=== PATIENT | female | born 1960 | race Caucasian/White ===

== ENCOUNTER 2023-01-17 10:10 | Inpatient (IN) | payer SELFPAY ==
[2023-01-17] VITALS (116 sets, daily range): BP systolic 42–114; BP diastolic 0–79; PULSE 64–83; RESP 14–33; TEMP 36.5–37; O2SAT 20–100; BMI 17.4
--- NOTE | 2023-01-17 10:31 | ECG_ITS ---
[facility] Test Date: 2023-01-17 Pat Name: LESVIA MALDONADO Department: Room: - Gender: Female Credit Support Specialist: : 1960 Requested By: [id number] Order Number: [id number] Reading MD: VANESSA CAVAZOS Measurements Intervals [place] Rate: 74 P: 67 MO: 174 QRS: 61 QRSD: 94 T: 66 QT: 412 QTc: 439 Interpretive Statements 1100 Sinus rhythm 1470 with occasional supraventricular premature complexes 9140 abnormal rhythm ECG No previous ECG available for comparison Electronically Signed On 01-18-2023 7:08:06 EDT by VANESSA CAVAZOS
--- NOTE | 2023-01-17 10:33 | ED.GENADUL1 ---
HPI - General Adult General Chief complaint: Nausea/Vomiting/Diarrhea Stated complaint: GENERAL WEAKNESS Time Seen by Provider: 01/17/23 10:17 Source: patient and family Limitations: no limitations History of Present Illness HPI narrative: 62-year-old female presents for weakness. She's been feeling this way for a few days. She's been having diarrhea. She has a history of rectal cancer and last had radiation about three weeks ago. She has not been vomiting and hasn't had a fever. She is not complaining of abdominal or fever. No cough or shortness of breath. She's been feeling weak. Related Data Home Medications Medication Instructions Recorded Confirmed benzonatate 100 mg capsule 100 mg PO TID PRN cough 01/17/23 01/17/23 buspirone 5 mg tablet 5 mg PO BID 01/17/23 01/17/23 capecitabine 500 mg tablet 1,500 mg PO BID PRN radiologic 01/17/23 01/17/23 visualization cetirizine 10 mg capsule (All Day 10 mg PO DAILY 01/17/23 01/17/23 Allergy (cetirizine)) diphenoxylate-atropine 2.5 1 tab PO BID 01/17/23 01/17/23 mg-0.025 mg tablet famotidine 20 mg tablet 20 mg PO BID 01/17/23 01/17/23 hydroxyzine pamoate 25 mg capsule 25 mg PO BEDTIME 01/17/23 01/17/23 lidocaine 5 % topical cream 1 applic topical TID PRN pain 01/17/23 01/17/23 (AneCream5) naloxone 4 mg/actuation nasal spray 4 mg intranasal Q3M 01/17/23 01/17/23 oxycodone 5 mg tablet 5 mg PO Q6H PRN pain 01/17/23 01/17/23 prochlorperazine maleate 10 mg 10 mg PO Q6H PRN nausea and 01/17/23 01/17/23 tablet (Compazine) vomiting sertraline 50 mg tablet 50 mg PO DAILY 01/17/23 01/17/23 silver sulfadiazine 1 % topical 1 applic topical BID 01/17/23 01/17/23 cream (Silvadene) Allergies Allergy/AdvReac Type Severity Reaction Status Date / Time No Known Drug Allergies Allergy Verified 01/17/23 10:30 Review of Systems ROS Narrative A ten point review of systems is negative except as noted above. Exam Narrative Exam Narrative: Nurses note and vital signs reviewed and patient is not hypoxic. General: The patient appears well and in no apparent distress. Patient is resting comfortably on cart. Skin: Warm, dry, pallor noted. There is no rash noted. Head: Normocephalic, atraumatic Eye: Normal conjunctiva, no drainage Ears, Nose, Mouth, and Throat: oral mucosa is moist. Nares patent. Cardiovascular: Regular Rate and Rhythm Respiratory: Patient is in no distress, no accessory muscle use, lungs are clear to auscultation, no wheezing, rales or rhonchi Back: non-tender GI: soft and nontender Musculoskeletal: The patient has no evidence of calf tenderness, no pitting edema, symmetrical pulses noted bilaterally Neurological: A&O, normal speech Psychiatric: Cooperative Constitutional Vital Signs, click to edit/add: Last Vital Signs Temp 97.7 F 01/17/23 10:19 Pulse 68 01/17/23 12:10 Resp 14 01/17/23 12:10 BP 74/30 L 01/17/23 12:19 Pulse Ox 98 01/17/23 10:25 O2 Del Method Room Air 01/17/23 10:19 Course Vital Signs Vital signs: Vital Signs Temperature 97.7 F 01/17/23 10:19 Pulse Rate 71 01/17/23 10:19 Respiratory Rate 24 01/17/23 10:19 Blood Pressure 80/50 L 01/17/23 10:19 Pulse Oximetry 96 01/17/23 10:19 Oxygen Delivery Method Room Air 01/17/23 10:19 Temperature 97.7 F 01/17/23 10:19 Pulse Rate 68 01/17/23 12:10 Respiratory Rate 14 01/17/23 12:10 Blood Pressure 74/30 L 01/17/23 12:19 Pulse Oximetry 98 01/17/23 10:25 Oxygen Delivery Method Room Air 01/17/23 10:19 Medical Decision Making MDM Narrative Medical decision making narrative: the patient is hypotensive. She's been given IV fluids and blood is ordered. Hemoglobin is 7.0 and stool is heme negative. I do not have an available hemoglobin for comparison. Chest x-ray per radiologist suggested the possibility of pneumonia but she doesn't have a fever or cough or an elevated WBC and she's not complaining of shortness of breath. I've low clinical suspicion for pneumonia. Nonetheless she is covered with IV Rocephin and Zithromax. I do not suspect that her hypotension is secondary to the pneumonia or sepsis. Findings are discussed with the patient and she is being admitted. Differential Diagnosis Differential Diagnosis: acute kidney injury, anemia Lab Data Lab results reviewed: Yes I reviewed the patient's lab results Labs: Lab Results 01/17/23 01/17/23 Range/Units 10:40 12:44 WBC 12.1 H (4.0-11.0) 10^3/uL RBC 1.83 L (4.20-5.40) 10^6/uL Hgb 7.0 L (12.0-16.0) g/dL Hct 21.4 L* (36.0-48.0) % MCV 116.9 H (81.0-99.0) fL MCH 38.3 H (26.7-34.0) pg MCHC 32.7 (29.9-35.2) g/dL RDW 21.9 H (11.0-15.0) % Plt Count 175 (150-450) 10^3/uL MPV 11.3 (9.5-13.5) fL Seg Neuts % (Manual) 85.0 Band Neutrophils % 7.0 H (0-5) % Lymphocytes % (Manual) 2.0 L (20.5-60.0) % Monocytes % (Manual) 2.0 (1.7-12.0) % Eosinophils % (Manual) 3.0 (0.9-7.0) % Basophils % (Manual) 0.0 L (0.2-2.0) % Metamyelocytes % 1.0 Myelocytes % 1.0 Neutrophils # (Manual) 10.28 H (1.4-6.5) 10^3/uL Band Neutrophils # 0.8 H (0.0-0.3) 10^3/uL Lymphocytes # (Manual) 0.24 L (1.20-3.80) 10^3/uL Monocytes # (Manual) 0.24 L (0.30-0.80) 10^3/uL Eosinophils # (Manual) 0.36 (0.00-0.70) 10^3/uL Basophils # (Manual) 0.00 (0.00-0.10) 10^3/uL Metamyelocytes # 0.12 Myelocytes # 0.12 Hypochromasia 2+ Macrocytosis 2+ Target Cells 1+ Stomatocytes 1+ Sodium 132 L (136-145) mmol/L Potassium 3.2 L (3.5-5.1) mmol/L Chloride 98 (98-107) mmol/L Carbon Dioxide 21.4 (21.0-32.0) mmol/L Anion Gap 15.8 BUN 34.0 H (7.0-18.0) mg/dL Creatinine 1.16 H (0.55-1.02) mg/dL Est GFR ( Amer) 57 L (>=60) Est GFR (Non-Af Amer) 47 L (>=60) BUN/Creatinine Ratio 29.3 Glucose 125 H (74-106) mg/dL Lactate 1.9 (0.4-2.0) mmol/L Calcium 8.4 L (8.5-10.1) mg/dL Troponin I High Sens 50.7 (4.0-51.3) pg/mL Stool Occult Blood Negative Imaging Data Chest x-ray: Radiologist's impression: Procedure: XR chest 1V EXAMINATION: XR chest 1V HISTORY: weak , hypotension, doesn't feel well, history of anal cancer COMPARISON: No relevant comparison available. FINDINGS: LUNGS: Dense patchy opacities within the left upper lobe. VASCULATURE: No increased pulmonary vasculature. PLEURA: No pneumothorax, effusion, or pleural thickening. CARDIAC: No cardiomegaly or cardiac silhouette abnormality. MEDIASTINUM: No visible mass or adenopathy. BONES: No fracture or visible bone lesion. OTHER: Negative. IMPRESSION: 1. Suspect left upper lobe pneumonia. A mass cannot be excluded. Follow-up chest x-ray after treatment is recommended to document clearing. Electronically authenticated by: SARAH MACIAS Date: 01/17/2023 13: Discharge Plan Discharge Chief Complaint: Nausea/Vomiting/Diarrhea Clinical Impression: Acute hypotension, Anemia, Lung mass Patient Disposition: Admitted As Inpatient Time of Disposition Decision: 14:37 Condition: Good Prescriptions / Home Meds: No Action buspirone 5 mg tablet 5 mg PO BID benzonatate 100 mg capsule 100 mg PO TID PRN (Reason: cough) capecitabine 500 mg tablet 1,500 mg PO BID PRN (Reason: radiologic visualization) Rx Instructions: TAKE 3 TABLETS 12 HR APART MON-FRI ON EACH DAY OF RADIATION All Day Allergy (cetirizine) 10 mg capsule 10 mg PO DAILY diphenoxylate-atropine 2.5-0.025 mg tablet 1 tab PO BID famotidine 20 mg tablet 20 mg PO BID hydroxyzine pamoate 25 mg capsule 25 mg PO BEDTIME lidocaine [AneCream5] 5 % cream 1 applic topical TID PRN (Reason: pain) naloxone 4 mg/actuation spray,non-aerosol 4 mg intranasal Q3M Rx Instructions: spray 1 dose into ONE nostril; alternate nostrils w each dose until help arrives oxycodone 5 mg tablet 5 mg PO Q6H PRN (Reason: pain) prochlorperazine maleate [Compazine] 10 mg tablet 10 mg PO Q6H PRN (Reason: nausea and vomiting) sertraline 50 mg tablet 50 mg PO DAILY silver sulfadiazine [Silvadene] 1 % cream 1 applic topical BID Rx Instructions: apply a 1.5 mm thickness Referrals: Physician,Non-Staff, MD [Primary Care Provider] - 1 week
[2023-01-17] MEDS: 0.9 % SODIUM CHLORIDE 1,000 ML 1000 ML IV ×3 (10:48→16:23)
[2023-01-17 10:50] LABS: Mean Corpuscular HGB Conc 32.7 g/dL (29.9-35.2); Mean Corpuscular Hemoglobin 38.3 pg (26.7-34.0); Mean Corpuscular Volume 116.9 fL (81.0-99.0); Mean Platelet Volume 11.3 fL (9.5-13.5); Platelet Count 175 10^3/uL (150-450); Red Blood Count 1.83 10^6/uL (4.20-5.40); Red Cell Distribution Width 21.9 % (11.0-15.0); White Blood Count 12.1 10^3/uL (4.0-11.0)
[2023-01-17 10:53] LABS: Hematocrit 21.4 % (36.0-48.0)
[2023-01-17 11:19] LABS: Anion Gap 15.8; BUN Creatinine Ratio 29.3; Calcium 8.4 mg/dL (8.5-10.1); Carbon Dioxide 21.4 mmol/L (21.0-32.0); Chloride 98 mmol/L (98-107); Estimated GFR (African America 57 (>=60); Estimated GFR (Non-African Ame 47 (>=60); Glucose 125 mg/dL (74-106); Potassium 3.2 mmol/L (3.5-5.1); Sodium 132 mmol/L (136-145)
[2023-01-17 11:30] LABS: Troponin I High Sensitivity 50.7 pg/mL (4.0-51.3)
[2023-01-17 11:35] LABS: Band Neutrophils Absolute 0.8 10^3/uL (0.0-0.3); Segmented Neut Absolute Manual 10.28 10^3/uL (1.4-6.5)
[2023-01-17 11:36] LABS: Eosinophils Absolute Manual 0.36 10^3/uL (0.00-0.70); Lymphocytes Absolute Manual 0.24 10^3/uL (1.20-3.80); Metamyelocytes Absolute Manual 0.12; Monocytes Absolute Manual 0.24 10^3/uL (0.30-0.80); Myelocytes Absolute Manual 0.12
[2023-01-17 11:37] LABS: Hypochromasia 2+
[2023-01-17 11:38] LABS: Macrocytosis 2+; Stomatocytes 1+; Target Cells 1+
--- NOTE | 2023-01-17 12:53 | XR_ITS ---
The [address] [address] Patient Name: LESVIA MALDONADO MRN: [id number] date: 1960 Sex: F Assigned Patient Location: ER Current Patient Location: ER Accession/Order Number: [id number] Exam Date: 01/17/2023 12:48 Report Date: 01/17/2023 13:25 At the request of: ANITRA LOVE Procedure: XR chest 1V EXAMINATION: XR chest 1V HISTORY: weak , hypotension, doesn't feel well, history of anal cancer COMPARISON: No relevant comparison available. FINDINGS: LUNGS: Dense patchy opacities within the left upper lobe. VASCULATURE: No increased pulmonary vasculature. PLEURA: No pneumothorax, effusion, or pleural thickening. CARDIAC: No cardiomegaly or cardiac silhouette abnormality. MEDIASTINUM: No visible mass or adenopathy. BONES: No fracture or visible bone lesion. OTHER: Negative. XR/XR chest 1V IMPRESSION: 1. Suspect left upper lobe pneumonia. A mass cannot be excluded. Follow-up chest x-ray after treatment is recommended to document clearing. Electronically authenticated by: SARAH MACIAS Date: 01/17/2023 13:25
[2023-01-17] MEDS: CEFTRIAXONE 1,000 MG in 0.9 % SODIUM CHLORIDE 50 ML 100 MG IV (13:49)
[2023-01-17 13:51] LABS: Occult Blood Negative
[2023-01-17 14:00] LABS: Lactate/Lactic Acid 1.9 mmol/L (0.4-2.0)
[2023-01-17] MEDS: AZITHROMYCIN 500 MG in 0.9 % SODIUM CHLORIDE 250 ML 250 MG IV (14:17)
[2023-01-17 15:24] LABS: Hematocrit 15.8 % (36.0-48.0); Hemoglobin 5.1 g/dL (12.0-16.0)
--- NOTE | 2023-01-17 15:55 | P.HP_ITS ---
Patient seen and examined, agree with assessment and plan below. Presented with hypotension and anemia. C/o cough and SOB and found pneumonia. Started on zosyn. Continued IV fluids and gave 2 units PRBC. Monitor Hgb. BP continued to decline and started levophed. Monitor labs. Diagnosis: 1. Septic shock 2. Pnemonia 3. Anemia due to chemo 4.HERB 5. Dehydration 6. Radiaton colitis 7. Hypokalemia 8. Hyponatremia 9. Rectal cancer 10. PCM H&P: HPI History of Present Illness Chief complaint: SEPSIS/PNA/HYPOTENSION/HERB/DEHYDRATION/ANEMIA Narrative: Date/Time of exam: 01/17/23 4386 This is a 62-year-old female patient with a past medical history significant for anal cancer s/p 6-week course of chemotherapy and radiation, depression, And environmental allergies; who presented to the ED today complaining of severe generalized weakness and fatigue. The patient was diagnosed with rectal cancer approximately 1 year ago. She was initiated on a 6-week course of chemotherapy and radiation in October and this was completed at the end of November. Since the completion of her therapy she has had almost daily diarrhea. She has not noted any blood in her stool. She does not complain of abdominal cramping or pain with her diarrhea and denies any significant nausea and vomiting. She has had a very poor appetite over the last month. She began coughing about 10 days ago which is intermittently productive of clear sputum. She reports subjective fevers and chills with measured a low-grade temperature of 99.4 at least once at home. She reports being lightheaded and severely weak for the last week. When she was having difficulty ambulating from the bed to the bathroom she decided to present to the ED for further evaluation. Work-up in the ED revealed significant abnormalities including anemia (7.0), leukocytosis (12.1), mild hyponatremia (132), hypokalemia (3.2), HERB (BUN 34, CR 1.16, EGFR 47). A Lactic acid was 1.9, troponin 50.7, and a fecal occult blood was negative for occult bleeding. Chest x-ray revealed a left upper lobe pneumonia which cannot exclude mass. The patient's blood pressure was very low, initially 80/50 but dropped down to 43/30 during her time in the ED. She was treated with 2 L of IVF boluses and 2 units of PRBCs have been ordered. A repe at [facility] that was obtained just prior to blood administration revealed her hemoglobin had dropped to 5.1, likely from hemodilution. The patient is being admitted as an inpatient to the hospitalist service in ICU with suspected sepsis from pneumonia, severe hypotension/septic shock, severe anemia, left upper lobe pneumonia, HERB, hyponatremia, and hypokalemia. At the time of my exam the patient is resting on a cart in the ED with her spouse at the bedside. She is very pale and somewhat lethargic but remains awake and cooperative with exam and oriented x3. She is cachectic and reports very poor appetite for the last month. She denies chest pain, shortness of breath, significant nausea and vomiting, abdominal pain or any other acute complaint other than noted above. She has noted significant lightheadedness and severe fatigue over the last 1 week. After discussion with the patient and her spouse at the bedside she confirms that she is a full code. Review of Systems ROS Status of ROS 10 or more systems reviewed and unremarkable except as noted in history and below [facility] Medical History (Updated 01/18/23 @ 09:04 by Pratibha Powers NP) Acute hypotension ?I95.9 - Hypotension, unspecified (ICD-10) Anemia ?D64.9 - Anemia, unspecified (ICD-10) Depression ?F32.A - Depression, unspecified (ICD-10) Diarrhea ?R19.7 - Diarrhea, unspecified (ICD-10) GERD (gastroesophageal reflux disease) ?K21.9 - Gastro-esophageal reflux disease without esophagitis (ICD-10) Lung mass ?R91.8 - Other nonspecific abnormal finding of lung field (ICD-10) Meds Home Medications and Allergies Home Medications Medication Instructions Recorded Confirmed Type benzonatate 100 mg capsule 100 mg PO TID PRN cough 01/17/23 01/17/23 History buspirone 5 mg tablet 5 mg PO BID 01/17/23 01/17/23 History capecitabine 500 mg tablet 1,500 mg PO BID PRN radiologic 01/17/23 01/17/23 History visualization cetirizine 10 mg capsule (All Day 10 mg PO DAILY 01/17/23 01/17/23 History Allergy (cetirizine)) diphenoxylate-atropine 2.5 1 tab PO BID 01/17/23 01/17/23 History mg-0.025 mg tablet famotidine 20 mg tablet 20 mg PO BID 01/17/23 01/17/23 History hydroxyzine pamoate 25 mg capsule 25 mg PO BEDTIME PRN sleep 01/17/23 01/17/23 History lidocaine-prilocaine 2.5 %-2.5 % 1 applic topical TID PRN pain 01/17/23 01/17/23 History topical cream naloxone 4 mg/actuation nasal spray 4 mg intranasal Q3M 01/17/23 01/17/23 History oxycodone 5 mg tablet 5 mg PO Q6H PRN pain 01/17/23 01/17/23 History pantoprazole 20 mg tablet,delayed 20 mg PO DAILY 01/17/23 01/17/23 History release (Protonix) prochlorperazine maleate 10 mg 10 mg PO Q6H PRN nausea and 01/17/23 01/17/23 History tablet (Compazine) vomiting sertraline 50 mg tablet 50 mg PO DAILY 01/17/23 01/17/23 History silver sulfadiazine 1 % topical 1 applic topical BID 01/17/23 01/17/23 History cream (Silvadene) Allergies Allergy/AdvReac Type Severity Reaction Status Date / Time No Known Drug Allergies Allergy Verified 01/17/23 10:30 Exam Constitutional Vital Signs, click to edit/add: Last Vital Signs Temp 97.7 F 01/17/23 10:19 Pulse 69 01/17/23 15:20 Resp 15 01/17/23 15:20 BP 78/0 L 01/17/23 15:20 Pulse Ox 98 01/17/23 10:25 O2 Del Method Room Air 01/17/23 10:19 Documenting provider has reviewed patient's vital signs: yes Common normals: oriented x3 and alert General appearance: cooperative, anxious, lethargic and frail appearing Nutritional appearance: cachectic Orientation/consciousness: Yes awake HENMT Common normals: normocephalic, head/scalp atraumatic, hearing grossly normal bilaterally, external ears normal and external nose normal; oral mucous membranes not moist (very dry) and gingiva not normal (very pale) Head and scalp: normocephalic and atraumatic Face and sinus: normal facial exam Nose: external nose normal External ear: external ears normal Mouth: tongue not abnormal Eye Common normals: PERRL, EOMs intact bilaterally and no scleral icterus; conjunctivae abnormal (very pale) General eye: normal appearance of both eyes Alignment: alignment normal Eyelid: eyelids normal Pupil: PERRL Neck & C-Spine Common normals: full ROM, supple and no JVD Chest Common normals: inspection of chest normal Chest: symmetrical chest wall rise Respiratory Common normals: normal respiratory effort, no retractions, no use of accessory muscles and clear to auscultation bilaterally Effort & inspection: able to speak in complete sentences Auscultation: clear to auscultation bilaterally Cardio Common normals: no JVD, regular rate, regular rhythm, S1 normal heart sound, S2 normal heart sound, no gallops, no clicks, no murmurs, no rub and peripheral pulses 2+ throughout Rate: regular rate Rhythm: regular rhythm Heart sounds: S1 normal and S2 normal Peripheral pulses: pulses 2+ throughout GI Common normals: Normal to inspection, nondistended, normoactive bowel sounds present, soft to palpation, non-tender, no hepatosplenomegaly, no masses and no bruits Palpation: soft and no hepatosplenomegaly Bladder/kidney exam: bladder normal to palpation Bimanual exam- vagina & uterus: bladder normal to palpation Back & Pelvis Common normals: thoracic and lumbar spine normal to inspection Extremity Common normals: normal capillary refill and no pedal edema General: normal exam except as noted; no clubbing and no cyanosis Neuro [place] Coma Scale: document GCS findings [place] coma scale eye opening: Spontaneous Cira coma scale verbal response: Orientated Cira coma scale motor response: Obey commands Cira coma scale total score: 15 Common normals: oriented x3, CN's II-XII intact bilaterally, moves all extremities, no focal motor deficits and no sensory deficits noted Sensorium/orientation: awake and alert Speech: speech normal Motor exam: strength 5/5 throughout Psych Common normals: mental status grossly normal, thought process normal, affect normal and activity/motor behavior normal Thought process: normal thought process Results Labs Labs: Short CBC 01/17/23 01/17/23 Range/Units 10:40 14:49 WBC 12.1 H (4.0-11.0) 10^3/uL Hgb 7.0 L 5.1 L* (12.0-16.0) g/dL Hct 21.4 L* 15.8 L* (36.0-48.0) % Plt Count 175 (150-450) 10^3/uL BMP 01/17/23 10:40 Sodium 132 L Potassium 3.2 L Chloride 98 Carbon Dioxide 21.4 BUN 34.0 H Creatinine 1.16 H Glucose 125 H Calcium 8.4 L Pulse Oximetry Attestation: I have reviewed the pertinent pulse oximetry results. ECG Attestation: ?I have reviewed the pertinent ECG results. Prior ECG tracings: not available for review Interpretation: Interpretive Statements 1100 Sinus rhythm 1470 with occasional supraventricular premature complexes 9140 abnormal rhythm ECG No previous ECG available for comparison Imaging Chest x-ray: Attestation: I have reviewed the pertinent imaging results. Radiologist's impression: IMPRESSION: 1. Suspect left upper lobe pneumonia. A mass cannot be excluded. Follow-up chest x-ray after treatment is recommended to document clearing. Assessment and Plan Assessment and Plan (1) Septic shock: Assessment and Plan: ACUTE * Adm inpatient to ICU * Suspected 2/2 to Pneumonia in an immunosuppressed pt * Severe volume contraction, in setting of dehydration and severe anemia, is at least contributing if not the primary cause of severe hypotension * Sepsis AEB: * SEP1 criteria: RR 24, WBC 12.1, MAP 60, Source - LEI PNA * SEP3 criteria: qSOFA of 2 (SBP 43-80, RR 24-33), Source - LEI PNA * 2 liters IVF boluses given in ED. Give a 3rd liter bolus now * Meets 30 ml/kg bolus + * delayed cap refill but no mottling * Pt alert and oriented, somewhat lethargic * 2un PRBCs ordered - transfuse now * Likely initiate levophed gtt per ICU protocol to keep MAP > 65 if BP does not stabilize after 3rd bolus * Lactic acid WNL but borderline at 1.9 - repeat now * Procalcitonin now * CMP now for full end organ evaluation * IVPB ABX as noted below * BC x 2 drawn in ED (2) Pneumonia: Assessment and Plan: ACUTE * LEI infiltrate noted CXR * Cough and subjective fever/chills x 10 days * Cannot r/o lung mass based on imaging * Repeat CXR in AM * Consider CT chest pending clinical course * IVPB Rocephin & Azithromycin given in ED. D/C * Start Zosyn IVPB for broad gram neg coverage including pseudomonas in immunosuppressed pt * Low threshold to add broader gram pos coverage like vanco pending clinical course * CBC, CMP daily (3) Dehydration: Assessment and Plan: ACUTE * 2/2 prolonged diarrhea and poor oral intak * 3 Liter IVF boluses then LR at 125/hr * CMP in AM (4) HERB (acute kidney injury): Assessment and Plan: ACUTE * Likely d/t dehydration and volume contraction - SE of chemotherapy also possible * IVFs as above * Hold renal toxic meds if any * repeat CMP in AM (5) Anemia associated with chemotherapy: Assessment and Plan: ACUTE * Hgb 7.0 in ED, down to 5.1 post 2L IVF boluses * Suspect 2/2 chemotherapy and depressed RBC production * No evidence of active bleeding * Pt denies black or bloody stools * FOB neg in ED * 2 un PRBCs ordered to transfuse - pending * HH q6h for now for close monitoring * Protonix IVP for GI protection * CBC daily (6) Hypokalemia: Assessment and Plan: ACUTE * Suspect GI losses w/ persistent diarrhea. 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 * Suspected * Significant daily diarrhea x 1 month or more since radiation treatments * Obtain c-diff to ensure no infectious origin * Consider oncology consult pending clinical course * Consider lamotil once c-diff is negative (9) Protein-calorie malnutrition, severe: Assessment and Plan: SUB-ACUTE * Weight loss d/t poor appetite, chemotherapy/radiation, active cancer * Ballast Cleaning Operator consult * Strict I&O * Daily weights (10) Depression: Assessment and Plan: CHRONIC * Continue home SSRI (11) GERD (gastroesophageal reflux disease): Assessment and Plan: CHRONIC * Hold home famotidine * Start daily IVP PPI (12) Rectal cancer: Assessment and Plan: CHRONIC * Defer to outpatient management per oncology at [facility]
[2023-01-17] MEDS: POTASSIUM CHLORIDE 40 MEQ in 0.9 % SODIUM CHLORIDE 250 ML 67.5 MEQ IV ×2 (17:00→22:53)
[2023-01-17] MEDS: POTASSIUM CHLORIDE 10 MEQ ER TABLET 40 MEQ PO (17:06)
[2023-01-17] MEDS: PANTOPRAZOLE SODIUM 40 MG VIAL IV (17:06)
[2023-01-17] MEDS: LACTATED RINGER'S SOLUTION 1,000 ML 125 ML IV (17:11)
[2023-01-17 17:32] LABS: Lactate/Lactic Acid 0.8 mmol/L (0.4-2.0)
[2023-01-17] MEDS: NOREPINEPHRINE BITARTRATE 4 MG in DEXTROSE 5 % IN WATER 250 ML 38.1 MG IV ×2 (17:45→23:36)
[2023-01-17 18:15] LABS: Adenovirus NOT DETECTED (NOT DETECTE); Bordetella parapertussis NOT DETECTED (NOT DETECTE); Coronavirus 229E NOT DETECTED (NOT DETECTE); Coronavirus HKU1 NOT DETECTED (NOT DETECTE); Coronavirus NL63 NOT DETECTED (NOT DETECTE); Coronavirus OC43 NOT DETECTED (NOT DETECTE); Human Metapneumovirus NOT DETECTED (NOT DETECTE); Human Rhinovirus/Enterovirus NOT DETECTED (NOT DETECTE); Influenza A NOT DETECTED (NOT DETECTE); Influenza B NOT DETECTED (NOT DETECTE); Mycoplasma pneumoniae NOT DETECTED (NOT DETECTE); Parainfluenza Virus 1 NOT DETECTED (NOT DETECTE); Parainfluenza Virus 2 NOT DETECTED (NOT DETECTE); Parainfluenza Virus 3 NOT DETECTED (NOT DETECTE); Parainfluenza Virus 4 NOT DETECTED (NOT DETECTE); Respiratory Syncytial Virus NOT DETECTED (NOT DETECTE); SARS-CoV-2 NOT DETECTED (NOT DETECTE)
[2023-01-17] MEDS: PIPERACILLIN SODIUM/TAZOBACTAM 3.375 GM in 0.9 % SODIUM CHLORIDE 50 ML IV (22:53)
[2023-01-17 22:59] LABS: Hematocrit 28.4 % (36.0-48.0); Hemoglobin 9.3 g/dL (12.0-16.0)
[2023-01-18] VITALS (96 sets, daily range): BP systolic 68–156; BP diastolic 37–130; PULSE 62–87; RESP 12–33; TEMP 36.6–36.9; O2SAT 93–98
[2023-01-18] MEDS: LACTATED RINGER'S SOLUTION 1,000 ML 125 ML IV ×2 (00:32→08:53)
[2023-01-18 03:48] LABS: Basophils Percent Auto 0.2 % (0.2-2.0); Eosinophils Percent Auto 0.2 % (0.9-7.0); Hemoglobin 9.1 g/dL (12.0-16.0); Immature Granulocytes Abs Auto 0.39 10^3/uL (0.00-0.03); Immature Granulocytes Pct Auto 2.3 % (0.0-0.5); Lymphocytes Absolute Auto 0.2 10^3/uL (1.2-3.8); Lymphocytes Percent Auto 1.2 % (20.5-60.0); Mean Corpuscular HGB Conc 33.7 g/dL (29.9-35.2); Mean Corpuscular Hemoglobin 35.3 pg (26.7-34.0); Mean Corpuscular Volume 104.7 fL (81.0-99.0); Mean Platelet Volume 10.8 fL (9.5-13.5); Monocytes Absolute Auto 0.9 10^3/uL (0.3-0.8); Monocytes Percent Auto 5.3 % (1.7-12.0); Neutrophils Absolute Auto 15.6 10^3/uL (1.4-6.5); Neutrophils Percent Auto 90.8 % (43.0-75.0); Platelet Count 179 10^3/uL (150-450); Red Blood Count 2.58 10^6/uL (4.20-5.40); Red Cell Distribution Width 24.9 % (11.0-15.0); White Blood Count 17.2 10^3/uL (4.0-11.0)
[2023-01-18 04:07] LABS: Alanine Aminotransferase 17 U/L (14-59); Albumin Globulin Ratio 0.5; Albumin Level 1.7 g/dL (3.4-5.0); Alkaline Phosphatase 219 U/L (46-116); Anion Gap 11.7; Aspartate Amino Transferase 34 U/L (15-37); BUN Creatinine Ratio 20.4; Bilirubin Total 1.1 mg/dL (0.2-1.0); Calcium 7.5 mg/dL (8.5-10.1); Carbon Dioxide 20.6 mmol/L (21.0-32.0); Chloride 107 mmol/L (98-107); Estimated GFR (African America >60 (>=60); Estimated GFR (Non-African Ame 57 (>=60); Globulin 3.4 g/dL; Glucose 130 mg/dL (74-106); Potassium 5.3 mmol/L (3.5-5.1); Sodium 134 mmol/L (136-145); Total Protein 5.1 g/dL (6.4-8.2)
[2023-01-18] MEDS: PIPERACILLIN SODIUM/TAZOBACTAM 3.375 GM in 0.9 % SODIUM CHLORIDE 50 ML IV ×3 (06:05→21:09)
--- NOTE | 2023-01-18 07:00 | XR_ITS ---
The [address] [address] Patient Name: LESVIA MALDONADO MRN: [id number] date: 1960 Sex: F Assigned Patient Location: ICU Current Patient Location: ICU Accession/Order Number: [id number] Exam Date: 01/18/2023 06:20 Report Date: 01/18/2023 07:13 At the request of: CATALINO KELLEY Procedure: XR chest 1V EXAMINATION: XR chest 1V HISTORY: PNA surveillance COMPARISON: XR chest 01/17/2023 FINDINGS: LUNGS: Dense patchy and confluent opacities within left upper lobe. Right lung is clear. VASCULATURE: No increased pulmonary vasculature. PLEURA: No pneumothorax, effusion, or pleural thickening. CARDIAC: No cardiomegaly or cardiac silhouette abnormality. MEDIASTINUM: No visible mass or adenopathy. BONES: No fracture or visible bone lesion. OTHER: Negative. XR/XR chest 1V IMPRESSION: 1. Marked infiltrates within left upper lobe; increased since prior study. Electronically authenticated by: SARAH MACIAS Date: 01/18/2023 07:13
[2023-01-18] MEDS: NOREPINEPHRINE BITARTRATE 4 MG in DEXTROSE 5 % IN WATER 250 ML 38.1 MG IV ×2 (07:37→14:53)
[2023-01-18 08:54] LABS: Alanine Aminotransferase 42 U/L (14-59); Albumin Globulin Ratio 0.5; Albumin Level 2.1 g/dL (3.4-5.0); Alkaline Phosphatase 276 U/L (46-116); Aspartate Amino Transferase 105 U/L (15-37); Bilirubin Total 0.5 mg/dL (0.2-1.0); Total Protein 6.1 g/dL (6.4-8.2)
[2023-01-18] MEDS: SERTRALINE HCL 50 MG TABLET PO (09:08)
[2023-01-18] MEDS: BUSPIRONE HCL 10 MG TABLET 5 MG PO ×2 (09:08→21:02)
[2023-01-18] MEDS: SILVER SULFADIAZINE 1% CREAM 25 GM TUBE 1 APPLIC TOPICAL ×2 (09:09→21:03)
[2023-01-18 10:10] LABS: Potassium 4.3 mmol/L (3.5-5.1)
[2023-01-18 10:20] LABS: Lactate/Lactic Acid 0.9 mmol/L (0.4-2.0)
--- NOTE | 2023-01-18 10:39 | CM.NOTE ---
Rounds made with Dr. Velazquez. Dr. Velazquez discussed plan of care with Amber. He will be adding Solumedrol IV, breathing treatments, Robitussin for cough and would like a stool sample collected. Would also like Amber to work with PT/OT for her c/o weakness. Amebr verbalizes agreement with all.
--- NOTE | 2023-01-18 10:49 | CM.NOTE ---
Discussed with Amber that I would have a Financial Counselor speak with her and see what we maybe able to help her with in regards to financial status. Amber was agreeable. Financial Counselors notified regarding self pay status
--- NOTE | 2023-01-18 11:06 | P.PN_ITS ---
Patient seen and examined, agree with assessment and plan. Hgb stable. BP remains low and wean levophed. Continue antibiotics. Added steroids and duoneb. Diagnosis: 1. Septic shock 2. Pnemonia 3. Anemia due to chemo 4.HERB 5. Dehydration 6. Radiaton colitis 7. Hypokalemia 8. Hyponatremia 9. Rectal cancer 10. PCM Progress Note: Subjective Subjective Interval history: Date/Time of Exam: 01/18/23 1008 The patient is currently resting in bed. She reports feeling better , stating I can breathe . She is not currently requiring O2 supplementation, but her respiratory rate was intermittently elevated above 30 overnight, but is currently well controlled. On my exam I do not appreciate wheezing but states lung sounds at the LEI are significantly diminished. Chest x-ray obtained this morning shows worsening infiltrate, likely because the patient has now been rehydrated. Patient is also requiring Levophed pressor support at this time but nursing will attempt to wean off if able to keep her map above 65. Her potassium level was elevated this morning above what was expected. We will repeat a potassium level now as this may reflect lab error. If in fact her potassium does remain elevated we will initiate treatment modalities as indicated. In general the patient's condition is improving but is still guarded. Exam Constitutional Vital Signs, click to edit/add: Last Vital Signs Temp 98.4 F 01/18/23 08:00 Pulse 75 01/18/23 08:00 Resp 18 01/18/23 08:00 BP 90/62 01/18/23 08:00 Pulse Ox 97 01/18/23 08:00 O2 Del Method Room Air 01/18/23 08:00 Common normals: no apparent distress, oriented x3 and alert General appearance: cooperative and other (Lethargy resolved) Nutritional appearance: cachectic Orientation/consciousness: Yes awake HENMT Common normals: normocephalic, head/scalp atraumatic and hearing grossly normal bilaterally Head and scalp: normocephalic and atraumatic Eye Common normals: PERRL, EOMs intact bilaterally, conjunctivae normal and no scleral icterus General eye: normal appearance of both eyes Conjunctiva: conjunctiva(e) normal Pupil: PERRL Neck & C-Spine Common normals: no JVD Chest Common normals: inspection of chest normal Chest: symmetrical chest wall rise Respiratory Common normals: normal respiratory effort, no use of accessory muscles and clear to auscultation bilaterally Effort & inspection: able to speak in complete sentences Auscultation: clear to auscultation bilaterally and diminished lung sounds (LEI) Cardio Common normals: no JVD, regular rate, regular rhythm, S1 normal heart sound, S2 normal heart sound, no gallops, no clicks, no murmurs, no rub and peripheral pulses 2+ throughout Rate: regular rate Rhythm: regular rhythm Heart sounds: S1 normal and S2 normal Peripheral pulses: pulses 2+ throughout GI Common normals: Normal to inspection, nondistended, normoactive bowel sounds present, soft to palpation, non-tender and no hepatosplenomegaly Palpation: soft and no hepatosplenomegaly Bladder/kidney exam: bladder normal to palpation Extremity Common normals: normal to inspection and no calf tenderness General: no clubbing, no cyanosis and no edema Neuro Common normals: oriented x3, CN's II-XII intact bilaterally, moves all extremities, no focal motor deficits and no sensory deficits noted Sensorium/orientation: awake and alert Psych Common normals: mental status grossly normal Progress Note: Objective Labs Labs: Short CBC 01/17/23 01/17/23 01/18/23 Range/Units 14:49 22:54 03:40 WBC 17.2 H (4.0-11.0) 10^3/uL Hgb 5.1 L* 9.3 L 9.1 L (12.0-16.0) g/dL Hct 15.8 L* 28.4 L 27.0 L (36.0-48.0) % Plt Count 179 (150-450) 10^3/uL BMP 01/17/23 01/18/23 01/18/23 10:40 03:40 09:49 Sodium 132 L 134 L Potassium 3.2 L 5.3 H 4.3 Chloride 98 107 Carbon Dioxide 21.4 20.6 L BUN 34.0 H 20.0 H Creatinine 1.16 H 0.98 Glucose 125 H 130 H Calcium 8.4 L 7.5 L Liver Function 01/17/23 01/18/23 Range/Units 10:40 03:40 Total Bilirubin 0.5 1.1 H (0.2-1.0) mg/dL AST 105 H 34 (15-37) U/L ALT 42 17 (14-59) U/L Alkaline Phosphatase 276 H 219 H (46-116) U/L Albumin 2.1 L 1.7 L (3.4-5.0) g/dL Pulse Oximetry Attestation: I have reviewed the pertinent pulse oximetry results. Imaging Chest x-ray: Attestation: I have reviewed the pertinent imaging results. Radiologist's impression: IMPRESSION: 1. Marked infiltrates within left upper lobe; increased since prior study. Progress Note: A&P Assessment and Plan (1) Septic shock: Assessment and Plan: ACUTE * Slightly improved - condition still guarded * Suspected 2/2 to Pneumonia in an immunosuppressed pt * Severe volume contraction, in setting of dehydration and severe anemia, is at least contributing if not the primary cause of severe hypotension * Sepsis AEB: * SEP1 criteria: RR 24, WBC 12.1, MAP 60, Source - LEI PNA * SEP3 criteria: qSOFA of 2 (SBP 43-80, RR 24-33), Source - LEI PNA * Pt currently on Levophed pressor support to keep MAP > 65 * Significant hypotension refractory to adequate fluid resuscitation and PRBC transfusions * Nursing to titrate down/off if BP supports this * Lactic acid remains WNL * Procalcitonin now - sendout, result pending * IVPB ABX as noted below * BC x 2 drawn in ED - result pending (2) Pneumonia: Assessment and Plan: ACUTE * LEI infiltrate noted on CXR on admission * Cough and subjective fever/chills x 10 days * Worsening on CXR today after pt rehydrated * Dyspnea/SOB improved today * Cannot r/o lung mass based on imaging * Consider CT chest pending clinical course * Continue Zosyn IVPB for broad gram neg coverage including pseudomonas in immunosuppressed pt * Add Vancomycin for broader gram pos coverage in immunosuppressed pt * Sputum culture if possible to guide ABX coverage * Add solumedrol, guaifenisen, and breathing tx today * Wheezing appreciated by attending physician on exam * Consider supplemental O2 if hypoxia or sustained tachypnea/dyspnea is noted * CBC, CMP daily (3) Anemia associated with chemotherapy: Assessment and Plan: ACUTE Laboratory Tests 01/17/23 01/17/23 01/17/23 10:40 14:49 22:54 Hgb 7.0 L 5.1 L* 9.3 L 01/18/23 03:40 Hgb 9.1 L * Improved/stable after 2 un PRBC transfusions overnight * Suspect 2/2 chemotherapy/radiation and depressed RBC production * No evidence of active bleeding * Pt denies black or bloody stools * FOB neg in ED * HH q6h x 2 more then d/c * Protonix IVP for GI protection * CBC daily (4) HERB (acute kidney injury): Assessment and Plan: ACUTE Laboratory Tests 01/17/23 01/17/23 01/17/23 10:40 10:40 10:40 BUN 34.0 H Creatinine 1.16 H Est GFR (Non-Af Amer) 47 L 01/18/23 01/18/23 01/18/23 03:40 03:40 03:40 BUN 20.0 H Creatinine 0.98 Est GFR (Non-Af Amer) 57 L * Improving/resolving * Likely d/t dehydration and volume contraction - SE of chemotherapy also possible * IVFs as above * Hold renal toxic meds if any * None noted * repeat CMP in AM (5) Dehydration: Assessment and Plan: ACUTE * Mildly improved but significant clinical dehydration persists * 2/2 prolonged diarrhea and poor oral intake * Continue LR at 125/hr * CMP in AM (6) Hypokalemia: Assessment and Plan: ACUTE Laboratory Tests 01/17/23 01/18/23 10:40 03:40 Potassium 3.2 L 5.3 H * Resolving - remains at risk of electrolyte disturbances * Suspect GI losses w/ persistent diarrhea. Poor po intake likely also contributing * AM K+ lab abnormally elevated. 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 * Suspected * Significant daily diarrhea x 1 month or more since radiation treatments * Obtain c-diff to ensure no infectious origin - specimen still pending * Consider oncology consult pending clinical course * Order home lamotil once c-diff is negative (9) Protein-calorie malnutrition, severe: Assessment and Plan: SUB-ACUTE * Weight loss d/t poor appetite, chemotherapy/radiation, active cancer * Spot Machine Operator consult * Strict I&O * Daily weights (10) Depression: Assessment and Plan: CHRONIC * Continue home SSRI (11) GERD (gastroesophageal reflux disease): Assessment and Plan: CHRONIC * Hold home famotidine * Start daily IVP PPI for gastric protection while inpatient (12) Rectal cancer: Assessment and Plan: CHRONIC * Defer to outpatient management per oncology at [facility]
--- NOTE | 2023-01-18 11:06 | PM.PN ---
Progress Note: Subjective Subjective Interval history: Date/Time of Exam: 01/18/23 1008 The patient is currently resting in bed. She reports feeling better , stating I can breathe . She is not currently requiring O2 supplementation, but her respiratory rate was intermittently elevated above 30 overnight, but is currently well controlled. On my exam I do not appreciate wheezing but states lung sounds at the LEI are significantly diminished. Chest x-ray obtained this morning shows worsening infiltrate, likely because the patient has now been rehydrated. Patient is also requiring Levophed pressor support at this time but nursing will attempt to wean off if able to keep her map above 65. Her potassium level was elevated this morning above what was expected. We will repeat a potassium level now as this may reflect lab error. If in fact her potassium does remain elevated we will initiate treatment modalities as indicated. In general the patient's condition is improving but is still guarded. Exam Constitutional Vital Signs, click to edit/add: Last Vital Signs Temp 98.4 F 01/18/23 08:00 Pulse 75 01/18/23 08:00 Resp 18 01/18/23 08:00 BP 90/62 01/18/23 08:00 Pulse Ox 97 01/18/23 08:00 O2 Del Method Room Air 01/18/23 08:00 Common normals: no apparent distress, oriented x3 and alert General appearance: cooperative and other (Lethargy resolved) Nutritional appearance: cachectic Orientation/consciousness: Yes awake [facility] Common normals: normocephalic, head/scalp atraumatic and hearing grossly normal bilaterally Head and scalp: normocephalic and atraumatic Eye Common normals: PERRL, EOMs intact bilaterally, conjunctivae normal and no scleral icterus General eye: normal appearance of both eyes Conjunctiva: conjunctiva(e) normal Pupil: PERRL Neck & C-Spine Common normals: no JVD Chest Common normals: inspection of chest normal Chest: symmetrical chest wall rise Respiratory Common normals: normal respiratory effort, no use of accessory muscles and clear to auscultation bilaterally Effort & inspection: able to speak in complete sentences Auscultation: clear to auscultation bilaterally and diminished lung sounds (LEI) Cardio Common normals: no JVD, regular rate, regular rhythm, S1 normal heart sound, S2 normal heart sound, no gallops, no clicks, no murmurs, no rub and peripheral pulses 2+ throughout Rate: regular rate Rhythm: regular rhythm Heart sounds: S1 normal and S2 normal Peripheral pulses: pulses 2+ throughout GI Common normals: Normal to inspection, nondistended, normoactive bowel sounds present, soft to palpation, non-tender and no hepatosplenomegaly Palpation: soft and no hepatosplenomegaly Bladder/kidney exam: bladder normal to palpation Extremity Common normals: normal to inspection and no calf tenderness General: no clubbing, no cyanosis and no edema Neuro Common normals: oriented x3, CN's II-XII intact bilaterally, moves all extremities, no focal motor deficits and no sensory deficits noted Sensorium/orientation: awake and alert Psych Common normals: mental status grossly normal Progress Note: Objective Labs Labs: Short CBC 01/17/23 01/17/23 01/18/23 Range/Units 14:49 22:54 03:40 WBC 17.2 H (4.0-11.0) 10^3/uL Hgb 5.1 L* 9.3 L 9.1 L (12.0-16.0) g/dL Hct 15.8 L* 28.4 L 27.0 L (36.0-48.0) % Plt Count 179 (150-450) 10^3/uL BMP 01/17/23 01/18/23 01/18/23 10:40 03:40 09:49 Sodium 132 L 134 L Potassium 3.2 L 5.3 H 4.3 Chloride 98 107 Carbon Dioxide 21.4 20.6 L BUN 34.0 H 20.0 H Creatinine 1.16 H 0.98 Glucose 125 H 130 H Calcium 8.4 L 7.5 L Liver Function 01/17/23 01/18/23 Range/Units 10:40 03:40 Total Bilirubin 0.5 1.1 H (0.2-1.0) mg/dL AST 105 H 34 (15-37) U/L ALT 42 17 (14-59) U/L Alkaline Phosphatase 276 H 219 H (46-116) U/L Albumin 2.1 L 1.7 L (3.4-5.0) g/dL Pulse Oximetry Attestation: I have reviewed the pertinent pulse oximetry results. Imaging Chest x-ray: Attestation: I have reviewed the pertinent imaging results. Radiologist's impression: IMPRESSION: 1. Marked infiltrates within left upper lobe; increased since prior study. Progress Note: A&P Assessment and Plan (1) Septic shock: Assessment and Plan: ACUTE Slightly improved - condition still guarded Suspected 2/2 to Pneumonia in an immunosuppressed pt Severe volume contraction, in setting of dehydration and severe anemia, is at least contributing if not the primary cause of severe hypotension Sepsis AEB: SEP1 criteria: RR 24, WBC 12.1, MAP 60, Source - LEI PNA SEP3 criteria: qSOFA of 2 (SBP 43-80, RR 24-33), Source - LEI PNA Pt currently on Levophed pressor support to keep MAP > 65 Significant hypotension refractory to adequate fluid resuscitation and PRBC transfusions Nursing to titrate down/off if BP supports this Lactic acid remains WNL Procalcitonin now - sendout, result pending IVPB ABX as noted below BC x 2 drawn in ED - result pending (2) Pneumonia: Assessment and Plan: ACUTE LEI infiltrate noted on CXR on admission Cough and subjective fever/chills x 10 days Worsening on CXR today after pt rehydrated Dyspnea/SOB improved today Cannot r/o lung mass based on imaging Consider CT chest pending clinical course Continue Zosyn IVPB for broad gram neg coverage including pseudomonas in immunosuppressed pt Add Vancomycin for broader gram pos coverage in immunosuppressed pt Sputum culture if possible to guide ABX coverage Add solumedrol, guaifenisen, and breathing tx today Wheezing appreciated by attending physician on exam Consider supplemental O2 if hypoxia or sustained tachypnea/dyspnea is noted CBC, CMP daily (3) Anemia associated with chemotherapy: Assessment and Plan: ACUTE Laboratory Tests 01/17/23 01/17/23 01/17/23 10:40 14:49 22:54 Hgb 7.0 L 5.1 L* 9.3 L 01/18/23 03:40 Hgb 9.1 L Improved/stable after 2 un PRBC transfusions overnight Suspect 2/2 chemotherapy/radiation and depressed RBC production No evidence of active bleeding Pt denies black or bloody stools FOB neg in ED HH q6h x 2 more then d/c Protonix IVP for GI protection CBC daily (4) HERB (acute kidney injury): Assessment and Plan: ACUTE Laboratory Tests 01/17/23 01/17/23 01/17/23 10:40 10:40 10:40 BUN 34.0 H Creatinine 1.16 H Est GFR (Non-Af Amer) 47 L 01/18/23 01/18/23 01/18/23 03:40 03:40 03:40 BUN 20.0 H Creatinine 0.98 Est GFR (Non-Af Amer) 57 L Improving/resolving Likely d/t dehydration and volume contraction - SE of chemotherapy also possible IVFs as above Hold renal toxic meds if any None noted repeat CMP in AM (5) Dehydration: Assessment and Plan: ACUTE Mildly improved but significant clinical dehydration persists 2/2 prolonged diarrhea and poor oral intake Continue LR at 125/hr CMP in AM (6) Hypokalemia: Assessment and Plan: ACUTE Laboratory Tests 01/17/23 01/18/23 10:40 03:40 Potassium 3.2 L 5.3 H Resolving - remains at risk of electrolyte disturbances Suspect GI losses w/ persistent diarrhea. Poor po intake likely also contributing AM K+ lab abnormally elevated. 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 Suspected Significant daily diarrhea x 1 month or more since radiation treatments Obtain c-diff to ensure no infectious origin - specimen still pending Consider oncology consult pending clinical course Order home lamotil once c-diff is negative (9) Protein-calorie malnutrition, severe: Assessment and Plan: SUB-ACUTE Weight loss d/t poor appetite, chemotherapy/radiation, active cancer Guest Experience Specialist consult Strict I&O Daily weights (10) Depression: Assessment and Plan: CHRONIC Continue home SSRI (11) GERD (gastroesophageal reflux disease): Assessment and Plan: CHRONIC Hold home famotidine Start daily IVP PPI for gastric protection while inpatient (12) Rectal cancer: Assessment and Plan: CHRONIC Defer to outpatient management per oncology at [facility]
[2023-01-18] MEDS: METHYLPREDNISOLONE SOD SUCC PF 125 MG/2 ML VIAL 60 MG IVP ×2 (12:03→17:09)
[2023-01-18] MEDS: VANCOMYCIN HCL 750 MG in 0.9 % SODIUM CHLORIDE 250 ML 250 MG IV (12:03)
--- NOTE | 2023-01-18 13:55 | PC.NURSE ---
1340- messaged to Miroslava Powers NP for oral BP meds and updated with recent BPS.
[2023-01-18] MEDS: LACTATED RINGER'S SOLUTION 1,000 ML 150 ML IV (14:56)
[2023-01-18] MEDS: 0.9 % SODIUM CHLORIDE 1,000 ML 1000 ML IV (14:57)
[2023-01-18 15:17] LABS: Hematocrit 26.5 % (36.0-48.0); Hemoglobin 8.8 g/dL (12.0-16.0)
[2023-01-18] MEDS: PANTOPRAZOLE SODIUM 40 MG VIAL IV (17:09)
[2023-01-18] MEDS: IPRATROPIUM/ALBUTEROL SULFATE 3 ML AMPUL.NEB IH (17:12)
--- NOTE | 2023-01-18 19:38 | RESP.RT ---
No PRN breathing tx given. No respiratory distress noted.
[2023-01-18] MEDS: NOREPINEPHRINE BITARTRATE 4 MG in DEXTROSE 5 % IN WATER 250 ML 30.48 MG IV (21:25)
[2023-01-18 21:31] LABS: Hematocrit 26.1 % (36.0-48.0); Hemoglobin 8.7 g/dL (12.0-16.0)
[2023-01-19] VITALS (19 sets, daily range): BP systolic 93–132; BP diastolic 63–83; PULSE 64–88; RESP 14–24; TEMP 36.2–36.7; O2SAT 92–98; BMI 18.8
[2023-01-19] MEDS: LACTATED RINGER'S SOLUTION 1,000 ML 150 ML IV ×2 (00:05→06:03)
[2023-01-19] MEDS: METHYLPREDNISOLONE SOD SUCC PF 125 MG/2 ML VIAL 60 MG IVP ×5 (00:05→23:10)
[2023-01-19] MEDS: VANCOMYCIN HCL 750 MG in 0.9 % SODIUM CHLORIDE 250 ML 250 MG IV ×3 (00:06→22:53)
[2023-01-19 05:10] LABS: Basophils Percent Auto 0.2 % (0.2-2.0); Hemoglobin 7.6 g/dL (12.0-16.0); Immature Granulocytes Abs Auto 0.16 10^3/uL (0.00-0.03); Immature Granulocytes Pct Auto 2.5 % (0.0-0.5); Lymphocytes Absolute Auto 0.2 10^3/uL (1.2-3.8); Lymphocytes Percent Auto 2.5 % (20.5-60.0); Mean Corpuscular HGB Conc 33.3 g/dL (29.9-35.2); Mean Corpuscular Hemoglobin 34.7 pg (26.7-34.0); Mean Corpuscular Volume 104.1 fL (81.0-99.0); Mean Platelet Volume 10.8 fL (9.5-13.5); Monocytes Absolute Auto 0.2 10^3/uL (0.3-0.8); Monocytes Percent Auto 3.5 % (1.7-12.0); Neutrophils Absolute Auto 5.7 10^3/uL (1.4-6.5); Neutrophils Percent Auto 91.3 % (43.0-75.0); Platelet Count 105 10^3/uL (150-450); Red Blood Count 2.19 10^6/uL (4.20-5.40); Red Cell Distribution Width 24.9 % (11.0-15.0); White Blood Count 6.3 10^3/uL (4.0-11.0)
[2023-01-19 05:18] LABS: Hematocrit 22.8 % (36.0-48.0)
[2023-01-19 05:32] LABS: Alanine Aminotransferase 14 U/L (14-59); Albumin Globulin Ratio 0.5; Albumin Level 1.4 g/dL (3.4-5.0); Alkaline Phosphatase 178 U/L (46-116); Anion Gap 13.7; Aspartate Amino Transferase 16 U/L (15-37); BUN Creatinine Ratio 13.4; Bilirubin Total 0.6 mg/dL (0.2-1.0); Calcium 7.5 mg/dL (8.5-10.1); Carbon Dioxide 18.4 mmol/L (21.0-32.0); Chloride 108 mmol/L (98-107); Estimated GFR (African America >60 (>=60); Estimated GFR (Non-African Ame >60 (>=60); Glucose 154 mg/dL (74-106); Potassium 4.1 mmol/L (3.5-5.1); Sodium 136 mmol/L (136-145); Total Protein 4.4 g/dL (6.4-8.2)
[2023-01-19] MEDS: PIPERACILLIN SODIUM/TAZOBACTAM 3.375 GM in 0.9 % SODIUM CHLORIDE 50 ML IV ×3 (06:03→22:33)
[2023-01-19 06:38] LABS: A. calcoaceticus-baumannii Cpx NOT DETECTED (NOT DETECTE); Bacteroides fragilis NOT DETECTED (NOT DETECTE); Candida albicans NOT DETECTED (NOT DETECTE); Candida auris NOT DETECTED (NOT DETECTE); Candida glabrata NOT DETECTED (NOT DETECTE); Candida krusei NOT DETECTED (NOT DETECTE); Candida parapsilosis NOT DETECTED (NOT DETECTE); Candida tropicalis NOT DETECTED (NOT DETECTE); Cryptococcus neoformans/gattii NOT DETECTED (NOT DETECTE); Enterobacter cloacae complex NOT DETECTED (NOT DETECTE); Enterobacterales NOT DETECTED (NOT DETECTE); Enterococcus faecalis NOT DETECTED (NOT DETECTE); Enterococcus faecium NOT DETECTED (NOT DETECTE); Haemophilus influenzae NOT DETECTED (NOT DETECTE); Klebsiella aerogenes NOT DETECTED (NOT DETECTE); Klebsiella pneumoniae group NOT DETECTED (NOT DETECTE); Listeria monocytogenes NOT DETECTED (NOT DETECTE); Neisseria meningitidis NOT DETECTED (NOT DETECTE); Proteus spp. NOT DETECTED (NOT DETECTE); Pseudomonas aeruginosa NOT DETECTED (NOT DETECTE); Salmonella spp. NOT DETECTED (NOT DETECTE); Serratia marcescens NOT DETECTED (NOT DETECTE); Staphylococcus lugdunensis NOT DETECTED (NOT DETECTE); Stenotrophomonas maltophilia NOT DETECTED (NOT DETECTE); Streptococcus agalactiae NOT DETECTED (NOT DETECTE); Streptococcus pneumoniae NOT DETECTED (NOT DETECTE); Streptococcus pyogenes NOT DETECTED (NOT DETECTE); Streptococcus spp. NOT DETECTED (NOT DETECTE)
--- NOTE | 2023-01-19 08:11 | SWNOTE1 ---
SW looked over therapy notes and HH and walker recommended. Pt is a true self pay and has no insurance. SW to let pt know if she would like Home Health and walker it would be out of pocket. SW to check cancer services for walker.
[2023-01-19 08:27] LABS: Staphylococcus epidermidis DETECTED (NOT DETECTE); Staphylococcus spp. DETECTED (NOT DETECTE); mecA/C DETECTED (NOT DETECTE)
--- NOTE | 2023-01-19 08:56 | SWNOTE1 ---
MAHAMED called and left message for cancer services in [place] to see if they have any walkers in stock. MAHAMED checked HH list and [facility] charges $150.00 per visit. MAHAMED has messages out to other HH companies as well.
--- NOTE | 2023-01-19 09:41 | SWNOTE1 ---
MAHAMED spoke with Cancer Services in [place], they do have all walkers in stock (walker with wheels, standard walker, and rollators). Pt will just need to fill out a form and bring with her when picking up walker. MAHAMED printed form from website and provided to patient. MAHAMED also gave pt a pamphlet in regards to Cancer services that has address and phone number on it as well. MAHAMED let her know they are open 9-3 Sunday thru Sunday. MAHAMED also let her know if she wants Home health it would be out of pocket. She was aware as case management let her know. MAHAMED is waiting to hear back from a few other HH companies to see if they are any cheaper.
[2023-01-19] MEDS: SERTRALINE HCL 50 MG TABLET PO (09:42)
[2023-01-19] MEDS: BUSPIRONE HCL 10 MG TABLET 5 MG PO ×2 (09:42→21:24)
[2023-01-19] MEDS: SILVER SULFADIAZINE 1% CREAM 25 GM TUBE 1 APPLIC TOPICAL ×2 (09:44→21:26)
--- NOTE | 2023-01-19 09:54 | SWNOTE1 ---
[facility] [place] is not able to take on any private pay at this time.
--- NOTE | 2023-01-19 10:00 | SWNOTE1 ---
AMHAMED spoke with [facility] and they will call back with pricing.
--- NOTE | 2023-01-19 10:06 | SWNOTE1 ---
[facility] HH is $150 per visit. [facility] HH is $180 for an eval and $120 per treament.
--- NOTE | 2023-01-19 11:18 | CM.NOTE ---
Rounds made with Dr. Velazquez, no discharge today. Pt will have blood transfusion and SW working on costs for HH services and getting home walker for pt.
--- NOTE | 2023-01-19 12:08 | P.PN_ITS ---
Patient seen and examined, agree with assessment and plan. Patient feels better this am and less SOB. Hgb decreased and will give blood. BP improved and off levophed. Continue antibiotics and steroids. Use duoneb PRN. Diagnosis: 1. Septic shock 2. Pnemonia 3. Anemia due to chemo 4.HERB 5. Dehydration 6. Radiaton colitis 7. Hypokalemia 8. Hyponatremia 9. Rectal cancer 10. PCM Progress Note: Subjective Subjective Interval history: Date/Time of Exam: 01/19/23 0945 The patient is again resting in bed during my exam. Her countenance is brighter and she reports feeling improved today. She notes specifically that her breathing continues improving, she is coughing less, and has less pleuritic pain on the left side. Pleuritic pain was not mentioned by this patient prior to today's visit, but phyllis notes onset of this discomfort approximately 10 days ago and it is notably better today. She also notes increased energy and feels less depressed. Her preliminary BCID panel resulted w/ MRSE today, but regular blood cultures remain negative x 48 hrs. This may represent contaminant, but the pt is receiving IVPB Vancomycin which is appropriate treatment if bacteremia w/ MRSE is confirmed. The respiratory panel was negative for all atypical and viral URI pathogens. We have not been able to collect a sputum sample to date. Her hemoglobin is dropping again today although no active bleeding is identified. She will receive an additional 1 unit of PRBCs this morning and we will repeat a hemoglobin after that is completed. An additional unit will be considered pending results. She likely will need Epoetin as an outpatient but we defer this to her managing oncology service. Nursing was able to wean off her Levophed drip during the night and her blood pressure remained stable with a MAP of 65 or greater since that time. Hopefully the patient will be able to be discharged within the next 24 to 48 hours if her condition continues to improve. ADDENDUM 1345: Nursing reports abrupt drop in BP again (72/54). Pt denies any change in subjective condition. No fevers or chills. PRBCs tx already completed. Levophed gtt reinitiated to keep MAP > 65. Give additional 1 liter bolus now. Repeat BC x 2 and lactic acid as immunosuppressed pt may not evidence usual immune response to sepsis/bacteremia. Pt to remain in ICU for close monitoring. Exam Constitutional Vital Signs, click to edit/add: Last Vital Signs Temp 97.7 F 01/19/23 10:20 Pulse 64 01/19/23 10:20 Resp 16 01/19/23 10:20 BP 101/67 01/19/23 10:20 Pulse Ox 98 01/19/23 10:00 O2 Del Method Room Air 01/19/23 10:20 O2 Flow Rate 95 01/18/23 15:45 Common normals: no apparent distress, oriented x3 and alert General appearance: cooperative and other (Lethargy resolved) Nutritional appearance: cachectic Orientation/consciousness: Yes awake HENMT Common normals: normocephalic, head/scalp atraumatic and hearing grossly normal bilaterally Head and scalp: normocephalic and atraumatic Eye Common normals: PERRL, EOMs intact bilaterally, conjunctivae normal and no scleral icterus General eye: normal appearance of both eyes Conjunctiva: conjunctiva(e) normal Pupil: PERRL Neck & C-Spine Common normals: no JVD Chest Common normals: inspection of chest normal Chest: symmetrical chest wall rise Respiratory Common normals: normal respiratory effort and no use of accessory muscles Effort & inspection: able to speak in complete sentences Auscultation: wheezes (faint, EE LLL squeek) and diminished lung sounds (LEI - improving ) Cardio Common normals: no JVD, regular rate, regular rhythm, S1 normal heart sound, S2 normal heart sound, no gallops, no clicks, no murmurs, no rub and peripheral pulses 2+ throughout Rate: regular rate Rhythm: regular rhythm Heart sounds: S1 normal and S2 normal Peripheral pulses: pulses 2+ throughout GI Common normals: Normal to inspection, nondistended, normoactive bowel sounds present, soft to palpation, non-tender and no hepatosplenomegaly Palpation: soft and no hepatosplenomegaly Bladder/kidney exam: bladder normal to palpation Extremity Common normals: normal to inspection and no calf tenderness General: no clubbing, no cyanosis and no edema Neuro Common normals: oriented x3, CN's II-XII intact bilaterally, moves all extremities, no focal motor deficits and no sensory deficits noted Sensorium/orientation: awake and alert Psych Common normals: mental status grossly normal Progress Note: Objective Labs Labs: Short CBC 01/18/23 01/18/23 01/19/23 Range/Units 15:02 21:24 04:45 WBC 6.3 (4.0-11.0) 10^3/uL Hgb 8.8 L 8.7 L 7.6 L (12.0-16.0) g/dL Hct 26.5 L 26.1 L 22.8 L* (36.0-48.0) % Plt Count 105 L (150-450) 10^3/uL BMP 01/19/23 04:45 Sodium 136 Potassium 4.1 Chloride 108 H Carbon Dioxide 18.4 L BUN 11.0 Creatinine 0.82 Glucose 154 H Calcium 7.5 L Liver Function 01/19/23 Range/Units 04:45 Total Bilirubin 0.6 (0.2-1.0) mg/dL AST 16 (15-37) U/L ALT 14 (14-59) U/L Alkaline Phosphatase 178 H (46-116) U/L Albumin 1.4 L (3.4-5.0) g/dL Progress Note: A&P Assessment and Plan (1) Septic shock: Assessment and Plan: ACUTE * Improving * Suspected 2/2 to Pneumonia in an immunosuppressed pt * Sepsis AEB: * SEP1 criteria: RR 24, WBC 12.1, MAP 60, Source - LEI PNA * SEP3 criteria: qSOFA of 2 (SBP 43-80, RR 24-33), Source - LEI PNA * Pt currently on Levophed pressor support to keep MAP > 65 * Pt weaned off levophed gtt last night after receiving an additional 1liter bolus * BP has remained stable w/ MAP > 65 since * Procalcitonin - sendout, result pending * IVPB ABX as noted below * BC x 2 drawn in ED - final result pending * BCID PCR resulted w/ MRSE today - unclear if this is contaminant * Regular BC plates remain neg x 48hrs * Adequate tx w/ IVPB Vanco if confirmed positive (2) Pneumonia: Assessment and Plan: ACUTE * Improving * LEI infiltrate noted on CXR on admission * Dyspnea/SOB/cough continue to improve * L chest wall pleuritic pain improving * Repeat CXR in AM * Cannot r/o lung mass based on imaging * Consider CT chest pending clinical course * Continue Zosyn IVPB for broad gram neg coverage including pseudomonas in immunosuppressed pt * Continue Vancomycin IVPB for broad gram pos coverage in immunosuppressed pt * Sputum culture if possible to guide ABX coverage - unable to obtain to date * Continue solumedrol, guaifenisen, and breathing tx * Wheezing improved * Consider supplemental O2 if hypoxia or sustained tachypnea/dyspnea is noted * CBC, CMP daily (3) Anemia associated with chemotherapy: Assessment and Plan: ACUTE Laboratory Tests 01/19/23 04:45 Hgb 7.6 L * Hgb trending down again today w/o active bleeding * Tx 1 un PRBCs now * Repeat HH 1 hr post tx - consider further tx pending result * Suspect 2/2 chemotherapy/radiation and depressed RBC production * Protonix IVP for GI protection * CBC daily (4) HERB (acute kidney injury): Assessment and Plan: ACUTE Laboratory Tests 01/19/23 04:45 BUN 11.0 Creatinine 0.82 Est GFR (Non-Af Amer) >60 * Resolved * repeat CMP in AM (5) Dehydration: Assessment and Plan: ACUTE * Improving * 2/2 prolonged diarrhea and poor oral intake * Continue LR at 150/hr, increased rate yesterday * CMP in AM (6) Hypokalemia: Assessment and Plan: ACUTE Laboratory Tests 01/19/23 04:45 Potassium 4.1 * Resolved * CMP daily (7) Acute hyponatremia: Assessment and Plan: ACUTE Laboratory Tests 01/19/23 04:45 Sodium 136 * Resolved (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 * Suspected * Significant daily diarrhea x 1 month or more since radiation treatments * Obtain c-diff to ensure no infectious origin - specimen still pending * Order home lamotil once c-diff is negative * Defer to OP management per established oncology service after discharge (9) Protein-calorie malnutrition, severe: Assessment and Plan: SUB-ACUTE * Weight loss d/t poor appetite, chemotherapy/radiation, active cancer * Sleeping Car Porter consult * Continue Strict I&O and Daily weights (10) Depression: Assessment and Plan: CHRONIC * Continue home SSRI (11) GERD (gastroesophageal reflux disease): Assessment and Plan: CHRONIC * Hold home famotidine * Start daily IVP PPI for gastric protection while inpatient (12) Rectal cancer: Assessment and Plan: CHRONIC * Defer to outpatient management per oncology at [facility]
[2023-01-19 12:57] LABS: Hematocrit 29.9 % (36.0-48.0)
[2023-01-19 12:58] LABS: Hemoglobin 9.7 g/dL (12.0-16.0)
[2023-01-19 13:56] LABS: C. Difficile PCR NEGATIVE (NEGATIVE)
[2023-01-19 15:03] LABS: Lactate/Lactic Acid 1.8 mmol/L (0.4-2.0)
[2023-01-19] MEDS: 0.9 % SODIUM CHLORIDE 1,000 ML 1000 ML IV (15:09)
--- NOTE | 2023-01-19 15:09 | SWNOTE1 ---
SW went back in and spoke with pt and significant other. SW asked if she wants to do the home health, private pay. She stated her sister will pay for it, but then asked if it was house cleaning, etc. SW let her know that home health is just physical therapy and occupational therapy. SW let her know that SW does have list of private caregivers that do offer that assistance. Pt is interested and will take list. SW to also print off home health company list as well so pt has it in case she does at some point feel she needs it. Pt did voice when she worked with therapy she did not give it her all, but she is feeling better now. She does not feel she will need PT/OT now at home.
[2023-01-19] MEDS: PANTOPRAZOLE SODIUM 40 MG VIAL IV (16:47)
[2023-01-19] MEDS: OXYCODONE HCL 5 MG TABLET PO (21:23)
[2023-01-19] MEDS: BENZONATATE 100 MG CAPSULE PO (21:24)
[2023-01-19] MEDS: NOREPINEPHRINE BITARTRATE 4 MG in DEXTROSE 5 % IN WATER 250 ML 15.24 MG IV (22:00)
[2023-01-19] MEDS: LACTATED RINGER'S SOLUTION 1,000 ML 125 ML IV (22:22)
[2023-01-20] VITALS (50 sets, daily range): BP systolic 94–134; BP diastolic 52–89; PULSE 54–84; RESP 1–29; TEMP 36.2–36.6; O2SAT 87–99
[2023-01-20 05:49] LABS: Basophils Percent Auto 0.2 % (0.2-2.0); Hematocrit 26.4 % (36.0-48.0); Hemoglobin 8.8 g/dL (12.0-16.0); Immature Granulocytes Pct Auto 1.5 % (0.0-0.5); Lymphocytes Absolute Auto 0.2 10^3/uL (1.2-3.8); Lymphocytes Percent Auto 2.7 % (20.5-60.0); Mean Corpuscular HGB Conc 33.3 g/dL (29.9-35.2); Mean Corpuscular Hemoglobin 33.6 pg (26.7-34.0); Mean Corpuscular Volume 100.8 fL (81.0-99.0); Mean Platelet Volume 12.1 fL (9.5-13.5); Monocytes Absolute Auto 0.3 10^3/uL (0.3-0.8); Monocytes Percent Auto 3.9 % (1.7-12.0); Neutrophils Absolute Auto 6.1 10^3/uL (1.4-6.5); Neutrophils Percent Auto 91.7 % (43.0-75.0); Platelet Count 109 10^3/uL (150-450); Red Blood Count 2.62 10^6/uL (4.20-5.40); Red Cell Distribution Width 24.7 % (11.0-15.0); White Blood Count 6.6 10^3/uL (4.0-11.0)
[2023-01-20 06:13] LABS: Alanine Aminotransferase 12 U/L (14-59); Albumin Globulin Ratio 0.5; Albumin Level 1.4 g/dL (3.4-5.0); Alkaline Phosphatase 154 U/L (46-116); Anion Gap 12.8; Aspartate Amino Transferase 17 U/L (15-37); BUN Creatinine Ratio 15.4; Bilirubin Total 0.5 mg/dL (0.2-1.0); Calcium 7.4 mg/dL (8.5-10.1); Carbon Dioxide 20.1 mmol/L (21.0-32.0); Chloride 107 mmol/L (98-107); Estimated GFR (African America >60 (>=60); Estimated GFR (Non-African Ame >60 (>=60); Globulin 2.9 g/dL; Glucose 147 mg/dL (74-106); Potassium 3.9 mmol/L (3.5-5.1); Sodium 136 mmol/L (136-145); Total Protein 4.3 g/dL (6.4-8.2)
[2023-01-20] MEDS: PIPERACILLIN SODIUM/TAZOBACTAM 3.375 GM in 0.9 % SODIUM CHLORIDE 50 ML IV ×3 (06:38→22:10)
[2023-01-20] MEDS: METHYLPREDNISOLONE SOD SUCC PF 125 MG/2 ML VIAL 60 MG IVP ×4 (06:38→22:10)
--- NOTE | 2023-01-20 07:00 | XR_ITS ---
The [address] [address] Patient Name: LESVIA MALDONADO MRN: [id number] date: 1960 Sex: F Assigned Patient Location: ICU Current Patient Location: ICU Accession/Order Number: [id number] Exam Date: 01/20/2023 05:15 Report Date: 01/20/2023 07:15 At the request of: CATALINO KELLEY Procedure: XR chest 1V PROCEDURE: XR chest 1V DATE: 01/20/2023 4:15 AM CDT COMPARISONS: 01/18/2023 CLINICAL INDICATION: 62 years Female Pneumonia surveillance FINDINGS: The heart and mediastinum remain stable. Today's exam is a less than optimal inspiratory radiograph than previous exam resulting in some perihilar and infrahilar atelectasis on the present exam. Prominent heterogeneous opacity is noted of the upper third of the left lung as on previous exam. Presumably this represents inflammatory infiltrate based on the history provided. One must consider however that this is an atypical inflammatory infiltrate such as granulomatous changes. Also, continued follow-up is necessary to document resolution. There is a small chance that this is associated with neoplastic process of the left upper lung field. CT of the chest may be helpful. There is no evidence of pleural effusion or pneumothorax. XR/XR chest 1V IMPRESSION: The chest is similar to previous exam. Prominent heterogeneous opacity of the upper third of the left lung remains in limited previous exam. As discussed above, at some point, consideration could be given to cross-sectional imaging to further evaluate this process. Electronically authenticated by: MEGA SIDDIQUI Date: 01/20/2023 07:15
--- NOTE | 2023-01-20 07:43 | P.PN_ITS ---
Progress Note: Subjective Subjective Interval history: no events overnight, patient has been off the levophed. still reports two loose bowel movements overnight. No abdominal pain. Denies any fevers or chills. States overall she feels much improved since admission is just really tired. At bedside today we discussed and summarized her plan of care she is in agreement with doing a CT of the chest and abdomen today. Exam Narrative Exam Narrative: General: Patient is alert, and oriented to person, place and time with normal affect, proper hygiene Skin: no visible rashes, or ulcers Head: atraumatic, acephalic Eyes: PERRLA, no nystagmus present, conjunctiva clear, no scleral icterus Ears:normal gross auditory acuity Heart: Normal rate and rhythm, no murmurs/rubs/gallops Lungs: no audible wheezes, crackles and normal breath sounds all lung nova Abdomen: Normal audible bowel sounds, no distension, No palpable masses, no organomegaly, no rebound/guarding/ or rigidity Musculoskeletal: no swelling bilateral lower extremities Neuro: CN II-X grossly intact, normal sensation upper and lower extremities Constitutional Vital Signs, click to edit/add: Last Vital Signs Temp 97.1 F L 01/20/23 06:00 Pulse 65 01/20/23 06:00 Resp 20 01/20/23 06:00 BP 105/62 01/20/23 07:31 Pulse Ox 96 01/20/23 06:00 O2 Del Method Room Air 01/20/23 06:00 O2 Flow Rate 95 01/18/23 15:45 Progress Note: Objective Labs Labs: Short CBC 01/19/23 01/20/23 Range/Units 12:53 04:57 WBC 6.6 (4.0-11.0) 10^3/uL Hgb 9.7 L 8.8 L (12.0-16.0) g/dL Hct 29.9 L 26.4 L (36.0-48.0) % Plt Count 109 L (150-450) 10^3/uL BMP 01/20/23 04:57 Sodium 136 Potassium 3.9 Chloride 107 Carbon Dioxide 20.1 L BUN 14.0 Creatinine 0.91 Glucose 147 H Calcium 7.4 L Liver Function 01/20/23 Range/Units 04:57 Total Bilirubin 0.5 (0.2-1.0) mg/dL AST 17 (15-37) U/L ALT 12 L (14-59) U/L Alkaline Phosphatase 154 H (46-116) U/L Albumin 1.4 L (3.4-5.0) g/dL Progress Note: A&P Assessment and Plan (1) Pneumonia: Assessment and Plan: as seen in the left upper lobe noted on chest x-ray, will get a CT scan of the chest. White blood cell count is within normal range, patient is on vancomycin and Zosyn for broad-spectrum coverage. So far blood cultures and sputum cultures have been negative. Continue steroid, guaifenesin, breathing treatments as nee ded (2) Septic shock: Assessment and Plan: due to #1, still having issues with hypotension at times they feel this is more dehydration and septic shock. Feel this sepsis has resolved. (3) Anemia associated with chemotherapy: Assessment and Plan: patient has received one unit of packed red blood cells, hemoglobin is stable this morning 8.8 with no acute bleeding. We'll continue to monitor daily. (4) HERB (acute kidney injury): Assessment and Plan: will continue IV fluids with LR at one twenty-five. Kidney function normal this morning (5) Dehydration: Assessment and Plan: improving with IV fluids (6) Hypokalemia: Assessment and Plan: resolved, monitor daily (7) Acute hyponatremia: Assessment and Plan: resolved monitor daily (8) Radiation colitis: Assessment and Plan: causing the severe dehydration and electrolyte abnormalities, may restart home medication (9) Protein-calorie malnutrition, severe: Assessment and Plan: nutrition/dietary consult consider supplements (10) Depression: Assessment and Plan: continue home medications (11) GERD (gastroesophageal reflux disease): Assessment and Plan: continue IV Protonix 40 mg every 24 hours (12) Rectal cancer: Assessment and Plan: Will reassess CT the abdomen and pelvis given anemia Plan patient is full code SCDs and compression stockings for deep vein thrombosis prophylaxis given acute anemia Patient continues to improve but still awaiting multiple cultures and will continue to need hospital services.
[2023-01-20] MEDS: SERTRALINE HCL 50 MG TABLET PO (09:25)
[2023-01-20] MEDS: BUSPIRONE HCL 10 MG TABLET 5 MG PO ×2 (09:25→20:39)
[2023-01-20] MEDS: SILVER SULFADIAZINE 1% CREAM 25 GM TUBE 1 APPLIC TOPICAL ×2 (09:29→20:42)
--- NOTE | 2023-01-20 09:48 | REH.PTDLY ---
Physical Therapy Daily Note PT Daily Note/Assess Start: 01/18/23 13:27 Freq: Status: Active Protocol: Document 01/20/23 09:46 SNEHAL (Rec: 01/20/23 09:47 SNEHAL [id number]) Visit Not Completed Visit Not Completed Due to: Pt refusing Other Reason Visit Not Completed Talked with pt about therapy benefits, but pt reports yesterday was a lot and she is just exhausted. Declines therapy. Nursing states to try back in a little bit after she gets her medicine, tried back and nursing reports she talked with pt and pt is still refusing therapy today. Physical Therapy Daily Note/Assessment Time In 09:40 Time Out 09:45
[2023-01-20] MEDS: VANCOMYCIN HCL 750 MG in 0.9 % SODIUM CHLORIDE 250 ML 250 MG IV ×2 (11:39→22:12)
--- NOTE | 2023-01-20 11:39 | CT_ITS ---
The [address] [address] Patient Name: LESVIA MALDONADO MRN: [id number] date: 1960 Sex: F Assigned Patient Location: ICU Current Patient Location: ICU Accession/Order Number: [id number] Exam Date: 01/20/2023 15:35 Report Date: 01/20/2023 17:04 At the request of: MARTITA FRAIRE Procedure: CT chest w con EXAM: CT abdomen pelvis w con, CT chest w con HISTORY: radiation colitis, history of rectal cancer COMPARISON: None. TECHNIQUE: Axial CT imaging was performed through the chest, abdomen, and pelvis with intravenous contrast, using angiogram protocol. Multiplanar reformats were performed. Dose reduction techniques were achieved by using automated exposure control and/or adjustment of mA and/or kV according to patient size and/or use of iterative reconstruction technique. CHEST FINDINGS: Lungs: No pneumothorax. There is bilateral centrilobular emphysema. There are bilateral moderate pleural effusions and right lower lobe consolidations. There are groundglass attenuation with interlobular septal thickening involving left upper lobe and small region of the left lower lobe. There is also left apical consolidation with multiple cavities/bulbae. Above findings are representing multifocal pneumonia/necrotizing pneumonia. Airways: Patent. Mediastinum: No adenopathy. Aorta: No aneurysm. Cardiac: Normal size. No pericardial effusion. Pulmonary vasculature: There is filling defect in the left interlobar pulmonary artery, extending into the segmental branches of the left upper lobe and lower lobe and filling defect in the segmental branches of the right upper and lower lobes, representing acute pulmonary embolism. Bones: No acute bony abnormality. Axilla: No adenopathy. Thyroid gland: No abnormality demonstrated on provided imaging. Soft tissues: Unremarkable. Additional findings: None. ABDOMEN AND PELVIS FINDINGS: GI upper: Unremarkable. Liver: Hepatic steatosis. Normal size and contour. Gallbladder: No significant abnormality. No cholelithiasis. Biliary system: No intra or extrahepatic biliary ductal dilatation. Spleen: Normal size. There are innumerable low-density lesions throughout the spleen, too small to characterize. Pancreas: Prominent main pancreatic duct measuring up to 0.3 cm. Pancreatic divisum. Adrenal glands: Normal adrenal glands. Kidneys/ureters: Multiple bilateral focal cortical thinning, likely due to prior infection/ischemia. No hydronephrosis. No nephrolithiasis or ureterolithiasis. Vessels: No aneurysm. Lymph Nodes: No lymphadenopathy. Small bowel: No dilatation. There appears mild circumferential wall thickening of the jejunum, representing enteritis. Colon: No wall thickening or dilatation. There are colonic diverticulosis without evidence of acute diverticulitis. Appendix: No findings of appendicitis. Peritoneal cavity: No pneumoperitoneum. Moderate pelvic free fluid. Lower : Siddiqui catheter balloon is seen within the urinary bladder. Unremarkable ovary. Bones: No acute bony abnormality. Soft tissues: Anasarca. Additional findings: None. CT/CT chest w con IMPRESSION: CT evidence of acute pulmonary embolism involving the left interlobar pulmonary artery, extending into the segmental branches of the left upper lobe and lower lobe and filling defect in the segmental branches of the right upper and lower lobes. Bilateral moderate pleural effusions, right lower lobe consolidation as well as left upper lobe consolidation and multiple cavities/bullae and bilateral groundglass attenuation as described above, representing multifocal pneumonia/necrotizing pneumonia. There appears mild circumferential wall thickening of the jejunum, representing enteritis. Moderate pelvic free fluid. Anasarca. Critical results were NOTIFIED by TELEPHONE BY Dr. Ame Gao MD to MARION, NURSE At 01/20/2023 4:37 PM EDT. Electronically authenticated by: AME GAO Date: 01/20/2023 17:04
--- NOTE | 2023-01-20 11:39 | CT_ITS ---
The [address] [address] Patient Name: LESVIA MALDONADO MRN: [id number] date: 1960 Sex: F Assigned Patient Location: ICU Current Patient Location: ICU Accession/Order Number: [id number] Exam Date: 01/20/2023 15:35 Report Date: 01/20/2023 17:04 At the request of: MARTITA FRAIRE Procedure: CT abdomen pelvis w con EXAM: CT abdomen pelvis w con, CT chest w con HISTORY: radiation colitis, history of rectal cancer COMPARISON: None. TECHNIQUE: Axial CT imaging was performed through the chest, abdomen, and pelvis with intravenous contrast, using angiogram protocol. Multiplanar reformats were performed. Dose reduction techniques were achieved by using automated exposure control and/or adjustment of mA and/or kV according to patient size and/or use of iterative reconstruction technique. CHEST FINDINGS: Lungs: No pneumothorax. There is bilateral centrilobular emphysema. There are bilateral moderate pleural effusions and right lower lobe consolidations. There are groundglass attenuation with interlobular septal thickening involving left upper lobe and small region of the left lower lobe. There is also left apical consolidation with multiple cavities/bulbae. Above findings are representing multifocal pneumonia/necrotizing pneumonia. Airways: Patent. Mediastinum: No adenopathy. Aorta: No aneurysm. Cardiac: Normal size. No pericardial effusion. Pulmonary vasculature: There is filling defect in the left interlobar pulmonary artery, extending into the segmental branches of the left upper lobe and lower lobe and filling defect in the segmental branches of the right upper and lower lobes, representing acute pulmonary embolism. Bones: No acute bony abnormality. Axilla: No adenopathy. Thyroid gland: No abnormality demonstrated on provided imaging. Soft tissues: Unremarkable. Additional findings: None. ABDOMEN AND PELVIS FINDINGS: GI upper: Unremarkable. Liver: Hepatic steatosis. Normal size and contour. Gallbladder: No significant abnormality. No cholelithiasis. Biliary system: No intra or extrahepatic biliary ductal dilatation. Spleen: Normal size. There are innumerable low-density lesions throughout the spleen, too small to characterize. Pancreas: Prominent main pancreatic duct measuring up to 0.3 cm. Pancreatic divisum. Adrenal glands: Normal adrenal glands. Kidneys/ureters: Multiple bilateral focal cortical thinning, likely due to prior infection/ischemia. No hydronephrosis. No nephrolithiasis or ureterolithiasis. Vessels: No aneurysm. Lymph Nodes: No lymphadenopathy. Small bowel: No dilatation. There appears mild circumferential wall thickening of the jejunum, representing enteritis. Colon: No wall thickening or dilatation. There are colonic diverticulosis without evidence of acute diverticulitis. Appendix: No findings of appendicitis. Peritoneal cavity: No pneumoperitoneum. Moderate pelvic free fluid. Lower : Siddiqui catheter balloon is seen within the urinary bladder. Unremarkable ovary. Bones: No acute bony abnormality. Soft tissues: Anasarca. Additional findings: None. CT/CT abdomen pelvis w con IMPRESSION: CT evidence of acute pulmonary embolism involving the left interlobar pulmonary artery, extending into the segmental branches of the left upper lobe and lower lobe and filling defect in the segmental branches of the right upper and lower lobes. Bilateral moderate pleural effusions, right lower lobe consolidation as well as left upper lobe consolidation and multiple cavities/bullae and bilateral groundglass attenuation as described above, representing multifocal pneumonia/necrotizing pneumonia. There appears mild circumferential wall thickening of the jejunum, representing enteritis. Moderate pelvic free fluid. Anasarca. Critical results were NOTIFIED by TELEPHONE BY Dr. Ame Gao MD to MARION, NURSE At 01/20/2023 4:37 PM EDT. Electronically authenticated by: AME GAO Date: 01/20/2023 17:04
[2023-01-20] MEDS: LACTATED RINGER'S SOLUTION 1,000 ML 125 ML IV ×2 (12:51→20:49)
[2023-01-20] MEDS: OXYCODONE HCL 5 MG TABLET PO ×2 (15:38→22:24)
[2023-01-20 16:08] LABS: Procalcitonin 2.09 ng/mL (0.00-0.08)
[2023-01-20] MEDS: DIPHENOXYLATE HCL 2.5 MG/ATROPINE 0.025 MG TABLET 1 TAB PO (16:30)
--- NOTE | 2023-01-20 17:20 | PC.NURSE ---
1411- call from in regards to CT results, gave verbal report. Then notified of findings and received orders. Once report received, copied it forward to [id number].
[2023-01-20] MEDS: PANTOPRAZOLE SODIUM 40 MG VIAL IV (17:30)
[2023-01-20 18:32] LABS: Bilirubin Urine NEGATIVE (NEGATIVE); Blood Urine TRACE-I (NEGATIVE); Clarity Urine CLEAR (CLEAR); Color Urine LT. YELLOW (YELLOW); Glucose Urine UA NEGATIVE (NEGATIVE); Ketones Urine NEGATIVE (NEGATIVE); Leukocyte Esterase Urine NEGATIVE (NEGATIVE); Nitrite Urine NEGATIVE (NEGATIVE); Protein Urine NEGATIVE (NEG/TRACE); Urobilinogen Urine 0.2 EU/dL (0.2-1.0)
[2023-01-20 18:40] LABS: WBC Urine 0-2 #/HPF (NONE SEEN)
[2023-01-20 18:41] LABS: Bacteria Urine TRACE #/HPF (NONE SEEN); Cast Seen? NONE SEEN #/LPF (NONE SEEN); Crystals Seen? None Seen #/HPF (None Seen); Mucus Urine NONE SEEN (NONE SEEN); Squamous Epithelial Cell Urine FEW #/LPF (NONE/RARE); Urine Culture Indicated NO
[2023-01-20] MEDS: ENOXAPARIN SODIUM 60 MG/0.6 ML SYRINGE SUBQ (20:39)
[2023-01-21] VITALS (23 sets, daily range): BP systolic 100–128; BP diastolic 54–70; PULSE 48–66; RESP 14–20; TEMP 36.1–37.1; O2SAT 87–97
[2023-01-21] MEDS: METHYLPREDNISOLONE SOD SUCC PF 125 MG/2 ML VIAL 60 MG IVP ×4 (05:16→22:23)
[2023-01-21] MEDS: PIPERACILLIN SODIUM/TAZOBACTAM 3.375 GM in 0.9 % SODIUM CHLORIDE 50 ML IV ×3 (05:16→23:45)
[2023-01-21] MEDS: LACTATED RINGER'S SOLUTION 1,000 ML 125 ML IV ×3 (05:18→20:42)
[2023-01-21 05:28] LABS: Hematocrit 27.1 % (36.0-48.0); Hemoglobin 8.8 g/dL (12.0-16.0); Mean Corpuscular HGB Conc 32.5 g/dL (29.9-35.2); Mean Corpuscular Volume 104.6 fL (81.0-99.0); Mean Platelet Volume 12.4 fL (9.5-13.5); Platelet Count 85 10^3/uL (150-450); Red Blood Count 2.59 10^6/uL (4.20-5.40); Red Cell Distribution Width 24.6 % (11.0-15.0); White Blood Count 4.7 10^3/uL (4.0-11.0)
[2023-01-21 05:58] LABS: Alanine Aminotransferase 11 U/L (14-59); Albumin Globulin Ratio 0.5; Albumin Level 1.4 g/dL (3.4-5.0); Alkaline Phosphatase 136 U/L (46-116); Anion Gap 14.1; Aspartate Amino Transferase 19 U/L (15-37); BUN Creatinine Ratio 19.4; Bilirubin Total 0.4 mg/dL (0.2-1.0); Calcium 7.4 mg/dL (8.5-10.1); Carbon Dioxide 18.7 mmol/L (21.0-32.0); Chloride 106 mmol/L (98-107); Estimated GFR (African America >60 (>=60); Estimated GFR (Non-African Ame 57 (>=60); Globulin 2.7 g/dL; Glucose 133 mg/dL (74-106); Potassium 3.8 mmol/L (3.5-5.1); Sodium 135 mmol/L (136-145); Total Protein 4.1 g/dL (6.4-8.2)
[2023-01-21 06:49] LABS: Lymphocytes Absolute Manual 0.04 10^3/uL (1.20-3.80); Monocytes Absolute Manual 0.18 10^3/uL (0.30-0.80); Segmented Neut Absolute Manual 4.46 10^3/uL (1.4-6.5); Toxic Granulation 2+
[2023-01-21 06:50] LABS: Anisocytosis 2+; Macrocytosis 1+
--- NOTE | 2023-01-21 07:35 | P.PN_ITS ---
Progress Note: Subjective Subjective Interval history: patient reports some shortness of breath last night, oxygen sats dropped to eighty-eight percent so 2 L nasal cannula was applied. Patient has been doing well on room air this morning she denies any chest discomfort or shortness of breath at the time of exam. She denies any fevers chills or abdominal pain. I spent time at bedside today to discuss the findings of the CT scan of the chest and abdomen that was performed yesterday, we discussed the bilateral pulmonary emboli and how Lovenox injections were started yesterday for this. Also discussed plan for tomorrow is to consult a supervisor color making and mainframe developer and echocardiogram also. She plans to give me her oncologists name and number so that I can also coordinate care with him tomorrow when his clinic is open. Patient denies any other concerns at this time and states that she is feeling overall better since her admission. Exam Narrative Exam Narrative: General: Patient is alert, and oriented to person, place and time with normal affect, proper hygiene Skin: no visible rashes, or ulcers Head: atraumatic, acephalic Eyes: PERRLA, no nystagmus present, conjunctiva clear, no scleral icterus Ears:normal gross auditory acuity Heart: Normal rate and rhythm, no murmurs/rubs/gallops Lungs: no audible wheezes, crackles and normal breath sounds all lung nova Abdomen: Normal audible bowel sounds, no distension, No palpable masses, no organomegaly, no rebound/guarding/ or rigidity Musculoskeletal: no swelling bilateral lower extremities Neuro: CN II-X grossly intact, normal sensation upper and lower extremities Constitutional Vital Signs, click to edit/add: Last Vital Signs Temp 98.7 F 01/21/23 04:00 Pulse 55 L 01/21/23 05:50 Resp 16 01/21/23 04:00 BP 102/65 01/21/23 05:30 Pulse Ox 94 L 01/21/23 05:50 O2 Del Method Nasal Cannula 01/21/23 05:18 O2 Flow Rate 2 01/21/23 05:18 Progress Note: Objective Labs Labs: Short CBC 01/21/23 Range/Units 04:16 WBC 4.7 (4.0-11.0) 10^3/uL Hgb 8.8 L (12.0-16.0) g/dL Hct 27.1 L (36.0-48.0) % Plt Count 85 L (150-450) 10^3/uL BMP 01/21/23 04:16 Sodium 135 L Potassium 3.8 Chloride 106 Carbon Dioxide 18.7 L BUN 19.0 H Creatinine 0.98 Glucose 133 H Calcium 7.4 L Liver Function 01/21/23 Range/Units 04:16 Total Bilirubin 0.4 (0.2-1.0) mg/dL AST 19 (15-37) U/L ALT 11 L (14-59) U/L Alkaline Phosphatase 136 H (46-116) U/L Albumin 1.4 L (3.4-5.0) g/dL Urine 01/20/23 Range/Units 13:00 Urine Color Lt. yellow (YELLOW) Urine Clarity Clear (CLEAR) Urine pH 6.0 (5.0-9.0) Ur Specific Cades 1.020 (1.005-1.025) Urine Protein Negative (NEG/TRACE) mg/dL Urine Glucose (UA) Negative (NEGATIVE) mg/dL Progress Note: A&P Assessment and Plan (1) Bilateral pulmonary embolism: Assessment and Plan: as seen on CT of the chest which showed acute pulmonary embolism involving the left intralobar pulmonary artery extending into segmental branches of the left upper lobe and lower lobe as well as filling defect in the segmental branches of the right upper and right lower lobes. Bilateral moderate pleural effusions. I started therapeutic Lovenox at 60 mg twice a day. willl consult pulmonary tomorrow for further recommendations. patient with known history of rectal carcinoma. Will also discuss case with her oncologist for any further recommendations. (2) Pneumonia: Assessment and Plan: White blood cell count is within normal range, patient is on vancomycin and Zosyn for broad-spectrum coverage. So far blood cultures have been positive ?1 for MRSE sensitive to vancomycin. sputum cultures pending. Continue steroid, guaifenesin, breathing treatments as needed.CT scan showed right lower lobe consolidation and left upper lobe consolidation with bilateral groundglass attenuation representing multifocal pneumonia. Continue with broad-spectrum coverage. (3) Septic shock: Assessment and Plan: normal lactate, normal white blood cell count, afebrile. Sepsis has improved (4) Anemia associated with chemotherapy: Assessment and Plan: patient has received one unit of packed red blood cells, hemoglobin is stable this morning 8.8 with no acute bleeding. We'll continue to monitor daily. (5) HERB (acute kidney injury): Assessment and Plan: will continue IV fluids with LR at one twenty-five. Kidney function normal this morning (6) Dehydration: Assessment and Plan: improving with IV fluids (7) Hypokalemia: Assessment and Plan: resolved, monitor daily (8) Acute hyponatremia: Assessment and Plan: resolved monitor daily (9) Radiation colitis: Assessment and Plan: causing the severe dehydration and electrolyte abnormalities, continue steroids, CT scan showed circumferential wall thickening of the jejunum representing enteritis with moderate pelvic free fluid, we'll get a stool culture and also discuss with her oncologist. (10) Protein-calorie malnutrition, severe: Assessment and Plan: nutrition/dietary consult consider supplements (11) Depression: Assessment and Plan: continue home medications (12) GERD (gastroesophageal reflux disease): Assessment and Plan: continue IV Protonix 40 mg every 24 hours (13) Rectal cancer: Assessment and Plan: radiation therapy approximately three weeks ago, patient reports remission Plan patient is full code therapeutic Lovenox for active bilateral PE's Patient continues to improve but still awaiting multiple cultures, consults, echocardiogram and new finding of bilateral PE's
[2023-01-21] MEDS: SERTRALINE HCL 50 MG TABLET PO (09:22)
[2023-01-21] MEDS: ENOXAPARIN SODIUM 60 MG/0.6 ML SYRINGE SUBQ ×2 (09:22→20:42)
[2023-01-21] MEDS: BUSPIRONE HCL 10 MG TABLET 5 MG PO ×2 (09:22→20:42)
[2023-01-21] MEDS: SILVER SULFADIAZINE 1% CREAM 25 GM TUBE 1 APPLIC TOPICAL ×2 (09:23→20:42)
--- NOTE | 2023-01-21 11:02 | CA_ITS ---
Patient: LESVIA MALDONADO Exam Date: 01/22/2023 : 1960 Gender:F Ordering : MARTITA FRAIRE . Admission #: [id number] Family : DR Ceasar Velazquez . Order #: [id number] CLICK HERE TO VIEW EXAM ECHOCARDIOGRAM REPORT PROCEDURE: CA ECHO DOPPLER COMPLETE INDICATIONS: Pulmonary Emboli bilaterally, MRSA in blood, rectal cancer - chemo therapy, anemia COMPARISON: None. DESCRIPTION: COMPLETE ECHOCARDIOGRAM Real-time transthoracic echocardiography with 2D, M-mode, spectral and color flow Doppler performed. QUALITY: Technical quality was good. LEFT VENTRICLE: Normal chamber size. Normal left ventricular wall thickness. Normal systolic function. LV EF: Normal left ventricular ejection fraction, (>55%). DIASTOLIC: Diastolic function is indeterminate. ATRIAL SEPTUM: LEFT ATRIUM: Normal chamber size. RIGHT ATRIUM: Normal chamber size. RIGHT VENTRICLE: Normal chamber size. TRICUSPID VALVE: Normal mobility and thickness. No stenosis with trivial regurgitation. No evidence of pulmonary hypertension. RVSP 33 mmHg MITRAL VALVE: Normal mobility and thickness. No evidence of mitral valve stenosis. Mild to moderate mitral regurgitation. AORTIC VALVE: Normal trileaflet appearance. Thickened aortic valve. Normal leaflet mobility. No evidence of aortic valve stenosis. Mild to moderate aortic regurgitation. AORTIC ROOT: Ascending aorta is mildly dilated (3.8 cm). The aortic root is mildly dilated and measures 3.9 cm. PULMONIC VALVE: Normal thickness and mobility. No stenosis. No regurgitation. PERICARDIUM: No evidence of pericardial effusion. IVC: Collapses with inspirations. IVC is normal in size. PLEURA: CONCLUSION: 1. Normal left ventricular systolic function. LVEF is 55 to 60%. 2. Normal right ventricular size and systolic function. 3. Mild to moderate mitral regurgitation. 4. Mild to moderate aortic regurgitation. 5. Normal right-sided pressures. 6. Unable to rule out valvular vegetations on this transthoracic study. If there is clinical suspicion of endocarditis then a transesophageal echocardiogram will provide better assessment. Adult Echocardiography Procedure Report Left Ventricle LVEDD (3.7 - 5.6 cm): 4.85 cm LVESD (2.2 - 4.0 cm): 3.17 cm LVIVS thickness (0.6 - 1.2 cm): 0.83 cm LVPW thickness (0.5 - 1.0 cm): 0.91 cm e': 0.08 m/s E - e': 9.75 LVOT Max Gradient: 3.92 mm[Hg] LVOT Area (cm2): 0.99 m/s Peak Velocity (LVOT): 0.99 m/s LVOT Diameter 2.27 cm Left Atrium LA Volume Index (2D A2C): 28.69 ml/m2 Left Atrium Systolic Dimension: 2.79 cm Mitral Valve MV E to A Ratio: 0.94 Mitral Valve A-Wave Peak Velocity: 0.80 m/s Mitral Valve E-Wave Peak Velocity: 0.75 m/s Right Ventricle Aorta AO Root Diam: 3.89 cm Ascending Ao Diam: 3.82 cm Aortic Valve AoV Area (Peak Song): 3.70 cm2, 3.70 cm2 Peak Velocity(Antegrade Flow): 1.09 m/s Peak Gradient(Antegrade Flow): 4.71 mm[Hg] Tricuspid Valve Peak Velocity (Regurgitant Flow): 2.76 m/s Pulmonic Valve Peak Velocity: 0.71 m/s Peak Gradient: 2.27 mm[Hg], 1.82 mm[Hg] Right Atrium Right Atrium Systolic Pressure: 51.52 ml, 51.52 ml Dictated by: Dyllan Gonzalez M.D. on 01/22/2023 at 18:40 Approved by: Dyllan Gonzalez M.D. on 01/22/2023 at 18:47
[2023-01-21] MEDS: VANCOMYCIN HCL 750 MG in 0.9 % SODIUM CHLORIDE 250 ML 250 MG IV ×2 (11:40→22:23)
[2023-01-21] MEDS: PANTOPRAZOLE SODIUM 40 MG VIAL IV (16:31)
[2023-01-21] MEDS: HYDROXYZINE PAMOATE 25 MG CAPSULE PO (16:31)
[2023-01-21] MEDS: OXYCODONE HCL 5 MG TABLET PO (20:45)
[2023-01-22] VITALS (20 sets, daily range): BP systolic 112–130; BP diastolic 56–73; PULSE 49–74; RESP 16–20; TEMP 36.2–36.8; O2SAT 89–98
[2023-01-22] MEDS: LACTATED RINGER'S SOLUTION 1,000 ML 125 ML IV ×3 (04:41→18:19)
[2023-01-22] MEDS: METHYLPREDNISOLONE SOD SUCC PF 125 MG/2 ML VIAL 60 MG IVP (04:44)
[2023-01-22] MEDS: PIPERACILLIN SODIUM/TAZOBACTAM 3.375 GM in 0.9 % SODIUM CHLORIDE 50 ML IV (05:08)
[2023-01-22 05:43] LABS: Hematocrit 26.8 % (36.0-48.0); Hemoglobin 8.9 g/dL (12.0-16.0); Mean Corpuscular HGB Conc 33.2 g/dL (29.9-35.2); Mean Corpuscular Hemoglobin 33.7 pg (26.7-34.0); Mean Corpuscular Volume 101.5 fL (81.0-99.0); Platelet Count 94 10^3/uL (150-450); Red Blood Count 2.64 10^6/uL (4.20-5.40); Red Cell Distribution Width 23.5 % (11.0-15.0); White Blood Count 6.1 10^3/uL (4.0-11.0)
[2023-01-22 06:06] LABS: Alanine Aminotransferase 17 U/L (14-59); Albumin Globulin Ratio 0.5; Albumin Level 1.3 g/dL (3.4-5.0); Alkaline Phosphatase 127 U/L (46-116); Anion Gap 14.1; Aspartate Amino Transferase 23 U/L (15-37); BUN Creatinine Ratio 22.2; Bilirubin Total 0.4 mg/dL (0.2-1.0); Calcium 6.9 mg/dL (8.5-10.1); Carbon Dioxide 21.2 mmol/L (21.0-32.0); Chloride 105 mmol/L (98-107); Estimated GFR (African America >60 (>=60); Estimated GFR (Non-African Ame >60 (>=60); Globulin 2.7 g/dL; Glucose 136 mg/dL (74-106); Potassium 3.3 mmol/L (3.5-5.1); Sodium 137 mmol/L (136-145)
--- NOTE | 2023-01-22 06:27 | RESP.RT ---
placed on 2L nasal cannula at this time. Spo2= 91%
[2023-01-22 07:31] LABS: Anisocytosis 1+; Lymphocytes Absolute Manual 0.42 10^3/uL (1.20-3.80); Monocytes Absolute Manual 0.06 10^3/uL (0.30-0.80); Segmented Neut Absolute Manual 5.61 10^3/uL (1.4-6.5)
[2023-01-22 07:32] LABS: Macrocytosis 1+
--- NOTE | 2023-01-22 08:20 | P.PN_ITS ---
Progress Note: Subjective Subjective Interval history: patient denies any shortness of breath or chest pain. She does note that her anxiety and depression have been worse since being hospitalized and the Vistaril that was started yesterday seems to be helping. She denies any fevers or cough. No other concerns or issues this morning. Exam Narrative Exam Narrative: General: Patient is alert, and oriented to person, place and time with normal affect, proper hygiene Skin: no visible rashes, or ulcers Head: atraumatic, acephalic Eyes: PERRLA, no nystagmus present, conjunctiva clear, no scleral icterus Ears:normal gross auditory acuity Heart: Normal rate and rhythm, no murmurs/rubs/gallops Lungs: no audible wheezes, crackles and normal breath sounds all lung nova Abdomen: Normal audible bowel sounds, no distension, No palpable masses, no organomegaly, no rebound/guarding/ or rigidity Musculoskeletal: no swelling bilateral lower extremities Neuro: CN II-X grossly intact, normal sensation upper and lower extremities Constitutional Vital Signs, click to edit/add: Last Vital Signs Temp 97.8 F 01/22/23 04:00 Pulse 54 L 01/22/23 05:00 Resp 17 01/22/23 04:00 BP 120/60 01/22/23 04:00 Pulse Ox 91 L 01/22/23 05:00 O2 Del Method Nasal Cannula 01/22/23 04:00 O2 Flow Rate 2 01/22/23 04:00 Progress Note: Objective Labs Labs: Short CBC 01/22/23 Range/Units 04:58 WBC 6.1 (4.0-11.0) 10^3/uL Hgb 8.9 L (12.0-16.0) g/dL Hct 26.8 L (36.0-48.0) % Plt Count 94 L (150-450) 10^3/uL BMP 01/22/23 04:58 Sodium 137 Potassium 3.3 L Chloride 105 Carbon Dioxide 21.2 BUN 20.0 H Creatinine 0.90 Glucose 136 H Calcium 6.9 L Liver Function 01/22/23 Range/Units 04:58 Total Bilirubin 0.4 (0.2-1.0) mg/dL AST 23 (15-37) U/L ALT 17 (14-59) U/L Alkaline Phosphatase 127 H (46-116) U/L Albumin 1.3 L (3.4-5.0) g/dL Progress Note: A&P Assessment and Plan (1) Bilateral pulmonary embolism: Assessment and Plan: as seen on CT of the chest which showed acute pulmonary embolism involving the left intralobar pulmonary artery extending into segmental branches of the left upper lobe and lower lobe as well as filling defect in the segmental branches of the right upper and right lower lobes. Bilateral moderate pleural effusions. I started therapeutic Lovenox at 60 mg twice a day but will place on eliquis today 5mg BID. willl consult pulmonary tomorrow for further recommendations. patient with known history of rectal carcinoma. Will also discuss case with her oncologist for any further recommendations.I have called Dr. Rosemarie Smith's office with [facility] oncology this morning and have not received a call back. (2) Pneumonia: Assessment and Plan: White blood cell count is within normal range, patient is on vancomycin and Zosyn for broad-spectrum coverage. So far blood cultures have been positive ?1 for MRSE sensitive to vancomycin. sputum cultures pending. stop steroid, continues guaifenesin, breathing treatments as needed.CT scan showed right lower lobe consolidation and left upper lobe consolidation with bilateral groundglass attenuation representing multifocal pneumonia. Continue with broad-spectrum coverage, but given improvement and no positive cultures, will stop the vanc and zosyn today and place on Oral Levaquin. (3) Septic shock: Assessment and Plan: normal lactate, normal white blood cell count, afebrile. Sepsis resolved. (4) Anemia associated with chemotherapy: Assessment and Plan: patient has received one unit of packed red blood cells, hemoglobin is stable this morning 8.8 with no acute bleeding. We'll continue to monitor daily. (5) HERB (acute kidney injury): Assessment and Plan: will continue IV fluids with LR at one twenty-five. 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 (10) Protein-calorie malnutrition, severe: Assessment and Plan: nutrition/dietary consult consider supplements (11) Depression: Assessment and Plan: continue home medications (12) GERD (gastroesophageal reflux disease): Assessment and Plan: continue IV Protonix 40 mg every 24 hours, transition to PO today (13) Rectal cancer: Assessment and Plan: radiation therapy approximately three weeks ago, patient reports remission Plan patient is full code therapeutic Lovenox for active bilateral PE's, transition to Eliquis today Patient continues to improve but still awaiting multiple cultures, consults, echocardiogram and new finding of bilateral PE's
[2023-01-22] MEDS: SILVER SULFADIAZINE 1% CREAM 25 GM TUBE 1 APPLIC TOPICAL ×2 (09:03→20:40)
[2023-01-22] MEDS: SERTRALINE HCL 50 MG TABLET PO (09:04)
[2023-01-22] MEDS: ENOXAPARIN SODIUM 60 MG/0.6 ML SYRINGE SUBQ (09:04)
[2023-01-22] MEDS: BUSPIRONE HCL 10 MG TABLET 5 MG PO ×2 (09:04→20:40)
[2023-01-22] MEDS: L. ACIDOPHILUS/L.BULGARICUS 1 PACKET GRAN.PACK PO (09:25)
[2023-01-22] MEDS: OXYCODONE HCL 5 MG TABLET PO ×2 (09:25→18:15)
[2023-01-22] MEDS: VANCOMYCIN HCL 750 MG in 0.9 % SODIUM CHLORIDE 250 ML 250 MG IV (11:03)
--- NOTE | 2023-01-22 11:19 | PT.DAILY ---
Physical Therapy Daily Note PT Daily Note/Assess Start: 01/18/23 13:27 Freq: Status: Active Protocol: Document 01/22/23 11:07 ALTHEA (Rec: 01/22/23 11:19 ALTHEA [id number]) Visit Not Completed Visit Not Completed Visit Not Completed Due to: Pt refusing Other Reason Visit Not Completed Pt declines Pt this morning. Reports she has been up moving around. Nursing present at this time. Physical Therapy Daily Note/Assessment Time In/Time Out Time In 11:05 Time Out 11:09 Pain In Pain N/A Pain Out Pain N/A GG. Functional Abilities and Goals-Complete for Swing Bed Patients Only [id number]. Self-Care [id number]. Mobility
--- NOTE | 2023-01-22 12:08 | CM.NOTE ---
Rounds made with Dr. Ellis. Encouraged Amber to participate with Nannette Clark stated she was exhausted and maybe later today will participate. No plan for discharge today.
--- NOTE | 2023-01-22 12:39 | P.PLCN_ITS ---
History of Present Illness History of Present Illness Consult date: 01/22/23 Requesting physician: Darcy Ellis Reason for consult: pulmonary embolism Chief complaint: SEPSIS/PNA/HYPOTENSION/HERB/DEHYDRATION/ANEMIA Narrative: 62yo female with history of anal/rectal cancer originally admitted for fatigue and weakness developed dyspnea and chest discomfort. CTA chest was performed which noted multiple pulmonary emboli and infiltrates. She was started on anticoagulation and antibiotics. She states she is feeling better than on admission. Still has some RODRIGUEZ, but no further chest pain. [facility] Medical History Acute hypotension ?I95.9 - Hypotension, unspecified (ICD-10) Anemia ?D64.9 - Anemia, unspecified (ICD-10) Depression ?F32.A - Depression, unspecified (ICD-10) Diarrhea ?R19.7 - Diarrhea, unspecified (ICD-10) GERD (gastroesophageal reflux disease) ?K21.9 - Gastro-esophageal reflux disease without esophagitis (ICD-10) Lung mass ?R91.8 - Other nonspecific abnormal finding of lung field (ICD-10) Meds Home Medications and Allergies Home Medications Medication Instructions Recorded Confirmed Type benzonatate 100 mg capsule 100 mg PO TID PRN cough 01/17/23 01/17/23 History buspirone 5 mg tablet 5 mg PO BID 01/17/23 01/17/23 History capecitabine 500 mg tablet 1,500 mg PO BID PRN radiologic 01/17/23 01/17/23 History visualization cetirizine 10 mg capsule (All Day 10 mg PO DAILY 01/17/23 01/17/23 History Allergy (cetirizine)) diphenoxylate-atropine 2.5 1 tab PO BID 01/17/23 01/17/23 History mg-0.025 mg tablet famotidine 20 mg tablet 20 mg PO BID 01/17/23 01/17/23 History hydroxyzine pamoate 25 mg capsule 25 mg PO BEDTIME PRN sleep 01/17/23 01/17/23 History lidocaine-prilocaine 2.5 %-2.5 % 1 applic topical TID PRN pain 01/17/23 01/17/23 History topical cream naloxone 4 mg/actuation nasal spray 4 mg intranasal Q3M 01/17/23 01/17/23 History oxycodone 5 mg tablet 5 mg PO Q6H PRN pain 01/17/23 01/17/23 History pantoprazole 20 mg tablet,delayed 20 mg PO DAILY 01/17/23 01/17/23 History release (Protonix) prochlorperazine maleate 10 mg 10 mg PO Q6H PRN nausea and 01/17/23 01/17/23 History tablet (Compazine) vomiting sertraline 50 mg tablet 50 mg PO DAILY 01/17/23 01/17/23 History silver sulfadiazine 1 % topical 1 applic topical BID 01/17/23 01/17/23 History cream (Silvadene) Allergies Allergy/AdvReac Type Severity Reaction Status Date / Time No Known Drug Allergies Allergy Verified 01/17/23 10:30 Exam Constitutional Vital Signs, click to edit/add: Last Vital Signs Temp 97.8 F 01/22/23 04:00 Pulse 52 L 01/22/23 12:00 Resp 18 01/22/23 08:00 BP 130/73 01/22/23 08:00 Pulse Ox 92 L 01/22/23 08:00 O2 Del Method Room Air 01/22/23 08:00 O2 Flow Rate 2 01/22/23 04:00 Documenting provider has reviewed patient's vital signs: yes Common normals: no apparent distress (laying supine in bed) General appearance: cooperative and comfortable HENMT Other: Wearing nasal cannula Chest Common normals: inspection of chest normal Chest: symmetrical chest wall rise Cardio Rate: bradycardic (~55) Rhythm: regular rhythm GI Inspection: normal to inspection Extremity Common normals: normal to inspection and no clubbing, cyanosis or edema Psych Common normals: mental status grossly normal Activity/motor behavior: appropriate eye contact Results Laboratory Findings Abnormal lab findings: Abnormal Labs 01/17/23 01/17/23 01/17/23 10:40 13:04 13:09 WBC 12.1 H RBC 1.83 L Hgb 7.0 L Hct 21.4 L* MCV 116.9 H MCH 38.3 H RDW 21.9 H Plt Count Neut % (Auto) Lymph % (Auto) Eos % (Auto) Neut # (Auto) Lymph # (Auto) [place] # (Auto) Abs Immat Gran (auto) Band Neutrophils % 7.0 H Lymphocytes % (Manual) 2.0 L Monocytes % (Manual) Eosinophils % (Manual) Basophils % (Manual) 0.0 L Imm/Tot Granulo (auto) Neutrophils # (Manual) 10.28 H Band Neutrophils # 0.8 H Lymphocytes # (Manual) 0.24 L Monocytes # (Manual) 0.24 L Sodium 132 L Potassium 3.2 L Chloride Carbon Dioxide BUN 34.0 H Creatinine 1.16 H Est GFR ( Amer) 57 L Est GFR (Non-Af Amer) 47 L Glucose 125 H Calcium 8.4 L Total Bilirubin AST 105 H ALT Alkaline Phosphatase 276 H Total Protein 6.1 L Albumin 2.1 L Procalcitonin 2.09 H Urine RBC Urine WBC Ur Squamous Epith Cells Urine Bacteria Staphylococcus sp PCR Detected A* mecA/C-Methicil Resis Gene Detected A* Staph epidermidis (PCR) Detected A* Crossmatch 01/17/23 01/17/23 01/17/23 14:49 14:49 22:54 WBC RBC Hgb 5.1 L* 9.3 L Hct 15.8 L* 28.4 L MCV MCH RDW Plt Count Neut % (Auto) Lymph % (Auto) Eos % (Auto) Neut # (Auto) Lymph # (Auto) [place] # (Auto) Abs Immat Gran (auto) Band Neutrophils % Lymphocytes % (Manual) Monocytes % (Manual) Eosinophils % (Manual) Basophils % (Manual) Imm/Tot Granulo (auto) Neutrophils # (Manual) Band Neutrophils # Lymphocytes # (Manual) Monocytes # (Manual) Sodium Potassium Chloride Carbon Dioxide BUN Creatinine Est GFR ( Amer) Est GFR (Non-Af Amer) Glucose Calcium Total Bilirubin AST ALT Alkaline Phosphatase Total Protein Albumin Procalcitonin Urine RBC Urine WBC Ur Squamous Epith Cells Urine Bacteria Staphylococcus sp PCR mecA/C-Methicil Resis Gene Staph epidermidis (PCR) Crossmatch See Detail See Detail 01/18/23 01/18/23 01/18/23 03:40 15:02 21:24 WBC 17.2 H RBC 2.58 L Hgb 9.1 L 8.8 L 8.7 L Hct 27.0 L 26.5 L 26.1 L MCV 104.7 H MCH 35.3 H RDW 24.9 H Plt Count Neut % (Auto) 90.8 H Lymph % (Auto) 1.2 L Eos % (Auto) 0.2 L Neut # (Auto) 15.6 H Lymph # (Auto) 0.2 L [place] # (Auto) 0.9 H Abs Immat Gran (auto) 0.39 H Band Neutrophils % Lymphocytes % (Manual) Monocytes % (Manual) Eosinophils % (Manual) Basophils % (Manual) Imm/Tot Granulo (auto) 2.3 H Neutrophils # (Manual) Band Neutrophils # Lymphocytes # (Manual) Monocytes # (Manual) Sodium 134 L Potassium 5.3 H Chloride Carbon Dioxide 20.6 L BUN 20.0 H Creatinine Est GFR ( Amer) Est GFR (Non-Af Amer) 57 L Glucose 130 H Calcium 7.5 L Total Bilirubin 1.1 H AST ALT Alkaline Phosphatase 219 H Total Protein 5.1 L Albumin 1.7 L Procalcitonin Urine RBC Urine WBC Ur Squamous Epith Cells Urine Bacteria Staphylococcus sp PCR mecA/C-Methicil Resis Gene Staph epidermidis (PCR) Crossmatch 01/19/23 01/19/23 01/20/23 04:45 12:53 04:57 WBC RBC 2.19 L 2.62 L Hgb 7.6 L 9.7 L 8.8 L Hct 22.8 L* 29.9 L 26.4 L MCV 104.1 H 100.8 H MCH 34.7 H RDW 24.9 H 24.7 H Plt Count 105 L 109 L Neut % (Auto) 91.3 H 91.7 H Lymph % (Auto) 2.5 L 2.7 L Eos % (Auto) 0.0 L 0.0 L Neut # (Auto) Lymph # (Auto) 0.2 L 0.2 L [place] # (Auto) 0.2 L Abs Immat Gran (auto) 0.16 H 0.10 H Band Neutrophils % Lymphocytes % (Manual) Monocytes % (Manual) Eosinophils % (Manual) Basophils % (Manual) Imm/Tot Granulo (auto) 2.5 H 1.5 H Neutrophils # (Manual) Band Neutrophils # Lymphocytes # (Manual) Monocytes # (Manual) Sodium Potassium Chloride 108 H Carbon Dioxide 18.4 L 20.1 L BUN Creatinine Est GFR ( Amer) Est GFR (Non-Af Amer) Glucose 154 H 147 H Calcium 7.5 L 7.4 L Total Bilirubin AST ALT 12 L Alkaline Phosphatase 178 H 154 H Total Protein 4.4 L 4.3 L Albumin 1.4 L 1.4 L Procalcitonin Urine RBC Urine WBC Ur Squamous Epith Cells Urine Bacteria Staphylococcus sp PCR mecA/C-Methicil Resis Gene Staph epidermidis (PCR) Crossmatch 01/20/23 01/21/23 01/22/23 13:00 04:16 04:58 WBC RBC 2.59 L 2.64 L Hgb 8.8 L 8.9 L Hct 27.1 L 26.8 L MCV 104.6 H 101.5 H MCH RDW 24.6 H 23.5 H Plt Count 85 L 94 L Neut % (Auto) Lymph % (Auto) Eos % (Auto) Neut # (Auto) Lymph # (Auto) [place] # (Auto) Abs Immat Gran (auto) Band Neutrophils % Lymphocytes % (Manual) 1.0 L 7.0 L Monocytes % (Manual) 1.0 L Eosinophils % (Manual) 0.0 L 0.0 L Basophils % (Manual) 0.0 L 0.0 L Imm/Tot Granulo (auto) Neutrophils # (Manual) Band Neutrophils # Lymphocytes # (Manual) 0.04 L 0.42 L Monocytes # (Manual) 0.18 L 0.06 L Sodium 135 L Potassium 3.3 L Chloride Carbon Dioxide 18.7 L BUN 19.0 H 20.0 H Creatinine Est GFR ( Amer) Est GFR (Non-Af Amer) 57 L Glucose 133 H 136 H Calcium 7.4 L 6.9 L Total Bilirubin AST ALT 11 L Alkaline Phosphatase 136 H 127 H Total Protein 4.1 L 4.0 L Albumin 1.4 L 1.3 L Procalcitonin Urine RBC 2-5 A Urine WBC 0-2 A Ur Squamous Epith Cells Few A Urine Bacteria Trace A Staphylococcus sp PCR mecA/C-Methicil Resis Gene Staph epidermidis (PCR) Crossmatch Diagnostic Findings CT scan - chest: report reviewed and image reviewed (Bilateral pulmonary emboli, bilateral effusions, LEI cavitary area, emphysema) Assessment and Plan Assessment and Plan (1) Bilateral pulmonary embolism: Assessment and Plan: 1. Bilateral pulmonary emboli. Given cancer history, cannot R/O related to malignancy. She will need at least 3-6 months of anticoagulation; if cancer is not resolving by that time, argument can be made for extended anticoagulation or even possibly lifelong. Transition from LMWH to DOAC. As she already has an on cologist, I suggested she could follow up there for further management. Consider BLE Dopplers if not done already. Echocardiogram pending. 2. Left upper lobe cavitary lesion, pneumonia. Question manifestations of pulmonary infarctions opposed to actual infectious pneumonia - pulmonary emboli and associated ischemic/infarcted areas can mimic pneumonia. Regardless, benefits > risks for treatment with antibiotics in this patient. She will need a F/U CT in 2-3 months to document resolution of the LEI cavitary lesion. 3. Bilateral pleural effusions. Suspect related to pulmonary emboli. Can be monitored for now. No plans for thoracentesis at this time. 4. Centrilobular emphysema. Smoking cessation/celibacy. 5. Anal/rectal cancer. F/U with oncology.
[2023-01-22] MEDS: LEVOFLOXACIN 500 MG TABLET PO (13:30)
[2023-01-22] MEDS: OMEPRAZOLE 40 MG CAPSULE.DR PO (13:30)
--- NOTE | 2023-01-22 15:18 | P.CN_ITS ---
Discussed with P[employer] OPERATOR Yoselin Klein, I agree with the assessment and plan. Consult Note: HPI Data of Consult Consult date: 01/22/23 Requesting Physician: Darcy Ellis DO Primary Care Provider: Non-Staff Physician, MD Consult Narrative Reason for consult: Bradycardia Narrative: Pleasant 62 yo female presented to [facility] for weakness, fatigue. Past medical history significant for anal cancer s/p 6-week course of chemotherapy and radiation, depression, And environmental allergies; who presented to the ED complaining of severe generalized weakness and fatigue. The patient was diagnosed with rectal cancer approximately 1 year ago. She was initiated on a 6-week course of chemotherapy and radiation in October and this was completed at the end of November. She was found to be acutely anemic has received 3 units PRBC's. Cardiology was consulted r/t noted bradycardia, being that pt is in ICU and limited activity currently therefore difficult to assess if pt is asymptomatic or not with bradycardia. Pt denied any personal h/o cardiac disease, heart surgery or procedures in the past. States she quit smoking about 6 weeks ago. Denied chest pain, orthopnea, palpitations, near syncope or syncope over the last 1 month. cc:: CC: Darcy Ellis DO Review of Systems ROS Constitutional Reports: fatigue Cardiovascular Denies: chest pain, palpitations, edema, lightheadedness or shortness of breath with exertion Respiratory Denies: shortness of breath [facility] Medical History Acute hypotension ?I95.9 - Hypotension, unspecified (ICD-10) Anemia ?D64.9 - Anemia, unspecified (ICD-10) Depression ?F32.A - Depression, unspecified (ICD-10) Diarrhea ?R19.7 - Diarrhea, unspecified (ICD-10) GERD (gastroesophageal reflux disease) ?K21.9 - Gastro-esophageal reflux disease without esophagitis (ICD-10) Lung mass ?R91.8 - Other nonspecific abnormal finding of lung field (ICD-10) Meds Home Medications and Allergies Home Medications Medication Instructions Recorded Confirmed Type benzonatate 100 mg capsule 100 mg PO TID PRN cough 01/17/23 01/17/23 History buspirone 5 mg tablet 5 mg PO BID 01/17/23 01/17/23 History capecitabine 500 mg tablet 1,500 mg PO BID PRN radiologic 01/17/23 01/17/23 History visualization cetirizine 10 mg capsule (All Day 10 mg PO DAILY 01/17/23 01/17/23 History Allergy (cetirizine)) diphenoxylate-atropine 2.5 1 tab PO BID 01/17/23 01/17/23 History mg-0.025 mg tablet famotidine 20 mg tablet 20 mg PO BID 01/17/23 01/17/23 History hydroxyzine pamoate 25 mg capsule 25 mg PO BEDTIME PRN sleep 01/17/23 01/17/23 History lidocaine-prilocaine 2.5 %-2.5 % 1 applic topical TID PRN pain 01/17/23 01/17/23 History topical cream naloxone 4 mg/actuation nasal spray 4 mg intranasal Q3M 01/17/23 01/17/23 History oxycodone 5 mg tablet 5 mg PO Q6H PRN pain 01/17/23 01/17/23 History pantoprazole 20 mg tablet,delayed 20 mg PO DAILY 01/17/23 01/17/23 History release (Protonix) prochlorperazine maleate 10 mg 10 mg PO Q6H PRN nausea and 01/17/23 01/17/23 History tablet (Compazine) vomiting sertraline 50 mg tablet 50 mg PO DAILY 01/17/23 01/17/23 History silver sulfadiazine 1 % topical 1 applic topical BID 01/17/23 01/17/23 History cream (Silvadene) Allergies Allergy/AdvReac Type Severity Reaction Status Date / Time No Known Drug Allergies Allergy Verified 01/17/23 10:30 Exam Constitutional Vital Signs, click to edit/add: Last Vital Signs Temp 97.8 F 01/22/23 13:34 Pulse 54 L 01/22/23 13:47 Resp 18 01/22/23 13:34 BP 112/68 01/22/23 13:34 Pulse Ox 98 01/22/23 13:34 O2 Del Method Nasal Cannula 01/22/23 13:34 O2 Flow Rate 2 01/22/23 13:34 Common normals: no apparent distress, oriented x3, alert and well nourished General appearance: cooperative, comfortable and well kempt Respiratory Common normals: normal respiratory effort, no retractions, no use of accessory muscles and clear to auscultation bilaterally Cardio Common normals: no JVD, regular rate (Bradycardia- HR 55-58 bpm on tele), S1 normal heart sound, S2 normal heart sound, no gallops, no clicks, no murmurs and no rub Peripheral pulses: pulses 2+ throughout Extremity Common normals: normal capillary refill and no clubbing, cyanosis or edema Neuro Common normals: oriented x3, moves all extremities, no focal motor deficits and no sensory deficits noted Results Labs Labs: Short CBC 01/22/23 Range/Units 04:58 WBC 6.1 (4.0-11.0) 10^3/uL Hgb 8.9 L (12.0-16.0) g/dL Hct 26.8 L (36.0-48.0) % Plt Count 94 L (150-450) 10^3/uL BMP 01/22/23 04:58 Sodium 137 Potassium 3.3 L Chloride 105 Carbon Dioxide 21.2 BUN 20.0 H Creatinine 0.90 Glucose 136 H Calcium 6.9 L Liver Function 01/22/23 Range/Units 04:58 Total Bilirubin 0.4 (0.2-1.0) mg/dL AST 23 (15-37) U/L ALT 17 (14-59) U/L Alkaline Phosphatase 127 H (46-116) U/L Albumin 1.3 L (3.4-5.0) g/dL Initial HGb 5.1 on 01/17/23 ECG Attestation: ?I have reviewed the pertinent ECG results. Interpretation: EKG 01/17/23 Interpretive Statements 1100 Sinus rhythm 1470 with occasional supraventricular premature complexes 9140 abnormal rhythm ECG No previous ECG available for comparison Electronically Signed On 01-18-2023 7:08:06 EDT by VANESSA CAVAZOS Additional Findings Additional findings: Echocardiogram ordered- no results currently Assessment and Plan Assessment and Plan (1) Bilateral pulmonary embolism: Assessment and Plan: Managed by primary service, starting eliquis anticoagulation. (2) Asymptomatic bradycardia: Assessment and Plan: Noted asymptomatic sinus bradycardia- recommend event monitor at discharge to assess for any significant pauses, heart block or symptoms. Awaiting echocardiogram final results Replace electrolytes to maintain K+ > 4 and MAG > 2, recommend to maintain HGb > 8. Avoid all AV annie blocking agents. EKG ordered today to assess QT duration in light of levoquin. 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
--- NOTE | 2023-01-22 15:24 | ECG_ITS ---
[facility] Test Date: 2023-01-22 Pat Name: LESVIA MALDONADO Department: Room: [facility] Gender: Female Waste Elimination: : 1960 Requested By: [id number] Order Number: [id number] Reading MD: VANESSA CAVAZOS Measurements Intervals [place] Rate: 57 P: 32 RI: 180 QRS: 42 QRSD: 92 T: 51 QT: 500 QTc: 491 Interpretive Statements SINUS BRADYCARDIA LOW QRS VOLTAGE IN PRECORDIAL LEADS [QRS DEFLECTION < 1.0 mV IN CHEST LEADS] PROLONGED QT INTERVAL Compared to ECG 01/17/2023 10:53:29 Low QRS voltage now present Prolonged QT interval now present Sinus rhythm no longer present Electronically Signed On 01-24-2023 7:00:45 EDT by VANESSA CAVAZOS
[2023-01-22] MEDS: APIXABAN 5 MG TABLET PO (20:40)
--- NOTE | 2023-01-22 20:40 | RESP.RT ---
Sp02 ranging ranging from 87%-89% on 2L nasal cannula. Increased up to 3L and Sp02 increased to 90%.
[2023-01-23] VITALS (19 sets, daily range): BP systolic 101–127; BP diastolic 62–72; PULSE 54–72; RESP 18; TEMP 36.6; O2SAT 88–96
[2023-01-23] MEDS: LACTATED RINGER'S SOLUTION 1,000 ML 125 ML IV ×3 (02:18→18:49)
[2023-01-23] MEDS: OMEPRAZOLE 40 MG CAPSULE.DR PO (05:31)
--- NOTE | 2023-01-23 08:28 | PT.DAILY ---
Physical Therapy Daily Note PT Daily Note/Assess Start: 01/18/23 13:27 Freq: Status: Active Protocol: Document 01/23/23 08:27 ALTHEA (Rec: 01/23/23 08:28 ALTHEA [id number]) Visit Not Completed Visit Not Completed Visit Not Completed Due to: Pt refusing Other Reason Visit Not Completed Pt cont to refuse PT. Just wishes to rest. Reminded pt benefits of PT and she verbalized understanding but cont to decline. Will follow up tomorrow. Physical Therapy Daily Note/Assessment Time In/Time Out Time In 08:25 Time Out 08:28 GG. Functional Abilities and Goals-Complete for Swing Bed Patients Only [id number]. Self-Care [id number]. Mobility
--- NOTE | 2023-01-23 09:09 | US_ITS ---
The [place] [id number] Patient Name: LESVIA MALDONADO MRN: [id number] date: 1960 Sex: F Assigned Patient Location: [place] Current Patient Location: [place] Accession/Order Number: [id number] Exam Date: 01/23/2023 09:20 Report Date: 01/23/2023 10:14 At the request of: MARTITA FRAIRE Procedure: US venous doppler LE BI US venous doppler LE BI, 01/23/2023 9:20 AM EDT INDICATION: bilateral PE's COMPARISON: There is no appropriate prior study for comparison. There is no deep vein thrombosis in the bilateral femoral and popliteal and peroneal and posterior tibialis veins. The veins are all compressible. There is bilateral associated soft tissue swelling, left more than right. US/US venous doppler LE BI IMPRESSION: No deep vein thrombosis in the current study. Electronically authenticated by: FELIX PEOPLES Date: 01/23/2023 10:14
--- NOTE | 2023-01-23 09:16 | PM.DS1 ---
DS: Providers Provider Date of admission: 01/17/23 15:43 Primary care physician: Non-Staff Physician, Consults: 01/17/23 Consult to Dietitian Routine Reason For Exam: poor appetite Reason for consultation: poor appetite Has provider been notified: No 01/18/23 09:04 Consult to Dietitian Routine Reason For Exam: protein kassie malnutrition; Anal CA Reason for consultation: protein kassie malnutrition; Anal CA Has provider been notified: No 01/18/23 10:07 Occupational Therapy Eval and Treat Routine Reason for consultation: Weakness Physical Therapy Eval and Treat Routine Reason for consultation: Weakness 01/21/23 11:03 Consult to Cardiology Routine Reason for consultation: bilateral PE's, bacteremia, echo read Has provider been notified: No Consult to Pulmonology Routine Consulting Provider: Jett Frank Reason for consultation: Pneumonia, bilateral PE's Has provider been notified: Yes DS: Diagnosis Discharge Diagnosis (1) Bilateral pulmonary embolism: (2) Asymptomatic bradycardia: (3) Anemia: (4) Lung mass: (5) Septic shock: (6) Rectal cancer: (7) Protein-calorie malnutrition, severe: (8) Hypokalemia: (9) Acute hyponatremia: (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 FINAL TO FOLLOW. 01/17/23 13:09 Blood Culture Result 1 - Preliminary Blood NO GROWTH AT 36-48 HOURS. FINAL TO FOLLOW. Discharge Plan Discharge Condition: Good Discharge Medications: No Action buspirone 5 mg tablet 5 mg PO BID benzonatate 100 mg capsule 100 mg PO TID PRN (Reason: cough) capecitabine 500 mg tablet 1,500 mg PO BID PRN (Reason: radiologic visualization) Rx Instructions: TAKE 3 TABLETS 12 HR APART MON-FRI ON EACH DAY OF RADIATION All Day Allergy (cetirizine) 10 mg capsule 10 mg PO DAILY diphenoxylate-atropine 2.5-0.025 mg tablet 1 tab PO BID famotidine 20 mg tablet 20 mg PO BID hydroxyzine pamoate 25 mg capsule 25 mg PO BEDTIME PRN (Reason: sleep) naloxone 4 mg/actuation spray,non-aerosol 4 mg intranasal Q3M Rx Instructions: spray 1 dose into ONE nostril; alternate nostrils w each dose until help arrives oxycodone 5 mg tablet 5 mg PO Q6H PRN (Reason: pain) prochlorperazine maleate [Compazine] 10 mg tablet 10 mg PO Q6H PRN (Reason: nausea and vomiting) sertraline 50 mg tablet 50 mg PO DAILY silver sulfadiazine [Silvadene] 1 % cream 1 applic topical BID Rx Instructions: apply a 1.5 mm thickness pantoprazole [Protonix] 20 mg tablet,delayed release (DR/EC) 20 mg PO DAILY lidocaine-prilocaine 2.5-2.5 % cream 1 applic topical TID PRN (Reason: pain)
[2023-01-23] MEDS: BUSPIRONE HCL 10 MG TABLET 5 MG PO ×2 (10:02→20:40)
[2023-01-23] MEDS: APIXABAN 5 MG TABLET PO ×2 (10:02→20:41)
[2023-01-23] MEDS: SERTRALINE HCL 50 MG TABLET PO (10:03)
[2023-01-23] MEDS: SILVER SULFADIAZINE 1% CREAM 25 GM TUBE 1 APPLIC TOPICAL ×2 (10:03→22:00)
[2023-01-23] MEDS: OXYCODONE HCL 5 MG TABLET PO ×2 (10:33→20:40)
[2023-01-23] MEDS: DIPHENOXYLATE HCL 2.5 MG/ATROPINE 0.025 MG TABLET 1 TAB PO (10:33)
[2023-01-23] MEDS: HYDROXYZINE PAMOATE 25 MG CAPSULE PO (10:34)
--- NOTE | 2023-01-23 10:47 | SWNOTE1 ---
Pt will need home oxygen, SW called over to Cancer services in [place]. They would need patient to become established with them, by calling and filling out paperwork. They do offer financial assistance, which is usually for rent or bills but could be for oxygen. It is up to $200.00 per month, they would need to review it monthly. SW to let pt know. SW to get pricing from oxygen companies.
[2023-01-23 11:27] LABS: Hematocrit 30.8 % (36.0-48.0); Mean Corpuscular HGB Conc 32.5 g/dL (29.9-35.2); Mean Corpuscular Hemoglobin 34.1 pg (26.7-34.0); Mean Corpuscular Volume 105.1 fL (81.0-99.0); Mean Platelet Volume 12.6 fL (9.5-13.5); Platelet Count 92 10^3/uL (150-450); Red Blood Count 2.93 10^6/uL (4.20-5.40); Red Cell Distribution Width 23.2 % (11.0-15.0); White Blood Count 8.6 10^3/uL (4.0-11.0)
[2023-01-23 11:39] LABS: Alanine Aminotransferase 15 U/L (14-59); Albumin Globulin Ratio 0.4; Albumin Level 1.4 g/dL (3.4-5.0); Alkaline Phosphatase 137 U/L (46-116); Anion Gap 12.4; Aspartate Amino Transferase 35 U/L (15-37); BUN Creatinine Ratio 17.7; Bilirubin Total 0.7 mg/dL (0.2-1.0); Calcium 7.2 mg/dL (8.5-10.1); Carbon Dioxide 21.4 mmol/L (21.0-32.0); Chloride 105 mmol/L (98-107); Estimated GFR (African America >60 (>=60); Estimated GFR (Non-African Ame 59 (>=60); Globulin 3.2 g/dL; Glucose 77 mg/dL (74-106); Potassium 3.8 mmol/L (3.5-5.1); Sodium 135 mmol/L (136-145); Total Protein 4.6 g/dL (6.4-8.2)
--- NOTE | 2023-01-23 11:40 | CM.NOTE ---
Rounds made with Dr. Ellis, discussed discharge to home today. Pt will also need home oxygen, pt verbalizes understanding the out of pocket expense. Pt continues to refuse HH at this point. Dr. Ellis discussed safety at home and importance of getting up and moving, encouraged pt to work with PT today.
[2023-01-23 11:46] LABS: Lymphocytes Absolute Manual 0.17 10^3/uL (1.20-3.80); Monocytes Absolute Manual 0.17 10^3/uL (0.30-0.80); Segmented Neut Absolute Manual 8.25 10^3/uL (1.4-6.5)
[2023-01-23 11:47] LABS: Anisocytosis 3+; Macrocytosis 2+
--- NOTE | 2023-01-23 11:53 | SWNOTE1 ---
SW did get pricing for home oxygen. [facility] is $115.00 for concentrator and $25 for portability, then each tank is $9.00 a piece, SW to call back to see how often she will need tanks. [facility] is around $250.00 for everything. Pt did voice she is able to have a card on file. She is also going to reach out to family in regards to this. During huddle nursing also brought up hospice, SW did approach this with pt. SW asked if anyone has ever spoke with her about it, she stated they have. SW let her know we can have hospice come here and do an education with her and let her know what resources they can offer. SW let pt know it is likely hospice will be able to provide bed, oxygen, etc. Pt apologized as she was closing her eyes and just received a pain pill not long ago. SW then let pt know to think about it and it is possible she will be discharged today. Pt stated she is not sure she will discharge today. SW asked if she has been out of bed today? She stated no. SW encouraged her to get up and try to get to the bathroom. SW expressed we will need to see if she can ambulate since her plan is to return home. Pt voiced understanding. MAHAMED then asked if she had a preference on [employer] companies for home oxygen. She stated whatever is cheaper. SW to check with [employer] about tank pricing. SW to check back with pt as well in regards to hospice.
[2023-01-23] MEDS: LEVOFLOXACIN 500 MG TABLET PO (13:21)
[2023-01-23] MEDS: BENZONATATE 100 MG CAPSULE PO (13:22)
--- NOTE | 2023-01-23 13:35 | PM.PN ---
Progress Note: Subjective Subjective Interval history: patient denies any shortness of breath or chest pain. She does note that her anxiety and depression have been worse since being hospitalized and the Vistaril that was started yesterday seems to be helping. She denies any fevers or cough. No other concerns or issues this morning. still requiring oxygen, does not have at home. Exam Narrative Exam Narrative: General: Patient is alert, and oriented to person, place and time with normal affect, proper hygiene Heart: Normal rate and rhythm, no murmurs/rubs/gallops Lungs: no audible wheezes, crackles and normal breath sounds all lung nova Musculoskeletal: no swelling bilateral lower extremities Neuro: CN II-X grossly intact, normal sensation upper and lower extremities Constitutional Vital Signs, click to edit/add: Last Vital Signs Temp 97.9 F 01/23/23 13:29 Pulse 64 01/23/23 13:29 Resp 18 01/23/23 13:29 BP 101/63 01/23/23 13:29 Pulse Ox 90 L 01/23/23 13:29 O2 Del Method Nasal Cannula 01/23/23 13:29 O2 Flow Rate 3 01/23/23 13:29 Progress Note: Objective Labs Labs: Short CBC 01/23/23 Range/Units 11:16 WBC 8.6 (4.0-11.0) 10^3/uL Hgb 10.0 L (12.0-16.0) g/dL Hct 30.8 L (36.0-48.0) % Plt Count 92 L (150-450) 10^3/uL BMP 01/23/23 11:16 Sodium 135 L Potassium 3.8 Chloride 105 Carbon Dioxide 21.4 BUN 17.0 Creatinine 0.96 Glucose 77 Calcium 7.2 L Liver Function 01/23/23 Range/Units 11:16 Total Bilirubin 0.7 (0.2-1.0) mg/dL AST 35 (15-37) U/L ALT 15 (14-59) U/L Alkaline Phosphatase 137 H (46-116) U/L Albumin 1.4 L (3.4-5.0) g/dL Progress Note: A&P Assessment and Plan (1) Bilateral pulmonary embolism: Assessment and Plan: as seen on CT of the chest which showed acute pulmonary embolism involving the left intralobar pulmonary artery extending into segmental branches of the left upper lobe and lower lobe as well as filling defect in the segmental branches of the right upper and right lower lobes. Bilateral moderate pleural effusions. I started therapeutic Lovenox at 60 mg twice a day but now on eliquis 5mg BID. patient with known history of rectal carcinoma. I also discussed case with her oncologist for any further recommendations, Dr. Rosemarie Smith's office with [facility] oncology agrees with plan to discharge on Eliquis and they will see her in follow up. patient will need home oxygen of 2L NC continuous. Bilateral venous Doppler negative for DVT's (2) Pneumonia: Assessment and Plan: White blood cell count is within normal range. So far blood cultures have been positive ?1 for MRSE sensitive to Oral Levaquin. this was started yesterday and she will be discharged home on it tomorrow. (3) Rectal cancer: Assessment and Plan: follow with oncology (4) Protein-calorie malnutrition, severe: (5) Radiation colitis: Assessment and Plan: using topicals only , stool cultures negative. (6) Anemia associated with chemotherapy: Assessment and Plan: Hemoglobin stable Plan patient is full code eliquis for active bilateral PE's Patient continues to improve, will need home oxygen, discharge home tomorrow
--- NOTE | 2023-01-23 14:07 | SWNOTE1 ---
SW spoke with pt again in regards to her discharging today and her plans. Pt seems surprised that she is being discharged and voiced some worry as she is weak. SW explained to pt that therapy has been trying to encourage her to get up and work with them, but pt has been refusing. Pt stated she knows. SW asked if she is home alone all day, she stated during day and then at night her significant other is there. SW explained to her to help her weakness she has to get up and move even if she feels tired. SW then spoke with her about her oxygen. Pt is agreeable to pay, but she needs to talk with her significant other to put a card on file. She is going to call him around 2;30. SW to come back. SW gave her pricing and let her know it would be a monthly payment. SW let her know the cancer services in [place] can assist, but they need her to call and fill out paperwork. Pt has the pamphlet for cancer services. Pt also has home health list and caregiver list. SW then asked about hospice. Pt does not want them now, but possibly once home. SW to give her the numbers for hospice. Pt did ask about resources they can offer, SW let her know a variety of services and recommended she call, SW is not sure how private pay works in regards to hospice. SW has message out to a hospice company. SW to send script and face sheet to [facility]. Pt is aware that if she does get insurance she will need to perform a walk test to keep her oxygen, which could be done with PCP. Pt does not have a PCP, but could possibly do it through the oncologist. SW to also give pt resources in regards to PCP, but she is private pay. SW did ask her if she is looking into an insurance and she stated she is, she turns 63 next year. Pt spoke about medicare and she gets social security monthly. W let her know the enrollment period is soon and also provided her with a booklet from last year. SW asked about medicaid as well and let her know it is based on income. SW to come back and talk with pt around 2:30. SW sent referral to [facility].
--- NOTE | 2023-01-23 14:32 | SWNOTE1 ---
Pt is not being discharged home today. SW to encourage pt to get up and work with therapy today so she knows how strong she is and her limits. SW to set up oxygen today and let oxygen company know it will be tomorrow for discharge.
--- NOTE | 2023-01-23 15:44 | SWNOTE1 ---
MAHAMED has sent information to [facility] and will get card information to [facility] tomorrow once her significant other brings it in. SW updated her in regards to hospice. All of the hospices do have a out of pocket expense for self pay, but they do financial assistance forms with pt's to see if they qualify for help. MAHAMED explained this to pt. [facility] requested we send information over so they can follow up with pt after discharge, pt gave permission. MAHAMED asked if she would like any of them to come and talk with her prior to discharge and she stated she wants to get home and settled first. MAHAMED let her know if she changes her mind to let SW know.MAHAMED updated nursing.
--- NOTE | 2023-01-23 15:59 | SWNOTE1 ---
Information sent to [facility] and they will follow up with patient after discharge.
[2023-01-24] VITALS (17 sets, daily range): BP systolic 82–118; BP diastolic 58–73; PULSE 70–85; RESP 16–22; TEMP 36.7–36.9; O2SAT 90–98
[2023-01-24] MEDS: LACTATED RINGER'S SOLUTION 1,000 ML 125 ML IV (02:48)
[2023-01-24 04:44] LABS: Eosinophils Percent Auto 0.1 % (0.9-7.0); Hematocrit 27.3 % (36.0-48.0); Immature Granulocytes Abs Auto 0.05 10^3/uL (0.00-0.03); Immature Granulocytes Pct Auto 0.7 % (0.0-0.5); Lymphocytes Absolute Auto 0.1 10^3/uL (1.2-3.8); Lymphocytes Percent Auto 1.7 % (20.5-60.0); Mean Corpuscular Hemoglobin 33.3 pg (26.7-34.0); Mean Corpuscular Volume 101.1 fL (81.0-99.0); Mean Platelet Volume 11.5 fL (9.5-13.5); Monocytes Absolute Auto 0.2 10^3/uL (0.3-0.8); Monocytes Percent Auto 2.5 % (1.7-12.0); Neutrophils Absolute Auto 6.5 10^3/uL (1.4-6.5); Platelet Count 81 10^3/uL (150-450); Red Cell Distribution Width 22.8 % (11.0-15.0); White Blood Count 6.9 10^3/uL (4.0-11.0)
[2023-01-24 05:07] LABS: Alanine Aminotransferase 15 U/L (14-59); Albumin Globulin Ratio 0.5; Albumin Level 1.4 g/dL (3.4-5.0); Alkaline Phosphatase 130 U/L (46-116); Anion Gap 8.4; Aspartate Amino Transferase 23 U/L (15-37); BUN Creatinine Ratio 11.4; Bilirubin Total 0.6 mg/dL (0.2-1.0); Carbon Dioxide 27.2 mmol/L (21.0-32.0); Chloride 104 mmol/L (98-107); Estimated GFR (African America >60 (>=60); Estimated GFR (Non-African Ame >60 (>=60); Glucose 88 mg/dL (74-106); Sodium 137 mmol/L (136-145); Total Protein 4.4 g/dL (6.4-8.2)
[2023-01-24 05:15] LABS: Potassium 2.6 mmol/L (3.5-5.1)
[2023-01-24] MEDS: OMEPRAZOLE 40 MG CAPSULE.DR PO (06:33)
[2023-01-24] MEDS: POTASSIUM CHLORIDE 10 MEQ ER TABLET 40 MEQ PO ×3 (06:34→21:23)
[2023-01-24] MEDS: MAGNESIUM OXIDE 400 MG TABLET PO (06:34)
[2023-01-24] MEDS: SERTRALINE HCL 50 MG TABLET PO (09:34)
[2023-01-24] MEDS: APIXABAN 5 MG TABLET PO ×2 (09:34→20:42)
[2023-01-24] MEDS: BUSPIRONE HCL 10 MG TABLET 5 MG PO ×2 (09:34→20:42)
[2023-01-24] MEDS: POTASSIUM CHLORIDE IN WATER 10 MEQ/100 ML PIGGYBACK 100 MEQ IV (09:34)
--- NOTE | 2023-01-24 09:36 | SWNOTE1 ---
Pt has decided she would like to speak to hospice this morning before discharge. MAHAMED sent email to Donna at [facility]. MAHAMED also received phone call from Santosh her significant other who she has been living with for 8 years. He was calling to clarify discharge plan. He spoke with pt and she was not sure. SW did let him know we spoke about hospice yesterday and she is now open to them coming to speak with her today before discharge. SW also let him know she will need home oxygen and a walker at home. Hospice may be able to provide depending if she signs on. Santosh did state he is off work today and would be able to get walker. MAHAMED reminded him of Cancer Services and filling out form and they are open until 3pm. Santosh also mentioned her sister is coming from [facility] and she is a physical therapist and would like to be present for hospice visit. She should be in later this morning. MAHAMED sent email to [place] requesting they come around noon, waiting to hear back.
[2023-01-24] MEDS: SILVER SULFADIAZINE 1% CREAM 25 GM TUBE 1 APPLIC TOPICAL ×2 (09:37→20:43)
--- NOTE | 2023-01-24 10:37 | CM.NOTE ---
Rounds made with Dr. Ellis, discussed safe transition to home. Discussed with pt HH, Hospice, home oxygen. Pt at this time in agreement to speak with Hospice today. SW will reach out to Hospice.
--- NOTE | 2023-01-24 11:04 | P.PN_ITS ---
Progress Note: Subjective Subjective Interval history: patient denies any shortness of breath or chest pain. She denies any fevers or cough. No other concerns or issues this morning. still requiring oxygen, does not have at home. Long talk with patient about future wishes today. She was amendable to Hospice consult today. She also says she will work with therapy today so she can get home. We also discussed removal of urinary catheter today and her getting up to use bedside commode. All of these things need to happen to get her home. Exam Narrative Exam Narrative: General: Patient is alert, and oriented to person, place and time with normal affect, proper hygiene Heart: Normal rate and rhythm, no murmurs/rubs/gallops Lungs: no audible wheezes, crackles and normal breath sounds all lung nova Musculoskeletal: no swelling bilateral lower extremities Neuro: CN II-X grossly intact, normal sensation upper and lower extremities Constitutional Vital Signs, click to edit/add: Last Vital Signs Temp 98.5 F 01/24/23 06:42 Pulse 74 01/24/23 10:22 Resp 22 01/24/23 06:42 BP 118/73 01/24/23 06:42 Pulse Ox 95 01/24/23 06:42 O2 Del Method Nasal Cannula 01/24/23 06:42 O2 Flow Rate 3 01/24/23 06:42 Progress Note: Objective Labs Labs: Short CBC 01/23/23 01/24/23 Range/Units 11:16 04:20 WBC 8.6 6.9 (4.0-11.0) 10^3/uL Hgb 10.0 L 9.0 L (12.0-16.0) g/dL Hct 30.8 L 27.3 L (36.0-48.0) % Plt Count 92 L 81 L (150-450) 10^3/uL BMP 01/23/23 01/24/23 11:16 04:20 Sodium 135 L 137 Potassium 3.8 2.6 L* Chloride 105 104 Carbon Dioxide 21.4 27.2 BUN 17.0 10.0 Creatinine 0.96 0.88 Glucose 77 88 Calcium 7.2 L 7.0 L Liver Function 01/23/23 01/24/23 Range/Units 11:16 04:20 Total Bilirubin 0.7 0.6 (0.2-1.0) mg/dL AST 35 23 (15-37) U/L ALT 15 15 (14-59) U/L Alkaline Phosphatase 137 H 130 H (46-116) U/L Albumin 1.4 L 1.4 L (3.4-5.0) g/dL Progress Note: A&P Assessment and Plan (1) Bilateral pulmonary embolism: Assessment and Plan: as seen on CT of the chest which showed acute pulmonary embolism involving the left intralobar pulmonary artery extending into segmental branches of the left upper lobe and lower lobe as well as filling defect in the segmental branches of the right upper and right lower lobes. Bilateral moderate pleural effusions. I started therapeutic Lovenox at 60 mg twice a day but now on eliquis 5mg BID. patient with known history of rectal carcinoma. I also discussed case with her oncologist for any further recommendations, Dr. Rosemarie Smith's office with [facility] oncology agrees with plan to discharge on Eliquis and they will see her in follow up. patient will need home oxygen of 2L NC continuous. Bilateral venous Doppler negative for DVT's (2) Pneumonia: Assessment and Plan: White blood cell count is within normal range. So far blood cultures have been positive ?1 for MRSE sensitive to Oral Levaquin. (3) Hypokalemia: Assessment and Plan: replace today, at 2.6, recheck at 1300. 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 (7) Anemia associated with chemotherapy: Assessment and Plan: Hemoglobin stable Plan patient is full code eliquis for active bilateral PE's Patient continues to improve, will need home oxygen, discharge home tomorrow
--- NOTE | 2023-01-24 11:23 | SWNOTE1 ---
[facility] will be here around 12:00 to see pt, SW notified pt and Santosh.
[2023-01-24 13:56] LABS: Anion Gap 12.3; Calcium 7.2 mg/dL (8.5-10.1); Carbon Dioxide 26.8 mmol/L (21.0-32.0); Chloride 101 mmol/L (98-107); Estimated GFR (African America >60 (>=60); Estimated GFR (Non-African Ame >60 (>=60); Glucose 88 mg/dL (74-106); Potassium 3.1 mmol/L (3.5-5.1); Sodium 137 mmol/L (136-145)
--- NOTE | 2023-01-24 14:43 | SWNOTE1 ---
MAHAMED spoke with Donna from [facility] and pt, Santosh, and pt's sister are all interested in hospice services. Donna and a 7th grade social studies teacher from [place] will be coming back tomorrow to go over potential pricing for services/equipment in the home. SW to let nursing know. Pt is staying one more night, Dr. Ellis came in and let pt and family know she is able to stay one more night. Pt will be discharged on eliquis. MAHAMED and case management director took a discount/free sample card for eliquis and good rx card in as well and gave to pt's sister. Encouraged them to call the eliquis card to find out more information after the free 30day trial ends. [facility] did ask pt again about her finances and pt does get social security from her ex- and also a pension from her ex-, a total of about $2,000 per month. Pt does own her home with Santosh, her car is paid off. Pt and sister voiced she applied for medicaid and was denied.
[2023-01-24] MEDS: ENSURE HP 237 ML LIQUID PO ×2 (15:29→20:43)
[2023-01-24] MEDS: LEVOFLOXACIN 500 MG TABLET PO (15:29)
[2023-01-24] MEDS: OXYCODONE HCL 5 MG TABLET PO (20:47)
[2023-01-25] VITALS (11 sets, daily range): BP systolic 130; BP diastolic 75; PULSE 66–96; RESP 16; TEMP 36.6; O2SAT 94–95
[2023-01-25 05:04] LABS: Hematocrit 28.8 % (36.0-48.0); Hemoglobin 8.9 g/dL (12.0-16.0); Mean Corpuscular HGB Conc 30.9 g/dL (29.9-35.2); Mean Corpuscular Hemoglobin 33.5 pg (26.7-34.0); Mean Corpuscular Volume 108.3 fL (81.0-99.0); Mean Platelet Volume 12.2 fL (9.5-13.5); Platelet Count 82 10^3/uL (150-450); Red Blood Count 2.66 10^6/uL (4.20-5.40); Red Cell Distribution Width 23.1 % (11.0-15.0); White Blood Count 7.1 10^3/uL (4.0-11.0)
[2023-01-25 05:38] LABS: Alanine Aminotransferase 11 U/L (14-59); Albumin Globulin Ratio 0.4; Albumin Level 1.4 g/dL (3.4-5.0); Alkaline Phosphatase 145 U/L (46-116); Anion Gap 9.6; Aspartate Amino Transferase 16 U/L (15-37); BUN Creatinine Ratio 8.7; Bilirubin Total 0.6 mg/dL (0.2-1.0); Calcium 7.5 mg/dL (8.5-10.1); Carbon Dioxide 26.9 mmol/L (21.0-32.0); Chloride 102 mmol/L (98-107); Estimated GFR (African America >60 (>=60); Estimated GFR (Non-African Ame >60 (>=60); Globulin 3.3 g/dL; Glucose 94 mg/dL (74-106); Potassium 3.5 mmol/L (3.5-5.1); Sodium 135 mmol/L (136-145); Total Protein 4.7 g/dL (6.4-8.2)
[2023-01-25] MEDS: OMEPRAZOLE 40 MG CAPSULE.DR PO (05:42)
[2023-01-25] MEDS: POTASSIUM CHLORIDE 10 MEQ ER TABLET 40 MEQ PO ×2 (05:42→14:50)
[2023-01-25 06:40] LABS: Segmented Neut Absolute Manual 6.88 10^3/uL (1.4-6.5)
[2023-01-25 06:41] LABS: Lymphocytes Absolute Manual 0.07 10^3/uL (1.20-3.80); Monocytes Absolute Manual 0.14 10^3/uL (0.30-0.80); Toxic Vacuolation 3+
[2023-01-25 06:42] LABS: Anisocytosis 2+; Macrocytosis 2+
--- NOTE | 2023-01-25 10:25 | SWNOTE1 ---
Hospice is in room doing financial evaluation, after that is completed a nurse will do an eval. SW to check back in after this is completed.
[2023-01-25] MEDS: ENSURE HP 237 ML LIQUID PO (11:09)
[2023-01-25] MEDS: SILVER SULFADIAZINE 1% CREAM 25 GM TUBE 1 APPLIC TOPICAL (11:10)
[2023-01-25] MEDS: BUSPIRONE HCL 10 MG TABLET 5 MG PO (11:10)
[2023-01-25] MEDS: SERTRALINE HCL 50 MG TABLET 75 MG PO (11:10)
[2023-01-25] MEDS: APIXABAN 5 MG TABLET PO (11:10)
--- NOTE | 2023-01-25 12:44 | CM.NOTE ---
Rounds made with eric Hunter for discharge today. Pt will f/u with cloth tearer and oncologist. Pt will go home with [facility] to follow.
--- NOTE | 2023-01-25 12:47 | P.DS_ITS ---
DS: Providers Provider Date of admission: 01/17/23 15:43 Primary care physician: Non-Staff Physician, Admitting clinician: Ceasar Velazquez Consults: 01/17/23 Consult to Dietitian Routine Reason For Exam: poor appetite Reason for consultation: poor appetite Has provider been notified: No 01/18/23 09:04 Consult to Dietitian Routine Reason For Exam: protein kassie malnutrition; Anal CA Reason for consultation: protein kassie malnutrition; Anal CA Has provider been notified: No 01/18/23 10:07 Occupational Therapy Eval and Treat Routine Reason for consultation: Weakness Physical Therapy Eval and Treat Routine Reason for consultation: Weakness 01/21/23 11:03 Consult to Cardiology Routine Reason for consultation: bilateral PE's, bacteremia, echo read Has provider been notified: No Consult to Pulmonology Routine Consulting Provider: Jett Frank Reason for consultation: Pneumonia, bilateral PE's Has provider been notified: Yes 01/24/23 Consult to Hospice Routine Reason for consultation: cancer diagnosis Attending physician on discharge: Darcy Ellis DS: Diagnosis Discharge Diagnosis (1) Bilateral pulmonary embolism: (2) Pneumonia: (3) Hypokalemia: (4) Rectal cancer: (5) Protein-calorie malnutrition, severe: (6) Radiation colitis: (7) Anemia associated with chemotherapy: DS: Summary Hospital Course Hospital Course: Hospital course was complicated by: (1) Bilateral pulmonary embolism: Assessment and Plan: as seen on CT of the chest which showed acute pulmonary embolism involving the left intralobar pulmonary artery extending into segmental branches of the left upper lobe and lower lobe as well as filling defect in the segmental branches of the right upper and right lower lobes. Bilateral moderate pleural effusions. I started therapeutic Lovenox at 60 mg twice a day and at the time of discharge will be on eliquis 5mg BID. patient with known history of rectal carcinoma. I also discussed case with her oncologist for any further recommendations, Dr. Rosemarie Smith's office with [facility] oncology agrees with plan to discharge on Eliquis and they will see her in follow up. patient will need home oxygen of 2L NC continuous. Bilateral venous Doppler negative for DVT's (2) Pneumonia: Assessment and Plan: White blood cell count is within normal range. So far blood cultures have been positive ?1 for MRSE sensitive to Oral Levaquin, most likely contaminant, but will treat with 4 more days of oral levaquin as outpatient for a total of 7 days. (3) Hypokalemia: Assessment and Plan: replaced, will be discharged home on 20mEQ BID, 3.5 on discharge, will need repeat BMP 7 days. (4) Rectal cancer: Assessment and Plan: follow with oncology, plans to go home with hospice (5) Protein-calorie malnutrition, severe: Assessment and Plan: placed on Ensure BID, may continue outpatient (6) Radiation colitis: Assessment and Plan: using topicals only with bowel movements, has improved through out her stay , stool cultures negative. (7) Anemia associated with chemotherapy: Assessment and Plan: Hemoglobin stable at the time of discharge at 8.9, recheck CBC 7 days Lots of discharge planning took place, patient has a home walker now, home oxygen, and home hospice. She was given a 30 day voucher for EliAgilys and will need a PCP or her oncology team to apply for associate financial analyst for this. (8) depression: i increased her zoloft to 75mg daily. Status at Discharge Functional status at discharge: uses cane/walker Overall status at discharge: patient is progressing back to baseline Time Spent with Patient Time attestation: Total time spent providing and/or coordinating discharge services: Time spent: greater than 30 minutes Exam Narrative Exam Narrative: General: Patient is alert, and oriented to person, place and time with normal affect, proper hygiene, cachexia Skin: no visible rashes, or ulcers Head: atraumatic, acephalic Eyes: PERRLA, no nystagmus present, conjunctiva clear, no scleral icterus Ears: normal gross auditory acuity Nose: symmetric, no discharge, no maxillary or frontal sinus tenderness Mouth/Throat: no erythema, exudate, or tonsillar enlargement, normal dentition Neck: no masses palpated, normal thyroid Heart: Normal rate and rhythm, no murmurs/rubs/gallops Lungs: no audible wheezes, crackles and normal breath sounds all lung nova Abdomen: Normal audible bowel sounds, no distension, No palpable masses, no organomegaly, no rebound/guarding/ or rigidity Musculoskeletal: no swelling bilateral lower extremities Neuro: CN II-X grossly intact, normal sensation upper and lower extremities Constitutional Vital Signs, click to edit/add: Last Vital Signs Temp 97.9 F 01/25/23 05:46 Pulse 83 01/25/23 12:05 Resp 16 01/25/23 05:46 BP 130/75 01/25/23 05:46 Pulse Ox 95 01/25/23 12:15 O2 Del Method Nasal Cannula 01/25/23 12:15 O2 Flow Rate 2 01/25/23 12:15 DS: Data Data Completed and Pending Labs on day of discharge: Labs from last 24 hours 01/25/23 01/24/23 04:13 13:15 WBC 7.1 RBC 2.66 L Hgb 8.9 L Hct 28.8 L MCV 108.3 H MCH 33.5 MCHC 30.9 RDW 23.1 H Plt Count 82 L MPV 12.2 Seg Neuts % (Manual) 97.0 Lymphocytes % (Manual) 1.0 L Monocytes % (Manual) 2.0 Eosinophils % (Manual) 0.0 L Basophils % (Manual) 0.0 L Neutrophils # (Manual) 6.88 H Lymphocytes # (Manual) 0.07 L Monocytes # (Manual) 0.14 L Eosinophils # (Manual) 0.00 Basophils # (Manual) 0.00 Toxic Vacuolation 3+ Anisocytosis 2+ Macrocytosis 2+ Sodium 135 L 137 Potassium 3.5 3.1 L Chloride 102 101 Carbon Dioxide 26.9 26.8 Anion Gap 9.6 12.3 BUN 8.0 10.0 Creatinine 0.92 0.83 Est GFR ( Amer) >60 >60 Est GFR (Non-Af Amer) >60 >60 BUN/Creatinine Ratio 8.7 12.0 Glucose 94 88 Calcium 7.5 L 7.2 L Total Bilirubin 0.6 AST 16 ALT 11 L Alkaline Phosphatase 145 H Total Protein 4.7 L Albumin 1.4 L Globulin 3.3 Albumin/Globulin Ratio 0.4 Discharge Plan Discharge Disposition: Hospice - Home Condition: Good Discharge Medications: New levofloxacin 500 mg Tablet 500 mg PO Q24H 4 Days Qty: 4 0RF sertraline 50 mg Tablet 75 mg PO DAILY 30 Days Qty: 45 0RF potassium chloride [Klor-Con M10] 10 mEq Tablet,Er Particles/Crystals 20 meq PO BID 10 Days Qty: 40 0RF Eliquis 5 mg Tablet 5 mg PO BID 30 Days Qty: 60 0RF Continued buspirone 5 mg tablet 5 mg PO BID benzonatate 100 mg capsule 100 mg PO TID PRN (Reason: cough) capecitabine 500 mg tablet 1,500 mg PO BID PRN (Reason: radiologic visualization) Rx Instructions: TAKE 3 TABLETS 12 HR APART MON-FRI ON EACH DAY OF RADIATION All Day Allergy (cetirizine) 10 mg capsule 10 mg PO DAILY diphenoxylate-atropine 2.5-0.025 mg tablet 1 tab PO BID famotidine 20 mg tablet 20 mg PO BID hydroxyzine pamoate 25 mg capsule 25 mg PO BEDTIME PRN (Reason: sleep) naloxone 4 mg/actuation spray,non-aerosol 4 mg intranasal Q3M Rx Instructions: spray 1 dose into ONE nostril; alternate nostrils w each dose until help arrives oxycodone 5 mg tablet 5 mg PO Q6H PRN (Reason: pain) prochlorperazine maleate [Compazine] 10 mg tablet 10 mg PO Q6H PRN (Reason: nausea and vomiting) silver sulfadiazine [Silvadene] 1 % cream 1 applic topical BID Rx Instructions: apply a 1.5 mm thickness pantoprazole [Protonix] 20 mg tablet,delayed release (DR/EC) 20 mg PO DAILY lidocaine-prilocaine 2.5-2.5 % cream 1 applic topical TID PRN (Reason: pain) Discontinued sertraline 50 mg tablet 50 mg PO DAILY Activity: ambulate only with your walker and wear oxygen at all times Diet: advance to your usual diet Activity Restrictions/Additional Instructions: Follow up with Hem/onc as soon as possible, Dr. Rosemarie Smith, medical oncology will need bmp wear home oxygen 2L NC continuous will need at least 12 months of eliquis but may need longer per oncology recommendations. Forms: Portal Instructions Follow Up Appointments: Follow up appt. with Dr. Lowery (oncology) on @ 1:30pm at [facility] Office #: [phone] ext. [phone] Patient is to bring medications she is currently taking in their original bottles to the appt.
--- NOTE | 2023-01-25 13:31 | SWNOTE1 ---
Pt is going to go home with [facility]. Hospice and family were in room for financial meeting and nursing assessment. We are going to send pt home with one of our oxygen tanks and hospice or family would bring the tank back. Pt's sister has concentrator at the home and then Hospice will have rest of oxygen delivered to home. SW sent HCAP information that was completed to [facility]. SW answered all other questions family had and SW to send dc med rec to Hospice once completed. Hospice will stop at home this evening and also do a visit tomorrow morning.
[2023-01-25] MEDS: LEVOFLOXACIN 500 MG TABLET PO (14:50)
== END 2023-01-25 15:28 | disposition hospice, home (50) | DRG 871 ==
LOC: ER 14:37 → ICU 15:52 → MS 01-22 12:44
PROVIDERS: Family Medicine; Nurse Practitioner; Admitting Provider Family Medicine; Emergency Provider Emergency Medicine
DX: A41.1 Sepsis due to other specified staphylococcus (principal); E43 Unspecified severe protein-calorie malnutrition; J18.9 Pneumonia, unspecified organism; R65.21 Severe sepsis with septic shock; I26.99 Other pulmonary embolism without acute cor pulmonale; N17.9 Acute kidney failure, unspecified; K52.0 Gastroenteritis and colitis due to radiation; C20 Malignant neoplasm of rectum; E87.1 Hypo-osmolality and hyponatremia; Z16.11 Resistance to penicillins; E86.0 Dehydration; E87.6 Hypokalemia; I95.9 Hypotension, unspecified; R00.1 Bradycardia, unspecified; D64.81 Anemia due to antineoplastic chemotherapy; F32.A Depression, unspecified; K21.9 Gastro-esophageal reflux disease without esophagitis; R91.8 Other nonspecific abnormal finding of lung field; Z68.20 Body mass index [BMI] 20.0-20.9, adult; Z79.899 Other long term (current) drug therapy; Z87.891 Personal history of nicotine dependence
CPT/HCPCS: 0202U; 36415; 36430; 51702; 71045; 71260; 74177; 80048; 80053; 80202; 81001; 83605; 84132; 84145; 84484; 85014; 85018; 85025; 85027; 86850; 86900; 86901; 87040; 87045; 87070; 87150; 87186; 87493; 93005; 93306; 93970; 94640; 94761; 96361; 96365; 96366; 96367; 96368; 96372; 96375; 96376; 97110; 97161; 97165; 97530; 99285; G0328; J0456; J2930; J3370; J3480; P9016; Q9967

== ENCOUNTER 2023-01-30 07:31 | Outpatient (RCR) | payer SELFPAY | END 2023-02-06 23:59 | disposition home or self-care (01) | LOC: INF 07:31 | PROVIDERS: Visit Provider Internal Medicine Hematology & Oncology | DX: Z53.9 Procedure and treatment not carried out, unspecified reason (principal) ==

== ENCOUNTER 2023-08-21 07:42 | Outpatient (RCR) | payer SELFPAY | END 2023-09-07 23:59 | disposition home or self-care (01) | LOC: INF 07:42 | PROVIDERS: Visit Provider Internal Medicine Hematology & Oncology | DX: C21.0 Malignant neoplasm of anus, unspecified (principal); D64.9 Anemia, unspecified; D69.6 Thrombocytopenia, unspecified | CPT/HCPCS: G0463 ==

== ENCOUNTER 2023-10-15 12:50 | Outpatient (OUT) | payer MEDICARE, SELFPAY | END 2023-10-15 12:51 | disposition home or self-care (01) | LOC: PST 12:50 | PROVIDERS: Visit Provider Surgery | DX: Z01.818 Encounter for other preprocedural examination (principal); C21.0 Malignant neoplasm of anus, unspecified ==

== ENCOUNTER 2023-10-24 06:43 | Day surgery (SDC) | payer MEDICARE, OTHER, SELFPAY ==
--- OUTSIDE RECORDS SUMMARY | 2023-10-24 06:49 | XMS_ITS | CCD ---
Author Organization [facility] Care Team Providers Care Residential Child Care Counselor Name Role Phone Lizbeth Penaloza Primary Care Provider Lizbeth Penaloza Attending Provider [phone] Unavailable Primary Care Provider Unavailabl e Victoriano Chandler MD Unavailable Edgar Galloway Unavailable RUBIN Penaloza Primary Care Provider SADE Galloway Attending Provider MD Jun España Attending Provider Times, Yoselin Referring Provider Unavailable Unknown, Referring Provider Unavailable Unav ailable Unavailable Unavailable MD Jun España Attending Provider Times, Yoselin Referring Provider Unavailable MD Jun España Attending Provider Times, Yoselin Referring Provider Unavailable RUBIN Penalozafer Primary Care Provider MD Jun España Attending Provider Times, Yoselin Referring Provider Unavailable UNKNOWN, PCP Referring Unavailable UNKNOWN, PCP Primary Care Unavailable Dr. GRACY MCLAUGHLIN Attending Unavailable UNKNOWN, PCP Primary Care Unavailable Times, MD Yoselin Cloud Attending Unavailab JUJU Alonso Primary Care Physician [phone] Victoriano Chandler MD Unavailable Times Yoselin CARTER Unavailable Nahum Jones Attending Unavailable NONE, XXXX Referring Unavailable Richard CARTER, PhD, Mitra Unavailable Soltesz PharmD, Camron Unavailable [phone] Vinson b2b appointment setter, Naheed Unavailable Unavailable Vinson b2b appointment setter, Naheed Unavailable Unavailable Zevchek b2b appointment setter, Amber Unavailable Unavailabl e Giles b2b appointment setter, Gabby Unavailable [phone] Mery COMMISSIONED SALES ASSOCIATE-MONUMENT SETTER HELPER, Dana Unavailable [phone] Soltesz PharmD, Camron Unavailable [phone] Zevchek b2b appointment setter, Amber Unavailable Unavailabl e Giles b2b appointment setter, Gabby Unavailable [phone] Patria, Norleena R Attending Unavailable Patria Norleena R Admitting Unavailable Yobani Gonzales Referring Unavailable Lizbeth Penaloza Primary Care Unavailable PROVIDER, UNKNOWN Admitting Unavailable PROVIDER, UNKNOWN Attending Unavailable PROVIDER, UNKNOWN Attending Unavailable PROVIDER, UNKNOWN Admitting Unavailable PROVIDER, UNKNOWN Attending Unavailable BRELL, LARA Referring Unavailable PROVIDER, UNKNOWN Admitting Unavailable PROVIDER, UNKNOWN Admitting Unavailable OVE, MITRA Referring Unavailable PROVIDER, UNKNOWN Attending Unavailable PROVIDER, UNKNOWN Admitting Unavailable PROVIDER, UNKNOWN Attending Unavailable PROVIDER, UNKNOWN Attending Unavailable PROVIDER, UNKNOWN Admitting Unavailable PROVIDER, UNKNOWN Attending Unavailable PROVIDER, UNKNOWN Admitting Unavailable PROVIDER, UNKNOWN Attending Unavailable PROVIDER, UNKNOWN Admitting Unavailable TIMES, YOSELIN L. Referring Unavailable PROVIDER, UNKNOWN Attending Unavailable BRELL, LARA Referring Unavailable PROVIDER, UNKNOWN Admitting Unavailable PROVIDER, UNKNOWN Attending Unavailable PROVIDER, UNKNOWN Admitting Unavailable TIMES, YOSELIN L. Referring Unavailable PROVIDER, UNKNOWN Attending Unavailable PROVIDER, UNKNOWN Admitting Unavailable PROVIDER, UNKNOWN Attending Unavailable PROVIDER, UNKNOWN Admitting Unavailable PROVIDER, UNKNOWN Attending Unavailable PROVIDER, UNKNOWN Admitting Unavailable BRELL, LARA Referring Unavailable PROVIDER, UNKNOWN Attending Unavailable PROVIDER, UNKNOWN Admitting Unavailable TIMES, YOSELIN L. Referring Unavailable TIMES, YOSELIN L. Admitting Unavailable TIMES, YOSELIN L. Attending Unavailable PROVIDER, UNKNOWN Attending Unavailable PROVIDER, UNKNOWN Admitting Unavailable OVE, MITRA Referring Unavailable PROVIDER, UNKNOWN Attending Unavailable PROVIDER, UNKNOWN Admitting Unavailable OVE, MITRA Referring Unavailable BRELL, LARA Referring Unavailable PROVIDER, UNKNOWN Attending Unavailable BHUMI JAMESON Admitting Unavailable BRELL, LARA Referring Unavailable PROVIDER, UNKNOWN Attending Unavailable PROVIDER, UNKNOWN Admitting Unavailable PROVIDER, UNKNOWN Attending Unavailable BRELL, LARA Referring Unavailable PROVIDER, UNKNOWN Admitting Unavailable PROVIDER, UNKNOWN Admitting Unavailable PROVIDER, UNKNOWN Attending Unavailable PROVIDER, UNKNOWN Attending Unavailable PROVIDER, UNKNOWN Admitting Unavailable PROVIDER, UNKNOWN Admitting Unavailable PROVIDER, UNKNOWN Attending Unavailable PROVIDER, UNKNOWN Admitting Unavailable PROVIDER, UNKNOWN Attending Unavailable PROVIDER, UNKNOWN Admitting Unavailable PROVIDER, UNKNOWN Attending Unavailable PROVIDER, UNKNOWN Admitting Unavailable PROVIDER, UNKNOWN Attending Unavailable PROVIDER, UNKNOWN Admitting Unavailable PROVIDER, UNKNOWN Attending Unavailable PROVIDER, UNKNOWN Attending Unavailable PROVIDER, UNKNOWN Admitting Unavailable PROVIDER, UNKNOWN Attending Unavailable PROVIDER, UNKNOWN Admitting Unavailable PROVIDER, UNKNOWN Attending Unavailable PROVIDER, UNKNOWN Admitting Unavailable PROVIDER, UNKNOWN Attending Unavailable PROVIDER, UNKNOWN Admitting Unavailable PROVIDER, UNKNOWN Attending Unavailable PROVIDER, UNKNOWN Admitting Unavailable PROVIDER, UNKNOWN Attending Unavailable PROVIDER, UNKNOWN Admitting Unavailable PROVIDER, UNKNOWN Attending Unavailable PROVIDER, UNKNOWN Admitting Unavailable PROVIDER, UNKNOWN Attending Unavailable PROVIDER, UNKNOWN Admitting Unavailable PROVIDER, UNKNOWN Attending Unavailable PROVIDER, UNKNOWN Admitting Unavailable PROVIDER, UNKNOWN Attending Unavailable PROVIDER, UNKNOWN Admitting Unavailable TIMES, YOSELIN L. Referring Unavailable PROVIDER, UNKNOWN Attending Unavailable PROVIDER, UNKNOWN Admitting Unavailable PROVIDER, UNKNOWN Attending Unavailable PROVIDER, UNKNOWN Admitting Unavailable PROVIDER, UNKNOWN Attending Unavailable PROVIDER, UNKNOWN Admitting Unavailable PROVIDER, UNKNOWN Attending Unavailable PROVIDER, UNKNOWN Admitting Unavailable PROVIDER, UNKNOWN Attending Unavailable PROVIDER, UNKNOWN Admitting Unavailable PROVIDER, UNKNOWN Admitting Unavailable PROVIDER, UNKNOWN Attending Unavailable PROVIDER, UNKNOWN Attending Unavailable PROVIDER, UNKNOWN Admitting Unavailable TIMES, YOSELIN L. Referring Unavailable BRENEVIN, LARA Referring Unavailable PROVIDER, UNKNOWN Attending Unavailable PROVIDER, UNKNOWN Admitting Unavailable PROVIDER, UNKNOWN Admitting Unavailable PROVIDER, UNKNOWN Attending Unavailable PROVIDER, UNKNOWN Admitting Unavailable PROVIDER, UNKNOWN Attending Unavailable PROVIDER, UNKNOWN Admitting Unavailable PROVIDER, UNKNOWN Attending Unavailable PROVIDER, UNKNOWN Attending Unavailable PROVIDER, UNKNOWN Admitting Unavailable PROVIDER, UNKNOWN Attending Unavailable PROVIDER, UNKNOWN Admitting Unavailable BRELL, LARA Referring Unavailable PROVIDER, UNKNOWN Admitting Unavailable PROVIDER, UNKNOWN Attending Unavailable PROVIDER, UNKNOWN Attending Unavailable PROVIDER, UNKNOWN Admitting Unavailable PROVIDER, UNKNOWN Attending Unavailable PROVIDER, UNKNOWN Admitting Unavailable PROVIDER, UNKNOWN Attending Unavailable PROVIDER, UNKNOWN Admitting Unavailable PROVIDER, UNKNOWN Attending Unavailable PROVIDER, UNKNOWN Admitting Unavailable PROVIDER, UNKNOWN Attending Unavailable PROVIDER, UNKNOWN Admitting Unavailable PROVIDER, UNKNOWN Attending Unavailable PROVIDER, UNKNOWN Admitting Unavailable PROVIDER, UNKNOWN Attending Unavailable PROVIDER, UNKNOWN Admitting Unavailable PROVIDER, UNKNOWN Attending Unavailable PROVIDER, UNKNOWN Admitting Unavailable BRELL, LARA Referring Unavailable PROVIDER, UNKNOWN Attending Unavailable PROVIDER, UNKNOWN Admitting Unavailable PROVIDER, UNKNOWN Attending Unavailable PROVIDER, UNKNOWN Admitting Unavailable TIMES, YOSELIN L. Referring Unavailable BRELL, LARA Referring Unavailable JAMESON RENAE Admitting Unavailable JAMESON RENAE Attending Unavailable PROVIDER, UNKNOWN Attending Unavailable PROVIDER, UNKNOWN Admitting Unavailable ALLIE MATHEWS Attending Unavailable ALLIE MATHEWS Primary Care Unavailable CHEY INFANTE Attending Unavailable ALLIE MATHEWS Referring Unavailable ALLIE MATHEWS Primary Care Unavailable Times Yoselin CARTER Unavailable [phone] Mery AYANNADana Unavailable [phone] Unavailable Unavailable Unavailable Allergies Allergy Classification Reported Allergen(s) Allergy Type Date of Onset Reaction(s) Facility (1 source) No Known Medication Allergies; Translations: [No Known Medication Allergies] Propensity to adverse reactions (disorder) [facility] Repository (20 sources) Lactase; Translations: [LACTASE] [facility] Mold Extract Drug Allergy 5 [facility] (20 sources) Pollen; Translations: [POLLEN EXTRACT] Propensity to adverse reactions to drug [facility] HYDROmorphone; Translations: [HYDROMORPHONE] Drug Allergy 3 [facility] Mold; Translations: [MOLDS] Propensity to adverse reactions to drug (disorder) 5 [facility] Repository Medications Current Medications Medication Drug Class(es) Dates Sig (Normalized) Sig (Original) acetaminophen 325 mg / oxyCODONE hydrochloride 5 mg oral tablet (2 sources) Opioid Agonist Start: 07-19-2021 End: 07-19-2021 oxyCODONE-acetamin ophen (PERCOCET) 5-325 mg per tablet atropine sulfate 0.025 mg / diphenoxylate hydrochloride 2.5 mg oral tablet (3 sources) Anticholinergic, Cholinergic Muscarinic Antagonist, Antidiarrheal Start: 11-23-2022 End: 12-01-2022 take 1 tablet by mouth twice daily as needed for diarrhea diphenoxylate-atro pine (Lomotil) 2.5-0.025 MG per tablet Indications: Anal cancer (HCC) , Use of opiates for therapeutic purposes , Palliative care encounter , Cancer related pain , Palliative care by specialist , Neuropathic pain , Nausea and vomiting, unspecified vomiting type Take 1 Tablet by mouth 2 times daily as needed for Diarrhea for up to 7 days. 14 Tablet 0 11/23/2022 12/01/2022 Active benzonatate 100 mg oral capsule (20 sources) Non-narcotic Antitussive Start: 10-31-2022 take 1 capsule by mouth three times daily as needed benzonatate (Tessalon Perles) 100 MG capsule Indications: Viral upper respiratory tract infection Take 1 Capsule by mouth 3 times daily as needed. 60 Capsule 10/31/2022 Active busPIRone hydrochloride 5 mg oral tablet (20 sources) Start: 11-23-2022 End: 01-01-2023 take 1 tablet by mouth twice daily busPIRone (BUSPAR) 5 MG tablet TAKE 1 TABLET BY MOUTH TWICE A DAY 60 Tablet 01/01/2023 Active cetirizine hydrochloride 10 mg oral tablet (20 sources) Histamine-1 Receptor Antagonist Start: 10-26-2021 cetirizine (ZyrTEC) 10 MG tablet Cetirizine (Zyrtec) 10 mg Tablet Active 10 MG PO Daily October 26, 2021 12:00am 10/26/2021 Active ciprofloxacin 500 mg oral tablet (3 sources) Quinolone Antimicrobial Start: 11-02-2022 End: 11-07-2022 take 1 tablet by mouth twice daily ciprofloxacin (CIPRO) 500 MG tablet Take 1 Tablet by mouth 2 times daily for 5 days. 10 Tablet 0 11/02/2022 11/07/2022 Active 2 ml famotidine 10 mg/ml injection (20 sources) Histamine-2 Receptor Antagonist Start: 11-13-2022 Famotidine (PF) (PEPCID) 20 MG/2ML injection Start: 10-31-2022 take 20 mg by mouth once daily 20 mg, Oral, DAILY, First dose on Sun10/31/22 at 2100, Until Discontinued Start: 10-16-2022 End: 12-07-2022 take 1 tablet by mouth twice daily famotidine (Pepcid) 20 MG tablet Indications: Anal squamous cell carcinoma (HCC) , Heartburn Take 1 Tablet by mouth 2 times daily. 60 Tablet 3 10/16/2022 12/07/2022 Discontinued Start: 10-16-2022 Famotidine (PF ) (PEPCID) 20 MG/2ML injection 0.5 ml HYDROmorphone hydrochloride 1 mg/ml prefilled syringe (2 sources) Opioid Agonist Start: 2022 End: 11-03-2022 HYDROmorphone HCl PF (DILAUDID) 1 MG/ML injection Start: 07-19-2021 End: 07-20-2021 HYDROmorphone (DILAUDID) 1 m g/mL injection HYDROmorphone (DILAUDID) 0.2 MG/ML injection 0.2 mg (1 source) Start: 07-19-2021 End: 07-21-2021 HYDROmorphone (DILAUDID) 0.2 MG/ML injection 0.2 mg hydrOXYzine pamoate 25 mg oral capsule (20 sources) Antihistamine Start: 09-18-2023 End: 10-10-2023 take 1 capsule by mouth once daily at bedtime as needed hydrOXYzine pamoate (VISTARIL) 25 MG capsule TAKE 1 CAPSULE BY MOUTH EVERY DAY AT BEDTIME NEEDED 30 Capsule 10/10/2023 Active Start: 10-31-2022 hydrOXYzine (A TARAX) tablet Start: 06-09-2021 End: 01-31-2023 take 1 capsule by mouth at bedtime as needed hydrOXYzine pamoate (VISTARIL) 25 MG capsule Take 1 Capsule by mouth at bedtime as needed. 30 Capsule 0 01/01/2023 Active take 1 capsule by [facility] once daily as needed for anxiety Vistaril 25 MG 1 capsule as needed Orally every night as needed for anxiety/sleep for 20 day(s) Active ibuprofen 400 mg oral tablet (20 sources) Nonsteroidal Anti-inflammatory Drug ibuprofen (MOTRIN) 4 00 MG tablet 1 tablet with food or milk as needed 0 Active ibuprofen (Ibupr ofen 100 Gordon Strength) 100 MG chewable tablet Ibuprofen Active 0 Active Ibuprofen Active lidocaine 0.05 mg/mg topical ointment (20 sources) Antiarrhythmic, Amide Local Anesthetic Start: 11-15-2022 lidocaine (XYLOCAINE ) 5 % ointment Apply topically 3 times daily as needed. Apply thin layer to affected area. Mix equal parts of Lidocaine and Silvadene three times a day. 240 g 1 11/15/2022 Active Start: 08-28-2022 lidocaine (XYL OCAINE) 5 % ointment Apply a thick amount to affected area 2 times daily as needed. 30 g 1 08/28/2022 Active lidocaine 25 mg/ml / prilocaine 25 mg/ml topical cream (20 sources) Antiarrhythmic, Amide Local Anesthetic Start: 10-31-2022 lidocaine-prilocaine (E mLA) 2.5-2.5 % cream Start: 10-25-2022 lidocaine-pril ocaine (E mLA) 2.5-2.5 % cream Apply thin layer to affected area. 30 g 3 10/25/2022 Active loperamide hydrochloride 2 mg oral capsule (1 source) Opioid Agonist Start: 10-31-2022 loperamide (IM ODIUM) capsule loratadine 10 mg oral tablet (9 sources) loratadine (CLAR ITIN) 10 MG tablet 1 Tablet. 0 Active naloxone hydrochloride 40 mg/ml nasal spray (20 sources) Opioid Antagonist Start: 11-02-2022 naloxone 4 m g/0.1 mL nasal liquid Use 1 [place] in one nostril (alternate sides) as needed for Drug Overdose for up to 1 dose. Every 2-3 mins. until help arrives. 2 Each 1 11/02/2022 Active Start: 07-19-2021 naloxone (NARC AN) 0.4 MG/ML injection 24 hr nicotine 0.583 mg/hr transdermal system (1 source) Cholinergic Nicotinic Agonist Start: 2022 nicotine (NICODERM CQ) 14 mg/24HR patch Normal consistency supplement (2 sources) Start: 11-02-2022 Normal consist ency supplement Start: 2022 End: 2022 Normal consistency supplemen t ondansetron 4 mg disintegrating oral tablet (20 sources) Serotonin-3 Receptor Antagonist Start: 10-31-2022 ondansetron (ZOFRAN-ODT) disintegrating tablet Start: 10-11-2022 End: 02-06-2023 take 1 tablet by mouth every twelve hours as needed for nausea ondansetron (ZOFRAN-ODT) 8 MG disintegrating tablet Indications: Perianal mass Take 1 Tablet by mouth every 12 hours as needed for Nausea. 30 Tablet 3 10/11/2022 02/06/2023 Discontinued Start: 07-19-2021 End: 07-19-2021 ondansetron (ZOFRAN) 4 MG/2M L injection oxyCODONE hydrochloride 5 mg oral tablet (16 sources) Opioid Agonist Start: 11-23-2022 End: 12-08-2022 take 1 tablet by mouth every six hours as needed for pain oxyCODONE 5 MG immediate release tablet Indications: Anal cancer (HCC) , Use of opiates for therapeutic purposes , Palliative care encounter , Cancer related pain , Palliative care by specialist , Neuropathic pain , Nausea and vomiting, unspecified vomiting type Take 1 Tablet by mouth every 6 hours as needed for Pain for up to 7 days. 28 Tablet 0 12/01/2022 12/08/2022 Active Start: 11-13-2022 End: 11-20-2022 take 1 tablet by mouth every six hours as needed for pain oxyCODONE 5 MG immediate release tablet Indications: Anal cancer (HCC) , Cancer associated pain Take 1 Tablet by mouth every 6 hours as needed for Pain for up to 7 days. 28 Tablet 0 11/13/2022 11/20/2022 Active Start: 10-31-2022 End: 11-05-2022 take 2 tablets by mouth every four hours as needed oxyCODONE 5 MG immediate release tablet Indications: Anal squamous cell carcinoma (HCC) Take 2 Tablets by mouth every 4 hours as needed for up to 3 days. 36 Tablet 0 11/02/2022 11/05/2022 Active pantoprazole 20 mg delayed release oral tablet (12 sources) Proton Pump Inhibitor Start: 12-07-2022 take 1 tablet by mouth once daily pantoprazole (Protonix) 20 MG tablet Take 1 Tablet by mouth daily. 30 Tablet 12/07/2022 Active petrolatum 0.41 mg/mg topical ointment (1 source) Start: 2022 aquaphor ointment prochlorperazine 10 mg oral tablet (20 sources) Phenothiazine Start: 11-23-2022 End: 12-08-2022 take 1 tablet by mouth every six hours as needed for nausea prochlorperazine (COMPAZINE) 10 MG tablet Take 1 Tablet by mouth every 6 hours as needed for Nausea for up to 14 days. 56 Tablet 11/23/2022 Active sennosides, jail 8.6 mg oral tablet (20 sources) Start: 08-28-2022 take 1 tablet by mouth once daily as needed for constipation senna (SENOKOT) 8.6 MG tablet Take 1 Tablet by mouth daily as needed for Constipation. 30 Tablet 08/28/2022 Active sertraline 50 mg oral tablet (20 sources) Serotonin Reuptake Inhibitor Start: 10-31-2022 End: 01-01-2023 take 1 tablet by mouth once daily sertraline (ZOLOFT) 50 MG tablet TAKE 1 TABLET BY MOUTH EVERY DAY 30 Tablet 01/01/2023 Active Start: 12-02-2020 take 1 tablet by lory once daily Sertraline (Zoloft) 100 mg Tablet Active 100 MG PO Daily October 25, 2021 11:00pm silver sulfADIAZINE 10 mg/ml topical cream (20 sources) Sulfonamide Antibacterial Start: 11-08-2022 silver sulfadiazine (SILVADENE) 1 % cream Apply topically 2 times daily. Apply thin layer to affected area. Mix equal parts of Lidocaine and Silvadene 2-3 times a day 85 g 3 11/08/2022 Active traMADol hydrochloride 50 mg oral tablet (1 source) Opioid Agonist Start: 07-19-2021 End: 07-22-2021 take 1 tablet by mouth every eight hours as needed for pain tramadol (ULTRAM) 50 MG tablet Indications: Perianal mass Take 1 Tablet by mouth every 8 hours as needed for Pain for up to 3 days. 9 Tablet 0 07/19/2021 07/22/2021 Active Completed/Discontinued Medications Medication Drug Class(es) Dates Sig (Normalized) Sig (Original) acetaminophen 325 mg oral tablet (2 sources) Start: 2022 End: 2022 acetaminophen (TYLENOL) tablet Start: 08-28-2022 End: 09-07-2022 acetaminophen (TYLENOL) 500 MG tablet Take 2 Tablets by mouth every 8 hours as needed for Pain for up to 10 days. Do not take within 4 hours of other medications containing acetaminophen (Tylenol) 60 Tablet 0 08/28/2022 09/07/2022 Active [id number] 200 actuat albuterol 0.09 mg/actuat metered dose inhaler (20 sources) beta2-Adrenergic Agonist Start: 10-31-2022 take 2 puff(s) by inhalation every four hours as needed 2 Puff, Inhalation, EVERY 4 HOURS PRN, Starting on Sun10/31/22 at 2026, Until Discontinued, Wheezing Start: 10-31-2022 take 2 puff(s) by mo uth every four hours as needed for wheezing albuterol (PROVENTIL HFA) INHALATION HFA inhaler (VENTOLIN,PROAIR,PROVENTIL) 90mcg Indications: Viral upper respiratory tract infection Inhale 2 Puffs by mouth every 4 hours as needed for Wheezing. 8.5 g 10/31/2022 Active capecitabine 500 mg oral tablet (20 sources) Nucleoside Metabolic Inhibitor Start: 10-11-2022 End: 02-06-2023 take 3 tablets by mouth twice daily after mealtime capecitabine (XELODA) 500 MG tablet Indications: Perianal mass Take 3 tablets (1500 mg) by mouth in twice a day, 12 hours apart on each day radiotherapy is given, Sunday through Sunday. Doses should be taken with water within 30 minutes after a meal. Swallow tablets whole. Avoid cutting or crushing tablets.(825mg/m2/dose). 168 Tablet 0 10/11/2022 02/06/2023 Discontinued cefepime 2000 mg injection (1 source) Cephalosporin Antibacterial Start: 10-31-2022 2,000 mg, Intravenous, EVERY 12 HOURS ANTIBIOTIC, First dose on Sun10/31/22 at 2100, Until Discontinued docusate sodium 100 mg oral capsule (20 sources) Start: 08-28-2022 End: 11-23-2022 take 1 capsule by mouth twice daily docusate sodium (COLACE) 100 MG capsule Take 1 Capsule by mouth 2 times daily. 60 Capsule 3 08/28/2022 11/23/2022 Discontinued 1 ml heparin sodium, porcine 5000 unt/ml prefilled syringe (1 source) Unfractionated Heparin, Anti-coagulant Start: 07-19-2021 End: 07-19-2021 heparin (porcine) 5,000 units/mL injection Start: 07-19-2021 End: 07-19-2021 heparin (porcine) 5,000 unit s/mL injection iohexol (OMNIPAQUE) 300 MG/M L injection (3 sources) Start: 10-06-2022 End: 10-06-2022 iohexol (OMNIPAQUE) 300 MG/M L injection Start: 10-03-2022 End: 10-03-2022 iohexol (OMNIPAQUE) 300 MG/M L injection iohexol (OMNIPAQUE) 350 MG/ML injection (2 sources) Start: 10-03-2022 End: 10-03-2022 iohexol (OMNIPAQUE) 350 MG/ML injection 100 ml magnesium sulfate 40 mg/ml injection (1 source) Start: 10-31-2022 End: 2022 4,000 mg, Intravenous, ONCE, 1 dose, On Sun10/31/22 at 2100 mitomycin (MUTAMYCIN) 14 mg in 28 mL iv push (1 source) Start: 11-13-2022 End: 11-13-2022 mitomycin (MUTAMYCIN) 14 mg in 28 mL iv push mitomycin (MUTAMYCIN) 19 mg iv push (1 source) Start: 10-16-2022 End: 10-16-2022 mitomycin (MUTAMYCIN) 19 mg iv push naproxen 500 mg oral tablet (20 sources) Nonsteroidal Anti-inflammatory Drug Start: 09-29-2021 End: 11-23-2022 naproxen (NAPROSYN) 500 MG tablet Take by mouth every 12 hours. 0 09/29/2021 11/23/2022 Discontinued ondansetron 8mg / dexamethasone 10mg in NS 50 mL ivpb (Batched Premix) (2 sources) Start: 11-13-2022 End: 11-13-2022 ondansetron 8mg / dexamethasone 10mg in NS 50 mL ivpb (Batched Premix) Start: 10-16-2022 End: 10-16-2022 ondansetron 8mg / dexamethas one 10mg in NS 50 mL ivpb (Batched Premix) 50 ml sodium chloride 9 mg/m l injection (4 sources) Start: 12-07-2022 End: 12-07-2022 sodium chloride 0.9 % iv [place] [facility] Start: 11-13-2022 End: 11-13-2022 sodium chloride 0.9 % iv [place] [facility] Start: 07-19-2021 sodium chlorid e 0.9 % (PF) 0.9 % injection Start: 07-19-2021 sodium chlorid e 0.9 % iv infusion 7 actuat umeclidinium 0.0625 mg/actuat dry powder inhaler (1 source) Anticholinergic Start: 10-31-2022 take 1 puff(s) by inhalation once daily 1 Puff, Inhalation, DAILY RT, First dose on Sun10/31/22 at 2100, Until Discontinued 150 ml vancomycin 5 mg/ml injection (2 sources) Glycopeptide Antibacterial Start: 2022 End: 11-02-2022 vancomycin (VANCOCIN) 750 mg/150 mL iv soln (ROOM TEMP PREMIX) Start: 10-31-2022 End: 10-31-2022 vancomycin (VANCOCIN) 1,500 mg/300 mL (ROOM TEMP PREMIX) vancomycin lab draw (1 source) Start: 2022 End: 2022 vancomycin lab draw Problems Active Problems Problem Classification Problem Date Documented Da te Episodic/Chronic Anxiety disorders (20 sources) Generalized anxiety disorder; Translations: [Generalized anxiety disorder] Onset: 3 08-25-2022 Chronic Cancer of rectum and anus (20 sources) Malignant tumor of anus; Translations: [Malignant neoplasm of anus, unspecified] Onset: 2 Chronic Cancer; other and unspecified primary (1 source) Carcinoma in situ, unspecified; Translations: [Carcinoma in situ, unspecified] Onset: 3 Chronic Complications of surgical procedures or medical care (1 source) Anemia due to antineoplastic chemotherapy; Translations: [Anemia due to antineoplastic chemotherapy] Onset: 4 Chronic Diverticulosis and diverticulitis (20 sources) Diverticulitis of large intestine; Translations: [Diverticulitis of large intestine with perforation and abscess without bleeding] Onset: 7 08-25-2022 Chronic E Codes: Adverse effects of medical drugs (1 source) Adverse effect of antineoplastic and immunosuppressive drugs, initial encounter; Translations: [Adverse effect of antineoplastic and immunosuppressive drugs, initial encounter] Onset: 4 Episodic Genitourinary symptoms and ill-defined conditions (3 sources) Dysuria; Translations: [Dysuria] Onset: 2 Resolved: 2 Episodic Maintenance chemotherapy; radiotherapy (1 source) Patient encounter status; Translations: [Encounter for antineoplastic chemotherapy] 10-16-2022 Chronic Mood disorders (2 sources) Recurrent major depressive episodes, mild ; Translations: [Major depressive disorder, recurrent, mild] Chronic Nutritional deficiencies (20 sources) Vitamin D deficiency; Translations: [Vitamin D deficiency, unspecified] Onset: 2 08-25-2022 Chronic Osteoarthritis (2 sources) Osteoarthritis of multiple joints ; Translations: [Polyosteoarthritis, unspecified] Chronic Other aftercare (3 sources) Under care of palliative care physician; Translations: [Encounter for palliative care] 10-19-2022 Episodic Other aftercare (2 sources) High risk drug monitoring status; Translations: [snf (current) use of opiate analgesic] 11-23-2022 Episodic Other connective tissue disease (2 sources) Neuropathic pain; Translations: [Neuralgia and neuritis, unspecified] 11-23-2022 Episodic Other gastrointestinal disorders (1 source) Heartburn; Translations: [Heartburn] 10-16-2022 Episodic Other hematologic conditions (2 sources) Macrocytosis; Translations: [Other specified diseases of blood and blood-forming organs] Chronic Other nervous system disorders (3 sources) Pain due to neoplastic disease; Translations: [Neoplasm related pain (acute) (chronic)] 10-19-2022 Chronic Other nervous system disorders (1 source) Neoplasm related pain (acute) (chronic); Translations: [Neoplasm related pain (acute) (chronic)] Onset: Chronic Other nutritional; endocrine; and metabolic disorders (3 sources) Decreased body mass index; Translations: [Body mass index (BMI) 19.9 or less, adult] 12-07-2022 Episodic Other screening for suspected conditions (not mental disorders or infectious disease) (3 sources) Electrocardiogram abnormal; Translations: [Abnormal electrocardiogram [ECG] [EKG]] Episodic Other skin disorders (2 sources) Disorder of perianal skin; Translations: [Disorder of the skin and subcutaneous tissue, unspecified] Episodic Other upper respiratory disease (20 sources) Seasonal allergy; Translations: [Other seasonal allergic rhinitis] Onset: 3 08-25-2022 Chronic Residual codes; unclassified (4 sources) Body mass index 20-24 - normal; Translations: [Body mass index (BMI) 20.0-20.9, adult] Episodic Substance-related disorders (20 sources) Heavy tobacco smoker; Translations: [Nicotine dependence, cigarettes, uncomplicated] Onset: 7 08-25-2022 Chronic Thyroid disorders (4 sources) Multinodular goiter; Translations: [Nontoxic multinodular goiter] Chronic Unclassified (3 sources) NO SHOW 12-20-2022 Unclassified (1 source) new patient Onset: 4 Past or Other Problems Problem Classification Problem Date Documented Da te Episodic/Chronic Administrative/social admission (14 sources) Patient encounter status; Translations: [Other specified counseling] Onset: 3 10-26-2021 Episodic Anal and rectal conditions (20 sources) Perianal lump; Translations: [Other specified diseases of anus and rectum] Onset: 2 Episodic Diseases of white blood cells (20 sources) Febrile neutropenia; Translations: [Neutropenia, unspecified] Onset: 3 Resolved: 3 2022 Chronic Fever of unknown origin (2 sources) Fever; Translations: [Fever, unspecified] Onset: 3 10-31-2022 Episodic Fluid and electrolyte disorders (1 source) Dehydration; Translations: [Dehydration] Onset: 3 Episodic Fracture of upper limb (1 source) Displaced fracture of shaft of fifth metacarpal bone, left hand, initial encounter for closed fracture Onset: 2 Resolved: 2 Episodic Nausea and vomiting (4 sources) Nausea and vomiting; Translations: [Nausea with vomiting, unspecified] Onset: 3 11-23-2022 Episodic Other aftercare (1 source) 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; Translations: [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] Onset: 3 Episodic Other aftercare (1 source) Encounter for palliative care; Translations: [Encounter for palliative care] Onset: 3 Episodic Other connective tissue disease (1 source) Neuralgia and neuritis, unspecified; Translations: [Neuralgia and neuritis, unspecified] Onset: 3 Episodic Other gastrointestinal disorders (1 source) Diarrhea, unspecified; Translations: [Diarrhea, unspecified] Onset: 3 Episodic Other gastrointestinal disorders (1 source) Heartburn; Translations: [Heartburn] Onset: 3 Episodic Other injuries and conditions due to external causes (1 source) Injury, unspecified, initial encounter Onset: 2 Resolved: 2 Episodic Other non-epithelial cancer of skin (14 sources) Malignant neoplasm of gastrointestinal tract; 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] Onset: 3 Episodic Other nutritional; endocrine; and metabolic disorders (1 source) Body mass index (BMI) 19.9 or less, adult; Translations: [Body mass index (BMI) 19.9 or less, adult] Onset: 3 Episodic Other upper respiratory infections (1 source) Acute upper respiratory infection, unspecified; Translations: [Acute upper respiratory infection, unspecified] Onset: 3 Episodic Results Test Name Value Interpretation Reference Range Facil ity Progress Noteson 02-08-2023 Secretary Of Police Authentication Interface Message Text Normal [email or web address] Telephone Encounteron 2022 Secretary Of Police Authentication Interface Message Text Normal [facility] [email or web address] Authentication Interface Message Text Dr Ellis returning providers call requesting a call back. Can be reached at [phone]. Normal [facility] [email or web address] Telephone Encounteron 2022 Secretary Of Police Authentication Interface Message Text Dr. Darcy Ellis with [facility] calling requesting a return call regarding mutual patient. Patient is currently inpatient at [place] and Dr. Ellis would like to update Dr. Smith. Can be reached at [phone]. Thank you. Normal [email or web address] Progress Noteson 01-11-2023 Secretary Of Police Authentication Interface Message Text Pt scheduled for video visit. Not logged in x20 minutes. Pt called x2. Voicemail x2. Phone number left to call and reschedule. This encounter was opened in error. Patient was a No-Show. Please disregard. Normal [email or web address] Telephone Encounteron 2022 Secretary Of Police Authentication Interface Message Text Normal [facility] [email or web address] Authentication Interface Message Text Normal [email or web address] Progress Noteson 12-29-2022 Secretary Of Police Authentication Interface Message Text This encounter was opened in error. Patient was a No-Show. Please disregard. Called patient x2. No answer, unable to leave VM as VM box is full. Normal [email or web address] Telephone Encounteron 2022 Secretary Of Police Authentication Interface Message Text Normal [email or web address] Progress Noteson 12-19-2022 Secretary Of Police Authentication Interface Message Text Pt called x2. Voicemail left x2. This encounter was opened in error. Patient was a No-Show. Please disregard. Normal [facility] Progress Noteson 12-07-2022 Secretary Of Police Authentication Interface Message Text Normal [facility] Secretary Of Police Authentication Interface Message Text Normal [facility] Secretary Of Police Authentication Interface Message Text Normal [facility] Secretary Of Police Authentication Interface Message Text Normal [facility] Secretary Of Police Authentication Interface Message Text Normal [facility] Progress Noteson 12-04-2022 Secretary Of Police Authentication Interface Message Text Normal [facility] Telephone Encounteron 2022 Secretary [employer] Authentication Interface Message Text Spoke to pt, advised sertraline rx was sent to [facility] in [place], buspirone sent to [facility]. She requests buspirone be sent to her [facility], med pended to provider. Normal [facility] Secretary Of [employer] Authentication Interface Message Text Normal [facility] Progress Noteson 12-01-2022 Secretary Of Police Authentication Interface Message Text Normal [facility] Progress Noteson 11-29-2022 Secretary Of Police Authentication Interface Message Text Normal [facility] No Panel Informationon 11-27 Course Elapsed Days 42 [facility] Course First Treatment Date 10/16/2022 1:03 PM [facility] ID 1 [facility] Intent Unknown [facility] Last Treatment Date 11/27/2022 3:37 PM [facility] Course Start Date 10/03/2022 1:11 PM [facility] Plan Fractions Treated to Date 12 [facility] Plan Fractions Treated Today 28 [facility] Plan ID Pelvis Anus:1 [facility] Plan Prescribed Dose Per Fraction 1.8 Gy [facility] Primary Reference Point Anus [facility] Total Fractions Prescribed 14 [facility] Plan Total Prescribed Dose 2520 cGy [facility] Reference Point Dosage Given to Date 50.4 Gy [facility] Reference Point ID Anus ro ealth Reference Point Session Dosage [facility] PAIN MANAGEMENT PANELon 11-07 ALCOHOL-CLINICAL EDUCATION ASSISTANT Negative Normal Cutoff: 10 [facility] Comment on above: Order Comment: Scree n results are reported as positive (at or above the cutoff) or negative (below the cutoff).The LC-MS/MS testing (if applicable) was developed and its performance characteristics determined by [facility] in a manner consistent with CLIA requirements. This test has not been cleared or approved by the U.S. Food and Drug Administration; however, the FDA has determined that such clearance or approval is not necessary. Performed By: #### P MP ####S PATHOLOGY [id number] [place], [place], AMPHETAMINE Negative Normal Cutoff:1000 [facility] Comment on above: Order Comment: Scree n results are reported as positive (at or above the cutoff) or negative (below the cutoff).The LC-MS/MS testing (if applicable) was developed and its performance characteristics determined by [facility] in a manner consistent with CLIA requirements. This test has not been cleared or approved by the U.S. Food and Drug Administration; however, the FDA has determined that such clearance or approval is not necessary. Performed By: #### P MP ####S PATHOLOGY [id number] [place], [place], Benzodiazepines Ql (U) Negative Normal Cutoff: 200 [facility] Comment on above: Order Comment: Scree n results are reported as positive (at or above the cutoff) or negative (below the cutoff).The LC-MS/MS testing (if applicable) was developed and its performance characteristics determined by [facility] in a manner consistent with CLIA requirements. This test has not been cleared or approved by the U.S. Food and Drug Administration; however, the FDA has determined that such clearance or approval is not necessary. Performed By: #### P MP ####S PATHOLOGY [id number] [place], [place], COCAINE METABOLITE Negative Normal Cutoff: 300 [facility] Comment on above: Order Comment: Scree n results are reported as positive (at or above the cutoff) or negative (below the cutoff).The LC-MS/MS testing (if applicable) was developed and its performance characteristics determined by [facility] in a manner consistent with CLIA requirements. This test has not been cleared or approved by the U.S. Food and Drug Administration; however, the FDA has determined that such clearance or approval is not necessary. Performed By: #### P MP ####[facility] [id number] [place], [place], CREATININE, URINE 173 mg/dL Normal 10-300 [facility] Comment on above: Order Comment: Scree n results are reported as positive (at or above the cutoff) or negative (below the cutoff).The LC-MS/MS testing (if applicable) was developed and its performance characteristics determined by [facility] in a manner consistent with CLIA requirements. This test has not been cleared or approved by the U.S. Food and Drug Administration; however, the FDA has determined that such clearance or approval is not necessary. Performed By: #### P MP ####S PATHOLOGY [id number] [place], [place], FENTANYL Negative Normal Cutoff: 1 [facility] Comment on above: Order Comment: Scree n results are reported as positive (at or above the cutoff) or negative (below the cutoff).The LC-MS/MS testing (if applicable) was developed and its performance characteristics determined by [facility] in a manner consistent with CLIA requirements. This test has not been cleared or approved by the U.S. Food and Drug Administration; however, the FDA has determined that such clearance or approval is not necessary. Performed By: #### P MP ####S PATHOLOGY [id number] [place], [place], Methadone Ql (U) Negative Normal Cutoff: 300 [facility] Comment on above: Order Comment: Scree n results are reported as positive (at or above the cutoff) or negative (below the cutoff).The LC-MS/MS testing (if applicable) was developed and its performance characteristics determined by [facility] in a manner consistent with CLIA requirements. This test has not been cleared or approved by the U.S. Food and Drug Administration; however, the FDA has determined that such clearance or approval is not necessary. Performed By: #### P MP ####S PATHOLOGY [id number] [place], [place], NORBUPRENORPHINE Negative Normal Cutoff: 5 [facility] Comment on above: Order Comment: Scree n results are reported as positive (at or above the cutoff) or negative (below the cutoff).The LC-MS/MS testing (if applicable) was developed and its performance characteristics determined by [facility] in a manner consistent with CLIA requirements. This test has not been cleared or approved by the U.S. Food and Drug Administration; however, the FDA has determined that such clearance or approval is not necessary. Performed By: #### P MP ####S PATHOLOGY [id number] [place], [place], OPIATE Negative Normal Cutoff: 300 [facility] Comment on above: Order Comment: Scree n results are reported as positive (at or above the cutoff) or negative (below the cutoff).The LC-MS/MS testing (if applicable) was developed and its performance characteristics determined by The [facility] in a manner consistent with CLIA requirements. This test has not been cleared or approved by the U.S. Food and Drug Administration; however, the FDA has determined that such clearance or approval is not necessary. Result Comment: This test may exhibit a false positive result due to the interaction of the reagents with some naturally occurring substances and drugs. Performed By: #### P MP ####[facility] PATHOLOGY [id number] [place], [place], OXYCODONE Positive Abnormal Cutoff: 100 [facility] Comment on above: Order Comment: Scree n results are reported as positive (at or above the cutoff) or negative (below the cutoff).The LC-MS/MS testing (if applicable) was developed and its performance characteristics determined by The [facility] in a manner consistent with CLIA requirements. This test has not been cleared or approved by the U.S. Food and Drug Administration; however, the FDA has determined that such clearance or approval is not necessary. Result Comment: Oxyc odone and metabolites of Oxycodone (Oxymorphone, Noroxycodone, and Noroxymorphone) are measured/detected in this assay method. Performed By: #### P MP ####[facility] PATHOLOGY [id number] [place], [place], OXYCODONE CONFIRMATION Positive Abnormal Cutoff: 100 [facility] Comment on above: Order Comment: Scree n results are reported as positive (at or above the cutoff) or negative (below the cutoff).The LC-MS/MS testing (if applicable) was developed and its performance characteristics determined by The [facility] in a manner consistent with CLIA requirements. This test has not been cleared or approved by the U.S. Food and Drug Administration; however, the FDA has determined that such clearance or approval is not necessary. Performed By: #### P MP ####[facility] PATHOLOGY [id number] [place], [place], OXYMORPHONE CONFIRMATION Positive Abnormal Cutoff: 100 [facility] Comment on above: Order Comment: Scree n results are reported as positive (at or above the cutoff) or negative (below the cutoff).The LC-MS/MS testing (if applicable) was developed and its performance characteristics determined by The [facility] in a manner consistent with CLIA requirements. This test has not been cleared or approved by the U.S. Food and Drug Administration; however, the FDA has determined that such clearance or approval is not necessary. Performed By: #### P MP ####[facility] PATHOLOGY [id number] [place], [place], THC Positive Abnormal Cutoff: 50 [facility] Comment on above: Order Comment: Scree n results are reported as positive (at or above the cutoff) or negative (below the cutoff).The LC-MS/MS testing (if applicable) was developed and its performance characteristics determined by The [facility] in a manner consistent with CLIA requirements. This test has not been cleared or approved by the U.S. Food and Drug Administration; however, the FDA has determined that such clearance or approval is not necessary. Performed By: #### P MP ####[facility] PATHOLOGY [id number] [place], [place], THC CONFIRMATION Positive Abnormal Cutoff: 15 [facility] Comment on above: Order Comment: Scree n results are reported as positive (at or above the cutoff) or negative (below the cutoff).The LC-MS/MS testing (if applicable) was developed and its performance characteristics determined by The [facility] in a manner consistent with CLIA requirements. This test has not been cleared or approved by the U.S. Food and Drug Administration; however, the FDA has determined that such clearance or approval is not necessary. Result Comment: The drug analyte detected in this assay, 47-lhp-Cthfuen-delta 9-THC, is a metabolite of ahfax-7-jvqnpaqrwojmlbgdgirp (THC). Detection of 83-tpc-Hiyoqww-delta 9-THC suggests use of, or exposure to, a product containing THC. This test cannot distinguish between prescribed or non-prescribed forms of THC, nor can it distinguish between active or passive use. The 05-mnj-Xokehbu-delta 9-THC metabolite may be detected in urine for several weeks. Performed By: #### P MP ####[facility] [id number] [place], [place], Patient Instructionson 11-23 Secretary Of Police Authentication Interface Message Text Normal [facility] Progress Noteson 11-23-2022 Secretary Of Police Authentication Interface Message Text Normal [facility] Progress Noteson 11-20-2022 Secretary Of Police Authentication Interface Message Text Normal [facility] Secretary Of [employer] Authentication Interface Message Text Patient was identified by name and date of . Marek Bonilla Body Mass Index is 19.76. Body Surface Area is 1.86 square meters according to the formula of Maggy and Maggy. Patient at risk for falls:No Falls Risk protocol implemented: No Normal [facility] BASIC METABOLIC PANELon 08-0 Anion gap [Moles/Vol] 13 mmol/L Normal 10-20 [facility] Comment on above: Performed By: #### C H8, HEPATIC, MG ####[facility] [id number] [place], [place], Calcium [Mass/Vol] 9.2 mg/dL Normal 8.4-10.4 [facility] Comment on above: Performed By: #### C H8, HEPATIC, MG ####[facility] [id number] [place], [place], Chloride [Moles/Vol] 105 mmol/L Normal 97-111 [facility] Comment on above: Performed By: #### C H8, HEPATIC, MG ####[facility] [id number] [place], [place], CO2 [Moles/Vol] 24 mmol/L Normal 21-30 [facility] Comment on above: Performed By: #### C H8, HEPATIC, MG ####[facility] [id number] [place], [place], Creatinine [Mass/Vol] 1.12 mg/dL High 0.50-1.10 [facility] Comment on above: Performed By: #### C H8, HEPATIC, MG ####[facility] [id number] [place], [place], ESTIMATED GFR (CKD-EPI) 55 mL/min/1.73sqm Low >=60 [facility] Comment on above: Result Comment: 2020 CKD EPI Equation using Creatinine without RaceComment: Estimated glomerular filtration rate (eGFR) is calculated without a race coefficient. Values should be interpreted in the context of the patient's full clinical presentation.Reference:1. Sanford C, Bijan M, Jazmyne TAVERA, et al.. A Unifying Approach for GFR Estimation: Recommendations of the NKF-ASN Task Force on Reassessing the Inclusion of Race in Diagnosing Kidney Disease. [place] Journal of Kidney Diseases 2021;79(2):268-88.e1.2. N Engl J Med 2020 Vol. 385 Issue 19 Pages 4305-3258 Performed By: #### C H8, HEPATIC, MG ####[facility] [id number] [place], [place], Glucose [Mass/Vol] 98 mg/dL Normal 80-116 [facility] Comment on above: Performed By: #### C H8, HEPATIC, MG ####[facility] [id number] [place], [place], Potassium [Moles/Vol] 3.8 mmol/L Normal 3.3-5.3 [facility] Comment on above: Performed By: #### C H8, HEPATIC, MG ####[facility] [id number] [place], [place], Sodium [Moles/Vol] 138 mmol/L Normal 135-148 [facility] Comment on above: Performed By: #### C H8, HEPATIC, MG ####[facility] [id number] [place], [place], Urea nitrogen [Mass/Vol] 14 mg/dL Normal 8-22 [facility] Comment on above: Performed By: #### C H8, HEPATIC, MG ####[facility] [id number] [place], [id number] Basic metabolic 2000 panelon 11-13-2022 Anion gap [Moles/Vol] 13 mmol/L 10 - 20 [facility] Calcium [Mass/Vol] 9.2 mg/dL 8.4 - 10.4 mg/dL [facility] Chloride [Moles/Vol] 105 mmol/L 97 - 111 mmol/L [facility] CO2 [Moles/Vol] 24 mmol/L 21 - 30 mmol/L [facility] Creatinine [Mass/Vol] 1.12 mg/dL High 0.50 - 1.10 mg/dL [facility] GFR/1.73 sq M.predicted MDRD (S/P/Bld) [Vol rate/Area] 55 mL/min/{1.73_m2} Low - PINF [facility] Comment on above: 2020 CKD EPI Equatio n using Creatinine without Race Comment: Estimated glomerular filtration rate (eGFR) is calculated without a race coefficient. Values should be interpreted in the context of the patient's full clinical presentation. Reference: 1. Sanford C, Bakati M, Jazmyne DC, et al.. A Unifying Approach for GFR Estimation: Recommendations of the NKF-ASN Task Force on Reassessing the Inclusion of Race in Diagnosing Kidney Disease. [place] Journal of Kidney Diseases 202;79(2):268-88.e1. 2. N Engl J Med 2020 Vol. 385 Issue 19 Pages 3137-8571 Glucose [Mass/Vol] 98 mg/dL 80 - 116 mg/dL [facility] Interpretation and review of laboratory results Abnormal [facility] Potassium [Moles/Vol] 3.8 mmol/L 3.3 - 5.3 mmol /L [facility] Sodium [Moles/Vol] 138 mmol/L 135 - 148 mmol/L [facility] Urea nitrogen [Mass/Vol] 14 mg/dL 8 - 22 mg/dL [facility] CBC WITH DIFFERENTIALon Basophils (Bld) [#/Vol] 0.04 10*3/uL Normal 0.00-0.20 [facility] Comment on above: Performed By: #### C BCDSAT ####[facility] [id number] [place], [place], Basophils/100 WBC (Bld) 1.0 % Normal <=1.9 [facility] Comment on above: Performed By: #### C BCDSAT ####[facility] PATHOLOGY [id number] [place], [place], Eosinophils (Bld) [#/Vol] 0.13 10*3/uL Normal 0.00-0.70 [facility] Comment on above: Performed By: #### C BCDSAT ####[facility] PATHOLOGY [id number] [place], [place], Eosinophils/100 WBC (Bld) 3.2 % Normal 0.1-4.0 [facility] Comment on above: Performed By: #### C BCDSAT ####[facility] PATHOLOGY [id number] [place] [address], Erythrocyte distribution width (RBC) [Ratio] 13.9 % Normal 11.5-14.5 [facility] Comment on above: Performed By: #### C BCDSAT ####[facility] PATHOLOGY [id number] [place], [place], Hematocrit (Bld) [Volume fraction] 32.8 % Low 36.0-46.0 [facility] Comment on above: Performed By: #### C BCDSAT ####[facility] PATHOLOGY [id number] [place], [place], Hemoglobin (Bld) [Mass/Vol] 11.2 g/dL Low 12.0-15.0 [facility] [place] [facility] Comment on above: Performed By: #### C BCDSAT ####[facility] PATHOLOGY [id number] [place], [place], Lymphocytes (Bld) [#/Vol] 0.32 10*3/uL Low 1.00-4.80 [facility] [place] [facility] Comment on above: Performed By: #### C BCDSAT ####[facility] PATHOLOGY [id number] [place], [place], Lymphocytes/100 WBC (Bld) 7.8 % Low 24.0-44.0 The [facility] Comment on above: Performed By: #### C BCDSAT ####[facility] PATHOLOGY [id number] [place], [place], MCH (RBC) [Entitic mass] 35.4 pg High 26.0-34.0 The [facility] Comment on above: Performed By: #### C BCDSAT ####[facility] PATHOLOGY [id number] [place], MCHC (RBC) [Mass/Vol] 34.2 g/dL Normal 32.0-35.9 [facility] Comment on above: Performed By: #### C BCDSAT ####[facility] PATHOLOGY [id number] [place], MCV (RBC) [Entitic vol] 104 fL High 80-100 The [facility] Comment on above: Performed By: #### C BCDSAT ####[facility] PATHOLOGY [id number] [place], MONOCYTE DISTRIBUTION WIDTH Normal The [facility] Comment on above: Performed By: #### C BCDSAT ####[facility] PATHOLOGY [id number] [place], Monocytes (Bld) [#/Vol] 0.49 10*3/uL Normal 0.20-1.00 The [facility] Comment on above: Performed By: #### C BCDSAT ####[facility] PATHOLOGY [id number] [place], Monocytes/100 WBC (Bld) 12.1 % High 2.0-11.0 The [facility] Comment on above: Performed By: #### C BCDSAT ####[facility] PATHOLOGY [id number] [place], Neutrophils (Bld) [#/Vol] 3.10 10*3/uL Normal 1.50-8.00 The [facility] Comment on above: Performed By: #### C BCDSAT ####[facility] PATHOLOGY [id number] [place], Neutrophils/100 WBC (Bld) 76.0 % Normal 31.0-76.0 [facility] Comment on above: Performed By: #### C BCDSAT ####[facility] PATHOLOGY [id number] [place], Platelet mean volume (Bld) [Entitic vol] 8.1 fL Normal 7.5-11.2 The [facility] Comment on above: Performed By: #### C BCDSAT ####[facility] PATHOLOGY [id number] [place], Platelets (Bld) [#/Vol] 182 10*3/uL Normal 150-400 [facility] [place] [facility] Comment on above: Performed By: #### C BCDSAT ####[facility] PATHOLOGY [id number] [place], RBC (Bld) [#/Vol] 3.17 10*6/uL Low 4.00-5.20 The [facility] Comment on above: Performed By: #### C BCDSAT ####[facility] PATHOLOGY [id number] [place], WBC (Bld) [#/Vol] 4.1 10*3/uL Low 4.5-11.5 The [facility] Comment on above: Performed By: #### C BCDSAT ####[facility] PATHOLOGY [id number] [place], Basophils (Bld) [#/Vol] 0.04 10*3/uL 0.00 - 0.20 K/uL [facility] Basophils/100 WBC (Bld) 1.0 % NINF - 1.9 % [facility] Eosinophils (Bld) [#/Vol] 0.13 10*3/uL 0.00 - 0.70 K/uL [facility] Eosinophils/100 WBC (Bld) 3.2 % 0.1 - 4.0 % [facility] Erythrocyte distribution width (RBC) [Ratio] 13.9 % 11.5 - 14.5 % [facility] Hematocrit (Bld) [Volume fraction] 32.8 % Low 36.0 - 46.0 % [facility] Hemoglobin (Bld) [Mass/Vol] 11.2 g/dL Low 12.0 - 15.0 g/dL [facility] Interpretation and review of laboratory results Abnormal [facility] Lymphocytes (Bld) [#/Vol] 0.32 10*3/uL Low 1.00 - 4.80 K/uL [facility] Lymphocytes/100 WBC (Bld) 7.8 % Low 24.0 - 44.0 % [facility] MCH (RBC) [Entitic mass] 35.4 pg High 26.0 - 34.0 pg [facility] MCHC (RBC) [Mass/Vol] 34.2 g/dL 32.0 - 35.9 g/ dL [facility] MCV (RBC) [Entitic vol] 104 fL High 80 - 100 fL [facility] Monocyte distribution width Auto (Bld) [Entitic vol] [facility] Monocytes (Bld) [#/Vol] 0.49 10*3/uL 0.20 - 1.00 K/uL [facility] Monocytes/100 WBC (Bld) 12.1 % High 2.0 - 11.0 % [facility] Neutrophils (Bld) [#/Vol] 3.10 10*3/uL 1.50 - 8.00 K/uL [facility] Neutrophils/100 WBC (Bld) 76.0 % 31.0 - 76.0 % [facility] Platelet mean volume (Bld) [Entitic vol] 8.1 fL 7.5 - 11.2 fL [facility] Platelets (Bld) [#/Vol] 182 10*3/uL 150 - 400 K/uL [facility] RBC (Bld) [#/Vol] 3.17 10*6/uL Low [facility] WBC (Bld) [#/Vol] 4.1 10*3/uL Low 4.5 - 11.5 K/uL [facility] HEPATIC FUNCTION PANELon Albumin [Mass/Vol] 3.8 g/dL Normal 3.4-5.1 The [facility] Comment on above: Performed By: #### C H8, HEPATIC, MG ####[facility] [id number] [place] [address], ALK 116 IU/L Normal 40-200 The [facility] Comment on above: Performed By: #### C H8, HEPATIC, MG ####[facility] [id number] [place], ALT [Catalytic activity/Vol] 7 U/L Normal 7-40 The [facility] Comment on above: Performed By: #### Antoinette Gayle, HEPATIC, MG ####S PATHOLOGY [id number] [place], AST [Catalytic activity/Vol] 12 U/L Normal 7-40 The [facility] Comment on above: Performed By: #### Antoinette Gayle, HEPATIC, MG ####S PATHOLOGY [id number] [place], Bilirubin [Mass/Vol] 0.7 mg/dL Normal 0.1-1.5 The [facility] Comment on above: Performed By: #### Antoinette Gayle, HEPATIC, MG ####S PATHOLOGY [id number] [place], Bilirubin.direct [Mass/Vol] 0.12 mg/dL Normal 0.10-0.30 The [facility] Comment on above: Performed By: #### Antoinette Gayle, HEPATIC, MG ####S PATHOLOGY [id number] [place], Protein [Mass/Vol] 6.6 g/dL Normal 5.7-8.1 [facility] Comment on above: Performed By: #### Antoinette Gayle, HEPATIC, MG ####S PATHOLOGY [id number] [place], Albumin [Mass/Vol] 3.8 g/dL 3.4 - 5.1 g/dL [facility] ALP [Catalytic activity/Vol] 116 U/L [facility] ALT [Catalytic activity/Vol] 7 U/L [facility] AST [Catalytic activity/Vol] 12 U/L [facility] Bilirubin [Mass/Vol] 0.7 mg/dL 0.1 - 1.5 mg/dL [facility] Bilirubin.direct [Mass/Vol] 0.12 mg/dL 0.10 - 0.30 mg/dL [facility] Protein [Mass/Vol] 6.6 g/dL 5.7 - 8.1 g/dL [facility] MAGNESIUMon 11-13-2022 Magnesium [Mass/Vol] 1.8 mg/dL Normal 1.6-2.8 The [facility] Comment on above: Performed By: #### Antoinette Gayle, HEPATIC, MG ####[facility] [id number] [place], Magnesium [Mass/Vol] 1.8 mg/dL 1.6 - 2.8 mg/dL [facility] No Panel Informationon 11-13 Interpretation and review of laboratory results Normal [facility] Patient Instructionson 11-13 Secretary Of Police Authentication Interface Message Text Please start taking xeloda 1,000 MG twice daily (decrease from 1,500 mg twice daily) Normal [facility] Progress Noteson 11-13-2022 Secretary Of Police Authentication Interface Message Text Normal The [facility] Secretary Of Police Authentication Interface Message Text Normal The [facility] Secretary Of Police Authentication Interface Message Text Normal The [facility] BASIC METABOLIC PANELon 10-09 Anion gap [Moles/Vol] 12 mmol/L Normal 10-20 The [facility] Comment on above: Performed By: #### MG DAVID, CH8 ####[facility] [id number] [place], Calcium [Mass/Vol] 8.8 mg/dL Normal 8.4-10.4 The [facility] Comment on above: Performed By: #### MG DAVID, CH8 ####[facility] [id number] [place], Chloride [Moles/Vol] 103 mmol/L Normal 97-111 The [facility] Comment on above: Performed By: #### MG DAVID, CH8 ####[facility] [id number] [place], CO2 [Moles/Vol] 24 mmol/L Normal 21-30 The [facility] Comment on above: Performed By: #### MG DAVID, CH8 ####[facility] [id number] [place], Creatinine [Mass/Vol] 1.20 mg/dL High 0.50-1.10 The [facility] Comment on above: Performed By: #### MG DAVID, CH8 ####[facility] [id number] [place], ESTIMATED GFR (CKD-EPI) 51 mL/min/1.73sqm Low >=60 [facility] [place] [facility] Comment on above: Result Comment: 2020 CKD EPI Equation using Creatinine without RaceComment: Estimated glomerular filtration rate (eGFR) is calculated without a race coefficient. Values should be interpreted in the context of the patient's full clinical presentation.Reference:1. Sanford C, Bijan M, Jazmyne DC, et al.. A Unifying Approach for GFR Estimation: Recommendations of the NKF-ASN Task Force on Reassessing the Inclusion of Race in Diagnosing Kidney Disease. [place] Journal of Kidney Diseases 2021;79(2):268-88.e1.2. N Engl J Med 1 Vol. 385 Issue 19 Pages 8258-7522 Performed By: #### H MG MARGOT, CH8 ####S PATHOLOGY [id number] [place], [place], Glucose [Mass/Vol] 141 mg/dL High 80-116 [facility] [place] [facility] Comment on above: Performed By: #### MG DAVID, CH8 ####[facility] [id number] [place], Potassium [Moles/Vol] 4.2 mmol/L Normal 3.3-5.3 [facility] [place] [facility] Comment on above: Performed By: #### MG DAVID, CH8 ####[facility] [id number] [place], Sodium [Moles/Vol] 135 mmol/L Normal 135-148 [facility] [place] [employer] [facility] Comment on above: Performed By: #### MG DAVID, CH8 ####[facility] [id number] [place], Urea nitrogen [Mass/Vol] 16 mg/dL Normal 8-22 [facility] [place] [employer] [facility] Comment on above: Performed By: #### MG DAVID, CH8 ####[facility] [id number] [place], Basic metabolic 2000 panelon 11-06-2022 Anion gap [Moles/Vol] 12 mmol/L 10 - 20 [facility] Calcium [Mass/Vol] 8.8 mg/dL 8.4 - 10.4 mg/dL [facility] Chloride [Moles/Vol] 103 mmol/L 97 - 111 mmol/L [facility] CO2 [Moles/Vol] 24 mmol/L 21 - 30 mmol/L [facility] Creatinine [Mass/Vol] 1.20 mg/dL High 0.50 - 1.10 mg/dL [facility] GFR/1.73 sq M.predicted MDRD (S/P/Bld) [Vol rate/Area] 51 mL/min/{1.73_m2} Low - PINF [facility] Comment on above: 2020 CKD EPI Equatio n using Creatinine without Race Comment: Estimated glomerular filtration rate (eGFR) is calculated without a race coefficient. Values should be interpreted in the context of the patient's full clinical presentation. Reference: 1. Sanford Curry, Bijan M, Jazmyne TAVERA, et al.. A Unifying Approach for GFR Estimation: Recommendations of the NKF-ASN Task Force on Reassessing the Inclusion of Race in Diagnosing Kidney Disease. [place] Journal of Kidney Diseases 202;79(2):268-88.e1. 2. N Engl J Med 2020 Vol. 385 Issue 19 Pages 3017-2410 Glucose [Mass/Vol] 141 mg/dL High 80 - 116 mg/dL [facility] Potassium [Moles/Vol] 4.2 mmol/L 3.3 - 5.3 mmol /L [facility] Sodium [Moles/Vol] 135 mmol/L 135 - 148 mmol/L [facility] Urea nitrogen [Mass/Vol] 16 mg/dL 8 - 22 mg/dL [facility] CBC WITH DIFFERENTIALon 07-3 Basophils (Bld) [#/Vol] 0.02 10*3/uL Normal 0.00-0.20 [facility] Comment on above: Performed By: #### C BCDSAT ####S PATHOLOGY [id number] [place], Basophils/100 WBC (Bld) 0.5 % Normal <=1.9 [facility] Comment on above: Performed By: #### C BCDSAT ####[facility] [id number] [place], Eosinophils (Bld) [#/Vol] 0.05 10*3/uL Normal 0.00-0.70 [facility] Comment on above: Performed By: #### Antoinette MCQUEENAT ####[facility] PATHOLOGY [id number] [place], Eosinophils/100 WBC (Bld) 1.3 % Normal 0.1-4.0 [facility] Comment on above: Performed By: #### Antoinette MCQUEENAT ####[facility] PATHOLOGY [id number] [place] [address], Erythrocyte distribution width (RBC) [Ratio] 13.8 % Normal 11.5-14.5 [facility] Comment on above: Performed By: #### Antoinette MCQUEENAT ####[facility] PATHOLOGY [id number] [place] [address], Hematocrit (Bld) [Volume fraction] 33.1 % Low 36.0-46.0 [facility] Comment on above: Performed By: #### Antoinette MCQUEENAT ####[facility] PATHOLOGY [id number] [place] [address], Hemoglobin (Bld) [Mass/Vol] 11.5 g/dL Low 12.0-15.0 [facility] Comment on above: Performed By: #### Antoinette MCQUEENAT ####[facility] PATHOLOGY [id number] [place] [address], Lymphocytes (Bld) [#/Vol] 0.32 10*3/uL Low 1.00-4.80 [facility] [place] [facility] Comment on above: Performed By: #### Antoinette MCQUEENAT ####[facility] PATHOLOGY [id number] [place] [address], Lymphocytes/100 WBC (Bld) 8.0 % Low 24.0-44.0 [facility] Comment on above: Performed By: #### Antoinette MCQUEENAT ####[facility] PATHOLOGY [id number] [place], [place], MCH (RBC) [Entitic mass] 35.4 pg High 26.0-34.0 [facility] Comment on above: Performed By: #### Antoinette MCQUEENAT ####[facility] [id number] [place], MCHC (RBC) [Mass/Vol] 34.6 g/dL Normal 32.0-35.9 [facility] Comment on above: Performed By: #### Antoinette MCQUEENAT ####[facility] PATHOLOGY [id number] [place], MCV (RBC) [Entitic vol] 102 fL High 80-100 [facility] Comment on above: Performed By: #### Antoinette MCQUEENAT ####[facility] PATHOLOGY [id number] [place], MONOCYTE DISTRIBUTION WIDTH Normal [facility] Comment on above: Performed By: #### Antoinette MCQUEENAT ####[facility] PATHOLOGY [id number] [place], Monocytes (Bld) [#/Vol] 0.67 10*3/uL Normal 0.20-1.00 The [facility] Comment on above: Performed By: #### Antoinette MCQUEENAT ####[facility] PATHOLOGY [id number] [place], Monocytes/100 WBC (Bld) 16.9 % High 2.0-11.0 The [facility] Comment on above: Performed By: #### Antoinette MCQUEENAT ####[facility] PATHOLOGY [id number] [place], Neutrophils (Bld) [#/Vol] 2.92 10*3/uL Normal 1.50-8.00 The [facility] Comment on above: Performed By: #### Antoinette MCQUEENAT ####[facility] PATHOLOGY [id number] [place], Neutrophils/100 WBC (Bld) 73.4 % Normal 31.0-76.0 The [facility] Comment on above: Performed By: #### Antoinette MCQUEENAT ####S PATHOLOGY [id number] [place], Platelet mean volume (Bld) [Entitic vol] 8.0 fL Normal 7.5-11.2 [facility] Comment on above: Performed By: #### C RICHARAT ####[facility] [id number] [place], Platelets (Bld) [#/Vol] 72 10*3/uL Low 150-400 [facility] Comment on above: Performed By: #### C BCDSAT ####[facility] PATHOLOGY [id number] [place], RBC (Bld) [#/Vol] 3.24 10*6/uL Low 4.00-5.20 [facility] Comment on above: Performed By: #### C BCDSAT ####[facility] PATHOLOGY [id number] [place], WBC (Bld) [#/Vol] 4.0 10*3/uL Low 4.5-11.5 The [facility] Comment on above: Performed By: #### C BCDSAT ####[facility] PATHOLOGY [id number] [place], [place], CBC WITH DIFFERENTIALOrdered By: Maribeth Feng on 11-06-2022 Basophils (Bld) [#/Vol] 0.02 10*3/uL 0.00 - 0.20 K/uL [facility] Basophils/100 WBC (Bld) 0.5 % NINF - 1.9 % [facility] Eosinophils (Bld) [#/Vol] 0.05 10*3/uL 0.00 - 0.70 K/uL [facility] Eosinophils/100 WBC (Bld) 1.3 % 0.1 - 4.0 % [facility] Erythrocyte distribution width (RBC) [Ratio] 13.8 % 11.5 - 14.5 % [facility] Hematocrit (Bld) [Volume fraction] 33.1 % Low 36.0 - 46.0 % [facility] Hemoglobin (Bld) [Mass/Vol] 11.5 g/dL Low 12.0 - 15.0 g/dL [facility] Interpretation and review of laboratory results Abnormal [facility] Lymphocytes (Bld) [#/Vol] 0.32 10*3/uL Low 1.00 - 4.80 K/uL [facility] Lymphocytes/100 WBC (Bld) 8.0 % Low 24.0 - 44.0 % [facility] MCH (RBC) [Entitic mass] 35.4 pg High 26.0 - 34.0 pg [facility] MCHC (RBC) [Mass/Vol] 34.6 g/dL 32.0 - 35.9 g/ dL [facility] MCV (RBC) [Entitic vol] 102 fL High 80 - 100 fL [facility] Monocyte distribution width Auto (Bld) [Entitic vol] [facility] Monocytes (Bld) [#/Vol] 0.67 10*3/uL 0.20 - 1.00 K/uL [facility] Monocytes/100 WBC (Bld) 16.9 % High 2.0 - 11.0 % [facility] Neutrophils (Bld) [#/Vol] 2.92 10*3/uL 1.50 - 8.00 K/uL [facility] Neutrophils/100 WBC (Bld) 73.4 % 31.0 - 76.0 % [facility] Platelet mean volume (Bld) [Entitic vol] 8.0 fL 7.5 - 11.2 fL [facility] Platelets (Bld) [#/Vol] 72 10*3/uL Low 150 - 400 K/uL [facility] RBC (Bld) [#/Vol] 3.24 10*6/uL Low [facility] WBC (Bld) [#/Vol] 4.0 10*3/uL Low 4.5 - 11.5 K/uL [facility] HEPATIC FUNCTION PANELon Albumin [Mass/Vol] 4.0 g/dL Normal 3.4-5.1 The [facility] Comment on above: Performed By: #### H MG FROST CH8 ####S PATHOLOGY [id number] [place] [address], ALK 96 IU/L Normal 40-200 The [facility] Comment on above: Performed By: #### H MG FROST CH8 ####S PATHOLOGY [id number] [place] [address], ALT [Catalytic activity/Vol] 8 U/L Normal 7-40 The [facility] Comment on above: Performed By: #### H MG FROST CH8 ####S PATHOLOGY [id number] [place] [address], AST [Catalytic activity/Vol] 13 U/L Normal 7-40 The [facility] Comment on above: Performed By: #### H MG MARGOT, KLAUDIA8 ####[facility] PATHOLOGY [id number] [place], Bilirubin [Mass/Vol] 0.6 mg/dL Normal 0.1-1.5 The [facility] Comment on above: Performed By: #### H MG MARGOT, KLAUDIA8 ####[facility] PATHOLOGY [id number] [place], Bilirubin.direct [Mass/Vol] 0.13 mg/dL Normal 0.10-0.30 The [facility] Comment on above: Performed By: #### MG DAVID, KLAUDIA8 ####[facility] PATHOLOGY [id number] [place], Protein [Mass/Vol] 6.4 g/dL Normal 5.7-8.1 The [facility] Comment on above: Performed By: #### MG HERNANDEZ CH8 ####[facility] PATHOLOGY [id number] [place], Albumin [Mass/Vol] 4.0 g/dL 3.4 - 5.1 g/dL [facility] ALP [Catalytic activity/Vol] 96 U/L [facility] ALT [Catalytic activity/Vol] 8 U/L [facility] AST [Catalytic activity/Vol] 13 U/L [facility] Bilirubin [Mass/Vol] 0.6 mg/dL 0.1 - 1.5 mg/dL [facility] Bilirubin.direct [Mass/Vol] 0.13 mg/dL 0.10 - 0.30 mg/dL [facility] Interpretation and review of laboratory results Normal [facility] Protein [Mass/Vol] 6.4 g/dL 5.7 - 8.1 g/dL [facility] MAGNESIUMon 11-06-2022 Magnesium [Mass/Vol] 1.5 mg/dL Low 1.6-2.8 The [facility] Comment on above: Performed By: #### MG DAVID, KLAUDIA8 ####[facility] PATHOLOGY [id number] [place], Magnesium [Mass/Vol] 1.5 mg/dL Low 1.6 - 2.8 mg/dL [facility] No Panel Informationon 11-06 Interpretation and review of laboratory results Abnormal [facility] PAIN MANAGEMENT PANELon 10-09 ALCOHOL-CLINICAL EDUCATION ASSISTANT Negative Normal Cutoff: 10 [facility] Comment on above: Order Comment: Scree n results are reported as positive (at or above the cutoff) or negative (below the cutoff).The LC-MS/MS testing (if applicable) was developed and its performance characteristics determined by The [facility] in a manner consistent with CLIA requirements. This test has not been cleared or approved by the U.S. Food and Drug Administration; however, the FDA has determined that such clearance or approval is not necessary. Performed By: #### P MP ####S PATHOLOGY [id number] [place], [place], AMPHETAMINE Negative Normal Cutoff:1000 [facility] Comment on above: Order Comment: Scree n results are reported as positive (at or above the cutoff) or negative (below the cutoff).The LC-MS/MS testing (if applicable) was developed and its performance characteristics determined by [facility] in a manner consistent with CLIA requirements. This test has not been cleared or approved by the U.S. Food and Drug Administration; however, the FDA has determined that such clearance or approval is not necessary. Performed By: #### P MP ####S PATHOLOGY [id number] [place], Benzodiazepines Ql (U) Negative Normal Cutoff: 200 [facility] Comment on above: Order Comment: Scree n results are reported as positive (at or above the cutoff) or negative (below the cutoff).The LC-MS/MS testing (if applicable) was developed and its performance characteristics determined by The [facility] in a manner consistent with CLIA requirements. This test has not been cleared or approved by the U.S. Food and Drug Administration; however, the FDA has determined that such clearance or approval is not necessary. Performed By: #### P MP ####[facility] [id number] [place], COCAINE METABOLITE Negative Normal Cutoff: 300 [facility] Comment on above: Order Comment: Scree n results are reported as positive (at or above the cutoff) or negative (below the cutoff).The LC-MS/MS testing (if applicable) was developed and its performance characteristics determined by The [facility] in a manner consistent with CLIA requirements. This test has not been cleared or approved by the U.S. Food and Drug Administration; however, the FDA has determined that such clearance or approval is not necessary. Performed By: #### P MP ####[facility] PATHOLOGY [id number] [place], [place], CREATININE, URINE 261 mg/dL Normal 10-300 [facility] Comment on above: Order Comment: Scree n results are reported as positive (at or above the cutoff) or negative (below the cutoff).The LC-MS/MS testing (if applicable) was developed and its performance characteristics determined by The [facility] in a manner consistent with CLIA requirements. This test has not been cleared or approved by the U.S. Food and Drug Administration; however, the FDA has determined that such clearance or approval is not necessary. Performed By: #### P MP ####[facility] PATHOLOGY [id number] [place], [place], FENTANYL Positive Abnormal Cutoff: 1 [facility] Comment on above: Order Comment: Scree n results are reported as positive (at or above the cutoff) or negative (below the cutoff).The LC-MS/MS testing (if applicable) was developed and its performance characteristics determined by The [facility] in a manner consistent with CLIA requirements. This test has not been cleared or approved by the U.S. Food and Drug Administration; however, the FDA has determined that such clearance or approval is not necessary. Result Comment: This screen result is positive. This is an unconfirmed test result for clinical management. Your provider may order an additional test to confirm these results. The positive immunoassay screen result is presumptive and a secondary method must be used in order to obtain a confirmed analytical result. Performed By: #### P MP ####S PATHOLOGY [id number] [place], [place], FENTANYL CONFIRMED Not detected Normal Cutoff: 1 [facility] Comment on above: Order Comment: Scree n results are reported as positive (at or above the cutoff) or negative (below the cutoff).The LC-MS/MS testing (if applicable) was developed and its performance characteristics determined by [facility] in a manner consistent with CLIA requirements. This test has not been cleared or approved by the U.S. Food and Drug Administration; however, the FDA has determined that such clearance or approval is not necessary. Performed By: #### P MP ####[facility] PATHOLOGY [id number] [place], [place], Methadone Ql (U) Negative Normal Cutoff: 300 The [facility] Comment on above: Order Comment: Scree n results are reported as positive (at or above the cutoff) or negative (below the cutoff).The LC-MS/MS testing (if applicable) was developed and its performance characteristics determined by [facility] in a manner consistent with CLIA requirements. This test has not been cleared or approved by the U.S. Food and Drug Administration; however, the FDA has determined that such clearance or approval is not necessary. Performed By: #### P MP ####[facility] PATHOLOGY [id number] [place], [place], NORBUPRENORPHINE Negative Normal Cutoff: 5 [facility] Comment on above: Order Comment: Scree n results are reported as positive (at or above the cutoff) or negative (below the cutoff).The LC-MS/MS testing (if applicable) was developed and its performance characteristics determined by [facility] in a manner consistent with CLIA requirements. This test has not been cleared or approved by the U.S. Food and Drug Administration; however, the FDA has determined that such clearance or approval is not necessary. Performed By: #### P MP ####[facility] PATHOLOGY [id number] [place], [place], NORFENTANYL CONFIRMED Not detected Normal Cutoff: 1 T [facility] Comment on above: Order Comment: Scree n results are reported as positive (at or above the cutoff) or negative (below the cutoff).The LC-MS/MS testing (if applicable) was developed and its performance characteristics determined by [facility] in a manner consistent with CLIA requirements. This test has not been cleared or approved by the U.S. Food and Drug Administration; however, the FDA has determined that such clearance or approval is not necessary. Performed By: #### P MP ####[facility] PATHOLOGY [id number] [place], [place], OPIATE Positive Abnormal Cutoff: 300 The [employer] [place] [employer] [facility] Comment on above: Order Comment: Scree n results are reported as positive (at or above the cutoff) or negative (below the cutoff).The LC-MS/MS testing (if applicable) was developed and its performance characteristics determined by [facility] in a manner consistent with CLIA requirements. This test has not been cleared or approved by the U.S. Food and Drug Administration; however, the FDA has determined that such clearance or approval is not necessary. Result Comment: This test may exhibit a false positive result due to the interaction of the reagents with some naturally occurring substances and drugs. Performed By: #### P MP ####[facility] PATHOLOGY [id number] [place], [place], OXYCODONE Positive Abnormal Cutoff: 100 [facility] Comment on above: Order Comment: Scree n results are reported as positive (at or above the cutoff) or negative (below the cutoff).The LC-MS/MS testing (if applicable) was developed and its performance characteristics determined by [facility] in a manner consistent with CLIA requirements. This test has not been cleared or approved by the U.S. Food and Drug Administration; however, the FDA has determined that such clearance or approval is not necessary. Result Comment: Oxyc odone and metabolites of Oxycodone (Oxymorphone, Noroxycodone, and Noroxymorphone) are measured/detected in this assay method. Performed By: #### P MP ####[facility] PATHOLOGY [id number] [place], OXYCODONE CONFIRMATION Positive Abnormal Cutoff: 100 The [employer] [place] [employer] [facility] Comment on above: Order Comment: Scree n results are reported as positive (at or above the cutoff) or negative (below the cutoff).The LC-MS/MS testing (if applicable) was developed and its performance characteristics determined by [facility] [facility] in a manner consistent with CLIA requirements. This test has not been cleared or approved by the U.S. Food and Drug Administration; however, the FDA has determined that such clearance or approval is not necessary. Performed By: #### P MP ####[facility] PATHOLOGY [id number] [place], OXYMORPHONE CONFIRMATION Positive Abnormal Cutoff: 100 The [facility] Comment on above: Order Comment: Scree n results are reported as positive (at or above the cutoff) or negative (below the cutoff).The LC-MS/MS testing (if applicable) was developed and its performance characteristics determined by [facility] in a manner consistent with CLIA requirements. This test has not been cleared or approved by the U.S. Food and Drug Administration; however, the FDA has determined that such clearance or approval is not necessary. Performed By: #### P MP ####[facility] PATHOLOGY [id number] [place], [place], THC Positive Abnormal Cutoff: 50 The [facility] Comment on above: Order Comment: Scree n results are reported as positive (at or above the cutoff) or negative (below the cutoff).The LC-MS/MS testing (if applicable) was developed and its performance characteristics determined by [facility] in a manner consistent with CLIA requirements. This test has not been cleared or approved by the U.S. Food and Drug Administration; however, the FDA has determined that such clearance or approval is not necessary. Performed By: #### P MP ####[facility] PATHOLOGY [id number] [place], THC CONFIRMATION Positive Abnormal Cutoff: 15 [facility] Comment on above: Order Comment: Scree n results are reported as positive (at or above the cutoff) or negative (below the cutoff).The LC-MS/MS testing (if applicable) was developed and its performance characteristics determined by [facility] [facility] in a manner consistent with CLIA requirements. This test has not been cleared or approved by the U.S. Food and Drug Administration; however, the FDA has determined that such clearance or approval is not necessary. Result Comment: The drug analyte detected in this assay, 93-pvx-Mkahteo-delta 9-THC, is a metabolite of djait-2-gurjctilaaqrfsbhklhu (THC). Detection of 15-yka-Wvtepqn-delta 9-THC suggests use of, or exposure to, a product containing THC. This test cannot distinguish between prescribed or non-prescribed forms of THC, nor can it distinguish between active or passive use. The 30-lzc-Ruzqbsg-delta 9-THC metabolite may be detected in urine for several weeks. Performed By: #### P MP ####S PATHOLOGY [id number] [place], [place], Telephone Encounteron 2022 Secretary [employer] Police Authentication Interface Message Text Normal [facility] [place] [facility] BASIC METABOLIC PANELon 10-08 Anion gap [Moles/Vol] 14 mmol/L Normal 10-20 [facility] [place] [facility] Comment on above: Performed By: #### Law Pappas, CH8 ####S PATHOLOGY [id number] [place], [place], Calcium [Mass/Vol] 8.9 mg/dL Normal 8.4-10.4 [facility] [place] [facility] Comment on above: Performed By: #### Law Pappas, CH8 ####S PATHOLOGY [id number] [place], [place], Chloride [Moles/Vol] 110 mmol/L Normal 97-111 [facility] [place] [facility] Comment on above: Performed By: #### Law Pappas, CH8 ####S PATHOLOGY [id number] [place], CO2 [Moles/Vol] 18 mmol/L Low 21-30 [facility] [place] [facility] Comment on above: Performed By: #### Law Pappas, CH8 ####S PATHOLOGY [id number] [place], [place], Creatinine [Mass/Vol] 1.15 mg/dL High 0.50-1.10 [facility] [place] [facility] Comment on above: Performed By: #### Law Pappas, CH8 ####S PATHOLOGY [id number] [place], [place], ESTIMATED GFR (CKD-EPI) 53 mL/min/1.73sqm Low >=60 [facility] [place] [facility] Comment on above: Result Comment: 2020 CKD EPI Equation using Creatinine without RaceComment: Estimated glomerular filtration rate (eGFR) is calculated without a race coefficient. Values should be interpreted in the context of the patient's full clinical presentation.Reference:1. Sanford Curry, Bijan M, Jazmyne TAVERA, et al.. A Unifying Approach for GFR Estimation: Recommendations of the NKF-ASN Task Force on Reassessing the Inclusion of Race in Diagnosing Kidney Disease. [place] Journal of Kidney Diseases 2021;79(2):268-88.e1.2. N Engl J Med 2020 Vol. 385 Issue 19 Pages 5983-8688 Performed By: #### Law Pappas, CH8 ####[facility] [id number] [place], [place], Glucose [Mass/Vol] 96 mg/dL Normal 80-116 [facility] [place] [facility] Comment on above: Performed By: #### Law Pappas, CH8 ####[facility] PATHOLOGY [id number] [place], [place], Potassium [Moles/Vol] 4.0 mmol/L Normal 3.3-5.3 [facility] [place] [facility] Comment on above: Performed By: #### Law Pappas, CH8 ####[facility] PATHOLOGY [id number] [place], Sodium [Moles/Vol] 138 mmol/L Normal 135-148 [facility] [place] [facility] Comment on above: Performed By: #### Law Pappas, CH8 ####[facility] PATHOLOGY [id number] [place], Urea nitrogen [Mass/Vol] 12 mg/dL Normal 8-22 [facility] [place] [facility] Comment on above: Performed By: #### Law Pappas, CH8 ####[facility] PATHOLOGY [id number] [place], [place], Basic metabolic 2000 panelOr dered By: Farhana Stephens on 11-02-2022 Anion gap [Moles/Vol] 14 mmol/L 10 - 20 [facility] Calcium [Mass/Vol] 8.9 mg/dL 8.4 - 10.4 mg/dL [facility] Chloride [Moles/Vol] 110 mmol/L 97 - 111 mmol/L [facility] CO2 [Moles/Vol] 18 mmol/L Low 21 - 30 mmol/L [facility] Creatinine [Mass/Vol] 1.15 mg/dL High 0.50 - 1.10 mg/dL [facility] GFR/1.73 sq M.predicted MDRD (S/P/Bld) [Vol rate/Area] 53 mL/min/{1.73_m2} Low - PINF [facility] Comment on above: 2020 CKD EPI Equatio n using Creatinine without Race Comment: Estimated glomerular filtration rate (eGFR) is calculated without a race coefficient. Values should be interpreted in the context of the patient's full clinical presentation. Reference: 1. Sanford C, Bijan M, Jazmyne DC, et al.. A Unifying Approach for GFR Estimation: Recommendations of the NKF-ASN Task Force on Reassessing the Inclusion of Race in Diagnosing Kidney Disease. [place] Journal of Kidney Diseases 202;79(2):268-88.e1. 2. N Engl J Med 2020 Vol. 385 Issue 19 Pages 7072-8073 Glucose [Mass/Vol] 96 mg/dL 80 - 116 mg/[facility] Interpretation and review of laboratory results Abnormal [facility] Potassium [Moles/Vol] 4.0 mmol/L 3.3 - 5.3 mmol /L [facility] Sodium [Moles/Vol] 138 mmol/L 135 - 148 mmol/L [facility] Urea nitrogen [Mass/Vol] 12 mg/dL 8 - 22 mg/dL [facility] CBC WITH DIFFERENTIALOrdered By: Rommel West on 11-02-2022 Erythrocyte distribution width (RBC) [Ratio] 13.2 % 11.5 - 14.5 % [facility] Hematocrit (Bld) [Volume fraction] 33.6 % Low 36.0 - 46.0 % [facility] Hemoglobin (Bld) [Mass/Vol] 11.4 g/dL Low 12.0 - 15.0 g/dL [facility] MCH (RBC) [Entitic mass] 35.1 pg High 26.0 - 34.0 pg [facility] MCHC (RBC) [Mass/Vol] 34.0 g/dL 32.0 - 35.9 g/ dL [facility] MCV (RBC) [Entitic vol] 103 fL High 80 - 100 fL [facility] Monocyte distribution width Auto (Bld) [Entitic vol] [facility] Platelet mean volume (Bld) [Entitic vol] 7.4 fL Low 7.5 - 11.2 fL [facility] Platelets (Bld) [#/Vol] 41 10*3/uL Critically low 150 - 400 K/uL [facility] RBC (Bld) [#/Vol] 3.25 10*6/uL Low [facility] WBC (Bld) [#/Vol] 0.8 10*3/uL Critically low 4.5 - 11.5 K/ uL [facility] CBC WITH DIFFERENTIALon 10-08 Erythrocyte distribution width (RBC) [Ratio] 13.2 % Normal 11.5-14.5 The [facility] System Comment on above: Performed By: ###ALAN DE LA CRUZ ####[facility] PATHOLOGY [id number] [place], [place], Hematocrit (Bld) [Volume fraction] 33.6 % Low 36.0-46.0 The [facility] Comment on above: Performed By: ###ALAN DE LA CRUZ ####[facility] PATHOLOGY [id number] [place], Hemoglobin (Bld) [Mass/Vol] 11.4 g/dL Low 12.0-15.0 The [facility] Comment on above: Performed By: ###ALAN DE LA CRUZ ####[facility] PATHOLOGY [id number] [place], [place], MCH (RBC) [Entitic mass] 35.1 pg High 26.0-34.0 The [facility] Comment on above: Performed By: ###ALAN DE LA CRUZ ####[facility] PATHOLOGY [id number] [place], MCHC (RBC) [Mass/Vol] 34.0 g/dL Normal 32.0-35.9 The [facility] Comment on above: Performed By: ###ALAN DE LA CRUZ ####[facility] PATHOLOGY [id number] [place], MCV (RBC) [Entitic vol] 103 fL High 80-100 The [facility] Comment on above: Performed By: ###ALAN DE LA CRUZ ####[facility] PATHOLOGY [id number] [place], MONOCYTE DISTRIBUTION WIDTH Normal The [facility] Comment on above: Performed By: ###ALAN DE LA CRUZ ####S PATHOLOGY [id number] [place], Platelet mean volume (Bld) [Entitic vol] 7.4 fL Low 7.5-11.2 The [facility] Comment on above: Performed By: ###ALAN DE LA CRUZ ####S PATHOLOGY [id number] [place], Platelets (Bld) [#/Vol] 41 10*3/uL Critically low 150-400 The [facility] System Comment on above: Performed By: ###ALAN DE LA CRUZ ####[facility] PATHOLOGY [id number] [place], RBC (Bld) [#/Vol] 3.25 10*6/uL Low 4.00-5.20 The [facility] System Comment on above: Performed By: #### ALAN MCCARTY ####[facility] PATHOLOGY [id number] [place], WBC (Bld) [#/Vol] 0.8 10*3/uL Critically low 4.5-11.5 Th e [facility] System Comment on above: Performed By: ###ALAN DE LA CRUZ ####[facility] PATHOLOGY [id number] [place], [place], Care Plan Noteon 11-02-2022 Secretary Of Police Authentication Interface Message Text Normal The [facility] MAGNESIUMon 11-02-2022 Magnesium [Mass/Vol] 2.0 mg/dL Normal 1.6-2.8 The [facility] Comment on above: Performed By: ###FLACA Luevano ####[facility] PATHOLOGY [id number] [place], [place], Interpretation and review of laboratory results Normal [facility] Magnesium [Mass/Vol] 2.0 mg/dL 1.6 - 2.8 mg/dL [facility] MANUAL DIFF AND MORPHon 10-08 Cells Counted Total (Bld) [#] 50 {cells} [facility]ld[facility] [#/Vol] 0.06 10*3/uL 0.00 - 0.70 K/uL [facility] Eosin[facility]/100 WBC (Bld) 8.0 % High 0.1 - 4.0 % [facility] Lymphocytes (Bld) [#/Vol] 0.26 10*3/uL Low 1.00 - 4.80 K/uL [facility] Lymphocytes/100 WBC (Bld) 32.0 % 24.0 - 44.0 % [facility] Macrocytes Ql (Bld) Slight [facility] Monocytes (Bld) [#/Vol] 0.16 10*3/uL Low 0.20 - 1.00 K/uL [facility] Monocytes/100 WBC (Bld) 20.0 % High 2.0 - 11.0 % [facility] Neutrophils (Bld) [#/Vol] 0.32 10*3/uL Low 1.50 - 8.00 K/uL [facility] Neutrophils/100 WBC (Bld) 40.0 % 31.0 - 76.0 % [facility] Ovalocytes LM Ql (Bld) Few [facility] CELLS COUNTED TOTAL # IN BLOOD 50 Normal [facility] Comment on above: Performed By: ###ALAN DE LA CRUZ ####S PATHOLOGY [id number] [place], EOSINOPHILS % BY MANUAL COUNT 8.0 % High 0.1-4.0 [facility] [place] [facility] Comment on above: Performed By: ###ALAN DE LA CRUZ ####S PATHOLOGY [id number] [place], EOSINOPHILS ABS BY MANUAL COUNT 0.06 K/uL Normal 0.00-0.70 [facility] [place] [facility] Comment on above: Performed By: ###ALAN DE LA CRUZ ####[facility] PATH[facility] [id number] [place], LYMPHOCYTES % BY MANUAL COUNT 32.0 % Normal 24.0-44.0 [facility] [place] [facility] Comment on above: Performed By: ###ALAN DE LA CRUZ ####[facility] PATHOLOG[facility] [id number] [place], LYMPHOCYTES ABS BY MANUAL COUNT 0.26 K/uL Low 1.00-4.80 [facility] [place] [facility] Comment on above: Performed By: ###ALAN DE LA CRUZ ####S PATHOLOGY [id number] [place], MACROCYTOSIS Slight Normal The [facility] System Comment on above: Performed By: ###ALAN DE LA CRUZ ####S PATHOLOGY [id number] [place], MONOCYTES % BY MANUAL COUNT 20.0 % High 2.0-11.0 The [facility] System Comment on above: Performed By: #### ALAN MCCARTY ####[facility] PATH[facility] [id number] [place], MONOCYTES ABS BY MANUAL COUNT 0.16 K/uL Low 0.20-1.00 The [facility] System Comment on above: Performed By: #### ALAN MCCARTY ####S PATHOLOGY [id number] [place], NEUTROPHILS % BY MANUAL COUNT 40.0 % Normal 31.0-76.0 The [facility] System Comment on above: Performed By: #### ALAN MCCARTY ####S PATHOLOGY [id number] [place], NEUTROPHILS ABS BY MANUAL COUNT 0.32 K/uL Low 1.50-8.00 The [facility] System Comment on above: Performed By: ###ALAN DE LA CRUZ ####S PATHOLOGY [id number] [place], OVALOCYTES Few Normal The [facility] System Comment on above: Performed By: ###ALAN DE LA CRUZ ####S PATHOLOGY [id number] [place], MRSA SCREENOrdered By: Christoph Ozuna on 11-02-2022 Interpretation and review of laboratory results Normal [facility] MRSA isol Org specific cx Ql (Nose) No methicillin resistant Staphylococcus aureus isolated. No methicillin resistant Staphylococcus aureus isolated. [facility] No Panel InformationOrdered By: Rommel West on 11-02-2022 Interpretation and review of laboratory results [facility]normal [facility] Notes[facility] 11-02-2022 Secretary Of Police Authentication Interface Message Text Normal [facility] [place] [facility] B TYPE NATRIURETIC PEPTIDEon 2022 Natriuretic peptide B (Bld) [Mass/Vol] 63.0 pg/mL Normal <100.0 The [facility] System Comment on above: Performed By: #### B PL ####S PATHOLOGY [id number] [place] [address], Interpretation and review of laboratory results Normal [facility] Natriuretic peptide B (Bld) [Mass/Vol] 63.0 pg/mL NINF - 100.0 pg/mL [facility] BASIC METABOLIC PANELon 07- Anion gap [Moles/Vol] 14 mmol/L Normal 10-20 The [facility] System Comment on above: Performed By: #### Law Pappas, PROCAL, PHOS, CH8, URIC ####[facility] PATHOLOGY [id number] [place], Calcium [Mass/Vol] 8.3 mg/dL Low 8.4-10.4 The [facility] System Comment on above: Performed By: #### Law Pappas, PROCAL, PHOS, CH8, URIC ####[facility] PATHOLOGY [id number] [place], Chloride [Moles/Vol] 108 mmol/L Normal 97-111 The [facility] System Comment on above: Performed By: #### Law Pappas, PROCAL, PHOS, CH8, URIC ####[facility] PATHOLOGY [id number] [place], CO2 [Moles/Vol] 17 mmol/L Low 21-30 The [facility] System Comment on above: Performed By: #### Law G, PROCAL, PHOS, CH8, URIC ####S PATHOLOGY [id number] [place], Creatinine [Mass/Vol] 1.10 mg/dL Normal 0.50-1.10 The [facility] System Comment on above: Performed By: #### Law G, PROCAL, PHOS, CH8, URIC ####S PATHOLOGY [id number] [place], ESTIMATED GFR (CKD-EPI) 56 mL/min/1.73sqm Low >=60 [facility] [place] [facility] Comment on above: Result Comment: 2020 CKD EPI Equation using Creatinine without RaceComment: Estimated glomerular filtration rate (eGFR) is calculated without a race coefficient. Values should be interpreted in the context of the patient's full clinical presentation.Reference:1. Sanford C, Bijan M, Jazmyne TAVERA, et al.. A Unifying Approach for GFR Estimation: Recommendations of the NKF-ASN Task Force on Reassessing the Inclusion of Race in Diagnosing Kidney Disease. [place] Journal of Kidney Diseases 2021;79(2):268-88.e1.2. N Engl J Med 1 Vol. 385 Issue 19 Pages 0941-4759 Performed By: #### M G, PROCAL, PHOS, CH8, URIC ####[facility] PATH[facility] [id number] [place], Glucose [Mass/Vol] 112 mg/dL Normal 80-116 [facility] [place] [facility] Comment on above: Performed By: #### M G, PROCAL, PHOS, CH8, URIC ####[facility] PATH[facility] [id number] [place], Potassium [Moles/Vol] 4.2 mmol/L Normal 3.3-5.3 The [facility] [place] [facility] Comment on above: Performed By: #### M G, PROCAL, PHOS, CH8, URIC ####[facility] PATH[facility] [id number] [place], Sodium [Moles/Vol] 135 mmol/L Normal 135-148 [facility] [place] [facility] Comment on above: Performed By: #### M G, PROCAL, PHOS, CH8, URIC ####[facility] PATHOLOG[facility] [id number] [place], Urea nitrogen [Mass/Vol] 14 mg/dL Normal 8-22 [facility] [place] [facility] Comment on above: Performed By: #### M G, PROCAL, PHOS, CH8, URIC ####[facility] PATHOLOG[facility] [id number] [place], [place], Basic metabolic 2000 panelon 2022 Anion gap [Moles/Vol] 14 mmol/L 10 - 20 [facility] Calcium [Mass/Vol] 8.3 mg/dL Low 8.4 - 10.4 mg/dL [facility] Chloride [Moles/Vol] 108 mmol/L 97 - 111 mmol/L [facility] CO2 [Moles/Vol] 17 mmol/L Low 21 - 30 mmol/L [facility] Creatinine [Mass/Vol] 1.10 mg/dL 0.50 - 1.10 mg/dL [facility] GFR/1.73 sq M.predicted MDRD (S/P/Bld) [Vol rate/Area] 56 mL/min/{1.73_m2} Low - PINF [facility] Comment on above: 2020 CKD EPI Equatio n using Creatinine without Race Comment: Estimated glomerular filtration rate (eGFR) is calculated without a race coefficient. Values should be interpreted in the context of the patient's full clinical presentation. Reference: 1. Sanford C, Bijan M, Jazmyne TAVERA, et al.. A Unifying Approach for GFR Estimation: Recommendations of the NKF-ASN Task Force on Reassessing the Inclusion of Race in Diagnosing Kidney Disease. [place] Journal of Kidney Diseases 2021;79(2):268-88.e1. 2. N Engl J Med 1 Vol. 385 Issue 19 Pages 3741-9006 Glucose [Mass/Vol] 112 mg/dL 80 - 116 mg/dL [facility] Interpretation and review of laboratory results Abnormal [facility] Potassium [Moles/Vol] 4.2 mmol/L 3.3 - 5.3 mmol /L [facility] Sodium [Moles/Vol] 135 mmol/L 135 - 148 mmol/L [facility] Urea nitrogen [Mass/Vol] 14 mg/dL 8 - 22 mg/dL [facility] CBC WITH DIFFERENTIALOrdered By: Elisa Zhang on 2022 Erythrocyte distribution width (RBC) [Ratio] 13.3 % 11.5 - 14.5 % [facility] Hematocrit (Bld) [Volume fraction] 32.7 % Low 36.0 - 46.0 % [facility] Hemoglobin (Bld) [Mass/Vol] 11.1 g/dL Low 12.0 - 15.0 g/dL [facility] MCH (RBC) [Entitic mass] 35.2 pg High 26.0 - 34.0 pg [facility] MCHC (RBC) [Mass/Vol] 33.9 g/dL 32.0 - 35.9 g/ dL [facility] MCV (RBC) [Entitic vol] 104 fL High 80 - 100 [facility]L [facility] Monocyte distribution width Auto (Bld) [Entitic vol] [facility] Platelet mean volume (Bld) [Entitic vol] 7.4 fL Low 7.5 - 11.2 fL [facility] Platelets (Bld) [#/Vol] 36 10*3/uL Critically low 150 - 400 K/[facility]L [facility] RBC (Bld) [#/Vol] 3.15 10*6/uL [facility] WBC (Bld) [#/Vol] 0.8 10*3/uL Critically low 4.5 - 11.5 K/ uL [facility] CBC WITH DIFFERENTIALon 10-08 Erythrocyte distribution width (RBC) [Ratio] 13.3 % Normal 11.5-14.5 The [facility] Comment on above: Performed By: #### ALAN MCCARTY ####Carlos PATHOLOGY [id number] [place] [address], Hematocrit (Bld) [Volume fraction] 32.7 % Low 36.0-46.0 The [facility] Comment on above: Performed By: ###ALAN DE LA CRUZ ####S PATHOLOGY [id number] [place], [place], Hemoglobin (Bld) [Mass/Vol] 11.1 g/dL Low 12.0-15.0 The [facility] Comment on above: Performed By: ###ALAN DE LA CRUZ ####S PATHOLOGY [id number] [place], [place], MCH (RBC) [Entitic mass] 35.2 pg High 26.0-34.0 The [facility] Comment on above: Performed By: ###ALAN DE LA CRUZ ####S PATHOLOGY [id number] [place], [place], MCHC (RBC) [Mass/Vol] 33.9 g/dL Normal 32.0-35.9 The [facility] Comment on above: Performed By: #### ALAN MCCARTY ####Carlos PATHOLOGY [id number] [place], [place], MCV (RBC) [Entitic vol] 104 fL High 80-100 [facility] Comment on above: Performed By: ###ALAN DE LA CRUZ ####Carlos PATHOLOGY [id number] [place], [place], MONOCYTE DISTRIBUTION WIDTH Normal The [facility] Comment on above: Performed By: #### ALAN MCCARTY ####[facility] PATHOLOGY [id number] [place], Platelet mean volume (Bld) [Entitic vol] 7.4 fL Low 7.5-11.2 The [facility] Comment on above: Performed By: #### ALAN MCCARTY ####Carlos PATHOLOGY [id number] [place], Platelets (Bld) [#/Vol] 36 10*3/uL Critically low 150-400 The [facility] Comment on above: Performed By: ###ALAN DE LA CRUZ ####Carlos PATHOLOGY [id number] [place], RBC (Bld) [#/Vol] 3.15 10*6/uL Low 4.00-5.20 The [facility] Comment on above: Performed By: ###ALAN DE LA CRUZ ####[facility] PATHOLOGY [id number] [place], WBC (Bld) [#/Vol] 0.8 10*3/uL Critically low 4.5-11.5 Th e [facility] Comment on above: Performed By: ###ALAN DE LA CRUZ ####S PATHOLOGY [id number] [place], [place], Care Plan Noteon 2022 Secretary Of Police Authentication Interface Message Text Normal [facility] [place] [facility] Consultson 2022 Secretary Of Police Authentication Interface Message Text Normal The [facility] Secretary Of Police Authentication Interface Message Text Normal The [facility] EKG 12 LEAD - PERFORMon 10-08 Diagnosis Normal sinus rhythm Nonspecific ST abnormality Abnormal ECG When compared with ECG of 15-JUL-2021 16:12, Minimal criteria for Inferior infarct are no longer Present Confirmed by Norma ESCALANTE GRACE ([id number]) on 2022 3:12:25 PM [facility] P wave Atrium by EKG 75 BPM [facility] P wave axis 52 degrees [facility] P-R Interval 192 ms [facility] Q-T interval 384 ms [facility] Q-T interval corrected 428 ms [facility] QRS axis 32 degrees [facility] QRS duration 88 ms [facility] T wave axis 52 degrees [facility] MAGNESIUMon 2022 Magnesium [Mass/Vol] 2.8 mg/dL Normal 1.6-2.8 [facility] Comment on above: Performed By: #### M G, PROCYURI, PHOS, CH8, URIC ####[facility] PATHOLOGY [id number] [place], [id number] MAGNESIUMOrdered By: Florecita Santiago on 2022 Interpretation and review of laboratory results Normal [facility] Magnesium [Mass/Vol] 2.8 mg/dL 1.6 - 2.8 mg/dL [facility] MANUAL DIFF AND MORPHon 10-08 Atypical Lymph # 0.03 K/uL [facility] lt Band form neutrophils/100 WBC (Bld) 2 % NINF - 10 % [facility] Bands # 0.02 K/uL High NINF - 0.01 K/uL [facility] l[facility] Cells Counted Total (Bld) [#] 100 {cells} [facility] Eosinophils (Bld) [#/Vol] 0.04 10*3/uL 0.00 - 0.70 K/uL [facility] Eosinophils/100 WBC (Bld) 5.0 % High 0.1 - 4.0 % [facility] Lymphocytes (Bld) [#/Vol] 0.32 10*3/uL Low 1.00 - 4.80 K/uL [facility] Lymphocytes/100 WBC (Bld) 40.0 % 24.0 - 44.0 % [facility] Macrocytes Ql (Bld) Slight [facility] Monocytes (Bld) [#/Vol] 0.09 10*3/uL Low 0.20 - 1.00 K/uL [facility] Monocytes/100 WBC (Bld) 11.0 % 2.0 - 11.0 % [facility] Neutrophils (Bld) [#/Vol] 0.29 10*3/uL Low 1.50 - 8.00 K/uL [facility] Neutrophils/100 WBC (Bld) 36.0 % 31.0 - 76.0 % [facility] Ovalocytes LM Ql (Bld) Few [facility] Polychromasia LM Ql (Bld) Slight [facility] ReactiveLymph # 0.02 K/uL [facility] Variant lymphocytes/100 WBC (Bld) 2 % [facility] Variant lymphocytes/100 WBC (Bld) 4 % [facility] ATYPICAL LYMPHS % BY MANUAL COUNT 4 % Normal The [facility] Comment on above: Performed By: #### ALAN MCCARTY ####S PATHOLOGY [id number] [place], ATYPICAL LYMPHS ABS BY MANUAL COUNT 0.03 K/uL Normal The [facility] Comment on above: Performed By: #### ALAN MCCARTY ####S PATHOLOGY [id number] [place], BANDS % BY MANUAL COUNT 2 % Normal <=10 The [facility] Comment on above: Performed By: #### ALAN MCCARTY ####S PATHOLOGY [id number] [place], BANDS ABS BY MANUAL COUNT 0.02 K/uL High <0.01 The [facility] Comment on above: Performed By: ###ALAN DE LA CRUZ ####[facility] PATHOLOGY [id number] [place], CELLS COUNTED TOTAL # IN BLOOD 100 Normal The [facility] Comment on above: Performed By: #### ALAN MCCARTY ####S PATHOLOGY [id number] [place], EOSINOPHILS % BY MANUAL COUNT 5.0 % High 0.1-4.0 The [facility] Comment on above: Performed By: #### ALAN MCCARTY ####[facility] PATHOLOGY [id number] [place], EOSINOPHILS ABS BY MANUAL COUNT 0.04 K/uL Normal 0.00-0.70 The [facility] Comment on above: Performed By: #### Antoinette NAVARRETE, MDIFF ####[facility] PATHOLOGY [id number] [place], LYMPHOCYTES % BY MANUAL COUNT 40.0 % Normal 24.0-44.0 The [facility] Comment on above: Performed By: #### ALAN MCCARTY ####[facility] PATHOLOGY [id number] [place], LYMPHOCYTES ABS BY MANUAL COUNT 0.32 K/uL Low 1.00-4.80 The [facility] Comment on above: Performed By: #### ALAN MCCARTY ####S PATHOLOGY [id number] [place], MACROCYTOSIS Slight Normal The [facility] Comment on above: Performed By: #### ALAN MCCARTY ####S PATHOLOGY [id number] [place], MONOCYTES % BY MANUAL COUNT 11.0 % Normal 2.0-11.0 The [facility] Comment on above: Performed By: ###ALAN DE LA CRUZ ####S PATHOLOGY [id number] [place], MONOCYTES ABS BY MANUAL COUNT 0.09 K/uL Low 0.20-1.00 The [facility] Comment on above: Performed By: #### ALAN MCCARTY ####S PATHOLOGY [id number] [place], NEUTROPHILS % BY MANUAL COUNT 36.0 % Normal 31.0-76.0 The [facility] Comment on above: Performed By: #### ALAN MCCARTY ####S PATHOLOGY [id number] [place], NEUTROPHILS ABS BY MANUAL COUNT 0.29 K/uL Low 1.50-8.00 The [facility] Comment on above: Performed By: #### ALAN MCCARTY ####[facility] PATHOLOGY [id number] [place], OVALOCYTES Few Normal The [facility] Comment on above: Performed By: ###ALAN DE LA CRUZ ####[facility] PATHOLOGY [id number] [place], POLYCHROMASIA Slight Normal The [facility] Comment on above: Performed By: #### C ALAN NAVARRETE ####S PATHOLOGY [id number] [place], REACTIVE LYMPH ABS BY MANUAL COUNT 0.02 K/uL Normal The [facility] Comment on above: Performed By: #### Antoinette NAVARRETE MDIFF ####S PATHOLOGY [id number] [place], REACTIVE LYMPHS % BY MANUAL COUNT 2 % Normal The [facility] Comment on above: Performed By: #### C ALAN NAVARRETE ####[facility] PATHOLOGY [id number] [place], [place], MRSA SCREENon 2022 MRSA DNA MCKENZIE+probe Ql (Unsp spec) CMR: No methicillin resistant Staphylococcus aureus isolated. Normal No methicillin resistant Staphylococcus aureus isolated. The [facility] Comment on above: Performed By: #### C MR ####[facility] [id number] [place], [place] No Panel InformationOrdered By: Elisa Zhang on 2022 Interpretation and review of laboratory results Abnormal [facility] No Panel Informationon 11-01 Interpretation and review of laboratory results Normal [facility] PHOSPHORUSon 2022 Phosphate [Mass/Vol] 3.5 mg/dL Normal 2.5-4.8 The [facility] Comment on above: Performed By: #### M G, PROCAL, PHOS, CH8, URIC ####S PATHOLOGY [id number] [place], Phosphate [Mass/Vol] 3.5 mg/dL 2.5 - 4.8 mg/dL [facility] PROCALCITONINon 2022 PROCALCITONIN 0.10 ng/mL Normal <0.50 The [facility] Comment on above: Result Comment: Proc alcitonin Concentrations < 0.50 ng/mL = Low Risk of severe sepsis and/or septic shockProcalcitonin Concentrations > 2.00 ng/mL = High Risk of severe sepsis and/or septic shockConcentrations under 0.50 ng/mL do not exclude local infections or systemic infections in their initial stages (e.g. under six hours from onset of illness). Procalcitonin concentrations between 0.50 and 2.00 ng/mL should be interpreted with consideration of the patient's history. In this range, it is recommended to retest Procalcitonin within 6 to 24 hours. Performed By: #### M G, PROCAL, PHOS, CH8, URIC ####S PATHOLOGY [id number] [place], [place], Interpretation and review of laboratory results Normal [facility] Procalcitonin IA [Mass/Vol] 0.10 ng/mL NINF - 0.50 ng/mL [facility] Comment on above: Procalcitonin Concen trations < 0.50 ng/mL = Low Risk of severe sepsis and/or septic shock Procalcitonin Concentrations > 2.00 ng/mL = High Risk of severe sepsis and/or septic shock Concentrations under 0.50 ng/mL do not exclude local infections or systemic infections in their initial stages (e.g. under six hours from onset of illness). Procalcitonin concentrations between 0.50 and 2.00 ng/mL should be interpreted with consideration of the patient's history. In this range, it is recommended to retest Procalcitonin within 6 to 24 hours. [facility] [place] [facility] Progress Noteson 2022 Secretary Of Police Authentication Interface Message Text Dr. Renae notified of critical Platelet count and WBC value of 36 read back critical results. New orders received. notified of critical wbc value of 0.8. read back critical results. New orders received. Normal The [facility] [place] [facility] Secretary Of Police Authentication Interface Message Text Normal The [facility] [place] [facility] Secretary Of Police Authentication Interface Message Text Normal The [facility] [place] [facility] URIC ACIDon 2022 Urate [Mass/Vol] 4.9 mg/dL Normal 2.0-7.3 The [facility] [place] [facility] Comment on above: Performed By: #### M G, PROCAL, PHOS, CH8, URIC ####S PATHOLOGY [id number] [place], Urate [Mass/Vol] 4.9 mg/dL 2.0 - 7.3 mg/dL [facility] VANCOMYCIN RANDOMon 11-02-19 23 VANC R 15.1 ug/mL Normal 5.0-40.0 The [facility] Comment on above: Performed By: #### V ANC R ####[facility] PATHOLOGY [id number] [place], [place], Interpretation and review of laboratory results Normal [facility] Vancomycin [Mass/Vol] 15.1 ug/mL 5.0 - 40.0 ug/ mL [facility] XR CHEST AP OR PA 1 VIEWon 0 2022 XR CHEST AP OR PA 1 VIEW Normal The [facility] Addendum Noteon 10-31-2022 Secretary Of Police Authentication Interface Message Text Encounter addended by: Michelle Gomes RN on: 10/31/2022 6:25 PM Actions taken: MAR administration accepted, Clinical Note Signed Normal [facility] Secretary Of Police Authentication Interface Message Text Encounter addended by: Michelle Gomes RN on: 10/31/2022 4:54 PM Actions taken: MAR administration accepted Normal [facility] Secretary Of Police Authentication Interface Message Text Encounter addended by: Leticia Holden RN on: 10/31/2022 4:44 PM Actions taken: Clinical Note Signed Normal The [facility] [place] [facility] Secretary Of Police Authentication Interface Message Text Encounter addended by: Katherine Miguel RN on: 10/31/2022 4:09 PM Actions taken: Visit diagnoses modified, Order list changed, Diagnosis association updated Normal [facility] Secretary Of Police Authentication Interface Message Text Encounter addended by: Leticia Holden RN on: 10/31/2022 4:08 PM Actions taken: MAR administration edited, MAR administration accepted, Clinical Note Signed Normal [facility] Secretary Of Police Authentication Interface Message Text Encounter addended by: Leticia Holden RN on: 10/31/2022 4:00 PM Actions taken: LDA properties accepted, MAR administration accepted Normal [facility] Secretary Of Police Authentication Interface Message Text Encounter addended by: Lara Smith MD on: 10/31/2022 3:52 PM Actions taken: Order list changed Normal The [facility] AdmissionCareon 10-31-2022 Secretary Of Police Authentication Interface Message Text Normal The [facility] [place] [facility] BASIC METABOLIC PANELon 10-08 Anion gap [Moles/Vol] 13 mmol/L Normal 10-20 The [facility] [place] [facility] Comment on above: Performed By: #### Law Pappas, CH8, HEPATIC ####[facility] PATHOLOGY [id number] [place], [place], Calcium [Mass/Vol] 9.2 mg/dL Normal 8.4-10.4 The [facility] [place] [facility] Comment on above: Performed By: #### Law Pappas, CH8, HEPATIC ####[facility] PATHOLOGY [id number] [place], [place], Chloride [Moles/Vol] 103 mmol/L Normal 97-111 The [facility] [place] [facility] Comment on above: Performed By: #### Law Pappas, CH8, HEPATIC ####[facility] PATHOLOGY [id number] [place], CO2 [Moles/Vol] 22 mmol/L Normal 21-30 The [facility] [place] [facility] Comment on above: Performed By: #### Law Pappas, CH8, HEPATIC ####[facility] PATHOLOGY [id number] [place], Creatinine [Mass/Vol] 1.27 mg/dL High 0.50-1.10 The [facility] [place] [facility] Comment on above: Performed By: #### Law Pappas, CH8, HEPATIC ####[facility] PATHOLOGY [id number] [place], ESTIMATED GFR (CKD-EPI) 48 mL/min/1.73sqm Low >=60 The [facility] [place] [facility] Comment on above: Result Comment: 2020 CKD EPI Equation using Creatinine without RaceComment: Estimated glomerular filtration rate (eGFR) is calculated without a race coefficient. Values should be interpreted in the context of the patient's full clinical presentation.Reference:1. Sanford C, Bijan M, Jazmyne TAVERA, et al.. A Unifying Approach for GFR Estimation: Recommendations of the NKF-ASN Task Force on Reassessing the Inclusion of Race in Diagnosing Kidney Disease. [place] Journal of Kidney Diseases 2021;79(2):268-88.e1.2. N Engl J Med 2021 Vol. 385 Issue 19 Pages 4735-0197 Performed By: #### Law Pappas CH8, HEPATIC ####S PATHOLOGY [id number] [place], [place], Glucose [Mass/Vol] 94 mg/dL Normal 80-116 The [facility] Comment on above: Performed By: #### Law Pappas CH8, HEPATIC ####S PATHOLOGY [id number] [place], [place], Potassium [Moles/Vol] 4.3 mmol/L Normal 3.3-5.3 The [facility] Comment on above: Performed By: #### FLACA Pierre, HEPATIC ####S PATHOLOGY [id number] [place], [place], Sodium [Moles/Vol] 134 mmol/L Low 135-148 The [facility] Comment on above: Performed By: #### FLACA Pierre, HEPATIC ####S PATHOLOGY [id number] [place], [place], Urea nitrogen [Mass/Vol] 17 mg/dL Normal 8-22 The [facility] Comment on above: Performed By: #### FLACA Pierre, HEPATIC ####[facility] PATHOLOGY [id number] [place], BLOOD CULTUREon 10-31-2022 Bacteria identified Cx Nom (Bld) C BLOOD: No Growth Normal The [facility] Comment on above: Performed By: #### C BLOOD ####[facility] Rrkbpvqpv7846 [place], [place] CBC WITH DIFFERENTIALon 10-08 Erythrocyte distribution width (RBC) [Ratio] 13.3 % Normal 11.5-14.5 The [facility] Comment on above: Performed By: #### Antoinette NAVARRETE MDIFF ####S PATHOLOGY [id number] [place], Hematocrit (Bld) [Volume fraction] 35.7 % Low 36.0-46.0 The [facility] Comment on above: Performed By: #### Antoinette NAVARRETE MDIFF ####S PATHOLOGY [id number] [place], Hemoglobin (Bld) [Mass/Vol] 12.1 g/dL Normal 12.0-15.0 The [facility] [place] [facility] Comment on above: Performed By: ###ALAN DE LA CRUZ ####Carlos PATHOLOGY [id number] [place], [place], MCH (RBC) [Entitic mass] 34.8 pg High 26.0-34.0 The [facility] [place] [facility] Comment on above: Performed By: #### ALAN MCCARTY ####S PATHOLOGY [id number] [place], MCHC (RBC) [Mass/Vol] 33.9 g/dL Normal 32.0-35.9 The [facility] Comment on above: Performed By: #### ALAN MCCARTY ####Carlos PATHOLOGY [id number] [place], MCV (RBC) [Entitic vol] 103 fL High 80-100 The [facility] [place] [facility] Comment on above: Performed By: #### ALAN MCCARTY ####[facility] PATHOLOGY [id number] [place], MONOCYTE DISTRIBUTION WIDTH Normal The [facility] Comment on above: Performed By: #### ALAN MCCARTY ####[facility] PATHOLOGY [id number] [place], Platelet mean volume (Bld) [Entitic vol] 7.6 fL Normal 7.5-11.2 The [facility] [place] [facility] Comment on above: Performed By: ###ALAN ED LA CRUZ ####[facility] PATHOLOGY [id number] [place], Platelets (Bld) [#/Vol] 41 10*3/uL Critically low 150-400 The [facility] [place] [facility] Comment on above: Performed By: #### ALAN MCCARTY ####S PATHOLOGY [id number] [place], RBC (Bld) [#/Vol] 3.48 10*6/uL Low 4.00-5.20 The [facility] [place] [facility] Comment on above: Performed By: #### ALAN MCCARTY ####[facility] PATH[facility] [id number] [place], WBC (Bld) [#/Vol] 1.0 10*3/uL Critically low 4.5-11.5 Th e [facility] Comment on above: Performed By: #### ALAN MCCARTY ####[facility] PATHOLOGY [id number] [place], Care Plan Noteon 10-31-2022 Secretary Of Police Authentication Interface Message Text Normal The [facility] H AND Ryne 10-31-2022 Secretary Of Police Authentication Interface Message Text Normal The [facility] HEPATIC FUNCTION PANELon Albumin [Mass/Vol] 4.2 g/dL Normal 3.4-5.1 The [facility] Comment on above: Performed By: #### FLACA Pierre, HEPATIC ####S PATHOLOGY [id number] [place], [place], ALK 87 IU/L Normal 40-200 The [facility] Comment on above: Performed By: #### FLACA Pierre, HEPATIC ####S PATHOLOGY [id number] [place], ALT [Catalytic activity/Vol] 6 U/L Low 7-40 The [facility] Comment on above: Performed By: #### FLACA Pierre, HEPATIC ####[facility] PATHOLOG[facility] [id number] [place], AST [Catalytic activity/Vol] 11 U/L Normal 7-40 The [facility] Comment on above: Performed By: #### FLACA Pierre, HEPATIC ####[facility] PATHOLOGY [id number] [place], Bilirubin [Mass/Vol] 0.7 mg/dL Normal 0.1-1.5 The [facility] Comment on above: Performed By: #### FLACA Pierre, HEPATIC ####[facility] PATHOLOGY [id number] [place], Bilirubin.direct [Mass/Vol] 0.16 mg/dL Normal 0.10-0.30 The [facility] Comment on above: Performed By: #### Law Pappas CH8, HEPATIC ####[facility] PATHOLOG[facility] [id number] [place], Protein [Mass/Vol] 6.5 g/dL Normal 5.7-8.1 The [facility] Comment on above: Performed By: #### FLACA Pierre, HEPATIC ####[facility] PATHOLOGY [id number] [place], MAGNESIUMon 10-31-2022 Magnesium [Mass/Vol] 1.6 mg/dL Normal 1.6-2.8 The [facility] Comment on above: Performed By: #### Law Pappas CH8, HEPATIC ####[facility] PATHOLOGY [id number] [place], MANUAL DIFF AND MORPHon 10-08 ATYPICAL LYMPHS % BY MANUAL COUNT 1 % Normal The [facility] Comment on above: Performed By: #### ALAN MCCARTY ####[facility] PATHOLOGY [id number] [place], ATYPICAL LYMPHS ABS BY MANUAL COUNT 0.01 K/uL Normal The [facility] Comment on above: Performed By: ###ALAN DE LA CRUZ ####[facility] PATHOLOGY [id number] [place], BASOPHILS % BY MANUAL COUNT 1.0 % Normal <=1.9 The [facility] Comment on above: Performed By: #### ALAN MCCARTY ####[facility] PATHOLOGY [id number] [place], BASOPHILS ABS BY MANUAL COUNT 0.01 K/uL Normal 0.00-0.20 The [facility] Comment on above: Performed By: ###ALAN DE LA CRUZ ####[facility] PATHOLOGY [id number] [place], CELLS COUNTED TOTAL # IN BLOOD 100 Normal The [facility] Comment on above: Performed By: #### ALAN MCCARTY ####[facility] PATHOLOGY [id number] [place], EOSINOPHILS % BY MANUAL COUNT 5.0 % High 0.1-4.0 The [facility] Comment on above: Performed By: #### ALAN MCCARTY ####S PATHOLOGY [id number] [place], EOSINOPHILS ABS BY MANUAL COUNT 0.05 K/uL Normal 0.00-0.70 The [facility] Comment on above: Performed By: #### ALAN MCCARTY ####[facility] PATHOLOGY [id number] [place], LYMPHOCYTES % BY MANUAL COUNT 44.0 % Normal 24.0-44.0 The [facility] Comment on above: Performed By: #### ALAN MCCARTY ####S PATHOLOGY [id number] [place], LYMPHOCYTES ABS BY MANUAL COUNT 0.44 K/uL Low 1.00-4.80 The [facility] Comment on above: Performed By: #### ALAN MCCARTY ####S PATHOLOGY [id number] [place], MACROCYTOSIS Slight Normal The [facility] Comment on above: Performed By: #### ALAN MCCARTY ####[facility] PATHOLOGY [id number] [place], MONOCYTES % BY MANUAL COUNT 13.0 % High 2.0-11.0 The [facility] Comment on above: Performed By: #### ALAN MCCARTY ####S PATHOLOGY [id number] [place], MONOCYTES ABS BY MANUAL COUNT 0.13 K/uL Low 0.20-1.00 The [facility] Comment on above: Performed By: #### ALAN MCCARTY ####S PATHOLOGY [id number] [place], [place], NEUTROPHILS % BY MANUAL COUNT 36.0 % Normal 31.0-76.0 The [facility] Comment on above: Performed By: #### ALAN MCCARTY ####[facility] PATH[facility] [id number] [place], [place], NEUTROPHILS ABS BY MANUAL COUNT 0.36 K/uL Low 1.50-8.00 [facility] Comment on above: Performed By: #### C MD LANDONIFF ####[facility] PATH[facility] [id number] [place], [place], PATHOLOGY REVIEWon PATHOLOGIST SLIDE REVIEW Severe leukocytopenia and thrombocytopenia likely secondary to therapy effect. No blast cells, dysplastic changes or platelets clumps noted. Normal The [facility] [facility] Comment on above: Order Comment: Elect ronically Signed Out by Rhonda Ortiz MD on 2022.I certify that I personally conducted the diagnostic evaluation of the above specimen(s) and have rendered the final diagnosis(es). Performed By: #### P R ####[facility] PATHOLOGY [id number] [place], [place], Progress Noteson 10-31-2022 Secretary Of Police Authentication Interface Message Text Normal The [facility] Secretary Of Police Authentication Interface Message Text Normal The [facility] [employer] [facility] Secretary Of Police Authentication Interface Message Text Normal The [facility] Secretary Of Police Authentication Interface Message Text Normal The [facility] Telephone Encounteron 2022 Secretary Of Police Authentication Interface Message Text Patient was identified by name and date of . Brandon Cobos RN Pt wbc 1 plt 41. Critical results read to DR Smith, no intervention at this time Brandon Cobos RN Normal The [facility] Secretary Of [employer] Authentication Interface Message Text Normal The [facility] Secretary Of Police Authentication Interface Message Text Situation: Hard time breathing Background: pt called in to speak to nurse, pt on way to radiation and is demonstrating Assessment: pt sent to triage Recommendation: pt sent to triage Normal The [facility] URINALYSIS WITH REFLEX CULTU RE PERFORMABLEon 10-31-2022 Glucose Ql (U) Negative Normal Negative The [facility] Comment on above: Order Comment: A neg ative leukocyte esterase AND negative nitrite test or absence of pyuria (urine WBC count <= 5-10) make a UTI (urinary tract infection) very unlikely in a non-neutropenic adult (<=5% likelihood in many studies). A positive leukocyte esterase, nitrite and/or pyuria is a nonspecific result. This can be seen in conditions other than a UTI e.g. asymptomatic bacteriuria, gynecologic infections, sexually transmitted infections, and noninfectious conditions (positive predictive value for UTI around 50%) Performed By: #### C URINE ####[facility] Zqarkycte5522 [place], [place]#### urinalysiswcul ####[facility] PATHOLOGY [id number] [place] [address] Protein (U) [Mass/Vol] 10 mg/dL Normal Negative [facility] Comment on above: Order Comment: A neg ative leukocyte esterase AND negative nitrite test or absence of pyuria (urine WBC count <= 5-10) make a UTI (urinary tract infection) very unlikely in a non-neutropenic adult (<=5% likelihood in many studies). A positive leukocyte esterase, nitrite and/or pyuria is a nonspecific result. This can be seen in conditions other than a UTI e.g. asymptomatic bacteriuria, gynecologic infections, sexually transmitted infections, and noninfectious conditions (positive predictive value for UTI around 50%) Performed By: #### C URINE ####[facility] Tpmramhdn3364 [place], [place]#### urinalysiswcul ####[facility] PATHOLOGY [id number] [place] [address] SQUAMOUS EPITHELIAL 0-2 Normal 0-10 [facility] Comment on above: Order Comment: A neg ative leukocyte esterase AND negative nitrite test or absence of pyuria (urine WBC count <= 5-10) make a UTI (urinary tract infection) very unlikely in a non-neutropenic adult (<=5% likelihood in many studies). A positive leukocyte esterase, nitrite and/or pyuria is a nonspecific result. This can be seen in conditions other than a UTI e.g. asymptomatic bacteriuria, gynecologic infections, sexually transmitted infections, and noninfectious conditions (positive predictive value for UTI around 50%) Performed By: #### C URINE ####[facility] Kyoxoigba1184 [place], [place]#### urinalysiswcul ####[facility] PATHOLOGY [id number] [place] [address] U APPEAR Clear Normal Clear [facility] Comment on above: Order Comment: A neg ative leukocyte esterase AND negative nitrite test or absence of pyuria (urine WBC count <= 5-10) make a UTI (urinary tract infection) very unlikely in a non-neutropenic adult (<=5% likelihood in many studies). A positive leukocyte esterase, nitrite and/or pyuria is a nonspecific result. This can be seen in conditions other than a UTI e.g. asymptomatic bacteriuria, gynecologic infections, sexually transmitted infections, and noninfectious conditions (positive predictive value for UTI around 50%) Performed By: #### C URINE ####[facility] Jfnljxwao8285 [place], [place]#### urinalysiswcul ####[facility] PATHOLOGY [id number] [place] [address], U BACTERIA Few Normal [facility] Comment on above: Order Comment: A neg ative leukocyte esterase AND negative nitrite test or absence of pyuria (urine WBC count <= 5-10) make a UTI (urinary tract infection) very unlikely in a non-neutropenic adult (<=5% likelihood in many studies). A positive leukocyte esterase, nitrite and/or pyuria is a nonspecific result. This can be seen in conditions other than a UTI e.g. asymptomatic bacteriuria, gynecologic infections, sexually transmitted infections, and noninfectious conditions (positive predictive value for UTI around 50%) Performed By: #### C URINE ####[facility] Macqdlpms1053 [place], [place]#### urinalysiswcul ####[facility] PATHOLOGY [id number] [place] [address], U BILI Negative Normal Negative [facility] Comment on above: Order Comment: A neg ative leukocyte esterase AND negative nitrite test or absence of pyuria (urine WBC count <= 5-10) make a UTI (urinary tract infection) very unlikely in a non-neutropenic adult (<=5% likelihood in many studies). A positive leukocyte esterase, nitrite and/or pyuria is a nonspecific result. This can be seen in conditions other than a UTI e.g. asymptomatic bacteriuria, gynecologic infections, sexually transmitted infections, and noninfectious conditions (positive predictive value for UTI around 50%) Performed By: #### C URINE ####[facility] Dflgghmdj0401 [place], [place]#### urinalysiswcul ####[facility] PATHOLOGY [id number] [place], [place], U BLOOD Trace Abnormal Negative [facility] [place] [facility] Comment on above: Order Comment: A neg ative leukocyte esterase AND negative nitrite test or absence of pyuria (urine WBC count <= 5-10) make a UTI (urinary tract infection) very unlikely in a non-neutropenic adult (<=5% likelihood in many studies). A positive leukocyte esterase, nitrite and/or pyuria is a nonspecific result. This can be seen in conditions other than a UTI e.g. asymptomatic bacteriuria, gynecologic infections, sexually transmitted infections, and noninfectious conditions (positive predictive value for UTI around 50%) Performed By: #### C URINE ####[facility] Uhlwbukab4033 [place], [place]#### urinalysiswcul ####[facility] PATHOLOGY [id number] [place], [place], U COLOR Light Yellow Normal Colorless [facility] [place] [facility] Comment on above: Order Comment: A neg ative leukocyte esterase AND negative nitrite test or absence of pyuria (urine WBC count <= 5-10) make a UTI (urinary tract infection) very unlikely in a non-neutropenic adult (<=5% likelihood in many studies). A positive leukocyte esterase, nitrite and/or pyuria is a nonspecific result. This can be seen in conditions other than a UTI e.g. asymptomatic bacteriuria, gynecologic infections, sexually transmitted infections, and noninfectious conditions (positive predictive value for UTI around 50%) Performed By: #### C URINE ####[facility] Rafyjtwcn1909 [place], [place]#### urinalysiswcul ####[facility] PATHOLOGY [id number] [place], [place] U KETONE Negative Normal Negative [facility] [place] [employer] [facility] Comment on above: Order Comment: A neg ative leukocyte esterase AND negative nitrite test or absence of pyuria (urine WBC count <= 5-10) make a UTI (urinary tract infection) very unlikely in a non-neutropenic adult (<=5% likelihood in many studies). A positive leukocyte esterase, nitrite and/or pyuria is a nonspecific result. This can be seen in conditions other than a UTI e.g. asymptomatic bacteriuria, gynecologic infections, sexually transmitted infections, and noninfectious conditions (positive predictive value for UTI around 50%) Performed By: #### C URINE ####[facility] Pdpvrqlqu5756 [place], [place]#### urinalysiswcul ####[facility] PATHOLOGY [id number] [place], [place], U LEUK Positive Abnormal Negative The [facility] Comment on above: Order Comment: A neg ative leukocyte esterase AND negative nitrite test or absence of pyuria (urine WBC count <= 5-10) make a UTI (urinary tract infection) very unlikely in a non-neutropenic adult (<=5% likelihood in many studies). A positive leukocyte esterase, nitrite and/or pyuria is a nonspecific result. This can be seen in conditions other than a UTI e.g. asymptomatic bacteriuria, gynecologic infections, sexually transmitted infections, and noninfectious conditions (positive predictive value for UTI around 50%) Result Comment: Norm al urine specimens will not produce a positive reaction. Small amounts of leukocyte esterase, causing a positive reaction should be repeated, using a fresh urine specimen, from the same patient. Positive results require further testing for pyuria. Performed By: #### C URINE ####[facility] Pnhdsbheh5940 [place], [place]#### urinalysiswcul ####[facility] PATHOLOGY [id number] [place] [address], U NITRITE Negative Normal Negative The [facility] Comment on above: Order Comment: A neg ative leukocyte esterase AND negative nitrite test or absence of pyuria (urine WBC count <= 5-10) make a UTI (urinary tract infection) very unlikely in a non-neutropenic adult (<=5% likelihood in many studies). A positive leukocyte esterase, nitrite and/or pyuria is a nonspecific result. This can be seen in conditions other than a UTI e.g. asymptomatic bacteriuria, gynecologic infections, sexually transmitted infections, and noninfectious conditions (positive predictive value for UTI around 50%) Performed By: #### C URINE ####[facility] Yfygqfjlg6734 [place], [place]#### urinalysiswcul ####[facility] PATHOLOGY [id number] [place], [place], U PH 6.0 Normal 5.0-8.0 [facility] Comment on above: Order Comment: A neg ative leukocyte esterase AND negative nitrite test or absence of pyuria (urine WBC count <= 5-10) make a UTI (urinary tract infection) very unlikely in a non-neutropenic adult (<=5% likelihood in many studies). A positive leukocyte esterase, nitrite and/or pyuria is a nonspecific result. This can be seen in conditions other than a UTI e.g. asymptomatic bacteriuria, gynecologic infections, sexually transmitted infections, and noninfectious conditions (positive predictive value for UTI around 50%) Performed By: #### C URINE ####[facility] Uhrdhbtsv6185 [place], [place]#### urinalysiswcul ####[facility] PATHOLOGY [id number] [place], [place], U RBC 3-5 Abnormal 0-2 The [facility] [place] [place] [facility] Comment on above: Order Comment: A neg ative leukocyte esterase AND negative nitrite test or absence of pyuria (urine WBC count <= 5-10) make a UTI (urinary tract infection) very unlikely in a non-neutropenic adult (<=5% likelihood in many studies). A positive leukocyte esterase, nitrite and/or pyuria is a nonspecific result. This can be seen in conditions other than a UTI e.g. asymptomatic bacteriuria, gynecologic infections, sexually transmitted infections, and noninfectious conditions (positive predictive value for UTI around 50%) Performed By: #### C URINE ####[facility] Mtfyqpfve8809 [place], [place]#### urinalysiswcul ####[facility] PATHOLOGY [id number] [place], [place], U SG 1.012 Normal <=1.030 The [facility] Comment on above: Order Comment: A neg ative leukocyte esterase AND negative nitrite test or absence of pyuria (urine WBC count <= 5-10) make a UTI (urinary tract infection) very unlikely in a non-neutropenic adult (<=5% likelihood in many studies). A positive leukocyte esterase, nitrite and/or pyuria is a nonspecific result. This can be seen in conditions other than a UTI e.g. asymptomatic bacteriuria, gynecologic infections, sexually transmitted infections, and noninfectious conditions (positive predictive value for UTI around 50%) Performed By: #### C URINE ####[facility] Veoiyqhft4152 [place], [place]#### urinalysiswcul ####S PATHOLOGY [id number] [place] [address] U UROBILI Negative Normal Negative The [facility] Comment on above: Order Comment: A neg ative leukocyte esterase AND negative nitrite test or absence of pyuria (urine WBC count <= 5-10) make a UTI (urinary tract infection) very unlikely in a non-neutropenic adult (<=5% likelihood in many studies). A positive leukocyte esterase, nitrite and/or pyuria is a nonspecific result. This can be seen in conditions other than a UTI e.g. asymptomatic bacteriuria, gynecologic infections, sexually transmitted infections, and noninfectious conditions (positive predictive value for UTI around 50%) Performed By: #### C URINE ####[facility] [address] [place], [place] [address]#### urinalysiswcul ####S PATHOLOGY OZAAZRHKEU[address] [place] [address] U WBC 3-5 Abnormal 0-2 The [facility] Comment on above: Order Comment: A neg ative leukocyte esterase AND negative nitrite test or absence of pyuria (urine WBC count <= 5-10) make a UTI (urinary tract infection) very unlikely in a non-neutropenic adult (<=5% likelihood in many studies). A positive leukocyte esterase, nitrite and/or pyuria is a nonspecific result. This can be seen in conditions other than a UTI e.g. asymptomatic bacteriuria, gynecologic infections, sexually transmitted infections, and noninfectious conditions (positive predictive value for UTI around 50%) Performed By: #### C URINE ####[facility] Typlprxya2992 [place], [place]#### urinalysiswcul ####S PATHOLOGY [id number] [place] [address] URINE CULTUREon 10-31-2022 Bacteria identified Cx Nom (U) C URINE: Positive Culture Report ESCHERICHIA COLI 10,000-50,000 CFU/mL Escherichia coli Normal The [facility] Comment on above: Order Comment: 1,000 - 10,000 CFU/ml No significant growth; skin/urogenital contamination present. Performed By: #### C URINE ####[facility] Xjqmzbedc2342 [place], [place]#### urinalysiswcul ####[facility] PATHOLOGY [id number] [place], [place], HARI Normal The [facility] Comment on above: Order Comment: 1,000 - 10,000 CFU/ml No significant growth; skin/urogenital contamination present. Performed By: #### C URINE ####[facility] [address]jweqh6[address] [place], [place]#### urinalysiswcul ####[facility] PATHOLOGY [id number] [place], [place], XR Chest Single viewon 10-31 EXAMINATION: XR CHEST AP OR PA 1 VIEW 10/31/2022 09:02 PM CLINICAL HISTORY: Cough; Fever ASSOCIATED DIAGNOSIS: Fever, unspecified fever cause ORDERING PROVIDER: SOULEYMANE WHITLEY TECHNPERLA NOTE: COMPARISON: CT CHEST/ABD/PELVIS W/ CONTRAST 10/03/2022, 2:29 PM FINDINGS: Lines, tubes, and devices: None. Lungs and pleura: Emphysematous changes are again noted without focal pulmonary consolidation. No pleural effusion or pneumothorax. Cardiomediastinal silhouette: The cardiomediastinal silhouette is prominent in size and likely exaggerated by AP technique. Musculoskeletal: Degenerative changes in the bilateral acromioclavicular joints. 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 MACRO: None RADIOLOGY Anand Lilly MD - 10/31/2022 EXAMINATION: XR CHEST AP OR PA 1 VIEW 10/31/2022 09:02 PM CLINICAL HISTORY: Cough; Fever ASSOCIATED DIAGNOSIS: Fever, unspecified fever cause ORDERING PROVIDER: SOULEYMANE WHITLEY TECHNPERLA NOTE: COMPARISON: CT CHEST/ABD/PELVIS W/ CONTRAST 10/03/2022, 2:29 PM FINDINGS: Lines, tubes, and devices: None. Lungs and pleura: Emphysematous changes are again noted without focal pulmonary consolidation. No pleural effusion or pneumothorax. Cardiomediastinal silhouette: The cardiomediastinal silhouette is prominent in size and likely exaggerated by AP technique. Musculoskeletal: Degenerative changes in the bilateral acromioclavicular joints. 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 MACRO: None [facility] Study observation (narrative) [facility] XR Chest Single viewOrdered By: Anand Lilly on 10-31-2022 Vocab Work Phone: Progress Noteson 10-25-2022 Secretary Of Police Authentication Interface Message Text This encounter was opened in error. Patient was a No-Show. Please disregard. Patient left without being seen. Normal The [facility] Progress Noteson 10-19-2022 Secretary Of Police Authentication Interface Message Text Normal [facility] Secretary Of Police Authentication Interface Message Text .Patient was identified by name and date of . Alida Cano .Patient at risk for falls:No Falls Risk protocol implemented: No Normal [facility] Addendum Noteon 10-16-2022 Secretary Of Police Authentication Interface Message Text Encounter addended by: Ky Vegas APRN-CNS on: 10/16/2022 5:00 PM Actions taken: Clinical Note Signed Normal [facility] Patient Instructionson 10-16 Secretary Of Police Authentication Interface Message Text Normal [facility] Progress Noteson 10-16-2022 Secretary Of Police Authentication Interface Message Text Normal [facility] Secretary Of Police Authentication Interface Message Text Normal [facility] Secretary Of Police Authentication Interface Message Text Normal [facility] Progress Noteson 10-12-2022 Secretary Of Police Authentication Interface Message Text Normal [facility] Secretary Of Police Authentication Interface Message Text Xeloda prescription on file and can be filled here at our [facility] with a $11.16 co-pay. 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 Thank you for this referral, Naheed Vinson CPhT Normal The [facility] Telephone Encounteron 2022 Secretary Of Police Authentication Interface Message Text Patient called for Mychart help. Provided patient with her mychart activation code. Jennifer Nash RN, BSN, MEd, CHFN, RN-, [facility] [employer] [facility] [phone] Normal The [facility] Secretary [employer] Police Authentication Interface Message Text Left vm with appts. Tried calling several times. Normal The [facility] Progress Noteson 10-06-2022 Secretary Of Police Authentication Interface Message Text Normal The [facility] [facility] Secretary Of Police Authentication Interface Message Text Normal [facility] BASIC METABOLIC PANELon 09-08 Anion gap [Moles/Vol] 12 mmol/L Normal 10-20 The [facility] Comment on above: Performed By: #### FLACA HERNANDEZ, MG ####[facility] [id number] [place], [place], Calcium [Mass/Vol] 9.8 mg/dL Normal 8.4-10.4 The [facility] Comment on above: Performed By: #### FLACA HERNANDEZ, MG ####[facility] [id number] [place], [place], Chloride [Moles/Vol] 106 mmol/L Normal 97-111 The [facility] Comment on above: Performed By: #### FLACA HERNANDEZ, MG ####[facility] [id number] [place], [place], CO2 [Moles/Vol] 26 mmol/L Normal 21-30 The [facility] Comment on above: Performed By: #### FLACA HERNANDEZ, MG ####[facility] [id number] [place], [place], Creatinine [Mass/Vol] 1.13 mg/dL High 0.50-1.10 [facility] [place] [facility] Comment on above: Performed By: #### FLACA HERNANDEZ, MG ####[facility] [id number] [place], [place], ESTIMATED GFR (CKD-EPI) 55 mL/min/1.73sqm Low >=60 The [facility] Comment on above: Result Comment: 2020 CKD EPI Equation using Creatinine without RaceComment: Estimated glomerular filtration rate (eGFR) is calculated without a race coefficient. Values should be interpreted in the context of the patient's full clinical presentation.Reference:1. Sanford C, Bijan M, Jazmyne DC, et al.. A Unifying Approach for GFR Estimation: Recommendations of the NKF-ASN Task Force on Reassessing the Inclusion of Race in Diagnosing Kidney Disease. [place] Journal of Kidney Diseases 202;79(2):268-88.e1.2. N Engl J Med 1 Vol. 385 Issue 19 Pages 8280-4039 Performed By: #### FLACA HERNANDEZ, MG ####[facility] [id number] [place], [place], Glucose [Mass/Vol] 90 mg/dL Normal 80-116 [facility] [place] [facility] Comment on above: Performed By: #### FLACA HERNANDEZ, MG ####[facility] PATH[facility] [id number] [place], [place], Potassium [Moles/Vol] 5.4 mmol/L High 3.3-5.3 [facility] [place] [facility] Comment on above: Performed By: #### FLACA HERNANDEZ, MG ####[facility] PATH[facility] [id number] [place], [place], Sodium [Moles/Vol] 139 mmol/L Normal 135-148 [facility] [place] [facility] Comment on above: Performed By: #### FLACA HERNANDEZ, MG ####[facility] [id number] [place], [place], Urea nitrogen [Mass/Vol] 21 mg/dL Normal 8-22 [facility] [place] [place] [facility] Comment on above: Performed By: #### FLACA HERNANDEZ, MG ####S PATHOLOGY [id number] [place], [place], Basic metabolic 2000 panelon 10-03-2022 Anion gap [Moles/Vol] 12 mmol/L 10 - 20 [facility] Calcium [Mass/Vol] 9.8 mg/dL 8.4 - 10.4 mg/dL [facility] Chloride [Moles/Vol] 106 mmol/L 97 - 111 mmol/L [facility] CO2 [Moles/Vol] 26 mmol/L 21 - 30 mmol/L [facility] Creatinine [Mass/Vol] 1.13 mg/dL High 0.50 - 1.10 mg/dL [facility] GFR/1.73 sq M.predicted MDRD (S/P/Bld) [Vol rate/Area] 55 mL/min/{1.73_m2} Low - PINF [facility] Comment on above: 2020 CKD EPI Equatio n using Creatinine without Race Comment: Estimated glomerular filtration rate (eGFR) is calculated without a race coefficient. Values should be interpreted in the context of the patient's full clinical presentation. Reference: 1. Sanford C, Bijan M, Jazmyne TAVERA, et al.. A Unifying Approach for GFR Estimation: Recommendations of the NKF-ASN Task Force on Reassessing the Inclusion of Race in Diagnosing Kidney Disease. [place] Journal of Kidney Diseases 202;79(2):268-88.e1. 2. N Engl J Med 2020 Vol. 385 Issue 19 Pages 4201-4000 Glucose [Mass/Vol] 90 mg/dL 80 - 116 mg/dL [facility] Interpretation and review of laboratory results Abnormal [facility] Potassium [Moles/Vol] 5.4 mmol/L High 3.3 - 5.3 mmol /L [facility] Sodium [Moles/Vol] 139 mmol/L 135 - 148 mmol/L [facility] Urea nitrogen [Mass/Vol] 21 mg/dL 8 - 22 mg/dL [facility] CBC WITH DIFFERENTIALon 09-08 Basophils (Bld) [#/Vol] 0.05 10*3/uL Normal 0.00-0.20 [facility] [place] [facility] Comment on above: Performed By: #### C BCDSAT ####S PATHOLOGY [id number] [place], [place], Basophils/100 WBC (Bld) 0.8 % Normal <=1.9 The [facility] System Comment on above: Performed By: #### C BCDSAT ####S PATHOLOGY [id number] [place], [place], Eosinophils (Bld) [#/Vol] 0.18 10*3/uL Normal 0.00-0.70 The [facility] [place] [facility] Comment on above: Performed By: #### C BCDSAT ####S PATHOLOGY [id number] [place], [place], Eosinophils/100 WBC (Bld) 2.8 % Normal 0.1-4.0 [facility] Comment on above: Performed By: #### C RICHARAT ####[facility] PATHOLOGY [id number] [place], [place], Erythrocyte distribution width (RBC) [Ratio] 14.0 % Normal 11.5-14.5 [facility] Comment on above: Performed By: #### C RICHARAT ####[facility] PATHOLOGY [id number] [place] [address], Hematocrit (Bld) [Volume fraction] 45.7 % Normal 36.0-46.0 [facility] Comment on above: Performed By: #### C RICHARAT ####[facility] PATHOLOGY [id number] [place] [address], Hemoglobin (Bld) [Mass/Vol] 15.5 g/dL High 12.0-15.0 [facility] Comment on above: Performed By: #### C RICHARAT ####[facility] PATHOLOGY [id number] [place] [address], Lymphocytes (Bld) [#/Vol] 1.75 10*3/uL Normal 1.00-4.80 The [facility] [place] [facility] Comment on above: Performed By: #### C RICHARAT ####[facility] PATHOLOGY [id number] [place], Lymphocytes/100 WBC (Bld) 27.0 % Normal 24.0-44.0 The [facility] [place] [facility] Comment on above: Performed By: #### C RICHARAT ####S PATHOLOGY [id number] [place], [place], MCH (RBC) [Entitic mass] 35.1 pg High 26.0-34.0 [facility] [place] [facility] Comment on above: Performed By: #### C RICHARAT ####S PATHOLOGY [id number] [place], [place], MCHC (RBC) [Mass/Vol] 33.8 g/dL Normal 32.0-35.9 The [facility] [place] [facility] Comment on above: Performed By: #### C BCDSAT ####S PATHOLOGY [id number] [place], [place], MCV (RBC) [Entitic vol] 104 fL High 80-100 [facility] Comment on above: Performed By: #### Antoinette DALTONDSAT ####[facility] PATHOLOGY [id number] [place], [place], MONOCYTE DISTRIBUTION WIDTH Normal [facility] Comment on above: Performed By: #### Antoinette MCQUEENAT ####[facility] PATHOLOGY [id number] [place], [place], Monocytes (Bld) [#/Vol] 0.52 10*3/uL Normal 0.20-1.00 [facility] Comment on above: Performed By: #### Antoinette MCQUEENAT ####[facility] PATHOLOGY [id number] [place], Monocytes/100 WBC (Bld) 8.1 % Normal 2.0-11.0 [facility] Comment on above: Performed By: #### Antoinette MCQUEENAT ####[facility] PATHOLOGY [id number] [place], [place], Neutrophils (Bld) [#/Vol] 3.97 10*3/uL Normal 1.50-8.00 The [facility] Comment on above: Performed By: #### Antoinette MCQUEENAT ####[facility] PATHOLOGY [id number] [place], Neutrophils/100 WBC (Bld) 61.3 % Normal 31.0-76.0 The [facility] Comment on above: Performed By: #### Antoinette MCQUEENAT ####S PATHOLOGY [id number] [place], [place], Platelet mean volume (Bld) [Entitic vol] 8.4 fL Normal 7.5-11.2 [facility] Comment on above: Performed By: #### Antoinette BCGINAAT ####S PATHOLOGY [id number] [place], Platelets (Bld) [#/Vol] 149 10*3/uL Low 150-400 [facility] Comment on above: Performed By: #### Antoinette BCGINAAT ####[facility] PATHOLOGY [id number] [place], RBC (Bld) [#/Vol] 4.40 10*6/uL Normal 4.00-5.20 The [facility] System Comment on above: Performed By: #### C BCDSAT ####[facility] PATHOLOGY [id number] [place], WBC (Bld) [#/Vol] 6.5 10*3/uL Normal 4.5-11.5 The [facility] System Comment on above: Performed By: #### C BCDSAT ####[facility] PATHOLOGY [id number] [place], Basophils (Bld) [#/Vol] 0.05 10*3/uL 0.00 - 0.20 K/uL [facility] Basophils/100 WBC (Bld) 0.8 % NINF - 1.9 % [facility] Eosinophils (Bld) [#/Vol] 0.18 10*3/uL 0.00 - 0.70 K/uL [facility] Eosinophils/100 WBC (Bld) 2.8 % 0.1 - 4.0 % [facility] Erythrocyte distribution width (RBC) [Ratio] 14.0 % 11.5 - 14.5 % [facility] Hematocrit (Bld) [Volume fraction] 45.7 % 36.0 - 46.0 % [facility] Hemoglobin (Bld) [Mass/Vol] 15.5 g/dL High 12.0 - 15.0 g/dL [facility] Interpretation and review of laboratory results Abnormal [facility] Lymphocytes (Bld) [#/Vol] 1.75 10*3/uL 1.00 - 4.80 K/uL [facility] Lymphocytes/100 WBC (Bld) 27.0 % 24.0 - 44.0 % [facility] MCH (RBC) [Entitic mass] 35.1 pg High 26.0 - 34.0 pg [facility] MCHC (RBC) [Mass/Vol] 33.8 g/dL 32.0 - 35.9 g/ dL [facility] MCV (RBC) [Entitic vol] 104 fL High 80 - 100 fL [facility] Monocyte distribution width Auto (Bld) [Entitic vol] [facility] Monocytes (Bld) [#/Vol] 0.52 10*3/uL 0.20 - 1.00 K/uL [facility] Monocytes/100 WBC (Bld) 8.1 % 2.0 - 11.0 % [facility] Neutrophils (Bld) [#/Vol] 3.97 10*3/uL 1.50 - 8.00 K/uL [facility] Neutrophils/100 WBC (Bld) 61.3 % 31.0 - 76.0 % [facility] Platelet mean volume (Bld) [Entitic vol] 8.4 fL 7.5 - 11.2 fL [facility] Platelets (Bld) [#/Vol] 149 10*3/uL Low 150 - 400 K/uL [facility] RBC (Bld) [#/Vol] 4.40 10*6/uL [facility] WBC (Bld) [#/Vol] 6.5 10*3/uL 4.5 - 11.5 K/uL [facility] CT CHEST/ABD/PELVIS W/ CONTR Kiko 10-03-2022 CT CHEST/ABD/PELVIS W/ CONTRAST Normal The [facility] System CT Chest and Abdomen and Pel vis W contrast IVOrdered By: Boris Taylor on 10-03-2022 CT DLP 818.13 (mGy.cm) [facility] Work Phone: CT Series Topogram,C/A/P ,KIDNEY,BLADDER [facility] Work Phone: CTDI VOL 0.10 (mGy),6.77 (mGy),7.11 (mGy),6.44 (mGy) [facility] Work Phone: PHANTOM TYPE IEC Body Dosimetry Phantom,IEC Body Dosimetry Phantom,IEC Body Dosimetry Phantom,IEC Body Dosimetry Phantom [facility] Work Phone: [facility] Work Phone: CT Chest and Abdomen and Pel vis W contrast Crystal 10-03-2022 EXAMINATION: CT CHEST/ABD/PELVIS W/ CONTRAST 10/03/2022 02:29 PM CLINICAL HISTORY: staging anal cancer ASSOCIATED DIAGNOSIS: Anal cancer (HCC) ORDERING PROVIDER: [employer] NOTE: COMPARISON: None TECHNIQUE: Contiguous axial images were obtained through the chest abdomen and pelvis from the level of the thoracic inlet through the pubic symphysis following administration of intravenous contrast. MPR sagittal and coronal reconstructions were obtained from the axial data. Before infusion of intravenous contrast, radiology personnel investigated the possibility of an allergic history and of any history of reaction to iodinated contrast material. Contrast Protocol: Omnipaque 350 [>or =100lb] 100 ml [<100 lb] 1 ml per 1 lb. INTRA-PROCEDURE MEDS: iohexol (OMNIPAQUE) 300 MG/ML injection 30 mL Route: Oral iohexol (OMNIPAQUE) 350 MG/ML injection 100 mL Route: Intravenous Push FINDINGS: Cardiovasculature: Heart size is within normal limits. Ascending aortic ectasia, 4.5 cm. There is moderate ulcerated low-density atheromatous irregularity of the descending thoracic aorta. No dilation of the pulmonary trunk. Mediastinum/Pericard ium: No pericardial thickening or effusion. Pleura: No pleural effusion. Central Airways: Clear. Lungs: Moderate centrilobular emphysema. No mass or focal consolidation. Nodules: No nodules requiring follow-up. Lymph Nodes: No thoracic lymphadenopathy. Hepatobiliary: No focal liver lesion or biliary dilation. Pancreas: Within normal limits. Spleen: There are multifocal subcentimeter splenic hypodensities which are too small to characterize. Adrenal Glands: Unremarkable Kidneys, ureters, and bladder: Multiple renal cortical lobulations suggestive of scarring. No calcification referrable to the urinary tract or evidence of obstructive uropathy. Bladder is poorly assessed given underdistention. Abdominal and pelvic vasculature: Moderate mixed calcific and low-density aortoiliac atherosclerotic irregularity with mild fusiform ectasia of the infrarenal aortic segment, 2.4 cm. GI tract: No evidence of bowel obstruction. Appendectomy. 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 There is no significant confluent soft tissue at the perineum or extending to the mesorectal fat. Peritoneum and retroperitoneum: No free fluid or free air. Lymph Nodes: No abdominopelvic lymphadenopathy. Uterus and adnexa: Poorly assessed by CT. Visualized musculoskeletal structures: No acute fracture or destructive osseous lesion. Chronic and benign-appearing mild superior endplate compression deformities at T6-T8 with exaggeration of normal upper thoracic kyphosis. No significant spinal canal stenosis. IMPRESSION: 1. 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 There is no evidence of significant penetration into the surrounding soft tissues, locoregional annie metastasis, or evidence of distant metastatic disease. 2. Aortoiliac atherosclerotic calcification with ectasia of the ascending aorta and infrarenal aortic segment as detailed. MACRO: None RADIOLOGY Boris Taylor MD - 10/03/2022 EXAMINATION: CT CHEST/ABD/PELVIS W/ CONTRAST 10/03/2022 02:29 PM CLINICAL HISTORY: staging anal cancer ASSOCIATED DIAGNOSIS: Anal cancer (HCC) ORDERING PROVIDER: [facility] [facility] NOTE: COMPARISON: None TECHNIQUE: Contiguous axial images were obtained through the chest abdomen and pelvis from the level of the thoracic inlet through the pubic symphysis following administration of intravenous contrast. MPR sagittal and coronal reconstructions were obtained from the axial data. Before infusion of intravenous contrast, radiology personnel investigated the possibility of an allergic history and of any history of reaction to iodinated contrast material. Contrast Protocol: Omnipaque 350 [>or =100lb] 100 ml [<100 lb] 1 ml per 1 lb. INTRA-PROCEDURE MEDS: iohexol (OMNIPAQUE) 300 MG/ML injection 30 mL Route: Oral iohexol (OMNIPAQUE) 350 MG/ML injection 100 mL Route: Intravenous Push FINDINGS: Cardiovasculature: Heart size is within normal limits. Ascending aortic ectasia, 4.5 cm. There is moderate ulcerated low-density atheromatous irregularity of the descending thoracic aorta. No dilation of the pulmonary trunk. Mediastinum/Pericard ium: No pericardial thickening or effusion. Pleura: No pleural effusion. Central Airways: Clear. Lungs: Moderate centrilobular emphysema. No mass or focal consolidation. Nodules: No nodules requiring follow-up. Lymph Nodes: No thoracic lymphadenopathy. Hepatobiliary: No focal liver lesion or biliary dilation. Pancreas: Within normal limits. Spleen: There are multifocal subcentimeter splenic hypodensities which are too small to characterize. Adrenal Glands: Unremarkable Kidneys, ureters, and bladder: Multiple renal cortical lobulations suggestive of scarring. No calcification referrable to the urinary tract or evidence of obstructive uropathy. Bladder is poorly assessed given underdistention. Abdominal and pelvic vasculature: Moderate mixed calcific and low-density aortoiliac atherosclerotic irregularity with mild fusiform ectasia of the infrarenal aortic segment, 2.4 cm. GI tract: No evidence of bowel obstruction. Appendectomy. 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 There is no significant confluent soft tissue at the perineum or extending to the mesorectal fat. Peritoneum and retroperitoneum: No free fluid or free air. Lymph Nodes: No abdominopelvic lymphadenopathy. Uterus and adnexa: Poorly assessed by CT. Visualized musculoskeletal structures: No acute fracture or destructive osseous lesion. Chronic and benign-appearing mild superior endplate compression deformities at T6-T8 with exaggeration of normal upper thoracic kyphosis. No significant spinal canal stenosis. IMPRESSION: 1. 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 There is no evidence of significant penetration into the surrounding soft tissues, locoregional annie metastasis, or evidence of distant metastatic disease. 2. Aortoiliac atherosclerotic calcification with ectasia of the ascending aorta and infrarenal aortic segment as detailed. MACRO: None [facility] Radiology Study observation (narrative) [facility] [place] HEPATIC FUNCTION PANELon Albumin [Mass/Vol] 4.8 g/dL Normal 3.4-5.1 The [facility] Comment on above: Performed By: #### FLACA HERNANDEZ, MG ####S PATHOLOGY [id number] [place], [place], ALK 119 IU/L Normal 40-200 [facility] [place] [facility] Comment on above: Performed By: #### FLACA HERNANDEZ, MG ####S PATHOLOGY [id number] [place], [place], ALT [Catalytic activity/Vol] 13 U/L Normal 7-40 [facility] [place] [facility] Comment on above: Performed By: #### FLACA HERNANDEZ, MG ####[facility] PATHOLOGY [id number] [place], [place], AST [Catalytic activity/Vol] 21 U/L Normal 7-40 [facility] [place] [facility] Comment on above: Performed By: #### FLACA HERNANDEZ, MG ####[facility] PATHOLOGY [id number] [place], Bilirubin [Mass/Vol] 0.7 mg/dL Normal 0.1-1.5 [facility] [place] [facility] Comment on above: Performed By: #### H LFACA FROST, MG ####S PATHOLOGY [id number] [place], Bilirubin.direct [Mass/Vol] 0.12 mg/dL Normal 0.10-0.30 The [facility] System Comment on above: Performed By: #### FLACA HERNANDEZ, MG ####S PATHOLOGY [id number] [place], Protein [Mass/Vol] 7.6 g/dL Normal 5.7-8.1 The [facility] Comment on above: Performed By: #### FLACA HERNANDEZ, MG ####S PATHOLOGY [id number] [place], [place], Laboratory - Chemistry and C hemistry - challengeon 10-03-2022 Albumin [Mass/Vol] 4.8 g/dL 3.4 - 5.1 g/dL [facility] ALP [Catalytic activity/Vol] 119 U/L [facility] ALT [Catalytic activity/Vol] 13 U/L [facility] AST [Catalytic activity/Vol] 21 U/L [facility] Bilirubin [Mass/Vol] 0.7 mg/dL 0.1 - 1.5 mg/dL [facility] Bilirubin.direct [Mass/Vol] 0.12 mg/dL 0.10 - 0.30 mg/dL [facility] Magnesium [Mass/Vol] 1.8 mg/dL 1.6 - 2.8 mg/dL [facility] Protein [Mass/Vol] 7.6 g/dL 5.7 - 8.1 g/dL [facility] MAGNESIUMon 10-03-2022 Magnesium [Mass/Vol] 1.8 mg/dL Normal 1.6-2.8 The [facility] System Comment on above: Performed By: #### FLACA HERNANDEZ, ####S PATHOLOGY [id number] [place], [place], No Panel Informationon 10-03 Interpretation and review of laboratory results Normal [facility] Progress Noteson 10-03-2022 Secretary Of Police Authentication Interface Message Text Normal The [facility] Secretary Of Police Authentication Interface Message Text Normal The [facility] Secretary Of Police Authentication Interface Message Text Normal [facility] Secretary Of Police Authentication Interface Message Text Normal [facility] Secretary Of Police Authentication Interface Message Text Normal [facility] Telephone Encounteron 2022 Secretary Of Police Authentication Interface Message Text Ms. Maldonado appreciated to reschedule an appt with Dr. Smith from 10/04 to 10/03. [place] [employer], [employer] 10/02/2022 2:37 PM Normal [facility] Progress Noteson 09-27-2022 Secretary Of Police Authentication Interface Message Text Called patient re: chemoRTx for likely kly stage I anal Normal [facility] Telephone Encounteron 2022 Secretary [employer] Authentication Interface Message Text I spoke to Ms. Maldonado about the tumor board recommendations which include chemotherapy and radiation. I explained she also needs a staging CT chest/abd/pelvis. It is ordered. She will call and schedule it. Yoselin Padron MD Normal [facility] Tumor Board Noteon [employer] Authentication Interface Message Text Normal [facility] Telephone Encounteron 2022 Secretary Of Police Authentication Interface Message Text Normal [facility] Telephone Encounteron 2022 Secretary Of [employer] Authentication Interface Message Text Attempted to reach Ms. Maldonado to give her the path results from her surgery on 08/28/2022 but her voicemail is full. Yoselin Padron MD Normal [facility] Anesthesia Postprocedure Tati luationon 08-28-2022 Secretary [employer] Police Authentication Interface Message Text Normal The [facility] PSE Call H AND Ryne Secretary Of Police Authentication Interface Message Text Normal [facility] Telephone Encounteron 2022 Secretary Of Police Authentication Interface Message Text Patient has returned my call and confirmed her new date for her biopsy, August 28, 2022. Karolina Johnson Normal [facility] Secretary Of [employer] Authentication Interface Message Text Normal [facility] Telephone Encounteron 2022 Secretary Of Police Authentication Interface Message Text Normal [facility] ONC - Otheron 07-27-2022 ONC - Other [id number] 3#1.00CD:127 Normal [facility] Progress Noteson 07-25-2022 Secretary Of Police Authentication Interface Message Text Normal [facility] [place] [facility] Secretary Of Police Authentication Interface Message Text Patient was identified by name and date of . Marek Bonilla Body Mass Index is 21.37. Body Surface Area is 1.93 square meters according to the formula of Maggy and Maggy. Patient at risk for falls:No Falls Risk protocol implemented: No Normal The [facility] Telephone Encounteron 2022 Secretary Of Police Authentication Interface Message Text Normal The [facility] Coding Summary.on 06-12-2022 Coding Summary. CD:[id number] Gh0bWw+PGhlYWQ+PE1FV NCxW68yjWAgwQ1FX4bOZ N9GIBNURVXLXO1XOF1fi RB3PPfpR9MrstMn CcpcfWLnAF02LDs9TDF9 xMlyVKatdI1ihAZpN1e3 DeTxPS16qB37KQcwJOKv BlD0ZfDnpvmdtLTq F9ccNyDpqXVvGzp+PHRh YmxlIHdpZHRoPScxMDAl TkXuwCnmKR7uDm6dRNJa LWNvbGxhcHNlOiBj m7hcUNPwMZjyXA8meOmm P7DhaTM9TBNjg9s5Nt29 dHI+IGOrNVO9ePlqGIqy b355BwCwg8vqVTC5 vLTnOMipRLQ6D80ff4Q4 AJBiUHNaMOZ0kPD3pY7f vDazbrpnH6GmfKGdYhO9 PYO6fRSwvY6wzWmo rvcrxC9aWmr+N14JUT7V HAXOAL9CJmj3P5FkRnvv dHI+EL72QQJjAY71gJNy yZLjs5sfcWq2YtOi YIXsTMM9iZbzEQqfx7Co ECVtU70arGOxv3C9CQXk cQtvgVXmQoYbhJS0zY8k CAidhtwxl6bxkgwp Iwlkw4kynd35bH73J17o RHftUSLpDIF8WAMqUODw lNkmao7ucY3zIo9+IDxj a3hsg7kaaVj3NyPe JUGpzpUdwRveIJV8m9Kd Qw66R4LytWyan4NcAuf4 qz62sBSwe8M2pML5LXqo UZIlaX9oJCfaDhK1 HBIqQpZrtY25bTSoOHwd Km3txRpkcSxhII2xSQJw nvwhHANovO3gFNJbpAJp nAxqAI1nMFFzynkc t202NuDnTKF5QNPaoQEl Z2FsfC9sJiZjAIStFSPp X9HgxCVfKFsuP940QOlz TuL0KPApxeRgP4Qw RCUhqBpaDzY4c6Q9Op6U i7XshrxhUHQ7UHwgCJTs JuV0BtDuCxR2V9XsKjf9 XRSceWehQL2tW1Zt HWHsnotzyxeguVW4MVSq UQKiwN67sQTkEKpdTq7c l3M6i361NVReBZTniF42 Sa5nlCthFTQzkQFV rS4jeeuha0scfewcOfXd ZMXlLQp9SNf2VEEidIas YtRwATS2BtA3RXX9gPBb fY1irTinizrnuX0r Oyc+U51wjQ1hUMP6BFM7 jqwsUTTnkkJjZQ80IL59 I2ZoNlynuRQpfGS+PGRp nbSrvXbwIP6jUuKi h0gyx2AcHZdkU0ZbLFAl OErnRoj0HFVwRPJ7xRG3 nS3tAMXeCSabn2D1qWG6 J0HtolVowj5fu6fq LUXrAFguA32djHAfq5S7 VRSxlUJ3MVYyyJywAsWw yC80Esj+IWWdhFuha4Ei Sdevx4que9kubCs8 IjMwJSIgdmFsaWduPSJ0 t6QmVa83H73eEDpiPSCt KTBjFBIpWZTdoUuyrp1b bJ5qOo6+PGNvbCB3 cXC1qH7aKSFbGbF4ZTks C005ExSazCSsOvsvv6ud g2ntxAe7XvZsFWQoqmCr hRclPJT8s8YqIi46 S27eJTgpLMNpKSXjVZYs UJExuLxszm1ncA9zNb6+ BI6ja1yqyg28aP43vIX+ NGZeEYB5rSlfIIji FZQlhA3iYAniPzZ6SGRl HpTxaH02dNWdHJpaPo6e iWxwmCxmVY9xYFJdwsnh w898SvDfv9gvOZZb jUCjDWwlBPU4T89ct4D4 YCTvVZWvEUF4uYS5cZ3x bGlnbjogbGVmdDsgdmVy iIdgYYnsMIorG480 IHRvcDsnPlBhdGllbnQg OvNpHXb6P0BjCbu1INQm fPimDN0snXSnBBrpMp7n cQdkvObpOJ4hAYIz pcypl201CoCbb4dzNAEf xKHmFRseUWO7V15zd8P5 GJWfURDdAZM9cRS5eJ9p bGlnbjogbGVmdDsg duDrvTmlDWluFWlxO998 IHRvcDsnPkJpcnRoIERh tCM6ZF12WL51dFLiu4Z1 mRU7L8QoRSFpcoak vmpdrIF7TLVnYXQnaN69 Xc7ocXijOs2eEYQoYPK7 XAWljOCmO4CueN0kVyPq FLLzUPEnB5BnhIHb IVwxH297HCkgZdB2OVJr cbAuE5OiJEZamKyzZeQ0 h4H4Wk3EO2E6EN27DT41 xFRyq0L7tMW5Z5Bb FARcmhdnedcpdOG1DZEz BMVevN56Iu6ixEhnBy5a XMHzAKQ7SFMreXQmP7Uu eT6bZyNzTQBvXNHz S4NoyJFrHJveN843LPau FtT5FAVmazNzS6QzVXKf eNtrAaG3w7X8Bp7ABRp2 LD37NC65rPGiu7B1 vBY1J1LxZMJdvzterphb iXM3FQTvPYWisR37Te0s xUzhTe8nEUJiPZQ0RSKl jSRmA2UljT2tEqAm LWNlMCCoT4IhbQKxPYtm Q921VFbpUfM8ZRYtmxPl E5NiFIQjjWznYmO7y2H5 Lz9CVTNaUA30HMS2 tNK4SQ93SA05Z7XaWaia dGFibGU+PHRhYmxlIHdp ZHRoPScxMDAlJyBzdHls TK7lYr6rOZJrOSXd jWwpvTOpIoNhk4eeNEIr HNfaKD3lfYkgK7ClhXG9 PDBdw3l9Hl73I57jY1Mj dXA+QEYepLJ1oFT7 oL6sBwMnEkP6URysJ712 NoMquICvIbqgw3zfr1uu zZe2SkC4ARFrqmRxwNzv ILK5u6LzNs76G31n IHdpZHRoPSIxNSUiIHZh tXncnn1paO8pUv9+PGNv uEE7vXE3hF4sXhRuUiR2 ZXyqY629OfIurWZj Tqqxg0hur3pdnNk8AlIr PXNgryOqvMknDIK8t9Cv Ky58B6QocOvkd0YoEpk9 up44wJAuy3H9gRW2 B5CnQCVopbvueEJmeTyt HF9bVIZowvczKJRhsR1r IHOiK2i3PyUpTfB3QOaw Z3RxrdT0OGPrpYMc AYysUDP8N34yg8F1FTKq XHTdGDE4hCM6vH6woCzu bjogbGVmdDsgdmVydGlj TQzkZOwgH618ZNVn uZdlBOUesA0lRXEayXKm yTvkOY9cGIKjrlypLopT PdHPGNdsP3CKRQCOYbRV ML25QY35aTWhr3C2 wGC4N6OlUODzztjycllv aQM7BWBhTBQfcX55vQCy VKzeBs7zh8S6g356GABg CISlwZ50Zt1ckEja HBIrsTEJdP4tsdwzf2tg goqzFqRhKIIaCGh7JHa0 UWRzgDdtYcRzUCW8NvU5 AMV7nGFjqT0fsLtq vrijuM4yIrb+MDcvMjYv UMd5XVpczFW+PHRkIHN0 bAgkOFpeGSPulN8xTFTv W0s8QsIpFkO9RFeu B8TvLZNlxuujAn13iY0i VuUqJiW8TPywG4AgqyN8 HQBcqRHbJJsmTLG1G34m o5S9RNRtOISuHCD8 mLN2fA1kiDruauzfrRJt dDsgdmVydGljYWwtYWxp D092MKLwnFgqCaPqTJrc UKPlAH94IP14kNHu t3O8wBQ1L9UjQNTnzspl eeucmCQ9UPQzUUJdaR33 vLEqRRxjZi0bc5K4b550 LFPtIZMguA02Jt8f lQxhKHXnaXBFqR4qmddb w5hmvgflBxOcHCJsBCj4 NDv4MSIiaDsrAaDhSPK6 PpX2NFH6oZKlzX6c rBkfqucgtE6gGwu+RmVt DKafBJ71VT22aEYea3X6 qUM1H2SlTXMbdjgmrqdp oVO8FMInKQSnbW67 lRAgVXeeOz8ki3M6t481 QVUfQSSfvT32Ua9zyLoc SOQscKOEkP9eccabs6yb cjogIzAwMDAwMDt0 XZd6CJNecPjuUrRzAKO9 AeZ4XRP9iDKmlC2bmUsk penhrX6tEic+V3P1yWL6 aWVudDwvdGQ+PC90 aa12U2WtMzihAhe8LBVw HDL5fES9kO7jFUQrZQrq d0R9uID0K1LjvxGhvm7w l4gqWNKkNZguH88j yCGkf1F8CUDifUU2CEId rBqrFxCmpF49Vhp+PGNv hYfsj7HwZyycc8uic6tn sGp0CiQpALSrlaWb fAgoSJE9z7DeEw83H36e IHdpZHRoPSIzMCUiIHZh tAdulo4jpK2iHc0+PGNv vGE4iBF9pS9pRtEs WlB1CQkwQ517YsCscDLs Krrjd1cqj5tgwJf7NxFw SJFchsSwxMeiIYC5u8Ih Hb12H6EbeWhxb5Sz Nlj9bz69tUJyp6D5aRP4 D1KiHOVoxbtikIHpoWrz UU4wCDNljgcoHCUdfP0z TWDrX0t2ZbRfYiK6 MZkkY0IfelU9OOTrtGPu FQJrjVRVhO5fjcecu7bs hhjmKpCmGRZxTMq1ZIw5 LWFsaWduOiBsZWZ0 OlQ3UMU5rTMfzQ2yuGhs uayvcP3sWuf+ASh5p7if dLEiNK1wqLX5QT75DW86 nLMha5X6cRE0Y8Sk BGNjyrwukdfaxHM6PYYd MQSweR59Qg9lzUttIl3i EGTdGLX4HOWtiIKhD7Pg wH6rJcPeUYMhWCPv A2EqrRXtECdyH051CXyg WqT2VPJkzjGfA0SgMPAm vCocApZ5t6T1Jk8BUA87 DT26BX31uEDmv9F8 xZV2H7DcJFXceaotitvj qLR9WITuHPRfrG59Jb7h dAjjKd6pSREvARI6ISPp zTNdU0YqqY3eKlOx AJUmPFDeT6NcfKRuZYzf Z188BQidCyB4PLWytoIj E9YxKEVnpLdzZoC3v6F1 Ss7UDa94WQ30YP71 hNJbu3R6iKW7X7DoLGUt fxpbgvuqxWT7FXEnQKKg cT78Ff5siEiiLy4bBOGt SFR6MFTlnSFkL6Ug xZ2zJvLdCTAiJIKpT9Ev xXRnBSbjO140DEwpTuZ1 NEBdebTrG0NfPZHvkBpo RxL0x5Q0Dd0TYLio has1H5LcZxhbuKC+PC90 IVEkDA34fBDlwOClh0af nOw1HpKlCCSbZVO1jWhg RGvjg5QmUTJeF16g bGFw (more content not included)... Normal [facility] Oncology Progress Noteon Oncology Progress Note Patient: AMBER MALDONADO Age: 61 years Sex: Female : 1960 Associated Diagnoses: None Author: Nahum Jones DO History of Present Illness 61-year-old female referred for anal cancer. Outpatient medications include Claritin, sertraline, Vistaril. Past medical history includes only depression and seasonal allergies. 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 She had seen Dr. Desean Voss at [facility], given topical chemotherapy cream for 6 months and laser treatments with resolution of her symptoms. Sometime in early 2021 she noted anal discomfort. She had seen dermatology who performed biopsy and noted squamous cell carcinoma in situ. She was then referred to [facility] for anoscopy. She was having some bright red blood per rectum. I have biopsies from November 04, 2021 which were second opinion from a previous biopsy that was performed on July 19, 2021. From [facility] notes left anal verge perianal biopsies with a high-grade anal intraepithelial neoplasia AIN 3. Also AIN 3 is noted at the right anal verge, the left lateral perianal area of the left posterior perianal area and the right lateral perianal area. 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 She had seen Dr. Padron at [facility] in July 2021 and performed multiple biopsies of her 6 x 8 cm mass. In October [address] Dr. España notated that there was a perianal 6 x 8 cm tumor outside the anal canal with clear involvement of the anal verge and normal sphincter tone. She has seen Dr. Penelope Ewing and Dr. España in mid 2021. MRI of the pelvis was performed on December 15, 2021 which noted a focal area of T2 hyperintensity in the distal anus near the anal verge at 6 o'clock position measuring 6 x 6 mm, no MRI evidence of metastatic disease. There is thickening and abnormal enhancement involving into the gluteal creases bilaterally as well. Review of Systems Constitutional: Negative. Eye: Negative. Ear/Nose/Mouth/Throa t: Negative. Respiratory: Negative. Cardiovascular: Negative. Gastrointestinal: Negative. Genitourinary: Negative. Hematology/Lymphatic s: Negative. Endocrine: Negative. Immunologic: Negative. Musculoskeletal: Negative. Integumentary: Negative. Neurologic: Negative. Psychiatric: Negative. All other systems are negative Health Status Allergies: Allergic Reactions (Selected) No Known Medication Allergies Current medications: No qualifying data available , No qualifying data available Problem list: No problem items selected or recorded. Histories Past Medical History: No active or resolved past medical history items have been selected or recorded. Family History: No family history items have been selected or recorded. Procedure history: No active procedure history items have been selected or recorded. Social History Social & Psychosocial Habits No Data Available . Physical Examination Vital Signs 06/01/2022 9:27 EST Heart Rate Monitored 78 bpm SpO2 93 % 06/01/2022 9:27 EST Systolic Blood Pressure 145 mmHg HI Diastolic Blood Pressure 86 mmHg Mean Arterial Pressure, Monitered 106 mmHg 06/01/2022 9:27 EST Temperature Axillary 36.7 DegC 06/01/2022 9:27 EST Temperature Oral 36.7 DegC Respiratory Rate 18 br/min Blood Pressure Location Left arm Mean Arterial Pressure, Cuff 106 mmHg General: Alert and oriented. Eye: Pupils are equal, round and reactive to light, Extraocular movements are intact, Normal conjunctiva. HENT: Normocephalic, Oral mucosa is moist, No pharyngeal erythema. Neck: Supple, Non-tender. Respiratory: Lungs are clear to auscultation. Cardiovascular: Normal rate, Regular rhythm, No murmur. Gastrointestinal: Soft, Non-tender. Lymphatics: No cervical, supraclavicular, axilla, inguinal adenopathy.. Musculoskeletal Normal range of motion. Integumentary: Warm, Dry, [employer]. Neurologic: Alert, Oriented, Normal sensory. Psychiatric: Cooperative, Appropriate mood & affect. Thereis a large anal tumor evident with extension by about 5cm outside the anus along the skin surface. appears from outside as a large perianal erythematous plaque. No obviousl necrosis or bleeding. Anal tumor extends a few centimeters above theanal verge, exam limited by pain. Review / Management Results review: No qualifying data available . Impression and Plan Education and Follow-up: Counseled: Patient, Regarding diagnosis, Regarding treatment. Discharge Planning: Nahum Jones mri rectum/pelvis at [facility]. pet/ct at [facility]. f/u with Dr. España and me same day after this MRI and PET/CT. . Locally advanced anal cancer. This has gone untreated for many months now. She needs restaging prior to hopefully concurrent chemoradiation. i stressed to her the importance of having (more content not included)... Normal [facility] ONC - Otheron 06-06-2022 ONC - Other [id number] 79#1.00CD:127 [facility] ONC - Other [id number] 27#1.00CD:127 [facility] Consent for Treatmenton 05-11 Consent for Treatment [id number] #1.00CD:127 [facility] Oncology Noteon 06-01-2022 Oncology Note Oncology [facility] Office Visit/Treatment Note Current Patient Status/Reason: Patient here for scheduled Initial Clinic Visit. I accompanied Dr. Jones and Leah, medical student in room. Extensive medical history reviewed. Patient informed she has [employer]. Patient informs tumor is about the same as in December 2021. Treatment Plan: MRI and PET at [facility], refer to Dr. Escamilla for radiation needs appointment with Dr. Jones @ [facility] same day Follow-Up Appointment Info/Referrals: at [facility] Resources Offered: Discussed with patient to talk to her medical case worker at the [facility] to see if she can switch plans, since [employer] is not accepted at [facility]. Also, patient will talk to [facility] financial counseling to see what her options are. [facility] Comment on above: Result Comment: Elec tronically Signed By: Hari MASON, Kym Puckett.br\Date and Time Signed: 06/01/22 12:57 EST Physician Orderon 06-01-2022 Physician Order [id number] 1#1.00CD:127 [facility] ONC - Otheron 05-23-2022 ONC - Other [id number] 1#1.00CD:127 [facility] Outside Oncologyon 3 Outside Oncology [id number] 1#1.00CD:127 [facility] Outside Pathology Reporton 0 05-23-2022 Outside Pathology Report [id number] 2#1.00CD:127 [facility] Outside Radiologyon 05-23-19 Outside Radiology [id number] 0#1.00CD:127 [facility] AMB - Narrative Note-Social Workon 01-13-2022 AMB - Narrative Note-Social Work Discipline and Description: Discipline: Social Work Topic: Insurance Concerns Description: SW received call back from Pt this morning, however, SW spoke with her in the afternoon to address continued insurance concerns. MAHAMED inquired about Pt's status with applying for Medicaid and Financial Assistance application as this web content writer did not hear back from her since our initial contact early December. Pt reportedly returned completed applications to SW via email. However, this web content writer informed Pt applications/email were not received. MAHAMED asked Pt to forward email with attached documents; Pt was agreeable. Pt indicated she did inquire about Medicaid eligibility and was told she would not qualify. Pt also reportedly had follow up with [employer] regarding early mcc/Medicare eligibility. Pt was uncertain about eligibility for Medicare benefits if approved for early mcc. When discussing plan of care, Pt expressed frustration regarding possible change in treatment- RT at [facility] contingent upon MRI results vs surgery. MAHAMED provided active listening, supportive feedback. It is unclear how much follow up has been made to establish adequate insurance coverage since our initial encounter; however, SW reassured Pt that this web content writer is willing to assist her with applying for Financial Assistance and Medicaid. Pt will need to return applications to this web content writer for submission. SW also informed Pt of alternative option to enroll in Marketplace insurance for the upcoming 2022 as open-enrollment is quickly approaching. Pt also verbalized understanding when MAHAMED explained there are limited Marketplace plan in network with . Pt was appreciative of this web content writer's follow up. SW will submit Financial Assistance/Medicaid applications for processing once received. ~Jessica AGEE, [id number], Doc [facility] Electronic Signatures: Jessica Irving) (Signed 16-Jan-2022 10:28) Authored: Discipline and Description Last Updated: 16-Jan-2022 10:28 by Jessica Irving) [facility] AMB - Narrative Note-Social Workon 01-11-2022 AMB - Narrative Note-Social Work Discipline and Description: Discipline: Social Work Topic: Insurance Concerns Description: MAHAMED has been unable to reach Pt by phone since initial contact on 12/16 regarding status with applying for Medicaid and Financial Assistance. MAHAMED emailed the above both applications to Pt on 12/16/21. Pt was scheduled for procedure under the care of Dr. Gracy Cardona on 12/21 which was canceled due to lack of insurance coverage. MAHAMED attempted to reach Pt by phone again today, however, was unable to reach her. MAHAMED left a detailed message regarding the reason for this web content writer's call and contact info requesting follow up. MAHAMED will await call back from Pt. MAHAMED provided updates to Mini Cardenas RN. ~Jessica AGEE, [id number], Doc [facility] Electronic Signatures: Jessica Irving) (Signed 11-Jan-2022 11:08) Authored: Discipline and Description Last Updated: 11-Jan-2022 11:08 by Jessica Irving) [facility] AMB - Narrative Note-Social Workon 12-27-2021 AMB - Narrative Note-Social Work Discipline and Description: Discipline: Social Work Topic: Follow Up Description: SW has been awaiting response from Pt regarding completion of Medicaid and Financial Assistance applications with hopes to establish adequate insurance and/or coverage for continuation of medical care. SW emailed the above applications to Pt on 12/16/21. SW attempted to reach Pt by phone today, however, call went straight to voicemail. SW left a detailed message regarding the reason for this web content writer's call and contact info requesting follow up. SW will await call back from Pt. ~Jessica Irving [facility] [employer]IST, [id number], Doc [facility] Electronic Signatures: Jessica Ivring (MAHAMED) (Signed 27-Dec-2021 10:15) Authored: Discipline and Description Last Updated: 27-Dec-2021 10:15 by Jessica Irving (MAHAMED) Normal [facility] AMB - Narrative Note-Social Workon 12-16-2021 AMB - Narrative Note-Social Work Discipline and Description: Discipline: Social Work Topic: Insurance Concerns Description: SW received referral from Dr. Cardona's Nurse Partner, Mini Cardenas RN regarding Pt's insurance concerns. Per RN, Pt's scheduled surgery was recently canceled due to lack of insurance coverage. 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 Pt is reportedly unable to cover costs for much needed MRI of Pelvis and PET and has attempted to apply for Medicaid. Pt is reportedly is active w/ financial assistance at [facility]. SW had previously verified with [employer], Pt is not active with Financial Assistance. SW spoke with Pt by phone to further assess insurance needs/concerns. Pt confirms that her upcoming procedure scheduled for 12/21 has been canceled due to lack of insurance coverage. Pt reportedly has not had stable/adequate insurance for 4 years now, since moving from [place] to [place]. Pt reports she last carried Marketplace insurance- [employer] plan, however, could not maintain monthly premium payment and subjected deductibles and copays. Pt is unemployed, collects her ex-spouse monthly social security benefits and pension totally $2,075. 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 Pt is of early mcc age, however, she is uncertain if she will be able to collect early mcc while receiving her ex- benefits. MAHAMED discussed potential insurance options with Pt. Based on Pt's reported income, it's unclear if she will qualify for Medicaid, however, discussed plan to submit application to allow [employer] to make a determination. Pt reportedly has been denied Medicaid in the past. MAHAMED discussed that Marketplace open enrollment will be approaching soon, however, Pt does not feel this option is feasible given understanding that only accepts their MMO plan at this time. MAHAMED suggested Pt to consider applying for Financial Assistance. MAHAMED advised Pt to contact local [facility] Office- [phone] to inquire about early mcc and Medicare eligibility. Pt seemed receptive to reapplying for Medicaid and exploring Financial Assistance and early mcc/Medicare eligibility. MAHAMED discussed plan to email Medicaid application, ODM form, and Financial Assistance application to Pt. Pt is aware to complete respective forms and return to this web content writer for review/submission. Pt denies further questions at this time, appreciative of this web content writer's assistance. MAHAMED emailed pre-filled Medicaid application, ODM form, and Financial Assistance application to Pt at [email or web address] . SW following. ~Jessica Irving [employer] [employer], [id number], Doc [facility] Electronic Signatures: Jessica Irving (MAHAMED) (Signed 19-Dec-2021 09:05) Authored: Discipline and Description Last Updated: 19-Dec-2021 09:05 by Jessica Irving (MAHAMED) Normal [facility] Creatinine (Bld) [Mass/Vol]O rdered By: Jun España on 12-15-2021 Creatinine [Mass/Vol] 1.2 mg/dL 0.6-1.3 [facility] Comment on above: ER/ESD physician is notified/shown all ISTAT results.Critical values may be confirmed by laboratory testing ifdeemed necessary by ER attending doctor. No Panel InformationOrdered By: Jun España on 12-15-2021 POC Estimated GFR 55 [facility] Comment on above: GFR estimated refere nce range: According to KDOQI guidelines, <60 ml/min/1.73m2 is sufficient to diagnose a patient with chronic kidney disease. 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 Discussed diagnosis in detail. The diagnosis, pathophysiology treatment and alternatives, procedure, options, preparation, perioperative course, risks and possible outcomes were discussed in detail. I emphasized the significant possibility of recurrence and the need for close follow-up. We also discussed the issue of dysplasia - low and high grade and the risk of neoplastic change. We will start with an EUA/HRA and for excisional biopsy of one side of the lesion. If path is all AIN, will allow for tissue granulation and healing and then excise the other side. If pathology is cancer, will recommend chemoradiation. Risks of the procedure discussed including infection, bleeding, pain, urinary retention, anesthetic complications, poor healing. Discussed prolonged healing and pain at length. We extensively discussed smoking cessation and rationale. MRI prior to excision for planning/diagnostic purposes and because of concern of cancer. The plan was reviewed with the patient and all questions were answered. Thank you for allowing me to participate in the care of this patient. Please do not hesitate to be in touch. 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 She noted a recurrence for the past few months. She felt the lesion in the shower and no associated pain or tenderness. No change in bowel habits. 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 She was seen by Dr. Yoselin Padron at [facility] [place] and was found to have a 7x6cm red plague around the posterior half of the anus with a nodular area at the anal verge. On 07/19/21 she underwent EUA with biopsy. Pathology demonstrating HSIL. She presents today with her partner, Santosh. No tenderness today. She still feels that the lesion is present. No unintended weight loss. Her symptoms have improved since her biopsy in July. Mother with a history of colon polyps. Unsure if shes ever had an abnormal cervical pap. Moves her bowels once daily. Some urgency and incontinence. Has not had an episode of incontinence in over a month. No bleeding. She feels that her health is overall very well right now. She is able to walk for 10 minutes without stopping. Colonoscopy 2018 in [place] at [facility] in [place], [place] Current every day smoker 1ppd/Drinks about 2 drinks daily/No Illicit drug use PMH: anxiety PSH: colectomy for diverticulitis in 2016 NKDA No family history of CRC or IBD Employment: Not currently working Review of Systems Constitutional: no fever, no chills, no recent weight gain and no recent weight loss. Eyes: no loss of vision, no discharge from the eyes and no itching of the eyes. ENT: no neck pain, no throat symptoms, no ear symptoms and no nasal symptoms. Cardiovascular: no chest pain, no palpitations and no lower extremity edema. Respiratory: no shortness of breath, no cough and no shortness of breath during exertion. Gastrointestinal: as noted in HPI, no abdominal pain, no constipation, no heartburn, no vomiting, no blood in stools and bowel movement frequency normal. Genitourinary: no dysuria, no hematuria and no vaginal discharge. Musculoskeletal: no arthralgias and no myalgias. Integumentary: no skin lesions. Neurological: no headache and no dizziness. Endocrine: no heat or cold intolerance and no increased thirst. Hematologic/Lymphati c: no swollen glands, no tendency for easy bleeding and no tendency for easy bruising. Psychiatric: no anxiety, no depression and no emotional problems. All other systems have been reviewed and are negative for complaint. Allergies Medication No Known Drug Allergies Recorded By: Lola Martinez; 12/01/2021 9:22:14 AM Current Meds Medication NameInstruction hydrOXYzine Pamoate 25 MG Oral CapsuleTAKE 1 CAPSULE BY MOUTH EVERY 8 HOURS NEEDED MUST LAST 30 DAYS Sertraline HCl - 100 MG Oral TabletTAKE 1 TABLET BY MOUTH DAILY Vitals Vital Signs Recorded: [id number] 09:19AM Heart Rate70 Mqwofsyf565 Eopllltql68 Height6 ft Wntczo019 lb 2 oz BMI Jgvucgzunb29.36 kg/m2 BSA Calculated1.89 Tobacco Usea) Yes Patient encouraged to stop using tobacco productsYes Falls Screening (Age 18+)b) One or more falls in the last year Physical Exam Constitutional - General appearance: In no acute distress, well appearing and well nourished. Eyes Sclerae: Anicteric Neck - Exam: Appearance of the neck was normal. No neck masses observed. Pulmonary - Respiratory effort: Normal respiration. Auscultation of lungs: Clear to auscultation. Cardiovascular - Auscultation of heart: Normal rate and rhythm, no murmurs. Examinati (more content not included)... Normal [facility] Tobacco Screening.on 022 Fall risk assessment b) One or more fall s in the last year SK-Hxritht-Lt lwell 2100 Work Phone: Tobacco use status [facility]PHS a) Yes SJ-Lcxwabl-Dn lwell 2100 Work Phone: Tobacco Screening. Yes MG-Yonny bhargav-Rom lwell 2100 Work Phone: Outside Recordson 11-15-2021 Outside Records [id number] 9#1.00CD:127 Normal [facility] No Panel Informationon 11-04 ZM-Nmrjiim-On lwell 2100 Work Phone: [facility] Surgical Pathology Depar tmenton 11-04-2021 [facility] Surgical Pathology Department Name AMBER MALDONADO Pathologist: CRISTIN MARTINEZ MD Date of Procedure: 11/04/2021 Date Received: 11/04/2021 Date Reported 11/09/2021 Submitting Physician: PENELOPE EWING MD Location: [facility] Other External # FINAL DIAGNOSIS A. [id number] (07/19/2021): A. PERIANAL, LEFT ANAL VERGE, BIOPSIES: HIGH-GRADE ANAL INTRAEPITHELIAL NEOPLASIA (AIN 3), SEE NOTE. Note: P16 immunostaining demonstrates block staining pattern consistent with the above diagnosis. B. PERIANAL, RIGHT ANAL VERGE, BIOPSY: HIGH-GRADE ANAL INTRAEPITHELIAL NEOPLASIA (AIN 3). C. PERIANAL LEFT LATERAL, BIOPSY:HIGH-GRADE ANAL INTRAEPITHELIAL NEOPLASIA (AIN 3). D. PERIANAL, LEFT POSTERIOR, BIOPSY: HIGH-GRADE ANAL INTRAEPITHELIAL NEOPLASIA (AIN 3). E. PERIANAL, RIGHT LATERAL, BIOPSY:HIGH-GRADE ANAL INTRAEPITHELIAL NEOPLASIA (AIN 3). Wardsperson: Dr Darcy Moreno Electronically Signed Out By CRISTIN MARTINEZ MD/MARIUSZ By the signature on this report, the individual or group listed as making the Final Interpretation/Diagn osis certifies that they have reviewed this case. Clinical History: {Not Provided} Specimens Submitted As: A: [id number] (07/19/2021) Slide/Block Description Received from [facility], Department of Pathology, [address] [place] [address] , [place], [place] [address], are twenty-seven(27) microscope slides labeled [id number]. Keep Slides: N Slides Returned: N Personal Consult: N Normal [facility] Comment on above: Performed By: #### U [facility] #### [facility] Surgical Pathology Department [address] [facility] [address] Urine culture routineOrdered By: Edgar Galloway on 10-02-2021 Bacteria identified Cx Nom (U) 2 Days [facility] Urinalysis - AUTOMATEDon Appearance (U) cloudy [employer] Other Bilirubin Ql (U) small [facility] Other Color (U) edgar T3 [employer] Other Glucose Ql (U) Negative [employer] Other Hemoglobin Ql (U) Negative [employer] Other Ketones Ql (U) Negative [employer] Systems Other Leukocyte esterase Test strip Ql (U) trace [employer] Other Nitrite Ql (U) Negative [employer] Other pH (U) 6.0 [pH] [employer] Other Protein Ql (U) trace [employer] Other Specific gravity (U) [Rel density] 1.020 [employer] Other Urobilinogen (U) [Mass/Vol] 1.0 mg/dL [employer] Other Urinalysis - AUTOMATED [employer] Other XR hand LT min 3V*on 022 XR hand LT min 3V* [facility] [employer] Other XR hand LT min 3V* [facility] [employer] Other XR hand LT min 3V* [address] [place] [address] [employer] Other XR hand LT min 3V* [place] [id number] [employer] Other XR hand LT min 3V* XRay Report [employer] Other XR hand LT min 3V* Signed [employer] Other XR hand LT min 3V* Patient: Amber Maldonado MR#: [id number] [employer] Other XR hand LT min 3V* 05 [employer] Other XR hand LT min 3V* : 1960 Acct:[id number] [employer] Other XR hand LT min 3V* Age/Sex: 60 / F ADM Date: 09/29/21 [employer] Other XR hand LT min 3V* Loc: XDUCLY Room: Type: REG CLI [employer] Other XR hand LT min 3V* Attending Dr: Edgar Galloway [facility] [employer] Other XR hand LT min 3V* Copies to: Edgar Galloway COMMISSIONED SALES ASSOCIATE [employer] Other XR hand LT min 3V* Ordering Provider: Edgar Galloway APRN [employer] Other XR hand LT min 3V* Date of Service: 09/29/21 [employer] Other XR hand LT min 3V* XR/XR hand LT min 3V*: Injury [employer] Other XR hand LT min 3V* 3 viewsLEFT hand plain film [employer] Other XR hand LT min 3V* COMPARISON:None N [facility] [employer] Other XR hand LT min 3V* HISTORY:LEFT hand injury [employer] Other XR hand LT min 3V* Oblique fracture of the midshaft of the 5th metacarpal identified. No dislocation. Extensive 1st [employer] Other XR hand LT min 3V* carpometacarpal degeneration. [employer] Other XR hand LT min 3V* XR/XR hand LT min 3V* [employer] Other XR hand LT min 3V* IMPRESSION:Oblique fracture of the midshaft of the 5th metacarpal. [employer] Other XR hand LT min 3V* Impression dictated by: Bud Huertas M.D.09/29/2021 3:12 PM [employer] Other XR hand LT min 3V* Dictation Location: [place] [address] [employer] Other XR hand LT min 3V* Transcribed By: PWS 09/29/21 [facility] [employer] Other XR hand LT min 3V* Dictated By: Bud Huertas DO 09/29/21 [facility] [employer] Other XR hand LT min 3V* Signed By: [employer] Other XR hand LT min 3V* 09/29/[address] [place] [address] [employer] Other Cardiologyon 07-18-2021 P wave axis 48 degrees [facility] P-R Interval 176 ms [facility] Q-T interval 408 ms [facility] Q-T interval corrected 410 ms [facility] QRS axis 3 degrees [facility] QRS duration 80 ms [facility] T wave axis 55 degrees [facility] No Panel Informationon 07-18 Diagnosis Normal sinus rhythm Cannot rule out Inferior infarct (cited on or before 15-JUL-2021) Abnormal ECG When compared with ECG of 15-JUL-2021 16:12, (unconfirmed) No significant change was found Confirmed by FESTUS VARELA ([id number]) on 07/18/2021 9:47:05 [facility] by E[facility] 61 BPM [facility] Albumin [Mass/volume] in Ser um or Plasmaon 05-28-2020 Albumin [Mass/Vol] 4.0 g/dL 3.2-5.5 [facility] Automated basophil %on 05-28 Basophils/100 WBC (Bld) 0.4 % [facility] Automated basophil counton 0 05-28-2020 Basophils (Bld) [#/Vol] 0.0 10*3/uL 0.0-0.2 [facility] Automated blood lymphocyte c ount (number/volume)on 05-28-2020 Lymphocytes (Bld) [#/Vol] 1.3 10*3/uL 1.00-4.8 [facility] Automated blood lymphocyte c ount as percentage of total leukocyteson 05-28-2020 Lymphocytes/100 WBC (Bld) 18.7 % [facility] Automated blood monocyte cou nton 05-28-2020 Monocytes (Bld) [#/Vol] 0.6 10*3/uL 0.0-0.8 [facility] Automated blood platelet cou nt (count/volume)on 05-28-2020 Platelets (Bld) [#/Vol] 190 10*3/uL 150-450 [facility] Automated blood platelet koko n volume measurementon 05-28-2020 Platelet mean volume (Bld) [Entitic vol] 8.2 fL 6.3-10.7 [facility] Automated eosinophil %on Eosinophils/100 WBC (Bld) 1.3 % [facility] Automated eosinophil counton 05-28-2020 Eosinophils (Bld) [#/Vol] 0.1 10*3/uL 0.0-0.45 [facility] Automated erythrocyte distri bution width ratioon 05-28-2020 Erythrocyte distribution width (RBC) [Ratio] 15.8 % 11.9-15.3 [facility] Automated erythrocyte mean c orpuscular hemoglobin (mass per erythrocyte)on 05-28-2020 MCH (RBC) [Entitic mass] 34.3 pg 24.7-34.3 [facility] Automated erythrocyte mean c orpuscular hemoglobin concentration measurement (mass/volon 05-28-2020 MCHC (RBC) [Mass/Vol] 34.2 g/dL 32.0-35.0 [facility] Automated erythrocyte mean c orpuscular volumeon 05-28-2020 MCV (RBC) [Entitic vol] 100.4 fL 80-100 [facility] Automated monocyte %on 05-28 Monocytes/100 WBC (Bld) 9.2 % [facility] Automated neutrophil %on Neutrophils/100 WBC (Bld) 70.4 % [facility] Blood erythrocytes automated count (number/volume)on 05-28-2020 RBC (Bld) [#/Vol] 4.06 10*6/uL 3.60-5.00 [facility] Blood hemoglobin measurement (mass/volume)on 05-28-2020 Hemoglobin (Bld) [Mass/Vol] 13.9 g/dL 11.8-15.4 [facility] Blood leukocytes automated c ount (number/volume)on 05-28-2020 WBC (Bld) [#/Vol] 6.9 10*3/uL 4.5-11.0 [facility] Blood neutrophil count by au tomated method (number/volume)on 05-28-2020 Neutrophils (Bld) [#/Vol] 4.8 10*3/uL 1.8-7.7 [facility] Estimated glomerular filtrat ion rate (GFR) non- Americanon 05-28-2020 GFR/1.73 sq M predicted among non-blacks MDRD (S/P/Bld) [Vol rate/Area] 53 mL/min/{1.73_m2} [facility] Hematocrit [Volume Fraction] of Blood by Automated counton 05-28-2020 Hematocrit (Bld) [Volume fraction] 40.7 % 34.0-46.4 [facility] Metabolic Panelon 05-28-2020 Magnesium [Mass/Vol] 1.6 mg/dL 1.6-2.6 [facility] Otheron 05-28-2020 GFR/1.73 sq M.predicted MDRD (S/P/Bld) [Vol rate/Area] mL/min/{1.73_m2} [facility] Comment on above: GFR estimated refere nce range: According to KDOQI guidelines, <60 ml/min/1.73m2 is sufficient to diagnose a patient with chronic kidney disease. Nucleated RBC/100 WBC (Bld) [Ratio] 0.1 % 0-0.5 [facility] Pharmacy Creatinine Clearance (Chem N/A [facility] Protein [Mass/volume] in Ser um or Plasmaon 05-28-2020 Protein [Mass/Vol] 6.7 g/dL 6.1-7.9 [facility] Serum globulin measurement b y calculation (mass/volume)on 05-28-2020 Globulin (S) [Mass/Vol] 2.7 g/dL [facility] Serum or plasma alanine ruff otransferase measurement without P-5'-P (enzymatic activion 05-28-2020 ALT No additional P-5'-P [Catalytic activity/Vol] 21 U/L 10-60 [facility] Serum or plasma albumin/glob ulin mass ratioon 05-28-2020 Albumin/Globulin [Mass ratio] 1.5 {ratio} [facility] Serum or plasma alkaline j luis sphatase measurement (enzymatic activity/volume)on 05-28-2020 ALP [Catalytic activity/Vol] 118 U/L 32-92 [facility] Serum or plasma aspartate am inotransferase measurement (enzymatic activity/volume)on 05-28-2020 AST [Catalytic activity/Vol] 33 U/L 10-42 [facility] Serum or plasma calcium robe urement (mass/volume)on 02-19-2021 Calcium [Mass/Vol] 9.3 mg/dL 8.2-10.2 [facility] Serum or plasma chloride koko surement (moles/volume)on 05-28-2020 Chloride [Moles/Vol] 99 mmol/L 95-114 [facility] Serum or plasma creatinine m easurement with calculation of estimated glomerular filtron 05-28-2020 Creatinine [Mass/Vol] 1.05 mg/dL 0.44-1.03 [facility] Serum or plasma glucose robe urement (mass/volume)on 05-28-2020 Glucose [Mass/Vol] 96 mg/dL 70-100 [facility] Comment on above: ADA recommended refe rence rangeRandom Glucose Reference Range is dependent on time and content of last meal. Glucose of more than 200 mg/dL in a nonstressed, ambulatory subject supports the diagnosis of Diabetes Mellitus. Serum or plasma potassium me asurement (moles/volume)on 05-28-2020 Potassium [Moles/Vol] 4.1 mmol/L 3.5-5.1 [facility] Serum or plasma sodium measu rement (moles/volume)on 05-28-2020 Sodium [Moles/Vol] 135 mmol/L 136-146 [facility] Serum or plasma total biliru bin measurement (mass/volume)on 05-28-2020 Bilirubin [Mass/Vol] 1.0 mg/dL 0.3-1.2 [facility] Serum or plasma total carbon dioxide measurement (moles/volume)on 05-28-2020 CO2 [Moles/Vol] 25.9 mmol/L 22.0-30.0 [facility] Serum or plasma urea nitroge n measurement (mass/volume)on 05-28-2020 Urea nitrogen [Mass/Vol] 16 mg/dL 9-23 [facility] Vital Signs Date Time Vital Sign Value Performing Clinician Facility 12-07-2022 13:38-0400 Body height 182.9 cm Mitra Ramos MD, PhD Work Phone: [facility] 12-07-2022 13:38-0400 Body mass index (BMI) [Ratio] 18.63 kg/m2 Mitra Ramos MD, PhD Work Phone: [facility] 12-07-2022 13:38-0400 Body weight 62.32 kg Mitra Ramos MD, PhD Work Phone: [facility] 12-07-2022 13:38-0400 Diastolic blood pressure 49 mm[Hg] Mitra Ramos MD, PhD Work Phone: [facility] 12-07-2022 13:38-0400 Heart rate 66 /min Mitra Ramos MD, PhD Work Phone: [facility] 12-07-2022 13:38-0400 Respiratory rate 16 /min Mitra Ramos MD, PhD Work Phone: [facility] 12-07-2022 13:38-0400 SaO2% (BldA) [Mass fraction] 95 % Mitra Ramos MD, PhD Work Phone: [facility] 12-07-2022 13:38-0400 Systolic blood pressure 98 mm[Hg] [facility], PhD [facility] 11-02-2022 08:15-0400 Heart rate 68 /min Jameson Renae MD Work Phone: [facility] 11-02-2022 08:15-0400 Respiratory rate 18 /min Jameson Renae MD Work Phone: [facility] 11-02-2022 08:10-0400 SaO2% (BldA) [Mass fraction] 97 % [facility]ae MD [facility] 11-02-2022 05:22-0400 Body temperature 97.81 [degF] Jameson Renae MD Work Phone: [facility] 11-02-2022 05:22-0400 Diastolic blood pressure 68 mm[Hg] Jameson Renae MD Work Phone: [facility] 11-02-2022 05:22-0400 Systolic blood pressure 90 mm[Hg] Jameson Renae MD Work Phone: [employer] 2022 16:04-0400 Heart rate 75 /min Jameson Renae MD Work Phone: [facility] 10-31-2022 18:50-0400 Body height 182.9 cm Jameson Renae MD Work Phone: [facility] 10-31-2022 18:50-0400 Body mass index (BMI) [Ratio] 20.75 kg/m2 Jameson Renae MD Work Phone: [facility] 10-31-2022 18:50-0400 Body weight 69.4 kg Jameson Renae MD Work Phone: [employer] 10-19-2022 13:23-0400 Body mass index (BMI) [Ratio] 20.45 kg/m2 Dana Damko COMMISSIONED SALES ASSOCIATE-MONUMENT SETTER HELPER [facility] [place] [facility] 10-19-2022 13:23-0400 Body temperature 98.29 [degF] Dana Contrerasko COMMISSIONED SALES ASSOCIATE-MONUMENT SETTER HELPER Work Phone: [employer] 10-19-2022 13:23-0400 Body weight 70.31 kg Dana Damko COMMISSIONED SALES ASSOCIATE-MONUMENT SETTER HELPER Work Phone: [employer] 10-19-2022 13:23-0400 Diastolic blood pressure 78 mm[Hg] Dana Damko COMMISSIONED SALES ASSOCIATE-MONUMENT SETTER HELPER Work Phone: [employer] 10-19-2022 13:23-0400 Heart rate 58 /min Dana Damko COMMISSIONED SALES ASSOCIATE-MONUMENT SETTER HELPER Work Phone: [employer] 10-19-2022 13:23-0400 Respiratory rate 14 /min Dana Damko COMMISSIONED SALES ASSOCIATE-MONUMENT SETTER HELPER Work Phone: [employer] 10-19-2022 13:23-0400 SaO2% (BldA) [Mass fraction] 100 % Dana Damko COMMISSIONED SALES ASSOCIATE-MONUMENT SETTER HELPER Work Phone: [employer] 10-19-2022 13:23-0400 Systolic blood pressure 126 mm[Hg] aDna Ordonez COMMISSIONED SALES ASSOCIATE-MONUMENT SETTER HELPER Work Phone: [employer] 10-16-2022 10:16-0400 Body height 182.9 cm Benton-Min Song COMMISSIONED SALES ASSOCIATE-CARD GRINDER HELPER Work Phone: [employer] 10-16-2022 10:16-0400 Body mass index (BMI) [Ratio] 20.75 kg/m2 Benton-Min Song COMMISSIONED SALES ASSOCIATE-CARD GRINDER HELPER Work Phone: [employer] 10-16-2022 10:16-0400 Body temperature 98.1 [degF] Benton-Min Song COMMISSIONED SALES ASSOCIATE-CARD GRINDER HELPER Work Phone: [facility] 10-16-2022 10:16-0400 Body weight 69.4 kg Benton-Min Song COMMISSIONED SALES ASSOCIATE-CARD GRINDER HELPER Work Phone: [facility] 10-16-2022 10:16-0400 Diastolic blood pressure 84 mm[Hg] Benton-Min Song COMMISSIONED SALES ASSOCIATE-CARD GRINDER HELPER Work Phone: [employer] 10-16-2022 10:16-0400 Heart rate 85 /min Benton-Min Song COMMISSIONED SALES ASSOCIATE-CARD GRINDER HELPER Work Phone: [facility] 10-16-2022 10:16-0400 Respiratory rate 18 /min Benton-Min Song COMMISSIONED SALES ASSOCIATE-CARD GRINDER HELPER Work Phone: [facility] 10-16-2022 10:16-0400 SaO2% (BldA) [Mass fraction] 98 % Benton-Min Song COMMISSIONED SALES ASSOCIATE-CARD GRINDER HELPER Work Phone: [facility] 10-16-2022 10:16-0400 Systolic blood pressure 139 mm[Hg] Benton-Min Song COMMISSIONED SALES ASSOCIATE-CARD GRINDER HELPER Work Phone: [employer] 10-03-2022 09:32-0400 Body height 182.9 cm Mitra Ramos MD, PhD Work Phone: [facility] 10-03-2022 09:32-0400 Body mass index (BMI) [Ratio] 20.8 kg/m2 Mitra Ramos MD, PhD Work Phone: [facility] 10-03-2022 09:32-0400 Body temperature 98.4 [degF] Mitra Ramos MD, PhD Work Phone: [facility] 10-03-2022 09:32-0400 Body weight 69.58 kg Mitra Ramos MD, PhD Work Phone: [facility] 10-03-2022 09:32-0400 Diastolic blood pressure 79 mm[Hg] Mitra Ramos MD, PhD Work Phone: [facility] 10-03-2022 09:32-0400 Heart rate 70 /min Mitra Ramos MD, PhD Work Phone: [facility] 10-03-2022 09:32-0400 Respiratory rate 14 /min Mitra Ramos MD, PhD Work Phone: [facility] 10-03-2022 09:32-0400 SaO2% (BldA) [Mass fraction] 97 % Mitra Ramos MD, PhD Work Phone: [facility] 10-03-2022 09:32-0400 Systolic blood pressure 136 mm[Hg] Mitra Ramos MD, PhD Work Phone: [facility] 06-01-2022 09:27-0500 Heart rate 78 /min [facility] 06-01-2022 09:27-0500 SaO2% (BldA) [Mass fraction] 93 % [facility] 06-01-2022 09:27-0500 Diastolic blood pressure 86 mm[Hg] [facility] 06-01-2022 09:27-0500 Mean blood pressure 106 mm[Hg] [facility] 06-01-2022 09:27-0500 Systolic blood pressure 145 mm[Hg] [facility] 06-01-2022 09:27-0500 Body temperature 98.06 [degF] [facility] 06-01-2022 09:27-0500 Blood Pressure Location Nahum Jones [facility] 06-01-2022 09:27-0500 Body temperature 98.06 [degF] Nahum [facility] 06-01-2022 09:27-0500 Mean blood pressure 106 mm[Hg] Nahum Jones [facility] 06-01-2022 09:27-0500 Respiratory rate 18 /min Nahum [facility] 01-11-2022 14:42-0400 Body temperature 97 [degF] DNP Lizbeth Kaple Work Phone: [facility] 01-11-2022 14:42-0400 Body weight 68.94 kg DNP Lizbeth Kaple Work Phone: [facility] 01-11-2022 14:42-0400 Diastolic blood pressure 84 mm[Hg] DNP Lizbeth Kaple Work Phone: [facility] 01-11-2022 14:42-0400 Heart rate 93 /min DNP Lizbeth Kaple Work Phone: [facility] 01-11-2022 14:42-0400 Respiratory rate 16 /min DNP Lizbeth Kaple Work Phone: [facility] 01-11-2022 14:42-0400 SaO2% (BldA) [Mass fraction] 97 % DNP Lizbeth Kaple Work Phone: [facility] 01-11-2022 14:42-0400 Systolic blood pressure 136 mm[Hg] DNP Lizbeth Kaple Work Phone: [facility] 12-02-2021 14:32-0400 Body temperature 97.8 [degF] DNP Lizbeth Kaple Work Phone: [facility] 12-02-2021 14:32-0400 Body weight 68.03 kg DNP Lizbeth Kaple Work Phone: [facility] 12-02-2021 14:32-0400 Diastolic blood pressure 80 mm[Hg] DNP Lizbeth Blevinsclaudine Work Phone: [facility] 12-02-2021 14:32-0400 Heart rate 69 /min DNP Lizbeth Penaloza Work Phone: [facility] 12-02-2021 14:32-0400 Respiratory rate 16 /min DNP Lizbeth Blevinsclaudine Work Phone: [facility] 12-02-2021 14:32-0400 SaO2% (BldA) [Mass fraction] 94 % DNP Lizbeth Blevinsclaudine Work Phone: [facility] 12-02-2021 14:32-0400 Systolic blood pressure 142 mm[Hg] DNP Lizbeth Penaloza Work Phone: [facility] 12-01-2021 09:19-0400 Body height 182.88 cm Referring Provider Unknown WN-Hpmuwum-Kfeqwzf 2100 Work Phone: 12-01-2021 09:19-0400 Body mass index (BMI) [Ratio] 20.36 kg/m2 Referring Provider Unknown VY-Yqsbumx-Eckebme 2100 Work Phone: 12-01-2021 09:19-0400 Body surface area Derived from formula 1.89 m2 Referring Provider Unknown ZG-Ymkfvso-Qvdsdxq 2100 Work Phone: 12-01-2021 09:19-0400 Body weight 68.1 kg Referring Provider Unknown LR-Jceutrs-Rbpinss 2100 Work Phone: 12-01-2021 09:19-0400 Diastolic blood pressure 76 mm[Hg] Referring Provider Unknown CZ-Nhfrqah-Mxdqqld 2100 Work Phone: 12-01-2021 09:19-0400 Heart rate 70 /min Referring Provider Unknown UF-Wgupzdd-Xbugojd 2100 Work Phone: 12-01-2021 09:19-0400 Systolic blood pressure 122 mm[Hg] Referring Provider Unknown XN-Qllpmsn-Ownebve 2100 Work Phone: 10-26-2021 09:01-0400 Body height 182.88 cm DNP Lizbeth Penaloza Work Phone: [facility] 10-26-2021 08:17-0400 Body temperature 97.5 [degF] DNP Lizbeth Penaloza Work Phone: [facility] 10-26-2021 08:17-0400 Body weight 66.67 kg DNP Lizbeth Penaloza Work Phone: [facility] 10-26-2021 08:17-0400 Diastolic blood pressure 84 mm[Hg] DNP Lizbeth Penaloza Work Phone: [facility] 10-26-2021 08:17-0400 Heart rate 67 /min DNP Lizbeth Penaloza Work Phone: [facility] 10-26-2021 08:17-0400 Respiratory rate 16 /min DNP Lizbeth Penaloza Work Phone: [facility] 10-26-2021 08:17-0400 SaO2% (BldA) [Mass fraction] 93 % DNP Lizbeth Penaloza Work Phone: [facility] 10-26-2021 08:17-0400 Systolic blood pressure 132 mm[Hg] DNP Lizbeth Penaloza Work Phone: [facility] 09-29-2021 15:05-0400 Body height 185.42 cm Edgar Galloway Other [employer] Other 09-29-2021 15:05-0400 Body mass index (BMI) [Ratio] 19.13 kg/m2 Edgar Galloway Other [employer] Other 09-29-2021 15:05-0400 Body temperature 98.8 [degF] Edgar Galloway Other [employer] Other 09-29-2021 15:05-0400 Body weight 65.77 kg Edgar Galloway Other [employer] Other 09-29-2021 15:05-0400 Diastolic blood pressure 85 mm[Hg] Edgar Nilesh Other [employer] Other 09-29-2021 15:05-0400 Respiratory rate 18 /min Edgar Galloway Other [employer] Other 09-29-2021 15:05-0400 SaO2% (BldA) [Mass fraction] 99 % Edgar Galloway Other [employer] Other 09-29-2021 15:05-0400 Systolic blood pressure 136 mm[Hg] Edgar Nilesh Other [employer] Other 07-19-2021 11:15-0400 Body temperature 97.5 [degF] Yoselin Times Work Phone: [facility] 07-19-2021 11:15-0400 Diastolic blood pressure 80 mm[Hg] Yoselin Times Work Phone: [facility] 07-19-2021 11:15-0400 Heart rate 70 /min Yoselin Times Work Phone: [facility] 07-19-2021 11:15-0400 Respiratory rate 14 /min Yoselin Times Work Phone: [facility] 07-19-2021 11:15-0400 SaO2% (BldA) [Mass fraction] 96 % Yoselin Times Work Phone: [facility] 07-19-2021 11:15-0400 Systolic blood pressure 128 mm[Hg] Yoselin Times Work Phone: [facility] 07-19-2021 09:40-0400 Body height 182.9 cm Yoselin Times MD Work Phone: [facility] 07-19-2021 09:40-0400 Body mass index (BMI) [Ratio] 20.48 kg/m2 Yoselin Times MD Work Phone: [facility] 07-19-2021 09:40-0400 Body weight 68.49 kg Yoselin Times MD Work Phone: [facility] 07-18-2021 22:09-0400 Heart rate 61 /min Yoselin Times MD Work Phone: [facility] 07-15-2021 15:04-0400 Body height 182.9 cm Yoselin Times MD Work Phone: [facility] 07-15-2021 15:04-0400 Body mass index (BMI) [Ratio] 20.48 kg/m2 Yoselin Times MD Work Phone: [facility] 07-15-2021 15:04-0400 Body weight 68.49 kg Yoselin Times Work Phone: [facility] 07-15-2021 15:04-0400 Diastolic blood pressure 69 mm[Hg] Yoselin Times Work Phone: [facility] 07-15-2021 15:04-0400 Heart rate 84 /min Yoselin Times Work Phone: [facility] 07-15-2021 15:04-0400 Respiratory rate 18 /min Yoselin Times Work Phone: [facility] 07-15-2021 15:04-0400 Systolic blood pressure 151 mm[Hg] Yoselin Times Work Phone: [facility] 07-06-2021 14:58-0400 Diastolic blood pressure 82 mm[Hg] Victoriano Chandler MD Work Phone: [facility] 07-06-2021 14:58-0400 Heart rate 71 /min Victoriano Chandler MD Work Phone: [facility] 07-06-2021 14:58-0400 Systolic blood pressure 135 mm[Hg] Victoriano Chandler MD Work Phone: [facility] Encounters Encounter Date Encounter Type Care Provider Facility Start: 10-10-2023 End: 10-10-2023 Refill Chey Paz MD Work Phone: [facility] Comment on above: Refill Start: 09-17-2023 End: 09-18-2023 Refill Dana Ordonez COMMISSIONED SALES ASSOCIATE-MONUMENT SETTER HELPER Work Phone: [facility] Comment on above: Refill Start: 08-29-2023 End: 08-29-2023 ambulatory JOSEPH [facility] Start: 08-09-2023 End: 08-09-2023 ambulatory [facility] Start: 06-15-2023 End: 06-15-2023 ambulatory UNKNOWN PROVIDER Facility:[facility] Start: 05-13-2023 Letter encounter Victoriano perrin MD Work Phone: [facility] Start: 02-08-2023 ambulatory Camron garcia PharmD Work Phone: [facility] Start: 02-04-2023 Letter encounter Victoriano perrin MD Work Phone: [facility] Start: 01-23-2023 Telephone encounter Lara jeronimo MD Work Phone: [facility] Oncology Medical Start: 01-22-2023 Telephone encounter Lara jeronimo MD Work Phone: [facility] Comment on above: Speak with provider Start: 01-12-2023 End: 01-12-2023 Subsequent hospital visit by physician Alta Ramirez RD Work Phone: [facility] Comment on above: Dx: NO SHOW (Primary Dx) Start: 01-12-2023 End: 01-13-2023 ambulatory UNKNOWN PROVIDER Facility:[facility] Start: 12-30-2022 Refill Dana Ordonez COMMISSIONED SALES ASSOCIATE-MONUMENT SETTER HELPER Work Phone: [facility] Comment on above: Refill Start: 12-29-2022 ambulatory UNKNOWN PROVIDER Facili ty:[facility] Start: 12-29-2022 End: 12-29-2022 Telemedicine consultation with patient Dana Ordonez COMMISSIONED SALES ASSOCIATE-MONUMENT SETTER HELPER Work Phone: [facility] Oncology Palliative Care Comment on above: NO SHOW (Primary Dx) Start: 12-20-2022 End: 12-21-2022 ambulatory UNKNOWN PROVIDER Facility:[facility] Start: 12-20-2022 End: 12-20-2022 Subsequent hospital visit by physician Alta Ramirez RD Work Phone: [facility] Oncology Medical Comment on above: Dx: NO SHOW (Primary Dx) Start: 12-07-2022 End: 12-08-2022 ambulatory [facility] Facility:[facility] Start: 12-07-2022 End: 12-07-2022 Subsequent hospital visit by physician Jessika Acosta RN [facility] Oncology Medical Comment on above: Dx: Anal cancer (HCC ) (Primary Dx) Start: 12-07-2022 End: 12-07-2022 Office outpatient visit 15 minutes Mitra Ramos MD, PhD Work Phone: [facility] Radiation Oncology Comment on above: Anal squamous cell c arcinoma (HCC) (Primary Dx); Body mass index (BMI) 19.9 or less, adult Start: 12-01-2022 End: 12-01-2022 ambulatory UNKNOWN PROVIDER Facility:[facility] Start: 12-01-2022 End: 12-01-2022 Phys/qhp telephone evaluation 11-20 min Dana Ordonez COMMISSIONED SALES ASSOCIATE-MONUMENT SETTER HELPER Work Phone: [facility] Oncology Palliative Care Comment on above: Anal cancer (HCC); Use of opiates for therapeutic purposes; Palliative care encounter; Cancer related pain; Palliative care by specialist; Neuropathic pain; Nausea and vomiting, unspecified vomiting type Start: 11-29-2022 End: 11-29-2022 ambulatory Sanju Farmer MD Work Phone: [facility] Radiation Oncology Start: 11-29-2022 Documentation procedure Sanju Farmer MD Work Phone: [facility] Radiation Oncology Start: 11-28-2022 End: 11-28-2022 ambulatory [facility] Start: 11-27-2022 End: 11-27-2022 ambulatory UNKNOWN [facility]ER [facility] Start: 11-27-2022 End: 11-27-2022 ambulatory Victoriano Chandler MD Work Phone: [facility] Radiation Oncology Start: 11-27-2022 End: 11-27-2022 Documentation procedure Trilogy Work Phone: [facility] Radiation Oncology Start: 11-24-2022 End: 11-24-2022 ambulatory UNKNOWN PROVIDER Facility:[facility] Start: 11-23-2022 End: 11-23-2022 ambulatory UNKNOWN PROVIDER Facility:[facility] Start: 11-23-2022 End: 11-23-2022 Office outpatient visit 40 minutes Dana URENA Work Phone: [facility] Oncology Palliative Care Comment on above: Anal cancer (HCC) (P rimary Dx); Use of opiates for therapeutic purposes; Palliative care encounter; Cancer related pain; Palliative care by specialist; Neuropathic pain; Nausea and vomiting, unspecified vomiting type Start: 11-22-2022 End: 11-22-2022 ambulatory [facility]KNOWN [facility]ER [facility] Start: 11-21-2022 End: 11-21-2022 [facility]ulatory [facility] Start: 11-20-2022 End: 11-21-2022 ambulatory [facility] Start: 11-17-2022 End: 11-18-2022 ambulatory [facility]ER [facility] Start: 11-17-2022 End: 11-17-2022 Subsequent hospital visit by physician Onc Treatment [facility] Oncology Medical Comment on above: Dx: Anal cancer (HCC ) (Primary Dx) Start: 11-16-2022 End: 11-16-2022 ambulatory [facility] Start: 11-14-2022 End: 11-14-2022 ambulatory UNKNOWN PROVIDER Facility:[facility] Start: 11-13-2022 End: 11-14-2022 ambulatory UNKNOWN PROVIDER Facility:[facility] Start: 11-13-2022 End: 11-13-2022 Subsequent hospital visit by physician Alta Emmanuel RN Work Phone: [facility] Oncology Medical Comment on above: Dx: Anal squamous ce ll carcinoma (HCC) (Primary Dx) Start: 11-10-2022 End: 11-10-2022 ambulatory UNKNOWN PROVIDER Facility:[facility] Start: 11-09-2022 End: 11-09-2022 ambulatory UNKNOWN PROVIDER Facility:[facility] Start: 11-08-2022 End: 11-08-2022 ambulatory UNKNOWN PROVIDER Facility:[facility] Start: 11-07-2022 End: 11-07-2022 ambulatory UNKNOWN PROVIDER Facility:[facility] Start: 11-06-2022 ambulatory UNKNOWN PROVIDER Facili ty:[facility] Start: 11-06-2022 End: 11-06-2022 Clinical Support Pathology Provider [facility] Pathology Comment on above: Arrived Start: 11-03-2022 Orders Only Jana Veloz RN [facility] Radiation Oncology Start: 2022 End: 11-02-2022 Evaluation and management of inpatient LARA BRELL Facility:[facility] Start: 10-31-2022 End: 2022 Evaluation and management of inpatient LARA BRELL Facility:[facility] Start: 10-31-2022 End: 10-31-2022 Subsequent hospital visit by physician Jameson Renae MD Work Phone: [facility] Radiology Comment on above: Arrived Start: 10-31-2022 End: 11-02-2022 Evaluation and management of inpatient Jameson Renae MD Work Phone: [facility] GC [address] A Comment on above: Dx: Anal squamous ce ll carcinoma (HCC) (Primary Dx) Start: 10-31-2022 End: 10-31-2022 ambulatory LARA BRELL Facility:[facility] Start: 10-31-2022 End: 10-31-2022 ambulatory LARA BRELL Facility:[facility] Start: 10-31-2022 End: 10-31-2022 ambulatory UNKNOWN PROVIDER Facility:[facility] Start: 10-30-2022 End: 10-30-2022 ambulatory UNKNOWN PROVIDER Facility:[facility] Start: 10-27-2022 End: 10-27-2022 ambulatory UNKNOWN PROVIDER Facility:[facility] Start: 10-26-2022 End: 10-26-2022 ambulatory [facility]ER [facility] Start: 10-25-2022 End: 10-25-2022 ambulatory UNKNOWN PROVIDER [facility] Start: 10-24-2022 End: 10-24-2022 ambulatory UNKNOWN PROVIDER [facility] Start: 10-23-2022 End: 10-23-2022 ambulatory UNKNOWN PROVIDER Facility:[facility] Start: 10-20-2022 End: 10-20-2022 ambulatory UNKNOWN PROVIDER [facility] Start: 10-19-2022 End: 10-19-2022 ambulatory UNKNOWN PROVIDER [facility] Start: 10-19-2022 End: 10-20-2022 ambulatory UNKNOWN PROVIDER Facility:[facility] Start: 10-19-2022 End: 10-20-2022 Office outpatient new 60 minutes Dana Ordonez APRN-MONUMENT SETTER HELPER Work Phone: [facility] Oncology Palliative Care Comment on above: Palliative care enco unter (Primary Dx); Palliative care by specialist; Cancer related pain; Body mass index (BMI) 20.0-20.9, adult Start: 10-18-2022 End: 10-18-2022 ambulatory UNKNOWN PROVIDER Facility:[facility] Start: 10-17-2022 End: 10-17-2022 ambulatory UNKNOWN PROVIDER Facility:[facility] Start: 10-16-2022 End: 10-17-2022 ambulatory UNKNOWN PROVIDER Facility:[facility] Start: 10-16-2022 End: 10-16-2022 Subsequent hospital visit by physician Lyn Baum RN Work Phone: [facility] Oncology Medical Comment on above: Dx: Perianal mass (P rimary Dx) Start: 10-16-2022 End: 10-16-2022 Office outpatient visit 40 minutes Ky Vegas APRN-CARD GRINDER HELPER Work Phone: [facility] Oncology Medical Comment on above: Dx: Anal squamous ce ll carcinoma (HCC) (Primary Dx) Start: 10-11-2022 ambulatory Jennifer solis BSN Work Phone: [facility] Care Management/Patient Access Start: 10-11-2022 Coordination of care plan Robbin ratna JOINER Work Phone: [facility] Care Management/Patient Access Comment on above: care coordination Start: 10-06-2022 End: 10-06-2022 Specialty Pharmacy Camron Roque PharmD Work Phone: [facility] Comment on above: Specialty Pharmacy M edication Refill (Xeloda) Start: 10-06-2022 End: 10-06-2022 Nursing evaluation of patient and report Rad Onc Nurse [facility] Radiation Oncology Comment on above: Anal squamous cell c arcinoma (HCC) (Primary Dx) Start: 10-03-2022 End: 10-04-2022 ambulatory UNKNOWN PROVIDER Facility:[facility] Start: 10-03-2022 End: 10-03-2022 ambulatory UNKNOWN PROVIDER Facility:[facility] Start: 10-03-2022 End: 10-03-2022 Subsequent hospital visit by physician Bv Op Ct Scan 1 Work Phone: [facility] CT Scan Comment on above: Anal cancer (HCC) Start: 10-03-2022 End: 10-03-2022 Subsequent hospital visit by physician Leticia Holden RN Work Phone: [facility] Oncology Medical Comment on above: Dx: Anal squamous ce ll carcinoma (HCC) Start: 10-03-2022 End: 10-03-2022 ambulatory UNKNOWN PROVIDER Facility:[facility] Start: 10-03-2022 End: 10-03-2022 Office outpatient visit 25 minutes Lara Smith MD Work Phone: [facility] Oncology Medical Comment on above: Dx: Anal squamous ce ll carcinoma (HCC) (Primary Dx) Start: 10-03-2022 End: 10-03-2022 Office outpatient new 60 minutes Mitra Ramos MD, PhD Work Phone: [facility] Radiation Oncology Comment on above: Anal squamous cell c arcinoma (HCC) (Primary Dx); Body mass index (BMI) 20.0-20.9, adult Start: 10-02-2022 Telephone encounter Ky lovelace COMMISSIONED SALES ASSOCIATE-CARD GRINDER HELPER Work Phone: [facility] Oncology Medical Start: 09-27-2022 Orders Only Lara Nieto Work Phone: [facility] Oncology Medical Start: 09-17-2022 ambulatory Yoselin varghese MD Work Phone: [facility] Oncology Medical Start: 09-08-2022 Telephone encounter Yoselin Padron MD Work Phone: [facility] Surgery General Comment on above: Discuss results test /procedures Discuss results test /procedures; Discuss treatment plan Start: 09-06-2022 Telephone encounter Yoselin Padron MD Work Phone: [facility] Surgery General Comment on above: Discuss results test /procedures Start: 08-28-2022 End: 08-29-2022 ambulatory YOSELIN PADRON Facility:[facility] Start: 08-25-2022 ambulatory UNKNOWN PROVIDER Facili ty:[facility] Start: 08-25-2022 Encounter for other preprocedural examination [facility] Start: 08-09-2022 [facility] Yoselin Padron MD Work Phone: [facility] Surgery General Start: 07-25-2022 End: 07-26-2022 ambulatory UNKNOWN PROVIDER Facility:[facility] Start: 06-27-2022 Letter encounter Lara Smith MD Work Phone: [facility] Oncology Medical Start: 06-27-2022 Telephone encounter Yobani whitney DDS, MD Work Phone: [facility] Oncology Medical Start: 06-01-2022 End: 06-02-2022 ambulatory Nahum Jones Facility:[facility] Start: 06-01-2022 End: 06-01-2022 Patient encounter procedure Nahum Jones [facility] Start: 01-11-2022 End: 01-11-2022 Registered Recurring DNP Lizbeth Penaloza [facility] Start: 01-11-2022 End: 02-08-2022 ambulatory DNP Lizbeth Penaloza Work Phone: [facility] Work Phone: Start: 12-02-2021 End: 12-02-2021 Registered Recurring DNP Lizbeth Penaloza Work Phone: [facility] Start: 12-01-2021 ambulatory PCP UNKNOWN Facility:[facility] Start: 12-01-2021 Office consultation new/estab patient 80 min Referring Provider Unknown [id number] Work Phone: Start: 11-04-2021 ambulatory PCP UNKNOWN Facility:[facility] Start: 11-03-2021 End: 11-03-2021 Registered Recurring DNP Lizbeth Penaloza Work Phone: [facility] Start: 10-26-2021 End: 10-26-2021 Registered Recurring DNP Lizbteh Penaloza Work Phone: [facility] Start: 10-03-2021 End: 10-03-2021 ambulatory Edgar Galloway Other [employer] Other Start: 10-03-2021 Telephone encounter Edgar Galloway [facility] [address] Start: 09-29-2021 End: 09-29-2021 Patient encounter procedure DNP Lizbeth Penaloza Work Phone: [facility] Start: 09-29-2021 End: 09-29-2021 ambulatory Edgar Galloway Other [employer] Other Start: 09-29-2021 Office outpatient vi sit 15 minutes Edgar Galloway [facility] Start: 08-10-2021 Telephone [facility] Start: 08-01-2021 Telephone encounter Penelope Guzmán RN [facility] General Comment on above: Care Coordination Start: 04-20-2022 Telephone encounter Yoselin Padron MD Work Phone: [facility] Surgery General Start: 07-26-2021 Telephone encounter Yoselin Padron MD Work Phone: [facility] Surgery General Comment on above: Discuss results test /procedures Start: 07-19-2021 End: 07-19-2021 Subsequent hospital visit by physician Yoselin Padron MD Work Phone: [facility] Main OR Comment on above: Anal lesion (Primary Dx); Perianal mass Start: 07-15-2021 End: 07-19-2021 Office outpatient new 45 minutes Yoselin Padron MD Work Phone: [facility] General Comment on above: Perianal mass (Prima ry Dx); Abnormal electrocardiogram (ECG) (EKG); Body mass index (BMI) 20.0-20.9, adult Start: 07-15-2021 Admission to [facility] Yoselin Padron MD Work Phone: [facility] Surgery General Start: 07-15-2021 Telephone encounter Karolina Johnson [facility] Surgery General Start: 07-12-2021 Letter encounter Karolina Johnson [facility] Surgery General Start: 07-06-2021 End: 07-07-2021 Office outpatient new 45 minutes Victoriano Chandler MD Work Phone: [facility] Dermatology Comment on above: 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) Start: 06-09-2020 End: 06-09-2020 Patient encounter procedure Lizbeth Penaloza -Ultrasound [facility] Start: 05-28-2020 End: 05-28-2020 Patient encounter procedure Lizbeth Penaloza -Ultrasound [facility] Procedures Date Procedure Procedure Detail Performing Clinician Start: 12-07-2022 Introduction needle/intracatheter vein Benton-Min Ascencion COMMISSIONED SALES ASSOCIATE-CARD GRINDER HELPER Work Phone: Start: 12-07-2022 Iv infusion hydratio n initial 31 min-1 hour Benton-Min Ascencion COMMISSIONED SALES ASSOCIATE-CARD GRINDER HELPER Work Phone: Start: 11-27-2022 RAD ONC ARIA SESSION SUMMARY Rad Onc Provider Start: 11-23-2022 Drug screen, single Jatinder ie Damko COMMISSIONED SALES ASSOCIATE-MONUMENT SETTER HELPER Work Phone: Start: 11-13-2022 Iv infusion hydratio n initial 31 min-1 hour Lara Smith MD Work Phone: Start: 11-13-2022 Chemotx admn iv push tq 04/09 sbst/drug Lara Smith MD Work Phone: Start: 11-13-2022 Assay of magnesium Kinsey Smith MD Work Phone: Start: 11-13-2022 Hepatic function panel Lara Smith MD Work Phone: Start: 11-06-2022 Assay of magnesium Kinsey Smith MD Work Phone: Start: 11-06-2022 Hepatic function panel Lara Smith MD Work Phone: Start: 11-02-2022 Assay of magnesium Mandola n Nolanw PA-C Work Phone: Start: 2022 Cul prsmptv pthgnc o rganism scrn w/colony estimj Jameson Renae MD Work Phone: Start: 2022 Drug screen quantita tive vancomycin Autumn Trujillo [facility] Work Phone: Start: 2022 Assay of magnesium Mandola n Kadow PA-C Work Phone: Start: 10-31-2022 Radiologic exam ches t single view Souleymane Kadow PA-C Work Phone: Start: 10-31-2022 Ecg routine ecg w/le ast 12 lds trcg only w/o i&r Souleymane Kadow PA-C Work Phone: Start: 10-16-2022 Chemotx admn iv push tq 04/09 sbst/drug Lara Smith MD Work Phone: Start: 10-16-2022 Introduction needle/intracatheter vein Lara Smith MD Work Phone: Start: 10-03-2022 Ct abdomen & pelvis w/contrast material Yoselin Padron MD Work Phone: Start: 10-03-2022 Assay of magnesium Kinsey Smith MD Work Phone: Start: 10-03-2022 Hepatic function panel Lara Smith MD Work Phone: Start: 12-15-2021 MRI of pelvis with contrast RUBIN Lizbeth Ca Work Phone: Start: 09-29-2021 Plain X-ray of left hand DNP Lizbeth Ca Work Phone: Start: 07-15-2021 Ecg routine ecg w/le ast 12 lds trcg only w/o i&r To Be Assigned Start: 06-09-2020 US scan of thyroid Aidee Penaloza Start: 05-28-2020 Doppler ultrasonogra phy of bilateral carotid arteries Lizbeth Penaloza Urine culture DNP Lizbeth Tavares elenakelli Work Phone: Plan of Treatment Date Care Activity Detail Author Start: 05-28-2026 Cholesterol [Mass/volume] in Serum or Plasma Cholesterol [facility] Start: 06-15-2023 End: 06-15-2023 ambulatory 06/15/2023 10:00 AM EST Financial [facility] Office [address] [place] [id number] Shiloh, Financial Floor Polisher [facility] Business Office Start: 03-13-2023 End: 03-13-2023 Patient encounter procedure 03/13/2023 1:00 PM EST Office Visit [facility] Radiation Oncology [address] [place] [id number] Mitra Ramos MD, PhD [address] [place] [address] [facility] Radiation Oncology Start: 03-08-2023 End: 12-08-2023 PET+CT Guidance for limited for localization of tumor of Unspecified body region-- W [id number] IV and W contrast IV PET SUBSEQ/DIAG CT NCK/CHST/ABD/PEL W/ Imaging Routine Anal squamous cell carcinoma (HCC) Expected: 03/08/2023 (Approximate), Expires: 12/08/2023 [employer] Work Phone: Comment on above: Expected: 03/08/2023 (Approximate), Expires: 12/08/2023 Start: 03-07-2023 End: 03-07-2023 Patient encounter procedure [facility] Radiology Start: 02-06-2023 End: 02-06-2023 Patient encounter procedure 02/06/2023 10:00 AM EDT [facility] [address] [place] [id number] Lara Smith MD [address] [place] [id number] [facility] Start: 01-24-2023 End: 01-24-2023 [facility] Start: 01-23-2023 End: 01-23-2023 Patient encounter procedure 01/23/2023 9:30 AM EDT Appointment [facility] Medical [address] [place] [address] Ky Vegas APRN-CNS [address] [place] [id number] [facility] On[facility] Medical Start: 01-16-2023 End: 01-16-2023 Patient encounter procedure 01/16/2023 9:30 AM EDT Appointment [facility] Medical [address] [place] [id number] Lara Smith MD [address] [place] [id number] [facility] Start: 01-12-2023 End: 01-12-2023 Patient encounter procedure 01/12/2023 11:00 AM EDT Appointment [facility] [address] [place] [address] [place] [address] [facility] Oncology Medical Start: 01-09-2023 End: 01-09-2023 Patient encounter procedure 01/09/2023 9:30 AM EDT Appointment [facility] Rad[facility] CT [address] [place] [address] [facility] CT Start: 01-07-2023 Influenza vaccination Influenza Vacc ine (#1) [facility] Start: 12-29-2022 End: 12-29-2022 Telemedicine consultation with patient 12/29/2022 8:00 AM EDT Telemedicine [facility] Oncology Palliative Care [address] [place] [address] Dana Ordonez APRN-MONUMENT SETTER HELPER [address] [place] [address] [place] [address] [facility] Oncology Palliative Care Start: 12-20-2022 End: 12-20-2022 Patient encounter procedure 12/20/2022 9:00 AM EDT Appointment [facility] Oncology Medical [address] [place] [address] [place] [address] [facility] Oncology Medical Start: 12-08-2022 Influenza vaccination Influenza Vacc ine (#1) [facility] Start: 12-07-2022 End: 12-07-2022 Patient encounter procedure [facility] Radiation Oncology Start: 12-01-2022 End: 12-01-2022 Telemedicine consultation with patient 12/01/2022 9:00 AM EDT Telemedicine [facility] Oncology Palliative Care [address] [place] [address] Dana Ordonez, COMMISSIONED SALES ASSOCIATE-MONUMENT SETTER HELPER [address] [place] [address] [facility] Oncology Palliative Care Start: 11-29-2022 End: 11-29-2022 ambulatory [facility] Start: 11-28-2022 End: 11-28-2022 ambulatory [facility] Start: 11-27-2022 End: 11-27-2022 ambulatory [facility] Start: 11-24-2022 End: 11-24-2022 ambulatory [facility] Start: 11-23-2022 End: 11-23-2022 Patient encounter procedure 11/23/2022 2:30 PM EDT Office Visit [facility] [address] [place] [address] Dana Ordonez APRN-MONUMENT SETTER HELPER [address] [place] [address] [facility] Start: 11-23-2022 End: 11-23-2022 ambulatory [facility] Start: 11-22-2022 End: 11-22-2022 ambulatory [facility] Start: 11-21-2022 End: 11-21-2022 ambulatory [facility] Start: 11-20-2022 End: 11-20-2022 ambulatory [facility] Start: 11-17-2022 End: 11-17-2022 Patient encounter procedure 11/17/2022 3:00 PM EDT [facility] [address] [place] [address] [facility] Start: 11-17-2022 End: 11-17-2022 ambulatory [facility] Start: 11-16-2022 End: 11-16-2022 ambulatory [facility] Start: 11-16-2022 End: 11-16-2022 Patient encounter procedure 11/16/2022 1:00 PM EDT Office Visit [facility]iative [facility] [address] [place] [address] Dana Ordonez, COMMISSIONED SALES ASSOCIATE-MONUMENT SETTER HELPER [address] [place] [address] [facility] Palliative [facility] Start: 11-15-2022 End: 11-15-2022 ambulatory [facility] Start: 11-14-2022 End: 11-14-2022 ambulatory [facility] Start: 11-13-2022 End: 11-13-2022 ambulatory [facility] Start: 11-13-2022 End: 11-13-2022 Patient encounter procedure [facility] Start: 11-10-2022 End: 11-10-2022 ambulatory [facility] Start: 11-09-2022 End: 11-09-2022 ambulatory [facility] Start: 11-09-2022 End: 11-09-2022 Patient encounter procedure 11/09/2022 1:30 PM EDT [facility] [address] [facility] [place] [address] Dana Ordonez APRN-MONUMENT SETTER HELPER [address] [facility] [place] [address] [facility] Start: 11-08-2022 End: 11-08-2022 ambulatory [facility] Start: 11-07-2022 End: 11-07-2022 ambulatory [facility] Start: 11-06-2022 End: 11-06-2022 ambulatory [facility] Start: 11-06-2022 End: 12-04-2022 CBC W Auto Differential panel - Blood COMPLETE BLOOD COUNT W/DIFF Lab Routine Anal cancer (HCC) Expected: 11/06/2022, Expires: 12/04/2022 [facility] Work Phone: Comment on above: Expected: 11/06/2022 , Expires: 12/04/2022 Start: 11-03-2022 End: 11-03-2022 ambulatory [facility] Start: 11-02-2022 End: 11-02-2022 ambulatory [facility] Start: 11-02-2022 Screening for malign ant neoplasm of breast Mammography [facility] Start: 2022 End: 2022 ambulatory [facility] Start: 10-31-2022 End: 10-31-2022 ambulatory [facility] Start: 10-30-2022 End: 10-30-2022 ambulatory [facility] Start: 10-27-2022 End: 10-27-2022 ambulatory [facility] Start: 10-26-2022 End: 10-26-2022 ambulatory [facility] Start: 10-25-2022 End: 10-25-2022 Patient encounter procedure 10/25/2022 2:00 PM EDT Office [facility] [address] [place] [address] Dana Ordonez APRN-ESTIVEN [address] [place] [address] [facility] Start: 10-25-2022 End: 10-25-2022 ambulatory [facility] Start: 10-24-2022 End: 10-24-2022 ambulatory [facility] Start: 10-23-2022 End: 10-23-2022 ambulatory [facility] Start: 10-20-2022 End: 10-20-2022 ambulatory [facility] Start: 10-19-2022 End: 10-19-2022 ambulatory [facility] Start: 10-19-2022 End: 10-19-2022 Patient encounter procedure [facility] Start: 10-18-2022 End: 10-18-2022 ambulatory [facility] Start: 10-17-2022 End: 10-17-2022 ambulatory [facility] Start: 10-16-2022 End: 10-16-2022 ambulatory 10/16/2022 1:20 PM EDT Assessment/Treatment Report [facility] [address] [place] [address] Mitra Ramos MD, PhD [address] [place] [address] [facility] Radiation Oncology Start: 10-16-2022 End: 10-16-2022 Patient encounter procedure [facility] Oncology Medical Start: 10-06-2022 End: 10-06-2022 Patient encounter procedure 10/06/2022 9:00 AM EDT Office Visit [facility] Radiation Oncology [address] [place] [phone] Mitra Ramos MD, PhD [address] [place] [address] [facility] Radiation Oncology Start: 10-04-2022 End: 10-04-2022 Patient encounter procedure 10/04/2022 8:30 AM EDT Appointment [facility] Oncology Medical [address] [place] [phone] Lara Smith MD [address] [place] [address] [facility] Oncology Medical Start: 10-03-2022 End: 10-03-2022 Patient encounter procedure [facility] Radiation Oncology Start: 10-03-2022 End: 10-03-2022 Nursing evaluation of patient and report 10/03/2022 8:30 AM EDT Nurse Visit [facility] Radiation Oncology [address] [place] [address] [facility] Radiation Oncology Start: 08-25-2022 End: 08-25-2022 Patient encounter procedure 08/25/2022 Office Visit General Surgery Yoselin Padron MD [address] [place] [phone] [facility] Surgery General Start: 07-25-2022 End: 07-25-2022 Patient encounter procedure 07/25/2022 Appointment Oncology Medical Lara Smith MD [address] [place] [address] [facility] Oncology Medical Start: 01-07-2022 Influenza vaccination Influenza Vacc ine (#1) [facility] Start: 12-21-2021 [facility] Provider: Gracy Hayden , Status: Pen, Time: 9:30 AM [facility] Provider: Kory Hayden, Status: Pen, Time: 9:30 AM [id number] Work Phone: Start: 08-19-2021 End: 08-19-2021 Patient encounter procedure 08/19/2021 Office Visit General Surgery Yoselin Padron MD [address] [place] [phone] [facility] General Surgery Start: 07-19-2021 End: 07-19-2021 Admission to same day surgery center 07/19/2021 Surgery General Surgery Yoselin Padron MD [address] [place] [address] EUA, anal mass biopsies [facility] Main OR Comment on above: EUA, anal mass biops ies Start: 07-19-2021 End: 07-19-2021 EUA, RECTAL EUA, RECTAL Routine scheduled Perianal mass 07/19/2021 11:27 AM EDT [facility] Start: 07-19-2021 Subsequent hospital visit by physician 07/19/2021 Hospital Encounter General Surgery Yoselin Padron MD [address] [place] [address] [facility] Main OR Start: 07-19-2021 End: 07-19-2021 EUA, RECTAL EUA, RECTAL Routine scheduled Perianal mass 07/19/2021 10:09 AM EDT [facility] Start: 07-18-2021 End: 07-18-2021 Nursing evaluation of patient and report 07/18/2021 Nurse Visit Presurgical Evaluation [facility] Pre Surgical Evaluation Start: 07-15-2021 End: 07-15-2021 Patient encounter procedure 07/15/2021 Office Visit General Surgery Yoselin Padron MD [address] [place] [id number] [facility] Surgery General Start: 01-09-2021 COVID-19 Vaccine (3 - Booster for Pfizer series) COVID-19 Vaccine (3 - Booster for Pfizer series) [facility] Start: 11-07-2020 Influenza vaccination Influenza Vacc ine (#1) [facility] Start: 10-04-2020 COVID-19 Vaccine (2 - Pfizer series) COVID-19 Vaccine (2 - Pfizer series) [facility] Start: 10-04-2020 COVID-19 Vaccine (3 - Booster for Pfizer series) COVID-19 Vaccine (3 - Booster for Pfizer series) [facility] Start: 09-06-2020 COVID-19 Vaccine (3 - Pfizer risk series) COVID-19 Vaccine (3 - Pfizer risk series) [facility] Start: 08-30-2020 COVID-19 Vaccine (2 - Pfizer risk series) COVID-19 Vaccine (2 - Pfizer risk series) [facility] Start: 08-30-2020 COVID-19 Vaccine (2 - Pfizer series) COVID-19 Vaccine (2 - Pfizer series) [facility] Start: 2018 Hepatitis B (HBV) Vaccine (optional start 60+ years) Hepatitis B (HBV) Vaccine (optional start 60+ years) [facility] Start: 2018 RSV vaccine (optiona l 60+ years) RSV vaccine (optional 60+ years) [facility] Start: 2008 Measurement of occul t blood in single stool specimen FIT [facility] Start: 2008 Screening for malign ant neoplasm of breast Mammography [facility] Start: 2008 Screening for malign ant neoplasm of colon CRC Screening [facility] Start: 2008 Varicella-zoster vaccine (product) Shingles (RZV) Vaccine (1 of 2) [facility] Start: 11-02-2003 Cholesterol [Mass/volume] in Serum or Plasma Cholesterol [facility] Start: 11-02-2003 Screening for malign ant neoplasm of colon [facility] Start: 1998 Screening for malign ant neoplasm of breast Mammography [facility] Start: 11-02-1979 Screening for malign ant neoplasm of cervix Pap Smear [facility] Start: 1977 Hepatitis A (HAV) Vaccine (optional start 19+ years) Hepatitis A (HAV) Vaccine (optional start 19+ years) [facility] Start: 1977 Shingles (RZV) Vacci ne (1 of 2) Shingles (RZV) Vaccine (1 of 2) [facility] Start: 1976 Hepatitis C screening Hepatitis C An tibody [facility] Start: 1976 Tetanus + diphtheria + acellular pertussis vaccine (product) Tdap Booster [facility] Start: 1973 HIV screening [facility] Test [facility] Start: 1964 Pneumococcal [facility] Start: 1958 COVID-19 Vaccine ( formulation) COVID-19 Vaccine ( formulation) [facility] Start: 1958 Screening for malign ant neoplasm of colon [facility] End: 10-04-2023 Assay of magnesium MAGNESIUM Lab STAT Anal squamous cell carcinoma (HCC) 24 Occurrences starting 10/03/2022 until 10/04/2023, 1 completed [facility] Comment on above: 24 Occurrences start ing 10/03/2022 until 10/04/2023, 1 completed Assay of magnesium MAGNESIUM Lab Routine Daily until discontinued starting 2022, 2 completed [facility] Comment on above: Daily until disconti nued starting 2022, 2 completed End: 10-04-2023 Basic metabolic 2000 panel - Serum or Plasma BASIC METABOLIC PANEL Lab STAT Anal squamous cell carcinoma (HCC) 24 Occurrences starting 10/03/2022 until 10/04/2023, 1 completed [facility] Work Phone: Comment on above: 24 Occurrences start ing 10/03/2022 until 10/04/2023, 1 completed End: 11-03-2022 Basic metabolic 2000 panel - Serum or Plasma BASIC METABOLIC PANEL Lab Routine Morning Blood Draw for 1 Occurrences starting 11/03/2022 until 11/03/2022 [facility] Work Phone: Comment on above: Morning Blood Draw f or 1 Occurrences starting 11/03/2022 until 11/03/2022 BIOPSY, RECTAL BIOPSY, RECTAL R outine scheduled Perianal mass [facility] End: 10-04-2023 CBC W Auto Differential panel - Blood COMPLETE BLOOD COUNT W/DIFF Lab STAT Anal squamous cell carcinoma (HCC) 24 Occurrences starting 10/03/2022 until 10/04/2023, 1 completed [facility] Comment on above: 24 Occurrences start ing 10/03/2022 until 10/04/2023, 1 completed CBC W Auto Different ial panel - Blood COMPLETE BLOOD COUNT W/DIFF Lab Routine Daily until discontinued starting 2022, 2 completed [facility] Work Phone: Comment on above: Daily until disconti nued starting 2022, 2 completed Comprehensive metabo lic 2000 panel - Serum or Plasma [facility] Work Phone: Comprehensive metabo lic 2000 panel - Serum or Plasma [facility] Comprehensive metabo lic 2000 panel - Serum or Plasma [facility] Computed tomography for radiotherapy planning [facility] Work Phone: Computed tomography for radiotherapy planning [facility] Drug screen, single PAIN MANAGEM ENT PANEL Lab Routine Palliative care encounter Palliative care by specialist Cancer related pain Ordered: 10/19/2022 [facility] Work Phone: Comment on above: Ordered: 10/19/2022 Drug screen, single PAIN MANAGEM ENT PANEL Lab Routine Anal cancer (HCC) Use of opiates for therapeutic purposes 11/23/2022 2:09 PM EDT [facility] Work Phone: End: 10-04-2023 Hepatic function panel HEPATIC FUNCTION PANEL Lab STAT Anal squamous cell carcinoma (HCC) 24 Occurrences starting 10/03/2022 until 10/04/2023, 1 completed [facility] Comment on above: 24 Occurrences start ing 10/03/2022 until 10/04/2023, 1 completed MR Pelvis WO and W contrast IV [facility] Work Phone: MR Pelvis WO and W contrast IV [facility] Patient Education PET-CT Scan [facility] Work Phone: Surgical pathology procedure SPECIMEN FOR SURGICAL PATH Anatomic Pathology Routine Perianal mass Release Upon Ordering for 1 Occurrences starting 07/19/2021 [facility] Work Phone: Comment on above: Release Upon Orderin g for 1 Occurrences starting 07/19/2021 [facility] Immunizations Immunization Date Immunization Notes Care Provider Fa cility 08-09-2020 Pfizer-BioNTech COVID-19 Vacc 30 MCG/0.3ML Intramuscular Suspension Referring Provider Unknown [facility] 07-23-2020 Pfizer-BioNTech COVID-19 Vacc 30 MCG/0.3ML Intramuscular Suspension Referring Provider Unknown [id number] Work Phone: Payers Date Payer Category Payer Unknown [facility] 2021 Self-pay [id number] 2021 Unknown [id number] 2021 Unknown [id number]. 1.13.56.2.7.3. [id number] 1958 Unknown [id number] 2.16.840.1.467087.3.579.2.356 1958 Unknown [id number] 2.16.840.1.114311.3.579.2.356 1958 Unknown [id number] 2.16.840.1.332248.3.579.2.727 1958 Unknown [id number] 2.16.840.1.395528.3.579.2.732 1958 Unknown [id number] 2.16.840.1.452570.3.579.2.732 1958 Unknown [id number] 2.16.840.1.510595.3.579.2.73 1958 Unknown [id number] 2.16.840.1.956617.3.579.2.732 1958 Unknown [id number] 2.16.840.1.285819.3.579.2.73 1958 Unknown [id number] 2.16.840.1.034988.3.579.2. 1958 Unknown [id number] 2.16.840.1.583028.3.579.2. 1958 Unknown [id number] 2.16.840.1.441827.3.579.2. 1958 Unknown [id number] 2.16.840.1.187108.3.579.2. 1958 Unknown [id number] 2.16.840.1.942996.3.579.2. 1958 Unknown [id number] 2.16.840.1.032030.3.579.2. 1958 Unknown [id number] 2.16840.1.809910.3.579.2 1958 Unknown [id number] 2.16840.1.698180.3.579.2. 1958 Unknown [id number] 2.16840.1.243603.3.579.2 1958 Unknown [id number] 2.16840.1.890058.3.579.2. 1958 Unknown [id number] 2.16840.1.734737.3.579.2. 1958 Unknown [id number] 2.16.840.1.686908.3.579.2. 1958 Unknown [id number] 2.16840.1.521564.3.579.2. 1958 Unknown [id number] 2.16.840.1.935557.3.579.2. 1958 Unknown [id number] 2.16840.1.121026.3.579.2 1958 Unknown [id number] 2.16.840.1.437814.3.579.2.73 1958 Unknown [id number] 2.16.840.1.739444.3.579.2. 1958 Unknown [id number] 2.16.840.1.158842.3.579.2. 1958 Unknown [id number] 2.16840.1.563751.3.579.2. 1958 Unknown [id number] 2..840.1.109721.3.579.2. 1958 Unknown [id number] 2.840.1.026142.3.579.2 1958 Unknown [id number] 2.840.1.285037.3.579.2 1958 Unknown [id number] 2.840.1.772610.3.579.2 1958 Unknown [id number] 2.840.1.580123.3.579.2 1958 Unknown [id number] 2.840.1.183323.3.579.2. 1958 Unknown [id number] 2.840.1.223764.3.579.2 1958 Unknown [id number] 2.840.1.412585.3.579.2. 1958 Unknown [id number] 2.16840.1.393200.3.579.2 1958 Unknown [id number] 2.16840.1.585288.3.579.2 1958 Unknown [id number] 2.840.1.247496.3.579.2 1958 Unknown [id number] 2.16.840.1.660396.3.579.2.73 1958 Unknown [id number] 2.16.840.1.220136.3.579.2. 1958 Unknown [id number] 2.16.840.1.406888.3.579.2. 1958 Unknown [id number] 2.16.840.1.675688.3.579.2. 1958 Unknown [id number] 2.16.840.1.083792.3.579.2. 1958 Unknown [id number] 2.16840.1.868042.3.579.2 1958 Unknown [id number] 2.840.1.486474.3.579.2 1958 Unknown [id number] 2.16840.1.917637.3.579.2 1958 Unknown [id number] 2.16840.1.665010.3.579.2 1958 Unknown [id number] 2.16840.1.040461.3.579.2 1958 Unknown [id number] 2.840.1.166484.3.579.2. 1958 Unknown [id number] 2.16840.1.013144.3.579.2. 1958 Unknown [id number] 2.16840.1.807683.3.579.2. 1958 Unknown [id number] 2.16.840.1.290169.3.579.2. 1958 Unknown [id number] 2.16.840.1.848158.3.579.2. 1958 Unknown [id number] 2.16.840.1.000032.3.579.2.732 1958 Unknown [id number] 2.16.840.1.683187.3.579.2.732 1958 Unknown [id number] 2.16.840.1.828205.3.579.2.732 1958 Unknown [id number] 2.16.840.1.736359.3.579.2.73 1958 Unknown [id number] 2.16.840.1.017170.3.579.2.73 1958 Unknown [id number] 2.16.840.1.818681.3.579.2. 1958 Unknown [id number] 2.16.840.1.773985.3.579.2.73 1958 Unknown [id number] 2.16.840.1.506875.3.579.2. 1958 Unknown [id number] 2.16.840.1.072227.3.579.2. 1958 Unknown [id number] 2.16.840.1.774413.3.579.2. 1958 Unknown [id number] 2.16.840.1.397491.3.579.2. 1958 Unknown [id number] 2.16.840.1.276148.3.579.2.73 Private Health Insurance [id number] Self-pay [id number] Unknown [id number] Unknown HCAP/HFA/FAP Active [id number] Unknown HCAP/HFA/FAP Active [id number] Unknown [id number] 2.16.840.1.881246.3.579.2.531 Social History Date Type Detail Facility Tobacco smoking stat [facility] Unknown if ever smoked [facility] Start: 1960 Sex Assigned At Female [facility] Tobacco smoking stat [facility] Tobacco smoking consumption unknown [facility] Start: 1960 Sex Assigned At Not on file [facility] Start: 07-15-2021 End: 08-25-2022 Tobacco smoking status NHIS Smokes tobacco daily [facility] History of tobacco use [facility] Start: 10-12-2022 End: 12-07-2022 Sex Assigned At [facility] Start: 10-26-2021 End: 01-11-2022 Tobacco smoking status NHIS Smoker (finding) [facility] Tobacco smoking status No Smokin g Status Entered [facility] Start: 08-25-2022 End: 10-12-2022 Cigarettes smoked current (pack per day) - Reported 0.5 [facility] Work Phone: Start: 08-25-2022 Tobacco use and exposure Smokeless tobacco non-user [facility] Start: 08-29-2022 End: 12-07-2022 Alcohol intake Current drinker of alcohol (finding) [facility] Within the last year , have you been afraid of your partner or ex-partner? No [facility] Work Phone: How often do you get together with friends or relatives? Patient declined [facility] Do you belong to any clubs or organizations such as restorationist groups, unions, fraternal or athletic groups, or school groups? Yes [facility] Are you now , , , , never or living with a partner? Living with partner [facility] How hard is it for y ou to pay for the very basics like food, housing, medical care, and heating Very hard [facility] Do you feel stress - tense, restless, nervous, or anxious, or unable to sleep at night because your mind is troubled all the time - these days [OSQ] Rather much [facility] (I/We) worried wheth er (my/our) food would run out before (I/we) got money to buy more. Often true [facility] The food that (I/we) bought just didn't last, and (I/we) didn't have money to get more. Sometimes true [facility] Start: 10-12-2022 Education 15 [facility] Goals Date Patient Goal Desired Activity /State Clinical Notes 07-06-2021 to 02-08-2023 Camron Roque PharmD - 02/08/2023 4:10 PM EDTTelephone Encounter - Lara Smith MD - 01/23/2023 12:09 PM EDTTelephone Encounter - Lara Smith MD - 01/23/2023 12:09 PM EDTPatient Instructions Note Date & Type Note Facility 02-08-2023 History of Present illness Narrative Specialty Pharmacy Program Wrap Up/Discharge Note: Type of discharge: Discharge from all Specialty Pharmacy services. Opt-out date: 02/08/2023 Reason for discharge: Therapy completed Notes: patient completed concurrent xeloda/RT Ongoing/unmet needs: follow up/surveillance Discharge plan has been communicated to the patient; patient verbalizes understanding. Services can be resumed upon request from the patient or provider at any time. Thank you, Camron Roque, PharmD. Clinical Oncology Specialty Pharmacist [phone] documented in this encounter [facility] 01-23-2023 Telephone encounter Note Spoke with Dr. Darcy Ellis from [facility] where patient was admitted with sepsis from PNA and pulmonary emboli. Will be discharged today or tomorrow on eliquis and levaquin. Will cancel our f/u tomorrow and reschedule with her in 1-[address] Ellis will relay the message. Lara Smith MD [facility] 10-17-2023 Miscellaneous Notes Spoke with Dr. Darcy Ellis from [facility] where patient was admitted with sepsis from PNA and pulmonary emboli. Will be discharged today or tomorrow on eliquis and levaquin. Will cancel our f/u tomorrow and reschedule with her in 1-[address] Ellis will relay the message. Lara Smith MD documented in this encounter [facility] 01-23-[address] Ellis returning providers call requesting a call back. Can be reached at [phone]. [facility] 01-23-[address] Ellis returning providers call requesting a call back. Can be reached at [phone]. Dr. Darcy Ellis with [facility] calling requesting a return call regarding mutual patient. Patient is currently inpatient at [facility] and Dr. Ellis would like to update Dr. Smith. Can be reached at [phone]. Thank you. documented in this encounter [facility] 01-22-[address] Darcy Ellis with [facility] calling requesting a return call regarding mutual patient. Patient is currently inpatient at [facility] and Dr. Ellis would like to update Dr. Smith. Can be reached at [phone]. Thank you. [facility] 12-29-2022 History of Present illness Narrative This encounter was opened in error. Patient was a No-Show. Please disregard. Called patient x2. No answer, unable to leave VM as VM box is full. documented in this encounter [facility] 12-19-2022 History of Present illness Narrative Pt called x2. Voicemail left x2. This encounter was opened in error. Patient was a No-Show. Please disregard. documented in this encounter [facility] 12-07-2022 History of Present illness Narrative Patient was identified by name and date of . Jessika Acosta RN Patient at risk for falls:No Falls Risk protocol implemented: N/A Anal cancer (HCC) [262820] Pt presented to clinic for IVF. PIV placed to LFA on 2nd attempt using 22G angiocath, positive blood return noted. 1L NS bolus administered per orders. Pall care [employer] chairside during infusion. PIV removed, no s/s infiltrate or extravasation. Patient verbalized follow-up instructions and discharged to home in stable condition. Jessika Acosta RN documented in this encounter [facility] 12-07-2022 History of Present illness Narrative Patient here for follow up appointment with Dr Ramos, post radiation therapy for anal cancer, which was completed on 11/29/22. Treatment area pelvis with skin intact. No erythema or hyperpigmentation noted. Some anal pain- seeing Palliative care today. Appetite fair d/t c/o upset stomach. BP low and c/o feeling dizzy-getting IV hydration today.BM formed. Skin to perianal area starting to heal. Using Silvadene. No concerns or complaints at this time. Assessment conveyed to physician. PET ordered and will f/u in 3 months after. Patient was identified by name and date of . ABDI Coello Body Mass Index is 18.63. Body Surface Area is 1.82 square meters according to the formula of Maggy and Maggy. Patient at risk for falls:No Falls Risk protocol implemented: No Blood pressure 98/49, pulse 66, resp. rate 16, height 6' (1.829 m), weight 137 lb 6.4 oz (62.3 kg), SpO2 95 %. 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 The patient has progressed through prior treatment with topical cream. 2cm into posterior canal, 5cm arcelia-anal skin extension. PRIOR TREATMENT: 54 Gy in 30 fractions with lesser doses going to the elective pelvis, completing on 11/29/2022. The patient received concurrent mitomycin-C and Xeloda. TIME SINCE TREATMENT: 1 week INTERVAL HISTORY: The patient returned today to assess resolution of acute morbidity. Late in the treatment course she had been treated with oxycodone, and also Imodium for diarrhea. Narcotics were managed by palliative care, Dr. Dana Ordonez. Topical morbidity is improving considerably, and the patient is using Silvadene to good effect. There is increased pigmentation surrounding the area of desquamation, and desquamation agrees with pretreatment disease distribution. She has some abdominal cramping but is persistent, diarrhea has resolved, and there is increased flatulence, all likely due to recent RT. She also has been experiencing persistent low-grade nausea, with dizziness, and will see Medical Oncology later today. There was considerable weight loss over the course of treatment. A CT has already been scheduled for early January. She has upcoming appointments with Dr. Padron as well. PAST MEDICAL HISTORY: Past Medical History: Diagnosis Date Anxiety Depression with anxiety 08/25/2022 Diverticulitis of large intestine with abscess without bleeding 08/17/2016 Heavy tobacco smoker >10 cigarettes per day 08/17/2016 Perianal mass 07/15/2021 Added automatically from request for surgery [id number] Vitamin D deficiency 12/19/2011 PAST SURGICAL HISTORY: Past Surgical History: Procedure Laterality Date BIOPSY, RECTAL N/A 08/28/2022 Procedure: BIOPSY, RECTAL, ANAL MASS BIOPSY; Surgeon: Yoselin Padron MD; Location: [facility]OPER[facility]IVE SERVICES; Service: General COLECTOMY open, for diverticulitis EUA, RECTAL N/A 07/19/2021 Procedure: EUA, anal mass biopsies; Surgeon: Ysoelin Padron MD; Location: PERIOPERATIVE SERVICES; Service: General Social History Tobacco Use Smoking Status Every Day Packs/day: 0.50 Types: Cigarettes Smokeless Tobacco Never Social History Substance and Sexual Activity Alcohol Use Yes Alcohol/week: 4.0 standard drinks of alcohol Types: 4 Glasses of wine per week ALLERGIES: Allergies Allergen Reactions Lactase Diarrhea Dilaudid [Hydromorphone] Rash Molds & Smuts Pollen Extract Eye watering, headaches Eye watering, headaches CURRENT MEDICATIONS: Prior to Admission medications Medication Sig Start Date End Date Taking? Authorizing Provider busPIRone (BUSPAR) 5 MG tablet Take 1 Tablet by mouth 2 times daily. 12/04/22 Dana Ordonez APRN-CNP sertraline (ZOLOFT) 50 MG tablet Take 1 Tablet by mouth daily. 12/01/22 12/31/22 Dana Ordonez APRN-CNP oxyCODONE 5 MG immediate release tablet Take 1 Tablet by mouth every 6 hours as needed for Pain for up to 7 days. 12/01/22 12/08/22 Dana Ordonez APRN-CNP prochlorperazine (COMPAZINE) 10 MG tablet Take 1 Tablet by mouth every 6 hours as needed for Nausea for up to 14 days. 11/23/22 12/08/22 Dana Ordonez APRN-CNP lidocaine (XYLOCAINE) 5 % ointment Apply topically 3 times daily as needed. Apply thin layer to affected area. Mix equal parts of Lidocaine and Silvadene three times a day. 11/15/22 Mitra Ramos MD, PhD silver sulfadiazine (SILVADENE) 1 % cream Apply topically 2 times daily. Apply thin layer to affected area. Mix equal parts of Lidocaine and Silvadene 2-3 times a day 11/08/22 Mitra Ramos MD, PhD naloxone 4 mg/0.1 mL nasal liquid Use 1 [place] in one nostril (alternate sides) as needed for Drug Overdose for up to 1 dose. Every 2-3 mins. until help arrives. 11/02/22 Jameson Renae MD albuterol (PROVENTIL HFA) INHALATION HFA inhaler (VENTOLIN,PROAIR,PROVENTIL) 90mcg Inhale 2 Puffs by mouth every 4 hours as needed for Wheezing. 10/31/22 Kana Velazquez MD benzonatate (Tessalon Perles) 100 MG capsule Take 1 Capsule by mouth 3 times daily as needed. 10/31/22 Kana Velazquez MD lidocaine-prilocaine (E mLA) 2.5-2.5 % cream Apply thin layer to affected area. 10/25/22 Mitra Ramos MD, PhD famotidine (Pepcid) 20 MG tablet Take 1 Tablet by mouth 2 times daily. 10/16/22 Ky [place] APRN-CARD GRINDER HELPER ondansetron (ZOFRAN-ODT) 8 MG disintegrating tablet Take 1 Tablet by mouth every 12 hours as needed for Nausea. 10/11/22 Lara Smith MD capecitabine (XELODA) 500 MG tablet Take 3 tablets (1500 mg) by mouth in twice a day, 12 hours apart on each day radiotherapy is given, Sunday through Sunday. Doses should be taken with water within 30 minutes after a meal. Swallow tablets whole. Avoid cutting or crushing tablets.(825mg/m2/dose). 10/11/22 Lara Smith MD cetirizine (ZyrTEC) 10 MG tablet Cetirizine (Zyrtec) 10 mg Tablet Active 10 MG PO Daily October 26, 2021 12:00am 10/26/21 NON-EPICCARE, PROVIDER hydrOXYzine pamoate (VISTARIL) 25 MG capsule Take by mouth. 06/09/21 NON-EPICCARE, PROVIDER senna (SENOKOT) 8.6 MG tablet Take 1 Tablet by mouth daily as needed for Constipation. 08/28/22 Shira Taylor MD lidocaine (XYLOCAINE) 5 % ointment Apply a thick amount to affected area 2 times daily as needed. 08/28/22 Shira Taylor MD ECOG PERFORMANCE STATUS: 1 VITAL SIGNS: Vitals Recorded in This Encounter No data found in the last 1 encounters. PHYSICAL EXAMINATION: GENERAL: No acute distress. Alert, oriented, cooperative. Seen with . HEENT: WNL. NECK: No cervical or supraclavicular adenopathy. ABDOMEN: Nontender, nondistended, normal bowel sounds, soft, no masses. Increased pigmentation in regions consistent with recent RT. No palpable inguinal adenopathy. EXTREMITIES: No C/C/E, and in particular no lower extremity lymphedema. NEUROLOGIC: Ambulatory, no focal deficit. RECTAL: Persistent desquamation in the perianal region, in agreement with the pretreatment distribution of disease. There is new skin formation. A rectal exam was performed, and this revealed no persistent induration. The patient tolerated this fairly well, with mild discomfort. No bleeding. No evidence of rectal involvement. STUDIES: CT pending, early 01/29 IMPRESSION/PLAN: Excellent response to treatment, with no palpable persistent disease. Topical morbidity is resolving at the expected rate. There was no evidence of adenopathy. We will await the CT imaging, coming up in January. I plan to get a PET-CT at 3 months post treatment and see the patient back at that point. Thank you for allowing us to participate in the care of this patient. 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 The patient has progressed through prior treatment with topical cream. 2cm into posterior canal, 5cm arcelia-anal skin extension. Treatment Dates: 10/16/22 - 11/29/22 Site: Dose: Total # fractions: Dose per fraction: Energy: Field Technique PTV primary site 54Gy 30 1.8Gy 6MV photons IMRT/IGRT (VMAT) SIB PTV elective pelvis and inguinal nodes 45Gy 30 1.5Gy 6MV photons IMRT/IGRT (VMAT) SIB Concurrent therapy: The patient received concurrent mitomycin-C and Xeloda Technique: Radiotherapy was delivered utilizing intensity modulation to spare normal tissue, implemented with VMAT technique (volumetric modulated arc therapy). This was used to reduce dose to the bladder, bowel, and femoral heads. VMAT was implemented with 4 coaxial rotating arcs comprised of 6MV photons, modulated with an MLC. Simultaneous integrated boost (SIB) technique was used to differentially treat target volumes based on risk. Daily cone beam CT image guidance was used to allow reduced treatment planning margins, and reduce associated collateral dose. CBCT IGRT was aligned to pelvic skeletal anatomy. 0.5 cm bolus was used to increase perineal superficial dose, although much of this was auto-bolused in the frog-leg treatment position. Bolus D/C'd midway through treatment. Treatment course: Radiation treatment was well tolerated with the expected toxicity. She experienced diarrhea throughout treatment cores, effectively controlled with the Imodium. There were no significant urinary symptoms. There was no rectal bleeding. There was a brisk perianal reaction consistent with the initial malignancy and condyloma, and by completion this was confluent with a relatively mild skin reaction outside of the original distribution of malignancy. Superficial dose was increased with bolus, discontinued midway through treatment due to the skin reaction. Topical skin morbidity was effectively palliated with glucometer pro cream with lidocaine. At completion she was doing fairly well. Plan: Follow up in 1 week to assess resolution of treatment related morbidity. No imaging scheduled at this time. Thank you again for allowing us to participate in the care of this patient. 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 The patient has progressed through prior treatment with topical cream. 2cm into posterior canal, 5cm arcelia-anal skin extension. Treatment Dates: 10/16/22 - 11/29/22 Site: Dose: Total # fractions: Dose per fraction: Energy: Field Technique PTV primary site 54Gy 30 1.8Gy 6MV photons IMRT/IGRT (VMAT) SIB PTV elective pelvis and inguinal nodes 45Gy 30 1.5Gy 6MV photons IMRT/IGRT (VMAT) SIB Concurrent therapy: The patient received concurrent mitomycin-C and Xeloda Technique: Radiotherapy was delivered utilizing intensity modulation to spare normal tissue, implemented with VMAT technique (volumetric modulated arc therapy). This was used to reduce dose to the bladder, bowel, and femoral heads. VMAT was implemented with 4 coaxial rotating arcs comprised of 6MV photons, modulated with an MLC. Simultaneous integrated boost (SIB) technique was used to differentially treat target volumes based on risk. Daily cone beam CT image guidance was used to allow reduced treatment planning margins, and reduce associated collateral dose. CBCT IGRT was aligned to pelvic skeletal anatomy. 0.5 cm bolus was used to increase perineal superficial dose, although much of this was auto-bolused in the frog-leg treatment position. Bolus D/C'd midway through treatment. Treatment course: Radiation treatment was well tolerated with the expected toxicity. She experienced diarrhea throughout treatment cores, effectively controlled with the Imodium. There were no significant urinary symptoms. There was no rectal bleeding. There was a brisk perianal reaction consistent with the initial malignancy and condyloma, and by completion this was confluent with a relatively mild skin reaction outside of the original distribution of malignancy. Superficial dose was increased with bolus, discontinued midway through treatment due to the skin reaction. Topical skin morbidity was effectively palliated with Glucan Pro cream with lidocaine. At completion she was doing fairly well. Plan: Follow up in 1 week to assess resolution of treatment related morbidity. No imaging scheduled at this time. Thank you again for allowing us to participate in the care of this patient. Sincerely, Mitra Ramos MD PhD Director, Board Certified Radiation Oncologist [facility] Radiation Oncology [address] [place] [address] documented in this encounter [facility] 12-01-2022 History of Present illness Narrative Images from the original note were not included. PALLIATIVE CARE CONSULT NOTE: Requesting provider: Dr. Ramos Reason for consult: Symptom management + GOC Cancer Diagnosis: Anal Cell Cancer Cancer Treatment: Concurrent chemoradiation Chief Complaint / HPI: Amber Maldonado is a 62 year old female with a history of depression, anxiety, IBS, and anal cell cancer. --- Rectal pain - worse with BM. Oxycodone 3 -- in a day. --- helps. Diarrhea - 4-5 times daily minimum -- makes rectal pain worse. More anxious, irritable. Breakthrough nausea, but no vomiting. Updated IHPI: Pain is better controlled. Taking oxycodone 1-2 times daily. Nausea controlled. Diarrhea better controlled with increase in imodium - has not needed lomotil. States stools are starting to form. Has not tried buspar yet -- anxiety better managed with symptoms managed Specific Palliative Care ROS Initial Assessment: Pain No pain Dyspnea Denies Nausea/Vomiting Zofran -- as needed Constipation N/A Diarrhea Moving bowels daily - not diarrhea Weakness/Fatigue N/A Anxiety/Depression 50 mg Zoloft Hydroxyzine Appetite/Nutrition Good Insomnia/Sleep Getting to sleep is hard - but once asleep OK Other N/A SPIRITUAL / CULTURAL / PSYCHOSOCIAL / SUPPORT SYSTEM: Live at home with [facility] 2 children 38 year old - [place] (first grandchild due in 4 weeks -- will be girl) 36 year old lives in [place] --- Deven and Boris Cueva Pat - sister - coming to stay for a bit Advanced Directives: Code status - FULL CODE Living will/DPOA- - [place] - primary \OARRS was reviewed today. Additional documentation is necessary because (indicate below): OARRS Additional Documentation: Complete the following requirements (necessary when OARRS documentation is required): Concern for Abuse/diversion present: No Document progress toward treatment objectives: Stable Document functional status of patient ADL s : Stable Adverse Effects: No Analgesia Beneficial Aberrant Behaviors (RED FLAGS listed above): No 4. Treatment agreement/consent filed for opioid analgesics and stimulants? (Required when opioid analgesics ? 50 MME/Day for longer than 6 weeks or stimulants in compliance with State law and/or [facility] policy) No 5. Consider consult to security specialist. Referral to addiction medicine specialist is not indicated. Patient was advised that controlled substances may impair judgement, ability to process information, drive, or operate dangerous machinery. Controlled substances should not be mixed with alcohol or any other controlled medications without express direction from provider. Patient was informed of risks for misuse and potential for addiction, and advised on safe storage and disposal of controlled substances HISTORY: Medical - Past Medical History: Diagnosis Date Anxiety Depression with anxiety 08/25/2022 Diverticulitis of large intestine with abscess without bleeding 08/17/2016 Heavy tobacco smoker >10 cigarettes per day 08/17/2016 Perianal mass 07/15/2021 Added automatically from request for surgery [id number] Vitamin D deficiency 12/19/2011 Surgical Review of patient's past surgical history indicates: COLECTOMY open, for diverticulitis EUA, RECTAL (07/19/2021) Procedure: EUA, anal mass biopsies; Surgeon: Yoselin Padron MD; Location: PERIOPERATIVE SERVICES; Service: General BIOPSY, RECTAL (08/28/2022) Procedure: BIOPSY, RECTAL, ANAL MASS BIOPSY; Surgeon: Yoselin Padron MD; Location: PERIOPERATIVE SERVICES; Service: General Social- Social Determinants of Health Tobacco Use: High Risk (11/20/2022) Patient History Smoking Tobacco Use: Every Day Smokeless Tobacco Use: Never Passive Exposure: Not on file Alcohol Use: Not on file Financial Resource Strain: High Risk (10/12/2022) Overall Financial Resource Strain (CARDIA) Difficulty of Paying Living Expenses: Very hard Food Insecurity: Food Insecurity Present (10/12/2022) Hunger Vital Sign Worried About Running Out of Food in the Last Year: Often true Ran Out of Food in the Last Year: Sometimes true Transportation Needs: No Transportation Needs (10/12/2022) PRAPARE - Transportation Lack of Transportation (Medical): No Lack of Transportation (Non-Medical): No Physical Activity: Insufficiently Active (10/12/2022) Exercise Vital Sign Days of Exercise per Week: 4 days Minutes of Exercise per Session: 10 min Stress: Stress Concern Present (10/12/2022) [employer] - Occupational Stress Questionnaire Feeling of Stress : Rather much Social Connections: Unknown (10/12/2022) Social Connection and Isolation Panel [NHANES] Frequency of Communication with Friends and Family: Three times a week Frequency of Social Gatherings with Friends and Family: Patient refused Attends Mandaeism Services: Patient refused Active Member of Clubs or Organizations: Yes Attends Club or Organization Meetings: More than 4 times per year Marital Status: Living with partner Intimate Partner Violence: Not At Risk (10/12/2022) Humiliation, Afraid, Rape, and Kick questionnaire Fear of Current or Ex-Partner: No Emotionally Abused: No Physically Abused: No Sexually Abused: No Depression: Not on file Housing Stability: High Risk (10/12/2022) Housing Stability Vital Sign Unable to Pay for Housing in the Last Year: Yes Number of Places Lived in the Last Year: 1 Unstable Housing in the Last Year: No CURRENT MEDICATIONS: Current Outpatient Medications Medication Instructions albuterol (PROVENTIL HFA) INHALATION HFA inhaler (VENTOLIN,PROAIR,PROVENTIL) 90mcg 2 Puffs, Inhalation, EVERY 4 HOURS PRN benzonatate (TESSALON PERLES) 100 mg, Oral, 3 TIMES DAILY PRN busPIRone (BUSPAR) 5 mg, Oral, 2 TIMES DAILY capecitabine (XELODA) 500 MG tablet Take 3 tablets (1500 mg) by mouth in twice a day, 12 hours apart on each day radiotherapy is given, Sunday through Sunday. Doses should be taken with water within 30 minutes after a meal. Swallow tablets whole. Avoid cutting or crushing tablets.(825mg/m2/dose). cetirizine (ZyrTEC) 10 MG tablet Cetirizine (Zyrtec) 10 mg Tablet Active 10 MG PO Daily October 26, 2021 12:00am diphenoxylate-atropine (Lomotil) 2.5-0.025 MG per tablet 1 Tablet, Oral, 2 TIMES DAILY PRN famotidine (PEPCID) 20 mg, Oral, 2 TIMES DAILY hydrOXYzine pamoate (VISTARIL) 25 MG capsule Oral lidocaine (XYLOCAINE) 5 % ointment Apply a thick amount to affected area 2 times daily as needed. lidocaine (XYLOCAINE) 5 % ointment Topical, 3 TIMES DAILY PRN, Apply thin layer to affected area. Mix equal parts of Lidocaine and Silvadene three times a day. lidocaine-prilocaine (E mLA) 2.5-2.5 % cream Apply thin layer to affected area. naloxone 4 mg, Nasal (alternate sides), PRN, Every 2-3 mins. until help arrives. ondansetron (ZOFRAN-ODT) 8 mg, Oral, EVERY 12 HOURS PRN oxyCODONE 5 mg, Oral, EVERY 6 HOURS PRN prochlorperazine (COMPAZINE) 10 mg, Oral, EVERY 6 HOURS PRN senna (SENOKOT) 8.6 mg, Oral, DAILY PRN sertraline (ZOLOFT) 50 mg, Oral, DAILY silver sulfadiazine (SILVADENE) 1 % cream Topical, 2 TIMES DAILY, Apply thin layer to affected area. Mix equal parts of Lidocaine and Silvadene 2-3 times a day ALLERGIES: Allergies Allergen Reactions Lactase Diarrhea Dilaudid [Hydromorphone] Rash Molds & Smuts Pollen Extract Eye watering, headaches Eye watering, headaches PHYSICAL EXAMINATION: Physical Exam HENT: Head: Normocephalic. Mouth/Throat: Mouth: Mucous membranes are moist. Cardiovascular: Rate and Rhythm: Normal rate. Pulmonary: Effort: Pulmonary effort is normal. Breath sounds: Normal breath sounds. Musculoskeletal: General: Normal range of motion. Skin: General: Skin is warm. Neurological: General: No focal deficit present. Mental Status: She is alert and oriented to person, place, and time. LABS/ IMAGING: CBC (Last 5 results in the past 365 days) WBC RBC Hgb Hct MCV RDW Plt 11/13/22 1033 4.1 3.17 11.2 32.8 104 13.9 182 11/06/22 1343 4.0 3.24 11.5 33.1 102 13.8 72 11/02/22 0545 0.8 3.25 11.4 33.6 103 13.2 41 11/01/22 0303 0.8 3.15 11.1 32.7 104 13.3 36 10/31/22 1351 1.0 3.48 12.1 35.7 103 13.3 41 Basic Metabolic Panel (Last 5 results in the past 365 days) Na K Cl CO2 Gap Glu BUN Cr Ca Mg PO4 11/13/22 1033 1.8 11/13/22 1033 138 3.8 105 24 13 98 14 1.12 9.2 11/06/22 1343 1.5 11/06/22 1343 135 4.2 103 24 12 141 16 1.20 8.8 11/02/22 0545 138 4.0 110 18 14 96 12 1.15 8.9 11/02/22 0545 2.0 11/01/22 0303 135 4.2 108 17 14 112 14 1.10 8.3 11/01/22 0303 2.8 11/01/22 0303 3.5 10/31/22 1351 1.6 10/31/22 1351 134 4.3 103 22 13 94 17 1.27 9.2 Results for orders placed or performed during the hospital encounter of 11/13/22 (from the past 63865 hour(s)) HEPATIC FUNCTION PANEL Collection Time: 11/13/22 10:33 AM Result Value Ref Range Albumin 3.8 3.4 - 5.1 g/dL Bilirubin, Direct 0.12 0.10 - 0.30 mg/dL Bilirubin, Total 0.7 0.1 - 1.5 mg/dL Alkaline Phosphatase 116 40 - 200 IU/L ALT (SGPT) 7 7 - 40 IU/L AST (SGOT) 12 7 - 40 IU/L Protein, Total 6.6 5.7 - 8.1 g/dL *Note: Due to a large number of results and/or encounters for the requested time period, some results have not been displayed. A complete set of results can be found in Results Review. IMPRESSION/ RECOMMENDATIONS: #Anxiety - Continue sertraline - discussed increasing...wants to wait - Stop Vistaril - Start buspar 5 mg PO BID - can increase to TID -- has not tried yet. Anxiety better since symptoms more controlled - Offered behavioral health referral - Discussed TGP #Cancer related pain - Start oxycodone 5 mg PO Q6H PRN --- 1-2 times daily on average #Nausea - Continue Zofran 8 mg Q12H - Start compazine 10 mg Q6H PRN for breakthrough nausea #Diarrhea - Increase imodium --- 8 tabs a day - If still having diarrhea - can start lomotil BID - not needed #Anal Cell Cancer Discussed the role of palliative care in their care to support the patient and optimize symptom management , functional improvement, and to maximize or maintain their highest quality of life regardless of treatment or response to treatments or disease -- Discussed prognosis and disease trajectory in typical oncology patient -- Espoused hope for the best, prepare for the worse approach to care -- Discussed how the cancer center team will help guide them on medical decision making based on the patient's values, goals, disease stage/activity/trajectory, performance status and prognosis. #GOC/Advanced care planning/ Psychosocial support - FULL CODE - Davy Baeztrenadiane is primary support -- would like to complete ACD this visit and make Santosh her HCPOA. AYANNA Oropeza documented in this encounter [facility] 11-29-2022 History of Present illness Narrative Amber Maldonado is s/p 30/30 fractions, 5400 cgy. The treatment volume is the pelvis. Her appetite is good, stamina is good. Amber Maldonado has no new complaints or findings. There is no updated laboratory/imaging data Recommend: completing xrt, f/u in 4 weeks documented in this encounter [facility] 11-23-2022 Instructions Dana Ordonez APRN-CNP - 11/23/2022 3:12 PM EDT Pain: - Tylenol 1000 mg three times daily - Oxycodone 5 mg (1 tablet) every 6 hours as needed for breakthrough pain Anxiety: - Can stop the Hydroxyzine when start the buspar - Start buspar 5 mg (1 tablet) daily - increase to 3 times daily if needed after 3-5 days - Discussed increasing zoloft Diarrhea: - Increase imodium use -- can take up to 8 tablets (16 mg) total in 24 hour period - try this first - If not controlled with increased imodium - start Lomotil (1 tablet) twice a day. Can use imodium with this as needed to control diarrhea documented in this encounter [facility] 11-23-2022 History of Present illness Narrative Images from the original note were not included. PALLIATIVE CARE CONSULT NOTE: Requesting provider: Dr. Ramos Reason for consult: Symptom management + GOC Cancer Diagnosis: Anal Cell Cancer Cancer Treatment: Concurrent chemoradiation Chief Complaint / HPI: Amber Maldonado is a 62 year old female with a history of depression, anxiety, IBS, and anal cell cancer. IHPI: Rectal pain - worse with BM. Oxycodone 3 -- in a day. --- helps. Diarrhea - 4-5 times daily minimum -- makes rectal pain worse. More anxious, irritable. Breakthrough nausea, but no vomiting. Specific Palliative Care ROS Initial Assessment: Pain No pain Dyspnea Denies Nausea/Vomiting Zofran -- as needed Constipation N/A Diarrhea Moving bowels daily - not diarrhea Weakness/Fatigue N/A Anxiety/Depression 100 mg Zoloft Hydroxyzine Appetite/Nutrition Good Insomnia/Sleep Getting to sleep is hard - but once asleep OK Other N/A SPIRITUAL / CULTURAL / PSYCHOSOCIAL / SUPPORT SYSTEM: Live at home with [facility]afne Frost 2 children 38 year old - [place] (first grandchild due in 4 weeks -- will be girl) 36 year old lives in [place] --- Deven and Boris Cueva Pat - sister - coming to stay for a bit Advanced Directives: Code status - FULL CODE Living will/DPOA- - [place] - primary \OARRS was reviewed today. Additional documentation is necessary because (indicate below): OARRS Additional Documentation: Complete the following requirements (necessary when OARRS documentation is required): Concern for Abuse/diversion present: No Document progress toward treatment objectives: Stable Document functional status of patient ADL s : Stable Adverse Effects: No Analgesia Beneficial Aberrant Behaviors (RED FLAGS listed above): No 4. Treatment agreement/consent filed for opioid analgesics and stimulants? (Required when opioid analgesics ? 50 MME/Day for longer than 6 weeks or stimulants in compliance with State law and/or S policy) No 5. Consider consult to security specialist. Referral to addiction medicine specialist is not indicated. Patient was advised that controlled substances may impair judgement, ability to process information, drive, or operate dangerous machinery. Controlled substances should not be mixed with alcohol or any other controlled medications without express direction from provider. Patient was informed of risks for misuse and potential for addiction, and advised on safe storage and disposal of controlled substances HISTORY: Medical - Past Medical History: Diagnosis Date Anxiety Depression with anxiety 08/25/2022 Diverticulitis of large intestine with abscess without bleeding 08/17/2016 Heavy tobacco smoker >10 cigarettes per day 08/17/2016 Perianal mass 07/15/2021 Added automatically from request for surgery [id number] Vitamin D deficiency 12/19/2011 Surgical Review of patient's past surgical history indicates: COLECTOMY open, for diverticulitis EUA, RECTAL (07/19/2021) Procedure: EUA, anal mass biopsies; Surgeon: Yoselin Padron MD; Location: [facility]; Service: General BIOPSY, RECTAL (08/28/2022) Procedure: BIOPSY, RECTAL, ANAL MASS BIOPSY; Surgeon: Yoselin Padron MD; Location: [facility]; Service: General Social- Social Determinants of Health Tobacco Use: High Risk (11/20/2022) Patient History Smoking Tobacco Use: Every Day Smokeless Tobacco Use: Never Passive Exposure: Not on file Alcohol Use: Not on file Financial Resource Strain: High Risk (10/12/2022) Overall Financial Resource Strain (CARDIA) Difficulty of Paying Living Expenses: Very hard Food Insecurity: Food Insecurity Present (10/12/2022) Hunger Vital Sign Worried About Running Out of Food in the Last Year: Often true Ran Out of Food in the Last Year: Sometimes true Transportation Needs: No Transportation Needs (10/12/2022) PRAPARE - Transportation Lack of Transportation (Medical): No Lack of Transportation (Non-Medical): No Physical Activity: Insufficiently Active (10/12/2022) Exercise Vital Sign Days of Exercise per Week: 4 days Minutes of Exercise per Session: 10 min Stress: Stress Concern Present (10/12/2022) [employer] - Occupational Stress Questionnaire Feeling of Stress : Rather much Social Connections: Unknown (10/12/2022) Social Connection and Isolation Panel [NHANES] Frequency of Communication with Friends and Family: Three times a week Frequency of Social Gatherings with Friends and Family: Patient refused Attends Mandaeism Services: Patient refused Active Member of Clubs or Organizations: Yes Attends Club or Organization Meetings: More than 4 times per year Marital Status: Living with partner Intimate Partner Violence: Not At Risk (10/12/2022) Humiliation, Afraid, Rape, and Kick questionnaire Fear of Current or Ex-Partner: No Emotionally Abused: No Physically Abused: No Sexually Abused: No Depression: Not on file Housing Stability: High Risk (10/12/2022) Housing Stability Vital Sign Unable to Pay for Housing in the Last Year: Yes Number of Places Lived in the Last Year: 1 Unstable Housing in the Last Year: No CURRENT MEDICATIONS: Current Outpatient Medications Medication Instructions albuterol (PROVENTIL HFA) INHALATION HFA inhaler (VENTOLIN,PROAIR,PROVENTIL) 90mcg 2 Puffs, Inhalation, EVERY 4 HOURS PRN benzonatate (TESSALON PERLES) 100 mg, Oral, 3 TIMES DAILY PRN capecitabine (XELODA) 500 MG tablet Take 3 tablets (1500 mg) by mouth in twice a day, 12 hours apart on each day radiotherapy is given, Sunday through Sunday. Doses should be taken with water within 30 minutes after a meal. Swallow tablets whole. Avoid cutting or crushing tablets.(825mg/m2/dose). cetirizine (ZyrTEC) 10 MG tablet Cetirizine (Zyrtec) 10 mg Tablet Active 10 MG PO Daily October 26, 2021 12:00am docusate sodium (COLACE) 100 mg, Oral, 2 TIMES DAILY famotidine (PEPCID) 20 mg, Oral, 2 TIMES DAILY hydrOXYzine pamoate (VISTARIL) 25 MG capsule Oral lidocaine (XYLOCAINE) 5 % ointment Apply a thick amount to affected area 2 times daily as needed. lidocaine (XYLOCAINE) 5 % ointment Topical, 3 TIMES DAILY PRN, Apply thin layer to affected area. Mix equal parts of Lidocaine and Silvadene three times a day. lidocaine-prilocaine (E mLA) 2.5-2.5 % cream Apply thin layer to affected area. naloxone 4 mg, Nasal (alternate sides), PRN, Every 2-3 mins. until help arrives. naproxen (NAPROSYN) 500 MG tablet Oral, EVERY 12 HOURS ondansetron (ZOFRAN-ODT) 8 mg, Oral, EVERY 12 HOURS PRN senna (SENOKOT) 8.6 mg, Oral, DAILY PRN sertraline (ZOLOFT) 50 MG tablet 1 Tablet silver sulfadiazine (SILVADENE) 1 % cream Topical, 2 TIMES DAILY, Apply thin layer to affected area. Mix equal parts of Lidocaine and Silvadene 2-3 times a day ALLERGIES: Allergies Allergen Reactions Lactase Diarrhea Dilaudid [Hydromorphone] Rash Molds & Smuts Pollen Extract Eye watering, headaches Eye watering, headaches PHYSICAL EXAMINATION: Physical Exam HENT: Head: Normocephalic. Mouth/Throat: Mouth: Mucous membranes are moist. Cardiovascular: Rate and Rhythm: Normal rate. Pulmonary: Effort: Pulmonary effort is normal. Breath sounds: Normal breath sounds. Musculoskeletal: General: Normal range of motion. Skin: General: Skin is warm. Neurological: General: No focal deficit present. Mental Status: She is alert and oriented to person, place, and time. LABS/ IMAGING: CBC (Last 5 results in the past 365 days) WBC RBC Hgb Hct MCV RDW Plt 11/13/22 1033 4.1 3.17 11.2 32.8 104 13.9 182 11/06/22 1343 4.0 3.24 11.5 33.1 102 13.8 72 11/02/22 0545 0.8 3.25 11.4 33.6 103 13.2 41 11/01/22 0303 0.8 3.15 11.1 32.7 104 13.3 36 10/31/22 1351 1.0 3.48 12.1 35.7 103 13.3 41 Basic Metabolic Panel (Last 5 results in the past 365 days) Na K Cl CO2 Gap Glu BUN Cr Ca Mg PO4 11/13/22 1033 1.8 11/13/22 1033 138 3.8 105 24 13 98 14 1.12 9.2 11/06/22 1343 1.5 11/06/22 1343 135 4.2 103 24 12 141 16 1.20 8.8 11/02/22 0545 138 4.0 110 18 14 96 12 1.15 8.9 11/02/22 0545 2.0 11/01/22 0303 135 4.2 108 17 14 112 14 1.10 8.3 11/01/22 0303 2.8 11/01/22 0303 3.5 10/31/22 1351 1.6 10/31/22 1351 134 4.3 103 22 13 94 17 1.27 9.2 Results for orders placed or performed during the hospital encounter of 11/13/22 (from the past 36918 hour(s)) HEPATIC FUNCTION PANEL Collection Time: 11/13/22 10:33 AM Result Value Ref Range Albumin 3.8 3.4 - 5.1 g/dL Bilirubin, Direct 0.12 0.10 - 0.30 mg/dL Bilirubin, Total 0.7 0.1 - 1.5 mg/dL Alkaline Phosphatase 116 40 - 200 IU/L ALT (SGPT) 7 7 - 40 IU/L AST (SGOT) 12 7 - 40 IU/L Protein, Total 6.6 5.7 - 8.1 g/dL *Note: Due to a large number of results and/or encounters for the requested time period, some results have not been displayed. A complete set of results can be found in Results Review. IMPRESSION/ RECOMMENDATIONS: #Anxiety - Continue sertraline - discussed increasing...wants to wait - Stop Vistaril - Start buspar 5 mg PO BID - can increase to TID - Offered behavioral health referral - Discussed TGP #Cancer related pain - Start oxycodone 5 mg PO Q6H PRN #Nausea - Continue Zofran 8 mg Q12H - Start compazine 10 mg Q6H PRN for breakthrough nausea #Diarrhea - Increase imodium --- 8 tabs a day - If still having diarrhea - can start lomotil BID #Anal Cell Cancer Discussed the role of palliative care in their care to support the patient and optimize symptom management , functional improvement, and to maximize or maintain their highest quality of life regardless of treatment or response to treatments or disease -- Discussed prognosis and disease trajectory in typical oncology patient -- Espoused hope for the best, prepare for the worse approach to care -- Discussed how the cancer center team will help guide them on medical decision making based on the patient's values, goals, disease stage/activity/trajectory, performance status and prognosis. #GOC/Advanced care planning/ Psychosocial support - FULL CODE - Santosh Baez is primary support -- would like to complete ACD this visit and make Santosh her HCPOA. AYANNA Oropeza documented in this encounter [facility] 11-13-2022 History of Present illness Narrative Images from the original note were not included. Patient was identified by name and date of . Alta Emmanuel RN Patient at risk for falls:No Falls Risk protocol implemented: No CBC (Last 5 results in the past 365 days) WBC RBC Hgb Hct MCV RDW Plt 11/13/22 1033 4.1 3.17 11.2 32.8 104 13.9 182 11/06/22 1343 4.0 3.24 11.5 33.1 102 13.8 72 11/02/22 0545 0.8 3.25 11.4 33.6 103 13.2 41 11/01/22 0303 0.8 3.15 11.1 32.7 104 13.3 36 10/31/22 1351 1.0 3.48 12.1 35.7 103 13.3 41 Basic Metabolic Panel (Last 5 results in the past 365 days) Na K Cl CO2 Gap Glu BUN Cr Ca Mg PO4 11/13/22 1033 1.8 11/13/22 1033 138 3.8 105 24 13 98 14 1.12 9.2 11/06/22 1343 1.5 11/06/22 1343 135 4.2 103 24 12 141 16 1.20 8.8 11/02/22 0545 138 4.0 110 18 14 96 12 1.15 8.9 11/02/22 0545 2.0 11/01/22 0303 135 4.2 108 17 14 112 14 1.10 8.3 11/01/22 0303 2.8 11/01/22 0303 3.5 10/31/22 1351 1.6 10/31/22 1351 134 4.3 103 22 13 94 17 1.27 9.2 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 #22g PIV placed to right hand with positive blood return and patency. Labs obtained, resulted above, suitable for treatment. Patient admitted for neutropenic fever following last treatment, mitomycin and xeloda dose reductions. Patient reports understanding of new xeloda dosing (1,000 mg BID on days of radiation). Patient receiving pre-medications as ordered, tolerated mitomycin well without adverse reaction. Also receiving NS bolus for poor oral intake at home/diarrhea. Following treatment, PIV removed and patient discharged to radiation. Alta Emmanuel RN documented in this encounter [facility] 11-13-2022 Hospital Discharge instructions Alta Emmanuel RN - 11/13/2022 12:43 PM EDT Please start taking xeloda 1,000 MG twice daily (decrease from 1,500 mg twice daily) documented in this encounter [facility] 11-03-2022 Telephone encounter Note Patient was identified by name and date of . Jana Veloz RN Pt discharged from hospital yesterday for neutropenic fever. Radiation held d/t low ANC and Platelet count. Plan is for pt to get lab work 11/06 at least an hour before she comes in for radiation therapy. Lab work will be evaluated by Dr Ramos. Pt understands plan and states she is feeling a little better. Discussed neutropenic and bleeding precautions and all questions and concerns addressed by this nurse. [facility] 11-03-2022 Miscellaneous Notes Patient was identified by name and date of . Jana Veloz RN Pt discharged from hospital yesterday for neutropenic fever. Radiation held d/t low ANC and Platelet count. Plan is for pt to get lab work 11/06 at least an hour before she comes in for radiation therapy. Lab work will be evaluated by Dr Ramos. Pt understands plan and states she is feeling a little better. Discussed neutropenic and bleeding precautions and all questions and concerns addressed by this nurse. documented in this encounter [facility] 11-02-2022 Plan of care note Problem: Routine Care: Goal: Patient care will be managed and maintained throughout hospital stay per unit specific routine care procedure 11/02/2022 1430 by Jacques Child RN Outcome: Adequate for Discharge 11/02/2022 1430 by Jacques Child RN Outcome: Progressing Problem: Safety: Goal: Patient will remain free of falls during hospital stay 11/02/2022 1430 by Jacques Child RN Outcome: Adequate for Discharge 11/02/2022 1430 by Jacques Child RN Outcome: Progressing Goal: Free from injury during hospitalization 11/02/2022 1430 by Jacques Child RN Outcome: Adequate for Discharge 11/02/2022 1430 by Jacques Child RN Outcome: Progressing Problem: Acute Pain: Goal: Ability to identify pain intensity on a pain scale and rate it consistently will be achieved and maintained 11/02/2022 1430 by Jacques Child RN Outcome: Adequate for Discharge 11/02/2022 1430 by Jacques Child RN Outcome: Progressing Goal: Understanding of proper administration and use of medicines will be achieved 11/02/2022 1430 by Jacques Child RN Outcome: Adequate for Discharge 11/02/2022 1430 by Jacques Child RN Outcome: Progressing Goal: Acceptable level of pain which allows the patient to achieve functional outcome goals 11/02/2022 1430 by Jacques Child RN Outcome: Adequate for Discharge 11/02/2022 1430 by Jacques Child RN Outcome: Progressing Goal: Ability to identify factors that manage or decrease pain will be achieved 11/02/2022 1430 by Jacques Child RN Outcome: Adequate for Discharge 11/02/2022 1430 by Jacques Child RN Outcome: Progressing Problem: VTE Prophylaxis: Goal: Will be free of DVT 11/02/2022 1430 by Jacques Child RN Outcome: Adequate for Discharge 11/02/2022 1430 by Jacques Child RN Outcome: Progressing Problem: Discharge Planning: Goal: Discharge needs of the adult patient will be met 11/02/2022 1430 by Jacques Child RN Outcome: Adequate for Discharge 11/02/2022 1430 by Jacques Child RN Outcome: Progressing [facility] 11-02-2022 Miscellaneous Notes Problem: Routine Care: Goal: Patient care will be managed and maintained throughout hospital stay per unit specific routine care procedure 11/02/2022 1430 by Jacques Child RN Outcome: Adequate for Discharge 11/02/2022 1430 by Jacques Child RN Outcome: Progressing Problem: Safety: Goal: Patient will remain free of falls during hospital stay 11/02/2022 1430 by Jacques Child RN Outcome: Adequate for Discharge 11/02/2022 1430 by Jacques Child RN Outcome: Progressing Goal: Free from injury during hospitalization 11/02/2022 1430 by Jacques Child RN Outcome: Adequate for Discharge 11/02/2022 1430 by Jacques Child RN Outcome: Progressing Problem: Acute Pain: Goal: Ability to identify pain intensity on a pain scale and rate it consistently will be achieved and maintained 11/02/2022 1430 by Jacques Child RN Outcome: Adequate for Discharge 11/02/2022 1430 by Jacques Child RN Outcome: Progressing Goal: Understanding of proper administration and use of medicines will be achieved 11/02/2022 1430 by Jacques Child RN Outcome: Adequate for Discharge 11/02/2022 1430 by Jacques Child RN Outcome: Progressing Goal: Acceptable level of pain which allows the patient to achieve functional outcome goals 11/02/2022 1430 by Jacuqes Child RN Outcome: Adequate for Discharge 11/02/2022 1430 by Jacques Child RN Outcome: Progressing Goal: Ability to identify factors that manage or decrease pain will be achieved 11/02/2022 1430 by Jacques Child RN Outcome: Adequate for Discharge 11/02/2022 1430 by Jacques Child RN Outcome: Progressing Problem: VTE Prophylaxis: Goal: Will be free of DVT 11/02/2022 1430 by Jacques Child RN Outcome: Adequate for Discharge 11/02/2022 1430 by Jacques Child RN Outcome: Progressing Problem: Discharge Planning: Goal: Discharge needs of the adult patient will be met 11/02/2022 1430 by Jacques Child RN Outcome: Adequate for Discharge 11/02/2022 1430 by Jacques Child RN Outcome: Progressing Problem: Routine Care: Goal: Patient care will be managed and maintained throughout hospital stay per unit specific routine care procedure Outcome: Progressing Problem: Safety: Goal: Patient will remain free of falls during hospital stay Outcome: Progressing Goal: Free from injury during hospitalization Outcome: Progressing Problem: Acute Pain: Goal: Ability to identify pain intensity on a pain scale and rate it consistently will be achieved and maintained Outcome: Progressing Goal: Understanding of proper administration and use of medicines will be achieved Outcome: Progressing Goal: Acceptable level of pain which allows the patient to achieve functional outcome goals Outcome: Progressing Goal: Ability to identify factors that manage or decrease pain will be achieved Outcome: Progressing Problem: VTE Prophylaxis: Goal: Will be free of DVT Outcome: Progressing Problem: Discharge Planning: Goal: Discharge needs of the adult patient will be met Outcome: Progressing Problem: Routine Care: Goal: Patient care will be managed and maintained throughout hospital stay per unit specific routine care procedure Outcome: Progressing Problem: Safety: Goal: Patient will remain free of falls during hospital stay Outcome: Progressing Goal: Free from injury during hospitalization Outcome: Progressing Problem: Acute Pain: Goal: Ability to identify pain intensity on a pain scale and rate it consistently will be achieved and maintained Outcome: Progressing Goal: Understanding of proper administration and use of medicines will be achieved Outcome: Progressing Goal: Acceptable level of pain which allows the patient to achieve functional outcome goals Outcome: Progressing Goal: Ability to identify factors that manage or decrease pain will be achieved Outcome: Progressing Problem: VTE Prophylaxis: Goal: Will be free of DVT Outcome: Progressing Problem: Discharge Planning: Goal: Discharge needs of the adult patient will be met Outcome: Progressing AdmissionCare Guideline: Chemotherapy, Side Effects, Observation Based on the indications selected for the patient, the bed status of Admit to Observation was determined to be MET The following indications were selected as present at the time of evaluation of the patient: - Abnormal blood counts (eg, anemia, thrombocytopenia, neutropenia) AdmissionCare documentation entered by: May Baires [facility], 26th edition, Copyright [address] [facility], [facility] All Rights Reserved. [id number] documented in this encounter [facility] 11-02-2022 Note The [facility] 11-02-2022 Hospital course Narrative Images from the original note were not included. DISCHARGE SUMMARY [address] [id number] Amber Maldonado Date of : 1960 62 year old female Attending Jameson Renae MD Date of Admission 10/31/2022 Date of Discharge 11/02/2022 Final Diagnosis: Neutropenic fever (HCC) Hospital Problems as of 11/02/2022 * (Principal) RESOLVED: Neutropenic fever (HCC) Depression with anxiety Heavy tobacco smoker >10 cigarettes per day Vitamin D deficiency Anal squamous cell carcinoma (HCC) No discharge procedures on file. Future Appointments Date Time Provider Department Center 11/02/2022 2:40 PM TRILOGY [facility] 11/03/2022 2:40 PM TRILOGY [facility] 11/06/2022 2:20 PM TRILOGY [facility] 11/07/2022 2:20 PM TRILOGY [facility] 11/08/2022 2:20 PM TRILOGY [facility] 11/09/2022 1:30 PM Dana Ordonez APRN-MONUMENT SETTER HELPER ONC PALLIATI [facility] 11/09/2022 2:20 PM TRILOGY [facility] 11/10/2022 2:20 PM TRILOGY [facility] 11/13/2022 10:30 AM Ky Vegas APRN-CARD GRINDER HELPER OncMed [facility] 11/13/2022 11:00 AM ONC TREATMENT [facility] 11/13/2022 2:20 PM TRILOGY [facility] 11/14/2022 2:20 PM TRILOGY [facility] 11/15/2022 2:20 PM TRILOGY [facility] 11/16/2022 2:20 PM TRILOGY [facility] 2:20 [facility]/22[facility]22 2:20 [facility] 11/23/2022 2:20 PM [facility] 06/15/2023 10:00 AM Florencio, Financial Floor Polisher MAMI COLON Condition at Discharge improved Activity no restrictions Diet no restrictions Disposition home Functional Status ambulatory Physical Exam General: No acute discomfort. Eyes: Sclera anicteric. ENMT: MMM. No LAD. No JVD. Pulm: CTAB. Card: RRR, S1/2 audible, no murmurs Abd: Soft, non-tender, non-distended. BS+ Ext: No edema. Atraumatic. Skin: No rashes Neuro: A&O x3. Reason for Hospitalization Neutropenic fever Significant Findings BLOOD LABS: CBC/PT/INR WBC RBC Hgb Hct MCV RDW Plt PT aPTT INR 11/01/22 0303 0.8 3.15 11.1 32.7 104 13.3 36 10/31/22 1351 1.0 3.48 12.1 35.7 103 13.3 41 Basic Metabolic Panel Na K Cl CO2 Gap Glu BUN Cr Ca Mg PO4 11/01/22302 135 4.2 108 17 14 112 14 1.10 8.3 11/01/22 0303 2.8 11/01/22 0303 3.5 10/31/22 1351 1.6 10/31/22 1351 134 4.3 103 22 13 94 17 1.27 9.2 Hepatic/Biliary/Pancreas T Prot Albumin D Bili T Bili Alk Phos ALT AST Amylase Lipase 10/31/22 1351 6.5 4.2 0.16 0.7 87 6 11 Cardiac Troponin I CK total CK-MB BNP 11/01/22 0303 63.0 Fingerstick Glucose (last 72 hours) None Urine analysis Lab Results Component Value Date/Time ULEUK Positive (A) 10/31/2022 04:24 PM UNITR Negative 10/31/2022 04:24 PM URBC 3-5 (A) 10/31/2022 04:24 PM CULTURES: Blood Culture Blood culture 10/31/22 1609 No growth to date, culture reincubated [P] 10/31/22 1609 No growth to date, culture reincubated [P] [P] - Preliminary Result Urine Culture Urine culture 10/31/22 1624 Positive Culture Report 10,000-50,000 CFU/mL Escherichia coli Respiratory Culture, Misc None Pyogen Culture None Covid/Flu No results found for: SARSCOV, INFLUA, INFLUB IMAGING/OTHER: XR CHEST AP OR PA 1 VIEW Result Date: 10/31/2022 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 Hospital Course Amber Maldonado is a 62 year old female with a PMH of past smoker, COPD, GERD, MDD, KLEBER, Anal squamous cell carcinoma, presents from radiation therapy for severe neutropenia and stated fever over last 3 days, admitted for febrile neutropenia and further workup/care. Patient started on vanc/cefepime. CXR clear, blood cx negative, COVID negative. Urine culture grew sewell sensitive e. Coli which was though to be the source of her fever. She was transitioned to ciprofloxacin at d/c to complete 7 days of anti microbial therapy. Evaluated by onc d/t neutropenia. At this point did not feel that patient would benefit from G-CSF. Stable for d/c with close OP f/u with oncology. I provided the patient and/or family/surrogate with the following information: Explanation of the primary diagnosis, and secondary diagnoses where applicable, including test results, Discussion of any new medications and treatments, including expected benefits and potential major side effects, Explanation of previous treatments or medications that are discontinued, Discussion of post-hospital day-to-day care needs, and Follow-up plans, and warning signs that should prompt more urgent follow-up Current Discharge Medication List START taking these medications Details oxyCODONE 5 MG immediate release tablet Take 2 Tablets by mouth every 4 hours as needed for up to 3 days. Qty: 36 Tablet, Refills: 0 Associated Diagnoses: Anal squamous cell carcinoma (HCC) ciprofloxacin (CIPRO) 500 MG tablet Take 1 Tablet by mouth 2 times daily for 5 days. Qty: 10 Tablet, Refills: 0 naloxone 4 mg/0.1 mL nasal liquid Use 1 [place] in one nostril (alternate sides) as needed for Drug Overdose for up to 1 dose. Every 2-3 mins. until help arrives. Qty: 1 Each, Refills: 1 CONTINUE these medications which have NOT CHANGED Details albuterol (PROVENTIL HFA) INHALATION HFA inhaler (VENTOLIN,PROAIR,PROVENTIL) 90mcg Inhale 2 Puffs by mouth every 4 hours as needed for Wheezing. Qty: 8.5 g, Refills: 0 Comments: Dispense whatever albuterol is covered by insurance Associated Diagnoses: Viral upper respiratory tract infection benzonatate (Tessalon Perles) 100 MG capsule Take 1 Capsule by mouth 3 times daily as needed. Qty: 60 Capsule, Refills: 0 Associated Diagnoses: Viral upper respiratory tract infection lidocaine-prilocaine (E mLA) 2.5-2.5 % cream Apply thin layer to affected area. Qty: 30 g, Refills: 3 famotidine (Pepcid) 20 MG tablet Take 1 Tablet by mouth 2 times daily. Qty: 60 Tablet, Refills: 3 Associated Diagnoses: Anal squamous cell carcinoma (HCC); Heartburn ondansetron (ZOFRAN-ODT) 8 MG disintegrating tablet Take 1 Tablet by mouth every 12 hours as needed for Nausea. Qty: 30 Tablet, Refills: 3 Associated Diagnoses: Perianal mass capecitabine (XELODA) 500 MG tablet Take 3 tablets (1500 mg) by mouth in twice a day, 12 hours apart on each day radiotherapy is given, Sunday through Sunday. Doses should be taken with water within 30 minutes after a meal. Swallow tablets whole. Avoid cutting or crushing tablets.(825mg/m2/dose). Qty: 168 Tablet, Refills: 0 Comments: 28 days total Associated Diagnoses: Perianal mass cetirizine (ZyrTEC) 10 MG tablet Cetirizine (Zyrtec) 10 mg Tablet Active 10 MG PO Daily October 26, 2021 12:00am hydrOXYzine pamoate (VISTARIL) 25 MG capsule Take by mouth. naproxen (NAPROSYN) 500 MG tablet Take by mouth every 12 hours. docusate sodium (COLACE) 100 MG capsule Take 1 Capsule by mouth 2 times daily. Qty: 60 Capsule, Refills: 3 senna (SENOKOT) 8.6 MG tablet Take 1 Tablet by mouth daily as needed for Constipation. Qty: 30 Tablet, Refills: 0 lidocaine (XYLOCAINE) 5 % ointment Apply a thick amount to affected area 2 times daily as needed. Qty: 30 g, Refills: 1 sertraline (ZOLOFT) 50 MG tablet 1 Tablet. 35 minutes was personally spent on discharge planning on the day of discharge in coordination of care, counseling the patient, and preparation of discharge and transfer paperwork. documented in this encounter [facility] 2022 Plan of care note Problem: Routine Care: Goal: Patient care will be managed and maintained throughout hospital stay per unit specific routine care procedure Outcome: Progressing Problem: Safety: Goal: Patient will remain free of falls during hospital stay Outcome: Progressing Goal: Free from injury during hospitalization Outcome: Progressing Problem: Acute Pain: Goal: Ability to identify pain intensity on a pain scale and rate it consistently will be achieved and maintained Outcome: Progressing Goal: Understanding of proper administration and use of medicines will be achieved Outcome: Progressing Goal: Acceptable level of pain which allows the patient to achieve functional outcome goals Outcome: Progressing Goal: Ability to identify factors that manage or decrease pain will be achieved Outcome: Progressing Problem: VTE Prophylaxis: Goal: Will be free of DVT Outcome: Progressing Problem: Discharge Planning: Goal: Discharge needs of the adult patient will be met Outcome: Progressing [facility] 2022 Consult note Associated Order (s): NUTRITION NEW CONSULT Images from the original note were not included. Nutrition Inpatient Assessment Consult - Anal SCC, on chemrt, no appetite, loosing weight, cachexic, low energy Ht 6' 0 Current wt 69.4 kg Admit wt 69.4 kg BMI 20.75 IBW 72.7 kg Weight hx 07/15/2021 68.493 kg 151 lb 07/19/2021 68.493 kg 151 lb 07/25/2022 71.487 kg 157 lb 9.6 oz 08/25/2022 72.576 kg 160 lb 08/28/2022 72.576 kg 160 lb 10/03/2022 69.582 kg 153 lb 6.4 oz 10/16/2022 69.4 kg 153 lb 10/18/2022 70.126 kg 154 lb 9.6 oz 10/19/2022 70.308 kg 155 lb 10/31/2022 69.4 kg 153 lb ~4.4% wt loss in 2 months CBC (last 3 years, up to 5 values) WBC RBC Hgb Hct MCV RDW Plt 11/01/22 0303 0.8 3.15 11.1 32.7 104 13.3 36 10/31/22 1351 1.0 3.48 12.1 35.7 103 13.3 41 10/03/22 1158 6.5 4.40 15.5 45.7 104 14.0 149 Basic Metabolic Panel Na K Cl CO2 Gap Glu BUN Cr Ca Mg PO4 11/01/22302 135 4.2 108 17 14 112 14 1.10 8.3 11/01/22 0303 2.8 11/01/22 0303 3.5 10/31/22 1351 1.6 10/31/22 1351 134 4.3 103 22 13 94 17 1.27 9.2 LFT's (last 3 years, up to 5 values) T Prot Albumin D Bili T Bili Alk Phos ALT AST 10/31/22 1351 6.5 4.2 0.16 0.7 87 6 11 10/03/22 1158 7.6 4.8 0.12 0.7 119 13 21 No results found for: B12 No results found for: FOL Vital sign ranges over the past 24 hours (retrieved 2022 at 10:31 AM): Tmax (24 hours): 99.8 F (37.7 C) Pulse Av.3 Min: 68 Max: 84 Systolic (24hrs), Av , Min:91 , Max:141 Diastolic (24hrs), Av, Min:43, Max:75 MAP (mmHg) Av.8 mmHg Min: 52 mmHg Max: 82 mmHg Resp Av.9 Min: 17 Max: 18 SpO2 Av.3 % Min: 94 % Max: 100 % Nutrition Focused Physical Exam: Muscle loss: [place] region: slight depression Clavicle region: not visible/not prominent Scapula region: no depressions Hand: muscle bulges Anterior thigh: well rounded Posterior calf: well developed Fat loss: Orbital region: slightly dark [place]/somewhat hollow look Tricep/bicep region: some depth pinch/not ample Rib/back region: chest full/ribs do not show Edema: none Skin/Nails/Hair: intact, wnl Eyes/Nose/Mouth: RA Bms 10/31 x1 Meds: colace, pepcid, zofran prn, oxycodone prn Current diet order: Regular PO intake 50-75% Est needs: 7786-0513 kcal/d 25-30 kcal/kg (MSJ 1356 kcal) 70-90 g pro/d 1.0-1.3 g/kg 1700 ml/d 25 ml/kg Assessment: 62 year old female with PMHx of past smoker, COPD, GERD, MDD, KLEBER, anal SCC presents from radiation therapy for severe neutropenia. Admitted for febrile neutropenia and further workup/care. Started IV antibx. Pt with anemia/thrombocytopenia 2/2 ca + chemotherapy. Elevated MCV. Nutrition consulted for poor appetite and weight lose. Pt with ~4.4% wt loss x 2 months. Pt reported fair appetite, endorsed frequent diarrhea. Pt reported oatmeal, PB & J, lean meats, bananas, and jello were well tolerated. Encouraged increased PO intake as able. Pt declined Boost at this time, reports her father drank Boost prior to passing. Pt agreeable to trying Magic Cup while admitted. Pt interested in speaking with outpatient oncology RD. Nutrition Problems At risk for malnutrition 2/2 poor PO intake Nutrition Recommendations: Continue Regular diet Start Magic Cup BID Check B-12, MMA, folate - supplement low levels Weekly weights MD LAINEZ 101 referral at discharge - specify oncology RD Alta Butt RD Personal Pager: [phone] On-Call Nutrition Pager: [phone] Dietitian vs DietaryTech: Dietitian and Early Childhood Services Coordinator Vocab Work Phone: 2022 Consult note Associated Order (s): NUTRITION NEW CONSULT Images from the original note were not included. Nutrition Inpatient Assessment Consult - Anal SCC, on chemrt, no appetite, loosing weight, cachexic, low energy Ht 6' 0 Current wt 69.4 kg Admit wt 69.4 kg BMI 20.75 IBW 72.7 kg Weight hx 07/15/2021 68.493 kg 151 lb 07/19/2021 68.493 kg 151 lb 07/25/2022 71.487 kg 157 lb 9.6 oz 08/25/2022 72.576 kg 160 lb 08/28/2022 72.576 kg 160 lb 10/03/2022 69.582 kg 153 lb 6.4 oz 10/16/2022 69.4 kg 153 lb 10/18/2022 70.126 kg 154 lb 9.6 oz 10/19/2022 70.308 kg 155 lb 10/31/2022 69.4 kg 153 lb ~4.4% wt loss in 2 months CBC (last 3 years, up to 5 values) WBC RBC Hgb Hct MCV RDW Plt 11/01/22 0303 0.8 3.15 11.1 32.7 104 13.3 36 10/31/22 1351 1.0 3.48 12.1 35.7 103 13.3 41 10/03/22 1158 6.5 4.40 15.5 45.7 104 14.0 149 Basic Metabolic Panel Na K Cl CO2 Gap Glu BUN Cr Ca Mg PO4 11/01/22302 135 4.2 108 17 14 112 14 1.10 8.3 11/01/22 0303 2.8 11/01/22 0303 3.5 10/31/22 1351 1.6 10/31/22 1351 134 4.3 103 22 13 94 17 1.27 9.2 LFT's (last 3 years, up to 5 values) T Prot Albumin D Bili T Bili Alk Phos ALT AST 10/31/22 1351 6.5 4.2 0.16 0.7 87 6 11 10/03/22 1158 7.6 4.8 0.12 0.7 119 13 21 No results found for: B12 No results found for: FOL Vital sign ranges over the past 24 hours (retrieved 2022 at 10:31 AM): Tmax (24 hours): 99.8 F (37.7 C) Pulse Av.3 Min: 68 Max: 84 Systolic (24hrs), Av , Min:91 , Max:141 Diastolic (24hrs), Av, Min:43, Max:75 MAP (mmHg) Av.8 mmHg Min: 52 mmHg Max: 82 mmHg Resp Av.9 Min: 17 Max: 18 SpO2 Av.3 % Min: 94 % Max: 100 % Nutrition Focused Physical Exam: Muscle loss: [place] region: slight depression Clavicle region: not visible/not prominent Scapula region: no depressions Hand: muscle bulges Anterior thigh: well rounded Posterior calf: well developed Fat loss: Orbital region: slightly dark [place]/somewhat hollow look Tricep/bicep region: some depth pinch/not ample Rib/back region: chest full/ribs do not show Edema: none Skin/Nails/Hair: intact, wnl Eyes/Nose/Mouth: RA Bms 10/31 x1 Meds: colace, pepcid, zofran prn, oxycodone prn Current diet order: Regular PO intake 50-75% Est needs: 1621-2043 kcal/d 25-30 kcal/kg (MSJ 1356 kcal) 70-90 g pro/d 1.0-1.3 g/kg 1700 ml/d 25 ml/kg Assessment: 62 year old female with PMHx of past smoker, COPD, GERD, MDD, KLEBER, anal SCC presents from radiation therapy for severe neutropenia. Admitted for febrile neutropenia and further workup/care. Started IV antibx. Pt with anemia/thrombocytopenia 2/2 ca + chemotherapy. Elevated MCV. Nutrition consulted for poor appetite and weight lose. Pt with ~4.4% wt loss x 2 months. Pt reported fair appetite, endorsed frequent diarrhea. Pt reported oatmeal, PB & J, lean meats, bananas, and jello were well tolerated. Encouraged increased PO intake as able. Pt declined Boost at this time, reports her father drank Boost prior to passing. Pt agreeable to trying Magic Cup while admitted. Pt interested in speaking with outpatient oncology RD. Nutrition Problems At risk for malnutrition 2/2 poor PO intake Nutrition Recommendations: Continue Regular diet Start Magic Cup BID Check B-12, MMA, folate - supplement low levels Weekly weights MD LAINEZ 101 referral at discharge - specify oncology RD Alta Butt RD Personal Pager: [phone] On-Call Nutrition Pager: [phone] Dietitian vs DietaryTech: Dietitian and Early Childhood Services Coordinator Associated Order(s): IP HEMATOLOGY-ONCOLOGY CONSULT Images from the original note were not included. Name: Amber Maldonado Admit Date: 10/31/2022 Encounter Date: 2022 PCP: No primary care provider on file. Reason for consult: neutropenic fever Attending Provider: Jody Hematology/ Oncology Consult Note History of Present Illness Amber Maldonado is a 62 year old female with notable history of locally invasive anal squamous cell carcinoma presented on 10/31 for neutropenic fever with acute pancytopenia. Received C1D1 mitomycin and started capecitabine 10/16/22, as well as daily XRT. Last received XRT on 10/31 before being admitted. She says she had been feeling tired for the past 3 days. Had some episodes of diarrhea. She was admitted and started on IV fluids and vancomycin and cefepime. Patient currently feels much better today. No complaints at this time. Heme/Onc history Per patient was diagnosed in the mid- and was treated with creams in [place] 09/05/17 Endocervical curetting: -Low grade squamous intraepithelial lesion (cervical intraepithelial neoplasia 1) 07/19/2021 biopsies EUA Perianal, Left Anal Verge WELL-DIFFERENTIATED SQUAMOUS CELL CARCINOMA LIKELY INVASIVE in a background of high-grade anal intraepithelial neoplasia/CARCINOMA IN SITU (AIN3/CIS, see immunohistochemistry result). B. Perianal, Right Anal Verge At least high-grade anal intraepithelial neoplasia/CARCINOMA IN SITU (AIN3/CIS), invasion cannot be totally excluded. C. Perianal, Left Lateral WELL-DIFFERENTIATED SQUAMOUS CELL CARCINOMA LIKELY INVASIVE in a background of high-grade anal intraepithelial neoplasia/CARCINOMA IN SITU (AIN3/CIS). D. Perianal, Left Posterior WELL-DIFFERENTIATED SQUAMOUS CELL CARCINOMA LIKELY INVASIVE in a background of high-grade anal intraepithelial neoplasia/CARCINOMA IN SITU (AIN3/CIS). E. Perianal, Right lateral At least high-grade anal intraepithelial neoplasia/CARCINOMA IN SITU (AIN3/CIS), invasion cannot be totally excluded. No imaging for 5 years 08/28/22 anal verge biopsies Left posterior and lateral WELL-DIFFERENTIATED SQUAMOUS CELL CARCINOMA WITH MINUTE FOCAL SUPERFICIAL INVASION. 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 CT 10/03/22 1. 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 There is no evidence of significant penetration into the surrounding soft tissues, locoregional annie metastasis, or evidence of distant metastatic disease. 2. Aortoiliac atherosclerotic calcification with ectasia of the ascending aorta and infrarenal aortic segment as detailed. 10/16/22 Capecitabine 1500mg BID + Mitomycin + RXT Past Medical History Past Medical History: Diagnosis Date Anxiety Depression with anxiety 08/25/2022 Diverticulitis of large intestine with abscess without bleeding 08/17/2016 Heavy tobacco smoker >10 cigarettes per day 08/17/2016 Perianal mass 07/15/2021 Added automatically from request for surgery [id number] Vitamin D deficiency 12/19/2011 Past Surgical History Past Surgical History: Procedure Laterality Date BIOPSY, RECTAL N/A 08/28/2022 Procedure: BIOPSY, RECTAL, ANAL MASS BIOPSY; Surgeon: Yoselin Padron MD; Location: [facility]; Service: General COLECTOMY open, for diverticulitis EUA, RECTAL N/A 07/19/2021 Procedure: EUA, anal mass biopsies; Surgeon: Yoselin Padron MD; Location: PER[facility]OPER[facility]IVE SERVICES; Service: General Family History Family History Problem Relation Age of Onset Other (DCIS) Sister Social History [place] Social History Socioeconomic History Marital status: Unknown Highest education level: Associate degree: occupational, technical, or vocational program Tobacco Use Smoking status: Every Day Packs/day: 0.50 Types: Cigarettes Smokeless tobacco: Never Vaping Use Vaping Use: Never used Substance and Sexual Activity Alcohol use: Yes Alcohol/week: 4.0 standard drinks of alcohol Types: 4 Glasses of wine per week Drug use: Not Currently Social Determinants of Health Financial Resource Strain: High Risk (10/12/2022) Overall Financial Resource Strain (CARDIA) Difficulty of Paying Living Expenses: Very hard Food Insecurity: Food Insecurity Present (10/12/2022) Hunger Vital Sign Worried About Running Out of Food in the Last Year: Often true Ran Out of Food in the Last Year: Sometimes true Transportation Needs: No Transportation Needs (10/12/2022) PRAPARE - Transportation Lack of Transportation (Medical): No Lack of Transportation (Non-Medical): No Physical Activity: Insufficiently Active (10/12/2022) Exercise Vital Sign Days of Exercise per Week: 4 days Minutes of Exercise per Session: 10 min Stress: Stress Concern Present (10/12/2022) [employer] [employer] - Occupational Stress Questionnaire Feeling of Stress : Rather much Social Connections: Unknown (10/12/2022) Social Connection and Isolation Panel [NHANES] Frequency of Communication with Friends and Family: Three times a week Frequency of Social Gatherings with Friends and Family: Patient refused Attends Mandaeism Services: Patient refused Active Member of Clubs or Organizations: Yes Attends Club or Organization Meetings: More than 4 times per year Marital Status: Living with partner Intimate Partner Violence: Not At Risk (10/12/2022) Humiliation, Afraid, Rape, and Kick questionnaire Fear of Current or Ex-Partner: No Emotionally Abused: No Physically Abused: No Sexually Abused: No Housing Stability: High Risk (10/12/2022) Housing Stability Vital Sign Unable to Pay for Housing in the Last Year: Yes Number of Places Lived in the Last Year: 1 Unstable Housing in the Last Year: No Allergies Allergies Allergen Reactions Lactase Diarrhea Molds & Smuts Pollen Extract Eye watering, headaches Eye watering, headaches Medications vancomycin One Time Dose famotidine 20 mg Daily umeclidinium 1 Puff Q DAILY RT [MAR Hold] albuterol 2 Puff Q4H RT sertraline 50 mg Daily cefepime 2,000 mg Q12H Antibiotic docusate sodium 100 mg 2x Daily oxyCODONE 5 mg Q4H PRN oxyCODONE 10 mg Q4H PRN ondansetron 4 mg Q4H PRN lidocaine-prilocaine Q4H PRN hydrOXYzine 25 mg Q6H PRN loperamide 2 mg 4x Daily PRN albuterol 2 Puff Q4H PRN vancomycin dosing pharmacy consult As Directed Review of Systems 12-point ROS negative, except as specified in the HPI. Physical Exam BP 100/57 (BP Location: left arm) Pulse 71 Temp 98.5 F (36.9 C) (Oral) Resp 18 Ht 6' (1.829 m) Wt 153 lb (69.4 kg) SpO2 94% BMI 20.75 kg/m ECO General: awake, alert, no acute distress HEENT: normocephalic, atraumatic Neck: no palpable lymphadenopathy CV: normal rate, regular rhythm, no MRG Resp: CTAB, no labored breathing Abdominal: soft, non-tender, non-distended, active bowel sounds Extremities: full ROM, no lower extremity swelling Neuro: no focal neuro deficits Skin: no rashes, erythema, or ecchymoses Psych: normal affect and mood, appropriate judgment Labs Reviewed Imaging Reviewed Assessment/Plan Amber Maldonado is a 62 year old female with notable history of locally invasive anal squamous cell carcinoma presented on 10/31 for neutropenic fever with acute pancytopenia after starting C1D1 mitomycin and capecitabine 10/16/22 and daily XRT. Heme/onc consulted for he need for bone marrow stimulating agents. Patient likely neutropenic from both chemotherapy and XRT to the pelvic/anal region. In the midst of a neutropenic fever, the use of bone marrow stimulating agents is usually not provided. It would only shorten the length of stay by one day at a minimum. The patient is currently improving. We do not recommend any bone marrow stimulating agents at this time. We would recommend stopping vancomycin and continuing just cefepime until blood culture results come back. Thank you for this consult, and we will follow peripherally. Patient was seen and discussed with Dr. Vera. Jesus Fong MD Hematology-Oncology Fellow, PGY-4 Attending/Teaching Physician Note: I saw and evaluated Amber Maldonado. I personally obtained the cano and critical portions of the history and physical exam on 2022. I reviewed the fellow's documentation and discussed the patient with the fellow. I agree with the fellow's medical decision making as documented in the fellow's note. 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 She is presenting with neutropenic fever after starting C1D1 mitomycin C and capecitabine. She is hemodynamically stable so no indication to start growth factors. May need to dose adjust the chemotherapy as an outpatient for the next cycle. Carmine Vera DO, MS Division Hematology / Oncology 11/02/2022 11:20 AM documented in this encounter [facility] 2022 History of Present illness Narrative Dr. Renae notified of critical Platelet count and WBC value of 36 read back critical results. New orders received. notified of critical wbc value of 0.8. read back critical results. New orders received. Pharmacokinetic Dosing Service - VANCOMYCIN Name: Amber Maldonado Age:[age] year old Gender: female Ht: 6' 0 Wt: 69.4 kg Indication: Febrile Neutropenia Desired Ranges: 15-20 Day of therapy: 2 Assessment and Recommendations: The vancomycin level resulted as 15.1mcg/mL on 11/01 @ 745 before the 2nd dose (11 hours after the previous dose). The current dose of vancomycin requires adjustment due to rapidly therapeutic vancomycin level and borderline renal function . Will schedule 750mg every 12 hours to begin on 11/01 @1100. The next vancomycin level is due before the 4th dose. Pharmacy will post notes for trough levels upon return and for dose changes. The medication regimen has been updated per consult agreement procedures. Current Dose Active Vancomycin Orders (From admission, onward) Start Stop 10/31/222025 vancomycin dosing pharmacy consult Other, As Directed Question: Suspected Source/Reason for Therapy Answer: Febrile Neutropenia -- Lab Values: Creatinine Date Value Ref Range Status 2022 1.10 0.50 - 1.10 mg/dL Final 10/31/2022 1.27 (H) 0.50 - 1.10 mg/dL Final 10/03/2022 1.13 (H) 0.50 - 1.10 mg/dL Final No results found for: VANCTR Lab Results Component Value Date/Time VANCR 15.1 2022 07:47 AM Serum creatinine: 1.1 mg/dL 11/01/22 030 Estimated creatinine clearance: 56.61 mL/min Culture(s): PENDING Autumn Trujillo [facility] - Department of Pharmacy Services Images from the original note were not included. HOSPITAL MEDICINE DAILY PROGRESS NOTE SUBJECTIVE: Patient seen and examined. Epic reviewed. ROSINA. Tmax 99.6. Patient reports that she is feeling much better I think the IV abx really did the trick. Pain in rectal area, requesting save. Patient reports no cough, SOB, fever, BAZAN, nausea, vomiting, diarrhea, or dysuria. OBJECTIVE: BP 141/66 (BP Location: left arm) Pulse 83 Temp 99.2 F (37.3 C) (Oral) Resp 18 Ht 6' (1.829 m) Wt 153 lb (69.4 kg) SpO2 98% BMI 20.75 kg/m . General: No acute discomfort. Eyes: Sclera anicteric. ENMT: MMM. No LAD. No JVD. Pulm: Diminished at the bases b/l Card: RRR. S1/2 audible, no murmurs Abd: Soft, non-tender, non-distended. BS+ Ext: No edema. Atraumatic. Skin: No rashes Neuro: A&O x3. BLOOD LABS: CBC/PT/INR WBC RBC Hgb Hct MCV RDW Plt PT aPTT INR 10/31/22 1351 1.0 3.48 12.1 35.7 103 13.3 41 Basic Metabolic Panel Na K Cl CO2 Gap Glu BUN Cr Ca Mg PO4 11/01/22 0303 2.8 11/01/22 0303 3.5 10/31/22 1351 1.6 10/31/22 1351 134 4.3 103 22 13 94 17 1.27 9.2 Hepatic/Biliary/Pancreas T Prot Albumin D Bili T Bili Alk Phos ALT AST Amylase Lipase 10/31/22 1351 6.5 4.2 0.16 0.7 87 6 11 Cardiac Troponin I CK total CK-MB BNP 11/01/22 0303 63.0 Fingerstick Glucose (last 72 hours) None Urine analysis Lab Results Component Value Date/Time ULEUK Positive (A) 10/31/2022 04:24 PM UNITR Negative 10/31/2022 04:24 PM URBC 3-5 (A) 10/31/2022 04:24 PM CULTURES: Blood Culture None Urine Culture None Respiratory Culture, Misc None Pyogen Culture None Covid/Flu No results found for: SARSCOV, INFLUA, INFLUB IMAGING/OTHER: XR CHEST AP OR PA 1 VIEW Result Date: 10/31/2022 IMPRESSION: COPD/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 ASSESSMENT AND PLAN: Amber Maldonado is a 62 year old female with a PMH of past smoker, COPD, GERD, MDD, KLEBER, Anal squamous cell carcinoma, presents from radiation therapy for severe neutropenia and stated fever over last 3 days, admitted for febrile neutropenia and further workup/care. #Neutropenic fever. Patient with Tmax high 90s, low BP, but scheduling tylenol at home. CXR clear. UA with some LE and WBC. Procal low. Blood cx pending - Cont vanc/cefepime 10/31-. Monitor for toxicity I.e. Cr, mental status - F/u blood cx x2, urine cx. Check MRSA nares - CBC daily. 11/01/22 WBC 0.8, platelet 32 - Neutropenic precautions - Onc c/s for consideration of GCS-F #Anal SCC. F/b Dr. Smith. On Curative therapy per onc note; ChemoRT (capecitabine with mitomycin during radiation). #Cancer related pain #Anemia/thrombocytopenia 2/2 to ca + chemotherapy -Imodium for diarrhea -Zofran for nausea -Oxy 5-10mg q4h PRN mod/severe with dilaudid 1mg IVP breakthrough. Monitor for SE I.e. resp depression, somnolence - CBC daily as above - OP f/u with Dr. Smith #HERB v CKD. Only Cr on file is 1.13. Mild elevation to 1.23. Unclear true baseline - Trend BMP daily. Caution given use of vanco Chronic Medical Conditions #Tobacco abuse-cessation encouraged #COPD not in exac-cont incruse, albuterol PRN #GERD-PPI #MDD with KLEBER-SSRI with atarax PRN Resolved #HypoMg Prophylaxis: Risk>benefit (platelet <50) Code Status: Full Code Disposition: Pending hospital course Jameson Renae MD Internal Medicine Attending Physician Pager [phone] Pharmacy Renal Dosing Service Name: Amber Maldonado Age: [age] year old Gender: female Ht: 6' 0 Wt: 69.4 kg Patient is currently prescribed the following renally monitored Medication(s): Renally Adjusted Meds (720h ago, onward) Ordered Stop -- Relevant objective data reviewed: Serum creatinine: 1.27 mg/dL (H) 10/31/22 1351 Estimated creatinine clearance: 49.67 mL/min (A) Assessment and Recommendation: The medication required adjustment for renal function at the time of initial order verification. The original medication order cefepime 2 gm q8 hours has been updated to cefepime 2gm q12 hours. Medication therapy has been updated per consult agreement. Kelsey Dennison [facility] Department of Pharmacy Services Pharmacokinetic Dosing Service - VANCOMYCIN Initial Dosing Note Name: Amber Maldonado Age:[age] year old Gender: female Ht: 6' 0 Wt: 69.4 kg Indication: Febrile Neutropenia Desired Ranges: 15-20 Day of therapy: 1 Assessment and Recommendations: 10/31/22 HROBINSON1 - Day 1: Febrile Neutropenia; Renal function: CKD; Vanco load - 1500 mg ; Maintenance dose: to be determined by levels; Level due: 24 hours after last dose, Level not ordered. A loading dose of vancomycin 1500 mg IV once is recommended and has been ordered. Maintenance dosing of vancomycin dosed by levels is recommended and has been ordered. A vancomycin level is due 24 hrs after the last dose. Pharmacy will post notes for trough levels upon return and for dose changes. The medication regimen has been updated per consult agreement procedures. Current Dose Active Vancomycin Orders (From admission, onward) Start Stop 10/31/222129 vancomycin (VANCOCIN) 1,500 mg/300 mL (ROOM TEMP PREMIX) 1,500 mg, Intravenous, ONCE Question: Suspected Source/Reason for Therapy Answer: Fever/Leukocytosis Unknown Source 11/01/22 0929 Lab Values: Creatinine Date Value Ref Range Status 10/31/2022 1.27 (H) 0.50 - 1.10 mg/dL Final 10/03/2022 1.13 (H) 0.50 - 1.10 mg/dL Final No results found for: VANCTRNo results found for: VANCR Serum creatinine: 1.27 mg/dL (H) 10/31/22 1351 Estimated creatinine clearance: 49.67 mL/min (A) Culture(s): PENDING Kelsey Dennison RP - Department of Pharmacy Services documented in this encounter [facility] 2022 Consult note Associated Order (s): IP HEMATOLOGY-ONCOLOGY CONSULT Images from the original note were not included. Name: Amber Maldonado Admit Date: 10/31/2022 Encounter Date: 2022 PCP: No primary care provider on file. Reason for consult: neutropenic fever Attending Provider: Jody Hematology/ Oncology Consult Note History of Present Illness Amber Maldonado is a 62 year old female with notable history of locally invasive anal squamous cell carcinoma presented on 10/31 for neutropenic fever with acute pancytopenia. Received C1D1 mitomycin and started capecitabine 10/16/22, as well as daily XRT. Last received XRT on 10/31 before being admitted. She says she had been feeling tired for the past 3 days. Had some episodes of diarrhea. She was admitted and started on IV fluids and vancomycin and cefepime. Patient currently feels much better today. No complaints at this time. Heme/Onc history Per patient was diagnosed in the mid- and was treated with creams in [place] 09/05/17 Endocervical curetting: -Low grade squamous intraepithelial lesion (cervical intraepithelial neoplasia 1) 07/19/2021 biopsies EUA Perianal, Left Anal Verge WELL-DIFFERENTIATED SQUAMOUS CELL CARCINOMA LIKELY INVASIVE in a background of high-grade anal intraepithelial neoplasia/CARCINOMA IN SITU (AIN3/CIS, see immunohistochemistry result). B. Perianal, Right Anal Verge At least high-grade anal intraepithelial neoplasia/CARCINOMA IN SITU (AIN3/CIS), invasion cannot be totally excluded. C. Perianal, Left Lateral WELL-DIFFERENTIATED SQUAMOUS CELL CARCINOMA LIKELY INVASIVE in a background of high-grade anal intraepithelial neoplasia/CARCINOMA IN SITU (AIN3/CIS). D. Perianal, Left Posterior WELL-DIFFERENTIATED SQUAMOUS CELL CARCINOMA LIKELY INVASIVE in a background of high-grade anal intraepithelial neoplasia/CARCINOMA IN SITU (AIN3/CIS). E. Perianal, Right lateral At least high-grade anal intraepithelial neoplasia/CARCINOMA IN SITU (AIN3/CIS), invasion cannot be totally excluded. No imaging for 5 years 08/28/22 anal verge biopsies Left posterior and lateral WELL-DIFFERENTIATED SQUAMOUS CELL CARCINOMA WITH MINUTE FOCAL SUPERFICIAL INVASION. 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 CT 10/03/22 1. 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 There is no evidence of significant penetration into the surrounding soft tissues, locoregional annie metastasis, or evidence of distant metastatic disease. 2. Aortoiliac atherosclerotic calcification with ectasia of the ascending aorta and infrarenal aortic segment as detailed. 10/16/22 Capecitabine 1500mg BID + Mitomycin + RXT Past Medical History Past Medical History: Diagnosis Date Anxiety Depression with anxiety 08/25/2022 Diverticulitis of large intestine with abscess without bleeding 08/17/2016 Heavy tobacco smoker >10 cigarettes per day 08/17/2016 Perianal mass 07/15/2021 Added automatically from request for surgery [id number] Vitamin D deficiency 12/19/2011 Past Surgical History Past Surgical History: Procedure Laterality Date BIOPSY, RECTAL N/A 08/28/2022 Procedure: BIOPSY, RECTAL, ANAL MASS BIOPSY; Surgeon: Yoselin Padron MD; Location: PERIOPERATIVE SERVICES; Service: General COLECTOMY open, for diverticulitis EUA, RECTAL N/A 07/19/2021 Procedure: EUA, anal mass biopsies; Surgeon: Yoselin Padron MD; Location: PERIOPERATIVE SERVICES; Service: General Family History Family History Problem Relation Age of Onset Other (DCIS) Sister Social History [place] Social History Socioeconomic History Marital status: Unknown Highest education level: Associate degree: occupational, technical, or vocational program Tobacco Use Smoking status: Every Day Packs/day: 0.50 Types: Cigarettes Smokeless tobacco: Never Vaping Use Vaping Use: Never used Substance and Sexual Activity Alcohol use: Yes Alcohol/week: 4.0 standard drinks of alcohol Types: 4 Glasses of wine per week Drug use: Not Currently Social Determinants of Health Financial Resource Strain: High Risk (10/12/2022) Overall Financial Resource Strain (CARDIA) Difficulty of Paying Living Expenses: Very hard Food Insecurity: Food Insecurity Present (10/12/2022) Hunger Vital Sign Worried About Running Out of Food in the Last Year: Often true Ran Out of Food in the Last Year: Sometimes true Transportation Needs: No Transportation Needs (10/12/2022) PRAPARE - Transportation Lack of Transportation (Medical): No Lack of Transportation (Non-Medical): No Physical Activity: Insufficiently Active (10/12/2022) Exercise Vital Sign Days of Exercise per Week: 4 days Minutes of Exercise per Session: 10 min Stress: Stress Concern Present (10/12/2022) [employer] - Occupational Stress Questionnaire Feeling of Stress : Rather much Social Connections: Unknown (10/12/2022) Social Connection and Isolation Panel [NHANES] Frequency of Communication with Friends and Family: Three times a week Frequency of Social Gatherings with Friends and Family: Patient refused Attends Mandaeism Services: Patient refused Active Member of Clubs or Organizations: Yes Attends Club or Organization Meetings: More than 4 times per year Marital Status: Living with partner Intimate Partner Violence: Not At Risk (10/12/2022) Humiliation, Afraid, Rape, and Kick questionnaire Fear of Current or Ex-Partner: No Emotionally Abused: No Physically Abused: No Sexually Abused: No Housing Stability: High Risk (10/12/2022) Housing Stability Vital Sign Unable to Pay for Housing in the Last Year: Yes Number of Places Lived in the Last Year: 1 Unstable Housing in the Last Year: No Allergies Allergies Allergen Reactions Lactase Diarrhea Molds & Smuts Pollen Extract Eye watering, headaches Eye watering, headaches Medications vancomycin One Time Dose famotidine 20 mg Daily umeclidinium 1 Puff Q DAILY RT [MAR Hold] albuterol 2 Puff Q4H RT sertraline 50 mg Daily cefepime 2,000 mg Q12H Antibiotic docusate sodium 100 mg 2x Daily oxyCODONE 5 mg Q4H PRN oxyCODONE 10 mg Q4H PRN ondansetron 4 mg Q4H PRN lidocaine-prilocaine Q4H PRN hydrOXYzine 25 mg Q6H PRN loperamide 2 mg 4x Daily PRN albuterol 2 Puff Q4H PRN vancomycin dosing pharmacy consult As Directed Review of Systems 12-point ROS negative, except as specified in the HPI. Physical Exam BP 100/57 (BP Location: left arm) Pulse 71 Temp 98.5 F (36.9 C) (Oral) Resp 18 Ht 6' (1.829 m) Wt 153 lb (69.4 kg) SpO2 94% BMI 20.75 kg/m ECO General: awake, alert, no acute distress HEENT: normocephalic, atraumatic Neck: no palpable lymphadenopathy CV: normal rate, regular rhythm, no MRG Resp: CTAB, no labored breathing Abdominal: soft, non-tender, non-distended, active bowel sounds Extremities: full ROM, no lower extremity swelling Neuro: no focal neuro deficits Skin: no rashes, erythema, or ecchymoses Psych: normal affect and mood, appropriate judgment Labs Reviewed Imaging Reviewed Assessment/Plan Amber Maldonado is a 62 year old female with notable history of locally invasive anal squamous cell carcinoma presented on 10/31 for neutropenic fever with acute pancytopenia after starting C1D1 mitomycin and capecitabine 10/16/22 and daily XRT. Heme/onc consulted for he need for bone marrow stimulating agents. Patient likely neutropenic from both chemotherapy and XRT to the pelvic/anal region. In the midst of a neutropenic fever, the use of bone marrow stimulating agents is usually not provided. It would only shorten the length of stay by one day at a minimum. The patient is currently improving. We do not recommend any bone marrow stimulating agents at this time. We would recommend stopping vancomycin and continuing just cefepime until blood culture results come back. Thank you for this consult, and we will follow peripherally. Patient was seen and discussed with Dr. Vera. Jesus Fong MD Hematology-Oncology Fellow, PGY-4 Attending/Teaching Physician Note: I saw and evaluated Amber Maldonado. I personally obtained the cano and critical portions of the history and physical exam on 2022. I reviewed the fellow's documentation and discussed the patient with the fellow. I agree with the fellow's medical decision making as documented in the fellow's note. 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 She is presenting with neutropenic fever after starting C1D1 mitomycin C and capecitabine. She is hemodynamically stable so no indication to start growth factors. May need to dose adjust the chemotherapy as an outpatient for the next cycle. Carmine Vera DO, MS Division Hematology / Oncology 11/02/2022 11:20 AM T [facility] 10-31-2022 History and physical note Images from the original note were not included. GENERAL MEDICAL FLOOR HISTORY AND PHYSICAL Amber Maldonado [id number] 10/31/2022 Length of stay: 1 day(s) CHIEF COMPLAINT: No chief complaint on file. HPI: 61 year old female with a PMH of past smoker, COPD, GERD, MDD, KLEBER, Anal squamous cell carcinoma, presents from radiation therapy for severe neutropenia and stated fever over last 3 days, admitted for febrile neutropenia and further workup/care. Had fever and malaise over last 3 days. Cough and mild SOB was notable, which is not baseline per pt. Denied urinary symptoms, any s/sx of bleed. States fever for her is lower around 99, which she brought up to Dr. Smith and triggered a w/u that came out significant. Last RT session this AM. Had her PO chemo prior to Rt this AM. No abdominal pain. Appetite is poor, although hungry right now. Has early satiety and hard to force herself to eat. Loosing a lot of weight and feels weak. Supposed to have nutrition consult this week. Only uses ibuprofen for pain not tylenol or opioids. Im anxious and crawling out of my skin, I need something for anxiety . Past Medical History: Diagnosis Date Anxiety Depression with anxiety 08/25/2022 Diverticulitis of large intestine with abscess without bleeding 08/17/2016 Heavy tobacco smoker >10 cigarettes per day 08/17/2016 Perianal mass 07/15/2021 Added automatically from request for surgery [id number] Vitamin D deficiency 12/19/2011 Social History: Social History Tobacco Use Smoking status: Every Day Packs/day: 0.50 Types: Cigarettes Smokeless tobacco: Never Substance Use Topics Alcohol use: Yes Alcohol/week: 4.0 standard drinks of alcohol Types: 4 Glasses of wine per week reports that she does not currently use drugs. Family History: Family History Problem Relation Age of Onset Other (DCIS) Sister REVIEW OF SYSTEMS: As Above MEDCATIONS: No current facility-administered medications on file prior to encounter. Current Outpatient Medications on File Prior to Encounter Medication Sig Dispense Refill albuterol (PROVENTIL HFA) INHALATION HFA inhaler (VENTOLIN,PROAIR,PROVENTIL) 90mcg Inhale 2 Puffs by mouth every 4 hours as needed for Wheezing. 8.5 g 0 benzonatate (Tessalon Perles) 100 MG capsule Take 1 Capsule by mouth 3 times daily as needed. 60 Capsule 0 lidocaine-prilocaine (E mLA) 2.5-2.5 % cream Apply thin layer to affected area. 30 g 3 famotidine (Pepcid) 20 MG tablet Take 1 Tablet by mouth 2 times daily. 60 Tablet 3 ondansetron (ZOFRAN-ODT) 8 MG disintegrating tablet Take 1 Tablet by mouth every 12 hours as needed for Nausea. 30 Tablet 3 capecitabine (XELODA) 500 MG tablet Take 3 tablets (1500 mg) by mouth in twice a day, 12 hours apart on each day radiotherapy is given, Sunday through Sunday. Doses should be taken with water within 30 minutes after a meal. Swallow tablets whole. Avoid cutting or crushing tablets.(825mg/m2/dose). 168 Tablet 0 cetirizine (ZyrTEC) 10 MG tablet Cetirizine (Zyrtec) 10 mg Tablet Active 10 MG PO Daily October 26, 2021 12:00am hydrOXYzine pamoate (VISTARIL) 25 MG capsule Take by mouth. naproxen (NAPROSYN) 500 MG tablet Take by mouth every 12 hours. docusate sodium (COLACE) 100 MG capsule Take 1 Capsule by mouth 2 times daily. 60 Capsule 3 senna (SENOKOT) 8.6 MG tablet Take 1 Tablet by mouth daily as needed for Constipation. 30 Tablet 0 lidocaine (XYLOCAINE) 5 % ointment Apply a thick amount to affected area 2 times daily as needed. 30 g 1 sertraline (ZOLOFT) 50 MG tablet 1 Tablet. OBJECTIVE: BP 134/62 (BP Location: left arm) Pulse 79 Temp 98.5 F (36.9 C) (Oral) Resp 18 Ht 6' (1.829 m) Wt 153 lb (69.4 kg) SpO2 100% BMI 20.75 kg/m No intake or output data in the 24 hours ending 10/31/221912 PHYSICAL EXAM: General: Awake, alert, oriented. Sitting up in bed in no obvious respiratory distress or pain. Eyes: PERRLA, EOMI Head: Normocephalic and atraumatic ENMT: Oral mucosa is pink and moist, without lesions, no tonsillar swelling or exudates Neck: supple without obvious LAD, trachea midline, No JVD Respiratory: Lungs are clear in the upper nova, and diminished in the bases, bilaterally on auscultation Cardiovascular: RRR, S1S2, no m/r/g appreciated Chest/Breast: Atraumatic Gastrointestinal: Non-distended, no ecchymosis, active bowel sounds, soft, non-tender to palpation of all 4 quadrants Lymph: No obvious LAD appreciated Ext: No edema or discoloration. Skin: No obvious skin lesions, lumps, bumps, or sores appreciated Neuro: CN2-12 grossly intact Psych: appropriate mood and affect, no visual or auditory hallucinations, no suicidal or homicidal ideation. Appears calm, collect LAB DATA: Basic Metabolic Panel Na K Cl CO2 Gap Glu BUN Cr Ca Mg PO4 10/31/22 1351 1.6 10/31/22 1351 134 4.3 103 22 13 94 17 1.27 9.2 CBC/PT/INR WBC RBC Hgb Hct MCV RDW Plt PT aPTT INR 10/31/22 1351 1.0 3.48 12.1 35.7 103 13.3 41 WBC/Diff Neutro% Segs% Bands% Lymphs% Monos% Eos% Basos% 10/31/22 1351 36.0 44.0 13.0 5.0 1.0 CBC/PT/INR WBC RBC Hgb Hct MCV RDW Plt PT aPTT INR 10/31/22 1351 1.0 3.48 12.1 35.7 103 13.3 41 Hepatic/Biliary/Pancreas T Prot Albumin D Bili T Bili Alk Phos ALT AST Amylase Lipase 10/31/22 1351 6.5 4.2 0.16 0.7 87 6 11 Fingerstick Glucose (last 72 hours) None Cardiac None Blood Culture None Urine Culture None CSF Culture None TSH None IMAGING/OTHER: 10/03/22 CT Chest/A/P: 1. 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 There is no evidence of significant penetration into the surrounding soft tissues, locoregional annie metastasis, or evidence of distant metastatic disease. 2. Aortoiliac atherosclerotic calcification with ectasia of the ascending aorta and infrarenal aortic segment as detailed. ASSESSMENT AND PLAN: SUMMARY: 61 year old female with a PMH of past smoker, COPD, GERD, MDD, KLEBER, Anal squamous cell carcinoma, presents from radiation therapy for severe neutropenia and stated fever over last 3 days, admitted for febrile neutropenia and further workup/care. PROBLEM LIST: #Neutropenic Fever: #Acute Cystitis: #Thrombocytopenia: #Anal SSC: F/b Dr. Simth. On Curative therapy per onc note; ChemoRT (capecitabine with mitomycin during radiation). WBC 1 with ANC 360. Plt 41. No S/Sx Bleed. Leuk Est. +, 0-2 Epi Cells. UTI likely source of fever/infection s/p chemo causing severe neutropenia. HDS, appears BP soft earlier (). -Start Vanc + Cefepime -f/u C&S, adjust as necessary -Pending Blood Cx's x2 -CXR, Procal, Lactate, Uric, -Trend CBC daily -Neutropenic precautions -Since infectious w/u in place can give tylenol mild-mod, and oxy 5mg severe. -Topical Lidocaine cream to rectal region -Avoid NSAIDs with low plt and risk for bleed -Imodium for diarrhea -Zofran for nausea -Nutrition and onc consult, recs appreciated #Hypomagnesemia: Mg 1.6. Borderline, will replete. -Trend Mg post repletion Other Chronic Conditions: #Hx Smoking: #COPD: Mod Centrilobular Emphysema: -Albuterol PRN, Start Incruse #GERD: -Pepcid #MDD, KLEBER: -Cont. Sertraline -Atarax PRN Prophylaxis: SCD's, Benefit > Risk currently Code Status: Full Code Souleymane Whitley PA-C [facility] Medicine Associated attestation - Jameson Renae MD - 2022 6:17 AM EDT Emergency Department/Inpatient/Observation Split/Shared Documentation 2022, 6:17 AM MDM: I personally performed and obtained the entire medical decision making of this patient during this encounter and confirm the documentation of the entire encounter is accurate. I provided a substantive portion of the care of this patient. Please see my progress note dated 11/01 for updated assessment and plan. Jameson Renae MD [facility] 10-31-2022 History and physical note Images from the original note were not included. GENERAL MEDICAL FLOOR HISTORY AND PHYSICAL Amber Maldonado [id number] AC3-503/[id number] 10/31/2022 Length of stay: 1 day(s) CHIEF COMPLAINT: No chief complaint on file. HPI: 61 year old female with a PMH of past smoker, COPD, GERD, MDD, KLEBER, Anal squamous cell carcinoma, presents from radiation therapy for severe neutropenia and stated fever over last 3 days, admitted for febrile neutropenia and further workup/care. Had fever and malaise over last 3 days. Cough and mild SOB was notable, which is not baseline per pt. Denied urinary symptoms, any s/sx of bleed. States fever for her is lower around 99, which she brought up to Dr. Smith and triggered a w/u that came out significant. Last RT session this AM. Had her PO chemo prior to Rt this AM. No abdominal pain. Appetite is poor, although hungry right now. Has early satiety and hard to force herself to eat. Loosing a lot of weight and feels weak. Supposed to have nutrition consult this week. Only uses ibuprofen for pain not tylenol or opioids. Im anxious and crawling out of my skin, I need something for anxiety . Past Medical History: Diagnosis Date Anxiety Depression with anxiety 08/25/2022 Diverticulitis of large intestine with abscess without bleeding 08/17/2016 Heavy tobacco smoker >10 cigarettes per day 08/17/2016 Perianal mass 07/15/2021 Added automatically from request for surgery [id number] Vitamin D deficiency 12/19/2011 Social History: Social History Tobacco Use Smoking status: Every Day Packs/day: 0.50 Types: Cigarettes Smokeless tobacco: Never Substance Use Topics Alcohol use: Yes Alcohol/week: 4.0 standard drinks of alcohol Types: 4 Glasses of wine per week reports that she does not currently use drugs. Family History: Family History Problem Relation Age of Onset Other (DCIS) Sister REVIEW OF SYSTEMS: As Above MEDCATIONS: No current facility-administered medications on file prior to encounter. Current Outpatient Medications on File Prior to Encounter Medication Sig Dispense Refill albuterol (PROVENTIL HFA) INHALATION HFA inhaler (VENTOLIN,PROAIR,PROVENTIL) 90mcg Inhale 2 Puffs by mouth every 4 hours as needed for Wheezing. 8.5 g 0 benzonatate (Tessalon Perles) 100 MG capsule Take 1 Capsule by mouth 3 times daily as needed. 60 Capsule 0 lidocaine-prilocaine (E mLA) 2.5-2.5 % cream Apply thin layer to affected area. 30 g 3 famotidine (Pepcid) 20 MG tablet Take 1 Tablet by mouth 2 times daily. 60 Tablet 3 ondansetron (ZOFRAN-ODT) 8 MG disintegrating tablet Take 1 Tablet by mouth every 12 hours as needed for Nausea. 30 Tablet 3 capecitabine (XELODA) 500 MG tablet Take 3 tablets (1500 mg) by mouth in twice a day, 12 hours apart on each day radiotherapy is given, Sunday through Sunday. Doses should be taken with water within 30 minutes after a meal. Swallow tablets whole. Avoid cutting or crushing tablets.(825mg/m2/dose). 168 Tablet 0 cetirizine (ZyrTEC) 10 MG tablet Cetirizine (Zyrtec) 10 mg Tablet Active 10 MG PO Daily October 26, 2021 12:00am hydrOXYzine pamoate (VISTARIL) 25 MG capsule Take by mouth. naproxen (NAPROSYN) 500 MG tablet Take by mouth every 12 hours. docusate sodium (COLACE) 100 MG capsule Take 1 Capsule by mouth 2 times daily. 60 Capsule 3 senna (SENOKOT) 8.6 MG tablet Take 1 Tablet by mouth daily as needed for Constipation. 30 Tablet 0 lidocaine (XYLOCAINE) 5 % ointment Apply a thick amount to affected area 2 times daily as needed. 30 g 1 sertraline (ZOLOFT) 50 MG tablet 1 Tablet. OBJECTIVE: BP 134/62 (BP Location: left arm) Pulse 79 Temp 98.5 F (36.9 C) (Oral) Resp 18 Ht 6' (1.829 m) Wt 153 lb (69.4 kg) SpO2 100% BMI 20.75 kg/m No intake or output data in the 24 hours ending 10/31/221912 PHYSICAL EXAM: General: Awake, alert, oriented. Sitting up in bed in no obvious respiratory distress or pain. Eyes: PERRLA, EOMI Head: Normocephalic and atraumatic ENMT: Oral mucosa is pink and moist, without lesions, no tonsillar swelling or exudates Neck: supple without obvious LAD, trachea midline, No JVD Respiratory: Lungs are clear in the upper nova, and diminished in the bases, bilaterally on auscultation Cardiovascular: RRR, S1S2, no m/r/g appreciated Chest/Breast: Atraumatic Gastrointestinal: Non-distended, no ecchymosis, active bowel sounds, soft, non-tender to palpation of all 4 quadrants Lymph: No obvious LAD appreciated Ext: No edema or discoloration. Skin: No obvious skin lesions, lumps, bumps, or sores appreciated Neuro: CN2-12 grossly intact Psych: appropriate mood and affect, no visual or auditory hallucinations, no suicidal or homicidal ideation. Appears calm, collect LAB DATA: Basic Metabolic Panel Na K Cl CO2 Gap Glu BUN Cr Ca Mg PO4 10/31/22 1351 1.6 10/31/22 1351 134 4.3 103 22 13 94 17 1.27 9.2 CBC/PT/INR WBC RBC Hgb Hct MCV RDW Plt PT aPTT INR 10/31/22 1351 1.0 3.48 12.1 35.7 103 13.3 41 WBC/Diff Neutro% Segs% Bands% Lymphs% Monos% Eos% Basos% 10/31/22 1351 36.0 44.0 13.0 5.0 1.0 CBC/PT/INR WBC RBC Hgb Hct MCV RDW Plt PT aPTT INR 10/31/22 1351 1.0 3.48 12.1 35.7 103 13.3 41 Hepatic/Biliary/Pancreas T Prot Albumin D Bili T Bili Alk Phos ALT AST Amylase Lipase 10/31/22 1351 6.5 4.2 0.16 0.7 87 6 11 Fingerstick Glucose (last 72 hours) None Cardiac None Blood Culture None Urine Culture None CSF Culture None TSH None IMAGING/OTHER: 10/03/22 CT Chest/A/P: 1. 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 There is no evidence of significant penetration into the surrounding soft tissues, locoregional annie metastasis, or evidence of distant metastatic disease. 2. Aortoiliac atherosclerotic calcification with ectasia of the ascending aorta and infrarenal aortic segment as detailed. ASSESSMENT AND PLAN: SUMMARY: 61 year old female with a PMH of past smoker, COPD, GERD, MDD, KLEBER, Anal squamous cell carcinoma, presents from radiation therapy for severe neutropenia and stated fever over last 3 days, admitted for febrile neutropenia and further workup/care. PROBLEM LIST: #Neutropenic Fever: #Acute Cystitis: #Thrombocytopenia: #Anal SSC: F/b Dr. Smith. On Curative therapy per onc note; ChemoRT (capecitabine with mitomycin during radiation). WBC 1 with ANC 360. Plt 41. No S/Sx Bleed. Leuk Est. +, 0-2 Epi Cells. UTI likely source of fever/infection s/p chemo causing severe neutropenia. HDS, appears BP soft earlier (). -Start Vanc + Cefepime -f/u C&S, adjust as necessary -Pending Blood Cx's x2 -CXR, Procal, Lactate, Uric, -Trend CBC daily -Neutropenic precautions -Since infectious w/u in place can give tylenol mild-mod, and oxy 5mg severe. -Topical Lidocaine cream to rectal region -Avoid NSAIDs with low plt and risk for bleed -Imodium for diarrhea -Zofran for nausea -Nutrition and onc consult, recs appreciated #Hypomagnesemia: Mg 1.6. Borderline, will replete. -Trend Mg post repletion Other Chronic Conditions: #Hx Smoking: #COPD: Mod Centrilobular Emphysema: -Albuterol PRN, Start Incruse #GERD: -Pepcid #MDD, KLEBER: -Cont. Sertraline -Atarax PRN Prophylaxis: SCD's, Benefit > Risk currently Code Status: Full Code Souleymane Whitley PA-C [facility] Medicine Associated attestation - Jameson Renae MD - 2022 6:17 AM EDT Emergency Department/Inpatient/Observation Split/Shared Documentation 2022, 6:17 AM MDM: I personally performed and obtained the entire medical decision making of this patient during this encounter and confirm the documentation of the entire encounter is accurate. I provided a substantive portion of the care of this patient. Please see my progress note dated 11/01 for updated assessment and plan. Jameson Renae MD documented in this encounter [facility] 10-31-2022 Plan of care note Problem: Routine Care: Goal: Patient care will be managed and maintained throughout hospital stay per unit specific routine care procedure Outcome: Progressing Problem: Safety: Goal: Patient will remain free of falls during hospital stay Outcome: Progressing Goal: Free from injury during hospitalization Outcome: Progressing Problem: Acute Pain: Goal: Ability to identify pain intensity on a pain scale and rate it consistently will be achieved and maintained Outcome: Progressing Goal: Understanding of proper administration and use of medicines will be achieved Outcome: Progressing Goal: Acceptable level of pain which allows the patient to achieve functional outcome goals Outcome: Progressing Goal: Ability to identify factors that manage or decrease pain will be achieved Outcome: Progressing Problem: VTE Prophylaxis: Goal: Will be free of DVT Outcome: Progressing Problem: Discharge Planning: Goal: Discharge needs of the adult patient will be met Outcome: Progressing [facility] 10-31-2022 Note Formatting of this n ote might be different from the original. AdmissionCare Guideline: Chemotherapy, Side Effects, Observation Based on the indications selected for the patient, the bed status of Admit to Observation was determined to be MET The following indications were selected as present at the time of evaluation of the patient: - Abnormal blood counts (eg, anemia, thrombocytopenia, neutropenia) AdmissionCare documentation entered by: May Baires [facility], 26th edition, Copyright [address] [facility] All Rights Reserved. [id number] [facility] 10-19-2022 History of Present illness Narrative Images from the original note were not included. PALLIATIVE CARE CONSULT NOTE: Requesting provider: Dr. Ramos Reason for consult: Symptom management + GOC Cancer Diagnosis: Anal Cell Cancer Cancer Treatment: Concurrent chemoradiation Chief Complaint / HPI: Amber Maldonado is a 61 year old female with a history of depression, anxiety, IBS, and anal cell cancer. Specific Palliative Care ROS Initial Assessment: Pain No pain Dyspnea Denies Nausea/Vomiting Zofran -- as needed Constipation N/A Diarrhea Moving bowels daily - not diarrhea Weakness/Fatigue N/A Anxiety/Depression 100 mg Zoloft Hydroxyzine Appetite/Nutrition Good Insomnia/Sleep Getting to sleep is hard - but once asleep OK Other N/A SPIRITUAL / CULTURAL / PSYCHOSOCIAL / SUPPORT SYSTEM: Live at home with tl Santosh 2 children 38 year old - [place] (first grandchild due in 4 weeks -- will be girl) 36 year old lives in [place] --- Deven and Boris Cueva Pat - sister - coming to stay for a bit Advanced Directives: Code status - FULL CODE Living will/DPOA- - [place] - primary \OARRS was reviewed today. Additional documentation is necessary because (indicate below): OARRS Additional Documentation: Complete the following requirements (necessary when OARRS documentation is required): Concern for Abuse/diversion present: No Document progress toward treatment objectives: Stable Document functional status of patient ADL s : Stable Adverse Effects: No Analgesia Beneficial Aberrant Behaviors (RED FLAGS listed above): No 4. Treatment agreement/consent filed for opioid analgesics and stimulants? (Required when opioid analgesics ? 50 MME/Day for longer than 6 weeks or stimulants in compliance with State law and/or S policy) No 5. Consider consult to security specialist. Referral to addiction medicine specialist is not indicated. Patient was advised that controlled substances may impair judgement, ability to process information, drive, or operate dangerous machinery. Controlled substances should not be mixed with alcohol or any other controlled medications without express direction from provider. Patient was informed of risks for misuse and potential for addiction, and advised on safe storage and disposal of controlled substances HISTORY: Medical - Past Medical History: Diagnosis Date Anxiety Depression with anxiety 08/25/2022 Diverticulitis of large intestine with abscess without bleeding 08/17/2016 Heavy tobacco smoker >10 cigarettes per day 08/17/2016 Perianal mass 07/15/2021 Added automatically from request for surgery [id number] Vitamin D deficiency 12/19/2011 Surgical Review of patient's past surgical history indicates: COLECTOMY open, for diverticulitis EUA, RECTAL (07/19/2021) Procedure: EUA, anal mass biopsies; Surgeon: Yoselin Padron MD; Location: PERIOPERATIVE SERVICES; Service: General BIOPSY, RECTAL (08/28/2022) Procedure: BIOPSY, RECTAL, ANAL MASS BIOPSY; Surgeon: Yoselin Padron MD; Location: PERIOPERATIVE SERVICES; Service: General Social- Social Determinants of Health Tobacco Use: High Risk (10/19/2022) Patient History Smoking Tobacco Use: Every Day Smokeless Tobacco Use: Never Passive Exposure: Not on file Alcohol Use: Not on file Financial Resource Strain: High Risk (10/12/2022) Overall Financial Resource Strain (CARDIA) Difficulty of Paying Living Expenses: Very hard Food Insecurity: Food Insecurity Present (10/12/2022) Hunger Vital Sign Worried About Running Out of Food in the Last Year: Often true Ran Out of Food in the Last Year: Sometimes true Transportation Needs: No Transportation Needs (10/12/2022) PRAPARE - Transportation Lack of Transportation (Medical): No Lack of Transportation (Non-Medical): No Physical Activity: Insufficiently Active (10/12/2022) Exercise Vital Sign Days of Exercise per Week: 4 days Minutes of Exercise per Session: 10 min Stress: Stress Concern Present (10/12/2022) [employer] - Occupational Stress Questionnaire Feeling of Stress : Rather much Social Connections: Unknown (10/12/2022) Social Connection and Isolation Panel [NHANES] Frequency of Communication with Friends and Family: Three times a week Frequency of Social Gatherings with Friends and Family: Patient refused Attends Mandaeism Services: Patient refused Active Member of Clubs or Organizations: Yes Attends Club or Organization Meetings: More than 4 times per year Marital Status: Living with partner Intimate Partner Violence: Not At Risk (10/12/2022) Humiliation, Afraid, Rape, and Kick questionnaire Fear of Current or Ex-Partner: No Emotionally Abused: No Physically Abused: No Sexually Abused: No Depression: Not on file Housing Stability: High Risk (10/12/2022) Housing Stability Vital Sign Unable to Pay for Housing in the Last Year: Yes Number of Places Lived in the Last Year: 1 Unstable Housing in the Last Year: No CURRENT MEDICATIONS: Current Outpatient Medications Medication Instructions capecitabine (XELODA) 500 MG tablet Take 3 tablets (1500 mg) by mouth in twice a day, 12 hours apart on each day radiotherapy is given, Sunday through Sunday. Doses should be taken with water within 30 minutes after a meal. Swallow tablets whole. Avoid cutting or crushing tablets.(825mg/m2/dose). cetirizine (ZyrTEC) 10 MG tablet Cetirizine (Zyrtec) 10 mg Tablet Active 10 MG PO Daily October 26, 2021 12:00am docusate sodium (COLACE) 100 mg, Oral, 2 TIMES DAILY famotidine (PEPCID) 20 mg, Oral, 2 TIMES DAILY hydrOXYzine pamoate (VISTARIL) 25 MG capsule Oral ibuprofen (Ibuprofen 100 Gordon Strength) 100 MG chewable tablet Ibuprofen Active ibuprofen (MOTRIN) 400 MG tablet 1 tablet with food or milk as needed lidocaine (XYLOCAINE) 5 % ointment Apply a thick amount to affected area 2 times daily as needed. naproxen (NAPROSYN) 500 MG tablet Oral, EVERY 12 HOURS ondansetron (ZOFRAN-ODT) 8 mg, Oral, EVERY 12 HOURS PRN senna (SENOKOT) 8.6 mg, Oral, DAILY PRN sertraline (ZOLOFT) 100 MG tablet Sertraline (Zoloft) 100 mg Tablet Active 100 MG PO Daily October 26, 2021 12:00am sertraline (ZOLOFT) 50 MG tablet 1 Tablet ALLERGIES: Allergies Allergen Reactions Lactase Diarrhea Molds & Smuts Pollen Extract Eye watering, headaches Eye watering, headaches PHYSICAL EXAMINATION: Physical Exam HENT: Head: Normocephalic. Mouth/Throat: Mouth: Mucous membranes are moist. Cardiovascular: Rate and Rhythm: Normal rate. Pulmonary: Effort: Pulmonary effort is normal. Breath sounds: Normal breath sounds. Musculoskeletal: General: Normal range of motion. Skin: General: Skin is warm. Neurological: General: No focal deficit present. Mental Status: She is alert and oriented to person, place, and time. LABS/ IMAGING: CBC WBC RBC Hgb Hct MCV RDW Plt 10/03/22 1158 6.5 4.40 15.5 45.7 104 14.0 149 Basic Metabolic Panel Na K Cl CO2 Gap Glu BUN Cr Ca Mg PO4 10/03/22 1158 1.8 10/03/22 1158 139 5.4 106 26 12 90 21 1.13 9.8 Results for orders placed or performed during the hospital encounter of 10/03/22 (from the past 29733 hour(s)) HEPATIC FUNCTION PANEL Collection Time: 10/03/22 11:58 AM Result Value Ref Range Albumin 4.8 3.4 - 5.1 g/dL Bilirubin, Direct 0.12 0.10 - 0.30 mg/dL Bilirubin, Total 0.7 0.1 - 1.5 mg/dL Alkaline Phosphatase 119 40 - 200 IU/L ALT (SGPT) 13 7 - 40 IU/L AST (SGOT) 21 7 - 40 IU/L Protein, Total 7.6 5.7 - 8.1 g/dL *Note: Due to a large number of results and/or encounters for the requested time period, some results have not been displayed. A complete set of results can be found in Results Review. IMPRESSION/ RECOMMENDATIONS: #Anxiety - Continue sertraline and atarax PRN by PCP - Offered behavioral health referral - Discussed TGP #Anal Cell Cancer Discussed the role of palliative care in their care to support the patient and optimize symptom management , functional improvement, and to maximize or maintain their highest quality of life regardless of treatment or response to treatments or disease -- Discussed prognosis and disease trajectory in typical oncology patient -- Espoused hope for the best, prepare for the worse approach to care -- Discussed how the cancer center team will help guide them on medical decision making based on the patient's values, goals, disease stage/activity/trajectory, performance status and prognosis. -- Denies any pain or other concerning symptoms at this time. #GOC/Advanced care planning/ Psychosocial support - FULL CODE - Santosh Baez is primary support -- would like to complete ACD this visit and make Santosh her HCPOA. AYANNA Oropeza .Patient was identified by name and date of . Alida Cano .Patient at risk for falls:No Falls Risk protocol implemented: No documented in this encounter [facility] 10-16-2022 Note Encounter addended b y: Ky Vegas APRN-CNS on: 10/16/2022 5:00 PM Actions taken: Clinical Note Signed [facility] 10-16-2022 Miscellaneous Notes Encounter addended by: Ky Vegas APRN-CNS on: 10/16/2022 5:00 PM Actions taken: Clinical Note Signed documented in this encounter [facility] 10-16-2022 History of Present illness Narrative Patient was identified by name and date of . Lyn Baum RN Patient at risk for falls:No Falls Risk protocol implemented: N/A Perianal mass (Primary Diagnosis) [472962] Anal cancer (HCC) [471892] Encounter for antineoplastic chemotherapy [V58.11.ICD-9-CM] Pt presented to clinic for D1C1 mitomycin and xeloda. Pt had labs drawn previously. Chemo re-enforcement given to pt. Information on mitomycin given, including side effects risks and benefits. Stressed the importance of proper hand hygiene, hydration and of taking temperature when not feeling well. Pt encouraged to call if temperature is ever 100.4 degrees farenheit or higher. Pt verbalized understanding and encouraged to ask questions. Phone numbers given to pt to call with questions during office hours and non-office hours. 22 g x 1 in angio used for IV initiation in left forearm. IV checked for positive blood return. IV flushed with 10 ml of NaCl. Per MD pt ok for treatment. Pt given zof/dec as premeds followed by mitomycin per MD order. Pt tolerated treatment well. AVS printed and given to pt. IV flushed with 10 ml of NaCl prior to removal. Dressing applied. Pt encouraged to get labs drawn at any outpatient lab with no appt needed prior to next chemo. Lab locations with hours or operation and phone numbers attached to AVS. Pt verbalized follow up instructions and discharged home. Lyn Baum RN documented in this encounter [facility] 10-16-2022 Hospital Discharge instructions Lyn Baum RN - 10/16/2022 12:02 PM EDT Please get labs prior to 11/13/22 appt. No appt needed for labs if going to an outpatient lab. Labs needed are CBCD, BMP, Hepatic and Mag Pre-infusion labs The majority of cancer infusions will require labs the day before the infusion It is a requirement to have these labs drawn at any [facility] lab BEFORE your scheduled appointment. This will ensure a smoother experience the day of your infusion as the average turn around time for same day blood work is two hours. Typical pre-infusion labs include a CBC w/differential, BMP and LFT and your physician will have standing labs ordered. If you have a mediport and would like to come to the Cancer Center for an RN to access and draw labs, please let your nurse know and we will schedule you an appointment All other lab draws are walk-in and do not require an appointment If your appointment is on a Sunday, there are several labs that have Sunday/Sunday hours. If you have questions about what labs are required or when to have them drawn, please talk to your treatment nurse or call [phone] Lab Locations (recommend calling prior to confirm open hours as these are subject to change) [facility]: [phone]. Sunday-Sunday 7AM - 545PM [place]: [phone]. [phone]. Mondays 830AM - 530PM. Sunday-Sunday 830AM - 530PM. Sunday of the month 830AM - 1230PM [place]: [phone]. Sunday - Sunday 8AM - 5PM [place]: [phone]. [phone]. Sunday - Sunday 830AM - 730PM. Sunday 830AM - 4PM. Sunday 10AM - 2PM [place]: [phone]. [phone]. Sunday - Sunday 730AM - 5PM [place]: [phone]. [phone]. Sunday - Sunday 730AM - 730PM. Sunday 730AM - 4PM [place]: [phone]. [phone]. Sunday - Sunday 730AM - 5PM [place] (150): [phone]. [phone]. Sunday - Sunday 730AM - 730PM. Sunday 8AM - 4PM. Sunday 10AM-2PM If you are unsure, or have any questions, please ask! [facility] Care Staff : [phone] The following attachments cannot be sent through Care Everywhere.Mito[employer] (Systemic), ADULT (Czech)documented in this encounter [facility] 10-16-2022 History of Present illness Narrative Patient was identified by name and date of . Andrea Marquez Body Mass Index is 20.75. Body Surface Area is 1.90 square meters according to the formula of Maggy and Maggy. Patient at risk for falls:Yes Falls Risk protocol implemented: No Blood pressure 139/84, pulse 85, temperature 98.1 F (36.7 C), resp. rate 18, height 6' (1.829 m), weight 153 lb (69.4 kg), SpO2 98 %. Andrea Marquez Images from the original note were not included. [facility] Name: Amber Maldonado Medical Oncologist: Dr. Smith Date of Service: 10/16/2022 Referral: No referring provider defined for this encounter. PCP: No primary care provider on file. 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 B. Perianal, Right Anal Verge At least high-grade anal intraepithelial neoplasia/CARCINOMA IN SITU (AIN3/CIS), invasion cannot be totally excluded. C. Perianal, Left Lateral WELL-DIFFERENTIATED SQUAMOUS CELL CARCINOMA LIKELY INVASIVE in a background of high-grade anal intraepithelial neoplasia/CARCINOMA IN SITU (AIN3/CIS). D. Perianal, Left Posterior WELL-DIFFERENTIATED SQUAMOUS CELL CARCINOMA LIKELY INVASIVE in a background of high-grade anal intraepithelial neoplasia/CARCINOMA IN SITU (AIN3/CIS). E. Perianal, Right lateral At least high-grade anal intraepithelial neoplasia/CARCINOMA IN SITU (AIN3/CIS), invasion cannot be totally excluded. No imaging for 5 years 08/28/22 anal verge biopsies Left posterior and lateral WELL-DIFFERENTIATED SQUAMOUS CELL CARCINOMA WITH MINUTE FOCAL SUPERFICIAL INVASION. 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 CT 10/03/22 1. 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 There is no evidence of significant penetration into the surrounding soft tissues, locoregional annie metastasis, or evidence of distant metastatic disease. 2. Aortoiliac atherosclerotic calcification with ectasia of the ascending aorta and infrarenal aortic segment as detailed. 10/16/22 Capecitabine 1500mg BID + Mitomycin + RXT Interval history She presents today to start the chemo and RT. She denied nausea/vomiting/bleeding from anus. She has fatigue and anxiety from the new process. She usually has loose stools 2-3 times a day. She hardly has constipation. She eats well. She has arthritis in hands, managed with pain cream. She takes TUMs for heartburn as needed. Allergies: Lactase, Molds & smuts, and Pollen extract PMH: Past Medical History: Diagnosis Date Anxiety Depression with anxiety 08/25/2022 Diverticulitis of large intestine with abscess without bleeding 08/17/2016 Heavy tobacco smoker >10 cigarettes per day 08/17/2016 Perianal mass 07/15/2021 Added automatically from request for surgery [id number] Vitamin D deficiency 12/19/2011 Treatment of excessive growth as child with hormones until menstrual periods started to stop growth Medication: Current Outpatient Medications Medication Sig Dispense Refill loratadine (CLARITIN) 10 MG tablet 1 Tablet. sertraline (ZOLOFT) 50 MG tablet 1 Tablet. ibuprofen (MOTRIN) 400 MG tablet 1 tablet with food or milk as needed No current facility-administered medications for this encounter. FamHx: Review of patient's family history indicates: Problem: Other (DCIS) Relation: Sister Age of Onset: (Not Specified) No malignancy SocHx: Social History Socioeconomic History Marital status: Unknown Highest education level: Associate degree: occupational, technical, or vocational program Tobacco Use Smoking status: Every Day Packs/day: 0.50 Types: Cigarettes Smokeless tobacco: Never Substance and Sexual Activity Alcohol use: Yes Alcohol/week: 4.0 standard drinks of alcohol Types: 4 Glasses of wine per week Drug use: Not Currently Social Determinants of Health Financial Resource Strain: High Risk (10/12/2022) Overall Financial Resource Strain (CARDIA) Difficulty of Paying Living Expenses: Very hard Food Insecurity: Food Insecurity Present (10/12/2022) Hunger Vital Sign Worried About Running Out of Food in the Last Year: Often true Ran Out of Food in the Last Year: Sometimes true Transportation Needs: No Transportation Needs (10/12/2022) PRAPARE - Transportation Lack of Transportation (Medical): No Lack of Transportation (Non-Medical): No Physical Activity: Insufficiently Active (10/12/2022) Exercise Vital Sign Days of Exercise per Week: 4 days Minutes of Exercise per Session: 10 min Stress: Stress Concern Present (10/12/2022) [employer] [employer] - Occupational Stress Questionnaire Feeling of Stress : Rather much Social Connections: Unknown (10/12/2022) Social Connection and Isolation Panel [NHANES] Frequency of Communication with Friends and Family: Three times a week Frequency of Social Gatherings with Friends and Family: Patient refused Attends Mandaeism Services: Patient refused Active Member of Clubs or Organizations: Yes Attends Club or Organization Meetings: More than 4 times per year Marital Status: Living with partner Intimate Partner Violence: Not At Risk (10/12/2022) Humiliation, Afraid, Rape, and Kick questionnaire Fear of Current or Ex-Partner: No Emotionally Abused: No Physically Abused: No Sexually Abused: No Lives with significant other + two dogs Two children both 6'8 ROS: Review of Systems Constitutional: Positive for malaise/fatigue. Negative for chills, fever and weight loss. Respiratory: Negative for cough (smoker) and shortness of breath. Smokers cough dry Cardiovascular: Negative for chest pain. Gastrointestinal: Positive for heartburn. Negative for constipation, diarrhea, nausea and vomiting. Loose stools 2-3 times a day Genitourinary: Negative. Musculoskeletal: Positive for joint pain (hands). Reports low bone density Arthritis type? Skin: Negative for itching and rash. Neurological: Positive for headaches (intermittent, usual). Negative for focal weakness and weakness. Endo/Heme/Allergies: Does not bruise/bleed easily. Gestational seizures, resolved Psychiatric/Behavioral: Positive for substance abuse. Daily alcohol ; tobacco abuse; CBD gummies PE: Physical Exam Constitutional: Appearance: Normal appearance. HENT: Head: Normocephalic and atraumatic. Nose: No congestion or rhinorrhea. Eyes: General: No scleral icterus. Extraocular Movements: Extraocular movements intact. Conjunctiva/sclera: Conjunctivae normal. Pulmonary: Effort: Pulmonary effort is normal. No respiratory distress. Breath sounds: No wheezing. Abdominal: Comments: Arcelia anal skin with pink plaque, irregular shaped several centimeters - not assessed Musculoskeletal: General: Normal range of motion. Cervical back: Normal range of motion. Comments: Enlarged joints hands Skin: General: Skin is warm. Coloration: Skin is not jaundiced. Findings: No rash. Comments: Soft nodules x 3 without color change or pain on fingers and left elbow Neurological: General: No focal deficit present. Mental Status: She is alert and oriented to person, place, and time. Cranial Nerves: No cranial nerve deficit. Coordination: Coordination normal. Gait: Gait normal. Psychiatric: Behavior: Behavior normal. ECOG 0 BP 139/84 Pulse 85 Temp 98.1 F (36.7 C) Resp 18 Ht 6' (1.829 m) Wt 153 lb (69.4 kg) SpO2 98% BMI 20.75 kg/m Weight: Wt Readings from Last 10 Encounters: 10/16/22 153 lb (69.4 kg) 10/03/22 153 lb 6.4 oz (69.6 kg) 08/28/22 160 lb (72.6 kg) 08/25/22 160 lb (72.6 kg) 07/25/22 157 lb 9.6 oz (71.5 kg) 07/19/21 151 lb (68.5 kg) 07/15/21 151 lb (68.5 kg) Attends: with significant other Investigations: CBC (last 3 years, up to 5 values) WBC RBC Hgb Hct MCV RDW Plt 10/03/22 1158 6.5 4.40 15.5 45.7 104 14.0 149 Basic Metabolic Panel Na K Cl CO2 Gap Glu BUN Cr Ca 10/03/22 1158 139 5.4 106 26 12 90 21 1.13 9.8 all current data reviewed. Assessment: ECOG PS 0 EToH, tobacco abuse Insurance difficulties Likely invasive SCCa anal verge on biopsy last year 2021 H/o AIN III s/p laser + topical therapy 2017 OSH Now 08/28/22 anal verge biopsies Left posterior and lateral WELL-DIFFERENTIATED SQUAMOUS CELL CARCINOMA WITH MINUTE FOCAL SUPERFICIAL INVASION Tumor Board recommended cape + mitomycin + radiation therapy Dr. Smith explained therapy is curative in nature. Specifically we discussed the risk, benefits, and alternatives to treatment with capecitabine with mitomycin during radiation, which include, but are not limited to, myelosuppression potentially requiring blood transfusions for anemia, low platelets which could lead to bleeding and transfusion, low wbc increasing risk for infection; diarrhea; mucositis; 30% risk alopecia; nnkgbc-xijydmc-ebrobhsfjottagmulh; rare neurologic changes; nausea and vomiting; anorexia and dysguesia; dermatitis and dry skin; cardiac problems including CAD vasospasm and chest pain; hepatic and renal dysfunction; and rarely treatment-related . Not being treated with anti-cancer therapy is an option. The majority of the diarrhea is related to radiation and can be controlled with imodium; fatigue is very common. I reviewed her condition, stable to start cape + mitomycin and radiation today. Reiterated possible side effects, reviewed her baseline condition, and discussed treatment plan. Plan/orders: - continues RXT daily for 5 weeks - mitomycin on day 29 - cape 1500mg BID from Mon to Fri x 5 weeks: I will confirm it with Dr. Smith. - reviewed labs - discussed [facility] [place] in 3-4 week due to possible fatigue - f/u with social work - discussed anti-emetics and imodium as needed - pt deferred dermatology consult for nodules on hands and left elbow for now: close monitoring it for now. - Continue with other providers and medications as prescribed RTC in 4 weeks and prn Pt verbalized the understanding of the plan that we discussed. She was instructed to contact the medical team for any questions or concerns. All questions and concerns were addressed as pt was satisfied. The total time, 45 minutes Time-based billing justifications: Reviewing (chart, labs, and other clinical notes) Obtaining history (or reviewing separately obtained history) Patient visit (including performing a medically appropriate exam) Counseling/educating the patient/family/caregiver Ordering (medications, tests, procedures - including independent interpretation of results when not reported separately) Charting in [facility] GIRISH Bueno 10/16/2022 3:56 PM documented in this encounter [facility] 10-12-2022 History of Present illness Narrative Chemotherapy Education Note Amber Maldonado is a 61 year old female recently diagnosed with anal cancer. Pharmacist was consulted to educate patient on xeloda . Medication List Accurate as of October 06, 2022 11:59 PM. If you have any questions, ask your nurse or doctor. CONTINUE taking these medications cetirizine 10 MG tablet; Commonly known as: ZyrTEC docusate sodium 100 MG capsule; Commonly known as: COLACE; Take 1 Capsule by mouth 2 times daily. hydrOXYzine pamoate 25 MG capsule; Commonly known as: VISTARIL * ibuprofen 400 MG tablet; Commonly known as: MOTRIN * Ibuprofen 100 Gordon Strength 100 MG chewable tablet; Generic drug: ibuprofen lidocaine 5 % ointment; Commonly known as: XYLOCAINE; Apply a thick amount to affected area 2 times daily as needed. naproxen 500 MG tablet; Commonly known as: NAPROSYN senna 8.6 MG tablet; Commonly known as: SENOKOT; Take 1 Tablet by mouth daily as needed for Constipation. * sertraline 50 MG tablet; Commonly known as: ZOLOFT * sertraline 100 MG tablet; Commonly known as: ZOLOFT * This list has 4 medication(s) that are the same as other medications prescribed for you. Read the directions carefully, and ask your doctor or other care provider to review them with you. Hospital Outpatient Visit on 10/03/2022 Component Date Value Ref Range Status CTDI VOL 10/03/2022 0.10 (mGy),6.77 (mGy),7.11 (mGy),6.44 (mGy) Final PHANTOM TYPE 10/03/2022 IEC Body Dosimetry Phantom,IEC Body Dosimetry Phantom,IEC Body Dosimetry Phantom,IEC Body Dosimetry Phantom Final CT DLP 10/03/2022 818.13 (mGy.cm) Final CT Series 10/03/2022 Topogram,C/A/P ,KIDNEY,BLADDER Final Hospital Outpatient Visit on 10/03/2022 Component Date Value Ref Range Status Glucose 10/03/2022 90 80 - 116 mg/dL Final Sodium 10/03/2022 139 135 - 148 mmol/L Final Potassium 10/03/2022 5.4 (H) 3.3 - 5.3 mmol/L Final Carbon Dioxide 10/03/2022 26 21 - 30 mmol/L Final Chloride 10/03/2022 106 97 - 111 mmol/L Final Blood Urea Nitrogen 10/03/2022 21 8 - 22 mg/dL Final Creatinine 10/03/2022 1.13 (H) 0.50 - 1.10 mg/dL Final Calcium 10/03/2022 9.8 8.4 - 10.4 mg/dL Final Anion Gap 10/03/2022 12 10 - 20 Final Estimated GFR (CKD-EPI) 10/03/2022 55 (L) >=60 mL/min/1.73sqm Final Albumin 10/03/2022 4.8 3.4 - 5.1 g/dL Final Bilirubin, Direct 10/03/2022 0.12 0.10 - 0.30 mg/dL Final Bilirubin, Total 10/03/2022 0.7 0.1 - 1.5 mg/dL Final Alkaline Phosphatase 10/03/2022 119 40 - 200 IU/L Final ALT (SGPT) 10/03/2022 13 7 - 40 IU/L Final AST (SGOT) 10/03/2022 21 7 - 40 IU/L Final Protein, Total 10/03/2022 7.6 5.7 - 8.1 g/dL Final Magnesium 10/03/2022 1.8 1.6 - 2.8 mg/dL Final WBC 10/03/2022 6.5 4.5 - 11.5 K/uL Final RBC 10/03/2022 4.40 4.00 - 5.20 M/uL Final Hemoglobin 10/03/2022 15.5 (H) 12.0 - 15.0 g/dL Final Hematocrit 10/03/2022 45.7 36.0 - 46.0 % Final MCV 10/03/2022 104 (H) 80 - 100 fL Final MCH 10/03/2022 35.1 (H) 26.0 - 34.0 pg Final MCHC 10/03/2022 33.8 32.0 - 35.9 g/dL Final Platelet 10/03/2022 149 (L) 150 - 400 K/uL Final RDW-CV 10/03/2022 14.0 11.5 - 14.5 % Final MPV 10/03/2022 8.4 7.5 - 11.2 fL Final Neutrophils 10/03/2022 61.3 31.0 - 76.0 % Final Neutrophil # 10/03/2022 3.97 1.50 - 8.00 K/uL Final Lymphocytes 10/03/2022 27.0 24.0 - 44.0 % Final Lymphocytes # 10/03/2022 1.75 1.00 - 4.80 K/uL Final Monocytes 10/03/2022 8.1 2.0 - 11.0 % Final Monocyte # 10/03/2022 0.52 0.20 - 1.00 K/uL Final Eosinophil 10/03/2022 2.8 0.1 - 4.0 % Final Eosinophil # 10/03/2022 0.18 0.00 - 0.70 K/uL Final Basophils 10/03/2022 0.8 <=1.9 % Final Basophil # 10/03/2022 0.05 0.00 - 0.20 K/uL Final Medication list was reviewed and evaluated for potential drug interactions, baseline labs were reviewed including renal, hepatic, and other drug and disease specific values as well as potential toxicity risks for monitoring. Chemotherapy Education I had the pleasure of speaking with Amber. Administration, handling and storage requirements were discussed with the patient. I Discussed all premedications and supportive care medications with the patient. The patient was informed of the following AE: Fatigue, N/V/D, HFS, mucositis, neutropenia, thrombocytopenia. Patient and family/caregiver verbalized understanding. Adequate time was given to ask and address any questions and concerns. My Phone number was provided to the patient and she was encouraged to call with any questions/concerns. Will follow up in 4 weeks after the completion of RT to assess future treatment plan Camron Roque PharmD Oncology Specialty Pharmacist [id number] Date: 10/12/22 Xeloda prescription on file and can be filled here at our [facility] with a $11.16 co-pay. 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 Thank you for this referral, Naheed Vinson CPhT Images from the original note were not included. [facility] Referral (New) [facility] a prescription for capecitabine (Xeloda) for this patient on 10/10/2022. [facility] has been contacted to initiate a Prior Authorization for this medication. This is an antineoplastic therapy. Patient Information: Amber Maldonado is a 61 year old female [address] [place] [id number] Insurance on file: None Specialty Medication Medication and dosing: capecitabine (XELODA) 500 MG tablet- Take 3 tablets (1500 mg) by mouth in twice a day, 12 hours apart on each day radiotherapy is given, Sunday through Sunday. Doses should be taken with water within 30 minutes after a meal. Swallow tablets whole. Avoid cutting or crushing tablets.(825mg/m2/dose). Indication for treatment (ICD-10): Perianal mass [K62.89] Ordering and Authorizing Provider: Lara Smith MD [address] [place] [address] Supporting Clinical Information: Progress Notes 10/03/2022 (Dr. Smith) CC: invasive SCCa anal verge H/o AIN III s/p laser + topical therapy 2017 OSH 07/19/2021 biopsies EUA Perianal, Left Anal Verge WELL-DIFFERENTIATED SQUAMOUS CELL CARCINOMA LIKELY INVASIVE in a background of high-grade anal intraepithelial neoplasia/CARCINOMA IN SITU (AIN3/CIS, see immunohistochemistry result). Plan/orders: Cape + mitomycin consent and teaching ECOG PS: 0 Planned duration of therapy: see Oncology treatment plan in Episodes tab for details Goals of therapy: curative Potential barriers to treatment: insurance coverage, indirect and direct costs Prior treatments: No previous systemic therapies Current therapy: concurrent xeloda, Hi, RT Current Outpatient Medications: ibuprofen (Ibuprofen 100 Gordon Strength) 100 MG chewable tablet, Ibuprofen Active, Disp: , Rfl: cetirizine (ZyrTEC) 10 MG tablet, Cetirizine (Zyrtec) 10 mg Tablet Active 10 MG PO Daily October 26, 2021 12:00am, Disp: , Rfl: hydrOXYzine pamoate (VISTARIL) 25 MG capsule, Take by mouth., Disp: , Rfl: naproxen (NAPROSYN) 500 MG tablet, Take by mouth every 12 hours., Disp: , Rfl: sertraline (ZOLOFT) 100 MG tablet, Sertraline (Zoloft) 100 mg Tablet Active 100 MG PO Daily October 26, 2021 12:00am, Disp: , Rfl: docusate sodium (COLACE) 100 MG capsule, Take 1 Capsule by mouth 2 times daily., Disp: 60 Capsule, Rfl: 3 senna (SENOKOT) 8.6 MG tablet, Take 1 Tablet by mouth daily as needed for Constipation., Disp: 30 Tablet, Rfl: 0 lidocaine (XYLOCAINE) 5 % ointment, Apply topically 2 times daily as needed. Apply thick amount to affected area., Disp: 30 g, Rfl: 1 sertraline (ZOLOFT) 50 MG tablet, 1 Tablet., Disp: , Rfl: ibuprofen (MOTRIN) 400 MG tablet, 1 tablet with food or milk as needed, Disp: , Rfl: Current Facility-Administered Medications: iohexol (OMNIPAQUE) 300 MG/ML injection, 70 mL, Intravenous Push, One Time Dose, Mitra Ramos MD, PhD Clinically Significant Drug-Drug interactions: Y --Interaction: Ibuprofen/naproxen- duplication of therapy. --Recommendation: short course (7 ds) of naproxen back in 2021, no dispense history of ibuprofen Patient Active Problem List: Perianal mass [K62.89] Depression with anxiety [F41.8] Diverticulitis of large intestine with abscess without bleeding [K57.20] Heavy tobacco smoker >10 cigarettes per day [F17.210] Seasonal allergies [J30.2] Vitamin D deficiency [E55.9] Anal squamous cell carcinoma (HCC) [C21.0] Allergies: Allergies Allergen Reactions Lactase Diarrhea Molds & Smuts Pollen Extract Eye watering, headaches Eye watering, headaches Immunization History Administered Date(s) Administered Pfizer Monovalent (12+ yrs) SARS-COV-2 (COVID-19) vaccine, mRNA, spike protein, LNP, pres. free, 30 mcg/0.3mL dose (XOS=101) 07/23/2020, 08/09/2020 Pertinent Labs: CBC WBC RBC Hgb Hct MCV RDW Plt 10/03/22 1158 6.5 4.40 15.5 45.7 104 14.0 149 Basic Metabolic Panel Na K Cl CO2 Gap Glu BUN Cr Ca Mg PO4 10/03/22 1158 1.8 10/03/22 1158 139 5.4 106 26 12 90 21 1.13 9.8 CBC/PT/INR WBC RBC Hgb Hct MCV RDW Plt PT aPTT INR 10/03/22 1158 6.5 4.40 15.5 45.7 104 14.0 149 Latest Reference Range & Units 10/03/22 11:58 Albumin 3.4 - 5.1 g/dL 4.8 Protein, Total 5.7 - 8.1 g/dL 7.6 Bilirubin, Direct 0.10 - 0.30 mg/dL 0.12 Bilirubin, Total 0.1 - 1.5 mg/dL 0.7 Alkaline Phosphatase 40 - 200 IU/L 119 ALT (SGPT) 7 - 40 IU/L 13 AST (SGOT) 7 - 40 IU/L 21 Creatinine clearance from Cockroft-Gault: 56 ml/min based on creatinine of 1.13 on 10/03/2022 using actual weight 69.6 kg (IBW 73.1 kg ignored) Estimated GFR: 55 on 10/03/2022 Estimated body surface area is 1.9 meters squared as calculated from the following: Height as of 10/03/22: 6' (1.829 m). Weight as of 10/03/22: 153 lb 6.4 oz (69.6 kg). Recommended Lab Monitoring: CBC with differential (at baseline and prior to each cycle), hepatic function (as clinically indicated; more frequently if hepatotoxicity occurs), and kidney function (at baseline and as clinically indicated). Monitor hydration status at baseline and as clinically indicated. Recommended AE Monitoring: Monitor for signs/symptoms of diarrhea, dehydration, hand-foot syndrome, new or worsening serious skin reactions (eg, Yee-Fredy syndrome, toxic epidermal necrolysis), stomatitis, hepatotoxicity, nephrotoxicity, and cardiotoxicity. Promptly evaluate any symptoms suggestive of cardiotoxicity. Consider monitoring ECG in patients on concomitant QT-prolonging medications. Monitor adherence. Assessment: Patient with anal cancer starting concurrent chemo/RT. Plan to start RT 10/18. medication(s) are clinically appropriate PLAN: - Will submit to insurance for prior authorization - Pharmacy will update on progress in this encounter as updates are available. - Patient will be educated by pharmacist once medication is approved. Questions for [facility] may be directed to [phone] option 3. Thank you for the referral, Camron Roque PharmD Oncology Specialty Pharmacist [phone] documented in this encounter [facility] 10-11-2022 Telephone encounter Note Patient called for Mychart help. Provided patient with her mychart activation code. Jennifer Nash RN, MARISEL, ZAHEER Estarda, RN-KRYSTLE, [facility] T[employer] [facility] [phone] [facility] Work Phone: 10-11-2022 Miscellaneous Notes Patient called for Mychart help. Provided patient with her mychart activation code. Jennifer Nash RN, MARISEL, ZAHEER Estrada, RN-KRYSTLE, [facility] [employer] [facility] [phone] documented in this encounter [facility] 10-06-2022 History of Present illness Narrative Patient receiving a CT Simulation for anal cancer Allergies and other pertinent labs reviewed. Creatinine Date Value Ref Range Status 10/03/2022 1.13 (H) 0.50 - 1.10 mg/dL Final Estimated GFR (CKD-EPI) Date Value Ref Range Status 10/03/2022 55 (L) >=60 mL/min/1.73sqm Final Comment: 2020 CKD EPI Equation using Creatinine without Race Comment: Estimated glomerular filtration rate (eGFR) is calculated without a race coefficient. Values should be interpreted in the context of the patient's full clinical presentation. Reference: 1. Sanford C, Bijan M, Jazmyne DC, et al.. A Unifying Approach for GFR Estimation: Recommendations of the NKF-ASN Task Force on Reassessing the Inclusion of Race in Diagnosing Kidney Disease. [place] Journal of Kidney Diseases 202;79(2):268-88.e1. 2. N Engl J Med 1 Vol. 385 Issue 19 Pages 3722-8320 Patient educated on side effects. Patient taken to CT, placed in position by radiation therapist. Once in position, IV flushed with 10 mL NS then hooked up to IV #22 in left forearm contrast. Patient was assessed for a reaction after contrast administered. CT Simulation completed, IV was flushed with 10 mL NS. Pt tolerated procedure well. No reaction. All questions and concerns addressed about chemoradiation. She is aware that someone from Dr Smith team will be contacting her about chemotherapy schedule. Pt aware to push oral hydration for the next 24 hrs. documented in this encounter [facility] 10-03-2022 Evaluation note Diagnosis Anal squamous cell carcinoma (HCC)- Primary Malignant neoplasm of anus, unspecified site Body mass index (BMI) 20.0-20.9, adult documented in this encounter [id number] History of Present illness Narrative* Leticia Holden RN - 10/03/2022 12:57 PM EDT Amber Maldonado presents for oncology nurse visit Patient was identified by name and date of . Patient at risk for falls: No Falls Risk protocol implemented: No Has the patient started any medications, over the counter medications or herbal medications? No Blood drawn from Peripheral venipuncture RAC Complications: None. Leticia Holden RN documented in this [id number] History of Present illness Narrative* Lara Smith MD - 10/03/2022 10:05 AM EDT Referral: Yoselin Padron MD [address] [place] [address] PCP: No primary care provider on file. CC: invasive SCCa anal verge H/o AIN III s/p laser + topical therapy 2017 OSH HPI: 61 year old female presented with perianal mass to [facility] July 2021 07/19/2021 biopsies EUA Perianal, Left Anal Verge WELL-DIFFERENTIATED SQUAMOUS CELL CARCINOMA LIKELY INVASIVE in a background of high-grade anal intraepithelial neoplasia/CARCINOMA IN SITU (AIN3/CIS, see immunohistochemistry result). B. Perianal, Right Anal Verge At least high-grade anal intraepithelial neoplasia/CARCINOMA IN SITU (AIN3/CIS), invasion cannot betotally excluded. C. Perianal, Left Lateral WELL-DIFFERENTIATED SQUAMOUS CELL CARCINOMA LIKELY INVASIVE in a background of high-grade anal intraepithelial neoplasia/CARCINOMA IN SITU (AIN3/CIS). D. Perianal, Left Posterior WELL-DIFFERENTIATED SQUAMOUS CELL CARCINOMA LIKELY INVASIVE in a background of high-grade anal intraepithelial neoplasia/CARCINOMA IN SITU (AIN3/CIS). E. Perianal, Right lateral At least high-grade anal intraepithelial neoplasia/CARCINOMA IN SITU (AIN3/CIS), invasion cannot betotally excluded. No imaging for 5 years 08/28/22 anal verge biopsies Left posterior and lateral WELL-DIFFERENTIATED SQUAMOUS CELL CARCINOMA WITH MINUTE FOCAL SUPERFICIAL INVASION. 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 CT 10/03/22 scheduled this afternoon SHe presents today for assessment after a consultation with radiation oncology this am. Has no new physical concerns. Lives ~ [place] away but has to travel here for insurance reasons No change in BM:~ bid with slight bleeding with large BM. No new pain at site of disease. . No cough, SOB, or RODRIGUEZ above baseline - current smoker. Feels well. Allergies: Lactase, Molds & smuts, and Pollen extract PMH: Past Medical History: Diagnosis Date Anxiety Depression with anxiety 08/25/2022 Diverticulitis of large intestine with abscess without bleeding 08/17/2016 Heavy tobacco smoker >10 cigarettes per day 08/17/2016 Perianal mass 07/15/2021 Added automatically from request for surgery [id number] Vitamin D deficiency 12/19/2011 Treatment of excessive growth as child with hormones until menstrual periods started to stop growth Medication: Current Outpatient Medications Medication Sig Dispense Refill loratadine (CLARITIN) 10 MG tablet 1 Tablet. sertraline (ZOLOFT) 50 MG tablet 1 Tablet. ibuprofen (MOTRIN) 400 MG tablet 1 tablet with food or milk as needed No current facility-administered medications for this encounter. FamHx: Review of patient's family history indicates: Problem: Other (DCIS) Relation: Sister Age of Onset: (Not Specified) No malignancy SocHx: Social History Socioeconomic History Marital status: Unknown Tobacco Use Smoking status: Every Day Packs/day: 0.50 Types: Cigarettes Smokeless tobacco: Never Substance and Sexual Activity Alcohol use: Yes Alcohol/week: 4.0 standard drinks of alcohol Types: 4 Glasses of wine per week Drug use: Not Currently Lives with significant other + two dogs Two children both 6'8 ROS: Review of Systems Constitutional: Negative for weight loss. Respiratory: Positive for cough. Smokers cough dry Musculoskeletal: Reports low bone density Arthritis type? Endo/Heme/Allergies: Gestational seizures, resolved Psychiatric/Behavioral: Positive for substance abuse. Daily alcohol ; tobacco abuse; CBD gummies PE: Physical Exam Constitutional: Appearance: Normal appearance. HENT: Head: Normocephalic and atraumatic. Nose: No congestion or rhinorrhea. Eyes: General: No scleral icterus. Extraocular Movements: Extraocular movements intact. Conjunctiva/sclera: Conjunctivae normal. Pulmonary: Effort: Pulmonary effort is normal. No respiratory distress. Breath sounds: No wheezing. Abdominal: Comments: Arcelia anal skin with pink plaque, irregular shaped several centimeters Musculoskeletal: General: Normal range of motion. Cervical back: Normal range of motion. Comments: Enlarged joints hands Skin: General: Skin is warm. Coloration: Skin is not jaundiced. Findings: No rash. Neurological: General: No focal deficit present. Mental Status: She is alert and oriented to person, place, and time. Cranial Nerves: No cranial nerve deficit. Coordination: Coordination normal. Gait: Gait normal. Psychiatric: Behavior: Behavior normal. There were no vitals taken for this visit. Weight: Wt Readings from Last 10 Encounters: 10/03/22 153 lb 6.4 oz (69.6 kg) 08/28/22 160 lb (72.6 kg) 08/25/22 160 lb (72.6 kg) 07/25/22 157 lb 9.6 oz (71.5 kg) 07/19/21 151 lb (68.5 kg) 07/15/21 151 lb (68.5 kg) Attends: with significant other Investigations: CBC (last 3 years, up to 5 values) None Basic Metabolic Panel None all current data reviewed. Assessment: ECOG PS 0 EToH, tobacco abuse Insurance difficulties Likely invasive SCCa anal verge on biopsy last year 2021 H/o AIN III s/p laser + topical therapy 2017 OSH Now 08/28/22 anal verge biopsies Left posterior and lateral WELL-DIFFERENTIATED SQUAMOUS CELL CARCINOMA WITH MINUTE FOCAL SUPERFICIAL INVASION Tumor Board recommended cape + mitomycin + radiation therapy Discussed her situation. Explained therapy is curative in nature. Specifically we discussed the risk, benefits, and alternatives to treatment with capecitabine with mitomycin during radiation, which include, but are not limited to, myelosuppression potentially requiring blood transfusions for anemia, low platelets which could lead to bleeding and transfusion, low wbc increasing risk for infection; diarrhea; mucositis; 30% risk alopecia; voggke-pyijabv-rajzerzxtrxzpbwltb; rare neurologic changes; nausea and vomiting; anorexia and dysguesia; dermatitis and dry skin; cardiac problems including CAD vasospasm and chest pain; hepatic and renal dysfunction; and rarely treatment- related . Not being treated with anti-cancer therapy is an option. The majority of the diarrhea is related to radiation and can be controlled with imodium; fatigue isvery common. Had current questions answered to the best of my ability and agrees to proceed with the plan. Plan/orders: Cape + mitomycin consent and teaching CT scan today Labs today See social work today Follow-up on radiation start date - will order anti-emetic at that time Continue with other providers and medications as prescribed Call with any questions or concerns. F/u prn Lara Smith MD documented in this [id number] History of Present illness Narrative* Jana Veloz, RN - 10/03/2022 10:00 AM EDT RADIATION ONCOLOGY NURSING ASSESSMENT COMMENTS: Patient in to see Dr. Ramos for consultation for treatment of anal cancer. Radiation patient packet given to patient and information inside discussed with patient. All questions answered. ADL's:self care AMBULATION/MOBILITY: independent MOTOSENSORY: intact NUTRITION: Appetite fair to good CIRCULATORY: no problems RESPIRATORY: no problem ELIMINATION: mushy to liquid stools 1-2 times a day SKIN INTEGRITY:no problem SLEEP/REST: recent altertion in sleep pattern d/t stress PAIN: 06/16 anal pain. Co itching and burning-using Lidocaine 1-2 times a day to anus EMOTIONAL/MENTAL: Appropriate coping SURGICAL/OTHER DISEASE HISTORY: 08/28/22 anal bx Past Medical History: Diagnosis Date Anxiety Depression with anxiety 08/25/2022 Diverticulitis of large intestine with abscess without bleeding 08/17/2016 Heavy tobacco smoker >10 cigarettes per day 08/17/2016 Perianal mass 07/15/2021 Added automatically from request for surgery [id number] Vitamin D deficiency 12/19/2011 Review of patient's past surgical history indicates: COLECTOMY open, for diverticulitis EUA, RECTAL (07/19/2021) Procedure: EUA, anal mass biopsies; Surgeon: Yoselin Padron MD; Location: PERIOPERATIVE SERVICES; Service: General BIOPSY, RECTAL (08/28/2022) Procedure: BIOPSY, RECTAL, ANAL MASS BIOPSY; Surgeon: Yoselin Padron MD; Location: PERIOPERATIVE SERVICES; Service: General CHEMOTHERAPY DRUGS: 5FU cream 2016 PREVIOUS RADIATION THERAPY: Denies [employer] HISTORY: Onset of menopause 14-15 years ago CURRENT MEDICATIONS : Current Outpatient Medications on File Prior to Visit Medication Sig Dispense Refill ibuprofen (Ibuprofen 100 Gordon Strength) 100 MG chewable tablet Ibuprofen Active cetirizine (ZyrTEC) 10 MG tablet Cetirizine (Zyrtec) 10 mg Tablet Active 10 MG PO Daily October 26, 2021 12:00am hydrOXYzine pamoate (VISTARIL) 25 MG capsule Take by mouth. naproxen (NAPROSYN) 500 MG tablet Take by mouth every 12 hours. sertraline (ZOLOFT) 100 MG tablet Sertraline (Zoloft) 100 mg Tablet Active 100 MG PO Daily October 26, 2021 12:00am docusate sodium (COLACE) 100 MG capsule Take 1 Capsule by mouth 2 times daily. 60 Capsule 3 senna (SENOKOT) 8.6 MG tablet Take 1 Tablet by mouth daily as needed for Constipation. 30 Tablet 0 lidocaine (XYLOCAINE) 5 % ointment Apply topically 2 times daily as needed. Apply thick amount to affected area. 30 g 1 sertraline (ZOLOFT) 50 MG tablet 1 Tablet. ibuprofen (MOTRIN) 400 MG tablet 1 tablet with food or milk as needed No current facility-administered medications on file prior to visit. ALLERGIES: Allergies Allergen Reactions Lactase Diarrhea Molds & Smuts Pollen Extract Eye watering, headaches Eye watering, headaches FAMILY HISTORY: Family History Problem Relation Age of Onset Other (DCIS) Sister LIVING ARRANGEMENTS: lives with fiance Pt here to discuss radiation therapy for her anal cancer. Denies pacemaker/icd. Seeing Dr Smith today. Written and verbal information provided. All questions and concerns addressed by Dr Ramos. Plan isconcurrent chemoradiation. Jana Veloz, RN * Milagro Chavira MTA - 10/03/2022 9:33 AM EDT Patient was identified by name and date of . ABDI Coello Body Mass Index is 20.80. Body Surface Area is 1.90 square meters according to the formula of Maggy and Maggy. Patient at risk for falls:No Falls Risk protocol implemented: No Blood pressure 136/79, pulse 70, temperature 98.4 F (36.9 C), temperature source Oral, resp. rate 14, height 6' (1.829 m), weight 153 lb 6.4 oz (69.6 kg), SpO2 97 %. ABDI Coello * Mitra Ramos MD, PhD - 10/03/2022 9:00 AM EDT Images from the original note were not included. Requesting Physician: Dr. Yoselin Padron CURRENT COMPLAINT: squamous cell carcinoma of arcelia-anal skin and anal canal HPI: I was asked by Dr. 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 She has a several year history of being treated with topical 5 FU cream for perianal condylomas, with incomplete response. Due to persistent disease she underwent biopsies of the perianal skin by Dr. Padron in July, with biopsy showing focal suspicion for invasion. She has developed palpable disease extending up the posterior wall of the anal canal. The patient returned for biopsies of month later, to sample that area, and these also show well- differentiated squamous cell carcinoma with foci positive for invasion. The patient's case was discussed at the [facility] multidisciplinary GI tumor board, with the recommendation of concurrent chemoradiation. There has been no imaging, with a CT of the chest abdomen and pelvisto be done later today, at the [facility] in [place]. The patient has been seen by Dr. Smith from Hematology/Oncology. She does not yet have a port. She has been evaluated by Gynecology, and there was no vaginal involvement. She notes no rectal bleeding apart from a times when she experiences constipation. No obstructive symptoms. Past Medical History: Diagnosis Date Anxiety Depression with anxiety 08/25/2022 Diverticulitis of large intestine with abscess without bleeding 08/17/2016 Heavy tobacco smoker >10 cigarettes per day 08/17/2016 Perianal mass 07/15/2021 Added automatically from request for surgery [id number] Vitamin D deficiency 12/19/2011 Past Surgical History: Procedure Laterality Date BIOPSY, RECTAL N/A 08/28/2022 Procedure: BIOPSY, RECTAL, ANAL MASS BIOPSY; Surgeon: Yoselin Padron MD; Location: PERIOPERATIVE SERVICES; Service: General COLECTOMY open, for diverticulitis EUA, RECTAL N/A 07/19/2021 Procedure: EUA, anal mass biopsies; Surgeon: Yoselin Padron MD; Location: PERIOPERATIVE SERVICES; Service: General ALLERGIES: No Known Allergies MEDICATIONS: Current Outpatient Medications Medication Sig Dispense Refill docusate sodium (COLACE) 100 MG capsule Take 1 Capsule by mouth 2 times daily. 60 Capsule 3 senna (SENOKOT) 8.6 MG tablet Take 1 Tablet by mouth daily as needed for Constipation. 30 Tablet 0 lidocaine (XYLOCAINE) 5 % ointment Apply topically 2 times daily as needed. Apply thick amount to affected area. 30 g 1 sertraline (ZOLOFT) 50 MG tablet 1 Tablet. ibuprofen (MOTRIN) 400 MG tablet 1 tablet with food or milk as needed No current facility-administered medications for this visit. Social History Tobacco Use Smoking Status Every Day Packs/day: 0.50 Types: Cigarettes Smokeless Tobacco Never Social History Substance and Sexual Activity Alcohol Use Yes Alcohol/week: 4.0 standard drinks of alcohol Types: 4 Glasses of wine per week Social History Socioeconomic History Marital status: Unknown Tobacco Use Smoking status: Every Day Packs/day: 0.50 Types: Cigarettes Smokeless tobacco: Never Substance and Sexual Activity Alcohol use: Yes Alcohol/week: 4.0 standard drinks of alcohol Types: 4 Glasses of wine per week Drug use: Not Currently Family History Problem Relation Age of Onset Other (DCIS) Sister Review Of Systems: CONSTITUTIONAL: No weight loss or loss of appetite. HEENT: Negative RESPIRATORY: No dyspnea, cough, or wheezing apart from that associated with seasonal CARDIOVASCULAR: Negative, denies cardiac history. GASTROINTESTINAL: Negative GENITOURINARY: Negative, no hematuria or other MUSCULOSKELETAL: Denies skeletal pain. INTEGUMENT: Negative HEMATOLOGIC/LYMPHATIC: Negative NEUROLOGICAL: Negative A 10-point review of systems has been conducted and pertinent positives have been recorded. All other review of systems are negative. Labs: Labs to be drawn today, along with CT chest abdomen and pelvis. Radiology: CT C/A/P pending, due 10/03/22.... CT ABDOMEN W AND CT PELVIS W CONTRAST IV only 08/17/16 Order: [id number] Narrative PROCEDURE: CT SCAN OF ABDOMEN AND PELVIS WITH CONTRAST HISTORY: Lower abdominal pain and back pain. COMPARISON: None. CONTRAST: 80 ml of Omnipaque 350. FINDINGS: There is an extraluminal multiloculated structure seen to the left lateral aspect of the middle third of the sigmoid colon in the left hemipelvis. This entire process measures 4.3 cm x 3.4 cm x 5.1 cm in size and is associated with multiple fluid-filled and loculations. The largest of fluid loculation measures about 2.1 cm in diameter. This process isseen adjacent to a segment of the colon which shows severe eccentric wall thickening towards the lateral aspect. There are multiple diverticuli seen in the segment of the colon which shows a mild diffuse wall thickening along the entire length of the sigmoid colon. These findings are suspicious for a contained perforated diverticulitis with multiloculated diverticular abscess formation. There is no free air in the pelvis or the upper abdomen. There is no free fluid in the peritoneal cavity. The rest of the colon is unremarkable. There are postsurgical changes adjacent to cecum. Liver, gallbladder, pancreas, spleen, both kidneys and both adrenal glands are unremarkable. There is no free fluid in the upper abdomen. There is no free air in the peritoneal cavity. There is no paraaortic lymphadenopathy. The abdominal aorta is unremarkable. The urinary bladder is unremarkable. There is no free fluid in the pelvis. There is no pelvic lymphadenopathy. There are mild chronic atelectatic changes in the right posterior lung base. The lung bases are otherwise clear. There are no pleural effusions. IMPRESSION: The above findings are suspicious for a contained perforated diverticulitis of the sigmoid colon with a multiloculated diverticular abscess adjacent to the sigmoid colon. There is no free air in the pelvis the upper abdomen. There is no free fluid in the peritoneal cavity. FlasmaharPint Please Users: Please note all Radiology and Diagnostic Imaging results are subject to interpretation according toyour specific medical history and condition. The results in this report should be reviewed with your ordering or primary care physician as appropriate. Exam End: 08/17/16 16:52 Specimen Collected: 08/17/16 17:14 Last Resulted: 08/17/16 17:23 Received From: [facility] Result Received: 06/14/22 14:02 Pathology: Case Report Surgical Pathology Report Case: [id number] Authorizing Provider: Yoselin Padron MD Collected: 08/28/2022 1324 Ordering Location: [facility] OR Received: 08/29/2022 0951 Pathologist: Francoise Mcallister MD Specimens: A) - Rectal, Left Posterior anal verge B) - Rectal, Right Posterior anal margin C) - Rectal, Posterior midline D) - Rectal, Right lateral anal margin E) - Rectal, Left lateral anal margin F) - Rectal, Posterior midline anal verge G) - Rectal, Right Posterior Lateral Final Diagnosis A. Rectal, Left Posterior anal verge WELL-DIFFERENTIATED SQUAMOUS CELL CARCINOMA WITH MINUTE FOCAL SUPERFICIAL INVASION. B. 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 C. 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 D. 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 E. Rectal, Left lateral anal margin WELL-DIFFERENTIATED SQUAMOUS CELL CARCINOMA WITH MINUTE FOCAL FEATURES FAVORING INVASION. F. 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 G. 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 Case Report Surgical Pathology Report Case: [id number] Authorizing Provider: Yoselin Padron MD Collected: 07/19/2021 1112 Ordering Location: [facility] Main OR Received: 07/20/2021 1003 Pathologist: Georgina Carter MD Specimens: A) - Perianal, Left Anal Vert B) - Perianal, Right Anal Vert C) - Perianal, Left Lateral D) - Perianal, Left Posterior E) - Perianal, Right lateral Final Diagnosis A. Perianal, Left Anal Verge WELL-DIFFERENTIATED SQUAMOUS CELL CARCINOMA LIKELY INVASIVE in a background of high-grade anal intraepithelial neoplasia/CARCINOMA IN SITU (AIN3/CIS, see immunohistochemistry result). B. Perianal, Right Anal Verge At least high-grade anal intraepithelial neoplasia/CARCINOMA IN SITU (AIN3/CIS), invasion cannot betotally excluded. C. Perianal, Left Lateral WELL-DIFFERENTIATED SQUAMOUS CELL CARCINOMA LIKELY INVASIVE in a background of high-grade anal intraepithelial neoplasia/CARCINOMA IN SITU (AIN3/CIS). D. Perianal, Left Posterior WELL-DIFFERENTIATED SQUAMOUS CELL CARCINOMA LIKELY INVASIVE in a background of high-grade anal intraepithelial neoplasia/CARCINOMA IN SITU (AIN3/CIS). E. Perianal, Right lateral At least high-grade anal intraepithelial neoplasia/CARCINOMA IN SITU (AIN3/CIS), invasion cannot betotally excluded. . Physical Exam: Vitals: 10/03/22 0932 BP: 136/79 Pulse: 70 Resp: 14 Temp: 98.4 F (36.9 C) SpO2: 97% ECOG PS: 0 GENERAL: NAD, appears stated age. Alert and oriented HEENT: PERRLA, EOMI. Oral cavity WNL, no visible lesion, normal palate elevation. No trismus. NECK: No palpable cervical or supraclavicular adenopathy. No axillary adenopathy. RESPIRATORY/LUNGS: Clear to auscultation. No wheezing or rales. CARDIOVASCULAR/HEART: Regular rate and rhythm. No audible murmur. ABDOMEN/GASTROINTESTINAL: Soft, nontender, nondistended, normal bowel sounds. No palpable organomegaly. Well-healed midline surgical scar from prior surgery related to diverticulosis. No palpable inguinal adenopathy. EXTREMETIES: No cyanosis, clubbing, or edema. NEUROLOGICAL: No focal deficit. Romberg negative, normal gait. RECTAL: Extensive involvement of the perianal skin, primarily posterior to the anus and extending up to the coccyx, roughly 5cm extension from anal verge. The skin lesion was mobile, and did not appear to be deeply invasive. There is palpable extension in the anal canal, along the posterior anal canal extending 2 cm up. The mass was relatively soft, no extension into rectum. No vaginal involvement, confirmed by [employer]. cT3N0, CT pending later today. Pelvic exam deferred, no involvement per [employer] evaluation. 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 The patient has progressed through prior treatment with topical cream. The case was discussed at tumor board with the recommendation of concurrent chemoradiation, presumably mitomycin and 5 FU with radiotherapy. We would anticipate a dose of 54 Gy over 6 weeks, with lesser doses going to elective annie regions. The patient has financial limitations, with a significant co-pay on her diagnostic procedures, so I did not order a PET-CT after discussing this option with the patient. We will await the results of the diagnostic CT being done later today. Risks and benefits of radiotherapy were discussed with the patient in detail, informed consent signed. She is being scheduled to return in the few days for CT simulation, and we will plan to begin concurrently with systemic therapy. Thank you for this consult and allowing us to participate in the care of this patient. [employer] was done with voice recognition, all errors may not have been detected and corrected. documented in this [id number] Telephone encounter Note* Telephone Encounter - Ky Vegas APRN-CNS - 10/02/2022 2:36 PM EDT Ms. Maldonado appreciated to reschedule an appt with Dr. Smith from 10/04 to 10/03. GIRISH Bueno 10/02/2022 2:37 PM Vocab Work Phone: [phone] Miscellaneous Notes* Telephone Encounter - Ky Vegas APRN-CNS - 10/02/2022 2:36 PM EDT Ms. Maldonado appreciated to reschedule an appt with Dr. Smith from 10/04 to 10/03. GIRISH Bueno 10/02/2022 2:37 PM documented in this [id number] History of Present illness Narrative* Lara Smith MD - 09/27/2022 2:18 PM EDT Called patient re: chemoRTx for likely kly stage I anal documented in this [id number] NotePt called requesting update regarding Tumor Board meeting and pt's treatment plan. Please return pt's phone call. Ok to leave detailed message on pt's voicemail. Thanks.The Vocab [id number] Telephone encounter Note* Telephone Encounter - Alejandra Flowers RN - 09/26/2022 2:51 PM EDT Pt called requesting update regarding Tumor Board meeting and pt's treatment plan. Please return pt's phone call. Ok to leave detailed message on pt's voicemail. Thanks. [id number] Miscellaneous Notes* Telephone Encounter - Alejandra Flowers RN - 09/26/2022 2:51 PM EDT Pt called requesting update regarding Tumor Board meeting and pt's treatment plan. Please return pt's phone call. Ok to leave detailed message on pt's voicemail. Thanks. * Telephone Encounter - TimesYoselin MD - 09/08/2022 1:44 PM EDT I spoke to Cheryl about the pathology results. Two of the biopsies show well differentiated squamous call cancer with minute focal features favoring invasion. I am going to present her at tumor board to decide if this should be treated with chemo/xrt or topical 5 -FU. I will call her with those recommendations. Yoselin Padron MD documented in this [id number] Telephone encounter Note* Telephone Encounter - Yoselin Padron MD - 09/08/2022 1:44 PM EDT I spoke to Zain Maldonado about the pathology results. Two of the biopsies show well differentiated squamous call cancer with minute focal features favoring invasion. I am going to present her at tumor board to decide if this should be treated with chemo/xrt or topical 5 -FU. I will call her with those recommendations. Yoselin Padron MD [id number] Miscellaneous Notes* Telephone Encounter - Yoselin Padron MD - 09/08/2022 1:44 PM EDT I spoke to Zain Maldonado about the pathology results. Two of the biopsies show well differentiated squamous call cancer with minute focal features favoring invasion. I am going to present her at tumor board to decide if this should be treated with chemo/xrt or topical 5 -FU. I will call her with those recommendations. Yoselin Padron MD documented in this [id number] Telephone encounter Note* Telephone Encounter - Yoselin Padron MD - 09/06/2022 2:51 PM EDT Attempted to reach Ms. Maldonado to give her the path results from her surgery on 08/28/2022 but her voicemail is full. Yoselin Padron MD [id number] Miscellaneous Notes* Telephone Encounter - Yoselin Padron MD - 09/06/2022 2:51 PM EDT Attempted to reach Ms. Maldonado to give her the path results from her surgery on 08/28/2022 but her voicemail is full. Yoselin Padron MD documented in this [id number] Hospital Discharge instructions Follow Up Care 05/19/2022 10:32:22 With:Nahum Jones Address: [facility] [address] [place] [phone] Fax Business (1) When: Unknown Comments:mri rectum/pelvis at [facility]. pet/ct at [facility]. f/u with Dr. España and me same day after this MRI and PET/CT. [facility]08-27-2022 Progress note Author Penelope Ewing [facility] December 03, 2021 1:07pm Note Date/Time December 02, 2021 2: 41pm [facility] at [address] [address] Hem/Onc Follow Up Note - OP Signed Patient: Amber Maldonado MR#: [id number] : 1960 Acct:[id number] Age/Sex: 61 / F Type: REG RCR Copies to: MD Lizbeth Wyman DNP Times, Melissa~ Subjective Date/Time of Service: Date of Service: 12/02/2021 Time of Service: 14:40 Chief Complaint: Patient is here today for one month follow up visit for recurrent anal squamous cell carcinoma and saw surgeon at and here to discuss HPI: 12/02/2021: Amber was seen by Dr. Murphy yesterday at with review of imaging and exam. She recommends EUA/HRA (exam under anesthesia/high resolutionanoscopy) following pelvic MRI which the patient may obtain locally. She is planning local excision of unilateral involvement of perianal condyloma with at least HGSIL/possible invasive SqCC then will reschedule for surgical excision ofthe opposite side. If suspected sphincter involvement by MRI or anoscopy, the patient may be referred back for chemoradiation. She will return for followup about 6 weeks to review pathology and surgical recovery. Moderate complexity 35minutes for coordination of care. 11/03/2021: This is a telephone encounter follow-up to review recommendations from GI tumor board at [facility]. Patient was originally to be referred to Dr. Alcides Zuniga for surgical evaluation but recommendation was tosend to Dr. Gracy Murphy for evaluation and office anoscopy. Holding PET/CTat this time. Evaluate for potential wide local excision if anal canal is not involved. May be eligible for clinical trial. [facility] [place] [facility]. Radiation oncology Dr. Espñaa was updated to this plan as well as the patient by phone today. After evaluation by Dr. Murphy, if planis for chemoradiation, we may reschedule her staging PET/CT. This is a moderatecomplexity 20-minute phone visit to review results of tumor board and coordinatecare for surgical evaluation. ORIGINAL CONSULT 10/26/2021: This is a 60-year-old lady who presents referred from [facility] for diagnosis of recurrent anal carcinoma. 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 She was referred to Dr. Desean Peng at [facility] and we are requesting original records for pathology and her treatment plan at that time. She reports that she was given topical chemotherapy cream for 6 months and then had laser treatments with resolution of symptoms. She has never had a positive HIV and is never had an abnormal Pap smear. She has not had a Pap or pelvic examination for the last 8 years. Last menstrual period was at age 53 and she had natural menopause with all organs intact. She has not recently been tested for HIV, but has never beendocumented to have infection. About 4 months ago she noted some irregularity when wiping over her buttock. She reports that she was in the process of moving at that time and delayed care. She was referred to Dr. Livingston of dermatology who biopsied the area of concern demonstrating at least squamous cell carcinoma in situ. She then referred the patient to [facility] for anoscopy. Patient has noted some intermittent brightred blood per rectum over stools and also when she is cleaning the area. She does not have any significant diarrhea or other changes in stools and denies anysignificant pain. She does have a remote history of genital warts and has not received the HPV vaccine. Anal exam at [facility] reported involvement of anal verge, but no anoscopy was reported. DIAGNOSIS: 1. Initial diagnosis of squamous cell carcinoma in situ around 2015 ([facility]). Obtaining original records. 2. 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 Left anal verge: Well-differentiated squamous cell carcinoma, likely invasive in a background of high-grade anal intraepithelial neoplasia/carcinoma in situ (AIN3/CIS) B. Perianal right anal verge: At least high-grade anal intraepithelial neoplasia/carcinoma in situ (AIN3/CIS), invasion cannot be totally excluded C. Perianal, left lateral: Well-differentiated squamous cell carcinoma likely invasive in a background of high-grade anal intraepithelial neoplasia/carcinoma in situ (AIN3/CIS) D. Perianal, left posterior: Well-differentiated squamous cell carcinoma likelyinvasive in a background of high-grade anal intraepithelial neoplasia/carcinoma in situ (AIN3/CIS) B. Perianal, right lateral: At least high-grade anal intraepithelial neoplasia/carcinoma in situ (AIN3/CIS), invasion cannot be totally excluded - Summary of Therapies Summary of Therapies: 1. 2016 therapy of perianal carcinoma in situ (obtaining original records from [facility]): Topical chemotherapy cream for 6 months and then had lasertreatments with resolution of symptoms 2. Discussion of treatment options for recurrent perianal skin cancer/involvement of anal verge. Referred to Dr. Gracy Cardona at [facility] who requests MRI of pelvis prior to planned surgical excision of perianal condyloma with HGSIL ROS Details: All systems reviewed & no additional complaints except as documented Subjective/ROS - Narrative: No change in review of systems from original consult 10/26/2021 CONSTITUTIONAL: Negative for fatigue, negative for fever or night sweats. 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 HEAD AND NECK: Negative for changes in hearing and vision. Negative for mouth ulcers, nasal congestion and nasal drainage. PULMONARY: Negative for chest pain, cough and dyspnea. CARDIOVASCULAR: Negative for claudication and irregular heartbeat/palpitations. GASTROINTESTINAL: Negative for abdominal pain, constipation, decreased appetite,nausea, or vomiting. Intermittent bright red blood per rectum and loose stools,but no significant diarrhea. No pain with defecation GENITOURINARY: Negative for dysuria and hematuria. No history of prior HIV or known HPV related cancer (although had a reported history of genital warts). Postmenopausal with all organs intact. ENDOCRINE: Negative for cold intolerance and heat intolerance. CENTRAL NERVOUS SYSTEM: Negative for gait disturbance and headache. PSYCHIATRIC: Positive for anxiety disorder not Zoloft. No history of depression. DERMATOLOGICAL: Positive for 4-month history of perianal plaque lesion as per HPI, now 6 x 6 cm. Negative for pruritus and rash. No other signs of skin malignancy. MUSCULOSKELETAL: Negative for back pain and bone/joint symptoms. HEMATOLOGICAL: Negative for bleeding and easy bruising. Negative for history of transfusion or thromboembolic disease ALLERGY: Positive for environmental allergies on chronic Claritin. Denies medication or food allergies. PMFSH - History Attestation statement: The following information was validated with the patient. Source: Old Records Reviewed - Medical History Medical History: Medical History (Last Reviewed 12/03/21 @ 12:50 by Penelope Ewing MD) Anxiety - Surgical History Surgical History: Surgical History (Last Reviewed 12/03/21 @ 12:50 by Penelope Ewing MD) History of colectomy - Family History Family History: Family History (Last Reviewed 12/03/21 @ 12:50 by Penelope Ewing MD) Other No significant family history - Social History Smoking Status: Current every day smoker Tobacco Type: cigarettes Substance Use Type: None Home Medications & Allergies Allergies No Known Allergies Allergy (Verified 12/02/21 14:32) Home Medications cetirizine 10 mg tablet (Zyrtec) 10 mg PO DAILY 10/26/21 [History Confirmed 12/02/21] sertraline 100 mg tablet (Zoloft) 100 mg PO DAILY 10/26/21 [History Confirmed 12/02/21] Objective - Height/Weight Height/Weight: Height 6 ft Weight 68.039 kg - Vital Signs Vital Signs: 12/02/21 14:32 Temperature 97.8 F Pulse Rate [Left Brachial] 69 Respiratory Rate 16 Blood Pressure [Left Arm] 142/80 H 02 Sat by Pulse Oximetry 94 L Oxygen Delivery Method Room Air Physical Exam Narrative: CONSTITUTIONAL: The patient is in no acute distress. HEAD / FACE: Normocephalic. EYES: Pupils are equal and reactive to light. Conjunctivae and lids are benign in appearance. Ocular movement intact. EARS: Hearing grossly intact. -- Perianal exam showed pink macerated plaque with undulating borders 6 x 6 cm over the bilateral buttocks--less indurated than prior exam. Small area of nodularity on the left approximately 2 cm from the anal verge. No palpable inguinal adenopathy. Limited perianal exam, otherwise see exam from consult below on 10/26/2021: NOSE / MOUTH / THROAT: Nose, mouth, tongue and oropharynx are benign in appearance. No signs of inflammation. NECK / THYROID: Neck is supple. Thyroid is symmetrical, without thyromegaly, masses or palpable nodules. LYMPHATIC: No palpable cervical, supraclavicular, axillary, or inguinal adenopathy. RESPIRATORY: Normal to inspection. Lungs clear to auscultation and percussion. No wheezing, rales, rhonchi or rubs. Normal effort. CARDIOVASCULAR: Regular rate and rhythm. No murmurs, gallops, or rubs. VASCULAR: Carotid, radial, femoral and pedal pulses present bilaterally. No bruits. ABDOMEN: Bowel sounds normoactive. Soft, nontender and non-distended. No hepatosplenomegaly. No masses. -- Rectal exam with irregularity of anal ridge but no obvious mass lesion palpable. Radiation oncology performed vaginal/cervical exam with no obvious lesions or irregularities. GENITOURINARY: No CVA tenderness. No suprapubic fullness or tenderness. No groinadenopathy. No evidence of hernias. INTEGUMENTARY: The skin is remarkable for perianal plaque noted above but no other skin lesions. No rashes. No suspicious lesions BACK / SPINE: The back is nontender. MUSCULOSKELETAL: Normal musculature, no joint deformities or abnormalities, normal range of motion for all four extremities. EXTREMITIES: No edema, cyanosis or clubbing. No Nicolasa sign. NEUROLOGICAL: Alert and oriented. Cranial nerves intact. No gross motor or sensory deficits. PSYCHIATRIC: No anxiety or evidence of depression. - ECOG Performance Status ECOG Score: 0 Results - Labs Labs: CMP ordered prior to MRI for contrast - Impressions MRI pelvis with contrast ordered today and will be sent to Dr. Murphy for review. 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 This was treated in about 2015 with topical chemotherapy (presumed 5-FU) for about 6 months followedby laser treatment to the perianal skin. She was in complete remission for the past 6 years but 4 months ago noted recurrent plaque lesion over bilateral buttocks. She was moving at the time but was able to see Dr. Livingston of dermatology with biopsy confirming squamous cell carcinoma. She was referred for anoscopy at [facility] and on pathology review she was diagnosed with invasive carcinoma in the setting of AIN 3/BRAULIO on multiple biopsies. On 10/26/2021, she presented for evaluation with medical oncology and radiation oncology to discuss optimal therapy. I sent HIV (not performed) and presented her case in GI oncology tumor board. I am also sending her for [employer] evaluation to update her Pap smear given prior history of general warts and recurrent anal cancer. I reviewed prior records from [facility] to determine prior treatment and initial diagnosis. The patient was counseled regarding options of concurrent chemoradiation but [facility] GI tumor board recommended evaluation by Dr. Gracy Murphy. She saw Dr. Murphy yesterday with recommendation for pelvic MRI with contrast (ordered today) and evaluation underanesthesia with high resolution anoscopy. Holding PET/CT at this time. Evaluate for potential wide local excision (unilateral x 2 separate procedures) if anal canal is not involved. If anal canal involved by anoscopy, she may return for concurrent chemoradiation. Next f/u with me in 6 weeks to review pathology after surgical excision. The patient expressed understanding over this moderate complexity 35 minute visit for history and exam, review of outside records, and coordination of care with Dr. Murphy. (2) Coordination of complex care We discussed patient in [facility] to her tumor board as noted above. Follow-up after pelvic MRI which will be forwarded to Dr. Murphy for plannedsurgery if no anal canal involvement. - Time with Patient Time Spent with Patient (Follow Up Visit): 35 minutes - Coordination of care with Dr. Murphy for planned surgical excision Coordination of Care & Counseling Time: Greater than 50% of time spent with patient was for coordination of care (as documented) and [id number] counseling of patient and/or family. Dictated By: Penelope Ewing MD DD/ [id number] Signed By: <Electronically signed by MD Penelope Ewing> 12/03/21 [address] [facility] Work Phone: [phone] 309-452707-27-2022 Sam MALDONADO was presented at GI/Esophagus Tumor Board Conference Conference date: 02-Nov-2021 Presenting Provider(s): Dr. Penelope Ewing Referring provider(s): (Self) Presenting location(s): [facility] Conference Review Type: Treatment Planning Impression Review imaging. High grade squamous of perianal skin. No evidence of invasive ca and treated with topical chemo for 6mos and then laser treatments with resolution of symptoms. Has not had any [employer] eval for approx 8 years. Recent biopsy path report read (suspicious for but not diagnostic of invasion) - outside imaging not available. Poss recurrent dysplasia/ condyloma Primary site: Perianal skin Histology: Squamous cell ca GI/Esophagus/Rectal histology: Squamous Cell CA National Guidelines discussed: yes Recommendations Recommendations Clinical Trial (may be eligible) Surgery (consider wide local resection) Referrals Surgery (Colorectal) Other recommendations: At the very least in office anoscopy if not done already. May be eligible for clinical trial. Referral to colorectal surgery. Obtain outside path from [facility] [place]. Consider wide local resection. Disclaimer SCC tumor board recommendations represent the consensus opinion of physicians present at a weekly patient care conference. The treating SCC physician is not always present, and many of the physicians formulating the recommendation have not personally seen or examined the patient under discussion. It is understood that the treating [facility] physician considers the expertise of the Tumor Board Recommendation in formulating his/her plan for the patient. However, in many situations, based on individualized patient considerations, a different plan is determined by the treating physician to be the optimal medical management. Electronic Signatures: Lisa Saleh (COOR) (Signed 03-Nov-2021 20:18) Authored: Impression, Recommendations, Note, Disclaimer Last Updated: 03-Nov-2021 20:18 by Lisa Saleh (COOR)[facility]07-20-2022 Consult note Author Penelope Ewing [facility] October 26, 2021 12:16pm Note Date/Time October 26, 2021 8:21 am [facility] [place] [address] Hem/Onc Consult Note - OP Signed Patient: Amber Maldonado MR#: [id number] : 1960 Acct:[id number] Age/Sex: 60 / F Type: REG RCR Copies to: RUBIN Belcher MD Norleena Poynter, MD Times, Melissa~ HPI Date/Time of Service: Date of Service: 10/26/2021 Time of Service: 08:20 Referring Provider/PCP: Referring Provider: Yoselin Padron PCP: Lizbeth Penaloza DNP - History of Present Illness Reason for Consultation: 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 Now has recurrent biopsy-positive perianal carcinoma with involvement of the distal aspect of the anal canal. Requested evaluation for potential radiation therapy plus minus chemotherapy options. Chief Complaint: Patient is here today for a referrral from Dr Yoselin Padron MD for anal mass HPI: Dear Dr. Livingston and RUBIN Penaloza, I had the great pleasure of seeing your patient in consultation. Thank you verymuch for your referral. As you know this is a 60-year-old lady who presents referred from [facility] for diagnosis of recurrent anal carcinoma. 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 She was referred to Dr. Desean Peng at [facility] and we are requesting original records for pathology and her treatment plan at that time. She reports that she was given topical chemotherapy cream for 6 months and then had laser treatments with resolution of symptoms. She has never had a positive HIV and is never had an abnormal Pap smear. She has not had a Pap or pelvic examination for the last 8 years. Last menstrual period was at age 53 and she had natural menopause with all organs intact. She has not recently beentested for HIV, but has never been documented to have infection. About 4 months ago she noted some irregularity when wiping over her buttock. She reports that she was in the process of moving at that time and delayed care. She was referred to Dr. Livingston of dermatology who biopsied the area of concern demonstrating at least squamous cell carcinoma in situ. She then referred the patient to [facility] for anoscopy. Patient has noted some intermittent brightred blood per rectum over stools and also when she is cleaning the area. She does not have any significant diarrhea or other changes in stools and denies anysignificant pain. She does have a remote history of genital warts and has not received the HPV vaccine. Anoscopy was reviewed showing PMFSH - History Attestation statement: The following information was validated with the patient. Source: Old Records Reviewed - Medical History Medical History: Medical History (Last Reviewed 10/26/21 @ 08:43 by Penelope Ewing MD) Anxiety - Surgical History Surgical History: Surgical History (Last Reviewed 10/26/21 @ 08:43 by Penelope Ewing MD) History of colectomy - Family History Family History: Family History (Last Reviewed 10/26/21 @ 08:43 by Penelope Ewing MD) Other No significant family history - Social History Smoking Status: Current every day smoker Tobacco Type: cigarettes Substance Use Type: None Home Medications & Allergies Allergies No Known Allergies Allergy (Verified 10/25/21 16:04) Home Medications cetirizine 10 mg tablet (Zyrtec) 10 mg PO DAILY 10/26/21 [History Confirmed 10/26/21] sertraline 100 mg tablet (Zoloft) 100 mg PO DAILY 10/26/21 [History Confirmed 10/26/21] Subjective Data - Diagnosis DIAGNOSIS: 1. 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 Obtaining original records. 2. 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 Left anal verge: Well-differentiated squamous cell carcinoma, likely invasive in a background of high-grade anal intraepithelial neoplasia/carcinoma in situ (AIN3/CIS) B. Perianal right anal verge: At least high-grade anal intraepithelial neoplasia/carcinoma in situ (AIN3/CIS), invasion cannot be totally excluded C. Perianal, left lateral: Well-differentiated squamous cell carcinoma likely invasive in a background of high-grade anal intraepithelial neoplasia/carcinoma in situ (AIN3/CIS) D. Perianal, left posterior: Well-differentiated squamous cell carcinoma likelyinvasive in a background of high-grade anal intraepithelial neoplasia/carcinoma in situ (AIN3/CIS) B. Perianal, right lateral: At least high-grade anal intraepithelial neoplasia/carcinoma in situ (AIN3/CIS), invasion cannot be totally excluded - Summary of Therapies Summary of Therapies: 1. 2015 therapy of perianal carcinoma in situ (obtaining original records from [facility]): Topical chemotherapy cream for 6 months and then had lasertreatments with resolution of symptoms 2. Discussion of treatment options for recurrent perianal skin cancer/involvement of anal verge. Subjective/ROS - Narrative: CONSTITUTIONAL: Negative for fatigue, negative for fever or night sweats. HEAD AND NECK: Negative for changes in hearing and vision. Negative for mouth ulcers, nasal congestion and nasal drainage. PULMONARY: Negative for chest pain, cough and dyspnea. CARDIOVASCULAR: Negative for claudication and irregular heartbeat/palpitations. GASTROINTESTINAL: Negative for abdominal pain, constipation, decreased appetite,nausea, or vomiting. Intermittent bright red blood per rectum and loose stools,but no significant diarrhea. No pain with defecation GENITOURINARY: Negative for dysuria and hematuria. No history of prior HIV or known HPV related cancer (although had a reported history of genital warts). Postmenopausal with all organs intact. ENDOCRINE: Negative for cold intolerance and heat intolerance. CENTRAL NERVOUS SYSTEM: Negative for gait disturbance and headache. PSYCHIATRIC: Positive for anxiety disorder not Zoloft. No history of depression. DERMATOLOGICAL: Positive for 4-month history of perianal plaque lesion as per HPI, now 6 x 6 cm. Negative for pruritus and rash. No other signs of skin malignancy. MUSCULOSKELETAL: Negative for back pain and bone/joint symptoms. HEMATOLOGICAL: Negative for bleeding and easy bruising. Negative for history of transfusion or thromboembolic disease ALLERGY: Positive for environmental allergies on chronic Claritin. Denies medication or food allergies. ROS Details: All systems reviewed & no additional complaints except as documented Objective - Height/Weight Height/Weight: Weight 66.678 kg - Vital Signs Vital Signs: 10/26/21 08:17 Temperature 97.5 F L Pulse Rate [Left Brachial] 67 Respiratory Rate 16 Blood Pressure [Left Arm] 132/84 02 Sat by Pulse Oximetry 93 L Oxygen Delivery Method Room Air Physical Exam Narrative: CONSTITUTIONAL: The patient is in no acute distress. HEAD / FACE: Normocephalic. EYES: Pupils are equal and reactive to light. Conjunctivae and lids are benign in appearance. Ocular movement intact. EARS: Hearing grossly intact. NOSE / MOUTH / THROAT: Nose, mouth, tongue and oropharynx are benign in appearance. No signs of inflammation. NECK / THYROID: Neck is supple. Thyroid is symmetrical, without thyromegaly, masses or palpable nodules. LYMPHATIC: No palpable cervical, supraclavicular, axillary, or inguinal adenopathy. RESPIRATORY: Normal to inspection. Lungs clear to auscultation and percussion. No wheezing, rales, rhonchi or rubs. Normal effort. CARDIOVASCULAR: Regular rate and rhythm. No murmurs, gallops, or rubs. VASCULAR: Carotid, radial, femoral and pedal pulses present bilaterally. No bruits. ABDOMEN: Bowel sounds normoactive. Soft, nontender and non-distended. No hepatosplenomegaly. No masses. -- Perianal exam showed pink macerated plaque with undulating borders 6 x 6 cm over the bilateral buttocks. Small area of nodularity on the left approximately2 cm from the anal verge. No palpable inguinal adenopathy. -- Rectal exam with irregularity of anal ridge but no obvious mass lesion palpable. Radiation oncology performed vaginal/cervical exam with no obvious lesions or irregularities. GENITOURINARY: No CVA tenderness. No suprapubic fullness or tenderness. No groinadenopathy. No evidence of hernias. INTEGUMENTARY: The skin is remarkable for perianal plaque noted above but no other skin lesions. No rashes. No suspicious lesions BACK / SPINE: The back is nontender. MUSCULOSKELETAL: Normal musculature, no joint deformities or abnormalities, normal range of motion for all four extremities. EXTREMITIES: No edema, cyanosis or clubbing. No Nicolasa sign. NEUROLOGICAL: Alert and oriented. Cranial nerves intact. No gross motor or sensory deficits. PSYCHIATRIC: No anxiety or evidence of depression. - ECOG Performance Status ECOG Score: 0 Results - Labs Labs: No outside laboratories for review. We will order baseline CBC, CMP, and HIV prior to initiation of therapy. - Impressions No outside imaging for review. Discussed with Dr. España who recommended PET/CT for evaluation of distant metastatic disease and potential inguinal adenopathy (nonpalpable by exam) for radiation planning. This was ordered today. Assessment and Plan - TNM Staging Staging: Original diagnosis anal carcinoma in situ (Cross's disease) 6 years ago treated in [place], [place] (records pending) (1) Recurrent anal squamous cell carcinoma This is a 60-year-old lady who recently relocated from [place] who reported a prior history of carcinoma in situ of the perianal skin. This was treated in about 2015 with topical chemotherapy (presumed 5-FU) for about 6 months followedby laser treatment to the perianal skin. She was in complete remission for the past 6 years but 4 months ago noted recurrent Klak lesion over bilateral buttocks. She was moving at the time but was able to see Dr. Livingston of dermatology with biopsy confirming squamous cell carcinoma. She was referred for anoscopy at [facility] and was found to have invasive carcinoma in the setting of AIN 3/BRAULIO on multiple biopsies. Today she presents for evaluation with radiation oncology to discuss optimal therapy. I am sending HIV and sending up PET/CT with plan to discuss in GI oncology tumor board next Sunday. We will determine best approach, likely concurrent chemoradiation after review of PET/CT to exclude metastatic disease. I am also sending her forGYN evaluation to update her Pap smear given prior history of general warts and recurrent anal cancer. I also am requesting prior records from [facility] to determine prior treatment and initial diagnosis. The patient was counseled regarding likely option of concurrent chemoradiation but we will deferchemotherapy counseling until follow-up of her PET/CT and recommendations from [facility] GI tumor board. The patient expressed understanding over this high complexity visit for history and exam, review of outside records, and coordination of care with radiation oncology. I would like to thank you very much for the courtesy of this referral. I will keep you up-to-date with this patient's progress. Should you have any questionsregarding the management of this patient, please do not hesitate to contact me. Sincerely, Penelope Ewing MD, FACP Medical Oncology (2) Coordination of complex care Will discuss patient in [facility] to her tumor board as noted above. Follow-up will be scheduled following her PET/CT and chemotherapy counseling at that time. - Time with Patient Total Time Spent with Patient (Consult): 60 mins or more - 1 hour for review history and exam, additional 30 minutes for review of outside records and pathology, coordination of care with radiation oncology Coordination of Care & Counseling Time: Greater than 50% of time spent with patient was for coordination of care (as documented) and [id number] counseling of patient and/or family. Dictated By: Penelope Ewing MD DD/ 9 Signed By: <Electronically signed by MD Penelope Ewing> 10/26/21 12[address] [facility] Work Phone: [phone]) 844-240907-20-2022 Consult note Author Jun España [facility] October 26, 2021 10:19am Note Date/Time October 25, 2021 2:39 pm [facility] [place] [address] Rad Onc Consult Note - OP Signed Patient: Amber Maldonado MR#: [id number] : 1960 Acct:[id number] Age/Sex: 60 / F Type: REG RCR Copies to: MD Lizbeth Reyes DNP Melissa Times, MD Times, Melissa~ Assessment & Plan (1) Anal cancer Plan: 1. PET scan to complete staging and for radiation planning (can be done with CTSim for radiation planning) 2. [facility] tumor board presentation 4. CT simulation with contrast-planned for delivery of IMRT to the pelvic and inguinal lymph nodes with a boost to the primary tumor. Anticipate delivery of 50-54 Tripp to the primary tumor in approximately 28-30 fractions pending PET findings. Concurrent Chemo-Radiation: Patient's case has been discussed in a multidisciplinary fashion with recommendations for concurrent chemoradiation. Due to the increased complexity of try modality therapy, radiation planning as well as management will require increased time and consideration. Patient's care will also increase in complexity due to the increase in toxicities seen with concurrent treatment during his course. Assessment 60-year-old female presenting with a history of what appears to be AIN, status post topicals and laser therapy now with well differentiated squamous cell of the anus likely invasive with exam showing an 8 x 6 cm tumor with involvement of the anal verge and distal anal canal. Working stage IIb, cT3N0. Her pelvic exam today is negative for vaginal involvement and there is no palpable inguinallymphadenopathy. Based on her history and prior treatment it is reasonable to proceed with definitive management. We discussed the implications of her diagnosis and definitive management with concurrent chemoradiation in an effort to preserve her sphincter function. We will obtain a PET scan to complete her staging as I do not see where any prior imaging has been ordered. Pending PET findings and presuming localized disease I recommend IMRT to the pelvic and inguinal lymph nodes with a boost to the primary anal tumor to 50-54 Tripp. I provided a general overview of radiation treatment planning and delivery. We discussed the need for immobilization and CT simulation. Short and long-term side effects were reviewed in detail and her questions were answered. She was consented to receive care. We did discuss that due to her prior bowel resectionshe is at a higher risk of adhesions and scarring as well as long-term bowel complications. In addition the patient is currently smoking. Patient was counseled regarding the risks of continued smoking during the radiation course. We discussed the increase in both short-term and long-term toxicity and smoking cessation resources were reviewed. She understands that continued smoking can result in severe radiation side effects as well as a reduction in local control of their cancer. Patient met with medical oncology and HIV testing ordered. She is also being evaluated for the STAMP trial per tumor board recommendations. She is also been referred to [facility] for a Pap smear. HPI Date of Service: 10/26/21 HPI: 60-year-old female with a history of anal cancer treated with topical agents and laser therapy in 2016. She now presents with a new lesion. Oncologic history as follows:: July 19, 2021 seen at [facility] and was taken to the OR for biopsy. Per the operative note the lesion encompassed the posterior half of the anus extending out 5 cm from the anal verge. Posteriorly the distal aspect of the anal canal was involved. Lesion was 8 x 6 cm. A pudendal nerve block was utilized. Anoscopy showed the posterior anoderm distal aspect with involvement. Anteriorly the anoderm was normal. Punch biopsies were taken and sent to pathology. Final pathology confirmed well-differentiated squamous cell carcinoma likely invasive in a background of high-grade anal intraepithelial neoplasia/carcinoma in situ Today patient communicates her understanding of her diagnosis. She reports prior colon resection 5 years ago secondary to diverticulosis. Consequently shehas had altered bowel movements since that time which are currently unchanged. She denies any urinary symptoms no vaginal complaints. She denies any pain fromthe anal tumor. [facility] - Medical History Medical History: Medical History (Last Reviewed 10/26/21 @ 08:43 by Penelope Ewing MD) Anxiety - Surgical History Surgical History: Surgical History (Last Reviewed 10/26/21 @ 08:43 by Penelope Ewing MD) History of colectomy - Family History Family History: Family History (Last Reviewed 10/26/21 @ 08:43 by Penelope Ewing MD) Other No significant family history Home Medications & Allergies Allergies No Known Allergies Allergy (Verified 10/25/21 16:04) Home Medications cetirizine 10 mg tablet (Zyrtec) 10 mg PO DAILY 10/26/21 [History Confirmed 10/26/21] sertraline 100 mg tablet (Zoloft) 100 mg PO DAILY 10/26/21 [History Confirmed 10/26/21] Subjective ROS: I reviewed the 12-point Review of Systems with the patient as per our standard questionnaire. Objective Pain: 0/10 Karnofsky Performance Scale: 90%: Can perform normal activity, minor signs of disease Physical Exam: Physical exam General: alert and oriented female in no acute distress HEENT: normocephalic, extra ocular movements intact Lungs: normal work of breathing on room air Abdomen: non acute, midline lower abdominal surgical incision is well-healed. No tenderness to palpation MSK: extremities within normal limits Neuro: grossly intact Lymph: No palpable inguinal lymphadenopathy bilaterally GI: Examination of the perianal area shows tumor extending approximately 6 x 8 cm outside the anal canal. There is clear involvement of the anal verge. Digital rectal exam shows normal sphincter tone with tumor involvement at the very distal aspect of the anal canal. [facility]: Exam shows normal external genitalia. Speculum exam shows vaginal mucosa to be pink and moist without lesion. Unable to visualize the cervix which is within normal limits. Dictated By: Jun España MD DD/ [id number] Signed By: <Electronically signed by Jun España MD> 10/26/21 [address] [facility] Work Phone: [phone] 485-576806-23-2022 Evaluation note* Encounter Date Diagnosis Assessment Notes Treatment Notes Treatment Clinical Notes Sep, Injury (ICD-10 - T14.90XA) Sep, Closed displaced fracture of shaft of fifth metacarpal bone of left hand, initial encounter (ICD-10 - S62.327A) XR images and final report reviewed, oblique fracture noted. Area placed in splint today in office, n/v intact after placement. Encouraged RICE therapy discussed- rest, avoid excessive or strenuous activity, complete activity as tolerated; ice area for 15-20 minutes at a time multiple times a day, ensure thin cloth barrier between skin and ice; Splint wrap area. Advised patient to use rx of Naproxen as needed for discomfort. Patient to follow up with Ortho in 2-3 days. Immediate eval by ER for warning signs/symptoms as discussed including, but not limited to, increased swelling, bruising, fevers, red streaking, numbness/tingling, or if any or new concerning symptoms arise. Parent verbalizes understanding and is agreeable to treatment plan Sep, Dysuria (ICD-10 - R30.0) Discussed dipstick findings with patient. Will hold off on treatment until culture is back. If positive, will treat with appropriate antibiotic. Advised to increase fluids until results are known. Immediate evaluation in ER for warning signs/symptoms as discussed. Patient verbalizes understanding and is agreeable with treatment plan Sep, Other Hand fracture home care material was printed [employer] Other 05-25-2022 History of Present illness Narrative* [facility]: Yoselin Padron * MedOnc: Penelope Ewing * Amber is a 61 yo female with a history of anal dysplasia s/p topical chemo and lazer sx in 2016 ([place]). She noted a recurrence for the past few months. She felt the lesion in the shower and no associated pain or tenderness. No change in bowel habits. 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 She was seen by Dr. Yoselin Padron at [facility], [place] and was found to have a 7x6cm red plague around the posterior half of the anus with a nodular area at the anal verge. On 07/19/21 she underwent EUA with biopsy. Pathology demonstrating HSIL. * She presents today with her partner, Santosh. No tenderness today. She still feels that the lesion is present. No unintended weight loss. Her symptoms have improved since her biopsy in July. Mother with a history of colon polyps. Unsure if shes ever had an abnormal cervical pap. Moves her bowels once daily. Some urgency and incontinence. Has not had an episode of incontinence in over a month. No bleeding. She feels that her health is overall very well right now. She is able to walk for 10 minutes without stopping. * Colonoscopy 2018 in [place] at [facility] in [place], [place] * Current every day smoker 1ppd/Drinks about 2 drinks daily/No Illicit drug use * PMH: anxiety * PSH: colectomy for diverticulitis in 2016 * NKDA * No family history of CRC or IBD * Employment: Not currently working [id number] [address] Work Phone: [phone]) [phone] Miscellaneous Notes* Telephone Encounter - Karolina Johnson - 08/10/2021 12:15 PM EDT I have contacted patient to let her know that I have taken her signed medical records release to Medical Records. They will get her records and imaging over to Dr. Jun España for further treatment. Karolina Johnson Robinson to Dr. Yoselin Padron Colorectal Surgery documented in this [id number] Miscellaneous Notes* Telephone Encounter - Penelope Guzmán RN - 08/05/2021 11:57 AM EDT Provided pt with information [address] [place] [address] ,[place] [address] Verbalized understanding . Penelope Guzmán RN documented in this [id number] Miscellaneous Notes* Telephone Encounter - Yoselin Padron MD - 07/27/2021 5:47 PM EDT I spoke to Ms. Maldonado about the pathology results which showed invasive squamous cell cancer. I reviewed the diagnosis, staging, and management. She lives in [place] now and is moving to [place]. I suggested Ashlyn/Sunni. I will have our office refer to this [facility] location. She wants to follow up with me after radiation. She needs a CT chest/abd/pelvis for staging which can be done at . Yoselin Padron MD documented in this [id number] Miscellaneous Notes* Telephone Encounter - Yoselin Padron MD - 07/26/2021 5:10 PM EDT Message left for patient regarding pathology results. documented in this [id number] History and physical note* Yoselin Padron MD - 07/19/2021 10:15 AM EDT H&P reviewed. The patient was examined and there are no changes to the H&P. Yoselin Padron MD * Yoselin Padron MD - 07/19/2021 10:06 AM EDT Ms. 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 She has no blood per rectum, weight loss, or abdominal pain. She is accompanied by her to this visit. 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 Past Medical History: Diagnosis Date Anxiety Past Surgical History: Procedure Laterality Date COLECTOMY open, for diverticulitis No current facility-administered medications for this visit. No current outpatient medications on file. Facility-Administered Medications Ordered in Other Visits: sodium chloride 0.9 % iv infusion, , Intravenous, Continuous, Yoselin Padron MD Social History Socioeconomic History Marital status: Unknown Tobacco Use Smoking status: Current Every Day Smoker Types: Cigarettes Family History Problem Relation Age of Onset Other (DCIS) Sister Physical exam: leather belt loop cutter present Vitals Recorded in This Encounter 07/15/2021 1504 BP: 151/69 Pulse: 84 Resp: 18 Weight: 151 lb (68.5 kg) Height: 6' (1.829 m) Pain Score: 2 BMI: 20.48 CV: RRR Lung: CTAB Abd: soft, not tender or distended No inguinal adenopathy bilaterally In the left lateral position, the buttocks are spread apart. There is a 9x8 cm red plaque around the anus with a nodular area at the anal verge. On digital exam, part of this lesion extends into the anal canal. Assessment: Circumferential anal margin lesion Plan: I reviewed the exam results with the patient and her . I recommended biopsies in the operating room for diagnosis as well as documentation of the lesion. Possible diagnoses include AIN III or anal cancer. I reviewed what AIN is and the management of AIN and anal cancer. The patient's questions were answered. Surgery is scheduled for 07/19/2021. Yoselin Padron MD documented in this [id number] History of Present illness Narrative* Yoselin Padron MD - 07/19/2021 10:06 AM EDT Ms. 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 She has no blood per rectum, weight loss, or abdominal pain. She is accompanied by her to this visit. She had a shave biopsy by dermatology on 06/23/2021 which showed at least verrucoid Crsos's disease. Past Medical History: Diagnosis Date Anxiety Past Surgical History: Procedure Laterality Date COLECTOMY open, for diverticulitis No current facility-administered medications for this visit. No current outpatient medications on file. Facility-Administered Medications Ordered in Other Visits: sodium chloride 0.9 % iv infusion, , Intravenous, Continuous, Yoselin Padron MD Social History Socioeconomic History Marital status: Unknown Tobacco Use Smoking status: Current Every Day Smoker Types: Cigarettes Family History Problem Relation Age of Onset Other (DCIS) Sister Physical exam: leather belt loop cutter present Vitals Recorded in This Encounter 07/15/2021 1504 BP: 151/69 Pulse: 84 Resp: 18 Weight: 151 lb (68.5 kg) Height: 6' (1.829 m) Pain Score: 2 BMI: 20.48 CV: RRR Lung: CTAB Abd: soft, not tender or distended No inguinal adenopathy bilaterally In the left lateral position, the buttocks are spread apart. There is a 9x8 cm red plaque around the anus with a nodular area at the anal verge. On digital exam, part of this lesion extends into the anal canal. Assessment: Circumferential anal margin lesion Plan: I reviewed the exam results with the patient and her . I recommended biopsies in the operating room for diagnosis as well as documentation of the lesion. Possible diagnoses include AIN III or anal cancer. I reviewed what AIN is and the management of AIN and anal cancer. The patient's questions were answered. Surgery is scheduled for 07/19/2021. Yoselin Padron MD * Jaden Molina MD - 07/15/2021 3:51 PM EDT Images from the original note were not included. [facility] GENERAL SUR[facility] COLORECTAL SURGERY CONSULTATION, HISTORY & PHYSICAL Reason for consultation: SCC anus Referring physician: Geraldine HPI: 60 yof presents as referral from dermatology for follow up of anal SCC. Initially diagnosed approx 6 years ago, treated with topical 5-FU therapy followed by laser ablation. A recent biopsy obtained by outside dermatology demonstrated at least SCC in situ. Feels a mass surrounding her anus, with int ermittently noticing blood per rectum when wiping. Has had intermittent diarrhea (last episode several months ago) which improved with diet changes but not fully resolved. She denies any other symptoms, denies any CP/SOB/F/C/N/V, denies any night sweats or significant weight loss. PMH: Review of patient's past medical history indicates: Anxiety PSH: Review of patient's past surgical history indicates: COLECTOMY open, for diverticulitis MEDS: Zoloft ALL: NKDA FH: Family History Problem Relation Age of Onset Other (DCIS) Sister SH: Social History Socioeconomic History Marital status: Unknown Tobacco Use Smoking status: Current Every Day Smoker Types: Cigarettes Review Of Systems: Skin: negative Eyes: negative review of symptoms Ears/Nose/Throat: negative Respiratory: negative symptoms (no cough, hemoptysis, SOB, RODRIGUEZ, PND, wheezing) Cardiovascular: negative symptoms (No CP/Pressure/Tightness, palpitations, orthopnea, PND, SOB, RODRIGUEZ, edema, BAZAN or vision change) Gastrointestinal: negative symptoms (no abdominal pain, anorexia, n/v, indigestion, constipation, or diarrhea) Genitourinary: no urinary symptoms Neurologic: negative symptoms (no syncope, seizures, weakness, gait problems, numbness, burning pain, tremors, or memory loss) negative (no arthritic pain, no joint swelling, no muscle weakness) Psychiatric: negative (no sleep disturbance, anxiety, memory loss, disorientation, inattention, feelings of depression) Hematologic/Lymphatic/Immunologic: negative (no anemia, bleeding, bruising) Endocrine: negative review of symptoms PHYSICAL EXAM: VITALS: Vitals: 07/15/21 1504 BP: 151/69 Pulse: 84 Resp: 18 Physical Exam Constitutional: General: She is not in acute distress. Appearance: Normal appearance. She is normal weight. She is not ill-appearing, toxic-appearing or diaphoretic. HENT: Head: Normocephalic and atraumatic. Mouth/Throat: Mouth: Mucous membranes are moist. Pharynx: Oropharynx is clear. Eyes: General: No scleral icterus. Extraocular Movements: Extraocular movements intact. Pupils: Pupils are equal, round, and reactive to light. Cardiovascular: Rate and Rhythm: Normal rate and regular rhythm. Pulses: Normal pulses. Pulmonary: Effort: Pulmonary effort is normal. No respiratory distress. Breath sounds: No wheezing or rhonchi. Abdominal: General: Abdomen is flat. There is no distension. Palpations: Abdomen is soft. Tenderness: There is no guarding or rebound. Genitourinary: Comments: See images; extensive plaque measuring approximately 6x6cm. Small area of nodularity leftposterior approx 2cm from anal verge. No involvement of anus noted Musculoskeletal: General: Normal range of motion. Cervical back: Normal range of motion. Lymphadenopathy: Lower Body: No right inguinal adenopathy. No left inguinal adenopathy. Skin: General: Skin is warm and dry. Coloration: Skin is not jaundiced. Neurological: General: No focal deficit present. Mental Status: She is alert and oriented to person, place, and time. Mental status is at baseline. Psychiatric: Mood and Affect: Mood normal. Behavior: Behavior normal. ASSESSMENT/RECOMMENDATIONS: Amber Maldonado is a 60 year old female who presents to establish follow-up care for anal SCC. Physical exam with extensive plaque, which is soft, one small area of possible nodularity. Clinically appears to be more like AIN III rather than SCC, but will obtain biopsies for further clarity. Plan for anal EUA, biopsy on Sunday at [facility] Pt seen, d/w Dr. Padron, staff surgeon Jaden Molina MD Associated attestation - Yoselin Padron MD - 07/19/2021 11:18 AM EDT Teaching Physician Note: I saw and evaluated the patient. I personally obtained the cano and critical portions of the historyand physical exam on the date of this note. I reviewed the resident's documentation and discussed the patient with the resident. I agree with the resident's medical decision making as documented in the resident's note. Yoselin Padron MD * Autumn Urban RN - 07/15/2021 3:04 PM EDT Patient was identified by name and date of . Autumn Urban RN, RN Patient at risk for falls:No Falls Risk protocol implemented: No documented in this [id number] Miscellaneous Notes* Anesthesia Attestation - Carlos A Vazquez MD - 07/19/2021 7:00 AM EDT Anesthesia Attestation ATTESTATION OF INFORMED CONSENT FOR ANESTHESIA Anesthesia options were discussed with the patient and/or legal volunteer patient representative. The risks, benefits and alternatives were reviewed. Questions regarding anesthesia were answered. Patient and/or legal volunteer patient representative knows such anesthetics and procedures may be performed by Resident physicians, Certified Anesthesiologist Assistants, or Certified Nurse Anesthetists under the supervision of a physician. The patient /or the patient s legal representativeagree with the plan for anesthesia. * Blood Attestation - Carlos A Vazquez MD - 07/19/2021 7:00 AM EDT Blood Attestation ATTESTATION OF INFORMED CONSENT FOR BLOOD The transfusion of blood and/or blood components were discussed with the patient and/or legal volunteer patient representative. The risks, benefits and alternatives were reviewed. Questions regarding blood transfusions were answered. The patient /or the patient s legal volunteer patient representative agree with the plan for transfusion of blood and/or blood components. documented in this [id number] Miscellaneous Notes* Telephone Encounter - Karolina Johnson - 07/15/2021 6:18 PM EDT Attempted contacting patient about her telephone pse appointment but there was no answer. The following message was left: I wanted to confirm that you have been scheduled for your pse appointment on July 18t 10:15 am. I stated this would be a telephone visit and just wanted to double check that she was given this appointment. I stated to call the office Sunday at [phone] after 8:00 am if she had any additional questions about the pse appointment or surgery scheduled for July 19, 2021. Karolina Johnson Robinson to Dr. Yoselin Padron Colorectal Surgery documented in this [id number] Instructions* Patient Instructions* Yoselin Padron MD - 07/15/2021 3:49 PM EDT Date of Surgery: July 19, 2021 You will be called the day before surgery with an arrival time. Fasting Guidelines before Surgery When to stop eating and drinking before surgery [facility] is committed to the health and safety of our patients. It is very important to follow the instructions below to make sure there is nothing in your stomach before surgery for two reasons: 1.To prevent any food or liquid from getting into your lungs 2.To avoid delaying or rescheduling your surgery Examples OF: Solid Foods Anything with substance; bread meat milk orange juice fruits vegetables milkshakes Examples OF: Clear Liquids Any liquid that you can SEE THROUGH; water carbonated beverages Jell-O popsicles broth fruit juices WITHOUT pulp (apple, cranberry) tea or coffee WITHOUT cream The day BEFORE surgery You can eat your normal diet unless you were given different instructions by your surgeon. Please STOP eating solid food at midnight. On the MORNING of surgery NO solid foods on the day of surgery. You can drink clear liquids only. You MUST stop drinking 3 hours before your scheduled surgery time. 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 Patient reports that her cancer diagnosis was originally established about six years ago. At that time, management consisted of topical chemotherapy (likely 5- FU) followed by ablative laser treatment. She then remained in clinical remission for unknown duration with intermittent follow up by a new provider. She recently relocated to [place] from [place] and was seen by Dr. 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 Currently she has noticed bright red blood upon cleaning the area. Occasionally, she experiences episodes of diarrhea that have improved with dietary changes. Denies fevers, chills, fatigue, night s weats, constipation and dark/black stools. She has a history of genital warts many years ago. She does not recall receiving the HPV vaccine. Her last colonoscopy was three years ago-- unremarkable per patient. REVIEW OF SYSTEMS Review of systems: General: (-) fevers, (-) chills, (-) weight loss Skin: As discussed above PHYSICAL EXAM General: Pleasant female. No distress. Neurological: Alert and oriented x3. Psychiatric: Appropriate mood and affect. Skin: Examined buttocks, anus, perineum. Pt declined remainder of physical examination. - Radiating from the anus and extending onto the buttocks is a pink, macerated plaque with undulating borders ~ 5 x 5 cm. The posterior aspect of the plaque exhibits an ovoid shallow ulcer with yellowish slough-- corresponds to biopsy site. - No inguinal LAD ASSESSMENT & PLAN 1. 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 Discussed relationship to human papilloma virus. - Discussed the nature of her cancer and the potential for local growth and potential spread if left neglected or long-term untreated. This risk will be dependent on any disease extending internally onto mucosa/rectum. - Discussed anoscopy or colonoscopy for scoping biopsies and determination of tumor extent. Explained the need for interdisciplinary management. A referral to colorectal general surgery was made. - Explained that if a surgical procedure is indicated after her work-up is complete, it would be best to perform it under general anesthesia given the extent of the tumor, location (for patient comfort) and potential anal involvement. - Relayed that prognostic information cannot be accurately provided at this time since additional investigational tests are needed. - Consider GI tumor board - Answered all patient questions. Shanon Lopez MD Teaching Physician Note: I saw and evaluated the patient. I personally obtained the cano and critical portions of the historyand physical exam. I reviewed the resident's documentation and discussed the patient with the resident. I agree with the resident's medical decision making as documented in the resident's note. Time-based billing justifications: Reviewing (chart, labs, and other clinical notes) Obtaining history (or reviewing separately obtained history) Patient visit (including performing a medically appropriate exam) Counseling/educating the patient/family/caregiver Referring/communicating with other health childcare attendant - when not reported separately Charting in Epic Victoriano Chandler MD * Christi Chaves RN - 07/06/2021 2:58 PM EDT Identification was verified by patient verbalizing her name and date of . Patient at risk for falls:No Falls Risk protocol implemented: No Patient here for consult for skin cancer removal. Christi Chaves RN documented in this encounterMetroHealthEvaluation + Plan note No data available for this section [facility] Diagnosis Squamous cell carcinoma of perianal region- Primary Squamous cell carcinoma of skin of trunk, except scrotum documented in this encounter [facility]* Diagnosis Perianal mass- Primary Other symptoms involving digestive system Perianal mass Other symptoms involving digestive system documented in this encounter [facility]* Diagnosis Perianal mass- Primary Other symptoms involving digestive system Abnormal electrocardiogram (ECG) (EKG) Body mass index (BMI) 20.0-20.9, adult documented in this encounter [facility]* Diagnosis Perianal mass- Primary Other symptoms involving digestive system Anal lesion Other specified disorder of rectum and anus documented in this encounter [facility]* Diagnosis Anal cancer (HCC)- Primary Malignant neoplasm of anus, unspecified site Anal squamous cell carcinoma (HCC) Malignant neoplasm of anus, unspecified site documented in this encounter [facility] noteNo [place] Other evaluation note* Diagnosis Onset Date Resolution Status Anal cancer acute Recurrent anal squamous cell carcinoma chronic [facility] Work Phone: evaluation note* Diagnosis Onset Date Resolution Status Anal cancer acute Carcinoma in situ of anal margin chronic Coordination of complex care chronic Recurrent anal squamous cell carcinoma chronic [facility] Work Phone: evaluation note* Diagnosis Perianal mass- Primary Other symptoms involving digestive system documented in this encounter [facility]* Diagnosis Anal cancer (HCC)- Primary Malignant neoplasm of anus, unspecified site documented in this encounter [facility]* Diagnosis Squamous cell carcinoma of anal margin- Primary documented in this encounter [facility]* Diagnosis Anal squamous cell carcinoma (HCC)- Primary Malignant neoplasm of anus, unspecified site Treatment plan provided documented in this encounter [facility]* Diagnosis Anal squamous cell carcinoma (HCC) Malignant neoplasm of anus, unspecified site documented in this encounter [facility]* Diagnosis Anal cancer (HCC) Malignant neoplasm of anus, unspecified site documented in this encounter [facility]* Diagnosis Anal squamous cell carcinoma (HCC)- Primary Malignant neoplasm of anus, unspecified site documented in this encounter [facility]* Diagnosis Perianal mass- Primary Other symptoms involving digestive system Anal cancer (HCC) Malignant neoplasm of anus, unspecified site Encounter for antineoplastic chemotherapy documented in this encounter [facility]* Diagnosis Anal squamous cell carcinoma (HCC)- Primary Malignant neoplasm of anus, unspecified site Heartburn documented in this encounter [facility]* Diagnosis Palliative care encounter- Primary Encounter for palliative care Palliative care by specialist Cancer related pain Neoplasm related pain (acute) (chronic) Body mass index (BMI) 20.0-20.9, adult documented in this encounter [facility]* Diagnosis Neutropenic fever (HCC)- Primary Neutropenia, unspecified Anal squamous cell carcinoma (HCC) Malignant neoplasm of anus, unspecified site Vitamin D deficiency Unspecified vitamin D deficiency Heavy tobacco smoker >10 cigarettes per day Depression with anxiety Dysthymic disorder Fever, unspecified fever cause Neutropenic fever (HCC) Neutropenia, unspecified Abnormal electrocardiogram (ECG) (EKG) Anal cancer (HCC) Malignant neoplasm of anus, unspecified site Depression with anxiety Dysthymic disorder Vitamin D deficiency Unspecified vitamin D deficiency Anal cancer (HCC) Malignant neoplasm of anus, unspecified site Heavy tobacco smoker >10 cigarettes per day documented [facility]* Diagnosis Anal cancer (HCC)- Primary Malignant neoplasm of anus, unspecified site documented in this encounter [facility]* Diagnosis Anal squamous cell carcinoma (HCC) Malignant neoplasm of anus, unspecified site Anal cancer (HCC) Malignant neoplasm of anus, unspecified site documented in this encounter [facility]* Diagnosis Anal squamous cell carcinoma (HCC)- Primary Malignant neoplasm of anus, unspecified site Anal cancer (HCC) Malignant neoplasm of anus, unspecified site Perianal mass Other symptoms involving digestive system documented in this encounter [facility]* Diagnosis Anal cancer (HCC)- Primary Malignant neoplasm of anus, unspecified site documented in this encounter [facility]* Diagnosis Anal cancer (HCC)- Primary Malignant neoplasm of anus, unspecified site Use of opiates for therapeutic purposes Palliative care encounter Encounter for palliative care Cancer related pain Neoplasm related pain (acute) (chronic) Palliative care by specialist Neuropathic pain Neuralgia, neuritis, and radiculitis, unspecified Nausea and vomiting, unspecified vomiting type documented in this encounter [facility]* Diagnosis Anal cancer (HCC) Malignant neoplasm of anus, unspecified site Use of opiates for therapeutic purposes Palliative care encounter Encounter for palliative care Cancer related pain Neoplasm related pain (acute) (chronic) Palliative care by specialist Neuropathic pain Neuralgia, neuritis, and radiculitis, unspecified Nausea and vomiting, unspecified vomiting type documented in this [facility]* Diagnosis Anal squamous cell carcinoma (HCC)- Primary Malignant neoplasm of anus, unspecified site Body mass index (BMI) 19.9 or less, adult documented in this encounter [facility]* Diagnosis Anal cancer (HCC)- Primary Malignant neoplasm of anus, unspecified site documented in this encounter [facility]* Diagnosis NO SHOW- Primary documented in this encounter [facility]* Diagnosis NO SHOW- Primary documented in this encounter [facility]* Diagnosis NO SHOW- Primary documented in this encounter [facility] noteNo assessment information [facility]: History general Narrative - Reported* Type Description Date Medical History TOPICAL CANCER ON BUTTOCKS Surgical History BOWEL RECONSTRUCTION [place] [facility] Other Hospital Discharge instructions* Instructions* Lizbeth Garcia RN - 07/19/2021 Home Going Instructions After an Anorectal Operation Diet: A normal diet with appropriate fiber content can be resumed unless otherwise specified by your surgeon. Alcohol: Alcoholic beverages should be avoided until the following day or while using narcotics. Activity: Walking and climbing stairs is acceptable, but strenuous activity (e.g., lifting objects weighing over 30 lbs, sit-ups, push-ups) should be avoided for 4 weeks. Driving: Do not drive a vehicle while still uncomfortable or while taking narcotics. When you return to driving, do not go alone the first time. Wound care: The wound usually heals in 2 weeks and should be kept generally clean with a daily shower or bath. Sit in a tub of warm water in the morning and evening and after each bowel movement if you can. Do not put anything into the water like soap, Epsom salts or other products. After a shower or bath, gently dry the wound. If you have a drainage tube, you may experience pus-like or mucus drainage around or through the tube. Medications: If you were prescribed pain pills, use them as directed. If you are still having pain despite taking the pills, it is OK to take 600mg ibuprofen (advil, motrin) every 6 hours - you can buy this over the counter at any drug store. Do not take tylenol (acetaminophen) while taking pain pills. Take colace twice per day to keep stools soft. If you are having diarrhea, stop taking. If you are having trouble having a bowel movement, it is OK to take 30cc of milk of magnesia. Do not use any suppositories or enemas Can apply bacitracin to perianal area 1-2 times per day. Potential problems: Bleeding A small amount of bleeding may occur and is normal. If you experience large amounts of bleeding or see clots (look like jelly or Jello), you must call your surgeon for advice. Drainage A small amount of drainage is expected. Heavy pus-like drainage or passage of gas or stool from thevagina, especially if is a new complaint, may indicate a problem, and you must call your surgeon for advice. Difficulty urinating Try sitting in a tub of warm water, or standing under a warm shower. If you feel like you need to void and cannot, call your surgeon or go to the nearest emergency department. Surgical infections Fever over 101 F, or worsening pain, may indicate a serious infection, and you must immediately call your surgeon for advice. Office visits: Follow-up appointments are usually scheduled 4 weeks following surgery. Please call Dr. Padron' office: [phone] to make an appointment at your convenience. For other questions or concerns, please contact Dr. Padron at the number listed below. On weekends or after-hours, call [phone] and ask to speak with the surgery resident feather boner Yoselin Padron MD, FACS, FASCRS Colorectal Graduate Assistant Athletic Trainerspanner operator, [address] [id number] PERIOPERATIVE DISCHARGE/HOME-GOING INSTRUCTIONS ANESTHESIA - GENERAL (ADULT) If a problem arises, you may contact your physician by calling [phone] and asking for the resident feather boner for Colorectal service. Special Care Needs: Activity: Rest at home today and tomorrow, then progress to your regular activities as tolerated. Diet: Clear liquids are best tolerated at first. If you are not nauseated, you can progress your diet to solid foods as tolerated. Possible post-operative precautions: Call you doctor or clinic for: 1. Signs of infection such as fever or chills. 2. Severe pain that in not relieved by Tylenol or your pain medicine prescription. 3. You may have a sore throat - it is usually gone in 1 to 2 days. Post-anesthesia safety: Possible side effects include drowsiness, dizziness, or inability to think clearly. For your safety, do not drive, drink alcoholic beverages, take any unprescribed medication or make any important decisions for 24 hours. A responsible adult should be with you for 24 hours. If no urine by 7pm or you become very uncomfortable and can t urinate, call [phone] or come to the emergency room. The day after surgery, a nurse will call to check on you. However, if there are any questions or concerns, please call us at the number listed in the home going instructions. documented in this encounterMetroHealthHospital Discharge instructionsAmbulatory Orders* Imaging on Disk Time Frame: 1 Day, Location: Determined By Patient [facility] Work Phone: Progress note Author Penelope Ewing [facility] December 03, 2021 1:07pm Note Date/Time December 02, 2021 2: 41pm [facility] [place] [address] Hem/Onc Follow Up Note - OP Signed Patient: Amber Maldonado MR#: [id number] : 1960 Acct:[id number] Age/Sex: 61 / F Type: REG RCR Copies to: MD Lizbeth Wyman DNP Times, Melissa~ Subjective Date/Time of Service: Date of Service: 12/02/2021 Time of Service: 14:40 Chief Complaint: Patient is here today for one month follow up visit for recurrent anal squamous cell carcinoma and saw surgeon at and here to discuss HPI: 12/02/2021: Amber was seen by Dr. Murphy yesterday at with review of imaging and exam. She recommends EUA/HRA (exam under anesthesia/high resolutionanoscopy) following pelvic MRI which the patient may obtain locally. She is planning local excision of unilateral involvement of perianal condyloma with at least HGSIL/possible invasive SqCC then will reschedule for surgical excision ofthe opposite side. If suspected sphincter involvement by MRI or anoscopy, the patient may be referred back for chemoradiation. She will return for followup about 6 weeks to review pathology and surgical recovery. Moderate complexity 35minutes for coordination of care. 11/03/2021: This is a telephone encounter follow-up to review recommendations from GI tumor board at [facility]. Patient was originally to be referred to Dr. Alcides Zuniga for surgical evaluation but recommendation was tosend to Dr. Gracy Murphy for evaluation and office anoscopy. Holding PET/CTat this time. Evaluate for potential wide local excision if anal canal is not involved. May be eligible for clinical trial. [facility] [place] [facility]. Radiation oncology Dr. España was updated to this plan as well as the patient by phone today. After evaluation by Dr. Murphy, if planis for chemoradiation, we may reschedule her staging PET/CT. This is a moderatecomplexity 20-minute phone visit to review results of tumor board and coordinatecare for surgical evaluation. ORIGINAL CONSULT 10/26/2021: This is a 60-year-old lady who presents referred from [facility] for diagnosis of recurrent anal carcinoma. 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 She was referred to Dr. Desean Peng at [facility] and we are requesting original records for pathology and her treatment plan at that time. She reports that she was given topical chemotherapy cream for 6 months and then had laser treatments with resolution of symptoms. She has never had a positive HIV and is never had an abnormal Pap smear. She has not had a Pap or pelvic examination for the last 8 years. Last menstrual period was at age 53 and she had natural menopause with all organs intact. She has not recently been tested for HIV, but has never beendocumented to have infection. About 4 months ago she noted some irregularity when wiping over her buttock. She reports that she was in the process of moving at that time and delayed care. She was referred to Dr. Livingston of dermatology who biopsied the area of concern demonstrating at least squamous cell carcinoma in situ. She then referred the patient to [facility] for anoscopy. Patient has noted some intermittent brightred blood per rectum over stools and also when she is cleaning the area. She does not have any significant diarrhea or other changes in stools and denies anysignificant pain. She does have a remote history of genital warts and has not received the HPV vaccine. Anal exam at [facility] reported involvement of anal verge, but no anoscopy was reported. DIAGNOSIS: 1. Initial diagnosis of squamous cell carcinoma in situ around 2015 ([facility]). Obtaining original records. 2. 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 Left anal verge: Well-differentiated squamous cell carcinoma, likely invasive in a background of high-grade anal intraepithelial neoplasia/carcinoma in situ (AIN3/CIS) B. Perianal right anal verge: At least high-grade anal intraepithelial neoplasia/carcinoma in situ (AIN3/CIS), invasion cannot be totally excluded C. Perianal, left lateral: Well-differentiated squamous cell carcinoma likely invasive in a background of high-grade anal intraepithelial neoplasia/carcinoma in situ (AIN3/CIS) D. Perianal, left posterior: Well-differentiated squamous cell carcinoma likelyinvasive in a background of high-grade anal intraepithelial neoplasia/carcinoma in situ (AIN3/CIS) B. Perianal, right lateral: At least high-grade anal intraepithelial neoplasia/carcinoma in situ (AIN3/CIS), invasion cannot be totally excluded - Summary of Therapies Summary of Therapies: 1. 2016 therapy of perianal carcinoma in situ (obtaining original records from [facility]): Topical chemotherapy cream for 6 months and then had lasertreatments with resolution of symptoms 2. Discussion of treatment options for recurrent perianal skin cancer/involvement of anal verge. Referred to Dr. Gracy Cardona at [facility] who requests MRI of pelvis prior to planned surgical excision of perianal condyloma with HGSIL ROS Details: All systems reviewed & no additional complaints except as documented Subjective/ROS - Narrative: No change in review of systems from original consult 10/26/2021 CONSTITUTIONAL: Negative for fatigue, negative for fever or night sweats. 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 HEAD AND NECK: Negative for changes in hearing and vision. Negative for mouth ulcers, nasal congestion and nasal drainage. PULMONARY: Negative for chest pain, cough and dyspnea. CARDIOVASCULAR: Negative for claudication and irregular heartbeat/palpitations. GASTROINTESTINAL: Negative for abdominal pain, constipation, decreased appetite,nausea, or vomiting. Intermittent bright red blood per rectum and loose stools,but no significant diarrhea. No pain with defecation GENITOURINARY: Negative for dysuria and hematuria. No history of prior HIV or known HPV related cancer (although had a reported history of genital warts). Postmenopausal with all organs intact. ENDOCRINE: Negative for cold intolerance and heat intolerance. CENTRAL NERVOUS SYSTEM: Negative for gait disturbance and headache. PSYCHIATRIC: Positive for anxiety disorder not Zoloft. No history of depression. DERMATOLOGICAL: Positive for 4-month history of perianal plaque lesion as per HPI, now 6 x 6 cm. Negative for pruritus and rash. No other signs of skin malignancy. MUSCULOSKELETAL: Negative for back pain and bone/joint symptoms. HEMATOLOGICAL: Negative for bleeding and easy bruising. Negative for history of transfusion or thromboembolic disease ALLERGY: Positive for environmental allergies on chronic Claritin. Denies medication or food allergies. PMF - History Attestation statement: The following information was validated with the patient. Source: Old Records Reviewed - Medical History Medical History: Medical History (Last Reviewed 12/03/21 @ 12:50 by Penelope Ewing MD) Anxiety - Surgical History Surgical History: Surgical History (Last Reviewed 12/03/21 @ 12:50 by Penelope Ewing MD) History of colectomy - Family History Family History: Family History (Last Reviewed 12/03/21 @ 12:50 by Penelope Ewing MD) Other No significant family history - Social History Smoking Status: Current every day smoker Tobacco Type: cigarettes Substance Use Type: None Home Medications & Allergies Allergies No Known Allergies Allergy (Verified 12/02/21 14:32) Home Medications cetirizine 10 mg tablet (Zyrtec) 10 mg PO DAILY 10/26/21 [History Confirmed 12/02/21] sertraline 100 mg tablet (Zoloft) 100 mg PO DAILY 10/26/21 [History Confirmed 12/02/21] Objective - Height/Weight Height/Weight: Height 6 ft Weight 68.039 kg - Vital Signs Vital Signs: 12/02/21 14:32 Temperature 97.8 F Pulse Rate [Left Brachial] 69 Respiratory Rate 16 Blood Pressure [Left Arm] 142/80 H 02 Sat by Pulse Oximetry 94 L Oxygen Delivery Method Room Air Physical Exam Narrative: CONSTITUTIONAL: The patient is in no acute distress. HEAD / FACE: Normocephalic. EYES: Pupils are equal and reactive to light. Conjunctivae and lids are benign in appearance. Ocular movement intact. EARS: Hearing grossly intact. -- Perianal exam showed pink macerated plaque with undulating borders 6 x 6 cm over the bilateral buttocks--less indurated than prior exam. Small area of nodularity on the left approximately 2 cm from the anal verge. No palpable inguinal adenopathy. Limited perianal exam, otherwise see exam from consult below on 10/26/2021: NOSE / MOUTH / THROAT: Nose, mouth, tongue and oropharynx are benign in appearance. No signs of inflammation. NECK / THYROID: Neck is supple. Thyroid is symmetrical, without thyromegaly, masses or palpable nodules. LYMPHATIC: No palpable cervical, supraclavicular, axillary, or inguinal adenopathy. RESPIRATORY: Normal to inspection. Lungs clear to auscultation and percussion. No wheezing, rales, rhonchi or rubs. Normal effort. CARDIOVASCULAR: Regular rate and rhythm. No murmurs, gallops, or rubs. VASCULAR: Carotid, radial, femoral and pedal pulses present bilaterally. No bruits. ABDOMEN: Bowel sounds normoactive. Soft, nontender and non-distended. No hepatosplenomegaly. No masses. -- Rectal exam with irregularity of anal ridge but no obvious mass lesion palpable. Radiation oncology performed vaginal/cervical exam with no obvious lesions or irregularities. GENITOURINARY: No CVA tenderness. No suprapubic fullness or tenderness. No groinadenopathy. No evidence of hernias. INTEGUMENTARY: The skin is remarkable for perianal plaque noted above but no other skin lesions. No rashes. No suspicious lesions BACK / SPINE: The back is nontender. MUSCULOSKELETAL: Normal musculature, no joint deformities or abnormalities, normal range of motion for all four extremities. EXTREMITIES: No edema, cyanosis or clubbing. No Nicolasa sign. NEUROLOGICAL: Alert and oriented. Cranial nerves intact. No gross motor or sensory deficits. PSYCHIATRIC: No anxiety or evidence of depression. - ECOG Performance Status ECOG Score: 0 Results - Labs Labs: CMP ordered prior to MRI for contrast - Impressions MRI pelvis with contrast ordered today and will be sent to Dr. Murphy for review. 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 This was treated in about 2015 with topical chemotherapy (presumed 5-FU) for about 6 months followedby laser treatment to the perianal skin. She was in complete remission for the past 6 years but 4 months ago noted recurrent plaque lesion over bilateral buttocks. She was moving at the time but was able to see Dr. Livingston of dermatology with biopsy confirming squamous cell carcinoma. She was referred for anoscopy at [facility] and on pathology review she was diagnosed with invasive carcinoma in the setting of AIN 3/BRAULIO on multiple biopsies. On 10/26/2021, she presented for evaluation with medical oncology and radiation oncology to discuss optimal therapy. I sent HIV (not performed) and presented her case in GI oncology tumor board. I am also sending her for [employer] evaluation to update her Pap smear given prior history of general warts and recurrent anal cancer. I reviewed prior records from [facility] to determine prior treatment and initial diagnosis. The patient was counseled regarding options of concurrent chemoradiation but [facility] GI tumor board recommended evaluation by Dr. Gracy Murphy. She saw Dr. Murphy yesterday with recommendation for pelvic MRI with contrast (ordered today) and evaluation underanesthesia with high resolution anoscopy. Holding PET/CT at this time. Evaluate for potential wide local excision (unilateral x 2 separate procedures) if anal canal is not involved. If anal canal involved by anoscopy, she may return for concurrent chemoradiation. Next f/u with me in 6 weeks to review pathology after surgical excision. The patient expressed understanding over this moderate complexity 35 minute visit for history and exam, review of outside records, and coordination of care with Dr. Murphy. (2) Coordination of complex care We discussed patient in [facility] to her tumor board as noted above. Follow-up after pelvic MRI which will be forwarded to Dr. Murphy for plannedsurgery if no anal canal involvement. - Time with Patient Time Spent with Patient (Follow Up Visit): 35 minutes - Coordination of care with Dr. Murphy for planned surgical excision Coordination of Care & Counseling Time: Greater than 50% of time spent with patient was for coordination of care (as documented) and [id number] counseling of patient and/or family. Dictated By: Penelope Ewing MD DD/ 1440 Signed By: <Electronically signed by MD Penelope Ewing> 12/03/21 1307 [facility] Work Phone: Progress note Author Jun España [facility] January 11, 2022 3:51pm Note Date/Time January 11, 2022 2: 36pm [facility] [place] [address] Rad Onc Follow Up Note - OP Signed Patient: Amber Maldonado MR#: [id number] : 1960 Acct:[id number] Age/Sex: 61 / F Type: REG RCR Copies to: MD Gracy Reyes MD Jennifer M Kaple, [facility] Date of Service Service Date: 01/11/22 Assessment & Plan (1) Anal cancer Plan: Patient provided consent forms and will contact us if she would like to proceed. CT simulation with contrast-planned for delivery of IMRT to the pelvic and inguinal lymph nodes with a boost to the primary tumor. Anticipate delivery of 50.4 Tripp to the primary tumor in approximately 28fx Concurrent Chemo-Radiation: Patient's case has been discussed in a multidisciplinary fashion with recommendations for concurrent chemoradiation. Due to the increased complexity of try modality therapy, radiation planning as well as management will require increased time and consideration. Patient's care will also increase in complexity due to the increase in toxicities seen with concurrent treatment during his course. Assessment 61-year-old female who presented earlier in the summer of this year with a history of what appears to be AIN, status post topicals and laser therapy now with well differentiated squamous cell of the anus likely invasive with exam showing an 8 x 6 cm tumor/condyloma with involvement of the anal verge and distal anal canal. I again reviewed her pathology which shows well differentiated squamous cell likely invasive in a background of high-grade analintraepithelial neoplasia/carcinoma in situ. Her recent MRI shows a primary tumor measured 6 mm in size in the large surrounding area involving the gluteal fold is consistent with persistent condyloma. However the anoscopy completed on December 01 by her surgeon was negative for any primary findings in the anal canal. I discussed with the patient my concern that we would be delivering full course chemoradiation for what is concerning for microscopic disease or small volume disease obscured by the extent of condyloma. However patient also understands that after what is been several months of delay she also needs to make a treatment decision to move forward as this could become much worse. While her MRI and path support moving forward with cancer treatment she understands that the recommendations have been for surgical resection from the tumor board. I again provided a general overview of radiation treatment planning and delivery. We discussed the need for immobilization and CT simulation. Short and long-term side effects were reviewed in detail and her questions were answered. She was consented to receive care. We did discuss that due to her prior bowel resection she is at a higher risk of adhesions and scarring as well as long-term bowel complications. Patient continues to smoke. Patient was counseled regarding the risks of continued smoking during the radiation course. We discussed the increase in both short- term and long-term toxicity and smoking cessation resources were reviewed. She understands that continued smoking can result in severe radiationside effects as well as a reduction in local control of their cancer. Follow Up Note - Narrative HPI: 61-year-old female with a history of anal cancer treated with topical agents and laser therapy in 2015. She was originally seen in consultation in mid October 2021. Her case was presented at tumor board and she was sent for consideration of surgical resection. Oncologic history as follows:: July 19, 2021 seen at [facility] and was taken to the OR for biopsy. Per the operative note the lesion encompassed the posterior half of the anus extending out 5 cm from the anal verge. Posteriorly the distal aspect of the anal canal was involved. Lesion was 8 x 6 cm. A pudendal nerve block was utilized. Anoscopy showed the posterior anoderm distal aspect with involvement. Anteriorly the anoderm was normal. Punch biopsies were taken and sent to pathology. Final pathology confirmed well-differentiated squamous cell carcinoma likely invasive in a background of high-grade anal intraepithelial neoplasia/carcinoma in situ At consult she reported prior colon resection 5 years ago secondary to diverticulosis. Consequently she has had altered bowel movements since that time which are currently unchanged. From the available notes it appears she was being considered for surgical resection however due to insurance issues this has not been completed. December 01, 2021 patient underwent anoscopy with no primary identified in the anal canal. December 15, 2021 MRI of the pelvis confirmed a focal area of T2 hyperintensity involving the distal anus near the anal verge at approximately 6 o'clock position measuring 6 x 6 mm suspicious for the patient's primary lesion. No gross invasion is seen. No MRI evidence of local metastatic disease. There wasthickening and abnormal enhancement involving the gluteal creases bilaterally. Today she denies any urinary symptoms no vaginal complaints. She denies any pain from the anal tumor. Patient states she has been providing financial assistance by [facility]. She did not undergo surgery due to lack of insurance she would have to pay 3000 [id number]. Physical exam General: alert and oriented male in no acute distress HEENT: normocephalic, extra ocular movements intact Lungs: normal work of breathing on room air Abdomen: non acute MSK: extremities within normal limits Neuro: grossly intact Lymph: No palpable inguinal lymphadenopathy bilaterally GI: Examination of the perianal area shows tumor/condyloma extending approximately 6 x 8 cm outside the anal canal. There is clear involvement of the anal verge. Digital rectal exam questionable for it small palpable abnormality anteriorly at the top of the anal canal. Prior [employer] Exam shows normal external genitalia. Speculum exam shows vaginal mucosa to be pink and moist without lesion. Able to visualize the cervix which is within normal limits. Dictated By: Jun España MD DD/ 1433 Signed By: <Electronically signed by Jun España MD> 01/11/22 1551 [facility] Work Phone: Progress note No data available for this section [facility] N[facility] Auth/Cert Specialty Diagnoses / Procedures Referred By Contac t Referred To Contact General Surgery Diagnoses Perianal mass Perianal mass [K62.89] Procedures ANORECTAL EXAM, SURGICAL, REQUIRING ANESTHESIA (GENERAL, SPINAL, OR EPIDURAL), DIAGNOSTIC BIOPSY, ANORECTAL WALL, ANAL APPROACH EUA, anal mass biopsies Vito, Yoselin Ojeda MD [address] [place] [address] [facility] [address] [place] [address] Phone: [phone] Referral ID Status Reason Start Date Expiration Date Visits Re quested Visits Authorized [id number] 3 3 [facility] Advance Directives Advance Directive Response Recorded Date/ Time Advance Directives No December 03, 2018 12:55pm Advance Directive Response Recorded Date/ Time Advance Directives No December 03, 2018 1:55pm Documents on File Type Date Recorded Patient Integrated Marketing Manager Expl anation Living Will 10/23/2022 3:19 PM Living [facility] Power of [employer] 10/23/2022 3:12 PM Healthcare Power of [employer] Latest Code Status on File Code Status Date Activated Date Inactivated Comments Full Code 10/31/2022 8:26 PM Question Answer Comments Documentation of decision process for this code status: Patient and surrogate unable or unavailable to discuss. There is no previous documentation of code status. Defaulting to Full Code Documents on File Type Date Recorded Patient Integrated Marketing Manager Expl anation Living Will 10/23/2022 3:19 PM Living [facility] Power of [employer] 10/23/2022 3:12 PM Healthcare Power of [employer] Latest Code Status on File Code Status Date Activated Date Inactivated Comments Full Code 10/31/2022 8:26 PM 11/02/2022 5:10 PM Question Answer Comments Documentation of decision process for this code status: Patient and surrogate unable or unavailable to discuss. There is no previous documentation of code status. Defaulting to Full Code Latest Code Status on File Code Status Date Activated Date Inactivated Comments Full Code 10/31/2022 8:26 PM 11/02/2022 5:10 PM Question Answer Comments Documentation of decision process for this code status: Patient and surrogate unable or unavailable to discuss. There is no previous documentation of code status. Defaulting to Full Code Date Activated Date Inactivated Comments 10/31/2022 8:26 PM 11/02/2022 5:10 PM Question Answer Comments Documentation of decision pr ocess for this code status: Patient and surrogate unable or unavailable to discuss. There is no previous documentation of code status. Defaulting to Full Code Chief Complaint and Reason for Visit Chief Complaint Shortness of Breath Chief Complaint Shortness of Breath Thyroid Nodule Chief Complaint T14.90XA Squ Cell Carcinoma of Buttock & Perianal area Reason for Visit Anal cancer Recurrent anal squamous cell carcinoma Chief Complaint T14.90XA Squ Cell Carcinoma of Buttock & Perianal area Reason for Visit Anal cancer Carcinoma in situ of anal margin Coordination of complex care Recurrent anal squamous cell carcinoma Chief Complaint Squ Cell Carcinoma o f Buttock & Perianal area Reason for Visit Anal cancer Carcinoma in situ of anal margin Coordination of complex care Recurrent anal squamous cell carcinoma Assessments No Assessments Information AvailableNo Assessments Information Available Reason for Referral Specialty Diagnoses / Procedures Referred By Alf srinivasan Referred To Contact General Surgery Diagnoses Squamous cell carcinoma of perianal region Procedures GENERAL SURGERY SERVICE REQUEST Victoriano Chandler MD [address] [place] [address] Yoselin Padron MD [address] [place] [place] [address] Referral ID Status Reason Start Date Expiration Date V isits Requested Visits Authorized [id number] Authorized 07/06/2021 01/02/2022 3 3 Specialty Diagnoses / Procedures Referred By Alf srinivasan Referred To Contact Hematology/Oncology Diagnoses Anal cancer (HCC) Anal squamous cell carcinoma (HCC) Yoselin Padron MD [address] [place] [place] [address] [facility] [id number] [place] [address] Phone: [phone] Referral ID Status Reason Start Date Expiration Date Visits Requested Visits Authorized [id number] Authorized Transfer of Care-outside, patient preference 08/05/2021 08/01/2022 3 3 Comments This pt is looking for Oncology care in the [facility] and RAD oncology. Needs CT scans Insurance is through [phone] [place] [address] Specialty Diagnoses / Procedures Referred By Contac t Referred To Contact Palliative Care Diagnoses Anal squamous cell carcinoma (HCC) Mitra Ramos MD, PhD [address] [place] [place] [address] [facility] [address] [place] [address] Referral ID Status Reason Start Date Expiration Date V isits Requested Visits Authorized [id number] Authorized 10/03/2022 10/04/2023 3 3 Scheduling Instructions Please call the Palliative Care office/clinic at to set up an appointment. Question Answer Reason for Referral Cancer [2] Comments Anal cancer pt that will be getting chemoradiation Specialty Diagnoses / Procedures Referred By Contac t Referred To Contact Nutrition Diagnoses Anal squamous cell carcinoma (HCC) Mitra Ramos MD, PhD [address] [place] [place] [address] [facility] [address] [place] [address] Referral ID Status Reason Start Date Expiration Date Visits Requested Visits Authorized [id number] Authorized Consultatio n-[facility] 10/03/2022 10/04/2023 20 20 Scheduling Instructions Please call the Nutrition Clinic at to schedule an appointment if one was not made for you today. Question Answer Please specify primary reason for consult. Oncology Nutrition Comments Most recent visit in Nutrition was on 10/03/2022 with Lara Smith MD Specialty Diagnoses / Procedures Referred By Contac t Referred To Contact Radiology Diagnoses Anal cancer (HCC) Procedures CT CHEST/ABD/PELVIS W/ CONTRAST Times, Yoselin Ojeda MD [address] [place] [place] [address] [facility] [address] SCAN Referral ID Status Reason Start Date Expiration Date V isits Requested Visits Authorized [id number] Closed Transfer of Care-[facility] 09/28/2022 12/27/2022 1 1 Specialty Diagnoses / Procedures Referred By Contac t Referred To Contact Radiology Diagnoses Anal squamous cell carcinoma (HCC) Procedures PET SUBSEQ/DIAG CT NCK/CHST/ABD/PEL W/ Mitra Ramos MD, PhD [address] [place] [place] [address] [facility] PET SCAN [address] [place] [address] Referral ID Status Reason Start Date Expiration Date V isits Requested Visits Authorized [id number] Authorized 03/08/2023 12/07/2023 1 1 Chief Complaint Anal dysplasia Summary Purpose Family History No Family History Records Found Additional Source Comments Reason for Visit (unrecogniz ed section and content) Reason Onset Date Comments No Show 01/12/2023 Specialty Diagnoses / Procedures Referred By Contac t Referred To Contact Nutrition Diagnoses Anal squamous cell carcinoma (HCC) Mitra Ramos MD, PhD [address] [place] [place] [address] [facility] [address] [place] [address] Referral ID Status Reason Start Date Expiration Date Visits Requested Visits Authorized [id number] Authorized Consultatio [facility] 10/03/2022 10/04/2023 20 20 Reason Comments Chemotherapy Blood test Specialty Diagnoses / Procedures Referred By Contac t Referred To Contact Oncology Medical Diagnoses Perianal mass Lara Smith MD [address] [place] [place] [address] Referral ID Status Reason Start Date Expiration Date V isits Requested Visits Authorized [id number] Authorized 10/06/2022 04/01/2023 2 2 Reason Comments Consult with specialist Specialty Diagnoses / Procedures Referred By Contac t Referred To Contact Diagnoses VERRICOID CROSS'S DISEASE, RIGHT MEDIAL BUTTOCK Procedures DERMATOLOGY SERVICE REQUEST LVL 3 EST PT, LOW MDM, 20-29 MINUTES Lizbeth Livingston MD [address] [place] [id number] Victoriano Chandler MD [address] [place] [address] Referral ID Status Reason Start Date Expiration Date Visits Requested Visits Authorized [id number] Authorized Transfer of Care-[facility] 07/01/2021 12/28/2021 3 3 Reason Comments New patient, to establish relationship Specialty Diagnoses / Procedures Referred By Contac t Referred To Contact General Surgery Diagnoses Squamous cell carcinoma of perianal region Procedures GENERAL SURGERY SERVICE REQUEST Victoriano Chandler MD [address] [place] [address] Yoselin Padron MD [address] [place] [place] [address] Referral ID Status Reason Start Date Expiration Date V isits Requested Visits Authorized [id number] Authorized 07/06/2021 01/02/2022 3 3 Reason Onset Date Comments Discuss results test/procedures 07/26/2021 Reason Onset Date Comments Care Coordination 08/01/2021 Reason Onset Date Comments Discuss results test/procedures 09/06/2022 Reason Onset Date Comments Discuss results test/procedures 09/08/2022 Reason Onset Date Comments Discuss results test/procedures 09/08/2022 Discuss treatment plan 09/08/2022 Reason Comments Consult with specialist Specialty Diagnoses / Procedures Referred By Contac t Referred To Contact Radiation Oncology Diagnoses Anal cancer (HCC) Yoselin Padron MD [address] [place] [place] [address] [facility] [address] [place] [address] Referral ID Status Reason Start Date Expiration Date V isits Requested Visits Authorized [id number] Pending Review 09/26/2022 09/27/2023 3 3 Specialty Diagnoses / Procedures Referred By Contac t Referred To Contact Radiology Diagnoses Anal cancer (HCC) Procedures CT CHEST/ABD/PELVIS W/ CONTRAST Yoselin Padron MD [address] [place] [place] [address] [facility] [address] SCAN Referral ID Status Reason Start Date Expiration Date V isits Requested Visits Authorized [id number] Closed Transfer of Care-[facility] 09/28/2022 12/27/2022 1 1 Reason Comments care coordination Reason Onset Date Comments Specialty Pharmacy Medication Refill 10/06/2022 Xeloda Reason Comments Chemotherapy Reason Comments Monitoring/follow-up Specialty Diagnoses / Procedures Referred By Contac t Referred To Contact Palliative Care Diagnoses Anal squamous cell carcinoma (HCC) Mitra Ramos MD, PhD [address] [place] [place] [address] [facility] [address] [place] [address] Referral ID Status Reason Start Date Expiration Date V isits Requested Visits Authorized [id number] Authorized 10/03/2022 10/04/2023 3 3 Specialty Diagnoses / Procedures Referred By Contac t Referred To Contact Oncology Medical Diagnoses Neutropenic fever (HCC) Procedures N/A Jameson Renae MD [address] [place] [place] [address] [facility] [address] [place] [id number] Phone: [phone] Referral ID Status Reason Start Date Expiration Date Visits Re quested Visits Authorized [id number] 3 3 Reason Comments palliative care Reason Comments Dehydration Reason Onset Date Comments No Show 12/20/2022 Reason Onset Date Comments No Show 12/29/2022 Reason Comments Refill Reason Onset Date Comments Speak with provider 01/22/2023 Care Teams (unrecognized sec tion and content) Residential Child Care Counselor Relationship Specialty Start Date End Date Victoriano Chandler MD [address] [place] [address] [place] [address] Physician Dermatology 07/09/21 Residential Child Care Counselor Relationship Specialty Start Date End Date Victoriano Chandler MD [address] [place] [address] [place] [address] Physician Dermatology 07/09/21 Residential Child Care Counselor Relationship Specialty Start Date End Date Victoriano Chandler MD [address] [place] [address] [place] [address] Physician Dermatology 07/09/21 Residential Child Care Counselor Relationship Specialty Start Date End Date Victoriano Chadnler MD [address] [place] [address] [address] [place] [id number] Physician Dermatology 07/09/21 Residential Child Care Counselor Relationship Specialty Start Date End Date Victoriano Chandler MD [address] [place] [address] [place] [address] Physician Dermatology 07/09/21 Residential Child Care Counselor Relationship Specialty Start Date End Date Victoriano Chandler MD [address] [place] [address] [place] [address] Physician Dermatology 07/09/21 Residential Child Care Counselor Relationship Specialty Start Date End Date Victoriano Chandler MD [address] [place] [address] [place] [address] Physician Dermatology 07/09/21 Team Status: Inactive Member Role Status Dates Lizbeth Penaloza DNP Primary Care Provider Active Edgar Galloway APRN Attending Provider Active Team Status: Active Member Role Status Dates Lizbeth Penaloza DNP Primary Care Provider Active Jun España MD Attending Provider Active Vito Wyatt Referring Provider Active Team Status: Active Member Role Status Dates Lizbeth Penaloza DNP Primary Care Provider Active Residential Child Care Counselor Relationship Specialty Start Date End Date Victoriano Chandler MD [address] [place] [address] [place] [address] Physician Dermatology 07/09/21 Times, Yoselin Ojeda MD [address] [place] [address] Physician Colon & Rectal Surgery 08/13/21 Residential Child Care Counselor Relationship Specialty Start Date End Date Victoriano Chandler MD [address] [place] [address] [place] [address] Physician Dermatology 07/09/21 Times, Yoselin Ojeda MD [address] [place] [address] Physician Colon & Rectal Surgery 08/13/21 Residential Child Care Counselor Relationship Specialty Start Date End Date Victoriano Chandler MD [address] [place] [address] [place] [address] Physician Dermatology 07/09/21 Times, Yoselin Ojeda MD [address] [place] [address] Physician Colon & Rectal Surgery 08/13/21 Residential Child Care Counselor Relationship Specialty Start Date End Date Victoriano Chandler MD [address] [place] [address] [place] [address] Physician Dermatology 07/09/21 Times, Yoselin Ojeda MD [address] [place] [address] Physician Colon & Rectal Surgery 08/13/21 Residential Child Care Counselor Relationship Specialty Start Date End Date Victoriano Chandler MD [address] [place] [address] [place] [address] Physician Dermatology 07/09/21 Times, Yoselin Ojeda MD [address] [place] [address] Physician Colon & Rectal Surgery 08/13/21 Residential Child Care Counselor Relationship Specialty Start Date End Date Victoriano Chandler MD [address] [place] [address] [place] [address] Physician Dermatology 07/09/21 Times, Yoselin Ojeda MD [address] [place] [address] Physician Colon & Rectal Surgery 08/13/21 Residential Child Care Counselor Relationship Specialty Start Date End Date Victoriano Chandler MD [address] [place] [address] [place] [address] Physician Dermatology 07/09/21 Times, Yoselin Ojeda MD [address] [place] [address] Physician Colon & Rectal Surgery 08/13/21 Residential Child Care Counselor Relationship Specialty Start Date End Date Victoriano Chandler MD [address] [place] [address] [place] [address] Physician Dermatology 07/09/21 Times, Yoselin Ojeda MD [address] [place] [address] Physician Colon & Rectal Surgery 08/13/21 Residential Child Care Counselor Relationship Specialty Start Date End Date Victoriano Chandler MD [address] [place] [address] [place] [address] Physician Dermatology 07/09/21 Times, Yoseiln Ojeda MD [address] [place] [address] Physician Colon & Rectal Surgery 08/13/21 Residential Child Care Counselor Relationship Specialty Start Date End Date Victoriano Chandler MD [address] [place] [address] [place] [address] Physician Dermatology 07/09/21 Times, Yoselin Ojeda MD [address] [place] [address] Physician Colon & Rectal Surgery 08/13/21 Residential Child Care Counselor Relationship Specialty Start Date End Date Victoriano Chandler MD [address] [place] [address] [place] [address] Physician Dermatology 07/09/21 Times, Yoselin Ojeda MD [address] [place] [address] Physician Colon & Rectal Surgery 08/13/21 Residential Child Care Counselor Relationship Specialty Start Date End Date Victoriano Chandler MD [address] [place] [address] [address] [place], [place] [address] Physician Dermatology 07/09/21 Times, Yoselin Ojeda MD [address] [place] [address] 39924 Physician Colon & Rectal Surgery 08/13/21 Mitra Ramos MD, PhD [address] [place] [address] 91509 Physician Radiation Oncology 10/07/22 Camron Roque, PharmD [address] [place] [address] [place] [address] Pharmacist Pharmacology and Toxicology 10/11/22 Naheed Vinson, b2b appointment setter [address] [place] [address] [place] [address] Tech Pharmacology and Toxicology 10/11/22 Residential Child Care Counselor Relationship Specialty Start Date End Date Victoriano Chandler MD [address] [place] [address] [place] [address] Physician Dermatology 07/09/21 Times, Yoselin Ojeda MD [address] [place] [address] 42533 Physician Colon & Rectal Surgery 08/13/21 Mitra Ramos MD, PhD [address] [place] [address] 23867 Physician Radiation Oncology 10/07/22 Camron Roque, PharmD [address] [place] [address] [place] [address] Pharmacist Pharmacology and Toxicology 10/11/22 Naheed Vinson, b2b appointment setter[address] [place] [address] Tech Pharmacology and Toxicology 10/11/22 10/12/22 Amber Barakat CPhT Tech Pharmacology and Toxicology 10/12/22 Residential Child Care Counselor Relationship Specialty Start Date End Date Victoriano Chandler MD [address] [place] [address] [place] [address] Physician Dermatology 07/09/21 Times, Yoselin Ojeda MD [address] [place] [address] 86893 Physician Colon & Rectal Surgery 08/13/21 Mitra Ramos MD, PhD [address] [place] [address] 09842 Physician Radiation Oncology 10/07/22 Camron Roque, PharmD [address] [place] [address] [place] [address] Pharmacist Pharmacology and Toxicology 10/11/22 Amber Barakat [facility] Tech Pharmacology and Toxicology 10/12/22 Residential Child Care Counselor Relationship Specialty Start Date End Date Victoriano Chandler MD [address] [place] [address] [place] [address] Physician Dermatology 07/09/21 Times, Yoselin Ojeda MD [address] [place] [address] 98567 Physician Colon & Rectal Surgery 08/13/21 Mitra Ramos MD, PhD [address] [place] [address] 49463 Physician Radiation Oncology 10/07/22 Camron Roque, PharmD [address] [place] [address] [place] [address] Pharmacist Pharmacology and Toxicology 10/11/22 Amber Barakat [facility] Tech Pharmacology and Toxicology 10/12/22 Residential Child Care Counselor Relationship Specialty Start Date End Date Victoriano Chandler MD [address] [place] [address] [place] [address] Physician Dermatology 07/09/21 Times, Yoselin Ojeda MD [address] [place] [address] 17484 Physician Colon & Rectal Surgery 08/13/21 Mitra Ramos MD, PhD [address] [place] [address] 06012 Physician Radiation Oncology 10/07/22 Camron Roque, PharmD [address] [place] [address] [place] [address] Pharmacist Pharmacology and Toxicology 10/11/22 Amber Barkaat [facility] Tech Pharmacology and Toxicology 10/12/22 Residential Child Care Counselor Relationship Specialty Start Date End Date Victoriano Chandler MD [address] [place] [address] [place] [address] Physician Dermatology 07/09/21 Times, Yoselin Ojeda MD [address] [place] [address] 24731 Physician Colon & Rectal Surgery 08/13/21 Mitra Ramos MD, PhD [address] [place] [address] 41726 Physician Radiation Oncology 10/07/22 Camron Roque, PharmD [address] [place] [address] [place] [address] Pharmacist Pharmacology and Toxicology 10/11/22 Amber Barakat CPhT Tech Pharmacology and Toxicology 10/12/22 Gabby Giles CPhT [address] [place] [address] [place] [address] Medication Building Estimator Pharmacology and Toxicology 10/27/22 Residential Child Care Counselor Relationship Specialty Start Date End Date Victoriano Chandler MD [address] [place] [address] [address] [place] [id number] Physician Dermatology 07/09/21 Times, Yoselin Ojeda MD [address] [place], [place] [address] Physician Colon & Rectal Surgery 08/13/21 Mitra Ramos MD, PhD [address] [place], [place] [address] Physician Radiation Oncology 10/07/22 Camron Roque, PharmD [address] [place] [address] [place] [address] Pharmacist Pharmacology and Toxicology 10/11/22 Amber Barakat CPhT Tech Pharmacology and Toxicology 10/12/22 Gabby Gilse CPhT [address] [place] [address] [place] [address] Medication Building Estimator Pharmacology and Toxicology 10/27/22 Residential Child Care Counselor Relationship Specialty Start Date End Date Victoriano Chandler MD [address] [place] [address] [place] [address] Physician Dermatology 07/09/21 Times, Yoselin Ojeda MD [address] [place] [address] 89197 Physician Colon & Rectal Surgery 08/13/21 Mitra Ramos MD, PhD [address] [place] [address] 91496 Physician Radiation Oncology 10/07/22 Camron Roque, PharmD [address] [place] [address] [place] [address] Pharmacist Pharmacology and Toxicology 10/11/22 Amber Barakat CPhT Tech Pharmacology and Toxicology 10/12/22 Gabby Giles CPhT [address] [place] [address] [place] [address] Medication Building Estimator Pharmacology and Toxicology 10/27/22 Residential Child Care Counselor Relationship Specialty Start Date End Date Victoriano Chandler MD [address] [place] [address] [place] [address] Physician Dermatology 07/09/21 Times, Yoselin Ojeda MD [address] [place] [address] 64761 Physician Colon & Rectal Surgery 08/13/21 Mitra Ramos MD, PhD [address] [place] [address] 28918 Physician Radiation Oncology 10/07/22 Camron Roque, PharmD [address] [place] [address] [place] [address] Pharmacist Pharmacology and Toxicology 10/11/22 Amber Barakat CPhT Tech Pharmacology and Toxicology 10/12/22 Gabby Giles CPhT [address] [place] [address] [place] [address] Medication Building Estimator Pharmacology and Toxicology 10/27/22 Residential Child Care Counselor Relationship Specialty Start Date End Date Victoriano Chandler MD [address] [place] [address] [place] [address] Physician Dermatology 07/09/21 Times, Yoselin Ojeda MD [address] [place] [address] 43608 Physician Colon & Rectal Surgery 08/13/21 Mitra Ramos MD, PhD [address] [place] [address] 90364 Physician Radiation Oncology 10/07/22 Camron Roque, PharmD [address] [place] [address] [place] [address] Pharmacist Pharmacology and Toxicology 10/11/22 Amber Barakat CPhT Tech Pharmacology and Toxicology 10/12/22 Gabby Giles CPhT [address] [place] [address] [place] [address] Medication Building Estimator Pharmacology and Toxicology 10/27/22 Residential Child Care Counselor Relationship Specialty Start Date End Date Victoriano Chandler MD [address] [place] [address] [place] [address] Physician Dermatology 07/09/21 Times, Yoselin Ojeda MD [address] [place] [address] 14262 Physician Colon & Rectal Surgery 08/13/21 Mitra Ramos MD, PhD [address] [place] [address] 77501 Physician Radiation Oncology 10/07/22 Camron Roque, PharmD [address] [place] [address] [place] [address] Pharmacist Pharmacology and Toxicology 10/11/22 Amber Barakat CPhT Tech Pharmacology and Toxicology 10/12/22 Gabby Giles CPhT [address] [place] [address] [place] [address] Medication Building Estimator Pharmacology and Toxicology 10/27/22 Dana Ordonez APRN-MONUMENT SETTER HELPER [address] [place] [address] [place] [address] TURRET LATHE OPERATOR Hematology/Oncology 11/11/22 Residential Child Care Counselor Relationship Specialty Start Date End Date Victoriano Chandler MD [address] [place] [address] [place] [address] Physician Dermatology 07/09/21 Times, Yoselin Ojeda MD [address] [place] [place] [address] Physician Colon & Rectal Surgery 08/13/21 Mitra Ramos MD, PhD [address] [place], [place] [address] Physician Radiation Oncology 10/07/22 Camron Roque, GabeD [address] [place] [address] [place] [address] Pharmacist Pharmacology and Toxicology 10/11/22 Amber Barakat CPhT Tech Pharmacology and Toxicology 10/12/22 Gabby Giles CPhT [address] [place] [address] [place] [address] Medication Building Estimator Pharmacology and Toxicology 10/27/22 Dana Ordonez APRN-MONUMENT SETTER HELPER [address] [place] [address] [place] [address] TURRET LATHE OPERATOR Hematology/Oncology 11/11/22 Residential Child Care Counselor Relationship Specialty Start Date End Date Victoriano Chandler MD [address] [place] [address] [place] [address] Physician Dermatology 07/09/21 Times, Yoselin Ojeda MD [address] [place] [address] 80729 Physician Colon & Rectal Surgery 08/13/21 Mitra Ramos MD, PhD [address] [place] [address] 36192 Physician Radiation Oncology 10/07/22 Camron Roque, PharmD [address] [place] [address] [place] [address] Pharmacist Pharmacology and Toxicology 10/11/22 Amber Barakat CPhT Tech Pharmacology and Toxicology 10/12/22 Gabby Giles CPhT [address] [place] [address] [place] [address] Medication Building Estimator Pharmacology and Toxicology 10/27/22 Dana Ordonez, COMMISSIONED SALES ASSOCIATE-MONUMENT SETTER HELPER [address] [place] [address] [place] [address] TURRET LATHE OPERATOR Hematology/Oncology 11/11/22 Residential Child Care Counselor Relationship Specialty Start Date End Date Victoriano Chandler MD [address] [place] [address] [place] [address] Physician Dermatology 07/09/21 Times, Yoselin Ojeda MD [address] [place] [address] 82580 Physician Colon & Rectal Surgery 08/13/21 Mitra Ramos MD, PhD [address] [place] [address] 81990 Physician Radiation Oncology 10/07/22 Camron Roque, PharmD [address] [place] [address] [place] [address] Pharmacist Pharmacology and Toxicology 10/11/22 Amber Barakat CPhT Tech Pharmacology and Toxicology 10/12/22 Gabby Giles CPhT [address] [place] [address] [place] [address] Medication Building Estimator Pharmacology and Toxicology 10/27/22 Dana Ordonez, COMMISSIONED SALES ASSOCIATE-MONUMENT SETTER HELPER [address] [place] [address] [place] [address] TURRET LATHE OPERATOR Hematology/Oncology 11/11/22 Residential Child Care Counselor Relationship Specialty Start Date End Date Victoriano Chandler MD [address] [place] [address] [place] [address] Physician Dermatology 07/09/21 Times, Yoselin Ojeda MD [address] [place] [address] 22491 Physician Colon & Rectal Surgery 08/13/21 Mitra Ramos MD, PhD [address] [place] [address] 52110 Physician Radiation Oncology 10/07/22 Camron Roque, PharmD [address] [place] [address] [place] [address] Pharmacist Pharmacology and Toxicology 10/11/22 Amber Barakat CPhT Tech Pharmacology and Toxicology 10/12/22 Gabby Giles CPhT [address] [place] [address] [address] [place] [id number] Medication Building Estimator Pharmacology and Toxicology 10/27/22 Dana Ordonez APRN-MONUMENT SETTER HELPER [address] [place] [address] [address] [place] [id number] TURRET LATHE OPERATOR Hematology/Oncology 11/11/22 Residential Child Care Counselor Relationship Specialty Start Date End Date Victoriano Chandler MD [address] [place] [address] [address] [place] [id number] Physician Dermatology 07/09/21 Times, Yoselin Ojeda MD [address] [place] [place] [address] Physician Colon & Rectal Surgery 08/13/21 Mitra Ramos MD, PhD [address] [place] [place] [address] Physician Radiation Oncology 10/07/22 Camron Roque, GabeD [address] [place] [address] [address] [place] [id number] Pharmacist Pharmacology and Toxicology 10/11/22 Amber Barakat CPhT Tech Pharmacology and Toxicology 10/12/22 Gabby Giles CPhT [address] [place] [address] [address] [place] [id number] Medication Building Estimator Pharmacology and Toxicology 10/27/22 Dana Ordonez APRN-MONUMENT SETTER HELPER [address] [place] [address] [address] [place] [id number] TURRET LATHE OPERATOR Hematology/Oncology 11/11/22 Residential Child Care Counselor Relationship Specialty Start Date End Date Victoriano Chandler MD [address] [place] [address] [address] [place] [id number] Physician Dermatology 07/09/21 Times, Yoselin Ojeda MD [address] [place] [address] 00304 Physician Colon & Rectal Surgery 08/13/21 Mitra Ramos MD, PhD [address] [place] [address] 17351 Physician Radiation Oncology 10/07/22 Camron Roque, PharmD [address] [place] [address] [place] [address] Pharmacist Pharmacology and Toxicology 10/11/22 Amber Barakat CPhT Tech Pharmacology and Toxicology 10/12/22 Gabby Giles CPhT [address] [place] [address] [place] [address] Medication Building Estimator Pharmacology and Toxicology 10/27/22 Dana Ordonez, COMMISSIONED SALES ASSOCIATE-MONUMENT SETTER HELPER [address] [place] [address] [place] [address] TURRET LATHE OPERATOR Hematology/Oncology 11/11/22 Residential Child Care Counselor Relationship Specialty Start Date End Date Victoriano Chandler MD [address] [place] [address] [place] [address] Physician Dermatology 07/09/21 Times, Yoselin Ojeda MD [address] [place] [address] 13366 Physician Colon & Rectal Surgery 08/13/21 Mitra Ramos MD, PhD [address] [place] [address] 11496 Physician Radiation Oncology 10/07/22 Camron Roque, PharmD [address] [place] [address] [place] [address] Pharmacist Pharmacology and Toxicology 10/11/22 Amber Barakat CPhT Tech Pharmacology and Toxicology 10/12/22 Gabby Giles CPhT [address] [place] [address] [place] [address] Medication Building Estimator Pharmacology and Toxicology 10/27/22 Dana Ordonez APRN-MONUMENT SETTER HELPER [address] [place] [address] [place] [address] TURRET LATHE OPERATOR Hematology/Oncology 11/11/22 Residential Child Care Counselor Relationship Specialty Start Date End Date Victoriano Chandler MD [address] [place] [address] [place] [address] Physician Dermatology 07/09/21 Times, Yoselin Ojeda MD [address] [place] [address] 21602 Physician Colon & Rectal Surgery 08/13/21 Mitra Ramos MD, PhD [address] [place] [address] 44437 Physician Radiation Oncology 10/07/22 Camron Roque, PharmD [address] [place] [address] [place] [address] Pharmacist Pharmacology and Toxicology 10/11/22 Amber Barakat CPhT Tech Pharmacology and Toxicology 10/12/22 Gabby Giles CPhT [address] [place] [address] [place] [address] Medication Building Estimator Pharmacology and Toxicology 10/27/22 Dana Ordonez APRN-MONUMENT SETTER HELPER [address] [place] [address] [place] [address] TURRET LATHE OPERATOR Hematology/Oncology 11/11/22 Residential Child Care Counselor Relationship Specialty Start Date End Date Victoriano Chandler MD [address] [place] [address] [place] [address] Physician Dermatology 07/09/21 Times, Yoselin Ojeda MD [address] [place] [place] [address] Physician Colon & Rectal Surgery 08/13/21 Mitra Ramos MD, PhD [address] [place] [place] [address] Physician Radiation Oncology 10/07/22 Camron Roque, PharmD [address] [place] [address] [address] [place] [id number] Pharmacist Pharmacology and Toxicology 10/11/22 Amber Barakat CPhT Tech Pharmacology and Toxicology 10/12/22 Gabby Giles CPhT [address] [place] [address] [address] [place] [id number] Medication Building Estimator Pharmacology and Toxicology 10/27/22 Dana Ordonez, COMMISSIONED SALES ASSOCIATE-MONUMENT SETTER HELPER [address] [place] [address] [place] [address] TURRET LATHE OPERATOR Hematology/Oncology 11/11/22 Residential Child Care Counselor Relationship Specialty Start Date End Date Victoriano Chandler MD [address] [place] [address] [address] [place] [id number] Physician Dermatology 07/09/21 Times, Yoselin Ojeda MD [address] [place] [address] 72688 Physician Colon & Rectal Surgery 08/13/21 Mitra Ramos MD, PhD [address] [place] [address] 56179 Physician Radiation Oncology 10/07/22 Camron Roque, PharmD [address] [place] [address] [place] [address] Pharmacist Pharmacology and Toxicology 10/11/22 Amber Barakat CPhT Tech Pharmacology and Toxicology 10/12/22 Gabby Giles CPhT [address] [place] [address] [place] [address] Medication Building Estimator Pharmacology and Toxicology 10/27/22 Dana Ordonez, COMMISSIONED SALES ASSOCIATE-MONUMENT SETTER HELPER [address] [place] [address] [place] [address] TURRET LATHE OPERATOR Hematology/Oncology 11/11/22 Residential Child Care Counselor Relationship Specialty Start Date End Date Victoriano Chandler MD [address] [place] [address] [place] [address] Physician Dermatology 07/09/21 Times, Yoselin Ojeda MD [address] [place] [address] 09597 Physician Colon & Rectal Surgery 08/13/21 Mitra Ramos MD, PhD [address] [place] [address] 53693 Physician Radiation Oncology 10/07/22 Camron Roque, PharmD [address] [place] [address] [place] [address] Pharmacist Pharmacology and Toxicology 10/11/22 Amber Barakat CPhT Tech Pharmacology and Toxicology 10/12/22 Gabby Giles CPhT [address] [place] [address] [place] [address] Medication Building Estimator Pharmacology and Toxicology 10/27/22 Dana Ordonez APRN-MONUMENT SETTER HELPER [address] [place] [address] [place] [address] TURRET LATHE OPERATOR Hematology/Oncology 11/11/22 Residential Child Care Counselor Relationship Specialty Start Date End Date Victoriano Chandler MD [address] [place] [address] [place] [address] Physician Dermatology 07/09/21 Times, Yoselin Ojeda MD [address] [place] [address] 31925 Physician Colon & Rectal Surgery 08/13/21 Mitra Ramos MD, PhD [address] [place] [address] 80181 Physician Radiation Oncology 10/07/22 Camron Roque, PharmD [address] [place] [address] [place] [address] Pharmacist Pharmacology and Toxicology 10/11/22 Amber Barakat CPhT Tech Pharmacology and Toxicology 10/12/22 Gabby Giles CPhT [address] [place] [address] [place] [address] Medication Building Estimator Pharmacology and Toxicology 10/27/22 Dana Ordonez APRN-CNP [address] [place] [address] [place] [address] TURRET LATHE OPERATOR Hematology/Oncology 11/11/22 Residential Child Care Counselor Relationship Specialty Start Date End Date Victoriano Chandler MD [address] [place] [address] [place] [address] Physician Dermatology 07/09/21 Times, Yoselin Ojeda MD [address] [place] [address] 79726 Physician Colon & Rectal Surgery 08/13/21 Mitra Ramos MD, PhD [address] [place] [address] 72789 Physician Radiation Oncology 10/07/22 Camron Roque, PharmD [address] [place] [address] [place] [address] Pharmacist Pharmacology and Toxicology 10/11/22 Amber Barakat CPhT Tech Pharmacology and Toxicology 10/12/22 Gabby Giles CPhT [address] [place] [address] [place] [address] Medication Building Estimator Pharmacology and Toxicology 10/27/22 Dana Ordonez, COMMISSIONED SALES ASSOCIATE-MONUMENT SETTER HELPER [address] [place] [address] [place] [address] TURRET LATHE OPERATOR Hematology/Oncology 11/11/22 Residential Child Care Counselor Relationship Specialty Start Date End Date Victoriano Chandler MD [address] [place] [address] [place] [address] Physician Dermatology 07/09/21 Times, Yoselin Ojeda MD [address] [place] [address] 64205 Physician Colon & Rectal Surgery 08/13/21 Mitra Ramos MD, PhD [address] [place] [address] 58756 Physician Radiation Oncology 10/07/22 Camron Roque, PharmD [address] [place] [address] [place] [address] Pharmacist Pharmacology and Toxicology 10/11/22 02/08/23 Amber Barakat CPhT Tech Pharmacology and Toxicology 10/12/22 02/08/23 Gabby Giles CPhT [address] [place] [address] [place] [address] Medication Building Estimator Pharmacology and Toxicology 10/27/22 02/08/23 Dana Ordonez, COMMISSIONED SALES ASSOCIATE-MONUMENT SETTER HELPER [address] [place] [address] [place] [address] TURRET LATHE OPERATOR Hematology/Oncology 11/11/22 Residential Child Care Counselor Relationship Specialty Start Date End Date Victoriano Chandler MD [address] [place] [address] [place] [address] Physician Dermatology 07/09/21 Times, Yoselin Ojeda MD [address] [place] [address] 17534 Physician Colon & Rectal Surgery 08/13/21 Mitra Ramos MD, PhD [address] [place] [address] 48414 Physician Radiation Oncology 10/07/22 Camron Roque, PharmD [address] [place] [address] [place] [address] Pharmacist Pharmacology and Toxicology 10/11/22 02/08/23 Amber Barakat CPhT Tech Pharmacology and Toxicology 10/12/22 02/08/23 Gabby Giles CPhT [address] [place] [address] [place] [address] Medication Building Estimator Pharmacology and Toxicology 10/27/22 02/08/23 Dana Ordonez APRN-CNP [address] [place] [address] [place] [address] TURRET LATHE OPERATOR Hematology/Oncology 11/11/22 Residential Child Care Counselor Relationship Specialty Start Date End Date Victoriano Chandler MD [address] [place] [address] [place] [address] Physician Dermatology 07/09/21 Times, Yoselin Ojeda MD [address] [place] [address] 87737 Physician Colon & Rectal Surgery 08/13/21 Mitra Ramos MD, PhD [address] [place] [address] 24459 Physician Radiation Oncology 10/07/22 Dana Ordonez APRN-MONUMENT SETTER HELPER [address] [place] [address] [place] [address] TURRET LATHE OPERATOR Hematology/Oncology 11/11/22 Residential Child Care Counselor Relationship Specialty Start Date End Date Victoriano Chandler MD [address] [place] [address] [place] [address] Physician Dermatology 07/09/21 Times, Yoselin Ojeda MD [address] [place] [address] 99746 Physician Colon & Rectal Surgery 08/13/21 Mitra Ramos MD, PhD [address] [place] [address] 15084 Physician Radiation Oncology 10/07/22 Dana Ordonez APRN-MONUMENT SETTER HELPER [address] [place] [address] [place] [address] TURRET LATHE OPERATOR Hematology/Oncology 11/11/22 Residential Child Care Counselor Relationship Specialty Start Date End Date Victoriano hCandler MD [address] [place] [address] [place] [address] Physician Dermatology 07/09/21 Times, Yoselin Ojeda MD [address] [place], [place] [address] Physician Colon & Rectal Surgery 08/13/21 Mitra Ramos MD, PhD [address] [place] [address] 47110 Physician Radiation Oncology 10/07/22 Dana Ordonez, COMMISSIONED SALES ASSOCIATE-MONUMENT SETTER HELPER [address] [place] [address] [place] [address] TURRET LATHE OPERATOR Hematology/Oncology 11/11/22 Scheduled Active and Recently Administ ered Medications (unrecognized section and content) Medication Order 07/17/2021 07/18/2021 07/19/2021 heparin (porcine) 5,000 units/mL injection (COMPLETED) 5,000 Units, Subcutaneous, ONCE, 1 dose, On Sun07/19/21 at 1000, Pre-op 0952 (Given - Provid er: Cindy Ham RN) Continuous Medication Order 07/17/2021 07/18/2021 07/19/2021 sodium chloride 0.9 % iv infusion Intravenous, at 50 mL/hr, CONTINUOUS, Starting on Sun07/19/21 at 1000, Until Discontinued 1000 (Due) PRN Medication Order 07/17/2021 07/18/2021 07/19/2021 bupivacaine (MARCAINE) 20 mL, lidocaine (XYLOCAINE) 1 % 20 mL, dose administered = 33 mL given 40 mL sc injection (CANCELED) PRN, Starting on Sun07/19/21 at 1112, Until Sun07/19/21 at 1112 1112 (Given - Provid er: Yoselin Padron MD) HYDROmorphone (DILAUDID) 0.2 MG/ML injection 0.2 mg 0.2 mg, Intravenous Push, PACU EVERY 15 MIN PRN X 4 DOSES, 4 doses, Starting on Sun07/19/21 at 1030, Until Coby 07/21/21 at 1029, Moderate Pain (pain score 4,5,6), PACU Now HYDROmorphone (DILAUDID) 1 mg/mL injection 0.5 mg, Intravenous Push, PACU EVERY 15 MIN PRN X 4 DOSES, 4 doses, Starting on Sun07/19/21 at 1030, Until Sun07/20/21 at 2359, Severe Pain (pain score 7,8,9,10), PACU Now naloxone (NARCAN) 0.4 MG/ML injection 0.4 mg, Intravenous Push, PRN, Starting on Sun07/19/21 at 1030, Until Discontinued, Respiratory Rate Less Than 8 for adults and less than 12 for Peds or for suspected overdose, PACU Now ondansetron (ZOFRAN) 4 MG/2ML injection 4 mg, Intravenous Push, PACU ONCE PRN, Starting on Sun07/19/21 at 1030, Until Sun07/19/21 at 1629, Nausea, Vomiting, PACU Now oxyCODONE-acetaminophen (PERCOCET) 5-325 mg per tablet 1 Tablet, Oral, PACU ONCE PRN, Starting on Sun07/19/21 at 1030, Until Sun07/19/21 at 1629, Mild Pain (pain score 1,2,3), PACU Now oxyCODONE-acetaminophen (PERCOCET) 5-325 mg per tablet 2 Tablet, Oral, PRN, 1 dose, Starting on Sun07/19/21 at 1030, Until Discontinued, Moderate Pain (pain score 4,5,6), PACU Now sodium chloride 0.9 % (PF) 0.9 % injection 3 mL, Intravenous Push, PRN, Starting on Sun07/19/21 at 1030, Until Discontinued, For medication administration and blood draw, PACU Now Scheduled Medication Order 10/31/2022 2022 11/02/2022 acetaminophen (TYLENOL) tablet (COMPLETED) 650 mg, Oral, ONCE, 1 dose, On Sun11/01/22 at 1800 1727 (Given - Provider: Archana Albarran RN) cefepime (MAXIPIME) 2-5 GM-%(50ML) in dextrose 5% 50 mL ivpb 2,000 mg, Intravenous, EVERY 12 HOURS ANTIBIOTIC, First dose on Sun10/31/22 at 2100, Until Discontinued 0029 (IV New Bag - Provider: Frank Koo RN)1040 (IV New Bag - Provider: Archana Albarran RN)214 (IV New Bag - Provider: Frank Koo RN) 105 (IV New Bag - Provider: Jacques Child RN)2200 (Due) docusate sodium (COLACE) capsule 100 mg, Oral, 2 TIMES DAILY, First dose on Sun10/31/22 at 2100, Until Discontinued 2044 (Given - Provider: Frank Koo RN) 0839 (Given - Provider: Archana Albarran RN)2145 (Hold/Not Given - Provider: Frank Koo RN - Reason: Patient refused) 09 (Hold/Not Given - Provider: Jacques Child RN - Reason: Patient refused)2099 (Due) famotidine (PEPCID) tablet 20 mg, Oral, DAILY, First dose on Sun10/31/22 at 2100, Until Discontinued 2044 (Given - Provider: Frank Koo RN) 0839 (Given - Provider: Archana Albarran RN) 0825 (Given - Provider: Jacques Child RN) magnesium sulfate 4 GM/100ML in 100 mL ivpb (COMPLETED) 4,000 mg, Intravenous, ONCE, 1 dose, On Sun10/31/22 at 2100 2044 (IV New Bag - Provider: Frank Koo RN) nicotine (NICODERM CQ) 14 mg/24HR patch 14 mg, Transdermal, DAILY, First dose on Sun11/01/22 at 0930, Until Discontinued 912 (Patch Applied - Provider: Archana Albarran RN) 08 (Patch Removal - Provider: Jacques Child, MARLON)0827 (Patch Applied - Provider: Jacques Child, RN) Normal consistency supplement (CANCELED) Oral, 2 TIMES DAILY WITH MEALS, First dose on Sun11/01/22 at 1700, Until Discontinued, Normal Consistency Supplement: Magic Cup 1700 (Given - Provider: Archana Albarran, RN) Normal consistency supplement Oral, 3 TIMES DAILY WITH MEALS, First dose (after last modification) on Sun11/02/22 at 0800, Until Discontinued, Normal Consistency Supplement: Magic Cup 0800 (Given - Provider: Jacques Child, RN)1200 (Given - Provider: Jacques Child RN)1700 (Due) sertraline (ZOLOFT) tablet 50 mg, Oral, DAILY, First dose on Sun10/31/22 at 2100, Until Discontinued 2044 (Given - Provider: Frank Koo, MARLON) 0839 (Given - Provider: Archana Albarran, MARLON) 0825 (Given - Provider: Jacques Child, RN) umeclidinium (INCRUSE ELLIPTA) 62.5 MCG/ACT inhalation blister 1 Puff, Inhalation, DAILY RT, First dose on Sun10/31/22 at 2100, Until Discontinued 2099 (Hold/Not Given - Provider: Jose Roberto Nice, RT - Reason: Medication unavailable) 0800 (Hold/Not Given - Provider: Jessenia Rosenthal - Reason: Patient refused - Comment: pt states she does not use it at home) 0810 (Given - Provider: Lizbeth Loera, RT) vancomycin (VANCOCIN) 1,500 mg/300 mL (ROOM TEMP PREMIX) (COMPLETED) 1,500 mg, Intravenous, ONCE, 1 dose, On Sun10/31/22 at 2130 2054 (IV New Bag - Provider: Frank Koo RN) vancomycin (VANCOCIN) 750 mg/150 mL iv soln (ROOM TEMP PREMIX) (CANCELED) 750 mg, Intravenous, EVERY 12 HOURS, First dose on Sun11/01/22 at 1100, Until Discontinued 1038 (IV New Bag - Provider: Archana Albarran RN)2324 (IV New Bag - Provider: Frank Koo RN) vancomycin lab draw (COMPLETED) Other, ONCE, 1 dose, On Sun11/01/22 at 0900 0900 (Given - Provider: Archana Albarran RN) PRN Medication Order 10/31/2022 2022 11/02/2022 albuterol (PROVENTIL HFA) 108 (90 Base) MCG/ACT HFA inhaler 2 Puff, Inhalation, EVERY 4 HOURS PRN, Starting on Sun10/31/22 at 2025, Until Discontinued, Wheezing aquaphor ointment Topical, 3 TIMES DAILY PRN, Starting on Sun11/01/22 at 1432, Until Discontinued, Dry Skin 1553 (Given - Provider: Archana Albarran RN) HYDROmorphone HCl PF (DILAUDID) 1 MG/ML injection 1 mg, Intravenous Push, EVERY 3 HOURS PRN, Starting on Sun11/01/22 at 1046, Until Sun11/03/22 at 1045, Breakthrough Pain 1147 (Given - Provider: Archana Albarran RN) hydrOXYzine (ATARAX) tablet 25 mg, Oral, EVERY 6 HOURS PRN, Starting on Sun10/31/22 at 2027, Until Discontinued, Anxiety 2054 (Given - Provider: Frank Koo RN) 1832 (Given - Provider: Archana Albarran RN) 0530 (Given - Provider: Frank Koo RN)1203 (Given - Provider: Jacques Child RN) lidocaine-prilocaine (E mLA) 2.5-2.5 % cream Topical, EVERY 4 HOURS PRN, Starting on Sun10/31/22 at 2026, Until Discontinued, rectal pain 1553 (Given - Provider: Archana Albarran RN) loperamide (IMODIUM) capsule 2 mg, Oral, 4 TIMES DAILY PRN, Starting on Sun10/31/22 at 2028, Until Discontinued, Diarrhea ondansetron (ZOFRAN-ODT) disintegrating tablet 4 mg, Oral, EVERY 4 HOURS PRN, Starting on Sun10/31/22 at 2026, Until Discontinued, Nausea 2054 (Given - Provider: Frank Koo RN) 0208 (Given - Provider: Frank Koo RN)1147 (Given - Provider: Archnaa Albarran RN)2145 (Given - Provider: Frank Koo RN) 0530 (Given - Provider: Frank Koo RN)1250 (Given - Provider: Jacques Child RN) oxyCODONE immediate release tablet (CANCELED) 5 mg, Oral, EVERY 4 HOURS PRN, Starting on Sun10/31/22 at 2027, Until Sun11/01/22 at 0626, Severe Pain (pain score 7,8,9,10) 2055 (Given - Provider: Frank Koo RN) 0208 (Given - Provider: Frank Koo RN) oxyCODONE immediate release tablet 5 mg, Oral, EVERY 4 HOURS PRN, Starting on Sun11/01/22 at 0625, Until Discontinued, Moderate Pain (pain score 4,5,6) 1725 (Given - Provider: Archana Albarran RN) oxyCODONE immediate release tablet 10 mg, Oral, EVERY 4 HOURS PRN, Starting on Sun11/01/22 at 0625, Until Discontinued, Severe Pain (pain score 7,8,9,10) 0839 (Given - Provider: Archana Albarran RN)2143 (Given - Provider: Frank Koo RN) 0530 (Given - Provider: Frank Koo RN) Goals (unrecognized section and content) Goals may be documented in a n alternate section INFORMATION SOURCE (unrecogn ized section and content) DATE CREATED AUTHOR 12/03/2021 [facility] DATE CREATED AUTHOR AUTHOR'S ORGANIZ ATION 03/13/2022 [facility] DATE CREATED AUTHOR AUTHOR'S ORGANIZ ATION 07/27/2022 [facility] DATE CREATED AUTHOR AUTHOR'S ORGANIZ ATION 02/17/2023 [facility] DATE CREATED AUTHOR AUTHOR'S ORGANIZ ATION 06/16/2023 [facility] DATE CREATED AUTHOR AUTHOR'S ORGANIZ ATION 09/01/2023 [facility] FOR RECORDS PERTAINING TO PATIENTS WHO ARE OR HAVE BEEN ENROLLED IN A CHEMICAL DEPENDENCY/SUBSTANCEABUSE PROGRAM, SOME INFORMATION MAY BE OMITTED. This clinical summary was aggregated from multiple sources. Caution should be exercised in using it in the provision of clinical care. This summary normalizes information from multiple sources, and as a consequence, information in this document may materially change the coding, format and clinical context of patient data. In addition, data may be omitted in some cases. CLINICAL DECISIONS SHOULD BE BASED ON THE PRIMARY CLINICAL RECORDS. [facility] [employer] [facility]. provides no warranty or guarantee of the accuracy or completeness of information in this document.
[2023-10-24 06:55] VITALS: BP 127/75; PULSE 76; TEMP 36.3; O2SAT 99; BMI 18.8
--- NOTE | 2023-10-24 07:05 | PM.GSPRC ---
Date of procedure: 10/24/23 Indications for Procedure: History of anal cancer Pre-op diagnosis: History of anal cancer Post-op diagnosis: other (History of anal cancer/diverticulosis with evidence of colon resection sigmoid colon) Procedure: colonoscopy biopsy of perianal tissues Findings: Diverticulosis and anastomosis sigmoid colon Postradiation changes perianal tissues Anesthesia: MAC Surgeon: Fran Bolanos Procedure Summary: PROCEDURE: The patient was taken to the Endoscopy Suite, placed in the left lateral recumbent position, given IV sedation as above. A rectal digital exam was performed. The sphincter tone was found to be normal. No rectal masses were appreciated. The Olympus video colonoscope was advanced under direct visualization to the rectum, sigmoid colon, descending colon, transverse colon and ascending colon to the ileocecal valve. The underside of the valve was seen. Appendiceal lumen was visualized. The scope was slowly withdrawn with air being desufflated as it was withdrawn. There was evidence of an anastomosis in the sigmoid colon about 20 cm from prior colon resection. No gross tumors or polyps were seen. There is diffuse inflammation around the perianal area consistent with postradiation changes of about 12 to 15 cm. Biopsies were taken of this area. The patient tolerated the procedure well and went to the Recovery Area in satisfactory condition. I recommend screening colonoscopy in 5 years unless problems. Estimated blood loss (mL): 0 Complications: No Condition: stable Disposition: PACU
[2023-10-24] MEDS: LACTATED RINGER'S SOLUTION 1,000 ML 50 ML IV (07:30)
[2023-10-24 08:31] VITALS: BP 100/73; PULSE 71; TEMP 36.1; O2SAT 97
[2023-10-24 08:45] VITALS: BP 110/72; PULSE 72; O2SAT 98
[2023-10-24 09:00] VITALS: BP 146/74; PULSE 64; O2SAT 99
== END 2023-10-24 09:09 | disposition home or self-care (01) ==
PROVIDERS: Visit Provider Surgery
PROC: (CPT 45380; principal; 2023-10-24 07:55)
DX: Z08 Encounter for follow-up examination after completed treatment for malignant neoplasm (principal); Z85.048 Personal history of other malignant neoplasm of rectum, rectosigmoid junction, and anus; K57.30 Diverticulosis of large intestine without perforation or abscess without bleeding; Z90.49 Acquired absence of other specified parts of digestive tract; Z92.21 Personal history of antineoplastic chemotherapy; Z87.891 Personal history of nicotine dependence; Z59.89 Other problems related to housing and economic circumstances; K21.9 Gastro-esophageal reflux disease without esophagitis; Z86.711 Personal history of pulmonary embolism
CPT/HCPCS: 45380; 88305; J2704

== ENCOUNTER 2023-11-06 07:30 | Outpatient (RCR) | payer MEDICARE, OTHER, SELFPAY ==
[2023-10-09 14:22] LABS: Hematocrit 44.3 % (36.0-48.0); Hemoglobin 14.4 g/dL (12.0-16.0); Mean Corpuscular HGB Conc 32.5 g/dL (29.9-35.2); Mean Corpuscular Hemoglobin 33.6 pg (26.7-34.0); Mean Corpuscular Volume 103.3 fL (81.0-99.0); Mean Platelet Volume 9.1 fL (9.5-13.5); Platelet Count 155 10^3/uL (150-450); Red Blood Count 4.29 10^6/uL (4.20-5.40); Red Cell Distribution Width 14.9 % (11.0-15.0); White Blood Count 6.2 10^3/uL (4.0-11.0)
[2023-10-09 14:44] LABS: Percent Iron Saturation 35.6 %
[2023-10-09 14:45] LABS: Alanine Aminotransferase 21 U/L (14-59); Albumin Globulin Ratio 1.1; Alkaline Phosphatase 190 U/L (46-116); Anion Gap 12.9; Aspartate Amino Transferase 15 U/L (15-37); BUN Creatinine Ratio 19.9; Bilirubin Total 0.5 mg/dL (0.2-1.0); Calcium 9.2 mg/dL (8.5-10.1); Carbon Dioxide 27.6 mmol/L (21.0-32.0); Chloride 105 mmol/L (98-107); Estimated GFR (African America 47 (>=60); Estimated GFR (Non-African Ame 39 (>=60); Globulin 3.7 g/dL; Glucose 86 mg/dL (74-106); Potassium 4.5 mmol/L (3.5-5.1); Sodium 141 mmol/L (136-145); Total Protein 7.7 g/dL (6.4-8.2)
[2023-10-09 15:09] LABS: Eosinophils Absolute Manual 0.06 10^3/uL (0.00-0.70); Lymphocytes Absolute Manual 0.99 10^3/uL (1.20-3.80); Monocytes Absolute Manual 0.49 10^3/uL (0.30-0.80); Segmented Neut Absolute Manual 4.65 10^3/uL (1.4-6.5)
[2023-10-09 15:10] LABS: Macrocytosis 2+
== END 2023-11-07 23:59 | disposition home or self-care (01) ==
LOC: INF 07:30
PROVIDERS: Visit Provider Internal Medicine Hematology & Oncology
DX: C21.0 Malignant neoplasm of anus, unspecified (principal); C64.9 Malignant neoplasm of unspecified kidney, except renal pelvis; D69.6 Thrombocytopenia, unspecified
CPT/HCPCS: 36415; 80053; 82378; 82728; 83540; 83550; 85007; 85027; G0463

== ENCOUNTER 2024-01-28 14:52 | Outpatient (OUT) | payer MEDICARE, OTHER, SELFPAY ==
--- NOTE | 2024-01-28 16:01 | PE_ITS ---
The [address] [address] Patient Name: LESVIA MALDONADO MRN: [id number] date: 1960 Sex: F Assigned Patient Location: PETCT Current Patient Location: PETCT Accession/Order Number: [id number] Exam Date: 01/28/2024 15:03 Report Date: 01/31/2024 18:00 At the request of: LAWANDA CA Procedure: PET skull to mid thigh PET/CT: HISTORY: Colorectal cancer diagnosed in 2013, history of radiation therapy and chemotherapy in 2023. COMPARISON: CT chest, abdomen and pelvis 01/20/2023. TECHNIQUE: The patient was injected with 14.08 mCi of F-18 fluorodeoxyglucose (FDG), and an emission scan was performed from the base of the skull to the mid thigh. Noncontrast CT was performed for attenuation correction and anatomic localization. The blood glucose level was 91 mg/dl. The uptake time was 53 minutes. FINDINGS: HEAD AND NECK: There is a physiologic distribution of activity, with no hypermetabolic foci. CHEST: The SUVmax of the mediastinum = 3.0 using the patient's body weight as the normalization method. There is a physiologic distribution of activity, with no hypermetabolic mediastinal, hilar, or pulmonary foci. ABDOMEN AND PELVIS: There is a physiologic distribution of activity within the liver, spleen, adrenal glands, urinary tract and bowel, with no hypermetabolic foci. MUSCULOSKELETAL SYSTEM: There is moderate, likely inflammatory activity around the shoulders bilaterally. There is mild activity in the bilateral L4-L5 facet joints consistent with facet arthropathy. There is an otherwise normal distribution of activity in the bone marrow. ADDITIONAL CT FINDINGS: The ascending thoracic aorta is dilated at 4.7 cm. Previously measured 3.9 cm on 01/20/2023. There is moderate upper lobe predominant emphysema and there is moderate left apical pleuroparenchymal scarring. There is a prominent bleb in the medial left lung apex. There is moderate bilateral renal cortical scarring. There is diffuse atherosclerotic calcification of the aorta, iliac and femoral arteries. There are postsurgical changes consistent with sigmoid colectomy. There is mild presacral soft tissue thickening suggestive of posttreatment changes. PET/PET skull to mid thigh IMPRESSION: 1. No evidence of tumor recurrence or metastatic disease. 2. Additional CT findings as described above including increasing dilatation of the ascending thoracic aorta measuring 4.7 cm. Consider vascular consultation. Electronically authenticated by: SARAH BERNAL Date: 01/31/2024 18:00
== END 2024-01-28 14:53 | disposition home or self-care (01) ==
LOC: PETCT 14:52
PROVIDERS: PCP Family Medicine; Visit Provider Internal Medicine Hematology & Oncology
DX: D64.9 Anemia, unspecified (principal); C21.0 Malignant neoplasm of anus, unspecified; D69.6 Thrombocytopenia, unspecified
CPT/HCPCS: 78815; A9552

== ENCOUNTER 2024-05-13 07:42 | Outpatient (RCR) | payer MEDICARE, OTHER, SELFPAY ==
--- OUTSIDE RECORDS SUMMARY | 2024-05-13 07:46 | XMS_ITS | CCD ---
Author Organization [facility] Care Team Providers Care Staple Laster Name Role Phone Lizbeth Penaloza Primary Care Provider Lizbeth Penaloza Attending Provider [phone] Unavailable Primary Care Provider Unavailabl e Victoriano Chandler MD Unavailable [phone] Edagr Galloway Unavailable RUBIN Penaloza Primary Care Provider SADE Galloway Attending Provider MD Jun España Attending Provider Times, Yoselin Referring Provider Unavailable Unknown, Referring Provider Unavailable Unav ailable Unavailable Unavailable MD Jun España Attending Provider Times, Yoselin Referring Provider Unavailable MD Jun España Attending Provider Times, Yoselin Referring Provider Unavailable RUBIN Penalozanifer Primary Care Provider MD Jun España Attending Provider Times, Yoselin Referring Provider Unavailable UNKNOWN, PCP Referring Unavailable UNKNOWN, PCP Primary Care Unavailable Dr. GRACY MCLAUGHLIN Attending Unavailable UNKNOWN, PCP Primary Care Unavailable Times, MD Yoselin Cloud Attending Unavailab JUJU Alonso Primary Care Physician Victoriano Chandler MD Unavailable Times Yoselin CARTER Unavailable [phone] Nahum Jones Attending Unavailable NONE, XXXX Referring Unavailable Richard CARTER, PhD, Mitra Unavailable Soltesz PharmD, Camron Unavailable [phone] Vinson mandolin repairer, Naheed Unavailable Unavailable Vinson mandolin repairer, Naheed Unavailable Unavailable Zevchek mandolin repairer, Amber Unavailable Unavailabl e Giles mandolin repairer, Gabby Unavailable [phone] Mery MAMMOGRAPHY TECH-PSYCHOLOGIST [facility], Dana Unavailable [phone] Soltesz PharmD, Camron Unavailable [phone] Zevchek mandolin repairer, Amber Unavailable Unavailabl e Giles mandolin repairer, Gabby Unavailable [phone] PROVIDER, UNKNOWN Admitting Unavailable PROVIDER, UNKNOWN Attending [...] LARA Referring Unavailable PROVIDER, UNKNOWN Attending Unavailable JAMESON RENAE Admitting Unavailable BRELL, LARA Referring Unavailable PROVIDER, [...] Admitting Unavailable TIMES, YOSELIN L. Referring Unavailable DANNY, LARA Referring Unavailable PROVIDER, UNKNOWN Attending Unavailable [...] L. Referring Unavailable BRELL, LARA Referring Unavailable RENAE, JAMESON Admitting Unavailable RENAE, JAMESON Attending Unavailable PROVIDER, UNKNOWN Attending Unavailable PROVIDER, UNKNOWN Admitting Unavailable Times MD, Yoselin L. Unavailable Mery STUART-Dana JEAN-BAPTISTE Unavailable [phone] DO Chey Infante Attending Provider Chey Infante Admitting Unavailable Chey Infante Attending Unavailable Furlong Gio WATT Primary Care Provider RICKLONGGIO Attending Unavailable FURLONG, GIO G Primary Care Unavailable CHEY INFANTE Attending Unavailable FURLONG, GIO Mian Referring Unavailable FURLONG, GIO G Primary Care Unavailable DARCY MENA Attending Unavailable FURLONG, GIO G Referring Unavailable FURLONG, GIO G Primary Care Unavailable FURLONG, GIO G Attending Unavailable FURLONG, GIO G Referring Unavailable FURLONG, GIO G Primary Care Unavailable FURLONG, GIO G Attending Unavailable FURLONG, GIO G Referring Unavailable FURLONG, GIO G Primary Care Unavailable FURLONG, GIO G Referring Unavailable FURLONG, GIO G Primary Care Unavailable Unavailable Unavailable Unavailable Allergies Allergy Classification Reported Allergen(s) Allergy Type Date of Onset Reaction(s) Facility (1 source) No Known Medication Allergies; Translations: [No Known Medication Allergies] Propensity to adverse reactions (disorder) [facility] Repository (20 sources) Lactase; Translations: [LACTASE] [facility] Mold Extract Drug Allergy 5 [facility] (20 sources) Pollen; Translations: [POLLEN EXTRACT] Propensity to adverse reactions to drug 6 [facility] (20 sources) HYDROmorphone; Translations: [HYDROMORPHONE] Drug Allergy 3 Rash [facility] (1 source) Mold; Translations: [MOLDS] Propensity to adverse reactions to drug (disorder) 5 [facility] Repository Medications Current Medications Medication Drug Class(es) Dates Sig (Normalized) Sig (Original) acetaminophen 325 mg / oxyCODONE hydrochloride 5 mg oral tablet (2 sources) Opioid Agonist Start: 07-19-2021 End: 07-19-2021 oxyCODONE-acetami nophen (PERCOCET) 5-325 mg per tablet atropine sulfate 0.025 mg / diphenoxylate hydrochloride 2.5 mg oral tablet (3 sources) Anticholinergic, Cholinergic Muscarinic Antagonist, Antidiarrheal Start: 11-23-2022 End: 12-01-2022 take 1 tablet by mouth twice daily as needed for diarrhea diphenoxylate-atr opine (Lomotil) 2.5-0.025 MG per tablet Indications: Anal [...] 5 mg oral tablet (20 sources) Start: 01-25-2023 take 1 tablet by mouth twice daily busPIRone (BUSPAR) 5 mg tablet 1 tablet 2 TIMES DAILY (route: oral) 01/25/2023 Active Start: 11-23-2022 End: 01-01-2023 take 1 tablet [...] days. 10 Tablet 0 11/02/2022 11/07/2022 Active famotidine 20 mg oral tablet (20 sources) Histamine-2 Receptor Antagonist Start: 07-29-2023 End: 10-30-2023 take 1 tablet by mouth twice daily as needed for gastroesophageal reflux disease famotidine (PEPCID) 20 mg tablet Take 1 tablet (20 mg total) by mouth 2 (two) times a day as needed for heartburn. 60 tablet 2 10/30/2023 Active Start: 11-13-2022 Famotidine (PF ) (PEPCID) 20 MG/2ML injection Start: 10-31-2022 take [...] mg oral capsule (20 sources) Antihistamine Start: 12-23-2023 take 1 capsule by mouth once daily as needed hydrOXYzine (VISTARIL) 25 mg capsule Take 1 capsule (25 mg total) by mouth nightly as needed for itching. 30 capsule 5 12/23/2023 Active Start: 01-25-2023 End: 12-21-2023 take 1 capsule by mouth once daily at bedtime as needed hydrOXYzine pamoate (VISTARIL) 25 MG capsule TAKE 1 CAPSULE BY MOUTH EVERY DAY AT BEDTIME NEEDED 30 Capsule 11/19/2023 Active Start: 10-31-2022 hydrOXYzine (A TARAX) tablet Start: 06-09-2021 End: 01-31-2023 take 1 capsule by mouth at bedtime as needed hydrOXYzine pamoate (VISTARIL) 25 MG capsule Take 1 Capsule by mouth at bedtime as needed. 30 Capsule 0 01/01/2023 Active ibuprofen 400 mg oral tablet (20 sources) Nonsteroidal Anti-inflammatory Drug take 1 tablet by mouth every eight hours as needed for pain ibuprofen (MOTRIN) 400 mg tablet Indications: pain Take 1 tablet (400 mg total) by mouth every 8 (eight) hours as needed for pain Indications: pain. Active ibuprofen (Ibupr ofen 100 Gordon Strength) [...] as needed. 30 g 1 08/28/2022 Active Start: 08-28-2022 End: 10-30-2023 lidocaine (XYLOCAINE) 5 % oi ntment Apply topically. 08/28/2022 10/30/2023 Discontinued lidocaine 25 mg/ml / prilocaine 25 mg/ml topical cream (20 sources) Antiarrhythmic, Amide Local Anesthetic Start: 10-31-2022 lidocaine-prilocaine (E mLA) 2.5-2.5 % cream Start: 10-25-2022 lidocaine-pril ocaine (E mLA) 2.5-2.5 % cream Apply thin layer to affected area. 30 g 3 10/25/2022 Active Start: 10-25-2022 End: 10-18-2023 lidocaine-prilocaine (EMLA) cream APPLY THIN LAYER TO AFFECTED AREA DIRECTED 10/25/2022 10/18/2023 Discontinued (Duplicate Listing) loperamide hydrochloride 2 mg oral capsule (1 source) Opioid Agonist Start: 10-31-2022 loperamide (IMODIUM) capsule loratadine 10 mg oral tablet (9 sources) loratadine (CLARITIN) 10 MG tablet 1 Tablet. 0 Active LORazepam 0.5 mg oral tablet (20 sources) Benzodiazepine Start: 04-23-2024 take 1 tablet by mouth every six hours as needed for anxiety and anxiety and anxiety LORazepam (ATIVAN) 0.5 mg tablet Indications: Anxiety Take 1 tablet (0.5 mg total) by mouth every 6 (six) hours as needed for anxiety. 30 tablet 1 04/23/2024 Active Start: 10-11-2023 take 1 tablet by lory th every six hours as needed for anxiety LORazepam (ATIVAN) 0.5 mg tablet Indications: Anxiety TAKE 1 TABLET BY MOUTH EVERY 6 HOURS NEEDED FOR ANXIETY. 30 tablet 1 10/11/2023 Active Start: 09-11-2023 End: 04-22-2024 take 1 tablet by mouth every six hours as needed for anxiety and anxiety and anxiety LORazepam (ATIVAN) 0.5 mg tablet Indications: Anxiety Take 1 tablet (0.5 mg total) by mouth every 6 (six) hours as needed for anxiety. 30 tablet 1 02/29/2024 04/22/2024 Discontinued (Reorder) Start: 01-25-2023 End: 09-11-2023 take 1 tablet by mouth every four hours as needed LORazepam (ATIVAN) 0.5 mg tablet 1 tablet NEEDED EVERY 4 HOURS (route: oral) 01/25/2023 09/11/2023 Discontinued (Reorder) 24 hr nicotine 0.583 mg/hr transdermal system [...] 07-19-2021 ondansetron (ZOFRAN) 4 MG/2M L injection pantoprazole 20 mg delayed release oral tablet (20 sources) Proton Pump Inhibitor Start: 12-07-2022 End: 10-30-2023 take 1 tablet by mouth once daily as needed pantoprazole (PROTONIX) 20 mg EC tablet 20 mg NEEDED DAILY (route: oral) 03/08/2023 Active peg 3350-sod sulf,[id number]-zia-eky 178.7-7.3-0.5 gram recon soln (1 source) Start: 08-29-2023 End: 08-30-2023 peg 3350-sod sulf,ajoa-uuo-cuy 178.7-7.3-0.5 gram recon soln Take 1 kit by mouth once daily for 1 dose. Please see instructional sheet given by physicians office. 1 each 08/29/2023 08/30/2023 Active petrolatum 0.41 mg/mg topical ointment (1 source) Start: 2022 aquaphor ointment prochlorperazine 10 mg oral tablet (20 sources) Phenothiazine Start: 11-23-2022 End: 12-08-2022 take 1 tablet by mouth every six hours as needed for nausea prochlorperazine (COMPAZINE) 10 MG tablet Take 1 Tablet by mouth every 6 hours as needed for Nausea for up to 14 days. 56 Tablet 11/23/2022 Active sennosides, nursing home 8.6 mg oral tablet (20 sources) Start: 08-28-2022 take 1 tablet by mouth once daily as needed for constipation senna (SENOKOT) 8.6 MG tablet Take 1 Tablet by mouth daily as needed for Constipation. 30 Tablet 08/28/2022 Active sertraline 50 mg oral tablet (20 sources) Serotonin Reuptake Inhibitor Start: 12-31-2023 sertraline (ZOLOFT) 50 mg tablet TAKE 1 AND 1/2 TABLETS BY MOUTH IN THE MORNING 135 tablet 1 12/31/2023 Active Start: 10-01-2023 End: 12-31-2023 take 1.5 tablets by mouth in the morning sertraline (ZOLOFT) 50 mg tablet Take 1.5 tablets (75 mg total) by mouth in the morning. 45 tablet 2 10/01/2023 12/31/2023 Discontinued Start: 10-31-2022 End: 01-01-2023 take 1 tablet by mouth once daily sertraline (ZOLOFT) 50 MG tablet TAKE 1 TABLET BY MOUTH EVERY DAY 30 Tablet 01/01/2023 Active Start: 12-02-2020 take 1 tablet by lory th once daily Sertraline (Zoloft) 100 mg Tablet Active 100 MG PO Daily October 26, 2021 12:00am take 1.5 tablets by mouth in the morning sertraline (ZOLOFT) 50 mg tablet Take 1.5 tablets (75 mg total) by mouth in the morning. Active traMADol hydrochloride 50 mg oral tablet (1 source) Opioid Agonist Start: 07-19-2021 End: 07-22-2021 take 1 tablet by mouth every eight hours as needed for pain tramadol (ULTRAM) 50 MG tablet Indications: Perianal mass Take 1 Tablet by mouth every 8 hours as needed for Pain for up to 3 days. 9 Tablet 0 07/19/2021 07/22/2021 Active divalproex sodium 250 mg delayed release oral tablet (6 sources) Mood Stabilizer, Anti-epileptic Agent Start: 03-18-2024 End: 04-10-2024 take 1 tablet by mouth in the morning, then take 1 tablet by mouth at bedtime divalproex (DEPAKOTE) 250 mg EC tablet TAKE 1 TABLET (250 MG TOTAL) BY MOUTH IN THE MORNING AND 1 TABLET (250 MG TOTAL) BEFORE BEDTIME. 180 tablet 1 04/10/2024 Active Completed/Discontinued Medications Medication Drug Class(es) Dates [...] (Tylenol) 60 Tablet 0 08/28/2022 09/07/2022 Active [id number] 200 actuat albuterol 0.09 mg/actuat metered dose inhaler (20 sources) beta2-Adrenergic Agonist Start: 10-31-2022 take 2 puff(s) by inhalation every four hours as needed 2 Puff, Inhalation, EVERY 4 HOURS PRN, Starting on Sun10/31/22 at 6, Until Discontinued, Wheezing Start: 10-31-2022 take 2 [...] ONCE, 1 dose, On Sun10/31/22 at 2100 midodrine hydrochloride 10 mg oral tablet (17 sources) alpha-Adrenergic Agonist Start: 07-03-2023 End: 03-18-2024 take 1 tablet by mouth twice daily midodrine (PROAMATINE) 10 mg tablet TAKE 1 TABLET BY MOUTH TWICE A DAY FOR HYPOTENSION 07/03/2023 03/18/2024 Discontinued (Therapy completed) mitomycin (MUTAMYCIN) 14 mg in 28 mL iv push (1 source) Start: 11-13-2022 End: 11-13-2022 mitomycin (MUTAMYCIN) 14 mg in 28 mL iv push mitomycin (MUTAMYCIN) 19 mg iv push (1 source) Start: 10-16-2022 End: 10-16-2022 mitomycin (MUTAMYCIN) 19 mg iv push naloxone hydrochloride 40 mg/ml nasal spray (20 sources) Opioid Antagonist Start: 02-15-2023 End: 08-29-2023 naloxone (NARCAN) 4 mg/actuation spray,non-aerosol nasal spray Per instructions DIRECTED (route: nasal) 02/15/2023 08/29/2023 Discontinued (Patient Stopped On Own) Start: 11-02-2022 naloxone 4 mg/ 0.1 mL nasal liquid Use 1 [place] in one nostril (alternate sides) as needed for Drug Overdose for up to 1 dose. Every 2-3 mins. until help arrives. 2 Each 1 11/02/2022 Active Start: 11-02-2022 End: 08-29-2023 naloxone (NARCAN) 4 mg/actua tion spray,non-aerosol nasal spray 1 spray (4 mg total). 11/02/2022 08/29/2023 Discontinued (Patient Stopped On Own) Start: 07-19-2021 naloxone (NARC AN) 0.4 MG/ML injection naproxen 500 mg oral tablet (20 sources) [...] in NS 50 mL ivpb (Batched Premix) oxyCODONE hydrochloride 5 mg oral tablet (18 sources) Opioid Agonist Start: 01-25-2023 End: 08-29-2023 take 1 tablet by mouth every six hours as needed oxyCODONE (ROXICODONE) 5 mg immediate release tablet 5 mg NEEDED EVERY 6 HOURS (route: oral) 01/25/2023 08/29/2023 Discontinued (Patient Stopped On Own) Start: 11-23-2022 End: 12-08-2022 take 1 tablet [...] days. 36 Tablet 0 11/02/2022 11/05/2022 Active potassium chloride 10 meq extended release oral tablet (17 sources) Start: 07-29-2023 End: 03-18-2024 potassium chloride (K-TAB,KLOR-CON) 10 MEQ CR tablet Take 1 tablet (10 mEq total) by mouth in the morning. 07/29/2023 03/18/2024 Discontinued (Therapy completed) silver sulfADIAZINE 10 mg/ml topical cream (20 sources) Sulfonamide Antibacterial Start: 01-25-2023 End: 10-30-2023 silver sulfADIAZINE (SILVADENE, SSD) 1 % cream Per instructions 2 TIMES DAILY (route: topical) 01/25/2023 10/30/2023 Discontinued (Therapy completed) Start: 11-08-2022 silver sulfadi azine (SILVADENE) 1 % cream Apply topically 2 times daily. Apply thin layer to affected area. Mix equal parts of Lidocaine and Silvadene 2-3 times a day 85 g 3 11/08/2022 Active 50 ml sodium chloride 9 mg/m l [...] Date Documented Da te Episodic/Chronic Administrative/social admission (16 sources) Patient encounter status; Translations: [Other specified counseling] Onset: 3 10-26-2021 Episodic Anxiety disorders (20 sources) Generalized anxiety disorder; Translations: [Generalized anxiety disorder] Onset: 3 08-25-2022 Chronic Aortic; peripheral; and visceral artery aneurysms (2 sources) Thoracic aortic aneurysm without rupture; Translations: [Thoracic aortic aneurysm without rupture, unspecified part ([facility])] 03-18-2024 Chronic Cancer of rectum and anus (20 sources) Malignant tumor of anus; Translations: [Malignant neoplasm of anus, unspecified] Onset: 3 Chronic Cancer; other and unspecified primary (1 source) Carcinoma in situ, unspecified; Translations: [Carcinoma in situ, unspecified] Onset: 3 Chronic Complications of surgical procedures or medical care (20 sources) Anemia due to antineoplastic chemotherapy; 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] Onset: 3 08-09-2023 Chronic Diverticulosis and diverticulitis (20 sources) Diverticulitis of large intestine; Translations: [Diverticulitis of large intestine with perforation and abscess without bleeding] Onset: 7 08-25-2022 Chronic Epilepsy; convulsions (3 sources) Seizure; Translations: [Unspecified convulsions] Onset: 4 03-18-2024 Episodic Esophageal disorders (20 sources) Gastroesophageal reflux disease; Translations: [Gastro-esophageal reflux disease without esophagitis] 08-09-2023 Chronic Genitourinary symptoms and ill-defined conditions (3 sources) Dysuria; Translations: [Dysuria] Onset: 2 Resolved: 2 Episodic Immunizations and screening for infectious disease (2 sources) Needs influenza immunization; Translations: [Encounter for immunization] Onset: 4 03-18-2024 Episodic Maintenance chemotherapy; radiotherapy (1 source) Patient encounter status; Translations: [Encounter for antineoplastic chemotherapy] 10-16-2022 Chronic Mood disorders (20 sources) Recurrent major depressive episodes, mild ; Translations: [Major depressive disorder, recurrent, mild] Onset: 4 08-09-2023 Chronic Nutritional deficiencies (20 sources) Vitamin D deficiency; Translations: [Vitamin D deficiency, unspecified] Onset: 2 08-25-2022 Chronic Osteoarthritis (2 sources) Osteoarthritis of multiple joints ; Translations: [Polyosteoarthritis, unspecified] Chronic Other aftercare (3 sources) Under care of palliative care physician; Translations: [Encounter for palliative care] 10-19-2022 Episodic Other aftercare (2 sources) High risk drug monitoring status; Translations: [senior living (current) use of opiate analgesic] 11-23-2022 Episodic [...] Translations: [Neoplasm related pain (acute) (chronic)] Onset: 3 Chronic Other non-epithelial cancer of skin (15 sources) Malignant neoplasm of gastrointestinal tract; 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] Onset: 3 Episodic Other nutritional; endocrine; and metabolic disorders (3 sources) Decreased body mass index; Translations: [Body mass index (BMI) 19.9 or less, adult] 12-07-2022 Episodic Other screening for suspected conditions (not mental disorders or infectious disease) (8 sources) Electrocardiogram abnormal; Translations: [Abnormal electrocardiogram [ECG] [EKG]] Onset: 4 Episodic Other skin disorders (2 sources) Disorder of perianal skin; Translations: [Disorder of the skin and subcutaneous tissue, unspecified] Episodic Other upper respiratory disease (20 sources) Seasonal allergy; Translations: [Other seasonal allergic rhinitis] Onset: 3 08-25-2022 Chronic Residual codes; unclassified (4 sources) Body mass index 20-24 - normal; Translations: [Body mass index (BMI) 20.0-20.9, adult] Episodic Screening and history of mental health and substance abuse codes (1 source) Encounter for screening for depression; Translations: [Encounter for screening for depression] Onset: 4 Episodic Substance-related disorders (20 sources) Heavy tobacco smoker; Translations: [Nicotine dependence, cigarettes, uncomplicated] Onset: 7 08-25-2022 Chronic Thyroid disorders (4 sources) Multinodular goiter; Translations: [Nontoxic multinodular goiter] Chronic Unclassified (3 sources) NO SHOW 12-20-2022 Unclassified (1 source) Thoracic aortic aneurysm, without rupture, unspecified; Translations: [Thoracic aortic aneurysm, without rupture, unspecified] Onset: 4 Unclassified (1 source) Annual Exam Onset: 4 Unclassified (1 source) new patient Onset: 4 Past or Other Problems Problem Classification Problem Date Documented Da te Episodic/Chronic Anal and rectal conditions (20 sources) Perianal lump; Translations: [Other specified diseases of anus and rectum] Onset: 2 Episodic Diseases of white blood cells (20 sources) Febrile neutropenia; Translations: [Neutropenia, unspecified] Onset: 3 Resolved: 3 2022 Chronic E Codes: Adverse effects of medical drugs (1 source) Adverse effect of antineoplastic and immunosuppressive drugs, initial encounter; Translations: [Adverse effect of antineoplastic and immunosuppressive drugs, initial encounter] Onset: 4 Episodic Fever of unknown origin (2 sources) Fever; Translations: [Fever, unspecified] Onset: 3 10-31-2022 Episodic Fluid and electrolyte disorders (20 sources) Dehydration; Translations: [Hypokalemia] Onset: 3 08-09-2023 Episodic Fracture of upper limb (1 source) Displaced fracture of shaft of fifth metacarpal bone, left hand, initial encounter for closed fracture Onset: 2 Resolved: 2 Episodic Mood disorders (20 sources) Mood disorders Onset: 4 Resolved: 4 10-30-2023 Nausea and vomiting (4 sources) Nausea and vomiting; Translations: [Nausea with vomiting, unspecified] Onset: 3 11-23-2022 Episodic Other aftercare (1 source) senior living (current) use of opiate analgesic; Translations: [senior living (current) use of opiate analgesic] Onset: 3 [...] encounter Onset: 2 Resolved: 2 Episodic Other non-traumatic joint disorders (12 sources) Multiple joint pain; Translations: [Pain in unspecified joint] Onset: 4 10-30-2023 Episodic Other nutritional; endocrine; and metabolic disorders (1 source) Body mass index (BMI) 19.9 or less, adult; Translations: [Body mass index (BMI) 19.9 or less, adult] Onset: 3 Episodic Other upper respiratory infections (1 source) Acute upper respiratory infection, unspecified; Translations: [Acute upper respiratory infection, unspecified] Onset: 3 Episodic Pulmonary heart disease (20 sources) H/O: pulmonary embolus; Translations: [Personal history of pulmonary embolism] Onset: 4 08-09-2023 Episodic Results Test Name Value Interpretation Reference Range [facility]il [facility] COMPREHENSIVE METABOLIC PANE Scotty 03-18-2024 Albumin [Mass/Vol] 4.9 g/dL Normal 3.2-5.3 [facility] Comment on above: Performed By: #### Antoinette WAGNER, [id number] #### [facility] ([id number]) [address], [address] [place] [address] ALP [Catalytic activity/Vol] 151 U/L High 39-130 [facility] Comment on above: Performed By: #### Antoinette WAGNER [id number] #### [facility] ([id number]) [address], [address] [place] [address] ALT [Catalytic activity/Vol] 14 U/L Normal 0-31 [facility] Comment on above: Performed By: #### Antoinette WAGNER [id number] #### [facility] ([id number]) [address], [address] [place] [address] Anion gap [Moles/Vol] 12 mmol/L Normal 5-15 [facility] Comment on above: Performed By: #### Antoinette WAGNER [id number] #### [facility] ([id number]) [address], [address] [place] [address] AST [Catalytic activity/Vol] 18 U/L Normal 0-41 [facility] Comment on above: Performed By: #### Antoinette WAGNER [id number] #### [facility] ([id number]) [address], [address] [place] [address] Bilirubin [Mass/Vol] 0.8 mg/dL Normal 0.3-1.2 [facility] Comment on above: Performed By: #### Antoinette WAGNER [id number] #### [facility] ([id number]) [address], [address] [place] [address] Calcium [Mass/Vol] 10.0 mg/dL Normal 8.5-10.5 [facility] Comment on above: Performed By: #### Antoinette WAGNER [id number] #### [facility] ([id number]) [address], [address] [place] [address] Chloride [Moles/Vol] 104 mmol/L Normal 98-109 [facility] Comment on above: Performed By: #### C BERNARD, 80284-5 #### [facility] ([id number]) [address], [address] [place] [address] CO2 [Moles/Vol] 24 mmol/L Normal 22-32 [facility] Comment on above: Performed By: #### C BERNARD, [id number] #### [facility] ([id number]) [address], [address] [place] [address] Creatinine [Mass/Vol] 1.38 mg/dL High 0.40-1.00 [facility] Comment on above: Result Comment: METH OD TRACEABLE TO IDMS STANDARD Performed By: #### C BERNARD, [id number] #### [facility] ([id number]) [address], [address] [place] [address] GFR/1.73 sq M.predicted among non-blacks MDRD (S/P/Bld) [Vol rate/Area] 42 mL/min/{1.73_m2} Low >59 [facility] Comment on above: Result Comment: Reported eGFR is based on the CKD-EPI 2020 equation that does not use a race coefficient. Performed By: #### C BERNARD, [id number] #### [facility] ([id number]) [address], [address] [place] [address] Glucose [Mass/Vol] 101 mg/dL High 65-99 [facility] Comment on above: Performed By: #### C BERNARD, 44183-4 #### [facility] ([id number]) [address], [address] [place] [address] Potassium [Moles/Vol] 4.1 mmol/L Normal 3.5-5.0 [facility] Comment on above: Performed By: #### C BERNARD, 36252-6 #### [facility] ([id number]) [address], [address] [place] [address] Protein [Mass/Vol] 7.9 g/dL Normal 6.0-8.0 [facility] Comment on above: Performed By: #### Antoinette WAGNER, 98080-8 #### [facility] ([id number]) [address], [address] [place] [address] Sodium [Moles/Vol] 140 mmol/L Normal 134-146 [facility] Comment on above: Performed By: #### Antoinette WAGNER, 53564-4 #### [facility] ([id number]) [address], [address] [place] [address] Urea nitrogen [Mass/Vol] 23 mg/dL Normal 5-27 [facility] Comment on above: Performed By: #### Antoinette WAGNER, 45575-5 #### [facility] ([id number]) [address], [address] [place] [address] Comprehensive metabolic pane scotty 03-18-2024 Albumin [Mass/Vol] 4.9 g/dL 3.2 - 5.3 g/dL [facility] ALP [Catalytic activity/Vol] 151 U/L High 39 - 130 U/L [facility] ALT No additional P-5'-P [Catalytic activity/Vol] 14 U/L 0 - 31 U/L [facility] Anion gap [Moles/Vol] 12 mmol/L 5 - 15 mmol/L [facility] AST [Catalytic activity/Vol] 18 U/L 0 - 41 U/L [facility] Bilirubin [Mass/Vol] 0.8 mg/dL 0.3 - 1.2 mg/dL [facility] Calcium [Mass/Vol] 10 mg/dL 8.5 - 10.5 mg/dL [facility] Chloride [Moles/Vol] 104 mmol/L 98 - 109 mmol/L [facility] CO2 [Moles/Vol] 24 mmol/L 22 - 32 mmol/L [facility] Creatinine [Mass/Vol] 1.38 mg/dL High 0.40 - 1.00 mg/dL [facility] Comment on above: METHOD TRACEABLE TO [facility] STANDARD eGFR (CKD-EPI)non-race dependent 42 Low - PINF [facility] Comment on above: Reported eGFR is based on the CKD-EPI 2020 equation that does not use a race coefficient. Glucose [Mass/Vol] 101 mg/dL High 65 - 99 mg/dL [facility] Potassium [Moles/Vol] 4.1 mmol/L 3.5 - 5.0 mmol /L [facility] Protein [Mass/Vol] 7.9 g/dL 6.0 - 8.0 g/dL [facility] Sodium [Moles/Vol] 140 mmol/L 134 - 146 mmol/L [facility] Urea nitrogen [Mass/Vol] 23 mg/dL 5 - 27 mg/dL [facility] Lipid 1996 panelon 4 Cholesterol [Mass/Vol] 305 mg/dL High 150 - 200 mg/dL [facility] Cholesterol in HDL [Mass/Vol] 72 mg/dL 39 - PINF mg/dL [facility] Comment on above: HDL <40 mg/dL - High Risk HDL > or = 40mg/dL- Desirable HDL >60 mg/dL - Negative Risk Cholesterol in LDL [Mass/Vol] 195 mg/dL High NINF - 130 mg/dL [facility] Comment on above: LDL <100 mg/dL - Desirable LDL >160 mg/dL - High Risk Cholesterol in VLDL [Mass/Vol] 38 mg/dL High 0 - 30 mg/dL [facility] Cholesterol.total/Cho lesterol in HDL [Mass ratio] 4.2 {ratio} 1.0 - 5.0 [facility] Triglyceride [Mass/Vol] 188 mg/dL High 27 - 150 mg/dL [facility] Cholesterol [Mass/Vol] 305 mg/dL High 150-200 [facility] Comment on above: Performed By: #### Antoinette WAGNER, 17426-3 #### [facility] ([id number]) [address], [address] [place] [address] Cholesterol in HDL [Mass/Vol] 72 mg/dL Normal >39 [facility] Comment on above: Result Comment: HDL <40 mg/dL - High Risk HDL > or = 40mg/dL- Desirable HDL >60 mg/dL - Negative Risk Performed By: #### Antoinette WAGNER, 46652-6 #### [facility] ([id number]) [address], [address] [place] [address] Cholesterol in LDL [Mass/Vol] 195 mg/dL High <130 [facility] Comment on above: Result Comment: LDL <100 mg/dL - Desirable LDL >160 mg/dL - High Risk Performed By: #### Antoinette WAGNER, 62852-2 #### [facility] ([id number]) [address], [address] [place] [address] Cholesterol in VLDL [Mass/Vol] 38 mg/dL High 0-30 [facility] Comment on above: Performed By: #### Antoinette WAGNER, 98006-0 #### [facility] ([id number]) [address], [address] [place] [address] CHOLESTEROL:HDL 4.2 Normal 1.0-5.0 [facility] Comment on above: Performed By: #### Antoinette WAGNER, 63893-8 #### [facility] ([id number]) [address], [address] [place] [address] Triglyceride [Mass/Vol] 188 mg/dL High 27-150 [facility] Comment on above: Performed By: #### C , 82105-9 #### [facility] ([id number]) [address] [place] [address] No Panel Informationon 03-18 Interpretation and review of laboratory results Abnormal [facility] Colonoscopyon 10-24-2023 [facility] Scotty 10-24-2023 L Specimen: [id number] Received: 10/24/23 Status: JOSEPHINE Lundy Num: [id number] Spec Type: Surgical Subm Dr: Chey Infante DO Tissues: A Colon Biopsy (PERIANAL TISSUE BX) Procedures: HE/2, Gross/Micro L4 Age/ Patient Sex Location Account Attending Physician Amber Maldonado 62/F [facility] [id number] Chey Infante DO SPEC NUM: [id number] RECD: 10/24/23 STATUS: JOSEPHINE LUNDY NUM: [id number] NEHEMIAS: 10/24/[address]: Chey Infante DO ENTERED: 10/24/23 [facility] DR: Jose Morejon SPEC TYPE: Surgical DEPT: FAHEEM AVILA ORDERED: HE/2, Gross/Micro L4 ORDERED: HE/2, Gross/Micro L4 Pathological Diagnosis Perianal tissue biopsy: -Multiple small fragments of benign squamous mucosa of the anal canal type with mild nonspecific squamous acanthosis -No evidence of malignancy, chronic inflammation or secondary infection, or any obvious squamous dysplasia identified Clinical Information Recurrent anal squamous cell carcinoma, diverticulosis Gross Description Received in formalin labeled with the patient's name, date of and perianal tissue BX are 4 pale agarwal mucosal tissue fragments measuring in aggregate 0.9 x 0.2 x 0.1 cm, entirely submitted in A1. Microscopic Description Microscopic examinations are performed supporting the above interpretation Specimen: [id number] Received: 10/24/23 Status: JOSEPHINE Lundy Num: [id number] Spec Type: Surgical Subm Dr: Chey Infante DO Tissues: A Colon Biopsy (PERIANAL TISSUE BX) Procedures: HE/2, Gross/Micro L4 Patient: CherylAmber [id number] (Continued) Specimen: [id number] Received: 10/24/23 (Continued) Signed (signature on file) Jose Diaz MD 10/26/23 1919 Specimen: [id number] Received: 10/24/23 Status: JOSEPHINE Lundy Num: [id number] Spec Type: Surgical Subm Dr: Chey Infante DO Tissues: A Colon Biopsy (PERIANAL TISSUE BX) Procedures: HE/[place], Gross/Micro L4 Patient: Amber Maldonado [id number] (Continued) Specimen: [id number] Received: 10/24/23 (Continued) CPT Codes 31237 Specimen: [id number] Received: 10/24/23 Status: JOSEPHINE Lundy Num: [id number] Spec Type: Surgical Subm Dr: Chey Infante DO Tissues: A Colon Biopsy (PERIANAL TISSUE BX) Procedures: HE/2, Gross/Micro L4 Patient: Amber Maldonado [id number] (Continued) Signed (signature on file) Jose Diaz MD 10/26/231918 Normal [facility] Surgical PathologyOrdered By : Charo Holland on 10-24-2023 [employer] Progress Noteson 02-08-2023 [employer]aker Authentication Interface Message Text Normal [facility] Telephone Encounteron 2022 Interior Plant Caretaker Authentication Interface Message Text Normal [facility] Plant Caretaker Authentication Interface Message Text Dr Ellis returning providers call requesting a call back. Can be reached at [phone]. Normal [facility] Telephone Encounteron 2022 Interior Plant Caretaker Authentication Interface Message Text Dr. Darcy Ellis with [facility] calling requesting a return call regarding mutual patient. Patient is currently inpatient at [place] and Dr. Ellis would like to update Dr. Smith. Can be reached at [phone]. Thank you. Normal [facility] Progress Noteson 01-11-2023 Interior [employer] Caretaker Authentication Interface Message Text Pt scheduled for video visit. Not logged in x20 minutes. Pt called x2. Voicemail x2. Phone number left to call and reschedule. This encounter was opened in error. Patient was a No-Show. Please disregard. Normal [facility] Telephone Encounteron 2022 Interior Plant Caretaker Authentication Interface Message Text Normal [facility] Interior Plant Caretaker Authentication Interface Message Text Normal [facility] Progress Noteson 12-29-2022 Interior Plant Caretaker Authentication Interface Message Text This encounter was opened in error. Patient was a No-Show. Please disregard. Called patient x2. No answer, unable to leave VM as VM box is full. Normal [facility] Telephone Encounteron 2022 Interior Plant Caretaker Authentication Interface Message Text Normal [facility] Progress Noteson 12-19-2022 Interior Plant Caretaker Authentication Interface Message Text Pt called x2. Voicemail left x2. This encounter was opened in error. Patient was a No-Show. Please disregard. Normal [facility] Progress Noteson 12-07-2022 Interior Plant Caretaker Authentication Interface Message Text Normal [facility] Interior Plant Caretaker Authentication Interface Message Text Normal [facility] Interior Plant Caretaker Authentication Interface Message Text Normal [facility] Interior Plant Caretaker Authentication Interface Message Text Normal [facility] Interior Plant Caretaker Authentication Interface Message Text Normal [facility] Progress Noteson 12-04-2022 Interior Plant Caretaker Authentication Interface Message Text Normal [facility] Telephone Encounteron 2022 Interior Plant Caretaker Authentication Interface Message Text Spoke to pt, advised sertraline rx was sent to [facility] in [place], [facility]one [facility]. She requests buspirone be sent to her [facility], med pended to provider. Normal [facility] Interior Plant Caretaker Authentication Interface Message Text Normal [facility] Progress Noteson 12-01-2022 Interior Plant Caretaker Authentication Interface Message Text Normal [facility] Progress Noteson 11-29-2022 Interior Plant Caretaker Authentication Interface Message Text Normal [facility] No Panel Informationon 11-27 Course Elapsed [...] Date 50.4 Gy [facility] Point ID Shamika Huertaro[facility] ealth Reference Point Session Dosage Given 1.8 Gy [facility] PANELon 11-07 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 This test has not been cleared or approved by the U.S. Food and Drug Administration; however, the FDA has determined that such clearance or approval is not necessary. Performed By: #### P MP ####S PATHOLOGY [id number] [place] [address], AMPHETAMINE Negative Normal Cutoff:1000 [facility] Comment on above: Order Comment: Scree n results are reported as positive (at or above the cutoff) or negative (below the cutoff).The LC-MS/MS testing (if applicable) was developed and its performance characteristics determined by [facility] in a manner consistent with CLIA requirements. This test has not been cleared or approved by the U.S. Food and Drug Administration; however, the FDA has determined that such clearance or approval is not necessary. Performed By: #### P MP ####[facility] [id number] [place], [place], Benzodiazepines Ql (U) Negative Normal Cutoff: 200 [facility] Comment on above: Order Comment: Scree n results are reported as positive (at or above the cutoff) or negative (below the cutoff).The LC-MS/MS testing (if applicable) was developed and its performance characteristics determined by [facility] in a manner consistent with CLIA requirements. This test has not been cleared or approved by the U.S. Food and Drug Administration; however, the FDA has determined that such clearance or approval is not necessary. Performed By: #### P MP ####[facility] [id number] [place], [place], COCAINE METABOLITE Negative Normal Cutoff: 300 [facility] Comment on above: Order Comment: Scree n results are reported as positive (at or above the cutoff) or negative (below the cutoff).The LC-MS/MS testing (if applicable) was developed and its performance characteristics determined by [facility] in a manner consistent with CLIA requirements. This test has not been cleared or approved by the U.S. Food and Drug Administration; however, the FDA has determined that such clearance or approval is not necessary. Performed By: #### P MP ####[facility] PATHOLOGY [id number] [place], [place], CREATININE, URINE 173 mg/dL Normal 10-300 [facility] Comment on above: Order Comment: Scree n results are reported as positive (at or above the cutoff) or negative (below the cutoff).The LC-MS/MS testing (if applicable) was developed and its performance characteristics determined by [facility] in a manner consistent with CLIA requirements. This test has not been cleared or approved by the U.S. Food and Drug Administration; however, the FDA has determined that such clearance or approval is not necessary. Performed By: #### P MP ####[facility] PATHOLOGY [id number] [place], [place], FENTANYL Negative Normal Cutoff: 1 [facility] Comment on above: Order Comment: Scree n results are reported as positive (at or above the cutoff) or negative (below the cutoff).The LC-MS/MS testing (if applicable) was developed and its performance characteristics determined by [facility] in a manner consistent with CLIA requirements. This test has not been cleared or approved by the U.S. Food and Drug Administration; however, the FDA has determined that such clearance or approval is not necessary. Performed By: #### P MP ####[facility] PATHOLOGY [id number] [place], [place], Methadone Ql (U) Negative Normal Cutoff: 300 [facility] Comment on above: Order Comment: Scree [...] not necessary. Performed By: #### P MP ####[facility] PATHOLOGY [id number] [place], [place], NORBUPRENORPHINE Negative Normal Cutoff: 5 The [...] not necessary. Performed By: #### P MP ####[facility] PATHOLOGY [id number] [place], [place], OPIATE Negative Normal Cutoff: 300 [facility] Comment on above: Order Comment: Scree n results are reported as positive (at or above the cutoff) or negative (below the cutoff).The LC-MS/MS testing (if applicable) was developed and its performance characteristics determined by [facility] in a manner consistent with CLIA [...] and drugs. Performed By: #### P MP ####[facility] PATHOLOGY [id number] [place], [place], OXYCODONE Positive Abnormal Cutoff: 100 [facility] Comment on above: Order Comment: Scree n results are reported as positive (at or above the cutoff) or negative (below the cutoff).The LC-MS/MS testing (if applicable) was developed and its performance characteristics determined by [facility] in a manner consistent with CLIA requirements. This test has not been cleared or approved by the U.S. Food and Drug Administration; however, the FDA has determined that such clearance or approval is not necessary. Result Comment: Oxyc odone and metabolites of Oxycodone (Oxymorphone, Noroxycodone, and Noroxymorphone) are measured/detected in this assay method. Performed By: #### P MP ####S PATHOLOGY [id number] [place], [place], OXYCODONE CONFIRMATION Positive Abnormal Cutoff: 100 [facility] Comment on above: Order Comment: Scree n results are reported as positive (at or above the cutoff) or negative (below the cutoff).The LC-MS/MS testing (if applicable) was developed and its performance characteristics determined by [facility] in a manner consistent with CLIA requirements. This test has not been cleared or approved by the U.S. Food and Drug Administration; however, the FDA has determined that such clearance or approval is not necessary. Performed By: #### P MP ####[facility] PATHOLOGY [id number] [place] [address], OXYMORPHONE CONFIRMATION Positive Abnormal Cutoff: 100 [facility] Comment on above: Order Comment: Scree n results are reported as positive (at or above the cutoff) or negative (below the cutoff).The LC-MS/MS testing (if applicable) was developed and its performance characteristics determined by [facility] in a manner consistent with CLIA requirements. This test has not been cleared or approved by the U.S. Food and Drug Administration; however, the FDA has determined that such clearance or approval is not necessary. Performed By: #### P MP ####[facility] PATHOLOGY [id number] [place], [place], THC Positive Abnormal Cutoff: 50 [facility] Comment on above: Order Comment: Scree n results are reported as positive (at or above the cutoff) or negative (below the cutoff).The LC-MS/MS testing (if applicable) was developed and its performance characteristics determined by [facility] in a manner consistent with CLIA requirements. This test has not been cleared or approved by the U.S. Food and Drug Administration; however, the FDA has determined that such clearance or approval is not necessary. Performed By: #### P MP ####[facility] PATHOLOGY [id number] [place], [place], THC CONFIRMATION Positive Abnormal Cutoff: 15 [facility] Comment on above: Order Comment: Scree n results are reported as positive (at or above the cutoff) or negative (below the cutoff).The LC-MS/MS testing (if applicable) was developed and its performance characteristics determined by [facility] in a manner consistent with CLIA requirements. This test has not been cleared or approved by the U.S. Food and Drug Administration; however, the FDA has determined that such clearance or approval is not necessary. Result Comment: The drug analyte detected in this assay, 97-cqo-Gymvyge-delta 9-THC, is a metabolite of kjowg-3-ueycisimiirzelhihkvn (THC). Detection of 53-rxx-Vtvgkms-delta 9-THC suggests use of, or exposure to, a product containing THC. This test cannot distinguish between prescribed or non-prescribed forms of THC, nor can it distinguish between active or passive use. The 07-hsh-Ggflked-delta 9-THC metabolite may be detected in urine for several weeks. Performed By: #### P MP ####[facility] [id number] [place], [place], Patient Instructionson 11-23 Interior Plant Caretaker Authentication Interface Message Text Normal [facility] Progress Noteson 11-23-2022 Interior Plant Caretaker Authentication Interface Message Text Normal [facility] Progress Noteson 11-20-2022 Interior Plant Caretaker Authentication Interface Message Text Normal [facility] Interior Plant Caretaker Authentication Interface Message Text Patient was identified by name and date of . Marek Bonilla Body Mass Index is 19.76. Body Surface Area is 1.86 square meters according to the formula of Maggy and Maggy. Patient at risk for falls:No Falls Risk protocol implemented: No Normal [facility] BASIC METABOLIC PANELon 08-0 Anion gap [Moles/Vol] 13 mmol/L Normal 10-20 [facility] Comment on above: Performed By: #### C H8, HEPATIC, MG ####[facility] [id number] [place], [place], Calcium [Mass/Vol] 9.2 mg/dL Normal 8.4-10.4 [facility] Comment on above: Performed By: #### C H8, HEPATIC, MG ####[facility] [id number] [place], [place], Chloride [Moles/Vol] 105 mmol/L Normal 97-111 [facility] Comment on above: Performed By: #### C H8, HEPATIC, MG ####[facility] [id number] [place], [place], CO2 [Moles/Vol] 24 mmol/L Normal 21-30 [facility] Comment on above: Performed By: #### C H8, HEPATIC, MG ####[facility] [id number] [place], [place], Creatinine [Mass/Vol] 1.12 mg/dL High 0.50-1.10 [facility] Comment on above: Performed By: #### C H8, HEPATIC, MG ####[facility] [id number] [place], [place], ESTIMATED GFR (CKD-EPI) 55 mL/min/1.73sqm Low >=60 [facility] Comment on above: Result Comment: 2020 [...] Inclusion of Race in Diagnosing Kidney Disease. Citizen Of [place] Journal of Kidney Diseases 2021;79(2):268-88.e1.2. N Engl J Med 2020 Vol. 385 Issue 19 Pages [phone] Performed By: #### C H8, HEPATIC, MG ####[facility] [id number] [place], [place], Glucose [Mass/Vol] 98 mg/dL Normal 80-116 [facility] Comment on above: Performed By: #### C H8, HEPATIC, MG ####[facility] PATH[facility] [id number] [place], [place], Potassium [Moles/Vol] 3.8 mmol/L Normal 3.3-5.3 [facility] Comment on above: Performed By: #### C H8, HEPATIC, MG ####[facility] [id number] [place], [place], Sodium [Moles/Vol] 138 mmol/L Normal 135-148 [facility] Comment on above: Performed By: #### C H8, HEPATIC, MG ####[facility] [id number] [place], [place], Urea nitrogen [Mass/Vol] 14 mg/dL Normal 8-22 [facility] Comment on above: Performed By: #### C H8, HEPATIC, MG ####[facility] [id number] [place], [place], Basic metabolic 2000 panelon 11-13-2022 Anion gap [Moles/Vol] 13 mmol/L 10 - 20 [facility] Calcium [Mass/Vol] 9.2 mg/dL 8.4 - 10.4 mg/dL [facility] Chloride [Moles/Vol] 105 mmol/L 97 - 111 mmol/L [facility] CO2 [Moles/Vol] 24 mmol/L 21 - 30 mmol/L [facility] Creatinine [Mass/Vol] 1.12 mg/dL High 0.50 - 1.10 mg/dL [facility] GFR/1.73 sq M.predicted MDRD (S/P/Bld) [Vol rate/Area] 55 mL/min/{1.73_m2} Low - PINF [facility] Comment on above: 2020 CKD EPI Equatio [...] Inclusion of Race in Diagnosing Kidney Disease. Citizen Of [place] Journal of Kidney Diseases 202;79(2):268-88.e1. 2. N Engl J Med 2020 Vol. 385 Issue 19 Pages 6518-1891 Glucose [Mass/Vol] 98 mg/dL 80 - 116 mg/dL [facility] Interpretation and review of laboratory results Abnormal [facility] Potassium [Moles/Vol] 3.8 mmol/L 3.3 - 5.3 mmol /L [facility] Sodium [Moles/Vol] 138 mmol/L 135 - 148 mmol/L [facility] Urea nitrogen [Mass/Vol] 14 mg/dL 8 - 22 mg/dL [facility] CBC WITH DIFFERENTIALon 080 -2022 Basophils (Bld) [#/Vol] 0.04 10*3/uL Normal 0.00-0.20 [facility] Comment on above: Performed By: #### C BCDSAT ####[facility] PATHOLOGY [id number] [place], [place], Basophils/100 WBC (Bld) 1.0 % Normal <=1.9 [facility] Comment on above: Performed By: #### C BCDSAT ####[facility] PATHOLOGY [id number] [place] [address], Eosinophils (Bld) [#/Vol] 0.13 10*3/uL Normal 0.00-0.70 [facility] Comment on above: Performed By: #### C BCDSAT ####[facility] PATHOLOGY [id number] [place] [address], Eosinophils/100 WBC (Bld) 3.2 % Normal 0.1-4.0 [facility] [place] Comment on above: Performed By: #### C BCDSAT ####[facility] PATHOLOGY [id number] [place] [address], Erythrocyte distribution width (RBC) [Ratio] 13.9 % Normal 11.5-14.5 [facility] Comment on above: Performed By: #### C BCDSAT ####[facility] PATHOLOGY [id number] [place] [address], Hematocrit (Bld) [Volume fraction] 32.8 % Low 36.0-46.0 [facility] Comment on above: Performed By: #### C BCDSAT ####[facility] PATHOLOGY [id number] [place], [place], Hemoglobin (Bld) [Mass/Vol] 11.2 g/dL Low 12.0-15.0 [facility] Comment on above: Performed By: #### C BCDSAT ####[facility] PATHOLOGY [id number] [place], [place], Lymphocytes (Bld) [#/Vol] 0.32 10*3/uL Low 1.00-4.80 [facility] Comment on above: Performed By: #### C BCDSAT ####[facility] PATHOLOGY [id number] [place], [place], Lymphocytes/100 WBC (Bld) 7.8 % Low 24.0-44.0 [facility] Comment on above: Performed By: #### C BCDSAT ####[facility] PATHOLOGY [id number] [place], [place], MCH (RBC) [Entitic mass] 35.4 pg High 26.0-34.0 [facility] Comment on above: Performed By: #### C BCDSAT ####[facility] PATHOLOGY [id number] [place] [address], MCHC (RBC) [Mass/Vol] 34.2 g/dL Normal 32.0-35.9 [facility] Comment on above: Performed By: #### C BCDSAT ####[facility] PATHOLOGY [id number] [place] [address], MCV (RBC) [Entitic vol] 104 fL High 80-100 [facility] Comment on above: Performed By: #### C BCDSAT ####[facility] PATHOLOGY [id number] [place], [place], MONOCYTE DISTRIBUTION WIDTH Normal [facility] Comment on above: Performed By: #### C BCDSAT ####S PATHOLOGY [id number] [place], [place], Monocytes (Bld) [#/Vol] 0.49 10*3/uL Normal 0.20-1.00 [facility] Comment on above: Performed By: #### C BCDSAT ####[facility] PATHOLOGY [id number] [place], [place], Monocytes/100 WBC (Bld) 12.1 % High 2.0-11.0 [facility] Comment on above: Performed By: #### C BCDSAT ####[facility] PATHOLOGY [id number] [place], [place], Neutrophils (Bld) [#/Vol] 3.10 10*3/uL Normal 1.50-8.00 [facility] Comment on above: Performed By: #### C BCDSAT ####[facility] PATHOLOGY [id number] [place], [place], Neutrophils/100 WBC (Bld) 76.0 % Normal 31.0-76.0 [facility] Comment on above: Performed By: #### C BCDSAT ####[facility] PATHOLOGY [id number] [place], [place], Platelet mean volume (Bld) [Entitic vol] 8.1 fL Normal 7.5-11.2 The [facility] [place] Comment on above: Performed By: #### C BCDSAT ####[facility] PATHOLOGY [id number] [place] [address], Platelets (Bld) [#/Vol] 182 10*3/uL Normal 150-400 The [facility] [place] Comment on above: Performed By: #### C BCDSAT ####[facility] PATHOLOGY [id number] [place], [place], RBC (Bld) [#/Vol] 3.17 10*6/uL Low 4.00-5.20 [facility] Comment on above: Performed By: #### C BCDSAT ####[facility] PATHOLOGY [id number] [place] [address], WBC (Bld) [#/Vol] 4.1 10*3/uL Low 4.5-11.5 The [facility] [place] Comment on above: Performed By: #### C BCDSAT ####[facility] PATHOLOGY [id number] [place], Basophils (Bld) [#/Vol] 0.04 10*3/uL 0.00 - 0.20 K/uL [facility] Basophils/100 WBC (Bld) 1.0 % NINF - 1.9 % [facility] Eosinophils (Bld) [#/Vol] 0.13 10*3/uL 0.00 - 0.70 K/uL [facility] Eosinophils/100 WBC (Bld) 3.2 % 0.1 - 4.0 % [facility] Erythrocyte distribution width (RBC) [Ratio] 13.9 % 11.5 - 14.5 % [facility] Hematocrit (Bld) [Volume fraction] 32.8 % Low 36.0 - 46.0 % [facility] Hemoglobin (Bld) [Mass/Vol] 11.2 g/dL Low 12.0 - 15.0 g/dL [facility] [...] 10*3/uL Low 4.5 - 11.5 K/uL [facility] HEPATIC FUNCTION PANELon 08- 07-2023 Albumin [Mass/Vol] 3.8 g/dL Normal 3.4-5.1 The [facility] Comment on above: Performed By: #### Antoinette Gayle, HEPATIC, MG ####S PATHOLOGY [id number] [place], [place], ALK 116 IU/L Normal 40-200 [facility] Comment on above: Performed By: #### Antoinette Gayle, HEPATIC, MG ####S PATHOLOGY [id number] [place], [place], ALT [Catalytic activity/Vol] 7 U/L Normal 7-40 [facility] Comment on above: Performed By: #### Antoinette Gayle, HEPATIC, MG ####S PATHOLOGY [id number] [place], [place], AST [Catalytic activity/Vol] 12 U/L Normal 7-40 [facility] Comment on above: Performed By: #### Antoinette Gayle, HEPATIC, MG ####S PATHOLOGY [id number] [place], Bilirubin [Mass/Vol] 0.7 mg/dL Normal 0.1-1.5 [facility] Comment on above: Performed By: #### Antoinette Gayle, HEPATIC, MG ####S PATHOLOGY [id number] [place], Bilirubin.direct [Mass/Vol] 0.12 mg/dL Normal 0.10-0.30 [facility] Comment on above: Performed By: #### Antoinette Gayle, HEPATIC, MG ####S PATHOLOGY [id number] [place], Protein [Mass/Vol] 6.6 g/dL Normal 5.7-8.1 [facility] Comment on above: Performed By: #### Antoinette Gayle, HEPATIC, MG ####[facility] [id number] [place], Albumin [Mass/Vol] 3.8 g/dL 3.4 - 5.1 g/dL [facility] ALP [Catalytic activity/Vol] 116 U/L [facility] ALT [Catalytic activity/Vol] 7 U/L [facility] AST [Catalytic activity/Vol] 12 U/L [facility] Bilirubin [Mass/Vol] 0.7 mg/dL 0.1 - 1.5 mg/dL [facility] Bilirubin.direct [Mass/Vol] 0.12 mg/dL 0.10 - 0.30 mg/dL [facility] Protein [Mass/Vol] 6.6 g/dL 5.7 - 8.1 g/dL [facility] MAGNESIUMon 11-13-2022 Magnesium [Mass/Vol] 1.8 mg/dL Normal 1.6-2.8 [facility] Comment on above: Performed By: #### C Mela8, HEPATIC, MG ####[facility] PATHOLOGY [id number] [place], [place], Magnesium [Mass/Vol] 1.8 mg/dL 1.6 - 2.8 mg/dL [facility] No Panel Informationon 11-13 Interpretation and review of laboratory results Normal [facility] Patient Instructionson 11-13 [employer] Authentication Interface Message Text Please start taking xeloda 1,000 MG twice daily (decrease from 1,500 mg twice daily) Normal [facility] Progress Noteson 11-13-2022 [employer] Authentication Interface Message Text Normal [facility] [employer] Authentication Interface Message Text Normal [facility] [employer] Authentication Interface Message Text Normal [facility] BASIC METABOLIC PANELon 07- Anion gap [Moles/Vol] 12 mmol/L Normal 10-20 [facility] Comment on above: Performed By: #### MG DAVID, CH8 ####[facility] PATH[facility]Y [id number] [place], [place], Calcium [Mass/Vol] 8.8 mg/dL Normal 8.4-10.4 [facility] Comment on above: Performed By: #### MG DAVID, CH8 ####[facility] PATH[facility]Y [id number] [place], [place], Chloride [Moles/Vol] 103 mmol/L Normal 97-111 [facility] Comment on above: Performed By: #### MG DAVID, CH8 ####[facility] PATH[facility]Y [id number] [place], CO2 [Moles/Vol] 24 mmol/L Normal 21-30 [facility] Comment on above: Performed By: #### H MG FROST CH8 ####S PATHOLOGY [id number] [place], [place], Creatinine [Mass/Vol] 1.20 mg/dL High 0.50-1.10 [facility] Comment on above: Performed By: #### MG HERNANDEZ CH8 ####S PATHOLOGY [id number] [place], [place], ESTIMATED GFR (CKD-EPI) 51 mL/min/1.73sqm Low >=60 [facility] Comment on above: Result Comment: 2020 [...] Inclusion of Race in Diagnosing Kidney Disease. Citizen Of [place] Journal of Kidney Diseases 2021;79(2):268-88.e1.2. N Engl J Med 1 Vol. 385 Issue 19 Pages [id number] Performed By: #### H MG MARGOT CH8 ####S PATHOLOGY [id number] [place], [place], Glucose [Mass/Vol] 141 mg/dL High 80-116 [facility] Comment on above: Performed By: #### MG DAVID, CH8 ####S PATHOLOGY [id number] [place], [place], Potassium [Moles/Vol] 4.2 mmol/L Normal 3.3-5.3 [facility] Comment on above: Performed By: #### MG DAVID, CH8 ####[facility] PATH[facility] [id number] [place], [place], Sodium [Moles/Vol] 135 mmol/L Normal 135-148 [facility] Comment on above: Performed By: #### H MG MARGOT, CH8 ####[facility] PATHOLOGY [id number] [place], [id number] Urea nitrogen [Mass/Vol] 16 mg/dL Normal 8-22 [facility] Comment on above: Performed By: #### H MG MARGOT, CH8 ####[facility] PATH[facility]Y [id number] [place], [place], Basic metabolic 2000 panelon 11-06-2022 Anion gap [Moles/Vol] 12 mmol/L 10 - [address] [facility] [facility] Calcium [Mass/Vol] 8.8 mg/dL 8.4 - 10.4 mg/dL [facility] Chloride [Moles/Vol] 103 mmol/L 97 - 111 mmol/L [facility] CO2 [Moles/Vol] 24 mmol/L 21 - 30 mmol/L [facility] Creatinine [Mass/Vol] 1.20 mg/dL High 0.50 [...] Inclusion of Race in Diagnosing Kidney Disease. Citizen Of [place] Journal of Kidney Diseases 202;79(2):268-88.e1. 2. N Engl J Med 2020 Vol. 385 Issue 19 Pages [phone] Glucose [Mass/Vol] 141 mg/dL High 80 - 116 mg/dL [facility] Potassium [Moles/Vol] 4.2 mmol/L 3.3 - 5.3 mmol /L [facility] Sodium [Moles/Vol] 135 mmol/L 135 - 148 mmol/L [facility] Urea nitrogen [Mass/Vol] 16 mg/dL 8 - 22 mg/dL [facility] CBC WITH DIFFERENTIALon 10-09 Basophils (Bld) [#/Vol] 0.02 10*3/uL Normal 0.00-0.20 [facility] Comment on above: Performed By: #### C KRYSTLEDSAT ####[facility] PATHOLOGY [id number] [place] [address], Basophils/100 WBC (Bld) 0.5 % Normal <=1.9 [facility] Comment on above: Performed By: #### C KRYSTLEDSAT ####[facility] PATHOLOGY [id number] [place] [address], Eosinophils (Bld) [#/Vol] 0.05 10*3/uL Normal 0.00-0.70 [facility] Comment on above: Performed By: #### Antoinette MCQUEENAT ####[facility] PATHOLOGY [id number] [place] [address], Eosinophils/100 WBC (Bld) 1.3 % Normal 0.1-4.0 [facility] Comment on above: Performed By: #### Antoinette MCQUEENAT ####[facility] PATHOLOGY [id number] [place] [address], Erythrocyte distribution width (RBC) [Ratio] 13.8 % Normal 11.5-14.5 [facility] Comment on above: Performed By: #### Antoinette MCQUEENAT ####[facility] PATHOLOGY [id number] [place] [address], Hematocrit (Bld) [Volume fraction] 33.1 % Low 36.0-46.0 [facility] Comment on above: Performed By: #### C RICHARAT ####[facility] PATHOLOGY [id number] [place] [address], Hemoglobin (Bld) [Mass/Vol] 11.5 g/dL Low 12.0-15.0 [facility] Comment on above: Performed By: #### Antoinette MCQUEENAT ####[facility] PATHOLOGY [id number] [place] [address], Lymphocytes (Bld) [#/Vol] 0.32 10*3/uL Low 1.00-4.80 [facility] Comment on above: Performed By: #### C RICHARAT ####[facility] PATHOLOGY [id number] [place], [place], Lymphocytes/100 WBC (Bld) 8.0 % Low 24.0-44.0 [facility] Comment on above: Performed By: #### C BCDSAT ####[facility] PATHOLOGY [id number] [place], [place], MCH (RBC) [Entitic mass] 35.4 pg High 26.0-34.0 [facility] Comment on above: Performed By: #### C BCDSAT ####[facility] PATHOLOGY [id number] [place], MCHC (RBC) [Mass/Vol] 34.6 g/dL Normal 32.0-35.9 [facility] Comment on above: Performed By: #### C BCDSAT ####[facility] PATHOLOGY [id number] [place], MCV (RBC) [Entitic vol] 102 fL High 80-100 The [facility] [place] Comment on above: Performed By: #### C BCDSAT ####[facility] PATHOLOGY [id number] [place], MONOCYTE DISTRIBUTION WIDTH Normal [facility] Comment on above: Performed By: #### Antoinette MCQUEENAT ####[facility] PATHOLOGY [id number] [place], Monocytes (Bld) [#/Vol] 0.67 10*3/uL Normal 0.20-1.00 The [facility] [place] Comment on above: Performed By: #### Antoinette BCDSAT ####[facility] PATHOLOGY [id number] [place] [address], Monocytes/100 WBC (Bld) 16.9 % High 2.0-11.0 [facility] Comment on above: Performed By: #### Antoinette BCDSAT ####[facility] PATHOLOGY [id number] [place], Neutrophils (Bld) [#/Vol] 2.92 10*3/uL Normal 1.50-8.00 [facility] Comment on above: Performed By: #### Antoinette BCGINAAT ####[facility] PATHOLOGY [id number] [place], Neutrophils/100 WBC (Bld) 73.4 % Normal 31.0-76.0 [facility] Comment on above: Performed By: #### C BCDSAT ####[facility] PATHOLOGY [id number] [place], Platelet mean volume (Bld) [Entitic vol] 8.0 fL Normal 7.5-11.2 [facility] Comment on above: Performed By: #### C BCDSAT ####[facility] PATHOLOGY [id number] [place], Platelets (Bld) [#/Vol] 72 10*3/uL Low 150-400 [facility] Comment on above: Performed By: #### C BCDSAT ####[facility] PATHOLOGY [id number] [place], RBC (Bld) [#/Vol] 3.24 10*6/uL Low 4.00-5.20 [facility] Comment on above: Performed By: #### C BCDSAT ####[facility] PATHOLOGY [id number] [place], WBC (Bld) [#/Vol] 4.0 10*3/uL Low 4.5-11.5 The [facility] [place] Comment on above: Performed By: #### C BCDSAT ####[facility] PATHOLOGY [id number] [place], [place], CBC WITH DIFFERENTIALOrdered By: Maribeth Feng [...] 72 10*3/uL Low 150 - 400 K/uL [facility] RBC (Bld) [#/Vol] 3.24 10*6/uL Low [facility] WBC (Bld) [#/Vol] 4.0 10*3/uL Low 4.5 - 11.5 K/uL [facility]ELon Albumin [Mass/Vol] 4.0 g/dL Normal 3.4-5.1 [facility] Comment on above: Performed By: #### H MG FROST CH8 ####[facility] PATH[facility]Y [id number] [place] [address], ALK 96 IU/L Normal 40-200 [facility] Comment on above: Performed By: #### MG HERNANDEZ CH8 ####[facility] PATHOLOGY [id number] [place] [address], ALT [Catalytic activity/Vol] 8 U/L Normal 7-40 [facility] Comment on above: Performed By: #### MG HERNANDEZ CH8 ####[facility] PATHOLOGY [id number] [place] [address], AST [Catalytic activity/Vol] 13 U/L Normal 7-40 [facility] Comment on above: Performed By: #### MG HERNANDEZ CH8 ####[facility] PATHOLOGY [id number] [place] [address], Bilirubin [Mass/Vol] 0.6 mg/dL Normal 0.1-1.5 [facility] Comment on above: Performed By: #### MG HERNANDEZ CH8 ####[facility] PATHOLOGY [id number] [place] [address], Bilirubin.direct [Mass/Vol] 0.13 mg/dL Normal 0.10-0.30 [facility] Comment on above: Performed By: #### MG HERNANDEZ CH8 ####[facility] PATHOLOGY [id number] [place] [address], Protein [Mass/Vol] 6.4 g/dL Normal 5.7-8.1 [facility] Comment on above: Performed By: #### MG HERNANDEZ CH8 ####[facility] PATHOLOGY [id number] [place] [address], Albumin [Mass/Vol] 4.0 g/dL 3.4 - 5.1 g/dL [facility] ALP [Catalytic activity/Vol] 96 U/L [facility] ALT [Catalytic activity/Vol] 8 U/L [facility] AST [Catalytic activity/Vol] 13 U/L [facility] Bilirubin [Mass/Vol] 0.6 mg/dL 0.1 - 1.5 mg/dL [facility] Bilirubin.direct [Mass/Vol] 0.13 mg/dL 0.10 - 0.30 mg/dL [facility] Interpretation and review of laboratory results Normal [facility] Protein [Mass/Vol] 6.4 g/dL 5.7 - 8.1 g/dL [facility] MAGNESIUMon 11-06-2022 Magnesium [Mass/Vol] 1.5 mg/dL Low 1.6-2.8 [facility] Comment on above: Performed By: #### H EPATIC, MG, CH8 ####[facility] PATH[facility] [id number] [place], [place], Magnesium [Mass/Vol] 1.5 mg/dL Low 1.6 - 2.8 mg/dL [facility] No Panel Informationon 11-06 Interpretation and review of laboratory results Abnormal [facility] 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 This test has not been cleared or approved by the U.S. Food and Drug Administration; however, the FDA has determined that such clearance or approval is not necessary. Performed By: #### P MP ####S PATHOLOGY [id number] [place], [place], AMPHETAMINE Negative Normal Cutoff:1000 [facility] Comment on above: Order Comment: Scree n results are reported as positive (at or above the cutoff) or negative (below the cutoff).The LC-MS/MS testing (if applicable) was developed and its performance characteristics determined by [facility] in a manner consistent with CLIA requirements. This test has not been cleared or approved by the U.S. Food and Drug Administration; however, the FDA has determined that such clearance or approval is not necessary. Performed By: #### P MP ####[facility] PATH[facility] [id number] [place], [place], Benzodiazepines Ql (U) Negative Normal Cutoff: 200 [facility] Comment on above: Order Comment: Scree [...] not necessary. Performed By: #### P MP ####[facility] PATHOLOGY [id number] [place], [place], COCAINE METABOLITE Negative Normal Cutoff: 300 [facility] [...] not necessary. Performed By: #### P MP ####[facility] PATHOLOGY [id number] [place], [place], CREATININE, URINE 261 mg/dL Normal 10-300 [facility] Comment on above: Order Comment: Scree n results are reported as positive (at or above the cutoff) or negative (below the cutoff).The LC-MS/MS testing (if applicable) was developed and its performance characteristics determined by [facility] in a manner consistent with CLIA requirements. This test has not been cleared or approved by the U.S. Food and Drug Administration; however, the FDA has determined that such clearance or approval is not necessary. Performed By: #### P MP ####[facility] PATHOLOGY [id number] [place], [place], FENTANYL Positive Abnormal Cutoff: 1 [facility] Comment on above: Order Comment: Scree n results are reported as positive (at or above the cutoff) or negative (below the cutoff).The LC-MS/MS testing (if applicable) was developed and its performance characteristics determined by [facility] in a manner consistent with CLIA [...] Performed By: #### P MP ####S PATHOLOGY [id number] [place], [place], FENTANYL CONFIRMED Not detected Normal Cutoff: 1 [facility] Comment on above: Order Comment: Scree n results are reported as positive (at or above the cutoff) or negative (below the cutoff).The LC-MS/MS testing (if applicable) was developed and its performance characteristics determined by [facility] in a manner consistent with CLIA requirements. This test has not been cleared or approved by the U.S. Food and Drug Administration; however, the FDA has determined that such clearance or approval is not necessary. Performed By: #### P MP ####S PATHOLOGY [id number] [place], [place], Methadone Ql (U) Negative Normal Cutoff: 300 [facility] Comment on above: Order Comment: Scree n results are reported as positive (at or above the cutoff) or negative (below the cutoff).The LC-MS/MS testing (if applicable) was developed and its performance characteristics determined by [facility] in a manner consistent with CLIA requirements. This test has not been cleared or approved by the U.S. Food and Drug Administration; however, the FDA has determined that such clearance or approval is not necessary. Performed By: #### P MP ####[facility] PATH[facility] [id number] [place], [place], NORBUPRENORPHINE Negative Normal Cutoff: 5 [facility] Comment on above: Order Comment: Scree n results are reported as positive (at or above the cutoff) or negative (below the cutoff).The LC-MS/MS testing (if applicable) was developed and its performance characteristics determined by [facility] in a manner consistent with CLIA requirements. This test has not been cleared or approved by the U.S. Food and Drug Administration; however, the FDA has determined that such clearance or approval is not necessary. Performed By: #### P MP ####[facility] PATHOLOGY [id number] [place], [place], NORFENTANYL CONFIRMED Not detected Normal Cutoff: 1 T [facility] Comment on above: Order Comment: Scree n results are reported as positive (at or above the cutoff) or negative (below the cutoff).The LC-MS/MS testing (if applicable) was developed and its performance characteristics determined by The [facility] in a manner consistent with CLIA requirements. This test has not been cleared or approved by the U.S. Food and Drug Administration; however, the FDA has determined that such clearance or approval is not necessary. Performed By: #### P MP ####[facility] PATHOLOGY [id number] [place], [place], OPIATE Positive Abnormal Cutoff: 300 [facility] Comment on above: Order Comment: Scree n results are reported as positive (at or above the cutoff) or negative (below the cutoff).The LC-MS/MS testing (if applicable) was developed and its performance characteristics determined by [facility] in a manner consistent with CLIA [...] and drugs. Performed By: #### P MP ####[facility] PATHOLOGY [id number] [place], [place], OXYCODONE Positive Abnormal Cutoff: 100 [facility] Comment on above: Order Comment: Scree n results are reported as positive (at or above the cutoff) or negative (below the cutoff).The LC-MS/MS testing (if applicable) was developed and its performance characteristics determined by [facility] in a manner consistent with CLIA requirements. This test has not been cleared or approved by the U.S. Food and Drug Administration; however, the FDA has determined that such clearance or approval is not necessary. Result Comment: Oxyc odone and metabolites of Oxycodone (Oxymorphone, Noroxycodone, and Noroxymorphone) are measured/detected in this assay method. Performed By: #### P MP ####[facility] PATH[facility] [id number] [place], [place], OXYCODONE CONFIRMATION Positive Abnormal Cutoff: 100 [facility] Comment on above: Order Comment: Scree n results are reported as positive (at or above the cutoff) or negative (below the cutoff).The LC-MS/MS testing (if applicable) was developed and its performance characteristics determined by [facility] in a manner consistent with CLIA requirements. This test has not been cleared or approved by the U.S. Food and Drug Administration; however, the FDA has determined that such clearance or approval is not necessary. Performed By: #### P MP ####[facility] PATHOLOGY [id number] [place], [place], OXYMORPHONE CONFIRMATION Positive Abnormal Cutoff: 100 [facility] Comment on above: Order Comment: Scree n results are reported as positive (at or above the cutoff) or negative (below the cutoff).The LC-MS/MS testing (if applicable) was developed and its performance characteristics determined by [facility] in a manner consistent with CLIA requirements. This test has not been cleared or approved by the U.S. Food and Drug Administration; however, the FDA has determined that such clearance or approval is not necessary. Performed By: #### P MP ####[facility] PATHOLOGY [id number] [place], [place], THC Positive Abnormal Cutoff: 50 [facility] Comment on above: Order Comment: Scree n results are reported as positive (at or above the cutoff) or negative (below the cutoff).The LC-MS/MS testing (if applicable) was developed and its performance characteristics determined by [facility] in a manner consistent with CLIA requirements. This test has not been cleared or approved by the U.S. Food and Drug Administration; however, the FDA has determined that such clearance or approval is not necessary. Performed By: #### P MP ####[facility] PATHOLOGY [id number] [place], [place], THC CONFIRMATION Positive Abnormal Cutoff: 15 [facility] Comment on above: Order Comment: Scree n results are reported as positive (at or above the cutoff) or negative (below the cutoff).The LC-MS/MS testing (if applicable) was developed and its performance characteristics determined by [facility] in a manner consistent with CLIA requirements. This test has not been cleared or approved by the U.S. Food and Drug Administration; however, the FDA has determined that such clearance or approval is not necessary. Result Comment: The drug analyte detected in this assay, 86-lrq-Jfryjvm-delta 9-THC, is a metabolite of xfhwj-7-dyimibxlzfzzaazdcszu (THC). Detection of 82-bwg-Jtulzly-delta 9-THC suggests use of, or exposure to, a product containing THC. This test cannot distinguish between prescribed or non-prescribed forms of THC, nor can it distinguish between active or passive use. The 87-xpk-Qnicuvb-delta 9-THC metabolite may be detected in urine for several weeks. Performed By: #### P MP ####S PATHOLOGY [id number] [place], [place], Telephone Encounteron 2022 [employer]aker Authentication Interface Message Text Normal [facility] BASIC METABOLIC PANELon 10-08 Anion gap [Moles/Vol] 14 mmol/L Normal 10-20 [facility] Comment on above: Performed By: #### Law Pappas CH8 ####S PATHOLOGY [id number] [place], [place], Calcium [Mass/Vol] 8.9 mg/dL Normal 8.4-10.4 [facility] Comment on above: Performed By: #### Law Pappas CH8 ####S PATHOLOGY [id number] [place], [place], Chloride [Moles/Vol] 110 mmol/L Normal 97-111 [facility] Comment on above: Performed By: #### Law Pappas CH8 ####S PATHOLOGY [id number] [place], [place], CO2 [Moles/Vol] 18 mmol/L Low 21-30 [facility] Comment on above: Performed By: #### Law Pappas, KLAUDIA8 ####S PATHOLOGY [id number] [place], [place], Creatinine [Mass/Vol] 1.15 mg/dL High 0.50-1.10 [facility] Comment on above: Performed By: #### Law Pappas, CH8 ####S PATHOLOGY [id number] [place], [place], ESTIMATED GFR (CKD-EPI) 53 mL/min/1.73sqm Low >=60 [facility] Comment on above: Result Comment: 2020 [...] Inclusion of Race in Diagnosing Kidney Disease. Citizen Of [place] Journal of Kidney Diseases 2021;79(2):268-88.e1.2. N Engl J Med 2020 Vol. 385 Issue 19 Pages [phone] Performed By: #### Law Pappas CH8 ####S PATHOLOGY [id number] [place], [place], Glucose [Mass/Vol] 96 mg/dL Normal 80-116 [facility] Comment on above: Performed By: #### Law Pappas CH8 ####S PATHOLOGY [id number] [place], [place], Potassium [Moles/Vol] 4.0 mmol/L Normal 3.3-5.3 [facility] Comment on above: Performed By: #### Law Pappas, CH8 ####[facility] [id number] [place], [place], Sodium [Moles/Vol] 138 mmol/L Normal 135-148 The [facility] Comment on above: Performed By: #### Law Pappas, CH8 ####[facility] PATHOLOGY [id number] [place], [place], Urea nitrogen [Mass/Vol] 12 mg/dL Normal 8-22 The [facility] [place] Comment on above: Performed By: #### Law Pappas, CH8 ####[facility] PATHOLOGY [id number] [place], [place], Basic metabolic 2000 panelOr dered By: Farhana Stephens on 11-02-2022 Anion gap [Moles/Vol] 14 mmol/L 10 - 20 Met [facility] Calcium [Mass/Vol] 8.9 mg/dL 8.4 - 10.4 mg/dL [facility] Chloride [Moles/Vol] 110 mmol/L 97 - 111 mmol/L [facility] CO2 [Moles/Vol] 18 mmol/L Low 21 - 30 mmol/L [facility] Creatinine [Mass/Vol] 1.15 mg/dL High 0.50 [...] Inclusion of Race in Diagnosing Kidney Disease. Citizen Of [place] Journal of Kidney Diseases 202;79(2):268-88.e1. 2. N Engl J Med 1 Vol. 385 Issue 19 Pages 4474-5863 Glucose [Mass/Vol] 96 mg/dL 80 - 116 mg/dL [facility] Interpretation and review of laboratory results Abnormal [facility] Potassium [Moles/Vol] 4.0 mmol/L 3.3 - 5.3 mmol /L [facility] Sodium [Moles/Vol] 138 mmol/L 135 - 148 mmol/L [facility] Urea nitrogen [Mass/Vol] 12 mg/dL 8 - 22 mg/dL [facility] CBC WITH DIFFERENTIALOrdered By: Rommel West [...] 10*3/uL Critically low 150 - 400 K/uL [facility] RBC (Bld) [#/Vol] 3.25 10*6/uL Low [facility] WBC (Bld) [#/Vol] 0.8 10*3/uL Critically low 4.5 - 11.5 K/ uL [facility] CBC WITH DIFFERENTIALon 10-08 Erythrocyte distribution width (RBC) [Ratio] 13.2 % Normal 11.5-14.5 The [facility] Comment on above: Performed By: ###ALAN DE LA CRUZ ####[facility] PATHOLOG[facility] [id number] [place] [address], Hematocrit (Bld) [Volume fraction] 33.6 % Low 36.0-46.0 [facility] Comment on above: Performed By: ###ALAN DE LA CRUZ ####[facility] PATH[facility] [id number] [place], [place], Hemoglobin (Bld) [Mass/Vol] 11.4 g/dL Low 12.0-15.0 The [facility] Comment on above: Performed By: ###ALAN DE LA CRUZ ####[facility] PATHOLOGY [id number] [place], [place], MCH (RBC) [Entitic mass] 35.1 pg High 26.0-34.0 The [facility] Comment on above: Performed By: ###ALAN DE LA CRUZ ####[facility] PATH[facility] [id number] [place], [place], MCHC (RBC) [Mass/Vol] 34.0 g/dL Normal 32.0-35.9 The [facility] Comment on above: Performed By: #### ALAN MCCARTY ####S PATHOLOGY [id number] [place], [place], MCV (RBC) [Entitic vol] 103 fL High 80-100 The [facility] [place] Comment on above: Performed By: ###ALAN DE LA CRUZ ####S PATHOLOGY [id number] [place], [place], MONOCYTE DISTRIBUTION WIDTH Normal The [facility] [place] Comment on above: Performed By: #### ALAN MCCARTY ####[facility] PATHOLOG[facility] [id number] [place], [place], Platelet mean volume (Bld) [Entitic vol] 7.4 fL Low 7.5-11.2 The [facility] [place] Comment on above: Performed By: ###ALAN DE LA CRUZ ####[facility] PATH[facility] [id number] [place], Platelets (Bld) [#/Vol] 41 10*3/uL Critically low 150-400 The [facility] [place] Comment on above: Performed By: ###ALAN DE LA CRUZ ####[facility] PATH[facility] [id number] [place], RBC (Bld) [#/Vol] 3.25 10*6/uL Low 4.00-5.20 The [facility] [place] Comment on above: Performed By: ###ALAN DE LA CRUZ ####[facility] PATH[facility] [id number] [place], WBC (Bld) [#/Vol] 0.8 10*3/uL Critically low 4.5-11.5 Th e [facility] [place] Comment on above: Performed By: ###ALAN DE LA CRUZ ####S PATHOLOGY [id number] [place], [place], Care Plan Noteon 11-02-2022 Interior Plant C[employer]aker Authentication Interface Message Text Normal [facility] MAGNESIUMon 11-02-2022 Magnesium [Mass/Vol] 2.0 mg/dL Normal 1.6-2.8 The [facility] [place] Comment on above: Performed By: #### Law Pappas CH8 ####[facility] PATHOLOGY [id number] [place], [place], Interpretation and review of laboratory results Normal [facility] Magnesium [Mass/Vol] 2.0 mg/dL 1.6 - 2.8 mg/dL [facility] MANUAL DIFF AND MORPHon 07-2 Cells Counted Total (Bld) [#] 50 {cells} [facility] Eosinophils (Bld) [#/Vol] 0.06 10*3/uL 0.00 - 0.70 K/uL [facility] Eosinophils/100 WBC (Bld) 8.0 % High 0.1 [...] TOTAL # IN BLOOD 50 Normal The [facility] Comment on above: Performed By: #### ALAN MCCARTY ####[facility] PATHOLOGY [id number] [place], [place], EOSINOPHILS % BY MANUAL COUNT 8.0 % High 0.1-4.0 [facility] Comment on above: Performed By: ###ALAN DE LA CRUZ ####[facility] PATHOLOGY [id number] [place], EOSINOPHILS ABS BY MANUAL COUNT 0.06 K/uL Normal 0.00-0.70 [facility] Comment on above: Performed By: #### ALAN MCCARTY ####[facility] PATHOLOGY [id number] [place], LYMPHOCYTES % BY MANUAL COUNT 32.0 % Normal 24.0-44.0 The [facility] Comment on above: Performed By: ###ALAN DE LA CRUZ ####[facility] PATHOLOGY [id number] [place], LYMPHOCYTES ABS BY MANUAL COUNT 0.26 K/uL Low 1.00-4.80 The [facility] Comment on above: Performed By: #### ALAN MCCARTY ####[facility] PATHOLOGY [id number] [place], [place], MACROCYTOSIS Slight Normal The [facility] Comment on above: Performed By: #### ALAN MCCARTY ####[facility] PATHOLOGY [id number] [place], [place], MONOCYTES % BY MANUAL COUNT 20.0 % High 2.0-11.0 The [facility] Comment on above: Performed By: ###ALAN DE LA CRUZ ####S PATHOLOGY [id number] [place], MONOCYTES ABS BY MANUAL COUNT 0.16 K/uL Low 0.20-1.00 The [facility] Comment on above: Performed By: ###ALAN DE LA CRUZ ####S PATHOLOGY [id number] [place], NEUTROPHILS % BY MANUAL COUNT 40.0 % Normal 31.0-76.0 The [facility] Comment on above: Performed By: ###ALAN DE LA CRUZ ####[facility] PATHOLOGY [id number] [place], NEUTROPHILS ABS BY MANUAL COUNT 0.32 K/uL Low 1.50-8.00 The [facility] Comment on above: Performed By: ###ALAN DE LA CRUZ ####[facility] PATHOLOGY [id number] [place], OVALOCYTES Few Normal The [facility] Comment on above: Performed By: ###ALAN DE LA CRUZ ####[facility] PATHOLOGY [id number] [place], [place], MRSA SCREENOrdered By: Christoph Ozuna on 11-02-2022 Interpretation and review of laboratory results Normal [facility] MRSA isol Org specific cx Ql (Nose) No methicillin resistant Staphylococcus aureus isolated. No methicillin resistant Staphylococcus aureus isolated. [facility] No Panel InformationOrdered By: Rommel West on 11-02-2022 Interpretation and review of laboratory results Abnormal [facility] Progress Noteson 11-02-2022 [employer] Plant C[employer]aker Authentication Interface Message Text Normal [facility] B TYPE NATRIURETIC PEPTIDEon 2022 Natriuretic peptide B (Bld) [Mass/Vol] 63.0 pg/mL Normal <100.0 The [facility] [place] Comment on above: Performed By: #### B PL ####[facility] PATHOLOGY [id number] [place], [place], Interpretation and review of laboratory results Normal [facility] Natriuretic peptide B (Bld) [Mass/Vol] 63.0 pg/mL NINF - 100.0 pg/mL [facility] BASIC METABOLIC PANELon 10-08 Anion gap [Moles/Vol] 14 mmol/L Normal 10-20 The [facility] Comment on above: Performed By: #### Law Pappsa PROCAL PHOS, CH8, URIC ####S PATHOLOGY [id number] [place], Calcium [Mass/Vol] 8.3 mg/dL Low 8.4-10.4 The [facility] Comment on above: Performed By: #### Law Pappas PROCAL PHOS, CH8, URIC ####[facility] PATHOLOGY [id number] [place], Chloride [Moles/Vol] 108 mmol/L Normal 97-111 The [facility] Comment on above: Performed By: #### Law Pappas PROCAL PHOS, CH8, URIC ####[facility] PATHOLOGY [id number] [place], CO2 [Moles/Vol] 17 mmol/L Low 21-30 The [facility] [place] Comment on above: Performed By: #### Law Pappas PROCAL, PHOS, CH8, URIC ####[facility] PATHOLOGY [id number] [place], Creatinine [Mass/Vol] 1.10 mg/dL Normal 0.50-1.10 [facility] Comment on above: Performed By: #### M G, PROCAL, PHOS, CH8, URIC ####S PATHOLOGY [id number] [place], [place], ESTIMATED GFR (CKD-EPI) 56 mL/min/1.73sqm Low >=60 [facility] Comment on above: Result Comment: 2020 [...] Inclusion of Race in Diagnosing Kidney Disease. Citizen Of [place] Journal of Kidney Diseases 2021;79(2):268-88.e1.2. N Engl J Med 2020 Vol. 385 Issue 19 Pages [phone] Performed By: #### Law G, PROCAL, PHOS, CH8, URIC ####S PATHOLOGY [id number] [place], Glucose [Mass/Vol] 112 mg/dL Normal 80-116 The [facility] [place] Comment on above: Performed By: #### M G, PROCAL, PHOS, CH8, URIC ####S PATHOLOGY [id number] [place], [place], Potassium [Moles/Vol] 4.2 mmol/L Normal 3.3-5.3 The [facility] Comment on above: Performed By: #### M G, PROCAL, PHOS, CH8, URIC ####S PATHOLOGY [id number] [place], Sodium [Moles/Vol] 135 mmol/L Normal 135-148 The [facility] [place] Comment on above: Performed By: #### M G, PROCAL, PHOS, CH8, URIC ####S PATHOLOGY [id number] [place], Urea nitrogen [Mass/Vol] 14 mg/dL Normal 8-22 The [facility] Comment on above: Performed By: #### M Mian, PASTORA BARRERA, CH8, URIC ####[facility] PATHOLOGY [id number] [place], [place], Basic metabolic 2000 panelon 2022 Anion gap [Moles/Vol] 14 mmol/L 10 - [address] [facility] Cal[facility] [Mass/Vol] 8.3 mg/dL Low 8.4 - 10.4 mg/dL [facility] Chloride [Moles/Vol] 108 mmol/L 97 - 111 mmol/L [facility] CO2 [Moles/Vol] 17 mmol/L Low 21 - 30 mmol/L [facility] Creatinine [Mass/Vol] 1.10 mg/dL 0.50 - 1.10 mg/dL [facility] GFR/1.73 sq M.predicted MDRD (S/P/Bld) [Vol rate/Area] 56 mL/min/{1.73_m2} Low - PINF [facility] Comment on above: 2020 CKD EPI Equatio [...] Inclusion of Race in Diagnosing Kidney Disease. Citizen Of [place] Journal of Kidney Diseases 2021;79(2):268-88.e1. 2. N Engl J Med 2020 Vol. 385 Issue 19 Pages 5692-5864 Glucose [Mass/Vol] 112 mg/dL 80 - 116 mg/dL [facility] Interpretation and review of laboratory results Abnormal [facility] Potassium [Moles/Vol] 4.2 mmol/L 3.3 - 5.3 mmol /L [facility] Sodium [Moles/Vol] 135 mmol/L 135 - 148 mmol/L [facility] Urea nitrogen [Mass/Vol] 14 mg/dL 8 - 22 mg/dL [facility] CBC WITH DIFFERENTIALOrdered By: Elisa Zhang on 2022 Erythrocyte distribution width (RBC) [Ratio] 13.3 % 11.5 - 14.5 % [facility] Hematocrit (Bld) [Volume fraction] 32.7 % Low [...] - 11.2 fL [facility] Platelets (Bld) [#/Vol] 36 10*3/uL Critically low 150 - 400 K/uL [facility] RBC (Bld) [#/Vol] 3.15 10*6/uL Low [facility] WBC (Bld) [#/Vol] 0.8 10*3/uL Critically low 4.5 - 11.5 K/ uL [facility] CBC WITH DIFFERENTIALon 10-08 Erythrocyte distribution width (RBC) [Ratio] 13.3 % Normal 11.5-14.5 The [facility] Comment on above: Performed By: #### ALAN MCCARTY ####[facility] PATH[facility] [id number] [place], Hematocrit (Bld) [Volume fraction] 32.7 % Low 36.0-46.0 The [facility] Comment on above: Performed By: #### ALAN MCCARTY ####[facility] PATHOLOG[facility] [id number] [place], Hemoglobin (Bld) [Mass/Vol] 11.1 g/dL Low 12.0-15.0 The [facility] Comment on above: Performed By: #### ALAN MCCARTY ####[facility] PATHOLOGY [id number] [place], MCH (RBC) [Entitic mass] 35.2 pg High 26.0-34.0 The [facility] Comment on above: Performed By: #### ALAN MCCARTY ####[facility] PATH[facility] [id number] [place], MCHC (RBC) [Mass/Vol] 33.9 g/dL Normal 32.0-35.9 The [facility] Comment on above: Performed By: #### ALAN MCCARTY ####[facility] PATH[facility] [id number] [place], MCV (RBC) [Entitic vol] 104 fL High 80-100 The [facility] Comment on above: Performed By: #### ALAN MCCARTY ####[facility] PATH[facility] [id number] [place], MONOCYTE DISTRIBUTION WIDTH Normal The [facility] Comment on above: Performed By: #### ALAN MCCARTY ####[facility] PATH[facility] [id number] [place], Platelet mean volume (Bld) [Entitic vol] 7.4 fL Low 7.5-11.2 The [facility] Comment on above: Performed By: ###ALAN DE LA CRUZ ####[facility] PATH[facility] [id number] [place] [address], Platelets (Bld) [#/Vol] 36 10*3/uL Critically low 150-400 The [facility] Comment on above: Performed By: #### ALAN MCCARTY ####[facility] PATH[facility] [id number] [place], RBC (Bld) [#/Vol] 3.15 10*6/uL Low 4.00-5.20 The [facility] Comment on above: Performed By: ###ALAN DE LA CRUZ ####[facility] PATH[facility] [id number] [place], WBC (Bld) [#/Vol] 0.8 10*3/uL Critically low 4.5-11.5 Th e [facility] Comment on above: Performed By: ###ALAN DE LA CRUZ ####[facility] PATH[facility] [id number] [place], [place], Care Plan Noteon 2022 [employer] C[employer] Authentication Interface Message Text Normal [facility] Consultson 2022 [employer] Plant Caretaker Authentication Interface Message Text Normal [facility] [employer] C[employer]aker Authentication Interface Message Text Normal The [facility] EKG 12 LEAD - PERFORMon 10-08 Diagnosis Normal sinus rhythm Nonspecific ST abnormality Abnormal ECG When compared with ECG of 15-JUL-2021 16:12, Minimal criteria for Inferior infarct are no longer Present Confirmed by Norma ESCALANTE GRACE ([id number]) on 2022 3:12:25 PM [facility] P wave At[facility] by EKG 75 BPM [facility] P wave axis 52 degrees [facility] P-R Interval 192 ms [facility] Q-T interval 384 ms [facility] Q-T interval corrected 428 ms [facility] QRS axis 32 degrees [facility] QRS duration 88 ms [facility] T wave axis 52 degrees [facility] MAGNESIUMon 2022 Magnesium [Mass/Vol] 2.8 mg/dL Normal 1.6-2.8 The [facility] Comment on above: Performed By: #### M Mian, PASTORA BARRERA, CH8, URIC ####[facility] PATHOLOG[facility] [id number] [place], [place], MAGNESIUMOrdered By: Florecita Santiago on 2022 Interpretation and review of laboratory results Normal [facility] Magnesium [Mass/Vol] 2.8 mg/dL 1.6 - 2.8 mg/dL [facility] MANUAL DIFF AND MORPHon 10-08 Atypical Lymph # 0.03 K/uL [facility] Band form neutrophils/100 WBC (Bld) 2 % NINF - 10 % [facility] Bands # 0.02 K/uL High NINF - 0.01 K/uL [facility] lth Cells Counted Total (Bld) [#] 100 {cells} [facility] Eosinophils (Bld) [#/Vol] 0.04 10*3/uL 0.00 - 0.70 K/uL [facility] Eosinophils/100 WBC (Bld) 5.0 % High 0.1 [...] 0.29 10*3/uL Low 1.50 - 8.00 K/uL [facility] Neutrophils/100 WBC (Bld) 36.0 % 31.0 - 76.0 % [facility] Ovalocytes LM Ql (Bld) Few [facility] Polychromasia LM Ql (Bld) Slight [facility] ReactiveLymph # 0.02 K/uL [facility] Variant lymphocytes/100 WBC (Bld) 2 % [facility] Variant lymphocytes/100 WBC (Bld) 4 % [facility] ATYPICAL LYMPHS % BY MANUAL COUNT 4 % Normal [facility] Comment on above: Performed By: #### ALAN MCCARTY ####S PATHOLOGY [id number] [place], ATYPICAL LYMPHS ABS BY MANUAL COUNT 0.03 K/uL Normal [facility] Comment on above: Performed By: #### ALAN MCCARTY ####S PATHOLOGY [id number] [place], BANDS % BY MANUAL COUNT 2 % Normal <=10 The [facility] Comment on above: Performed By: #### ALAN MCCARTY ####[facility] PATH[facility] [id number] [place], BANDS ABS BY MANUAL COUNT 0.02 K/uL High <0.01 The [facility] Comment on above: Performed By: #### ALAN MCCARTY ####[facility] PATHOLOGY [id number] [place], CELLS COUNTED TOTAL # IN BLOOD 100 Normal [facility] Comment on above: Performed By: #### ALAN MCCARTY ####[facility] PATHOLOG[facility] [id number] [place], EOSINOPHILS % BY MANUAL COUNT 5.0 % High 0.1-4.0 The [facility] Comment on above: Performed By: #### ALAN MCCARTY ####[facility] PATHOLOGY [id number] [place], EOSINOPHILS ABS BY MANUAL COUNT 0.04 K/uL Normal 0.00-0.70 The [facility] Comment on above: Performed By: #### ALAN MCCARTY ####S PATHOLOGY [id number] [place], LYMPHOCYTES % BY MANUAL COUNT 40.0 % Normal 24.0-44.0 The [facility] Comment on above: Performed By: #### ALAN MCCARTY ####S PATHOLOGY [id number] [place], [place], LYMPHOCYTES ABS BY MANUAL COUNT 0.32 K/uL Low 1.00-4.80 [facility] Comment on above: Performed By: #### ALAN MCCARTY ####S PATHOLOGY [id number] [place], [place], MACROCYTOSIS Slight Normal [facility] Comment on above: Performed By: #### ALAN MCCARTY ####S PATHOLOGY [id number] [place], [place], MONOCYTES % BY MANUAL COUNT 11.0 % Normal 2.0-11.0 [facility] Comment on above: Performed By: #### ALAN MCCARTY ####[facility] PATH[facility] [id number] [place], [place], MONOCYTES ABS BY MANUAL COUNT 0.09 K/uL Low 0.20-1.00 [facility] Comment on above: Performed By: #### ALAN MCCARTY ####[facility] PATHOLOGY [id number] [place], NEUTROPHILS % BY MANUAL COUNT 36.0 % Normal 31.0-76.0 [facility] Comment on above: Performed By: #### ALAN MCCARTY ####[facility] PATHOLOGY [id number] [place], NEUTROPHILS ABS BY MANUAL COUNT 0.29 K/uL Low 1.50-8.00 [facility] Comment on above: Performed By: #### ALAN MCCARTY ####[facility] PATHOLOGY [id number] [place], OVALOCYTES Few Normal [facility] Comment on above: Performed By: #### ALAN MCCARTY ####S PATHOLOGY [id number] [place], POLYCHROMASIA Slight Normal [facility] Comment on above: Performed By: #### ALAN MCCARTY ####S PATHOLOGY [id number] [place], REACTIVE LYMPH ABS BY MANUAL COUNT 0.02 K/uL Normal [facility] Comment on above: Performed By: #### ALAN MCCARTY ####S PATHOLOGY [id number] [place], REACTIVE LYMPHS % BY MANUAL COUNT 2 % Normal [facility] Comment on above: Performed By: #### ALAN MCCARTY ####S PATHOLOGY [id number] [place], [place], MRSA SCREENon 2022 MRSA DNA MCKENZIE+probe Ql (Unsp spec) CMR: No methicillin resistant Staphylococcus aureus isolated. Normal No methicillin resistant Staphylococcus aureus isolated. [facility] Comment on above: Performed By: #### C MR ####[facility] Gybdvjmdq6723 [place], [place] No Panel InformationOrdered By: Elisa Zhang on 2022 Interpretation and review of laboratory results Abnormal [facility] No Panel Informationon 11-01 Interpretation and review of laboratory results Normal [facility] PHOSPHORUSon 2022 Phosphate [Mass/Vol] 3.5 mg/dL Normal 2.5-4.8 [facility] Comment on above: Performed By: #### M G, PROCAL, PHOS, CH8, URIC ####S PATHOLOGY [id number] [place], [place], Phosphate [Mass/Vol] 3.5 mg/dL 2.5 - 4.8 mg/dL [facility] PROCALCITONINon 2022 PROCALCITONIN 0.10 ng/mL Normal <0.50 [facility] Comment on above: Result Comment: Proc [...] #### M G, PROCAL, PHOS, CH8, URIC ####[facility] PATHOLOGY [id number] [place], [place], Interpretation and review of laboratory results Normal [facility] Procalcitonin IA [Mass/Vol] 0.10 ng/mL NINF - 0.50 ng/mL [facility] Comment on above: Procalcitonin Concen trations < [...] retest Procalcitonin within 6 to 24 hours. [facility] Progress Noteson 2022 [employer] Authentication Interface Message Text Dr. Renae notified of critical Platelet count and WBC value of 36 read back critical results. New orders received. notified of critical wbc value of 0.8. read back critical results. New orders received. Normal [facility] [employer]aker Authentication Interface Message Text Normal [facility] Interior [employer]aker Authentication Interface Message Text Normal [facility] URIC ACIDon 2022 Urate [Mass/Vol] 4.9 mg/dL Normal 2.0-7.3 [facility] Comment on above: Performed By: #### M G, PROCAL, PHOS, CH8, URIC ####[facility] PATHOLOGY [id number] [place], Urate [Mass/Vol] 4.9 mg/dL 2.0 - 7.3 mg/dL [facility] VANCOMYCIN RANDOMon 11-02-19 23 VANC R 15.1 ug/mL Normal 5.0-40.0 [facility] Comment on above: Performed By: #### V ANC R ####[facility] PATHOLOGY [id number] [place], [place], Interpretation and review of laboratory results Normal [facility] Vancomycin [Mass/Vol] 15.1 ug/mL 5.0 - 40.0 ug/ mL [facility] XR CHEST AP OR PA 1 VIEWon 0 2022 XR CHEST AP OR PA 1 VIEW Normal [facility] Addendum Noteon 10-31-2022 [employer] Authentication Interface Message Text Encounter addended by: Michelle Gomes RN on: 10/31/2022 6:25 PM Actions taken: MAR administration accepted, Clinical Note Signed Normal [facility] [employer]aker Authentication Interface Message Text Encounter addended by: Michelle Gomes RN on: 10/31/2022 4:54 PM Actions taken: MAR administration accepted Normal [facility] [employer]aker Authentication Interface Message Text Encounter addended by: Leticia Holden RN on: 10/31/2022 4:44 PM Actions taken: Clinical Note Signed Normal [facility] [employer] Authentication Interface Message Text Encounter addended by: Katherine Miguel RN on: 10/31/2022 4:09 PM Actions taken: Visit diagnoses modified, Order list changed, Diagnosis association updated Normal [facility] [employer]aker Authentication Interface Message Text Encounter addended by: Leticia Holden RN on: 10/31/2022 4:08 PM Actions taken: MAR administration edited, MAR administration accepted, Clinical Note Signed Normal [facility] [employer]aker Authentication Interface Message Text Encounter addended by: Leticia Holden RN on: 10/31/2022 4:00 PM Actions taken: LDA properties accepted, MAR administration accepted Normal [facility] [employer]aker Authentication Interface Message Text Encounter addended by: Lara Smith MD on: 10/31/2022 3:52 PM Actions taken: Order list changed Normal [facility] AdmissionCareon 10-31-2022 [employer]aker Authentication Interface Message Text Normal [facility] BASIC METABOLIC PANELon 10-08 Anion gap [Moles/Vol] 13 mmol/L Normal 10-20 [facility] Comment on above: Performed By: #### Law Pappas CH8, HEPATIC ####[facility] PATHOLOGY [id number] [place], [place], Calcium [Mass/Vol] 9.2 mg/dL Normal 8.4-10.4 [facility] Comment on above: Performed By: #### Law Pappas CH8, HEPATIC ####[facility] PATHOLOGY [id number] [place], [place], Chloride [Moles/Vol] 103 mmol/L Normal 97-111 [facility] Comment on above: Performed By: #### Law Pappas, CH8, HEPATIC ####[facility] PATHOLOGY [id number] [place], CO2 [Moles/Vol] 22 mmol/L Normal 21-30 [facility] Comment on above: Performed By: #### Law Pappas, CH8, HEPATIC ####[facility] PATHOLOGY [id number] [place], Creatinine [Mass/Vol] 1.27 mg/dL High 0.50-1.10 [facility] Comment on above: Performed By: #### Law G, CH8, HEPATIC ####[facility] PATHOLOGY [id number] [place], ESTIMATED GFR (CKD-EPI) 48 mL/min/1.73sqm Low >=60 [facility] Comment on above: Result Comment: 2020 [...] Inclusion of Race in Diagnosing Kidney Disease. Citizen Of [place] Journal of Kidney Diseases 2021;79(2):268-88.e1.2. N Engl J Med 2020 Vol. 385 Issue 19 Pages [phone] Performed By: #### FLACA Pierre, HEPATIC ####[facility] PATHOLOGY [id number] [place], Glucose [Mass/Vol] 94 mg/dL Normal 80-116 [facility] [place] Comment on above: Performed By: #### FLACA Pierre, HEPATIC ####[facility] PATHOLOGY [id number] [place], Potassium [Moles/Vol] 4.3 mmol/L Normal 3.3-5.3 [facility] Comment on above: Performed By: #### FLACA Pierre, HEPATIC ####[facility] PATHOLOGY [id number] [place], Sodium [Moles/Vol] 134 mmol/L Low 135-148 The [facility] [place] Comment on above: Performed By: #### FLACA Pierre, HEPATIC ####[facility] PATHOLOGY [id number] [place], Urea nitrogen [Mass/Vol] 17 mg/dL Normal 8-22 [facility] Comment on above: Performed By: #### FLACA Pierre, HEPATIC ####[facility] PATHOLOGY [id number] [place], BLOOD CULTUREon 10-31-2022 Bacteria identified Cx Nom (Bld) C BLOOD: No Growth Normal The [facility] [place] Comment on above: Performed By: #### C BLOOD ####[facility] Zhtgawpyf2312 [place], [place] CBC WITH DIFFERENTIALon 10-08 Erythrocyte distribution width (RBC) [Ratio] 13.3 % Normal 11.5-14.5 [facility] Comment on above: Performed By: ###ALAN DE LA CRUZ ####S PATHOLOGY [id number] [place], Hematocrit (Bld) [Volume fraction] 35.7 % Low 36.0-46.0 [facility] Comment on above: Performed By: ###ALAN DE LA CRUZ ####S PATHOLOGY [id number] [place], Hemoglobin (Bld) [Mass/Vol] 12.1 g/dL Normal 12.0-15.0 [facility] Comment on above: Performed By: ###ALAN DE LA CRUZ ####[facility] PATHOLOGY [id number] [place] [address], MCH (RBC) [Entitic mass] 34.8 pg High 26.0-34.0 The [facility] [place] Comment on above: Performed By: #### ALAN MCCARTY ####[facility] PATHOLOGY [id number] [place], MCHC (RBC) [Mass/Vol] 33.9 g/dL Normal 32.0-35.9 [facility] Comment on above: Performed By: ###ALAN DE LA CRUZ ####[facility] PATHOLOGY [id number] [place], MCV (RBC) [Entitic vol] 103 fL High 80-100 [facility] Comment on above: Performed By: ###ALAN DE LA CRUZ ####[facility] PATHOLOGY [id number] [place], MONOCYTE DISTRIBUTION WIDTH Normal [facility] Comment on above: Performed By: ###ALAN DE LA CRUZ ####S PATHOLOGY [id number] [place], [place], Platelet mean volume (Bld) [Entitic vol] 7.6 fL Normal 7.5-11.2 [facility] Comment on above: Performed By: #### ALAN MCCARTY ####[facility] PATH[facility] [id number] [place], Platelets (Bld) [#/Vol] 41 10*3/uL Critically low 150-400 [facility] Comment on above: Performed By: ###ALAN DE LA CRUZ ####[facility] PATH[facility] [id number] [place], RBC (Bld) [#/Vol] 3.48 10*6/uL Low 4.00-5.20 [facility] Comment on above: Performed By: ###ALAN DE LA CRUZ ####S PATHOLOGY [id number] [place], WBC (Bld) [#/Vol] 1.0 10*3/uL Critically low 4.5-11.5 Th e [facility] Comment on above: Performed By: ###ALAN DE LA CRUZ ####[facility] PATHOLOGY [id number] [place], [place], Care Plan Noteon 10-31-2022 [employer] C[employer]aker Authentication Interface Message Text Normal [facility] H AND Ryne 10-31-2022 Interior Plant C[employer]aker Authentication Interface Message Text Normal [facility] HEPATIC FUNCTION PANELon Albumin [Mass/Vol] 4.2 g/dL Normal 3.4-5.1 [facility] Comment on above: Performed By: #### FLACA Pierre, HEPATIC ####[facility] PATHOLOGY [id number] [place], [place], ALK 87 IU/L Normal 40-200 [facility] Comment on above: Performed By: #### FLACA Pierre, HEPATIC ####[facility] PATHOLOGY [id number] [place], ALT [Catalytic activity/Vol] 6 U/L Low 7-40 [facility] Comment on above: Performed By: ###FLACA Luevano, HEPATIC ####[facility] PATHOLOGY [id number] [place], AST [Catalytic activity/Vol] 11 U/L Normal 7-40 [facility] Comment on above: Performed By: #### FLACA Pierre, HEPATIC ####[facility] PATHOLOGY [id number] [place], Bilirubin [Mass/Vol] 0.7 mg/dL Normal 0.1-1.5 [facility] Comment on above: Performed By: #### FLACA Pierre, HEPATIC ####[facility] PATHOLOGY [id number] [place], Bilirubin.direct [Mass/Vol] 0.16 mg/dL Normal 0.10-0.30 [facility] Comment on above: Performed By: #### FLACA Pierre, HEPATIC ####S PATHOLOGY [id number] [place], Protein [Mass/Vol] 6.5 g/dL Normal 5.7-8.1 [facility] Comment on above: Performed By: #### FLACA Pierre, HEPATIC ####S PATHOLOGY [id number] [place], MAGNESIUMon 10-31-2022 Magnesium [Mass/Vol] 1.6 mg/dL Normal 1.6-2.8 [facility] Comment on above: Performed By: #### FLACA Pierre, HEPATIC ####S PATHOLOGY [id number] [place], MANUAL DIFF AND MORPHon 10-08 ATYPICAL LYMPHS % BY MANUAL COUNT 1 % Normal [facility] Comment on above: Performed By: #### ALAN MCCARTY ####[facility] PATHOLOGY [id number] [place], ATYPICAL LYMPHS ABS BY MANUAL COUNT 0.01 K/uL Normal [facility] Comment on above: Performed By: #### ALAN MCCARTY ####[facility] PATHOLOGY [id number] [place], BASOPHILS % BY MANUAL COUNT 1.0 % Normal <=1.9 [facility] Comment on above: Performed By: ###ALAN DE LA CRUZ ####[facility] PATHOLOGY [id number] [place], BASOPHILS ABS BY MANUAL COUNT 0.01 K/uL Normal 0.00-0.20 [facility] Comment on above: Performed By: #### ALAN MCCARTY ####S PATHOLOGY [id number] [place] [address], CELLS COUNTED TOTAL # IN BLOOD 100 Normal [facility] Comment on above: Performed By: #### ALAN MCCARTY ####[facility] PATHOLOGY [id number] [place], EOSINOPHILS % BY MANUAL COUNT 5.0 % High 0.1-4.0 [facility] Comment on above: Performed By: #### ALAN MCCARTY ####S PATHOLOGY [id number] [place] [address], EOSINOPHILS ABS BY MANUAL COUNT 0.05 K/uL Normal 0.00-0.70 [facility] Comment on above: Performed By: #### ALAN MCCARTY ####S PATHOLOGY [id number] [place] [address], LYMPHOCYTES % BY MANUAL COUNT 44.0 % Normal 24.0-44.0 The [facility] Comment on above: Performed By: #### ALAN MCCARTY ####S PATHOLOGY [id number] [place] [address], LYMPHOCYTES ABS BY MANUAL COUNT 0.44 K/uL Low 1.00-4.80 The [facility] Comment on above: Performed By: #### ALAN MCCARTY ####S PATHOLOGY [id number] [place], MACROCYTOSIS Slight Normal [facility] Comment on above: Performed By: #### ALAN MCCARTY ####[facility] PATHOLOGY [id number] [place], MONOCYTES % BY MANUAL COUNT 13.0 % High 2.0-11.0 [facility] Comment on above: Performed By: #### ALAN MCCARTY ####[facility] PATHOLOGY [id number] [place] [address], MONOCYTES ABS BY MANUAL COUNT 0.13 K/uL Low 0.20-1.00 [facility] Comment on above: Performed By: #### Antoinette NAVARRETE MDIFF ####S PATHOLOGY [id number] [place], NEUTROPHILS % BY MANUAL COUNT 36.0 % Normal 31.0-76.0 [facility] Comment on above: Performed By: #### Antoinette NAVARRETE MDIFF ####S PATHOLOGY [id number] [place], NEUTROPHILS ABS BY MANUAL COUNT 0.36 K/uL Low 1.50-8.00 The [facility] [place] Comment on above: Performed By: #### C MD LANDONIFF ####[facility] PATHOLOGY [id number] [place], [place], PATHOLOGY REVIEWon PATHOLOGIST SLIDE REVIEW Severe leukocytopenia and thrombocytopenia likely secondary to therapy effect. No blast cells, dysplastic changes or platelets clumps noted. Normal [facility] Comment on above: Order Comment: Elect ronically Signed Out by Rhonda Ortiz MD on 2022.I certify that I personally conducted the diagnostic evaluation of the above specimen(s) and have rendered the final diagnosis(es). Performed By: #### P R ####[facility] PATHOLOGY [id number] [place], [place], Progress Noteson 10-31-2022 Interior Plant C[employer]aker Authentication Interface Message Text Normal [facility] Interior Plant Caretaker Authentication Interface Message Text Normal [facility] Interior Plant Caretaker Authentication Interface Message Text Normal [facility] Interior Plant Caretaker Authentication Interface Message Text Normal [facility] Telephone Encounteron 2022 Interior Plant Caretaker Authentication Interface Message Text Patient was identified by name and date of . Brandon Cobos RN Pt wbc 1 plt 41. Critical results read to DR Smith, no intervention at this time Brandon Cobos RN Normal [facility] Interior Plant Caretaker Authentication Interface Message Text Normal [facility] Interior Plant Caretaker Authentication Interface Message Text Situation: Hard time breathing Background: pt called in to speak to nurse, pt on way to radiation and is demonstrating Assessment: pt sent to triage Recommendation: pt sent to triage Normal [facility] URINALYSIS WITH REFLEX CULTU RE PERFORMABLEon 10-31-2022 Glucose Ql (U) Negative Normal Negative [facility] Comment on above: Order Comment: A [...] around 50%) Performed By: #### C URINE ####[facility] Qlcbcujnt5195 [place], [place]#### urinalysiswcul ####[facility] PATHOLOGY EATDCANPLI[address] [place] [address] Protein (U) [Mass/Vol] 10 mg/dL Normal Negative [facility] Comment on above: Order Comment: A [...] around 50%) Performed By: #### C URINE ####[facility] Uquegyqhw5664 [place], [place]#### urinalysiswcul ####S PATHOLOGY [id number] [place], [place], SQUAMOUS EPITHELIAL 0-2 Normal 0-10 [facility] Comment on above: Order Comment: A [...] around 50%) Performed By: #### C URINE ####[facility] Uifqvdwsi8386 [place], [place]#### urinalysiswcul ####[facility] PATHOLOGY [id number] [place] [address], U APPEAR Clear Normal Clear [facility] Comment on above: Order Comment: A [...] around 50%) Performed By: #### C URINE ####[facility] Swamojfix2584 [place], [place]#### urinalysiswcul ####[facility] PATHOLOGY [id number] [place], [place], U BACTERIA Few Normal [facility] Comment on above: Order Comment: [...] around 50%) Performed By: #### C URINE ####[facility] Foauqrctw5221 [place], [place]#### urinalysiswcul ####S PATHOLOGY CZRJJKNFHZ3084 [place], [place], U BILI Negative Normal Negative [facility] Comment on above: Order Comment: [...] around 50%) Performed By: #### C URINE ####[facility] Rgiviztym7575 [place], [place]#### urinalysiswcul ####[facility] PATHOLOGY [id number] [place] [address], U BLOOD Trace Abnormal Negative [facility] Comment on above: Order Comment: A [...] around 50%) Performed By: #### C URINE ####[facility] Iwhmxrjj[address] [place], [place] [address]#### urinalysiswcul ####[facility] PATHOLOGY [id number] [place] [address], U COLOR Light Yellow Normal Colorless [facility] Comment on above: Order Comment: [...] around 50%) Performed By: #### C URINE ####[facility] Yseulqjxx7992 [place], [place]#### urinalysiswcul ####[facility] PATHOLOGY [id number] [place] [address] U KETONE Negative Normal Negative The [facility] Comment on above: Order Comment: A [...] around 50%) Performed By: #### C URINE ####[facility] [address]cdcqkxx[address] [place], [place] [address]#### urinalysiswcul ####[facility] PATHOLOGY DIBCZCULDH[address] [place] [address] U LEUK Positive Abnormal Negative The [facility] Comment on above: Order Comment: A [...] for pyuria. Performed By: #### C URINE ####[facility] Pwnlyjezw6646 [place], [place]#### urinalysiswcul ####S PATHOLOGY [id number] [place], [place], U NITRITE Negative Normal Negative The [facility] Comment on above: Order Comment: A [...] around 50%) Performed By: #### C URINE ####[facility] [address]tr[address] [place], [place] [address]#### urinalysiswcul ####[facility] PATHOLOGY [id number] [place] [address], U PH 6.0 Normal 5.0-8.0 [facility] Comment on above: Order Comment: A [...] around 50%) Performed By: #### C URINE ####[facility] Jpvqxuinf[address] [place], [place] [address]#### urinalysiswcul ####S PATHOLOGY RAQOCIADDR2332 [place], [place], U RBC 3-5 Abnormal 0-2 [facility] Comment on above: Order Comment: A [...] around 50%) Performed By: #### C URINE ####[facility] Qmaytjrll0271 [place], [place]#### urinalysiswcul ####[facility] PATHOLOGY [id number] [place], [place], U SG 1.012 Normal <=1.030 The [facility] Comment on above: Order Comment: A [...] around 50%) Performed By: #### C URINE ####[facility] Rxhlbbfmp6488 [place], [place]#### urinalysiswcul ####[facility] PATHOLOGY [id number] [place] [address], U UROBILI Negative Normal Negative The [facility] Comment on above: Order Comment: A [...] around 50%) Performed By: #### C URINE ####[facility] Vnayfrnpz8963 [place], [place]#### urinalysiswcul ####[facility] PATHOLOGY [id number] [place], [place], U WBC 3-5 Abnormal 0-2 The [facility] Comment on above: Order Comment: A [...] around 50%) Performed By: #### C URINE ####[facility] Fbtbadyel6423 [place], [place]#### urinalysiswcul ####[facility] PATHOLOGY [id number] [place] [address], URINE CULTUREon 10-31-2022 Bacteria identified Cx Nom (U) C URINE: Positive Culture Report ESCHERICHIA COLI 10,000-50,000 CFU/mL Escherichia coli Normal The [facility] Comment on above: Order Comment: 1,000 - 10,000 CFU/ml No significant growth; skin/urogenital contamination present. Performed By: #### C URINE ####[facility] [address]ucxxyiu[address] [place], [place] [address]#### urinalysiswcul ####[facility] PATHOLOGY [id number] [place], [place], HARI Normal The [facility] Comment on above: Order Comment: 1,000 - 10,000 CFU/ml No significant growth; skin/urogenital contamination present. Performed By: #### C URINE ####[facility] L[address] [place], [place] [id number]#### urinalysiswcul ####[facility] PATHOLOGY [id number] [place] [address], XR Chest Single viewon 10-31 EXAMINATION: XR CHEST AP OR PA 1 VIEW 10/31/2022 09:02 PM CLINICAL HISTORY: Cough; Fever ASSOCIATED DIAGNOSIS: Fever, unspecified fever cause ORDERING PROVIDER: SOULEYMANE WHITLEY TECHNOLOGISTS NOTE: COMPARISON: CT CHEST/ABD/PELVIS W/ CONTRAST 10/03/2022, [...] unspecified fever cause ORDERING PROVIDER: SOULEYMANE WHITLEY TECHNOLOGISTS NOTE: COMPARISON: CT CHEST/ABD/PELVIS W/ CONTRAST 10/03/2022, 2:29 PM FINDINGS: Lines, tubes, and devices: None. Lungs and pleura: Emphysematous changes are again noted without focal pulmonary consolidation. No pleural effusion or pneumothorax. Cardiomediastinal silhouette: The cardiomediastinal silhouette is prominent in size and likely exaggerated by AP technique. Musculoskeletal: Degenerative changes in the bilateral acromioclavicular joints. 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 MACRO: None [facility] Study observation (narrative) [facility] XR Chest Single viewOrdered By: Anand Lilly on 10-31-2022 [facility] Work Phone: Progress Noteson 10-25-2022 Interior Plant Caretaker Authentication Interface Message Text This encounter was opened in error. Patient was a No-Show. Please disregard. Patient left without being seen. Normal [facility] Progress Noteson 10-19-2022 Interior Plant Caretaker Authentication Interface Message Text Normal [facility] Interior Plant Caretaker Authentication Interface Message Text .Patient was identified by name and date of . Alida Cano .Patient at risk for falls:No Falls Risk protocol implemented: No Normal The [facility] Addendum Noteon 10-16-2022 Interior Plant Caretaker Authentication Interface Message Text Encounter addended by: Ky Vegas APRN-BRIEN on: 10/16/2022 5:00 PM Actions taken: Clinical Note Signed Normal The [facility] Patient Instructionson 10-16 Interior Plant Caretaker Authentication Interface Message Text Normal The [facility] Progress Noteson 10-16-2022 Interior Plant Caretaker Authentication Interface Message Text Normal [facility] Interior Plant Caretaker Authentication Interface Message Text Normal [facility] Interior Plant Caretaker Authentication Interface Message Text Normal [facility] Progress Noteson 10-12-2022 Interior Plant Caretaker Authentication Interface Message Text Normal [facility] Interior Plant Caretaker Authentication Interface Message Text Xeloda prescription on file and can be filled here at our [facility] with a $11.16 co-pay. 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 Thank you for this referral, Naheed Vinson CPhT Normal The [facility] Telephone Encounteron 2022 Interior Plant Caretaker Authentication Interface Message Text Patient called for Mychart help. Provided patient with her mychart activation code. Jennifer Nash RN, BSN, MEd, CHFN, RN-, [facility] Sheet Fed Printer [facility] [phone] Normal [facility] Interior Plant Caretaker Authentication Interface Message Text Left vm with appts. Tried calling several times. Normal [facility] Progress Noteson 10-06-2022 Interior Plant Caretaker Authentication Interface Message Text Normal [facility] Interior Plant Caretaker Authentication Interface Message Text Normal The [facility] BASIC METABOLIC PANELon - Anion gap [Moles/Vol] 12 mmol/L Normal 10-20 [facility] Comment on above: Performed By: #### H FLACA FROST, MG ####[facility] [id number] [place], [place], Calcium [Mass/Vol] 9.8 mg/dL Normal 8.4-10.4 [facility] Comment on above: Performed By: #### H FLACA FROST, MG ####[facility]Y [id number] [place], [place], Chloride [Moles/Vol] 106 mmol/L Normal 97-111 [facility] Comment on above: Performed By: #### H FLACA FROST, MG ####[facility] [id number] [place], [place], CO2 [Moles/Vol] 26 mmol/L Normal 21-30 [facility] Comment on above: Performed By: #### H FLACA FROST, MG ####[facility] PATH[facility]Y [id number] [place], [place], Creatinine [Mass/Vol] 1.13 mg/dL High 0.50-1.10 [facility] Comment on above: Performed By: #### FLACA HERNANDEZ, MG ####[facility] PATH[facility]Y [id number] [place], [place], ESTIMATED GFR (CKD-EPI) 55 mL/min/1.73sqm Low >=60 [facility] Comment on above: Result Comment: 2020 [...] Inclusion of Race in Diagnosing Kidney Disease. Citizen Of [place] Journal of Kidney Diseases 2021;79(2):268-88.e1.2. N Engl J Med 2020 Vol. 385 Issue 19 Pages 7537-8502 Performed By: #### FLACA HERNANDEZ, MG ####S PATHOLOGY [id number] [place], [place], Glucose [Mass/Vol] 90 mg/dL Normal 80-116 [facility] Comment on above: Performed By: #### FLACA HERNANDEZ, MG ####S PATHOLOGY [id number] [place], [place], Potassium [Moles/Vol] 5.4 mmol/L High 3.3-5.3 [facility] Comment on above: Performed By: #### FLACA HERNANDEZ, MG ####[facility] [id number] [place], [place], Sodium [Moles/Vol] 139 mmol/L Normal 135-148 [facility] Comment on above: Performed By: #### FLACA HERNANDEZ, MG ####[facility] PATHOLOGY [id number] [place], [place], Urea nitrogen [Mass/Vol] 21 mg/dL Normal 8-22 [facility] Comment on above: Performed By: #### H EPATIC, CH8, MG ####[facility] PATHOLOGY [id number] [place], [address] Basic metabolic 2000 panelon 10-03-2022 Anion gap [Moles/Vol] 12 mmol/L 10 - 20 [facility] Calcium [Mass/Vol] 9.8 mg/dL 8.4 - 10.4 mg/dL [facility] Chloride [Moles/Vol] 106 mmol/L 97 - 111 mmol/L [facility] CO2 [Moles/Vol] 26 mmol/L 21 - 30 mmol/L [facility] Creatinine [Mass/Vol] 1.13 mg/dL High 0.50 - 1.10 mg/dL [facility] GFR/1.73 sq M.predicted MDRD (S/P/Bld) [Vol rate/Area] 55 mL/min/{1.73_m2} Low - PINF [facility] Comment on above: 2020 CKD EPI Equatio [...] Inclusion of Race in Diagnosing Kidney Disease. Citizen Of [place] Journal of Kidney Diseases 2021;79(2):268-88.e1. 2. N Engl J Med 2020 Vol. 385 Issue 19 Pages 5582-8891 Glucose [Mass/Vol] 90 mg/dL 80 - 116 mg/dL [facility] Interpretation and review of laboratory results Abnormal [facility] Potassium [Moles/Vol] 5.4 mmol/L High 3.3 - 5.3 mmol /L [facility] Sodium [Moles/Vol] 139 mmol/L 135 - 148 mmol/L [facility] Urea nitrogen [Mass/Vol] 21 mg/dL 8 - 22 mg/dL [facility] CBC WITH DIFFERENTIALon 09-08 Basophils (Bld) [#/Vol] 0.05 10*3/uL Normal 0.00-0.20 The [facility] Comment on above: Performed By: #### C BCDSAT ####[facility] [id number] [place], [place], Basophils/100 WBC (Bld) 0.8 % Normal <=1.9 [facility] Comment on above: Performed By: #### C BCDSAT ####[facility] PATHOLOGY [id number] [place], [place], Eosinophils (Bld) [#/Vol] 0.18 10*3/uL Normal 0.00-0.70 [facility] Comment on above: Performed By: #### C BCDSAT ####[facility] PATHOLOGY [id number] [place], [place], Eosinophils/100 WBC (Bld) 2.8 % Normal 0.1-4.0 [facility] Comment on above: Performed By: #### C BCDSAT ####[facility] PATHOLOGY [id number] [place], [place], Erythrocyte distribution width (RBC) [Ratio] 14.0 % Normal 11.5-14.5 [facility] Comment on above: Performed By: #### C BCDSAT ####[facility] PATHOLOGY [id number] [place], [place], Hematocrit (Bld) [Volume fraction] 45.7 % Normal 36.0-46.0 [facility] Comment on above: Performed By: #### C BCDSAT ####[facility] PATHOLOGY [id number] [place], [place], Hemoglobin (Bld) [Mass/Vol] 15.5 g/dL High 12.0-15.0 [facility] Comment on above: Performed By: #### C BCDSAT ####[facility] PATHOLOGY [id number] [place], [place], Lymphocytes (Bld) [#/Vol] 1.75 10*3/uL Normal 1.00-4.80 [facility] Comment on above: Performed By: #### C BCDSAT ####[facility] PATHOLOGY [id number] [place], [place], Lymphocytes/100 WBC (Bld) 27.0 % Normal 24.0-44.0 [facility] Comment on above: Performed By: #### C BCDSAT ####[facility] PATHOLOGY [id number] [place], [place], MCH (RBC) [Entitic mass] 35.1 pg High 26.0-34.0 [facility] Comment on above: Performed By: #### C RICHARAT ####[facility] PATHOLOGY [id number] [place], [place], MCHC (RBC) [Mass/Vol] 33.8 g/dL Normal 32.0-35.9 [facility] Comment on above: Performed By: #### C RICHARAT ####[facility] PATHOLOGY [id number] [place], [place], MCV (RBC) [Entitic vol] 104 fL High 80-100 The [facility] Comment on above: Performed By: #### Antoinette MCQUEENAT ####[facility] PATHOLOGY [id number] [place], [place], MONOCYTE DISTRIBUTION WIDTH Normal The [facility] [place] Comment on above: Performed By: #### Antoinette MCQUEENAT ####[facility] PATHOLOGY [id number] [place], [place], Monocytes (Bld) [#/Vol] 0.52 10*3/uL Normal 0.20-1.00 The [facility] Comment on above: Performed By: #### Antoinette MCQUEENAT ####[facility] PATHOLOGY [id number] [place], [place], Monocytes/100 WBC (Bld) 8.1 % Normal 2.0-11.0 The [facility] Comment on above: Performed By: #### Antoinette BCGINAAT ####[facility] PATHOLOGY [id number] [place], [place], Neutrophils (Bld) [#/Vol] 3.97 10*3/uL Normal 1.50-8.00 [facility] Comment on above: Performed By: #### C BCGINAAT ####[facility] PATHOLOGY [id number] [place], [place], Neutrophils/100 WBC (Bld) 61.3 % Normal 31.0-76.0 The [facility] [place] Comment on above: Performed By: #### C RICHARAT ####[facility] PATHOLOGY [id number] [place], [place], Platelet mean volume (Bld) [Entitic vol] 8.4 fL Normal 7.5-11.2 The [facility] Comment on above: Performed By: #### C BCDSAT ####[facility] PATHOLOGY [id number] [place], [place], Platelets (Bld) [#/Vol] 149 10*3/uL Low 150-400 The [facility] Comment on above: Performed By: #### C BCDSAT ####[facility] PATHOLOGY [id number] [place], [place], RBC (Bld) [#/Vol] 4.40 10*6/uL Normal 4.00-5.20 The [facility] Comment on above: Performed By: #### C BCDSAT ####[facility] PATHOLOGY [id number] [place], [place], WBC (Bld) [#/Vol] 6.5 10*3/uL Normal 4.5-11.5 The [facility] System Comment on above: Performed By: #### C BCDSAT ####[facility] PATHOLOGY [id number] [place], [place], Basophils (Bld) [#/Vol] 0.05 10*3/uL 0.00 [...] 15.5 g/dL High 12.0 - 15.0 g/dL [facility] Interpretation and review of laboratory results [...] (Bld) 61.3 % 31.0 - 76.0 % [facility] Platelet mean volume (Bld) [Entitic vol] 8.4 fL 7.5 - 11.2 fL [facility] Platelets (Bld) [#/Vol] 149 10*3/uL Low 150 - 400 K/uL [facility] RBC (Bld) [#/Vol] 4.40 10*6/uL [facility] WBC (Bld) [#/Vol] 6.5 10*3/uL 4.5 - 11.5 K/uL [facility]ST/ABD/PELVIS W/ CONTR Kiko 10-03-2022 CT CHEST/ABD/PELVIS W/ CONTRAST Normal [facility] Chest and Abdomen and Pel vis W contrast IVOrdered By: Boris Taylor on 10-03-2022 CT DLP 818.13 (mGy.cm) [facility] Work Phone: CT Series Topogram,C/A/P ,KIDNEY,BLADDER [facility] Work Phone: CTDI VOL 0.10 (mGy),6.77 (mGy),7.11 (mGy),6.44 (mGy) [facility] Work Phone: PHANTOM TYPE IEC Body Dosimetry Phantom,IEC Body Dosimetry Phantom,IEC Body Dosimetry Phantom,IEC Body Dosimetry Phantom [facility] Work Phone: [facility] Work Phone: CT Chest and Abdomen and [...] ASSOCIATED DIAGNOSIS: Anal cancer (HCC) ORDERING PROVIDER: [facility] TECHNOLOGISTS NOTE: COMPARISON: None TECHNIQUE: Contiguous axial [...] infrarenal aortic segment as detailed. MACRO: None [facility] Radiology Study observation (narrative) [facility] [place] HEPATIC FUNCTION PANELon Albumin [Mass/Vol] 4.8 g/dL Normal 3.4-5.1 [facility] Comment on above: Performed By: #### H FLACA FROST, MG ####[facility] PATH[facility] [id number] [place], [place], ALK 119 IU/L Normal 40-200 [facility] Comment on above: Performed By: #### H FLACA FROST, MG ####[facility] PATH[facility]Y [id number] [place], [place], ALT [Catalytic activity/Vol] 13 U/L Normal 7-40 [facility] Comment on above: Performed By: #### FLACA HERNANDEZ, MG ####S PATHOLOGY [id number] [place], [place], AST [Catalytic activity/Vol] 21 U/L Normal 7-40 The [facility] Comment on above: Performed By: #### FLACA HERNANDEZ, MG ####S PATHOLOGY [id number] [place], [place], Bilirubin [Mass/Vol] 0.7 mg/dL Normal 0.1-1.5 The [facility] Comment on above: Performed By: #### FLACA HERNANDEZ, MG ####S PATHOLOGY [id number] [place], [place], Bilirubin.direct [Mass/Vol] 0.12 mg/dL Normal 0.10-0.30 The [facility] Comment on above: Performed By: #### FLACA HERNANDEZ, MG ####S PATHOLOGY [id number] [place], [place], Protein [Mass/Vol] 7.6 g/dL Normal 5.7-8.1 The [facility] Comment on above: Performed By: #### FLACA HERNANDEZ, MG ####S PATHOLOGY [id number] [place], [place], Laboratory - Chemistry and C hemistry - challengeon 10-03-2022 Albumin [Mass/Vol] 4.8 g/dL 3.4 - 5.1 g/dL [facility] ALP [Catalytic activity/Vol] 119 U/L [facility] ALT [Catalytic activity/Vol] 13 U/L [facility] AST [Catalytic activity/Vol] 21 U/L [facility] Bilirubin [Mass/Vol] 0.7 mg/dL 0.1 - 1.5 mg/dL [facility] Bilirubin.direct [Mass/Vol] 0.12 mg/dL 0.10 - 0.30 mg/dL [facility] Magnesium [Mass/Vol] 1.8 mg/dL 1.6 - 2.8 mg/dL [facility] Protein [Mass/Vol] 7.6 g/dL 5.7 - 8.1 g/dL [facility] MAGNESIUMon 10-03-2022 Magnesium [Mass/Vol] 1.8 mg/dL Normal 1.6-2.8 The [facility] Comment on above: Performed By: #### H MARGOT, KLAUDIA8, MG ####[facility] PATH[facility] [id number] [place], [address] No Panel Informationon 10-03 Interpretation and review of laboratory results Normal [facility] Progress Noteson 10-03-2022 Interior Plant Caretaker Authentication Interface Message Text Normal [facility] Interior Plant Caretaker Authentication Interface Message Text Normal [facility] Interior Plant Caretaker Authentication Interface Message Text Normal [facility] Interior Plant Caretaker Authentication Interface Message Text Normal [facility] Interior Plant Caretaker Authentication Interface Message Text Normal [facility] Telephone Encounteron 2022 Interior Plant Caretaker Authentication Interface Message Text Ms. Maldonado appreciated to reschedule an appt with Dr. Smith from 10/04 to 10/03. 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 Maldonado about the tumor board recommendations which include chemotherapy and radiation. I explained she also needs a staging CT chest/abd/pelvis. It is ordered. She will call and schedule it. Yoselin Padron MD Normal [facility] Tumor Board Noteon 3 Interior Plant Caretaker Authentication Interface Message Text Normal [facility] Telephone Encounteron 2022 Interior Plant Caretaker Authentication Interface Message Text Normal [facility] Telephone Encounteron 2022 Interior Plant Caretaker Authentication Interface Message Text Attempted to reach Ms. Maldonado to give her the path results from her surgery on 08/28/2022 but her voicemail is full. Yoselin Padron MD Normal [facility] Anesthesia Postprocedure Tati luationon 08-28-2022 Interior Plant Caretaker Authentication Interface Message Text Normal [facility] PSE Call H AND Ryne 3 Interior Plant Caretaker Authentication Interface Message Text Normal [facility] Telephone Encounteron 2022 Interior Plant Caretaker Authentication Interface Message Text Patient has returned my call and confirmed her new date for her biopsy, August 28, 2022. Karolina Johnson Normal [facility] Interior Plant Caretaker Authentication Interface Message Text Normal [facility] Telephone Encounteron 2022 Interior Plant Caretaker Authentication Interface Message Text Normal [facility] ONC - Otheron 07-27-2022 ONC - Other [id number] 3#1.00CD:127 Normal [facility] Progress Noteson 07-25-2022 Interior Plant Caretaker Authentication Interface Message Text Normal [facility] Interior Plant Caretaker Authentication Interface Message Text Patient was identified by name and date of . Marek Bonilla Body Mass Index is 21.37. Body Surface Area is 1.93 square meters according to the formula of Maggy and Maggy. Patient at risk for falls:No Falls Risk protocol implemented: No Normal [facility] Telephone Encounteron 2022 Interior Plant Caretaker Authentication Interface Message Text Normal [facility] Coding Summary.on 06-12-2022 Coding Summary. CD:[id number] Gh0bWw+PGhlYWQ+PE1FV SIyL71ftIJqeS1BX0bPV I7RWSRZUDHGCL9XTY4zi HM3WVdkT5VxtlMc DpamyPArWE65PNi6MPU1 nNufKWdjaR6vbZGrJ4y8 SbVqIR66mW96ZMroCSBb YmW9PjWmdjbrwPYy U6rvZlDajPQeHww+PHRh YmxlIHdpZHRoPScxMDAl YtChpWtcMC6vYi2iIRFi LWNvbGxhcHNlOiBj t9svRUMsGBvnFG3jjLtw B0MysZU6OERdn1e0Aa73 dHI+XPAwHTV3yQrvIEan t065FgYpr2jfNDG4 aFQlPJhrQZM7N46qv0L1 DPCwWSPtOZO7nOD0eW2r lFruaqelS5YehQDzKxV4 MMV5cCXsmW9vuKez clfxoF1zVgb+Y60QEG1X LEIBMU6ZVcy1I2UtCtax dHI+WT44OYLkLC04sQCw wKIya0vlzAc6SgBt PRDnGWQ7jAlrFJjgp7Ob VSCyC41hzEInq4S3WBXz nJcijDVoKjOenQB7rX5m TEogqjuzx0zjhnjc Bvwrg7mcqr46yV54V22g UFyrALSbDFE5MTUjBBFm hIcypm8irH0cTi3+IDxj i1qnb6omfSj8BsVo QHRuggEopCmwONM7w0Ll Ur40X9EhtPufl5WaFpm9 lt78gZGfg8J2vMG5OMhv NXAubT4pMGalLuK2 CKAwFeRsfT33qYIlTQal Dk7moCezbSpzBW1cDEUf jjdjMPLtrJ3fQEMakFSo jRhrNN4zMPTuufvp a284IoSeHBI9NKJbxOZc G0NbwR8eCtKbNBCyQMFd W2EniHBjMGunX358QFyn WgV3IVCdpkHiR1Th TUAufAkvGtH0m8I1Cd2W p5MenzylJZM2AHfqTYTm LrH1GaMuKvZ4O5SsLua1 VLVcrVtdFA3tR7Xg ZRCuxptvknrixWK8YYCh XVHmrO08nQVzPRdpBe1c c8X7q630WWIqTBTouG16 Vz9cnPveBRMnnPMH vR2vdqqnk0zrbernSvSz TTTpBNj1WLj9WAGifInr IhLeUDP3KkB3VHF4xFJf uH9jsGhzoktmqH8t Oyc+D64nvP9sOQQ0MOA2 sscoPPBflmUwLK78PQ96 E5KqZpkddQPocVX+PGRp cjEapKvrLN2xLjAf e6tyo0TkUTykR5UxRKCl MChfZdl1BRNiBEB3uSN5 eD5oXUBsDCkim7U4iIN0 O0TdbrNiag8fq4vx IEDhFOhsZ11vuJPxz4G1 FDTmtOC2ZWNlfOkgLhXc bP65Mty+ZAYytXkbo5Hi Mgmjv3fzk5kksCc5 IjMwJSIgdmFsaWduPSJ0 s8CxZg03U20fIYzwMGKn DZTeWNDoUMNwmRxmgs4v yY0xYt2+PGNvbCB3 dMD1zV9sUIRpZgX7YIuz J658UmKluVUsDmytb8vd y9iihLg0JcXgBADvjnEb gAmbDQH6y7SsJp84 J32aJBcnUGWlXVDeCAWp EWXsjBvqqf0zwW1iIi1+ MI1xf2icpb30vV73oEY+ QEJeNLK5jVnlKUao VAGfqD2bNBvoVgE0XHYk PkYpcL82pUFvWUdmXc8c fBvatCieFI3rBVIecciz n598JeZta4tsRSZh kJOuNQytPAH5C52az1Z0 BDFbHDJpTTO7vIG1qM4l bGlnbjogbGVmdDsgdmVy gFjdBEamPBrrQ931 IHRvcDsnPlBhdGllbnQg FcVfNJb1S9PsRdu5GNVo lUriAW8ryGLxWYcfRr4c hNokjJeoCC4oJFUl gxwuf384KsHnv4wdTKIl uXXdIPewLEE5D24gs1Q9 AIUwVFXnJUJ5aTH4uA5y bGlnbjogbGVmdDsg tmMahGczBTomZWpiW906 IHRvcDsnPkJpcnRoIERh rJZ1RV02SR37iVPra9L1 dVX9K2AxCHGnvzwi hlattAG2EGVzGJLdgB27 Zu1cqBpmHi2eZSMrFEG8 ZVHqwVKcR6HltO4zNrQp UAPaTRPsN9FraARi FTzbF951EUxvKeC3BFLy skTiF7LkECSotJjkTvC3 j9R6Ev9LD2D6QK54YV66 aXIgx8J9dGO3I6Vs XTHxqvdpzbptqGQ8TWAi RQKfcV77Yj7zyVudAt6z DAVvEAQ4QNUwsWEcF9Zw tM1xQdNtGZLxAJEm B1XwiCKzGFtzM948TIol RuH1MDAhwqAhH6SxCCOw cKvwCiM1i1V4Rc0CDUt1 QQ74ZP73uLMye9J3 pBE7R7SuHLIrbszkashv kVW1VFWlWRDmrY91Ss0a hMxwTj3kDDLmAPS2DHCa zRAyA2GllE3vMmPg ERZxISOzE1BiqUXvRFlh H111OMzlTdO0XOCvpmKm T9GaHPEftAswSfI4i7A0 Iw3PDYTcWD04DKN0 bWD2WS35SH06W0InXrnn dGFibGU+PHRhYmxlIHdp ZHRoPScxMDAlJyBzdHls OP2yAs2hNDKdAPVf cHszvTUlGlEoy0vhPNZc GCfoAO5zmYduL2MvlEC3 WRUcx5l6Mz08M97wA9Hy dXA+JUBahDY2hCE1 yW5hCtIaUtS2STryS445 LsTpjFNwBoicr8bgz2tq oBz0McE3FRZckxZszRvp OFO1u3TxCu27M82w IHdpZHRoPSIxNSUiIHZh zAggqt3bzQ6lHw6+PGNv iLD1eQC8nY4dYcOzNhU7 SHbqT920GdDoqUQf Ybwhi6vsn5dztKv8CkCr XLLtcxNptOivUTA1o4Pt Wf17F3VfoJqjb8CwOrd5 kz37bYRjx4E6dCQ3 T4OaAVBsqbttjHByuWfo GW2oQBArphyrEWJjcY8c KMFkQ3z1QjXvFaL4TTss Q9BccrG7IIZskMGy GFyiXXF0N86lq4F0LOKa AOLnNYA8jRI9xM6hhUsi bjogbGVmdDsgdmVydGlj APbdRRkuF539RAYg hLfvCZTcqR2iNIGyrYWz eEdnDV2yUUFtuntbCytN SfOKPUauG8EQVLPKVgHP AK76MQ09mRObg0K9 dAE2U1JaODBwgrxwejgf rRD1NOSfDMVlcG68tYOn BWsjJa4ah1L1v963WNPb YIOuvP09Rh9khHkg OPVvbKOImW7hiydvx8if qemiQdFzWDEiRCv7GBj4 DVCtvEoaIrDqNJC6KmJ9 PMF8eQVfjW2sxCik epbxcF4lYet+MDcvMjYv KGf6WTnixFE+PHRkIHN0 qVebAUwbNFFpgW4vJIAp W4t2WvEsLyU2XQwf G9GpTHEwnttvHm77cX3d SpQvQaI4GFhrF7FehhE5 RUDwpLVvUSduMHC7N73c x3Q2CEDcJOUhCMH5 zIW0hF1fdYhasnwxjGEw dDsgdmVydGljYWwtYWxp E680DZBxbYboGzJqCEtp DUIaCH62TD49zNVr m0V7fBZ2C4EvFJBozifc obtmhPA1UORsDJAfbQ76 cPNzGVihGt2cn3A4d968 RXEnPLHzlC56Av1y wFwkZRVobNKYzG8bdbxx j1uxwpjiCsSlEVNaHEz6 OAc5TCDpxHsdFvFgMEK4 DrA0CYA7vARouK4e gOlloiyzzL6zLmh+RmVt BLybTD28UM34dTAiy7G3 mHJ6B7QqEMPbpremovrc cIU4ALPhUECagY79 lVIlGRapTb3it8J5c625 BLAzAMWdfQ22Hg7vbLrj MDTawMXUnN4vypoco0ct cjogIzAwMDAwMDt0 QOq0XQRasAvhBhIbEGS0 LuM7BVW9mVPguI2zfMdl mmwciE2lToe+B6I5sUH2 aWVudDwvdGQ+PC90 nb57Q4VsWpqzTje3BFMf IVA4hGF6gS0wZUFfPHxb o8T6kGN9G4LsfkIsne4x x0nbDWNcXLbeC69e mSWtw4K4OCHaeQT7OXPz zLlkBsMcgF34Ezh+PGNv bYzph7DnFixza2vto8zl zWd6QsWjZZQzfhGo iUvzSFR6k8DsOr81O23v IHdpZHRoPSIzMCUiIHZh dXiggt1ofK4aXf3+PGNv sON3tOZ8rO1hHeYc EaS9QMsfL384JuTytHGk Zhqch1gdb1nukKb9DbBh XOWbcaOsvUgwODG9v5Bb Sk21T3OcvUarz3Bc Ukk3kb15mLDsl4P2xWA4 Q4YzBHOjlnvywUWuhOff WM1yCQSawmseSXCahW1d HWRuP6c4NdAvRmM7 XIvmI5SyvdW7ZUDzqXQx VSBnyLYArW1sonclm4dx idgnKvDgVWMyHFx3IMw8 LWFsaWduOiBsZWZ0 NwH6SOA2vLZthR4zpWak fcrexI7wQck+JHi8h5jw iWSoYC1oeNB0MU14QW99 tMEyo0Y6rAN0R5Uh FRDpzntwuexwrLS6MDNi FNGwdV93Pt8xeVmxUk2r WSVoAHX6RILadNPgL6Iz dT0wJgFzPHCcOEWw H9JvdVRnWMgqO118GNdl OcG9OWHqniQmM9ApAGEc lGteHtK7t4C5Bm7PCT79 DV98XS18cYToh7O2 cMP4Y9JyRFRjqpcroljs sVH5IXNeEUHrrB78Rf7c jNlqXu5aTRIaLTQ5ETPy zDElQ6HcvM7mBpEy ZBRdKBBnN1MxrCHiOSlq Y164PUrzEeQ8TXRqnzGx G8NlPBOdnBiiKzQ6j9F7 Yx2KIo90AK49MY43 rYNiu3T6eOT3H2MwHFEi zajgfvktuGW3SBUiEJTx kU42Ec1sgKbjZk7oSNZc ZJT2UCFyyTQmB2Eb sF7qOiKgWCVjRLDbH0Ui mTPtOZqhU791HWdrExA8 MKWqmhBcO7NwKTAeuPer UbV9y6A4Yh0QGAus agi6T7HjHfzwyCP+PC90 PALeST04rUDzlCBmr1em [id number] [id number] bGFw (more content not included)... Normal [facility] Oncology Progress Noteon Oncology Progress Note Patient: AMBER MALDONADO Age: 61 years Sex: Female : 1960 Associated Diagnoses: None Author: Nahum Jones DO History of Present Illness 61-year-old female referred for anal cancer. Outpatient medications include Claritin, sertraline, Vistaril. Past medical history includes only depression and seasonal allergies. Sometime between 2013 and 2015 [facility] have a perianal carcinoma in situ. She had seen Dr. Desean Voss at [facility], given topical chemotherapy cream for 6 months and laser treatments with resolution of her symptoms. Sometime in early 2021 she noted anal discomfort. She had seen dermatology who performed biopsy and noted squamous cell carcinoma in situ. She was then referred to [facility] for anoscopy. She was having some bright red blood per rectum. I have biopsies from November 04, 2021 which were second opinion from a previous biopsy that was performed on July 19, 2021. From [facility] notes left anal verge perianal biopsies with a high-grade anal intraepithelial neoplasia AIN 3. Also AIN 3 is noted at the right anal verge, the left lateral perianal area of the left posterior perianal area and the right lateral perianal area. Apparently the original report from 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 She had seen Dr. Padron at [facility] in July 2021 and performed multiple biopsies [...] Normal range of motion. Integumentary: Warm, Dry, [place]. Neurologic: Alert, Oriented, Normal sensory. Psychiatric: Cooperative, [...] Discharge Planning: Nahum Jones mri rectum/pelvis at [facility]. pet/ct at [facility]. f/u with Dr. España and me same day after this MRI and PET/CT. . Locally advanced anal cancer. This has gone untreated for many months now. She needs restaging prior to hopefully concurrent chemoradiation. i stressed to her the importance of having (more content not included)... Normal [facility] ONC - Otheron 06-06-2022 ONC - Other [id number] 79#1.00CD:127 Normal [facility] ONC - Other [id number] 27#1.00CD:127 [facility] Consent for Treatmenton 05-11 Consent for Treatment [id number] #1.00CD:127 [facility] Oncology Noteon 06-01-2022 Oncology Note Oncology Cripple [facility]aser Office Visit/Treatment Note Current Patient Status/Reason: Patient here for scheduled Initial Clinic Visit. I accompanied Dr. Jones and Leah, medical student in room. Extensive medical history reviewed. Patient informed she has [employer] [employer]. Patient informs tumor is about the same as in December 2021. Treatment Plan: MRI and PET at [facility], refer to Dr. Escamilla for radiation needs appointment with Dr. Jones @ [facility] same day Follow-Up Appointment Info/Referrals: at [facility] Resources Offered: Discussed with patient to talk to her correctional counselor/case manager at the [facility] to see if she can switch plans, since [employer] is not accepted at [facility]. Also, patient will talk to [facility] financial counseling to see what her options are. [facility] Comment on above: Result Comment: Elec tronically Signed By: Hari MASON, Kym Lord\.br\Date and Time Signed: 06/01/22 12:57 EST Physician Orderon 06-01-2022 Physician Order [id number] 1#1.00CD:127 [facility] ONC - Otheron 05-23-2022 ONC - Other [id number] 1#1.00CD:127 [facility] Outside Oncologyon Outside Oncology [id number] 1#1.00CD:127 [facility] Outside Pathology Reporton 0 05-23-2022 Outside Pathology Report [id number] 2#1.00CD:127 [facility] Outside Radiologyon 05-23-19 Outside Radiology [id number] 0#1.00CD:127 [facility] AMB - Narrative Note-Social Workon 01-13-2022 AMB - Narrative Note-Social Work Discipline and Description: Discipline: Social Work Topic: Insurance Concerns Description: SW received call back from Pt this morning, however, SW spoke with her in the afternoon to address continued insurance concerns. MAHAMED inquired about Pt's status with applying for Medicaid and Financial Assistance application as this video games storywriter did not hear back from her since our initial contact early December. Pt reportedly returned completed applications to MAHAMED via email. However, this video games storywriter informed Pt applications/email were not received. SW asked Pt to forward email with attached documents; Pt was agreeable. Pt indicated she did inquire about Medicaid eligibility and was told she would not qualify. Pt also reportedly had follow up with [facility] regarding early longterm/Medicare eligibility. Pt was uncertain about eligibility for Medicare benefits if approved for early longterm. When discussing plan of care, Pt expressed frustration regarding possible change in treatment- RT at [facility] contingent upon MRI results vs surgery. SW provided active listening, supportive feedback. It is unclear how much follow up has been made to establish adequate insurance coverage since our initial encounter; however, SW reassured Pt that this video games storywriter is willing to assist her with applying for Financial Assistance and Medicaid. Pt will need to return applications to this video games storywriter for submission. SW also informed Pt of alternative option to enroll in Marketplace insurance for the upcoming 2022 year as open-enrollment is quickly approaching. Pt also verbalized understanding when MAHAMED explained there are limited [employer] plan in network with . Pt was appreciative of this video games storywriter's follow up. MAHAMED will submit Financial Assistance/Medicaid applications for processing once received. ~Jessica Irving [facility], [id number], Doc Halo Electronic Signatures: Jessica Irving (MAHAMED) (Signed 16-Jan-2022 10:28) Authored: Discipline and Description Last Updated: 16-Jan-2022 10:28 by Jessica Irving) Normal [facility] AMB - Narrative Note-Social Workon 01-11-2022 AMB [...] detailed message regarding the reason for this video games storywriter's call and contact info requesting follow up. SW will await call back from Pt. SW provided updates to Mini Cardenas RN. ~Jessica Irving [facility], [id number], Doc Halo Electronic Signatures: Jessica Irving (MAHAMDE) (Signed 11-Jan-2022 11:08) Authored: Discipline and Description Last Updated: 11-Jan-2022 11:08 by Jessica Irving (MAHAMED) [facility] AMB - Narrative Note-Social Workon 12-27-2021 AMB [...] detailed message regarding the reason for this video games storywriter's call and contact info requesting follow up. SW will await call back from Pt. ~Jessica Irving [facility], [id number], Doc [employer] Electronic Signatures: Jessica Irving (MAHAMED) (Signed 27-Dec-2021 10:15) Authored: Discipline and Description Last Updated: 27-Dec-2021 10:15 by Jessica Irving (MAHAMED) [facility] AMB - Narrative Note-Social Workon 12-16-2021 AMB [...] reportedly is active w/ financial assistance at [facility]. SW had previously verified with Nazanin Partida, Pt is not active with Financial Assistance. SW spoke with Pt by phone to further assess insurance needs/concerns. Pt confirms that her upcoming procedure scheduled for 12/21 has been canceled due to lack of insurance coverage. Pt reportedly has not had stable/adequate insurance for 4 years now, since moving from [place] to [place]. Pt reports she last carried Marketplace insurance- [employer] plan, however, could not maintain monthly premium payment and subjected deductibles and copays. Pt is unemployed, collects her ex-spouse monthly social security benefits and pension totally $2,075. 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 Pt is of early longterm age, however, she is uncertain if she will be able to collect early longterm while receiving her ex- benefits. MAHAMED discussed potential insurance options with Pt. Based on Pt's reported income, it's unclear if she will qualify for Medicaid, however, discussed plan to submit application to allow [employer] to make a determination. Pt reportedly has been denied Medicaid in the past. SW discussed that Market[employer] open enrollment will be approaching soon, however, Pt does not feel this option is feasible given understanding that only accepts their MMO plan at this time. MAHAMED suggested Pt to consider applying for Financial Assistance. MAHAMED advised Pt to contact local [facility] Office- [phone] to inquire about early longterm and Medicare eligibility. Pt seemed receptive to reapplying for Medicaid and exploring Financial Assistance and early longterm/Medicare eligibility. MAHAMED discussed plan to email Medicaid application, ODM form, and Financial Assistance application to Pt. Pt is aware to complete respective forms and return to this video games storywriter for review/submission. Pt denies further questions at this time, appreciative of this video games storywriter's assistance. MAHAMED emailed pre-filled Medicaid application, ODM form, and Financial Assistance application to Pt at [email or web address] . MAHAMED following. ~Jessica Irving [facility], [id number], Doc Halo Electronic Signatures: Jessica Irving (MAHAMED) (Signed 19-Dec-2021 09:05) Authored: Discipline and Description Last Updated: 19-Dec-2021 09:05 by Jessica Irving) Normal [facility] Creatinine (Bld) [Mass/Vol]O rdered By: Jun España on 12-15-2021 Creatinine [Mass/Vol] 1.2 mg/dL 0.6-1.3 [facility] Comment on above: ER/ESD physician is notified/shown all ISTAT results.Critical values may be confirmed by laboratory testing ifdeemed necessary by ER attending doctor. No Panel InformationOrdered By: Jun España on 12-15-2021 POC Estimated GFR 55 [facility] Comment on above: GFR estimated refere nce range: According to KDOQI guidelines, <60 ml/min/1.73m2 is sufficient to diagnose a patient with chronic kidney disease. POC Estimated GFR Non- Amer 45 [facility] Initial Visit (Colon and Rec [...] do not hesitate to be in touch. Gracy Dominguez MD Chief Complaint Anal dysplasia History of Present Illness [facility]: [facility]: Penelope Clark is a 61 yo female [...] was seen by Dr. Yoselin Padron at [facility] [place] and was found to have a 7x6cm [...] without stopping. Colonoscopy 2018 in [place] at [facility] in [place], [place] Current every day smoker 1ppd/Drinks about [...] BY MOUTH DAILY Vitals Vital Signs Recorded: 01Dec2021 09:19AM Heart Rate70 Okkikvpm227 Mjqmfrnml50 Height6 ft Bjquhf434 lb 2 oz BMI Olttvyihod98.36 kg/m2 BSA Calculated1.89 Tobacco Usea) Yes Patient [...] murmurs. Examinati (more content not included)... Normal [facility] Tobacco Screening.on 022 Fall risk assessment b) One or more fall s in the last year CV-Hfpojkn-Fv lwell 2100 Work Phone: Tobacco use status CPHS a) Yes BS-Vsrlgee-Il lwell 2100 Work Phone: Tobacco Screening. Yes MG-Yonny bhargav-Rom lwell 2100 Work Phone: Outside Recordson 11-15-2021 Outside Records [id number] 9#1.00CD:127 Normal [facility] No Panel Informationon 11-04 MJ-Foyxsoc-Wb lwell 2100 Work Phone: [facility] Surgical Pathology Depar tmenton 11-04-2021 [facility] Surgical Pathology Department Name AMBER MALDONADO Pathologist: CRISTIN MARTINEZ MD Date of Procedure: 11/04/2021 Date Received: 11/04/2021 Date Reported 11/09/2021 Submitting Physician: PENELOPE EWING MD Location: [facility] Other External # FINAL DIAGNOSIS A. [id number] (07/19/2021): A. PERIANAL, LEFT ANAL VERGE, BIOPSIES: [...] LATERAL, BIOPSY:HIGH-GRADE ANAL INTRAEPITHELIAL NEOPLASIA (AIN 3). Detonator Maker: Dr Darcy Moreno Electronically Signed Out By CRISTIN MARTINEZ MD/MARIUSZ By the signature on this report, the individual or group listed as making the Final Interpretation/Diagn osis certifies that they have reviewed this case. Clinical History: {Not Provided} Specimens Submitted As: A: [id number] (07/19/2021) Slide/Block Description Received from [facility], Department of Pathology, [address] [place] [address] [place] [address], are twenty-seven(27) microscope slides labeled [id number]. Keep Slides: N Slides Returned: N Personal Consult: N Normal [facility] Comment on above: Performed By: #### U [facility] #### [facility] Surgical Pathology Department [address] [address] [facility] [address] Urine culture routineOrdered By: Edgar Galloway on 10-02-2021 Bacteria identified Cx Nom (U) 2 Days [facility] Urinalysis - AUTOMATEDon Appearance (U) cloudy [employer] Other Bilirubin Ql (U) small [employer] Other Color (U) edgar [facility] Other Glucose Ql (U) Negative [employer] Other Hemoglobin Ql (U) Negative [employer] Other Ketones Ql (U) Negative [employer] Other Leukocyte esterase Test strip Ql (U) trace [facility] Other Nitrite Ql (U) Negative [employer] Other pH (U) 6.0 [pH] [facility] Other Protein Ql (U) trace [employer] Other Specific gravity (U) [Rel density] 1.020 [facility] Other Urobilinogen (U) [Mass/Vol] 1.0 mg/dL [facility] Other Urinalysis - AUTOMATED [facility] Other XR hand LT min 3V*on 022 XR hand LT min 3V* [facility] Goshi Other XR hand LT min 3V* [facility] Other XR hand LT min 3V* [address] [place] [address] [employer] Other XR hand LT min 3V* [facility] Goshi Other XR hand LT min 3V* XRay Report [employer] Other XR hand LT min 3V* Signed [facility] Other XR hand LT min 3V* Patient: Amber Maldonado MR#: [id number] [employer] Other XR hand LT min 3V* 05 [facility] Other XR hand LT min 3V* : 1960 Acct:[id number] [facility] Other XR hand LT min 3V* Age/Sex: 60 / F ADM Date: 09/29/21 [facility] Other XR hand LT min 3V* Loc: XDUCLY Room: Type: REG CLI [facility] Other XR hand LT min 3V* Attending Dr: Edgar Galloway MAMMOGRAPHY TECH [facility] Other XR hand LT min 3V* Copies to: Edgar Galloway APRN [facility] Other XR hand LT min 3V* Ordering Provider: Edgar Galloway APRN [facility] Other XR hand LT min 3V* Date of Service: 09/29/21 [facility] Other XR hand LT min 3V* XR/XR hand LT min 3V*: Injury [facility] Other XR hand LT min 3V* 3 viewsLEFT hand plain film [facility] Other XR hand LT min 3V* COMPARISON:[facility] [employer] Other XR hand LT min 3V* HISTORY:LEFT hand injury [facility] Other XR hand LT min 3V* Oblique fracture of the midshaft of the 5th metacarpal identified. No dislocation. 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 [facility] Other XR hand LT min 3V* XR/XR hand LT min 3V* [facility] Other XR hand LT min 3V* IMPRESSION:Oblique fracture of the midshaft of the 5th metacarpal. [facility] Other XR hand LT min 3V* Impression dictated by: Bud Huertas M.D.09/29/2021 3:12 PM [facility] Other XR hand LT min 3V* Dictation Location: [place] [address] [facility] Other XR hand LT min 3V* Transcribed By: DEMAR 09/29/21 1512 [facility] [employer] Other XR hand LT min 3V* Dictated By: Bud Huertas DO 09/29/21 1501 [facility] [employer] Other XR hand LT min 3V* Signed By: [facility] Other XR hand LT min 3V* 09/29/21 1512 [facility] [employer] Other Cardiologyon 07-18-2021 P wave axis 48 degrees [facility] P-R Interval 176 ms [facility] Q-T interval [...] FESTUS VARELA ([id number]) on 07/18/2021 9:47:05 PM [facility] P wave At[facility] by EKG 61 BPM [facility] Albumin [Mass/volume] in Ser um or Plasmaon 05-28-2020 Albumin [Mass/Vol] 4.0 g/dL 3.2-5.5 [facility] Automated basophil %on 05-28 Basophils/100 WBC (Bld) 0.4 % [facility] Automated basophil counton 0 05-28-2020 Basophils (Bld) [#/Vol] 0.0 10*3/uL 0.0-0.2 [facility] Automated blood lymphocyte c ount (number/volume)on 05-28-2020 Lymphocytes (Bld) [#/Vol] 1.3 10*3/uL 1.00-4.8 [facility] Automated blood lymphocyte c ount as percentage of total leukocyteson 05-28-2020 Lymphocytes/100 WBC (Bld) 18.7 % [facility] Automated blood monocyte cou nton 05-28-2020 Monocytes (Bld) [#/Vol] 0.6 10*3/uL 0.0-0.8 [facility] Automated blood platelet cou nt (count/volume)on 05-28-2020 Platelets (Bld) [#/Vol] 190 10*3/uL 150-450 [facility] Automated blood platelet koko n volume measurementon 05-28-2020 Platelet mean volume (Bld) [Entitic vol] 8.2 fL 6.3-10.7 [facility] Automated eosinophil %on Eosinophils/100 WBC (Bld) 1.3 % [facility] Automated eosinophil counton 05-28-2020 Eosinophils (Bld) [#/Vol] 0.1 10*3/uL 0.0-0.45 [facility] Automated erythrocyte distri bution width ratioon 05-28-2020 Erythrocyte distribution width (RBC) [Ratio] 15.8 % 11.9-15.3 [facility] Automated erythrocyte mean c orpuscular hemoglobin (mass per erythrocyte)on 05-28-2020 MCH (RBC) [Entitic mass] 34.3 pg 24.7-34.3 [facility] Automated erythrocyte mean c orpuscular hemoglobin concentration measurement (mass/volon 05-28-2020 MCHC (RBC) [Mass/Vol] 34.2 g/dL 32.0-35.0 [facility] Automated erythrocyte mean c orpuscular volumeon 05-28-2020 MCV (RBC) [Entitic vol] 100.4 fL 80-100 [facility] Automated monocyte %on 05-28 Monocytes/100 WBC (Bld) 9.2 % [facility] Automated neutrophil %on Neutrophils/100 WBC (Bld) 70.4 % [facility] Blood erythrocytes automated count (number/volume)on 05-28-2020 RBC (Bld) [#/Vol] 4.06 10*6/uL 3.60-5.00 [facility] Blood hemoglobin measurement (mass/volume)on 05-28-2020 Hemoglobin (Bld) [Mass/Vol] 13.9 g/dL 11.8-15.4 [facility] Blood leukocytes automated c ount (number/volume)on 05-28-2020 WBC (Bld) [#/Vol] 6.9 10*3/uL 4.5-11.0 [facility] Blood neutrophil count by au tomated method (number/volume)on 05-28-2020 Neutrophils (Bld) [#/Vol] 4.8 10*3/uL 1.8-7.7 [facility] Estimated glomerular filtrat ion rate (GFR) non- Americanon 05-28-2020 GFR/1.73 sq M predicted among non-blacks MDRD (S/P/Bld) [Vol rate/Area] 53 mL/min/{1.73_m2} [facility] Hematocrit [Volume Fraction] of Blood by Automated counton 05-28-2020 Hematocrit (Bld) [Volume fraction] 40.7 % 34.0-46.4 [facility] Metabolic Panelon 05-28-2020 Magnesium [Mass/Vol] 1.6 mg/dL 1.6-2.6 [facility] Otheron 05-28-2020 GFR/1.73 sq M.predicted MDRD (S/P/Bld) [Vol rate/Area] mL/min/{1.73_m2} [facility] Comment on above: GFR estimated refere nce range: According to KDOQI guidelines, <60 ml/min/1.73m2 is sufficient to diagnose a patient with chronic kidney disease. Nucleated RBC/100 WBC (Bld) [Ratio] 0.1 % 0-0.5 [facility] Creatinine Clearance (Chem N/A [facility] Protein [Mass/volume] in Ser um or Plasmaon 05-28-2020 Protein [Mass/Vol] 6.7 g/dL 6.1-7.9 [facility] Serum globulin measurement b y calculation (mass/volume)on 05-28-2020 Globulin (S) [Mass/Vol] 2.7 g/dL [facility] Serum or plasma alanine ruff otransferase measurement without P-5'-P (enzymatic activion 05-28-2020 ALT No additional P-5'-P [Catalytic activity/Vol] 21 U/L 10-60 [facility] Serum or plasma albumin/glob ulin mass ratioon 05-28-2020 Albumin/Globulin [Mass ratio] 1.5 {ratio} [facility] Serum or plasma alkaline j luis sphatase measurement (enzymatic activity/volume)on 05-28-2020 ALP [Catalytic activity/Vol] 118 U/L 32-92 [facility] Serum or plasma aspartate am inotransferase measurement (enzymatic activity/volume)on 05-28-2020 AST [Catalytic activity/Vol] 33 U/L 10-42 [facility] Serum or plasma calcium robe urement (mass/volume)on 05-28-2020 Calcium [Mass/Vol] 9.3 mg/dL 8.2-10.2 [facility] Serum or plasma chloride koko surement (moles/volume)on 05-28-2020 Chloride [Moles/Vol] 99 mmol/L 95-114 [facility] Serum or plasma creatinine m easurement with calculation of estimated glomerular filtron 05-28-2020 Creatinine [Mass/Vol] 1.05 mg/dL 0.44-1.03 [facility] Serum or plasma glucose robe urement (mass/volume)on 05-28-2020 Glucose [Mass/Vol] 96 mg/dL 70-100 [facility] Comment on above: ADA recommended refe rence rangeRandom Glucose Reference Range is dependent on time and content of last meal. Glucose of more than 200 mg/dL in a nonstressed, ambulatory subject supports the diagnosis of Diabetes Mellitus. Serum or plasma potassium me asurement (moles/volume)on 05-28-2020 Potassium [Moles/Vol] 4.1 mmol/L 3.5-5.1 [facility] Serum or plasma sodium measu rement (moles/volume)on 05-28-2020 Sodium [Moles/Vol] 135 mmol/L 136-146 [facility] Serum or plasma total biliru bin measurement (mass/volume)on 05-28-2020 Bilirubin [Mass/Vol] 1.0 mg/dL 0.3-1.2 [facility] Serum or plasma total carbon dioxide measurement (moles/volume)on 05-28-2020 CO2 [Moles/Vol] 25.9 mmol/L 22.0-30.0 [facility] Serum or plasma urea nitroge n measurement (mass/volume)on 05-28-2020 Urea nitrogen [Mass/Vol] 16 mg/dL 12-30 [facility] Vital Signs Date Time Vital Sign Value Performing Clinician Facility 03-18-2024 13:11-0500 Body height 185.4 cm Gio Furlong DO [facility] 03-18-2024 13:11-0500 Body mass index (BMI) [Ratio] 20.82 kg/m2 Gio Furlong DO Work Phone[facility] 03-18-2024 13:11-0500 Body temperature 97.81 [degF] Gio Furlong DO Work Phone[facility] 03-18-2024 13:11-0500 Body weight 71.58 kg Gio Furlong DO Work [facility] 03-18-2024 13:11-0500 Diastolic blood pressure 70 mm[Hg] Gio Furlong DO [facility] 03-18-2024 13:11-0500 Heart rate 95 /min Gio Furlong DO Work [facility] 03-18-2024 13:11-0500 Respiratory rate 18 /min Gio Furlong DO Work Phone: [facility] 03-18-2024 13:11-0500 SaO2% (BldA) [Mass fraction] 97 % Gio Furlong DO Work Phone: [facility] 03-18-2024 13:11-0500 Systolic blood pressure 100 mm[Hg] Gio Furlong DO Work Phone: [facility] 10-30-2023 13:49-0400 Body height 185.4 cm Gio Furlong DO Work Phone: [facility] [employer] 10-30-2023 13:49-0400 Body mass index (BMI) [Ratio] 18.93 kg/m2 Gio Furlong DO Work Phone: [facility] [employer] [facility] 10-30-2023 13:49-0400 Body temperature 98.71 [degF] Gio Furlong DO Work Phone: [facility] [facility] 10-30-2023 13:49-0400 Body weight 65.09 kg Gio Furlong DO Work Phone: [facility] 10-30-2023 13:49-0400 Diastolic blood pressure 80 mm[Hg] Gio Furlong DO Work Phone: [facility] 10-30-2023 13:49-0400 Heart rate 59 /min Gio Furlong DO Work Phone: [facility] 10-30-2023 13:49-0400 Respiratory rate 18 /min Gio Furlong DO Work Phone: [facility] 10-30-2023 13:49-0400 SaO2% (BldA) [Mass fraction] 97 % Gio Furlong DO Work Phone: [facility] 10-30-2023 13:49-0400 Systolic blood pressure 110 mm[Hg] Gio Furlong DO Work Phone: [facility] 10-18-2023 12:12-0400 Body height 185.4 cm Darcy Quinonesoll MAMMOGRAPHY TECH-PSYCHOLOGIST [employer] Work Phone: [facility] 10-18-2023 12:12-0400 Body mass index (BMI) [Ratio] 18.58 kg/m2 Darcy Quinonesoll MAMMOGRAPHY TECH-PSYCHOLOGIST [employer] Work Phone: [facility] 10-18-2023 12:12-0400 Body weight 63.87 kg Darcy Quinonesoll MAMMOGRAPHY TECH-PSYCHOLOGIST [employer] Work Phone: [facility] 10-18-2023 12:12-0400 Diastolic blood pressure 77 mm[Hg] Darcydarian Mena MAMMOGRAPHY TECH-PSYCHOLOGIST [employer]ICE Work Phone: [facility] 10-18-2023 12:12-0400 Heart rate 81 /min Darcy Mena MAMMOGRAPHY TECH-PSYCHOLOGIST [employer] Work Phone: [facility] 10-18-2023 12:12-0400 Systolic blood pressure 106 mm[Hg] Darcy Mena MAMMOGRAPHY TECH-PSYCHOLOGIST [employer]ICE Work Phone: [facility] 12-07-2022 13:38-0400 Body height 182.9 cm Mitra Ramos MD, PhD Work Phone: [facility] [place] 12-07-2022 13:38-0400 Body mass index (BMI) [Ratio] 18.63 kg/m2 Mitra Ramos MD, PhD [facility] 12-07-2022 13:38-0400 Body weight 62.32 kg Mitra Ramos MD, PhD Work Phone: [facility] [place] 12-07-2022 13:38-0400 Diastolic blood pressure 49 mm[Hg] Mitra Ramos MD, PhD [facility] Phone[facility] 12-07-2022 13:38-0400 Heart rate 66 /min Mitra Ramos MD, PhD Work Phone[facility] 12-07-2022 13:38-0400 Respiratory rate 16 /min Mitra Ramos MD, PhD Work Phone: [facility] [place] 12-07-2022 13:38-0400 SaO2% (BldA) [Mass fraction] 95 % Mirta Ramos MD, PhD Work Phone[facility] 12-07-2022 13:38-0400 Systolic blood pressure 98 mm[Hg] Mitra Ramos MD, PhD Work Phone[facility] 11-02-2022 08:15-0400 Heart rate 68 /min Jameson Renae MD Work [facility] 11-02-2022 08:15-0400 Respiratory rate 18 /min Jameson Renae MD [facility] 11-02-2022 08:10-0400 SaO2% (BldA) [Mass fraction] 97 % Jameson Renae MD [facility] 11-02-2022 05:22-0400 Body temperature 97.81 [degF] Jameson Renae MD [facility] 11-02-2022 05:22-0400 Diastolic blood pressure 68 mm[Hg] Jameson Renae MD [facility] 11-02-2022 05:22-0400 Systolic blood pressure 90 mm[Hg] Jameson Renae MD [facility] Phone[facility] 2022 16:04-0400 Heart rate 75 /min Jameson Renae MD [facility] 10-31-2022 18:50-0400 Body height 182.9 cm Jameson Renae MD [facility] 10-31-2022 18:50-0400 Body mass index (BMI) [Ratio] 20.75 kg/m2 Jameson Renae MD [facility] 10-31-2022 18:50-0400 Body weight 69.4 kg Jameson Renae MD [facility] Phone[facility] 10-19-2022 13:23-0400 Body mass index (BMI) [Ratio] 20.45 kg/m2 Dana URENA Work Phone: [facility] 10-19-2022 13:23-0400 Body temperature 98.29 [degF] Dana URENA [facility] Phone[facility] 10-19-2022 13:23-0400 Body weight 70.31 kg Dana URENA Work Phone: [facility] 10-19-2022 13:23-0400 Diastolic blood pressure 78 mm[Hg] Dana Ordonez APRN-PSYCHOLOGIST [employer] Work Phone: [facility] 10-19-2022 13:23-0400 Heart rate 58 /min Dana Ordonez APRN-PSYCHOLOGIST [employer]IVATE [employer]ACTICE Work Phone: [facility] 10-19-2022 13:23-0400 Respiratory rate 14 /min Dana Ordonez APRN-PSYCHOLOGIST [employer]IVATE [employer] Work Phone: [facility] 10-19-2022 13:23-0400 SaO2% (BldA) [Mass fraction] 100 % Dana Ordonez APRN-PSYCHOLOGIST [employer]IVATE [employer]ACTICE Work Phone: [facility] 10-19-2022 13:23-0400 Systolic blood pressure 126 mm[Hg] Dana Ordonez APRN-PSYCHOLOGIST [employer]IVATE [employer]ACTICE Work Phone: [facility] 10-16-2022 10:16-0400 Body height 182.9 cm Benton-Min Song MAMMOGRAPHY TECH-CARGO SUPERVISOR Work Phone: [facility] 10-16-2022 10:16-0400 Body mass index (BMI) [Ratio] 20.75 kg/m2 Benton-Min Song MAMMOGRAPHY TECH-CARGO SUPERVISOR Work Phone: [facility] 10-16-2022 10:16-0400 Body temperature 98.1 [degF] Benton-Min Song MAMMOGRAPHY TECH-CARGO SUPERVISOR Work Phone: [facility] 10-16-2022 10:16-0400 Body weight 69.4 kg Benton-Min Song MAMMOGRAPHY TECH-CARGO SUPERVISOR Work Phone: [facility] 10-16-2022 10:16-0400 Diastolic blood pressure 84 mm[Hg] Benton-Min Song MAMMOGRAPHY TECH-CARGO SUPERVISOR Work Phone: [facility] 10-16-2022 10:16-0400 Heart rate 85 /min Benton-Min Song MAMMOGRAPHY TECH-CARGO SUPERVISOR Work Phone: [facility] 10-16-2022 10:16-0400 Respiratory rate 18 /min Benton-Min Song MAMMOGRAPHY TECH-CARGO SUPERVISOR Work Phone: [facility] 10-16-2022 10:16-0400 SaO2% (BldA) [Mass fraction] 98 % [place] APRNOobafit Work Phone: [facility] 10-16-2022 10:16-0400 Systolic blood pressure 139 mm[Hg] [place] APRNOobafit Work Phone: [facility] 10-03-2022 09:32-0400 Body height 182.9 cm Mitra Ramos MD, PhD Work Phone: [facility] 10-03-2022 09:32-0400 Body mass index (BMI) [Ratio] 20.8 kg/m2 Mitra Ramos MD, PhD Work Phone: [facility] 10-03-2022 09:32-0400 Body temperature 98.4 [degF] Mitra Ramos MD, PhD Work Phone: [facility] 10-03-2022 09:32-0400 Body weight 69.58 kg Mitra Ramos MD, PhD Work Phone: [facility] 10-03-2022 09:32-0400 Diastolic blood pressure 79 mm[Hg] Mitra Ramos MD, PhD Work Phone: [facility] 10-03-2022 09:32-0400 Heart rate 70 /min Mitra Ramos MD, PhD Work Phone: [facility] 10-03-2022 09:32-0400 Respiratory rate 14 /min Mitra Ramos MD, PhD Work Phone: [facility] 10-03-2022 09:32-0400 SaO2% (BldA) [Mass fraction] 97 % Mitra Ramos MD, PhD Work Phone: [facility] 10-03-2022 09:32-0400 Systolic blood pressure 136 mm[Hg] Mitra Ramos MD, PhD [facility] Phone[facility] 06-01-2022 09:27-0500 Heart rate 78 /min Nahum Jones [facility] 06-01-2022 09:27-0500 SaO2% (BldA) [Mass fraction] 93 % Nahummy Jones [facility] 06-01-2022 09:27-0500 Diastolic blood pressure 86 mm[Hg] Nahum Jones [facility] 06-01-2022 09:27-0500 Mean blood pressure 106 mm[Hg] [facility]-01-2022 09:27-0500 Systolic blood pressure 145 mm[Hg] [facility] 06-01-2022 09:27-0500 Body temperature 98.06 [degF] [facility] 06-01-2022 09:27-0500 Blood Pressure Location [facility] 06-01-2022 09:27-0500 Body temperature 98.06 [degF] [facility] 06-01-2022 09:27-0500 Mean blood pressure 106 mm[Hg] [facility] 06-01-2022 09:27-0500 Respiratory rate 18 /min [facility] 01-11-2022 14:42-0400 Body temperature 97 [degF] DNP Lizbeth Ca Work Phone: [facility] 01-11-2022 14:42-0400 Body weight 68.94 kg DNP Lizbeth aC Work Phone: [facility] 01-11-2022 14:42-0400 Diastolic blood pressure 84 mm[Hg] DNP Lizbeth Felicityle Work Phone: [facility] 01-11-2022 14:42-0400 Heart rate 93 /min DNP Lizbeth Felicityle Work Phone: [facility] 01-11-2022 14:42-0400 Respiratory rate 16 /min DNP Lizbeth Felicityle Work Phone: [facility] 01-11-2022 14:42-0400 SaO2% (BldA) [Mass fraction] 97 % DNP Lizbeth Kaple Work Phone: 4(531)[phone] [place] [address] 01-11-2022 14:42-0400 Systolic blood pressure 136 mm[Hg] DNP Lizbeth Kaple Work Phone: 8(827)537-714544 [place] [address] 12-02-2021 14:32-0400 Body temperature 97.8 [degF] DNP Lizbeth Kaple Work Phone: 9(042)[phone] [place] [address] 12-02-2021 14:32-0400 Body weight 68.03 kg DNP Lizbeth Kaple Work Phone: 4(285)409-326544 [place] [address] 12-02-2021 14:32-0400 Diastolic blood pressure 80 mm[Hg] DNP Lizbeth Kaple Work Phone: 0(336)229-330544 [place] [address] 12-02-2021 14:32-0400 Heart rate 69 /min DNP Lizbeth Kaple Work Phone: 2(019)473-650844 [place] [address] 12-02-2021 14:32-0400 Respiratory rate 16 /min DNP Lizbeth Kaple Work Phone: [facility] 12-02-2021 14:32-0400 SaO2% (BldA) [Mass fraction] 94 % DNP Lizbeth Kaple Work Phone: 7(961)102-977744 [place] [address] 12-02-2021 14:32-0400 Systolic blood pressure 142 mm[Hg] DNP Lizbeth Kaple Work Phone: [facility] 12-01-2021 09:19-0400 Body height 182.88 cm Referring Provider Unknown XX-Jgtevcx-Erknzfg 2099 Work Phone: 12-01-2021 09:19-0400 Body mass index (BMI) [Ratio] 20.36 kg/m2 Referring Provider Unknown AX-Oxgfzmw-Jhufxaw 2099 Work Phone: 12-01-2021 09:19-0400 Body surface area Derived from formula 1.89 m2 Referring Provider Unknown OQ-Mpmcyyv-Qqmnwgv 2100 Work Phone: 12-01-2021 09:19-0400 Body weight 68.1 kg Referring Provider Unknown TY-Hrfspqt-Kznyfqb 2100 Work Phone: 12-01-2021 09:19-0400 Diastolic blood pressure 76 mm[Hg] Referring Provider Unknown LV-Hjmthhq-Bsfloyj 2100 Work Phone: 12-01-2021 09:19-0400 Heart rate 70 /min Referring Provider Unknown SY-Bpzlbed-Izylran 2100 Work Phone: 12-01-2021 09:19-0400 Systolic blood pressure 122 mm[Hg] Referring Provider Unknown EP-Dtuuqeq-Jzwvaqv 2100 Work Phone: 10-26-2021 09:01-0400 Body height 182.88 cm DNP Lizbeth Penaloza Work Phone: [facility] 10-26-2021 08:17-0400 Body temperature 97.5 [degF] DNP Lizbeth Penaloza Work Phone: [facility] 10-26-2021 08:17-0400 Body weight 66.67 kg DNP Lizbeth Penaloza Work Phone: [facility] 10-26-2021 08:17-0400 Diastolic blood pressure 84 mm[Hg] DNP Lizbeth Penaloza Work Phone: [facility] 10-26-2021 08:17-0400 Heart rate 67 /min DNP Lizbeth Penaloza Work Phone: [facility] 10-26-2021 08:17-0400 Respiratory rate 16 /min DNP Lizbeth Penaloza Work Phone: [facility] 10-26-2021 08:17-0400 SaO2% (BldA) [Mass fraction] 93 % DNP Lizbeth Penaloza Work Phone: [facility] 10-26-2021 08:17-0400 Systolic blood pressure 132 mm[Hg] DNP Lizbeth Penaloza Work Phone: [facility] 09-29-2021 15:05-0400 Body height 185.42 cm Edgra Galloway Other [employer] Other 09-29-2021 15:05-0400 Body mass index (BMI) [Ratio] 19.13 kg/m2 Edgar Galloway Other [employer] Other 09-29-2021 15:05-0400 Body temperature 98.8 [degF] Edgar Galloway Other [employer] Other 09-29-2021 15:05-0400 Body weight 65.77 kg Edgar Galloway Other [employer] Other 09-29-2021 15:05-0400 Diastolic blood pressure 85 mm[Hg] Edgar Galloway Other [employer] Other 09-29-2021 15:05-0400 Respiratory rate 18 /min Edgar Galloway Other [employer] Other 09-29-2021 15:05-0400 SaO2% (BldA) [Mass fraction] 99 % Edgar Galloway Other [employer] Other 09-29-2021 15:05-0400 Systolic blood pressure 136 mm[Hg] Edgar Galloway Other [employer] Other 07-19-2021 11:15-0400 Body temperature 97.5 [degF] Yoselin Padron MD Work Phone: [facility] 07-19-2021 11:15-0400 Diastolic blood pressure 80 mm[Hg] Yoselin Times MD Work Phone: [facility] 07-19-2021 11:15-0400 Heart rate 70 /min Yoselin Times MD Work Phone: [facility] 07-19-2021 11:15-0400 Respiratory rate 14 /min Yoselin Times MD Work Phone: [facility] 07-19-2021 11:15-0400 SaO2% (BldA) [Mass fraction] 96 % Yoselin Times MD Work Phone: [facility] 07-19-2021 11:15-0400 Systolic blood pressure 128 mm[Hg] Yoselin Times Work Phone: [facility] 07-19-2021 09:40-0400 Body height 182.9 cm Yoselin Times Work Phone: [facility] 07-19-2021 09:40-0400 Body mass index (BMI) [Ratio] 20.48 kg/m2 Yoselin Times Work Phone: [facility] 07-19-2021 09:40-0400 Body weight 68.49 kg Yoselin Times Work Phone: [facility] 07-18-2021 22:09-0400 Heart rate 61 /min Yoselin Times Work Phone: [facility] 07-15-2021 15:04-0400 Body height 182.9 cm Yoselin Times Work Phone: [facility] 07-15-2021 15:04-0400 Body mass index (BMI) [Ratio] 20.48 kg/m2 Yoselin Times Work Phone: [facility] 07-15-2021 15:04-0400 Body weight 68.49 kg Yoselin Times Work Phone: [facility] 07-15-2021 15:04-0400 Diastolic blood pressure 69 mm[Hg] Yoselin Times Work Phone: [facility] 07-15-2021 15:04-0400 Heart rate 84 /min Yoselin Padron MD Work Phone: [facility] 07-15-2021 15:04-0400 Respiratory rate 18 /min Yoselin Padron MD Work Phone: [facility] 07-15-2021 15:04-0400 Systolic blood pressure 151 mm[Hg] Yoselin Padron MD Work Phone: [facility] 07-06-2021 14:58-0400 Diastolic blood pressure 82 mm[Hg] Victoriano Chandler MD Work Phone: [facility] 07-06-2021 14:58-0400 Heart rate 71 /min Victoriano Chandler MD [facility] 07-06-2021 14:58-0400 Systolic blood pressure 135 mm[Hg] Victoriano Chandler MD [facility] En[facility]ters Encounter Date Encounter Type Care Provider Facility Start: 05-06-2024 End: 05-06-2024 Telephone [facility] Start: 04-22-2024 End: 04-23-2024 Refill Lupe Peng [facility] Comment on above: Anxiety Start: 04-15-2024 End: 04-15-2024 Telephone encounter Shira Johnson [facility] Start: 04-10-2024 End: 04-10-2024 Refill Gio Chan DO Work Phone: [facility] Start: 03-18-2024 End: 03-18-2024 ambulatory [facility] Start: 03-18-2024 Encounter for genera l adult medical examination without abnormal findings [facility] Start: 03-18-2024 End: 03-18-2024 Patient encounter procedure Gio Chan DO Work Phone: [facility] Comment on above: Welcome to Medicare preventive visit (Primary Dx); Need for immunization against influenza; Screening for depression; Anxiety; Screening for heart disease; Seizure ([facility] Thoracic aortic aneurysm without rupture, unspecified part ([facility]); Depression, unspecified depression type; Gastroesophageal reflux disease, unspecified whether esophagitis present Start: 03-18-2024 End: 03-18-2024 Patient encounter status Gio Chan DO Work Phone: [facility] Start: 03-18-2024 End: 03-18-2024 ambulatory [facility] Start: 03-18-2024 Encounter for genera l adult medical examination without abnormal findings [facility] Start: 02-29-2024 End: 02-29-2024 Refill Gio Chan DO Work Phone: [facility] Comment on above: Anxiety Start: 02-29-2024 End: 02-29-2024 Refill Sheree Waddell [facility] Comment on above: Anxiety Start: 12-31-2023 End: 12-31-2023 Refill Gio Chan DO Work Phone: [facility] Start: 12-21-2023 End: 12-23-2023 Refill Lupe Khoury [facility] Start: 12-17-2023 End: 12-17-2023 Refill Gio Chan DO Work Phone: [facility] Comment on above: Anxiety Start: 11-17-2023 End: 11-19-2023 Refill Chey Paz MD Work Phone: [facility] Comment on above: Refill Start: 10-30-2023 End: 10-30-2023 ambulatory [facility] Start: 10-30-2023 End: 10-30-2023 Office outpatient visit 25 minutes Gio Chan DO Work Phone: [facility] Comment on above: Anxiety (Primary Dx) ; Encounter for screening mammogram for malignant neoplasm of breast; Gastroesophageal reflux disease, unspecified whether esophagitis present; Anemia due to chemotherapy; Depression, unspecified depression type; Hypokalemia; Multiple joint pain Start: 10-29-2023 End: 10-29-2023 Telephone encounter Radha Juan Luislenore [facility] Start: 10-24-2023 End: 10-24-2023 ambulatory Chey Infante [facility] Comment on above: Recurrent anal squam ous cell carcinoma (CMS-HCC) Start: 10-24-2023 End: 10-24-2023 Departed Referred DO Chey Infante Work Phone: [facility] Start: 10-18-2023 End: 10-18-2023 ambulatory [facility] Start: 10-18-2023 End: 10-18-2023 Office outpatient visit 15 minutes [facility] [place] MAMMOGRAPHY TECH-PSYCHOLOGIST [employer] Work Phone: [facility] General Surgery Comment on above: Recurrent anal squam ous cell carcinoma (CMS-HCC) (Primary Dx); Anemia due to chemotherapy Start: 10-10-2023 End: 10-11-2023 Refill Chey Paz MD Work Phone: [facility] Comment on above: Refill Anxiety Start: 10-01-2023 End: 10-01-2023 Refill Lupe Peng [facility] Start: 09-17-2023 End: 09-18-2023 Refill Dana Ordonez MAMMOGRAPHY TECH-PSYCHOLOGIST [employer] Work Phone: [facility] Comment on above: Refill Start: 09-11-2023 End: 09-11-2023 Refill Lupe Peng [facility] Comment on above: Anxiety (Primary Dx) Start: 08-29-2023 End: 08-29-2023 ambulatory CHEY INFANTE [facility] Start: 08-29-2023 End: 08-29-2023 Office outpatient new 45 minutes Chey Infante DO Work Phone: [facility] Comment on above: Recurrent anal squam ous cell carcinoma (CMS-HCC) (Primary Dx); Anemia due to chemotherapy Start: 08-21-2023 End: 08-22-2023 Telephone encounter Chey Infante DO Work Phone: [facility] Start: 08-09-2023 End: 08-09-2023 ambulatory [facility] Start: 06-15-2023 End: 06-15-2023 ambulatory UNKNOWN PROVIDER Facility:[facility] Start: 05-13-2023 Letter encounter Victoriano perrin MD [facility] Start: 02-08-2023 ambulatory Camron garcia PharmD Work Phone: [facility] Start: 02-04-2023 Letter encounter Victoriano perrin MD [facility] Phone[facility] Start: 01-23-2023 Telephone encounter Lara jeronimo MD Work Phone: [facility] Start: 01-22-2023 Telephone encounter Lara jeronimo MD Work Phone: [facility] Comment on above: Speak with provider Start: 01-12-2023 End: 01-12-2023 Subsequent hospital visit by physician Alta Ramirez RD Work Phone: [facility] Comment on above: Dx: NO SHOW (Primary Dx) Start: 01-12-2023 End: 01-13-2023 ambulatory UNKNOWN PROVIDER Facility:[facility] Start: 12-30-2022 Refill Dana Mery STUART-PSYCHOLOGIST [employer] Work Phone: [facility] Comment on above: Refill Start: 12-29-2022 ambulatory [facility] Start: 12-29-2022 End: 12-29-2022 Telemedicine consultation with patient Dana Contrerasdick MAMMOGRAPHY TECH-PSYCHOLOGIST [employer] Work Phone: [facility] Comment on above: NO SHOW (Primary Dx) Start: 12-20-2022 End: 12-21-2022 ambulatory UNKNOWN PROVIDER Facility:[facility] Start: 12-20-2022 End: 12-20-2022 Subsequent hospital visit by physician Alta Ramirez RD Work Phone: [facility] Comment on above: Dx: NO SHOW (Primary Dx) Start: 12-07-2022 End: 12-08-2022 ambulatory [facility] Start: 12-07-2022 End: 12-07-2022 Subsequent hospital visit by physician Jessika Acosta RN [facility] Comment on above: Dx: Anal cancer (HCC ) (Primary Dx) Start: 12-07-2022 End: 12-07-2022 Office outpatient visit 15 minutes Mitra Ramos MD, PhD Work Phone: [facility] On[facility] Comment on above: Anal squamous cell c arcinoma (HCC) (Primary Dx); Body mass index (BMI) 19.9 or less, adult Start: 12-01-2022 End: 12-01-2022 ambulatory UNKNOWN PROVIDER Facility:[facility] Start: 12-01-2022 End: 12-01-2022 Phys/qhp telephone evaluation 11-20 min Dana URENA Work Phone: [facility] Comment on above: Anal cancer (HCC); Use of opiates for therapeutic purposes; Palliative care encounter; Cancer related pain; Palliative care by specialist; Neuropathic pain; Nausea and vomiting, unspecified vomiting type Start: 11-29-2022 End: 11-29-2022 ambulatory Sanju Farmer MD Work Phone: [facility] Start: 11-29-2022 Documentation procedure Sanju Farmer MD Work Phone: [facility] Start: 11-28-2022 End: 11-28-2022 ambulatory UNKNOWN PROVIDER Facility:[facility] Start: 11-27-2022 End: 11-27-2022 ambulatory UNKNOWN PROVIDER Facility:[facility] Start: 11-27-2022 End: 11-27-2022 ambulatory Victoriano Chandler MD Work Phone: [facility] Start: 11-27-2022 End: 11-27-2022 Documentation procedure [employer] Work Phone: [facility] Start: 11-24-2022 End: 11-24-2022 ambulatory UNKNOWN [facility]ER [facility] Start: 11-23-2022 End: 11-23-2022 ambulatory UNKNOWN PROVIDER Facility:[facility] Start: 11-23-2022 End: 11-23-2022 Office outpatient visit 40 minutes Dana URENA Work Phone: [facility] Comment on above: Anal cancer (HCC) (P rimary Dx); Use of opiates for therapeutic purposes; Palliative care encounter; Cancer related pain; Palliative care by specialist; Neuropathic pain; Nausea and vomiting, unspecified vomiting type Start: 11-22-2022 End: 11-22-2022 ambulatory UNKNOWN [facility]ER [facility] Start: 11-21-2022 End: 11-21-2022 ambulatory [facility]ER [facility] Start: 11-20-2022 End: 11-21-2022 ambulatory UNKNOWN PROVIDER [facility] Start: 11-17-2022 End: 11-18-2022 ambulatory UNKNOWN PROVIDER [facility] Start: 11-17-2022 End: 11-17-2022 Subsequent hospital visit by physician Onc Treatment [facility] Comment on above: Dx: Anal cancer (HCC ) (Primary Dx) Start: 11-16-2022 End: 11-16-2022 ambulatory [facility] Start: 11-14-2022 End: 11-14-2022 ambulatory [facility] Start: 11-13-2022 End: 11-14-2022 ambulatory UN[facility] PROVIDER [facility] Start: 11-13-2022 End: 11-13-2022 Subsequent hospital visit by physician Alta Emmanuel RN Work Phone: [facility] Oncology Medical Comment on above: Dx: Anal squamous ce ll carcinoma (HCC) (Primary Dx) Start: 11-10-2022 End: 11-10-2022 ambulatory UN[facility] PROVIDER [facility] Start: 11-09-2022 End: 11-09-2022 ambulatory UNKNOWN PROVIDER Facility:[facility] Start: 11-08-2022 End: 11-08-2022 ambulatory UNKNOWN PROVIDER Facility:[facility] Start: 11-07-2022 End: 11-07-2022 ambulatory UNKNOWN PROVIDER Facility:[facility] Start: 11-06-2022 ambulatory UNKNOWN PROVIDER Facili ty:[facility] Start: 11-06-2022 End: 11-06-2022 Clinical Support Pathology Provider [facility] Pathology Comment on above: Arrived Start: 11-03-2022 Orders Only Jana Veloz RN [facility] Radiation Oncology Start: 2022 End: 11-02-2022 Evaluation and management of inpatient LARA BRE Facility:[facility] Start: 10-31-2022 End: 2022 Evaluation and management of inpatient [facility] Facility:[facility] Start: 10-31-2022 End: 10-31-2022 Subsequent hospital visit by physician Jameson Renae MD Work Phone: [facility] Radiology Comment on above: Arrived Start: 10-31-2022 End: 11-02-2022 Evaluation and management of inpatient Jameson Renae MD Work Phone: [facility] [address] [facility] A Comment on above: Dx: Anal squamous ce ll carcinoma (HCC) (Primary Dx) Start: 10-31-2022 End: 10-31-2022 ambulatory [facility] Facility:[facility] Start: 10-31-2022 End: 10-31-2022 ambulatory LARA BRELL Facility:[facility] Start: 10-31-2022 End: 10-31-2022 ambulatory UNKNOWN PROVIDER Facility:[facility] Start: 10-30-2022 End: 10-30-2022 ambulatory UNKNOWN PROVIDER Facility:[facility] Start: 10-27-2022 End: 10-27-2022 ambulatory UNKNOWN PROVIDER Facility:[facility] Start: 10-26-2022 End: 10-26-2022 ambulatory UNKNOWN PROVIDER Facility:[facility] Start: 10-25-2022 End: 10-25-2022 ambulatory UNKNOWN PROVIDER Facility:[facility] Start: 10-24-2022 End: 10-24-2022 ambulatory [facility] Start: 10-23-2022 End: 10-23-2022 ambulatory UN[facility] PROVIDER [facility] Start: 10-20-2022 End: 10-20-2022 ambulatory [facility] PROVIDER [facility] Start: 10-19-2022 End: 10-19-2022 ambulatory UN[facility] PROVIDER [facility] Start: 10-19-2022 End: 10-20-2022 ambulatory UNKNOWN PROVIDER [facility] Start: 10-19-2022 End: 10-20-2022 Office outpatient new 60 minutes Dana Ordonez MAMMOGRAPHY TECH-PSYCHOLOGIST [employer] Work Phone: [facility] Oncology Palliative Care Comment on above: Palliative care enco unter (Primary Dx); Palliative care by specialist; Cancer related pain; Body mass index (BMI) 20.0-20.9, adult Start: 10-18-2022 End: 10-18-2022 ambulatory UNKNOWN PROVIDER Facility:[facility] Start: 10-17-2022 End: 10-17-2022 ambulatory [facility] Start: 10-16-2022 End: 10-17-2022 ambulatory [facility]ER [facility] Start: 10-16-2022 End: 10-16-2022 Subsequent hospital visit by physician Lyn Baum RN Work Phone: [facility] On[facility] Medical Comment on above: Dx: Perianal mass (P rimary Dx) Start: 10-16-2022 End: 10-16-2022 Office outpatient visit 40 minutes Ky Vegas APRN-CARGO SUPERVISOR Work Phone: [facility] Medical Comment on above: Dx: Anal squamous ce ll carcinoma (HCC) (Primary Dx) Start: 10-11-2022 ambulatory Jennifer solis BSN Work Phone: [facility] Care Management/Patient Access Start: 10-11-2022 Coordination of care plan Robbin Nash BSN Work Phone: [facility] Care Management/Patient Access Comment on above: care coordination Start: 10-06-2022 End: 10-06-2022 Specialty Pharmacy Camron Roque PharmD Work Phone: [facility] Comment on above: Specialty Pharmacy M edication Refill (Xeloda) Start: 10-06-2022 End: 10-06-2022 Nursing evaluation of patient and report Rad Onc Nurse [facility] Radiation Oncology Comment on above: Anal squamous cell c arcinoma (HCC) (Primary Dx) Start: 10-03-2022 End: 10-04-2022 ambulatory UNKNOWN PROVIDER Facility:[facility] Start: 10-03-2022 End: 10-03-2022 ambulatory UNKNOWN PROVIDER Facility:[facility] Start: 10-03-2022 End: 10-03-2022 Subsequent hospital visit by physician Bv Op Ct Scan 1 Work Phone: [facility] CT Scan Comment on above: Anal cancer (HCC) Start: 10-03-2022 End: 10-03-2022 Subsequent hospital visit by physician Leticia Holden RN Work Phone: [facility] Medical Comment on above: Dx: Anal squamous ce ll carcinoma (HCC) Start: 10-03-2022 End: 10-03-2022 ambulatory UNKNOWN PROVIDER Facility:[facility] Start: 10-03-2022 End: 10-03-2022 Office outpatient visit 25 minutes Lara Smith MD Work Phone: [facility] Medical Comment on above: Dx: Anal squamous ce ll carcinoma (HCC) (Primary Dx) Start: 10-03-2022 End: 10-03-2022 Office outpatient new 60 minutes Mitra Ramos MD, PhD Work Phone: [facility] Radiation Oncology Comment on above: Anal squamous cell c arcinoma (HCC) (Primary Dx); Body mass index (BMI) 20.0-20.9, adult Start: 10-02-2022 Telephone encounter [place] MAMMOGRAPHY TECH-CARGO SUPERVISOR Work Phone: [facility] Medical Start: 09-27-2022 Orders Only Lara Nieto Work Phone: [facility] Medical Start: 09-17-2022 ambulatory Yoselin varghese MD Work Phone: [facility] Start: 09-08-2022 Telephone encounter Yoselin Padron MD Work Phone: [facility] Surgery General Comment on above: Discuss results test /procedures Discuss results test /procedures; Discuss treatment plan Start: 09-06-2022 Telephone encounter Yoselin Padron MD Work Phone: [facility] Surgery General Comment on above: Discuss results test /procedures Start: 08-28-2022 End: 08-29-2022 ambulatory YOSELIN PADRON Facility:[facility] Start: 08-25-2022 ambulatory UNKNOWN PROVID[facility] Start: 08-25-2022 Encounter for other preprocedural examination [facility]KNOWN [facility] Start: 08-09-2022 Admission to [facility] Yoselin Padron MD Work Phone: [facility] Surgery General Start: 07-25-2022 End: 07-26-2022 ambulatory UNKNOWN PROVIDER Facility:[facility] Start: 06-27-2022 Letter encounter Lara Smith MD Work Phone: [facility] Medical Start: 06-27-2022 Telephone encounter Yobani whitney DDS, MD Work Phone: [facility] Start: 06-01-2022 End: 06-02-2022 ambulatory Nahum Jones Facility:[facility] Start: 06-01-2022 End: 06-01-2022 Patient encounter procedure Nahum Jones [facility] Start: 01-11-2022 End: 01-11-2022 ambulatory DNP Lizbeth Penaloza Work Phone: [facility] Work Phone: Start: 01-11-2022 End: 01-11-2022 Registered Recurring DNP Lizbeth Penaloza [facility] Start: 12-02-2021 End: 12-02-2021 Registered Recurring DNP Lizbeth Penaloza [facility] Start: 12-01-2021 ambulatory PCP UNKNOWN Facility:[id number] Start: 12-01-2021 Office consultation new/estab patient 80 min Referring Provider Unknown [id number] Work Phone: Start: 11-04-2021 ambulatory PCP UNKNOWN Facility:[facility] Start: 11-03-2021 End: 11-03-2021 Registered Recurring DNP Lizbeth Ca [facility] Start: 10-26-2021 End: 10-26-2021 Registered Recurring DNP Lizbeth Ca Work Phone[facility] [place] Start: 10-03-2021 End: 10-03-2021 ambulatory Edgar Galloway Other [facility] Other Start: 10-03-2021 Telephone encounter Edgar Galloway [facility] [address] Start: 09-29-2021 End: 09-29-2021 Patient encounter procedure DNP Lizbeth Blevinsclaudine Work Phone: [facility] Start: 09-29-2021 End: 09-29-2021 ambulatory Edgar Galloway Other [facility] Other Start: 09-29-2021 Office outpatient vi sit 15 minutes Edgar Galloway [facility] [place] Start: 08-10-2021 Telephone encounter Karolina Johnson [facility] Surgery General Start: 08-01-2021 Telephone encounter Penelope Guzmán RN [facility] Surgery General Comment on above: Care Coordination Start: 07-27-2021 Telephone encounter Yoselin Padron MD Work Phone: [facility] Start: 07-26-2021 Telephone encounter Yoselin Padron MD Work Phone: [facility] General Comment on above: Discuss results test /procedures Start: 07-19-2021 End: 07-19-2021 Subsequent hospital visit by physician Yoselin Padron MD Work Phone: [facility] Main OR Comment on above: Anal lesion (Primary Dx); Perianal mass Start: 07-15-2021 End: 07-19-2021 Office outpatient new 45 minutes Yoselin Padron MD Work Phone: [facility] Surgery General Comment on above: Perianal mass (Prima ry Dx); Abnormal electrocardiogram (ECG) (EKG); Body mass index (BMI) 20.0-20.9, adult Start: 07-15-2021 Admission to [facility] Yoselin Padron MD Work Phone: [facility] General Start: 07-15-2021 Telephone encounter Karolinageneva Johnson [facility] Start: 07-12-2021 Letter encounter Karolina Johnson [facility] Start: 07-06-2021 End: 07-07-2021 Office outpatient new 45 minutes Victoriano Chandler MD Work Phone: [facility] Dermatology Comment on above: 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) Start: 06-09-2020 End: 06-09-2020 Patient encounter procedure Lizbeth Penaloza -Ultrasound [facility] Start: 05-28-2020 End: 05-28-2020 Patient encounter procedure Lizbeth Penaloza -Ultrasound [facility] Procedures Date Procedure Procedure Detail Performing Clinician Start: 03-18-2024 Adult depression scr eening assessment Gio Rickmeenakshi DO Work Phone: Start: 10-30-2023 Adult depression scr eening assessment Gio Rickmeenakshi DO Work Phone: Start: 10-24-2023 Level i surg patholo gy gross examination only Not In System Ref Prov Start: 10-24-2023 End: 10-24-2023 Colonoscopy Chey Infante DO Work Phone: Start: 10-18-2023 Follow-up visit Follow-up DARCY MENA Start: 08-09-2023 Adult depression scr eening assessment Chey Infante DO Work Phone: Start: 12-07-2022 Introduction needle/intracatheter vein B[place]-Min Song MAMMOGRAPHY TECH-CARGO SUPERVISOR Work Phone: Start: 12-07-2022 Iv infusion hydratio n initial 31 min-1 hour B[place]-Min Song MAMMOGRAPHY TECH-CARGO SUPERVISOR Work Phone: Start: 11-27-2022 RAD ONC ARIA SESSION SUMMARY Rad Onc Provider Start: 11-23-2022 Drug screen, single Jatinder ie Mery MAMMOGRAPHY TECH-PSYCHOLOGIST [employer] Work Phone: Start: 11-13-2022 Iv infusion hydratio [...] Work Phone: Start: 11-02-2022 Assay of magnesium Wellington Franciscow PA-C Work Phone: Start: 2022 Cul prsmptv pthgnc o rganism scrn w/colony estimj Jameson Renae MD Work Phone: Start: 2022 Drug screen quantita tive vancomycin Autumn Trujillo [facility] Work Phone: Start: 2022 Assay of magnesium Dyla n Kadow PA-C Work Phone: Start: 10-31-2022 Radiologic exam ches t single view Souleymane Kadow PA-C Work Phone: Start: 10-31-2022 Ecg routine ecg w/le ast 12 lds trcg only w/o i&r Souleymane Whitley PA-C Work Phone: Start: 10-16-2022 Chemotx admn [...] Start: 12-15-2021 MRI of pelvis with contrast DNP Lizbeth Penaloza Work Phone: Start: 11-02-2021 Mammography Gio Cabrera meenakshi DO Work Phone: Start: 09-29-2021 Plain X-ray of left hand DNP iLzbeth Penaloza Work Phone: Start: 07-15-2021 Ecg routine ecg w/le ast 12 lds trcg only w/o i&r To Be Assigned Start: 06-09-2020 US scan of thyroid Aidee Penaloza Start: 05-28-2020 Doppler ultrasonogra phy of bilateral carotid arteries Lizbeth Penaloza Start: 01-02-2012 Microscopic observat ion [Identifier] in Cervix by Cyto stain Chey Infante DO Work Phone: Urine culture DNP Lizbeth Chaitanya abad Work Phone: Plan of Treatment Date Care Activity Detail Author Start: 10-23-2033 Screening for malign ant neoplasm of colon Colonoscopy [facility] Start: 10-23-2028 Screening for malign ant neoplasm of colon Colonoscopy [facility] Start: 05-28-2026 Cholesterol [Mass/volume] in Serum or Plasma Cholesterol [facility] Start: 03-18-2025 Adult BMI Screening Adult BMI Screen ing [facility] Start: 03-18-2025 Depression Screening Depression Scre ening [facility] Start: 03-18-2025 Fall Risk Screening Fall Risk Screen ing [facility] Start: 03-18-2025 Medicare Annual Well ness Visit Medicare Annual Wellness Visit [facility] Start: 03-18-2025 Tobacco Screening Tobacco Screening [facility] Start: 10-29-2024 Adult BMI Screening Adult BMI Screen ing [facility] Start: 10-29-2024 Depression Screening Depression Scre ening [facility] Start: 10-29-2024 Tobacco Screening Tobacco Screening [facility] Start: 10-17-2024 Adult BMI Screening Adult BMI Screen ing [facility] Start: 10-17-2024 Tobacco Screening Tobacco Screening [facility] Start: 08-28-2024 Tobacco Screening Tobacco Screening [facility] Start: 08-08-2024 Adult BMI Screening Adult BMI Screen ing [facility] Start: 08-08-2024 Depression Screening Depression Scre ening [facility] Start: 08-08-2024 Tobacco Screening Tobacco Screening [facility] Start: 06-17-2024 End: 06-17-2024 Patient encounter procedure 06/17/2024 1:30 PM EDT Office Visit [facility] Internal Medicine - Family Medicine [address] [place] [address] Gio Chan, DO [address], [place] [address] [facility] Internal Medicine - Family Medicine Start: 06-09-2024 End: 06-09-2024 Patient encounter procedure 06/09/2024 1:00 PM EST Office Visit [facility] Internal Medicine - Family Medicine [address] [place] [address] Gio Chan, DO [address], [place] [address] [facility] Internal Medicine - Family Medicine Start: 03-10-2024 End: 03-10-2024 Patient encounter procedure 03/10/2024 11:30 AM EST Office Visit [facility] Internal Medicine - Family Medicine [address] [place] [address] Gio Chan, DO [address], [place] [address] [facility] - [facility] Start: 01-31-2024 End: 01-31-2024 Patient encounter procedure 01/31/2024 2:15 PM EDT Office Visit [facility] Internal [facility] - Family Medicine [address] [place] [address] Gio Chan, DO [address], [place] [address] [facility] - [facility] Start: 01-08-2024 Influenza vaccination Influenza Vacc ine (#1) [facility] Start: 12-09-2023 Influenza vaccination Influenza Vacc ine [facility] Start: 11-02-2023 Fall Risk Screening Fall Risk Screen ing [facility] Start: 10-30-2023 End: 10-29-2024 DBT Breast - bilateral screening Mammography screening bilateral with CAD Imaging Routine Encounter for screening mammogram for malignant neoplasm of breast Expected: 10/30/2023, Expires: 10/29/2024 [facility] Work Phone: Comment on above: Expected: 10/30/2023 , Expires: 10/29/2024 Start: 10-30-2023 End: 10-30-2023 Patient encounter procedure 10/30/2023 1:30 PM EDT Office Visit [facility] Internal Medicine - Family Medicine [address] [place] [address] Gio Chan, DO [address], [place] [address] [facility] Internal [facility] - [facility] Medicine Start: 10-24-2023 End: 10-24-2023 Patient encounter procedure 10/24/2023 8:00 AM EDT Procedure visit [facility] General Surgery [address] [place] [id number] Chey Infante, DO [address] [place] [address] [facility] General Surgery Start: 10-21-2023 DTaP,Tdap and Td Vaccines (2 - Td or Tdap) DTaP,Tdap and Td Vaccines (2 - Td or Tdap) [facility] Start: 10-19-2023 End: 10-19-2023 Patient encounter procedure 10/19/2023 1:30 PM EDT Office Visit [facility] General Surgery [address] [place] [phone] Darcy Mena, MAMMOGRAPHY TECH-PSYCHOLOGIST [employer] [address] [place] [address] [facility] General Surgery Start: 08-29-2023 End: 08-29-2023 Patient encounter procedure 08/29/2023 2:00 PM EDT Office Visit [facility] General Surgery [address] [place] [phone] Chey Infante, DO [address] [place] [address] [facility] General Surgery Start: 06-15-2023 End: 06-15-2023 ambulatory 06/15/2023 10:00 AM EST Financial Counseling [facility] Business Office [address] [place] [address] [employer] [facility] Business Office Start: 03-13-2023 End: 03-13-2023 Patient encounter procedure 03/13/2023 1:00 PM EST Office Visit [facility] Radiation Oncology [address] [place] [address] Mitra Ramos MD, PhD [address] [place] [address] [facility] Start: 03-08-2023 End: 12-08-2023 PET+CT Guidance for limited for localization of tumor of Unspecified body region-- W [id number] IV and W contrast IV PET SUBSEQ/DIAG CT NCK/CHST/ABD/PEL W/ Imaging Routine Anal squamous cell carcinoma (HCC) Expected: 03/08/2023 (Approximate), Expires: 12/08/2023 [employer] Work Phone: Comment on above: Expected: 03/08/2023 (Approximate), Expires: 12/08/2023 Start: 03-07-2023 End: 03-07-2023 Patient encounter procedure [facility] Start: 02-06-2023 End: 02-06-2023 Patient encounter procedure 02/06/2023 10:00 AM EDT Appointment [facility] [address] [place] [address] Lara Smith MD [address] [place] [address] [facility] Start: 01-24-2023 End: 01-24-2023 Patient encounter procedure [facility] Start: 01-23-2023 End: 01-23-2023 Patient encounter procedure 01/23/2023 9:30 AM EDT Appointment [facility] [address] [place] [address] Ky Vegas APRN-CARGO SUPERVISOR [address] [place] [address] [facility] Start: 01-16-2023 End: 01-16-2023 Patient encounter procedure 01/16/2023 9:30 AM EDT Appointment [facility] [address] [place] [address] Lara Smith MD [address] [place] [address] [facility] Start: 01-12-2023 End: 01-12-2023 Patient encounter procedure 01/12/2023 11:00 AM EDT Appointment [facility] [address] [place] [address] [place] [address] [facility] Start: 01-09-2023 End: 01-09-2023 Patient encounter procedure 01/09/2023 9:30 AM EDT Appointment [facility] [address] [place] [address] [facility] Start: 01-07-2023 Influenza vaccination Influenza Vacc ine (#1) [facility] Start: 12-29-2022 End: 12-29-2022 Telemedicine consultation with patient 12/29/2022 8:00 AM EDT Telemedicine [facility] On[facility] Palliative Care [address] [place] [address] Dana Ordonez APRN-ESTIVEN [address] [place] [address] [facility] Palliative Care Start: 12-20-2022 End: 12-20-2022 Patient encounter procedure 12/20/2022 9:00 AM EDT Appointment [facility] [address] [place] [address] [place] [address] [facility] Start: 12-08-2022 COVID-19 Vaccine ( season) COVID-19 Vaccine ( season) [facility] Start: 12-08-2022 Influenza vaccination Influenza Vacc ine (#1) [facility] Start: 12-07-2022 End: 12-07-2022 Patient encounter procedure [facility] Start: 12-01-2022 End: 12-01-2022 Telemedicine consultation with patient 12/01/2022 9:00 AM EDT Telemedicine [facility] [address] [place] [address] Dana Ordonez APRN-PSYCHOLOGIST [employer] [address] [place] [address] [facility] Start: 11-29-2022 End: 11-29-2022 ambulatory [facility] Start: 11-28-2022 End: 11-28-2022 ambulatory [facility] Start: 11-27-2022 End: 11-27-2022 ambulatory [facility] Start: 11-24-2022 End: 11-24-2022 ambulatory [facility] Start: 11-23-2022 End: 11-23-2022 Patient encounter procedure 11/23/2022 2:30 PM EDT Office Visit [facility] [address] [place] [address] Dana Ordonez APRN-PSYCHOLOGIST [employer] [address] [place] [address] [facility] Start: 11-23-2022 End: 11-23-2022 ambulatory [facility] Start: 11-22-2022 End: 11-22-2022 ambulatory [facility] Start: 11-21-2022 End: 11-21-2022 ambulatory [facility] Start: 11-20-2022 End: 11-20-2022 ambulatory [facility] Start: 11-17-2022 End: 11-17-2022 Patient encounter procedure 11/17/2022 3:00 PM EDT Appointment [facility] [address] [place] [address] [facility] Start: 11-17-2022 End: 11-17-2022 ambulatory [facility] Start: 11-16-2022 End: 11-16-2022 ambulatory [facility] Start: 11-16-2022 End: 11-16-2022 Patient encounter procedure 11/16/2022 1:00 PM EDT [facility] [address] [place] [address] Dana Ordonez APRN-PSYCHOLOGIST [employer] [address] [place] [address] [facility] Start: 11-15-2022 End: 11-15-2022 ambulatory [facility] Start: 11-14-2022 End: 11-14-2022 ambulatory [facility] Start: 11-13-2022 End: 11-13-2022 ambulatory [facility] Start: 11-13-2022 End: 11-13-2022 [facility] Start: 11-10-2022 End: 11-10-2022 ambulatory [facility] Start: 11-09-2022 End: 11-09-2022 ambulatory [facility] Start: 11-09-2022 End: 11-09-2022 Patient encounter procedure 11/09/2022 1:30 PM EDT [facility] [address] [place] [address] Dana Ordonez APRN-PSYCHOLOGIST [facility] [address] [place] [address] [facility] Start: 11-08-2022 End: 11-08-2022 ambulatory [facility] Start: 11-07-2022 End: 11-07-2022 ambulatory [facility] Start: 11-06-2022 End: 11-06-2022 ambulatory [facility] Start: 11-06-2022 End: 12-04-2022 CBC W Auto Differential panel - Blood COMPLETE BLOOD COUNT W/DIFF Lab Routine Anal cancer (HCC) Expected: 11/06/2022, Expires: 12/04/2022 [facility] Work Phone: Comment on above: Expected: 11/06/2022 , Expires: 12/04/2022 Start: 11-03-2022 End: 11-03-2022 ambulatory [facility] Start: 11-02-2022 End: 11-02-2022 ambulatory [facility] Start: 11-02-2022 Screening for malign ant neoplasm of breast [facility] Start: 2022 End: 2022 ambulatory [facility] Start: 10-31-2022 End: 10-31-2022 ambulatory [facility] Start: 10-30-2022 End: 10-30-2022 ambulatory [facility] Start: 10-27-2022 End: 10-27-2022 ambulatory [facility] Start: 10-26-2022 End: 10-26-2022 ambulatory [facility] Start: 10-25-2022 End: 10-25-2022 Patient encounter procedure 10/25/2022 2:00 PM EDT [facility] [address] [facility] [place] [phone] Dana Ordonez APRN-ESTIVEN [address] [facility] [place] [address] [facility] Start: 10-25-2022 End: [...] ambulatory 10/16/2022 1:20 PM EDT Assessment/Treatment Report [facility] Radiation Oncology [address] [place] [phone] Mitra Ramos MD, PhD [address] [place] [phone] [facility] Radiation Oncology Start: 10-16-2022 End: 10-16-2022 Patient encounter procedure [facility] Oncology Medical Start: 10-06-2022 End: 10-06-2022 Patient encounter procedure 10/06/2022 9:00 AM EDT Office Visit [facility] Radiation Oncology [address] [place] [phone] Mitra Ramos MD, PhD [address] [place] [address] [facility] Radiation Oncology Start: 10-04-2022 End: 10-04-2022 Patient encounter procedure 10/04/2022 8:30 AM EDT Appointment [facility] Oncology Medical [address] [place] [address] Lara Smith MD [address] [place] [address] [facility] Oncology Medical Start: 10-03-2022 End: 10-03-2022 [facility] Start: 10-03-2022 End: 10-03-2022 Nursing evaluation of patient and report 10/03/2022 8:30 AM EDT Nurse Visit [facility] Radiation Oncology [address] [place] [phone] [facility] Radiation Oncology Start: 08-25-2022 End: 08-25-2022 Patient encounter procedure 08/25/2022 Office Visit General Surgery Times, Yoselin Ojeda MD [address] [place] [address] [facility] Surgery General Start: 07-25-2022 End: 07-25-2022 Patient encounter procedure 07/25/2022 Appointment Oncology Medical Lara Smith MD [address] [place] [phone] [facility] Oncology Medical Start: 01-07-2022 Influenza vaccination Influenza Vacc ine (#1) [facility] Start: 12-21-2021 [facility], Provider: Gracy Hayden, Status: Pen, Time: 9:30 AM [facility], Provider: Kory Hayden, Status: Pen, Time: 9:30 AM [id number] Work Phone: Start: 08-19-2021 End: 08-19-2021 Patient encounter procedure 08/19/2021 Office Visit General Surgery Yoselin Padron MD [address] [place] [phone] [facility] General Surgery Start: 07-19-2021 End: 07-19-2021 Admission to same day surgery center 07/19/2021 Surgery General Surgery Vito, Yoselin Ojeda MD [address] [place] [phone] EUA, anal mass biopsies [facility] Main OR Comment on above: EUA, anal mass biops ies Start: 07-19-2021 End: 07-19-2021 EUA, RECTAL EUA, RECTAL Routine scheduled Perianal mass 07/19/2021 11:27 AM EDT [facility] Start: 07-19-2021 Subsequent hospital visit by physician 07/19/2021 Hospital Encounter General Surgery Yoselin Padron MD [address] [place] [address] [facility] Main OR Start: 07-19-2021 End: 07-19-2021 EUA, RECTAL EUA, RECTAL Routine scheduled Perianal mass 07/19/2021 10:09 AM EDT [facility] Start: 07-18-2021 End: 07-18-2021 Nursing evaluation of patient and report 07/18/2021 Nurse Visit Presurgical Evaluation [facility] Pre Surgical Evaluation Start: 07-15-2021 End: 07-15-2021 Patient encounter procedure 07/15/2021 Office Visit General Surgery Times, Yoselin Ojeda MD [address] [place] [address] [facility] Surgery General Start: 01-09-2021 COVID-19 Vaccine (3 - Booster for Pfizer series) COVID-19 Vaccine (3 - Booster for Pfizer series) [facility] Start: 11-07-2020 Influenza vaccination Influenza Vacc ine (#1) [facility] Start: 10-04-2020 COVID-19 Vaccine (2 - Pfizer series) COVID-19 Vaccine (2 - Pfizer series) [facility] Start: 10-04-2020 COVID-19 Vaccine (3 - Booster for Pfizer series) COVID-19 Vaccine (3 - Booster for Pfizer series) [facility] Start: 09-06-2020 COVID-19 Vaccine (3 - Pfizer risk series) COVID-19 Vaccine (3 - Pfizer risk series) [facility] Start: 08-30-2020 COVID-19 Vaccine (2 - Pfizer risk series) COVID-19 Vaccine (2 - Pfizer risk series) [facility] Start: 08-30-2020 COVID-19 Vaccine (2 - Pfizer series) COVID-19 Vaccine (2 - Pfizer series) [facility] Start: 2018 Hepatitis B (HBV) Vaccine (optional start 60+ years) Hepatitis B (HBV) Vaccine (optional start 60+ years) [facility] Start: 2018 RSV vaccine (optiona l 60+ years) RSV vaccine (optional 60+ years) [facility] Start: 01-01-2015 Screening for malign ant neoplasm of cervix Pap Smear [facility] Start: 2008 Administration of varicella zoster vaccine Zoster (Shingles) Vaccine (1 of 2) [facility] Start: 2008 Measurement of occul t blood in single stool specimen FIT [facility] Start: 2008 Screening for malign ant neoplasm of breast Mammography [facility] Start: 2008 Screening for malign ant neoplasm of colon CRC Screening [facility] Start: 2008 Varicella-zoster vac cine (product) Shingles (RZV) Vaccine (1 of 2) [facility] Start: 11-02-2003 Cholesterol [Mass/volume] in Serum or Plasma Cholesterol [facility] Start: 11-02-2003 Screening for malign ant neoplasm of colon [facility] Start: 1998 Screening for malign ant neoplasm of breast Mammography [facility] Start: 11-02-1979 Screening for malign ant neoplasm of cervix Pap Smear [facility] Start: 1977 Administration of varicella zoster vaccine Zoster (Shingles) Vaccine (1 of 2) [facility] Start: 1977 Hepatitis A (HAV) Vaccine (optional start 19+ years) Hepatitis A (HAV) Vaccine (optional start 19+ years) [facility] Start: 1977 Shingles (RZV) Vacci ne (1 of 2) Shingles (RZV) Vaccine (1 of 2) [facility] Start: 1976 Adult BMI Follow Up Plan Adult BMI Follow Up Plan [facility] Start: 1976 Hepatitis C screening Hepatitis C An tibody [facility] Start: 1976 Tetanus + diphtheria + acellular pertussis vaccine (product) Tdap Booster [facility] Start: 1973 HIV screening HIV Test [facility] Start: 1964 Pneumococcal vaccination [facility] Start: 1958 COVID-19 Vaccine ( formulation) COVID-19 Vaccine ( formulation) [facility] Start: 1958 Medicare Annual Well ness Visit Medicare Annual Wellness Visit [facility] Start: 1958 Screening for malign ant neoplasm of colon [facility] End: 10-04-2023 Assay of magnesium MAGNESIUM Lab STAT Anal squamous cell carcinoma (HCC) 24 Occurrences starting 10/03/2022 until 10/04/2023, 1 completed [facility] Comment on above: 24 Occurrences start ing 10/03/2022 until 10/04/2023, 1 completed Assay of magnesium MAGNESIUM Lab Routine Daily until discontinued starting 2022, 2 completed [facility] Comment on above: Daily until disconti nued starting 2022, 2 completed End: 10-04-2023 Basic metabolic 2000 panel - Serum or Plasma BASIC METABOLIC PANEL Lab STAT Anal squamous cell carcinoma (HCC) 24 Occurrences starting 10/03/2022 until 10/04/2023, 1 completed [employer] [facility] Work Phone: Comment on above: 24 Occurrences start ing 10/03/2022 until 10/04/2023, 1 completed End: 11-03-2022 Basic metabolic 2000 panel - Serum or Plasma BASIC METABOLIC PANEL Lab Routine Morning Blood Draw for 1 Occurrences starting 11/03/2022 until 11/03/2022 [employer] [facility] Work Phone: Comment on above: Morning Blood Draw f or 1 Occurrences starting 11/03/2022 until 11/03/2022 BIOPSY, RECTAL BIOPSY, RECTAL R outine scheduled Perianal mass [facility] End: 10-04-2023 CBC W Auto Differential panel - Blood COMPLETE BLOOD COUNT W/DIFF Lab STAT Anal squamous cell carcinoma (HCC) 24 Occurrences starting 10/03/2022 until 10/04/2023, 1 completed [employer] Comment on above: 24 Occurrences start ing 10/03/2022 until 10/04/2023, 1 completed CBC W Auto Different ial panel - Blood COMPLETE BLOOD COUNT W/DIFF Lab Routine Daily until discontinued starting 2022, 2 completed [employer] [facility] Work Phone: Comment on above: Daily until disconti nued starting 2022, 2 completed End: 08-28-2024 Colonoscopy Colonoscopy GI Routine Recurrent anal squamous cell carcinoma (CMS-HCC) 1 Occurrences starting 08/29/2023 until 08/28/2024 [facility] Work Phone: Comment on above: 1 Occurrences starti ng 08/29/2023 until 08/28/2024 Comprehensive metabo lic 2000 panel - Serum or Plasma [facility] Work Phone: Comprehensive metabo lic 2000 panel - Serum or Plasma [facility] Comprehensive metabo lic 2000 panel - Serum or Plasma [facility] Computed tomography for radiotherapy planning [facility] Work Phone: Computed tomography for radiotherapy planning [facility] Drug screen, single PAIN MANAGEM ENT PANEL Lab Routine Palliative care encounter Palliative care by specialist Cancer related pain Ordered: 10/19/2022 [employer] [facility] Work Phone: Comment on above: Ordered: 10/19/2022 Drug screen, single PAIN MANAGEM ENT PANEL Lab Routine Anal cancer (HCC) Use of opiates for therapeutic purposes 11/23/2022 2:09 PM EDT [employer] [facility] Work Phone: End: 10-04-2023 Hepatic function panel HEPATIC FUNCTION PANEL Lab STAT Anal squamous cell carcinoma (HCC) 24 Occurrences starting 10/03/2022 until 10/04/2023, 1 completed [facility] Comment on above: 24 Occurrences start ing 10/03/2022 until 10/04/2023, 1 completed MR Pelvis WO and W contrast IV [facility] Work Phone: MR Pelvis WO and W contrast IV [facility] Patient Education PET-CT Scan [facility] Work Phone: Surgical pathology procedure SPECIMEN FOR SURGICAL PATH Anatomic Pathology Routine Perianal mass Release Upon Ordering for 1 Occurrences starting 07/19/2021 [employer] [facility] Work Phone: Comment on above: Release Upon Orderin g for 1 Occurrences starting 07/19/2021 [facility] Immunizations Immunization Date Immunization Notes Care Provider Fa cili 03-18-2024 Seasonal trivalent influenza vaccine, adjuvanted, preservative free Gio Chan DO Work Phone: [employer] 03-18-2024 Immunization, In Clinic,; Translations: [Drug or medicament (substance)] Gio Chan DO Work Phone: [employer] 08-09-2020 [employer] COVID-19 Vacc 30 MCG/0.3ML Intramuscular Suspension Referring Provider Unknown [facility] 07-23-2020 Pfizer-[employer] COVID-19 Vacc 30 MCG/0.3ML Intramuscular Suspension Referring Provider Unknown [id number] Work Phone: 10-20-2013 tetanus and diphther ia toxoids, adsorbed, preservative free, for adult use (5 Lf of tetanus toxoid and 2 Lf of diphtheria toxoid) Chey Mckeonisabel DO Work Phone: [facility] Payers Date Payer Category Payer Self-pay [id number] 2023 Managed Care Other (unspecified) [id number] 2023 Medicare [id number]. 1.13.424.2.7. [id number] 2023 Medicare [id number] 2023 Medicare [id number] 2022 Unknown [employer]AP[employer] 2022 Unknown [id number] 2021 Unknown [id number]. 1.13.56.2.7.3 .304982.315 1958 Unknown [id number] 2.16.840.1.334629.3.579.2.35 6 1958 Unknown [id number] 2.16.840.1.324928.3.579.2.35 6 1958 Unknown [id number] 2.16.840.1.920789.3.579.2.72 7 1958 Unknown [id number] 2.16.840.1.290337.3.579.2.73 2 1958 Unknown [id number] 2.16.840.1.824065.3.579.2.73 2 1958 Unknown [id number] 2.16.840.1.034942.3.579.2.73 2 1958 Unknown [id number] 2.16.840.1.060200.3.579.2.73 2 1958 Unknown [id number] 2.16.840.1.446944.3.579.2.73 2 1958 Unknown [id number] 2.16.840.1.769895.3.579.2.73 2 1958 Unknown [id number] 2.16.840.1.097753.3.579.2.73 2 1958 Unknown [id number] 2.16.840.1.925641.3.579.2.73 2 1958 Unknown [id number] 2.16.840.1.158067.3.579.2.73 2 1958 Unknown [id number] 2.16.840.1.074722.3.579.2.73 2 1958 Unknown [id number] 2.16.840.1.331536.3.579.2.73 2 1958 Unknown [id number] 2.16.840.1.297070.3.579.2.73 2 1958 Unknown [id number] 2.16.840.1.987975.3.579.2.73 2 1958 Unknown [id number] 2.16.840.1.571694.3.579.2.73 2 1958 Unknown [id number] 2.16.840.1.719587.3.579.2.73 2 1958 Unknown [id number] 2.16.840.1.164958.3.579.2.73 2 1958 Unknown [id number] 2.16.840.1.070614.3.579.2.73 2 1958 Unknown [id number] 2.16.840.1.842975.3.579.2.73 2 1958 Unknown [id number] 2.16.840.1.549125.3.579.2.73 2 1958 Unknown [id number] 2.16.840.1.938817.3.579.2.73 2 1958 Unknown [id number] 2.16.840.1.233046.3.579.2.73 2 1958 Unknown [id number] 2.16.840.1.681189.3.579.2.73 2 1958 Unknown [id number] 2.16.840.1.756077.3.579.2.73 2 1958 Unknown [id number] 2.16.840.1.659225.3.579.2.73 2 1958 Unknown [id number] 2.16.840.1.282270.3.579.2.73 2 1958 Unknown [id number] 2.16.840.1.061656.3.579.2.73 2 1958 Unknown [id number] 2.16.840.1.584678.3.579.2.73 2 1958 Unknown [id number] 2.16.840.1.817887.3.579.2.73 2 1958 Unknown [id number] 2.16.840.1.475374.3.579.2.73 2 1958 Unknown [id number] 2.16.840.1.290001.3.579.2.73 2 1958 Unknown [id number] 2.16.840.1.936777.3.579.2.73 2 1958 Unknown [id number] 2.16.840.1.346712.3.579.2.73 2 1958 Unknown [id number] 2.16.840.1.214749.3.579.2.73 2 1958 Unknown [id number] 2.16.840.1.791632.3.579.2.73 2 1958 Unknown [id number] 2.16.840.1.028282.3.579.2.73 2 1958 Unknown [id number] 2.16.840.1.605259.3.579.2.73 2 1958 Unknown [id number] 2.16.840.1.671900.3.579.2.73 2 1958 Unknown [id number] 2.16.840.1.521372.3.579.2.73 2 1958 Unknown [id number] 2.16.840.1.086428.3.579.2.73 2 1958 Unknown [id number] 2.16.840.1.315183.3.579.2.73 2 1958 Unknown [id number] 2.16.840.1.124560.3.579.2.73 2 1958 Unknown [id number] 2.16.840.1.553783.3.579.2.73 2 1958 Unknown [id number] 2.16.840.1.473845.3.579.2.73 2 1958 Unknown [id number] 2.16.840.1.985476.3.579.2.73 2 1958 Unknown [id number] 2.16.840.1.462322.3.579.2.73 2 1958 Unknown [id number] 2.16.840.1.714834.3.579.2.73 2 1958 Unknown [id number] 2.16.840.1.097227.3.579.2.73 2 1958 Unknown [id number] 2.16.840.1.989344.3.579.2.73 2 1958 Unknown [id number] 2.16.840.1.486817.3.579.2.73 2 1958 Unknown [id number] 2.16.840.1.565328.3.579.2.73 2 1958 Unknown [id number] 2.16.840.1.485436.3.579.2.73 2 1958 Unknown [id number] 2.16.840.1.281625.3.579.2.73 2 1958 Unknown [id number] 2.16.840.1.469039.3.579.2.73 2 1958 Unknown [id number] 2.16.840.1.026503.3.579.2.73 2 1958 Unknown [id number] 2.16.840.1.566297.3.579.2.73 2 1958 Unknown [id number] 2.16.840.1.911910.3.579.2.73 2 1958 Unknown [id number] 2.16.840.1.436660.3.579.2.73 2 1958 Unknown [id number] 2.16.840.1.730206.3.579.2.73 2 1958 Unknown [id number] 2.16.840.1.014860.3.579.2.73 2 1958 Unknown [id number] 2.16.840.1.927298.3.579.2.73 2 1958 Unknown [id number] 2.16.840.1.971627.3.579.2.73 2 1958 Unknown [id number] 2.16.840.1.466353.3.579.2.73 2 1958 Unknown [id number] 2.16.840.1.107762.3.579.2.12 86 1958 Unknown [id number] 2.16.840.1.691740.3.579.2.12 86 1958 Unknown [id number] 2.16.840.1.797868.3.579.2.12 86 1958 Unknown [id number] 2.16.840.1.946414.3.579.2.12 86 Private Health Insurance [id number] Self-pay [id number] Unknown [id number] Unknown HCAP/HFA/FAP Active [id number] Unknown HCAP/HFA/FAP Active [id number] Unknown [id number] 2.16.840.1.351053.3.579.2.53 1 Social History Date Type Detail Facility Tobacco smoking stat [facility] Unknown if ever smoked [facility] Start: 1960 Sex Assigned At Female [facility] Tobacco smoking stat [facility] Tobacco smoking consumption unknown [facility] Start: 1960 Sex Assigned At Not on file [facility] Start: 07-15-2021 End: 08-25-2022 Tobacco smoking status WIIS Smokes tobacco daily [facility] Start: 04-09-1993 History of tobacco use Cigarette Smoker [facility] Start: 10-12-2022 End: 03-18-2024 Sex Assigned At [facility] Start: 04-09-1993 End: 01-11-2022 Tobacco smoking status NHIS Smoker (finding) [facility] Tobacco smoking status No Smokin g Status Entered [facility] Start: 08-25-2022 End: 03-18-2024 Cigarettes smoked current (pack per day) - Reported 0.5 [facility] Work Phone: Start: 08-25-2022 End: 07-11-2024 Tobacco use and exposure Smokeless tobacco non-user [facility] Start: 08-29-2022 End: 03-18-2024 Alcohol intake Current drinker of alcohol (finding) [facility] Within the last year , have you been afraid of your partner or ex-partner? No [facility] Work Phone: How often do you get together with friends or relatives? Patient declined [facility] Do you belong to any clubs or organizations such as sabianism groups, [employer], [employer] or athletic groups, or school groups? Yes [...] days [OSQ] Rather much [facility] (I/We) worried whemalathi er (my/our) food would run out before (I/we) got money to buy more. Often true [facility] The food that (I/we) bought just didn't last, and (I/we) didn't have money to get more. Sometimes true [facility] Start: 10-12-2022 Education 15 [facility] Start: 08-09-2023 End: 10-18-2023 Tobacco smoking status NHIS Ex-smoker [facility] Start: 08-09-2023 Alcohol Comment occassionally [facility] Start: 11-10-2014 Sex Female (finding) [facility] How often to you hav e a drink containing alcohol? 2-3 time sa week [facility] How many standard dr inks containing alcohol do you have on a typical day? 3 or 4 [facility] How often do you hav e 6 or more drinks on 1 occasion? Never [facility] Goals Date Patient Goal Desired Activity /State Clinical Notes 07-06-2021 to 05-06-2024 Telephone Encounter - Shira Johnson CMA - 05/06/2024 9:36 AM ESTTelephone Encounter - Shira Johnson CMA - 05/06/2024 9:36 AM ESTTelephone Encounter - Shira Johnson CMA - 04/15/2024 10:24 AM EST Note Date & Type Note Facility 05-06-2024 Miscellaneous Notes Made 3 attempts to contact patient for new patient appointment with Vascular with no success. Patient also no showed 2 visits 05/06/24-LVM to cb to schedule appt 04/15/24-LVM to cb to schedule appt 03/25/24 LVM to cb to schedule appt 03/18/24 LVM to cb to schedule appt documented in this encounter [facility] 05-06-2024 Telephone encounter Note Made 3 attempts to contact patient for new patient appointment with Vascular with no success. Patient also no showed 2 visits 05/06/24-LVM to cb to schedule appt 04/15/24-LVM to cb to schedule appt 03/25/24 LVM to cb to schedule appt 03/18/24 LVM to cb to [facility] 04-15-2024 Miscellaneous Notes Made 3 attempts to contact patient for new patient appointment with Vascular with no success. 04/15/24-LVM to cb to schedule appt 03/25/24 LVM to cb to schedule appt 03/18/24 LVM to cb to schedule appt documented in this encounter [facility] 04-15-2024 Telephone encounter Note Made 3 attempts to contact patient for new patient appointment with Vascular with no success. 04/15/24-LVM to cb to schedule appt 03/25/24 LVM to cb to schedule appt 03/18/24 LVM to cb to schedule appt [facility] 03-18-2024 History of Present illness Narrative Subjective Amber Maldonado is a 63 y.o. female who presents for a Welcome to Medicare visit. The following portions of the patient's history were reviewed and updated as appropriate: Health Risk Assessment, allergies, past medical history, past surgical history, social history, family history, and immunization history Vitals: Vitals: 03/18/24 1311 BP: 100/70 Pulse: 95 Resp: 18 Temp: 36.6 C (97.8 F) SpO2: 97% Body mass index is 20.82 kg/m . History: Patient Active Problem List Diagnosis Date Noted Multiple joint pain 10/30/2023 Anxiety History of pulmonary embolism 08/09/2023 Depression 08/09/2023 Hypokalemia 08/09/2023 GERD (gastroesophageal reflux disease) Anemia due to chemotherapy 01/25/2023 Past Medical History: Diagnosis Date Anxiety Arthritis Cancer ([facility]) Depression GERD (gastroesophageal reflux disease) Pneumonia Visual impairment Past Surgical History: Procedure Laterality Date APPENDECTOMY COLONOSCOPY Family History Problem Relation Age of Onset COPD Mother 71 Emphysema Mother COPD Father Lung cancer Father at age 84 Colon cancer Father Thyroid disease Sister COPD Sister Breast cancer Sister Hypertension Sister Thyroid disease Sister No Known Problems Sister Depression Sister OD on street drugs-cocaine, EtOH and MJ with antidepressants Hypertension Brother Heart attack Brother No Known Problems Son No Known Problems Son No Known Problems Granddaughter Social History Tobacco Use Smoking status: Former Average packs/day: 1 pack/day for 29.0 years (29.0 ttl pk-yrs) Types: Cigarettes Start date: 1993 Smokeless tobacco: Never Substance Use Topics Alcohol use: Yes Comment: occassionally Allergies: No Known Allergies Current Outpatient Medications Medication Sig Dispense Refill busPIRone (BUSPAR) 5 mg tablet 1 tablet 2 TIMES DAILY (route: oral) famotidine (PEPCID) 20 mg tablet Take 1 tablet (20 mg total) by mouth 2 (two) times a day as needed for heartburn. 60 tablet 2 hydrOXYzine (VISTARIL) 25 mg capsule Take 1 capsule (25 mg total) by mouth nightly as needed for itching. 30 capsule 5 ibuprofen (MOTRIN) 400 mg tablet every 8 (eight) hours. LORazepam (ATIVAN) 0.5 mg tablet Take 1 tablet (0.5 mg total) by mouth every 6 (six) hours as needed for anxiety. 30 tablet 1 midodrine (PROAMATINE) 10 mg tablet TAKE 1 TABLET BY MOUTH TWICE A DAY FOR HYPOTENSION sertraline (ZOLOFT) 50 mg tablet TAKE 1 AND 1/2 TABLETS BY MOUTH IN THE MORNING 135 tablet 1 potassium chloride (K-TAB,KLOR-CON) 10 MEQ CR tablet Take 1 tablet (10 mEq total) by mouth in the morning. (Patient not taking: Reported on 03/18/2024) No current facility-administered medications for this visit. Immunization History Administered Date(s) Administered COVID-19, mRNA, LNP-S, PF, 30mcg/0.3mL Dose 07/23/2020, 08/09/2020 Td (adult), 5 Lf tetanus toxoid, preservative free, adsorbed 10/20/2013 Functional Ability/Safety Screening 1. Was the patient's timed Get Up & Go test unsteady or longer than 30 seconds? No 2. Does the patient need help with the phone, transportation, shopping, preparing meals, housework, laundry, medications or managing money? No 3. Does the patient's home have rugs in the hallway, lack grab bars in the bathroom, lack handrails on the stairs or have poor lighting? No 4. Have you noticed any hearing difficulties? No Hearing and/or Vision Screening: No results found. Cognitive Screening; Clock Drawing Test: Normal Advanced Directives: Living Will: Yes DPA for Health Care: Yes Review of Systems: Review of Systems Constitutional: Negative. HENT: Positive for hearing loss. Eyes: Negative. Respiratory: Negative. Objective Physical Exam Vitals reviewed. Exam conducted with a director [employer] present (Nikky Bentley MS III). Constitutional: General: She is not in acute distress. Appearance: Normal appearance. She is normal weight. She is not ill-appearing. HENT: Head: Normocephalic. Right Ear: Tympanic membrane, ear canal and external ear normal. Left Ear: Tympanic membrane, ear canal and external ear normal. Nose: Nose normal. Mouth/Throat: Lips: [place]. Mouth: Mucous membranes are moist. Pharynx: Oropharynx is clear. Uvula midline. Eyes: General: No scleral icterus. Extraocular Movements: Extraocular movements intact. Conjunctiva/sclera: Conjunctivae normal. Neck: Thyroid: No thyromegaly or thyroid tenderness. Vascular: No carotid bruit. Cardiovascular: Rate and Rhythm: Normal rate and regular rhythm. Heart sounds: Normal heart sounds. No murmur heard. Pulmonary: Effort: Pulmonary effort is normal. No respiratory distress. Breath sounds: No wheezing, rhonchi or rales. Abdominal: General: Bowel sounds are normal. There is no distension. Palpations: Abdomen is soft. There is no mass. Tenderness: There is no abdominal tenderness. There is no right CVA tenderness, left CVA tenderness, guarding or rebound. Hernia: No hernia is present. Musculoskeletal: Cervical back: Neck supple. Right lower leg: No edema. Left lower leg: No edema. Lymphadenopathy: Cervical: No cervical adenopathy. Skin: General: Skin is warm and dry. Findings: No lesion. Neurological: General: No focal deficit present. Mental Status: She is alert and oriented to person, place, and time. Cranial Nerves: Cranial nerves 2-12 are intact. Psychiatric: Attention and Perception: Attention and perception normal. Mood and Affect: Mood and affect normal. Speech: Speech normal. Behavior: Behavior normal. Behavior is cooperative. Thought Content: Thought content normal. Cognition and Memory: Cognition and memory normal. Judgment: Judgment normal. Assessment/Plan Encounter Diagnoses Name Primary? Welcome to Medicare preventive visit Yes Need for immunization against influenza Screening for depression Anxiety Screening for heart disease Seizure [place] Thoracic aortic aneurysm without rupture, unspecified part ([facility] Depression, unspecified depression type Gastroesophageal reflux disease, unspecified whether esophagitis present Health maintenance discussed. Depression screen showed mild depression. She is already on sertraline. She would like to stay on current dose. At least 3 minute spent administering and discussing. Cognitive evaluation did not reveal any impairment. She agrees to flu vaccine. Recommended shingles vaccine at the pharmacy. She has a history of seizures. She does have tremors like she used to get with the seizures. They are not grand mal seizures for part for seizures. She used to take Depakote. She would like to restart it. We will refer her to Neurology for further care. She is using lorazepam about once a day. She is not having any side effects. She is using high risk medication with benefit. Does help improve her ADLs. The OARRS/MAPPS database was reviewed today and found to be appropriate. No indication of medication diversion, or non compliance. She has not heard. She is doing well on famotidine p.r.n.. Her PET scan was reviewed and it showed an enlarging thoracic aortic aneurysm. Radiology recommended a vascular consult. She is asymptomatic. She agrees to the consult. documented in this encounter [facility] 02-29-2024 Miscellaneous Notes Pt requesting refill on [facility]azepam. [facility] documented in this encounter [facility] 02-29-2024 Telephone encounter Note Pt requesting refill on [facility]azepam. [facility] 10-30-2023 History of Present illness Narrative Subjective Patient ID: Amber Maldonado is a 62 y.o. female. ADA is here for a recheck. She had her colonoscopy and biopsy of an anal polyp and it was benign. Follow-up Associated symptoms include arthralgias (hands and thumb mostly). The following portions of the patient's history were reviewed and updated as appropriate: allergies, current medications, past family history, past medical history, past social history, past surgical history, problem list, and medication reconciliation was completed including current medication and post discharge medication. Review of Systems Musculoskeletal: Positive for arthralgias (hands and thumb mostly). Objective Physical Exam Vitals reviewed. Constitutional: General: She is not in acute distress. Appearance: She is underweight. HENT: Head: Normocephalic. Eyes: General: No scleral icterus. Extraocular Movements: Extraocular movements intact. Conjunctiva/sclera: Conjunctivae normal. Cardiovascular: Rate and Rhythm: Normal rate and regular rhythm. Pulses: Normal pulses. Heart sounds: Normal heart sounds. No murmur heard. Pulmonary: Effort: Pulmonary effort is normal. No respiratory distress. Breath sounds: Normal breath sounds. No wheezing, rhonchi or rales. Musculoskeletal: General: Tenderness and deformity (Heberden's and Yvan's nodules on multiple digits bilaterally; positive grind test on left thumb) present. Cervical back: Neck supple. Right lower leg: No edema. Left lower leg: No edema. Neurological: General: No focal deficit present. Mental Status: She is alert and oriented to person, place, and time. Psychiatric: Attention and Perception: Attention normal. Mood and Affect: Mood normal. Speech: Speech normal. Behavior: Behavior normal. Behavior is cooperative. Thought Content: Thought content normal. Cognition and Memory: Cognition normal. Judgment: Judgment normal. Assessment/Plan Aleah was seen today for follow-up. Diagnoses and all orders for this visit: Encounter for screening mammogram for malignant neoplasm of breast - Cancel: Mammography screening bilateral with CAD; Future - Mammography screening bilateral with CAD; Future Check mammogram to screen for breast cancer. She would pursue further evaluation and treatment if needed. Gastroesophageal reflux disease, unspecified whether esophagitis present She says she does not take the pantoprazole so I am going to remove that from the med list. He is taking famotidine twice a day. She is not having any heartburn. I recommended she cut it back to once a day at bedtime if she can and even then use it 1 every 12 hours as needed. Anemia due to chemotherapy He has an appointment coming up with Oncology and will have it check then. Depression, unspecified depression type Stable. Continue current regimen. Hypokalemia She said she had labs done at [facility] just recently but I do not have those. We will try to track those records down. Anxiety We discussed hydroxyzine and lorazepam. She is using both at bedtime with benefit. It helps her sleep. She is using high risk medication with benefit. Other orders - famotidine (PEPCID) 20 mg tablet; Take 1 tablet (20 mg total) by mouth 2 (two) times a day as needed for heartburn. Multiple joint pain Recommended to use hocl-anv-[id number] medications such as Tylenol or ibuprofen if she can tolerate it. Also topical agents are a good alternative. documented in this encounter [facility] [facility] 10-29-2023 Miscellaneous Notes ----- Message from Dr. Chey Infante, sent at 10/29/2023 12:12 PM EDT ----- Please call patient and let her know that her pathology reports are benign. ThanksDr. Pappas Spoke with patient regarding pathology results. Patient verbally understood with no further questions. documented in this encounter [facility] 10-29-2023 Telephone encounter Note ----- Message from Dr. Chey Infante DO sent at 10/29/2023 12:12 PM EDT ----- Please call patient and let her know that her pathology reports are benign. Thanks, Dr. Pappas [facility] 10-29-2023 Telephone encounter Note Spoke with patient regarding pathology results. Patient verbally understood with no further questions. [facility] 10-18-2023 History of Present illness Narrative Images from the original note were not included. [facility] [address] [id number] CONSULT NOTE CHIEF COMPLAINT Rectal bleeding/history of anal carcinoma referred by Oncology at the [facility] Amber Maldonado is a 62 y.o. female who presents for evaluation as referred by her medical oncologist(Dr. Lowery) at the [facility] who called asking to do a colonoscopy and a biopsy of anal mass. Patient has a known history of anal carcinoma diagnosed at [facility] 2 years ago but this was recurrence it was initially diagnosed as carcinoma in Situ 10 years ago when she lived in [place] and underwent chemo cream and then laser to the area. Since that time she has had chemo and radiation for 6 weeks last time she had radiation was November of 2022 but her sphincters feels like it is on fire and is sore all the time. Her last colonoscopy was 6-7 years ago in [place]. She was also found to be anemic. This is believed to be secondary to her chemotherapy. She had a prior diverticular resection performed about 7 years ago in [place]. MEDICATION Current Outpatient Medications: busPIRone (BUSPAR) 5 mg tablet, 1 tablet 2 TIMES DAILY (route: oral), Disp: , Rfl: famotidine (PEPCID) 20 mg tablet, TAKE 1 TABLET BY MOUTH 2 TIMES DAILY FOR GERD, Disp: , Rfl: hydrOXYzine (VISTARIL) 25 mg capsule, TAKE 1 CAPSULE BY MOUTH EVERYDAY AT BEDTIME NEEDED FOR INSOMNIA, Disp: , Rfl: ibuprofen (MOTRIN) 400 mg tablet, every 8 (eight) hours., Disp: , Rfl: lidocaine (XYLOCAINE) 5 % ointment, Apply topically., Disp: , Rfl: LORazepam (ATIVAN) 0.5 mg tablet, TAKE 1 TABLET BY MOUTH EVERY 6 HOURS NEEDED FOR ANXIETY., Disp: 30 tablet, Rfl: 1 midodrine (PROAMATINE) 10 mg tablet, TAKE 1 TABLET BY MOUTH TWICE A DAY FOR HYPOTENSION, Disp: , Rfl: pantoprazole (PROTONIX) 20 mg EC tablet, 20 mg NEEDED DAILY (route: oral), Disp: , Rfl: potassium chloride (K-TAB,KLOR-CON) 10 MEQ CR tablet, Take 1 tablet (10 mEq total) by mouth in the morning., Disp: , Rfl: sertraline (ZOLOFT) 50 mg tablet, Take 1.5 tablets (75 mg total) by mouth in the morning., Disp: 45 tablet, Rfl: 2 silver sulfADIAZINE (SILVADENE, SSD) 1 % cream, Per instructions 2 TIMES DAILY (route: topical) (Patient not taking: Reported on 10/18/2023), Disp: , Rfl: ALLERGY No Known Allergies MEDICAL HISTORY Past Medical History: Diagnosis Date Anxiety Arthritis Cancer (CMS-HCC) Depression GERD (gastroesophageal reflux disease) Pneumonia Visual impairment SURGICAL HISTORY Past Surgical History: Procedure Laterality Date APPENDECTOMY COLONOSCOPY SOCIAL HISTORY Social History Socioeconomic History Marital status: Spouse name: Not on file Number of children: Not on file Years of education: Not on file Highest education level: Not on file Occupational History Not on file Tobacco Use Smoking status: Former Average packs/day: 1 pack/day for 29.0 years (29.0 ttl pk-yrs) Types: Cigarettes Start date: 1993 Smokeless tobacco: Never Vaping Use Vaping status: Never Used Substance and Sexual Activity Alcohol use: Yes Comment: occassionally Drug use: Never Sexual activity: Not Currently Partners: Male Other Topics Concern Not on file Social History Narrative Not on file Social Determinants of Health Financial Resource Strain: High Risk (10/12/2022) Received from [facility] Overall Financial Resource Strain (CARDIA) Difficulty of Paying Living Expenses: Very hard Food Insecurity: No Food Insecurity (10/18/2023) Hunger Screening Food Insecurity - Worry: Never True Food Insecurity - Inability: Never True Transportation Needs: No Transportation Needs (10/12/2022) Received from [facility] PRAPARE - Transportation Lack of Transportation (Medical): No Lack of Transportation (Non-Medical): No Physical Activity: Insufficiently Active (10/12/2022) Received from [facility] Exercise Vital Sign Days of Exercise per Week: 4 days Minutes of Exercise per Session: 10 min Stress: Stress Concern Present (10/12/2022) Received from [facility] [employer] [place] [employer] - Occupational Stress Questionnaire Feeling of Stress : Rather much Social Connections: Unknown (10/12/2022) Received from [facility] Social Connection and Isolation Panel [NHANES] Frequency of Communication with Friends and Family: Three times a week Frequency of Social Gatherings with Friends and Family: Patient declined Attends Yazdanism Services: Patient declined Active Member of Clubs or Organizations: Yes Attends Club or Organization Meetings: More than 4 times per year Marital Status: Living with partner Interpersonal Safety: Not At Risk (10/12/2022) Received from [facility] Humiliation, Afraid, Rape, and Kick questionnaire Fear of Current or Ex-Partner: No Emotionally Abused: No Physically Abused: No Sexually Abused: No Housing Instability: High Risk (10/12/2022) Received from [facility] Housing Stability Vital Sign Unable to Pay for Housing in the Last Year: Yes Number of Places Lived in the Last Year: 1 Unstable Housing in the Last Year: No FAMILY HISTORY Family History Problem Relation Age of Onset COPD Mother Emphysema Mother COPD Father Lung cancer Father Colon cancer Father Thyroid disease Sister COPD Sister Breast cancer Sister Hypertension Sister Thyroid disease Sister No Known Problems Sister Depression Sister Hypertension Brother Heart attack Brother REVIEW OF SYSTEMS: Constitutional: Denies fevers, denies recent illnesses. Eyes: Denies any vision changes. ENT: Denies any throat pain. Neck: Denies any neck pain. Cardiovascular denies chest pain. Denies palpitations. Respiratory: Reports shortness of breath due to humid weather. Denies cough, denies history of asthma or any other pulmonary illnesses. Gastrointestinal: See chief complaint Genitourinary negative for dysuria hematuria urinary frequency or urgency. Musculoskeletal: Negative for extremity pains or joint discomfort. Neurologic: No change in sensation or paresthesias or history of seizure disorder skin: No rashes. Hematologic: No anemia. No purpura. No petechiae and no prolonged or excessive bleeding Allergic and immunologic: No pruritus. No swelling. Endocrine: No unexplained weight loss. No polydipsia. No polyuria. No polyphagia. PHYSICAL EXAM Constitutional: She is oriented to person, place, and time. Vital signs are normal. She appears well-developed and well-nourished. HEENT: Head: Normocephalic and atraumatic. Eyes: Conjunctivae, EOM and lids are normal. Neck: Trachea normal. Neck supple. No thyroid mass present. Cardiovascular: Normal rate and regular rhythm. Pulmonary/Chest: Effort normal and breath sounds normal. Abdominal: Soft. Normal appearance. She exhibits no distension and no mass. Musculoskeletal: Normal range of motion. Lymphadenopathy: She has no cervical adenopathy. Neurological: She is alert and oriented to person, place, and time. Skin: Skin is warm, dry and intact. Psychiatric: She has a normal mood and affect. Her speech is normal and behavior is normal. Cognition and memory are normal. IMPRESSION 1. History of anal carcinoma status post radiation chemotherapy from November 2022 2. Anemia from chemotherapy? 3. History of colon resection for diverticular disease 7 years ago in [place] ASSESSMENT & PLAN Colonoscopy with possible biopsy or polypectomy. I discussed the risks, benefits, alternatives to the above which may include perforation or bleeding or risks of anesthesia. They understood all the above and wished to proceed. 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 While intending to generate a timely document that accurately reflects the content of the visit, no guarantee can be provided that every grammatical or spelling mistake has been or will be identified or corrected. Thank you for your understanding. AYANNA Goodwin 10/18/23 1233 documented in this encounter [employer] 08-29-2023 History of Present illness Narrative Images from the original note were not included. [facility] [facility] [id number] CONSULT NOTE CHIEF COMPLAINT Rectal bleeding/history of anal carcinoma referred by Oncology at the [facility] Amber Maldonado is a 62 y.o. female who presents for evaluation as referred by her medical oncologist(Dr. Lowery) at the [facility] who called me last week asking if I would do a colonoscopy and a biopsy of anal mass. Patient has a known history of anal carcinoma diagnosed at [facility] 2 years ago but this was recurrence it was initially diagnosed as carcinoma in Situ 10 years ago when she lived in [place] and underwent chemo cream and then laser to the area. Since that time she has had chemo and radiation for 6 weeks last time she had radiation was November of 2022 but her sphincters feels like it is on fire and is sore all the time. Her last colonoscopy was 6-7 years ago in [place]. She was also found to be anemic. This is believed to be secondary to her chemotherapy. She had a prior diverticular resection performed about 7 years ago in [place]. MEDICATION Current Outpatient Medications: busPIRone (BUSPAR) 5 mg tablet, 1 tablet 2 TIMES DAILY (route: oral), Disp: , Rfl: famotidine (PEPCID) 20 mg tablet, TAKE 1 TABLET BY MOUTH 2 TIMES DAILY FOR GERD, Disp: , Rfl: hydrOXYzine (VISTARIL) 25 mg capsule, 1 capsule NEEDED AT BEDTIME (route: oral), Disp: , Rfl: hydrOXYzine (VISTARIL) 25 mg capsule, TAKE 1 CAPSULE BY MOUTH EVERYDAY AT BEDTIME NEEDED FOR INSOMNIA, Disp: , Rfl: ibuprofen (MOTRIN) 400 mg tablet, every 8 (eight) hours., Disp: , Rfl: lidocaine (XYLOCAINE) 5 % ointment, Apply topically., Disp: , Rfl: lidocaine-prilocaine (EMLA) cream, APPLY THIN LAYER TO AFFECTED AREA DIRECTED, Disp: , Rfl: LORazepam (ATIVAN) 0.5 mg tablet, 1 tablet NEEDED EVERY 4 HOURS (route: oral), Disp: , Rfl: midodrine (PROAMATINE) 10 mg tablet, TAKE 1 TABLET BY MOUTH TWICE A DAY FOR HYPOTENSION, Disp: , Rfl: pantoprazole (PROTONIX) 20 mg EC tablet, 20 mg NEEDED DAILY (route: oral), Disp: , Rfl: potassium chloride (K-TAB,KLOR-CON) 10 MEQ CR tablet, Take 1 tablet (10 mEq total) by mouth in the morning., Disp: , Rfl: sertraline (ZOLOFT) 50 mg tablet, Take 1.5 tablets (75 mg total) by mouth in the morning., Disp: , Rfl: silver sulfADIAZINE (SILVADENE, SSD) 1 % cream, Per instructions 2 TIMES DAILY (route: topical), Disp: , Rfl: peg 3350-sod sulf,[id number]-xdz 178.7-7.3-0.5 gram recon soln, Take 1 kit by mouth once daily for 1 dose. Please see instructional sheet given by physicians office., Disp: 1 each, Rfl: 0 ALLERGY No Known Allergies MEDICAL HISTORY Past Medical History: Diagnosis Date Anxiety Arthritis Cancer (CMS-HCC) Depression GERD (gastroesophageal reflux disease) Pneumonia Visual impairment SURGICAL HISTORY Past Surgical History: Procedure Laterality Date APPENDECTOMY COLONOSCOPY SOCIAL HISTORY Social History Socioeconomic History Marital status: Spouse name: Not on file Number of children: Not on file Years of education: Not on file Highest education level: Not on file Occupational History Not on file Tobacco Use Smoking status: Former Types: Cigarettes Smokeless tobacco: Never Vaping Use Vaping status: Never Used Substance and Sexual Activity Alcohol use: Yes Comment: occassionally Drug use: Never Sexual activity: Not Currently Partners: Male Other Topics Concern Not on file Social History Narrative Not on file Social Determinants of Health Financial Resource Strain: High Risk (10/12/2022) Received from [facility] Overall Financial Resource Strain (CARDIA) Difficulty of Paying Living Expenses: Very hard Food Insecurity: No Food Insecurity (08/09/2023) Hunger Screening Food Insecurity - Worry: Never True Food Insecurity - Inability: Never True Transportation Needs: No Transportation Needs (10/12/2022) Received from [facility] PRAPARE - Transportation Lack of Transportation (Medical): No Lack of Transportation (Non-Medical): No Physical Activity: Insufficiently Active (10/12/2022) Received from [facility] Exercise Vital Sign Days of Exercise per Week: 4 days Minutes of Exercise per Session: 10 min Stress: Stress Concern Present (10/12/2022) Received from [facility] [employer] [place] [employer] - Occupational Stress Questionnaire Feeling of Stress : Rather much Social Connections: Unknown (10/12/2022) Received from [facility] Social Connection and Isolation Panel [NHANES] Frequency of Communication with Friends and Family: Three times a week Frequency of Social Gatherings with Friends and Family: Patient declined Attends Yazdanism Services: Patient declined Active Member of Clubs or Organizations: Yes Attends Club or Organization Meetings: More than 4 times per year Marital Status: Living with partner Interpersonal Safety: Not At Risk (10/12/2022) Received from [facility] Humiliation, Afraid, Rape, and Kick questionnaire Fear of Current or Ex-Partner: No Emotionally Abused: No Physically Abused: No Sexually Abused: No Housing Instability: High Risk (10/12/2022) Received from [facility] Housing Stability Vital Sign Unable to Pay for Housing in the Last Year: Yes Number of Places Lived in the Last Year: 1 Unstable Housing in the Last Year: No FAMILY HISTORY History reviewed. No pertinent family history. REVIEW OF SYSTEMS: Constitutional: Denies fevers, denies recent illnesses. Eyes: Denies any vision changes. ENT: Denies any throat pain. Neck: Denies any neck pain. Cardiovascular denies chest pain. Denies palpitations. Respiratory: Denies shortness of breath, denies cough, denies history of asthma or any other pulmonary illnesses. Gastrointestinal: See chief complaint Genitourinary negative for dysuria hematuria urinary frequency or urgency. Musculoskeletal: Negative for extremity pains or joint discomfort. Neurologic: No change in sensation or paresthesias or history of seizure disorder skin: No rashes. Hematologic: No anemia. No purpura. No petechiae and no prolonged or excessive bleeding Allergic and immunologic: No pruritus. No swelling. Endocrine: No unexplained weight loss. No polydipsia. No polyuria. No polyphagia. PHYSICAL EXAM Constitutional: She is oriented to person, place, and time. Vital signs are normal. She appears well-developed and well-nourished. HEENT: Head: Normocephalic and atraumatic. Eyes: Conjunctivae, EOM and lids are normal. Neck: Trachea normal. Neck supple. No thyroid mass present. Cardiovascular: Normal rate and regular rhythm. Pulmonary/Chest: Effort normal and breath sounds normal. Abdominal: Soft. Normal appearance. She exhibits no distension and no mass. There is no hepatosplenomegaly or splenomegaly. There is negative Bro's sign. No hernia. Healed midline lower abdominal wall incision. Rectal exam: Shop Firer/Fireman present;. External skin surrounding the anus appears slightly reddened from radiation therapy sphincter tone is normal with gloved index finger and lubricant with minimal stenosis. No rectal masses appreciated. Musculoskeletal: Normal range of motion. Lymphadenopathy: She has no cervical adenopathy. Neurological: She is alert and oriented to person, place, and time. Skin: Skin is warm, dry and intact. Psychiatric: She has a normal mood and affect. Her speech is normal and behavior is normal. Cognition and memory are normal. IMPRESSION 1. History of anal carcinoma status post radiation chemotherapy from November 2022 2. Anemia from chemotherapy? 3. History of colon resection for diverticular disease 7 years ago in [place] ASSESSMENT & PLAN Colonoscopy with possible biopsy or polypectomy. I discussed the risks, benefits, alternatives to the above which may include perforation or bleeding or risks of anesthesia. They understood all the above and wished to proceed. I recommended she call her radiation oncologist at [facility] [place] in [place] to ask about a cream for burning sensation around the radiated area of the anus. She told me she would do so. 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 While intending to generate a timely document that accurately reflects the content of the visit, no guarantee can be provided that every grammatical or spelling mistake has been or will be identified or corrected. Thank you for your understanding. documented in this encounter [facility] 08-21-2023 Miscellaneous Notes Called Amber regarding the anal biopsy referral that our office received from [facility], I left a message on voicemail to call the office back to schedule an appointment. Amber called back and we scheduled her an appointment on 08/29/2023. documented in this encounter [facility] 08-21-2023 Telephone encounter Note Called Amber regarding the anal biopsy referral that our office received from [facility], I left a message on voicemail to call the office back to schedule an appointment. [facility] 08-21-2023 Telephone encounter Note Amber called back and we scheduled her an appointment on 08/29/2023. [facility] 02-08-2023 History of Present illness Narrative Specialty [...] or provider at any time. Thank you, Gabe SpiveyD. Clinical Oncology Specialty Pharmacist [phone] [id number] documented in this encounter [facility] 01-23-2023 Telephone encounter Note Spoke with Dr. Darcy Ellis from [facility] where patient was admitted with sepsis from PNA and pulmonary emboli. Will be discharged today or tomorrow on eliquis and levaquin. Will cancel our f/u tomorrow and reschedule with her in 1-[address] Ellis will relay the message. Lara Smith MD [facility] 01-23-2023 Miscellaneous Notes Spoke with Dr. Darcy Ellis from [facility] where patient was admitted with sepsis from PNA and pulmonary emboli. Will be discharged today or tomorrow on eliquis and levaquin. Will cancel our f/u tomorrow and reschedule with her in 1-[address] Ellis will relay the message. Lara Smith MD documented in this encounter [facility] 01-23-[address] Ellis returning providers call requesting a call back. Can be reached at [phone]. [facility] 01-23-[address] Ellis returning providers call requesting a call back. Can be reached at [phone]. Dr. Darcy Ellis with [facility] calling requesting a return call regarding mutual patient. Patient is currently inpatient at [place] and Dr. Ellis would like to update Dr. Smith. Can be reached at [phone]. Thank you. documented in this encounter [facility] 01-22-[address] Darcy Ellis with [facility] calling requesting a return call regarding mutual patient. Patient is currently inpatient at [place] and Dr. Ellis would like to update Dr. Smith. Can be reached at [phone]. Thank you. [facility] 12-29-2022 History of Present illness Narrative This encounter was opened in error. Patient was a No-Show. Please disregard. Called patient x2. No answer, unable to leave VM as VM box is full. documented in this encounter [facility] 12-19-2022 History of Present illness Narrative Pt called x2. Voicemail left x2. This encounter was opened in error. Patient was a No-Show. Please disregard. documented in this encounter [facility] 12-07-2022 History of Present illness Narrative Patient was identified by name and date of . Jessika Acosta RN Patient at risk for falls:No Falls Risk protocol implemented: N/A Anal cancer (HCC) [951002] Pt presented to clinic for IVF. PIV placed to LFA on 2nd attempt using 22G angiocath, positive blood return noted. 1L NS bolus administered per orders. Pall care NURSE STAFF INDUSTRIAL chairside during infusion. PIV removed, no s/s infiltrate or extravasation. Patient verbalized follow-up instructions and discharged to home in stable condition. Jessika Acosta RN documented in this encounter [facility] 12-07-2022 History of Present illness Narrative Patient [...] topical cream. 2cm into posterior canal, 5cm kevin-anal skin extension. PRIOR TREATMENT: 54 Gy in [...] 07/15/2021 Added automatically from request for surgery [id number] Vitamin D deficiency 12/19/2011 PAST SURGICAL HISTORY: [...] by mouth 2 times daily. 12/04/22 Dana Ordonez, MAMMOGRAPHY TECH-PSYCHOLOGIST [facility] sertraline (ZOLOFT) 50 MG tablet Take 1 Tablet by mouth daily. 12/01/22 12/31/22 Dana Ordonez APRN-PSYCHOLOGIST [facility] oxyCODONE 5 MG immediate release tablet Take 1 Tablet by mouth every 6 hours as needed for Pain for up to 7 days. 12/01/22 12/08/22 Dana Ordonez APRN-PSYCHOLOGIST [facility] prochlorperazine (COMPAZINE) 10 MG tablet Take 1 Tablet by mouth every 6 hours as needed for Nausea for up to 14 days. 11/23/22 12/08/22 Dana Ordonez APRN-PSYCHOLOGIST [facility] lidocaine (XYLOCAINE) 5 % ointment Apply topically [...] 4 mg/0.1 mL nasal liquid Use 1 [place] in one nostril (alternate sides) as needed [...] mouth 2 times daily. 10/16/22 Ky Vegas APRN-BRIEN ondansetron (ZOFRAN-ODT) 8 MG disintegrating tablet Take [...] of this patient. 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 The patient has progressed through prior treatment with topical cream. 2cm into posterior canal, 5cm kevin-anal skin extension. Treatment Dates: 10/16/22 - 11/29/22 [...] MD PhD Director, Board Certified Radiation Oncologist [facility] Radiation Oncology [address] [facility] documented in this encounter [facility] 12-04-2022 History of Present illness Narrative RADIATION TREATMENT (COMPLETION) SUMMARY DATE OF VISIT: 12/04/22 Patient Name: Amber Maldonado Date of : 1960 Diagnosis: T3N0M0 well-differentiated focally invasive G1 SCCa of the canal with extensive perianal skin involvement. The patient has progressed through prior treatment with topical cream. 2cm into posterior canal, 5cm kevin-anal skin extension. Treatment Dates: 10/16/22 - 11/29/22 [...] MD PhD Director, Board Certified Radiation Oncologist [facility] Radiation Oncology [address] [place] [address] documented in this encounter [facility] 12-01-2022 History of Present illness Narrative Images [...] / SUPPORT SYSTEM: [facility] children 38 year old - [place] (first grandchild due in 4 weeks -- will be girl) 36 year old lives in [place] --- Deven and Boris Cueva Pat - sister - coming to stay for a bit Advanced Directives: Code status - FULL CODE Living will/DPOA-HC - Lener - primary \OARRS was reviewed today. Additional [...] [facility] policy) No 5. Consider consult to vocational services specialist. Referral to addiction medicine specialist is [...] 07/15/2021 Added automatically from request for surgery [id number] Vitamin D deficiency 12/19/2011 Surgical Review of [...] 10 min Stress: Stress Concern Present (10/12/2022) [employer] - Occupational Stress Questionnaire Feeling of Stress : Rather much Social Connections: Unknown (10/12/2022) Social Connection and Isolation Panel [NHANES] Frequency of Communication with Friends and Family: Three times a week Frequency of Social Gatherings with Friends and Family: Patient refused Attends Yazdanism Services: Patient refused Active Member of Clubs [...] WBC RBC Hgb Hct MCV RDW Plt 08//23 1033 4.1 3.17 11.2 32.8 104 13.9 [...] hospital encounter of 11/13/22 (from the past 29198 hour(s)) HEPATIC FUNCTION PANEL Collection Time: 11/13/22 [...] HCPOA. AYANNA Oropeza documented in this encounter [facility] 11-29-2022 History of Present illness Narrative Amber Maldonado is s/p 30/30 fractions, 5400 cgy. The treatment volume is the pelvis. Her appetite is good, stamina is good. Amber Maldonado has no new complaints or findings. There is no updated laboratory/imaging data Recommend: completing xrt, f/u in 4 weeks documented in this encounter [facility] 11-23-2022 Instructions Dana Ordonez APRN-CNP - 11/23/2022 [...] to control diarrhea documented in this encounter [facility] 11-23-2022 History of Present illness Narrative Images [...] Frost 2 children 38 year old - [place] (first grandchild due in 4 weeks -- will be girl) 36 year old lives in [place] --- Deven and Boris Rosa M - sister - coming to stay for a bit Advanced Directives: Code status - FULL CODE Living will/DPOA- - [place] - primary \OARRS was reviewed today. Additional [...] S policy) No 5. Consider consult to vocational services specialist. Referral to addiction medicine specialist is [...] 07/15/2021 Added automatically from request for surgery [id number] Vitamin D deficiency 12/19/2011 Surgical Review of [...] 10 min Stress: Stress Concern Present (10/12/2022) [employer] - Occupational Stress Questionnaire Feeling of Stress : Rather much Social Connections: Unknown (10/12/2022) Social Connection and Isolation Panel [NHANES] Frequency of Communication with Friends and Family: Three times a week Frequency of Social Gatherings with Friends and Family: Patient refused Attends Yazdanism Services: Patient refused Active Member of Clubs [...] hospital encounter of 11/13/22 (from the past 82242 hour(s)) HEPATIC FUNCTION PANEL Collection Time: 11/13/22 [...] HCPOA. AYANNA Oropeza documented in this encounter [facility] 11-13-2022 History of Present illness Narrative Images [...] 1.27 9.2 Patient arrived to clinic for NURSE STAFF INDUSTRIAL visit, blood test and IVP mitomycin. #22g [...] Alta Emmanuel RN documented in this encounter [facility] 11-13-2022 Hospital Discharge instructions Alta Emmanuel RN - 11/13/2022 12:43 PM EDT Please start taking xeloda 1,000 MG twice daily (decrease from 1,500 mg twice daily) documented in this encounter [facility] 11-03-2022 Telephone encounter Note Patient was identified [...] questions and concerns addressed by this nurse. [facility] 11-03-2022 Miscellaneous Notes Patient was identified by name and date of . Jana Veloz RN Pt discharged from hospital yesterday for neutropenic fever. Radiation held 10/31- d/t low ANC and Platelet count. Plan is for pt to get lab work 11/06 at least an hour before she comes in for radiation therapy. Lab work will be evaluated by Dr Ramos. Pt understands plan and states she is feeling a little better. Discussed neutropenic and bleeding precautions and all questions and concerns addressed by this nurse. documented in this encounter [facility] 11-02-2022 Plan of care note Problem: Routine [...] 1430 by Jacques Child RN Outcome: Progressing [facility] 11-02-2022 Miscellaneous Notes Problem: Routine Care: Goal: [...] neutropenia) Ad[facility] documentation entered by: May Baires [facility], 26th edition, Copyright [address] [facility] All Rights Reserved. [id number] documented in this encounter [facility] 11-02-2022 Note [facility] 11-02-2022 Hospital course Narrative Images from the original note were not included. DISCHARGE SUMMARY [address] [address] Amber Maldonado Date of : 1960 62 [...] Time Provider Department Center 11/02/2022 2:40 PM [facility] 11/03/2022 2:[address] [facility] 11/06/2022 2:[address] [facility] 11/07/2022 2:[address] [facility] 11/08/2022 2:[address] [facility] 11/09/2022 1:30 PM Dana Ordonez, MAMMOGRAPHY TECH-PSYCHOLOGIST [facility] ONC PALLIATI [facility] 11/09/2022 2:[address] [facility] 11/10/2022 2:[address] [facility] 11/13/2022 10:30 AM Ky Vegas APRN-CARGO SUPERVISOR [facility]cMed [facility] 11/13/2022 11:00 [facility] 11/14[facility]22 2:[address] [facility] 11/15/2022 2:[address] [facility] 11/16/2022 2:[address] [facility] 11/17/2022 2:[address] [facility] 11/20/2022 2:[address] [facility] 11/21/2022 2:[address] [facility] 11/22/2022 2:[address] [facility] 11/23/2022 2:[address] [facility] 11/24/2022 2:00 PM [facility] 11/24/2022 2:[address] [facility] 06/15/2023 10:00 AM Florencio Financial Breaker Machine Tender MAMI COLON Condition at Discharge improved Activity [...] BUN Cr Ca Mg PO4 11/01/22 0303 135 4.2 108 17 14 112 14 1.10 8.3 11/01/22 0303 2.8 11/01/22 0303 3.5 10/31/22 1351 1.6 10/31/22 1351 134 4.3 103 22 13 94 17 1.27 9.2 Hepatic/Biliary/Pancreas T Prot Albumin D Bili T Bili Alk Phos ALT AST Amylase Lipase 10/31/22 1351 6.5 4.2 0.16 0.7 87 6 11 Cardiac Troponin I CK total CK-MB BNP 11/01/22 030 63.0 Fingerstick Glucose (last 72 hours) None [...] 4 mg/0.1 mL nasal liquid Use 1 [place] in one nostril (alternate sides) as needed [...] and transfer paperwork. documented in this encounter [facility] 2022 Plan of care note Problem: Routine [...] adult patient will be met Outcome: Progressing [facility] 2022 Consult note Associated Order (s): NUTRITION [...] RBC Hgb Hct MCV RDW Plt 11/01/22 030 0.8 3.15 11.1 32.7 104 13.3 36 10/31/22 1351 1.0 3.48 12.1 35.7 103 13.3 41 10/03/22 1158 6.5 4.40 15.5 45.7 104 14.0 149 Basic Metabolic Panel Na K Cl CO2 Gap Glu BUN Cr Ca Mg PO4 11/01/22302 135 4.2 108 17 14 112 14 1.10 8.3 11/01/22302 2.8 11/01/22302 3.5 10/31/22 1351 1.6 10/31/22 1351 134 [...] % Nutrition Focused Physical Exam: Muscle loss: [place] region: slight depression Clavicle region: not visible/not prominent Scapula region: no depressions Hand: muscle bulges Anterior thigh: well rounded Posterior calf: well developed Fat loss: Orbital region: slightly dark [place]/somewhat hollow look Tricep/bicep region: some depth pinch/not ample Rib/back region: chest full/ribs do not show Edema: none Skin/Nails/Hair: intact, wnl Eyes/Nose/Mouth: RA Bms 10/31 x1 Meds: colace, pepcid, zofran prn, oxycodone prn Current diet order: Regular PO intake 50-75% Est needs: 0093-9299 kcal/d 25-30 kcal/kg (MSJ 1356 kcal) 70-90 [...] folate - supplement low levels Weekly weights NUT 101 referral at discharge - specify oncology RD Alta Butt RD Personal Pager: [phone] On-Call Nutrition Pager: [phone] Dietitian vs DietaryTech: Dietitian and Hereditary Cancer Program Coordinator [employer] Work Phone: 2022 Consult note Associated Order [...] BUN Cr Ca Mg PO4 11/01/22 0303 135 4.2 108 17 14 [...] % Nutrition Focused Physical Exam: Muscle loss: [place] region: slight depression Clavicle region: not visible/not prominent Scapula region: no depressions Hand: muscle bulges Anterior thigh: well rounded Posterior calf: well developed Fat loss: Orbital region: slightly dark [place]/somewhat hollow look Tricep/bicep region: some depth pinch/not ample Rib/back region: chest full/ribs do not show Edema: none Skin/Nails/Hair: intact, wnl Eyes/Nose/Mouth: RA Bms 10/31 x1 Meds: colace, pepcid, zofran prn, oxycodone prn Current diet order: Regular PO intake 50-75% Est needs: 5513-2222 kcal/d 25-30 kcal/kg (MSJ 1356 kcal) 70-90 [...] folate - supplement low levels Weekly weights NUT 101 referral at discharge - specify oncology RD Alta Butt RD Personal Pager: [phone] On-Call Nutrition Pager: [phone] Dietitian vs DietaryTech: Dietitian and Hereditary Cancer Program Coordinator Associated Order(s): IP HEMATOLOGY-ONCOLOGY CONSULT Images [...] 07/15/2021 Added automatically from request for surgery [id number] Vitamin D deficiency 12/19/2011 Past Surgical History [...] Other (DCIS) Sister Social History Lives in [place] with Social History Socioeconomic History Marital status: [...] 10 min Stress: Stress Concern Present (10/12/2022) [employer] - Occupational Stress Questionnaire Feeling of Stress : Rather much Social Connections: Unknown (10/12/2022) Social Connection and Isolation Panel [NHANES] Frequency of Communication with Friends and Family: Three times a week Frequency of Social Gatherings with Friends and Family: Patient refused Attends Yazdanism Services: Patient refused Active Member of Clubs [...] 11/02/2022 11:20 AM documented in this encounter [facility] 2022 History of Present illness Narrative Dr. [...] 07:47 AM Serum creatinine: 1.1 mg/dL 11/01/22 0303 Estimated creatinine clearance: 56.61 mL/min Culture(s): PENDING Autumn Trujillo [facility] - Department of Pharmacy Services Images from [...] Glu BUN Cr Ca Mg PO4 11/01/22 030 2.8 11/01/22 0303 3.5 10/31/22 1351 1.6 10/31/22 1351 134 4.3 103 22 13 94 17 1.27 9.2 Hepatic/Biliary/Pancreas T Prot Albumin D Bili T Bili Alk Phos ALT AST Amylase Lipase 10/31/22 1351 6.5 4.2 0.16 0.7 87 6 11 Cardiac Troponin I CK total CK-MB BNP 11/01/22302 63.0 Fingerstick Glucose (last 72 hours) None [...] Renae MD Internal Medicine Attending Physician Pager [phone] Pharmacy Renal Dosing Service Name: Amber Maldonado [...] been updated per consult agreement. Kelsey Dennison [facility] Department of Pharmacy Services Pharmacokinetic Dosing Service [...] 49.67 mL/min (A) Culture(s): PENDING Kelsey Dennison [facility] Department of Pharmacy Services documented in this encounter [facility] 2022 Consult note Associated Order (s): IP [...] 07/15/2021 Added automatically from request for surgery [id number] Vitamin D deficiency 12/19/2011 Past Surgical History [...] Other (DCIS) Sister Social History Lives in [place] with Social History Socioeconomic History Marital status: [...] 10 min Stress: Stress Concern Present (10/12/2022) [employer] - Occupational Stress Questionnaire Feeling of Stress : Rather much Social Connections: Unknown (10/12/2022) Social Connection and Isolation Panel [NHANES] Frequency of Communication with Friends and Family: Three times a week Frequency of Social Gatherings with Friends and Family: Patient refused Attends Yazdanism Services: Patient refused Active Member of Clubs [...] appropriate judgment Labs Reviewed Imaging Reviewed Assessment/Plan Ambre Maldonado is a 62 year old female [...] Division Hematology / Oncology 11/02/2022 11:20 AM [facility] 10-31-2022 History and physical note Images from the original note were not included. GENERAL MEDICAL FLOOR HISTORY AND PHYSICAL Amber Maldonado [id number] 10/31/2022 Length of stay: 1 day(s) [...] 07/15/2021 Added automatically from request for surgery [id number] Vitamin D deficiency 12/19/2011 Social History: Social [...] Code Status: Full Code Souleymane Whitley PA-C [facility] Medicine Associated attestation - Jameson Renae [...] updated assessment and plan. Jameson Renae MD [facility] 10-31-2022 History and physical note Images from the original note were not included. GENERAL MEDICAL FLOOR HISTORY AND PHYSICAL Amber Maldonado [id number] 10/31/2022 Length of stay: 1 day(s) [...] 07/15/2021 Added automatically from request for surgery [id number] Vitamin D deficiency 12/19/2011 Social History: Social [...] Code Status: Full Code Souleymane Whitley PA-C [facility] Medicine Associated attestation - Jameson Renae [...] Jameson Renae MD documented in this encounter [facility] 10-31-2022 Plan of care note Problem: Routine [...] adult patient will be met Outcome: Progressing [facility] 10-31-2022 Note Formatting of this n ote [...] neutropenia) [facility] documentation entered by: May Baires [facility], 26th edition, Copyright 2021 [facility] All Rights Reserved. [id number]:00 T [facility] 10-19-2022 History of Present illness Narrative Images [...] Frost 2 children 38 year old - [place] (first grandchild due in 4 weeks -- will be girl) 36 year old lives in [place] --- Deven and Boris Cueva Pat - sister - coming to stay for a bit Advanced Directives: Code status - FULL CODE Living will/DPOA-HC - [place] - primary \OARRS was reviewed today. Additional [...] S policy) No 5. Consider consult to vocational services specialist. Referral to addiction medicine specialist is [...] 07/15/2021 Added automatically from request for surgery [id number] Vitamin D deficiency 12/19/2011 Surgical Review of [...] 10 min Stress: Stress Concern Present (10/12/2022) [employer] - Occupational Stress Questionnaire Feeling of Stress : Rather much Social Connections: Unknown (10/12/2022) Social Connection and Isolation Panel [NHANES] Frequency of Communication with Friends and Family: Three times a week Frequency of Social Gatherings with Friends and Family: Patient refused Attends Yazdanism Services: Patient refused Active Member of Clubs [...] hospital encounter of 10/03/22 (from the past 09406 hour(s)) HEPATIC FUNCTION PANEL Collection Time: 10/03/22 [...] protocol implemented: No documented in this encounter [facility] 10-16-2022 Note Encounter addended b y: Ky Vegas APRN-CNS on: 10/16/2022 5:00 PM Actions taken: Clinical Note Signed [facility] 10-16-2022 Miscellaneous Notes Encounter addended by: Ky Vegas APRN-CNS on: 10/16/2022 5:00 PM Actions taken: Clinical Note Signed documented in this encounter [facility] 10-16-2022 History of Present illness Narrative Patient was identified by name and date of . Lyn Baum RN Patient at risk for falls:No Falls Risk protocol implemented: N/A Perianal mass (Primary Diagnosis) [468370] Anal cancer (HCC) [153324] Encounter for antineoplastic chemotherapy [V58.11.ICD-9-CM] Pt presented [...] Lyn Baum RN documented in this encounter [facility] 10-16-2022 Hospital Discharge instructions Lyn Baum RN [...] to have these labs drawn at any [facility] lab BEFORE your scheduled appointment. This will [...] talk to your treatment nurse or call [phone] Lab Locations (recommend calling prior to confirm open hours as these are subject to change) [facility]: [phone]. Sunday-Sunday 7AM - 545PM [place]: [phone]. [phone]. Mondays 830AM - 530PM. Sunday-Sunday 830AM - 530PM. Sunday of the month 830AM - 1230PM [place]: [phone]. Sunday - Sunday 8AM - 5PM [place]: [phone]. [phone]. Sunday - Sunday 830AM - 730PM. Sunday 830AM - 4PM. Sunday 10AM - 2PM [place]: [phone]. [phone]. Sunday - Sunday 730AM - 5PM [place] [facility]: [phone]. [phone]. Sunday - Sunday 730AM - 730PM. Sunday 730AM - 4PM [place]: [phone]. . Sunday - Sunday 730AM - 5PM [place] ([address]): [phone]. [phone]. Sunday - Sunday 730AM - 730PM. Sunday 8AM - 4PM. Sunday 10AM-2PM If you are unsure, or have any questions, please ask! [facility] Staff : [phone] The following attachments cannot be sent through Care Everywhere.MitoMYcin (Systemic), ADULT (Japanese)documented in this encounter [facility] 10-16-2022 History of Present illness Narrative Patient [...] the original note were not included. [facility] Name: Amber Maldonado Medical Oncologist: Dr. Smith Date of Service: 10/16/2022 Referral: No referring provider defined for this encounter. PCP: No primary care provider on file. 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 OSH CC: First Chemo + RT HPI: 61 year old female presented with perianal mass to [facility] July 2021 09/05/17 Endocervical curetting: -Low grade [...] 07/15/2021 Added automatically from request for surgery [id number] Vitamin D deficiency 12/19/2011 Treatment of excessive [...] 10 min Stress: Stress Concern Present (10/12/2022) [place] [employer]ational [employer] - Occupational Stress Questionnaire Feeling of Stress : Rather much Social Connections: Unknown (10/12/2022) Social Connection and Isolation Panel [NHANES] Frequency of Communication with Friends and Family: Three times a week Frequency of Social Gatherings with Friends and Family: Patient refused Attends Yazdanism Services: Patient refused Active Member of Clubs [...] distress. Breath sounds: No wheezing. Abdominal: Comments: Kevin anal skin with pink plaque, irregular shaped [...] for infection; diarrhea; mucositis; 30% risk alopecia; lqfnlf-tkarata-cbbnxyosingkhlcklj; rare neurologic changes; nausea and vomiting; anorexia [...] - cape 1500mg BID from Mon to Sun x 5 weeks: I will confirm it with Dr. Smith. - reviewed labs - discussed [place] in 3-4 week due to possible fatigue [...] results when not reported separately) Charting in [facility] GIRISH Bueno 10/16/2022 3:56 PM documented in this encounter [facility] 10-12-2022 History of Present illness Narrative Chemotherapy [...] plan Camron Roque PharmD Oncology Specialty Pharmacist [id number] Date: 10/12/22 Xeloda prescription on file and can be filled here at our [facility] with a $11.16 co-pay. 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 Thank you for this referral, Naheed Vinson CPhT Images from the original note were not included. [facility]ty Pharmacy Referral (New) [facility] received a prescription for capecitabine (Xeloda) for this patient on 10/10/2022. [facility] has been contacted to initiate a Prior Authorization for this medication. This is an antineoplastic therapy. Patient Information: Amber Maldonado is a 61 year old female [address] [place] [address] [place] [address] Insurance on file: None Specialty Medication Medication [...] Ordering and Authorizing Provider: Lara Smith MD [address] [place] [address] Supporting Clinical Information: Progress Notes 10/03/2022 (Dr. [...] protein, LNP, pres. free, 30 mcg/0.3mL dose (VJZ=465) 07/23/2020, 08/09/2020 Pertinent Labs: CBC WBC RBC [...] pharmacist once medication is approved. Questions for [facility] may be directed to [phone] option 3. Thank you for the referral, Camron Roque PharmD Oncology Specialty Pharmacist [phone] [id number] documented in this encounter [facility] 10-11-2022 Telephone encounter Note Patient called for Mychart help. Provided patient with her mychart activation code. ELYSE Cárdenas RNN, Natalie CHFN, RN-KRYSTLE, [facility] Sheet Fed Printer [facility] [phone] [facility] Work Phone: 10-11-2022 Miscellaneous Notes Patient called for Mychart help. Provided patient with her mychart activation code. Jennifer Nash RN, BSN, Natalie, CHFN, RN-KRYSTLE, [facility] Sheet Fed Printer [facility] [phone] documented in this encounter [facility] 10-06-2022 History of Present illness Narrative Patient [...] Inclusion of Race in Diagnosing Kidney Disease. Citizen Of [place] Journal of Kidney Diseases 202;79(2):268-88.e1. 2. N Engl J Med 1 Vol. 385 Issue 19 Pages [phone] Patient educated on side effects. Patient taken [...] next 24 hrs. documented in this encounter [facility] 10-03-2022 Evaluation note Diagnosis Anal squamous cell carcinoma (HCC)- Primary Malignant neoplasm of anus, unspecified site Body mass index (BMI) 20.0-20.9, adult documented in this encounter [id number] History of Present illness Narrative* Leticia Holden RN - 10/03/2022 12:57 PM EDT Amber Maldonado presents for oncology nurse visit Patient was identified by name and date of . Patient at risk for falls: No Falls Risk protocol implemented: No Has the patient started any medications, over the counter medications or herbal medications? No Blood drawn from Peripheral venipuncture RAC Complications: None. Leticia Holden, RN documented in this [id number] History of Present illness Narrative* Lara Smith MD - 10/03/2022 10:05 AM EDT Referral: Yoselin Padron MD [address] [place] [address] PCP: No primary care provider on file. 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 Breath sounds: No wheezing. Abdominal: Comments: Kevin anal skin with pink plaque, irregular shaped [...] for infection; diarrhea; mucositis; 30% risk alopecia; nsdsqd-nwymrsj-gwuejbdpphpnpqunac; rare neurologic changes; nausea and vomiting; anorexia [...] prn Lara Smith MD documented in this [id number] History of Present illness Narrative* Jana Veloz RN - 10/03/2022 10:00 AM EDT RADIATION [...] 07/15/2021 Added automatically from request for surgery [id number] Vitamin D deficiency 12/19/2011 Review of patient's past surgical history indicates: COLECTOMY open, for diverticulitis EUA, RECTAL (07/19/2021) Procedure: EUA, anal mass biopsies; Surgeon: Yoselin Padron MD; Location: PERIOPERATIVE SERVICES; Service: General BIOPSY, RECTAL (08/28/2022) Procedure: BIOPSY, RECTAL, ANAL MASS BIOPSY; Surgeon: Yoselin Padron MD; Location: PERIOPERATIVE SERVICES; Service: General CHEMOTHERAPY DRUGS: 5FU cream 2016 PREVIOUS RADIATION THERAPY: Denies STUCCO APPLICATOR HISTORY: Onset of menopause 14-15 years ago [...] Other (DCIS) Sister LIVING ARRANGEMENTS: lives with fitl Pt here to discuss radiation therapy for her anal cancer. Denies pacemaker/icd. Seeing Dr Smith today. Written and verbal information provided. All questions and concerns addressed by Dr Ramos. Plan isconcurrent chemoradiation. Jana Veloz RN * Milagro Chavira MTA - 10/03/2022 [...] Padron CURRENT COMPLAINT: squamous cell carcinoma of kevin-anal skin and anal canal HPI: I was [...] The patient's case was discussed at the [facility] multidisciplinary GI tumor board, with the recommendation of concurrent chemoradiation. There has been no imaging, with a CT of the chest abdomen and pelvisto be done later today, at the [facility] in [place]. The patient has been seen by Dr. [...] 07/15/2021 Added automatically from request for surgery [id number] Vitamin D deficiency 12/19/2011 Past Surgical History: [...] PELVIS W CONTRAST IV only 08/17/16 Order: [id number] Narrative PROCEDURE: CT SCAN OF ABDOMEN AND [...] no free fluid in the peritoneal cavity. MyChart Users: Please note all Radiology and Diagnostic Imaging results are subject to interpretation according toyour specific medical history and condition. The results in this report should be reviewed with your ordering or primary care physician as appropriate. Exam End: 08/17/16 16:52 Specimen Collected: 08/17/16 17:14 Last Resulted: 08/17/16 17:23 Received From: [facility] Result Received: 06/14/22 14:02 Pathology: Case Report Surgical Pathology Report Case: [id number] Authorizing Provider: Yoselin Padron MD Collected: 08/28/2022 1324 Ordering Location: [facility] Main OR Received: 08/29/2022 8478 Pathologist: Francoise Mcallister MD Specimens: A) - [...] hyperparakeratosis. Case Report Surgical Pathology Report Case: [id number] Authorizing Provider: Yoselin Padron MD Collected: 07/19/2021 1112 Ordering Location: [facility] OR Received: 07/20/2021 1003 Pathologist: Georgina Carter [...] into rectum. No vaginal involvement, confirmed by STUCCO APPLICATOR. cT3N0, CT pending later today. Pelvic exam deferred, no involvement per STUCCO APPLICATOR evaluation. Assessment/Plan: 61-year-old female with a T3N0M0 [...] participate in the care of this patient. Interior Plant Caretaker was done with voice recognition, all errors may not have been detected and corrected. documented in this [id number] Telephone encounter Note* Telephone Encounter - Ky Vegas APRN-CNS - 10/02/2022 2:36 PM EDT Ms. Maldonado appreciated to reschedule an appt with Dr. Smith from 10/04 to 10/03. GIRISH Bueno 10/02/2022 2:37 PM [facility] [place] Work Phone: [phone] Miscellaneous Notes* Telephone Encounter - Ky Vegas APRN-CNS - 10/02/2022 2:36 PM EDT Ms. Maldonado appreciated to reschedule an appt with Dr. Smith from 10/04 to 10/03. GIRISH Bueno 10/02/2022 2:37 PM documented in this [id number] History of Present illness Narrative* Lara Smith MD - 09/27/2022 2:18 PM EDT Called patient re: chemoRTx for likely kly stage I anal documented in this [id number] NotePt called requesting update regarding Tumor Board meeting and pt's treatment plan. Please return pt's phone call. Ok to leave detailed message on pt's voicemail. Thanks.The [facility] [place] [id number] Telephone encounter Note* Telephone Encounter - Alejandra Flowers RN - 09/26/2022 2:51 PM EDT Pt called requesting update regarding Tumor Board meeting and pt's treatment plan. Please return pt's phone call. Ok to leave detailed message on pt's voicemail. Thanks. [id number] Miscellaneous Notes* Telephone Encounter - Alejandra Flowers RN - 09/26/2022 2:51 PM EDT Pt called requesting update regarding Tumor Board meeting and pt's treatment plan. Please return pt's phone call. Ok to leave detailed message on pt's voicemail. Thanks. * Telephone Encounter - Vito, Yoselin Ojeda MD - 09/08/2022 1:44 PM EDT I spoke to Ms. Maldonado about the pathology results. Two of the biopsies show well differentiated squamous call cancer with minute focal features favoring invasion. I am going to present her at tumor board to decide if this should be treated with chemo/xrt or topical 5 -FU. I will call her with those recommendations. Yoselin Padron MD documented in this [id number] Telephone encounter Note* Telephone Encounter - Vito, Yoselin Ojeda MD - 09/08/2022 1:44 PM EDT I spoke to Ms. Maldonado about the pathology results. Two of the biopsies show well differentiated squamous call cancer with minute focal features favoring invasion. I am going to present her at tumor board to decide if this should be treated with chemo/xrt or topical 5 -FU. I will call her with those recommendations. Yoselin Padron MD [id number] Miscellaneous Notes* Telephone Encounter - Yoselin Padron MD - 09/08/2022 1:44 PM EDT I spoke to Ms. Maldonado about the pathology results. Two of the biopsies show well differentiated squamous call cancer with minute focal features favoring invasion. I am going to present her at tumor board to decide if this should be treated with chemo/xrt or topical 5 -FU. I will call her with those recommendations. Yoselin Padron MD documented in this [id number] Telephone encounter Note* Telephone Encounter - Yoselin Padron MD - 09/06/2022 2:51 PM EDT Attempted to reach Ms. Maldonado to give her the path results from her surgery on 08/28/2022 but her voicemail is full. Yoselin Padron MD [id number] Miscellaneous Notes* Telephone Encounter - Vito, Yoselin Ojeda MD - 09/06/2022 2:51 PM EDT Attempted to reach Ms. Maldonado to give her the path results from her surgery on 08/28/2022 but her voicemail is full. Yoselin Padron MD documented in this [id number] Hospital Discharge instructions Follow Up Care 05/19/2022 10:32:22 With:Nahum Jones Address: [facility] [address] [place] [phone] Fax Business (1) When: Unknown Comments:mri rectum/pelvis at [facility]. pet/ct at [facility]. f/u with Dr. España and me same day after this MRI and PET/CT. [facility]08-27-2022 Progress note Author Peneolpe Ewing [facility] December 03, 2021 1:07pm Note Date/Time December 02, 2021 2: 41pm [facility] [place] [address] Hem/Onc Follow Up Note - OP Signed Patient: Amber Maldonado MR#: [id number] : 1960 Acct:[id number] Age/Sex: 61 / F Type: REG RCR Copies to: MD Lizbeth Wyman, [facility] Yoselin Padron~ Subjective Date/Time of Service: Date of Service: [...] review recommendations from GI tumor board at [facility]. Patient was originally to be referred to Dr. Alcides Zuniga for surgical evaluation but recommendation was tosend to Dr. Gracy Murphy for evaluation and office anoscopy. Holding PET/CTat this time. Evaluate for potential wide local excision if anal canal is not involved. May be eligible for clinical trial. [facility] [place] to review. Radiation oncology Dr. España was [...] a 60-year-old lady who presents referred from [facility] for diagnosis of recurrent anal carcinoma. 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 She was referred to Dr. Desena Peng at [facility] and we are requesting original records for [...] situ. She then referred the patient to [facility] for anoscopy. Patient has noted some intermittent brightred blood per rectum over stools and also when she is cleaning the area. She does not have any significant diarrhea or other changes in stools and denies anysignificant pain. She does have a remote history of genital warts and has not received the HPV vaccine. Anal exam at [facility] reported involvement of anal verge, but [...] in situ (obtaining original records from [facility]): Topical chemotherapy cream for 6 months and then had lasertreatments with resolution of symptoms 2. Discussion of treatment options for recurrent perianal skin cancer/involvement of anal verge. Referred to Dr. Gracy Cardona at [facility] who requests MRI of pelvis prior to planned surgical excision of perianal condyloma with HGSIL ROS Details: All systems reviewed & no additional complaints except as documented Subjective/ROS - Narrative: No change in review of systems from original consult 10/26/2021 CONSTITUTIONAL: Negative for fatigue, negative for fever or night sweats. 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 HEAD AND NECK: Negative for changes in [...] chronic Claritin. Denies medication or food allergies. 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 This was treated in about 2016 with topical chemotherapy (presumed 5-FU) for about [...] carcinoma. 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 On 10/26/2021, she presented for evaluation with medical oncology and radiation oncology to discuss optimal therapy. I sent HIV (not performed) and presented her case in GI oncology tumor board. I am also sending her for STUCCO APPLICATOR evaluation to update her Pap smear given prior history of general warts and recurrent anal cancer. I reviewed prior records from [facility] to determine prior treatment and initial diagnosis. The patient was counseled regarding options of concurrent chemoradiation but [facility] GI tumor board recommended evaluation by [...] of complex care We discussed patient in [facility] to her tumor board as noted [...] for coordination of care (as documented) and jlar-mu-llpe counseling of patient and/or family. Dictated By: Penelope Ewing MD DD/ 1440 Signed By: <Electronically signed by MD Penelope Ewing> 12/03/21 1304 [facility] Work Phone: [phone]) 811-418707-27-2022 Sam MALDONADO was presented at GI/Esophagus Tumor Board Conference Conference date: 02-Nov-2021 Presenting Provider(s): Dr. Penelope Ewing Referring provider(s): (Self) Presenting location(s): [facility] Conference Review Type: Treatment Planning Impression Review imaging. High grade squamous of perianal skin. No evidence of invasive ca and treated with topical chemo for 6mos and then laser treatments with resolution of symptoms. Has not had any STUCCO APPLICATOR eval for approx 8 years. Recent biopsy [...] to colorectal surgery. Obtain outside path from [facility] [place]. Consider wide local resection. Disclaimer SCC tumor [...] Last Updated: 03-Nov-2021 20:18 by Lisa Saleh (COOR)[facility]07-20-2022 Consult note Author Penelope Eiwng [facility] October 26, 2021 12:16pm Note Date/Time October 26, 2021 8:21 am [facility] at [address] [address] Hem/Onc Consult Note - OP Signed Patient: Amber Maldonado MR#: [id number] : 1960 Acct:[id number] Age/Sex: 60 / F Type: REG RCR Copies to: RUBIN Belcher MD Norleena Poynter, MD Times, Yoselin~ HPI Date/Time of Service: Date of Service: 10/26/2021 Time of Service: 08:20 Referring Provider/PCP: Referring Provider: Yoselin Padron PCP: Lizbeth Penaloza DNP - History of Present Illness Reason for Consultation: Previous diagnosis of perianal cancer (squamous cell carcinoma in situ) that wastreated in [facility] with topical chemotherapy followed by laser treatment. [...] a 60-year-old lady who presents referred from [facility] for diagnosis of recurrent anal carcinoma. 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 She was referred to Dr. Desean Peng at [facility] and we are requesting original records for [...] situ. She then referred the patient to [facility] for anoscopy. Patient has noted some intermittent [...] squamous cell carcinoma in situ around 2015 ([facility]). Obtaining original records. 2. Perianal squamous cell [...] in situ (obtaining original records from [facility]): Topical chemotherapy cream for 6 months and [...] (Cross's disease) 6 years ago treated in [place], [place] (records pending) (1) Recurrent anal squamous [...] carcinoma. She was referred for anoscopy at [facility] and was found to have invasive carcinoma [...] also am requesting prior records from [facility] to determine prior treatment and initial diagnosis. The patient was counseled regarding likely option of concurrent chemoradiation but we will deferchemotherapy counseling until follow-up of her PET/CT and recommendations from [facility] GI tumor board. The patient expressed [...] of complex care Will discuss patient in [facility] to her tumor board as noted [...] for coordination of care (as documented) and pjel-oo-echd counseling of patient and/or family. Dictated By: Penelope Ewing MD DD/ 9 Signed By: <Electronically signed by MD Penelope Ewing> 10/26/21 5717 [facility] Work Phone: [phone]) 676-490407-20-2022 Consult note Author Jun España [facility] October 26, 2021 10:19am Note Date/Time October 25, 2021 2:39 pm [facility] [place] [id number] Rad Onc Consult Note - OP Signed Patient: Amber Maldonado MR#: [id number] : 1960 Acct:[id number] Age/Sex: 60 / F Type: REG RCR Copies to: MD Lizbeth Reyes DNP Melissa Times, MD Times, Melissa~ Assessment & Plan (1) Anal cancer Plan: 1. PET scan to complete staging and for radiation planning (can be done with CTSim for radiation planning) 2. [facility] tumor board presentation 4. CT simulation with [...] recommendations. She is also been referred to STUCCO APPLICATOR for a Pap smear. HPI Date of Service: 10/26/21 HPI: 60-year-old female with a history of anal cancer treated with topical agents and laser therapy in 2016. She now presents with a new lesion. Oncologic history as follows:: July 19, 2021 seen at [facility] and was taken to the OR for [...] She denies any pain fromthe anal tumor. [facility] - Medical History Medical History: Medical History [...] 10 mg PO DAILY 10/26/21 [History Confirmed 07/20/22] sertraline 100 mg tablet (Zoloft) 100 mg [...] very distal aspect of the anal canal. STUCCO APPLICATOR: Exam shows normal external genitalia. Speculum exam shows vaginal mucosa to be pink and moist without lesion. Unable to visualize the cervix which is within normal limits. Dictated By: Jun España MD DD/ 1436 Signed By: <Electronically signed by Jun España MD> 10/26/21 1019 [facility] Work Phone: [phone]) 427-834306-23-2022 Evaluation note* Encounter Date Diagnosis Assessment Notes [...] Hand fracture home care material was printed [employer] Other 05-25-2022 History of Present illness Narrative* [facility] [place] CRS: Yoselin Padron * [facility] [facility] System: Penelope Ewing * Amber is a 61 yo female with a history of anal dysplasia s/p topical chemo and lazer sx in 2015 ([place]). She noted a recurrence for the past few months. She felt the lesion in the shower and no associated pain or tenderness. No change in bowel habits. 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 She was seen by Dr. Yoselin Padron at [facility] [place] and was found to have a 7x6cm [...] stopping. * Colonoscopy 2018 in [place] at [facility] in [place], [place] * Current every day smoker 1ppd/Drinks about 2 drinks daily/No Illicit drug use * PMH: anxiety * PSH: colectomy for diverticulitis in 2016 * NKDA * No family history of CRC or IBD * Employment: Not currently working [employer] Work Phone: [phone]) 808-149405-04-2022 Miscellaneous Notes* Telephone Encounter - Karolina Johnson - 08/10/2021 12:15 PM EDT I have contacted patient to let her know that I have taken her signed medical records release to Medical Records. They will get her records and imaging over to Dr. Jun España for further treatment. Karolina Johnson Certified Personal Chef to Dr. Yoselin Padron Colorectal Surgery documented in this [id number] Miscellaneous Notes* Telephone Encounter - Penelope Guzmán RN - 08/05/2021 11:57 AM EDT Provided pt with information [address] [place] [address] ,[place] [address] Verbalized understanding . Penelope Guzmán RN documented in this [id number] Miscellaneous Notes* Telephone Encounter - Vito, Yoselin Ojeda MD - 07/27/2021 5:47 PM EDT I spoke to Ms. Maldonado about the pathology results which showed invasive squamous cell cancer. I reviewed the diagnosis, staging, and management. She lives in [place] now and is moving to [place]. I suggested Ashlyn/Sunni. I will have our office refer to this [facility] location. She wants to follow up with me after radiation. She needs a CT chest/abd/pelvis for staging which can be done at . Yoselin Padron MD documented in this [id number] Miscellaneous Notes* Telephone Encounter - Yoselin Padron MD - 07/26/2021 5:10 PM EDT Message left for patient regarding pathology results. documented in this [id number] History and physical note* Yoselin Padron MD [...] of Onset Other (DCIS) Sister Physical exam: [employer] present Vitals Recorded in This Encounter 07/15/2021 [...] 07/19/2021. Yoselin Padron MD documented in this [id number] History of Present illness Narrative* Yoselin Padron [...] of Onset Other (DCIS) Sister Physical exam: [employer] present Vitals Recorded in This Encounter 07/15/2021 [...] from the original note were not included. [facility] GENERAL SURGERY COLORECTAL SURGERY CONSULTATION, HISTORY [...] for anal EUA, biopsy on Sunday at [facility] Pt seen, d/w Dr. Padron, staff surgeon [...] Risk protocol implemented: No documented in this [id number] Miscellaneous Notes* Anesthesia Attestation - Carlos A Vazquez MD - 07/19/2021 7:00 AM EDT Anesthesia Attestation ATTESTATION OF INFORMED CONSENT FOR ANESTHESIA Anesthesia options were discussed with the patient and/or legal hvac sales representative. The risks, benefits and alternatives were reviewed. Questions regarding anesthesia were answered. Patient and/or legal hvac sales representative knows such anesthetics and procedures may [...] were discussed with the patient and/or legal hvac sales representative. The risks, benefits and alternatives were reviewed. Questions regarding blood transfusions were answered. The patient /or the patient s legal hvac sales representative agree with the plan for transfusion of blood and/or blood components. documented in this [id number] Miscellaneous Notes* Telephone Encounter - Karolina Johnson [...] stated to call the office Sunday at [phone] after 8:00 am if she had any additional questions about the pse appointment or surgery scheduled for July 19, 2021. Karolina Johnson Certified Personal Chef to Dr. Yoselin Padron Colorectal Surgery documented in this [id number] Instructions* Patient Instructions* Yoselin Padron MD - 07/15/2021 3:49 PM EDT Date of Surgery: July 19, 2021 You will be called the day before surgery with an arrival time. Fasting Guidelines before Surgery When to stop eating and drinking before surgery [facility] is committed to the health and safety [...] your scheduled surgery time. documented in this [id number] History of Present illness Narrative* Victoriano Chandler [...] a new provider. She recently relocated to [place] from [place] and was seen by Dr. Lizbeth Livingston, [...] Counseling/educating the patient/family/caregiver Referring/communicating with other health gericare aide - when not reported separately Charting in [facility] Victoriano Chandler MD * Christi Chaves RN - 07/06/2021 2:58 PM EDT Identification was verified by patient verbalizing her name and date of . Patient at risk for falls:No Falls Risk protocol implemented: No Patient here for consult for skin cancer removal. Christi Chaves RN documented in this encounterMetroHealthEvaluation + Plan note No data available for this section [facility]* Diagnosis Squamous cell carcinoma of perianal [...] site documented in this encounter [facility] noteNo [place] [employer] Other Evaluation note* Diagnosis Onset Date Resolution Status Anal cancer acute Recurrent anal squamous cell carcinoma chronic [facility] Work Phone: Evaluation note* Diagnosis Onset Date Resolution Status Anal cancer acute Carcinoma in situ of anal margin chronic Coordination of complex care chronic Recurrent anal squamous cell carcinoma chronic [facility] Work Phone: Evaluation note* Diagnosis Perianal mass- Primary Other symptoms [...] in this encounter [facility] noteNo assessment [facility] Work Phone: Evaluation note* Diagnosis Anxiety Anxiety state, unspecified [facility] encounter [facility] Diagnosis Anxiety Anxiety state, unspecified documented in this encounter [facility]* Diagnosis Welcome to Medicare preventive visit- Primary Need for immunization against influenza Need for prophylactic vaccination and inoculation against influenza Screening for depression Anxiety Anxiety state, unspecified Screening for heart disease Screening for other and unspecified cardiovascular conditions Seizure ([facility]) Other convulsions Thoracic aortic aneurysm without rupture, unspecified part ([facility]) Depression, unspecified depression type Gastroesophageal reflux disease, unspecified whether esophagitis present [facility]* Diagnosis Anxiety Anxiety state, unspecified documented 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* Diagnosis Anxiety- Primary Anxiety state, unspecified [facility]* Diagnosis Recurrent anal squamous cell carcinoma ([facility]) Malignant neoplasm of anus, unspecified site documented in this encounter 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 Please call Dr. Padron' office: [phone] to make an appointment at your convenience. For other questions or concerns, please contact Dr. Padron at the number listed below. On weekends or after-hours, call [phone] and ask to speak with the surgery resident satellite instruction facilitator Yoselin Padron MD, FACS, FASCRS Colorectal Board Catchertechnical writer, [address] [address] PERIOPERATIVE DISCHARGE/HOME-GOING INSTRUCTIONS ANESTHESIA - GENERAL (ADULT) If a problem arises, you may contact your physician by calling [phone] and asking for the resident satellite instruction facilitator for Colorectal service. Special Care Needs: Activity: [...] very uncomfortable and can t urinate, call [phone] or come to the emergency room. The day after surgery, a nurse will call to check on you. However, if there are any questions or concerns, please call us at the number listed in the home going instructions. documented in this encounterMet[facility]HealthHospital Discharge instructionsAmbulatory Orders* Imaging on Disk Time Frame: 1 Day, Location: Determined By Patient [facility] Work Phone: InstructionsNot on filedocumented in this encounter [facility]ructionsNot on filedocumented in this encounter [facility] SystemInstructionsNot on filedocumented in this encounter [facility] SystemInstructionsNot on filedocumented in this encounter [facility]InstructionsNot on filedocumented in this encounter [facility] SystemInstructionsNot on filedocumented in this encounter [facility] SystemInstructionsNot on filedocumented in this encounter [facility] SystemInstructionsNot on filedocumented in this encounter [facility] SystemInstructionsNot on filedocumented in this encounter [facility] SystemProgress note Author Penelope Ewing [facility] December 03, 2021 1:07pm Note Date/Time December 02, 2021 2: 41pm [facility] at [address] [address] Hem/Onc Follow Up Note - OP Signed Patient: Amber Maldonado MR#: [id number] : 1960 Acct:[id number] Age/Sex: 61 / F Type: REG RCR Copies to: MD Lizbeth Wyman, Yoselin Bowman~ Subjective Date/Time of Service: Date of Service: [...] review recommendations from GI tumor board at [facility]. Patient was originally to be referred to Dr. Alcides Zuniga for surgical evaluation but recommendation was tosend to Dr. Gracy Murphy for evaluation and office anoscopy. Holding PET/CTat this time. Evaluate for potential wide local excision if anal canal is not involved. May be eligible for clinical trial. [facility] [place] to review. Radiation oncology Dr. España was [...] a 60-year-old lady who presents referred from [facility] for diagnosis of recurrent anal carcinoma. 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 She was referred to Dr. Desean Peng at [facility] and we are requesting original records for [...] situ. She then referred the patient to [facility] for anoscopy. Patient has noted some intermittent brightred blood per rectum over stools and also when she is cleaning the area. She does not have any significant diarrhea or other changes in stools and denies anysignificant pain. She does have a remote history of genital warts and has not received the HPV vaccine. Anal exam at [facility] reported involvement of anal verge, but [...] in situ (obtaining original records from [facility]): Topical chemotherapy cream for 6 months and then had lasertreatments with resolution of symptoms 2. Discussion of treatment options for recurrent perianal skin cancer/involvement of anal verge. Referred to Dr. Gracy Cardona at [facility] who requests MRI of pelvis prior to planned surgical excision of perianal condyloma with HGSIL ROS Details: All systems reviewed & no additional complaints except as documented Subjective/ROS - Narrative: No change in review of systems from original consult 10/26/2021 CONSTITUTIONAL: Negative for fatigue, negative for fever or night sweats. 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 On 10/26/2021, she presented for evaluation with medical oncology and radiation oncology to discuss optimal therapy. I sent HIV (not performed) and presented her case in GI oncology tumor board. I am also sending her for STUCCO APPLICATOR evaluation to update her Pap smear given prior history of general warts and recurrent anal cancer. I reviewed prior records from [facility] to determine prior treatment and initial diagnosis. The patient was counseled regarding options of concurrent chemoradiation but [facility] GI tumor board recommended evaluation by [...] of complex care We discussed patient in [facility] to her tumor board as noted [...] for coordination of care (as documented) and [id number] counseling of patient and/or family. Dictated By: Penelope Ewing MD DD/ [id number] Signed By: <Electronically signed by MD Penelope Ewing> 12/03/21 2165 [facility] Work Phone: Progress note Author Jun [facility] January 11, 2022 3:51pm Note Date/Time January 11, 2022 2: 36pm [facility] at [place] [id number] Rad Onc Follow Up Note - OP Signed Patient: Amber Maldonado MR#: [id number] : 1960 Acct:[id number] Age/Sex: 61 / F Type: REG RCR Copies to: MD Gracy Reyes MD Jennifer M Kaple, [facility] Date of Service Service Date: 01/11/22 Assessment [...] agents and laser therapy in 2016. She was originally seen in consultation in mid October 2021. Her case was presented at tumor board and she was sent for consideration of surgical resection. Oncologic history as follows:: July 19, 2021 seen at [facility] and was taken to the OR for [...] she has been providing financial assistance by [facility]. She did not undergo surgery due to lack of insurance she would have to pay 3000 [id number]. Physical exam General: alert and oriented male [...] the top of the anal canal. Prior STUCCO APPLICATOR Exam shows normal external genitalia. Speculum exam shows vaginal mucosa to be pink and moist without lesion. Able to visualize the cervix which is within normal limits. Dictated By: Jun España MD DD/ [id number] Signed By: <Electronically signed by Jun España MD> 01/11/22 1551 [facility] Work Phone: Progress note No data available for this section [facility]Reason for [facility] Narrative* Auth/Cert Specialty Diagnoses / Procedures Referred By Alf srinivasan Referred To Contact General Surgery Diagnoses Perianal mass Perianal mass [K62.89] Procedures ANORECTAL EXAM, SURGICAL, REQUIRING ANESTHESIA (GENERAL, SPINAL, OR EPIDURAL), DIAGNOSTIC BIOPSY, ANORECTAL WALL, ANAL APPROACH EUA, anal mass biopsies Times, Yoselin Ojeda MD [address] [place] [address] [employer] [address] [place] [address] Phone: [phone] Referral ID Status Reason Start Date Expiration Date Visits Re quested Visits Authorized [id number] 3 3 [facility] Advance Directives Advance Directive Response Recorded Date/ Time Advance Directives No December 03, 2018 12:55pm Advance Directive Response Recorded Date/ Time Advance Directives No December 03, 2018 1:55pm Documents on File Type Date Recorded Patient Assistant Prosecuting Attorney Expl anation Living Will 10/23/2022 3:19 PM Living [facility] Power of Glass Cutting Machine Operator 10/23/2022 3:12 PM Healthcare Power of Glass Cutting Machine Operator Latest Code Status on File Code Status Date Activated Date Inactivated Comments Full Code 10/31/2022 8:26 PM Question Answer Comments Documentation of decision process for this code status: Patient and surrogate unable or unavailable to discuss. There is no previous documentation of code status. Defaulting to Full Code Documents on File Type Date Recorded Patient Assistant Prosecuting Attorney Expl anation Living Will 10/23/2022 3:19 PM Living [facility] Power of Glass Cutting Machine Operator 10/23/2022 3:12 PM Healthcare Power of Glass Cutting Machine Operator Latest Code Status on File Code Status [...] Recurrent anal squamous cell carcinoma Chief Complaint Unknown Assessments No Assessments Information AvailableNo Assessments Information Available Reason for Referral Specialty Diagnoses / Procedures Referred By Contac t Referred To Contact General Surgery Diagnoses Squamous cell carcinoma of perianal region Procedures GENERAL SURGERY SERVICE REQUEST Victoriano Chandler MD [address] [place] [address] Yoselin Padron MD [address] [place] [address] Referral ID Status Reason Start Date Expiration Date V isits Requested Visits Authorized [id number] Authorized 07/06/2021 01/02/2022 3 3 Specialty Diagnoses / Procedures Referred By Contac t Referred To Contact Hematology/Oncology Diagnoses Anal cancer (HCC) Anal squamous cell carcinoma (HCC) Yoselin Padron MD [address] [place] [address] [facility] [address] [place] [address] Phone: [phone] Referral ID Status Reason Start Date Expiration Date Visits Requested Visits Authorized [id number] Authorized Transfer of Care-outside, patient preference 08/05/2021 08/01/2022 3 3 Comments This pt is looking for Oncology care in the [facility] and RAD oncology. Needs CT scans Insurance is through [phone] [place] [address] Specialty Diagnoses / Procedures Referred By Contac t Referred To Contact Palliative Care Diagnoses Anal squamous cell carcinoma (HCC) Mitra Ramos MD, PhD [address] [place] [address] [facility] [address] [place] [address] Referral ID Status Reason Start Date Expiration Date V isits Requested Visits Authorized [id number] Authorized 10/03/2022 10/04/2023 3 3 Scheduling Instructions Please call the Palliative Care office/clinic at to set up an appointment. Question Answer Reason for Referral Cancer [2] Comments Anal cancer pt that will be getting chemoradiation Specialty Diagnoses / Procedures Referred By Contac t Referred To Contact Nutrition Diagnoses Anal squamous cell carcinoma (HCC) Mitra Ramos MD, PhD [address] [place] [address] [facility] N[facility] [address] [place] [address] Referral ID Status Reason Start Date Expiration Date Visits Requested Visits Authorized [id number] Authorized Consultatio n-[facility] 10/03/2022 10/04/2023 20 20 Scheduling Instructions Please [...] CHEST/ABD/PELVIS W/ CONTRAST Times, Yoselin Ojeda MD [address] [place] [address] [facility] CT SCAN Referral ID Status Reason Start Date Expiration Date V isits Requested Visits Authorized [id number] Closed Transfer of Care-[facility] 09/28/2022 12/27/2022 1 1 Specialty Diagnoses / Procedures Referred By Contac t Referred To Contact Radiology Diagnoses Anal squamous cell carcinoma (HCC) Procedures PET SUBSEQ/DIAG CT NCK/CHST/ABD/PEL W/ Mitra Ramos MD, PhD [address] [place] [address] [facility] PET SCAN [address] [place] [address] Referral ID Status Reason Start Date Expiration Date V isits Requested Visits Authorized [id number] Authorized 03/08/2023 12/07/2023 1 1 Chief Complaint Anal dysplasia Summary Purpose Family History Relationship Condition Age at Onset Recorded Date/T rayna Not Specified No pertinent family history Unknown father Malignant neoplasm Unknown Unknown mother History of stroke Unknown No Family History Records Found Additional Source Comments Reason for Visit (unrecogniz ed section and content) Reason Onset Date Comments No Show 01/12/2023 Specialty Diagnoses / Procedures Referred By Contac t Referred To Contact Nutrition Diagnoses Anal squamous cell carcinoma (HCC) Mitra Ramos MD, PhD [address] [place] [address] [facility] [address] [place] [address] Referral ID Status Reason Start Date Expiration Date Visits Requested Visits Authorized [id number] Authorized Consultatio n-[facility] 10/03/2022 10/04/2023 20 20 Reason Comments Chemotherapy Blood test Specialty Diagnoses / Procedures Referred By Contac t Referred To Contact Oncology Medical Diagnoses Perianal mass Lara Smith MD [address] [place] [address] Referral ID Status Reason Start Date Expiration Date V isits Requested Visits Authorized [id number] Authorized 10/06/2022 04/01/2023 2 2 Reason Comments Consult with specialist Specialty Diagnoses / Procedures Referred By Contac t Referred To Contact Diagnoses VERRICOID CROSS'S DISEASE, RIGHT MEDIAL BUTTOCK Procedures DERMATOLOGY SERVICE REQUEST LVL 3 EST PT, LOW MDM, 20-29 MINUTES Lizbeth Livingston MD [address] [place] [id number] Victoriano Chandler MD [address] [place] [address] [place] [address] Referral ID Status Reason Start Date Expiration Date Visits Requested Visits Authorized [id number] Authorized Transfer of Care-[facility] 07/01/2021 12/28/2021 3 3 Reason Comments New patient, to establish relationship Specialty Diagnoses / Procedures Referred By Contac t Referred To Contact General Surgery Diagnoses Squamous cell carcinoma of perianal region Procedures GENERAL SURGERY SERVICE REQUEST Victoriano Chandler MD [address] [place] [address] [place] [address] Yoselin Padron MD [address] [place], [place] [id number] Referral ID Status Reason Start Date Expiration Date V isits Requested Visits Authorized [id number] Authorized 07/06/2021 01/02/2022 3 3 Reason Onset [...] Diagnoses Anal cancer (HCC) Yoselin Padron MD [address] [place] [address] [facility] RAD ONCOLOGY [address] [place] [address] Referral ID Status Reason Start Date Expiration Date V isits Requested Visits Authorized [id number] Pending Review 09/26/2022 09/27/2023 3 3 Specialty Diagnoses / Procedures Referred By Contac t Referred To Contact Radiology Diagnoses Anal cancer (HCC) Procedures CT CHEST/ABD/PELVIS W/ CONTRAST Yoselin Padron MD [address] [place] [address] [facility] CT SCAN Referral ID Status Reason Start Date Expiration Date V isits Requested Visits Authorized [id number] Closed Transfer of [facility] 09/28/2022 12/27/2022 1 1 Reason Comments care coordination Reason Onset Date Comments Specialty Pharmacy Medication Refill 10/06/2022 Xeloda Reason Comments Chemotherapy Reason Comments Monitoring/follow-up Specialty Diagnoses / Procedures Referred By Contac t Referred To Contact Palliative Care Diagnoses Anal squamous cell carcinoma (HCC) Mitra Ramos MD, PhD [address] [place] [address] [facility] [address] [place] [address] Referral ID Status Reason Start Date Expiration Date V isits Requested Visits Authorized [id number] Authorized 10/03/2022 10/04/2023 3 3 Specialty Diagnoses / Procedures Referred By Contac t Referred To Contact Oncology Medical Diagnoses Neutropenic fever (HCC) Procedures N/A Jameson Renae MD [address] [place] [address] [email or web address] [address] [place] [id number] Phone: [phone] Referral ID Status Reason Start Date Expiration Date Visits Re quested Visits Authorized [id number] 3 3 Reason Comments palliative care Reason Comments Dehydration Reason Onset Date Comments No Show 12/20/2022 Reason Onset Date Comments No Show 12/29/2022 Reason Comments Refill Reason Onset Date Comments Speak with provider 01/22/2023 Reason Comments Med Refill Reason Comments Annual Exam medicare Reason Comments Med Change Request Reason Onset Date Comments Med Refill 04/22/2024 Reason Onset Date Comments Med Refill 10/01/2023 Reason Comments Follow-up Update H&P, Colonosc opy scheduled 10/24/23 at [facility] Reason Onset Date Comments Med Refill 09/11/2023 Reason Comments Follow-up 3 month Reason Onset Date Comments Med Refill 12/21/2023 Care Teams (unrecognized sec tion and content) Staple Laster Relationship Specialty Start Date End Date Victoriano Chandler MD [address] [place] [address] [place] [address] Physician Dermatology 07/09/21 Staple Laster Relationship Specialty Start Date End Date Victoriano Chandler MD [address] [place] [address] [place] [address] Physician Dermatology 07/09/21 Staple Laster Relationship Specialty Start Date End Date Victoriano Chandler MD [address] [place] [address] [place] [address] Physician Dermatology 07/09/21 Staple Laster Relationship Specialty Start Date End Date Victoriano Chandler MD [address] [place] [address] [place] [address] Physician Dermatology 07/09/21 Staple Laster Relationship Specialty Start Date End Date Victoriano Chandler MD [address] [place] [address] [place] [address] Physician Dermatology 07/09/21 Staple Laster Relationship Specialty Start Date End Date Victoriano Chandler MD [address] [place] [address] [place] [address] Physician Dermatology 07/09/21 Staple Laster Relationship Specialty Start Date End Date Victoriano Chandler MD [address] [place] [address] [place] [address] Physician Dermatology 07/09/21 Team Status: Inactive Member Role Status Dates Lizbeth Penaloza DNP Primary Care Provider Active Edgar Galloway APRN Attending Provider Active Team Status: Active Member Role Status Dates Lizbeth Penaloza DNP Primary Care Provider Active Jun España MD Attending Provider Active Vito Wyatt Referring Provider Active Team Status: Active Member Role Status Dates Lizbeth Penaloza DNP Primary Care Provider Active Staple Laster Relationship Specialty Start Date End Date Victoriano Chandler MD [address] [place] [address] [place] [address] Physician Dermatology 07/09/21 Times, Yoselin Ojeda MD [address] [place] [address] Physician Colon & Rectal Surgery 08/13/21 Staple Laster Relationship Specialty Start Date End Date Victoriano Chandler MD [address] [place] [address] [place] [address] Physician Dermatology 07/09/21 Times, Yoselin Ojeda MD [address] [place] [address] Physician Colon & Rectal Surgery 08/13/21 Staple Laster Relationship Specialty Start Date End Date Victoriano Chandler MD [address] [place] [address] [place] [address] Physician Dermatology 07/09/21 Times, Yoselin Ojeda MD [address] [place] [address]142 Physician Colon & Rectal Surgery 08/13/21 Staple Laster Relationship Specialty Start Date End Date Victoriano Chandler MD [address] [place] [address] [place] [address] Physician Dermatology 07/09/21 Times, Yoseiln Ojeda MD [address] [place] [address]70 Physician Colon & Rectal Surgery 08/13/21 Staple Laster Relationship Specialty Start Date End Date Victoriano Chandler MD [address] [place] [address] [place] [address] Physician Dermatology 07/09/21 Times, Yoselin Ojeda MD [address] [place] [address]58 Physician Colon & Rectal Surgery 08/13/21 Staple Laster Relationship Specialty Start Date End Date Victoriano Chandler MD [address] [place] [address] [place] [address] Physician Dermatology 07/09/21 Times, Yoselin Ojeda MD [address] [place] [address]57 Physician Colon & Rectal Surgery 08/13/21 Staple Laster Relationship Specialty Start Date End Date Victoriano Chandler MD [address] [place] [address] [place] [address] Physician Dermatology 07/09/21 Times, Yoselin Ojeda MD [address] [place] [address] 15962 Physician Colon & Rectal Surgery 08/13/21 Staple Laster Relationship Specialty Start Date End Date Victoriano Chandler MD [address] [place] [address] [place] [address] Physician Dermatology 07/09/21 Times, Yoselin Ojeda MD [address] [place] [address] 10322 Physician Colon & Rectal Surgery 08/13/21 Staple Laster Relationship Specialty Start Date End Date Victoriano Chandler MD [address] [place] [address] [place] [address] Physician Dermatology 07/09/21 Times, Yoselin Ojeda MD [address] [place] [address] 59531 Physician Colon & Rectal Surgery 08/13/21 Staple Laster Relationship Specialty Start Date End Date Victoriano Chandler MD [address] [place] [address] [place] [address] Physician Dermatology 07/09/21 Times, Yoselin Ojeda MD [address] [place] [address] 75383 Physician Colon & Rectal Surgery 08/13/21 Staple Laster Relationship Specialty Start Date End Date Victoriano Chandler MD [address] [place] [address] [place] [address] Physician Dermatology 07/09/21 Times, Yoselin Ojeda MD [address] [place] [address] 11623 Physician Colon & Rectal Surgery 08/13/21 Staple Laster Relationship Specialty Start Date End Date Victoriano Chandler MD [address] [place] [address] [place] [address] Physician Dermatology 07/09/21 Times, Yoselin Ojeda MD [address] [place] [address] 56044 Physician Colon & Rectal Surgery 08/13/21 Mitra Ramos MD, PhD [address] [place] [address]88 Physician Radiation Oncology 10/07/22 Camron Roque, PharmD [address] [place] [address] [place] [address] Pharmacist Pharmacology and Toxicology 10/11/22 Naheed Vinson CPhT [address] [place] [address] [place] [address] Tech Pharmacology and Toxicology 10/11/22 Staple Laster Relationship Specialty Start Date End Date Victoriano Chandler MD [address] [place] [address] [place] [address] Physician Dermatology 07/09/21 Times, Yoselin Ojeda MD [address] [place] [address] 84262 Physician Colon & Rectal Surgery 08/13/21 Mitra Ramos MD, PhD [address] [place] [address] 59270 Physician Radiation Oncology 10/07/22 Camron Roque, PharmD [address] [place] [address] [place] [address] Pharmacist Pharmacology and Toxicology 10/11/22 Naheed Vinson CPhT [address] [place] [address] [place] [address] Tech Pharmacology and Toxicology 10/11/22 10/12/22 Amber Barakat CPhT Tech Pharmacology and Toxicology 10/12/22 Staple Laster Relationship Specialty Start Date End Date Victoriano Chandler MD [address] [place] [address] [address] [place], [facility] Physician Dermatology 07/09/21 Times, Yoselin Ojeda MD [address] [place], [place] [address] Physician Colon & Rectal Surgery 08/13/21 Mitra Ramos MD, PhD [address] [place] [address] Physician Radiation Oncology 10/07/22 Camron Roque, PharmD [address] [place] [address] [place] [address] Pharmacist Pharmacology and Toxicology 10/11/22 Amber Barakat CPhT Tech Pharmacology and Toxicology 10/12/22 Staple Laster Relationship Specialty Start Date End Date Victoriano Chandler MD [address] [place] [address] [place] [address] Physician Dermatology 07/09/21 Times, Yoselin Ojeda MD [address] [place] [address] Physician Colon & Rectal Surgery 08/13/21 Mitra Ramos MD, PhD [address] [place] [address] Physician Radiation Oncology 10/07/22 Camron Roque, PharmD [address] [place] [address] [place] [address] Pharmacist Pharmacology and Toxicology 10/11/22 Amber Barakat, Poppy Tech Pharmacology and Toxicology 10/12/22 Staple Laster Relationship Specialty Start Date End Date Victoriano Chandler MD [address] [place] [address] [place] [address] Physician Dermatology 07/09/21 Times, Yoselin Ojeda MD [address] [place] [address] 64070 Physician Colon & Rectal Surgery 08/13/21 Mitra Ramos MD, PhD [address] [place] [address] 78363 Physician Radiation Oncology 10/07/22 Camron Roque, PharmD [address] [place] [address] [place] [address] Pharmacist Pharmacology and Toxicology 10/11/22 Amber Barakat CPhT Tech Pharmacology and Toxicology 10/12/22 Staple Laster Relationship Specialty Start Date End Date Victoriano Chandler MD [address] [place] [address] [place] [address] Physician Dermatology 07/09/21 Times, Yoselin Ojeda MD [address] [place], [place] [address] Physician Colon & Rectal Surgery 08/13/21 Mitra Ramos MD, PhD [address] [place] [address] 43058 Physician Radiation Oncology 10/07/22 Camron Roque, PharmD [address] [place] [address] [place] [address] Pharmacist Pharmacology and Toxicology 10/11/22 Amber Barakat, Poppy Tech Pharmacology and Toxicology 10/12/22 Gabby Giles CPhT [address] [place] [address] [place] [address] Medication Photonics Engineering Technologist Pharmacology and Toxicology 10/27/22 Staple Laster Relationship Specialty Start Date End Date Victoriano Chandler MD [address] [place] [address] [place] [address] Physician Dermatology 07/09/21 Times, Yoselin Ojeda MD [address] [place] [address] 49048 Physician Colon & Rectal Surgery 08/13/21 Mitra Ramos MD, PhD [address] [place] [address] 76821 Physician Radiation Oncology 10/07/22 Camron Roque, PharmD [address] [place] [address] [place] [address] Pharmacist Pharmacology and Toxicology 10/11/22 Amber Barakat CPhT Tech Pharmacology and Toxicology 10/12/22 Gabby Giles CPhT [address] [place] [address] [place] [address] Medication Photonics Engineering Technologist Pharmacology and Toxicology 10/27/22 Staple Laster Relationship Specialty Start Date End Date Victoriano Chandler MD [address] [place] [address] [place] [address] Physician Dermatology 07/09/21 Times, Yoselin Ojeda MD [address] [place] [address] 17174 Physician Colon & Rectal Surgery 08/13/21 Mitra Ramos MD, PhD [address] [place] [address] 71424 Physician Radiation Oncology 10/07/22 Camron Roque, PharmD [address] [place] [address] [place] [address] Pharmacist Pharmacology and Toxicology 10/11/22 Amber Barakat CPhT Tech Pharmacology and Toxicology 10/12/22 Gabby Giles CPhT [address] [place] [address] [place] [address] Medication Photonics Engineering Technologist Pharmacology and Toxicology 10/27/22 Staple Laster Relationship Specialty Start Date End Date Victoriano Chandler MD [address] [place] [address] [place] [address] Physician Dermatology 07/09/21 Times, Yoselin Ojeda MD [address] [place] [address] 95522 Physician Colon & Rectal Surgery 08/13/21 Mitra Ramos MD, PhD [address] [place] [address] 65189 Physician Radiation Oncology 10/07/22 Camron Roque, PharmD [address] [place] [address] [place] [address] Pharmacist Pharmacology and Toxicology 10/11/22 Amber Barakat CPhT Tech Pharmacology and Toxicology 10/12/22 Gabby Giles CPhT [address] [place] [address] [place] [address] Medication Photonics Engineering Technologist Pharmacology and Toxicology 10/27/22 Staple Laster Relationship Specialty Start Date End Date Victoriano Chandler MD [address] [place] [address] [place] [address] Physician Dermatology 07/09/21 Times, Yoselin Ojeda MD [address] [place] [address] 59851 Physician Colon & Rectal Surgery 08/13/21 Mitra Ramos MD, PhD [address] [place] [address] 00443 Physician Radiation Oncology 10/07/22 Camron Roque, PharmD [address] [place] [address] [place] [address] Pharmacist Pharmacology and Toxicology 10/11/22 Amber Barakat CPhT Tech Pharmacology and Toxicology 10/12/22 Gabby Giles CPhT [address] [place] [address] [place] [address] Medication Photonics Engineering Technologist Pharmacology and Toxicology 10/27/22 Staple Laster Relationship Specialty Start Date End Date Victoriano Chandler MD [address] [place] [address] [place] [address] Physician Dermatology 07/09/21 Times, Yoselin Ojeda MD [address] [place] [address] 78717 Physician Colon & Rectal Surgery 08/13/21 Mitra Ramos MD, PhD [address] [place] [address] 04080 Physician Radiation Oncology 10/07/22 Camron Roque, PharmD [address] [place] [address] [place] [address] Pharmacist Pharmacology and Toxicology 10/11/22 Amber Barakat CPhT Tech Pharmacology and Toxicology 10/12/22 Gabby Giles CPhT [address] [place] [address] [place] [address] Medication Photonics Engineering Technologist Pharmacology and Toxicology 10/27/22 Dana Ordonez APRN-PSYCHOLOGIST [employer] [address] [place] [address] [place] [address] MOTOR BUILDER WINDER Hematology/Oncology 11/11/22 Staple Laster Relationship Specialty Start Date End Date Victoriano Chandler MD [address] [place] [address] [place] [address] Physician Dermatology 07/09/21 Times, Yoselin Ojeda MD [address] [place] [address] 77386 Physician Colon & Rectal Surgery 08/13/21 Mitra Ramos MD, PhD [address] [place] [address] 24215 Physician Radiation Oncology 10/07/22 Camron Roque, PharmD [address] [place] [address] [place] [address] Pharmacist Pharmacology and Toxicology 10/11/22 Amber Barakat CPhT Tech Pharmacology and Toxicology 10/12/22 Gabby Giles CPhT [address] [place] [address] [place] [address] Medication Photonics Engineering Technologist Pharmacology and Toxicology 10/27/22 Dana Ordonez APRN-PSYCHOLOGIST [employer] [address] [place] [address] [place] [address] MOTOR BUILDER WINDER Hematology/Oncology 11/11/22 Staple Laster Relationship Specialty Start Date End Date Victoriano Chandler MD [address] [place] [address] [place] [address] Physician Dermatology 07/09/21 Times, Yoselin Ojeda MD [address] [place] [address] 02132 Physician Colon & Rectal Surgery 08/13/21 Mitra Ramos MD, PhD [address] [place] [address] 29977 Physician Radiation Oncology 10/07/22 Camron Roque, PharmD [address] [place] [address] [place] [address] Pharmacist Pharmacology and Toxicology 10/11/22 Amber Barakat CPhT Tech Pharmacology and Toxicology 10/12/22 Gabby Giles CPhT [address] [place] [address] [place] [address] Medication Photonics Engineering Technologist Pharmacology and Toxicology 10/27/22 Dana Ordonez, MAMMOGRAPHY TECH-PSYCHOLOGIST [employer] [address] [place] [address] [place] [address] MOTOR BUILDER WINDER Hematology/Oncology 11/11/22 Staple Laster Relationship Specialty Start Date End Date Victoriano Chandler MD [address] [place] [address] [place] [address] Physician Dermatology 07/09/21 Times, Yoselin Ojeda MD [address] [place] [address] 03780 Physician Colon & Rectal Surgery 08/13/21 Mitra Ramos MD, PhD [address] [place] [address] 72802 Physician Radiation Oncology 10/07/22 Camron Roque, PharmD [address] [place] [address] [place] [address] Pharmacist Pharmacology and Toxicology 10/11/22 Amber Barakat CPhT Tech Pharmacology and Toxicology 10/12/22 Gabby Giles CPhT [address] [place] [address] [place] [address] Medication Photonics Engineering Technologist Pharmacology and Toxicology 10/27/22 Dana Ordonez APRN-PSYCHOLOGIST [employer] [address] [place] [address] [place] [address] MOTOR BUILDER W[employer]ER Hematology/Oncology 11/11/22 Staple Laster Relationship Specialty Start Date End Date Victoriano Chandler MD [address] [place] [address] [address] [place] [id number] Physician Dermatology 07/09/21 Times, Yoselin Ojeda MD [address] [place] [address] Physician Colon & Rectal Surgery 08/13/21 Mitra Ramos MD, PhD [address] [place] [address] 68401 Physician Radiation Oncology 10/07/22 Camron Roque, PharmD [address] [place] [address] [place] [address] Pharmacist Pharmacology and Toxicology 10/11/22 Amber Barakat CPhT Tech Pharmacology and Toxicology 10/12/22 Gabby Giles CPhT [address] [place] [address] [place] [address] Medication Photonics Engineering Technologist Pharmacology and Toxicology 10/27/22 Dana Ordonez APRN-PSYCHOLOGIST [employer] [address] [place] [address] [place] [address] MOTOR BUILDER WINDER Hematology/Oncology 11/11/22 Staple Laster Relationship Specialty Start Date End Date Victoriano Chandler MD [address] [place] [address] [place] [address] Physician Dermatology 07/09/21 Times, Yoselin Ojeda MD [address] [place] [address] 40321 Physician Colon & Rectal Surgery 08/13/21 Mitra Ramos MD, PhD [address] [place] [address] 18307 Physician Radiation Oncology 10/07/22 Camron Roque, PharmD [address] [place] [address] [place] [address] Pharmacist Pharmacology and Toxicology 10/11/22 Amber Barakat CPhT Tech Pharmacology and Toxicology 10/12/22 Gabby Giles CPhT [address] [place] [address] [place] [address] Medication Photonics Engineering Technologist Pharmacology and Toxicology 10/27/22 Dana Ordonez, MAMMOGRAPHY TECH-PSYCHOLOGIST [employer] [address] [place] [address] [place] [address] MOTOR BUILDER W[employer]ER Hematology/Oncology 11/11/22 Staple Laster Relationship Specialty Start Date End Date Victoriano Chandler MD [address] [place] [address] [place] [address] Physician Dermatology 07/09/21 Times, Yoselin Ojeda MD [address] [place] [address] 43283 Physician Colon & Rectal Surgery 08/13/21 Mitra Ramos MD, PhD [address] [place] [address] 03027 Physician Radiation Oncology 10/07/22 Camron Roque, PharmD [address] [place] [address] [place] [address] Pharmacist Pharmacology and Toxicology 10/11/22 Amber Barakat CPhT Tech Pharmacology and Toxicology 10/12/22 Gbaby Giles CPhT [address] [place] [address] [place] [address] Medication Photonics Engineering Technologist Pharmacology and Toxicology 10/27/22 Dana Ordonez, MAMMOGRAPHY TECH-PSYCHOLOGIST [employer] [address] [place] [address] [place] [address] MOTOR BUILDER WINDER Hematology/Oncology 11/11/22 Staple Laster Relationship Specialty Start Date End Date Victoriano Chandler MD [address] [place] [address] [place] [address] Physician Dermatology 07/09/21 Times, Yoselin Ojeda MD [address] [place] [address] 44493 Physician Colon & Rectal Surgery 08/13/21 Mitra Ramos MD, PhD [address] [place] [address] 71522 Physician Radiation Oncology 10/07/22 Camron Roque, PharmD [address] [place] [address] [place] [address] Pharmacist Pharmacology and Toxicology 10/11/22 Amber Barakat CPhT Tech Pharmacology and Toxicology 10/12/22 Gabby Giles CPhT [address] [place] [address] [address] [place] [phone] Medication Photonics Engineering Technologist Pharmacology and Toxicology 10/27/22 Dana Ordonez APRN-PSYCHOLOGIST [employer] [address] [place] [address] [address] [place] [phone] MOT[employer] BUILDER W[employer]ER Hematology/Oncology 11/11/22 Staple Laster Relationship Specialty Start Date End Date Victoriano Chandler MD [address] [place] [address] [address] [place] [phone] Physician Dermatology 07/09/21 Times, Yoselin Ojeda MD [address] [place] [address] Physician Colon & Rectal Surgery 08/13/21 Mitra Ramos MD, PhD [address] [place] [address] Physician Radiation Oncology 10/07/22 Camron Roque, PharmD [address] [place] [address] [address] [place] [phone] Pharmacist Pharmacology and Toxicology 10/11/22 Amber Barakat CPhT Tech Pharmacology and Toxicology 10/12/22 Gabby Giles CPhT [address] [place] [address] [address] [place] [phone] Medication Photonics Engineering Technologist Pharmacology and Toxicology 10/27/22 Dana Ordonez APRN-PSYCHOLOGIST [employer] [address] [place] [address] [address] [place] [phone] MOTOR BUILDER WINDER Hematology/Oncology 11/11/22 Staple Laster Relationship Specialty Start Date End Date Victoriano Chandler MD [address] [place] [address] [address] [place] [phone] Physician Dermatology 07/09/21 Times, Yoselin Ojeda MD [address] [place] [address] 33550 Physician Colon & Rectal Surgery 08/13/21 Mitra Ramos MD, PhD [address] [place] [address] 23471 Physician Radiation Oncology 10/07/22 Camron Roque, PharmD [address] [place] [address] [place] [address] Pharmacist Pharmacology and Toxicology 10/11/22 Amber Barakat CPhT Tech Pharmacology and Toxicology 10/12/22 Gabby Giles CPhT [address] [place] [address] [place] [address] Medication Photonics Engineering Technologist Pharmacology and Toxicology 10/27/22 Dana Ordonez, MAMMOGRAPHY TECH-PSYCHOLOGIST [employer] [address] [place] [address] [place] [address] MOT[employer] BUIL[employer] W[employer]ER Hematology/Oncology 11/11/22 Staple Laster Relationship Specialty Start Date End Date Victoriano Chandler MD [address] [place] [address] [place] [address] Physician Dermatology 07/09/21 Times, Yoselin Ojeda MD [address] [place] [address] 89587 Physician Colon & Rectal Surgery 08/13/21 Mitra Ramos MD, PhD [address] [place] [address] 10948 Physician Radiation Oncology 10/07/22 Camron Roque, PharmD [address] [place] [address] [place] [address] Pharmacist Pharmacology and Toxicology 10/11/22 Amber Barakat CPhT Tech Pharmacology and Toxicology 10/12/22 Gabby Giles CPhT [address] [place] [address] [place] [address] Medication Photonics Engineering Technologist Pharmacology and Toxicology 10/27/22 Dana Ordonez APRN-PSYCHOLOGIST [employer] [address] [place] [address] [place] [address] [employer] Hematology/Oncology 11/11/22 Staple Laster Relationship Specialty Start Date End Date Victoriano Chandler MD [address] [place] [address] [place] [address] Physician Dermatology 07/09/21 Times, Yoselin Ojeda MD [address] [place] [address] Physician Colon & Rectal Surgery 08/13/21 Mitra Ramos MD, PhD [address] [place] [address] Physician Radiation Oncology 10/07/22 Camron Roque, PharmD [address] [place] [address] [place] [address] Pharmacist Pharmacology and Toxicology 10/11/22 Amber Barakat CPhT Tech Pharmacology and Toxicology 10/12/22 Gabby Giles CPhT [address] [place] [address] [place] [address] Medication Photonics Engineering Technologist Pharmacology and Toxicology 10/27/22 Dana Ordonez APRN-PSYCHOLOGIST [facility] [address] [place] [address] [place] [address] MOTOR BUILDER WINDER Hematology/Oncology 11/11/22 Staple Laster Relationship Specialty Start Date End Date Victoriano Chandler MD [address] [place] [address] [place] [address] Physician Dermatology 07/09/21 Times, Yoselin Ojeda MD [address] [place] [address] Physician Colon & Rectal Surgery 08/13/21 Mitra Ramos MD, PhD [address] [place] [address] Physician Radiation Oncology 10/07/22 Camron Roque, GabeD [address] [place] [address] [address] [place] [phone] Pharmacist Pharmacology and Toxicology 10/11/22 Amber Barakat CPhT Tech Pharmacology and Toxicology 10/12/22 Gabby Giles CPhT [address] [place] [address] [address] [place] [phone] Medication Photonics Engineering Technologist Pharmacology and Toxicology 10/27/22 Dana Ordonez, MAMMOGRAPHY TECH-PSYCHOLOGIST [facility] [address] [place] [address] [place] [address] MOTOR BUILDER WINDER Hematology/Oncology 11/11/22 Staple Laster Relationship Specialty Start Date End Date Victoriano Chandler MD [address] [place] [address] [address] [place] [phone] Physician Dermatology 07/09/21 Times, Yoselin Ojeda MD [address] [place] [address] Physician Colon & Rectal Surgery 08/13/21 Mitra Ramos MD, PhD [address] [place] [address] Physician Radiation Oncology 10/07/22 Camron Roque, PharmD [address] [place] [address] [place] [address] Pharmacist Pharmacology and Toxicology 10/11/22 Amber Barakat CPhT Tech Pharmacology and Toxicology 10/12/22 Gabby Giles CPhT [address] [place] [address] [place] [address] Medication Photonics Engineering Technologist Pharmacology and Toxicology 10/27/22 Dana Ordonez, MAMMOGRAPHY TECH-PSYCHOLOGIST [facility] [address] [place] [address] [place] [address] MOTOR BUILDER WINDER Hematology/Oncology 11/11/22 Staple Laster Relationship Specialty Start Date End Date Victoriano Chandler MD [address] [place] [address] [place] [address] Physician Dermatology 07/09/21 Times, Yoselin Ojeda MD [address] [place] [address] Physician Colon & Rectal Surgery 08/13/21 Mitra Ramos MD, PhD [address] [place] [address] Physician Radiation Oncology 10/07/22 Camron Roque, PharmD [address] [place] [address] [place] [address] Pharmacist Pharmacology and Toxicology 10/11/22 02/08/23 Amber Barakat CPhT Tech Pharmacology and Toxicology 10/12/22 02/08/23 Gabby Giles CPhT [address] [place] [address] [place] [address] Medication Photonics Engineering Technologist Pharmacology and Toxicology 10/27/22 02/08/23 Dana Ordonez APRN-PSYCHOLOGIST [facility] [address] [place] [address] [place] [address] MOTOR BUILDER WINDER Hematology/Oncology 11/11/22 Staple Laster Relationship Specialty Start Date End Date Victoriano Chandler MD [address] [place] [address] [place] [address] Physician Dermatology 07/09/21 Times, Yoselin Ojeda MD [address] [place] [address] Physician Colon & Rectal Surgery 08/13/21 Mitra Ramos MD, PhD [address] [place] [address] Physician Radiation Oncology 10/07/22 Camron Roque, PharmD [address] [place] [address] [place] [address] Pharmacist Pharmacology and Toxicology 10/11/22 02/08/23 Amber Barakat CPhT Tech Pharmacology and Toxicology 10/12/22 02/08/23 Gabby Giles [address] [place] [address] Medication Photonics Engineering Technologist Pharmacology and Toxicology 10/27/22 02/08/23 Dana Ordonez APRN-PSYCHOLOGIST [facility] [address] [place] [address] [place] [address] MOTOR BUILDER WINDER Hematology/Oncology 11/11/22 Staple Laster Relationship Specialty Start Date End Date Victoriano Chandler MD [address] [place] [address] [place] [address] Physician Dermatology 07/09/21 Times, Yoselin Ojeda MD [address] [place] [address] Physician Colon & Rectal Surgery 08/13/21 Mitra Ramos MD, PhD [address] [place] [address]182 Physician Radiation Oncology 10/07/22 Dana Ordonez APRN-PSYCHOLOGIST [facility] [address] [place] [address] [place] [address] MOTOR BUILDER WINDER Hematology/Oncology 11/11/22 Staple Laster Relationship Specialty Start Date End Date Victoriano Chandler MD [address] [place] [address] [place] [address] Physician Dermatology 07/09/21 Times, Yoselin Ojeda MD [address] [place] [address] Physician Colon & Rectal Surgery 08/13/21 Mitra Ramos MD, PhD [address] [place] [address] Physician Radiation Oncology 10/07/22 Dana Ordonez APRN-PSYCHOLOGIST [facility] [address] [place] [address] [place] [address] MOTOR BUILDER WINDER Hematology/Oncology 11/11/22 Staple Laster Relationship Specialty Start Date End Date Victoriano Chandler MD [address] [place] [address] [place] [address] Physician Dermatology 07/09/21 Times, Yoselin Ojeda MD [address] [place], [place] [phone] Physician Colon & Rectal Surgery 08/13/21 Mitra Ramos MD, PhD [address] [place], [place] [phone] Physician Radiation Oncology 10/07/22 Dana Ordonez, MAMMOGRAPHY TECH-PSYCHOLOGIST [facility] [address] [place], [place] [phone] MOTOR BUILDER WINDER Hematology/Oncology 11/11/22 Team Status: Inactive Member Role Status Dates Chey Infante DO Attending Provider Active Start: October 24, 2023 End: October 24, 2023 Staple Laster Relationship Specialty Start Date End Date Gio Chan DO [address], [place] [address] PCP - General Family Medicine 08/09/23 Staple Laster Relationship Specialty Start Date End Date Gio Chan DO [address] [place] [address] PCP - General Family Medicine 08/09/23 Staple Laster Relationship Specialty Start Date End Date Gio Chan DO [address] [place] [address] PCP - General Family Medicine 08/09/23 Staple Laster Relationship Specialty Start Date End Date Gio Chan DO [address] [place] [address] PCP - General Family Medicine 08/09/23 Staple Laster Relationship Specialty Start Date End Date Gio Chan DO [address] [place] [address] PCP - General Family Medicine 08/09/23 Staple Laster Relationship Specialty Start Date End Date Gio Chan DO [address] [place] [address] PCP - General Family Medicine 08/09/23 Staple Laster Relationship Specialty Start Date End Date Gio Chan DO [address] [place] [address] PCP - General Family Medicine 08/09/23 Staple Laster Relationship Specialty Start Date End Date Gio Chan DO [address] [place] [address] PCP - General Family Medicine 08/09/23 Staple Laster Relationship Specialty Start Date End Date Gio Chan DO [address] [place] [address] PCP - General Family Medicine 08/09/23 Staple Laster Relationship Specialty Start Date End Date Gio Chan DO [address] [place] [address] PCP - General Family Medicine 08/09/23 Staple Laster Relationship Specialty Start Date End Date RicklcGio hilliard DO [address] [place] [address] PCP - General Family Medicine 08/09/23 Scheduled Active and Recently Administ ered Medications [...] doses, Starting on Sun07/19/21 at 1030, Until 07/20/21 at 2359, Severe Pain (pain score 7,8,9,10), [...] dose on Sun10/31/22 at 2100, Until Discontinued 28 (IV New Bag - Provider: Frank Koo RN)1040 (IV New Bag - Provider: Archana Albarran RN)214 (IV New Bag - Provider: Frank Koo RN) 1051 (IV New Bag - Provider: Jacques Child, MARLON)2200 (Due) docusate sodium (COLACE) capsule 100 mg, Oral, 2 TIMES DAILY, First dose on Sun10/31/22 at 2100, Until Discontinued 2044 (Given - Provider: Frank Koo RN) 0839 (Given - Provider: Archana Albarran RN)214 (Hold/Not Given - Provider: Frank Koo RN - Reason: Patient refused) 0900 (Hold/Not Given - Provider: Jacques Child RN - Reason: Patient refused)2099 (Due) famotidine (PEPCID) tablet 20 mg, Oral, DAILY, First dose on Sun10/31/22 at 2100, Until Discontinued 2044 (Given - Provider: Frank Koo RN) 0839 (Given - Provider: Archana Albarran, MARLON) 0825 (Given - Provider: Jacques Child RN) magnesium sulfate 4 GM/100ML in 100 mL ivpb (COMPLETED) 4,000 mg, Intravenous, ONCE, 1 dose, On Sun10/31/22 at 2099 2044 (IV New Bag - Provider: Frank Koo RN) nicotine (NICODERM CQ) 14 mg/24HR patch 14 mg, Transdermal, DAILY, First dose on Sun11/01/22 at 0930, Until Discontinued 912 (Patch Applied - Provider: Archana Albarran RN) 08 (Patch Removal - Provider: Jacques Child RN)08 (Patch Applied - Provider: Jacques Child RN) Normal consistency supplement (CANCELED) Oral, 2 TIMES DAILY WITH MEALS, First dose on Sun11/01/22 at 1700, Until Discontinued, Normal Consistency Supplement: Magic Cup 1700 (Given - Provider: Archana Albarran RN) Normal consistency supplement Oral, 3 TIMES DAILY WITH MEALS, First dose (after last modification) on Sun11/02/22 at 0800, Until Discontinued, Normal Consistency Supplement: Magic Cup 0800 (Given - Provider: Jacques Child RN)1200 (Given - Provider: Jacques Child RN)1700 (Due) sertraline (ZOLOFT) tablet 50 mg, Oral, DAILY, First dose on Sun10/31/22 at 2100, Until Discontinued 2044 (Given - Provider: Frank Koo RN) 0839 (Given - Provider: Archana Albarran, MARLON) 0825 (Given - Provider: Jacques Child RN) umeclidinium (INCRUSE ELLIPTA) 62.5 MCG/ACT inhalation [...] ONCE, 1 dose, On Sun10/31/22 at 2130 205 (IV New Bag - Provider: Frank Koo, RN) vancomycin (VANCOCIN) 750 mg/150 mL iv soln (ROOM TEMP PREMIX) (CANCELED) 750 mg, Intravenous, EVERY 12 HOURS, First dose on Sun11/01/22 at 1100, Until Discontinued 1038 (IV New Bag - Provider: Archana Albarran RN)2324 (IV New Bag - Provider: Frank Koo, MARLON) vancomycin lab draw (COMPLETED) Other, ONCE, 1 dose, On Sun11/01/22 at 0900 0900 (Given - Provider: Archana Albarran RN) PRN Medication Order 10/31/2022 2022 11/02/2022 albuterol (PROVENTIL HFA) 108 (90 Base) MCG/ACT HFA inhaler 2 Puff, Inhalation, EVERY 4 HOURS PRN, Starting on Sun10/31/22 at 202, Until Discontinued, Wheezing aquaphor ointment Topical, 3 TIMES DAILY PRN, Starting on Sun11/01/22 at 1432, Until Discontinued, Dry Skin 1553 (Given - Provider: Archana Albarran, MARLON) HYDROmorphone HCl PF (DILAUDID) 1 MG/ML injection 1 mg, Intravenous Push, EVERY 3 HOURS PRN, Starting on Sun11/01/22 at 1046, Until Sun11/03/22 at 1045, Breakthrough Pain 1147 (Given - Provider: Archana Albarran, MARLON) hydrOXYzine (ATARAX) tablet 25 mg, Oral, EVERY 6 HOURS PRN, Starting on Sun10/31/22 at 2027, Until Discontinued, Anxiety 2054 (Given - Provider: Frank Koo, MARLON) 183 (Given - Provider: Archana Albarran RN) 0530 (Given - Provider: Frank Koo, MARLON)1203 (Given - Provider: Jacques Child RN) lidocaine-prilocaine [...] on Sun10/31/22 at 2026, Until Discontinued, Nausea 205 (Given - Provider: Frank Koo RN) 0208 (Given - Provider: Frank Koo RN)1147 (Given - Provider: Archana Albarran RN)2145 (Given - Provider: Frank Koo RN) 0530 (Given - Provider: Frank Koo RN)1250 (Given - Provider: Jacques Child RN) oxyCODONE immediate release tablet (CANCELED) 5 mg, Oral, EVERY 4 HOURS PRN, Starting on Sun10/31/22 at 2027, Until Sun11/01/22 at 0626, Severe Pain (pain score 7,8,9,10) 2054 (Given - Provider: Frank Koo RN) [...] section and content) DATE CREATED AUTHOR 12/03/2021 [facility] DATE CREATED AUTHOR AUTHOR'S ORGANIZ ATION 03/13/2022 [facility] DATE CREATED AUTHOR AUTHOR'S ORGANIZ ATION 07/27/2022 [facility] DATE CREATED AUTHOR AUTHOR'S ORGANIZ ATION 06/16/2023 [facility] DATE CREATED AUTHOR AUTHOR'S ORGANIZ ATION 10/28/2023 [facility] DATE CREATED AUTHOR AUTHOR'S ORGANIZ ATION 03/21/2024 [facility] DATE CREATED AUTHOR AUTHOR'S ORGANIZ ATION 03/22/2024 [facility] FOR RECORDS PERTAINING TO PATIENTS WHO ARE [...] BE BASED ON THE PRIMARY CLINICAL RECORDS. [employer] provides no warranty or guarantee of the accuracy or completeness of information in this document.
[2024-05-13 10:15] LABS: Eosinophils Absolute Auto 0.1 10^3/uL (0.0-0.7); Eosinophils Percent Auto 2.6 % (0.9-7.0); Hemoglobin 14.9 g/dL (12.0-16.0); Immature Granulocytes Abs Auto 0.02 10^3/uL (0.00-0.03); Immature Granulocytes Pct Auto 0.5 % (0.0-0.5); Lymphocytes Absolute Auto 0.5 10^3/uL (1.2-3.8); Lymphocytes Percent Auto 13.1 % (20.5-60.0); Mean Corpuscular HGB Conc 33.9 g/dL (29.9-35.2); Mean Corpuscular Hemoglobin 33.9 pg (26.7-34.0); Mean Platelet Volume 9.4 fL (9.5-13.5); Monocytes Absolute Auto 0.5 10^3/uL (0.3-0.8); Monocytes Percent Auto 11.8 % (1.7-12.0); Neutrophils Absolute Auto 2.8 10^3/uL (1.4-6.5); Platelet Count 128 10^3/uL (150-450); Red Cell Distribution Width 14.1 % (11.0-15.0); White Blood Count 3.9 10^3/uL (4.0-11.0)
[2024-05-13 11:06] LABS: Alanine Aminotransferase 20 U/L (14-59); Albumin Globulin Ratio 1.1; Albumin Level 4.1 g/dL (3.4-5.0); Alkaline Phosphatase 189 U/L (46-116); Aspartate Amino Transferase 25 U/L (15-37); BUN Creatinine Ratio 14.4; Bilirubin Total 0.8 mg/dL (0.2-1.0); Calcium 9.2 mg/dL (8.5-10.1); Carbon Dioxide 25.7 mmol/L (21.0-32.0); Chloride 104 mmol/L (98-107); Estimated GFR (African America 41 (>=60 mL/min/1.73m^2); Estimated GFR (Non-African Ame 34 (>=60 mL/min/1.73m^2); Globulin 3.7 g/dL; Glucose 104 mg/dL (74-106); Potassium 4.7 mmol/L (3.5-5.1); Sodium 142 mmol/L (136-145); Total Protein 7.8 g/dL (6.4-8.2)
[2024-05-14 04:07] LABS: CEA 8.6 ng/mL (0.0-4.7); Vitamin B12 207 pg/mL (232-1245)
== END 2024-05-14 13:24 | disposition home or self-care (01) ==
LOC: HEMC 07:42
PROVIDERS: PCP Family Medicine; Visit Provider Internal Medicine Hematology & Oncology
DX: C21.0 Malignant neoplasm of anus, unspecified (principal); D69.6 Thrombocytopenia, unspecified; D64.9 Anemia, unspecified; K90.9 Intestinal malabsorption, unspecified; Z87.891 Personal history of nicotine dependence; Z86.711 Personal history of pulmonary embolism
CPT/HCPCS: 36415; 80053; 82306; 82378; 82607; 82728; 82746; 83540; 83550; 85025; G0463

== ENCOUNTER 2024-07-21 15:10 | Outpatient (OUT) | payer MEDICARE, OTHER, SELFPAY ==
--- NOTE | 2024-07-21 15:21 | PE_ITS ---
The [address] [address] Patient Name: LESVIA MALDONADO MRN: [id number] date: 1960 Sex: F Assigned Patient Location: PETCT Current Patient Location: Accession/Order Number: [id number] Exam Date: 07/22/2024 08:11 Report Date: 07/22/2024 08:35 At the request of: LAWANDA CA MD Procedure: PET skull to mid thigh PET/CT WITH FUSION CLINICAL DATA: Follow-up rectal cancer COMPARISON: 01/28/2024 Following the intravenous administration of 12.24 mCi of FDG, SPECT imaging in 3 planes was performed from the level the orbits through the groin. Patient's blood glucose level at the time of injection was 106 mg/dL. Spiral unenhanced CT was also performed for anatomic localization. The PET and CT images were fused. This CT exam was performed using one or more following dose reduction techniques: Automated exposure control, adjustment of the mA and/or kV according to patient size, or use of iterative reconstruction technique. NECK: There is physiologic oropharyngeal uptake. No pathologic adenopathy is identified CHEST: There are no enlarged or hypermetabolic mediastinal, hilar or axillary lymph nodes. No abnormal lung FDG uptake is seen. 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 Obstructive lung disease and apical scarring is seen. ABDOMEN/PELVIS: There is no abnormal hypermetabolism associated with the liver or adrenal glands. No enlarged or hypermetabolic abdominal or pelvic lymphadenopathy is seen. There is a focus of increased uptake at the distal rectum that was not seen previously. The SUV is 6.6. There is physiologic urinary tract and GI uptake. PET/PET skull to mid thigh IMPRESSION: NEW FOCUS OF INCREASED FDG UPTAKE AT THE LOWER RECTUM. CLINICAL CORRELATION WILL BE NEEDED TO EXCLUDE THE POSSIBILITY OF RECURRENT NEOPLASM. NO SUSPECTED METASTATIC DISEASE. Impression dictated by: Miryam Fuller M.D.07/22/2024 8:35 AM Dictation Location: [place] [address] Electronically authenticated by: [id number] Y Date: 07/22/2024 08:35
== END 2024-07-21 15:11 | disposition home or self-care (01) ==
LOC: PETCT 15:11
PROVIDERS: PCP Family Medicine; Visit Provider Internal Medicine Hematology & Oncology
DX: C21.8 Malignant neoplasm of overlapping sites of rectum, anus and anal canal (principal)
CPT/HCPCS: 78815; A9552

== ENCOUNTER 2024-08-05 07:35 | Outpatient (RCR) | payer MEDICARE, OTHER, SELFPAY ==
[2024-08-05 12:41] LABS: Basophils Percent Auto 0.7 % (0.2-2.0); Eosinophils Absolute Auto 0.1 10^3/uL (0.0-0.7); Eosinophils Percent Auto 2.1 % (0.9-7.0); Hematocrit 42.6 % (36.0-48.0); Hemoglobin 14.7 g/dL (12.0-16.0); Immature Granulocytes Abs Auto 0.02 10^3/uL (0.00-0.03); Immature Granulocytes Pct Auto 0.4 % (0.0-0.5); Lymphocytes Absolute Auto 0.7 10^3/uL (1.2-3.8); Lymphocytes Percent Auto 13.2 % (20.5-60.0); Mean Corpuscular HGB Conc 34.5 g/dL (29.9-35.2); Mean Corpuscular Hemoglobin 35.9 pg (26.7-34.0); Mean Corpuscular Volume 104.2 fL (81.0-99.0); Mean Platelet Volume 9.8 fL (9.5-13.5); Monocytes Absolute Auto 0.6 10^3/uL (0.3-0.8); Monocytes Percent Auto 10.8 % (1.7-12.0); Neutrophils Absolute Auto 3.9 10^3/uL (1.4-6.5); Neutrophils Percent Auto 72.8 % (43.0-75.0); Platelet Count 120 10^3/uL (150-450); Red Blood Count 4.09 10^6/uL (4.20-5.40); Red Cell Distribution Width 14.4 % (11.0-15.0); White Blood Count 5.4 10^3/uL (4.0-11.0)
[2024-08-05 12:56] LABS: Alanine Aminotransferase 23 U/L (14-59); Albumin Globulin Ratio 1.2; Albumin Level 4.1 g/dL (3.4-5.0); Alkaline Phosphatase 163 U/L (46-116); Anion Gap 14.1; Aspartate Amino Transferase 32 U/L (15-37); BUN Creatinine Ratio 10.9; Bilirubin Total 0.7 mg/dL (0.2-1.0); Calcium 9.6 mg/dL (8.5-10.1); Carbon Dioxide 25.6 mmol/L (21.0-32.0); Chloride 106 mmol/L (98-107); Estimated GFR (African America 43 (>=60 mL/min/1.73m^2); Estimated GFR (Non-African Ame 36 (>=60 mL/min/1.73m^2); Globulin 3.4 g/dL; Glucose 107 mg/dL (74-106); Potassium 4.7 mmol/L (3.5-5.1); Sodium 141 mmol/L (136-145); Total Protein 7.5 g/dL (6.4-8.2)
== END 2024-08-06 23:59 | disposition home or self-care (01) ==
LOC: HEMC 07:35
PROVIDERS: PCP Family Medicine; Visit Provider Internal Medicine Hematology & Oncology
DX: C21.0 Malignant neoplasm of anus, unspecified (principal); D64.9 Anemia, unspecified; D69.6 Thrombocytopenia, unspecified; K90.9 Intestinal malabsorption, unspecified; Z87.891 Personal history of nicotine dependence; Z86.711 Personal history of pulmonary embolism; Z87.01 Personal history of pneumonia (recurrent); F10.90 Alcohol use, unspecified, uncomplicated; N18.9 Chronic kidney disease, unspecified; Z92.21 Personal history of antineoplastic chemotherapy; Z92.3 Personal history of irradiation
CPT/HCPCS: 36415; 80053; 85025; G0463

== ENCOUNTER 2024-11-18 07:33 | Outpatient (RCR) | payer MEDICARE, OTHER, SELFPAY ==
[2024-11-17 12:25] LABS: Hematocrit 41.8 % (36.0-48.0); Hemoglobin 14.5 g/dL (12.0-16.0); Mean Corpuscular HGB Conc 34.7 g/dL (29.9-35.2); Mean Corpuscular Hemoglobin 38.4 pg (26.7-34.0); Mean Corpuscular Volume 110.6 fL (81.0-99.0); Platelet Count 134 10^3/uL (150-450); Red Blood Count 3.78 10^6/uL (4.20-5.40); White Blood Count 5.1 10^3/uL (4.0-11.0)
[2024-11-17 12:47] LABS: Iron 129.0 ug/dL (50.0-170.0); Percent Iron Saturation 37.5 %; Total Iron Binding Capacity 344.0 ug/dL (250.0-450.0)
[2024-11-17 12:52] LABS: Alanine Aminotransferase 48 U/L (14-59); Albumin Globulin Ratio 1.2; Albumin Level 4.2 g/dL (3.4-5.0); Alkaline Phosphatase 166 U/L (46-116); Anion Gap 16.6; Aspartate Amino Transferase 42 U/L (15-37); Blood Urea Nitrogen 20.0 mg/dL (7.0-18.0); Calcium 9.1 mg/dL (8.5-10.1); Carbon Dioxide 23.6 mmol/L (21.0-32.0); Chloride 105 mmol/L (98-107); Estimated GFR (African America 46 (>=60 mL/min/1.73m^2); Estimated GFR (Non-African Ame 38 (>=60 mL/min/1.73m^2); Globulin 3.4 g/dL; Glucose 121 mg/dL (74-106); Potassium 4.2 mmol/L (3.5-5.1); Sodium 141 mmol/L (136-145); Total Protein 7.6 g/dL (6.4-8.2)
[2024-11-17 13:55] LABS: Basophils Abs Manual 0.00 10^3/uL (0.00-0.10); Basophils Percent Manual 0.0 % (0.2-2.0); Eosinophils Absolute Manual 0.30 10^3/uL (0.00-0.70); Eosinophils Percent Manual 6.0 % (0.9-7.0); Lymphocytes Absolute Manual 1.12 10^3/uL (1.20-3.80); Lymphocytes Percent Manual 22.0 % (20.5-60.0); Monocytes Absolute Manual 0.30 10^3/uL (0.30-0.80); Monocytes Percent Manual 6.0 % (1.7-12.0); Segmented Neut Absolute Manual 3.36 10^3/uL (1.4-6.5); Segmented Neutrophils % Manual 66.0 (43.0-75.0)
[2024-11-17 13:59] LABS: Ferritin 739.0 ng/mL (8.0-252.0)
== END 2024-12-07 23:59 | disposition home or self-care (01) ==
LOC: HEMC 07:33
PROVIDERS: PCP Family Medicine; Visit Provider Internal Medicine Hematology & Oncology
DX: C21.1 Malignant neoplasm of anal canal (principal); D64.9 Anemia, unspecified; D69.6 Thrombocytopenia, unspecified; K90.9 Intestinal malabsorption, unspecified; N18.9 Chronic kidney disease, unspecified; Z86.711 Personal history of pulmonary embolism; Z87.01 Personal history of pneumonia (recurrent); D75.89 Other specified diseases of blood and blood-forming organs
CPT/HCPCS: 36415; 80053; 82728; 83540; 83550; 85007; 85027; G0463

== ENCOUNTER 2025-03-25 11:51 | Outpatient (OUT) | payer MEDICARE, OTHER, SELFPAY ==
--- OUTSIDE RECORDS SUMMARY | 2023-10-09 08:00 | XMS_ITS ---
Author Organization The [facility] in [place] Address [address] [place] [address] Care Team Providers Care Aerial Crop Duster Name Role Phone Gio Chan DO Primary Care Provider Unavail able Felicia Mckeon Unavailable [phone] REASON FOR VISIT MD Encounters Encounter Location Date Provider Diagnosis [facility] [address] [place] [address] 10/09/2023 Felicia Mckeon Plan Of Treatment Next Appt Details Provider Name:FELICIA LOWERY , 03/31/2025 01:30:00 PM, [address] [place], [address], Progress Notes * Amber MALDONADO MDOB: [birth year] (64 yo F)Acc No.[id number]:10/09/2023 UNLOCKED PROGRESS NOTE Progress Notes Patient: Chaitanya Amber LAI :?Felicia Lowery M.D.:1960???Age:62 Y ???Sex:FemaleDate:10/09/2023hone:[phone]:[address] [place], [id number]:Gio Chan DO Subjective: * Chief Complaints: * 1 . MD. * Medical History: Objective: * Vitals: Assessment: Plan: * Treatment: * * Electronic signature of Felicia Mckeon MD, [id number] on 03/25/2025 at 11:55 AM ESTSign off status: PendingVisit Status:?CONFPHONE (Voice) * Provider: Mine Lowery M.D. Date: 0 10/09/2023 Generated for Printing/Faxing/eTransmitting on:?03/25/2025 11:55 AM EST
--- OUTSIDE RECORDS SUMMARY | 2023-11-06 05:30 | XMS_ITS ---
Author Organization The [facility] in [place] Address [address] [place] [address] Care Team Providers Care Supervisor Dyer Name Role Phone Gio Chan DO Primary Care Provider Unavail able Felicia Mckeon Unavailable [phone] REASON FOR VISIT MD Encounters Encounter Location Date Provider Diagnosis [facility] [address] [place] [address] 11/06/2023 Felicia Mckeon Plan Of Treatment Next Appt Details Provider Name:FELICIA LOWERY , 03/31/2025 01:30:00 PM, [address] [place], [address], Progress Notes * Amber MALDONADO MDOB: [birth year] (64 yo F)Acc No.[id number]:11/06/2023 UNLOCKED PROGRESS NOTE Progress Notes Patient: Chaitanya Amber LAI :?Felicia Lowery M.D.:1960???Age:63 Y ???Sex:FemaleDate:11/06/2023hone:[phone]:[address] [place], [id number]:Gio Chan DO Subjective: * Chief Complaints: * 1 . MD. * Medical History: Objective: * Vitals: Assessment: Plan: * Treatment: * * Electronic signature of Felicia Mckeon MD, [id number] on 03/25/2025 at 11:54 AM ESTSign off status: PendingVisit Status:?PEN (Pending) * Provider: Mine Lowery M.D. Date: 0 11/06/2023 Generated for Printing/Faxing/eTransmitting on:?03/25/2025 11:54 AM EST
--- OUTSIDE RECORDS SUMMARY | 2024-03-27 08:00 | XMS_ITS ---
Author Organization [facility] Address [address] [place] [address] Care Team Providers Care Swamper Name Role Phone Jose Quezada Primary Care Provider REASON FOR VISIT CROWN PREP Encounters Encounter Location Date Provider [address] [address] 03/27/2024 Jose Quezada Plan Of Treatment Next Appt Details Provider Name:Maria R Crowder, 02:00:00 PM, [address], [place], [address], Provider Name:Sultana Hernandez, 07/29/2025 03:30:00 PM, [address] [place], [address], Progress Notes * LESVIA MALDONADO MDOB: [birth year] (64 yo F)Acc No.[id number]:03/27/2024 Patient:?LESVIA MALDONADO :?CURT PrinceOB:1960???Age:63 Y ???Sex:FemaleDate:03/27/2024hone:[phone]:[address], [id number] Subjective: * Chief Complaints: * C ROWN PREP * Electronic signature of Jose Quezada DDS on 03/25/2025 at 11:54 AM ESTSign off status: Pending * Provider: Mine Quezada DDS Date: 05/28/2023 Generated for Printing/Faxing/eTransmitting on:?03/25/2025 11:54 AM EST
--- OUTSIDE RECORDS SUMMARY | 2024-05-13 05:30 | XMS_ITS ---
Author Organization The [facility] in [place] Address [address] [place] [address] Care Team Providers Care Sawdust Drier Name Role Phone Gio Chan DO Primary Care Provider Unavail able Felicia Mckeon Unavailable [phone] REASON FOR VISIT MD Encounters Encounter Location Date Provider Diagnosis [facility] [address] [place] [address] 05/13/2024 Felicia Mckeon Plan Of Treatment Next Appt Details Provider Name:FELICIA LOWERY , 03/31/2025 01:30:00 PM, [address] [place], [address], Progress Notes * Amber MALDONADO MDOB: [birth year] (64 yo F)Acc No.[id number]:05/13/2024 UNLOCKED PROGRESS NOTE Progress Notes Patient: Chaitanya Amber LAI :?Felicia Lowery M.D.:1960???Age:63 Y ???Sex:FemaleDate:05/13/2024Phone:[phone]:[address] [place], [id number]:Gio Chan DO Subjective: * Chief Complaints: * 1 . MD. * Medical History: Objective: * Vitals: Assessment: Plan: * Treatment: * * Electronic signature of Felicia Mckeon MD, [id number] on 03/25/2025 at 11:55 AM ESTSign off status: PendingVisit Status:?CONFPHONE (Voice) * Provider: Mine Lowery M.D. Date: 0 05/13/2024 Generated for Printing/Faxing/eTransmitting on:?03/25/2025 11:55 AM EST
--- OUTSIDE RECORDS SUMMARY | 2024-08-05 08:00 | XMS_ITS ---
Author Organization The [facility] in [place] Address [address] [place] [address] Care Team Providers Care Correction Officer Supervisor Name Role Phone Gio Chan DO Primary Care Provider Unavail able Felicia Mckeon Unavailable [phone] REASON FOR VISIT MD Encounters Encounter Location Date Provider Diagnosis [facility] Oncology [address] [place] [address] 08/05/2024 Felicia Mckeon Plan Of Treatment Next Appt Details Provider Name:FELICIA LOWERY , 03/31/2025 01:30:00 PM, [address] [place], [address], Progress Notes * Amber MALDONADO MDOB: [birth year] (64 yo F)Acc No.[id number]:08/05/2024 UNLOCKED PROGRESS NOTE Progress Notes Patient: Chaitanya Amber LAI :?Felicia Lowery M.D.:1960???Age:63 Y ???Sex:FemaleDate:08/05/2024Phone:[phone]:[address] [place], [place]Zvo:Gio Chan DO Subjective: * Chief Complaints: * 1 . MD. * Medical History: Objective: * Vitals: Assessment: Plan: * Treatment: * * Electronic signature of Felicia Mckeon MD, [id number] on 03/25/2025 at 11:55 AM ESTSign off status: PendingVisit Status:?VOICEMSG (Voice) * Provider: Mine Lowery M.D. Date: 0 08/05/2024 Generated for Printing/Faxing/eTransmitting on:?03/25/2025 11:55 AM EST
--- OUTSIDE RECORDS SUMMARY | 2024-10-23 09:15 | XMS_ITS ---
Author Organization The [facility] in [place] Address [address] [place] [address] Care Team Providers Care Secondary School Registrar Name Role Phone Gio Chan DO Primary Care Provider Unavail able Felicia Mckeon Unavailable [phone] REASON FOR VISIT MD Encounters Encounter Location Date Provider Diagnosis [facility] Oncology [address] [place] [address] 10/23/2024 Felicia Mckeon Plan Of Treatment Next Appt Details Provider Name:FELICIA LOWERY , 03/31/2025 01:30:00 PM, [address] [place], [address], Progress Notes * Amber MALDONADO MDOB: [birth year] (64 yo F)Acc No.[id number]:10/23/2024 UNLOCKED PROGRESS NOTE Progress Notes Patient: Chaitanya Amber LAI :?Felicia Lowery M.D.:1960???Age:63 Y ???Sex:FemaleDate:10/23/2024Phone:[phone]:[address] [place], [place]Lmt:Gio Chan DO Subjective: * Chief Complaints: * 1 . MD. * Medical History: Objective: * Vitals: Assessment: Plan: * Treatment: * * Electronic signature of Felicia Mckeon MD, [id number] on 03/25/2025 at 11:55 AM ESTSign off status: PendingVisit Status:?CANC (Cancelled) * Provider: Mine Lowery M.D. Date: 0 10/23/2024 Generated for Printing/Faxing/eTransmitting on:?03/25/2025 11:55 AM EST
--- OUTSIDE RECORDS SUMMARY | 2024-10-28 09:00 | XMS_ITS ---
Author Organization The [facility] in [place] Address [address] [place] [address] Care Team Providers Care Human Factors Scientist Name Role Phone Gio Chan DO Primary Care Provider Unavail able Felicia Mckeon Unavailable [phone] REASON FOR VISIT MD Encounters Encounter Location Date Provider Diagnosis [facility] Oncology [address] [place] [address] 10/28/2024 Felicia Mckeon Plan Of Treatment Next Appt Details Provider Name:FELICIA LOWERY , 03/31/2025 01:30:00 PM, [address] [place], [address], Progress Notes * Amber MALDONADO MDOB: [birth year] (64 yo F)Acc No.[id number]:10/28/2024 UNLOCKED PROGRESS NOTE Progress Notes Patient: Chaitanya Amber LAI :?Felicia Lowery M.D.:1960???Age:63 Y ???Sex:FemaleDate:10/28/2024Phone:[phone]:[address] [place], [place]Gmo:Gio Chan DO Subjective: * Chief Complaints: * 1 . MD. * Medical History: Objective: * Vitals: Assessment: Plan: * Treatment: * * Electronic signature of Felicia Mckeon MD, [id number] on 03/25/2025 at 11:56 AM ESTSign off status: PendingVisit Status:?CANC (Cancelled) * Provider: Mine Lowery M.D. Date: 0 10/28/2024 Generated for Printing/Faxing/eTransmitting on:?03/25/2025 11:56 AM EST
--- OUTSIDE RECORDS SUMMARY | 2024-11-10 08:00 | XMS_ITS ---
Author Organization [facility] Address [address] [place] [address] Care Team Providers Care Grassroots Organizer Name Role Phone Jose Quezada Primary Care Provider REASON FOR VISIT CROWN PREP Encounters Encounter Location Date Provider Diagnosis [address] [address] 11/10/2024 Jose Quezada Plan Of Treatment Next Appt Details Provider Name:Maria R Crowder, 02:00:00 PM, [address], [place], [address], Provider Name:Sultana Hernandez, 07/29/2025 03:30:00 PM, [address] [place], [address], Progress Notes * LESVIA MALDONADO MDOB: [birth year] (64 yo F)Acc No.[id number]:11/10/2024 Patient:?LESVIA MALDONADO :?CURT PrinceOB:1960???Age:64 Y ???Sex:FemaleDate:11/10/2024Phone:[phone]:[address], [place] Subjective: * Chief Complaints: * C ROWN PREP * Electronic signature of Jose Quezada DDS on 03/25/2025 at 11:57 AM ESTSign off status: Pending * Provider: Mine Quezada DDS Date: 0 11/10/2024 Generated for Printing/Faxing/eTransmitting on:?03/25/2025 11:57 AM EST
--- OUTSIDE RECORDS SUMMARY | 2024-11-18 08:45 | XMS_ITS ---
Author Organization [facility] [place] Address [address] [place] [address] Care Team Providers Care Residential Finish Carpenter Name Role Phone Gio Chan DO Primary Care Provider Unavail able Felicia Mckeon Unavailable [phone] REASON FOR VISIT MD Encounters Encounter Location Date Provider Diagnosis The [facility] Oncology [address] [place] [address] 11/18/2024 Felicia Mckeon Plan Of Treatment Next Appt Details Provider Name:FELICIA LOWERY , 03/31/2025 01:30:00 PM, [address] [place], [address], Progress Notes * Amber MALDONADO MDOB: [birth year] (64 yo F)Acc No.[id number]:11/18/2024 UNLOCKED PROGRESS NOTE Progress Notes Patient: Chaitanya Amber LAI :?Felicia Lowery M.D.:1960???Age:64 Y ???Sex:FemaleDate:11/18/2024Phone:[phone]:[address] [place], [place]Hsy:Gio Chan DO Subjective: * Chief Complaints: * 1 . MD. * Medical History: Objective: * Vitals: Assessment: Plan: * Treatment: * * Electronic signature of Felicia Mckeon MD, [id number] on 03/25/2025 at 11:56 AM ESTSign off status: PendingVisit Status:?CONFPHONE (Voice) * Provider: Mine Lowery M.D. Date: 0 11/18/2024 Generated for Printing/Faxing/eTransmitting on:?03/25/2025 11:56 AM EST
--- OUTSIDE RECORDS SUMMARY | 2024-12-09 08:00 | XMS_ITS ---
Author Organization [facility] Servic es Address [address] [place] [address] Care Team Providers Care Inspector Air Carrier Name Role Phone Jose Quezada Primary Care Provider REASON FOR VISIT CROWN SEAT Encounters Encounter Location Date Provider Diagnosis [address] [place] [address] 12/09/2024 Jose Quezada Plan Of Treatment Next Appt Details Provider Name:Maria R Crowder, 02:00:00 PM, [address], [place], [address], Provider Name:Sultana Hernandez, 07/29/2025 03:30:00 PM, [address] [place], [address], Progress Notes * LESVIA MALDONADO MDOB: [birth year] (64 yo F)Acc No.[id number]:12/09/2024 Patient:?LESVIA MALDONADO :?CURT PrinceOB:1960???Age:64 Y ???Sex:FemaleDate:12/09/2024Phone:[phone]:[address], [place] Subjective: * Chief Complaints: * C ROWN SEAT * Electronic signature of Jose Quezada DDS on 03/25/2025 at 11:54 AM ESTSign off status: Pending * Provider: Mine Quezada DDS Date: 0 12/09/2024 Generated for Printing/Faxing/eTransmitting on:?03/25/2025 11:54 AM EST
--- OUTSIDE RECORDS SUMMARY | 2025-01-08 05:00 | XMS_ITS ---
Author Organization [facility] Servic es Address [address] [place] [address] Care Team Providers Care Netbackup Engineer Name Role Phone Jose Quezada Primary Care Provider [phone] [address] Esteban [phone] REASON FOR VISIT CRACKED TOOTH/PERIODIC Encounters Encounter Location Date Provider Diagnosis [facility] [address] [place] [address] 01/08/2025 Claritza Esteban Plan Of Treatment Next Appt Details Provider Name:Maria R Crowder, 02:00:00 PM, [address] [place], [address], Provider Name:Sultana Hernandez, 07/29/2025 03:30:00 PM, [address] [place], [address], Progress Notes * LESVIA MALDONADO MDOB: [birth year] (64 yo F)Acc No.[id number]:01/08/2025 Patient:?LESVIA MALDONADO :?Claritza EstebanDOB:1960???Age:64 Y???Sex: FemaleDate:01/08/2025Phone:[phone]:[address] [id number]:Agnish M Gholekar Subjective: * Chief Complaints: * C RACKED TOOTH/PERIODIC Billing Information: * Procedure Codes: * Electronic signature of Claritza Esteban DMD on 03/25/2025 at 11:55 AM ESTSign off status: Pending * Provider: Akash Esteban Date: Generated for Printing/Faxing/eTransmitting on:?03/25/2025 11:55 AM EST
--- OUTSIDE RECORDS SUMMARY | 2025-03-13 11:30 | XMS_ITS | Encounter Summary ---
Author Organization [facility] tem Address [id number] [place] [address] Care Team Providers Care Overlock Hemmer Name Role Phone Gio Chan DO Primary Care Provider + [phone] Reason for Visit * ReasonCommentsmedication reviewNeeds MAW Encounter Details DateTypeDepartmentCare Team (Latest Contact Info)Htehyuleoxg49/05/2025 11:30 AM ESTOffice Visit [facility] [address] [place] [address] Gio Chan DO [address], [facility] [place] [address] Anxiety (Primary Dx); Medication management; Reactive airway disease without complication, unspecified asthma severity, unspecified whether persistent Social History Tobacco UseTypesPacks/DayYears UsedDateSmoking Tobacco: XeundjLavuikrurv894 Started: 1993Smokeless Tobacco: NeverAlcohol UseStandard Drinks/WeekCommentsYes0 (1 standard drink = 0.6 oz pure alcohol)occassionallyAHC UtilitiesAnswerDate RecordedIn the past 12 months has the electric, gas, oil, or water company threatened to shut off services in your home?No03/18/2024Social Connection and Isolation PanelAnswerDate RecordedIn a typical week, how many times do you talk on the phone with family, friends, or neighbors?More than three times a week 03/18/2024How often do you get together with friends or relatives?Once a week 03/18/2024How often do you attend sabianism or jainism services?Never03/18/2024o you belong to any clubs or organizations such as sabianism groups, unions, fraternal or athletic groups, or school groups?Yes03/18/2024How often do you attend meetings of the clubs or organizations you belong to?More than 4 times per year03/18/2024re you , , , , never , or living with a partner?Living with zruqowx6003/18/2024UDIT-CAnswerDate Recorded Q1: How often do you have a drink containing alcohol?2-3 times a week03/18/2024 Q2: How many drinks containing alcohol do you have on a typical day when you are drinking?3 or Q3: How often do you have six or more drinks on one occasion?Never03/18/2024HQ-2AnswerDate RecordedTotal Jncrz43405/14/2024hildcare AnswerDate RecordedDo problems getting child welfare caseworker make 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 work or study?No03/18/2024EmploymentAnswerDate RecordedDo you need help finding a local career center and/or a training program?No03/18/2024Hunger Screening AnswerDate RecordedWithin the past 12 months we worried whether our food would run out before we got money to buy more.Never True03/13/2025Within the past 12 months the food we bought just didn't last and we didn't have money to get more. Never True03/13/2025Purpose - LifeAnswerDate RecordedI have a purpose and direction in my life.Agree03/18/2024CommentsNoSex and Gender Information ValueDate RecordedSex Assigned at BirthNot on fileLegal MfmAczxjg29/04/2015 9:55 PM EDTGender IdentityNot on fileSexual OrientationNot on filedocumented as of this encounter Last Filed Vital Signs Vital SignReadingTime TakenCommentsBlood Fljayzyv380/8403/13/2025 11:34 AM EST Itwkm311803/13/2025 11:34 AM BXNRjncqjexucm45.3 ??C (97.4 ??F)03/13/2025 11:34 AM ESTRespiratory Oozp7455/08/2024 11:34 AM ESTOxygen Zyvcgfhzeb88%03/13/2025 11:34 AM ESTInhaled Oxygen Concentration--Eidcvk53.4 kg (157 lb 6.4 oz)03/13/2025 11:34 AM YIPZwtilo295.9 cm (6' 0.01 )03/13/2025 11:34 AM ESTBody Mass Index21.34 03/13/2025 11:34 AM ESTdocumented in this encounter Functional Status * BPAnswerDate of FbkhhxiitvFitezh390/8403/13/2025 11:34 AM Bertha Norton CMA * TempAnswerDate of FzcprqelgwWbrrab20. 11:34 AM Bertha Norton CMA * Temp srcAnswerDate of IjtsoyibnxQconpxSqgnaudc53/05/2025 11:34 AM Bertha Norton CMA * PulseAnswerDate of VovkobwhhtNjnxrt8783/05/2025 11:34 AM Bertha Norton CMA * RespAnswerDate of XlfmouhusfSzbpmc6386/05/2025 11:34 AM Bertha Norton CMA * DjY2SdjdoqJspq of FfjganfsyrVszyeh4849/05/2025 11:34 AM Bertha Norton CMA * HeightAnswerDate of IfabppbzdgJpkexc19.5704503/13/2025 11:34 AM Bertha Norton CMA * WeightAnswerDate of ZgydetvnmqRfijjr4201. 11:34 AM Bertha Norton CMA * Food InsecurityQuestionAnswerDate of AssessmentAuthorWithin the past 12 months the food we bought just didn't last and we didn't have money to get more.Never True03/13/2025 11:35 AM Bertha Norton CMAWithin the past 12 months we worried whether our food would run out before we got money to buy more.Never True03/13/2025 11:35 AM Bertha Norton CMA * BEE (kcal)AnswerDate of GgcqznrvfxFixwef071148 11:34 AM Bertha Norton CMA * BSA (Calculated - sq m)AnswerDate of AssessmentAuthor1.912 11:34 AM Bertha Norton CMA * BMI (Calculated)AnswerDate of AzothxajkuUpdnbe56.312 11:34 AM Bertha Jacobs CMA * Weight in (lb) to have BMI = 25AnswerDate of GutqurexluXxleod86913 11:34 AM Bertha Norton CMA * Vitals TimerQuestionAnswerDate of AssessmentAutC[facility] Vitals TimerYes 03/13/2025 11:34 AM Bertha Norton CMA * Over the last 2 weeks, how often have you been bothered by any of the following problems?QuestionAnswerDate of AssessmentAuthorIf you checked off any problems, how difficult have these problems made it for you to do your work,take care of things at home, or get along with other people?Not difficult at all03/13/2025 11:35 AM Bertha Norton CMALittle interest or pleasure in doing wmuuiy863 11:35 AM Bertha Norton CMAFeeling down, depressed, or xsjnftap659/05/2025 11:35 AM Bertha Norton CMATotal Score0 03/13/2025 11:35 AM Bertha Norton CMA * BPAnswerDate of AmjbedepbfWlfjdz571/8403/13/2025 11:34 AM Bertha Norton CMA * TempAnswerDate of PplxndwxekOtptoy56.412 11:34 AM Bertha Norton CMA * Temp srcAnswerDate of PpfapeqivkYexmzwAmhqvznk84/05/2025 11:34 AM Bertha Norton CMA * PulseAnswerDate of YvethowshqBwwbmn6435/05/2025 11:34 AM Bertha Norton CMA * RespAnswerDate of TfqaihoqdiTowkvq0444 11:34 AM Bertha Norton CMA * WyC1GyeklwRded of FywppztaomUxqboe8383 11:34 AM Bertha Norton CMA * HeightAnswerDate of NamfmrgginAznglf86.8641203/13/2025 11:34 AM Bertha Norton CMA * WeightAnswerDate of DvknshgnomRyrcie6222.412 11:34 AM Bertha Norton CMA * BEE (kcal)AnswerDate of XewkzzdlenPodjkb737411 11:34 AM Bertha Norton CMA * BSA (Calculated - sq m)AnswerDate of AssessmentAuthor1.912 11:34 AM Bertha Norton CMA * BMI (Calculated)AnswerDate of SqwrxzprueTbmqjr06.312 11:34 AM Bertha Jcaobs CMA * Weight in (lb) to have BMI = 25AnswerDate of NorwkwjqgsXstvzl77875 11:34 AM Bertha Notron CMA documented as of this encounter Mental Status * BPAnswerEntry JjycSgvypj650/8403/13/2025 11:34 AM Bertha Norton CMA * TempAnswerEntry GofaQqmxgo24. 11:34 AM Bertha Norton CMA * Temp srcAnswerEntry RkjnLygbptOgawubgh87/05/2025 11:34 AM Bertha Norton CMA * PulseAnswerEntry OrtuCzlixg5617/05/2025 11:34 AM Bertha Norton CMA * RespAnswerEntry MwgjYkiiys8668/05/2025 11:34 AM Bertha Norton CMA * TcT9MhjmoiKcwyi QjcwVoeeur3411/05/2025 11:34 AM Bertha Norton CMA documented in this encounter Progress Notes * Gio Chan, DO - 03/13/2025 11:30 AM EST Subjective Patient ID: Amber Luna is a 64 y.o. female. Aleah presents for anxiety recheck. She is using Hydroxyzine 25 mg with just a little benefit. It did not work as well as lorazepam. She was able to do her ADLs with lorazepam. She is more irritable now. The hydroxyzine was not low more sedating and she did not feel like doing as much when she tookit. She was using recreational marijuana for pain but has decided to stop it. She would like to go back on the lorazepam since she did better on it. It took her weigh her anxiety without sedating her. She would like a rescue inhaler or recommendation of an inhaler to use qwtm-cok-lxbuzin. She gets wheezing periodically. Seems to be triggered by the cold air. She used to smoke but stopped smoking a couple years ago. The following portions of the patient's history were reviewed and updated as appropriate: allergies, current medications, past family history, past medical history, past social history, past surgicalhistory, problem list, and medication reconciliation was completed including current medication andpost discharge medication. Review of Systems Constitutional: Negative. Respiratory: Positive for shortness of breath and wheezing. Cardiovascular: Negative. Musculoskeletal: Positive for arthralgias. Neurological: Negative. Psychiatric/Behavioral: Positive for agitation. The patient is nervous/anxious. Objective Physical Exam Vitals reviewed. Constitutional: General: She is not in acute distress. Appearance: She is not ill-appearing. Cardiovascular: Rate and Rhythm: Normal rate and regular rhythm. Heart sounds: Normal heart sounds. No murmur heard. Pulmonary: Effort: Pulmonary effort is normal. No respiratory distress. Breath sounds: Normal breath sounds. No wheezing, rhonchi or rales. Musculoskeletal: Cervical back: Neck supple. Right lower leg: No edema. Left lower leg: No edema. Neurological: General: No focal deficit present. Mental Status: She is alert and oriented to person, place, and time. Cranial Nerves: Cranial nerves 2-12 are intact. Psychiatric: Attention and Perception: Attention normal. Mood and Affect: Mood and affect normal. Speech: Speech normal. Behavior: Behavior normal. Behavior is cooperative. Thought Content: Thought content normal. Cognition and Memory: Cognition normal. Judgment: Judgment normal. Assessment/Plan Aleah was seen today for medication review. Diagnoses and all orders for this visit: Anxiety - LORazepam (ATIVAN) 0.5 mg tablet; Take 1 tablet (0.5 mg total) by mouth every 12 (twelve) hours as needed for anxiety. - Drug Screen, Urine; Future - Drug Screen, Urine We discussed treatment of anxiety. Risks and benefits of medications discussed. We will restart lorazepam 0.5 mg Q12 hours p.r.n.. The OARRS/MAPPS database was reviewed today and found to be appropriate. No indication of medication diversion, or non compliance. Medication management - Drug Screen, Urine; Future - Drug Screen, Urine Check urine for drugs of abuse. Reactive airway disease without complication, unspecified asthma severity, unspecified whether persistent She should have a rescue inhaler available for wheezing. She does have a significant smoking history. May have a component of COPD. We discussed testing for COPD but she declined. We will try Airsupra. Other orders - albuterol-budesonide (AIRSUPRA) 90-80 mcg/actuation HFA aerosol inhaler; Inhale 2 puffs every 4 (four) hours as needed (wheeze). documented in this encounter Plan of Treatment DateTypeDepartmentCare Team (Latest Contact Info)Ijsksavkhjz19/09/2026 11:00 AM EDTOffice Visit [facility] [address] [place] [address] Gio Chan DO [address], [facility] [place] [address] documented as of this encounter Procedures Procedure NamePriorityDate/TimeAssociated DiagnosisCommentsDRUG SCREEN, URINE Uwaezsc1403/13/2025 12:35 PM EST Anxiety Medication management documented in this encounter Results * Drug Screen, Urine (03/13/2025 12:35 PM EST)ComponentValueRef RangeTest Method Analysis TimePerformed AtPathologist SignatureAMPHETAMINE/METHAMPNegative Koycvcjb12/05/2025 6:07 PM [facility] LABORATORYComment: AMPH/METH screening cut off = 1000 ng/mLCOCAINE METABOLITENegativeNegative 03/13/2025 6:07 PM [facility] LABORATORYComment:Cocaine screening cut off value = 300 ng/cIULRKXDVPqwodvvdPphmvbsr39/05/2025 6:07 PM [facility] LABORATORYComment:Ecstasy screening cut off value = 500 ng/eATOTXJXRFOOixrkxqbYdngkges66/05/2025 6:07 PM [facility] LABORATORYComment:Methadone screening cut off value = 300 ng/mL.Opiates SccndhaaKoslgqyd23/05/2025 6:07 PM [facility] Comment: Opiates screening cut off value = 300 ng/mL This test is used for the detection of codeine, hydrocodone (>1000 ng/mL), morphine and hydromorphone (>900 ng/mL) in urine. WSGQQRZBBCdomdceoWpqpocfo98/05/2025 6:07 PM [facility] LABORATORYComment: Oxycodone screening cut off value = 300 ng/mL This test is used for the detection of oxycodone and oxymorphone in urine. PUAHKPORJPESAHexntsxmMgwvkcfp45/05/2025 6:07 PM [facility] LABORATORYComment:Phencyclidine screening cut off value = 25 ng/mLCANNABINOIDS AtikyftjIagpdyoe82/05/2025 6:07 PM [facility] Comment:Cannabinoids/THC screening cut off value = 50 ng/mLUrine Barbiturates LqmjjhqrNolvefct25/05/2025 6:07 PM [facility] Comment:Barbiturates screening cut off value = 200 ng/mLBENZODIAZEPINESNegative Oxnhcfoo94/05/2025 6:07 PM [facility] LABORATORYComment: Benzodiazepines screening cut off value = 200 ng/mLSpecimen (Source)Anatomical Location / LateralityCollection Method / VolumeCollection TimeReceived TimeUrine 03/13/2025 12:35 PM EST03/13/2025 12:35 PM EST Narrative Authorizing ProviderResult TypeResult StatusDennis G Furlong DOURINE ORDERABLES Final ResultPerforming OrganizationAddressCity/State/ZIP CodePhone Number [facility] [address] [place] [address], documented in this encounter Visit Diagnoses Diagnosis Anxiety- Primary Anxiety state, unspecified Medication management Reactive airway disease without complication, unspecified asthma severity, unspecified whether persistent documented in this encounter Additional Health Concerns AssessmentNoted TimePHQ-9 Depression Total Score: 11:35 AM EST documented as of this encounter Care Teams Team MemberRelationshipSpecialtyStart DateEnd Date Gio Chan DO [address] [place] [address] PCP - GeneralFamily Medicine08/09/23documented as of this encounter
--- OUTSIDE RECORDS SUMMARY | 2025-03-25 11:55 | XMS_ITS | Clinical Summary ---
Author Organization [facility] Address [address] [facility] [place] [address] Care Team Providers Care Nurse Wound Name Role Phone Victoriano Chandler MD Unavailable [phone] Times, Yoselin Ojeda MD Unavailable [phone] Mahesh Ramos MD, PhD Unavailable [phone] Dana Ordonez APRN-CURB SUPERVISOR Unavailable [phone] Source Comments The following information is NOT included in Care Everywhere downloads:Psychiatric notes, ECG results, Cardiac Rehab notes, Pulmonary Function notes, data from [facility] (includes but not limited toPregnancy data,audiograms, eye exams, pre-surgical evaluation notes, well-child exam data).[facility] Allergies Active AllergyReactionsCriticalityNoted OqicXjnwdowgOdqwsjveexzeaZebk49/02/2023 BncentmSazegrgzGxvrki14/15/2016Molds & Smuts11/09/2014Pollen Uwtcytf0311/22/2015 Eye watering, headaches Eye watering, headaches Medications MedicationSigDispense QuantityRefillsLast FilledStart DateEnd DateStatus senna (SENOKOT) 8.6 MG tablet Take 1 Tablet by mouth daily as needed for Constipation. 30 Tablet 08/28/2022 2:41 PM EDT08/28/2022ctive lidocaine (XYLOCAINE) 5 % ointment Apply a thick amount to affected area 2 times daily as needed. 30 g 2:41 PM EDT08/28/2022ctive cetirizine (ZyrTEC) 10 MG tablet Cetirizine (Zyrtec) 10 mg Tablet Active 10 MG PO Daily October 26, 2021 12:00am 10/26/2021ctive lidocaine-prilocaine (E mLA) 2.5-2.5 % cream Apply thin layer to affected area. 30 g ctive benzonatate (Tessalon Perles) 100 MG capsule Indications:Viral upper respiratory tract infectionTake 1 Capsule by mouth 3 times daily as needed. 60 Capsule 11/06/2022 4:15 PM EDT10/31/2022ctive albuterol (PROVENTIL HFA) INHALATION HFA inhaler (VENTOLIN,PROAIR,PROVENTIL) 90mcg Indications:Viral upper respiratory tract infectionInhale 2 Puffs by mouth every 4 hours as needed for Wheezing. 8.5 g 11/06/2022 4:15 PM EDT10/31/2022ctive naloxone 4 mg/0.1 mL nasal liquid Use 1 [place] in one nostril (alternate sides) as needed for Drug Overdose for up to 1 dose. Every 2-3 mins. until help arrives. 2 Each ctive silver sulfadiazine (SILVADENE) 1 % cream Apply topically 2 times daily. Apply thin layer to affected area. Mix equal parts of Lidocaine and Silvadene 2-3 times a day 85 g 11:47 AM EDT11/08/2022ctive lidocaine (XYLOCAINE) 5 % ointment Apply topically 3 times daily as needed. Apply thin layer to affected area. Mix equal parts of Lidocaine and Silvadene three times a day. 240 g 8:56 AM EDT11/15/2022ctive prochlorperazine (COMPAZINE) 10 MG tablet Take 1 Tablet by mouth every 6 hours as needed for Nausea for up to 14 days. 56 Tablet 11/24/2022 3:12 PM EDT11/23/2022ctive pantoprazole (Protonix) 20 MG tablet Take 1 Tablet by mouth daily. 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 free, 30mcg/0.3mL dose (JWY=555)08/09/2020,07/23/2020 Family History Medical HistoryRelationNameCommentsDCISSisterRelationNameStatusCommentsSister Social History Tobacco UseTypesPacks/DayYears UsedDateSmoking Tobacco: Every DayCigarettes Smokeless Tobacco: Never Tobacco Cessation:Counseling Given: Yes Alcohol UseStandard Drinks/WeekCommentsYes4 (1 standard drink = 0.6 oz pure alcohol)Humiliation, Afraid, Rape, and Kick questionnaireAnswerDate Recorded Within the last year, have you been afraid of your partner or ex-partner?No 10/12/2022Within the last year, have you been humiliated or emotionally abused in other ways by your partner or ex-partner?No10/12/2022Within the last year, have you been kicked, hit, slapped, or otherwise physically hurt by your partner or ex-partner?No10/12/2022Within the last year, have you been raped or forced to have any kind of sexual activity by your partner or ex-partner?No10/12/2022 Social Connection and Isolation PanelAnswerDate RecordedIn a typical week, how many times do you talk on the phone with family, friends, or neighbors?Three times a week10/12/2022How often do you get together with friends or relatives? Patient rgcnlluz38/06/2023How often do you attend jewish or sikh services? Patient hbbdbyzb32/06/2023o you belong to any clubs or organizations such as jewish groups, unions, [employer] or athletic groups, or school groups?Yes 10/12/2022How often do you attend meetings of the clubs or organizations you belong to?More than 4 times per year10/12/2022re you , , , , never , or living with a partner?Living with partner 10/12/2022Overall Financial Resource Strain (CARDIA)AnswerDate RecordedHow hard is it for you to pay for the very basics like food, housing, medical care, and heating?Very hard10/12/2022[facility] [place] [facility] - Occupational Stress QuestionnaireAnswerDate RecordedDo you feel stress - tense, restless, nervous, or anxious, or unable to sleep at night because yourmind is troubled all the time - these days?Rather much10/12/2022Exercise Vital Sign AnswerDate RecordedOn average, how many days per week do you engage in moderate to strenuous exercise (like a brisk walk)?4 days10/12/2022On average, how many minutes do you engage in exercise at this level?10 min10/12/2022Hunger Vital SignAnswerDate RecordedWithin the past 12 months, you worried that your food would run out before you got the money to buymore.Often true10/12/2022Within the past 12 months, the food you bought just didn't last and you didn't have money to get more.Sometimes true10/12/2022RAPARE - TransportationAnswerDate Recorded In the past 12 months, has lack of transportation kept you from medical appointments or from getting medications?No10/12/2022In the past 12 months, has lack of transportation kept you from meetings, work, or from getting things needed for daily living?No10/12/2022Housing Stability Vital SignAnswerDate RecordedIn the last 12 months, was there a time when you were not able to pay the mortgage or rent on time?Yes10/12/2022In the last 12 months, how many places have you lived?In the last 12 months, was there a time when you did not have a steady place to sleep or slept in ashelter (including now)?No 10/12/2022EducationAnswerDate RecordedWhat is the highest level of school you have completed or the highest degree you have received?Associate degree: occupational, technical, or vocational phzbpye0610/12/2022Substance UseTypes Use/WeekCommentsNot CurrentlyCommentsNoSex and Gender InformationValue Date RecordedSex Assigned at BirthNot on fileLegal QivJeeyyo37/25/2022 4:04 PM EDTGender IdentityNot on fileSexual OrientationNot on file Last Filed Vital Signs Vital SignReadingTime TakenCommentsBlood Jnzeqyzl79/4908 1:38 PM EDT Dujlh313812/07/2022 1:38 PM XMYSrlpletkjgi43.7 ??C (98 ??F)11/20/2022 3:00 PM EDT Respiratory Rvrn8705 1:38 PM EDTOxygen Qlqlixdqjs16%12/07/2022 1:38 PM EDTInhaled Oxygen Concentration--Xrdoip55.3 kg (137 lb 6.4 oz)12/07/2022 1:38 PM CNBAahgcg517.9 cm (6')12/07/2022 1:38 PM EDTBody Mass Index18.6308 1:38 PM EDT Plan of Treatment Health MaintenanceDue DateLast UqteMtzdmfnmLsrzqkvmhvi92/26/1959Hepatitis C Coqxsjtb93/26/1977Tdap Tuhsqlp7211/01/1976Hepatitis A (HAV) Vaccine (optional start 19+ years)1977Pneumococcal Vaccine(s) (50+ yrs) (1 of 2 - PCV) 1977Shingles (RZV) Vaccine (1 of 2)1977CRC Zjoudxgnc45/26/2004 Cologuard (Stool DNA)11/02/2003FIT11/02/2003RSV vaccine (adult) (1 - Risk 50-74 years 1-dose series)2008Hepatitis B (HBV) Vaccine (optional start 60+ years)2018COVID-19 Vaccine (3 - Pfizer risk series)105/06/2020, 07/23/20204507Hwqdkemdple98/27/249796/, 11/02/2021, 11/02/2021, Additional history existsInfluenza Vaccine (#1)514349Gjgnlkbohfj48/10/2029 4Bone CdryjilpsfnhVfpjylizc40/18/2014Pap SmearDiscontinued Advance Directives TypeDate RecordedPatient RepresentativeExplanationLiving Will10/23/2022 3:19 PM Living WillHealthcare Power of Attorney10/23/2022 3:12 PMHealthcare Power of Air Purifier Servicer * Full Code (Latest Code Status on File) Date ActivatedDate InactivatedComments10/31/2022 8:26 PM11/02/2022 5:10 PMQuestion AnswerCommentsDocumentation of decision process for this code status:* Patient and surrogate unable or unavailable to discuss.?? There is no previous documentation of code status.?? Defaulting to Full Code Care Teams Team MemberRelationshipSpecialtyStart DateEnd Date Victoriano Chandler MD [address] [place] [address] [place] [address] PhysicianDermatology07/09/21 Times, Yoselin Ojeda MD [address] [place], [place] [id number] PhysicianColon & Rectal Surgery08/13/21 Mahesh Ramos MD, PhD [address] [place], [place] [id number] PhysicianRadiation Oncology10/07/22 Dana Ordonez, COSTUME SHOP MANAGER-CURB SUPERVISOR [address] [place] [address] [place] [address] APNHematology/Oncology11/11/22
--- OUTSIDE RECORDS SUMMARY | 2025-03-25 11:55 | XMS_ITS | Clinical Summary ---
Author Organization [facility] Address [address] [place] [address] Care Team Providers Care Restaurant Associate Name Role Phone Unavailable Primary Care Provider Unavailabl e Social History Tobacco UseTypesPacks/DayYears UsedDateSmoking Tobacco: Never AssessedArea Deprivation IndexAnswerDate RecordedNational Score (1-100), lower number is lower hcpa476304/21/2022State Score (1-10), lower number is lower riskNot on file 3Data from: https://www.neighborhoodatlas.medicine.[facility].edu/. Last address used for [address] [id number] and Gender InformationValueDate RecordedSex Assigned at BirthNot on fileLegal Sex Bkcwen8707/26/2021 3:23 PM EDTGender IdentityNot on fileSexual OrientationNot on file Plan of Treatment Health MaintenanceDue DateLast DoneCommentsAnxiety Yeqbdpvwi57/26/1977Depression Xljweyqkr67/26/1977Hepatitis C Vvivfiwjt12/26/1977Mammogram Ytcjyoija63/26/1999 CT Snwswhrghnsb87/26/2004Cologuard (FIT-DNA)11/02/20034944Uccqutfukcm11/26/2004 Colorectal Cancer Jvcwcvuke16/26/2004Diabetes Yblwclibe97/26/2004Fecal Occult Blood11/02/2003Lipid Wdzrarxvt88/26/5685Avqsoymjllqul16/26/2004Pneumococcal Vaccine: 50+ (1 of 1 - PCV)2008Shingrix Vaccine (1 of 2)2008 DTaP,Tdap,Td Vaccine (1 - Tdap)/one Density Screening 4Advance Directive Bbwmfjqlox18/01/2025ovid-19 Vaccine ( - season)2024Influenza Vaccine (#1)2024RSV Vaccine (1 - 1-dose 75+ series)2033ervical Cancer NvhdymzjeOfkixpixxifr65/28/2018
--- OUTSIDE RECORDS SUMMARY | 2025-03-25 11:55 | XMS_ITS | Clinical Summary ---
Author Organization [facility] Address [address] [place] [address] Care Team Providers Care Tomb Maker Helper Name Role Phone Mehreen Randhawa MD Primary Care Provider [phone] Elizabeth Garnica DELIVERY MOTORCYCLE DRIVER Unavailable [phone] Allergies No known active allergies Medications MedicationSigDispense QuantityRefillsLast FilledStart DateEnd DateStatus busPIRone (Buspar) 5 MG tablet Take 5 mg by mouth in the morning and 5 mg in the evening.01/01/2023ctive docusate sodium (Colace) 100 MG capsule 08/28/2022ctive hydrOXYzine pamoate (Vistaril) 25 MG capsule TAKE 1 CAPSULE BY MOUTH EVERY DAY AT BEDTIME NEEDEDActive ibuprofen 400 MG tablet every 8 (eight) hours.Active lidocaine-prilocaine (Emla) 2.5-2.5 % cream APPLY THIN LAYER TO AFFECTED AREA WHZEMPEO04/19/2023ctive loratadine (Claritin) 10 MG tablet 1 (one) time each day at the same time.Active pantoprazole (ProtoNix) 20 MG EC tablet Take 20 mg by mouth in the morning.12/07/2022ctive senna (Senokot) 8.6 MG tablet 08/28/2022ctive sertraline (Zoloft) 50 MG tablet Indications:Depression with anxietyTAKE 1 TABLET BY MOUTH EVERY DAY 90 tablet ctive Active Problems ProblemNoted DateDiagnosed DateSeasonal lfgoxrfnt38/14/2023Malignant neoplasm of overlapping sites of rectum, anus and anal canal12/21/2022epression with mlbcvob9312/21/2022Malignant tumor of anus12/21/2022 Family History Medical HistoryRelationNameCommentsCancerFatherPulmonary issuesMotherRelation NameStatusCommentsFatherMother Social History Tobacco UseTypesPacks/DayYears UsedDateSmoking Tobacco: Every DayCigarettes Smokeless Tobacco: Never Tobacco Cessation:Ready to Q uit: Not Asked; Counseling Given: Not Answered Alcohol UseStandard Drinks/WeekCommentsYes2 (1 standard drink = 0.6 oz pure alcohol)CommentsUnknownSex and Gender InformationValueDate RecordedSex Assigned at BirthNot on fileLegal ZweIddord46/15/2023 9:44 PM EDTGender Identity Not on fileSexual OrientationNot on file Last Filed Vital Signs Vital SignReadingTime TakenCommentsBlood Myhdgzzf246/80011/09/2021 12:00 PM EDT Pulse--Temperature--Respiratory Rate--Oxygen Saturation--Inhaled Oxygen Concentration--Psxcse76.7 kg (147 lb)11/09/2021 12:00 PM GIWLhoekq031.6 cm (5' 11.5 )11/09/2021 12:00 PM EDTBody Mass Index20.22011/09/2021 12:00 PM EDT Plan of Treatment Not on file Care Teams Team MemberRelationshipSpecialtyStart DateEnd Date Mehreen Randhawa MD [address] [place] [address] PCP - GeneralFamily Medicine12/21/22 Elizabeth Garnica NP [address] [place] [address] Nurse PractitionerFamily Medicine12/21/22
--- OUTSIDE RECORDS SUMMARY | 2025-03-25 11:55 | XMS_ITS ---
Author Organization [facility] Address [address] [facility] [place] [address] Care Team Providers Care Process Artist Name Role Phone Victoriano Chandler MD Unavailable [phone] Times, Yoselin Ojeda MD Unavailable [phone] Mahesh Ramos MD, PhD Unavailable [phone] Dana Ordonez APRN-NUCLEAR SUPERVISING OPERATOR Unavailable [phone] Active Problems ProblemNoted DateDiagnosed DateAnal ghursq3110/03/2022 Cancer Staging: Clinical stage from 10/03/2022:Stage IIB(cT3, cN0, cM0) - Unsigned Depression with aqhyotf7108/25/2022Seasonal fvqffkpes55/19/2023erianal mass 07/15/2021 Overview (07/15/2021): Added automatically from request for surgery [id number] Diverticulitis of large intestine with abscess without caztimqb39/11/2017Heavy tobacco smoker >10 cigarettes per day08/17/2016Vitamin D vacinigmof42/11/2012 Current Treatment and Therapy Plans OP SUPPORTIVE CARE PLAN (HYDRATION, ELECTROLYTE REPLACEMENT , BLOOD PREMEDICATIONS, PORT AND LINE ACCESS)* Plan Start Date:10/31/2022 Plan Provider:Quinn Alan RPh Linked Problems Anal cancer (HCC) Treatment MedicationsCurrent Day (Day 3, Cycle 2 - Planned for 12/09/2022)Next Day (Day 5, Cycle 2 - Planned for 12/11/2022)No medications scheduled.No medications scheduled.No medications scheduled. Past Treatment and Therapy Plans Radiation Treatments * Treatment PeriodEnergyFraction DoseFractionsTotal DosePlansPlannedPelvis Anus:108 - .8 Gy14 / 1425.2 GyPelvis Anus10/16/2022 - .8 Gy16 / 3054 GyReference YbbxujZqnanmnhfLeok30/10/2023 - 11/29/2022?54 Gy Lifetime Dose Tracking * ChemicalLifetime DoseAutomatic EntryManual UoosrLutntxprp39.407 mg/m2 (33 mg) 17.407 mg/m2 (33 mg)0 mg/m2 (0 mg) Resolved Problems ProblemNoted DateDiagnosed DateResolved DateNeutropenic fever2022 11/02/2022
--- OUTSIDE RECORDS SUMMARY | 2025-03-25 11:55 | XMS_ITS | Patient Health Record ---
Author Organization [facility] in [place] Address [address] [place] [address] Care Team Providers Care Wrapper Stemmer Operator Name Role Phone Gio Mathews DO Primary Care Provider Unavail able Felicia Mckeon Unavailable [phone] Results Component Value Reference Range Notes CBC AUTO DIFF (Not yet revie wed by provider) Interpretation: Performing Lab: Notes/Report: [facility] , White Blood Count 3.9 4.0-11.0 10 3/uL Red Blood Count4.404.20-5.40 10 6/qPEihxbfrnmy05.912.0-16.0 g/sYLxklwrfjwo93.0 36.0-48.0 %Mean Corpuscular Dqngnh006.081.0-99.0 fLMean Corpuscular Hemoglobin 33.926.7-34.0 pgMean Corpuscular HGB Conc33.929.9-35.2 g/dLRed Cell Distribution Width14.111.0-15.0 %Platelet Opoxx108430-561 10 3/uLMean Platelet Volume9.49.5- 13.5 fLNeutrophils Percent Auto71.043.0-75.0 %Lymphocytes Percent Auto13.120.5- 60.0 %Monocytes Percent Auto11.81.7-12.0 %Eosinophils Percent Auto2.60.9-7.0 % Basophils Percent Auto1.00.2-2.0 %Immature Granulocytes Pct Auto0.50.0-0.5 % Neutrophils Absolute Auto2.81.4-6.5 10 3/uLLymphocytes Absolute Auto0.51.2-3.8 10 3/uLMonocytes Absolute Auto0.50.3-0.8 10 3/uLEosinophils Absolute Auto0.10.0- 0.7 10 3/uLBasophils Absolute Auto0.00.0-0.1 10 3/uLImmature Granulocytes Abs Auto0.020.00-0.03 10 3/uLPerforming Lab:see note - [facility] LB FERRITIN (Not yet reviewed by provider) Interpretation: Performing Lab: Notes/Report: [facility] ,Szslqtpb327.08.0-252.0 ng/mLPerforming Lab:see note - [facility] LBFOLATE (Not yet reviewed by provider) Interpretation: Performing Lab: Notes/Report: [facility] ,Folate4.808.60-58.90 ng/mLPerforming Lab:see note - [facility] LB IRON AND TIBC (Not yet reviewed by provider) Interpretation: Performing Lab: Notes/Report: [facility] ,Enti944.050.0-170.0 ug/dLTotal Iron Binding Wyuuwafz229.0250.0-450.0 ug/dL Percent Iron Yikowzysqa98.0Performing Lab:see note - [facility] LB PROF 14(COMP METB) (Not yet reviewed by provider) Interpretation: Performing Lab: Notes/Report: [facility] ,Xioryt828159-515 mmol/LPotassium4.73.5-5.1 mmol/BArkwmlcx27069-768 mmol/LCarbon Lbgwoqm88.721.0-32.0 mmol/LAnion Gap17.4Gkvkxtm41795-598 mg/dLBlood Urea Rcvdnjwz70.07.0-18.0 mg/dLCreatinine1.530.55-1.02 mg/dLEstimated GFR ( Wceokru15>=60 mL/min/1.73m 2Estimated GFR (Non- Ame34>=60 mL/min/1.73m 2 BUN Creatinine Ratio14.0Buujfwl6.28.5-10.1 mg/dLBilirubin Total0.80.2-1.0 mg/dL Aspartate Amino Cxidnlehbmo4099-76 U/LAlanine Lqpyzsazajtcrasq8252-24 U/L Alkaline Wnskvgffpxh34455-930 U/LTotal Protein7.86.4-8.2 g/dLAlbumin Level4.1 3.4-5.0 g/dLGlobulin3.7Albumin Globulin Ratio1.1Performing Lab:see noteML - [facility] LBVITAMIN D 25 [place] (Not yet reviewed by provider) Interpretation: Performing Lab: Notes/Report: [facility] ,Vitamin D19.6 <20 ng/mL Vit D deficient 20-<30 ng/mL Vit D insufficient 30-100 ng/mL Vit D sufficient >100 ng/mL Potential Toxicity Performing Lab:see noteML - [facility] LBCEA (Not yet reviewed by provider) Interpretation: Performing Lab: Notes/Report: [facility] ,CEA8.60.0-4.7 ng/mL interpreted as absolute evidence of the presence or [facility] Electrochemiluminescence Immunoassay cannot be used interchangeably. Results cannot be Health Aide: Tristen Evans PhD, Phone: [phone] Values obtained with different assay methods or kits (ECLIA) [address] [place], [place] [address] Performed at: [facility] absence of malignant disease. Smokers <5.6 Nonsmokers <3.9 Performing Lab:see noteLC - [facility] LBVitamin B12 (Not yet reviewed by provider) Interpretation: Performing Lab: Notes/Report: [facility] ,Vitamin J12359487-2327 pg/mL Health Aide: Tristen Evans PhD, Phone: [phone] [address] [place] [phone] Performed at: [facility] Performing Lab:see noteLC - [facility] LBPET skull to mid thigh (Not yet reviewed by provider) Interpretation: Performing Lab: Notes/Report: Source Facility: [facility] [place] [address] [place] [address] PET Report Signed Patient: LESVIA MALDONADO MR#: [id number] : 1960 Acct:[id number] Age/Sex: 63 / F ADM Date: 07/21/24 Loc: PETCT Attending Dr: Felicia Lowery M.D. Ordering Physician: Felicia Lowery M.D. Date of Service: 07/21/24 Procedure(s): PET skull to mid thigh Accession Number(s): [id number] cc: Felicia Lowery M.D.; GIO MATHEWS [place] [id number] Patient Name: LESVIA MALDONADO MRN: [id number] date: 1960 Sex: F Assigned Patient Location: PETCT Current Patient Location: Accession/Order Number: [id number] Exam Date: 07/22/2024 08:11 Report Date: 07/22/2024 08:35 At the request of: FELICIA LOWERY MD Procedure: PET skull to mid thigh PET/CT WITH FUSION CLINICAL DATA: Follow-up rectal cancer COMPARISON: 01/28/2024 Following the intravenous administration of 12.24 mCi of FDG, SPECT imaging in 3 planes was performed from the level the orbits through the groin. Patient's blood glucose level at the time of injection was 106 mg/dL. Spiral unenhanced CT was also performed for anatomic localization. The PET and CT images were fused. This CT exam was performed using one or more following dose reduction techniques: Automated exposure control, adjustment of the mA and/or kV according to patient size, or use of iterative reconstruction technique. NECK: There is physiologic oropharyngeal uptake. No pathologic adenopathy is identified CHEST: There are no enlarged or hypermetabolic mediastinal, hilar or axillary lymph nodes. No abnormal lung FDG uptake is seen. 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 Obstructive lung disease and apical scarring is seen. ABDOMEN/PELVIS: There is no abnormal hypermetabolism associated with the liver or adrenal glands. No enlarged or hypermetabolic abdominal or pelvic lymphadenopathy is seen. There is a focus of increased uptake at the distal rectum that was not seen previously. The SUV is 6.6. There is physiologic urinary tract and GI uptake. PET/PET skull to mid thigh IMPRESSION: NEW FOCUS OF INCREASED FDG UPTAKE AT THE LOWER RECTUM. CLINICAL CORRELATION WILL BE NEEDED TO EXCLUDE THE POSSIBILITY OF RECURRENT NEOPLASM. NO SUSPECTED METASTATIC DISEASE. Impression dictated by: Miryam Fuller M.D.07/22/2024 8:35 AM Dictation Location: [place] [address] Electronically authenticated by: [id number] Y Date: 07/22/2024 08:35 Dictated By: Miryam Fuller M.D. Signed By: 07/22/24 1342 DD/ 0835 TD/TT: Yarn Spinner:PROF Linda(COMP METB) (Not yet reviewed by provider) Interpretation: Performing Lab: Notes/Report: [facility] ,Kbmsxb118284-329 mmol/LPotassium4.73.5-5.1 mmol/DUebcymda67978-060 mmol/LCarbon Cywtonf88.621.0-32.0 mmol/LAnion Gap14.3Eiynbsm33107-759 mg/dLBlood Urea Xesopjkq78.07.0-18.0 mg/dLCreatinine1.470.55-1.02 mg/dLEstimated GFR ( Lmvjhqi37>=60 mL/min/1.73m 2Estimated GFR (Non- Ame36>=60 mL/min/1.73m 2 BUN Creatinine Ratio10.9Edzfhff9.68.5-10.1 mg/dLBilirubin Total0.70.2-1.0 mg/dL Aspartate Amino Ujxeityxnzq8561-78 U/LAlanine Oosjphdnojkncvlq2443-70 U/L Alkaline Aszzkdpzcok04119-107 U/LTotal Protein7.56.4-8.2 g/dLAlbumin Level4.1 3.4-5.0 g/dLGlobulin3.4Albumin Globulin Ratio1.2Performing Lab:see noteML - [facility] LBCBC AUTO DIFF (Not yet reviewed by provider) Interpretation: Performing Lab: Notes/Report: [facility] ,White Blood Count5.14.0-11.0 10 3/uLRed Blood Count3.784.20-5.40 10 6/uL Rzjsaaazgd61.512.0-16.0 g/mNNrjwtiteji40.836.0-48.0 %Mean Corpuscular Volume 110.681.0-99.0 fLMean Corpuscular Tkpuoqeaop81.426.7-34.0 pgMean Corpuscular HGB Conc34.729.9-35.2 g/dLRed Cell Distribution Width13.911.0-15.0 %Platelet Count 336809-016 10 3/uLMean Platelet Volume9.99.5-13.5 fLPerforming Lab:see note - [facility] LBIRON AND TIBC (Not yet reviewed by provider) Interpretation: Performing Lab: Notes/Report: [facility] ,Egqi189.050.0-170.0 ug/dLTotal Iron Binding Jzviaeny039.0250.0-450.0 ug/dL Percent Iron Pimkzdtitp94.5Performing Lab:see noteML - [facility] LB PROF 14(COMP METB) (Not yet reviewed by provider) Interpretation: Performing Lab: Notes/Report: [facility] ,Dkwiom074093-459 mmol/LPotassium4.23.5-5.1 mmol/ICmijlroz90948-678 mmol/LCarbon Ntnacmc78.621.0-32.0 mmol/LAnion Gap16.4Kwjeuyx07371-036 mg/dLBlood Urea Upndpauf86.07.0-18.0 mg/dLCreatinine1.390.55-1.02 mg/dLEstimated GFR ( Wxzqkmg27>=60 mL/min/1.73m 2Estimated GFR (Non- Ame38>=60 mL/min/1.73m 2 BUN Creatinine Ratio14.4Tocuzsx0.18.5-10.1 mg/dLBilirubin Total0.60.2-1.0 mg/dL Aspartate Amino Dcuogcrjcom3056-09 U/LAlanine Hepdyicvecitdjmp2993-74 U/L Alkaline Rlqkewonmmf64428-904 U/LTotal Protein7.66.4-8.2 g/dLAlbumin Level4.2 3.4-5.0 g/dLGlobulin3.4Albumin Globulin Ratio1.2Performing Lab:see note - [facility] LBManual Differential (Not yet reviewed by provider) Interpretation: Performing Lab: Notes/Report: [facility] ,Segmented Neutrophils % Ceupxt73.043.0-75.0Lymphocytes Percent Nufzxf84.020.5- 60.0 %Monocytes Percent Manual6.01.7-12.0 %Eosinophils Percent Manual6.00.9-7.0 %Basophils Percent Manual0.00.2-2.0 %Segmented Neut Absolute Manual3.361.4-6.5 10 3/uLLymphocytes Absolute Manual1.121.20-3.80 10 3/uLMonocytes Absolute Manual 0.300.30-0.80 10 3/uLEosinophils Absolute Manual0.300.00-0.70 10 3/uLBasophils Abs Manual0.000.00-0.10 10 3/uLPerforming Lab:see noteML - [facility] LBCBC AUTO DIFF (Not yet reviewed by provider) Interpretation: Performing Lab: Notes/Report: [facility] ,White Blood Count5.44.0-11.0 10 3/uLRed Blood Count4.094.20-5.40 10 6/uL Peoezsjwkp56.712.0-16.0 g/bMKtosvjrydq40.636.0-48.0 %Mean Corpuscular Volume 104.281.0-99.0 fLMean Corpuscular Aydxiifzij51.926.7-34.0 pgMean Corpuscular HGB Conc34.529.9-35.2 g/dLRed Cell Distribution Width14.411.0-15.0 %Platelet Count 259335-317 10 3/uLMean Platelet Volume9.89.5-13.5 fLNeutrophils Percent Auto72.8 43.0-75.0 %Lymphocytes Percent Auto13.220.5-60.0 %Monocytes Percent Auto10.81.7- 12.0 %Eosinophils Percent Auto2.10.9-7.0 %Basophils Percent Auto0.70.2-2.0 % Immature Granulocytes Pct Auto0.40.0-0.5 %Neutrophils Absolute Auto3.91.4-6.5 10 3/uLLymphocytes Absolute Auto0.71.2-3.8 10 3/uLMonocytes Absolute Auto0.60.3-0.8 10 3/uLEosinophils Absolute Auto0.10.0-0.7 10 3/uLBasophils Absolute Auto0.00.0- 0.1 10 3/uLImmature Granulocytes Abs Auto0.020.00-0.03 10 3/uLPerforming Lab:see noteML - [facility] LBFERRITIN (Not yet reviewed by provider) Interpretation: Performing Lab: Notes/Report: [facility] ,Whgdpfgc258.08.0-252.0 ng/mLPerforming Lab:see noteML - [facility] LB Reason For Referral No Information Problems Problem Type SNOMED Code ICD Code Onset Dates Problem Status W/U Status Risk Notes Problem Anemia caused by ant ineoplastic agent (disorder) (119578265156007) 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) ActiveconfirmedProblemCentrilobular emphysema (49224318)Centrilobular emphysema (J43.2)ActiveconfirmedProblemRectal cancer (543790260)Rectal cancer (C20)Active confirmedProblemPoor appetite (20817954)Poor appetite (R63.0)Activeconfirmed Encounters Encounter Location Date Provider Diagnosis [facility] [address] [place] [facility] [place] [address] 11/18/2024 [facility] [address] [place] [address]/04/2025 [facility] [address] [place] [address] Of [facility] Pending Test Test Name Order Date CBC AUTO DIFF 10/09/2023 CBC AUTO DIFF 05/13/2024 CBC AUTO DIFF 08/05/2024 CBC AUTO DIFF 11/17/2024 FERRITIN 05/13/2024 FERRITIN 10/09/2023 FERRITIN 11/17/2024 FOLATE 05/13/2024 IRON AND TIBC 10/09/2023 IRON AND TIBC 05/13/2024 IRON AND TIBC 11/17/2024 PROF 14(COMP METB) 05/13/2024 PROF 14(COMP METB) 10/09/2023 PROF 14(COMP METB) 11/17/2024 PROF 14(COMP METB) 08/05/2024 VITAMIN D 25 [place] 05/13/2024 Manual Differential 10/09/2023 Manual Differential 11/17/2024 PET skull to mid thigh 01/31/2024 PET skull to mid thigh 07/22/2024 CEA 05/13/2024 CEA 10/09/2023 Vitamin B12 05/13/2024 Next Appt Details Provider Name:FELICIA LOWERY , 03/31/2025 01:30:00 PM, [address] [place], [address], Insurance Providers Payer Name Payer Address Payer Phone Subscriber Number Group Number Insured Name Patient Relationship to Insured Coverage Start Date Coverage End Date [place] [address] [place] [address] [id number] Nguyen Maldonado - patient is the [id number] MEDICARE SUPPLEMENTPO [address] [address] [place] [phone], KathrynSelf - patient is the insured
--- OUTSIDE RECORDS SUMMARY | 2025-03-25 11:55 | XMS_ITS | Clinical Summary ---
Author Organization [facility] Address [address] [place] [address] Phone Care Team Providers Care Facilities Flight Check Pilot Name Role Phone Unavailable Primary Care Provider Unavailabl e Social History Tobacco UseTypesPacks/DayYears UsedDateSmoking Tobacco: Never Assessed CommentsUnknownSex and Gender InformationValueDate RecordedSex Assigned at Not on fileLegal ZwrQeokof52/25/2022 10:37 PM ESTGender IdentityNot on file Sexual OrientationNot on file Last Filed Vital Signs Vital SignReadingTime TakenCommentsBlood Ekitlhxh067/7608 9:19 AM EDT Cvfnx0505 9:19 AM EDTTemperature--Respiratory Rate--Oxygen Saturation-- Inhaled Oxygen Concentration--Pxtydk20.1 kg (150 lb 2 oz)12/01/2021 9:19 AM EDT Bwckql220.9 cm (6')12/01/2021 9:19 AM EDTBody Mass Index20.3608 9:19 AM EDT Plan of Treatment Not on file
--- OUTSIDE RECORDS SUMMARY | 2025-03-25 11:56 | XMS_ITS | Encounter Summary ---
Author Organization [email or web address] TapBookAuthor Sys tem Address [id number] [address] [place] [address] Care Team Providers Care Pad Machine Offbearer Name Role Phone ElifGio hilliard Primary Care Provider + [phone] Encounter Details DateTypeDepartmentCare Team (Latest Contact Info)Udxhsfpiqwv53/09/2025[facility]ill [facility] [address] [place] [address] Andrew Daniel CMA Social History Tobacco UseTypesPacks/DayYears UsedDateSmoking Tobacco: OrbkvySyzbuxfobv760 Started: 1995Smokeless Tobacco: NeverAlcohol UseStandard Drinks/WeekCommentsYes0 (1 [...] a week 03/18/2024How often do you attend jainism or anabaptism services?Never4Do you belong to any clubs or organizations such as jainism groups, unions, fraternal or athletic groups, or school groups?Yes03/18/2024How often do you attend meetings of the clubs or organizations you belong to?More than 4 times per year03/18/2024re you , , , , never , or living with a partner?Living with gekknms4703/18/2024UDIT-CAnswerDate Recorded Q1: How often do you have a drink containing alcohol?2-3 times a week03/18/2024 Q2: How many drinks containing alcohol do you have on a typical day when you are drinking?3 or Q3: How often do you have six or more drinks on one occasion?Never03/18/2024HQ-2AnswerDate RecordedTotal Irvyd09805/14/2024hildcare AnswerDate RecordedDo problems getting infant childcare provider make 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 work [...] ValueDate RecordedSex Assigned at BirthNot on fileLegal QceIskbtj88/04/2015 9:55 PM EDTGender IdentityNot on fileSexual OrientationNot on filedocumented as of this encounter Plan of Treatment DateTypeDepartmentCare Team (Latest Contact Info)Mawgceoihue62/09/2026 11:00 AM EDTOffice Visit [facility] [address] [place] [address] Gio Chan, [address] [place] [address] documented as of this encounter Visit Diagnoses Not on filedocumented in this encounter Additional Health Concerns AssessmentNoted TimePHQ-9 Depression Total Score: 11:35 AM EST documented as of this encounter Care Teams Team MemberRelationshipSpecialtyStart DateEnd Date Gio Chan DO [address] [place] [address] PCP - GeneralFamily Medicine08/09/23documented as of this encounter
--- OUTSIDE RECORDS SUMMARY | 2025-03-25 11:56 | XMS_ITS | Encounter Summary ---
Author Organization [facility] Address [facility] [id number] [address] [place] [address] Care Team Providers Care Photocomposing Keyboard Operator Name Role Phone ElifGio hilliard Primary Care Provider + [phone] Encounter Details DateTypeDepartmentCare Team (Latest Contact Info)Uyqquoghcym08/09/2025Telephone [facility] [address] [place] [address] Florecita Thomas CMA Social History Tobacco UseTypesPacks/DayYears UsedDateSmoking Tobacco: ZhkeiqHihdswhnzy712 Started: 1995Smokeless Tobacco: NeverAlcohol UseStandard Drinks/WeekCommentsYes0 (1 [...] a week 03/18/2024How often do you attend mandaen or islam services?Never4Do you belong to any clubs or organizations such as mandaen groups, unions, fraternal or athletic groups, or school groups?Yes03/18/2024How often do you attend meetings of the clubs or organizations you belong to?More than 4 times per year03/18/2024re you , , , , never , or living with a partner?Living with ieegaxk8103/18/2024UDIT-CAnswerDate Recorded Q1: How often do you have a drink containing alcohol?2-3 times a week03/18/2024 Q2: How many drinks containing alcohol do you have on a typical day when you are drinking?3 or Q3: How often do you have six or more drinks on one occasion?Never03/18/2024HQ-2AnswerDate RecordedTotal Kcqrm95105/14/2024hildcare AnswerDate RecordedDo problems getting children counselor make 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 work [...] ValueDate RecordedSex Assigned at BirthNot on fileLegal EgcTugyxm10/04/2015 9:55 PM EDTGender IdentityNot on fileSexual OrientationNot on filedocumented as of this encounter Miscellaneous Notes * Telephone Encounter - Florecita Thomas CMA - 03/17/2025 3:10 PM EST Patient called and stated that her Airsupra was going to be 400.00. Is there anything else you can send in for her? documented in this encounter Plan of Treatment DateTypeDepartmentCare Team (Latest Contact Info)Nieldsgmqhv33/09/2026 11:00 AM EDTOffice Visit [facility] [address] [place] [address] Gio Chan DO [address], [place] [address] documented as of this encounter Visit Diagnoses Not on filedocumented in this encounter Additional Health Concerns AssessmentNoted TimePHQ-9 Depression Total Score: 11:35 AM EST documented as of this encounter Care Teams Team MemberRelationshipSpecialtyStart DateEnd Date Gio Chan DO [address], [place] [address] PCP - GeneralFamily Medicine08/09/23documented as of this encounter
--- OUTSIDE RECORDS SUMMARY | 2025-03-25 11:56 | XMS_ITS | Encounter Summary ---
Author Organization [facility] tem Address [id number] [address] [place] [address] Care Team Providers Care Sql Ssis Developer Name Role Phone Gio Chan DO Primary Care Provider + [phone] Encounter Details DateTypeDepartmentCare Team (Latest Contact Info)Luyacrrwpjt12/06/2025Results [facility] [address] [place] [address] Gio Chan DO [address], [place] [address] Drug Screen, Urine Social History Tobacco UseTypesPacks/DayYears UsedDateSmoking Tobacco: QxtrzyPiszqiqlsf076 Started: 1995Smokeless Tobacco: NeverAlcohol UseStandard Drinks/WeekCommentsYes0 (1 standard drink = 0.6 oz pure alcohol)occassionallyAHC UtilitiesAnswerDate RecordedIn the past 12 months has the [employer], oil, or water [employer] threatened to shut off services in your home?No03/18/2024Social Connection and Isolation PanelAnswerDate RecordedIn a typical week, how many times do you talk on the phone with family, friends, or neighbors?More than three times a week 03/18/2024How often do you get together with friends or relatives?Once a week 03/18/2024How often do you attend jewish or caodaism services?Never03/18/2024o you belong to any clubs or organizations such as jewish groups, unions, fraternal or athletic groups, or school groups?Yes03/18/2024How often do you attend meetings of the clubs or organizations you belong to?More than 4 times per year03/18/2024re you , , , , never , or living with a partner?Living with jupupts7203/18/2024UDIT-CAnswerDate Recorded Q1: How often do you have a drink containing alcohol?2-3 times a week03/18/2024 Q2: How many drinks containing alcohol do you have on a typical day when you are drinking?3 or Q3: How often do you have six or more drinks on one occasion?Never03/18/2024HQ-2AnswerDate RecordedTotal Rrqmf40305/14/2024hildcare AnswerDate RecordedDo problems getting child welfare caseworker [...] ValueDate RecordedSex Assigned at BirthNot on fileLegal BraIsoidj75/04/2015 9:55 PM EDTGender IdentityNot on fileSexual OrientationNot on filedocumented as of this encounter Plan of Treatment DateTypeDepartmentCare Team (Latest Contact Info)Duzwnnfbmjb72/09/2026 11:00 AM EDTOffice Visit [facility] [address] [place] [address] Gio Chan, DO [address], [place] [address] documented as of this encounter Visit Diagnoses Not on filedocumented in this encounter Additional Health Concerns AssessmentNoted TimePHQ-9 Depression Total Score: 11:35 AM EST documented as of this encounter Care Teams Team MemberRelationshipSpecialtyStart DateEnd Date Gio Chan DO [address] [facility], [place] [address] PCP - GeneralFamily Medicine08/09/23documented as of this encounter
--- OUTSIDE RECORDS SUMMARY | 2025-03-25 11:56 | XMS_ITS | Encounter Summary ---
Author Organization [employer] s tem Address [id number] [address] [place] [address] Care Team Providers Care Date Night Caregiver Name Role Phone RocioRojasGioella Pappas DO Primary Care Provider + [phone] Encounter Details DateTypeDepartmentCare Team (Latest Contact Info)Jtrrqvkxkzl22/05/2025Travel Social History Tobacco UseTypesPacks/DayYears UsedDateSmoking Tobacco: NwlpatUrttqcysaq778 Started: 1995Smokeless Tobacco: NeverAlcohol UseStandard Drinks/WeekCommentsYes0 (1 standard drink = 0.6 oz pure alcohol)occassionallyAHC UtilitiesAnswerDate RecordedIn the past 12 months has the electric, gas, oil, or water [employer] threatened to shut off services in your home?No03/18/2024Social Connection and Isolation PanelAnswerDate RecordedIn a typical week, how many times do you talk on the phone with family, friends, or neighbors?More than three times a week 03/18/2024How often do you get together with friends or relatives?Once a week 03/18/2024How often do you attend druze or congregation services?Never03/18/2024o you belong to any clubs or organizations such as druze groups, unions, fraternal or athletic groups, or school groups?Yes03/18/2024How often do you attend meetings of the clubs or organizations you belong to?More than 4 times per year03/18/2024re you , , , , never , or living with a partner?Living with jticbnw5703/18/2024UDIT-CAnswerDate Recorded Q1: How often do you have a drink containing alcohol?2-3 times a week03/18/2024 Q2: How many drinks containing alcohol do you have on a typical day when you are drinking?3 or Q3: How often do you have six or more drinks on one occasion?Never03/18/2024HQ-2AnswerDate RecordedTotal Soobw35205/14/2024hildcare AnswerDate RecordedDo problems getting child's nurse make 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 work [...] ValueDate RecordedSex Assigned at BirthNot on fileLegal BiiZsqczz90/04/2015 9:55 PM EDTGender IdentityNot on fileSexual OrientationNot on filedocumented as of this encounter Plan of Treatment DateTypeDepartmentCare Team (Latest Contact Info)Yfamexfgenc20/09/2026 11:00 AM EDTOffice Visit [facility] [address] [place] [address] Gio Chan DO [address] [address] documented as of this encounter Visit Diagnoses Not on filedocumented in this encounter Additional Health Concerns AssessmentNoted TimePHQ-9 Depression Total Score: 11:35 AM EST documented as of this encounter Care Teams Team MemberRelationshipSpecialtyStart DateEnd Date Gio Chan DO [address] [place] [address] [facility]08/09/23documented as of this encounter
--- OUTSIDE RECORDS SUMMARY | 2025-03-25 11:56 | XMS_ITS | Encounter Summary ---
Author Organization [facility] [employer] s tem Address [id number] [address] [place] [address] Care Team Providers Care Oxygen Plant Operator Name Role Phone Gio Chan DO Primary Care Provider + [phone] Encounter Details DateTypeDepartmentCare Team (Latest Contact Info)Tzcgoufzwos02/09/2025Orders Only [facility] [address] [place] [address] Gio Chna DO [address], [place] [address] Reactive airway disease without complication, unspecified asthma severity, unspecified whether persistent (Primary Dx) Social History Tobacco UseTypesPacks/DayYears UsedDateSmoking Tobacco: QnksmbLtqjmuqaut486 Started: 1995Smokeless Tobacco: NeverAlcohol UseStandard Drinks/WeekCommentsYes0 (1 standard drink = 0.6 oz pure alcohol)occassionallyAHC UtilitiesAnswerDate RecordedIn the past 12 months has the [employer], gas, oil, or water [employer] threatened to shut off services in your home?No03/18/2024Social Connection and Isolation PanelAnswerDate RecordedIn a typical week, how many times do you talk on the phone with family, friends, or neighbors?More than three times a week 03/18/2024How often do you get together with friends or relatives?Once a week 03/18/2024How often do you attend rastafari or adventist services?Never4Do you belong to any clubs or organizations such as rastafari groups, unions, fraternal or athletic groups, or school groups?Yes03/18/2024How often do you attend meetings of the clubs or organizations you belong to?More than 4 times per year03/18/2024re you , , , , never , or living with a partner?Living with tzsrqmq4603/18/2024UDIT-CAnswerDate Recorded Q1: How often do you have a drink containing alcohol?2-3 times a week03/18/2024 Q2: How many drinks containing alcohol do you have on a typical day when you are drinking?3 or Q3: How often do you have six or more drinks on one occasion?Never03/18/2024HQ-2AnswerDate RecordedTotal Llsrm92805/14/2024hildcare AnswerDate RecordedDo problems getting child care centre director make 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 work [...] ValueDate RecordedSex Assigned at BirthNot on fileLegal IyjHjkwzk60/04/2015 9:55 PM EDTGender IdentityNot on fileSexual OrientationNot on filedocumented as of this encounter Plan of Treatment DateTypeDepartmentCare Team (Latest Contact Info)Aidjjrdxowz26/09/2026 11:00 AM EDTOffice Visit [facility] [address] [place] [address] Gio Chan, DO [address], [place] [address] documented as of this encounter Visit Diagnoses Diagnosis Reactive airway disease without complication, unspecified asthma severity, unspecified whether persistent- Primary documented in this encounter Additional Health Concerns AssessmentNoted TimePHQ-9 Depression Total Score: 11:35 AM EST documented as of this encounter Care Teams Team MemberRelationshipSpecialtyStart DateEnd Date Gio Chan DO [address], [facility] [place] [address] PCP - GeneralFamily Medicine08/09/23documented as of this encounter
--- OUTSIDE RECORDS SUMMARY | 2025-03-25 11:57 | XMS_ITS | Patient Health Record ---
Author Organization [facility] Address [address] [place] [address] Care Team Providers Care Volcanology Professor Name Role Phone Ronenblane Jose Primary Care Provider [phone] Raquel Sheffield Unavailable [phone] Claritza Esteban Unavailable [phone] Maria R Crowder Unavailable [phone] Reason For Referral No Information Encounters Encounter Location Date Provider Diagnosis [facility] [address] [place] [address] 02/03/2025 Maria R Crowder [facility] [address] [place] [address]/14/2025 Maria R YiEncounter for dental examination and cleaning with abnormal findings Z01.21 ; Other dental procedure status Z98.818 and Dental caries on pit and fissure surface penetrating into dentin K02.52 Assessments Encounter Date Diagnosis (ICD Code) Assessment Notes Treatment Notes Treatment Clinical Notes Section Notes 01/20/2025 Encounter for dental examination and cleaning with abnormal findings (ICD-10 - Z01.21) 01/20/2025Other dental procedure status (ICD-10 - Z98.818)01/20/2025Dental caries on pit and fissure surface penetrating into dentin (ICD-10 - K02.52) Plan Of Treatment Next Appt Details Provider Name:Maria R Crowder, 02:00:00 PM, [address] [place], [address], Provider Name:Sultana Hernandez, 07/29/2025 03:30:00 PM, [address], [place], [address], Insurance Providers Payer Name Payer Address Payer Phone Subscriber Number Group Number Insured Name Patient Relationship to Insured Coverage Start Date Coverage End Date MEDICARE CGS [facility] [phone] [id number] Juan MALDONADO - patient is the [id number] 2023 MED[address]ARE [address] [address] [place] [id number], KATHRYNSelf - patient is the [id number] 2023[facility] [address] [place], [place] [id number], KATHRYNSelf - patient is the [id number] 2023
--- OUTSIDE RECORDS SUMMARY | 2025-03-25 11:57 | XMS_ITS | Clinical Summary ---
Author Organization [employer] tem Address [id number] [address] [place] [address] Care Team Providers Care Sales Analyst Name Role Phone Gio Chan DO Primary Care Provider + [phone] Allergies No known active allergies Medications MedicationSigDispense QuantityRefillsLast FilledStart DateEnd DateStatus famotidine (PEPCID) 20 mg tablet TAKE 1 TABLET BY MOUTH 2 TIMES A DAY NEEDED FOR HEARTBURN. 180 tablet 5Active busPIRone (BUSPAR) 10 mg tablet TAKE 1 TABLET (10 MG TOTAL) BY MOUTH IN THE MORNING AND BEFORE BEDTIME 180 tablet 5Active LORazepam (ATIVAN) 0.5 mg tablet Indications:AnxietyTake 1 tablet (0.5 mg total) by mouth every 12 (twelve) hours as needed for anxiety. 30 tablet 5Active sertraline (ZOLOFT) 50 mg tablet Take 1.5 tablets (75 mg total) by mouth in the morning. TAKE 1 AND 1/2 TABLETS BY MOUTH IN THE MORNING. 135 tablet 5Active albuterol (PROVENTIL HFA;VENTOLIN HFA) 90 mcg/actuation inhaler Indications:Reactive airway disease without complication, unspecified asthma severity, unspecified whether persistentInhale 2 puffs every 6 (six) hours as needed for wheezing. 18 g 5Active sertraline (ZOLOFT) 50 mg tablet TAKE 1 AND 1/2 TABLETS BY MOUTH IN THE MORNING 135 tablet Discontinued(Reorder) busPIRone (BUSPAR) 10 mg tablet Take 1 tablet (10 mg total) by mouth in the morning and 1 tablet (10 mg total) before bedtime. 60 tablet Discontinued hydrOXYzine (VISTARIL) 25 mg capsule Indications:AnxietyTAKE 1 CAPSULE BY MOUTH 3 TIMES A DAY NEEDED FOR ITCHING. 270 capsule Discontinued(Therapy completed) albuterol-budesonide (AIRSUPRA) 90-80 mcg/actuation HFA aerosol inhaler Inhale 2 puffs every 4 (four) hours as needed (wheeze). 10.7 g Discontinued(Cost of medication) Active Problems ProblemNoted DateDiagnosed DateRecurrent anal squamous cell vpuhykgeq44/03/2025 Thoracic aortic aneurysm without rupture, unspecified part06/09/2024 Assessment & Plan (07/03/2024 9:22 AM EDT): Surveillance imaging with a CT t in a year. Multiple joint pain10/30/2023History of pulmonary /02/2024epression 08/09/20233411Pagtoanrcuo77/02/2024nemia due to iqecghekfmxk79/19/2023ERD (gastroesophageal reflux disease)Anxiety Encounters DateTypeDepartmentCare BqdvJetanfdbqyc71/09/2025Orders Only [facility] [address] [place] [address] Gio Chan, DO Reactive airway disease without complication, unspecified asthma severity, unspecified whether persistent (Primary Dx)03/17/2025Telephone [facility] [address] [place] [address] Florecita Thomas [facility] 03/17/2025Refill [facility] [address] [place] [address] Andrew Daniel [facility] 03/14/2025Results Follow-Up [facility] [address] [place] [address] Gio Chan, DO Drug Screen, Urine03/13/2025 11:30 AM ESTOffice Visit [facility] [address] [place] [address] Gio Chan, DO Anxiety (Primary Dx); Medication management; Reactive airway disease without complication, unspecified asthma severity, unspecified whether qpyaepobzf84/05/8578Rwbzzm74/26/3914Yjibhn38/26/2025 Telephone [facility] [address] [place] [address] Bertha Solomon, [facility] 03/03/2025Refill [facility] [address] [place] [address] Gio Chan, DO 03/02/2025Telephone [facility] [address] [place] [address] Bertha Solomon, [facility] 02/27/2025Orders Only [facility] [address] [place] [address] Gio Chan, DO Ezgnnpc2102/26/2025Telephone [facility] [address] [place] [address] Bertha Solomon, [facility] 02/23/2025Refill [facility] [address] [place] [address] Gio Chan, DO 02/12/2025Refill [facility] [address] [place] [address] Gio Chan, DO Ditfkcs5202/09/2025Orders Only [facility] [address] [place] [address] Ref Prov, Not In System 01/14/2025 11:00 AM EDTOffice Visit [facility] [address] [place] [address] Gio Chan, DO Anxiety (Primary Dx); Depression, unspecified depression type; Seizure (CMS-HCC); Gastroesophageal reflux disease, unspecified whether esophagitis present 01/14/2025Travelfrom Last 3 Months Immunizations ImmunizationAdministration DatesNext DueInfluenza, Trivalent, Adjuvanted 03/18/2024Td (adult), 5 Lf tetanus toxoid, preservative free, ydyryjze68/14/2014 Family History Medical HistoryRelationNameCommentsHeart attackBrotherBobHypertensionBrotherBob Intracerebral hemorrhageBrotherBobfell and hit headCOPDFatherColon cancerFather Lung cancerFatherdied at age 84No Known JawfdrwkZbguvhdlxxqquYVGJEpfeag16 EmphysemaMotherBreast cancerSister 1ShannonCOPDSister 1ShannonThyroid disease Sister 1ShannonBack ProblemsSister 2Mary Patfusion with cageHypertensionSister 2 Anay PatThyroid diseaseSister 2Mary PatNo Known ProblemsSister 3Gretchen DepressionSister 4GraceOD on street drugs-cocaine, EtOH and MJ with antidepressantsNo Known ProblemsSon 1No Known ProblemsSon 2RelationNameStatus CommentsBrotherBobDeceasedFatherDeceasedGranddaughterAliveMotherDeceasedSister 1 ShannonAliveSister 2Mary PatAliveSister 3GretchenAliveSister 4GraceDeceasedSon 1 AliveSon 2Alive Social History Tobacco UseTypesPacks/DayYears UsedDateSmoking Tobacco: JdxacuShijbqoxpy286 Started: 1993Smokeless Tobacco: Never Tobacco Cessation:Counseling Given: Not Answered Alcohol UseStandard Drinks/WeekCommentsYes0 (1 standard drink = 0.6 oz pure alcohol)occassionallyAHC UtilitiesAnswerDate RecordedIn the past 12 months has the electric, gas, oil, or water [employer] threatened to shut off services in your home?No03/18/2024Social Connection and Isolation PanelAnswerDate RecordedIn a typical week, how many times do you talk on the phone with family, friends, or neighbors?More than three times a week03/18/2024How often do you get together with friends or relatives?Once a week03/18/2024How often do you attend druze or restoration services?Never03/18/2024o you belong to any clubs or organizations such as druze groups, unions, fraternal or athletic groups, or school groups? Yes03/18/2024How often do you attend meetings of the clubs or organizations you belong to?More than 4 times per year03/18/2024re you , , , , never , or living with a partner?Living with partner 03/18/2024UDIT-CAnswerDate RecordedQ1: How often do you have a drink containing alcohol?2-3 times a week03/18/2024Q2: How many drinks containing alcohol do you have on a typical day when you are drinking?3 or Q3: How often do you have six or more drinks on one occasion?Never03/18/2024HQ-2AnswerDate Recorded Total Newvy31905/14/2024hildcareAnswerDate RecordedDo problems getting director child development center make 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 work or study?No03/18/2024EmploymentAnswerDate RecordedDo you need help finding a local career center and/or a training program?No03/18/2024Hunger ScreeningAnswerDate RecordedWithin the past 12 months we worried whether our food would run out before we got money to buy more.Never True03/13/2025Within the past 12 months the food we bought just didn't last and we didn't have money to get more.Never True03/13/2025Purpose - LifeAnswerDate RecordedI have a purpose and direction in my life.Agree03/18/2024 CommentsNoSex and Gender InformationValueDate RecordedSex Assigned at BirthNot on fileLegal GlxCkqmhq18/04/2015 9:55 PM EDTGender IdentityNot on fileSexual OrientationNot on file Last Filed Vital Signs Vital SignReadingTime TakenCommentsBlood Lzmasraf292/8412/08/2024 11:34 AM EST Qatpy5717/08/2024 11:34 AM XNQSlsuhkycrsj07.3 ??C (97.4 ??F)03/13/2025 11:34 AM ESTRespiratory Ttvb584305/14/2024 11:34 AM ESTOxygen Jyvprfpeib70%03/13/2025 11:34 AM ESTInhaled Oxygen Concentration--Ygsmmr88.4 kg (157 lb 6.4 oz)03/13/2025 11:34 AM FVFUzgcie685.9 cm (6' 0.01 )03/13/2025 11:34 AM ESTBody Mass Index21.34 03/13/2025 11:34 AM EST Plan of Treatment DateTypeDepartmentCare Team (Latest Contact Info)Cktogoapudh64/09/2026 11:00 AM EDTOffice Visit [facility] [address] [place] [address] Gio Chan, DO [address], [place] [address] Health MaintenanceDue DateLast DoneCommentsZoster (Shingles) Vaccine (1 of 2) 1977DTaP,Tdap and Td Vaccines (1 - Tdap)RSV ( or age 60+ yrs) (1 - Risk 60-74 years 1-dose series)2018COVID-19 Vaccine (3 - Pfizer risk series)/06/2020, 07/23/20203994Cfxrakjnf34/27/2023 11/02/2021, 11/02/2021, 01/24/2014, Additional history existsMedicare Annual Wellness VisitInfluenza Kbgfddk60ostponed from 12/08/2024 (Patient Refused)Fall Risk Slvaevyvr39dult BMI Mjtfbdosj39Depression Tjzyfwiqx13Tobacco Xkgwtoltr86/1832Abanakomxhw73/19/463245/, 4Pap TqrykHbctbakpsbcu20/25/2012 Medical Devices Not on file Procedures Procedure NamePriorityDate/TimeAssociated DiagnosisCommentsDRUG SCREEN, URINE Yyafsyn0203/13/2025 12:35 PM EST Anxiety Medication management HM DIABETES EYE ANYJXsgaxyw06/03/2025 11:59 AM ESTPROVATION COLONOSCOPYRoutine 08/25/2024 11:23 AM EDT from Last 3 Months or Most Recently Relevant to Health Maintenance Results * Drug Screen, Urine (03/13/2025 12:35 PM EST)ComponentValueRef RangeTest Method Analysis TimePerformed AtPathologist SignatureAMPHETAMINE/METHAMPNegative Znazudnx17/05/2025 6:07 PM [facility]: AMPH/METH screening cut off = 1000 ng/mLCOCAINE METABOLITENegativeNegative 03/13/2025 6:07 PM [facility]ORYComment:Cocaine screening cut off value = 300 ng/kEOLEBXAOZyfzzerqWihcryyl94/05/2025 6:07 PM [facility]ORYComment:Ecstasy screening cut off value = 500 ng/zHCZVMLXENSYhwdockbQgnnqjsv30/05/2025 6:07 PM [facility]ORYComment:Methadone screening cut off value = 300 ng/mL.Opiates PllepctzFcpqdaml84/05/2025 6:07 PM [facility] Comment: Opiates screening cut off value = 300 ng/mL This test is used for the detection of codeine, hydrocodone (>1000 ng/mL), morphine and hydromorphone (>900 ng/mL) in urine. MUXEDEPOJVdoeddzaAskkznuq10/05/2025 6:07 PM [facility]ORYComment: Oxycodone screening cut off value = 300 ng/mL This test is used for the detection of oxycodone and oxymorphone in urine. MFHSICNHOFCRTZpiwisudJxotepic51/05/2025 6:07 PM [facility]ORYComment:Phencyclidine screening cut off value = 25 ng/mLCANNABINOIDS IjqjhqmcCjhdjpoq69/05/2025 6:07 PM [facility] Comment:Cannabinoids/THC screening cut off value = 50 ng/mLUrine Barbiturates UlqnohnnSluerrmy78/05/2025 6:07 PM [facility] Comment:Barbiturates screening cut off value = 200 ng/mLBENZODIAZEPINESNegative Anhmcchd32/05/2025 6:07 PM [facility]ORYComment: Benzodiazepines screening cut off value = 200 ng/mLSpecimen (Source)Anatomical Location / LateralityCollection Method / VolumeCollection TimeReceived TimeUrine 03/13/2025 12:35 PM EST03/13/2025 12:35 PM EST Narrative Authorizing ProviderResult TypeResult StatusDennis G Furlong DOURINE ORDERABLES Final ResultPerforming OrganizationAddressCity/State/ZIP CodePhone Number [facility] [address] [place] [address], * DIABETES EYE EXAM (02/09/2025 11:59 AM EST) Narrative Authorizing ProviderResult TypeResult StatusNot In System Ref ProvHEALTH MAINTENANCEFinal ResultPerforming OrganizationAddressCity/State/ZIP CodePhone Number MANUALLY TRANSCRIBED RESULTS * Colonoscopy Report (08/25/2024 11:23 AM EDT)Specimen (Source)Anatomical Location / LateralityCollection Method / VolumeCollection TimeReceived Time Narrative SYSTEMGENERATED, DOCUMENTATION - 08/25/2024 11:23 AM EDT This order has been auto-finalized for image and report archival in PACs. *For full report details, please reach out to your physician. ??This image is visible to you in MyChart.* Authorizing ProviderResult TypeResult StatusMichael E Grillis DOIMG OR IMG ORDERABLESFinal Result from Last 3 Months or Most Recently Relevant to Health Maintenance Insurance * Guarantor: Amber LunaAccoyenny TypeRelation to PatientDate of PhoneBilling AddressPersonal/QyoosoWwfp24/26/1961 [facility] [place] [address] Care Teams Team MemberRelationshipSpecialtyStart DateEnd Date Gio Chan DO [address], [place] [address] [facility]
[2025-03-25 12:10] LABS: Estimated GFR (African America 36 (>=60 mL/min/1.73m^2); Estimated GFR (Non-African Ame 30 (>=60 mL/min/1.73m^2)
[2025-03-25 12:11] LABS: Blood Urea Nitrogen 33.0 mg/dL (7.0-18.0)
--- NOTE | 2025-03-25 12:17 | MR_ITS ---
The [address] [address] Patient Name: LESVIA MALDONADO MRN: [id number] date: 1960 Sex: F Assigned Patient Location: LAB Current Patient Location: LAB Accession/Order Number: [id number] Exam Date: 03/25/2025 12:47 Report Date: 03/27/2025 14:28 At the request of: LAWANDA CA MD Procedure: MR pelvis wo/w con MRI OF THE PELVIS WITH AND WITHOUT CONTRAST: CLINICAL HISTORY: Anal cancer follow-up COMPARISON: MRI pelvis 12/15/2021 TECHNIQUE: Multisequence, multiplanar imaging of the pelvis was obtained before and after the use of IV contrast. Please note that anal/rectal protocol was not utilized. No small frgjy-xu-lius imaging was obtained. FINDINGS: Once again demonstrated is mild thickening involving the anal canal similar to the prior study. No gross invasion into the adjacent structures is noted. The abnormal enhancement seen on the prior study along the gluteal creases has reduced. Urinary bladder and urethra appear unremarkable. Uterus is atrophic with a small amount of presumed blood seen within the endometrial canal. No adnexal mass. Trace free fluid. No lymphadenopathy. No suspicious bony lesion. MR/MR pelvis wo/w con IMPRESSION: SUBOPTIMAL STUDY DUE TO PROTOCOL. ONCE AGAIN DEMONSTRATED IS MILD THICKENING INVOLVING THE ANAL CANAL SIMILAR TO THE PRIOR STUDY. NO GROSS INVASION INTO ADJACENT STRUCTURES IS SEEN. THE PREVIOUSLY IDENTIFIED ABNORMAL ENHANCEMENT ALONG THE GLUTEAL CREASE IS APPEARS TO HAVE REDUCED SINCE THE PRIOR STUDY. ATTENTION ON FOLLOW-UP IS SUGGESTED. ATROPHIC UTERUS WITH PRESUMED SMALL AMOUNT OF BLOOD SEEN WITHIN THE ENDOMETRIAL CANAL. THIS CAN BE FURTHER EVALUATED BY PELVIC ULTRASOUND. TRACE FREE FLUID.. Impression dictated by: Isaias Zapata Jr., D.O. 03/27/2025 2:28 PM Dictation Location: [place] [address] Electronically authenticated by: [id number] Y Date: 03/27/2025 14:28
== END 2025-03-25 11:52 | disposition home or self-care (01) ==
LOC: LAB 11:51
PROVIDERS: PCP Family Medicine; Visit Provider Internal Medicine Hematology & Oncology
DX: C21.0 Malignant neoplasm of anus, unspecified (principal); D64.9 Anemia, unspecified; D69.6 Thrombocytopenia, unspecified; K90.9 Intestinal malabsorption, unspecified
CPT/HCPCS: 36415; 72197; 82565; 84520; A9575

== ENCOUNTER 2025-03-31 13:25 | Outpatient (RCR) | payer MEDICARE, OTHER, SELFPAY ==
[2025-03-30 13:55] LABS: Hematocrit 44.7 % (36.0-48.0); Hemoglobin 15.4 g/dL (12.0-16.0); Immature Granulocytes Abs Auto 0.01 10^3/uL (0.00-0.03); Immature Granulocytes Pct Auto 0.2 % (0.0-0.5); Lymphocytes Absolute Auto 0.6 10^3/uL (1.2-3.8); Mean Corpuscular HGB Conc 34.5 g/dL (29.9-35.2); Mean Corpuscular Hemoglobin 35.9 pg (26.7-34.0); Mean Corpuscular Volume 104.2 fL (81.0-99.0); Platelet Count 124 10^3/uL (150-450); Red Blood Count 4.29 10^6/uL (4.20-5.40); White Blood Count 4.3 10^3/uL (4.0-11.0)
[2025-03-30 14:08] LABS: Alanine Aminotransferase 20 U/L (14-59); Albumin Globulin Ratio 1.2; Albumin Level 4.2 g/dL (3.4-5.0); Alkaline Phosphatase 152 U/L (46-116); Anion Gap 15.6; Aspartate Amino Transferase 21 U/L (15-37); Blood Urea Nitrogen 27.0 mg/dL (7.0-18.0); Calcium 9.5 mg/dL (8.5-10.1); Carbon Dioxide 23.0 mmol/L (21.0-32.0); Chloride 106 mmol/L (98-107); Estimated GFR (African America 43 (>=60 mL/min/1.73m^2); Estimated GFR (Non-African Ame 36 (>=60 mL/min/1.73m^2); Globulin 3.5 g/dL; Glucose 122 mg/dL (74-106); Potassium 4.6 mmol/L (3.5-5.1); Sodium 140 mmol/L (136-145); Total Protein 7.7 g/dL (6.4-8.2)
[2025-03-30 14:38] LABS: Iron 127.0 ug/dL (50.0-170.0); Percent Iron Saturation 37.5 %; Total Iron Binding Capacity 339.0 ug/dL (250.0-450.0)
[2025-03-30 14:54] LABS: Ferritin 708.0 ng/mL (8.0-252.0); Folate 5.80 ng/mL (8.60-58.90)
[2025-03-31 04:11] LABS: Vitamin B12 222 pg/mL (232-1245)
== END 2025-04-08 23:59 | disposition home or self-care (01) ==
LOC: HEMC 13:25
PROVIDERS: PCP Family Medicine; Visit Provider Internal Medicine Hematology & Oncology
DX: D64.9 Anemia, unspecified (principal); D69.6 Thrombocytopenia, unspecified; K90.9 Intestinal malabsorption, unspecified; R87.89 Other abnormal findings in specimens from female genital organs; Z85.048 Personal history of other malignant neoplasm of rectum, rectosigmoid junction, and anus; N18.9 Chronic kidney disease, unspecified
CPT/HCPCS: 36415; 80053; 82607; 82728; 82746; 83540; 83550; 85025; G0463

== ENCOUNTER 2025-04-07 09:53 | Outpatient (OUT) | payer MEDICARE, OTHER, SELFPAY ==
--- OUTSIDE RECORDS SUMMARY | 2023-10-09 08:00 | XMS_ITS ---
Author Organization [facility] in [place] Address [address] [place] [address] Care Team Providers Care Industrial Tech Instructor Name Role Phone Gio Chan DO Primary Care Provider Unavail able Felicia Mckeon Unavailable [phone] REASON FOR VISIT MD Encounters Encounter Location Date Provider Diagnosis [facility] [address] [place] [address] 10/09/2023 Felicia Mckeon Plan Of Treatment No Information Progress Notes * Amber MALDONADO MDOB: [birth year] (64 yo F)Acc No.[id number]:10/09/2023 UNLOCKED PROGRESS NOTE Progress Notes Patient: Chaitanya DICKINSONAmber BEJARANO Law :?Felicia Lowery M.D.:1960???Age:62 Y ???Sex:FemaleDate:10/09/2023hone:[phone]:[address] [place], [id number]:Gio Chan DO Subjective: * Chief Complaints: * 1 . MD. * Medical History: Objective: * Vitals: Assessment: Plan: * Treatment: * * Electronic signature of Felicia Mckeon MD, [id number] on 04/07/2025 at 09:58 AM ESTSign off status: PendingVisit Status:?CONFPHONE (Voice) * Provider: Mine Lowery M.D. Date: 0 10/09/2023 Generated for Printing/Faxing/eTransmitting on:?04/07/2025 09:58 AM EST
--- OUTSIDE RECORDS SUMMARY | 2023-11-06 05:30 | XMS_ITS ---
Author Organization The [facility] in [place] Address [address] [place] [address] Care Team Providers Care Beadworker Name Role Phone Gio Chan DO Primary Care Provider Unavail able Felicia Mckeon Unavailable [phone] REASON FOR VISIT MD Encounters Encounter Location Date Provider Diagnosis The [facility] [address] [place] [address] 11/06/2023 Felicia Mckeon Plan Of Treatment No Information Progress Notes * Amber MALDONADO MDOB: [birth year] (64 yo F)Acc No.[id number]:11/06/2023 UNLOCKED PROGRESS NOTE Progress Notes Patient: Chaitanya DICKINSONAmber BEJARANO Law :?Felicia Lowery M.D.:1960???Age:63 Y ???Sex:FemaleDate:11/06/2023hone:[phone]:[address] [place], [id number]:Gio Chan DO Subjective: * Chief Complaints: * 1 . MD. * Medical History: Objective: * Vitals: Assessment: Plan: * Treatment: * * Electronic signature of Felicia Mckeon MD, [id number] on 04/07/2025 at 09:56 AM ESTSign off status: PendingVisit Status:?PEN (Pending) * Provider: Mine Lowery M.D. Date: 0 11/06/2023 Generated for Printing/Faxing/eTransmitting on:?04/07/2025 09:56 AM EST
--- OUTSIDE RECORDS SUMMARY | 2024-03-27 08:00 | XMS_ITS ---
Author Organization [facility] Address [address] [place] [address] Care Team Providers Care Sr. Consultant Name Role Phone Jose Quezada Primary Care Provider REASON FOR VISIT CROWN PREP Encounters Encounter Location Date Provider Diagnosis [address] [place] [address] 03/27/2024 Jose Quezada Plan Of Treatment Next Appt Details Provider Name:Maria R Crowder, 02:00:00 PM, [address], [place], [address], Provider Name:Sultana Hernandez, 07/29/2025 03:30:00 PM, [address] [place], [address], Progress Notes * LESVIA MALDONADO MDOB: [birth year] (64 yo F)Acc No.[id number]:03/27/2024 Patient:?LESVIA MALDONADO :?CURT PrinceOB:1960???Age:63 Y ???Sex:FemaleDate:03/27/2024hone:[phone]:[address], [id number] Subjective: * Chief Complaints: * C ROWN PREP * Electronic signature of Jose Quezada DDS on 04/07/2025 at 09:56 AM ESTSign off status: Pending * Provider: Mine Quezada DDS Date: 05/28/2023 Generated for Printing/Faxing/eTransmitting on:?04/07/2025 09:56 AM EST
--- OUTSIDE RECORDS SUMMARY | 2024-05-13 05:30 | XMS_ITS ---
Author Organization The [facility] in [place] Address [address] [place] [address] Care Team Providers Care Broker Agricultural Produce Name Role Phone Gio Chan DO Primary Care Provider Unavail able Felicia Mckeon Unavailable [phone] REASON FOR VISIT MD Encounters Encounter Location Date Provider Diagnosis The [facility] [address] [place] [address] 05/13/2024 Felicia Mckeon Plan Of Treatment No Information Progress Notes * Amber MALDONADO MDOB: [birth year] (64 yo F)Acc No.[id number]:05/13/2024 UNLOCKED PROGRESS NOTE Progress Notes Patient: Chaitanya DICKINSONAmber BEJARANO Law :?Felicia Lowery M.D.:1960???Age:63 Y ???Sex:FemaleDate:05/13/2024Phone:[phone]:[address] [place], [place]Xuh:Gio Chan DO Subjective: * Chief Complaints: * 1 . MD. * Medical History: Objective: * Vitals: Assessment: Plan: * Treatment: * * Electronic signature of Felicia Mckeon MD, [id number] on 04/07/2025 at 09:57 AM ESTSign off status: PendingVisit Status:?CONFPHONE (Voice) * Provider: Mine Lowery M.D. Date: 0 05/13/2024 Generated for Printing/Faxing/eTransmitting on:?04/07/2025 09:57 AM EST
--- OUTSIDE RECORDS SUMMARY | 2024-08-05 08:00 | XMS_ITS ---
Author Organization The [facility] in [place] Address [address] [place] [address] Care Team Providers Care Manager Float Name Role Phone Gio Chan DO Primary Care Provider Unavail able Felicia Mckeon Unavailable [phone] REASON FOR VISIT MD Encounters Encounter Location Date Provider Diagnosis [facility] Oncology [address] [place] [address] 08/05/2024 Felicia Mckeon Plan Of Treatment No Information Progress Notes * Amber MALDONADO MDOB: [birth year] (64 yo F)Acc No.[id number]:08/05/2024 UNLOCKED PROGRESS NOTE Progress Notes Patient: Chaitanya DICKINSONAmber BEJARANO Law :?Felicia Lowery M.D.:1960???Age:63 Y ???Sex:FemaleDate:08/05/2024Phone:[phone]:[address] [place], [place]Jzr:Gio Chan DO Subjective: * Chief Complaints: * 1 . MD. * Medical History: Objective: * Vitals: Assessment: Plan: * Treatment: * * Electronic signature of Felicia Mckeon MD, [id number] on 04/07/2025 at 09:58 AM ESTSign off status: PendingVisit Status:?VOICEMSG (Voice) * Provider: Mine Lowery M.D. Date: 0 08/05/2024 Generated for Printing/Faxing/eTransmitting on:?04/07/2025 09:58 AM EST
--- OUTSIDE RECORDS SUMMARY | 2024-10-23 09:15 | XMS_ITS ---
Author Organization The [facility] in [place] Address [address] [place] [address] Care Team Providers Care Counselor Aid Name Role Phone Gio Chan DO Primary Care Provider Unavail able Felicia Mckeon Unavailable [phone] REASON FOR VISIT MD Encounters Encounter Location Date Provider Diagnosis [facility] Oncology [address] [place] [address] 10/23/2024 Felicia Mckeon Plan Of Treatment No Information Progress Notes * Amber MALDONADO MDOB: [birth year] (64 yo F)Acc No.[id number]:10/23/2024 UNLOCKED PROGRESS NOTE Progress Notes Patient: Chaitanya DICKINSONAmber BEJARANO Law :?Felicia Lowery M.D.:1960???Age:63 Y ???Sex:FemaleDate:10/23/2024Phone:[phone]:[address] [place], [place]Mag:Gio Chan DO Subjective: * Chief Complaints: * 1 . MD. * Medical History: Objective: * Vitals: Assessment: Plan: * Treatment: * * Electronic signature of Felicia Mckeon MD, [id number] on 04/07/2025 at 09:58 AM ESTSign off status: PendingVisit Status:?CANC (Cancelled) * Provider: Mine Lowery M.D. Date: 0 10/23/2024 Generated for Printing/Faxing/eTransmitting on:?04/07/2025 09:58 AM EST
--- OUTSIDE RECORDS SUMMARY | 2024-10-28 09:00 | XMS_ITS ---
Author Organization The [facility] in [place] Address [address] [place] [address] Care Team Providers Care Roaster Helper Name Role Phone Gio Chan DO Primary Care Provider Unavail able Felicia Mckeon Unavailable [phone] REASON FOR VISIT MD Encounters Encounter Location Date Provider Diagnosis [facility] Oncology [address] [place] [address] 10/28/2024 Felicia Mckeon Plan Of Treatment No Information Progress Notes * Amber MALDONADO MDOB: [birth year] (64 yo F)Acc No.[id number]:10/28/2024 UNLOCKED PROGRESS NOTE Progress Notes Patient: Chaitanya DICKINSONAmber BEJARANO Law :?Felicia Lowery M.D.:1960???Age:63 Y ???Sex:FemaleDate:10/28/2024Phone:[phone]:[address] [place], [place]Fuw:Gio Chan DO Subjective: * Chief Complaints: * 1 . MD. * Medical History: Objective: * Vitals: Assessment: Plan: * Treatment: * * Electronic signature of Felicia Mckeon MD, [id number] on 04/07/2025 at 09:58 AM ESTSign off status: PendingVisit Status:?CANC (Cancelled) * Provider: Mine Lowery M.D. Date: 0 10/28/2024 Generated for Printing/Faxing/eTransmitting on:?04/07/2025 09:58 AM EST
--- OUTSIDE RECORDS SUMMARY | 2024-11-10 08:00 | XMS_ITS ---
Author Organization [facility] Servic es Address [address] [place] [address] Care Team Providers Care Dress Shoe Inspector Name Role Phone Jose Quezada Primary Care Provider [phone] REASON FOR VISIT CROWN PREP Encounters Encounter Location Date Provider Diagnosis [address] [place] [address] 11/10/2024 Jose Quezada Plan Of Treatment Next Appt Details Provider Name:Maria R Crowder, 02:00:00 PM, [address], [place], [address], Provider Name:Sultana Hernandez, 07/29/2025 03:30:00 PM, [address], [place], [address], Progress Notes * LESVIA MALDONADO MDOB: [birth year] (64 yo F)Acc No.[id number]:11/10/2024 Patient:?LESVIA MALDONADO :?CURT PrinceOB:1960???Age:64 Y ???Sex:FemaleDate:11/10/2024Phone:[phone]:[address], [id number] Subjective: * Chief Complaints: * C ROWN PREP * Electronic signature of Jose Quezada DDS on 04/07/2025 at 09:59 AM ESTSign off status: Pending * Provider: Mine Quezada DDS Date: 0 11/10/2024 Generated for Printing/Faxing/eTransmitting on:?04/07/2025 09:59 AM EST
--- OUTSIDE RECORDS SUMMARY | 2024-11-18 08:45 | XMS_ITS ---
Author Organization [facility] in [place] Address [address] [place] [address] Care Team Providers Care Internet Sales Consultant Name Role Phone Gio Chan DO Primary Care Provider Unavail able Felicia Mckeon Unavailable [phone] REASON FOR VISIT MD Encounters Encounter Location Date Provider Diagnosis [facility] Oncology [address] [place] [address] 11/18/2024 Felicia Mckeon Plan Of Treatment No Information Progress Notes * Amber MALDONADO MDOB: [birth year] (64 yo F)Acc No.[id number]:11/18/2024 UNLOCKED PROGRESS NOTE Progress Notes Patient: Chaitanya DICKINSONAmber BEJARANO Law :?Felicia Lowery M.D.:1960???Age:64 Y ???Sex:FemaleDate:11/18/2024Phone:[phone]:[address] [place], [place]Pdy:Gio Chan DO Subjective: * Chief Complaints: * 1 . MD. * Medical History: Objective: * Vitals: Assessment: Plan: * Treatment: * * Electronic signature of Felicia Mckeon MD, [id number] on 04/07/2025 at 09:58 AM ESTSign off status: PendingVisit Status:?CONFPHONE (Voice) * Provider: Mine Lowery M.D. Date: 0 11/18/2024 Generated for Printing/Faxing/eTransmitting on:?04/07/2025 09:58 AM EST
--- OUTSIDE RECORDS SUMMARY | 2024-12-09 08:00 | XMS_ITS ---
Author Organization [facility] Servic es Address [address] [place] [address] Care Team Providers Care Medical Professionals Name Role Phone Jose Quezada Primary Care Provider REASON FOR VISIT CROWN SEAT Encounters Encounter Location Date Provider Diagnosis [address] [address] 12/09/2024 Jose Quezada Plan Of Treatment Next Appt Details Provider Name:Maria R Crowder, 02:00:00 PM, [address], [place], [address], Provider Name:Sultana Hernandez, 07/29/2025 03:30:00 PM, [address] [place], [address], Progress Notes * LESVIA MALDONADO MDOB: [birth year] (64 yo F)Acc No.[id number]:12/09/2024 Patient:?LESVIA MALDONADO :?CURT PrinceOB:1960???Age:64 Y ???Sex:FemaleDate:12/09/2024Phone:[phone]:[address], [id number] Subjective: * Chief Complaints: * C ROWN SEAT * Electronic signature of Jose Quezada DDS on 04/07/2025 at 09:57 AM ESTSign off status: Pending * Provider: Mine Quezada DDS Date: 0 12/09/2024 Generated for Printing/Faxing/eTransmitting on:?04/07/2025 09:57 AM EST
--- OUTSIDE RECORDS SUMMARY | 2025-01-08 05:00 | XMS_ITS ---
Author Organization [facility] Serv[facility] es Address [address] [place] [address] Care Team Providers Care Compensation Expert Name Role Phone Jose Quezada Primary Care Provider [phone] [phone] REASON FOR VISIT CRACKED TOOTH/PERIODIC Encounters Encounter Location Date Provider Diagnosis [facility] [address] [place] [address] 01/08/2025 Claritza Esteban Plan Of Treatment Next Appt Details Provider Name:Maria R Crowder, 02:00:00 PM, [address] [place], [address], Provider Name:Sultana Hernandez, 07/29/2025 03:30:00 PM, [address] [place], [address], Progress Notes * LESVIA MALDONADO MDOB: [birth year] (64 yo F)Acc No.[id number]:01/08/2025 Patient:?LESVIA MALDONADO :?Claritza EstebanDOB:1960???Age:64 Y???Sex: FemaleDate:01/08/2025Phone:[phone]:[address] [place]-[id number]:Agnish M Gholekar Subjective: * Chief Complaints: * C RACKED TOOTH/PERIODIC Billing Information: * Procedure Codes: * Electronic signature of Claritza Esteban DMD on 04/07/2025 at 09:57 AM ESTSign off status: Pending * Provider: Akash Esteban Date: 1 Generated for Printing/Faxing/eTransmitting on:?04/07/2025 09:57 AM EST
--- OUTSIDE RECORDS SUMMARY | 2025-03-31 08:30 | XMS_ITS ---
Author Organization The [facility] in [place] Address [address] [place] [address] Care Team Providers Care Power Engineer Name Role Phone Gio Chan DO Primary Care Provider Unavail able Felicia Mckeon Unavailable [phone] REASON FOR VISIT MD Encounters Encounter Location Date Provider Diagnosis [facility] On[facility] [address] [place] [address] 03/31/2025 Felicia Mckeon Plan Of Treatment No Information Progress Notes * Amber MALDONADO MDOB: [birth year] (64 yo F)Acc No.[id number]:03/31/2025 UNLOCKED PROGRESS NOTE Progress Notes Patient: Chaitanya DICKINSONAmber BEJARANO Law :?Felicia Lowery M.D.:1960???Age:64 Y ???Sex:FemaleDate:03/31/2025Phone:[phone]:[phone] [place], [place]Kwu:Gio Chan DO Subjective: * Chief Complaints: * 1 . MD. * Medical History: Objective: * Vitals: Assessment: Plan: * Treatment: * * Electronic signature of Felicia Mckeon MD, [id number] on 04/07/2025 at 09:58 AM ESTSign off status: PendingVisit Status:?PEN (Pending) * Provider: Mine Lowery M.D. Date: 06/01/2024 Generated for Printing/Faxing/eTransmitting on:?04/07/2025 09:58 AM EST
--- NOTE | 2025-04-07 09:55 | US_ITS ---
The [address] [address] Patient Name: LESVIA MALDONADO MRN: [id number] date: 1960 Sex: F Assigned Patient Location: US Current Patient Location: US Accession/Order Number: [id number] Exam Date: 04/07/2025 10:00 Report Date: 04/07/2025 11:02 At the request of: LAWANDA CA MD Procedure: US pelvis transvaginal ULTRASOUND PELVIS TRANSVAGINAL COMPARISON: PET/CT 07/21/2024 and MRI pelvis 03/25/2025 CLINICAL DATA: History of anal cancer. Endometrial fluid on MRI. Real-time ultrasound evaluation pelvis was performed utilizing a transvaginal approach. The uterus is small and retroverted. Estimated size is approximately 3.3 x 2.5 x 3.8 cm. There are echogenic foci within the myometrium which may be calcifications. There is fluid within the endometrial canal which measures approximately 1 cm in thickness. An echogenic focus also projects within the endometrial cavity. Neither ovary is identified. No adnexal cysts are identified. No free fluid is seen. US/US pelvis transvaginal IMPRESSION: ATROPHIC UTERUS. THICKENED ENDOMETRIUM CONTAINING FLUID. MYOMETRIAL CALCIFICATIONS. FIBROID DISEASE IS NOT EXCLUDED. Impression dictated by: Miryam Fuller M.D. 04/07/2025 11:02 AM Dictation Location: [place] [address] Electronically authenticated by: [id number] Y Date: 04/07/2025 11:02
--- OUTSIDE RECORDS SUMMARY | 2025-04-07 09:57 | XMS_ITS | Clinical Summary ---
Author Organization [facility] Address [address] [place] [address] Care Team Providers Care Safe Deposit Attendant Name Role Phone Mehreen Randhawa MD Primary Care Provider [phone] Elizabeth Garnica ROOM SERVICE SUPERVISOR Unavailable [phone] Allergies No known active allergies Medications MedicationSigDispense [...] cream APPLY THIN LAYER TO AFFECTED AREA CNVKOFZM34/19/2023ctive loratadine (Claritin) 10 MG tablet 1 (one) time each day at the same time.Active pantoprazole (ProtoNix) 20 MG EC tablet Take 20 mg by mouth in the morning.12/07/2022ctive senna (Senokot) 8.6 MG tablet 08/28/2022ctive sertraline (Zoloft) 50 MG tablet Indications:Depression with anxietyTAKE 1 TABLET BY MOUTH EVERY DAY 90 tablet ctive Active Problems ProblemNoted DateDiagnosed DateSeasonal azcrqmsct95/14/2023Malignant neoplasm of overlapping sites of rectum, anus and anal canal12/21/2022epression with qkkntbh4212/21/2022Malignant tumor of anus12/21/2022 Family History Medical HistoryRelationNameCommentsCancerFatherPulmonary issuesMotherRelation NameStatusCommentsFatherMother Social History Tobacco UseTypesPacks/DayYears UsedDateSmoking Tobacco: Every DayCigarettes Smokeless Tobacco: Never Tobacco Cessation:Ready to Q uit: Not Asked; Counseling Given: Not Answered Alcohol UseStandard Drinks/WeekCommentsYes2 (1 standard drink = 0.6 oz pure alcohol)CommentsUnknownSex and Gender InformationValueDate RecordedSex Assigned at BirthNot on fileLegal ItdRscwen97/15/2023 9:44 PM EDTGender Identity Not on fileSexual OrientationNot on file Last Filed Vital Signs Vital SignReadingTime TakenCommentsBlood Yawpztgk594/80011/09/2021 12:00 PM EDT Pulse--Temperature--Respiratory Rate--Oxygen Saturation--Inhaled Oxygen Concentration--Xreeog85.7 kg (147 lb)11/09/2021 12:00 PM RCCYomewn024.6 cm (5' 11.5 )11/09/2021 12:00 PM EDTBody Mass Index20.22011/09/2021 12:00 PM EDT Plan of Treatment Not on file Care Teams Team MemberRelationshipSpecialtyStart DateEnd Date Mehreen Randhawa MD [address] [place] [address] PCP - GeneralFamily Medicine12/21/22 Elizabeth Garnica NP [address] [place] [address] Nurse PractitionerFamily Medicine12/21/22
--- OUTSIDE RECORDS SUMMARY | 2025-04-07 09:57 | XMS_ITS | Patient Health Record ---
Author Organization The [facility] in [place] Address [address] [place] [address] Care Team Providers Care Parking Lot Spotter Name Role Phone RickGio arrieta DO Primary Care Provider Unavail able Felicia Mckeon Unavailable [phone] Results Component Value Reference Range Notes FERRITIN (Not yet reviewed b y provider) Interpretation: Performing Lab: Notes/Report: [facility] , Ferritin 739.0 8.0-252.0 ng/mL Performing Lab:see noteML - [facility] LBFOLATE (Not yet reviewed by provider) Interpretation: Performing Lab: Notes/Report: [facility] ,Folate4.808.60-58.90 ng/mLPerforming Lab:see noteML - [facility] LB PROF 14(COMP METB) (Not yet reviewed by provider) Interpretation: Performing Lab: Notes/Report: [facility] ,Apllnb403780-244 mmol/LPotassium4.73.5-5.1 mmol/KHxhcuvrr64154-773 mmol/LCarbon Nuompaa96.721.0-32.0 mmol/LAnion Gap17.3Cdfqebr85356-258 mg/dLBlood Urea Fpkmxvxg34.07.0-18.0 mg/dLCreatinine1.530.55-1.02 mg/dLEstimated GFR ( Lmwfkfh51>=60 mL/min/1.73m 2Estimated GFR (Non- Ame34>=60 mL/min/1.73m 2 BUN Creatinine Ratio14.8Subrmxn6.28.5-10.1 mg/dLBilirubin Total0.80.2-1.0 mg/dL Aspartate Amino Mqmntcavxqr2602-84 U/LAlanine Minggmtrulidzvcf4178-67 U/L Alkaline Wbyfvnpduoe73399-751 U/LTotal Protein7.86.4-8.2 g/dLAlbumin Level4.1 3.4-5.0 g/dLGlobulin3.7Albumin Globulin Ratio1.1Performing Lab:see noteML - [facility] LBVITAMIN D 25 [place] (Not yet reviewed by provider) Interpretation: Performing Lab: Notes/Report: [facility] ,Vitamin D19.6 <20 ng/mL Vit D deficient 20-<30 ng/mL Vit D insufficient 30-100 ng/mL Vit D sufficient >100 ng/mL Potential Toxicity Performing Lab:see noteML - [facility] LBPET skull to mid thigh (Not yet reviewed by provider) Interpretation: Performing Lab: Notes/Report: Source Facility: [place] [address] PET Report Signed Patient: LESVIA MALDONADO MR#: [id number] : 1960 Acct:[id number] Age/Sex: 63 / F ADM Date: 07/21/24 Loc: PETCT Attending Dr: Felicia Lowery M.D. Ordering Physician: Felicia Lowery M.D. Date of Service: 07/21/24 Procedure(s): PET skull to mid thigh Accession Number(s): [id number] cc: Felicia Lowery M.D.; GIO MATHEWS [place] [address] Patient Name: LESVIA MALDONADO MRN: [id number] date: 1960 Sex: F Assigned Patient Location: PETCT Current Patient Location: Accession/Order Number: [id number] Exam Date: 07/22/2024 08:11 Report Date: 07/22/2024 [...] Miryam Fuller M.D.07/22/2024 8:35 AM Dictation Location: [place] [address] Electronically authenticated by: [id number] Y Date: 07/22/2024 08:35 Dictated By: Miryam Fuller M.D. Signed By: 07/22/24 1342 DD/ 0835 TD/TT: Abalone Sheller:CBC AUTO DIFF (Not yet reviewed by provider) Interpretation: Performing Lab: Notes/Report: [facility] ,White Blood Count5.14.0-11.0 10 3/uLRed Blood Count3.784.20-5.40 10 6/uL Codtpdcnia23.512.0-16.0 g/qYVxbcmkfstv11.836.0-48.0 %Mean Corpuscular Volume 110.681.0-99.0 fLMean Corpuscular Xxyslggjzm28.426.7-34.0 pgMean Corpuscular HGB Conc34.729.9-35.2 g/dLRed Cell Distribution Width13.911.0-15.0 %Platelet Count 167122-434 10 3/uLMean Platelet Volume9.99.5-13.5 fLPerforming Lab:see noteML - [facility] LBIRON AND TIBC (Not yet reviewed by provider) Interpretation: Performing Lab: Notes/Report: [facility] ,Kudl982.050.0-170.0 ug/dLTotal Iron Binding Ivxtcstp704.0250.0-450.0 ug/dL Percent Iron Ficbobxlus10.5Performing Lab:see noteML - [facility] LB PROF 14(COMP METB) (Not yet reviewed by provider) Interpretation: Performing Lab: Notes/Report: [facility] ,Juddbl555232-474 mmol/LPotassium4.23.5-5.1 mmol/MCtgxliiv53819-969 mmol/LCarbon Irozsmy91.621.0-32.0 mmol/LAnion Gap16.0Ztiujji68962-873 mg/dLBlood Urea Juljntef38.07.0-18.0 mg/dLCreatinine1.390.55-1.02 mg/dLEstimated GFR ( Pzshnkv51>=60 mL/min/1.73m 2Estimated GFR (Non- Ame38>=60 mL/min/1.73m 2 BUN Creatinine Ratio14.3Akxkjop0.18.5-10.1 mg/dLBilirubin Total0.60.2-1.0 mg/dL Aspartate Amino Fulgpkqxeim6545-54 U/LAlanine Mxgpkxoofvyhhyvp1559-56 U/L Alkaline Uqapxedevmz02188-748 U/LTotal Protein7.66.4-8.2 g/dLAlbumin Level4.2 3.4-5.0 g/dLGlobulin3.4Albumin Globulin Ratio1.2Performing Lab:see noteML - [facility] LBManual Differential (Not yet reviewed by provider) Interpretation: Performing Lab: Notes/Report: [facility] ,Segmented Neutrophils % Xsfbgf46.043.0-75.0Lymphocytes Percent Zafyxm58.020.5- 60.0 %Monocytes Percent Manual6.01.7-12.0 %Eosinophils Percent Manual6.00.9-7.0 %Basophils Percent Manual0.00.2-2.0 %Segmented Neut Absolute Manual3.361.4-6.5 10 3/uLLymphocytes Absolute Manual1.121.20-3.80 10 3/uLMonocytes Absolute Manual 0.300.30-0.80 10 3/uLEosinophils Absolute Manual0.300.00-0.70 10 3/uLBasophils Abs Manual0.000.00-0.10 10 3/uLPerforming Lab:see noteML - [facility] LBFERRITIN (Not yet reviewed by provider) Interpretation: Performing Lab: Notes/Report: [facility] ,Xbkqwlaj556.08.0-252.0 ng/mLPerforming Lab:see note - [facility] LBPROF 14(COMP METB) (Not yet reviewed by provider) Interpretation: Performing Lab: Notes/Report: [facility] ,Dueqgu534907-009 mmol/LPotassium4.73.5-5.1 mmol/ETgfdoefz31262-426 mmol/LCarbon Vejwbqi04.621.0-32.0 mmol/LAnion Gap14.9Bmadrum34965-120 mg/dLBlood Urea Pzqqeweo45.07.0-18.0 mg/dLCreatinine1.470.55-1.02 mg/dLEstimated GFR ( Aigbbhq16>=60 mL/min/1.73m 2Estimated GFR (Non- Ame36>=60 mL/min/1.73m 2 BUN Creatinine Ratio10.1Kuykatu5.68.5-10.1 mg/dLBilirubin Total0.70.2-1.0 mg/dL Aspartate Amino Kqvmdnqckxo5204-91 U/LAlanine Wpguqyngectnybow3786-72 U/L Alkaline Rcnxbvsgziu90291-074 U/LTotal Protein7.56.4-8.2 g/dLAlbumin Level4.1 3.4-5.0 g/dLGlobulin3.4Albumin Globulin Ratio1.2Performing Lab:see note - [facility] LBCBC AUTO DIFF (Not yet reviewed by provider) Interpretation: Performing Lab: Notes/Report: [facility] ,White Blood Count5.44.0-11.0 10 3/uLRed Blood Count4.094.20-5.40 10 6/uL Lkelsmifrz82.712.0-16.0 g/qIYutrmltsnu05.636.0-48.0 %Mean Corpuscular Volume 104.281.0-99.0 fLMean Corpuscular Qvrvpyentt08.926.7-34.0 pgMean Corpuscular HGB Conc34.529.9-35.2 g/dLRed Cell Distribution Width14.411.0-15.0 %Platelet Count 186269-450 10 3/uLMean Platelet Volume9.89.5-13.5 fLNeutrophils Percent Auto72.8 43.0-75.0 %Lymphocytes Percent Auto13.220.5-60.0 %Monocytes Percent Auto10.81.7- 12.0 %Eosinophils Percent Auto2.10.9-7.0 %Basophils Percent Auto0.70.2-2.0 % Immature Granulocytes Pct Auto0.40.0-0.5 %Neutrophils Absolute Auto3.91.4-6.5 10 3/uLLymphocytes Absolute Auto0.71.2-3.8 10 3/uLMonocytes Absolute Auto0.60.3-0.8 10 3/uLEosinophils Absolute Auto0.10.0-0.7 10 3/uLBasophils Absolute Auto0.00.0- 0.1 10 3/uLImmature Granulocytes Abs Auto0.020.00-0.03 10 3/uLPerforming Lab:see noteML - [facility] LBVitamin B12 (Not yet reviewed by provider) Interpretation: Performing Lab: Notes/Report: [facility] ,Vitamin [id number] pg/mL Fuse Spooler: Tristen Evans PhD, Phone: [phone] [address] [place], [place] [phone] Performed at: - [facility] Performing Lab:see noteLC - [facility] LBCEA (Not yet reviewed by provider) Interpretation: Performing Lab: Notes/Report: [facility] ,CEA8.60.0-4.7 ng/mL interpreted as absolute evidence of the presence or [facility] Electrochemiluminescence Immunoassay cannot be used interchangeably. Results cannot be Fuse Spooler: Tristen Evans PhD, Phone: [phone] Values obtained with different assay methods or kits (ECLIA) [address] [place], [place] [phone] Performed at: [facility] absence of malignant disease. Smokers <5.6 Nonsmokers <3.9 Performing Lab:see noteLC - [facility] LBIRON AND TIBC (Not yet reviewed by provider) Interpretation: Performing Lab: Notes/Report: [facility] ,Vppk973.050.0-170.0 ug/dLTotal Iron Binding Fxhiihwb032.0250.0-450.0 ug/dL Percent Iron Mluzlljvdq40.0Performing Lab:see noteML - [facility] LB CBC AUTO DIFF (Not yet reviewed by provider) Interpretation: Performing Lab: Notes/Report: [facility] ,White Blood Count3.94.0-11.0 10 3/uLRed Blood Count4.404.20-5.40 10 6/uL Tjqaltsffo00.912.0-16.0 g/gGWhijfdmakp38.036.0-48.0 %Mean Corpuscular Volume 100.081.0-99.0 fLMean Corpuscular Wyvobnznol98.926.7-34.0 pgMean Corpuscular HGB Conc33.929.9-35.2 g/dLRed Cell Distribution Width14.111.0-15.0 %Platelet Count 258509-845 10 3/uLMean Platelet Volume9.49.5-13.5 fLNeutrophils Percent Auto71.0 43.0-75.0 %Lymphocytes Percent Auto13.120.5-60.0 %Monocytes Percent Auto11.81.7- 12.0 %Eosinophils Percent Auto2.60.9-7.0 %Basophils Percent Auto1.00.2-2.0 % Immature Granulocytes Pct Auto0.50.0-0.5 %Neutrophils Absolute Auto2.81.4-6.5 10 3/uLLymphocytes Absolute Auto0.51.2-3.8 10 3/uLMonocytes Absolute Auto0.50.3-0.8 10 3/uLEosinophils Absolute Auto0.10.0-0.7 10 3/uLBasophils Absolute Auto0.00.0- 0.1 10 3/uLImmature Granulocytes Abs Auto0.020.00-0.03 10 3/uLPerforming Lab:see noteML - [facility] LB Reason For Referral No Information Problems Problem Type SNOMED Code ICD Code Onset Dates Problem Status W/U Status Risk Notes Problem Anemia caused by ant ineoplastic agent (disorder) (645499689138295) 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 [address] [place] [address]/ [facility] [address] [place] [address]/[facility] [address] [place] [address]/5ADepartment of Veterans Affairs [facility] Plan Of Treatment Pending Test Test Name [...] CEA 05/13/2024 CEA 10/09/2023 Vitamin B12 05/13/2024 Insurance Providers Payer Name Payer Address Payer Phone Subscriber Number Group Number Insured Name Patient Relationship to Insured Coverage Start Date Coverage End Date [place] [address] [place] [address] [id number] Nguyen Maldonado - patient is the [id number] MEDICARE SUPPLEMENTPO [address] [address] [place] [id number], KathrynSelf - patient is the insured
--- OUTSIDE RECORDS SUMMARY | 2025-04-07 09:57 | XMS_ITS | Clinical Summary ---
Author Organization [facility] Address [address] [place] [address] Care Team Providers [employer] Flatbed Truck Driver Name Role Phone Unavailable Primary Care Provider Unavailabl e Social History Tobacco UseTypesPacks/DayYears UsedDateSmoking Tobacco: Never AssessedArea Deprivation IndexAnswerDate RecordedNational Score (1-100), lower number is lower orfy751504/21/2022State Score (1-10), lower number is lower riskNot on file 3Data from: https://www.neighborhoodatlas.medicine.[facility].edu/. Last address used for sfgeomjbmfb113 [id number] and Gender InformationValueDate RecordedSex Assigned at BirthNot on fileLegal Sex Qjbwkp1807/26/2021 3:23 PM EDTGender IdentityNot on fileSexual OrientationNot on file Plan of Treatment Health MaintenanceDue DateLast DoneCommentsAnxiety Okmfwmrar43/26/1977Depression Bbwfhrqgg10/26/1977Hepatitis C Qqlpmtjtu95/26/1977Mammogram Qpputxcze31/26/1999 CT Gwzpwqktlrpg68/26/2004Cologuard (FIT-DNA)11/02/20039439Qebgrkgahue72/26/2004 Colorectal Cancer Twwfcigrl68/26/2004Diabetes Hczjagpwg44/26/2004Fecal Occult Blood11/02/2003Lipid Gumrsgpqv66/26/1202Pmxovjnozopfx21/26/2004Pneumococcal Vaccine: 50+ (1 of 1 - PCV)2008Shingrix Vaccine (1 of 2)2008 DTaP,Tdap,Td Vaccine (1 - Tdap)/one Density Screening 4Advance Directive Vlkepozvar27/01/2025ovid-19 Vaccine ( - season)2024Influenza Vaccine (#1)2024RSV Vaccine (1 - 1-dose 75+ series)2033ervical Cancer QewkpqxifThmcmatfrorw90/28/2018
--- OUTSIDE RECORDS SUMMARY | 2025-04-07 09:57 | XMS_ITS ---
Author Organization [facility] Address [address] [facility] [place] [address] Care Team Providers Care Dry Kiln Operator Name Role Phone Victoriano Chandler MD Unavailable [phone] Times, Yoselin Ojeda MD Unavailable [phone] Mahesh Ramos MD, PhD Unavailable [phone] Dana Ordonez APRN-STOCK SHIPPER Unavailable [phone] Active Problems ProblemNoted DateDiagnosed DateAnal pwycbg3810/03/2022 Cancer Staging: Clinical stage from 10/03/2022:Stage IIB(cT3, cN0, cM0) - Unsigned Depression with wunetwk0608/25/2022Seasonal iuzztfdcb41/19/2023erianal mass 07/15/2021 Overview (07/15/2021): Added automatically from request for surgery [id number] Diverticulitis of large intestine with abscess without roevzcew63/11/2017Heavy tobacco smoker >10 cigarettes per day08/17/2016Vitamin D ozikahhkkv13/11/2012 Current Treatment and Therapy Plans OP SUPPORTIVE [...] Anus10/16/2022 - .8 Gy16 / 3054 GyReference HobsltHabosjisxFzzq21/10/2023 - 11/29/2022?54 Gy Lifetime Dose Tracking * ChemicalLifetime DoseAutomatic EntryManual MalhpNrgybmqnp52.407 mg/m2 (33 mg) 17.407 mg/m2 (33 mg)0 mg/m2 (0 mg) Resolved Problems ProblemNoted DateDiagnosed DateResolved DateNeutropenic fever2022 11/02/2022
--- OUTSIDE RECORDS SUMMARY | 2025-04-07 09:57 | XMS_ITS | Clinical Summary ---
Author Organization [facility] Address [address] [facility] [place] [address] Care Team Providers Care Car Lubricator Name Role Phone Victoriano Chandler MD Unavailable [phone] Times, Yoselin Ojeda MD Unavailable [phone] Mahesh Ramos MD, PhD Unavailable [phone] Dana Ordonez APRN-MOTION GRAPHICS ARTIST Unavailable [phone] Source Comments The following information is NOT included in Care Everywhere downloads:Psychiatric notes, ECG results, Cardiac Rehab notes, Pulmonary Function notes, data from PLUQ (includes but not limited toPregnancy data,audiograms, eye exams, pre-surgical evaluation notes, well-child exam data).[facility] Allergies Active AllergyReactionsCriticalityNoted SqwgXjukklypOxbagzghvazxlUpae33/02/2023 WjwbmnhVdybischVztxrr09/15/2016Molds & Smuts11/09/2014Pollen Vixcjss6311/22/2015 Eye watering, headaches Eye watering, headaches Medications [...] 4 mg/0.1 mL nasal liquid Use 1 [place] in one nostril (alternate sides) as needed [...] Capsule 4Active Active Problems ProblemNoted DateDiagnosed DateAnal vjvpxo2110/03/2022 Cancer Staging: Clinical stage from 10/03/2022:Stage IIB(cT3, cN0, cM0) - Unsigned Depression with mwwxxcy8008/25/2022Seasonal exbggmorc23/19/2023erianal mass 07/15/2021 Overview (07/15/2021): Added automatically from request for surgery [id number] Diverticulitis of large intestine with abscess without jmhepson04/11/2017Heavy tobacco smoker >10 cigarettes per day08/17/2016Vitamin D hwyuxoomgw54/11/2012 Resolved Problems ProblemNoted DateDiagnosed DateResolved DateNeutropenic fever2022 11/02/2022 Immunizations ImmunizationAdministration DatesNext DueInfluenza, Injectable, Trivalent, Adjuvanted, Preservative Free (ZWC=624)4Pfizer Monovalent (12+ yrs) SARS-COV-2 (COVID-19) vaccine, mRNA, spike protein, LNP, pres. free, 30mcg/0.3mL dose (LTI=066)08/09/2020,07/23/2020 Family History Medical HistoryRelationNameCommentsDCISSisterRelationNameStatusCommentsSister Social History Tobacco [...] get together with friends or relatives? Patient mlrhyhrd94/06/2023How often do you attend roman catholic or sikh services? Patient tglyntqm00/06/2023o you belong to any clubs or organizations such as roman catholic groups, unions, [employer] or athletic groups, or school groups?Yes 10/12/2022How often do you attend meetings of the clubs or organizations you belong to?More than 4 times per year10/12/2022re you , , , , never , or living with a partner?Living with partner 10/12/2022Overall Financial Resource Strain (CARDIA)AnswerDate RecordedHow hard is it for you to pay for the very basics like food, housing, medical care, and heating?Very hard10/12/2022[facility] - Occupational Stress QuestionnaireAnswerDate [...] have received?Associate degree: occupational, technical, or vocational binloie6710/12/2022Substance UseTypes Use/WeekCommentsNot CurrentlyCommentsNoSex and Gender InformationValue Date RecordedSex Assigned at BirthNot on fileLegal SjdJcfqzl00/25/2022 4:04 PM EDTGender IdentityNot on fileSexual OrientationNot on file Last Filed Vital Signs Vital SignReadingTime TakenCommentsBlood Frisejlv00/4908 1:38 PM EDT Nqtov250112/07/2022 1:38 PM GXEZllqmhcznkk02.7 ??C (98 ??F)11/20/2022 3:00 PM EDT Respiratory Jfja3323 1:38 PM EDTOxygen Abvxiiuhgq36%12/07/2022 1:38 PM EDTInhaled Oxygen Concentration--Hbrhop88.3 kg (137 lb 6.4 oz)12/07/2022 1:38 PM HUZUigbxa921.9 cm (6')12/07/2022 1:38 PM EDTBody Mass Index18.6308 1:38 PM EDT Plan of Treatment Health MaintenanceDue DateLast JkixLejfnathAskseehzlqa19/26/1959Hepatitis C Tsvikpaa97/26/1977Tdap Yvalrqw7311/01/1976Hepatitis A (HAV) Vaccine (optional start 19+ years)1977Pneumococcal Vaccine(s) (50+ yrs) (1 of 2 - PCV) 1977Shingles (RZV) Vaccine (1 of 2)1977CRC Gxjzsaxhp67/26/2004 Cologuard (Stool DNA)11/02/2003FIT11/02/2003RSV vaccine (adult) (1 - Risk 50-74 years 1-dose series)2008Hepatitis B (HBV) Vaccine (optional start 60+ years)2018COVID-19 Vaccine (3 - Pfizer risk series)105/06/2020, 07/23/20207110Dsbqzmlpzls67/27/225955/, 11/02/2021, 11/02/2021, Additional history existsInfluenza Vaccine (#1)511905Tbdnzmphvno32/10/2029 4Bone CdnhaibjtoagBhnqvugum25/18/2014Pap SmearDiscontinued Advance Directives TypeDate RecordedPatient RepresentativeExplanationLiving Will10/23/2022 3:19 PM Living WillHealthcare Power of Attorney10/23/2022 3:12 PMHealthcare Power of Oil Deliverer * Full Code (Latest Code Status on File) Date ActivatedDate InactivatedComments10/31/2022 8:26 PM11/02/2022 5:10 PMQuestion AnswerCommentsDocumentation of decision process for this code status:* Patient and surrogate unable or unavailable to discuss.?? There is no previous documentation of code status.?? Defaulting to Full Code Care Teams Team MemberRelationshipSpecialtyStart DateEnd Date Victoriano Chandler MD [address] [place] [address] [place] [address] PhysicianDermatology07/09/21 Times, Yoselin Ojeda MD [address] [place], [place] [address] PhysicianColon & Rectal Surgery08/13/21 Mahesh Ramos MD, PhD [address] [place], [place] [address] PhysicianRadiation Oncology10/07/22 Dana Ordonez, MINOR LEAGUE BASEBALL PLAYER-MOTION GRAPHICS ARTIST [address] [place] [address] [place] [address] APNHematology/Oncology11/11/22
--- OUTSIDE RECORDS SUMMARY | 2025-04-07 09:58 | XMS_ITS | Clinical Summary ---
Author Organization [facility] Address [address] [place] [address] Phone Care Team Providers Care Returned Materials Inspector Name Role Phone Unavailable Primary Care Provider Unavailabl e Social History Tobacco UseTypesPacks/DayYears UsedDateSmoking Tobacco: Never Assessed CommentsUnknownSex and Gender InformationValueDate RecordedSex Assigned at Not on fileLegal WvtWvexmw07/25/2022 10:37 PM ESTGender IdentityNot on file Sexual OrientationNot on file Last Filed Vital Signs Vital SignReadingTime TakenCommentsBlood Fyjczobs664/7608 9:19 AM EDT Bouqi6179 9:19 AM EDTTemperature--Respiratory Rate--Oxygen Saturation-- Inhaled Oxygen Concentration--Riwmov02.1 kg (150 lb 2 oz)12/01/2021 9:19 AM EDT Wskatw813.9 cm (6')12/01/2021 9:19 AM EDTBody Mass Index20.3608 9:19 AM EDT Plan of Treatment Not on file
--- OUTSIDE RECORDS SUMMARY | 2025-04-07 09:58 | XMS_ITS | CCD ---
Author Organization [facility] Care Team Providers Care Composing Machine Operator Name Role Phone Lizbeth Penaloza Primary Care Provider Lizbeth Penaloza Attending Provider Unavailable Primary Care Provider Unavailabl e Victoriano Chandler MD Unavailable Mary Carmen Galloway Unavailable RUBIN Penaloza Primary Care Provider SADE Galloway Attending Provider [phone] MD Jun España Attending Provider Times, Yoselin Referring Provider Unavailable Unknown, Referring Provider Unavailable Unav ailable Unavailable Unavailable MD Jun España Attending Provider Times, Yoselin Referring Provider Unavailable MD Jun España Attending Provider Times, Yoselin Referring Provider Unavailable RUBIN Penaloza Primary Care Provider MD Jun España Attending Provider Times, Yoselin Referring Provider Unavailable UNKNOWN, PCP Referring Unavailable UNKNOWN, PCP Primary Care Unavailable Dr. GRACY MCLAUGHLIN Attending Unavailable UNKNOWN, PCP Primary Care Unavailable Times, MD Yoselin Cloud Attending Unavailab JUJU Alonso Primary Care Physician [phone] Victoriano Chandler MD Unavailable [phone] Times Yoselin CARTER Unavailable [phone] Nahum Jones Attending Unavailable NONE, XXXX Referring Unavailable Richard CARTER, PhD, Mahesh Unavailable Soltesz PharmD, Camron Unavailable Vinson lead portfolio manager, Naheed Unavailable Unavailable Vinson lead portfolio manager, Naheed Unavailable Unavailable Zevchek lead portfolio manager, Amber Unavailable Unavailabl e Giles lead portfolio manager, Gabby Unavailable [phone] [facility] Dana Unavailable Soltesz PharmD, Camron Unavailable Zevchek lead portfolio manager, Amber Unavailable Unavailabl e Chan lead portfolio manager, Gabby Unavailable [phone] Yoselin Padron MD Unavailable [phone] [facility] Dana Unavailable DO Chey Infante Attending Provider Chey Infante Admitting Unavailable Chey Infante Attending Unavailable FURLONGGIO Referring Unavailable FURLONG, GIO aPppas Primary Care Unavailable Furlong Gio WATT Primary Care Provider [phone] Furlong Gio WATT Primary Care Provider DOMINICKNG, GIO Pappas Referring Unavailable FURLONG, GIO Pappas Primary Care Unavailable CHEY INFANTE Admitting Unavailable CHEY INFANTE Attending Unavailable CHEY INFANTE Referring Unavailable FURLONG, GIO Pappas Primary Care Unavailable FURLONG, GIO Pappas Attending Unavailable FURLONG, GIO Pappas Referring Unavailable FURLONG, GIO G Primary Care Unavailable FURLONG, GIO Pappas Attending Unavailable FURLONG, GIO G Referring Unavailable FURLONG, GIO G Primary Care Unavailable BETTE PIERCE Attending Unavailable FURLONG, GIO G Referring Unavailable FURLONG, GIO G Primary Care Unavailable ADRCY MENA Attending Unavailable FURLONG, GIO G Referring Unavailable FURLONG, GIO G Primary Care Unavailable FURLONG, GIO G Attending Unavailable FURLONG, GIO G Referring Unavailable FURLONG, GIO G Primary Care Unavailable FURLONG, GIO G Attending Unavailable FURLONG, GIO G Referring Unavailable FURLONG, GIO G Primary Care Unavailable FURLONG, GIO G Attending Unavailable FURLONG, GIO G Referring Unavailable GIO MATHEWS Primary Care Unavailable GIO MATHEWS Attending Unavailable GIO MATHEWS Referring Unavailable GIO MATHEWS Primary Care Unavailable Rocio DO Gio Pappas Primary Care Provider [phone] Unavailable Unavailable Unavailable Allergies Allergy ClassificationReported Allergen(s)Allergy TypeDate of OnsetReaction(s) Facility (1 source)No Known Medication Allergies; Translations: [No Known Medication Allergies]Propensity to adverse reactions (disorder)[facility] (20 sources)LactaseDrug Qmtqysc81-86-5176MdddvzsxEfbdwJzbwrt (20 sources)Mold ExtractDrug Yodceaf39-97-7821GgzmhWjifit (20 sources)PollenPropensity to adverse reactions to lurk22-72-0817TqmwlUrsglz (20 sources)HYDROmorphoneDrug Owpwdjz49-67-1265HadrUyuxqDvbpin Medications Current Medications MedicationDrug Class(es)DatesSig (Normalized)Sig (Original)acetaminophen 325 mg / oxyCODONE hydrochloride 5 mg oral tablet (2 sources)Opioid AgonistStart: 07-19-2021 End: 66-19-9730vcjKMGWXZ-acetaminophen (PERCOCET) 5-325 mg per tabletatropine sulfate 0.025 mg / diphenoxylate hydrochloride 2.5 mg oral tablet (3 sources)Anticholinergic, Cholinergic Muscarinic Antagonist, Antidiarrheal Start: 11-23-2022 End: 36-58-4666nvaq 1 tablet by mouth twice daily as needed for diarrhea diphenoxylate-atropine (Lomotil) 2.5-0.025 MG per tablet Indications: Anal cancer (HCC) , Use of opiates for therapeutic purposes , Palliative care encounter , Cancer related pain , Palliative care by specialist , Neuropathic pain , Nausea and vomiting, unspecified vomiting type Take 1 Tablet by mouth 2 times daily as needed for Diarrhea for up to 7 days. 14 Tablet 0 11/23/2022 12/01/2022 Activebenzonatate 100 mg oral capsule (20 sources)Non-narcotic AntitussiveStart: 37-60-8663zdgf 1 capsule by mouth three times daily as neededbenzonatate (Tessalon Perles) 100 MG capsule Indications: Viral upper respiratory tract infection Take 1 Capsule by mouth 3 times daily as needed. 60 Capsule 11/06/2022 4:15 PM EDT 10/31/2022 Active busPIRone hydrochloride 10 mg oral tablet (20 sources)Start: 06-09-2024 End: 53-16-8735mvsw 1 tablet by mouth in the morning, then take 1 tablet by mouth at bedtimebusPIRone (BUSPAR) 10 mg tablet Take 1 tablet (10 mg total) by mouth in the morning and 1 tablet (10 mg total) before bedtime. 60 tablet 2 01/14/2025 ActiveStart: 11-23-2022 End: 13-75-2583fwga 1 tablet by mouth twice dailybusPIRone (BUSPAR) 5 MG tablet TAKE 1 TABLET BY MOUTH TWICE A DAY 60 Tablet 01/01/2023 Activecetirizine hydrochloride 10 mg oral tablet (20 sources)Histamine-1 Receptor AntagonistStart: 80-37-5167qrmpoouxoc (ZyrTEC) 10 MG tablet Cetirizine (Zyrtec) 10 mg Tablet Active 10 MG PO Daily October 26, 022 12:00am 10/26/2021 Activeciprofloxacin 500 mg oral tablet (3 sources)Quinolone AntimicrobialStart: 11-02-2022 End: 14-30-0888pdre 1 tablet by mouth twice dailyciprofloxacin (CIPRO) 500 MG tablet Take 1 Tablet by mouth 2 times daily for 5 days. 10 Tablet 0 11/02/2022 11/07/2022 Activefamotidine 20 mg oral tablet (20 sources)Histamine-2 Receptor AntagonistStart: 07-29-2023 End: 55-43-7772jysc 1 tablet by mouth twice daily as needed for gastroesophageal reflux diseasefamotidine (PEPCID) 20 mg tablet TAKE 1 TABLET BY MOUTH 2 TIMES A DAY NEEDED FOR HEARTBURN. 30 tablet 5 07/25/2024 ActiveStart: 11-13-2022 Famotidine (PF) (PEPCID) 20 MG/2ML injectionStart: 99-16-1747ethl 20 mg by mouth once daily20 mg, Oral, DAILY, First dose on Sun10/31/22 at 2100, Until DiscontinuedStart: 10-16-2022 End: 20-88-1590cznc 1 tablet by mouth twice dailyfamotidine (Pepcid) 20 MG tablet Indications: Anal squamous cell carcinoma (HCC) , Heartburn Take 1Tablet by mouth 2 times daily. 60 Tablet 3 10/16/2022 12/07/2022 DiscontinuedStart: 49-28-8584Jfxhebfdds (PF) (PEPCID) 20 MG/2ML injection0.5 ml HYDROmorphone hydrochloride 1 mg/ml prefilled syringe (2 sources)Opioid AgonistStart: 2022 End: 47-58-2742BPGONphcguefn HCl PF (DILAUDID) 1 MG/ML injectionStart: 07-19-2021 End: 18-37-4730TOQVJarqpqaqv (DILAUDID) 1 mg/mL injectionHYDROmorphone (DILAUDID) 0.2 MG/ML injection 0.2 mg (1 source)Start: 07-19-2021 End: 94-66-8535LISUZiyjmdplo (DILAUDID) 0.2 MG/ML injection 0.2 mghydrOXYzine pamoate 25 mg oral capsule (20 sources)AntihistamineStart: 01-14-2025 End: 96-83-8471uxvo 1 capsule by mouth three times daily as neededhydrOXYzine (VISTARIL) 25 mg capsule Indications: Anxiety TAKE 1 CAPSULE BY MOUTH 3 TIMES A DAY NEEDED FOR ITCHING. 270 capsule 1 02/12/2025 ActiveStart: 01-25-2023 End: 99-59-6437bchn 1 capsule by mouth once daily at bedtime as needed hydrOXYzine pamoate (VISTARIL) 25 MG capsule TAKE 1 CAPSULE BY MOUTH EVERY DAY AT BEDTIME [id number] Capsule 11/19/2023 ActiveStart: 70-30-1057ojnrLPPeixr (ATARAX) tabletStart: 06-09-2021 End: 59-97-5140bhzo 1 capsule by mouth at bedtime as neededhydrOXYzine pamoate (VISTARIL) 25 MG capsule Take 1 Capsule by mouth at bedtime as needed. 30 Capsul e 0 01/01/2023 Activelidocaine 0.05 mg/mg topical ointment (20 sources)Antiarrhythmic, Amide Local AnestheticStart: 07-37-9002hcuhjyskv (XYLOCAINE) 5 % ointment Apply topically 3 times daily as needed. Apply thin layer to affected area. Mix equal parts of Lidocaine and Silvadene three times a day. 240 g 1 11/17/2022 8:56 AMEDT 11/15/2022 ActiveStart: 20-57-1773pofhqmljl (XYLOCAINE) 5 % ointment Apply a thick amount to affected area 2 times daily as needed. 30 g 1 08/28/2022 2:41 PM EDT 08/28/2022 ActiveStart: 08-28-2022 End: 92-41-6010iysfejndw (XYLOCAINE) 5 % ointment Apply topically. 08/28/2022 10/30/2023 Discontinuedlidocaine 25 mg/ml / prilocaine 25 mg/ml topical cream (20 sources)Antiarrhythmic, Amide Local AnestheticStart: 82-15-3499bmepdpdmm- prilocaine (E mLA) 2.5-2.5 % creamStart: 96-32-2773lbsbqulte-prilocaine (E mLA) 2.5-2.5 % cream Apply thin layer to affected area. 30 g 3 10/25/2022 Active Start: 10-25-2022 End: 35-41-2620maozyzpqt-prilocaine (EMLA) cream APPLY THIN LAYER TO AFFECTED AREA DIRECTED 10/25/2022 10/18/2023 Discontinued (Duplicate Listing) loperamide hydrochloride 2 mg oral capsule (1 source)Opioid AgonistStart: 74-02-6330uwfdeogzey (IMODIUM) capsuleloratadine 10 mg oral tablet (9 sources)loratadine (CLARITIN) 10 MG tablet 1 Tablet. 0 Activemineral oil 1000 mg/ml enema (2 sources)Start: 08-13-2024 End: 99-62-0206rbxf 133 mL rectal route oncemineral oil (FLEET) enema Indications: Abnormal gastrointestinal PET scan , History of carcinoma insitu of anal canal Insert 133 mL into the rectum once for 1 dose. 133 mL 08/13/2024 08/13/2024 Ugaocb67 hr nicotine 0.583 mg/hr transdermal system (1 source)Cholinergic Nicotinic AgonistStart: 85-76-1562ooosafrv (NICODERM CQ) 14 mg/24HR patchnitrofurantoin, macrocrystals 25 mg / nitrofurantoin, monohydrate 75 mg oral capsule (2 sources)Nitrofuran AntibacterialStart: 08-18-2024 End: 81-26-5613ygoj 1 capsule by mouth in the morning, then take 1 capsule by mouth at bedtimenitrofurantoin, macrocrystal-monohydrate, (MACROBID) 100 mg capsule Take 1 capsule (100 mg total) by mouth in the morning and 1 capsule (100 mg total) before bedtime. Do all this for 5 days. 10 capsule 08/18/2024 08/23/2024 ActiveNormal consistency supplement (2 sources)Start: 15-59-9094Rwppnm consistency supplementStart: 2022 End: 08-33-2526Hnjhjf consistency supplementondansetron 4 mg disintegrating oral tablet (20 sources)Serotonin-3 Receptor AntagonistStart: 29-23-1969wtzzqoaqqow (ZOFRAN- ODT) disintegrating tabletStart: 10-11-2022 End: 73-38-3971tcxc 1 tablet by mouth every twelve hours as needed for nausea ondansetron (ZOFRAN-ODT) 8 MG disintegrating tablet Indications: Perianal mass Take 1 Tablet by mouth every 12 hours as needed for Nausea. 30 Tablet 3 10/11/2022 02/06/2023 DiscontinuedStart: 07-19-2021 End: 27-89-5776xbbohokdakh (ZOFRAN) 4 MG/2ML injectionpantoprazole 20 mg delayed release oral tablet (20 sources)Proton Pump InhibitorStart: 12-07-2022 End: 35-14-5139lqcp 1 tablet by mouth once dailypantoprazole (Protonix) 20 MG tablet Take 1 Tablet by mouth daily. 30 Tablet 12/07/2022 Activepeg 3350-sod sulf,dneq-rif-udz 178.7-7.3-0.5 gram recon soln (1 source)Start: 08-29-2023 End: 69-42-9581ruk 3350-sod sulf,yptz-ibo-cqa 178.7-7.3-0.5 gram recon soln Take 1 kit by mouth once daily for 1 dose. Please see instructional sheet given by physicians office. 1 each 08/29/2023 08/30/2023 Activepetrolatum 0.41 mg/mg topical ointment (1 source)Start: 67-43-7363kzqjkfhj ointmentprochlorperazine 10 mg oral tablet (20 sources)PhenothiazineStart: 11-23-2022 End: 79-36-1960halw 1 tablet by mouth every six hours as needed for nausea prochlorperazine (COMPAZINE) 10 MG tablet Take 1 Tablet by mouth every 6 hours as needed for Nauseafor up to 14 days. 56 Tablet 11/24/2022 3:12 PM EDT 11/23/2022 Activesennosides, prison 8.6 mg oral tablet (20 sources)Start: 57-20-2140dubh 1 tablet by mouth once daily as needed for constipationsenna (SENOKOT) 8.6 MG tablet Take 1 Tablet by mouth daily as needed for Constipation. 30 Tablet 08/28/2022 2:41 PM EDT 08/28/2022 Activesertraline 50 mg oral tablet (20 sources)Serotonin Reuptake InhibitorStart: 10-01-2023 End: 11-61-1439npvi 1.5 tablets by mouth in the morningsertraline (ZOLOFT) 50 mg tablet Take 1.5 tablets (75 mg total) by mouth in the morning. 45 tablet 2 10/01/2023 12/31/2023 DiscontinuedStart: 10-31-2022 End: 26-15-0835hyofmdwzay (ZOLOFT) 50 mg tablet TAKE 1 AND 1/2 TABLETS BY MOUTH IN THE MORNING 135 tablet 1 06/07/2024 ActiveStart: 76-29-9914cnda 1 tablet by mouth once dailySertraline (Zoloft) 100 mg Tablet Active 100 MG PO Daily October 26, 2021 12:00amtake 1.5 tablets by mouth in the morningsertraline (ZOLOFT) 50 mg tablet Take 1.5 tablets (75 mg total) by mouth in the morning. ActivetraMADol hydrochloride 50 mg oral tablet (1 source)Opioid AgonistStart: 07-19-2021 End: 71-37-3299gkqi 1 tablet by mouth every eight hours as needed for pain tramadol (ULTRAM) 50 MG tablet Indications: Perianal mass Take 1 Tablet by mouth every 8 hours as needed for Pain for up to 3 days. 9 Tablet 0 07/19/2021 07/22/2021 Active Completed/Discontinued Medications MedicationDrug Class(es)DatesSig (Normalized)Sig (Original)acetaminophen 325 mg oral tablet (2 sources)Start: 2022 End: 34-99-2664jufusdjpddaif (TYLENOL) tabletStart: 08-28-2022 End: 42-59-1868gfmawaqaqreqv (TYLENOL) 500 MG tablet Take 2 Tablets by mouth every 8 hours as needed for Pain for up to 10 days. Do not take within 4 hours of other medications containing acetaminophen (Tylenol) 60Tablet 0 08/28/2022 09/07/2022 [id number] 200 actuat albuterol 0.09 mg/actuat metered dose inhaler (20 sources)beta2-Adrenergic AgonistStart: 81-11-9705kjdz 2 puff(s) by inhalation every four hours as needed2 Puff, Inhalation, EVERY 4 HOURS PRN, Starting on Sun10/31/22 at 2025, Until Discontinued, WheezingStart: 10-31-2022 take 2 puff(s) by mouth every four hours as needed for wheezingalbuterol (PROVENTIL HFA) INHALATION HFA inhaler (VENTOLIN,PROAIR,PROVENTIL) 90mcg Indications: Viral upper respiratory tract infection Inhale 2 Puffs by mouth every 4 hours as needed for Wheezing. 8.5 g 11/06/2022 4:15 PM EDT 10/31/2022 Activecapecitabine 500 mg oral tablet (20 sources)Nucleoside Metabolic InhibitorStart: 10-11-2022 End: 05-12-3149dmmw 3 tablets by mouth twice daily after mealtimecapecitabine (XELODA) 500 MG tablet Indications: Perianal mass Take 3 tablets (1500 mg) by mouth intwice a day, 12 hours apart on each day radiotherapy is given, Sunday through Sunday. Doses should be taken with water within 30 minutes after a meal. Swallow tablets whole. Avoid cutting or crushingtablets.(825mg/m2/dose). 168 Tablet 0 10/11/2022 02/06/2023 Discontinuedcefepime 2000 mg injection (1 source)Cephalosporin AntibacterialStart: ,000 mg, Intravenous, EVERY 12 HOURS ANTIBIOTIC, First dose on Sun10/31/22 at 2100, Until Discontinued docusate sodium 100 mg oral capsule (20 sources)Start: 08-28-2022 End: 02-64-1753tnjd 1 capsule by mouth twice dailydocusate sodium (COLACE) 100 MG capsule Take 1 Capsule by mouth 2 times daily. 60 Capsule 3 08/28/2022 11/23/2022 Discontinued1 ml heparin sodium, porcine 5000 unt/ml prefilled syringe (1 source)Unfractionated Heparin, Anti-coagulantStart: 07-19-2021 End: 81-11-9759zhzzjqd (porcine) 5,000 units/mL injectionStart: 07-19-2021 End: 32-13-0566dnakofv (porcine) 5,000 units/mL injectionibuprofen 400 mg oral tablet (20 sources)Nonsteroidal Anti-inflammatory Drug End: 02-17-5864mwfi 1 tablet by mouth every eight hours as needed for pain ibuprofen (MOTRIN) 400 mg tablet Indications: pain Take 1 tablet (400 mg total) by mouth every 8 (eight) hours as needed for pain Indications: pain. 06/09/2024 Discontinued (Therapy completed)ibuprofen (Ibuprofen 100 Gordon Strength) 100 MG chewable tablet Ibuprofen Active 0 ActiveIbuprofen Activeiohexol (OMNIPAQUE) 300 MG/ML injection (3 sources)Start: 10-06-2022 End: 48-86-2811oymzkey (OMNIPAQUE) 300 MG/ML injectionStart: 10-03-2022 End: 33-44-4151xbdbpzq (OMNIPAQUE) 300 MG/ML injectioniohexol (OMNIPAQUE) 350 MG/ML injection (2 sources)Start: 10-03-2022 End: 97-24-5470xghnwjk (OMNIPAQUE) 350 MG/ML injectionLORazepam 0.5 mg oral tablet (20 sources)BenzodiazepineStart: 12-25-2024 End: 52-08-1799kpmt 1 tablet by mouth every six hours as needed for anxiety and anxiety and anxietyLORazepam (ATIVAN) 0.5 mg tablet Indications: Anxiety TAKE 1 TABLET BY MOUTH EVERY 6 HOURS NEEDED FOR ANXIETY 30 tablet 12/25/2024 01/14/2025 Discontinued (Therapy completed)Start: 09-11-2023 End: 25-26-4278ijfy 1 tablet by mouth every six hours as needed for anxiety and anxiety and anxietyLORazepam (ATIVAN) 0.5 mg tablet Indications: Anxiety TAKE 1 TABLET BY MOUTH EVERY 6 HOURS NEEDED FOR ANXIETY 30 tablet 1 09/04/2024 12/25/2024 DiscontinuedStart: 01-25-2023 End: 75-48-9347ikzh 1 tablet by mouth every four hours as neededLORazepam (ATIVAN) 0.5 mg tablet 1 tablet NEEDED EVERY 4 HOURS (route: oral) 01/25/2023 09/11/2023 Discontinued (Reorder)100 ml magnesium sulfate 40 mg/ml injection (1 source)Start: 10-31-2022 End: ,000 mg, Intravenous, ONCE, 1 dose, On Sun10/31/22 at 2100 midodrine hydrochloride 10 mg oral tablet (17 sources)alpha-Adrenergic AgonistStart: 07-03-2023 End: 51-90-4848kzna 1 tablet by mouth twice dailymidodrine (PROAMATINE) 10 mg tablet TAKE 1 TABLET BY MOUTH TWICE A DAY FOR HYPOTENSION 07/03/2023 03/18/2024 Discontinued (Therapy completed)mitomycin (MUTAMYCIN) 14 mg in 28 mL iv push (1 source)Start: 11-13-2022 End: 02-56-2735oruxkzwrf (MUTAMYCIN) 14 mg in 28 mL iv pushmitomycin (MUTAMYCIN) 19 mg iv push (1 source)Start: 10-16-2022 End: 11-94-0255lxkfarzmm (MUTAMYCIN) 19 mg iv pushnaloxone hydrochloride 40 mg/ml nasal spray (20 sources)Opioid AntagonistStart: 02-15-2023 End: 14-37-8071tdqrinwz (NARCAN) 4 mg/actuation spray,non-aerosol nasal spray Per instructions DIRECTED (route:nasal) 02/15/2023 08/29/2023 Discontinued (Patient Stopped On Own)Start: 90-36-3827myfhimnb 4 mg/0.1 mL nasal liquid Use 1 [place] in one nostril (alternate sides) as needed for Drug Overdose for up to 1 dose. Every 2-3 mins. until help arrives. 2 Each 1 11/02/2022 ActiveStart: 11-02-2022 End: 98-51-4000pfvygigg (NARCAN) 4 mg/actuation spray,non-aerosol nasal spray 1 spray (4 mg total). 11/02/2022 08/29/2023 Discontinued (Patient Stopped On Own) Start: 31-55-0284lgydvlwt (NARCAN) 0.4 MG/ML injectionnaproxen 500 mg oral tablet (20 sources)Nonsteroidal Anti-inflammatory DrugStart: 09-29-2021 End: 09-99-2538nlbvsoeh (NAPROSYN) 500 MG tablet Take by mouth every 12 hours. 0 09/29/2021 11/23/2022 Discontinuedondansetron 8mg / dexamethasone 10mg in NS 50 mL ivpb (Batched Premix) (2 sources)Start: 11-13-2022 End: 67-42-9690tjjtesubnla 8mg / dexamethasone 10mg in NS 50 mL ivpb (Batched Premix)Start: 10-16-2022 End: 57-06-7465olrfnexifys 8mg / dexamethasone 10mg in NS 50 mL ivpb (Batched Premix)oxyCODONE hydrochloride 5 mg oral tablet (18 sources)Opioid AgonistStart: 01-25-2023 End: 16-59-9969pskv 1 tablet by mouth every six hours as neededoxyCODONE (ROXICODONE) 5 mg immediate release tablet 5 mg NEEDED EVERY 6 HOURS (route: oral) 01/25/2023 08/29/2023 Discontinued (Patient Stopped On Own)Start: 11-23-2022 End: 13-25-5278qbxc 1 tablet by mouth every six hours as needed for pain oxyCODONE 5 MG immediate release tablet Indications: Anal cancer (HCC) , Use of opiates for therapeutic purposes , Palliative care encounter , Cancer related pain , Palliative care by specialist , Neuropathic pain , Nausea and vomiting, unspecified vomiting type Take 1 Tablet by mouth every 6 hoursas needed for Pain for up to 7 days. 28 Tablet 0 12/01/2022 12/08/2022 ActiveStart: 11-13-2022 End: 09-16-2290smhi 1 tablet by mouth every six hours as needed for pain oxyCODONE 5 MG immediate release tablet Indications: Anal cancer (HCC) , Cancer associated pain Take 1 Tablet by mouth every 6 hours as needed for Pain for up to 7 days. 28 Tablet 0 11/13/2022 11/20/2022 ActiveStart: 10-31-2022 End: 35-91-2040aepz 2 tablets by mouth every four hours as neededoxyCODONE 5 MG immediate release tablet Indications: Anal squamous cell carcinoma (HCC) Take 2 Tablets by mouth every 4 hours as needed for up to 3 days. 36 Tablet 0 11/02/2022 11/05/2022 Activepotassium chloride 10 meq extended release oral tablet (17 sources)Start: 07-29-2023 End: 08-07-6651rgybcivsc chloride (K-TAB,KLOR-CON) 10 MEQ CR tablet Take 1 tablet (10 mEq total) by mouth in the morning. 07/29/2023 03/18/2024 Discontinued (Therapy completed)silver sulfADIAZINE 10 mg/ml topical cream (20 sources)Sulfonamide AntibacterialStart: 01-25-2023 End: 96-24-2317yjxdfq sulfADIAZINE (SILVADENE, SSD) 1 % cream Per instructions 2 TIMES DAILY (route: topical) 01/25/2023 10/30/2023 Discontinued (Therapy completed)Start: 91-38-3269dwwibx sulfadiazine (SILVADENE) 1 % cream Apply topically 2 times daily. Apply thin layer to affected area. Mix equal parts of Lidocaine and Silvadene 2-3 times a day 85 g 3 11/09/2022 11:47 AM EDT Qmmzux25 ml sodium chloride 9 mg/ml injection (4 sources)Start: 12-07-2022 End: 58-28-4912kurxbg chloride 0.9 % iv bolusStart: 11-13-2022 End: 11-15-8374xiawtm chloride 0.9 % iv bolusStart: 89-00-3710kgqwrg chloride 0.9 % (PF) 0.9 % injectionStart: 49-48-0269zttbrn chloride 0.9 % iv infusion7 actuat umeclidinium 0.0625 mg/actuat dry powder inhaler (1 source)AnticholinergicStart: 26-76-8847mykc 1 puff(s) by inhalation once daily1 Puff, Inhalation, DAILY RT, First dose on Sun10/31/22 at 2100, Until Discontinueddivalproex sodium 250 mg delayed release oral tablet (8 sources)Mood Stabilizer, Anti-epileptic AgentStart: 03-18-2024 End: 06-84-8535raro 1 tablet by mouth in the morning, then take 1 tablet by mouth at bedtimedivalproex (DEPAKOTE) 250 mg EC tablet TAKE 1 TABLET (250 MG TOTAL) BY MOUTH IN THE MORNING AND 1 TABLET (250 MG TOTAL) BEFORE BEDTIME. 180 tablet 1 04/10/2024 06/09/2024 Discontinued (Patient Stopped On Own)150 ml vancomycin 5 mg/ml injection (2 sources)Glycopeptide AntibacterialStart: 2022 End: 92-81-2803pzeuttezda (VANCOCIN) 750 mg/150 mL iv soln (ROOM TEMP PREMIX) Start: 10-31-2022 End: 49-54-3507ylcbwsjmad (VANCOCIN) 1,500 mg/300 mL (ROOM TEMP PREMIX) vancomycin lab draw (1 source)Start: 2022 End: 91-72-7579khloubeaqf lab draw Problems Active Problems Problem ClassificationProblemDateDocumented DateEpisodic/ChronicAbdominal pain (3 sources)Right lower quadrant pain; Translations: [Right lower quadrant pain] 96-50-8089XquxizcrPijkaewbuxejzg/social admission (16 sources)Patient encounter status; Translations: [Other specified counseling] 46-78-5067RvsntyyiXzhfeaq disorders (20 sources)Generalized anxiety disorder; Translations: [Generalized anxiety disorder]Onset: [id number]; peripheral; and visceral artery aneurysms (20 sources)Thoracic aortic aneurysm without rupture; Translations: [Thoracic aortic aneurysm without rupture, unspecified part ([facility]-HCC)]Onset: 06-09-2024 59-96-0303RhfiumnAqiumu of rectum and anus (20 sources)Malignant tumor of anus; Translations: [Malignant neoplasm of anus, unspecified]Onset: 56-85-8000EpybuvjZwotgw of rectum and anus (3 sources)Personal history of other malignant neoplasm of rectum, rectosigmoid junction, and anus; Translations: [History of malignant neoplasm of anus]Onset: 262537-35-8119OmjvejcjZiqpclsskfuyd of surgical procedures or medical care (20 sources)Anemia due to antineoplastic chemotherapy; 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]Onset: 876848-10-0132Dvwdslo Diverticulosis and diverticulitis (20 sources)Diverticulitis of large intestine; Translations: [Diverticulitis of large intestine with perforation and abscess without bleeding]Onset: 08-17-2016 54-73-2887ChpcarlOwmvoyqciv disorders (20 sources)Gastroesophageal reflux disease; Translations: [Gastro-esophageal reflux disease without esophagitis]66-03-7403ClbqljdPkwji of unknown origin (1 source)Fever; Translations: [Fever, unspecified]72-68-8967Lupbrqwg Genitourinary symptoms and ill-defined conditions (4 sources)Dysuria; Translations: [Dysuria]Onset: 09-29-2021 Resolved: 87-69-8302XskkzvetMiqkshiqbtv chemotherapy; radiotherapy (1 source)Patient encounter status; Translations: [Encounter for antineoplastic chemotherapy]28-58-9879TzltkmbQjuk disorders (20 sources)Recurrent major depressive episodes, mild ; Translations: [Major depressive disorder, recurrent, mild]Onset: 944171-12-4166PssnescWffgtm and vomiting (2 sources)Nausea and vomiting; Translations: [Nausea with vomiting, unspecified]56-69-6320EytkvrkmYhzfudcvddc deficiencies (20 sources)Vitamin D deficiency; Translations: [Vitamin D deficiency, unspecified]Onset: 361945-36-0462RmrvlpfJhhaurgpjjvipf (2 sources)Osteoarthritis of multiple joints ; Translations: [Polyosteoarthritis, unspecified]ChronicOther aftercare (3 sources)Under care of palliative care physician; Translations: [Encounter for palliative care]41-24-5145IyayptemRrsda aftercare (2 sources)High risk drug monitoring status; Translations: [MCC (current) use of opiate analgesic]81-63-0483KdlezwwjFpohy connective tissue disease (2 sources)Neuropathic pain; Translations: [Neuralgia and neuritis, unspecified] 81-63-2244HtxsewhaApius gastrointestinal disorders (1 source)Heartburn; Translations: [Heartburn]17-71-8844OphnealgMphad gastrointestinal disorders (2 sources)H/O lower GIT neoplasm; Translations: [Personal history of in-situ neoplasm of other and unspecified digestive organs]06-31-7911UawbqoaoKsuax hematologic conditions (2 sources)Macrocytosis; Translations: [Other specified diseases of blood and blood-forming organs]ChronicOther nervous system disorders (3 sources)Pain due to neoplastic disease; Translations: [Neoplasm related pain (acute) (chronic)]24-65-1542HflewlvSdskt non-epithelial cancer of skin (14 sources)Malignant neoplasm of gastrointestinal tract; 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]EpisodicOther nutritional; endocrine; and metabolic disorders (3 sources)Decreased body mass index; Translations: [Body mass index (BMI) 19.9 or less, adult]10-97-0269IhzgapanEmoxr skin disorders (2 sources)Disorder of perianal skin; Translations: [Disorder of the skin and subcutaneous tissue, unspecified]EpisodicOther upper respiratory disease (20 sources)Seasonal allergy; Translations: [Other seasonal allergic rhinitis] Onset: 048421-89-9413RtsjgklAksppprl codes; unclassified (4 sources)Body mass index 20-24 - normal; Translations: [Body mass index (BMI) 20.0-20.9, adult]EpisodicResidual codes; unclassified (1 source)Insomnia; Translations: [Insomnia, unspecified]73-12-5646Wbzoslac Residual codes; unclassified (1 source)Abnormal finding on evaluation jbondmqas01-81-3610AnveyzwxEezdxfvki- related disorders (20 sources)Heavy tobacco smoker; Translations: [Nicotine dependence, cigarettes, uncomplicated]Onset: 041884-40-8524MxonnbyRoufmsz disorders (4 sources)Multinodular goiter; Translations: [Nontoxic multinodular goiter] ChronicUnclassified (3 sources)NO UGZH55-82-7353Qexgpojpoctr (4 sources)Autogenerated ProblemOnset: 582110-55-9433Seokpryvackj (1 source)abnormal PET scanOnset: 17-04-6902Oycewyiszvmk (1 source)Personal history of in-situ neoplasm of other and unspecified digestive organs; Translations: [Personal history of in-situ neoplasm of other and unspecified digestive organs]Onset: 09-28-3261Txbtvjtjchla (1 source)Colon Cancer ScreeningOnset: 60-97-2019Xjrxypsojanl (1 source)Thoracic aortic aneurysm, without rupture, unspecified; Translations: [Thoracic aortic aneurysm, without rupture, unspecified]Onset: 06-09-2024 Unclassified (1 source)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-Thoracic aortic aneurysm without rupture, unspecified paOnset: 28-41-3507Dtxypkmadgam (1 source)Annual ExamOnset: 03-18-2024 Past or Other Problems Problem ClassificationProblemDateDocumented DateEpisodic/ChronicAnal and rectal conditions (20 sources)Perianal lump; Translations: [Other specified diseases of anus and rectum]Onset: 08-72-6084GiekuprfTukcvdlr of white blood cells (20 sources)Febrile neutropenia; Translations: [Neutropenia, unspecified]Onset: 2022 Resolved: 127951-14-4412DcjleydIuhflofs; convulsions (4 sources)Seizure; Translations: [Unspecified convulsions]Onset: 03-18-2024 81-81-3826DeexplqtLvqgx and electrolyte disorders (20 sources)Hypokalemia; Translations: [Hypokalemia]Onset: EpisodicFracture of upper limb (1 source)Displaced fracture of shaft of fifth metacarpal bone, left hand, initial encounter for closed fractureOnset: 09-29-2021 Resolved: 63-44-7716UhcghhdjKwabfjrzgbrzb and screening for infectious disease (2 sources)Needs influenza immunization; Translations: [Encounter for immunization]Onset: 147620-86-7033XxncstghDpjr disorders (20 sources)Mood disorders; Translations: [Depression, unspecified]Onset: 03-18-2024 Resolved: Other aftercare (1 source)Other residential (current) drug therapy; Translations: [Other residential (current) drug therapy]Onset: 80-32-4202InccjqytYkpze injuries and conditions due to external causes (1 source)Injury, unspecified, initial encounterOnset: 09-29-2021 Resolved: 42-85-0010RidzpdbmCyilj non-traumatic joint disorders (20 sources)Multiple joint pain; Translations: [Pain in unspecified joint]Onset: 119655-68-0311TjsglawaXxhzr screening for suspected conditions (not mental disorders or infectious disease) (12 sources)Electrocardiogram abnormal; Translations: [Abnormal electrocardiogram [ECG] [EKG]]Onset: 63-77-3290KtbbxkvpXkhqajnej heart disease (20 sources)H/O: pulmonary embolus; Translations: [Personal history of pulmonary embolism]Onset: 152653-15-9867AlpjltmlTipjbckl codes; unclassified (1 source)Insomnia, unspecified; Translations: [Insomnia, unspecified]Onset: 11-61-8131KxzwiybsRsqjifgbb and history of mental health and substance abuse codes (1 source)Encounter for screening for depression; Translations: [Encounter for screening for depression]Onset: 32-57-1188CmbbexuvDggcjaw tract infections (3 sources)Urinary tract infectious disease; Translations: [Urinary tract infection, site not specified]Onset: 281125-37-5668Emjyvmse Results Test NameValueInterpretationReference RangeFacilityTelephone Encounteron 04-25-1922Csggueqclcjhh Authentication Interface Message TextPt returned my call. Stated that she has been following w/oncologist closer to [place]. There are records in [place]. Reinforced with pt to continue to follow and she is aware. She was encouraged to call us if there is a need. Will close referral at this time. Cecy Ricci [facility] SystemDRUG SCREEN, URINEon 09-11-2024 AMPHETAMINE/METHAMPNegativeNormalNegativeUniversity Hospitals Conneaut Medical Centerca [facility] Comment on above:Order Comment: Confirmation available upon request.Result Comment: AMPH/METH screening cut off = 1000 ng/mLPerformed By: #### DSU #### [facility] ([facility]) [address] [place] [address] VIRBARBITURATESNegativeNormalNegativeUniversity Hospitals Conneaut Medical Centerca [facility] Ambulatory PPGComment on above:Order Comment: Confirmation available upon request.Result Comment: Barbiturates screening cut off value = 200 ng/mL Performed By: #### DSU #### [facility] ([facility]) [address] [place] [address] VIRBENZODIAZEPINESNegativeNormalNegativeJ.W. [facility] Hospital Ambulatory PPGComment on above:Order Comment: Confirmation available upon request.Result Comment: Benzodiazepines screening cut off value = 200 ng/mL Performed By: #### DSU #### [facility] ([facility]) [address] [place] [address] VIRCANNABINOIDSPositiveAbnormalNegativeJ.W. [facility] Hospital Ambulatory PPGComment on above:Order Comment: Confirmation available upon request.Result Comment: Cannabinoids/THC screening cut off value = 50 ng/mL Performed By: #### DSU #### [facility] ([facility]) [address] [place] [address] VIRCOCAINE METABOLITENegativeNormalNegativeJ.W. [facility] Hospital Ambulatory PPGComment on above:Order Comment: Confirmation available upon request.Result Comment: Cocaine screening cut off value = 300 ng/mLPerformed By: #### DSU #### [facility] ([facility]) [address] [place] [address] VIRECSTASYNegativeNormalNegativeJ.W. [facility] Hospital Ambulatory PPGComment on above:Order Comment: Confirmation available upon request.Result Comment: Ecstasy screening cut off value = 500 ng/mLPerformed By: #### DSU #### [facility] ([facility]) [address] [place] [address] VIRMETHADONENegativeNormalNegativeProAdena Health Systemca Hospital Ambulatory PPGComment on above:Order Comment: Confirmation available upon request.Result Comment: Methadone screening cut off value = 300 ng/mL.Performed By: #### DSU #### [facility] ([facility]) [address] [place] [address] VIROPIATESNegativeNormalNegativeUniversity Hospitals Conne[facility] Centerca Hospital Ambulatory PPGComment on above:Order Comment: Confirmation available upon request.Result Comment: Opiates screening cut off value = 300 ng/mL This test is used for the detection of codeine, hydrocodone (>1000 ng/mL), morphine and hydromorphone (>900 ng/mL) in urine.Performed By: #### DSU #### [facility] ([facility]) [address] [place] [address] VIROXYCODONENegativeNormalNegAdams County Regional [facility] Center Ambulatory PPGComment on above:Order Comment: Confirmation available upon request.Result Comment: Oxycodone screening cut off value = 300 ng/mL This test is used for the detection of oxycodone and oxymorphone in urine.Performed By: #### DSU #### [facility] ([facility]) [address] [place] [address] VIRPHENCYCLIDINENegativeNormalMercy Health St. [facility] Ambulatory PPGComment on above:Order Comment: Confirmation available upon request.Result Comment: Phencyclidine screening cut off value = 25 ng/mL Performed By: #### DSU #### [facility] ([facility]) [address] [place] [address] VIRDrug screen panel, emergencyon 72-82-8971Hcjervagrnei Screen method >1000 ng/mL Ql (U)NegativeNegativeWashington County Tuberculosis HospitalMedica Health SystemComment on above:AMPH/METH screening cut off = 1000 ng/mLBarbiturates Screen Ql (U)Negative NegativeWashington County Tuberculosis HospitalMedica Health SystemComment on above:Barbiturates screening cut off value = 200 ng/mLBenzodiazepines Ql (U)NegativeNegativeProMedica Health System Comment on above:Benzodiazepines screening cut off value = 200 ng/mLCocaine Ql (U)NegativeNegativeProMedica Health SystemComment on above:Cocaine screening cut off value = 300 ng/mLInterpretation and review of laboratory resultsAbnormal ProMedica Health SystemMethadone (Mec) [Mass/Mass]NegativeNegativeProMedica Health SystemComment on above:Methadone screening cut off value = 300 ng/mL. Methylenedioxymethamphetamine Screen Ql (U)NegativeNegativeWashington County Tuberculosis HospitalMedica Health SystemComment on above:Ecstasy screening cut off value = 500 ng/mLOpiates Ql (U) NegativeNegativeChildren's Hospital for Rehabilitation SystemComment on above:Opiates screening cut off value = 300 ng/mL This test is used for the detection of codeine, hydrocodone (>1000 ng/mL), morphine and hydromorphone (>900 ng/mL) in urine. oxyCODONE [Mass/Vol]NegativeNegativeChildren's Hospital for Rehabilitation SystemComment on above: Oxycodone screening cut off value = 300 ng/mL This test is used for the detection of oxycodone and oxymorphone in urine. Phencyclidine Screen method >25 ng/mL Ql (U)NegativeNegativeChildren's Hospital for Rehabilitation SystemComment on above:Phencyclidine screening cut off value = 25 ng/mL Tetrahydrocannabinol Screen method >50 ng/mL Ql (U)PositiveAbnormalNegative [facility] Health CenterComment on above:Cannabinoids/THC screening cut off value = 50 ng/mLConfirmation available upon request.[facility] HospitalURINE CULTUREon 32-36-6478Rtnzyslw identified Cx Nom (U)CULTURE RESULTS ESCHERICHIA COLI >100,000 CFU/mL Escherichia coli [ S = SUSCEPTIBLE R = RESISTANT I = INTERMEDIATE S-DO = Susceptible-dose dependent NS = Non-suscceptible NO = No Interpretation ] Organism: ESCHERICHIA COLI Antibiotic Interpretation HARI Status Ampicillin S 4.0 F AMP/SULBACTAM S <=^2.0 F PIPERACIL/TAZOBACTAM S <=^4.0 F Cefazolin (non-urinary) S 2.0 F Cefazolin (urinary) S 2.0 F Ceftriaxone S <=^0.25 F Gentamicin S <=^1.0 F Ciprofloxacin S <=^0.06 F Levofloxacin S <=^0.12 F Nitrofurantoin S <=^16.0 F Trimethoprim + Sulfamethoxazole S <=^1.0 FSusceptibleLake County Memorial Hospital - West Ambulatory PPGComment on above:Order Comment: Along with 10,000 to 50,000 CFU/mL Normal Urogenital Lorie.Performed By: #### UC #### [facility] ([facility]) [address] [place] [address] VIRPOCT urinalysis dipstick onlyon 40-00-2063Jdaazimvjc (U) cloudyPLicking Memorial HospitalExternal Poct Urine BilirubinTraHocking Valley Community HospitalExternal Poct Urine BloodNegativeOhioHealth Nelsonville Health CenterExternal Poct Urine Colordark yellowOhioHealth Nelsonville Health CenterExternal Poct Urine GlucoseNegative [facility] CenterExternal Poct Urine KetonesNegativeOhioHealth Nelsonville Health CenterExternal Poct Urine Leukocyte EsteraseTraHocking Valley Community HospitalExternal Poct Urine NitriteNegativeOhioHealth Nelsonville Health CenterExternal Poct Urine Ph5.5 [facility] CenterExternal Poct Urine ProteinTraHocking Valley Community Hospital External Poct Urine Specific Gravity1.025Ohio[facility] Health CenterExternal Poct Urine Urobilinogen0.2PJefferson HealthCOMPREHENSIVE METABOLIC PANELon 52-88-1271Ukxofeb [Mass/Vol]4.9 g/dLNormal3.2-5.3PCleveland Clinic Akron GeneralComment on above:Performed By: #### HOLDEN, 30614-3 #### [facility] ([id number]) [address], [address] [place], [place] [address]YZT [Catalytic activity/Vol]151 U/UMdmm13-081AvaCstszyCleveland Clinic FoundationComment on above:Performed By: #### HOLDEN, 88883-2 #### [facility] ([id number]) [address], [address] [place], [place] [address]IZZ [Catalytic activity/Vol]14 U/LNormal0-31ProMedOhio State East Hospital HospitalComment on above:Performed By: #### HOLDEN, 77063-6 #### [facility] ([id number]) [address], [address] [place], [place] [address]Qvdkm gap [Moles/Vol]12 mmol/LNormal5-15[facility] HospitalComment on above:Performed By: #### HOLDEN, 31309-8 #### [facility] ([id number]) [address], [address] [place], [place] [address]HFT [Catalytic activity/Vol]18 U/LNormal0-41ProCarraway Methodist Medical Center [place] HospitalComment on above:Performed By: #### HOLDEN, 44822-8 #### [facility] ([id number]) [address], [address] [place], [place] [address]Ycxrithwa [Mass/Vol]0.8 mg/dLNormal0.3-1.2PThe [facility] HospitalComment on above:Performed By: #### HOLDEN, 00682-2 #### [facility] ([id number]) [address], [facility] [address] [place], [place] [address]Otbpaag [Mass/Vol]10.0 mg/dLNormal8.5-10.5PThe [facility] HospitalComment on above:Performed By: #### HOLDEN, 13396-2 #### [facility] ([id number]) [address] [address] [place], [place] [address]Nhiqtnqc [Moles/Vol]104 mmol/ZBeogut75-565IwhInnufe [place] HospitalComment on above:Performed By: #### HOLDEN, 13505-6 #### [facility] ([id number]) [address], [address] [place], [place] [address]PO3 [Moles/Vol]24 mmol/MOqrpbw05-40AskKqycpw [facility] Comment on above:Performed By: #### HOLDEN, 43316-5 #### [facility] ([id number]) [address] [place], [place] [address]Seyvquosdu [Mass/Vol]1.38 mg/dLHigh0.40-1.00ProUniversity Hospitals Health System HospitalComment on above:Result Comment: METHOD TRACEABLE TO IDMS STANDARD Performed By: #### HOLDEN, 67510-4 #### [facility] ([id number]) [address], [address] [place], [place] [address]PQO/1.73 sq M.predicted among non-blacks MDRD (S/P/Bld) [Vol rate/Area]42 mL/min/{1.73_m2}Low>59ProCleveland Clinic FoundationComment on above: Result Comment: Reported eGFR is based on the CKD-EPI 2020 equation that does not use a race coefficient.Performed By: #### HOLDEN, 95196-9 #### [facility] ([id number]) [address], [address] [place], [place] [address]Nnovznq [Mass/Vol]101 mg/rFYfmz06-76LraKalprdClinton Memorial Hospital Comment on above:Performed By: #### HOLDEN, 73176-7 #### [facility] ([id number]) [address], [address] [place], [place] [address]Lfvxdauso [Moles/Vol]4.1 mmol/LNormal3.5-5.0ProCleveland Clinic FoundationComment on above:Performed By: #### HOLDEN, 16436-3 #### [facility] ([id number]) [address], [address] [place], [place] [address]Wkqigjm [Mass/Vol]7.9 g/dLNormal6.0-8.0[facility] Comment on above:Performed By: #### HOLDEN, 89129-5 #### [facility] ([id number]) [address], [address] [place], [place] [address]Yueuew [Moles/Vol]140 mmol/KGwsprk241-551SdaMlbtvu [place] HospitalComment on above:Performed By: #### HOLDEN, 53343-9 #### [facility] ([id number]) [address], [address] [place], [place] [address]Tfep nitrogen [Mass/Vol]23 mg/dLNormal5-27ProCleveland Clinic FoundationComment on above:Performed By: #### HOLDEN, 20432-4 #### [facility] ([id number]) [address], [address] [place], [place] [address]Gqjhwowmfsoiz metabolic panelon 72-13-7962Zijzuti [Mass/Vol]4.9 g/dL3.2 - 5.3 g/dLProCarraway Methodist Medical Center Health SystemALP [Catalytic activity/Vol]151 U/LHigh 39 - 130 U/LPrSpanish Peaks Regional Health Center Health SystemALT No additional P-5'-P [Catalytic activity/Vol]14 U/L0 - 31 U/[facility] Health SystemAnion gap [Moles/Vol]12 mmol/L5 - 15 mmol/LPrSpanish Peaks Regional Health Center Health SystemAST [Catalytic activity/Vol]18 U/L0 - 41 U/[facility] SystemBilirubin [Mass/Vol]0.8 mg/dL0.3 - 1.2 mg/dL [facility] SystemCalcium [Mass/Vol]10 mg/dL8.5 - 10.5 mg/dLProMedina Hospital SystemChloride [Moles/Vol]104 mmol/L98 - 109 mmol/[facility] SystemCO2 [Moles/Vol]24 mmol/L22 - 32 mmol/[facility] SystemCreatinine [Mass/Vol]1.38 mg/dLHigh0.40 - 1.00 mg/dLOhioHealth Nelsonville Health CenterComment on above:METHOD TRACEABLE TO IDTN STANDARDeGFR (CKD-EPI)non-race eiqistpgq65Uqb- PINHarry S. Truman Memorial Veterans' HospitalComment on above: Reported eGFR is based on the CKD-EPI 2020 equation that does not use a race coefficient. Glucose [Mass/Vol]101 mg/eMJvnc61 - 99 mg/dLChildren's Hospital for Rehabilitation SystemPotassium [Moles/Vol]4.1 mmol/L3.5 - 5.0 mmol/[facility] Health SystemProtein [Mass/Vol] 7.9 g/dL6.0 - 8.0 g/dLChildren's Hospital for Rehabilitation SystemSodium [Moles/Vol]140 mmol/L134 - 146 mmol/[facility] SystemUrea nitrogen [Mass/Vol]23 mg/dL5 - 27 mg/dL [facility] Health CenterLipid 1996 panelon 47-61-7205Gcjfujjbihb [Mass/Vol]305 mg/pDZfnq070 - 200 mg/dLOhioHealth Nelsonville Health CenterCholesterol in HDL [Mass/Vol]72 mg/dL39 - PINF mg/dLOhioHealth Nelsonville Health CenterComment on above: HDL <40 mg/dL - High Risk HDL > or = 40mg/dL- Desirable HDL >60 mg/dL - Negative Risk Cholesterol in LDL [Mass/Vol]195 mg/dLHighNINF - 130 mg/dLOhioHealth Nelsonville Health CenterComment on above: LDL <100 mg/dL - Desirable LDL >160 mg/dL - High Risk Cholesterol in VLDL [Mass/Vol]38 mg/dLHigh0 - 30 mg/dLOhioHealth Nelsonville Health Center Cholesterol.total/Cholesterol in HDL [Mass ratio]4.2 {ratio}1.0 - 5.0Ohio[facility] Health CenterTriglyceride [Mass/Vol]188 mg/yRYkfr30 - 150 mg/dLOhioHealth Nelsonville Health CenterCholesterol [Mass/Vol]305 mg/tCPllf708-636WkrGhvvxw [place] HospitalComment on above:Performed By: #### HOLDEN, 71091-0 #### [facility] ([id number]) [address] [place] [address], [facility] [address] [place], [place] [address]Wtterhyihat in HDL [Mass/Vol]72 mg/dLNormal>39ProCleveland Clinic FoundationComment on above:Result Comment: HDL <40 mg/dL - High Risk HDL > or = 40mg/dL- Desirable HDL >60 mg/dL - Negative Risk Performed By: #### HOLDEN, 18370-2 #### [facility] ([id number]) [facility], [address] [place], [place] [address]Vfkvjpclxru in LDL [Mass/Vol]195 mg/dLHigh<130ProCleveland Clinic FoundationComment on above:Result Comment: LDL <100 mg/dL - Desirable LDL >160 mg/dL - High Risk Performed By: #### HOLDEN, 23393-2 #### [facility] ([id number]) [address], [address] [place], [place] [address]Qvznsdflmuw in VLDL [Mass/Vol]38 mg/dLHigh0-30ProCleveland Clinic FoundationComment on above:Performed By: #### HOLDEN, 49620-5 #### [facility] ([id number]) [address], [address] [place], [place] [address]LHMFBBIMAZA:HDL4.3Esafjh9.0-5.0ProCleveland Clinic FoundationComment on above:Performed By: #### HOLDEN, 08968-3 #### [facility] ([id number]) [address], [address] [place], [place] [address]Icqihseqkntt [Mass/Vol]188 mg/cKHkzm72-768YsjQhvgvzCleveland Clinic FoundationComment on above:Performed By: #### HOLDEN, 42897-3 #### [facility] ([id number]) [address], [address] [place], [place] [address]Cj Panel Informationon 00-94-0928Yolpnrhwekbgxi and review of laboratory resultsAbnormalWellSpan Chambersburg Hospital Colonoscopyon 43-00-2399KriFslelmLicking Memorial HospitalLon 38-19-8891IUlggyybz: [id number] Received: 10/24/23 Status: JOSEPHINE Req Num: [id number] Spec Type: Surgical Subm Dr: Chey Infante DO Tissues: A Colon Biopsy (PERIANAL TISSUE BX) Procedures: HE/2, Gross/Micro L4 Age/ Patient Sex Location Account Attending Physician Amber Maldonado 62/F [facility] [id number] Chey Infante DO SPEC NUM: [id number] RECD: 10/24/23 STATUS: JOSEPHINE LUNDY NUM: [id number] NEHEMIAS: 10/24/[address] [facility] DR: Chey Infante DO ENTERED: 10/24/[address] [facility] [address]: Jose Salomon SPEC TYPE: Surgical DEPT: FAHEEM AVILA ORDERED: [...] are performed supporting the above interpretation Specimen: [id number] Received: 10/24/23 Status: JOSEPHINE Lundy Num: [id number] Spec Type: Surgical Subm Dr: Chey Infante DO Tissues: A Colon Biopsy (PERIANAL TISSUE BX) Procedures: HE/2, Gross/Micro L4 Patient: Amber Maldonado [id number] (Continued) Specimen: [id number] Received: 10/24/23 (Continued) Signed (signature on file) Jose Diaz MD 10/26/23 191 Specimen: [id number] Received: 10/24/23 Status: JOSEPHINE Lundy Num: [id number] Spec Type: Surgical Subm Dr: Chey Infante DO Tissues: A Colon Biopsy (PERIANAL TISSUE BX) Procedures: Jesi BREAUX/Amauri L4 Patient: Amber Maldonado [id number] (Continued) Specimen: [id number] Received: 10/24/23 (Continued) CPT Codes 43504 Specimen: [id number] Received: 10/24/23 Status: JOSEPHINE Lundy Num: [id number] Spec Type: Surgical Subm Dr: Chey Infante DO Tissues: A Colon Biopsy (PERIANAL TISSUE BX) Procedures: Jesi BREAUX/Amauri L4 Patient: Amber Maldonaod [id number] (Continued) Signed (signature on file) Lyric_ Jose Diaz MD 10/26/[address] [place] [address] Physician GroupSurgical PathologyOrdered By: Charo Holland on 44-41-6122MoqAfawntLicking Memorial HospitalNo Panel Informationon 11-27-2022 Course Elapsed Bmmq70NeczvVjhixoTcauno First Treatment Date10/16/2022 1:03 PM [facility] IN9YcxutVamhaqTglxnf IntentUnknownMetroHealthCourse Last Treatment Date11/27/2022 3:37 PMMetroHealthCourse Start Date10/03/2022 1:11 PM [facility]HealthPlan Fractions Treated to Xvbl20RadsxBenruxBagq Fractions Treated Lyclo35MvtyqVbebwaTtia IDPelvis Anus:1[facility]Plan Prescribed Dose Per Fraction1.8 GyMetroHealthPlan Primary Reference PointAnusMetroHealthPlan Total Fractions Ptwhahxcai77EatbiHmtvuoRcvb Total Prescribed Gqbm4368 cGyMetroHealth Reference Point Dosage Given to Date50.4 GyMetroHealthReference Point IDAnus MetroHealthReference Point Session Dosage Given1.8 GyMetroHealthSession Rvdrpx22 MetroHealthBasic metabolic 2000 panelon 40-85-2330Lyegy gap [Moles/Vol]13 mmol/L 10 - 20MetroHealthCalcium [Mass/Vol]9.2 mg/dL8.4 - 10.4 mg/dLMetroHealthChloride [Moles/Vol]105 mmol/L97 - 111 mmol/LMetroHealthCO2 [Moles/Vol]24 mmol/L21 - 30 mmol/LMetroHealthCreatinine [Mass/Vol]1.12 mg/dLHigh0.50 - 1.10 mg/dLMetroHealth GFR/1.73 sq M.predicted MDRD (S/P/Bld) [Vol rate/Area]55 mL/min/{1.73_m2}Low- PINFMetroHealthComment on above:2020 CKD EPI Equation using Creatinine without Race Comment: Estimated glomerular filtration rate (eGFR) is calculated without a race coefficient. Values should be interpreted in the context of the patient's full clinical presentation. Reference: 1. Sanford Curry, Bijan M, Jazmyne DC, et al.. A Unifying Approach for GFR Estimation: Recommendations of the NKF-ASN Task Force on Reassessing the Inclusion of Race in Diagnosing Kidney Disease. AmericanJournal of Kidney Diseases 202;79(2):268-88.e1. 2. N Engl J Med 1 Vol. 385 Issue 19 Pages 0384-4486 Glucose [Mass/Vol]98 mg/dL80 - 116 mg/dLMetroHealthInterpretation and review of laboratory resultsAbnormalMetroHealthPotassium [Moles/Vol]3.8 mmol/L3.3 - 5.3 mmol/LMetroHealthSodium [Moles/Vol]138 mmol/L135 - 148 mmol/LMetroHealthUrea nitrogen [Mass/Vol]14 mg/dL8 - 22 mg/dLMetroHealthCBC WITH DIFFERENTIALon 90-46-7079Oaopodocd (Bld) [#/Vol]0.04 10*3/uL0.00 - 0.20 K/uLMetroHealth Basophils/100 WBC (Bld)1.0 %NINF - 1.9 %MetroHealthEosinophils (Bld) [#/Vol]0.13 10*3/uL0.00 - 0.70 K/uLMetroHealthEosinophils/100 WBC (Bld)3.2 %0.1 - 4.0 % MetroHealthErythrocyte distribution width (RBC) [Ratio]13.9 %11.5 - 14.5 % MetroHealthHematocrit (Bld) [Volume fraction]32.8 %Low36.0 - 46.0 %[facility] Hemoglobin (Bld) [Mass/Vol]11.2 g/dLLow12.0 - 15.0 g/dLMetroHealthInterpretation and review of laboratory resultsAbnormalMetroHealthLymphocytes (Bld) [#/Vol] 0.32 10*3/uLLow1.00 - 4.80 K/uLMetroHealthLymphocytes/100 WBC (Bld)7.8 %Low24.0 - 44.0 %MetroHealthMCH (RBC) [Entitic mass]35.4 zeLqox67.0 - 34.0 pgMetroHealth MCHC (RBC) [Mass/Vol]34.2 g/dL32.0 - 35.9 g/dLMetroHealthMCV (RBC) [Entitic vol] 104 iFWhdl32 - 100 fLMetroHealthMonocyte distribution width Auto (Bld) [Entitic vol]MetroHealthMonocytes (Bld) [#/Vol]0.49 10*3/uL0.20 - 1.00 K/uLMetroHealth Monocytes/100 WBC (Bld)12.1 %High2.0 - 11.0 %MetroHealthNeutrophils (Bld) [#/Vol]3.10 10*3/uL1.50 - 8.00 K/uLMetroHealthNeutrophils/100 WBC (Bld)76.0 % 31.0 - 76.0 %MetroHealthPlatelet mean volume (Bld) [Entitic vol]8.1 fL7.5 - 11.2 fLMetroHealthPlatelets (Bld) [#/Vol]182 10*3/uL150 - 400 K/uLMetroHealthRBC (Bld) [#/Vol]3.17 10*6/uLLowMetroHealthWBC (Bld) [#/Vol]4.1 10*3/uLLow4.5 - 11.5 K/uLMetroHealthMetroHealthHEPATIC FUNCTION PANELon 99-67-0649Xsjgcef [Mass/Vol] 3.8 g/dL3.4 - 5.1 g/dLMetroHealthALP [Catalytic activity/Vol]116 U/LMetroHealth ALT [Catalytic activity/Vol]7 U/LMetroHealthAST [Catalytic activity/Vol]12 U/L MetroHealthBilirubin [Mass/Vol]0.7 mg/dL0.1 - 1.5 mg/dLMetroHealth Bilirubin.direct [Mass/Vol]0.12 mg/dL0.10 - 0.30 mg/dLMetroHealthProtein [Mass/Vol]6.6 g/dL5.7 - 8.1 g/dLMetroHealthMAGNESIUMon 70-91-8391Ounfgduaz [Mass/Vol]1.8 mg/dL1.6 - 2.8 mg/dLMetroHealthNo Panel Informationon 11-13-2022 Interpretation and review of laboratory resultsNormalMetroHealthMetroHealthBasic metabolic 2000 panelon 70-66-6468Bnhni gap [Moles/Vol]12 mmol/L10 - 20 MetroHealthCalcium [Mass/Vol]8.8 mg/dL8.4 - 10.4 mg/dLMetroHealthChloride [Moles/Vol]103 mmol/L97 - 111 mmol/LMetroHealthCO2 [Moles/Vol]24 mmol/L21 - 30 mmol/LMetroHealthCreatinine [Mass/Vol]1.20 mg/dLHigh0.50 - 1.10 mg/dLMetroHealth GFR/1.73 sq M.predicted MDRD (S/P/Bld) [Vol rate/Area]51 mL/min/{1.73_m2}Low- PINFMetroHealthComment on above:2020 CKD EPI Equation using Creatinine without Race [...] Inclusion of Race in Diagnosing Kidney Disease. AmericanJournal of Kidney Diseases 202;79(2):268-88.e1. 2. N Engl J Med 1 Vol. 385 Issue 19 Pages 1557-9696 Glucose [Mass/Vol]141 mg/sJFbsl91 - 116 mg/dLMetroHealthPotassium [Moles/Vol]4.2 mmol/L3.3 - 5.3 mmol/LMetroHealthSodium [Moles/Vol]135 mmol/L135 - 148 mmol/L MetroHealthUrea nitrogen [Mass/Vol]16 mg/dL8 - 22 mg/dLMetroHealthCBC WITH DIFFERENTIALOrdered By: Maribeth Feng on 91-12-7773Pbknocenu (Bld) [#/Vol]0.02 10*3/uL0.00 - 0.20 K/uLMetroHealthBasophils/100 WBC (Bld)0.5 %NINF - 1.9 % MetroHealthEosinophils (Bld) [#/Vol]0.05 10*3/uL0.00 - 0.70 K/uLMetroHealth Eosinophils/100 WBC (Bld)1.3 %0.1 - 4.0 %MetroHealthErythrocyte distribution width (RBC) [Ratio]13.8 %11.5 - 14.5 %MetroHealthHematocrit (Bld) [Volume fraction]33.1 %Low36.0 - 46.0 %MetroHealthHemoglobin (Bld) [Mass/Vol]11.5 g/dL Low12.0 - 15.0 g/dLMetroHealthInterpretation and review of laboratory results AbnormalMetroHealthLymphocytes (Bld) [#/Vol]0.32 10*3/uLLow1.00 - 4.80 K/uL MetroHealthLymphocytes/100 WBC (Bld)8.0 %Low24.0 - 44.0 %MetroHealthMCH (RBC) [Entitic mass]35.4 ttXpjo92.0 - 34.0 pgMetroHealthMCHC (RBC) [Mass/Vol]34.6 g/dL 32.0 - 35.9 g/dLMetroHealthMCV (RBC) [Entitic vol]102 wNZyoy26 - 100 fL MetroHealthMonocyte distribution width Auto (Bld) [Entitic vol][facility] Monocytes (Bld) [#/Vol]0.67 10*3/uL0.20 - 1.00 K/uLMetroHealthMonocytes/100 WBC (Bld)16.9 %High2.0 - 11.0 %MetroHealthNeutrophils (Bld) [#/Vol]2.92 10*3/uL1.50 - 8.00 K/uLMetroHealthNeutrophils/100 WBC (Bld)73.4 %31.0 - 76.0 %[facility] Platelet mean volume (Bld) [Entitic vol]8.0 fL7.5 - 11.2 fLMetroHealthPlatelets (Bld) [#/Vol]72 10*3/oFPvd951 - 400 K/uLMetroHealthRBC (Bld) [#/Vol]3.24 10*6/uL LowMetroHealthWBC (Bld) [#/Vol]4.0 10*3/uLLow4.5 - 11.5 K/uLMetroHealth MetroHealthHEPATIC FUNCTION PANELon 01-76-8338Rxiwwcw [Mass/Vol]4.0 g/dL3.4 - 5.1 g/dLMetroHealthALP [Catalytic activity/Vol]96 U/LMetroHealthALT [Catalytic activity/Vol]8 U/LMetroHealthAST [Catalytic activity/Vol]13 U/LMetroHealth Bilirubin [Mass/Vol]0.6 mg/dL0.1 - 1.5 mg/dLMetroHealthBilirubin.direct [Mass/Vol]0.13 mg/dL0.10 - 0.30 mg/dLMetroHealthInterpretation and review of laboratory resultsNormalMetroHealthProtein [Mass/Vol]6.4 g/dL5.7 - 8.1 g/dL MetroHealthMAGNESIUMon 77-00-6670Xlfmlmmar [Mass/Vol]1.5 mg/dLLow1.6 - 2.8 mg/dL MetroHealthNo Panel Informationon 95-52-4416Thdphlqjgglwgy and review of laboratory resultsAbnormalMetroHealthMetroHealthBasic metabolic 2000 panel Ordered By: Farhana Stephens on 37-18-2849Qjeso gap [Moles/Vol]14 mmol/L10 - 20 MetroHealthCalcium [Mass/Vol]8.9 mg/dL8.4 - 10.4 mg/dLMetroHealthChloride [Moles/Vol]110 mmol/L97 - 111 mmol/LMetroHealthCO2 [Moles/Vol]18 mmol/LLow21 - 30 mmol/LMetroHealthCreatinine [Mass/Vol]1.15 mg/dLHigh0.50 - 1.10 mg/dL MetroHealthGFR/1.73 sq M.predicted MDRD (S/P/Bld) [Vol rate/Area]53 mL/min/{1.73_m2}Low- PINFMetroHealthComment on above:2020 CKD EPI Equation using Creatinine without Race [...] Inclusion of Race in Diagnosing Kidney Disease. AmericanJournal of Kidney Diseases 2021;79(2):268-88.e1. 2. N Engl J Med 1 Vol. 385 Issue 19 Pages 3942-1283 Glucose [Mass/Vol]96 mg/dL80 - 116 mg/dLMetroHealthInterpretation and review of laboratory resultsAbnormalMetroHealthPotassium [Moles/Vol]4.0 mmol/L3.3 - 5.3 mmol/LMetroHealthSodium [Moles/Vol]138 mmol/L135 - 148 mmol/LMetroHealthUrea nitrogen [Mass/Vol]12 mg/dL8 - 22 mg/dLMetroHealthMetroHealthCBC WITH DIFFERENTIALOrdered By: Rommel West on 51-62-0432Ypndeyrmuky distribution width (RBC) [Ratio]13.2 %11.5 - 14.5 %MetroHealthHematocrit (Bld) [Volume fraction] 33.6 %Low36.0 - 46.0 %MetroHealthHemoglobin (Bld) [Mass/Vol]11.4 g/dLLow12.0 - 15.0 g/dLMetroHealthMCH (RBC) [Entitic mass]35.1 ddWmno10.0 - 34.0 pgMetroHealth MCHC (RBC) [Mass/Vol]34.0 g/dL32.0 - 35.9 g/dLMetroHealthMCV (RBC) [Entitic vol] 103 wJEpql26 - 100 fLMetroHealthMonocyte distribution width Auto (Bld) [Entitic vol]MetroHealthPlatelet mean volume (Bld) [Entitic vol]7.4 fLLow7.5 - 11.2 fL MetroHealthPlatelets (Bld) [#/Vol]41 10*3/uLCritically yql647 - 400 K/uL MetroHealthRBC (Bld) [#/Vol]3.25 10*6/uLLowMetroHealthWBC (Bld) [#/Vol]0.8 10*3/uLCritically low4.5 - 11.5 K/uLMetroHealthMAGNESIUMon 11-02-2022 Interpretation and review of laboratory resultsNormalMetroHealthMagnesium [Mass/Vol]2.0 mg/dL1.6 - 2.8 mg/dLMetroHealthMetroHealthMANUAL DIFF AND MORPHon 31-19-5126Senpf Counted Total (Bld) [#]50 {cells}MetroHealthEosinophils (Bld) [#/Vol]0.06 10*3/uL0.00 - 0.70 K/uLMetroHealthEosinophils/100 WBC (Bld)8.0 %High 0.1 - 4.0 %MetroHealthLymphocytes (Bld) [#/Vol]0.26 10*3/uLLow1.00 - 4.80 K/uL MetroHealthLymphocytes/100 WBC (Bld)32.0 %24.0 - 44.0 %MetroHealthMacrocytes Ql (Bld)SlightMetroHealthMonocytes (Bld) [#/Vol]0.16 10*3/uLLow0.20 - 1.00 K/uL MetroHealthMonocytes/100 WBC (Bld)20.0 %High2.0 - 11.0 %MetroHealthNeutrophils (Bld) [#/Vol]0.32 10*3/uLLow1.50 - 8.00 K/uLMetroHealthNeutrophils/100 WBC (Bld) 40.0 %31.0 - 76.0 %MetroHealthOvalocytes LM Ql (Bld)FewMetroHealthMRSA SCREEN Ordered By: Kate Ozuna on 84-90-6212Euxsgzyaqbsbnz and review of laboratory resultsNormalMetroHealthMRSA isol Org specific cx Ql (Nose)No methicillin resistant Staphylococcus aureus isolated.No methicillin resistant Staphylococcus aureus isolated.MetroHealthMetroHealthNo Panel InformationOrdered By: Rommel West on 98-95-8457Ktnfhcunbqeout and review of laboratory resultsAbnormal MetroHealthMetroHealthB TYPE NATRIURETIC PEPTIDEon 62-10-6585Ykfmhqpipmlvwy and review of laboratory resultsNormalMetroHealthNatriuretic peptide B (Bld) [Mass/Vol]63.0 pg/mLNINF - 100.0 pg/mLMetroHealthMetroHealthBasic metabolic 2000 panelon 56-39-3227Xwjcn gap [Moles/Vol]14 mmol/L10 - 20MetroHealthCalcium [Mass/Vol]8.3 mg/dLLow8.4 - 10.4 mg/dLMetroHealthChloride [Moles/Vol]108 mmol/L 97 - 111 mmol/LMetroHealthCO2 [Moles/Vol]17 mmol/LLow21 - 30 mmol/LMetroHealth Creatinine [Mass/Vol]1.10 mg/dL0.50 - 1.10 mg/dLMetroHealthGFR/1.73 sq M.predicted MDRD (S/P/Bld) [Vol rate/Area]56 mL/min/{1.73_m2}Low- PINF MetroHealthComment on above:202 CKD EPI Equation using Creatinine without Race [...] Inclusion of Race in Diagnosing Kidney Disease. AmericanJournal of Kidney Diseases 202;79(2):268-88.e1. 2. N Engl J Med 2020 Vol. 385 Issue 19 Pages 7088-6507 Glucose [Mass/Vol]112 mg/dL80 - 116 mg/dLMetroHealthInterpretation and review of laboratory resultsAbnormalMetroHealthPotassium [Moles/Vol]4.2 mmol/L3.3 - 5.3 mmol/LMetroHealthSodium [Moles/Vol]135 mmol/L135 - 148 mmol/LMetroHealthUrea nitrogen [Mass/Vol]14 mg/dL8 - 22 mg/dLMetroHealthMetroHealthCBC WITH DIFFERENTIALOrdered By: Elisa Zhang on 49-86-2159Xylgcwklgkb distribution width (RBC) [Ratio]13.3 %11.5 - 14.5 %MetroHealthHematocrit (Bld) [Volume fraction] 32.7 %Low36.0 - 46.0 %MetroHealthHemoglobin (Bld) [Mass/Vol]11.1 g/dLLow12.0 - 15.0 g/dLMetroHealthMCH (RBC) [Entitic mass]35.2 eqBxol65.0 - 34.0 pgMetroHealth MCHC (RBC) [Mass/Vol]33.9 g/dL32.0 - 35.9 g/dLMetroHealthMCV (RBC) [Entitic vol] 104 qRVboo36 - 100 fLMetroHealthMonocyte distribution width Auto (Bld) [Entitic vol]MetroHealthPlatelet mean volume (Bld) [Entitic vol]7.4 fLLow7.5 - 11.2 fL MetroHealthPlatelets (Bld) [#/Vol]36 10*3/uLCritically eri323 - 400 K/uL MetroHealthRBC (Bld) [#/Vol]3.15 10*6/uLLowMetroHealthWBC (Bld) [#/Vol]0.8 10*3/uLCritically low4.5 - 11.5 K/uLMetroHealthEKG 12 LEAD - PERFORMon 58-22-9372QvqtllkjeOpsplp sinus rhythm Nonspecific ST abnormality Abnormal ECG When compared with ECG of 15-JUL-2021 16:12, Minimal criteria for Inferior infarct are no longer Present Confirmed by Norma ESCALANTE GRACE ([id number]) on 2022 3:12:25 PM MetroHealthP wave Atrium by TGT66KZFRxiamNsixzbX wave obpt66nmdcdsrKvvjbPndteyW- R Lxxxxoeq871 msMetroHealthQ-T oniuprbd705 msMetroHealthQ-T interval corrected 428 msMetroHealthQRS vicw45htmgkxuHxraePwudumTZY bmascylz58 msMetroHealthT wave whdq87pdihrtuUohsqFauqdvOvegkLsrvfsYPAGXUQAGMhicafo By: Florecita Santiago on 99-64-2804Hsjcijgvxztsaj and review of laboratory resultsNormalMetroHealth Magnesium [Mass/Vol]2.8 mg/dL1.6 - 2.8 mg/dLMetroHealthMetroHealthMANUAL DIFF AND MORPHon 16-86-6745Iybwyxhe Lymph #0.03 K/uLMetroHealthBand form neutrophils/100 WBC (Bld)2 %NINF - 10 %MetroHealthBands #0.02 K/uLHighNINF - 0.01 K/uLMetroHealthCells Counted Total (Bld) [#]100 {cells}[facility] Eosinophils (Bld) [#/Vol]0.04 10*3/uL0.00 - 0.70 K/uLMetroHealthEosinophils/100 WBC (Bld)5.0 %High0.1 - 4.0 %MetroHealthLymphocytes (Bld) [#/Vol]0.32 10*3/uLLow 1.00 - 4.80 K/uLMetroHealthLymphocytes/100 WBC (Bld)40.0 %24.0 - 44.0 % MetroHealthMacrocytes Ql (Bld)SlightMetroHealthMonocytes (Bld) [#/Vol]0.09 10*3/uLLow0.20 - 1.00 K/uLMetroHealthMonocytes/100 WBC (Bld)11.0 %2.0 - 11.0 % MetroHealthNeutrophils (Bld) [#/Vol]0.29 10*3/uLLow1.50 - 8.00 K/uLMetroHealth Neutrophils/100 WBC (Bld)36.0 %31.0 - 76.0 %MetroHealthOvalocytes LM Ql (Bld)Few MetroHealthPolychromasia LM Ql (Bld)SlightMetroHealthReactiveLymph #0.02 K/uL MetroHealthVariant lymphocytes/100 WBC (Bld)2 %MetroHealthVariant lymphocytes/100 WBC (Bld)4 %MetroHealthNo Panel InformationOrdered By: Elisa Zhang on 60-95-6028Qrworgcmuntnkc and review of laboratory resultsAbnormal MetroHealthMetroHealthNo Panel Informationon 52-32-5400Wplnqprnmjfjaw and review of laboratory resultsNormalMetroHealthMetroHealthPHOSPHORUSon 2022 Phosphate [Mass/Vol]3.5 mg/dL2.5 - 4.8 mg/dLMetroHealthPROCALCITONINon 08-01-4560Ffxqadkifynjhh and review of laboratory resultsNormalMetroHealth Procalcitonin IA [Mass/Vol]0.10 ng/mLNINF - 0.50 ng/mLMetroHealthComment on above:Procalcitonin Concentrations < 0.50 ng/mL = Low Risk [...] retest Procalcitonin within 6 to 24 hours. MetroHealthURIC ACIDon 48-88-6379Icveq [Mass/Vol]4.9 mg/dL2.0 - 7.3 mg/dL MetroHealthVANCOMYCIN RANDOMon 51-25-3720Urpltldedzlguo and review of laboratory resultsNormalMetroHealthVancomycin [Mass/Vol]15.1 ug/mL5.0 - 40.0 ug/mL MetroHealthMetroHealthXR Chest Single viewon 85-27-7610FRNTVJZBFSY: XR CHEST AP OR PA 1 VIEW [...] COPD/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 MACRO: None Anand Hooper MD - 10/31/2022 EXAMINATION: XR CHEST AP [...] COPD/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 MACRO: None MetroHealthRadiology Study observation (narrative)MetroHealthXR Chest Single viewOrdered By: Anand Lilly on 60-35-9665FvfwhYteail Work Phone: basic metabolic 2000 panelon 14-20-3351Qgtst gap [Moles/Vol]12 mmol/L10 - 20MetroHealthCalcium [Mass/Vol]9.8 mg/dL8.4 - 10.4 mg/dLMetroHealthChloride [Moles/Vol]106 mmol/L97 - 111 mmol/LMetroHealthCO2 [Moles/Vol]26 mmol/L21 - 30 mmol/LMetroHealthCreatinine [Mass/Vol]1.13 mg/dLHigh 0.50 - 1.10 mg/dLMetroHealthGFR/1.73 sq M.predicted MDRD (S/P/Bld) [Vol rate/Area]55 mL/min/{1.73_m2}Low- PINFMetroHealthComment on above:202 CKD EPI Equation using Creatinine without Race [...] Inclusion of Race in Diagnosing Kidney Disease. AmericanJournal of Kidney Diseases 202;79(2):268-88.e1. 2. N Engl J Med 2021 Vol. 385 Issue 19 Pages 1871-4740 Glucose [Mass/Vol]90 mg/dL80 - 116 mg/dLMetroHealthInterpretation and review of laboratory resultsAbnormalMetroHealthPotassium [Moles/Vol]5.4 mmol/LHigh3.3 - 5.3 mmol/LMetroHealthSodium [Moles/Vol]139 mmol/L135 - 148 mmol/LMetroHealthUrea nitrogen [Mass/Vol]21 mg/dL8 - 22 mg/dLMetroHealthCBC WITH DIFFERENTIALon 22-93-0018Fskeywyim (Bld) [#/Vol]0.05 10*3/uL0.00 - 0.20 K/uLMetroHealth Basophils/100 WBC (Bld)0.8 %NINF - 1.9 %MetroHealthEosinophils (Bld) [#/Vol]0.18 10*3/uL0.00 - 0.70 K/uLMetroHealthEosinophils/100 WBC (Bld)2.8 %0.1 - 4.0 % MetroHealthErythrocyte distribution width (RBC) [Ratio]14.0 %11.5 - 14.5 % MetroHealthHematocrit (Bld) [Volume fraction]45.7 %36.0 - 46.0 %[facility] Hemoglobin (Bld) [Mass/Vol]15.5 g/pMHehl72.0 - 15.0 g/dLMetroHealth Interpretation and review of laboratory resultsAbnormalMetroHealthLymphocytes (Bld) [#/Vol]1.75 10*3/uL1.00 - 4.80 K/uLMetroHealthLymphocytes/100 WBC (Bld) 27.0 %24.0 - 44.0 %MetroHealthMCH (RBC) [Entitic mass]35.1 viWbsl50.0 - 34.0 pg MetroHealthMCHC (RBC) [Mass/Vol]33.8 g/dL32.0 - 35.9 g/dLMetroHealthMCV (RBC) [Entitic vol]104 tTVtvg95 - 100 fLMetroHealthMonocyte distribution width Auto (Bld) [Entitic vol]MetroHealthMonocytes (Bld) [#/Vol]0.52 10*3/uL0.20 - 1.00 K/uLMetroHealthMonocytes/100 WBC (Bld)8.1 %2.0 - 11.0 %MetroHealthNeutrophils (Bld) [#/Vol]3.97 10*3/uL1.50 - 8.00 K/uLMetroHealthNeutrophils/100 WBC (Bld) 61.3 %31.0 - 76.0 %MetroHealthPlatelet mean volume (Bld) [Entitic vol]8.4 fL7.5 - 11.2 fLMetroHealthPlatelets (Bld) [#/Vol]149 10*3/tUNma103 - 400 K/uL MetroHealthRBC (Bld) [#/Vol]4.40 10*6/uLMetroHealthWBC (Bld) [#/Vol]6.5 10*3/uL 4.5 - 11.5 K/uLMetroHealthMetroHealthCT Chest and Abdomen and Pelvis W contrast IVOrdered By: Boris Taylor on 48-08-9061MS RPO385.13 (mGy.cm)[facility] Work Phone: ct SeriesTopogram,C/A/P ,KIDNEY,BLADDERMetroHealth Work Phone: ctDI VOL0.10 (mGy),6.77 (mGy),7.11 (mGy),6.44 (mGy) [facility] Work Phone: [email or web address] [facility] Body Dosimetry Phantom,IEC Body Dosimetry Phantom,IEC Body Dosimetry Phantom,IEC Body DosimetryPhantom [facility] Work Phone: [facility] Work Phone: ct Chest and Abdomen and Pelvis W contrast Crystal [id number]: CT CHEST/ABD/PELVIS W/ CONTRAST 10/03/2022 02:29 PM CLINICAL HISTORY: staging anal cancer ASSOCIATED DIAGNOSIS: Anal cancer (HCC) ORDERING PROVIDER: [facility] TECHNOLOGISTS NOTE: COMPARISON: None TECHNIQUE: Contiguous axial images were obtained through the chest abdomen and pelvis from the level of the thoracic inlet through the pubic symphysis following administration of intravenous contrast. MPR sagittal and coronal reconstructions were obtained from the axial data. Before infusion of intr avenous contrast, radiology personnel investigated the possibility of [...] aorta. No dilation of the pulmonary trunk. Mediastinum/Pericardium: No pericardial thickening or effusion. Pleura: No [...] acute fracture or destructive osseous lesion. Chronic andbenign-appearing mild superior endplate compression deformities at T6-T8 [...] infrarenal aortic segment as detailed. MACRO: None Boris León MD - 10/03/2022 EXAMINATION: CT CHEST/ABD/PELVIS W/ CONTRAST 10/03/2022 02:29 PM CLINICAL HISTORY: staging anal cancer ASSOCIATED DIAGNOSIS: Anal cancer (HCC) ORDERING PROVIDER: [facility] TECHNOLOGISTS NOTE: COMPARISON: None TECHNIQUE: Contiguous axial images were obtained through the chest abdomen and pelvis from the level of the thoracic inlet through the pubic symphysis following administration of intravenous contrast. MPR sagittal and coronal reconstructions were obtained from the axial data. Before infusion of intr avenous contrast, radiology personnel investigated the possibility of [...] aorta. No dilation of the pulmonary trunk. Mediastinum/Pericardium: No pericardial thickening or effusion. Pleura: No [...] acute fracture or destructive osseous lesion. Chronic andbenign-appearing mild superior endplate compression deformities at T6-T8 [...] infrarenal aortic segment as detailed. MACRO: None MetroHealthRadiology Study observation (narrative)MetroHealthLaboratory - Chemistry and Chemistry - challengeon 69-56-3111Rnxrvoh [Mass/Vol]4.8 g/dL3.4 - 5.1 g/dLMetroHealthALP [Catalytic activity/Vol]119 U/LMetroHealthALT [Catalytic activity/Vol]13 U/LMetroHealthAST [Catalytic activity/Vol]21 U/LMetroHealth Bilirubin [Mass/Vol]0.7 mg/dL0.1 - 1.5 mg/dLMetroHealthBilirubin.direct [Mass/Vol]0.12 mg/dL0.10 - 0.30 mg/dLMetroHealthMagnesium [Mass/Vol]1.8 mg/dL1.6 - 2.8 mg/dLMetroHealthProtein [Mass/Vol]7.6 g/dL5.7 - 8.1 g/dLMetroHealthNo Panel Informationon 26-51-5137Ylpzueqmvmfjpr and review of laboratory results NormalMetroHealthMetroHealthONC - Otheron 72-26-1498VEA - Other [id number]#1.00CD:127[facility] HospitalCoding Summary.on 43-32-4723Rmpkxj Summary. CD:[id number]+PGhlYWQ+QY2HXFSpI65mtFPrtC6AQ5vAIV7FHHFYDSSKFR2SZN2zw OC5LWscQ2OsobBp [file] bGFw (more content not included)...NormalAtrium Healther [facility] CenterOncology Progress Noteon 14-37-8698Ftuirwcn Progress NotePatient: AMBER MALDONADO Age: 61 years Sex: Female : 1960 Associated Diagnoses: None Author: Nahum Jones DO History of Present Illness 61-year-old female referred for anal cancer. Outpatient medications include Claritin, sertraline, Vistaril. Past medical history includes only depression and seasonal allergies. 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 She had seen Dr. Desean Voss at [facility], given topical chemotherapy cream for 6 months and laser treatments with resolution of her symptoms. Sometime in early 2021 she noted anal discomfort. She had seen dermatology who performed biopsy and noted squamous cell carcinoma in situ. She was then referred to [facility] for anoscopy. She was having some bright red blood per rectum. I have biopsies from November 04, 2021 which were second opinion from a previous biopsy that was performed on July 19, 2021. From [facility] notes left anal verge perianal biopsies witha high-grade anal intraepithelial neoplasia AIN 3. Also AIN 3 is noted at the right anal verge, theleft lateral perianal area of the left posterior perianal area and the right lateral perianal area. 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 She had seen Dr. Padron at [facility] in July 2021 and performed multiple biopsies of her 6 x [address] In October [address]. España notated that [...] Review of Systems Constitutional: Negative. Eye: Negative. Ear/Nose/Mouth/Throat: Negative. Respiratory: Negative. Cardiovascular: Negative. Gastrointestinal: Negative. Genitourinary: Negative. Hematology/Lymphatics: Negative. Endocrine: Negative. Immunologic: Negative. Musculoskeletal: Negative. [...] Normal range of motion. Integumentary: Warm, Dry, [place]. Neurologic: Alert, Oriented, Normal sensory. Psychiatric: Cooperative, Appropriate mood & affect. Thereis a large anal tumor evident with extension by about 5cm outside the anus along the skin surface. appears from outside as a large perianal erythematous plaque. No obviousl necrosis or bleeding.Anal tumor extends a few centimeters above theanal verge, exam limited by pain. Review / Management Results review: No qualifying data available . Impression and Plan Education and Follow-up: Counseled: Patient, Regarding diagnosis, Regarding treatment. Discharge Planning: Nahum Jones mri rectum[facility]pel[facility]. pet[facility]ct [facility]. f/u with Dr. España and me same day after this MRI and PET/CT. . Locally advanced anal cancer. This has gone untreated for many months now. She needs restaging prior to hopefully concurrent chemoradiation. i stressed to her the importance of having (more content not included)...[facility] Huynh [facility] - Otheron [id number] - Other [id number]#1.00CD:127[facility]ON - [id number]#1.00CD:127Normal [facility] CompanyConsent for Treatmenton [id number] for [id number]#1.00CD:127[facility] HospitalOn[facility] Noteon [id number] NoteOncology [employer] Office Visit/Treatment Note Current Patient Status/Reason: Patient here for scheduled Initial Clinic Visit. I accompanied Dr. Jones and Leah, medical student in room. Extensive medical history reviewed. Patient informed she has [place] [employer]. Patient informs tumor is about the same as in December 2021. Treatment Plan: MRI and PET at [facility], refer to Dr. Escamilla for radiation needs appointment with Dr. Jones @ [facility] same day Follow-Up Appointment Info/Referrals: at [facility] Resources Offered: Discussed with patient to talk to her bilingual case manager at the [facility] to see if she can switch plans, since [employer] is not accepted at [facility]. Also, patient will talk to [facility] financial counseling to see what her options are.[facility] Fairfield HospitalComment on above:Result Comment: Electronically Signed By: Hari MASON, Kym Lobo\.grant\Date and Time Signed: 06/01/22 12:57 ESTPhysician Orderon [id number] Order [id number]#1.00CD:127[facility]Parma [facility] General HospitalON - Otheron 58-26-4693SGD - Other [id number]#1.00CD:127[facility] HospitalOutside Oncologyon 30-16-6167Wwqtnth Oncology [id number]:127[facility]agianaReg[facility] Hospital CompanyOutside Pathology Reporton 27-78-5625Zdnirkj Pathology Report [id number]:127NogianaRegency Hospital CompanyOutside Radiologyon 91-72-2221Ssdcvsy Radiology [id number]#1.00CD:127[facility] HospitalAMB - Narrative Note-Social Workon 71-82-5255ITT - Narrative Note-Social WorkDiscipline and Description: Discipline: Social Work Topic: Insurance Concerns Description: SW received call back from Pt this morning, however, SW spoke with her in the afternoon to address continued insurance concerns. SW inquired about Pt's status with applying for Medicaid and Financial Assistance application as this chief writer did not hear back from her since our initial contact early December. Pt reportedly returned completed applications to SW via email. However, this chief writer informed Pt applications/email were not received. SW asked Pt to forward email with attached documents; Pt was agreeable. Pt indicated she did inquire about Medicaid eligibility and was told she would not qualify. Pt also reportedly had follow up with [facility] regarding early custodial/Medicare eligibility. Pt was uncertain about eligibility for Medicare benefits if approved for early custodial. When discussing plan of care, Pt expressed frustration regarding possible change in treatment- RT at [facility] contingent upon MRI results vs surgery. SW provided active listening, supportive feedback. It is unclear how much follow up has been made to establish adequate insurance coverage since our initial encounter; however, SW reassured Pt that this chief writer is willing to assist her with applying for Financial Assistance and Medicaid. Pt will need to return applications to this chief writer for submission. SW also informed Pt of alternative option to enroll in Marketplace insurance for the upcoming 2022 year as open-enrollment is quickly approaching. Pt also verbalized understanding when SW explained there are limited Marketplace plan in network with . Pt was appreciative of this chief writer's follow up. SW will submit Financial Assistance/Medicaid applications for processing once received. ~Jessica AGEE, [id number], [employer] Electronic Signatures: Jessica Irving) (Signed 16-Jan-2022 10:28) Authored: Discipline and Description Last Updated: 16-Jan-2022 10:28 by Jessica Irving)[facility] HealthAMB - Narrative Note-Social Workon 26-70-1014OUU - Narrative Note-Social WorkDiscipline and Description: Discipline: Social Work Topic: Insurance [...] canceled due to lack of insurance coverage. SW attempted to reach Pt by phone again today, however, was unable to reach her. MAHAMED left a detailed message regarding the reason for this chief writer's call and contact info requesting follow up. MAHAMED will await call back from Pt. MAHAMED provided updates to Mini Cardenas RN. ~Jessica AGEE, [id number], [employer] Electronic Signatures: Jessica Irving (MAHAMED) (Signed 11-Jan-2022 11:08) Authored: Discipline and Description Last Updated: 11-Jan-2022 11:08 by Jessica Irving)[facility] HealthAMB - Narrative Note-Social Workon 31-59-6450VEF - Narrative Note-Social WorkDiscipline and Description: Discipline: Social Work Topic: Follow Up Description: MAHAMED has been awaiting response from Pt regarding completion of Medicaid and Financial Assistance applications with hopes to establish adequate insurance and/or coverage for continuation of medical care. MAHAMED emailed the above applications to Pt on 12/16/21. MAHAMED attempted to reach Pt by phone today, however, call went straight to voicemail. MAHAMED left a detailed message regarding the reason for this chief writer's call and contact info requesting follow up. SW will await call back from Pt. ~Jessica AGEE, [id number], [employer] Signatures: Jessica Irving) (Signed 27-Dec-2021 10:15) Authored: Discipline and Description Last Updated: 27-Dec-2021 10:15 by Jessica Irving)[facility] HealthAMB - Narrative Note-Social Workon 40-09-9868VDQ - Narrative Note-Social WorkDiscipline and Description: Discipline: Social Work Topic: Insurance [...] reportedly is active w/ financial assistance at [facility]. MAHAMED had previously verified with [facility], Pt is not active with Financial Assistance. SW spoke with Pt by phone to further assess insurance needs/concerns. Pt confirms that her upcoming procedure scheduled for 12/21 has been canceled due to lack of insurance coverage. Pt reportedly has not had stable/adequate insurance for 4 years now, since moving from [place] to [place]. Pt reports she last carried Marketplace insurance- [employer] plan, however, could not maintain monthly premium payment and subjected deductibles and copays. Pt is unemployed, collects her ex-spouse monthly social security benefits and pension totally $2,075. 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 Pt is of early custodial age, however, she is uncertain if she will be able to collect early custodial while receiving her ex- benefits. MAHAMED discussed potential insurance options with Pt. Based on Pt's reported income, it's unclear if she will qualify for Medicaid, however, discussed plan to submit application to allow S to make a determination. Pt reportedly has been denied Medicaid in the past. SW discussed that [employer] open enrollment will be approaching soon, however, Pt does not feel this option is feasible given understanding that only accepts their MMO plan at this time. MAHAMED suggested Pt to consider applying for Financial Assistance. MAHAMED advised Pt to contact local [facility] Office- [phone] to inquire about early custodial and Medicare eligibility. Pt seemed receptive to reapplying for Medicaid and exploring Financial Assistance and early custodial/Medicare eligibility. MAHAMED discussed plan to email Medicaid application, ODM form, and Financial Assistance application to Pt. Pt is aware to complete respective forms and return to this chief writer for review/submission. Pt denies further questions at this time, appreciative of this chief writer's assistance. MAHAMED emailed pre-filled Medicaid application, ODM form, and Financial Assistance application to Pt at [email or web address]. MAHAMED following. ~Jessica Irving MSSA EARLY CHILDHOOD ASSISTANT, [id number], Doc Halo Electronic Signatures: Jessica Irving (MAHAMED) (Signed 19-Dec-2021 09:05) Authored: Discipline and Description Last Updated: 19-Dec-2021 09:05 by Jessica Irving (MAHAMED)Essentia HealthCreatinine (Bld) [Mass/Vol]Ordered By: Jun España on 12-15-2021 Creatinine [Mass/Vol]1.2 mg/dL0.6-1.3FToledo HospitalComment on above:ER/ESD physician is notified/shown all ISTAT results.Critical values may be confirmed by laboratorytesting ifdeemed necessary by ER attending doctor.No Panel InformationOrdered By: Jun España on 66-56-6472CYT Estimated GFR K[address]xlbwi[address] [place], [place] [address]Comment on above:GFR estimated reference range: According to KDOQI guidelines, <60 ml/min/1.73m2 is sufficient todiagnose a patient with chronic kidney disease.POC Estimated GFR Non- Jkxp18Mawahlgbs[address] [place], [place] [address]Initial Visit (Colon and Rectal Surgery)on 46-45-8625Wzouzhr Visit (Colon and Rectal Surgery) Diagnoses/Problems Assessed [...] We also discussed the issue of dysplasia -low and high grade and the risk of neoplastic change. We will start with an EUA/HRA and for excisional biopsy of one side of the lesion. If path is all AIN, will allow for tissue granulation and healing and then excise the other side. If pathology is cancer, will recommend chemoradiation. Risks of the procedure discussed including infection, bleeding, pain, urinary retention, anestheticcomplications, poor healing. 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 She noted a recurrence for the past few months. She felt the lesion in the shower and no associated pain or tenderness. No change in bowel habits. 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 She was seen by Dr. Yoselin Ramirez and was found to have a 7x6cm red plague around the posterior half of the anus with a nodulararea at the anal verge. On 07/19/21 she [...] 10 minutes without stopping. Colonoscopy 2018 in [place] at [facility] in [place], [place] Current every day smoker 1ppd/Drinks about [...] or cold intolerance and no increased thirst. Hematologic/Lymphatic: no swollen glands, no tendency for easy [...] BY MOUTH DAILY Vitals Vital Signs Recorded: 44Tts1250 09:19AM Heart Rate70 Apxgdaqb164 Ytvnlsekw33 Height6 ft Ybesdd292 lb 2 oz BMI Jgjuauioln11.36 kg/m2 BSA Calculated1.89 Tobacco Usea) Yes Patient [...] rate and rhythm, no murmurs. Examinati (more contentnot included)...NormalUH TouchworksTobacco Screening.on 12-67-1724Lnlz risk assessmentb) One or more falls in the last year AG-Xbjprfg-Xmndpwi 2100 Work Phone: Tobacco use status CPHSa) QdoTV-Mfvrnup-Tjopjjn 2100 Work Phone: Tobacco Screening.VcvZK-Sintuea-Zdbbzbw 2099 Work Phone: Outside Recordson 78-83-4407Qnwsivo Records [id number]#1.00CD:[address] [place], [place] [address]No Panel Informationon 44-31-2439NK-Surgery-[place] 2099 Work Phone: [facility] Surgical Pathology Departmenton [id number] Surgical Pathology DepartmentName AMBER MALDONADO Pathologist: CRISTIN MARTINEZ MD Date of Procedure: 11/04/2021 Date Received: 11/04/2021 Date Reported 11/09/2021 Submitting Physician: PENELOPE EWING MD Location: [facility] Other External # FINAL DIAGNOSIS A. [id number] (07/19/2021): A. PERIANAL, LEFT ANAL VERGE, BIOPSIES: [...] LATERAL, BIOPSY:HIGH-GRADE ANAL INTRAEPITHELIAL NEOPLASIA (AIN 3). Ward Clerk: Dr Darcy Moreno Electronically Signed Out By CRISTIN MARTINEZ MD/MARIUSZ By the signature on this report, the individual or group listed as making the Final Interpretation/Diagnosis certifies that they have reviewed this case. Clinical History: {Not Provided} Specimens Submitted As: A: [id number] (07/19/2021) Slide/Block Description Received from [facility], Department of Pathology, [address] [place] [address] , [place] [address], are twenty-seven(27) microscope slides labeled [id number]. Keep Slides: N Slides Returned: N Personal Consult: [facility] CenterComment on above:Performed By: #### [facility] #### [facility] Surgical Pathology Department [address] [address]Ekmgr culture routineOrdered By: Mary Carmen Galloway on 10-02-2021 Bacteria identified Cx Nom (U)2 DaysWayne HospitalUrinalysis - AUTOMATEDon 48-94-3713Syllzxwitj (U)cloudyNwashington county memorial hospital [employer] Other Bilirubin Ql (U)smallGamify [employer] Other Color (U)[employer]OS Other Glucose Ql (U)[employer] Other Hemoglobin Ql (U)[employer] Other Ketones Ql (U)[employer] Other Leukocyte esterase Test strip Ql (U)[employer] Other Nitrite Ql (U)[employer] Other pH (U)6.0 [pH][employer] Other Protein Ql (U)[employer] Other Specific gravity (U) [Rel density]1.020Sparks [employer] Other Urobilinogen (U) [Mass/Vol]1.0 mg/dLSparks [employer] Other Urinalysis - AUTOMATEDGamify [employer] Other XR hand LT min 3V*on 75-47-8195OV hand LT min 3V* [facility] [employer] Other XR hand LT min 3V*[facility] [employer] Other xr hand LT min 3V*[address] [place] [address] [employer] Other XR hand LT min 3V*YENY Garces [address]Jslzn [employer] Other XR hand LT min 3V*XRay ReportSparks [employer] Other XR hand LT min 3V*SignedSparks [employer] Other XR hand LT min 3V*Patient: Amber Maldonado MR#: [id number] [employer] Other XR hand LT min 3V*[address] [place] [address] [employer] Other XR hand LT min 3V*: 1960 Acct:[id number] [employer] Other XR hand LT min 3V*Age/Sex: 60 / F ADM Date: 09/29/21 [facility] [employer] Other XR hand LT min 3V*Loc: XDUC Room: Type: [facility] [employer] Other XR hand LT min 3V*Attending Dr: Mary Carmen Galloway [facility] [employer] Other XR hand LT min 3V*Copies to: Mary Carmen Galloway [facility] [employer] Other XR hand LT min 3V*Ordering Provider: Mary Carmen Galloway [facility] [employer] Other XR hand LT min 3V*Date of Service: 09/29/21Sparks [employer] Other XR hand LT min 3V* XR/XR hand LT min 3V*: InjurySparks [employer] Other XR hand LT min 3V*3 viewsLEFT hand plain filmSparks [employer] Other XR hand LT min 3V*COMPARISON:[facility] [employer] Other XR hand LT min 3V*HISTORY:LEFT hand injuryNorth [employer] Other xr hand LT min 3V*Oblique fracture of the midshaft of the 5th metacarpal identified. No dislocation. Extensive 1stSparks [employer] Other XR hand LT min 3V*carpometacarpal degeneration.[employer] Other xr hand LT min 3V* XR/XR hand LT min 3V*[employer] Other XR hand LT min 3V*IMPRESSION:Oblique fracture of the midshaft of the 5th metacarpal.[employer] Other xr hand LT min 3V*Impression dictated by: Bud Huertas M.D.09/29/2021 3:12 PMNwashington county memorial hospital [employer] Other xr hand LT min 3V*Dictation Location: [address] [employer] Other xr hand LT min 3V*Transcribed By: [facility] 09/29/21 [facility] [employer] Other xr hand LT min 3V*Dictated By: Bud Huertas DO 09/29/[address] [place] [address] [employer] Other xr hand LT min 3V*Signed By:[employer] Other xr hand LT min 3V*09/29/[address] [place] [address] [employer] Other Cardiologyon 2P wave mmlo21uijmhsjXewquWdqunl P-R Khxtlsoh126 msMetroHealthQ-T dibecwil094 msMetroHealthQ-T interval corrected 410 msMetroHealthQRS hsuj7fgvhmdoSblwhIgqeucTKV vgjhexud24 msMetroHealthT wave klgh90voapahxIkjnhUhfflkGf Panel Informationon 01-84-8227BebpdxxbiDkglxs sinus rhythm Cannot rule out Inferior infarct (cited on or before 15-JUL-2021) Abnormal ECG When compared with ECG of 15-JUL-2021 16:12, (unconfirmed) No significant change was found Confirmed by FESTUS VARELA ([id number]) on 07/18/2021 9:47:05 PM MetroHealthP wave Atrium by BCN14YUVLpcjpFawbhkKcituPlsnhlAinqune [Mass/volume] in Serum or Plasmaon 66-49-3191Hiatluy [Mass/Vol]4.0 g/dL3.2-5.5FMercy Health Kings Mills Hospital CtrAutomated basophil %on 55-17-9218Ztgpjnomz/100 WBC (Bld)0.4 %[facility] CtrAutomated basophil counton 73-93-8715Wtjlspuxp (Bld) [#/Vol]0.0 10*3/uL0.0-0.2FMercy Health Kings Mills Hospital CtrAutomated blood lymphocyte count (number/volume)on 51-52-7292Qbglgodrwsf (Bld) [#/Vol]1.3 10*3/uL1.00-4.8[facility] CtrAutomated blood lymphocyte count as percentage of total leukocyteson 04-60-0944Hgxaftesjcg/100 WBC (Bld)18.7 % [facility] CtrAutomated blood monocyte counton 05-28-2020 Monocytes (Bld) [#/Vol]0.6 10*3/uL0.0-0.8[facility] CtrAutomated blood platelet count (count/volume)on 85-00-3646Eijpgpync (Bld) [#/Vol]190 10*3/iK132-025WgnsdfrrmTrihealth Bethes[facility] Hospital CtrAutomated blood platelet mean volume measurementon 39-25-7520Byzrmogh mean volume (Bld) [Entitic vol]8.2 fL6.3-10.7 [facility] CtrAutomated eosinophil %on 22-18-2708Jotkbnthkxh/100 WBC (Bld)1.3 %[facility] CtrAutomated eosinophil counton 86-42-4878Pmrzixgjdns (Bld) [#/Vol]0.1 10*3/uL0.0-0.45[facility] CtrAutomated erythrocyte distribution width ratioon 90-13-7772Iaonkhwhxss distribution width (RBC) [Ratio]15.8 %11.9-15.3FMercy Health [facility] Hospital Ctr Automated erythrocyte mean corpuscular hemoglobin (mass per erythrocyte)on 73-27-5433UPC (RBC) [Entitic mass]34.3 pg24.7-34.3FMercy Health Kings [facility] Hospital Ctr Automated erythrocyte mean corpuscular hemoglobin concentration measurement (mass/volon 44-06-6080FLOH (RBC) [Mass/Vol]34.2 g/dL32.0-35.0[facility] CtrAutomated erythrocyte mean corpuscular volumeon 51-72-4558OIS (RBC) [Entitic vol]100.4 qU79-605KvkvvhdvnTrihealth Bethesda Butler Hospital CtrAutomated monocyte %on 37-12-4728Ksjwddpjj/100 WBC (Bld)9.2 %[facility] CtrAutomated neutrophil %on 93-29-2906Jlascvlzpgx/100 WBC (Bld)70.4 %[facility]terson Medical CenterBlood erythrocytes automated count (number/volume)on 84-83-6226RXG (Bld) [#/Vol]4.06 10*6/uL3.60-5.00[facility] CtrBlood hemoglobin measurement (mass/volume)on 21-21-0387Vjqjdpclyk (Bld) [Mass/Vol]13.9 g/dL 11.8-15.4FMercy Health Kings Mills Hospital CtrBlood leukocytes automated count (number/volume)on 17-65-5819NOH (Bld) [#/Vol]6.9 10*3/uL4.5-11.0[facility] CtrBlood neutrophil count by automated method (number/volume)on 68-29-4371Lhsqwxqcmpv (Bld) [#/Vol]4.8 10*3/uL1.8-7.7FMercy Health Kings Mills Hospital CtrEstimated glomerular filtration rate (GFR) non- Americanon 05-28-2020 GFR/1.73 sq M predicted among non-blacks MDRD (S/P/Bld) [Vol rate/Area]53 mL/min/{1.73_m2}[facility] CtrHematocrit [Volume Fraction] of Blood by Automated counton 22-27-2172Ecqmwghmve (Bld) [Volume fraction]40.7 % 34.0-46.4FMercy Health Kings Mills Hospital CtrMetabolic Panelon 39-09-5429Mksexuwzm [Mass/Vol]1.6 mg/dL1.6-2.6FMercy Health Kings Mills Hospital CtrOtheron 05-28-2020 GFR/1.73 sq M.predicted MDRD (S/P/Bld) [Vol rate/Area]mL/min/{1.73_m2}[facility] CtrComment on above:GFR estimated reference range: According to KDOQI guidelines, <60 ml/min/1.73m2 is sufficient todiagnose a patient with chronic kidney disease.Nucleated RBC/100 WBC (Bld) [Ratio]0.1 %0-0.5FMercy Health Kings Mills Hospital CtrPharmacy Creatinine Clearance (ChemN/AFMercy Health Kings [facility] Hospital CtrProtein [Mass/volume] in Serum or Plasmaon 12-73-9292Sfljanb [Mass/Vol]6.7 g/dL6.1-7.9[facility] CtrSerum globulin measurement by calculation (mass/volume)on 31-05-6550Bxvlbmxx (S) [Mass/Vol]2.7 g/dLTrihealth Bethesda Butler Hospital CtrSerum or plasma alanine aminotransferase measurement without P-5'-P (enzymatic activion 46-80-9570ETG No additional P-5'-P [Catalytic activity/Vol]21 U/V28-52VmmvzmfuoTrihealth Bethes[facility] Butler Hospital CtrSerum or plasma albumin/globulin mass ratioon 33-58-8706Sutwpil/Globulin [Mass ratio]1.5 {ratio}[facility] CtrSerum or plasma alkaline phosphatase measurement (enzymatic activity/volume)on 50-31-9639MYM [Catalytic activity/Vol] 118 U/E10-21QiznsdwhjTrihealth Bethesda Butler Hospital CtrSerum or plasma aspartate aminotransferase measurement (enzymatic activity/volume)on 07-55-5923LTE [Catalytic activity/Vol]33 U/J49-02QylejizryTrihealth Bethesda Butler Hospital CtrSerum or plasma calcium measurement (mass/volume)on 28-42-0969Tyrezgj [Mass/Vol]9.3 mg/dL 8.2-10.2FMercy Health Kings [facility] Hospital CtrSerum or plasma chloride measurement (moles/volume)on 57-09-5059Arodgfyr [Moles/Vol]99 mmol/E01-127DdxlwvrbcTrihealth Bethesda Butler Hospital CtrSerum or plasma creatinine measurement with calculation of estimated glomerular filtron 43-06-4143Zsiobvzuwv [Mass/Vol]1.05 mg/dL0.44-1.03[facility] CtrSerum or plasma glucose measurement (mass/volume)on 02-86-8508Hcswopg [Mass/Vol]96 mg/uF18-690BmgxzkvbeTrihealth [facility]hes[facility] Hospital CtrComment on above:ADA recommended reference rangeRandom Glucose Reference Range is dependent on time and content of last meal. Glucose of more than 200 mg/dL in a nonstressed, ambulatory subject supports the diagnosisof Diabetes Mellitus.Serum or plasma potassium measurement (moles/volume)on 37-65-6904Yqprcqaqh [Moles/Vol]4.1 mmol/L3.5-5.1FMercy Health Kings Mills Hospital CtrSerum or plasma sodium measurement (moles/volume)on 96-97-1131Dnfidy [Moles/Vol]135 mmol/Q308-610 [facility] CtrSerum or plasma total bilirubin measurement (mass/volume)on 32-67-6210Qcznfsajh [Mass/Vol]1.0 mg/dL0.3-1.2FMercy Health Kings [facility] Hospital CtrSerum or plasma total carbon dioxide measurement (moles/volume)on 48-90-8123SE7 [Moles/Vol]25.9 mmol/L22.0-30.0[facility] CtrSerum or plasma urea nitrogen measurement (mass/volume)on 84-33-8872Zlkb nitrogen [Mass/Vol]16 mg/dL9-23[facility] Vital Signs Date TimeVital SignValuePerforming KugglssquAbjpehfb78-10-1556 11:07-0400Body .9 cmGood Samaritan Medical CenterTraffio DO Work Phone: [facility] CenterRenaissance Brewing10-08-2025 11:07-0400Body mass index (BMI) [Ratio]20.56 kg/g2PdbvyrTraffio DO Work Phone: [facility]10-08-2025 11:07-0400Body lwsuqwvgdam94.7 [degF]Gio Stylr DO Work Phone: [facility] [employer] Ngsrrv63-14-5663 11:07-0400Body ecznro57.77 kgDenella Cabreralong DO Work Phone: [facility]10-08-2025 11:07-0400Diastolic blood tevmgmya49 mm[Hg]Gio Furlong DO Work Phone: [facility] [place] Iqwjmb92-54-3459 11:07-0400Heart rate 61 /Cooperis Ricklong DO Work Phone: [facility] [place] Fbcslz17-08-7692 11:07-0400 Respiratory rate20 /minDhoneyis Furlong DO Work Phone: [facility]10-08-2025 11:07-2400QiB6% (BldA) [Mass fraction]100 %Gio Cabreralong DO Work Phone: [facility] [place] Fduwxh96-53-4072 11:07-0400Systolic blood sqtdykkw692 mm[Hg]Gio Cabreralong DO Work Phone: [facility] [place] Btmzlt69-85-0422 13:23-0400Body .9 cmDennis Ricklong DO Work Phone: [facility] [place] Kdwtzc81-89-8969 13:23-0400Body mass index (BMI) [Ratio]21.13 kg/r6Miywjs Furlong DO Work Phone: [facility] [place] Dhhqbi71-57-2559 13:23-0400Body yarfaxkzojo24.6 [degF]Gioella Cabreralong DO Work Phone: [facility] [place] Gzoqpd75-87-4506 13:23-0400Body gvtiti04.67 kgDennis Ricklong DO Work Phone: [facility]06-05-2025 13:23-0400Diastolic blood rsnfsedm67 mm[Hg]Gio Ricklong DO Work Phone: [facility]06-05-2025 13:23-0400Heart rate 82 /Maria Guadalupe Cabreralong DO Work Phone: [facility]06-05-2025 13:23-0400 Respiratory rate18 /minDsen Cabreralong DO Work Phone: [facility]06-05-2025 13:23-8304KoE0% (BldA) [Mass fraction]97 %Gio Cabreralong DO Work Phone: [facility]06-05-2025 13:23-0400Systolic blood lzabrfhl056 mm[Hg]Gio Cabreralong DO Work Phone: [facility]05-21-2025 09:43-0400Body qyxjdhvcugo84.39 [degF]Gio Cabreralong DO Work Phone: [facility]05-21-2025 09:43-0400Diastolic blood jqhxuzju16 mm[Hg]Gio Cabreralong DO Work Phone: [facility]05-21-2025 09:43-0400Heart rate 67 /Maria Guadalupe Asenciong DO Work Phone: [facility]05-21-2025 09:43-8852TsX9% (BldA) [Mass fraction]99 %Gio Cabreralong DO Work Phone: [facility]05-21-2025 09:43-0400Systolic blood tdguogux087 mm[Hg]Gio Asenciong DO Work Phone: [facility]05-13-2025 10:49-0400Body obiijg831.[address]05-13-2025 10:49-0400Body mass index (BMI) [Ratio]21.56 kg/m2Pmh [address] [place], [place] 9496305-13-2025 10:49-0400Body xpzlad58.[address] [place], [place] 9496305-12-2025 13:23-0400Body uwfsoy559.9 cmGio Cabreralong DO Work Phone: [facility] Orehkd12-50-7010 13:Body fhklosouqfn48.81 [degF]Gio Mathews DO Work Phone: [facility]05-12-2025 13:23-0Diastolic blood ookggdeq92 mm[Hg]Gio Asenciong DO Work Phone: [facility]05-12-2025 13:-0400Heart rate 87 /Maria Guadalupe Mathews DO Work Phone: [facility]05-12-2025 13:-0400 Respiratory rate18 /Maria Guadalupe Asenciong DO Work Phone: [facility]05-12-2025 13:-5873InX4% (BldA) [Mass fraction]98 %Gio Mathews DO Work Phone: [facility]05-12-2025 13:23-399Systolic blood vrxyzxpa440 mm[Hg]Gio Mathews DO Work Phone: [facility]05-05-2025 12:11-0400Body xnuifw622.9 cmDarcy Mena [employer] QUALITY TECHNICIAN-PODIATRIST ASSISTANT Work Phone: [facility]05-05-2025 12:11-0400Body mass index (BMI) [Ratio]21.65 kg/f6QudqtfgDarcy Quinonesoll [employer] QUALITY TECHNICIAN-PODIATRIST ASSISTANT Work Phone: [facility]05-05-2025 12:11-0400Body ktkoki59.39 kgDarcy Quinonesoll [employer] QUALITY TECHNICIAN-PODIATRIST ASSISTANT Work Phone: [facility]05-05-2025 12:11-0400Diastolic blood lnppttyt94 mm[Hg]Darcyluis fernando Mena [employer] QUALITY TECHNICIAN-PODIATRIST ASSISTANT Work Phone: [facility]05-05-2025 12:11-0400Systolic blood pqztatoc882 mm[Hg]Darcy Quinonesoll [employer] QUALITY TECHNICIAN-PODIATRIST ASSISTANT Work Phone: [facility]03-27-2025 09:04-0400Body tbeaza646.9 cmBette Pierce MD Work Phone: 1(332)[facility]03-27-2025 09:04-0400Body mass index (BMI) [Ratio]22.24 kg/j7AegdhubBette Pierce MD Work Phone: 1(806)[facility] Okzwxy51-03-2701 09:04-0400Body mipsydylmkf00.1 [degF]Bette Pierce MD Work Phone: 1(188)[facility]03-27-2025 09:04-0400Body awnwbf67.39 kgBette Pierce MD Work Phone: 1(605)[facility]03-27-2025 09:04-0400Diastolic blood rbdsikji79 mm[Hg]Bette Pierce MD Work Phone: 1(189)[facility]03-27-2025 09:04-0400Heart rate 93 /minBette Pierce MD Work Phone: 1(951)[facility]03-27-2025 09:04-6466NmM9% (BldA) [Mass fraction]97 %Bette Pierce MD Work Phone: 1(839)[facility]03-27-2025 09:04-0400Systolic blood mmzrirjr062 mm[Hg]Bette Pierce MD Work Phone: 1(650)[facility] Wwifjd62-66-4181 12:52-0500Body condvr431.4 cmDennis Furlong DO Work Phone: [facility] Rrhdqr73-29-1324 12:52-0500Body mass index (BMI) [Ratio]21.71 kg/d9Oftrtd Furlong DO Work Phone: [facility] Ntuzob57-53-3288 12:52-0500Body wzxxglyjchk11.29 [degF]Gio Cabreralong DO Work Phone: [facility] Xwqeri14-45-7998 12:52-0500Body uxdurw79.62 kgDennis Furlong DO Work Phone: [facility]03-03-2025 12:52-0500Diastolic blood sxomhayn05 mm[Hg]Gio Cabreralong DO Work Phone: [facility] Biysez16-92-0186 12:52-0500Heart rate 88 /Maria Guadalupe Cabreralong DO Work Phone: [phone] Tawbfs65-70-7049 12:52-0500 Respiratory rate20 /Maria Guadalupe Asenciong DO Work Phone: [facility] Pvsvxw56-21-5570 12:52-4486VyB5% (BldA) [Mass fraction]98 %Gio Asenciong DO Work Phone: [facility] Wsidbl93-92-6905 12:52-0500Systolic blood opgbferw926 mm[Hg]Gio Asenciong DO Work Phone: [facility] Ubimkx33-11-3751 13:11-0500Body .4 cmGio Asenciong DO Work Phone: [facility]12-10-2024 13:11-0500Body mass index (BMI) [Ratio]20.82 kg/g1Xqtejq Furlong DO Work Phone: [facility]12-10-2024 13:11-0500Body tgbqfsjwbog38.81 [degF]Gio Asenciong DO Work Phone: [facility] Eqffnu77-51-3594 13:11-0500Body lyrwsd39.58 kgDenella Asenciong DO Work Phone: [facility]12-10-2024 13:11-0500Diastolic blood mm[Hg]Gio Asenciong DO Work Phone: [facility] Zqhagy84-69-4405 13:11-0500Heart rate 95 /Maria Guadalupe Asenciong DO Work Phone: [facility] Rcdpgq43-65-1432 13:11-0500 Respiratory rate18 /minDhoneyis Furlong DO Work Phone: [facility] Tdcjba82-73-7178 13:11-9496SwP5% (BldA) [Mass fraction]97 %Gio Furlong DO Work Phone: [facility] Hngdrz26-05-7640 13:11-0500Systolic blood ywvkxgdb337 mm[Hg]Gioella Cabreralong DO Work Phone: [facility]07-23-2024 13:49-0400Body iowyzz119.4 cmDennis Ricklong DO Work Phone: [facility] Yziiat41-94-0935 13:49-0400Body mass index (BMI) [Ratio]18.93 kg/r0Byszyg Furlong DO Work Phone: [facility] Fmzubi98-68-6698 13:49-0400Body fdyjtmlgzyt81.71 [degF]Gioella Cabreralong DO Work Phone: [facility] Wnozcl28-55-8104 13:49-0400Body .09 kgDenella Cabreralong DO Work Phone: [facility] Gvihkh79-45-9845 13:49-0400Diastolic blood gapgccrf55 mm[Hg]Gio Cabreralong DO Work Phone: [facility] Tbjvku03-36-8003 13:49-0400Heart rate 59 /Cooperis Ricklong DO Work Phone: [facility] Rgoint73-79-5889 13:49-0400 Respiratory rate18 /Cooperis Furlong DO Work Phone: [facility] Byuimm14-80-5278 13:49-3588WiP9% (BldA) [Mass fraction]97 %Gio Cabreralong DO Work Phone: [facility] Zdjxvx52-03-9886 13:49-0400Systolic blood blzlibbb163 mm[Hg]Gio Mathews DO Work Phone: [facility] Tnrbtc37-74-3317 12:12-0400Body xhtzyf267.4 cmDracy Mena APRN-PODIATRIST ASSISTANT Work Phone: [facility]07-11-2024 12:12-0400Body mass index (BMI) [Ratio]18.58 kg/u1FcxestwDarcy Mena [employer] QUALITY TECHNICIAN-PODIATRIST ASSISTANT Work Phone: [facility]07-11-2024 12:12-0400Body lxizji29.87 kgDarcy Mena [employer] QUALITY TECHNICIAN-PODIATRIST ASSISTANT Work Phone: [facility]07-11-2024 12:12-0400Diastolic blood cavqnmcl34 mm[Hg]Darcy Mena APRN-PODIATRIST ASSISTANT Work Phone: [facility]07-11-2024 12:12-0400Heart rate 81 /minDarcy Mena APRN-PODIATRIST ASSISTANT Work Phone: [facility] Yxnbim79-64-0835 12:12-0400Systolic blood mm[Hg]Darcy Mena APRN-PODIATRIST ASSISTANT Work Phone: [facility]08-31-2023 13:38-0400Body oprmqg920.9 Kathy Ramos MD, PhD Work Phone: [phone]gZupnxx70-00-1900 13:38-0400Body mass index (BMI) [Ratio]18.63 kg/f0QkeqcMahesh Ramos MD, PhD Work Phone: [phone]jCjkhhm54-80-0229 13:38-0400Body mmuwiv70.32 kg Mahesh Ramos MD, PhD Work Phone: [phone]cZvelma90-62-1343 13:38-0400Diastolic blood edxdqkqe23 mm[Hg]Mahesh Ramos MD, PhD Work Phone: [phone]hhuSnmsdl85-71-2840 13:38-0400Heart rate66 /minMahesh Ramos MD, PhD Work Phone: [phone]ekoZmopux36-26-5123 13:38-0400Respiratory rate16 /Clover Ramos MD, PhD Work Phone: [phone]iSndhvs07-38-9989 13:38-4650EnV1% (BldA) [Mass fraction]95 %Mahesh Ramos MD, PhD Work Phone: [phone]uXxjzre00-51-2464 13:38-0400Systolic blood mm[Hg]Mahesh Ramos MD, PhD Work Phone: [phone]lKrjysa60-38-8508 08:15-0400Heart rate68 /Ivette Renae MD Work Phone: [phone]sPaadck97-25-9567 08:15-0400Respiratory rate18 /Ivette Renae MD Work Phone: [phone]jIjtzjt91-54-0998 08:10-4776FhF1% (BldA) [Mass fraction]97 %Jameson Renae MD Work Phone: [phone]pDzrveu01-67-7302 05:22-0400Body moknzxpsrll45.81 [degF]Jameson Renae MD Work Phone: [phone]ssuYifnqh43-81-4020 05:22-0400Diastolic blood dyapehpc42 mm[Hg]Jameson Renae MD Work Phone: [phone]vOsfgqi47-06-0884 05:22-0400Systolic blood fsobujho08 mm[Hg]Jameson Renae MD Work Phone: [phone]gGonglx69-02-8029 16:04-0400Heart rate75 /Ivette Renae MD Work Phone: [phone]JftzqAgenlw55-81-7978 18:50-0400Body azjuxx725.9 cm Jameson Renae MD Work Phone: [phone]mriaXfgqpw85-74-8553 18:50-0400Body mass index (BMI) [Ratio]20.75 kg/c1CsercJameson Renae MD Work Phone: 1(620) [phone]YjptjPospxt11-19-7902 18:50-0400Body .4 kg Jameson Renae MD Work Phone: [phone]ImrhiGnwiwy69-43-9315 13:23-0400Body mass index (BMI) [Ratio]20.45 kg/c2XqwvwDana Ordonez APRN-PODIATRIST ASSISTANT Work Phone: [phone]RrkljSireky52-10-7855 13:23-0400Body adxzrbvdydd43.29 [degF]Dana Ordonez F[employer] QUALITY TECHNICIAN-PODIATRIST ASSISTANT Work Phone: [phone]JaggjVcrflg82-36-7521 13:23-0400Body uppafa99.31 kg Dana Ordonez APRN-PODIATRIST ASSISTANT Work Phone: 1(180) [phone]nXvkirc04-50-9972 13:23-0400Diastolic blood odjtybza58 mm[Hg]Dana Ordonez APRN-PODIATRIST ASSISTANT Work Phone: [phone]zmiTuyzwl89-56-6301 13:23-0400Heart rate58 /minDana Ordonez F[employer] QUALITY TECHNICIAN-PODIATRIST ASSISTANT Work Phone: 1(798) [phone]hggdBbqlfx10-69-4845 13:23-0400Respiratory rate14 /minDana Ordonez F[employer] QUALITY TECHNICIAN-PODIATRIST ASSISTANT Work Phone: 1(175) [phone]rVqyjaj48-87-6495 13:23-6350FfY4% (BldA) [Mass fraction]100 %Dana Ordonez APRN-PODIATRIST ASSISTANT Work Phone: [phone]VikixBildqi48-65-8967 13:23-0400Systolic blood mm[Hg]Dana Ordonez APRN-PODIATRIST ASSISTANT Work Phone: [phone]NkvrgOlxfuo12-98-8416 10:16-0400Body ukihjy659.9 cm Benton-Min [employer] F[employer] QUALITY TECHNICIAN-LABOR SERVICE REPRESENTATIVE Work Phone: 1(579) [phone]uTqftvi49-63-8365 10:16-0400Body mass index (BMI) [Ratio]20.75 kg/e3Hokk-Anj Song [employer] QUALITY TECHNICIAN-LABOR SERVICE REPRESENTATIVE Work Phone: [phone]lNxalrn89-45-4566 10:16-0400Body iyadopiqixz90.1 [degF]Benton-Min Song [employer] QUALITY TECHNICIAN-LABOR SERVICE REPRESENTATIVE Work Phone: 1(174) [phone]cAtuzks40-53-9401 10:16-0400Body lfyxxz82.4 kg Benton-Min Song [employer] QUALITY TECHNICIAN-LABOR SERVICE REPRESENTATIVE Work Phone: [phone]pBhblzo73-03-2952 10:16-0400Diastolic blood hpbiupik49 mm[Hg]Benton-Min Song [employer] QUALITY TECHNICIAN-LABOR SERVICE REPRESENTATIVE Work Phone: [phone]ZdclmAfhevu30-85-0573 10:16-0400Heart rate85 /minJung- Min Song [employer] QUALITY TECHNICIAN-LABOR SERVICE REPRESENTATIVE Work Phone: 1(441) [phone]dYcfoto31-58-2841 10:16-0400Respiratory rate18 /minJung-Min Song [employer] QUALITY TECHNICIAN-LABOR SERVICE REPRESENTATIVE Work Phone: [phone]gBucrrh34-44-8664 10:16-4389SrH3% (BldA) [Mass fraction]98 %Benton-Min Song [employer] QUALITY TECHNICIAN-LABOR SERVICE REPRESENTATIVE Work Phone: 1(698) [phone]ikdOhwiux84-13-6461 10:16-0400Systolic blood rqxgyism426 mm[Hg]Benton-Min Song [employer] QUALITY TECHNICIAN-LABOR SERVICE REPRESENTATIVE Work Phone: [phone]6VcoxoEnuioj35-07-1915 09:32-0400Body ivuglr359.9 cm Mahesh Ramos MD, PhD Work Phone: [phone]eaiCxtdzo34-84-6118 09:32-0400Body mass index (BMI) [Ratio]20.8 kg/q1UjoebMahseh Ramos MD, PhD Work Phone: [phone]nCcrvkw33-37-0111 09:32-0400Body ehgohgesqmk86.4 [degF]Mahesh Ramos MD, PhD Work Phone: [phone]uFcwlrk35-42-1711 09:32-0400Body ezvqop96.58 kg Mahesh Ramos MD, PhD Work Phone: [phone]GwhqoUolyhf17-06-4373 09:32-0400Diastolic blood kcvpticg56 mm[Hg]Mahesh Ramos MD, PhD Work Phone: 1(864) [phone]viyqVctfnu14-78-8074 09:32-0400Heart rate70 /minMahesh Ramos MD, PhD Work Phone: 1(227) [phone]NyexyMnlcza71-71-2358 09:32-0400Respiratory rate14 /minMahesh Ramos MD, PhD Work Phone: 1(319) [phone]GplvtGkivfh29-66-9863 09:32-7863RaW8% (BldA) [Mass fraction]97 %Mahesh Ramos MD, PhD Work Phone: 1(635) [phone]gIsbkcd31-01-2388 09:32-0400Systolic blood ozxpayiz647 mm[Hg]Mahesh Ramos MD, PhD Work Phone: 1(165) [phone]LqcycHuuwvz88-05-7967 09:27-0500Heart rate78 /min [facility]02-23-2023 09:27-7431GaG7% (BldA) [Mass fraction]93 %[facility]02-23-2023 09:27-0500Diastolic blood ayxnphwt60 mm[Hg][facility]02-23-2023 09:27-0500Mean blood obegmotu820 mm[Hg][facility]02-23-2023 09:27-0500Systolic blood gothzghd083 mm[Hg][facility]02-23-2023 09:27-0500Body .06 [degF][facility]02-23-2023 09:27-0500Blood Pressure Location[facility]02-23-2023 09:27-0500Body aaogoqusvme58.06 [degF][facility]02-23-2023 09:27-0500Mean blood pressure 106 mm[Hg][facility] 09:27-0500 Respiratory rate18 /[facility]MarcC[facility]10-05-2022 14:42-0400Body dkgqrwzfhex45 [degF]DNP Lizbeth Kaple Work Phone: 1([phone] [place], [place] 6834210-05-2022 14:42-0400 Body oerpkk00.94 kgDNP Lizbeth Kaple Work Phone: 1(179)[address] [place], [place] 6834210-05-2022 14:42-0400 Diastolic blood mm[Hg]DNP Lizbeth Kaple Work Phone: 1(444)[address] [place], [place] 6834210-05-2022 14:42-0400 Heart rate93 /minDNP Lizbeth Kaple Work Phone: 1(488)[address] [place], [place] 6834210-05-2022 14:42-0400 Respiratory rate16 /minDNP Lizbeth Kaple Work Phone: 1([phone] [place], [place] 6834210-05-2022 14:42-0400 SaO2% (BldA) [Mass fraction]97 %DNP Lizbeth Kaple Work Phone: 1(694)[address] [place], [place] 6834210-05-2022 14:42-0400 Systolic blood pwolhpmp176 mm[Hg]DNP Lizbeth Kaple Work Phone: 1(341)[address] [place], [place] 6834208-26-2022 14:32-0400 Body vtbiwboftyg67.8 [degF]DNP Lizbeth Kaple Work Phone: 1(934)[address] [place], [place] 6834208-26-2022 14:32-0400 Body udbdqp97.03 kgDNP Lizbeth Kaple Work Phone: 1(303)[address] [place], [place] 6834208-26-2022 14:32-0400 Diastolic blood oqgthcan53 mm[Hg]DNP Lizbeth Kaple Work Phone: 1(363)[address] [place], [place] 6834208-26-2022 14:32-0400 Heart rate69 /MacoNP Lizbeth Penaloza Work Phone: [facility]08-26-2022 14:32-0400 Respiratory rate16 /minDNP Lizbeth Penaloza Work Phone: 1(170)3-[facility]08-26-2022 14:32-0400 SaO2% (BldA) [Mass fraction]94 %DNP Lizebth Penaloza Work Phone: [facility]895)[facility]26-2022 14:32-0400 Systolic blood jnoxmrlp084 mm[Hg]DNP Lizbeth Penaloza Work Phone: 1(051)180-[facility]08-25-2022 09:19-0400 Body xvotyq751.88 cmReferring Provider XbbcxddPG-Anzcekr-Kgjwcxh 2099 Work Phone: 1(273) 727-424908-25-2022 09:19-0400Body mass index (BMI) [Ratio] 20.36 kg/g6Xtrglbdro Provider CagobswUE-Hmohumc-Hirxwlj 2099 Work Phone: 1(284) 843-466608-25-2022 09:19-0400Body surface area Derived from formula1.89 w2Rupezpwzx Provider LnenqetAC-Bfiwgvd-Qvshcnm 2099 Work Phone: 1(737) 254-704408-25-2022 09:19-0400Body liktkz87.1 kgReferring Provider TrttdtcSP-Tgjwkdy-Wkhawlu 2099 Work Phone: 1(602) 979-386608-25-2022 09:19-0400Diastolic blood epijdqoo89 mm[Hg] Referring Provider AhojnmtYB-Ytohpnl-Pdaaxeb 2100 Work Phone: 1(444) 430-876008-25-2022 09:19-0400Heart rate70 /minReferring Provider NsrcghoSY-Iudffdl-Yyaqhcm 2099 Work Phone: 1(845) 423-489208-25-2022 09:19-0400Systolic blood xfjuzceg236 mm[Hg] Referring Provider KdoqiobQL-Uwnpqsx-Rdxjldc 2100 Work Phone: 1(615) 851-782707-20-2022 09:01-0400Body woboqn987.88 cmDNP Lizbeth Kaple Work Phone: 1(335)[address] [place], [place] 6834207-20-2022 08:17-0400 Body dmmhnsuaudv11.5 [degF]DNP Lizbeth Blevinsle Work Phone: 1(824)[address] [place], [place] 6834207-20-2022 08:17-0400 Body eoeysx02.67 kgDNP Lizbeth Blevinsle Work Phone: 1(573)[address] [place], [place] 6834207-20-2022 08:17-0400 Diastolic blood mfpoohqb88 mm[Hg]DNP Lizbeth Blevinsle Work Phone: 1(140)[address] [place], [place] 6834207-20-2022 08:17-0400 Heart rate67 /minDNP Lizbeth Blevinsle Work Phone: 1(533)[address] [place], [place] 6834207-20-2022 08:17-0400 Respiratory rate16 /minDNP Lizbeth Penaloza Work Phone: 1(178)[address] [place], [place] 6834207-20-2022 08:17-0400 SaO2% (BldA) [Mass fraction]93 %DNP Lizbeth Blevinsle Work Phone: 1(694)[address] [place], [place] 6834207-20-2022 08:17-0400 Systolic blood aywcqnkg211 mm[Hg]DNP Lizbeth Blevinsle Work Phone: 1([phone] [place], [place] 6834206-23-2022 15:05-0400 Body kojpaa670.42 cmAangelo Galloway Other [employer] Other 06-23-2022 15:05-0400Body mass index (BMI) [Ratio] 19.13 kg/r0ZejjjMary Carmen Galloway Other [employer] Other 06-23-2022 15:05-0400Body qzsscyvrxea13.8 [degF]Mary Carmen Galloway Other [employer] Other 06-23-2022 15:05-0400Body phvxbi51.77 kgDanieladiane Galloway Other [facility] [employer] Other 06-23-2022 15:05-0400Diastolic blood rcvtkamo50 mm[Hg] Mary Carmen Galloway Other [employer] Other 06-23-2022 15:05-0400Respiratory rate18 /minMary Carmen Galloway [facility] [employer] Other 06-23-2022 15:05-6080MnR3% (BldA) [Mass fraction]99 % Mary Carmen Galloway [facility] [employer] Other 06-23-2022 15:05-0400Systolic blood mfvkxohs483 mm[Hg] Mary Carmen Galloway [facility] [employer] Other 04-12-2022 11:15-0400Body tpcpibmbfmq48.5 [degF] [employer] Work Phone: [phone]FrqlhOvuxgh15-83-2678 11:15-0400Diastolic blood mrspyabn55 mm[Hg]Yoselin Times Work Phone: [phone]GlkoiFxzjzz32-09-7980 11:15-0400Heart rate70 /min Yoselin Times Work Phone: [phone]LfcnpFjimml49-19-2556 11:15-0400Respiratory rate14 /minMelissa Times Work Phone: [phone]SrqyeKrmjak26-77-4067 11:15-1516QbA7% (BldA) [Mass fraction]96 %Yoselin Times Work Phone: [phone]wFysdaf44-54-8138 11:15-0400Systolic blood tbupxiku795 mm[Hg]Yoselin Padron MD Work Phone: [phone]oIuugsw09-43-5259 09:40-0400Body ochmkb546.9 cm Yoselin Times Work Phone: [phone]pJudxjb83-34-5344 09:40-0400Body mass index (BMI) [Ratio]20.48 kg/j5Rxudqkr Times Work Phone: [phone]xHxxzvj33-59-0367 09:40-0400Body cdmuub78.49 kg Yoselin Times Work Phone: DfcbmDitiwz10-892924BxaftRjvilw02-45-6084 22:09-0400Heart rate61 /min Yoselin Times Work Phone: [phone]cFpmshg25-95-3222 15:04-0400Body .9 cm Yoselin Times Work Phone: [phone]gCtlpwj05-87-3845 15:04-0400Body mass index (BMI) [Ratio]20.48 kg/p4Aedmxmd Times Work Phone: WjtkrWygejq60-247530NfdmmQrgnwi73-40-1690 15:04-0400Body .49 kg Yoselin Times Work Phone: [phone]hXnaazu85-62-6422 15:04-0400Diastolic blood ewjooqix41 mm[Hg]Yoselin Times Work Phone: [phone]tDeilpi37-16-2251 15:04-0400Heart rate84 /min Yoselin Times Work Phone: [phone]dBhbboo37-36-1243 15:04-0400Respiratory rate18 /minMelissa Times Work Phone: VxmmcUnreuu77-820436UkjvaSxnvyr03-81-2754 15:04-0400Systolic blood liuvvrfg097 mm[Hg]Yoselin Times Work Phone: [phone]kOetgsu69-13-0061 14:58-0400Diastolic blood pdimyytm58 mm[Hg]Victoriano Chandler MD Work Phone: [phone]pWotleo60-01-4076 14:58-0400Heart rate71 /min Victoriano Chandler MD Work Phone: [phone]wWjdkaq17-64-1093 14:58-0400Systolic blood uyvxcvad399 mm[Hg]Victoriano Chandler MD Work Phone: [facility] Encounters Encounter DateEncounter [facility] ProviderFacilityStart: 02-12-2025 End: 20-11-3710WezxuxZbckjy G Furlong DO Work Phone: [facility] Physicians Internal Medicine - Family MedicineComment on above:AnxietyStart: 02-07-2025 End: 82-98-3798Wzzykf encounterThdung Chandler MD Work Phone: [facility] 01-14-2025 End: 40-57-8437kaizscfsajBQGHJQ [facility] Ambulatory PPGStart: 01-14-2025 End: 91-87-9787Spxrfv outpatient visit 25 minutesGood Samaritan Medical Centerella Mathews DO Work Phone: [facility] Phys[facility] Internal Medicine - Family MedicineComment on above:Anxiety (Primary Dx); Depression, unspecified depression type; Seizure (CMS-HCC); Gastroesophageal reflux disease, unspecified whether esophagitis presentStart: 12-22-2024 End: 82-85-5767CwhaaxLerprn G Furlong DO Work Phone: [facility] Phys[facility] Internal Medicine - Family MedicineComment on above:AnxietyStart: 11-28-2024 End: 14-88-3350Nlsozelxu encounterMasood Vlad Crowell MD Work Phone: [facility] Oncology MedicalStart: 11-27-2024 End: 91-49-3710Mcuozjpeg encounterMasood Vlad Crowell MD Work Phone: [facility] Oncology MedicalStart: 11-26-2024 End: 39-61-6583Ssxuzbqyyj OrdersDenella Mathews Work Phone: [facility] ServiceStart: 10-28-2024 End: 25-00-6361JsnvogWezwwp G Furlong DO Work Phone: [facility] Phys[facility] Internal Medicine - Family MedicineComment on above:Epigastric painStart: 10-20-2024 End: 02-89-7527HmsbxrFquvmq G Furlong DO Work Phone: [facility] Phys[facility] Internal Medicine - Family MedicineComment on above:Epigastric painStart: 09-11-2024 End: 75-53-6029Ydophn outpatient visit 25 minutesGio Mathews DO Work Phone: [facility] Phys[facility] Internal Medicine - Family MedicineComment on above:Anxiety (Primary Dx); Medication management; Depression, unspecified depression type; Gastroesophageal reflux disease, unspecified whether esophagitis presentStart: 09-11-2024 End: 53-58-3692ybcxexczroUIXBTHGordon [facility] Hospital Ambulatory PPGStart: 09-08-2024 End: 94-44-6950Selbeeilh encounterLakey Demarco [facility] Physicians General SurgeryStart: 09-04-2024 End: 38-72-3121RtioqdPavbtg G Furlong DO Work Phone: [facility] Physicians Internal Medicine - Family MedicineComment on above:AnxietyStart: 08-27-2024 End: 25-94-3142buluoaosxhFYVVFVGordon Memorial Hospital Ambulatory PPGStart: 08-27-2024 End: 94-06-4802Vrkkvw outpatient visit 5 minutesGio Mathews DO Work Phone: [facility] Physicians Internal Medicine - Family MedicineComment on above:Dysuria (Primary Dx); Right lower quadrant abdominal painStart: 08-25-2024 End: 47-33-1064Pcivgusrmr and management of inpatientThe Bellevue Hospitaltart: 08-19-2024 End: 85-12-4397oddllqradkVoa Pat Phone Call Provider [address] [place] [address] - Pre AdmitStart: 08-19-2024 End: 95-32-3752tlbiuazlqpHNEBQHBerkshire Medical Centertart: 08-18-2024 End: 98-38-8198Rskfpjjfr encounterRegandrew Braga AProMedspringhill [facility] Physicians [facility] SurgeryStart: 08-18-2024 End: 46-46-1894Xdxptp outpatient visit 15 minutesGio Asenciong DO Work Phone: [facility] Physicians Internal Medicine - Family MedicineComment on above:Urinary tract infection without hematuria, site unspecified (Primary Dx)Start: 08-18-2024 End: 39-72-2372hsawmwffxrKNOKNUColorado [facility] Ambulatory PPGStart: 08-11-2024 End: 76-30-2455xpzkyqflwxZESFFBXIndiana [facility] Amb[facility] PPG Start: 08-11-2024 End: 20-45-2158Pnltqw outpatient visit 15 minutesF[facility] FIBERGLASS QUALITY TECHNICIAN-PODIATRIST ASSISTANT Work Phone: [facility] Physicians General SurgeryComment on above: Abnormal gastrointestinal PET scan (Primary Dx); History of carcinoma in situ of anal canal; Abnormal findings on diagnostic imaging of other parts of digestive tractStart: 07-25-2024 End: 66-88-1118JjzdwmLhviiz G Furlong DO Work Phone: [facility] Physicians Internal Medicine - Family MedicineStart: 07-03-2024 End: 87-23-5057Lgwrwr outpatient new 45 minutesMohamed Sylvie Pierce MD Work Phone: [facility] Physicians [facility] Vascular SurgeryComment on above:Thoracic aortic aneurysm without rupture, unspecified part ([facility]-HCC)Start: 07-03-2024 End: 78-00-4766pnoknbcfrhBDIWTUS F OSMORIONLake County Memorial Hospital [facility] Ambulatory PPGStart: 06-09-2024 End: 37-41-1517Tbqrvd outpatient visit 25 minutesDenella Cabreralong DO Work Phone: [facility] Physicians Internal Medicine - Family MedicineComment on above:Anxiety (Primary Dx); Depression, unspecified depression type; Insomnia, unspecified type; Recurrent anal squamous cell carcinoma ([facility]-HCC); Thoracic aortic aneurysm without rupture, unspecified part ([facility]-HCC)Start: 06-09-2024 End: 30-32-9565ezsgbevjuoWOGYTHGordon Memorial Hospital Ambulatory PPGStart: 06-06-2024 End: 22-16-3220ZopabtGapsyk G Furlong DO Work Phone: [facility] Physicians Internal Medicine [facility] MedicineComment on above:AnxietyStart: 05-06-2024 End: 39-95-2800Vuppjbyhc encounterAllshahnaz Johnson [facility] Physicians Jobst VascularStart: 04-22-2024 End: 50-04-9391RvtaceKvzmx Peng LEONARDJ.W. Ruby Memorial Hospital Physicians Internal Medicine - Family MedicineComment on above:AnxietyStart: 04-15-2024 End: 14-39-4082Yuozsstqv encounterAllshahnaz Johnson CMAUniversity Hospitals Conneaut Medical Centergabi Physicians Jobst VascularStart: 04-10-2024 End: 13-20-3301RxdiylIcepta Mian Mathews DO Work Phone: [facility] Physicians Internal Medicine - [facility] MedicineStart: 03-18-2024 End: 62-44-9505leposohthfGWSPQX Mian CABRERAOhioHealth Grady Memorial Hospital HospitalStart: 25-43-6564Peqyvcvlf for general adult medical examination without abnormal findingsGIO [facility] HospitalStart: 03-18-2024 End: 35-46-8051Nwpwdyh encounter procedureGio Mathews DO Work Phone: [facility] Physicians Internal Medicine [facility] BraseltonComment on above:Welcome to Medicare preventive visit (Primary Dx); Need for immunization against influenza; Screening for depression; Anxiety; Screening for heart disease; Seizure ([facility]); Thoracic aortic aneurysm without rupture, unspecified part ([facility]); Depression, unspecified depression type; Gastroesophageal reflux disease, unspecified whether esophagitis presentStart: 03-18-2024 End: 41-04-7449Rtoswcm encounter statusGio Mathews DO Work Phone: [facility] SystemStart: 03-18-2024 End: 77-79-1764pxzroapxyhTCKRAYColorado Mental [facility] Ambulatory PPGStart: 58-21-8385Frdyvihki for general adult medical examination without abnormal findingsGIO Pappas [facility] Ambulatory PPGStart: 02-29-2024 End: 39-66-4892EukntwSzbwvv G Furlong DO Work Phone: [facility] Physicians Internal Medicine - Family MedicineComment on above:AnxietyStart: 02-29-2024 End: 89-89-7897FszyycNktrgzg Bairon [facility] Physicians Internal Medicine - Family MedicineComment on above:AnxietyStart: 12-31-2023 End: 30-92-7520MqbbouSgywmc G Furlong DO Work Phone: [facility] Physicians Internal Medicine - Family MedicineStart: 12-21-2023 End: 16-13-7616KokpkuFtivj Peng [facility] Physicians Internal Medicine - [facility] MedicineStart: 12-17-2023 End: 50-67-8279PsigwrAuxdcw G Rickbabak DO Work Phone: [facility] Physicians Internal Medicine - Family MedicineComment on above:AnxietyStart: 11-17-2023 End: 04-97-6780LevpogPzsuzerSolomon Paz MD Work Phone: [facility] Oncology Palliative CareComment on above: RefillStart: 10-30-2023 End: 81-42-2487Ghuepl outpatient visit [address] [place], [place] [address]Gio Mathews DO Work Phone: [facility] Physicians Internal Medicine - Family MedicineComment on above:Anxiety (Primary Dx); Encounter for screening mammogram for malignant neoplasm of breast; Gastroesophageal reflux disease, unspecified whether esophagitis present; Anemia due to chemotherapy; Depression, unspecified depression type; Hypokalemia; Multiple joint painStart: 10-29-2023 End: 98-77-1006Drahtyyld Kisha Demarco [facility] Physicians General SurgeryStart: 10-24-2023 End: 78-68-7450jiefuprepyPxgtqki [facility] CampusComment on above:Recurrent anal squamous cell carcinoma (CMS-HCC)Start: 10-24-2023 End: 60-43-8624Dmvxqsoc ReferredDO Chey Infante Work Phone: [facility] Path Spec Aime HospStart: 10-18-2023 End: 83-83-9361Jyimaa outpatient visit 15 minutesDarcy Mena FIBERGLASS QUALITY TECHNICIAN-PODIATRIST ASSISTANT Work Phone: [facility] Physicians General SurgeryComment on above: 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); Anemia due to chemotherapyStart: 10-10-2023 End: 30-03-0861RtliksNxpptucMichael Paz MD Work Phone: [facility] Oncology Palliative CareComment on above: RefillAnxietyStart: 10-01-2023 End: 89-98-4823LbwpdfMjyoo Peng [facility] Physicians Internal Medicine - Family MedicineStart: 09-17-2023 End: 94-81-0794IecszlJzibi Damko FIBERGLASS QUALITY TECHNICIAN-PODIATRIST ASSISTANT Work Phone: [facility] Oncology Palliative CareComment on above: RefillStart: 09-11-2023 End: 65-12-3720SnpmpuCdsad Peng [facility] Physicians Internal Medicine - Family MedicineComment on above:Anxiety (Primary Dx)Start: 08-29-2023 End: 00-62-3982Gbqcuy outpatient new 45 minutesMichael E Grillis DO Work Phone: [facility] Physicians General SurgeryComment on above: 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); Anemia due to chemotherapyStart: 08-29-2023 End: 28-99-3347Pdtlqp OnlyDarcy Mena FIBERGLASS QUALITY TECHNICIAN-PODIATRIST ASSISTANT Work Phone: [facility] Physicians General SurgeryStart: 08-21-2023 End: 26-90-9398Tkooxtppc encounterMichael E Grillis DO Work Phone: [facility] Physicians General SurgeryStart: 05-13-2023 Letter encounterVictoriano Chandler MD Work Phone: [facility]HealthStart: 78-52-1789uumqcoeoleBhajtql Soltesz PharmD Work Phone: [facility] PharmacyStart: 10-28-2064Xwqyrg encounterVictoriano Chandler MD Work Phone: [facility]HealthStart: 46-82-2761Uohgipzzc encounterRosemarie Smith MD Work Phone: [facility] Oncology MedicalStart: 35-14-6282Cjiofwrne encounterRosemarie Smith MD Work Phone: [facility] Oncology MedicalComment on above:Speak with providerStart: 01-12-2023 End: 01-94-8569Mqazfjbdcs hospital visit by Madison Ramirez RD Work Phone: [facility] Oncology MedicalComment on above:Dx: NO SHOW (Primary Dx)Start: 51-53-5427TkqqmuNpohx Damko FIBERGLASS QUALITY TECHNICIAN-PODIATRIST ASSISTANT Work Phone: [facility] Oncology Palliative CareComment on above: RefillStart: 12-29-2022 End: 88-76-4085Ojjlzvnesqxn consultation with patientElviakelli Mery FIBERGLASS QUALITY TECHNICIAN-PODIATRIST ASSISTANT Work Phone: [facility] Oncology Palliative CareComment on above: NO SHOW (Primary Dx)Start: 12-20-2022 End: 34-36-2237Yizabuuphn hospital visit by Madison Ramirez RD Work Phone: [facility] Oncology MedicalComment on above:Dx: NO SHOW (Primary Dx)Start: 12-07-2022 End: 10-19-9181Gkevqbykqu hospital visit by Gabby Acosta RN [facility] Oncology MedicalComment on above:Dx: Anal cancer (HCC) (Primary Dx) Start: 12-07-2022 End: 33-30-2458Htxyhc outpatient visit 15 Tommie Ramos MD, PhD Work Phone: [facility] Radiation OncologyComment on above:Anal squamous cell carcinoma (HCC) (Primary Dx); Body mass index (BMI) 19.9 or less, adultStart: 12-01-2022 End: 87-57-0182Cohe/qhp telephone evaluation 11-20 Palmer Ordonez FIBERGLASS QUALITY TECHNICIAN-PODIATRIST ASSISTANT Work Phone: [facility] Oncology Palliative CareComment on above: Anal cancer (HCC); Use of opiates for therapeutic purposes; Palliative care encounter; Cancer related pain; Palliative care by specialist; Neuropathic pain; Nausea and vomiting, unspecified vomiting typeStart: 85-42-0632pcvmfqmyaiDvdes M. Laye MD Work Phone: [facility] Radiation OncologyStart: 11-29-2022 Documentation procedureSanju Farmer MD Work Phone: [facility] Radiation OncologyStart: 11-27-2022 End: 26-14-6536dqpgyzanhdLkwaqx Knackstedt MD Work Phone: [facility] Radiation OncologyStart: 11-27-2022 End: 72-17-6997Tgchnaxuueqiv procedureTrilogy Work Phone: [facility] Radiation OncologyStart: 11-23-2022 End: 00-17-6302Qtdkjo outpatient visit 40 Barrett Ordonez FIBERGLASS QUALITY TECHNICIANSongdrop Work Phone: [facility] Oncology Palliative CareComment on above: Anal cancer (HCC) (Primary Dx); Use of opiates for therapeutic purposes; Palliative care encounter; Cancer related pain; Palliative care by specialist; Neuropathic pain; Nausea and vomiting, unspecified vomiting typeStart: 11-17-2022 End: 25-36-1115Fqerxtgzgy hospital visit by physicianOn TreatmentMetBluffton Hospital Oncology MedicalComment on above:Dx: Anal cancer (HCC) (Primary Dx)Start: 11-13-2022 End: 79-16-9663Moaxmgbbrz hospital visit by Madison Emmanuel RN Work Phone: [facility] Oncology MedicalComment on above:Dx: Anal squamous cell carcinoma (HCC) (Primary Dx)Start: 11-06-2022 End: 13-49-6434Bmpeulsz SupportPathology ProviderMercy Health Lorain Hospital PathologyComment on above:ArrivedStart: 74-05-8243TlcvvpLilli Veloz RN [facility] Radiation OncologyStart: 10-31-2022 End: 54-66-8931Vklvfpkyij hospital visit by physicianJameson Renae MD Work Phone: [facility] RadiologyComment on above:ArrivedStart: 10-31-2022 End: 62-04-8310Fwkcgnnezt and management of inpatientJameson Renae MD Work Phone: [facility] [address] [facility] AComment on above:Dx: Anal squamous cell carcinoma (HCC) (Primary Dx)Start: 10-19-2022 End: 09-27-6830Sethio outpatient new 60 minutesDana Ordonez FIBERGLASS QUALITY TECHNICIAN-PODIATRIST ASSISTANT Work Phone: MetStrataviaPremier Health [facility] Oncology Palliative CareComment on above: Palliative care encounter (Primary Dx); Palliative care by specialist; Cancer related pain; Body mass index (BMI) 20.0-20.9, adultStart: 10-16-2022 End: 52-78-0758Hnjzuungvq hospital visit by Michael Baum RN Work Phone: MetStrataviaPremier [facility] Oncology MedicalComment on above:Dx: Perianal mass (Primary Dx)Start: 10-16-2022 End: 32-93-5606Hulglj outpatient visit 40 minutesKy Vegas FIBERGLASS QUALITY TECHNICIAN-LABOR SERVICE REPRESENTATIVE Work Phone: MetStrataviaPremier [facility] Oncology MedicalComment on above:Dx: Anal squamous cell carcinoma (HCC) (Primary Dx)Start: 60-81-9030aokoinpwykQbdthy L. Sunyak BSN Work Phone: [facility] Care Management/Patient AccessStart: 01-54-6567Omtqejjetiku of care planJennifer PAPPASN Work Phone: [facility] Care Management/Patient AccessComment on above:care coordinationStart: 44-87-4747Vorvzbgyh PharmacyCamron Roque PharmD Work Phone: [facility] Specialty PharmacyComment on above:Specialty Pharmacy Medication Refill (Xeloda)Start: 10-06-2022 End: 45-88-5047Xqdhxlc evaluation of patient and reportRad Onc NurseMetroHealth Radiation OncologyComment on above:Anal squamous cell carcinoma (HCC) (Primary Dx)Start: 10-03-2022 End: 50-56-2123Geqiztpobu hospital visit by physicianBv Op Ct Scan 1 Work Phone: [facility] CT ScanComment on above:Anal cancer (HCC)Start: 10-03-2022 End: 34-57-0564Ryepclrlbq hospital visit by physicianLeticia Holden RN Work Phone: [facility] Oncology MedicalComment on above:Dx: Anal squamous cell carcinoma (HCC)Start: 10-03-2022 End: 48-78-1437Cipsnh outpatient visit 25 minutesRosemarie Smith MD Work Phone: [facility] Oncology MedicalComment on above:Dx: Anal squamous cell carcinoma (HCC) (Primary Dx)Start: 10-03-2022 End: 45-86-2706Rfncao outpatient new 60 minutesMahesh Ramos MD, PhD Work Phone: [facility] Radiation OncologyComment on above:Anal squamous cell carcinoma (HCC) (Primary Dx); Body mass index (BMI) 20.0-20.9, adultStart: 15-34-2505Zuqtjcayv encounterDonald Vegas FIBERGLASS QUALITY TECHNICIAN-LABOR SERVICE REPRESENTATIVE Work Phone: [facility] Oncology MedicalStart: 71-12-1974Fsjufb OnlyRosemarie Smith MD Work Phone: [facility] Oncology MedicalStart: 09-17-2022 ambulatoryYoselin Padron MD Work Phone: [facility] Oncology MedicalStart: 84-46-7545Nuixmlbsz encounterYoselin Padron MD Work Phone: [facility] Surgery GeneralComment on above:Discuss results test/proceduresDiscuss results test/procedures; Discuss treatment plan Start: 97-36-2987Ojoaqpdbt encounterYoselin Padron MD Work Phone: [facility] Surgery GeneralComment on above:Discuss results test/proceduresStart: 67-08-9816Anqkyctxc to same day surgery center Yoselin Padron MD Work Phone: [facility] Surgery GeneralStart: 98-95-6773Urjdhs encounterRosemarie Smith MD Work Phone: [facility] Oncology MedicalStart: 16-21-9664Aivlwgybf encounterYobani Gonzales DDS, MD Work Phone: [facility] Oncology MedicalStart: 06-01-2022 End: 16-98-4461hvszbkrrvvBygdygp AdamowgraceFacility:FTMCStart: 06-01-2022 End: 87-01-3712Wkqisdp encounter [facility] Start: 01-11-2022 End: 01-39-2403gxvhtgcblsXGH Lizbeth Penaloza Work Phone: [facility] Work Phone: Start: 01-11-2022 End: 39-25-7009Umnmpugwze RecurringDNP Lizbeth Penaloza Work Phone: [facility]-Cancer CenterStart: 12-02-2021 End: 70-38-8344Xgcfrfutuf RecurringDNP Lizbeth Penaloza Work Phone: [facility]-Cancer CenterStart: 86-89-2018dimovnzvilHPH UNKNOWNFacility:9284Start: 86-86-7376Qxkchr consultation new/estab patient 80 minReferring Provider MvpogszTS-Okcnzvj-Azvdpge 2100 Work Phone: Start: 59-53-3225fytertvhaoJMX UNKNOWNFacility:[facility] Start: 11-03-2021 End: 24-68-2377Mlrszdmump RecurringDNP Lizbeth Penaloza Work Phone: [facility]-Cancer CenterStart: 10-26-2021 End: 74-90-9737Wxvaanukis RecurringDNP Lizbeth Penaloza Work Phone: [facility]-Cancer CenterStart: 10-03-2021 End: 75-90-1610gsrrhnnapnTbhiu Keller Other [employer]Gam[employer] Other Start: 77-96-0151Vxczwfovd encounterAmber Abby [facility]gent [facility] Rohith RoadStart: 09-29-2021 End: 72-08-1116Uwrpzfe encounter procedureDNP Lizbeth Ca Work Phone: [facility] Ricky Start: 09-29-2021 End: 31-07-6130eptektpgzmRfevy Keller Other nowestern [facility] [employer] Other Start: 97-55-0144Mlnpco outpatient visit 15 minutes Mary Carmen GallowayMian Urgent Care ClydeStart: 17-68-7111Yylrsqkcq encounterVicki HoneycuttMetroHealth Surgery GeneralStart: 31-94-4552Xeozetcrj encounterAmy Kiss RNMetroHealth Surgery GeneralComment on above:Care CoordinationStart: 21-29-6653Qseouhixc encounterYoselin Padron MD Work Phone: [facility] Surgery GeneralStart: 12-79-6134Ulfomjaty encounterYoselin Padron MD Work Phone: [facility] Surgery GeneralComment on above:Discuss results test/proceduresStart: 07-19-2021 End: 87-09-2221Bboyfgizvl hospital visit by physicianYoselin Padron MD Work Phone: [facility]Prem[facility] Main ORComment on above:Anal lesion (Primary Dx); Perianal massStart: 07-15-2021 End: 41-59-3389Fzcfjg outpatient new 45 minutesYoselin Padron MD Work Phone: [facility] Surgery GeneralComment on above:Perianal mass (Primary Dx); Abnormal electrocardiogram (ECG) (EKG); Body mass index (BMI) 20.0-20.9, adultStart: 69-03-5120Njgjhnepx to same day surgery centerYoselin Padron MD Work Phone: [facility] Surgery GeneralStart: 48-38-6439Hieydjzpu encounterVicki [facility] Surgery GeneralStart: 05-62-7334Drpmhe encounterVicki St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)Start: 06-09-2020 End: 18-91-4713Azhzvmd encounter procedureJennifer Kaple-[facility] [place] Start: 05-28-2020 End: 27-99-5729Gypbiaz encounter procedureJennifer Kaple-[facility] [place] Procedures DateProcedureProcedure DetailPerforming ClinicianStart: 06-09-8049Wxlcz depression screening assessmentDennis Furlong DO Work Phone: Start: 85-13-5840Tzfy tst prsmv instrmnt chem analyzers pr dateDennis G Furlong DO Work Phone: Start: 09-55-2386Wpxqf depression screening assessment Gio Furlong DO Work Phone: Start: 53-44-0572TqtimwkxzhbJufpdw Furlong DO Work Phone: Start: 40-23-8340Fopmo dip stick/tablet rgnt non-auto w/o micrscpDennis G Furlong DO Work Phone: Start: 34-64-7838Onjxl depression screening assessment Gio Furlong DO Work Phone: Start: 24-25-0372Ldwmz depression screening assessment Gio Furlong DO Work Phone: Start: 58-81-3694Nmmvp depression screening assessment Gio Furlong DO Work Phone: Start: 72-33-7061Mmyld i surg pathology gross examination onlyNot In System Ref ProvStart: 10-24-2023 End: 98-69-2000GedejdvhontGoezdxl Kelli Infante DO Work Phone: Start: 16-55-3921Nhrhp depression screening assessment Chey Infante DO Work Phone: Start: 81-34-9359Ywwshvutjmpx needle/intracatheter veinJung-Min Song FIBERGLASS QUALITY TECHNICIAN-LABOR SERVICE REPRESENTATIVE Work Phone: Start: 16-87-5467Qq infusion hydration initial 31 min- 1 hourJung-Min Song FIBERGLASS QUALITY TECHNICIAN-LABOR SERVICE REPRESENTATIVE Work Phone: Start: 46-69-4358ICH ONC ARIA SESSION SUMMARYRad Onc ProviderStart: 45-64-1775Yzap screen, Ashley Ordonez FIBERGLASS QUALITY TECHNICIAN-PODIATRIST ASSISTANT Work Phone: Start: 28-33-0973Py infusion hydration initial 31 min- 1 Zachary Smith MD Work Phone: Start: 76-63-1039Fpaacel admn iv push tq 04/09 sbst/drugRosemarie Smith MD Work Phone: Start: 57-49-3616Jpjmc of Devyn Simth MD Work Phone: Start: 26-12-9360Znrjkem function Mesfin Smith MD Work Phone: Start: 58-83-1637Nncfs of Devyn Smith MD Work Phone: Start: 50-74-9370Eelzfvt function Mesfin Smith MD Work Phone: Start: 48-46-9250Uchij of Navin Whitley PA-C Work Phone: Start: 72-43-7116Qrg prsmptv pthgnc organism scrn w/colony Nii Renae MD Work Phone: Start: 32-69-7532Mlyb screen quantitative vancomycin Autumn Trujillo [facility] Work Phone: Start: 74-76-8112Alvfc of magnesiumDybridgette Whitley PA- Work Phone: Start: 41-79-5319Cyacdwduuh exam chest single view Souleymanebridgette Whitley PA-C Work Phone: Start: 16-45-7724Wkl routine ecg w/least 12 lds trcg only w/o i&rDylan Maryann PA- Work Phone: Start: 15-10-7663Ldacgkn admn iv push tq 04/09 sbst/drugRosemarie Smith MD Work Phone: Start: 23-10-5940Bsijpauhofps needle/intracatheter veinRosemarie Smith MD Work Phone: Start: 32-75-0179Vu abdomen & pelvis w/contrast Shireen Padron MD Work Phone: Start: 32-17-8950Uzvcu of magnesiumRosemarie Smith MD Work Phone: Start: 45-99-4685Wftktrl function panelRosemarie Smith MD Work Phone: Start: 33-42-1597SSV of pelvis with contrastDNP Lizbeth Penaloza Work Phone: Start: 17-59-8254EfszurwcnndQjbvwv Furlobabak DO Work Phone: Start: 84-00-7770Lezmy X-ray of left handDNP Lizbeth Ca Work Phone: Start: 14-56-0846Sth routine ecg w/least 12 lds trcg only w/o i&rTo Be AssignedStart: 33-27-5817BV scan of thyroidJuannnraheem Ca Start: 33-46-8552Mhiqbyj ultrasonography of bilateral carotid arteriesJennifer KapleStart: 33-24-1259Tpdtrcmzvpi observation [Identifier] in Cervix by Cyto stainChey Infante DO Work Phone: Urine cultureDELANA Lizbeth Penaloza Work Phone: Plan of Treatment DateCare ActivityDetailAuthorStart: 73-18-6562WNK ( or age 60+ yrs) (1 - 1-dose 75+ series)RSV ( or age 60+ yrs) (1 - 1-dose 75+ series) [facility] SystemStart: 00-87-8442Jwxsexduz for malignant neoplasm of colonColonoscopyProAdena Health Systemca Health SystemStart: 53-19-4778Pqqpoowam for malignant neoplasm of colonColonoscopyUniversity Hospitals Conneaut Medical Centerca [facility] SystemStart: 92-31-3322Mtnph panel CholesterolMetroHealthStart: 49-60-6049Xmemmvqrk for malignant neoplasm of colon ColonoscopyProAdena Health Systemca [facility] SystemStart: 13-79-1527Wshigmepi for malignant neoplasm of colonColonoscopyUniversity Hospitals Conneaut Medical Centerca [facility] SystemStart: 45-21-4636Lwtlkcbbqyp [Mass/volume] in Serum or PlasmaCholesterolMetroHealthStart: 82-23-1370Nciyd BMI ScreeningAdult BMI ScreeningUniversity Hospitals Conneaut Medical Centerca Health SystemStart: 00-30-5317Reqmdtrrxb ScreeningDepression ScreeningUniversity Hospitals Conneaut Medical Centerca Health SystemStart: 92-97-2576Pzbc Risk ScreeningFall Risk ScreeningUniversity Hospitals Conneaut Medical Centerca Health SystemStart: 01-41-3161Lycshrk ScreeningTobacco ScreeningUniversity Hospitals Conneaut Medical Centerca Health SystemStart: 48-59-3306Cwayc BMI ScreeningAdult BMI ScreeningWashington County Tuberculosis HospitalMedica Health SystemStart: 94-86-6425Meaqypvvmr ScreeningDepression ScreeningUniversity Hospitals Conneaut Medical Centerca Health SystemStart: 86-86-8540Pgtnwjm ScreeningTobacco ScreeningWashington County Tuberculosis HospitalMedica Health SystemStart: 99-35-4408Kmbwofx ScreeningTobacco ScreeningWashington County Tuberculosis HospitalMedica Health SystemStart: 09-57-3672Nwqce BMI ScreeningAdult BMI ScreeningProMedica Health SystemStart: 88-46-7975Efqxyoq ScreeningTobacco ScreeningWashington [facility] SystemStart: 98-74-9104Kuoyt BMI ScreeningAdult BMI ScreeningProMedica Health SystemStart: 52-93-7587Tygtevj ScreeningTobacco ScreeningProMedica Health SystemStart: 29-08-9317Tcohspz ScreeningTobacco ScreeningUniversity Hospitals Conneaut Medical Centerca Health SystemStart: 88-03-8514Jgofc BMI ScreeningAdult BMI ScreeningUniversity Hospitals Conneaut Medical Centerca [facility] SystemStart: 42-05-6439Woaetjk ScreeningTobacco ScreeningUniversity Hospitals Conneaut Medical Centerca Health SystemStart: 91-69-3596Ydmjt BMI ScreeningAdult BMI ScreeningUniversity Hospitals Conneaut Medical Centerca [facility] SystemStart: 07-03-2025 End: 19-75-3098HD Chest WO and CT angiogram Coronary arteries W contrast IVCT angiogram chest Imaging Routine Thoracic aortic aneurysm without rupture, unspecified part ([facility]-HCC) Expected: 07/03/2025 (Approximate), Expires: 07/03/2025[employer] Work Phone: Comment on above:Expected: 07/03/2025 (Approximate), Expires: 07/03/2025Start: 20-47-6758Hyzjuxi ScreeningTobacco ScreeningUniversity Hospitals Conneaut Medical Centerca Health SystemStart: 41-98-4744Nwymg BMI ScreeningAdult BMI ScreeningUniversity Hospitals Conneaut Medical Centerca [facility] SystemStart: 57-88-5710Yhsfhwjdwc ScreeningDepression ScreeningUniversity Hospitals Conneaut Medical Centerca Health SystemStart: 60-71-8113Bibs Risk ScreeningFall Risk ScreeningUniversity Hospitals Conneaut Medical Centerca [facility] SystemStart: 26-76-6960Qobdllp ScreeningTobacco ScreeningUniversity Hospitals Conneaut Medical Centerca Health SystemStart: 57-34-7958Oflfn BMI ScreeningAdult BMI ScreeningUniversity Hospitals Conneaut Medical Centerca [facility] SystemStart: 52-32-2663Ylplbyfebe ScreeningDepression ScreeningUniversity Hospitals Conneaut Medical Centerca [facility] SystemStart: 71-64-4812Xahw Risk ScreeningFall Risk ScreeningUniversity Hospitals Conneaut Medical Centerca [facility] SystemStart: 12-10-2025Medicare Annual Wellness VisitMedicare Annual Wellness VisitUniversity Hospitals Conneaut Medical Centerca Health SystemStart: 18-24-5634Gknogqt ScreeningTobacco Screening [facility] SystemStart: 01-14-2025 End: 11-52-5161Gcbgrik encounter jbkxjrdiu32/08/2025 11:00 AM EDT Office Visit [facility] [address] [place] [address] Gio Mathews, DO [address], [facility] [place] [address] [facility] MedicineStart: 90-09-4733Bsxydicjd vaccinationInfluenza Vaccine (#1)[facility]HealthStart: 09-45-9895Alhoqnmgm vaccinationProCarraway Methodist Medical Center Health SystemStart: 76-44-4555Aaosb BMI ScreeningAdult BMI ScreeningProAdena Health Systemca Health SystemStart: 70-65-0673Skkitgoxcs ScreeningDepression ScreeningProAdena Health Systemca Health SystemStart: 62-26-9537Ujdxdby ScreeningTobacco ScreeningProAdena Health Systemca Health SystemStart: 16-12-4640Hhhnx BMI ScreeningAdult BMI ScreeningProAdena Health Systemca Health SystemStart: 61-72-7401Muqhbfv ScreeningTobacco ScreeningProMedina Hospital SystemStart: 09-11-2024 End: 21-23-2653Yvwtbfj encounter /05/2025 1:30 PM EDT Office Visit [facility] Internal Medicine - Family Medicine [address] [place] [address] Gio Mathews, [address], [facility] [place] [address] [facility] Internal Medicine [facility] MedicineStart: 20-04-8329Tpwbhbz Screening Tobacco ScreeningChildren's Hospital for Rehabilitation SystemStart: 08-25-2024 End: 61-70-7439Japugdaug to same day surgery mvryia8508/25/2024 1:00 PM EDT - 08/25/2024 1:30 PM EDT [facility] [address] [place] [address] Chey Infante, DO [address] [place], [place] [id number] FLEXIBLE SIGMOIDOSCOPY [50778 (CPT )][facility] SurgeryComment on above:FLEXIBLE SIGMOIDOSCOPY [44176 (CPT )]Start: 08-25-2024 End: 74-92-8002Mloaefchyo knmxgjalqtcc30/19/2025 1:00 PM EDT Anesthesia Event [facility] Surgery [address] [place] [address] Adal Sagastume, DO [address] [facility], [place] [id number] [facility] SurgeryStart: 08-25-2024 End: 56-72-0926Euprmcbolqknm flx dx w/collj spec br/wa if pfrmdFLEXIBLE SIGMOIDOSCOPY abnormal PET scan 08/25/2024 1:00 PM EDTFREMONT SURGERYStart: 12-94-9817Noxfgxxarw hospital visit by jyjlznevp72/19/2025 1:00 PM EDT Hospital Encounter [facility] Surgery [address] [place] [address] Chey Infante, DO [address] [place] [address] [facility]Start: 08-19-2024 End: 77-74-2258fpfejwqnyx97/13/2025 2:30 PM EDT [facility] [address] [place] [phone] [facility] - Pre AdmitStart: 02-82-0239Unrcc BMI ScreeningAdult BMI ScreeningProAdena Health Systemca Health SystemStart: 53-21-3969Nimboybmze ScreeningDepression ScreeningProMedica Health SystemStart: 24-88-9745Pocivvx ScreeningTobacco ScreeningProAdena Health Systemca [facility] SystemStart: 07-03-2024 End: 58-00-9701Plbwohs encounter /27/2025 9:20 AM EDT [facility] [address] [place] [address] Bette Pierce MD [address], [address] [address] [facility] Jobst Vascular SurgeryStart: 06-17-2024 End: 46-30-3604Zvyickr encounter dmernucdk42/11/2025 1:30 PM EDT Office Visit [facility] Internal Medicine - Family Medicine [address] [place] [address] Gio Mathews, DO [address], [place] [address] [facility] MedicineStart: 06-09-2024 End: 88-57-9568Beikdmn encounter xhgmtlhuu95/03/2025 1:00 PM EST Office Visit [facility] - Family Medicine [address] [place] [address] Gio Mathews, DO [address], [place] [address] [facility] Internal Medicine - Family MedicineStart: 03-10-2024 End: 60-19-0862Dexulyb encounter sbumcnivh08/02/2024 11:30 AM EST Office Visit [facility] - Family Medicine [address] [place] [address] Gio Mathews, DO [address], [place] [address] [facility] Medicine - Family MedicineStart: 01-31-2024 End: 28-51-1079Nvuzbbd encounter yvijkfmkv79/24/2024 2:15 PM EDT Office Visit [facility] Medicine - Family Medicine [address] [place] [address] Gio Mathews, DO [address], [place] [address] [facility] Medicine - Family MedicineStart: 52-21-9695Gnqwebydv vaccinationInfluenza Vaccine (#1)[facility]HealthStart: 70-00-9627Lwwpxyhrb vaccinationInfluenza VaccineProMedina Hospital SystemStart: 15-86-3050Bier Risk ScreeningFall Risk ScreeningProMedina Hospital SystemStart: 10-30-2023 End: 32-80-5261GUB Breast - bilateral screeningMammography screening bilateral with CAD Imaging Routine Encounter for screening mammogram for malignant neoplasm of breast Expected: 10/30/2023, Expires: 10/29/2024[facility] Work Phone: Comment on above:Expected: 10/30/2023, Expires: 10/29/2024Start: 10-30-2023 End: 90-84-1945Ftnxihe encounter gnqoeuxux88/23/2024 1:30 PM EDT [facility] [address] [place] [address] Gio Mathews DO [address], [facility] [place] [place] [address] [facility] MedicineStart: 10-24-2023 End: 82-95-3375Tztszzw encounter uxjcyinsy92/17/2024 8:00 AM EDT [facility] General Surgery [address] [place] [address] Chey Infante DO [address] [place] [address] [facility] General SurgeryStart: 70-32-0414BAdM,Tdap and Td Vaccines (2 - Td or Tdap)DTaP,Tdap and Td Vaccines (2 - Td or Tdap)[facility] SystemStart: 10-19-2023 End: 75-41-9495Pcnuubp encounter wkfsncfif07/12/2024 1:30 PM EDT Office Visit [facility] General Surgery [address], [id number] Darcy Mena, F[employer]ERGLASS QUALITY TECHNICIAN-PODIATRIST ASSISTANT [address] [facility] [place] [address] [facility] General SurgeryStart: 08-29-2023 End: 14-38-9001Mghrema encounter vkageofiu69/22/2024 2:00 PM EDT Office Visit [facility] General Surgery [address], [id number] Chey Infante DO [address] [place], [place] [phone] [facility] Physicians General SurgeryStart: 06-15-2023 End: 73-89-6198jcaswhrwyb17/08/2024 10:00 AM EST Financial Counseling [facility] [employer] Office [address] [place] [address] [place] [employer] Eligibility SpecialistMansfield Hospital OfficeStart: 03-13-2023 End: 22-11-7376Gzjcnzg encounter kccqmhkhy54/05/2023 1:00 PM EST Office Visit [facility] [address] [place], [place] [phone] Mahesh Ramos MD, PhD [address] [place], [place] [address] [facility] OncologyStart: 03-08-2023 End: 63-30-9057BAK+CT Guidance for limited for localization of tumor of Unspecified body region-- W 18F-FDG IV andW contrast IVPET SUBSEQ/DIAG CT NCK/CHST/ABD/PEL W/ Imaging Routine Anal squamous cell carcinoma (HCC) Expected: 03/08/2023 (Approximate), Expires: 12/08/2023[employer] Work Phone: Comment on above:Expected: 03/08/2023 (Approximate), Expires: 12/08/2023Start: 03-07-2023 End: 17-63-8004Ojlxmoi encounter procedureMetroHealth RadiologyStart: 02-06-2023 End: 96-78-5451Hxpogjp encounter ojuzbqoze30/31/2023 10:00 AM EDT Appointment [facility] [address] [place] [address] Rosemarie Smith MD [address] [place] [address] [facility] MedicalStart: 01-24-2023 End: 36-31-2616Rphjlsx encounter procedureMetroPremier Health [facility] Oncology MedicalStart: 01-23-2023 End: 80-95-3918Tdqxyir encounter riezujhat18/17/2023 9:30 AM EDT Appointment [facility] [address] [place] [address] [place] APRN-BRIEN [address] [place] [address] [facility] Oncology MedicalStart: 01-16-2023 End: 18-84-5517Tegiyoe encounter awddwyxjh12/10/2023 9:30 AM EDT Appointment [facility] On[facility] Medical [address] [place] [address] Rosemarie Smith MD [address] [place] [address] [facility] Oncology MedicalStart: 01-12-2023 End: 15-78-9406Wddibap encounter ntclugmpl71/06/2023 11:00 AM EDT Appointment [facility] On[facility] Medical [address] [place] [address] [place] [address] [facility] Oncology MedicalStart: 01-09-2023 End: 56-42-9301Aafifel encounter rdkipdaer88/03/2023 9:30 AM EDT Appointment [facility] [address] [place] [address] [facility] CTStart: 17-62-7497Hmspqdysq vaccinationInfluenza Vaccine (#1)[facility]HealthStart: 12-29-2022 End: 12-41-1826Nzuwaqzysogt consultation with npuwnwk3012/29/2022 8:00 AM EDT Telemedicine [facility] [address] [place] [address] Dana Ordonez, F[employer] QUALITY TECHNICIAN-PODIATRIST ASSISTANT [address] [facility] [place] [address] [facility] Palliative CareStart: 12-20-2022 End: 28-43-1186Jytqvug encounter pvytujqva01/13/2023 9:00 AM EDT Appointment [facility] [address] [place] [address] Alta Ramirez, LIN [address] [place] [address] [facility] MedicalStart: 49-22-3621FZWGJ-19 Vaccine ( season)COVID-19 Vaccine ( season)[facility] SystemStart: 73-15-7654Kwtvsbyoc vaccinationInfluenza Vaccine (#1)[facility] HospitalStart: 12-07-2022 End: 81-85-2801Bdhsffr encounter procedureOhioHealth Radiation OncologyStart: 12-01-2022 End: 14-47-1020Spgnxvswdlcs consultation with klzmxkj2912/01/2022 9:00 AM EDT Telemedicine [facility] [address] [place] [address] Dana Ordonez, F[employer] QUALITY TECHNICIAN-PODIATRIST ASSISTANT [address] [place] [address] [facility] Palliative CareStart: 11-29-2022 End: 38-35-6628jmipynbuhfJsywwBhiszn Radiation OncologyStart: 11-28-2022 End: 61-69-3756rzoremroazNjitnBggzra Radiation OncologyStart: 11-27-2022 End: 52-49-8619zpsyrmvmceKiijzGzpuep Radiation OncologyStart: 11-24-2022 End: 31-31-6720hoceuizvyhTtgbdCfhrbl Radiation OncologyStart: 11-23-2022 End: 80-99-1823Dvrbqfn encounter iwpsgdsla54/17/2023 2:30 PM EDT Office [facility] [address] [place] [address] Dana Ordonez APRN-PODIATRIST ASSISTANT [address] [place] [address] [facility] Oncology Palliative CareStart: 11-23-2022 End: 78-00-7278zhwlwtsvauNaxguQvhaqb Radiation OncologyStart: 11-22-2022 End: 07-26-4459xtpeiumiowTyqebGdcbim Radiation OncologyStart: 11-21-2022 End: 58-07-2814lcqqqneyqfGmlnkEnjynf Radiation OncologyStart: 11-20-2022 End: 80-62-1918mtlgujhkfuQlereObskhg Radiation OncologyStart: 11-17-2022 End: 73-71-8859Jmfcpjf encounter arldqamzs28/11/2023 3:00 PM EDT Appointment [facility] [address] [place] [address] IjgmhFzjywp Oncology MedicalStart: 11-17-2022 End: 77-98-4526blzbsyxbhjZfkniGkwjyh Radiation OncologyStart: 11-16-2022 End: 72-29-2635nhdazsscusAtjbhHzjqqh Radiation OncologyStart: 11-16-2022 End: 56-56-5104Fxroksd encounter /10/2023 1:00 PM EDT Office Visit [facility] [address] [place] [address] Dana Ordonez, F[employer] QUALITY TECHNICIAN-PODIATRIST ASSISTANT [address] [place] [address] [facility] Palliative CareStart: 11-15-2022 End: 97-53-6871yyijlenmadXtanhVumize Radiation OncologyStart: 11-14-2022 End: 26-47-1407lqjsnlimhhTicguZdbqui Radiation OncologyStart: 11-13-2022 End: 67-79-9438pkvaatntlfNrdrbPihudc Radiation OncologyStart: 11-13-2022 End: 41-91-5773Mbwnsqs encounter procedureMetroPremier Health [facility] Oncology MedicalStart: 11-10-2022 End: 09-00-0636kedkuvwcskLmcmnKrwfjx Radiation OncologyStart: 11-09-2022 End: 80-08-3185jlxqsvebjpPyhvnNmefjn Radiation OncologyStart: 11-09-2022 End: 09-94-1195Fcjzbty encounter vqvdeaagg42/03/2023 1:30 PM EDT Office Visit [facility] [address] [place] [address] Dana Ordonez APRN-ESTIVEN [address] [place] [address] [facility] Palliative CareStart: 11-08-2022 End: 01-97-0516iiopahewblHraigEzzfca Radiation OncologyStart: 11-07-2022 End: 77-95-7508uieulmcyvyZanowBjonbk Radiation OncologyStart: 11-06-2022 End: 99-88-8359gckchhojdhHjuhcKvhnya Radiation OncologyStart: 11-06-2022 End: 56-40-3693PGB W Auto Differential panel - BloodCOMPLETE BLOOD COUNT W/DIFF Lab Routine Anal cancer (HCC) Expected: 11/06/2022, Expires: 12/04/2022[employer] Work Phone: Comment on above:Expected: 11/06/2022, Expires: 12/04/2022Start: 11-03-2022 End: 70-03-2591jatrvumvymGrkjhUxakne Radiation OncologyStart: 11-02-2022 End: 37-17-7087hxwapozjnbNgrqyZulsdk Radiation OncologyStart: 11-02-2022 Screening for malignant neoplasm of breastMetroHealthStart: 2022 End: 20-98-2372fqqikkfglcNwlgrAfqycp Radiation OncologyStart: 10-31-2022 End: 32-93-0627iyogknxypnZugxfWsvhys Radiation OncologyStart: 10-30-2022 End: 62-56-1578kelmbpxemvIlmafLohtet Radiation OncologyStart: 10-27-2022 End: 99-32-5440ddcqcnepktXerllZayasy Radiation OncologyStart: 10-26-2022 End: 94-07-3900dfzfokotbuYipguHthgla Radiation OncologyStart: 10-25-2022 End: 15-65-5339Svftkit encounter qpfgdsweh19/19/2023 2:00 PM EDT Office Visit [facility] [address] [place] [address] Dana Ordonez APRN-ESTIVEN [address] [place] [address] [facility] Palliative CareStart: 10-25-2022 End: 96-26-9200axwcmzuauyUmwdkYuaxku Radiation OncologyStart: 10-24-2022 End: 77-68-2313cgzzqykpruVgfqsDoglpe Radiation OncologyStart: 10-23-2022 End: 77-08-7056jsbkwekfacPdlklOxitwk Radiation OncologyStart: 10-20-2022 End: 59-79-8776zykbbgseilDcjjgYhtufr Radiation OncologyStart: 10-19-2022 End: 61-96-0848torqelvgcdBmytdJwqbqy Radiation OncologyStart: 10-19-2022 End: 41-53-3533Gzcaqvp encounter procedureMetroPremier Health [facility] Oncology Palliative Care Start: 10-18-2022 End: 21-72-6704miqabcinngTynarXdpvjt Radiation OncologyStart: 10-17-2022 End: 62-36-3367gfcjvyvnbtAcotzPqeqcl Radiation OncologyStart: 10-16-2022 End: 28-30-2233qxjhsoipec35/10/2023 1:20 PM EDT Assessment/Treatment Report [facility] [address] [place] [address] Mahesh Ramos MD, PhD [address] [place] [address] [facility] OncologyStart: 10-16-2022 End: 65-98-6873Uhtshxg encounter procedureMetBluffton Hospital Oncology MedicalStart: 10-06-2022 End: 16-02-0262Yfqydwa encounter ybmjaahwt56/30/2023 9:00 AM EDT Office Visit [facility] [address] [place] [address] Mahesh Ramos MD, PhD [address] [place] [address] [facility] OncologyStart: 10-04-2022 End: 40-26-2140Whpmiio encounter eusdiskhj95/28/2023 8:30 AM EDT Appointment [facility] [address] [place] [address] Rosemarie Smith MD [address] [place] [address] [facility] MedicalStart: 10-03-2022 End: 46-14-1755Xbnybcn encounter procedureMetBluffton Hospital Radiation OncologyStart: 10-03-2022 End: 65-30-1390Tnrdckg evaluation of patient and pltwuc1210/03/2022 8:30 AM EDT Nurse Visit [facility] [address] [place] [address] EnolyKeedzb Radiation OncologyStart: 08-25-2022 End: 33-55-4982Tjklxeh encounter aaadhntmq33/19/2023 Office Visit General Surgery Yoselin Padron MD [address] [place] [address] [facility] GeneralStart: 07-25-2022 End: 58-22-2564Kapwbhy encounter whoggnkgu48/18/2023 Appointment Oncology Medical Rosemarie Smith MD [address] [place] [address] [facility] Oncology MedicalStart: 32-47-0916Burbowlpg vaccinationInfluenza Vaccine (#1)[facility]HealthStart: 54-15-5167JRGJUUL, Provider: Gracy Hayden, Status: Pen, Time: 9:30 AM [facility], Provider: Gracy Hayden, Status: Pen, Time: 9:30 AM XH-Scucwzx-Ofnpgpr 2100 Work Phone: Start: 08-19-2021 End: 47-21-7151Ebycemw encounter ifwpidlnt88/13/2022 Office Visit General Surgery Times, Yoselin Ojeda MD [address] [place] [address] [facility] General Surgery Start: 07-19-2021 End: 56-04-0218Yojastadl to same day surgery ebzrad6307/19/2021 Surgery General Surgery Times, Yoselin Ojeda MD [address] [place] [address] EUA, anal mass biopsiesMetroPremier Health [facility] Main ORComment on above:EUA, anal mass biopsiesStart: 07-19-2021 End: 61-52-4907AOE, RECTALEUA, RECTAL Routine scheduled Perianal mass 07/19/2021 11:27 AM EDTPERIOPERATIVE SERVICESStart: 64-30-5805Ywcpdwcqba hospital visit by oxcdjrgpa77/12/2022 Hospital Encounter General Surgery Vito, Yoselin Ojeda MD [address] [place] [address] [facility] Main ORStart: 07-19-2021 End: 77-45-3182EMZ, RECTALEUA, RECTAL Routine scheduled Perianal mass 07/19/2021 10:09 AM EDTPERIOPERATIVE SERVICESStart: 07-18-2021 End: 29-09-0892Pojyuuy evaluation of patient and pncfag8107/18/2021 Nurse Visit Presurgical EvaluationMetroPremier Health [facility] Pre Surgical EvaluationStart: 07-15-2021 End: 58-45-4719Rafypcf encounter ekrbjacrq15/08/2022 Office Visit General Surgery Times, Yoselin Ojeda MD [address] [place] [address] [facility] Surgery GeneralStart: 06-45-3408TMEUZ-19 Vaccine (3 - Booster for Pfizer series)COVID-19 Vaccine (3 - Booster for Pfizer series)[facility]HealthStart: 45-63-2070Jidsfbgeb vaccination Influenza Vaccine (#1)[facility]HealthStart: 12-04-4214SSGSZ-19 Vaccine (2 - Pfizer series)COVID-19 Vaccine (2 - Pfizer series)[facility]HealthStart: 14-00-1220BUJBB-19 Vaccine (3 - Booster for Pfizer series)COVID-19 Vaccine (3 - Booster for Pfizer series)[facility]HealthStart: 59-08-7218YJPAG-19 Vaccine (3 - Pfizer risk series) COVID-19 Vaccine (3 - Pfizer risk series)[facility]HealthStart: 29-42-9362UDZQZ-19 Vaccine (2 - Pfizer risk series)COVID-19 Vaccine (2 - Pfizer risk series) [facility]HealthStart: 79-25-1465XVRWH-19 Vaccine (2 - Pfizer series)COVID-19 Vaccine (2 - Pfizer series)[facility]HealthStart: 76-70-4100Meaqfxkuy B (HBV) Vaccine (optional start 60+ years)Hepatitis B (HBV) Vaccine (optional start 60+ years) [facility]HealthStart: 47-26-5522UHD vaccine (adult) (1 - Risk 60-74 years 1-dose series)RSV vaccine (adult) (1 - Risk 60-74 years 1-dose series)[facility]HealthStart: 87-55-3722HDG vaccine (optional 60+ years)RSV vaccine (optional 60+ years) [facility]HealthStart: 28-31-8215Bbsikuclc for malignant neoplasm of cervixPap Smear [facility] SystemStart: 96-71-1916JHmR,Tdap and Td Vaccines (1 - Tdap) DTaP,Tdap and Td Vaccines (1 - Tdap)[facility] SystemStart: 2008 Administration of varicella zoster vaccineZoster (Shingles) Vaccine (1 of 2) [facility]MWood[facility] SystemStart: 78-44-3638Fydttiimxbc of occult blood in single stool specimenFITMetroHealthStart: 16-64-8839Xeyaexlab for malignant neoplasm of breastMammographyMetroHealthStart: 98-56-2403Otfscqzpy for malignant neoplasm of colonCRC ScreeningMetroHealthStart: 39-09-3888Pvqethhda-zoster vaccine (product) Shingles (RZV) Vaccine (1 of 2)[facility]HealthStart: 03-54-7996Vseondmcjrv [Mass/volume] in Serum or PlasmaCholesterolMetroHealthStart: 32-97-0308Plkttndvj for malignant neoplasm of colonMetroHealthStart: 54-62-3665Dpqvnekpt for malignant neoplasm of breastMammographyMetroHealthStart: 37-05-9566Tulegwirp for malignant neoplasm of cervixPap SmearMetroHealthStart: 63-03-8652Kqyfrwwsvuxflm of varicella zoster vaccineZoster (Shingles) Vaccine (1 of 2)ProMWoodwinds Health Campus SystemStart: 50-85-5616Orrorolrh A (HAV) Vaccine (optional start 19+ years) Hepatitis A (HAV) Vaccine (optional start 19+ years)[facility]HealthStart: 1977 Pneumococcal vaccinationPneumococcal Vaccine(s) (50+ yrs) (1 of 2 - PCV) [facility]HealthStart: 63-52-4836Vkqjqwiy (RZV) Vaccine (1 of 2)Shingles (RZV) Vaccine (1 of 2)[facility]HealthStart: 14-07-4546Ofgts BMI Follow Up PlanAdult BMI Follow Up PlanProMedina Hospital SystemStart: 69-48-9209Fsivgxfzt C screening Hepatitis C AntibodyMetroHealthStart: 40-32-3287Rhvsgqx + diphtheria + acellular pertussis vaccine (product)Tdap BoosterMetroHealthStart: 87-11-3820NSX screeningHIV TestMetroHealthStart: 38-28-4229Pqirtkmuwxea vaccinationMetroHealth Start: 37-81-9672GROFG-19 Vaccine ( formulation)COVID-19 Vaccine (2023 formulation)MetroHealthStart: 07-26-1959Medicare Annual Wellness Visit Medicare Annual Wellness VisitAnson Community Hospitaltart: 75-85-7760Lrddcgfgu for malignant neoplasm of colonMetroHealth End: 89-68-5884Yogay of magnesiumMAGNESIUM Lab STAT Anal squamous cell carcinoma (HCC) 24 Occurrences starting 10/03/2022 until 10/04/2023, 1 completed MetroHealthComment on above:24 Occurrences starting 10/03/2022 until 10/04/2023, 1 completedAssay of magnesiumMAGNESIUM Lab Routine Daily until discontinued starting 2022, 2 completedMetroHealthComment on above:Daily until discontinued starting 2022, 2 completed End: 30-50-4392Iryeaola identified in Urine by CultureUrine culture (clean catch) Microbiology Routine Dysuria Right lower quadrant abdominal pain 1 Occur rences starting 08/27/2024 until 08/27/2025[employer] Work Phone: Comment on above:1 Occurrences starting 08/27/2024 until 08/27/2025 End: 85-80-3566Mcoxq metabolic 2000 panel - Serum or PlasmaBASIC METABOLIC PANEL Lab STAT Anal squamous cell carcinoma (HCC) 24 Occurrences starting 10/03/2022 until 10/04/2023, 1 completedTHE [employer] Work Phone: Comment on above:24 Occurrences starting 10/03/2022 until 10/04/2023, 1 completed End: 90-28-1020Sgduj metabolic 2000 panel - Serum or PlasmaBASIC METABOLIC PANEL Lab Routine Morning Blood Draw for 1 Occurrences starting 11/03/2022 until [facility] [employer] Work Phone: Comment on above:Morning Blood Draw for 1 Occurrences starting 11/03/2022 until 11/03/2022IOPSY, RECTALBIOPSY, RECTAL Routine scheduled Perianal massPERIOPERATIVE SERVICES End: 96-55-1806IQF W Auto Differential panel - BloodCOMPLETE BLOOD COUNT W/DIFF Lab STAT Anal squamous cell carcinoma (HCC) 24 Occurrences starting 10/03/2022 until 10/04/2023, 1 completedMetroHealthComment on above:24 Occurrences starting 10/03/2022 until 10/04/2023, 1 completedCBC W Auto Differential panel - Blood COMPLETE BLOOD COUNT W/DIFF Lab Routine Daily until discontinued starting 2022, 2 completedTHE [employer] Work Phone: Comment on above:Daily until discontinued starting 2022, 2 completed End: 10-14-7550NrocidxgplqJxugmgjnqyh GI Routine Recurrent anal squamous cell carcinoma ([facility]) 1 Occurrences starting 08/29/2023 until 08/28/2024[employer] Work Phone: Comment on above:1 Occurrences starting 08/29/2023 until 08/28/2024omprehensive metabolic 1999 panel - Serum or PlasmaTrihealth [facility] Work Phone: Comprehensive metabolic 1999 panel - Serum or Plasma [facility] HospitalComprehensive metabolic 2000 panel - Serum or PlasmaWayne HospitalComputed tomography for radiotherapy planningTrihealth Bethesda [facility] Ctr Work Phone: Computed tomography for radiotherapy planningWayne Hospital End: 60-19-3746Tvsutmpgrs includes GFR, serumCreatinine includes GFR, serum Lab Routine Thoracic aortic aneurysm without rupture, unspecified part ([facility]) 1 Occurrences starting 07/03/2024 until 07/03/2025Pro[place] SystemComment on above:1 Occurrences starting 07/03/2024 until 07/03/2025Drug screen, single PAIN MANAGEMENT PANEL Lab Routine Palliative care encounter Palliative care by specialist Cancer related pain Ordered: 10/19/2022[employer] Work Phone: Comment on above:Ordered: 3Drug screen, singlePAIN MANAGEMENT PANEL Lab Routine Anal cancer (HCC) Use of opiates for therapeutic purposes 11/23/2022 2:09 PM EDTTHE [facility] SYSTEM Work Phone: End: 77-28-1124Yectqfaj sigmoidoscopyFlexible Sigmoidoscopy GI Routine Abnormal gastrointestinal PET scan History of carcinoma in situ of anal canal Abnormal findings on diagnostic imaging of other parts of digestive tract 1 Occurrences starting 08/13/2024 until 08/11/2025[employer] Work Phone: Comment on above:1 Occurrences starting 08/13/2024 until 08/11/2025 End: 76-41-1457Cdqnuuy function panelHEPATIC FUNCTION PANEL Lab STAT Anal squamous cell carcinoma (HCC) 24 Occurrences starting 10/03/2022 until 10/04/2023, 1 completedMetroHealthComment on above:24 Occurrences starting 10/03/2022 until 10/04/2023, 1 completedMR Pelvis WO and W contrast [facility] Work Phone: MR Pelvis WO and W contrast [facility] CenterPatient EducationPET-CT ScanTrihealth Bethesda [facility] Hospital Ctr Work Phone: Surgical pathology procedureSPECIMEN FOR SURGICAL PATH Anatomic Pathology Routine Perianal mass Release Upon Ordering for 1 Occu rrences starting 07/19/2021[facility] [employer] Work Phone: Comment on above:Release Upon Ordering for 1 Occurrences starting 07/19/2021[facility] Immunizations Immunization DateImmunizationNotesCare ZphsqykwSsaqzozu78-22-3221Jdsljtan trivalent influenza vaccine, adjuvanted, preservative freeDsen Rickhegg health center avera DO Work Phone: [facility] [place] Negexo42-30-7136Dvxyyduzrlxd, In Clinic,; Translations: [Drug or medicament (substance)]Gioella Cabrerahegg health center avera DO Work Phone: [facility] CenterBus[facility] HospitalXwfaii45-43-7362blkfyzoah virus vaccine, unspecified formulationDennis Furng DO Work Phone: [facility] CenterVhuxbt83-18-6025Nsaghn-ZahLImmy COVID-19 Vacc 30 MCG/0.3ML Intramuscular SuspensionReferring Provider Unknown NphevMheuus97-82-6915Tpjkid-EovBDiot COVID-19 Vacc 30 MCG/0.3ML Intramuscular SuspensionReferring Provider LhsewofLC-Nbkwzhy-Qgewyey 2100 Work Phone: [phone]jhvy and diphtheria toxoids, adsorbed, preservative free, for adult use (5 Lf of tetanus toxoid and 2 Lf of diphtheria toxoid)Chey Marroquincorey DO Work Phone: [facility] SystemBusy [facility] System Payers DatePayer CategoryPayerPolicy [id number] Care Other (unspecified) [id number] 2024Medicare [id number] [id number] [id number] [id number] 2022Unknown [id number] 2.16.840.1.858378.3.57[id number] 2.16.840.1.868255.3.57[id number] 2.16.840.1.381454.3.57[id number] 2.16.840.1.421458.3.57[id number] 2.16.840.1.140887.3.57[id number] 2.16.840.1.292103.3.57[id number] 2.16.840.1.013838.3.57[id number] 2.0.1.552079.3.57[id number] 2.0.1.182383.3.57[id number] 2.0.1.332648.3.57[id number] 2.0.1.191450.3.57[id number] 2.0.1.255182.3.57[id number] 2..1.519110.3.57[id number] 2..1.586121.3.579.2.1286Private Health [id number]-[id number]-[id number]/HFA/FAP [id number] [id number]-[id number]/HFA/FAP [id number] 2..1.726384.3.579.2.531 Social History DateTypeDetailFacilityTobacco smoking status NHISUnknown if ever smokedTrihealth Bethesda Butler Hospital CtrStart: 68-67-8021Cqm Assigned At BirthFeUniversity Hospitals Beachwood Medical CenterTobacco smoking status NHISTobacco smoking consumption unknownMetroHealthStart: 39-70-3855Tcf Assigned At BirthNot on fileMetroHealth Start: 07-15-2021 End: 75-26-0456Ueepeqd smoking status NHISSmokes tobacco dailyMetroHealthStart: 67-98-9540Ywqhbrj of tobacco useCigarette SmokerMetroHealthStart: 10-12-2022 End: 01-61-5241Wty [facility]1993 End: 85-55-1837Gqydibv smoking status NHISSmoker (finding)Wayne HospitalTobao smoking statusNo Smoking Status EnteredKettering Health Daytontart: 08-25-2022 End: 61-93-7768Chgqgufkav smoked current (pack per day) - Reported0.5[facility] Work Phone: Start: 08-25-2022 End: 82-43-6712Wpsgrtl use and exposureSmokeless tobacco non-userMetroHealth Start: 08-29-2022 End: 76-92-9168Mogjjwy intakeCurrent drinker of alcohol (finding)[facility] Within the last year, have you been afraid of your partner or ex-partner?No [facility] Work Phone: How often do you get together with friends or relatives?Patient declinedMetroHealthDo you belong to any clubs or organizations such as buddhism groups, unions, fraternal or athletic groups, or school groups? YesMetroHealthAre you now , , , , never or living with a partner?Living with partnerMetroHealthHow hard is it for you to pay for the very basics like food, housing, medical care, and heatingVery hard MetroHealthDo you feel stress - tense, restless, nervous, or anxious, or unable to sleep at night because yourmind is troubled all the time - these days [OSQ] Rather muchMetroHealth(I/We) worried whether (my/our) food would run out before (I/we) got money to buy more.Often trueMetroHealthThe food that (I/we) bought just didn't last, and (I/we) didn't have money to get more.Sometimes true MetroHealthStart: 53-79-1747Naptljcbi55NhetsXnrdakAamuh: 08-09-2023 End: 88-94-3033Oszjbgw smoking status NHISEx-smokerOhioHealth Nelsonville Health CenterHow often to you have a drink containing alcohol?2-3 time sa weekOhioHealth Nelsonville Health CenterHow many standard drinks containing alcohol do you have on a typical day?3 or 4OhioHealth [facility] Health CenterHow often do you have 6 or more drinks on 1 occasion?NeverAnson Community Hospitaltart: 74-04-2256Jtxmpxo Comment occassionalTogus VA Medical Center SystemStart: 11-10-2014 End: 78-82-2088UdoTyzutu (finding)[facility] Hospitaltart: 12-07-2022 Details of drug misuse behaviorMisused drugs in past (finding)[facility]Prem[facility] Goals DatePatient GoalDesired Activity/StatePersonal health goal Functional Status JehcDuqyjufqujRelmueShifcbtx48-58-7008Kbnblpidrlo anxiety disorder 7 item (KLEBER-7)[facility] Health CenterFapeor79-46-1649Jfhfqfuzaow anxiety disorder 7 item (KLEBER-7)[facility] Clinical Notes 07-06-2021 to 01-14-2025 Note Date & JoygFcfiTpiugimw75-54-9606 History of Present illness Narrative* Gio Mathews, DO - 01/14/2025 11:00 AM EDT Subjective Patient ID: Amber Maldonado is a 64 y.o. female. Aleah presents today for an anxiety recheck. She tried to stop all of her anxiety medications and realizes that she needs them. She had a real bad week with anxiety. She realizes that they were actually helping. She is okay using hydroxyzine instead of lorazepam. Hydroxyzine does help her sleep. Anxiety does impair her quality of life. Makes it more difficult to focus on ADLs and IADLs. She has not had any recurrence of her cancer. Her stomach is doing well on famotidine. The following portions of the patient's history were reviewed and updated as appropriate: allergies, current medications, past family history, past medical history, past social history, past surgicalhistory, problem list, and medication reconciliation was completed including current medication andpost discharge medication. Review of Systems Constitutional: Negative. Gastrointestinal: Negative. Psychiatric/Behavioral: Positive for dysphoric mood and sleep disturbance. The patient is nervous/anxious. Objective Physical Exam Vitals reviewed. Constitutional: General: She is not in acute distress. Appearance: She is not ill-appearing. Cardiovascular: Rate and Rhythm: Normal rate and regular rhythm. Heart sounds: Normal heart sounds. No murmur heard. Pulmonary: Effort: Pulmonary effort is normal. No respiratory distress. Breath sounds: Normal breath sounds. No wheezing, rhonchi or rales. Musculoskeletal: Cervical back: Neck supple. Neurological: General: No focal deficit present. Mental [...] normal. Assessment/Plan Aleah was seen today for 4 month check. Diagnoses and all orders for this visit: Anxiety - hydrOXYzine (VISTARIL) 25 mg capsule; Take 1 capsule (25 mg total) by mouth 3 (three) times a dayas needed for itching. May use hydroxyzine 25 mg every 8 hours as needed for anxiety or itching. Restart BuSpar 10 mg twice a day. Depression, unspecified depression type Restart sertraline Seizure ([facility]) She stopped Depakote on her own. There has been no recent seizures Gastroesophageal reflux disease, unspecified whether esophagitis present Stable. Continue famotidine Other orders - busPIRone (BUSPAR) 10 mg tablet; Take 1 tablet (10 mg total) by mouth 3 (three) times a day. documented in this encounterWashington County Tuberculosis HospitalCatalyst IT Services08-22-2025 Telephone encounter Note* Telephone Encounter - Ai Johnson - 11/28/2024 9:29 AM EDT Pt returned my call. Stated that she has been following w/oncologist closer to home. There are records in [place]. Reinforced with pt to continue to follow and she is aware. She was encouraged to call us if there is a need. Will close referral at this time. Lashell Johnson RN [id number] Miscellaneous Notes* Telephone Encounter - Ai Johnson - 11/28/2024 9:29 AM EDT Pt returned my call. Stated that she has been following w/oncologist closer to home. There are records in [facility]. Reinforced with pt to continue to follow and she is aware. She was encouraged to call us if there is a need. Will close referral at this time. Lashell Johnson RN documented in this [id number] NoteLvm w/cb number to schedule med onc appt. Former Brell pt, last seen 10/31/22. New referral from outside provider (Dr Mathews). Had negative rectal bx 08/25/24. If no new issues/concerns, can schedule w/Benton or Yuriy. Lashell Johnson RNThe [facility]08-21-[facility] Telephone encounter Note* Telephone Encounter - Ai Johnson - 11/27/2024 3:26 PM EDT Lvm w/cb number to schedule med onc appt. Former Brell pt, last seen 10/31/22. New referral from outside provider (Dr Mathews). Had negative rectal bx 08/25/24. If no new issues/concerns, can schedule w/Benton or Yuriy. Lashell Johnson RN [id number] Miscellaneous Notes* Telephone Encounter - Ai Johnson - 11/27/2024 3:26 PM EDT Lvm w/cb number to schedule med onc appt. Former Luis pt, last seen 10/31/22. New referral from outside provider (Dr Mathews). Had negative rectal bx 08/25/24. If no new issues/concerns, can schedule w/Chetan or Yuriy. Lashell Johnson RN documented in this [id number] History of Present illness Narrative* Gio Mathews, DO - 09/11/2024 1:30 PM EDT Subjective Patient ID: Amber Maldonado is a 63 y.o. female. Aleah presents today for a controlled substance visit. She is using lorazepam with benefit. Lorazepam helps with taking away her anxiety. She has chest heaviness. Also when she gets anxious she can not get things done but it helps relaxer to the point where she is not so high strong and is able to focus on tasks to get them done. She does get occasionally dizzy but is not sure if that is due to the medication or something else. She had to have a sigmoidoscopy due to an abnormal PET scan but the biopsies came back negative. We did cut back on her sertraline and she feels that it is working still. It may not be quite as good as it was but she was okay with the current dose. Her underlying cancer diagnosis is contributingto these problems. Her GERD is controlled on current dose. Her UTI symptoms have resolved with the antibiotic. The following portions of the patient's history were reviewed and updated as appropriate: allergies, current medications, past family history, past medical history, past social history, past surgicalhistory, problem list, and medication reconciliation was completed including current medication andpost discharge medication. Review of Systems Constitutional: Negative. HENT: Negative. Respiratory: Negative. Cardiovascular: Negative. Gastrointestinal: Negative. Endocrine: Negative. Genitourinary: Negative. Psychiatric/Behavioral: Positive for dysphoric mood. The patient is nervous/anxious. Objective Physical Exam Vitals reviewed. Exam conducted with a custom bike builder present (Michael Mak MS 3). Constitutional: General: She is not in acute distress. Appearance: Normal appearance. She is not ill-appearing. HENT: Head: Normocephalic. Cardiovascular: Rate and Rhythm: Normal rate and regular rhythm. Heart sounds: Normal heart sounds. No murmur heard. Abdominal: General: Abdomen is flat. Bowel sounds are normal. There is no distension. Palpations: Abdomen is soft. There is no mass. Tenderness: There is no abdominal tenderness. Hernia: No hernia is present. Musculoskeletal: Cervical back: Neck supple. Neurological: Mental Status: She is alert. Psychiatric: Attention and Perception: Attention normal. Mood and Affect: Mood and affect normal. Speech: Speech normal. Behavior: Behavior normal. Behavior is cooperative. Thought Content: Thought content normal. Cognition and Memory: Cognition normal. Judgment: Judgment normal. Assessment/Plan Aleah was seen today for 3 month f/u. Diagnoses and all orders for this visit: Anxiety - Drug screen panel, emergency; Future - Drug screen panel, emergency She is using lorazepam with benefit. It helps improve her quality of life and allows her to do ADLs. We will have her sign a controlled substance agreement and we will check a urine sample for presence of medication and drugs of abuse. Medication management - Drug screen panel, emergency; Future - Drug screen panel, emergency Check urine for presence of medication and drugs of abuse. Depression, unspecified depression type Stable on lower dose of sertraline. Continue current regimen. Gastroesophageal reflux disease, unspecified whether esophagitis present Stable on famotidine 20 mg twice a day as needed. documented in this encounterOhioHealth Nelsonville Health Center06-02-2025 Miscellaneous Notes* Telephone Encounter - Radha Demarco CMA - 09/08/2024 12:16 PM EDT ----- Message from Chey Infante DO sent at 09/08/2024 7:07 AM EDT ----- Please let patient know that there was acute and chronic inflammation and reactive changes consistent with radiation therapy effect. No cancer was seen. Thanks, Dr. Pappas she can follow up for repeat colonoscopy in 3 years. ----- Message ----- From: Lab, Background User Sent: 09/04/2024 1:34 PM EDT To: Chey Infante DO * Telephone Encounter - Radha Demarco CMA - 09/08/2024 12:16 PM EDT Spoke with patient regarding pathology results. Patient verbally understood with no further questions. Recall put in chart. documented in this encounterOhioHealth Nelsonville Health Center06-02-2025 Telephone encounter Note* Telephone Encounter - Radha Demarco CMA - 09/08/2024 12:16 PM EDT ----- Message from Chey Infante DO sent at 09/08/2024 7:07 AM EDT ----- Please let patient know that there was acute and chronic inflammation and reactive changes consistent with radiation therapy effect. No cancer was seen. Thanks, Dr. Pappas she can follow up for repeat colonoscopy in 3 years. ----- Message ----- From: Lab, Background User Sent: 09/04/2024 1:34 PM EDT To: Chey Infante DO [facility]06-02-2025 Telephone encounter Note* Telephone Encounter - Radha Demarco CMA - 09/08/2024 12:16 PM EDT Spoke with patient regarding pathology results. Patient verbally understood with no further questions. Recall put in chart. [facility]05-21-2025 History of Present illness Narrative* Gio Mathews DO - 08/27/2024 9:30 AM EDT Aleah presents today for a urinalysis to check for a UTI. She has been having right lower quadrant pain since her sigmoidoscopy. She is having chills, frequency and urgency. She recently had a courseof Macrobid. documented in this encounterOhioHealth Nelsonville Health Center05-13-2025 Miscellaneous Notes* Perioperative Nursing Note - Elizabeth Vallejo RN - 08/19/2024 2:30 PM EDT Preoperative Education Checklist- General Surgery date: 08/25/24 Surgery time: 1300 Arrival time: 1100 1. Bring a photo ID and your insurance card with you the day of surgery. You will check in at the main lobby of the [facility]- registration desk is straight ahead as soon as you walk in. Tell them you are here for surgery. 2. If you have a Living Will/Durable Power of Feed Adviser for Health Care that is not on file here, please bring a copy the day of surgery. 3. Please shower/bathe the night before surgery with the provided soap or wipes. Do not shower the morning of surgery- you will do use wipes when you arrive here at the hospital before getting into your surgical gown. Do not shave the area of your procedure for 2 days prior to your surgery. 4. NO powder, lotion, perfume/cologne, aftershave, make-up, deodorant, or hair products after you have bathed. 5. NO nail tongan/acrylic on at least one finger. If you are having a hand, wrist or foot surgery then all nail tongan and artificial/acrylic nails must be removed from that hand or foot. 6. Avoid ALL Aspirin and non-steroidal anti-inflammatory drugs and certain vitamins (Ibuprofen, Advil, Aleve, Excedrin, Meloxicam, Celebrex, fish/krill oil, etc.) for 7 days prior to surgery as instructed by your surgeon and/or your prescribing doctor. Tylenol IS ALLOWED. If you are on Ticlid, Xarelto, Eliquis, Pradaxa, Plavix or Coumadin, please check with your prescribing doctor for instructions for when to stop them. 7. If you use an inhaler, continue to use it routinely. 8. Nothing to eat or drink (not even water, gum, mints, or hard candy!) AFTER midnight prior to your surgery. 9. Take only medications that you are instructed to on the morning of surgery with a TINY SIP OF WATER. 10. Choose a responsible adult that will be able to drive you home when you are discharged from your hospital stay for your surgery and can stay with you in your home for 24 hours after your procedure. You must NOT drive any vehicle or operate any machinery for 24 hours after surgery. 11. When you dress for your appointment, please wear loose fitting clothing that is appropriate to accommodate your surgical area procedure. BRING WITH YOU ANY DEVICES YOU MAY NEED: CHRISTIAN hose, ice machine, sling/swath, brace or special shoe, oversized zip-up or button up shirt, CPAP machine if staying overnight. 12. Do NOT wear jewelry, watches, or any piercings or metal for surgery- leave these valuables and money at home. 13. Do NOT wear contact lenses for surgery- glasses are okay if needed. 14. The anesthesiologist will talk with you the day of surgery and will ask you to sign a Consent Form. 15. Refrain from smoking or any type of tobacco use for at least 8 hours and marijuana for 24 hoursprior to arrival for your surgery. 16. Notify your surgeon if you develop any illness before your surgery. 17. If you are staying overnight, please DO NOT BRING your home medications with you. 18. If you have any questions prior to surgery, please call the Preadmission Testing office at [phone], Mon.-Fri. 7 a.m.-3 p.m. Leave a voicemail if needed. Pre-Surgery Instructions: Medication Instructions busPIRone (BUSPAR) 10 mg tablet Stop taking 0 days prior to procedure famotidine (PEPCID) 20 mg tablet Stop taking 0 days prior to procedure hydrOXYzine (VISTARIL) 25 mg capsule Stop taking 0 days prior to procedure LORazepam (ATIVAN) 0.5 mg tablet Stop taking 0 days prior to procedure nitrofurantoin, macrocrystal-monohydrate, (MACROBID) 100 mg capsule Stop taking 0 days prior to procedure sertraline (ZOLOFT) 50 mg tablet Stop taking 0 days prior to procedure documented in this encounterOhioHealth Nelsonville Health Center05-13-2025 Nurse Note* Perioperative Nursing Note - Elizabeth Vallejo RN - 08/19/2024 2:30 PM EDT Preoperative Education Checklist- General Surgery date: 08/25/24 Surgery time: 1300 Arrival time: 1100 1. Bring a photo ID and your insurance card with you the day of surgery. You will check in at the main lobby of the [facility]- registration desk is straight ahead as soon as you walk in. Tell them you are here for surgery. 2. If you have a Living Will/Durable Power of Feed Adviser for Health Care that is not on file here, please bring a copy the day of surgery. 3. Please shower/bathe the night before surgery with the provided soap or wipes. Do not shower the morning of surgery- you will do use wipes when you arrive here at the hospital before getting into your surgical gown. Do not shave the area of your procedure for 2 days prior to your surgery. 4. NO powder, lotion, perfume/cologne, aftershave, make-up, deodorant, or hair products after you have bathed. 5. NO nail tongan/acrylic on at least one finger. If you are having a hand, wrist or foot surgery then all nail tongan and artificial/acrylic nails must be removed from that hand or foot. 6. Avoid ALL Aspirin and non-steroidal anti-inflammatory drugs and certain vitamins (Ibuprofen, Advil, Aleve, Excedrin, Meloxicam, Celebrex, fish/krill oil, etc.) for 7 days prior to surgery as instructed by your surgeon and/or your prescribing doctor. Tylenol IS ALLOWED. If you are on Ticlid, Xarelto, Eliquis, Pradaxa, Plavix or Coumadin, please check with your prescribing doctor for instructions for when to stop them. 7. If you use an inhaler, continue to use it routinely. 8. Nothing to eat or drink (not even water, gum, mints, or hard candy!) AFTER midnight prior to your surgery. 9. Take only medications that you are instructed to on the morning of surgery with a TINY SIP OF WATER. 10. Choose a responsible adult that will be able to drive you home when you are discharged from your hospital stay for your surgery and can stay with you in your home for 24 hours after your procedure. You must NOT drive any vehicle or operate any machinery for 24 hours after surgery. 11. When you dress for your appointment, please wear loose fitting clothing that is appropriate to accommodate your surgical area procedure. BRING WITH YOU ANY DEVICES YOU MAY NEED: CHRISTIAN hose, ice machine, sling/swath, brace or special shoe, oversized zip-up or button up shirt, CPAP machine if staying overnight. 12. Do NOT wear jewelry, watches, or any piercings or metal for surgery- leave these valuables and money at home. 13. Do NOT wear contact lenses for surgery- glasses are okay if needed. 14. The anesthesiologist will talk with you the day of surgery and will ask you to sign a Consent Form. 15. Refrain from smoking or any type of tobacco use for at least 8 hours and marijuana for 24 hoursprior to arrival for your surgery. 16. Notify your surgeon if you develop any illness before your surgery. 17. If you are staying overnight, please DO NOT BRING your home medications with you. 18. If you have any questions prior to surgery, please call the Preadmission Testing office at [phone], Mon.-Fri. 7 a.m.-3 p.m. Leave a voicemail if needed. Pre-Surgery Instructions: Medication Instructions busPIRone (BUSPAR) 10 mg tablet Stop taking 0 days prior to procedure famotidine (PEPCID) 20 mg tablet Stop taking 0 days prior to procedure hydrOXYzine (VISTARIL) 25 mg capsule Stop taking 0 days prior to procedure LORazepam (ATIVAN) 0.5 mg tablet Stop taking 0 days prior to procedure nitrofurantoin, macrocrystal-monohydrate, (MACROBID) 100 mg capsule Stop taking 0 days prior to procedure sertraline (ZOLOFT) 50 mg tablet Stop taking 0 days prior to procedure [facility]05-12-[facility]25 History of Present illness Narrative* Gio Mathews, DO - 08/18/2024 1:15 PM EDT Subjective Patient ID: Amber Maldonado is a 63 y.o. female. Aleah presents today for a possible urinary tract infection. Her symptoms started on with dysuria and frequency. She feels bloated. She only dribbles a small amount at a time. She denies fever, back pain, nausea or vomiting. She has had these in the past but it has been awhile. It feels similar to her previous infections. She had a PET scan and there was some activity seen near her rectum. That is where she had cancer. She has a flexible sigmoidoscopy coming up next week. Urinary Tract Infection This is a chronic problem. The current episode started in the past 7 days. The problem occurs everyurination. The problem has been unchanged. The quality of the pain is described as burning. There has been no fever. The following portions of the patient's history were reviewed and updated as appropriate: allergies, current medications, past family history, past medical history, past social history, past surgicalhistory, problem list, and medication reconciliation was completed including current medication andpost discharge medication. Review of Systems Neurological: Positive for dizziness (vertigo 2 weeks ago). Objective Physical Exam Vitals reviewed. Exam conducted with a custom bike builder present (Michael Mak MS3). Constitutional: General: She is not in acute distress. Appearance: Normal appearance. She is normal weight. She is not ill-appearing. HENT: Head: Normocephalic. Pulmonary: Effort: No respiratory distress. Abdominal: Tenderness: There is no right CVA tenderness or left CVA tenderness. Neurological: Mental Status: She is alert. Psychiatric: Attention and Perception: Attention normal. Mood and Affect: Mood and affect normal. Speech: Speech normal. Behavior: Behavior normal. Behavior is cooperative. Thought Content: Thought content normal. Cognition and Memory: Cognition normal. Judgment: Judgment normal. Assessment/Plan Aleah was seen today for urinary tract infection. Diagnoses and all orders for this visit: Urinary tract infection without hematuria, site unspecified - POCT urinalysis dipstick only She had a slightly abnormal urine which was suggestive of a urinary tract infection. I will cover with Macrobid 100 mg twice a day for 5 days since she has a procedure coming up and is symptomatic. Push fluids. Call if worse or new symptoms arise. Other orders - nitrofurantoin, macrocrystal-monohydrate, (MACROBID) 100 mg capsule; Take 1 capsule (100 mg total) by mouth in the morning and 1 capsule (100 mg total) before bedtime. Do all this for 5 days. documented in this encounterUniversity Hospitals Conneaut Medical CenterLiquidFrameworks [id number] Miscellaneous Notes* Telephone Encounter - LAUREN Lao - 08/18/2024 11:44 AM EDT Aleah called into the office to confirm her appointment time for her procedure on 08/25/24. Dr. Infante has a meeting at noon so her surgery was moved to 1 pm with an arrival time of 11:00 am. The patient expressed a complete understanding. documented in this encounterOhio[facility] Telephone encounter Note* Telephone Encounter - LAUREN Lao - 08/18/2024 11:44 AM EDT Aleah called into the office to confirm her appointment time for her procedure on 08/25/24. Dr. Infante has a meeting at noon so her surgery was moved to 1 pm with an arrival time of 11:00 am. The patient expressed a complete understanding. [facility]05-05-2025 History of Present illness Narrative* Darcy Mena, SADE-ESTIVEN - 08/11/2024 12:00 PM EDT Images from the original note were not included. Chief Complaint: Abnormal PET scan History of Present Illness Amber Maldonado is a 63 y.o. female who presents for evaluation as referred by her medical oncologist (Dr. Lowery) at the [facility]. She has a personal history of anal carcinoma originally diagnosed 11 years ago with recurrence of the cancer 3 years ago. She last had chemo and radiationAugust 2022. She also has a history of previous diverticular resection performed in [place]. On her most recent PET scan 07/22/2024 uptake was noted at the lower rectum with concern for recurrent neoplasm. Her last colonoscopy was 10/24/2023. No polyps were removed. Perianal tissue was biopsied showing benign mucosa with no evidence of malignancy. She denies any concerns or changes in her bowel habits. She reports chronic diarrhea for which she takes Imodium. Review of Systems Constitutional: Negative for fever and unexpected weight change. HENT: Negative for trouble swallowing. Respiratory: Negative for shortness of breath. Cardiovascular: Negative for chest pain. Gastrointestinal: Positive for diarrhea. Negative for abdominal pain, constipation and blood in stool. Genitourinary: Negative for dysuria and difficulty urinating. Musculoskeletal: Negative for gait problem. Skin: Negative for rash and wound. Neurological: Negative for dizziness, weakness and light-headedness. Hematological: Does not bruise/bleed easily. Psychiatric/Behavioral: Negative for confusion. Past Medical History: Diagnosis Date Anxiety Arthritis Cancer ([facility]) Depression GERD (gastroesophageal reflux disease) Pneumonia Visual impairment Past Surgical History: Procedure Laterality Date APPENDECTOMY COLONOSCOPY No Known Allergies Current Outpatient Medications: busPIRone (BUSPAR) 10 mg tablet, Take 1 tablet (10 mg total) by mouth 3 (three) times a day., Disp:60 tablet, Rfl: 2 famotidine (PEPCID) 20 mg tablet, TAKE 1 TABLET BY MOUTH 2 TIMES A DAY NEEDED FOR HEARTBURN., Disp: 30 tablet, Rfl: 5 hydrOXYzine (VISTARIL) 25 mg capsule, TAKE 1 CAPSULE BY MOUTH NIGHTLY NEEDED FOR ITCHING., Disp:90 capsule, Rfl: 1 LORazepam (ATIVAN) 0.5 mg tablet, TAKE 1 TABLET BY MOUTH EVERY 6 HOURS NEEDED FOR ANXIETY, Disp:30 tablet, Rfl: 1 sertraline (ZOLOFT) 50 mg tablet, TAKE 1 AND 1/2 TABLETS BY MOUTH IN THE MORNING, Disp: 135 tablet,Rfl: 1 Social History Socioeconomic History Marital status: Spouse [...] Social History Narrative Not on file Social Drivers of Health Financial Resource Strain: High Risk (10/12/2022) [facility] Financial Resource Strain (CARDIA) Difficulty of Paying Living Expenses: Very hard Food Insecurity: No Food Insecurity (07/03/2024) Hunger Screening Food Insecurity - Worry: Never True Food Insecurity - Inability: Never True Transportation Needs: No Transportation Needs (10/12/2022) Received from [facility] PRAPARE - Transportation Lack of Transportation (Medical): No Lack of Transportation (Non-Medical): No Physical Activity: Insufficiently Active (10/12/2022) Received from [facility] Exercise Vital Sign Days of Exercise per Week: 4 days Minutes of Exercise per Session: 10 min Stress: Stress Concern Present (10/12/2022) Received from [facility] [employer] - Occupational Stress Questionnaire Feeling of Stress : Rather much Social Connections: Moderately Integrated (03/18/2024) Social Connection and Isolation Panel [NHANES] Frequency of Communication with Friends and Family: More than three times a week Frequency of Social Gatherings with Friends and Family: Once a week Attends Spiritism Services: Never Active Member of Clubs or Organizations: Yes Attends Club or Organization Meetings: More than 4 times per year Marital Status: Living with partner Interpersonal Safety: Not At Risk (10/12/2022) Received from [facility] Humiliation, Afraid, Rape, and Kick questionnaire Fear of Current or Ex-Partner: No Emotionally Abused: No Physically Abused: No Sexually Abused: No Housing Instability: High Risk (10/12/2022) Received from [facility] Housing Stability Vital Sign Unable to Pay for Housing in the Last Year: Yes Number of Places Lived in the Last Year: 1 Unstable Housing in the Last Year: No Family History Problem Relation Age of Onset COPD Mother 71 Emphysema Mother COPD Father Lung cancer Father at age 84 Colon cancer Father Thyroid disease Sister COPD Sister Breast cancer Sister Hypertension Sister Thyroid disease Sister Back Problems Sister fusion with cage No Known Problems Sister Depression Sister OD on street drugs-cocaine, EtOH and MJ with antidepressants Hypertension Brother Heart attack Brother No Known Problems Son No Known Problems Son No Known Problems Granddaughter Objective Physical Exam Constitutional: General: She is not in acute distress. Appearance: Normal appearance. She is not ill-appearing. HENT: Head: Normocephalic and atraumatic. Mouth/Throat: Mouth: Mucous membranes are moist. Eyes: Pupils: Pupils are equal, round, and reactive to light. Cardiovascular: Rate and Rhythm: Normal rate. Pulmonary: Effort: Pulmonary effort is normal. No respiratory distress. Abdominal: General: There is no distension. Musculoskeletal: General: Normal range of motion. Skin: General: Skin is warm and dry. Neurological: Mental Status: She is alert and oriented to person, place, and time. Mental status is at baseline. Vital Signs: Blood pressure 101/50, height 182.9 cm (6'), weight 72.4 kg (159 lb 9.6 oz). Respiratory Source: No data recorded Admission Weight: Weight: 72.4 kg (159 lb 9.6 oz) Labs No results found for: WBC , HGB , HCT , MCV , PLT Lab Results Component Value Date GLU 101 (H) 03/18/2024 CALCIUM 10.0 03/18/2024 K 4.1 03/18/2024 CO2 24 03/18/2024 CL 104 03/18/2024 BUN 23 03/18/2024 CREATININE 1.38 (H) 03/18/2024 No results found for: AMYLASE No results found for: LIPASE Lab Results Component Value Date ALT 14 03/18/2024 AST 18 03/18/2024 ALKPHOS 151 (H) 03/18/2024 No results found for: INR , PROTIME Assessment History of anal carcinoma, last radiation/chemotherapy November 2022 Abnormal PET scan with uptake noted at the lower rectum concerning for recurrent neoplasm Plan Flexible sigmoidoscopy with biopsy. Evaluation included: Preparing to see the patient (e.g., review of tests) Obtaining and/or reviewing separately obtained history Performing a medically appropriate examination and/or evaluation Counseling and educating the patient/family/caregiver Referring and communicating with other health wound care specialist Abnormal gastrointestinal PET scan [R94.8] AYANNA GOODWIN [facility] [place] This note was created with the assistance of a speech recognition program. While intending to generate a timely document that accurately reflects the content of the visit, no guarantee can be provided that every grammatical or spelling mistake has been or will be identified or corrected. Thank you for your understanding. AYANNA Goodwin 08/13/24 0958 documented in this encounterOhioHealth [facility] Evaluation + Plan note* Assessment & Plan Note - Bette Pierce MD - 07/03/2024 9:22 AM EDT Associated Problem(s): Thoracic aortic aneurysm without rupture, unspecified part ([facility]) Surveillance imaging with a CT t in a year. [facility]03-27-2025 Miscellaneous Notes* Assessment & Plan Note - Bette Pierce MD - 07/03/2024 9:22 AM EDTAssociated Problem(s): Thoracic aortic aneurysm without rupture, unspecified part ([facility]) Surveillance imaging with a CT t in a year. documented in this encounterOhioHealth [facility]03-[facility] History of Present illness Narrative* Bette Pierce MD - 07/03/2024 9:20 AM EDT Images from the original note were not included. To: Gio Mathews, DO HPI: Amber Maldonado is a 63 y.o. female with Dilated ascending aorta at 4.7 cm. She was found to have that in the PET scan. She is tall and I discussed with her the potential of Marfan syndrome. She said both her kids were tested and they were negative.. Review of Systems: Review of Systems Constitutional: Negative. HENT: Negative. Respiratory: Negative. Cardiovascular: Negative. Gastrointestinal: Negative. Endocrine: Negative. Genitourinary: Negative. Musculoskeletal: Negative. Skin: Negative. Neurological: Negative. Hematological: Negative. Medications: Current Outpatient Medications on File Prior to Visit Medication Sig Dispense Refill busPIRone (BUSPAR) 10 mg tablet Take 1 tablet (10 mg total) by mouth 3 (three) times a day. 60 tablet 2 famotidine (PEPCID) 20 mg tablet Take 1 tablet (20 mg total) by mouth 2 (two) times a day as neededfor heartburn. 60 tablet 2 hydrOXYzine (VISTARIL) 25 mg capsule TAKE 1 CAPSULE BY MOUTH NIGHTLY NEEDED FOR ITCHING. 90 capsule 1 LORazepam (ATIVAN) 0.5 mg tablet TAKE 1 TABLET BY MOUTH EVERY 6 HOURS NEEDED FOR ANXIETY 30 tablet 1 sertraline (ZOLOFT) 50 mg tablet TAKE 1 AND 1/2 TABLETS BY MOUTH IN THE MORNING 135 tablet 1 No current facility-administered medications on file prior to visit. Past Medical History: Past Medical History: Diagnosis Date Anxiety Arthritis Cancer ([facility]) Depression GERD (gastroesophageal reflux disease) Pneumonia Visual impairment Past Surgical History: Past Surgical History: Procedure Laterality Date APPENDECTOMY COLONOSCOPY Social and Family History: Social History Socioeconomic History Marital status: Spouse [...] Social History Narrative Not on file Social Drivers of Health Financial Resource Strain: High Risk (10/12/2022) Received from [facility] Overall Financial Resource Strain (CARDIA) Difficulty of Paying Living Expenses: Very hard Food Insecurity: No Food Insecurity (07/03/2024) Hunger Screening Food Insecurity - Worry: Never True Food Insecurity - Inability: Never True Transportation Needs: No Transportation Needs (10/12/2022) Received from [facility] PRAPARE - Transportation Lack of Transportation (Medical): No Lack of Transportation (Non-Medical): No Physical Activity: Insufficiently Active (10/12/2022) Received from [facility] Exercise Vital Sign Days of Exercise per Week: 4 days Minutes of Exercise per Session: 10 min Stress: Stress Concern Present (10/12/2022) Received from [facility] [employer] - Occupational Stress Questionnaire Feeling of Stress : Rather much Social Connections: Moderately Integrated (03/18/2024) Social Connection and Isolation Panel [NHANES] Frequency of Communication with Friends and Family: More than three times a week Frequency of Social Gatherings with Friends and Family: Once a week Attends Spiritism Services: Never Active Member of Clubs or Organizations: Yes Attends Club or Organization Meetings: More than 4 times per year Marital Status: Living with partner Interpersonal Safety: Not At Risk (10/12/2022) Received from [facility] Humiliation, Afraid, Rape, and Kick questionnaire Fear of Current or Ex-Partner: No Emotionally Abused: No Physically Abused: No Sexually Abused: No Housing Instability: High Risk (10/12/2022) Received from [facility] Housing Stability Vital Sign Unable to Pay for Housing in the Last Year: Yes Number of Places Lived in the Last Year: 1 Unstable Housing in the Last Year: No Family History Problem Relation Age of Onset COPD Mother 71 Emphysema Mother COPD Father Lung cancer Father at age 84 Colon cancer Father Thyroid disease Sister COPD Sister Breast cancer Sister Hypertension Sister Thyroid disease Sister Back Problems Sister fusion with cage No Known Problems Sister Depression Sister OD on street drugs-cocaine, EtOH and MJ with antidepressants Hypertension Brother Heart attack Brother No Known Problems Son No Known Problems Son No Known Problems Granddaughter Recent Labs: Recent and relative labs were reviewed and interpreted and contributed to the assessment and plan below. Vitals: BP 132/88 (BP Site: Left Arm, BP Postition: Sitting, BP CUFF SIZE: M (9-13 inches)) Pulse 93 Temp (!) 35.6 C (96.1 F) (Temporal) Ht 182.9 cm (6') Wt 74.4 kg (164 lb) SpO2 97% BMI 22.24 kg/m Body mass index is 22.24 kg/m . Physical Exam: Physical Exam Constitutional: Appearance: Normal appearance. HENT: Head: Normocephalic and atraumatic. Mouth/Throat: Mouth: Mucous membranes are moist. Eyes: Extraocular Movements: Extraocular movements intact. Pupils: Pupils are equal, round, and reactive to light. Cardiovascular: Rate and Rhythm: Normal rate and regular rhythm. Pulmonary: Effort: Pulmonary effort is normal. Breath sounds: Normal breath sounds. Abdominal: General: Abdomen is flat. Bowel sounds are normal. Palpations: Abdomen is soft. Musculoskeletal: General: Normal range of motion. Cervical back: Normal range of motion. Skin: General: Skin is warm and dry. Neurological: General: No focal deficit present. Mental Status: She is alert and oriented to person, place, and time. Mental status is at baseline. Psychiatric: Mood and Affect: Mood normal. Behavior: Behavior normal. Thought Content: Thought content normal. Judgment: Judgment normal. Recent testing: PET scan Assessment and Plan: Problem List Thoracic aortic aneurysm without rupture, unspecified part ([facility]) Current Assessment & Plan Surveillance imaging with a CT t in a year. Aleah was seen today for family practitioner-thoracic aortic aneurysm without rupture, unspecified pa. Diagnoses and all orders for this visit: Thoracic aortic aneurysm without rupture, unspecified part ([facility]) - [facility] [place], [place] Bette Pierce MD, MADHU, RPVI, FSVS, FACS [facility] This note was created with the assistance of a speech recognition program. While intending to generate a timely document that accurately reflects the content of the visit, no guarantee can be provided that every grammatical or spelling mistake has been or will be identified or corrected. Thank you for your understanding. documented in this encounterOhioHealth [facility]03-[facility]25 History of Present illness Narrative* Gio Asenciobabak, DO - 06/09/2024 1:00 PM EST Subjective Patient ID: Amber Maldonado is a 63 y.o. female. Amber Maldonado is a 63 y.o. female presenting today for anxiety. She reports feeling anxious and overwhelmed. She has felt this way intermittently for several years, but reports a spike in her anxiety over the past couple months. She reports feeling really nervous, difficulty concentrating and paranoia. She reports she frequently starts tasks such as laundry but does follow through to completion. She also has occasional hyper fixation on her previous cancer diagnosis. She has tried yoga and breathing exercises which somewhat helps. She takes lorazepam, sertraline and buspirone which havehelped her sx. She also had a recent augment with her adult son which has impacted her mood. She expressed interest in speaking to a counselor. She did have an URI 2 weeks which has since resolved except for an occasional dry cough. Anxiety Symptoms include chest pain (chest heaviness when she feels anxious), decreased concentration and nervous/anxious behavior. Patient reports no confusion, dizziness, nausea, palpitations, shortness ofbreath or suicidal ideas. The following portions of the patient's history were reviewed and updated as appropriate: allergies, current medications, past family history, past medical history, past social history, past surgicalhistory, problem list, and medication reconciliation was completed including current medication andpost discharge medication. Review of Systems Constitutional: Negative for activity change, appetite change, fatigue, fever and unexpected weightchange. Eyes: Negative for visual disturbance. Respiratory: Negative for shortness of breath and wheezing. Cardiovascular: Positive for chest pain (chest heaviness when she feels anxious). Negative for palpitations. Gastrointestinal: Positive for blood in stool (Associated with her anal CA) and diarrhea. Negative for abdominal pain, nausea and vomiting. Endocrine: Positive for polyuria. Genitourinary: Negative for dysuria and hematuria. Neurological: Negative for dizziness and light-headedness. Psychiatric/Behavioral: Positive for agitation, behavioral problems, decreased concentration, dysphoric mood and sleep disturbance (Difficulty falling and staying asleep). Negative for confusion, hallucinations, self-injury and suicidal ideas. The patient is nervous/anxious and is hyperactive. Objective Physical Exam Constitutional: General: She is not in acute distress. Appearance: Normal appearance. She is not ill-appearing, toxic-appearing or diaphoretic. HENT: Head: Normocephalic and atraumatic. Eyes: Extraocular Movements: Extraocular movements intact. Pupils: Pupils are equal, round, and reactive to light. Cardiovascular: Rate and Rhythm: Normal rate and regular rhythm. Pulses: Normal pulses. Heart sounds: Normal heart sounds. No murmur heard. No friction rub. No gallop. Pulmonary: Effort: Pulmonary effort is normal. No respiratory distress. Breath sounds: Normal breath sounds. No stridor. No wheezing, rhonchi or rales. Chest: Chest wall: No tenderness. Abdominal: General: Abdomen is flat. There is no distension. Palpations: Abdomen is soft. There is no mass. Tenderness: There is no abdominal tenderness. There is no guarding or rebound. Hernia: No hernia is present. Musculoskeletal: Cervical back: Normal range of motion and neck supple. Skin: General: Skin is warm and dry. Coloration: Skin is not jaundiced or pale. Findings: No bruising, erythema, lesion or rash. Neurological: General: No focal deficit present. Mental Status: She is alert and oriented to person, place, and time. Psychiatric: Mood and Affect: Mood normal. Behavior: Behavior normal. Thought Content: Thought content normal. Judgment: Judgment normal. Assessment/Plan Aleah was seen today for anxiety. Diagnoses and all orders for this visit: Anxiety - [facility] [place], [place]; Future Increase BuSpar to 10 mg twice a day. Refer to [facility] for counseling. Depression, unspecified depression type Scored moderate on PHQ-9. Continue sertraline. We will increase BuSpar as it seems to be more anxiety related. Insomnia, unspecified type Can use Vistaril or lorazepam at bedtime. Other orders - busPIRone (BUSPAR) 10 mg tablet; Take 1 tablet (10 mg total) by mouth 3 (three) times a day. Note composed in part by Jose Roberto Caba MS3 06/09/24 12:51 PM documented in this encounterOhioHealth Nelsonville Health Center01-28-2025 Miscellaneous Notes* Telephone Encounter - Shira Johnson CMA - 05/06/2024 9:36 AM EST Made 3 attempts to contact patient for new patient appointment with Vascular with no success. Patient also no showed 2 visits 05/06/24-LVM to cb to schedule appt 04/15/24-LVM to cb to schedule appt 03/25/24 LVM to cb to schedule appt 03/18/24 LVM to cb to schedule appt documented in this encounterOhioHealth Nelsonville Health Center01-28-2025 Telephone encounter Note* Telephone Encounter - Shira Johnson CMA - 05/06/2024 9:36 AM EST Made 3 attempts to contact patient for new patient appointment with Vascular with no success. Patient also no showed 2 visits 05/06/24-LVM to cb to schedule appt 04/15/24-LVM to cb to schedule appt 03/25/24 LVM to cb to schedule appt 03/18/24 LVM to cb to schedule appt [facility] Center[facility]-07-2025 Miscellaneous Notes* Telephone Encounter - Shira Johnson CMA - 04/15/2024 10:24 AM EST Made 3 attempts to contact patient for new patient appointment with Vascular with no success. 04/15/24-LVM to cb to schedule appt 03/25/24 LVM to cb to schedule appt 03/18/24 LVM to cb to schedule appt documented in this encounterUniversity Hospitals Conneaut Medical CenterRenaissance Brewing01-07-2025 Telephone encounter Note* Telephone Encounter - Shira Johnson CMA - 04/15/2024 10:24 AM EST Made 3 attempts to contact patient for new patient appointment with Vascular with no success. 04/15/24-LVM to cb to schedule appt 03/25/24 LVM to cb to schedule appt 03/18/24 LVM to cb to schedule appt [employer]12-10-2024 History of Present illness Narrative* Gio Mathews, - 03/18/2024 1:00 PM EST Subjective Amber Maldonado is a 63 y.o. female who presents for a [place] to Medicare visit. The following portions of [...] mouth 2 (two) times a day as neededfor heartburn. 60 tablet 2 hydrOXYzine (VISTARIL) 25 [...] with the phone, transportation, shopping, preparing meals, housework,laundry, medications or managing money? No 3. Does the patient's home have rugs in the hallway, lack grab bars in the bathroom, lack handrailson the stairs or have poor lighting? No [...] Exam Vitals reviewed. Exam conducted with a custom bike builder present (Nikky Bentley MS III). Constitutional: General: She is not in acute distress. Appearance: Normal appearance. She is normal weight. She is not ill-appearing. HENT: Head: Normocephalic. Right Ear: Tympanic membrane, ear canal and external ear normal. Left Ear: Tympanic membrane, ear canal and external ear normal. Nose: Nose normal. Mouth/Throat: Lips: [place]. Mouth: Mucous membranes are moist. Pharynx: Oropharynx [...] depression Anxiety Screening for heart disease Seizure ([facility]) Thoracic aortic aneurysm without rupture, unspecified part ([facility]) Depression, unspecified depression type Gastroesophageal reflux disease, [...] any side effects. She is using high riskmedication with benefit. Does help improve her ADLs. [...] agrees to the consult. documented in this encounterUniversity Hospitals Conneaut Medical CenterLiquidFrameworks [id number] Miscellaneous Notes* Telephone Encounter - Sheree Waddell CMA - 02/29/2024 12:15 PM EST Pt requesting [facility]ill on [facility]epam. [facility] documented in this encounterOhioHealth Nelsonville Health Center11-22-2024 Telephone encounter Note* Telephone Encounter - Sheree Waddell CMA - 02/29/2024 12:15 PM EST Pt requesting refill on [facility]azepam. [facility] Certified Security [id number] History of Present illness Narrative* Gio G Rocio, - 10/30/2023 1:30 PM EDT Subjective Patient ID: Amber Maldonado is a [...] medication andpost discharge medication. Review of Systems Musculoskeletal: Positive [...] I recommended she cut it back to oncea day at bedtime if she can and even then use it 1 every 12 hours as needed. Anemia due to chemotherapy He has an appointment coming up with Oncology and will have it check then. Depression, unspecified depression type Stable. Continue current regimen. Hypokalemia She said she had labs done at [facility] just recently but I do not [...] heartburn. Multiple joint pain Recommended to use uect-nee-faaesvy medications such as Tylenol or ibuprofen if she can tolerate it. Also topical agents are a good alternative. documented in this encounterOhioHealth Nelsonville Health Center07-22-2024 Miscellaneous Notes* Telephone Encounter - Radha Demarco CMA - 10/29/2023 1:12 PM EDT ----- Message from Dr. Chey Infante DO sent at 10/29/2023 12:12 PM EDT ----- Please call patient and let her know that her pathology reports are benign. Thanks, Dr. Pappas * Telephone Encounter - Radha Demarco CMA - 10/29/2023 1:12 PM EDT Spoke with patient regarding pathology results. Patient verbally understood with no further questions. documented in this encounterOhioHealth Nelsonville Health Center07-22-2024 Telephone encounter Note* Telephone Encounter - Radha Demarco CMA - 10/29/2023 1:12 PM EDT ----- Message from Dr. Chey Infante, DO sent at 10/29/2023 12:12 PM EDT ----- Please call patient and let her know that her pathology reports are benign. ThanksDr. Pappas [facility]07-22-2024 Telephone encounter Note* Telephone Encounter - Radha Demarco CMA - 10/29/2023 1:12 PM EDT Spoke with patient regarding pathology results. Patient verbally understood with no further questions. [facility]07-11-2024 History of Present illness Narrative* Darcy Mena, SADE-PODIATRIST ASSISTANT - 10/18/2023 12:00 PM EDT Images from the original note were not included. [facility] PHYSICIANS GENERAL SURGERY [facility] [id number] CONSULT NOTE CHIEF COMPLAINT Rectal bleeding/history of anal carcinoma referred by Oncology at the [facility] Amber Maldonado is a 62 y.o. female who presents for evaluation as referred by her medical oncologist(Dr. Lowery) at the [facility] who called asking to do a colonoscopy and a biopsy of anal mass. Patient has a known history of anal carcinoma diagnosed at [facility] 2 years ago but this was recurrence it was initially diagnosed as carcinoma in Situ 10 years ago when she lived in [place] and underwent chemo cream and then laser to the area. Since that time she has had chemo and radiation for 6 weeks last time she had radiation was November of 2022 but her sphincters feels like it is on fire and is sore all the time. Her last colonoscopy was 6-7 years ago in [place]. She was also found to be anemic. This is believed to be secondary to her chemotherapy. She had a prior diverticular resection performed about 7 years ago in [place]. MEDICATION Current Outpatient Medications: busPIRone (BUSPAR) 5 [...] total) by mouth in the morning., Disp: 45tablet, Rfl: 2 silver sulfADIAZINE (SILVADENE, SSD) 1 [...] Resource Strain: High Risk (10/12/2022) Received from simplify[facility] Overall Financial Resource Strain (CARDIA) Difficulty of Paying Living Expenses: Very hard Food Insecurity: No Food Insecurity (10/18/2023) Hunger Screening Food Insecurity - Worry: Never True Food Insecurity - Inability: Never True Transportation Needs: No Transportation Needs (10/12/2022) Received from [facility] PRAPARE - Transportation Lack of Transportation (Medical): No Lack of Transportation (Non-Medical): No Physical Activity: Insufficiently Active (10/12/2022) Received from [facility] Exercise Vital Sign Days of Exercise per Week: 4 days Minutes of Exercise per Session: 10 min Stress: Stress Concern Present (10/12/2022) Received from [employer] [place] [employer] - Occupational Stress Questionnaire Feeling of Stress : Rather much Social Connections: Unknown (10/12/2022) Received from [facility] Social Connection and Isolation Panel [NHANES] Frequency of Communication with Friends and Family: Three times a week Frequency of Social Gatherings with Friends and Family: Patient declined Attends Spiritism Services: Patient declined Active Member of Clubs or Organizations: Yes Attends Club or Organization Meetings: More than 4 times per year Marital Status: Living with partner Interpersonal Safety: Not At Risk (10/12/2022) Received from [facility] Humiliation, Afraid, Rape, and Kick questionnaire Fear of Current or Ex-Partner: No Emotionally Abused: No Physically Abused: No Sexually Abused: No Housing Instability: High Risk (10/12/2022) Received from [facility] Housing Stability Vital Sign Unable to Pay [...] for diverticular disease 7 years ago in [place] ASSESSMENT & PLAN Colonoscopy with possible biopsy [...] patient/family/caregiver Referring and communicating with other health wound care specialist 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 While intending to generate a timely document that accurately reflects the content of the visit, no guarantee can be provided that every grammatical or spelling mistake has been or will be identified or corrected. Thank you for your understanding. AYANNA Goodwin 10/18/23 1233 documented in this encounterWashington County Tuberculosis HospitalOmaha [id number] History of Present illness Narrative* Chey Infante, DO - 08/29/2023 2:00 PM EDT Images from the original note were not included. [facility] PHYSICIANS GENERAL SURGERY [facility] [id number] CONSULT NOTE CHIEF COMPLAINT Rectal bleeding/history of anal carcinoma referred by Oncology at the [facility] Amber Maldonado is a 62 y.o. female who presents for evaluation as referred by her medical oncologist(Dr. Lowery) at the [facility] who called me last week asking if I would do a colonoscopy and a biopsy of anal mass. Patient has a known history of anal carcinoma diagnosed at [facility] 2 years ago but this was recurrence it was initially diagnosed as carcinoma in Situ 10 years ago when she lived in [place] and underwent chemo cream and then laser to the area. Since that time she has had chemo and radiation for 6 weeks last time she had radiation was November but her sphincters feels like it is on fire and is sore all the time. Her last colonoscopy was6-7 years ago in [place]. She was also found to be anemic. This is believed to be secondary to her chemotherapy. She had a prior diverticular resection performed about 7 years ago in [place]. MEDICATION Current Outpatient Medications: busPIRone (BUSPAR) 5 [...] (route: topical), Disp: , Rfl: peg 3350-sod sulf,ofak-dqe-bxg 178.7-7.3-0.5 gram recon soln, Take 1 kit [...] Resource Strain: High Risk (10/12/2022) Received from [facility] Overall Financial Resource Strain (CARDIA) Difficulty of Paying Living Expenses: Very hard Food Insecurity: No Food Insecurity (08/09/2023) Hunger Screening Food Insecurity - Worry: Never True Food Insecurity - Inability: Never True Transportation Needs: No Transportation Needs (10/12/2022) Received from [facility] PRAPARE - Transportation Lack of Transportation (Medical): No Lack of Transportation (Non-Medical): No Physical Activity: Insufficiently Active (10/12/2022) Received from [facility] Exercise Vital Sign Days of Exercise per Week: 4 days Minutes of Exercise per Session: 10 min Stress: Stress Concern Present (10/12/2022) Received from [facility] [place] [employer] - Occupational Stress Questionnaire Feeling of Stress : Rather much Social Connections: Unknown (10/12/2022) Received from [facility] Social Connection and Isolation Panel [NHANES] Frequency of Communication with Friends and Family: Three times a week Frequency of Social Gatherings with Friends and Family: Patient declined Attends Spiritism Services: Patient declined Active Member of Clubs or Organizations: Yes Attends Club or Organization Meetings: More than 4 times per year Marital Status: Living with partner Interpersonal Safety: Not At Risk (10/12/2022) Received from [facility] Humiliation, Afraid, Rape, and Kick questionnaire Fear of Current or Ex-Partner: No Emotionally Abused: No Physically Abused: No Sexually Abused: No Housing Instability: High Risk (10/12/2022) Received from [facility] Housing Stability Vital Sign Unable to Pay [...] midline lower abdominal wall incision. Rectal exam: Senior Examiner present;. External skin surrounding the anus appears [...] for diverticular disease 7 years ago in [place] ASSESSMENT & PLAN Colonoscopy with possible biopsy or polypectomy. I discussed the risks, benefits, alternatives to the above which may include perforation or bleeding or risks of anesthesia. They understood all the above and wished to proceed. I recommended she call her radiation oncologist at [facility] in [place] to ask about a cream for burning sensation around the radiated area of the anus. She told me she would do so. Evaluation included: Preparing to see the patient (e.g., review of tests) Obtaining and/or reviewing separately obtained history Performing a medically appropriate examination and/or evaluation Counseling and educating the patient/family/caregiver Referring and communicating with other health wound care specialist Recurrent anal squamous cell carcinoma ([facility]) [C21.0] Chey Infante DO This note was created with the assistance of a speech recognition program. While intending to generate a timely document that accurately reflects the content of the visit, no guarantee can be provided that every grammatical or spelling mistake has been or will be identified or corrected. Thank you for your understanding. documented in this encounterOhioHealth Nelsonville Health Center05-14-2024 Miscellaneous Notes* Telephone Encounter - Deedee Perry - 08/21/2023 10:37 AM EDT Called Amber regarding the anal biopsy referral that our office received from [facility], I left a message on voicemail to call the office back to schedule an appointment. * Telephone Encounter - Deedee Perry - 08/21/2023 10:37 AM EDT Amber called back and we scheduled her an appointment on 08/29/2023. documented in this encounterOhioHealth Nelsonville Health Center05-14-2024 Telephone encounter Note* Telephone Encounter - Deedee Perry - 08/21/2023 10:37 AM EDT Called Amber regarding the anal biopsy referral that our office received from [facility], I left a message on voicemail to call the office back to schedule an appointment. [facility]05-14-2024 Telephone encounter Note* Telephone Encounter - Deedee Perry - 08/21/2023 10:37 AM EDT Amber called back and we scheduled her an appointment on 08/29/2023. [id number] History of Present illness Narrative* Camron Roque, PharmD - 02/08/2023 4:10 PM EDT Specialty Pharmacy Program Wrap Up/Discharge Note: Type [...] Camron Roque, PharmD. Clinical Oncology Specialty Pharmacist [phone] [id number] documented in this [id number] Telephone encounter Note* Telephone Encounter - Rosemarie Smith MD - 01/23/2023 12:09 PM EDT Spoke with Dr. Darcy Ellis from [facility] where patient was admitted with sepsis from PNA and pulmonary emboli. Will be discharged today or tomorrow on eliquis and levaquin. Will cancel our f/u tomorrow and reschedule with her in 1-[address] Ellis will relay the message. Rosemarie Smith MD [id number] Miscellaneous Notes* Telephone Encounter - Rosemarie Smith MD - 01/23/2023 12:09 PM EDT Spoke with Dr. Darcy Ellis from [facility] where patient was admitted with sepsis from PNA and pulmonary emboli. Will be discharged today or tomorrow on eliquis and levaquin. Will cancel our f/u tomorrow and reschedule with her in 1-[address] Ellis will relay the message. Rosemarie Smith MD documented in this [id number] Telephone encounter Note* Telephone Encounter - Robby Allen - 01/23/2023 9:[address] Ellis returning providers call requesting a call back. Can be reached at [phone]. [id number] Miscellaneous Notes* Telephone Encounter - Robby Allen - 01/23/2023 9:[address] Ellis returning providers call requesting a call back. Can be reached at [phone]. * Telephone Encounter - Robby Allen - 01/22/2023 8:[address] Darcy Ellis with [facility] calling requesting a return call regarding mutual patient. Patient is currently inpatient at [facility] and Dr. Ellis would like to update Dr. Smith. Can be reached at [phone]. Thank you. documented in this [id number] Telephone encounter Note* Telephone Encounter - Robby Allen - 01/22/2023 8:[address] Darcy Ellis with [facility] calling requesting a return call regarding mutual patient. Patient is currently inpatient at [facility] and Dr. Ellis would like to update Dr. Smith. Can be reached at [phone]. Thank you. [id number] History of Present illness Narrative* Dana Ordonez APRN- CNP - 12/29/2022 8:07 AM EDT This encounter was opened in error. Patient was a No-Show. Please disregard. Called patient x2. No answer, unable to leave VM as VM box is full. documented in this [id number] History of Present illness Narrative* Alta Ramirez RD - 12/19/2022 8:28 AM EDT Pt called x2. Voicemail left x2. This encounter was opened in error. Patient was a No-Show. Please disregard. documented in this [id number] History of Present illness Narrative* Jessika Acosta RN - 12/07/2022 3:42 PM EDT Patient was identified by name and date of . Jessika Acosta RN Patient at risk for falls:No Falls Risk protocol implemented: N/A Anal cancer (HCC) [522465] Pt presented to clinic for IVF. PIV placed to LFA on 2nd attempt using 22G angiocath, positive blood return noted. 1L NS bolus administered per orders. Pall care HEAD BUTLER chairside during infusion. PIV removed, no s/s infiltrate or extravasation. Patient verbalized follow-up instructions and discharged to home in stable condition. Jessika Acosta RN documented in this [id number] History of Present illness Narrative* Jana Veloz RN - 12/07/2022 2:27 PM EDT Patient here for follow up appointment with Dr Ramos, post radiation therapy for anal cancer, which was completed on 11/29/22. Treatment area pelvis with skin intact. No erythema or hyperpigmentation noted. Some anal pain- seeing Palliative care today. Appetite fair d/t c/o upset stomach. BP low and c/o feeling dizzy-getting IV hydration today.BM formed. Skin to perianal area starting to heal. UsingSilvadene. No concerns or complaints at this time. Assessment conveyed to physician. PET ordered and will f/u in 3 months after. * Milagro Chavira MTA - 12/07/2022 1:37 PM EDT Patient was identified by name and date of . ABDI Coello Body Mass Index is 18.63. Body Surface Area is 1.82 square meters according to the formula of Maggy and Maggy. Patient at risk for falls:No Falls Risk protocol implemented: No Blood pressure 98/49, pulse 66, resp. rate 16, height 6' (1.829 m), weight 137 lb 6.4 oz (62.3 kg),SpO2 95 %. 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 The patient has progressed through prior [...] there is increased flatulence, all likely due torecent RT. She also has been experiencing persistent low-grade nausea, with dizziness, and will seeMedical Oncology later today. There was considerable weight loss over the course of treatment. A CThas already been scheduled for early January. She has upcoming appointments with Dr. Padron as well. PAST MEDICAL HISTORY: Past Medical History: Diagnosis Date Anxiety Depression with anxiety 08/25/2022 Diverticulitis of large intestine with abscess without bleeding 08/17/2016 Heavy tobacco smoker >10 cigarettes per day 08/17/2016 Perianal mass 07/15/2021 Added automatically from request for surgery [id number] Vitamin D deficiency 12/19/2011 PAST SURGICAL HISTORY: [...] every 6 hours as needed for Pain forup to 7 days. 12/01/22 12/08/22 Damko, Dana, FIBERGLASS QUALITY TECHNICIAN-PODIATRIST ASSISTANT prochlorperazine (COMPAZINE) 10 MG tablet Take 1 Tablet by mouth every 6 hours as needed for Nauseafor up to 14 days. 11/23/22 12/08/22 Dana Ordonez APRN-PODIATRIST ASSISTANT lidocaine (XYLOCAINE) 5 % ointment Apply topically 3 times daily as needed. Apply thin layer to affected area. Mix equal parts of Lidocaine and Silvadene three times a day. 11/15/22 Mahesh Ramos MD, PhD silver sulfadiazine (SILVADENE) 1 % cream Apply topically 2 times daily. Apply thin layer to affected area. Mix equal parts of Lidocaine and Silvadene 2-3 times a day 11/08/22 Mahesh Ramos MD, PhD naloxone 4 mg/0.1 mL nasal liquid Use 1 [place] in one nostril (alternate sides) as needed [...] Apply thin layer to affected area. 10/25/22 Mahesh Ramos MD, PhD famotidine (Pepcid) 20 MG tablet Take 1 Tablet by mouth 2 times daily. 10/16/22 Ky [place] APRN-LABOR SERVICE REPRESENTATIVE ondansetron (ZOFRAN-ODT) 8 MG disintegrating tablet Take 1 Tablet by mouth every 12 hours as neededfor Nausea. 10/11/22 Rosemarie Smith MD capecitabine (XELODA) 500 MG tablet Take 3 tablets (1500 mg) by mouth in twice a day, 12 hours apart on each day radiotherapy is given, Sunday through Sunday. Doses should be taken with water within 30 minutes after a meal. Swallow tablets whole. Avoid cutting or crushing tablets.(825mg/m2/dose). 10/11/22 Rosemarie Smith MD cetirizine (ZyrTEC) 10 MG tablet [...] We will await the CT imaging, coming upin January. I plan to get a PET-CT at 3 months post treatment and see the patient back at that point. Thank you for allowing us to participate in the care of this patient. 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 The patient has progressed through prior [...] CT image guidance was used to allow reducedtreatment planning margins, and reduce associated collateral dose. CBCT IGRT was aligned to pelvic skeletal anatomy. 0.5 cm bolus was used to increase perineal superficial dose, although much of thiswas auto-bolused in the frog-leg treatment position. Bolus D/C'd midway through treatment. Treatment course: Radiation treatment was well tolerated with the expected toxicity. She experienced diarrhea throughout treatment cores, effectively controlled with the Imodium. There were no significant urinary symptoms. There was no rectal bleeding. There was a brisk perianal reaction consistentwith the initial malignancy and condyloma, and by completion this was confluent with a relatively mild skin reaction outside of the original distribution of malignancy. Superficial dose was increasedwith bolus, discontinued midway through treatment due to the skin reaction. Topical skin morbidity was effectively palliated with glucometer pro cream with lidocaine. At completion she was doing fairly well. Plan: Follow up in 1 week to assess resolution of treatment related morbidity. No imaging scheduledat this time. Thank you again for allowing us to participate in the care of this patient. 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 The patient has progressed through prior [...] CT image guidance was used to allow reducedtreatment planning margins, and reduce associated collateral dose. CBCT IGRT was aligned to pelvic skeletal anatomy. 0.5 cm bolus was used to increase perineal superficial dose, although much of thiswas auto-bolused in the frog-leg treatment position. Bolus D/C'd midway through treatment. Treatment course: Radiation treatment was well tolerated with the expected toxicity. She experienced diarrhea throughout treatment cores, effectively controlled with the Imodium. There were no significant urinary symptoms. There was no rectal bleeding. There was a brisk perianal reaction consistentwith the initial malignancy and condyloma, and by completion this was confluent with a relatively mild skin reaction outside of the original distribution of malignancy. Superficial dose was increasedwith bolus, discontinued midway through treatment due to the skin reaction. Topical skin morbidity was effectively palliated with Glucan Pro cream with lidocaine. At completion she was doing fairly well. Plan: Follow up in 1 week to assess resolution of treatment related morbidity. No imaging scheduledat this time. Thank you again for allowing us to participate in the care of this patient. Sincerely, Mahesh Ramos MD PhD Director, Board Certified Radiation Oncologist [facility] [address] [place] [address] documented in this [id number] History of Present illness Narrative* Dana Ordonez, F[employer]ER[employer]ASS QUALITY TECHNICIAN-PODIATRIST ASSISTANT - 12/01/2022 8:56 AM EDT Images from the original note [...] / SUPPORT SYSTEM: Live at home with fiance - Christopher 2 children 38 year old - [place] (first grandchild due in 4 weeks -- will be girl) 36 year old lives in [place] --- Deven and Boris Cueva Pat - [...] S policy) No 5. Consider consult to neurology specialist. Referral to addiction medicine specialist is notindicated. Patient was advised that controlled substances may [...] 07/15/2021 Added automatically from request for surgery [id number] Vitamin D deficiency 12/19/2011 Surgical Review of patient's past surgical history indicates: COLECTOMY open, for diverticulitis EUA, RECTAL (07/19/2021) Procedure: EUA, anal mass biopsies; Surgeon: Yoselin Padron MD; Location: PERIOPERATIVE SERVICES; Service: General BIOPSY, RECTAL (08/28/2022) Procedure: BIOPSY, RECTAL, ANAL MASS BIOPSY; Surgeon: Yoselin Padorn MD; Location: PERIOPERATIVE SERVICES; Service: General Social- [...] 10 min Stress: Stress Concern Present (10/12/2022) [place] [employer] - Occupational Stress Questionnaire Feeling of Stress : Rather much Social Connections: Unknown (10/12/2022) Social Connection and Isolation Panel [NHANES] Frequency of Communication with Friends and Family: Three times a week Frequency of Social Gatherings with Friends and Family: Patient refused Attends Spiritism Services: Patient refused Active Member of Clubs [...] hospital encounter of 11/13/22 (from the past 06526 hour(s)) HEPATIC FUNCTION PANEL Collection Time: 11/13/22 [...] her HCPOA. AYANNA Oropeza documented in this [id number] History of Present illness Narrative* Sanju Farmer MD - 11/29/2022 3:44 PM EDT Amber Maldonado is s/p 30/30 fractions, 5400 cgy. The treatment volume is the pelvis. Her appetite is good, stamina is good. Amber Maldonado has no new complaints or findings. There is no updated laboratory/imaging data Recommend: completing xrt, f/u in 4 weeks documented in this [id number] Instructions* Patient Instructions* Dana Ordonez APRN-CNP - 11/23/2022 3:12 PM [...] needed to control diarrhea documented in this [id number] History of Present illness Narrative* Dana Ordonez APRN-CNP - 11/23/2022 2:34 PM EDT Images from the original note [...] / SUPPORT SYSTEM: Live at home with [facility] 2 children 38 year old - [place] (first grandchild due in 4 weeks -- will be girl) 36 year old lives in [place] --- Deven and Boris Cueva Pat - sister - coming to stay for a bit Advanced Directives: Code status - FULL CODE Living will/DPOA-HC - Christopher - primary \OARRS was reviewed today. Additional [...] S policy) No 5. Consider consult to neurology specialist. Referral to addiction medicine specialist is notindicated. Patient was advised that controlled substances may [...] 07/15/2021 Added automatically from request for surgery [id number] Vitamin D deficiency 12/19/2011 Surgical Review of [...] 10 min Stress: Stress Concern Present (10/12/2022) [place] [employer] - Occupational Stress Questionnaire Feeling of Stress : Rather much Social Connections: Unknown (10/12/2022) Social Connection and Isolation Panel [NHANES] Frequency of Communication with Friends and Family: Three times a week Frequency of Social Gatherings with Friends and Family: Patient refused Attends Spiritism Services: Patient refused Active Member of Clubs [...] hospital encounter of 11/13/22 (from the past 32561 hour(s)) HEPATIC FUNCTION PANEL Collection Time: 11/13/22 [...] her HCPOA. AYANNA Oropeza documented in this [id number] History of Present illness Narrative* Alta Emmanuel RN - 11/13/2022 2:56 PM EDT Images from the original note [...] 1.27 9.2 Patient arrived to clinic for HEAD BUTLER visit, blood test and IVP mitomycin. #22g PIV placed to right handwith positive blood return and patency. Labs obtained, [...] radiation. Alta Emmanuel RN documented in this [id number] Hospital Discharge instructions* Patient Instructions* Alta Emmanuel RN - 11/13/2022 12:43 PM EDT Please start taking xeloda 1,000 MG twice daily (decrease from 1,500 mg twice daily) documented in this [id number] Telephone encounter Note* Telephone Encounter - Jana Veloz RN - 11/03/2022 8:19 AM EDT Patient was identified by name and date of . Jana Veloz RN Pt discharged from hospital yesterday for neutropenic fever. Radiation held 10/31- d/t low ANC andPlatelet count. Plan is for pt to get lab work 11/06 at least an hour before she comes in for radiation therapy. Lab work will be evaluated by Dr Ramos. Pt understands plan and states she is feeling a little better. Discussed neutropenic and bleeding precautions and all questions and concerns addressed by this nurse. [id number] Miscellaneous Notes* Telephone Encounter - Jana Veloz RN - 11/03/2022 8:19 AM EDT Patient was identified by name and date of . Jana Veloz RN Pt discharged from hospital yesterday for neutropenic fever. Radiation held 10/31- d/t low ANC andPlatelet count. Plan is for pt to get lab work 11/06 at least an hour before she comes in for radiation therapy. Lab work will be evaluated by Dr Ramos. Pt understands plan and states she is feeling a little better. Discussed neutropenic and bleeding precautions and all questions and concerns addressed by this nurse. documented in this [id number] Plan of care note* Care Plan Note - Jacques Child RN - 11/02/2022 2:30 PM EDT Problem: Routine Care: Goal: Patient care will [...] the adult patient will be met 11/02/2022 143 by Jacques Child RN Outcome: Adequate for Discharge 11/02/2022 1430 by Jacques Child RN Outcome: Progressing [id number] Miscellaneous Notes* Care Plan Note - Jacques Child RN - 11/02/2022 2:30 PM EDT Problem: Routine Care: Goal: Patient care will [...] 1430 by Jacques Child RN Outcome: Progressing * Care Plan Note - Archana Albarran RN - 2022 10:44 AM EDT Problem: Routine Care: Goal: Patient care will [...] adult patient will be met Outcome: Progressing * Care Plan Note - Archana Albarran RN - 10/31/2022 6:45 PM EDT Problem: Routine Care: Goal: Patient care will [...] adult patient will be met Outcome: Progressing * AdmissionCare - May Baires APRN-CNP - 10/31/2022 6:37 PM EDT AdmissionCare Guideline: Chemotherapy, Side Effects, Observation Based on the indications selected for the patient, the bed status of Admit to Observation was determined to be MET The following indications were selected as present at the time of evaluation of the patient: - Abnormal blood counts (eg, anemia, thrombocytopenia, neutropenia) AdmissionCare documentation entered by: May Baires [facility], 26th edition, Copyright 2021 [facility] [place] All Rights Reserved. [id number]:45-04:00 documented in this [id number] Hospital course Narrative* Jameson Renae MD - 11/02/2022 6:41 AM EDT Images from the original note were not included. DISCHARGE SUMMARY [address] [address] Amber Maldonado Date of : 1960 62 [...] Department Center 11/02/2022 2:40 PM TRILOGY RadOnc [facility] 11/03/2022 2:40 PM TRILOGY RadOnc [facility] 11/06/2022 2:20 PM TRILOGY RadOnc [facility] 11/07/2022 2:20 PM TRILOGY RadOnc [facility] 11/08/2022 2:20 PM TRILOGY RadOnc [facility] 11/09/2022 1:30 PM Dana Ordonez APRN-PODIATRIST ASSISTANT ONC PALLIATI [facility] 11/09/2022 2:20 PM TRILOGY RadOnc [facility] 11/10/2022 2:20 PM TRILOGY RadOnc [facility] 11/13/2022 10:30 AM [place] APRN-LABOR SERVICE REPRESENTATIVE OncMed [facility] 11/13/2022 11:00 [facility]/13/2022 2:20 PM TRILOGY RadOnc [facility] 11/14/2022 2:20 PM TRILOGY RadOnc [facility] 11/15/2022 2:20 [facility] 11/16/2022 2:20 PM TRILOGY RadOnc [facility] 11/17/2022 2:20 PM TRILOGY RadOnc [facility] 11/20/2022 2:20 PM TRILOGY RadOnc [facility] 11/21/2022 2:20 PM [facility]Y [facility] 11/22/2022 2:20 PM TRILOGY RadOnc [facility] 11/23/2022 2:20 PM TRILOGY [facility] 11/24/2022 2:00 PM [employer] [facility] 11/24/2022 2:20 PM TRILOGY [facility] 06/15/2023 10:00 AM [employer] Clinical Rehabilitation Specialist MAMI COLON Condition at Discharge improved Activity [...] MCV RDW Plt PT aPTT INR 11/01/22 030 0.8 3.15 11.1 32.7 104 [...] therapy for severe neutropenia and stated fever overlast 3 days, admitted for febrile neutropenia and [...] previous treatments or medications that are discontinued, Discussionof post- hospital day-to-day care needs, and Follow-up plans, and warning signs that should prompt more urgent follow-up Current Discharge Medication List START taking these medications Details oxyCODONE 5 MG immediate release tablet Take 2 Tablets by mouth every 4 hours as needed for up to 3days. Qty: 36 Tablet, Refills: 0 Associated Diagnoses: Anal squamous cell carcinoma (HCC) ciprofloxacin (CIPRO) 500 MG tablet Take 1 Tablet by mouth 2 times daily for 5 days. Qty: 10 Tablet, Refills: 0 naloxone 4 mg/0.1 mL nasal liquid Use 1 [place] in one nostril (alternate sides) as needed [...] Tablet by mouth every 12 hours as neededfor Nausea. Qty: 30 Tablet, Refills: 3 Associated [...] discharge and transfer paperwork. documented in this [id number] Plan of care note* Care Plan Note - Archana Albarran RN - 2022 10:44 AM EDT Problem: Routine Care: Goal: Patient care will [...] adult patient will be met Outcome: Progressing [id number] Consult note* Alta Butt RD - 2022 10:30 AM EDTAssociated Order(s): NUTRITION NEW CONSULT Images from the original [...] % Nutrition Focused Physical Exam: Muscle loss: Pentecostal region: slight depression Clavicle region: not visible/not prominent Scapula region: no depressions Hand: muscle bulges Anterior thigh: well rounded Posterior calf: well developed Fat loss: Orbital region: slightly dark douglas/somewhat hollow look Tricep/bicep region: some depth pinch/not ample Rib/back region: chest full/ribs do not show Edema: none Skin/Nails/Hair: intact, wnl Eyes/Nose/Mouth: RA Bms / x1 Meds: colace, pepcid, zofran prn, oxycodone prn Current diet order: Regular PO intake 50-75% Est needs: 7748-8719 kcal/d 25-30 kcal/kg (MSJ 1356 kcal) 70-90 g pro/d 1.0-1.3 g/kg 1700 ml/d 25 ml/kg Assessment: 62 year old female with PMHx of past smoker, COPD, GERD, MDD, KLEBER, anal SCC presents from radiationtherapy for severe neutropenia. Admitted for febrile neutropenia [...] oncology RD Alta Butt RD Personal Pager: [phone] On-Call Nutrition Pager: [phone] Dietitian vs DietaryTech: Dietitian and Ship Engineer [employer] Work Phone: 1([phone] 783-309107-26-2023 Consult note* Alta Butt RD - 2022 10:30 AM EDTAssociated Order(s): NUTRITION NEW CONSULT Images from the original [...] WBC RBC Hgb Hct MCV RDW Plt 11/01/22302 0.8 3.15 11.1 32.7 104 13.3 36 10/31/22 1351 1.0 3.48 12.1 35.7 103 13.3 41 10/03/22 1158 6.5 4.40 15.5 45.7 104 14.0 149 Basic Metabolic Panel Na K Cl CO2 Gap Glu BUN Cr Ca Mg PO4 11/01/22302 135 4.2 108 17 14 112 14 1.10 8.3 11/01/22 0303 2.8 11/01/223 3.5 10/31/22 1351 1.6 10/31/22 1351 134 [...] % Nutrition Focused Physical Exam: Muscle loss: Pentecostal region: slight depression Clavicle region: not visible/not prominent Scapula region: no depressions Hand: muscle bulges Anterior thigh: well rounded Posterior calf: well developed Fat loss: Orbital region: slightly dark douglas/somewhat hollow look Tricep/bicep region: some depth pinch/not ample Rib/back region: chest full/ribs do not show Edema: none Skin/Nails/Hair: intact, wnl Eyes/Nose/Mouth: RA Bms 10/31 x1 Meds: colace, pepcid, zofran prn, oxycodone prn Current diet order: Regular PO intake 50-75% Est needs: 2935-4961 kcal/d 25-30 kcal/kg (MSJ 1356 kcal) 70-90 g pro/d 1.0-1.3 g/kg 1700 ml/d 25 ml/kg Assessment: 62 year old female with PMHx of past smoker, COPD, GERD, MDD, KLEBER, anal SCC presents from radiationtherapy for severe neutropenia. Admitted for febrile neutropenia [...] oncology RD Alta Butt RD Personal Pager: [phone] On-Call Nutrition Pager: [phone] Dietitian vs DietaryTech: Dietitian and Ship Engineer * Carmine Vera, - 2022 7:31 AM EDTAssociated Order(s): IP HEMATOLOGY-ONCOLOGY CONSULT Images from the [...] 3 days. Had some episodes of diarrhea. Shewas admitted and started on IV fluids and vancomycin and cefepime. Patient currently feels much better today. No complaints at this time. Heme/Onc history Per patient was diagnosed in the mid- and was treated with creams in [place] 09/05/17 Endocervical curetting: -Low grade squamous intraepithelial [...] effect, and marked hype rparakeratosis. CT 10/03/22 1. Squamous cell carcinoma of [...] 07/15/2021 Added automatically from request for surgery [id number] Vitamin D deficiency 12/19/2011 Past Surgical History [...] Other (DCIS) Sister Social History Lives in [place] with Social History Socioeconomic History Marital status: [...] 10 min Stress: Stress Concern Present (10/12/2022) [place] [employer] - Occupational Stress Questionnaire Feeling of Stress : Rather much Social Connections: Unknown (10/12/2022) Social Connection and Isolation Panel [NHANES] Frequency of Communication with Friends and Family: Three times a week Frequency of Social Gatherings with Friends and Family: Patient refused Attends Spiritism Services: Patient refused Active Member of Clubs [...] (36.9 C) (Oral) Resp 18 Ht 6' (1.829m) Wt 153 lb (69.4 kg) SpO2 94% [...] obtained the cano and critical portions of thehistory and physical exam on 2022. I reviewed [...] Oncology 11/02/2022 11:20 AM documented in this [id number] History of Present illness Narrative* Archana Albarran RN - 2022 9:[address] Renae notified of critical Platelet count and WBC value of 36 read back critical results. New orders received. notified of critical wbc value of 0.8. read back critical results. New orders received. * Autumn Trujillo [facility] - 2022 9:00 AM EDT Pharmacokinetic Dosing Service - VANCOMYCIN Name: Amber [...] every 12 hours to begin on 11/01 @1100.The next vancomycin level is due before the [...] clearance: 56.61 mL/min Culture(s): PENDING Autumn Trujillo [facility] - Department of Pharmacy Services * Jameson Renae MD - 2022 6:18 AM EDT Images from the original note [...] (37.3 C) (Oral) Resp 18 Ht 6' (1.829m) Wt 153 lb (69.4 kg) SpO2 98% [...] therapy for severe neutropenia and stated fever overlast 3 days, admitted for febrile neutropenia and [...] Renae MD Internal Medicine Attending Physician Pager [phone] * Kelsey Dennison [facility] - 10/31/2022 8:42 PM EDT Pharmacy Renal Dosing Service Name: Amber Maldonado [...] been updated per consult agreement. Kelsey Dennison [facility] Department of Pharmacy Services * Kelsey Dennison RP - 10/31/2022 8:40 PM EDT Pharmacokinetic Dosing Service - VANCOMYCIN Initial Dosing [...] 49.67 mL/min (A) Culture(s): PENDING Kelsey Dennison [facility] - Department of Pharmacy Services documented in this [id number] Consult note* Carmine Vera DO - 2022 7:31 AM EDTAssociated Order(s): IP HEMATOLOGY-ONCOLOGY CONSULT Images from the [...] 3 days. Had some episodes of diarrhea. Shewas admitted and started on IV fluids and vancomycin and cefepime. Patient currently feels much better today. No complaints at this time. Heme/Onc history Per patient was diagnosed in the mid-1999s and was treated with creams in [place] 09/05/17 Endocervical curetting: -Low grade squamous intraepithelial [...] effect, and marked hype rparakeratosis. CT 10/03/22 1. Squamous cell carcinoma of [...] 07/15/2021 Added automatically from request for surgery [id number] Vitamin D deficiency 12/19/2011 Past Surgical History Past Surgical History: Procedure Laterality Date BIOPSY, RECTAL N/A 08/28/2022 Procedure: BIOPSY, RECTAL, ANAL MASS BIOPSY; Surgeon: Ysoelin Padron MD; Location: PERIOPERATIVE SERVICES; Service: General COLECTOMY open, for diverticulitis EUA, RECTAL N/A 07/19/2021 Procedure: EUA, anal mass biopsies; Surgeon: Yoselin Padron MD; Location: PERIOPERATIVE SERVICES; Service: General Family History Family History Problem Relation Age of Onset Other (DCIS) Sister Social History Lives in [place] with Social History Socioeconomic History Marital status: [...] 10 min Stress: Stress Concern Present (10/12/2022) [place] [employer] - Occupational Stress Questionnaire Feeling of Stress : Rather much Social Connections: Unknown (10/12/2022) Social Connection and Isolation Panel [NHANES] Frequency of Communication with Friends and Family: Three times a week Frequency of Social Gatherings with Friends and Family: Patient refused Attends Spiritism Services: Patient refused Active Member of Clubs [...] (36.9 C) (Oral) Resp 18 Ht 6' (1.829m) Wt 153 lb (69.4 kg) SpO2 94% [...] obtained the cano and critical portions of thehistory and physical exam on 2022. I reviewed [...] Division Hematology / Oncology 11/02/2022 11:20 AM [id number] History and physical note* Souleymane Whitley PA-C - 10/31/2022 7:13 PM EDT Images from the original note were not included. GENERAL MEDICAL FLOOR HISTORY AND PHYSICAL Amber Maldonado [id number] [id number] 10/31/2022 Length of stay: 1 day(s) [...] 07/15/2021 Added automatically from request for surgery [id number] Vitamin D deficiency 12/19/2011 Social History: Social [...] Tablet by mouth every 12 hours as neededfor Nausea. 30 Tablet 3 capecitabine (XELODA) 500 [...] (36.9 C) (Oral) Resp 18 Ht 6' (1.829m) Wt 153 lb (69.4 kg) SpO2 100% [...] Non-distended, no ecchymosis, active bowel sounds, soft, non- tender to palpation of all 4 quadrants Lymph: [...] Code Status: Full Code Souleymane Whitley PA-C [facility] Medicine Associated attestation - Jameson Renae [...] updated assessment and plan. Jameson Renae MD [id number] History and physical note* Souleymane Whitley PA-C - 10/31/2022 7:13 PM EDT Images from the original note were not included. GENERAL MEDICAL FLOOR HISTORY AND PHYSICAL Amber Maldonado [id number] AC3-503/1 10/31/2022 Length of stay: 1 day(s) [...] 07/15/2021 Added automatically from request for surgery [id number] Vitamin D deficiency 12/19/2011 Social History: Social [...] Tablet by mouth every 12 hours as neededfor Nausea. 30 Tablet 3 capecitabine (XELODA) 500 [...] (36.9 C) (Oral) Resp 18 Ht 6' (1.829m) Wt 153 lb (69.4 kg) SpO2 100% BMI 20.75 kg/m No intake or output data in the 24 hours ending 10/31/22 1913 PHYSICAL EXAM: General: Awake, alert, oriented. Sitting [...] Non-distended, no ecchymosis, active bowel sounds, soft, non- tender to palpation of all 4 quadrants Lymph: [...] Code Status: Full Code Souleymane Whitley PA-C [facility] Medicine Associated attestation - Jameson Renae [...] plan. Jameson Renae MD documented in this [id number] Plan of care note* Care Plan Note - Archana Albarran RN - 10/31/2022 6:45 PM EDT Problem: Routine Care: Goal: Patient care will [...] adult patient will be met Outcome: Progressing [id number] Note* AdmissionCare - May Baires APRN-CNP - 10/31/2022 6:37 PM EDT AdmissionCare Guideline: Chemotherapy, Side Effects, Observation Based on the indications selected for the patient, the bed status of Admit to Observation was determined to be MET The following indications were selected as present at the time of evaluation of the patient: - Abnormal blood counts (eg, anemia, thrombocytopenia, neutropenia) AdmissionCare documentation entered by: May Baires [facility], 26th edition, Copyright [address] [facility] All Rights Reserved. [id number]:37:45-04:00 [id number] History of Present illness Narrative* Dana Ordonez, CARLOTTA JEAN-BAPTISTE - 10/19/2022 1:31 PM EDT Images from the original note [...] SUPPORT SYSTEM: Live at home with dafne Santosh 2 children 38 year old - [place] (first grandchild due in 4 weeks -- will be girl) 36 year old lives in [place] --- Deven and Boris Cueva Pat - sister - coming to stay for a bit Advanced Directives: Code status - FULL CODE Living will/DPOA- - Len - primary \OARRS was reviewed today. Additional [...] [facility] policy) No 5. Consider consult to neurology specialist. Referral to addiction medicine specialist is notindicated. Patient was advised that controlled substances may [...] 07/15/2021 Added automatically from request for surgery [id number] Vitamin D deficiency 12/19/2011 Surgical Review of [...] 10 min Stress: Stress Concern Present (10/12/2022) [place] [employer] - Occupational Stress Questionnaire Feeling of Stress : Rather much Social Connections: Unknown (10/12/2022) Social Connection and Isolation Panel [NHANES] Frequency of Communication with Friends and Family: Three times a week Frequency of Social Gatherings with Friends and Family: Patient refused Attends Spiritism Services: Patient refused Active Member of Clubs [...] hospital encounter of 10/03/22 (from the past 03851 hour(s)) HEPATIC FUNCTION PANEL Collection Time: 10/03/22 [...] and make Santosh her HCPOA. AYANNA Oropeza * RachaelMarnie robleshector - 10/19/2022 1:24 PM EDT .Patient was identified by name and date of . Alida Cano .Patient at risk for falls:No Falls Risk protocol implemented: No documented in this [id number] Note* Addendum Note - Ky Vegas APRN-CNS - 10/16/2022 5:00 PM EDTEncounter addended by: Donald Vegas APRN-CNS on: 10/16/2022 5:00 PM Actions taken: Clinical Note Signed [id number] Miscellaneous Notes* Addendum Note - yK Vegas APRN- CNS - 10/16/2022 5:00 PM EDTEncounter addended by: Ky Vegas APRN-CNS on: 10/16/2022 5:00 PM Actions taken: Clinical Note Signed documented in this [id number] History of Present illness Narrative* Lyn Baum RN - 10/16/2022 1:44 PM EDT Patient was identified by name and date of . Lyn Baum RN Patient at risk for falls:No Falls Risk protocol implemented: N/A Perianal mass (Primary Diagnosis) [683522] Anal cancer (HCC) [829237] Encounter for antineoplastic chemotherapy [V58.11.ICD-9-CM] Pt presented [...] call with questions during office hours and non- office hours. 22 g x 1 in angio [...] home. Lyn Baum RN documented in this [id number] Hospital Discharge instructions* Patient Instructions* Lyn Baum RN - 10/16/2022 12:02 PM EDT Please get labs prior to 11/13/22 appt. No appt needed for labs if going to an outpatient lab. Labs needed are CBCD, BMP, Hepatic and Mag Pre-infusion labs The majority of cancer infusions will require labs the day before the infusion It is a requirement to have these labs drawn at any [facility] lab BEFORE your scheduled appointment. This will [...] talk to your treatment nurse or call [phone] Lab Locations (recommend calling prior to confirm open hours as these are subject to change) Main [place]: [phone]. Sunday-Sunday 7AM - 545PM [place]: [phone]. [phone]. Mondays 830AM - 530PM. 830AM - 530PM. Sunday of the month 830AM - 1230PM [place]: [phone]. Sunday - Sunday 8AM - 5PM [place]: [phone]. [phone]. Sunday - Sunday 830AM - 730PM. Sunday 830AM - 4PM. Sunday 10AM - 2PM [place]: [phone]. [phone]. Sunday - Sunday 730AM - 5PM [place]: [phone]. [phone]. Sunday - Sunday 730AM - 730PM. Sunday 730AM - 4PM [place]: [phone]. [phone]. Sunday - Sunday 730AM - 5PM [place] (150): [phone]. [phone]. Sunday - Sunday 730AM - 730PM. Sunday 8AM - 4PM. Sunday 10AM-2PM If you are unsure, or have any questions, please ask! [facility] Care Staff : [phone] * Attachments The following attachments cannot be sent through Care Everywhere. * MitoMYcin (Systemic), ADULT (Croatian) documented in this [id number] History of Present illness Narrative* Andrea Kaur - 10/16/2022 10:18 AM EDT Patient was identified by name [...] (69.4 kg), SpO2 98 %. Andrea Marquez * Ky Vegas APRN-LABOR SERVICE REPRESENTATIVE - 10/16/2022 9:16 AM EDT Images from the original note were not included. [facility] Name: Amber Maldonado Medical Oncologist: Dr. Smith Date of Service: 10/16/2022 Referral: No referring provider defined for this encounter. PCP: No primary care provider on file. 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 CT 10/03/22 1. Squamous cell carcinoma of [...] 07/15/2021 Added automatically from request for surgery [id number] Vitamin D deficiency 12/19/2011 Treatment of excessive [...] 10 min Stress: Stress Concern Present (10/12/2022) [place] [employer] - Occupational Stress Questionnaire Feeling of Stress : Rather much Social Connections: Unknown (10/12/2022) Social Connection and Isolation Panel [NHANES] Frequency of Communication with Friends and Family: Three times a week Frequency of Social Gatherings with Friends and Family: Patient refused Attends Spiritism Services: Patient refused Active Member of Clubs [...] for infection; diarrhea; mucositis; 30% risk alopecia; naoecf-ykpixqy-nunrmffjnykzwdchjc; rare neurologic changes; nausea and vomiting; anorexia and dysguesia; dermatitis and dry skin; cardiac problems including CAD vasospasm and chest pain; hepatic and renal dysfunction; and rarely treatment-related . Not being treated with anti-cancer therapy is an option. The majority of the diarrhea is related to radiation and can be controlled with imodium; fatigue isvery common. I reviewed her condition, stable to start cape + mitomycin and radiation today. Reiterated possibleside effects, reviewed her baseline condition, and discussed treatment plan. Plan/orders: - continues RXT daily for 5 weeks - mitomycin on day 29 - cape 1500mg BID from Mon to Fri x 5 weeks: I will confirm it with Dr. Smith. - reviewed labs - discussed Hope Amlin in 3-4 week due to possible fatigue [...] - including independent interpretation of results when notreported separately) Charting in [facility] GIRISH Bueno 10/16/2022 3:56 PM documented in this [id number] History of Present illness Narrative* Camron Roque PharmD - 10/12/2022 9:36 AM EDT Chemotherapy Education Note Amber Maldonado is a [...] with Amber. Administration, handling and storage requirements werediscussed with the patient. I Discussed all premedications and supportive care medications with thepatient. The patient was informed of the following [...] plan Camron Roque PharmD Oncology Specialty Pharmacist [id number] Date: 10/12/22 * Naheed Vinson CPhT - 10/12/2022 9:12 AM EDT Xeloda prescription on file and can be filled here at our [facility] with a $11.16 co-pay. Medication is ready at [facility] for patient hop picker, at their request. Thank you for this referral, Naheed Vinson CPhT * Camron Roque, Jeimy - 10/06/2022 10:15 AM EDT Images from the original note were not included. [facility] Referral (New) [facility] received a prescription for capecitabine (Xeloda) for this patient on 10/10/2022. [facility] has been contacted to initiate a Prior Authorization for this medication. This is an antineoplastic therapy. Patient Information: Amber Maldonado is a 61 year old female [address] [place] [address] Insurance on file: None Specialty Medication Medication and dosing: capecitabine (XELODA) 500 MG tablet- Take 3 tablets (1500 mg) by mouth in twice a day, 12 hours apart on each day radiotherapy is given, Sunday through Sunday. Doses should be taken with water within 30 minutes after a meal. Swallow tablets whole. Avoid cutting or crushing tab lets.(825mg/m2/dose). Indication for treatment (ICD-10): Perianal mass [K62.89] Ordering and Authorizing Provider: Rosemarie Smith MD [address] [place] [address] Supporting Clinical Information: Progress Notes 10/03/2022 (Dr. [...] Tablet Active 10 MG PO Daily October 12:00am, Disp: , Rfl: hydrOXYzine pamoate (VISTARIL) [...] 70 mL, Intravenous Push, One Time Dose, Mahesh Ramos MD, PhD Clinically Significant Drug-Drug interactions: [...] spike protein, LNP, pres. free, 30mcg/0.3mL dose (HUE=278) 07/23/2020, 08/09/2020 Pertinent Labs: CBC WBC RBC [...] based on creatinine of 1.13 on 10/03/2022 usingactual weight 69.6 kg (IBW 73.1 kg ignored) [...] Monitor for signs/symptoms of diarrhea, dehydration, hand-foot syndrome,new or worsening serious skin reactions (eg, Yee-Fredy syndrome, toxic epidermal necrolysis),stomatitis, hepatotoxicity, nephrotoxicity, and cardiotoxicity. Promptly evaluate any symptoms suggestive of cardiotoxicity. Consider monitoring ECG in patients on concomitant QT- prolonging medications. Monitor adherence. Assessment: Patient with anal cancer starting concurrent chemo/RT. Plan to start RT 10/18. medication(s) are clinically appropriate PLAN: - Will submit to insurance for prior authorization - Pharmacy will update on progress in this encounter as updates are available. - Patient will be educated by pharmacist once medication is approved. Questions for [facility] may be directed to [phone] option 3. Thank you for the referral, Camron Roque PharmD Oncology Specialty Pharmacist [phone] [id number] documented in this [id number] Telephone encounter Note* Telephone Encounter - Jennifer Nash BSN - 10/11/2022 3:03 PM EDT Patient called for Mychart help. Provided patient with her mychart activation code. ELYSE Cárdenas RNN, MEd, CHFN, RN-BC, [facility] Geothermal Operations Manager [facility] [phone] [facility] Work Phone: [phone]) [phone] Miscellaneous Notes* Telephone Encounter - Jennifer Nash BSN - 10/11/2022 3:03 PM EDT Patient called for Mychart help. Provided patient with her mychart activation code. Jennifer Nash RN BSN, MEd, CHFN, RN-BC, [facility] Geothermal Operations Manager [facility] [phone] documented in this [id number] History of Present illness Narrative* Jana Veloz RN - 10/06/2022 9:22 AM EDT Patient receiving a CT Simulation for anal [...] Inclusion of Race in Diagnosing Kidney Disease. AmericanJournal of Kidney Diseases 2021;79(2):268-88.e1. 2. N Engl J Med 2020 Vol. 385 Issue 19 Pages 2325-0795 Patient educated on side effects. Patient taken to CT, placed in position by radiation therapist. Once in position, IV flushed with 10 mL NS then hooked up to IV #22 in left forearm contrast. Patient was assessed for a reaction aftercontrast administered. CT Simulation completed, IV was flushed with 10 mL NS. Pt tolerated procedure well. No reaction. All questions and concerns addressed about chemoradiation. She is aware that someone from Dr Smith team will be contacting her about chemotherapy schedule. Pt aware to push oral hydration for the next 24 hrs. documented in this [id number] Evaluation note* Diagnosis Anal squamous cell carcinoma (HCC)- Primary Malignant neoplasm of anus, unspecified site Body mass index (BMI) 20.0-20.9, adult documented in this encounter [id number] History of Present illness Narrative* Leticia Holden [...] None. Leticia Holden RN documented in this [id number] History of Present illness Narrative* Rosemarie Smith MD - 10/03/2022 10:05 AM EDT Referral: Yoselin Padron MD [address] [place] [address] PCP: No primary care provider on file. 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 F/u prn Rosemarie Smith MD documented in this [id number] History of Present illness Narrative* Jana Veloz, [...] altertion in sleep pattern d/t stress PAIN: 10 anal pain. Co itching and burning-using Lidocaine 1-2 times a day to anus EMOTIONAL/MENTAL: Appropriate coping SURGICAL/OTHER DISEASE HISTORY: 08/28/22 anal bx Past Medical History: Diagnosis Date Anxiety Depression with anxiety 08/25/2022 Diverticulitis of large intestine with abscess without bleeding 08/17/2016 Heavy tobacco smoker >10 cigarettes per day 08/17/2016 Perianal mass 07/15/2021 Added automatically from request for surgery [id number] Vitamin D deficiency 12/19/2011 Review of patient's past surgical history indicates: COLECTOMY open, for diverticulitis EUA, RECTAL (07/19/2021) Procedure: EUA, anal mass biopsies; Surgeon: Yoselin Padron MD; Location: PERIOPERATIVE SERVICES; Service: General BIOPSY, RECTAL (08/28/2022) Procedure: BIOPSY, RECTAL, ANAL MASS BIOPSY; Surgeon: Yoselin Padron MD; Location: PERIOPERATIVE SERVICES; Service: General CHEMOTHERAPY DRUGS: 5FU cream 2016 PREVIOUS RADIATION THERAPY: Denies GANG PUNCH OPERATOR HISTORY: Onset of menopause 14-15 years ago [...] Other (DCIS) Sister LIVING ARRANGEMENTS: lives with dafne Pt here to discuss radiation therapy for [...] kg), SpO2 97 %. ABDI Coello * Mahesh Ramos MD, PhD - 10/03/2022 9:00 AM [...] The patient's case was discussed at the [facility] multidisciplinary GI tumor board, with the recommendation of concurrent chemoradiation. There has been no imaging, with a CT of the chest abdomen and pelvisto be done later today, at the [facility] in [place]. The patient has been seen by Dr. [...] 07/15/2021 Added automatically from request for surgery [id number] Vitamin D deficiency 12/19/2011 Past Surgical History: [...] PELVIS W CONTRAST IV only 08/17/16 Order: [id number] Narrative PROCEDURE: CT SCAN OF ABDOMEN AND [...] 17:14 Last Resulted: 08/17/16 17:23 Received From: [facility] Result Received: 06/14/22 14:02 Pathology: Case Report Surgical Pathology Report Case: [id number] Authorizing Provider: Yoselin Padron MD Collected: 08/28/2022 1324 Ordering Location: [facility] OR Received: 08/29/2022 0964 Pathologist: Francoise Mcallister MD Specimens: A) - [...] hyperparakeratosis. Case Report Surgical Pathology Report Case: [id number] Authorizing Provider: Yoselin Padron MD Collected: 07/19/2021 1112 Ordering Location: [facility] OR Received: 07/20/2021 1003 Pathologist: Georgina [...] into rectum. No vaginal involvement, confirmed by GANG PUNCH OPERATOR. cT3N0, CT pending later today. Pelvic exam deferred, no involvement per GANG PUNCH OPERATOR evaluation. Assessment/Plan: 61-year-old female with a T3N0M0 [...] participate in the care of this patient. Executive Team Leader was done with voice recognition, all errors may not have been detected and corrected. documented in this [id number] Telephone encounter Note* Telephone Encounter - Ky Vegas APRN-CNS - 10/02/2022 2:36 PM EDT Ms. Maldonado appreciated to reschedule an appt with Dr. Smith from 10/04 to 10/03. GIRISH Bueno 10/02/2022 2:37 PM [facility] Phone: [phone] Miscellaneous Notes* Telephone Encounter - Ky Vegas APRN-CNS - 10/02/2022 2:36 PM EDT Ms. Maldonado appreciated to reschedule an appt with Dr. Smith from 10/04 to 10/03. GIRISH Bueno 10/02/2022 2:37 PM documented in this [id number] History of Present illness Narrative* Rosemarie Smith MD - 09/27/2022 2:18 PM EDT Called patient re: chemoRTx for likely kly stage I anal documented in this [id number] Telephone encounter Note* Telephone Encounter - Alejandra Flowers RN - 09/26/2022 2:51 PM EDT Pt called requesting update regarding Tumor Board meeting and pt's treatment plan. Please return pt's phone call. Ok to leave detailed message on pt's voicemail. Thanks. [id number] Miscellaneous Notes* Telephone Encounter - Alejandra Flowers RN - 09/26/2022 2:51 PM EDT Pt called requesting update regarding Tumor Board meeting and pt's treatment plan. Please return pt's phone call. Ok to leave detailed message on pt's voicemail. Thanks. * Telephone Encounter - Vito, Yoselin Oejda MD - 09/08/2022 1:44 PM EDT I [...] recommendations. Yoselin Padron MD documented in this [id number] Telephone encounter Note* Telephone Encounter - Yoselin [...] her with those recommendations. Yoselin Padron MD [id number] Miscellaneous Notes* Telephone Encounter - Vito, Yoselin [...] recommendations. Yoselin Padron MD documented in this [id number] Telephone encounter Note* Telephone Encounter - Vito, Yoselin Ojeda MD - 09/06/2022 2:51 PM EDT Attempted to reach Ms. Maldonado to give her the path results from her surgery on 08/28/2022 but her voicemail is full. Yoselin Padron MD [id number] Miscellaneous Notes* Telephone Encounter - Vito, Yoselin Ojeda MD - 09/06/2022 2:51 PM EDT Attempted to reach Ms. Maldonado to give her the path results from her surgery on 08/28/2022 but her voicemail is full. Yoselin Padron MD documented in this [id number] Hospital Discharge instructions Follow Up Care 05/19/2022 10:32:22 With:Nahum Jones Address: [facility] [place] [address] [phone] Fax Business (1) When: Unknown Comments:[facility]ct [facility]. f/u with Dr. España and me same day after this MRI and PET/CT. [facility]08-27-2022 Progress note Author Penelope Eiwng [facility] December 03, 2021 1:07pmNote Date/TimeAugust 2021 2:41pmUt [facility] at [address] [address] Hem/Onc Follow Up Note - OP Signed Patient: Amber Maldonado MR#: [id number] : 1960 Acct:[id number] Age/Sex: 61 / F Type: REG RCR Copies to: MD Lizbeth Wyman, RUBIN Padron, Yoselin~ Subjective Date/Time of Service: Date of Service: [...] to review recommendations from GI tumor board [facility]. Patient was originally to be referred to Dr. Alcides Zuniga for surgical evaluation but recommendation was tosend to Dr. Gracy Murphy for evaluation and office anoscopy. Holding PET/CTat this time. Evaluate for potential wide local excision if anal canal is not involved. May be eligible for clinical trial. [facility] Radiation oncology Dr. España was [...] a 60-year-old lady who presents referred from [facility] for diagnosis of recurrent anal carcinoma. 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 She was referred to Dr. Desean Peng at [facility] and we are requesting original records for [...] or pelvic examination for the last 8 years.Last menstrual period was at age 53 and [...] situ. She then referred the patient to [facility] for anoscopy. Patient has noted some intermittent brightred blood per rectum over stools and also when she is cleaning the area. She does not have any significantdiarrhea or other changes in stools and denies anysignificant pain. She does have a remote history of genital warts and has not received the HPV vaccine. Anal exam at [facility] reported involvement of anal verge, but no anoscopy was reported. DIAGNOSIS: 1. 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 Obtainingoriginal records. 2. 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 Left anal verge: Well-differentiated squamous cell carcinoma, likely invasive in a background ofhigh-grade anal intraepithelial neoplasia/carcinoma in situ (AIN3/CIS) B. [...] carcinoma in situ (obtaining original records from [facility]): Topical chemotherapy cream for 6 months [...] negative for fever or night sweats. 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 HEAD AND NECK: Negative for changes in [...] noted above but no other skin lesions. Norashes. 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 She was referred for anoscopy at [facility] and on pathology review she wasdiagnosed with invasive carcinoma in the setting of AIN 3/BRAULIO on multiple biopsies. On 10/26/2021, she presented for evaluation with medical oncology and radiation oncology to discuss optimal therapy. I sent HIV (not performed) and presented her case in GI oncology tumor board. I am also sending her for GANG PUNCH OPERATOR evaluation to update her Pap smear given prior history of general warts andrecurrent anal cancer. I reviewed prior records from [facility] to determine prior treatment and initial diagnosis. The patient was counseled regarding options of concurrent chemoradiation but [facility] tumor board recommended evaluation by Dr. Gracy Murphy. She saw Dr. Murphy yesterday with recommendation for pelvic MRI with contrast (ordered today) and evaluation underanesthesia with hig h resolution anoscopy. Holding PET/CT at this time. [...] of complex care We discussed patient in [facility] to her tumor board as noted above. [...] for coordination of care (as documented) and ddwo-zl-wyoq counseling of patient and/or family. Dictated By: Penelope Ewing MD DD/ 1440 Signed By: <Electronically signed by MD Penelope Ewing> 12/03/21 1302 [facility] Work Phone: [phone]) 323-250307-27-2022 AmandaTHANG MALDONADO was presented at GI/Esophagus Tumor Board Conference Conference date: 02-Nov-2021 Presenting Provider(s): Dr. Penelope Ewing Referring provider(s): (Self) Presenting location(s): [facility] Conference Review Type: Treatment Planning Impression Review imaging. High grade squamous of perianal skin. No evidence of invasive ca and treated with topical chemo for 6mos and then laser treatments with resolution of symptoms. Has not had any GANG PUNCH OPERATOR eval for approx 8 years. Recent biopsy [...] to colorectal surgery. [facility] wide local resection. Disclaimer SCC tumor [...] of [place]07-20-2022 Consult note Author Penelope Ewing [facility] October 26, 2021 12:16pmNote Date/TimeJuly 2021 8:21[facility] [place] [id number] Hem/Onc Consult Note - OP Signed Patient: Amber Maldonado MR#: [id number] : 1960 Acct:[id number] Age/Sex: 60 / F Type: REG RCR Copies to: RUBIN Belcher MD Norleena Poynter, MD Times, Melissa~ HPI Date/Time of Service: Date of Service: 10/26/2021 Time of Service: 08:20 Referring Provider/PCP: Referring Provider: Yoselin Padron PCP: Lizbeth Penaloza DNP - History of Present Illness Reason for Consultation: Previous diagnosis of perianal cancer (squamous cell carcinoma in situ) that wastreated in [facility] with topical chemotherapy followed by laser treatment. Now has recurrent biopsy-positiveperianal carcinoma with involvement of the distal aspect [...] a 60-year-old lady who presents referred from [facility] for diagnosis of recurrent anal carcinoma. 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 Shewas referred to Dr. Desean Peng at [facility] and we are requesting original records for [...] situ. She then referred the patient to [facility] for anoscopy. Patient has noted some intermittent brightred blood per rectum over stools and also when she is cleaning the area. She does not have any significantdiarrhea or other changes in stools and denies [...] squamous cell carcinoma in situ around 2015 ([facility]). Obtainingoriginal records. 2. 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 Left anal verge: Well-differentiated squamous cell carcinoma, likely invasive in a background ofhigh-grade anal intraepithelial neoplasia/carcinoma in situ (AIN3/CIS) B. [...] carcinoma in situ (obtaining original records from [facility]): Topical chemotherapy cream for 6 months [...] noted above but no other skin lesions. Norashes. No suspicious lesions BACK / SPINE: The [...] CBC, CMP, and HIV prior to initiation oftherapy. - Impressions No outside imaging for review. Discussed with Dr. España who recommended PET/CT for evaluation of distant metastatic disease and potential inguinal adenopathy (nonpalpable by exam) for radiation planning. This was ordered today. Assessment and Plan - TNM Staging Staging: Original diagnosis anal carcinoma in situ (Cross's disease) 6 years ago treated in [place], [place] (records pending) (1) Recurrent anal squamous cell carcinoma This is a 60-year-old lady who recently relocated from [place] who reported a prior history of carcinoma [...] carcinoma. She was referred for anoscopy at [facility] and was found to have invasive carcinoma in the setting of AIN 3/BRAULIO on multiple biopsies. Today she presents for evaluation with radiation oncology to discuss optimal therapy. I am sending HIV and sending up PET/CT with plan to discussin GI oncology tumor board next Sunday. We will determine best approach, likely concurrent chemoradiation after review of PET/CT to exclude metastatic disease. I am also sending her forGYN evaluation to update her Pap smear given prior history of general warts and recurrent anal cancer. I also am requesting prior records from [facility] to determine prior treatment and initial diagnosis. The patient was counseled regarding likely option of concurrent chemoradiation but we will deferchemotherapy counseling until follow-up of her PET/CT and recommendations from [facility] GI tumor board. The patient expressed understanding [...] of complex care Will discuss patient in [facility] to her tumor board as noted above. [...] for coordination of care (as documented) and byhb-rq-xfmh counseling of patient and/or family. Dictated By: Penelope Ewing MD DD/ 9 Signed By: <Electronically signed by MD Penelope Ewing> 10/26/21 1216 [facility] Work Phone: [phone]) 349-252707-20-2022 Consult note Author Jun España [facility] October 26, 2021 10:19amNote Date/TimeJuly 2021 2:39pmUt [facility] [place] [address] Rad Onc Consult Note - OP Signed Patient: Amber Maldonado MR#: [id number] : 1960 Acct:[id number] Age/Sex: 60 / F Type: REG RCR Copies to: MD Lizbeth Reyes DNP Melissa Times, MD Times, Melissa~ Assessment & Plan (1) Anal cancer Plan: 1. PET scan to complete staging and for radiation planning (can be done with CTSim for radiation planning) 2. [facility] tumor board presentation 4. CT simulation with [...] management will require increased time and consideration. Patient'scare will also increase in complexity due to [...] recommendations. She is also been referred to [facility] for a Pap smear. HPI Date of Service: 10/26/21 HPI: 60-year-old female with a history of anal cancer treated with topical agents and laser therapy [id number]. She now presents with a new lesion. Oncologic history as follows:: July 19, 2021 seen at [facility] and was taken to the OR for biopsy. Per the operative note the lesion encompassed the posterior half of the anus extending out 5 cm from the anal verge. Posteriorlythe distal aspect of the anal canal was [...] She denies any pain fromthe anal tumor. [facility] - Medical History Medical History: Medical History (Last Reviewed 10/26/21 @ 08:43 by Peenlope Ewing MD) Anxiety - Surgical History Surgical [...] verge. Digital rectal exam shows normal sphincter tonewith tumor involvement at the very distal aspect of the anal canal. [facility]: Exam shows normal external genitalia. Speculum exam shows vaginal mucosa to be pink and moist without lesion. Unable to visualize the cervix which is within normal limits. Dictated By: Jun España MD DD/ 1436 Signed By: <Electronically signed by Jun España MD> 10/26/21 1019 [facility] Work Phone: [phone]) 261-652606-23-2022 Evaluation note* Encounter Date Diagnosis Assessment Notes Treatment Notes Treatment Clinical Notes Sep, Injury (ICD-10 - T14.90XA) Sep,losed displaced fracture of shaft of fifth metacarpal bone of left hand, initial encounter (ICD-10- S62.327A) XR images and final report reviewed, oblique fracture noted. Area placed in splint today in office,n/v intact after placement. Encouraged RICE therapy discussed- [...] understanding and is agreeable to treatment plan Sep,2Dysuria (ICD-10 - R30.0) Discussed dipstick findings with patient. Will hold off on treatment until culture is back. If positive, will treat with appropriate antibiotic. Advised to increase fluids until results are known. Immediate evaluation in ER for warning signs/symptoms as discussed. Patient verbalizes understanding and is agreeable with treatment plan Sep,2OtherHand fracture home care material was printed [employer] Other 05-25-2022 History of Present illness Narrative* [facility] CRS: Yoselin Padron * [facility]: Penelope Ewing * Amber is a 61 yo female with a history of anal dysplasia s/p topical chemo and lazer sx in 2015 ([place]). She noted a recurrence for the past few months. She felt the lesion in the shower and no associated pain or tenderness. No change in bowel habits. 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 She was seen by Dr. Yoselin Padron at [facility] and was found to have a 7x6cm [...] minutes without stopping. * Colonoscopy 2018 in [place] at [facility] in [place], [place] * Current every day smoker 1ppd/Drinks about 2 drinks daily/No Illicit drug use * PMH: anxiety * PSH: colectomy for diverticulitis in 2016 * NKDA * No family history of CRC or IBD * Employment: Not currently working [id number] Work Phone: [phone]) 186-110405-04-2022 Miscellaneous Notes* Telephone Encounter - Karolina Johnson - 08/10/2021 12:15 PM EDT I have contacted patient to let her know that I have taken her signed medical records release to Medical Records. They will get her records and imaging over to Dr. Jun España for further treatment. Karolina Johnson [place] to Dr. Yoselin Padron Colorectal Surgery documented in this [id number] Miscellaneous Notes* Telephone Encounter - Penelope Guzmán RN - 08/05/2021 11:57 AM EDT Provided pt with information [address] [place] [address] ,[place] [address] Verbalized understanding . Penelope Guzmán RN documented in this [id number] Miscellaneous Notes* Telephone Encounter - Vito, Yoselin Ojeda MD - 07/27/2021 5:47 PM EDT I spoke to Ms. Maldonado about the pathology results which showed invasive squamous cell cancer. I reviewed the diagnosis, staging, and management. She lives in [place] now and is moving to [place]. I suggested Ashlyn/Sunni. I will have our office refer to this [facility] location. She wants to follow up with me after radiation. She needs a CT chest/abd/pelvis for staging which can be done at . Yoselin Padron MD documented in this [id number] Miscellaneous Notes* Telephone Encounter - Yoselin Padron MD - 07/26/2021 5:10 PM EDT Message left for patient regarding pathology results. documented in this [id number] History and physical note* Yoselin Padron MD - 07/19/2021 10:15 AM EDT H&P reviewed. The patient was examined and there are no changes to the H&P. Yoselin Padron MD * Yoselin Padron MD - 07/19/2021 10:06 AM EDT Ms. 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 Yoselin Padron MD documented in this [id number] History of Present illness Narrative* Yoselin Padron MD - 07/19/2021 10:06 AM EDT Ms. 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 [facility] COLORECTAL SURGERY CONSULTATION, HISTORY & [...] EUA, biopsy on Sunday at [facility], d/w Dr. Padron, staff surgeon [...] Risk protocol implemented: No documented in this [id number] Miscellaneous Notes* Anesthesia Attestation - Carlos A Vazquez MD - 07/19/2021 7:00 AM EDT Anesthesia Attestation ATTESTATION OF INFORMED CONSENT FOR ANESTHESIA Anesthesia options were discussed with the patient and/or legal telemarketing sales representative. The risks, benefits and alternatives were reviewed. Questions regarding anesthesia were answered. Patient and/or legal telemarketing sales representative knows such anesthetics and procedures [...] were discussed with the patient and/or legal telemarketing sales representative. The risks, benefits and alternatives were reviewed. Questions regarding blood transfusions were answered. The patient /or the patient s legal telemarketing sales representative agree with the plan for transfusion of blood and/or blood components. documented in this [id number] Miscellaneous Notes* Telephone Encounter - Karolina Johnson [...] stated to call the office Sunday at [phone] after 8:00 am if she had any additional questions about the pse appointment or surgery scheduled for July 19, 2021. Karolina Johnson Heat Treatment Technician to Dr. Yoselin Padron Colorectal Surgery documented in this [id number] Instructions* Patient Instructions* Yoselin Padron MD - 07/15/2021 3:49 PM EDT Date of Surgery: July 19, 2021 You will be called the day before surgery with an arrival time. Fasting Guidelines before Surgery When to stop eating and drinking before surgery [facility] is committed to the health and safety [...] your scheduled surgery time. documented in this [id number] History of Present illness Narrative* Victoriano Chandler [...] a new provider. She recently relocated to [place] from [place] and was seen by Dr. Lizbeth Livingston, [...] Counseling/educating the patient/family/caregiver Referring/communicating with other health wound care specialist - when not reported separately Charting in [...] note No data available for this section [facility] Diagnosis Squamous cell carcinoma of [...] site documented in this [facility] [employer] [employer] Other Evaluation note* Diagnosis Onset Date Resolution Status Anal cancer acuteRecurrent anal squamous cell carcinomachronic [facility] Work Phone: Evaluation note* Diagnosis Onset Date Resolution Status Anal cancer acuteCarcinoma in situ of anal marginchronicCoordination of complex carechronic Recurrent anal squamous cell carcinomachronic [facility] Work Phone: Evaluation note* Diagnosis Perianal mass- [...] in this encounter [facility] noteNo assessment information availableW[facility] Work Phone: Evaluation note* Diagnosis Anxiety Anxiety state, unspecified [facility] Diagnosis Anxiety- Primary Anxiety state, unspecified [facility]* Diagnosis Recurrent anal squamous cell carcinoma (CMS-HCC)- Primary Malignant neoplasm of anus, unspecified site 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 [facility] Diagnosis Recurrent anal squamous cell carcinoma (CMS-HCC)- Primary Malignant neoplasm of anus, unspecified site 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 [facility] Diagnosis Recurrent anal squamous cell carcinoma (CMS-HCC) Malignant neoplasm of anus, unspecified site [facility]* Diagnosis Anxiety Anxiety state, unspecified documented [facility] this encounter [facility]* Diagnosis Anxiety Anxiety state, unspecified documented [facility] encounter [facility]* Diagnosis Anxiety- Primary Anxiety state, unspecified Encounter for screening mammogram for malignant neoplasm of breast Gastroesophageal reflux disease, unspecified whether esophagitis present 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 Depression, unspecified depression type Hypokalemia Hypopotassemia Multiple joint pain Pain in joint, multiple sites documented in this encounter [facility]* Diagnosis Anxiety Anxiety state, unspecified documented [facility]* Diagnosis Welcome to Medicare preventive visit- Primary Need for immunization against influenza Need for prophylactic vaccination and inoculation against influenza Screening for depression Anxiety Anxiety state, unspecified Screening for heart disease Screening for other and unspecified cardiovascular conditions Seizure ([facility]) Other convulsions Thoracic aortic aneurysm without rupture, unspecified part ([facility]) Depression, unspecified depression type Gastroesophageal reflux disease, unspecified whether esophagitis present documented in this encounter [facility]* Diagnosis Anxiety Anxiety state, unspecified documented in this encounter [facility]* Diagnosis Anxiety- Primary Anxiety state, unspecified Depression, unspecified depression type Insomnia, unspecified type Recurrent anal squamous cell carcinoma (CMS-HCC) Malignant neoplasm of anus, unspecified site Thoracic aortic aneurysm without rupture, unspecified part ([facility]) documented in this encounter [facility]* Diagnosis Thoracic aortic aneurysm without rupture, unspecified part documented in this encounter [facility]* Diagnosis Thoracic aortic aneurysm without rupture, unspecified part Abnormal gastrointestinal PET scan- Primary History of carcinoma in situ of anal canal Abnormal findings on diagnostic imaging of other parts of digestive tract [facility] Diagnosis Thoracic aortic aneurysm without rupture, unspecified part Urinary tract infection without hematuria, site unspecified- Primary [facility] Diagnosis Thoracic aortic aneurysm without rupture, unspecified part Dysuria- Primary Right lower quadrant abdominal pain [facility] Diagnosis Thoracic aortic aneurysm without rupture, unspecified part Anxiety Anxiety state, unspecified [facility] Diagnosis Thoracic aortic aneurysm without rupture, unspecified part Anxiety- Primary Anxiety state, unspecified Medication management Depression, unspecified depression type Gastroesophageal reflux disease, unspecified whether esophagitis present documented [facility] this encounter [facility] Diagnosis Thoracic aortic aneurysm without rupture, unspecified part Epigastric pain Abdominal pain, epigastric documented [facility] this [facility] Diagnosis Thoracic aortic aneurysm without rupture, unspecified part Epigastric pain Abdominal pain, epigastric documented [facility]* Diagnosis History of anal cancer- Primary Malignant neoplasm of anus (HCC) Malignant neoplasm of anus, unspecified site [facility]* Diagnosis Thoracic aortic aneurysm without rupture, unspecified part Anxiety Anxiety state, unspecified documented [facility] Diagnosis Thoracic aortic aneurysm without rupture, unspecified part Anxiety- Primary Anxiety state, unspecified Depression, unspecified depression type Seizure (CMS-HCC) Other convulsions Gastroesophageal reflux disease, unspecified whether esophagitis present documented [facility] this encounter [facility] Diagnosis Thoracic aortic aneurysm without rupture, unspecified part Anxiety Anxiety state, unspecified documented in this encounter [facility] System[facility] general Narrative - Reported* Type Description Date Medical History TOPICAL CANCER ON BUTTOCKS Surgical HistoryBOWEL RECONSTRUCTION [employer] Other Hospital Discharge instructions* Instructions* Lizbeth Garcia [...] following surgery. Please call Dr. Padron' office: [phone] to make an appointment at your convenience. For other questions or concerns, please contact Dr. Padron at the number listed below. On weekends or after-hours, call [phone] and ask to speak with the surgery resident nutritionalist Yoselin Padron MD, FACS, FASCRS Colorectal Home Office Claim Specialistbehavioral therapy coordinator, [place] [phone] PERIOPERATIVE DISCHARGE/HOME-GOING INSTRUCTIONS ANESTHESIA - GENERAL (ADULT) If a problem arises, you may contact your physician by calling [phone] and asking for the resident nutritionalist for Colorectal service. Special Care Needs: Activity: [...] very uncomfortable and can t urinate, call [phone] or come to the emergency room. The day after surgery, a nurse will call to check on you. However, if there are any questions or concerns, please call us at the number listed in the home going instructions. [facility] in [facility] Discharge instructionsAmbulatory Orders* Imaging on Disk Time Frame: 1 Day, Location: Determined By Patient [facility] Work Phone: InstructionsNot on filedocumented in this encounter [facility]InstructionsNot on filedocumented in this encounter [facility] SystemInstructionsNot on filedocumented in this encounter [facility] [...] [facility] note Author Penelope Ewing [facility] December 03, 2021 1:07pmNote Date/TimeAugust 2021 2:41pmUt [facility] [place] [address] Hem/Onc Follow Up Note - OP Signed Patient: Amber Maldonado MR#: [id number] : 1960 Acct:[id number] Age/Sex: 61 / F Type: REG RCR [...] [facility] Patient was originally to be referred to Dr. Alcides Zuniga for surgical evaluation but recommendation was tosend to Dr. Gracy Murphy for evaluation and office anoscopy. Holding PET/CTat this time. Evaluate for potential wide local excision if anal canal is not involved. May be eligible for clinical trial. [facility] Radiation oncology Dr. España was [...] a 60-year-old lady who presents referred from [facility] for diagnosis of recurrent anal carcinoma. 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 She was referred to Dr. Desean Peng at [facility] and we are requesting original records for [...] or pelvic examination for the last 8 years.Last menstrual period was at age 53 and [...] situ. She then referred the patient to [facility] for anoscopy. Patient has noted some intermittent brightred blood per rectum over stools and also when she is cleaning the area. She does not have any significantdiarrhea or other changes in stools and denies anysignificant pain. She does have a remote history of genital warts and has not received the HPV vaccine. Anal exam at [facility] reported involvement of anal verge, but no anoscopy was reported. DIAGNOSIS: 1. 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 Obtainingoriginal records. 2. 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 Left anal verge: Well-differentiated squamous cell carcinoma, likely invasive in a background ofhigh-grade anal intraepithelial neoplasia/carcinoma in situ (AIN3/CIS) B. [...] carcinoma in situ (obtaining original records from [facility]): Topical chemotherapy cream for 6 months [...] negative for fever or night sweats. 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 HEAD AND NECK: Negative for changes in [...] chronic Claritin. Denies medication or food allergies. [facility] - History Attestation statement: The following information [...] noted above but no other skin lesions. Norashes. 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 She was referred for anoscopy at [facility] and on pathology review she wasdiagnosed with invasive carcinoma in the setting of AIN 3/BRAULIO on multiple biopsies. On 10/26/2021, she presented for evaluation with medical oncology and radiation oncology to discuss optimal therapy. I sent HIV (not performed) and presented her case in GI oncology tumor board. I am also sending her for [facility]PER[facility] evaluation to update her Pap smear given prior history of general warts andrecurrent anal cancer. I reviewed prior records from [facility] to determine prior treatment and initial diagnosis. The patient was counseled regarding options of concurrent chemoradiation but [facility] tumor board recommended evaluation by Dr. Gracy Murphy. She saw Dr. Murphy yesterday with recommendation for pelvic MRI with contrast (ordered today) and evaluation underanesthesia with hig h resolution anoscopy. Holding PET/CT at this time. [...] of complex care We discussed patient in [facility] to her tumor board as noted above. [...] for coordination of care (as documented) and [id number] counseling of patient and/or family. Dictated By: Penelope Ewing MD DD/ 1440 Signed By: <Electronically signed by MD Penelope Ewing> 12/03/21 1302 [facility] Work Phone: Progress note Author Kahlilangeles España [facility] January 11, 2022 3:51pmNote Date/TimeOct2021 2:36pmUt [facility] [place] [address] Rad Onc Follow Up Note - OP Signed Patient: Amber Maldonado MR#: [id number] : 1960 Acct:[id number] Age/Sex: 61 / F Type: REG RCR Copies to: MD Gracy Reyes MD Jennifer M Kaple, [facility] Date of Service Service Date: 01/11/22 [...] management will require increased time and consideration. Patient'scare will also increase in complexity due to [...] become much worse. While her MRI and pathsupport moving forward with cancer treatment she understands that the recommendations have been forsurgical resection from the tumor board. I again [...] in both short-term and long-term toxicity and smokingcessation resources were reviewed. She understands that continued smoking can result in severe radiationside effects as well as a reduction in local control of their cancer. Follow Up Note - Narrative HPI: 61-year-old female with a history of anal cancer treated with topical agents and laser therapy [id number]. She was originally seen in consultation in mid October 2021. Her case was presented at tumor board and she was sent for consideration of surgical resection. Oncologic history as follows:: July 19, 2021 seen at [facility] and was taken to the OR for biopsy. Per the operative note the lesion encompassed the posterior half of the anus extending out 5 cm from the anal verge. Posteriorlythe distal aspect of the anal canal was [...] resection 5 years ago secondary to diverticulosis. Consequentlyshe has had altered bowel movements since that [...] measuring 6 x 6 mm suspicious for thepatient's primary lesion. No gross invasion is seen. No MRI evidence of local metastatic disease. There wasthickening and abnormal enhancement involving the gluteal creases bilaterally. Today she denies any urinary symptoms no vaginal complaints. She denies any pain from the anal tumor. Patient states she has been providing financial assistance by [facility]. She did not undergo surgery due to lack of insurance she would have to pay 3000 [id number]. Physical exam General: alert and oriented male in no acute distress HEENT: normocephalic, extra ocular movements intact Lungs: normal work of breathing on room air Abdomen: non acute MSK: extremities within normal limits Neuro: grossly intact Lymph: No palpable inguinal lymphadenopathy bilaterally GI: Examination of the perianal area shows tumor/condyloma extending approximately 6 x 8 cm outsidethe anal canal. There is clear involvement of the anal verge. Digital rectal exam questionable for it small palpable abnormality anteriorly at the top of the anal canal. 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 Speculum exam shows vaginal mucosa to be pink and moist without lesion. Able to visualize the cervix which is within normal limits. Dictated By: Jun España MD DD/ 1433 Signed By: <Electronically signed by Jun España MD> 01/11/22 1551 [facility] Work Phone: Progress note No data available for this section [facility] HospitalReason for visit Narrative* Auth/CertSpecialty Diagnoses / ProceduresReferred By ContactReferred To ContactGeneral Surgery Diagnoses Perianal mass Perianal mass [K62.89] Procedures ANORECTAL EXAM, SURGICAL, REQUIRING ANESTHESIA (GENERAL, SPINAL, OR EPIDURAL), DIAGNOSTIC BIOPSY, ANORECTAL WALL, ANAL APPROACH EUA, anal mass biopsies Times, Yoselin Ojeda MD [facility] [place] [address] [facility] [address] [place] [address] Phone: [phone] Referral Dulce DateExpiration DateVisits RequestedVisits [id number] [facility] Advance Directives Advance Directive Response Recorded Date/ Time Advance Directives No December 03, 2018 12:55pm Advance Directive Response Recorded Date/ Time Advance Directives No December 03, 2018 1:55pm TypeDate RecordedPatient RepresentativeExplanationLiving Will10/23/2022 3:19 PM Living WillHealthcare Power of Attorney10/23/2022 3:12 PMHealthcare Power of AttorneyCode StatusDate ActivatedDate InactivatedCommentsFull Code10/31/2022 8:26 PMQuestionAnswerCommentsDocumentation of decision process for this code status: Patient and surrogate unable or unavailable to discuss. There is no previous documentation of code status. Defaulting to Full CodeTypeDate RecordedPatient RepresentativeExplanationLiving Will10/23/2022 3:19 PMLiving WillHealthcare Power of Attorney10/23/2022 3:12 PMHealthcare Power of AttorneyCode StatusDate ActivatedDate InactivatedCommentsFull Code10/31/2022 8:26 PM11/02/2022 5:10 PM QuestionAnswerCommentsDocumentation of decision process for this code status: Patient and surrogate unable or unavailable to discuss. There is no previous documentation of code status. Defaulting to Full CodeCode StatusDate Activated Date InactivatedCommentsFull Code10/31/2022 8:26 PM11/02/2022 5:10 PMQuestion AnswerCommentsDocumentation of decision process for this code status:Patient and surrogate unable or unavailable to discuss. There is no previous documentation of code status. Defaulting to Full CodeDate ActivatedDate InactivatedComments 10/31/2022 8:26 PM11/02/2022 5:10 PMQuestionAnswerCommentsDocumentation of decision process for this code status:* Patient and surrogate unable or unavailable to discuss. There is no previous documentation of code status. Defaulting to Full Code Date ActivatedDate InactivatedComments10/31/2022 8:26 PM11/02/2022 5:10 PMQuestion AnswerCommentsDocumentation of decision process for this code status:* Patient and surrogate unable or unavailable to discuss. There is no previous documentation of code status. Defaulting to Full Code Chief Complaint and Reason for Visit Chief Complaint Shortness of Breath Chief Complaint Shortness of Breath Thyroid Nodule Chief Complaint T14.90XA Squ Cell Carcinoma of Buttock & Perianal areaReason for VisitAnal cancer Recurrent anal squamous cell carcinoma Chief Complaint T14.90XA Squ Cell Carcinoma of Buttock & Perianal areaReason for VisitAnal cancer Carcinoma in situ of anal margin Coordination of complex care Recurrent anal squamous cell carcinoma Chief Complaint Squ Cell Carcinoma o f Buttock & Perianal area Reason for Visit Anal cancer Carcinoma in situ of anal margin Coordination of complex care Recurrent anal squamous cell carcinoma Chief Complaint Unknown Assessments No Assessments Information AvailableNo Assessments Information Available Reason for Referral SpecialtyDiagnoses / ProceduresReferred By ContactReferred To ContactGeneral Surgery Diagnoses Squamous cell carcinoma of perianal region Procedures GENERAL SURGERY SERVICE REQUEST Victoriano Chandler MD [address] [place] [address] Yoselin Padron MD [address] [place] [address] Referral IDStatusTobinStyuly DateExpiration DateVisits RequestedVisits [id number]/30/20229/[id number] / Procedures Referred By ContactReferred To ContactHematology/Oncology Diagnoses Anal cancer (HCC) Anal squamous cell carcinoma (HCC) Yoselin Padron MD [address] [place] [address] [facility] [id number] [place] [address] Phone: [phone] Referral IDStatusEveasonStwest halifax DateExpiration DateVisits RequestedVisits [id number] Transfer of Care-outside, patient preference / Comments This pt is looking for Oncology care in the [facility] and RAD oncology. Needs CT scans Insurance is through [phone] [place] [address] SpecialtyDiagnoses / ProceduresReferred By ContactReferred To ContactPalliative Care Diagnoses Anal squamous cell carcinoma (HCC) Mahesh Ramos MD, PhD [address] [place] [address] [facility] [address] [place] [address] Referral IDStatusReasonStwest halifax DateExpiration DateVisits RequestedVisits [id number]/27/20236/27/202433 Scheduling Instructions Please call the Palliative Care office/clinic at to set up an appointment. QuestionAnswer Reason for Referral Cancer [2] Comments Anal cancer pt that will be getting chemoradiation SpecialtyDiagnoses / ProceduresReferred By ContactReferred To ContactNutrition Diagnoses Anal squamous cell carcinoma (HCC) Mahesh Ramos MD, PhD [address] [place] [address] [facility] [address] [place] [address] Referral IDStatusReasonStwest hal[place] DateExpiration DateVisits RequestedVisits [id number] Consultation-[facility] 020 Scheduling Instructions Please call the Nutrition Clinic at to schedule an appointment if one was not made for you today. QuestionAnswer Please specify primary reason for consult. Oncology Nutrition Comments Most recent visit in Nutrition was on 10/03/2022 with Rosemarie Smith MD SpecialtyDiagnoses / ProceduresReferred By ContactReferred To ContactRadiology Diagnoses Anal cancer (HCC) Procedures CT CHEST/ABD/PELVIS W/ CONTRAST Times, Yoselin Ojeda MD [address] [place] [address] [facility] CT SCAN Referral IDStatusReasonStwest halifax DateExpiration DateVisits RequestedVisits [id number] Transfer of Care-[facility] [id number] / ProceduresReferred By ContactReferred To ContactRadiology Diagnoses Anal squamous cell carcinoma (HCC) Procedures PET SUBSEQ/DIAG CT NCK/CHST/ABD/PEL W/ Mahesh Ramos MD, PhD [address] [place] [address] [facility] PET SCAN [address] [place] [address] Referral IDStatusReasonStart DateExpiration DateVisits RequestedVisits [id number]/30/20238/30/202411 Chief Complaint Anal dysplasia Summary Purpose Family History Relationship Condition Age at Onset Recorded Date/T rayna Not Specified No pertinent family history Unknown fatherMalignant neoplasmUnknownDeceasedUnknownmotherHistory of strokeUnknownNo Family History Records Found Additional Source Comments Reason for Visit (unrecogniz ed section and content) ReasonOnset DateCommentsNo Show01/12/2023SpecialtyDiagnoses / ProceduresReferred By ContactReferred To ContactNutrition Diagnoses Anal squamous cell carcinoma (HCC) Mahesh Ramos MD, PhD [address] [place] [address] [facility] [address] [place] [address] Referral IDStatusReasonStart DateExpiration DateVisits RequestedVisits [id number] Consultation-[facility] /[id number]gyHobhy testSpecialtyDiagnoses / ProceduresReferred By ContactReferred To ContactOncology Medical Diagnoses Perianal mass Rosemarie Smith MD [address] [place] [address] Referral IDStatusReasonStart DateExpiration DateVisits RequestedVisits [id number]/30/202312/296040VaxuckIsgsvbtlZrdddiy with specialistSpecialtyDiagnoses / ProceduresReferred By ContactReferred To Contact Diagnoses VERRICOID CROSS'S DISEASE, RIGHT MEDIAL BUTTOCK Procedures DERMATOLOGY SERVICE REQUEST LVL 3 EST PT, LOW MDM, 20-29 MINUTES Lizbeth Livingston MD [facility] [place] [address] Victoriano Chandler MD [address] [place] [address] [place] [address] Referral IDStatusReasonStart DateExpiration DateVisits RequestedVisits [id number] Transfer of Care-[facility] /[id number] patient, to establish relationship SpecialtyDiagnoses / ProceduresReferred By ContactReferred To ContactGeneral Surgery Diagnoses Squamous cell carcinoma of perianal region Procedures GENERAL SURGERY SERVICE REQUEST Victoriano Chandler MD [address] [place] [address] [place] [address] Yoselin Padron MD [address] [place] [address] Referral IDStatusReasonStart DateExpiration DateVisits RequestedVisits [id number]/30/20229/537388DmrjmuWiuia DateCommentsDiscuss results test/aahqrtkmem43/19/2022ReasonOnset DateCommentsCare Coordination 2ReasonOnset DateCommentsDiscuss results test/vqupnjpyce36/31/2023 ReasonOnset DateCommentsDiscuss results test/xzaoihqcwz56/02/2023ReasonOnset DateCommentsDiscuss results test/qnhzjifuuf03/02/2023iscuss treatment plan 09/08/2022ReasonCommentsConsult with specialistSpecialtyDiagnoses / Procedures Referred By ContactReferred To ContactRadiation Oncology Diagnoses Anal cancer (HCC) Yoselin Padron MD [address] [place] [address] [facility] [address] [place] [address] Referral IDStatusReasonStart DateExpiration DateVisits RequestedVisits [id number] [id number] / ProceduresReferred By ContactReferred To ContactRadiology Diagnoses Anal cancer (HCC) Procedures CT CHEST/ABD/PELVIS W/ CONTRAST Yoselin Padron MD [address] [place] [address] [facility] CT SCAN Referral IDStatusReasonStart DateExpiration DateVisits RequestedVisits [id number] Transfer of Care-[facility] /[id number] coordinationReasonOnset DateComments Specialty Pharmacy Medication Knknol5810/06/2022XelodaReasonCommentsChemotherapy ReasonCommentsMonitoring/follow-upSpecialtyDiagnoses / ProceduresReferred By ContactReferred To ContactPalliative Care Diagnoses Anal squamous cell carcinoma (HCC) Mahesh Ramos MD, PhD [address] [place] [address] [facility] [address] [place] [address] Referral IDStatusReasonStart DateExpiration DateVisits RequestedVisits [id number]/27/20236/27/251900KqmwkwwneSdeiydunl / Procedures Referred By ContactReferred To ContactOncology Medical Diagnoses Neutropenic fever (HCC) Procedures N/A Jameson Renae MD [address] [place] [address] [facility] [address] [place] [address] Phone: [phone] Referral IDStatusReasonStart DateExpiration DateVisits RequestedVisits [id number] careReasonCommentsDehydrationReason Onset DateCommentsNo Show12/20/2022ReasonOnset DateCommentsNo Show12/29/2022 ReasonCommentsRefillReasonOnset DateCommentsSpeak with cdlfxowb56/16/2023Reason CommentsMed Change RequestReasonOnset DateCommentsMed Hvkvpc6404/22/2024Reason Onset DateCommentsMed Xczqaf344ReasonOnset DateCommentsMed Refill 4ReasonCommentsFollow-upUpdate H&P, Colonoscopy [facility] 10/24/23 at [facility]ReasonCommentsMed RefillReasonCommentsFollow-up3 monthReasonOnset Date CommentsMed Cyphgw184ReasonCommentsAnnual ExammedicareReasonComments AnxietyFollow up from MAWReasonCommentsNp-Thoracic aortic aneurysm without rupture, unspecified paNp-Thoracic aortic aneurysm without rupture, unspecified part (CM- [facility] / Procedures Referred By ContactReferred To ContactVascular Surgery Diagnoses Thoracic aortic aneurysm without rupture, unspecified part Gio Mathews, DO [address] [facility] [place] [address] Phone: tel: fax: Brittani Reyes MD [address] [place] [address] Phone: tel:[phone] fax: Referral IDStatusReasonStart DateExpiration DateVisits RequestedVisits [id number] Specialty Services Required 186445LbsttxJgrayrlyMsuoi Cancer ScreeningCOLONOSCOPY, REFERRED BY DR LOWERY, [facility] PET SCAN RESULTS 07/21/2024 IN MEDIAReasonCommentsUrinary Tract InfectionpossibleReasonCommentsUrinary Tract InfectionReasonComments3 month f/u ReasonComments4 month check Care Teams (unrecognized sec tion and content) Team MemberRelationshipSpecialtyStart DateEnd Date Victoriano Chandler MD [address] [place] [address] [place] [address] PhysicianDermatology07/09/21Team MemberRelationshipSpecialtyStart DateEnd Date Victoriano Chandler MD [address] [place] [address] [place] [address] PhysicianDermatology07/09/21Team MemberRelationshipSpecialtyStart DateEnd Date Victoriano Chandler MD [address] [place] [address] [place] [address] PhysicianDermatology07/09/21Team MemberRelationshipSpecialtyStart DateEnd Date Victoraino Chandler MD [address] [place] [address] [place] [address] PhysicianDermatology07/09/21Te MemberRelationshipSpecialtyStart DateEnd Date Victoriano hCandler MD [address] [place] [address] [place] [address] PhysicianDermatology07/09/21Te MemberRelationshipSpecialtyStart DateEnd Date Victoriano Chandler MD [address] [place] [address] [place] [address] PhysicianDermatology07/09/21Team MemberRelationshipSpecialtyStart DateEnd Date Victoriano Chandler MD [address] [place] [address] [place] [address] PhysicianDermatology07/09/21 Team Status: Inactive Member Role Status Dates Lizbeth Penaloza DNP Primary Care Provider Active Giovanni Romero ProviderActive Team Status: Active Member Role Status Dates Lizbeth Penaloza DNP Primary Care Provider Active Jun España MDAttdandre ProviderActiveMelissa, TimesReferring Provider Active Team Status: Active Member Role Status Dates Lizbeth Penaloza DNP Primary Care Provider Active Team MemberRelationshipSpecialtyStart DateEnd Date Victoriano Chandler MD [address] [place] [address] [place] [address] PhysicianDermatology07/09/21 TimesYoselin MD [address] [place] [address] PhysicianColon & Rectal Surgery08/13/21Team MemberRelationshipSpecialtyStart Date End Date Victoriano Chandler MD [address] [place] [address] [place] [address] PhysicianDermatology07/09/21 TimesYoselin MD [address] [place] [address] PhysicianColon & Rectal Surgery08/13/21Team MemberRelationshipSpecialtyStart Date End Date Victoriano Chandler MD [address] [place] [address] [place] [address] PhysicianDermatology07/09/21 Times, Yoselin Ojeda MD [address] [place] [address] PhysicianColon & Rectal Surgery08/13/21Team MemberRelationshipSpecialtyStart Date End Date Victoriano Chandler MD [address] [place] [address] [place] [address] PhysicianDermatology07/09/21 Times, Yoselin Ojeda MD [address] [place] [address] PhysicianColon & Rectal Surgery08/13/21Team MemberRelationshipSpecialtyStart Date End Date Victoriano Chandler MD [address] [place] [address] [place] [address] PhysicianDermatology07/09/21 TimesYoselin MD [address] [place] [address] PhysicianColon & Rectal Surgery08/13/21Team MemberRelationshipSpecialtyStart Date End Date Victoriano Chandler MD [address] [place] [address] [place] [address] PhysicianDermatology07/09/21 Times, Yoselin Ojeda MD [address] [place] [address] PhysicianColon & Rectal Surgery08/13/21Team MemberRelationshipSpecialtyStart Date End Date Victoriano Chandler MD [address] [place] [address] [place] [address] PhysicianDermatology07/09/21 Yoselin Padron MD [address] [place] [address] PhysicianColon & Rectal Surgery08/13/21Team MemberRelationshipSpecialtyStart Date End Date Victoriano Chandler MD [address] [place] [address] [place] [address] PhysicianDermatology07/09/21 TimesYoselin MD [address] [place] [address] PhysicianColon & Rectal Surgery08/13/21Team MemberRelationshipSpecialtyStart Date End Date Victoriano Chandler MD [address] [place] [address] [place] [address] PhysicianDermatology07/09/21 Yoselin Padron MD [address] [place] [address] PhysicianColon & Rectal Surgery08/13/21Team MemberRelationshipSpecialtyStart Date End Date Victoriano Chandler MD [address] [place] [address] [place] [address] PhysicianDermatology07/09/21 Yoselin Padron MD [address] [place] [address] PhysicianColon & Rectal Surgery08/13/21Team MemberRelationshipSpecialtyStart Date End Date Victoriano Chandler MD [address] [place] [address] [place] [address] PhysicianDermatology07/09/21 Yoselin Padron MD [address] [place] [address] PhysicianColon & Rectal Surgery08/13/21Team MemberRelationshipSpecialtyStart Date End Date Victoriano Chandler MD [address] [place] [address] [place] [address] PhysicianDermatology07/09/21 Yoselin Padron MD [address] [place] [address] PhysicianColon & Rectal Surgery08/13/21 Mahesh Ramos MD, PhD [address] [place] [address] PhysicianRadiation Oncology10/07/22 Camron Roque, PharmD [address] [place] [address] [place] [address] PharmacistPharmacology and Toxicology10/11/22 Naheed Vinson, Poppy [address] [place] [address] [place] [address] TechPharmacology and Toxicology10/11/22Team MemberRelationshipSpecialtyStart Date End Date Victoriano Chandler MD [address] [place] [address] [place] [address] PhysicianDermatology07/09/21 Times, Yoselin Ojeda MD [address] [place] [address] PhysicianColon & Rectal Surgery08/13/21 Mahesh Ramos MD, PhD [address] [place] [address] PhysicianRadiation Oncology10/07/22 Camron Roque, PharmD [address] [place] [address] [place] [address] PharmacistPharmacology and Toxicology10/11/22 Naheed Vinson, Poppy [address] [place] [address] [place] [address] TechPharmacology and Toxicology Amber Barakat CPhT TechPharmacology and Toxicology10/12/22Team MemberRelationshipSpecialtyStart Date End Date Victoriano Chandler MD [address] [place] [address] [place] [address] PhysicianDermatology07/09/21 Times, Yoselin Ojeda MD [address] [place] [address] PhysicianColon & Rectal Surgery08/13/21 Mahesh Ramos MD, PhD [address] [place] [address] PhysicianRadiation Oncology10/07/22 Camron Roque, PharmD [address] [place] [address] [place] [address] PharmacistPharmacology and Toxicology10/11/22 Amber Barakat, lead portfolio manager TechPharmacology and Toxicology10/12/22Team MemberRelationshipSpecialtyStart Date End Date Victoriano Chandler MD [address] [place] [address] [place] [address] PhysicianDermatology07/09/21 Yoselin Padron MD [address] [place] [address] PhysicianColon & Rectal Surgery08/13/21 Mahesh Ramos MD, PhD [address] [place] [address] PhysicianRadiation Oncology10/07/22 Camron Roque, PharmD [address] [place] [address] [place] [address] PharmacistPharmacology and Toxicology10/11/22 Amber Barakat, lead portfolio manager TechPharmacology and Toxicology10/12/22Team MemberRelationshipSpecialtyStart Date End Date Victoriano Chandler MD [address] [place] [address] [place] [address] PhysicianDermatology07/09/21 Times, Yoselin Ojeda MD [address] [place] [address] PhysicianColon & Rectal Surgery08/13/21 Mahesh Ramos MD, PhD [address] [place] [address] PhysicianRadiation Oncology10/07/22 Camron Roque, PharmD [address] [place] [address] [place] [address] PharmacistPharmacology and Toxicology10/11/22 Amber Barakat CPhT TechPharmacology and Toxicology10/12/22Team MemberRelationshipSpecialtyStart Date End Date Victoriano Chandler MD [address] [place] [address] [place] [address] PhysicianDermatology07/09/21 Times, Yoselin Ojeda MD [address] [place] [address] PhysicianColon & Rectal Surgery08/13/21 Mahesh Ramos MD, PhD [address] [place] [address] PhysicianRadiation Oncology10/07/22 Camron Roque, PharmD [address] [place] [address] [place] [address] PharmacistPharmacology and Toxicology10/11/22 Amber Barakat CPhT TechPharmacology and Toxicology10/12/22 Gabby Giles CPhT [address] [place] [address] [place] [address] Medication Access SpecialistPharmacology and Toxicology10/27/22Team Member RelationshipSpecialtyStart DateEnd Date Victoriano Chandler MD [address] [place] [address] [place] [address] PhysicianDermatology07/09/21 Vito, Yoselin Ojeda MD [address] [place] [address] PhysicianColon & Rectal Surgery08/13/21 Mahesh Ramos MD, PhD [address] [place] [address] PhysicianRadiation Oncology10/07/22 Camron Roque, PharmD [address] [place] [address] [place] [address] PharmacistPharmacology and Toxicology10/11/22 Amber Barakat CPhT TechPharmacology and Toxicology10/12/22 Gabby Giles CPhT [address] [place] [address] [place] [address] Medication Access SpecialistPharmacology and Toxicology10/27/22Team Member RelationshipSpecialtyStart DateEnd Date Victoriano Chandler MD [address] [place] [address] [place] [address] PhysicianDermatology07/09/21 Vito, Yoselin Ojeda MD [address] [place] [address] PhysicianColon & Rectal Surgery08/13/21 Mahesh Ramos MD, PhD [address] [place] [address] PhysicianRadiation Oncology10/07/22 Camron Roque, PharmD [address] [place] [address] [place] [address] PharmacistPharmacology and Toxicology10/11/22 Amber Barakat CPhT TechPharmacology and Toxicology10/12/22 Gabby Giles CPhT [address] [place] [address] [place] [address] Medication Access SpecialistPharmacology and Toxicology10/27/22Team Member RelationshipSpecialtyStart DateEnd Date Victoriano Chandler MD [address] [place] [address] [place] [address] PhysicianDermatology07/09/21 Times, Yoselin Ojeda MD [address] [place] [address] 73145 PhysicianColon & Rectal Surgery08/13/21 Mahesh Ramos MD, PhD [address] [place] [address] 49403 PhysicianRadiation Oncology10/07/22 Camron Roque, PharmD [address] [place] [address] [place] [address] PharmacistPharmacology and Toxicology10/11/22 Amber Barakat CPhT TechPharmacology and Toxicology10/12/22 Gabby Giles CPhT [address] [place] [address] [place] [address] Medication Access SpecialistPharmacology and Toxicology10/27/22Team Member RelationshipSpecialtyStart DateEnd Date Victoriano Chandler MD [address] [place] [address] [place] [address] PhysicianDermatology07/09/21 Times, Yoselin Ojeda MD [address] [place] [address] 97065 PhysicianColon & Rectal Surgery08/13/21 Mahesh Ramos MD, PhD [address] [place] [address] 06908 PhysicianRadiation Oncology10/07/22 Camron Roque, PharmD [address] [place] [address] [place] [address] PharmacistPharmacology and Toxicology10/11/22 Amber Barakat CPhT TechPharmacology and Toxicology10/12/22 Gabby Giles CPhT [address] [place] [address] [place] [address] Medication Access SpecialistPharmacology and Toxicology10/27/22Team Member RelationshipSpecialtyStart DateEnd Date Victoriano Chandler MD [address] [place] [address] [place] [address] PhysicianDermatology07/09/21 Times, Yoselin Ojeda MD [address] [place] [address] 07489 PhysicianColon & Rectal Surgery08/13/21 Mahesh Ramos MD, PhD [address] [place] [address] 05120 PhysicianRadiation Oncology10/07/22 Camron Roque, GabeD [address] [place] [address] [address] [place] [phone] PharmacistPharmacology and Toxicology10/11/22 Amber Barakat CPhT TechPharmacology and Toxicology10/12/22 Gabby Giles CPhT [address] [place] [address] [place] [address] Medication Access SpecialistPharmacology and Toxicology10/27/22 Dana Ordonez APRN-[facility] [address] [place] [address] [place] [address] APNHematology/Oncology11/11/22Team MemberRelationshipSpecialtyStart DateEnd Date Victoriano Chandler MD [address] [place] [address] [place] [phone] PhysicianDermatology07/09/21 Times, Yoselin Ojeda MD [address] [place] [address] PhysicianColon & Rectal Surgery08/13/21 Mahesh Ramos MD, PhD [address] [place] [address] PhysicianRadiation Oncology10/07/22 Camron Roque, GabeD [address] [place] [address] [place] [address] PharmacistPharmacology and Toxicology10/11/22 Amber Barakat CPhT TechPharmacology and Toxicology10/12/22 Gabby Giles CPhT [address] [place] [address] [place] [address] Medication Access SpecialistPharmacology and Toxicology10/27/22 Dana Ordonez APRN-PODIATRIST ASSISTANT [address] [place] [address] [place] [address] APNHematology/Oncology11/11/22Team MemberRelationshipSpecialtyStart DateEnd Date Victoriano Chandler MD [address] [place] [address] [place] [address] PhysicianDermatology07/09/21 Times, Yoselin Ojeda MD [address] [place] [address] 94206 PhysicianColon & Rectal Surgery08/13/21 Mahesh Ramos MD, PhD [address] [place] [address] 49516 PhysicianRadiation Oncology10/07/22 Camron Roque, GabeD [address] [place] [address] [place] [address] PharmacistPharmacology and Toxicology10/11/22 Amber Barakat CPhT TechPharmacology and Toxicology10/12/22 Gabby Giles CPhT [address] [place] [address] [place] [address] Medication Access SpecialistPharmacology and Toxicology10/27/22 Dana Ordonez APRN-CNP [address] [place] [address] [place] [address] APNHematology/Oncology11/11/22Team MemberRelationshipSpecialtyStart DateEnd Date Victoriano Chandler MD [address] [place] [address] [place] [address] PhysicianDermatology07/09/21 Yoselin Padron MD [address] [place] [address] 12353 PhysicianColon & Rectal Surgery08/13/21 Mahesh Ramos MD, PhD [address] [place] [address] 19137 PhysicianRadiation Oncology10/07/22 Camron Roque, GabeD [address] [place] [address] [place] [address] PharmacistPharmacology and Toxicology10/11/22 Amber Barakat CPhT TechPharmacology and Toxicology10/12/22 Gabby Giles CPhT [address] [place] [address] [place] [address] Medication Access SpecialistPharmacology and Toxicology10/27/22 Dana Ordonez, [employer] QUALITY TECHNICIAN-PODIATRIST ASSISTANT [address] [place] [address] [place] [address] APNHematology/Oncology11/11/22Team MemberRelationshipSpecialtyStart DateEnd Date Victoriano Chandler MD [address] [place] [address] [place] [address] PhysicianDermatology07/09/21 Yoselin Padron MD [address] [place] [address] 52280 PhysicianColon & Rectal Surgery08/13/21 Mahesh Ramos MD, PhD [address] [place] [address] 36862 PhysicianRadiation Oncology10/07/22 Camron Roque, PharmD [address] [place] [address] [place] [address] PharmacistPharmacology and Toxicology10/11/22 Amber Barakat CPhT TechPharmacology and Toxicology10/12/22 Gabby Giles CPhT [address] [place] [address] [place] [address] Medication Access SpecialistPharmacology and Toxicology10/27/22 Dana Ordonez, [employer] QUALITY TECHNICIAN-PODIATRIST ASSISTANT [address] [place] [address] [place] [address] APNHematology/Oncology11/11/22Team MemberRelationshipSpecialtyStart DateEnd Date Victoriano Chandler MD [address] [place] [address] [place] [address] PhysicianDermatology07/09/21 Times, Yoselin Ojeda MD [address] [place] [address] 84392 PhysicianColon & Rectal Surgery08/13/21 Mahesh Ramos MD, PhD [address] [place] [address] 23907 PhysicianRadiation Oncology10/07/22 Camron Roque, PharmD [address] [place] [address] [place] [address] PharmacistPharmacology and Toxicology10/11/22 Amber Barakat CPhT TechPharmacology and Toxicology10/12/22 Gabby Giles CPhT [address] [place] [address] [place] [address] Medication Access SpecialistPharmacology and Toxicology10/27/22 Dana Ordonez APRN-PODIATRIST ASSISTANT [address] [place] [address] [place] [address] APNHematology/Oncology11/11/22Team MemberRelationshipSpecialtyStart DateEnd Date Victoriano Chandler MD [address] [place] [address] [address] [place] [phone] PhysicianDermatology07/09/21 Times, Yoselin Ojeda MD [address] [place] [address] PhysicianColon & Rectal Surgery08/13/21 Mahesh Ramos MD, PhD [address] [place] [address] 97577 PhysicianRadiation Oncology10/07/22 Camron Roque, GabeD [address] [place] [address] [place] [address] PharmacistPharmacology and Toxicology10/11/22 Amber Barakat CPhT TechPharmacology and Toxicology10/12/22 Gabby Giles CPhT [address] [place] [address] [place] [address] Medication Access SpecialistPharmacology and Toxicology10/27/22 Dana Ordonez APRN-PODIATRIST ASSISTANT [address] [place] [address] [place] [address] APNHematology/Oncology11/11/22Team MemberRelationshipSpecialtyStart DateEnd Date Victoriano Chandler MD [address] [place] [address] [place] [address] PhysicianDermatology07/09/21 Times, Yoselin Ojeda MD [address] [place] [address] PhysicianColon & Rectal Surgery08/13/21 Mahesh Ramos MD, PhD [address] [place] [address] PhysicianRadiation Oncology10/07/22 Camron Roque, GabeD [address] [place] [address] [place] [address] PharmacistPharmacology and Toxicology10/11/22 Amber Barakat CPhT TechPharmacology and Toxicology10/12/22 Gabby Giles CPhT [address] [place] [address] [place] [address] Medication Access SpecialistPharmacology and Toxicology10/27/22 Dana Ordonez, [employer] QUALITY TECHNICIAN-PODIATRIST ASSISTANT [address] [place] [address] [address] [place] [phone] APNHematology/Oncology11/11/22Team MemberRelationshipSpecialtyStart DateEnd Date Victoriano Chandler MD [address] [place] [address] [address] [place] [phone] PhysicianDermatology07/09/21 Times, Yoselin Ojeda MD [address] [place] [address] 38004 PhysicianColon & Rectal Surgery08/13/21 Mahesh Ramos MD, PhD [address] [place] [address] 89466 PhysicianRadiation Oncology10/07/22 Camron Roque, PharmD [address] [place] [address] [place] [address] PharmacistPharmacology and Toxicology10/11/22 Amber Barakat CPhT TechPharmacology and Toxicology10/12/22 Gabby Giles CPhT [address] [place] [address] [place] [address] Medication Access SpecialistPharmacology and Toxicology10/27/22 Dana Ordonez, [employer] QUALITY TECHNICIAN-PODIATRIST ASSISTANT [address] [place] [address] [place] [address] APNHematology/Oncology11/11/22Team MemberRelationshipSpecialtyStart DateEnd Date Victoriano Chandler MD [address] [place] [address] [place] [address] PhysicianDermatology07/09/21 Yoselin Padron MD [address] [place] [address] 67137 PhysicianColon & Rectal Surgery08/13/21 Mahesh Ramos MD, PhD [address] [place] [address] 71857 PhysicianRadiation Oncology10/07/22 Camron Roque, PharmD [address] [place] [address] [place] [address] PharmacistPharmacology and Toxicology10/11/22 Amber Barakat CPhT TechPharmacology and Toxicology10/12/22 Gabby Giles CPhT [address] [place] [address] [place] [address] Medication Access SpecialistPharmacology and Toxicology10/27/22 Dana Ordonez, [employer] QUALITY TECHNICIAN-PODIATRIST ASSISTANT [address] [place] [address] [place] [address] APNHematology/Oncology11/11/22Team MemberRelationshipSpecialtyStart DateEnd Date Victoriano Chandler MD [address] [place] [address] [address] [place] [phone] PhysicianDermatology07/09/21 Times, Yoselin Ojeda MD [address] [place] [address] 16698 PhysicianColon & Rectal Surgery08/13/21 Mahesh Ramos MD, PhD [address] [place] [address] 19951 PhysicianRadiation Oncology10/07/22 Camron Roque, GabeD [address] [place] [address] [place] [address] PharmacistPharmacology and Toxicology10/11/22 Amber Barakat CPhT TechPharmacology and Toxicology10/12/22 Gabby Giles CPhT [address] [place] [address] [place] [address] Medication Access SpecialistPharmacology and Toxicology10/27/22 Dana Ordonez APRN-PODIATRIST ASSISTANT [address] [place] [address] [place] [address] APNHematology/Oncology11/11/22Team MemberRelationshipSpecialtyStart DateEnd Date Victoriano Chandler MD [address] [place] [address] [place] [address] PhysicianDermatology07/09/21 Times, Yoselin Ojeda MD [address] [place] [address] 48568 PhysicianColon & Rectal Surgery08/13/21 Mahesh Ramos MD, PhD [address] [place] [address] PhysicianRadiation Oncology10/07/22 Camron Roque, GabeD [address] [place] [address] [place] [address] PharmacistPharmacology and Toxicology10/11/22 Amber Barakat CPhT TechPharmacology and Toxicology10/12/22 Gabby Giles CPhT [address] [place] [address] [place] [address] Medication Access SpecialistPharmacology and Toxicology10/27/22 Dana Ordonez APRN-CNP [address] [place] [address] [place] [address] APNHematology/Oncology11/11/22Team MemberRelationshipSpecialtyStart DateEnd Date Victoriano Chandler MD [address] [place] [address] [place] [address] PhysicianDermatology07/09/21 Vito, Yoselin Ojeda MD [address] [place] [address] 62271 PhysicianColon & Rectal Surgery08/13/21 Mahesh Ramos MD, PhD [address] [place] [address] 11730 PhysicianRadiation Oncology10/07/22 Camron Rouqe, PharmD [address] [place] [address] [place] [address] PharmacistPharmacology and Toxicology10/11/22 Amber Barakat CPhT TechPharmacology and Toxicology10/12/22 Gabby Giles CPhT [address] [place] [address] [place] [address] Medication Access SpecialistPharmacology and Toxicology10/27/22 Dana Ordonez APRN-PODIATRIST ASSISTANT [address] [place] [address] [place] [address] APNHematology/Oncology11/11/22Team MemberRelationshipSpecialtyStart DateEnd Date Victoriano Chandler MD [address] [place] [address] [place] [address] PhysicianDermatology07/09/21 Vito, Yoselin Ojeda MD [address] [place] [address] 80516 PhysicianColon & Rectal Surgery08/13/21 Mahesh Ramos MD, PhD [address] [place] [address] 22788 PhysicianRadiation Oncology10/07/22 Camron Roque, Jeimy [address] [place] [address] [place] [address] PharmacistPharmacology and Toxicology10/11/22 Amber Barakat CPhT TechPharmacology and Toxicology10/12/22 Gabby Giles CPhT [address] [place] [address] [place] [address] Medication Access SpecialistPharmacology and Toxicology10/27/22 Dana Ordonez APRN-PODIATRIST ASSISTANT [address] [place] [address] [place] [address] APNHematology/Oncology11/11/22Team MemberRelationshipSpecialtyStart DateEnd Date Victoriano Chandler MD [address] [place] [address] [place] [address] PhysicianDermatology07/09/21 Yoselin Padron MD [address] [place] [address] 96824 PhysicianColon & Rectal Surgery08/13/21 Mahesh Ramos MD, PhD [address] [place] [address] 12351 PhysicianRadiation Oncology10/07/22 Camron Roque, GabeD [address] [place] [address] [place] [address] PharmacistPharmacology and Toxicology10/11/2310 Amber Barakat CPhT TechPharmacology and Toxicology10/12/2310 Gabby Giles CPhT [address] [place] [address] [place] [address] Medication Access SpecialistPharmacology and Toxicology10/27/2310 Dana Ordonez APRN-PODIATRIST ASSISTANT [address] [place] [address] [place] [address] APNHematology/Oncology11/11/22Team MemberRelationshipSpecialtyStart DateEnd Date Victoriano Chandler MD [address] [place] [address] [place] [address] PhysicianDermatology07/09/21 Times, Yoselin Ojeda MD [address] [place] [address] 84439 PhysicianColon & Rectal Surgery08/13/21 Mahesh Ramos MD, PhD [address] [place] [address] 10636 PhysicianRadiation Oncology10/07/22 Camron Roque, GabeD [address] [place] [address] [place] [address] PharmacistPharmacology and Toxicology10/11/2310 Amber Barakat CPhT TechPharmacology and Toxicology10/12/2310 Gabby Giles CPhT [address] [place] [address] [place] [address] Medication Access SpecialistPharmacology and Toxicology10/27/2310 Dana Ordonez APRN-PODIATRIST ASSISTANT [address] [place] [address] [place] [address] APNHematology/Oncology11/11/22Team MemberRelationshipSpecialtyStart DateEnd Date Victoriano Chandler MD [address] [place] [address] [place] [address] PhysicianDermatology07/09/21 Vito, Yoselin Ojeda MD [address] [place] [address] 38979 PhysicianColon & Rectal Surgery08/13/21 Mahesh Ramos MD, PhD [address] [place] [address] 62356 PhysicianRadiation Oncology10/07/22 Dana Ordonez APRN-PODIATRIST ASSISTANT [address] [place] [address] [place] [address] APNHematology/Oncology11/11/22Team MemberRelationshipSpecialtyStart DateEnd Date Victoriano Chandler MD [address] [place] [address] [place] [address] PhysicianDermatology07/09/21 Vito, Yoselin Ojeda MD [address] [place] [address] 32020 PhysicianColon & Rectal Surgery08/13/21 Mahesh Ramos MD, PhD [address] [place] [address] 26965 PhysicianRadiation Oncology10/07/22 Dana Ordonez APRN-PODIATRIST ASSISTANT [address] [place] [address] [place] [address] APNHematology/Oncology11/11/22Team MemberRelationshipSpecialtyStart DateEnd Date Victoriano Chandler MD [address] [facility] [place], [place] [id number] PhysicianDermatology07/09/21 Times, Yoselin Ojeda MD [address] [place] [address] PhysicianColon & Rectal Surgery08/13/21 Mahesh Ramos MD, PhD [address] [place] [address] PhysicianRadiation Oncology10/07/22 Dana Ordonez, [employer] QUALITY TECHNICIAN-PODIATRIST ASSISTANT [address] [place] [address] [place] [address] APNHematology/Oncology11/11/22 Team Status: Inactive Member Role Status Dates Chey Infante DO Attending Provider Active Start: October 24, 2023 End: October 24, 2023Team MemberRelationshipSpecialtyStart DateEnd Date Gio Mathews DO [address], [place] [address] PCP - GeneralFamily Medicine08/09/23Team MemberRelationshipSpecialtyStart DateEnd Date Gio Mathews DO [address], [place] [address] PCP - GeneralFamily Medicine08/09/23Team MemberRelationshipSpecialtyStart DateEnd Date Gio Mathews DO [address], [place] [address] PCP - GeneralFamily Medicine08/09/23Team MemberRelationshipSpecialtyStart DateEnd Date Rocio Gio MianDO [address], [place] [address] PCP - Generalmily Medicine08/09/23Team MemberRelationshipSpecialtyStart DateEnd Date Rocio Gio Pappas DO [address] [place] [address] PCP - Generalmily Medicine08/09/23Team MemberRelationshipSpecialtyStart DateEnd Date Gio Mathews DO [address], [place] [address] [facility]Team MemberRelationshipSpecialtyStart DateEnd Date Gio Mathews DO [address] [place] [address] PCP - Generalmily Medicine08/09/23Team MemberRelationshipSpecialtyStart DateEnd Date Gio Mathews DO [address] [place] [address] PCP - Generalmily Medicine08/09/23Team MemberRelationshipSpecialtyStart DateEnd Date Gio Mathews DO [address] [place] [address] PCP - Generalmily Medicine08/09/23Team MemberRelationshipSpecialtyStart DateEnd Date Gio Mathews DO [address], [place] [address] PCP - GeneralFamily Medicine08/09/23Team MemberRelationshipSpecialtyStart DateEnd Date Gio Mathews DO [address], [place] [address] PCP - Generalmily Medicine08/09/23Team MemberRelationshipSpecialtyStart DateEnd Date Gio Mathews DO [address], [place] [address] PCP - Generalmily Medicine08/09/23Team MemberRelationshipSpecialtyStart DateEnd Date iGo Mathews DO [address], [place] [address] PCP - Generalmily Medicine08/09/23Team MemberRelationshipSpecialtyStart DateEnd Date Gio Mathews DO [address], [place] [address] PCP - GeneralFamily Medicine08/09/23Team MemberRelationshipSpecialtyStart DateEnd Date Gio Mathews DO [address], [place] [address] PCP - GeneralFamily Medicine08/09/23Team MemberRelationshipSpecialtyStart DateEnd Date Gio Mathews DO [address], [place] [address] [facility]Team MemberRelationshipSpecialtyStart DateEnd Date Gio Mathews DO [address], [place] [address] [facility]/23Team MemberRelationshipSpecialtyStart DateEnd Date Gio Mathews DO [address], [place] [address] PCP - [facility] Medicine08/09/23Team MemberRelationshipSpecialtyStart DateEnd Date Victoriano Chandler MD [address] [facility] [place] [address] PhysicianDermatology07/09/21 Times, Yoselin Ojeda MD [address] [place] [address] PhysicianColon & Rectal Surgery08/13/21 Mahesh Ramos MD, PhD [address] [place] [address] PhysicianRadiation Oncology10/07/22 Dana Ordonez, [employer] QUALITY TECHNICIAN-PODIATRIST ASSISTANT [address] [facility] [place] [address] APNHematology/Oncology11/11/22Team MemberRelationshipSpecialtyStart DateEnd Date Gio Mathews DO [address], [place] [address] PCP - GeneralFaialy Medicine08/09/23 Scheduled Active and Recently Administ ered Medications (unrecognized section and content) Medication Order/ heparin (porcine) 5,000 units/mL injection (COMPLETED) 5,000 Units, Subcutaneous, ONCE, 1 dose, On Sun07/19/21 at 1000, Pre-op * 0952 (Given - Provider: Cindy Ham RN) Medication Order// sodium chloride 0.9 % iv infusion Intravenous, at 50 mL/hr, CONTINUOUS, Starting on Sun07/19/21 at 1000, Until Discontinued * 1000 (Due) Medication Order/ bupivacaine (MARCAINE) 20 mL, lidocaine (XYLOCAINE) 1 % 20 mL, dose administered = 33 mL given 40 mL sc injection (CANCELED) PRN, Starting on Sun07/19/21 at 1112, Until Sun07/19/21 at 1112 * 1112 (Given - Provider: Yoselin Padron MD) HYDROmorphone (DILAUDID) 0.2 MG/ML [...] doses, Starting on Sun07/19/21 at 1030, Until [facility] 07/20/21 at 2359, Severe Pain (pain score [...] medication administration and blood draw, PACU Now Medication Order10/31//// acetaminophen (TYLENOL) tablet (COMPLETED) 650 mg, Oral, ONCE, 1 dose, On Sun11/01/22 at 1800 * 1727 (Given - Provider: Archana Albarran RN) cefepime (MAXIPIME) 2-5 GM-%(50ML) in dextrose 5% 50 mL ivpb 2,000 mg, Intravenous, EVERY 12 HOURS ANTIBIOTIC, First dose on Sun10/31/22 at 2100, Until Discontinued * 0029 (IV New Bag - Provider: Frank Koo RN) * 1040 (IV New Bag - Provider: Archana Albarran RN) * 214 (IV New Bag - Provider: Frank Koo RN) * 1051 (IV New Bag - Provider: Jacques Child RN) * 2200 (Due) docusate sodium (COLACE) capsule 100 mg, Oral, 2 TIMES DAILY, First dose on Sun10/31/22 at 2100, Until Discontinued * 204 (Given - Provider: Frank Koo RN) * 0839 (Given - Provider: Archana Albarran RN) * 214 (Hold/Not Given - Provider: Frank Hanane, RN - Reason: Patient refused) * 0900 (Hold/Not Given - Provider: Jacques Child RN - Reason: Patient refused) * 2099 (Due) famotidine (PEPCID) tablet 20 mg, Oral, DAILY, First dose on Sun10/31/22 at 2100, Until Discontinued * 2044 (Given - Provider: Frank Koo RN) * 0839 (Given - Provider: Archana Albarran RN) * 0825 (Given - Provider: Jacques Child RN) magnesium sulfate 4 GM/100ML in 100 mL ivpb (COMPLETED) 4,000 mg, Intravenous, ONCE, 1 dose, On Sun10/31/22 at 2100 * 2044 (IV New Bag - Provider: Frank Koo RN) nicotine (NICODERM CQ) 14 mg/24HR patch 14 mg, Transdermal, DAILY, First dose on Sun11/01/22 at 0930, Until Discontinued * 0913 (Patch Applied - Provider: Archana Albarran RN) * 0825 (Patch Removal - Provider: Jacques Child RN) * 0827 (Patch Applied - Provider: Jacques Child RN) Normal consistency supplement (CANCELED) Oral, 2 TIMES DAILY WITH MEALS, First dose on Sun11/01/22 at 1700, Until Discontinued, Normal Consistency Supplement: Magic Cup * 1700 (Given - Provider: Archana Albarran RN) Normal consistency supplement Oral, 3 TIMES DAILY WITH MEALS, First dose (after last modification) on Sun11/02/22 at 0800, Until Discontinued, Normal Consistency Supplement: Magic Cup * 0800 (Given - Provider: Jacques Child RN) * 1200 (Given - Provider: Jacques Child RN) * 1700 (Due) sertraline (ZOLOFT) tablet 50 mg, Oral, DAILY, First dose on Sun10/31/22 at 2100, Until Discontinued * 2044 (Given - Provider: Frank Koo RN) * 0839 (Given - Provider: Archana Albarran RN) * 0825 (Given - Provider: Jacques Child RN) umeclidinium (INCRUSE ELLIPTA) 62.5 MCG/ACT inhalation blister 1 Puff, Inhalation, DAILY RT, First dose on Sun10/31/22 at 2100, Until Discontinued * 2099 (Hold/Not Given - Provider: Jose Roberto Nice, RT - Reason: Medication unavailable) * 0800 (Hold/Not Given - Provider: Jessenia Rosenthal - Reason: Patient refused - Comment: pt states she does not use it at home) * 0810 (Given - Provider: Lizbeth Loera, RT) vancomycin (VANCOCIN) 1,500 mg/300 mL (ROOM TEMP PREMIX) (COMPLETED) 1,500 mg, Intravenous, ONCE, 1 dose, On Sun10/31/22 at 2130 * 205 (IV New Bag - Provider: Frank Koo RN) vancomycin (VANCOCIN) 750 mg/150 mL iv soln (ROOM TEMP PREMIX) (CANCELED) 750 mg, Intravenous, EVERY 12 HOURS, First dose on Sun11/01/22 at 1100, Until Discontinued * 1038 (IV New Bag - Provider: Archana Albarran RN) * 232 (IV New Bag - Provider: Frank Koo RN) vancomycin lab draw (COMPLETED) Other, ONCE, 1 dose, On Sun11/01/22 at 0900 * 0900 (Given - Provider: Archana Albarrna RN) Medication Order// albuterol (PROVENTIL HFA) 108 (90 Base) MCG/ACT HFA inhaler 2 Puff, Inhalation, EVERY 4 HOURS PRN, Starting on Sun10/31/22 at 202, Until Discontinued, Wheezing aquaphor ointment Topical, 3 TIMES DAILY PRN, Starting on Sun11/01/22 at 1432, Until Discontinued, Dry Skin * 1553 (Given - Provider: Archana Albarran RN) HYDROmorphone HCl PF (DILAUDID) 1 MG/ML injection 1 mg, Intravenous Push, EVERY 3 HOURS PRN, Starting on Sun11/01/22 at 1046, Until Sun11/03/22 at 1045, Breakthrough Pain * 1147 (Given - Provider: Archana Albarran RN) hydrOXYzine (ATARAX) tablet 25 mg, Oral, EVERY 6 HOURS PRN, Starting on Sun10/31/22 at 202, Until Discontinued, Anxiety * 2054 (Given - Provider: Frank Koo RN) * 183 (Given - Provider: Archana Albarran RN) * 0530 (Given - Provider: Frank Koo RN) * 1203 (Given - Provider: Jacques Child, RN) lidocaine-prilocaine (E mLA) 2.5-2.5 % cream Topical, EVERY 4 HOURS PRN, Starting on Sun10/31/22 at 2026, Until Discontinued, rectal pain * 1553 (Given - Provider: Archana Albarran RN) loperamide (IMODIUM) capsule 2 mg, Oral, 4 TIMES DAILY PRN, Starting on Sun10/31/22 at 2028, Until Discontinued, Diarrhea ondansetron (ZOFRAN-ODT) disintegrating tablet 4 mg, Oral, EVERY 4 HOURS PRN, Starting on Sun10/31/22 at 2026, Until Discontinued, Nausea * 2054 (Given - Provider: Frank Koo RN) * 0208 (Given - Provider: Frank Koo RN) * 1147 (Given - Provider: Archana Albarran RN) * 2145 (Given - Provider: Frank Koo RN) * 0530 (Given - Provider: Frank Koo RN) * 1250 (Given - Provider: Jacques Child RN) oxyCODONE immediate release tablet (CANCELED) 5 mg, Oral, EVERY 4 HOURS PRN, Starting on Sun10/31/22 at 2027, Until Sun11/01/22 at 0626, Severe Pain (pain score 7,8,9,10) * 2054 (Given - Provider: Frank Koo RN) * 0208 (Given - Provider: Frank Koo RN) oxyCODONE immediate release tablet 5 mg, Oral, EVERY 4 HOURS PRN, Starting on Sun11/01/22 at 0625, Until Discontinued, Moderate Pain (pain score 4,5,6) * 1725 (Given - Provider: Archana Albarran RN) oxyCODONE immediate release tablet 10 mg, Oral, EVERY 4 HOURS PRN, Starting on Sun11/01/22 at 0625, Until Discontinued, Severe Pain (pain score 7,8,9,10) * 0839 (Given - Provider: Archana Albarran RN) * 2143 (Given - Provider: Frank Koo RN) * 0530 (Given - Provider: Frank Koo RN) Goals (unrecognized section and content) Goals may be documented in a n alternate section INFORMATION SOURCE (unrecogn ized section and content) DATE CREATED AUTHOR 12/03/2021 [facility] DATE CREATED AUTHOR AUTHOR'S ORGANIZ ATION 03/13/2022 [facility] DATE CREATED AUTHOR AUTHOR'S ORGANIZ ATION 07/27/2022 [facility] DATE CREATED AUTHOR AUTHOR'S ORGANIZ ATION 10/28/2023 [facility] DATE CREATED AUTHOR AUTHOR'S ORGANIZ ATION 03/22/2024 [facility] DATE CREATED AUTHOR AUTHOR'S ORGANIZ ATION 09/07/2024 [facility] DATE CREATED AUTHOR AUTHOR'S ORGANIZ ATION 11/29/2024 [facility] DATE CREATED AUTHOR AUTHOR'S ORGANIZ ATION 01/16/2025 [facility] FOR RECORDS PERTAINING TO PATIENTS WHO ARE [...] BE BASED ON THE PRIMARY CLINICAL RECORDS. [facility]. provides no warranty or guarantee of the accuracy or completeness of information in this document.
--- OUTSIDE RECORDS SUMMARY | 2025-04-07 09:59 | XMS_ITS | Clinical Summary ---
Author Organization [facility] Address [id number] [address] [place] [address] Care Team Providers Care Rug Clipper Name Role Phone Gio Chan DO Primary Care Provider + [phone] Allergies No known active allergies Medications MedicationSigDispense [...] MOUTH IN THE MORNING 135 tablet Discontinued(Reorder) hydrOXYzine (VISTARIL) 25 mg capsule Indications:AnxietyTAKE 1 CAPSULE BY MOUTH 3 TIMES A DAY NEEDED FOR ITCHING. 270 capsule 5105/14/2024Discontinued(Therapy completed) albuterol-budesonide (AIRSUPRA) 90-80 mcg/actuation HFA aerosol inhaler Inhale 2 puffs every 4 (four) hours as needed (wheeze). 10.7 g Discontinued(Cost of medication) Active Problems ProblemNoted DateDiagnosed DateRecurrent anal squamous cell vhbuhmarw39/03/2025 Thoracic aortic aneurysm without rupture, unspecified part06/09/2024 Assessment & Plan (07/03/2024 9:22 AM EDT): Surveillance imaging with a CT t in a year. Multiple joint pain10/30/2023History of pulmonary qvicbqdw21/02/2024epression 08/09/20238744Reraaihnuma97/02/2024nemia due to ulnjboossicv97/19/2023GERD (gastroesophageal reflux disease)Anxiety Encounters DateTypeDepartmentCare OywzDyemgwtsiec88/09/2025Orders Only [facility] [address] [place] [address] Gio Chan, DO Reactive airway disease without complication, unspecified asthma severity, unspecified whether persistent (Primary Dx)03/17/2025Telephone [facility] [address] [place] [address] Florecita Thomas, [facility] 03/17/2025Refill [facility] [address] [place] [address] Andrew Daniel, [facility] 03/14/2025Results Follow-Up [facility] [address] [place] [address] Gio Chan, DO Drug Screen, Urine03/13/2025 11:30 AM ESTOffice Visit [facility] [address] [place] [address] Gio Chan, DO Anxiety (Primary Dx); Medication management; Reactive airway disease without complication, unspecified asthma severity, unspecified whether udkqbjoick88/05/2300Ijulen50/26/1397Yyqyzp20/26/2025 Telephone [facility] [address] [place] [address] Bertha Solomon, [facility] 03/03/2025Refill [facility] [address] [place] [address] Gio Chan, DO 03/02/2025Telephone [facility] [address] [place] [address] Bertha Solomon, [facility] 02/27/2025Orders Only [facility] [address] [place] [address] Gio Chan, DO Risxqrm3202/26/2025Telephone [facility] [address] [place] [address] Bertha Solomon, [facility] 02/23/2025Refill [facility] [address] [place] [address] Gio Chan, DO 02/12/2025Refill [facility] [address] [place] [address] Gio Chan, DO Dnovwtp2802/09/2025Orders Only [facility] [address] [place] [address] Ref Prov, Not In System 01/14/2025 11:00 AM EDTOffice Visit [facility] [address] [place] [address] Gio Chan, DO Anxiety (Primary Dx); Depression, unspecified depression type; Seizure ([facility]); Gastroesophageal reflux disease, unspecified whether esophagitis present 01/14/2025Travelfrom Last 3 Months Immunizations ImmunizationAdministration DatesNext DueInfluenza, Trivalent, Adjuvanted 03/18/2024Td (adult), 5 Lf tetanus toxoid, preservative free, unpxlpbj75/14/2014 Family History Medical HistoryRelationNameCommentsHeart attackBrotherBobHypertensionBrotherBob Intracerebral hemorrhageBrotherBobfell and hit headCOPDFatherColon cancerFather Lung cancerFatherdied at age 84No Known NafsmvcoSzlloeeassgjnFATRSrmtwm36 EmphysemaMotherBreast cancerSister 1ShannonCOPDSister 1ShannonThyroid disease Sister 1ShannonBack ProblemsSister 2Mary Patfusion with cageHypertensionSister 2 Anay PatThyroid diseaseSister 2Mary PatNo Known ProblemsSister 3Gretchen DepressionSister 4GraceOD on street drugs-cocaine, EtOH and MJ with antidepressantsNo Known ProblemsSon 1No Known ProblemsSon 2RelationNameStatus CommentsBrotherBobDeceasedFatherDeceasedGranddaughterAliveMotherDeceasedSister 1 ShannonAliveSister 2Mary PatAliveSister 3GretchenAliveSister 4GraceDeceasedSon 1 AliveSon 2Alive Social History Tobacco UseTypesPacks/DayYears UsedDateSmoking Tobacco: VudmzgLtmvjsbxap666 Started: 1993Smokeless Tobacco: Never Tobacco Cessation:Counseling Given: Not Answered Alcohol UseStandard Drinks/WeekCommentsYes0 (1 standard drink = 0.6 oz pure alcohol)occassionallyAHC UtilitiesAnswerDate RecordedIn the past 12 months has the [employer], gas, oil, or water [employer] threatened to shut off services in your home?No03/18/2024Social Connection and Isolation PanelAnswerDate RecordedIn a typical week, how many times do you talk on the phone with family, friends, or neighbors?More than three times a week03/18/2024How often do you get together with friends or relatives?Once a week03/18/2024How often do you attend christianity or christianity services?Never12/10/2024Do you belong to any clubs or organizations such as christianity groups, unions, fraternal or athletic groups, or [...] more drinks on one occasion?Never03/18/2024HQ-2AnswerDate Recorded Total Wfyga42705/14/2024hildcareAnswerDate RecordedDo problems getting early childhood 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 make 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 work [...] InformationValueDate RecordedSex Assigned at BirthNot on fileLegal KpsQzuhzt22/04/2015 9:55 PM EDTGender IdentityNot on fileSexual OrientationNot on file Last Filed Vital Signs Vital SignReadingTime TakenCommentsBlood Xmeuiugc722/8403/13/2025 11:34 AM EST Ghifa358703/13/2025 11:34 AM XGOSgtlkctuhxe85.3 ??C (97.4 ??F)03/13/2025 11:34 AM ESTRespiratory Baht564105/14/2024 11:34 AM ESTOxygen Bbemctbxwt35%03/13/2025 11:34 AM ESTInhaled Oxygen Concentration--Xtpeju96.4 kg (157 lb 6.4 oz)03/13/2025 11:34 AM ECVLdjopd814.9 cm (6' 0.01 )03/13/2025 11:34 AM ESTBody Mass Index21.34 03/13/2025 11:34 AM EST Plan of Treatment DateTypeDepartmentCare Team (Latest Contact Info)Cikewjhprzb74/09/2026 11:00 AM EDTOffice Visit [facility] [address] [place] [address] Gio Chan, DO [address], [place] [address] Health MaintenanceDue DateLast DoneCommentsZoster (Shingles) Vaccine (1 of 2) 1977RSV ( or age 60+ yrs) (1 - Risk 50-74 years 1-dose series) 2008DTaP,Tdap and Td Vaccines (1 - Tdap)COVID-19 Vaccine (3 - Pfizer risk series)105/06/2020, 07/23/2020Mammogram 307/, 11/02/2021, 01/24/2014, Additional history existsMedicare Annual Wellness VisitInfluenza Ivemjac02 Postponed from 12/08/2024 (Patient Refused)Fall Risk Zxgjahgim44/08/2026 01/14/2025dult BMI Yzdpzihhn01Depression Rydviqsct95/05/2026 03/13/2025Tobacco Ejejufyzb29/7322Hjcqwpjlxlg61/19/202805/, 10/24/2023ap FjmtnDvczarjcbnpa80/25/2012 Medical Devices Not on file Procedures Procedure NamePriorityDate/TimeAssociated DiagnosisCommentsDRUG SCREEN, URINE Itmmqjr1203/13/2025 12:35 PM EST Anxiety Medication management HM DIABETES EYE LJBPLzrrwbu44/03/2025 11:59 AM ESTPROVATION COLONOSCOPYRoutine 08/25/2024 11:23 AM EDT from Last 3 Months or Most Recently Relevant to Health Maintenance Results * Drug Screen, Urine (03/13/2025 12:35 PM EST)ComponentValueRef RangeTest Method Analysis TimePerformed AtPathologist SignatureAMPHETAMINE/METHAMPNegative Oierplzw15/05/2025 6:07 PM [facility] AMPH/METH screening cut off = 1000 ng/mLCOCAINE METABOLITENegativeNegative 03/13/2025 6:07 PM [facility]:Cocaine screening cut off value = 300 ng/jUNQDIHCTTjaalbwwKtgcyizv18/05/2025 6:07 PM [facility]:Ecstasy screening cut off value = 500 ng/sRHSEMNIJLEKzjszwohJiisvwoi12/05/2025 6:07 PM [facility]:Methadone screening cut off value = 300 ng/mL.Opiates XxbyqfjrKmdwipsq54/05/2025 6:07 PM [facility] Comment: Opiates screening cut off value = 300 ng/mL This test is used for the detection of codeine, hydrocodone (>1000 ng/mL), morphine and hydromorphone (>900 ng/mL) in urine. YJYSHFRRQVzmhhzmmNjrmtvgm27/05/2025 6:07 PM [facility]Comment: Oxycodone screening cut off value = 300 ng/mL This test is used for the detection of oxycodone and oxymorphone in urine. DSSHUBKAECUNFWxwtdklzGfxidtjh97/05/2025 6:07 PM [facility]Comment:Phencyclidine screening cut off value = 25 ng/mLCANNABINOIDS AyovjvwgYfurxxib01/05/2025 6:07 PM [facility] Comment:Cannabinoids/THC screening cut off value = 50 ng/mLUrine Barbiturates VmnhmtazJoyvspam36/05/2025 6:07 PM [facility] Comment:Barbiturates screening cut off value = 200 ng/mLBENZODIAZEPINESNegative Vhowxmxj67/05/2025 6:07 PM [facility]: Benzodiazepines screening cut off value = 200 ng/mLSpecimen (Source)Anatomical Location / LateralityCollection Method / VolumeCollection TimeReceived TimeUrine 03/13/2025 12:35 PM EST03/13/2025 12:35 PM EST Narrative Authorizing ProviderResult TypeResult StatusDennis G Furlong DOURINE ORDERABLES Final ResultPerforming OrganizationAddressCity/State/ZIP CodePhone Number [facility] [address] [place] [address], * DIABETES EYE EXAM (02/09/2025 11:59 AM [...] in MyChart.* Authorizing ProviderResult TypeResult StatusMichael E Lopezillis DOIMG OR IMG ORDERABLESFinal Result from Last 3 Months or Most Recently Relevant to Health Maintenance Insurance Care Teams Team MemberRelationshipSpecialtyStart DateEnd Date Gio Chan DO [address] [place] [address] [facility]
--- OUTSIDE RECORDS SUMMARY | 2025-04-07 09:59 | XMS_ITS | Patient Health Record ---
Author Organization [facility] Address [address] [place] [address] Care Team Providers Care Sales Support Assistant Name Role Phone Ronenblane Jose Primary Care Provider Raquel Sheffield Unavailable [phone] Claritza Esteban Unavailable [phone] Maria R Crowder Unavailable [phone] Reason For Referral No Information Encounters Encounter Location Date Provider Diagnosis [facility] [address] [place] [address] 02/03/2025 Maria R Crowder [facility] [address] [place] [address]/14/2025 Maria R YiEncounter for dental examination and [...] Crowder, 02:00:00 PM, [address] [place], [address], Provider Name:Sultana Hernandez, 07/29/2025 03:30:00 PM, [address], [place], [address], Insurance Providers Payer Name Payer Address Payer Phone Subscriber Number Group Number Insured Name Patient Relationship to Insured Coverage Start Date Coverage End Date MEDICARE CGS 1 [facility] [place] [address] [id number] Juan MALDONADO - patient is the [id number] 2023 MED[address]ARE [address] [address] [place] [id number], KATHRYNSelf - patient is the [id number] 2023[facility] B[address]EF[facility] [address]SP[address] [address] [place], [place] [id number], KATHRYNSelf - patient is the [id number] 2023
== END 2025-04-07 09:54 | disposition home or self-care (01) ==
LOC: US 09:53
PROVIDERS: PCP Family Medicine; Visit Provider Internal Medicine Hematology & Oncology
DX: C21.0 Malignant neoplasm of anus, unspecified (principal); D64.9 Anemia, unspecified; D69.6 Thrombocytopenia, unspecified; K90.9 Intestinal malabsorption, unspecified; R87.89 Other abnormal findings in specimens from female genital organs
CPT/HCPCS: 76830